=== PATIENT | female | born 1955 | race Caucasian/White ===

== ENCOUNTER 2023-10-23 09:35 | Outpatient (OUT) | payer MEDICARE, OTHER, SELFPAY ==
--- NOTE | 2023-10-23 09:37 | MM_ITS ---
Patient Name: MALCOM KNOWLES MR#: [id number] : 1955 Exam Date: 10/23/2023 Ordering Doctor: DR. JOSE SNOW . RADIOLOGY REPORT PROCEDURE: MM SCREENING MAMMO BI COMPARISON: MG MAMM SCREEN 3D DORIE CAD, 10/11/2022. MG MAMM SCREEN 3D DORIE CAD, 10/09/2021. MG MAMM SCREEN DORIE W CAD, 10/06/2020. MG MAMM DORIE DIAG W CAD DIG, 08/17/2013. INDICATIONS: Screening Calculator Name NCI Breast Cancer Risk Assessment Tool 5 Year Breast Cancer Risk 1.50% Lifetime Breast Cancer Risk 4.50% Personal Breast Cancer No Personal Ovarian Cancer No Treatments Hysterectomy Family Cancers Father with prostate cancer at age 66. LOCATION: [facility] BREAST COMPOSITION: Scattered areas fibroglandular density. FINDINGS: DIAGNOSTIC CATEGORY 0--INCOMPLETE: NEED ADDITIONAL IMAGING EVALUATION. RIGHT BREAST: No significant suspicious finding. Stable slightly prominent subareolar ducts. No significant change has occurred. LEFT BREAST: Multiple new lobular/serpiginous opacities within the upper inner and upper outer quadrants, with the largest nodular area 1.0 cm in size. Spot magnification views and ultrasound evaluation recommended. RECOMMENDATIONS: ADDITIONAL MAMMOGRAPHIC VIEWS REQUIRED: LEFT BREAST - LEFT CRANIOCAUDAL SPOT MAGNIFICATION VIEW - LEFT OBLIQUE SPOT MAGNIFICATION VIEW - ULTRASOUND: LEFT BREAST PLEASE NOTE: A NORMAL MAMMOGRAM DOES NOT EXCLUDE THE POSSIBILITY OF BREAST CANCER. A CLINICALLY SUSPICIOUS PALPABLE LUMP SHOULD BE BIOPSIED. Dictated by: Toni Brady M.D. on 10/29/2023 at 12:37 Approved by: Toni Brady M.D. on 10/29/2023 at 12:43
== END 2023-10-23 09:36 | disposition home or self-care (01) ==
LOC: MAMMO 09:35
PROVIDERS: PCP Family Medicine; Visit Provider Family Medicine
DX: Z12.31 Encounter for screening mammogram for malignant neoplasm of breast (principal); Z80.42 Family history of malignant neoplasm of prostate
CPT/HCPCS: 77067

== ENCOUNTER 2023-11-21 14:01 | Outpatient (OUT) | payer MEDICARE, OTHER, SELFPAY ==
--- NOTE | 2023-11-21 14:05 | MM_ITS ---
Patient Name: MALCOM KNOWLES MR#: [id number] : 1955 Exam Date: 11/21/2023 Ordering Doctor: DR. JOSE SNOW . RADIOLOGY REPORT PROCEDURE: MM DIAGNOSTIC MAMMO UNILAT LT, 11/21/2023, 14:04 US BREAST LT LIMITED, 11/21/2023, 14:38 COMPARISON: MM SCREENING MAMMO BI, 10/23/2023. MG MAMM SCREEN 3D DORIE CAD, 10/11/2022. MG MAMM SCREEN 3D DORIE CAD, 10/09/2021. MG MAMM SCREEN DORIE W CAD, 10/06/2020. INDICATIONS: Abn Mammogram Calculator Name NCI Breast Cancer Risk Assessment Tool 5 Year Breast Cancer Risk 1.50% Lifetime Breast Cancer Risk 4.50% Personal Breast Cancer No Personal Ovarian Cancer No Treatments Hysterectomy Family Cancers Father with prostate cancer at age 66. LOCATION: [facility] BREAST COMPOSITION: Scattered areas fibroglandular density. FINDINGS: DIAGNOSTIC CATEGORY 3--PROBABLY BENIGN FINDING. THE FOLLOWING FINDING(S) HAS A HIGH PROBABILITY OF A BENIGN ETIOLOGY: LEFT BREAST: Spot magnification views demonstrate persistence of asymmetries within the anterior upper inner and upper outer quadrants. Ultrasound evaluation demonstrates collection of benign appearing cysts at the 10 o'clock position; largest is 7 millimeters. Short segment of slightly dilated duct at the 2 o'clock position without internal debris or mass. Follow-up mammography and ultrasound of left breast in 6 months is recommended to document stability. RECOMMENDATIONS: SHORT TERM FOLLOW-UP DIAGNOSTIC MAMMOGRAM LEFT BREAST IN 6 MONTHS. SHORT TERM FOLLOW-UP ULTRASOUND LEFT BREAST IN 6 MONTHS. PLEASE NOTE: A NORMAL MAMMOGRAM DOES NOT EXCLUDE THE POSSIBILITY OF BREAST CANCER. A CLINICALLY SUSPICIOUS PALPABLE LUMP SHOULD BE BIOPSIED. Dictated by: Toni Brady M.D. on 11/21/2023 at 15:25 Approved by: Toni Brady M.D. on 11/21/2023 at 15:31
--- OUTSIDE RECORDS SUMMARY | 2023-11-21 14:05 | XMS_ITS | CCD ---
Author Name Unknown Address [address] [place] [address] Organization [facility] Care Team Providers Care Pest Control Pilot Name Role Phone Dusty Walters Unavailable Unavailable Unavailable Chip Zaidi Unavailable Lizandro Martins Unavailable Selena, Dr. Dusty Zacarias Primary Care Unavailab Gadiel Maxwell Attending Unavailable Gadiel Merino Referring Unavailable WALTERS ., DR DUSTY Seals Attending Unavailable WALTERS ., DR DUSTY Seals Admitting Unavailable WALTERS ., DR DUSTY Seals Primary Care Unavailable WALTERS ., DR DUSTY Seals Consulting Unavailable WALTERS ., DR DUSTY Seals Primary Care Unavailable MISC, DR ROSAS Consulting Unavailable MISC, DR ROSAS Attending Unavailable MISC, DR ROSAS Admitting Unavailable WALTERS ., DR DUSTY Seals Attending Unavailable WALTERS ., DR DUSTY Seals Admitting Unavailable WALTERS ., DR DUSTY Seals Primary Care Unavailable WALTERS ., DR DUSTY Seals Consulting Unavailable WALTERS ., DR DUSTY Seals Attending Unavailable WALTERS ., DR DUSTY Seals Primary Care Unavailable WALTERS ., DR DUSTY Seals Consulting Unavailable WALTERS ., DR DUSTY Seals Admitting Unavailable WALTERS ., DR DUSTY Seals Attending Unavailable WALTERS ., DR DUSTY Seals Admitting Unavailable WALTERS ., DR DUSTY Seals Primary Care Unavailable MONSERRAT .CONNER Attending Unavailable WALTERS ., DR DUSTY Seals Primary Care Unavailable DEEPA .DONELL Consulting Unavailsharri GERMAN .CONNER Admitting Unavailable NIALL CELIS Consulting Unavailable FLORIN ZHONG Consulting Unavailable THONY JOHNSTON Consulting Unavailable WALTERS ., DR DUSTY Seals Primary Care Unavailable JN, DR ADAMS Montesinos Consulting Unavailable MARKER ., DR ZAPATA Attending Unavailable MARKER ., DR ZAPATA Admitting Unavailable MARKER ., DR ZAPATA Consulting Unavailable WALTERS ., DR DUSTY Seals Primary Care Unavailable ENID, DR AJ Montesinos Consulting Unavailable ROSSI, DR AJ Montesinos Attending Unavailable ROSSI, DR AJ Montesinos Admitting Unavailable THONY CLARK Consulting Unavailable WALTERS ., DR DUSTY Seals Primary Care Unavailable PAY ., DR NOBLE Attending Unavailable ROSSI, DR AJ Montesinos Consulting Unavailable PAY ., DR NOBLE Admitting Unavailable PATTIE ., OSMEL Consulting Unavailable HECTOR, AJ Attending Unavailable WALTERS ., DR DUSTY Seals Primary Care Unavailable BEJ, AJ Admitting Unavailable ZIEBER, DR ADAMS Montesinos Consulting Unavailable BEJ, AJ Consulting Unavailable MISC, DR ROSAS Consulting Unavailable MISC, DR ROSAS Attending Unavailable WALTERS ., DR DUSTY Seals Primary Care Unavailable MISC, DR ROSAS Admitting Unavailable ZIEBER, DR ADAMS Montesinos Consulting Unavailable WALTERS ., DR DUSTY Seals Consulting Unavailable WALTESR ., DR DUSTY Seals Attending Unavailable WALTERS ., DR DUSTY Seals Admitting Unavailable WALTERS ., DR DUSTY Seals Primary Care Unavailable GEYSER, DR NIALL Underwood Consulting Unavailable BEJ, AJ Admitting Unavailable WALTERS ., DR DUSTY Seals Primary Care Unavailable BEJ, AJ Consulting Unavailable BEJ, AJ Attending Unavailable Felix Easley Primary Care Physician Brigida George Unavailable Tanika Lopez Unavailable MD Dusty Walters Primary Care Provider MD Lizandro Martins Attending Provider DARRICK Pal Attending Provider [phone] Anjana Pal Unavailable Lizandro Martins Admitting Unavailable Lizandro Martins Attending Unavailable Dusty Walters Primary Care Unavailable Anjana Pal Admitting Unavailable Anjana Pal Attending Unavailable Dusty Walters Primary Care Unavailable Felix Easley Attending Unavailable VEDA WILLOUGHBY Attending Unavailab CHIP Burgess Referring Unavailable Magui Sam Attending Unavailable CHIP ZAIDI Referring Unavailable Felix Easley Attending Unavailable Felix Easley Admitting Unavailable Mariangel Campbell Admitting Unavailable Mariangel Campbell Attending Unavailable Felix Easley Attending Unavailable Mariangel Campbell Attending Unavailable Mariangel Campbell Attending Unavailable Allergies Allergy Classification Reported Allergen(s) Allergy Type Date of Onset Reaction(s) Facility (5 sources) Sulfonamides (Antibiotic); Translations: [Sulfa Drugs] Allergy to drug (finding) Unknown (qualifier value) [facility] (2 sources) FLU; Translations: [FLU] Allergy to drug (finding) [facility] 250 DO Work Phone: (9 sources) Sulfonamides (Antibiotic) Drug allergy Unknown [facility] [employer] Other (9 sources) Influenza Vac Recom CARREON Quad PF Drug allergy Unknown [facility] [employer] Other (2 sources) Sulfonamides (Antibiotic) Drug allergy (disorder) [facility] (2 sources) Flu Vaccine [id number] (3 yr +) Drug allergy (disorder) 01-18-20 16 [facility] (3 sources) Sulfonamides (Antibiotic); Translations: [Sulfa (Sulfonamide Antibiotics)] Allergy to substance 03-31-20 19 Rash [facility] (3 sources) Influenza Virus Vaccines; Translations: [Influenza Virus Vaccines] Allergy to substance 03-31-20 19 Hx. [place] ; told no flu vaccines [facility] (1 source) influenza A virus A//[id number] (H1N1) antigen / influenza A virus A//[id number] (H3N2) antigen / influenza B virus B/Winn antigen / influenza B virus B/ antigen; Translations: [influenza virus vaccine] Drug Allergy [facility] Comment on above: contraindicated due to timbo townsend (1 source) influenza virus vaccine, inactivated; Translations: [influenza virus vaccine, inactivated] Propensity to adverse reactions (disorder) [facility] Rep[facility] Medications Current Medications Medication Drug Class(es) Dates Sig (Normalized) Sig (Original) acetaminophen 500 mg oral tablet (18 sources) Start: 05-16-2023 take 2 tablets by mouth once daily acetaminophen 500 mg Tab 1,000 mg = 2 tab(s), Oral, Daily, Refills(s) 0 Start Date: 05/16/23 Status: Ordered Start: 05-16-2023 acetaminophen 500 mg Tab Refills(s) 0 Start Date: 05/16/23 Status: Ordered Start: 04-09-2019 take 325 mg by mouth every four hours Acetaminophen Active 325 MG PO Q4H 100 April 09, 2019 12:00am Start: 03-31-2019 End: 04-09-2019 take 650 mg by mouth every four hours Acetaminophen Active 650 MG PO Q4H 0 April 09, 2019 12:00am Start: 06-29-2018 End: 04-09-2019 take 1 tablet by mouth three times daily Acetaminophen (Tylenol Extra Strength) 500 mg Tablet Discontinued 500 MG PO Three times daily June 29, 2018 12:00am April 09, 2019 9:42am Start: 03-13-2018 End: 06-27-2018 take 325 mg by mouth every four hours Acetaminophen Discontinued 325 MG PO Q4H 100 March 13, 2018 12:00am June 27, 2018 10:38am Start: 03-13-2018 End: 06-27-2018 take 650 mg by mouth every four hours Acetaminophen Discontinued 650 MG PO Q4H 0 March 13, 2018 12:00am June 27, 2018 10:38am Start: 02-18-2018 End: 03-06-2018 take 2 tablets by mouth three times daily Acetaminophen (Tylenol Extra Strength) 500 mg Tablet Discontinued 2 TAB PO Three times daily February 18, 2018 12:00am March 06, 2018 12:28pm take 1 tablet by fermín th twice daily Acetaminophen 500 MG Oral Tablet Take 1 tablet twice daily Quantity: 0 Refills: 0 Ordered: 12-Mar-2022 DO Active acetaminophen 325 mg / oxyCODONE hydrochloride 5 mg oral tablet (12 sources) Opioid Agonist Start: 09-09-2023 take 1 tablet by mouth every six hours as needed for pain acetaminophen-oxycodone 325 mg-5 mg Tab 1 tab(s), Oral, q6hr, Refill(s) 0, as needed for pain Start Date: 09/09/23 Status: Ordered Start: 05-16-2023 take 1 tablet by fermín th every six hours for pain acetaminophen-oxycodone 300 mg-5 mg oral tablet 1 tab(s), Oral, q6hr for pain, Refill(s) 0 Start Date: 05/16/23 Status: Ordered Start: 12-25-2021 take 1 tablet by fermín th every six hours as needed oxyCODONE-Acetaminophen 5-325 MG Oral Tablet TAKE 1 TABLET BY MOUTH EVERY 6 HOURS NEEDED Quantity: 18 Refills: 0 Ordered: 25-Dec-2021 DO Start : 25-Dec-2021 Active Start: 03-06-2018 End: 06-27-2018 take 2 tablets by mouth every four hours Oxycodone-Acetaminophen Discontinued 2 TAB PO Q4H 0 March 13, 2018 12:00am June 27, 2018 10:44am Start: 03-06-2018 End: 03-13-2018 take 1 tablet by mouth every three hours Oxycodone-Acetaminophen Discontinued 1 TAB PO Q3H March 06, 2018 12:00am March 13, 2018 10:20am Alpha Lipoic Acid 200 MG (9 sources) take 3 capsules by mouth once daily Alpha Lipoic Acid 200 MG 3 capsules Orally once a day Active Alpha Lipoic Acid 600 mg oral capsule (1 source) Start: 023 take 1 capsule by mouth once daily Alpha Lipoic Acid 600 mg oral capsule 600 mg = 1 cap(s), Oral, Daily, Refills(s) 0 Start Date: 09/09/23 Status: Ordered ascorbic acid 113 mg / copper gluconate 0.4 mg / docosahexaenoic acid 87.5 mg / eicosapentaenoic acid 163 mg / lutein 2.5 mg / tocopherol acetate 100 unt / zeaxanthin 0.5 mg / zinc oxide 17.4 mg oral capsule (9 sources) Vitamin C PreserVision ARE DS 2 - as directed Orally Active aspirin 81 mg chewable tablet (18 sources) Platelet Aggregation Inhibitor, Nonsteroidal Anti-inflammatory Drug Start: 018 End: 019 take 81 mg by mouth once daily Aspirin Active 81 MG PO Daily April 09, 2019 12:00am Start: 06-27-2018 End: 06-30-2018 take 325 mg by mouth once daily Aspirin,Buffd-Calcium Carb-Mag Discontinued 325 MG PO Daily June 27, 2018 12:00am June 30, 2018 9:36am Start: 03-06-2018 End: 06-27-2018 take 81 mg by mouth twice daily Aspirin Discontinued 81 MG PO Twice martina y March 13, 2018 12:00am June 27, 2018 10:38am Start: 02-18-2018 End: 03-13-2018 take 325 mg by mouth once daily Aspirin,Buffd-Calcium Carb-Mag Discontinued 325 MG PO Daily February 18, 2018 12:00am March 13, 2018 10:19am take 1 tablet by fermín th every twenty-four hours Aspirin Adult Low Dose 81 MG 1 tablet Orally Once a day Not-Taking atorvastatin 80 mg oral tablet (17 sources) HMG-CoA Reductase Inhibitor Start: 05-16-2023 take 1 tablet by mouth once daily atorvastatin 80 mg Tab 80 mg = 1 tab(s), Oral, Daily, Refills(s) 0 Start Date: 05/16/23 Status: Ordered Start: 06-30-2018 End: 04-09-2019 take 80 mg by mouth once daily in the evening Atorvastatin Active 80 MG PO Every evening April 09, 2019 12:00am biotin 10 mg oral tablet (16 sources) Start: 09-09-2023 take 1 tablet by mouth twice daily biotin 10 mg oral tablet 10 mg = 1 tab(s), Oral, BID, # 30 tab(s), Refills(s) 0 Start Date: 09/09/23 Status: Ordered Start: 06-27-2018 End: 04-09-2019 take 21151 ug by mouth twice daily Biotin Discontinued 61632 MCG PO Twice daily June 27, 2018 12:00am April 09, 2019 9:42am Start: 02-18-2018 End: 03-13-2018 take 1000 ug by mouth twice daily Biotin Discontinued 1000 MCG PO Twice daily February 18, 2018 12:00am March 13, 2018 10:19am take 1 tablet by fermín th twice daily Biotin 38231 MCG 1 tablet Orally twice a day Active take 1 tablet by fermín th every twelve hours Biotin 1000 MCG 1 tablet Orally twice a day Active take 1 tablet by fermín th once daily Biotin 1000 MCG Oral Tablet Chewable Take 1 tablet daily Quantity: 0 Refills: 0 Ordered: 12-Mar-2022 DO Active calcium carbonate 750 mg chewable tablet (17 sources) Start: 09-09-2023 Tums Chewy Bit es 750 mg oral tablet, chewable 1,500 mg = 2 tab(s), Chewed, Bedtime, Refills(s) 0 Start Date: 09/09/23 Status: Ordered Start: 04-09-2019 take 1000 mg by mout h twice daily Calcium Carbonate Active 1000 MG PO Twice daily 60 April 09, 2019 12:00am Start: 03-13-2018 End: 06-27-2018 take 1000 mg by mouth three times daily Calcium Carbonate Discontinued 1000 MG PO Three times daily 100 March 13, 2018 12:00am June 27, 2018 10:53am Start: 02-18-2018 End: 03-13-2018 take 2 tablets by mouth once daily Calcium Carbonate (Tums) 300 mg (750 mg) Tablet,Chewable Discontinued 2 TAB PO Daily February 18, 2018 12:00am March 13, 2018 10:19am Takes SUGAR FREE Tums Tums E-X 750 MG CHEW TAKE 1 TABLET Bedtime Quantity: 0 Refills: 0 Ordered: 04-Apr-2023 DO Active cetirizine hydrochloride 5 mg oral tablet (17 sources) Histamine-1 Receptor Antagonist Start: 05-16-2023 take 1 tablet by mouth once daily cetirizine 5 mg oral tablet 5 mg = 1 tab(s), Oral, Daily, Refills(s) 0 Start Date: 05/16/23 Status: Ordered Start: 06-27-2018 End: 04-09-2019 take 10 mg by mouth once daily Cetirizine Discontinued 10 MG PO Daily June 27, 2018 12:00am April 09, 2019 9:42am Start: 02-18-2018 End: 03-13-2018 take 10 mg by mouth once daily Cetirizine Discontinued 10 MG PO Daily February 18, 2018 12:00am March 13, 2018 10:19am take 1 tablet by fermín every twenty-four hours Cetirizine HCl 10 MG 1 tablet Orally Once a day Active cholecalciferol 0.025 mg oral tablet (20 sources) Vitamin D Start: 04-09-2019 take 1 tablet by mouth three times daily Cholecalciferol (Vitamin D3) (Vitamin D3) 1,000 unit Tablet Active 1000 UNIT PO Three times daily April 09, 2019 12:00am Start: 03-16-2019 End: 04-09-2019 take 1 capsule by mouth three times daily Cholecalciferol (Vitamin D3) (Vitamin D3) 1,000 unit Capsule Discontinued 1000 UNIT PO Three times daily March 16, 2019 12:00am April 09, 2019 9:42am Start: 03-13-2018 End: 03-16-2019 take 3 tablets by mouth once daily Cholecalciferol (Vitamin D3) (Vitamin D3) 1,000 unit tablet Discontinued 3000 UNIT PO Daily June 27, 2018 10:44am March 16, 2019 2:38pm Start: 02-18-2018 End: 03-13-2018 take 3 capsules by mouth once daily Cholecalciferol (Vitamin D3) (Vitamin D3) 1,000 unit Capsule Discontinued 3000 UNIT PO Daily 0 March 06, 2018 12:29pm March 13, 2018 10:19am take 1 tablet by fermín th every twenty-four hours Vitamin D (Cholecalciferol) 25 MCG (1000 UT) 1 tablet Orally Once a day Active ciprofloxacin 500 mg oral tablet (1 source) Quinolone Antimicrobial Start: 05-16-2023 End: 05-23-2023 take 1 tablet by mouth every twelve hours Cipro 500 mg Tab 500 mg = 1 tab(s), Oral, q12hr, X 7 day(s), # 14 tab(s), Refills(s) 0, Pharmacy: [facility], 158, cm, 05/16/23 14:43:00 EDT, Height/Length Dosing, 130.6, kg, 05/16/23 14:43:00 EDT, Weight Dosing Start Date: 05/16/23 Stop Date: 05/23/23 Status: Ordered clopidogrel 75 mg oral tablet (19 sources) [id number] Platelet Inhibitor Start: 05-16-2023 take 1 tablet by mouth once daily Plavix 75 mg Tab 75 mg = 1 tab(s), Oral, Daily, Refills(s) 0 Start Date: 05/16/23 Status: Ordered Start: 03-16-2019 End: 04-19-2020 take 75 mg by mouth once daily Clopidogrel Discontinue d 75 MG PO Daily April 09, 2019 12:00am April 19, 2020 2:56pm cranberry preparation 450 mg oral tablet (11 sources) Non-Standardized Food Allergenic Extract, Non-Standardized Plant Allergenic Extract Start: 05-16-2023 take 1 tablet by mouth once daily Cranberry oral tablet See Instructions, Refill(s) 0, 450mg orally once a day Start Date: 05/16/23 Status: Ordered Start: 05-16-2023 Cranberry oral tablet Refill(s) 0 Start Date: 05/16/23 Status: Ordered Cranberry Concen trate 500 MG as directed Orally Active diclofenac sodium 0.01 mg/mg topical gel (15 sources) Nonsteroidal Anti-inflammatory Drug Start: 04-09-2019 apply 1 g topically twice daily Diclofenac Sodium Active 1 GM TOPICAL Twice daily 5 April 09, 2019 12:00am Start: 03-16-2019 End: 03-16-2019 Diclofenac Sodium Discontinu ed March 16, 2019 12:00am March 16, 2019 2:45pm Start: 04-01-2018 End: 04-09-2019 apply 1 g topically twice daily Diclofenac Sodium (Vol sowmya) 1 % gel Discontinued 1 GM TOPICAL Twice daily March 31, 2019 3:57pm April 09, 2019 9:42am Start: 03-13-2018 End: 03-31-2019 apply 1 g topically once daily Diclofenac Sodium (Volt aren) 1 % Gel Discontinued 1 GM TOPICAL Daily 10 March 13, 2018 12:00am March 31, 2019 3:57pm to be used 1 - 2 times daily Start: 02-18-2018 End: 03-13-2018 apply 1 g topically once daily Diclofenac Sodium Disco ntinued 1 GM TOPICAL Daily February 18, 2018 12:00am March 13, 2018 10:19am docusate sodium 100 mg oral capsule (19 sources) Start: 05-16-2023 take 1 capsule by [facility] once daily as needed for constipation Colace 100 mg Cap 100 mg = 1 cap(s), Oral, Daily, PRN for constipation, # 20 cap(s), Refills(s) 0 Start Date: 05/16/23 Status: Ordered Start: 04-09-2019 take 100 mg by mouth twice daily Docusate Sodium Active 100 MG PO Twice daily 60 April 09, 2019 12:00am Start: 03-16-2019 End: 04-09-2019 take 1 capsule by mouth once daily Docusate Sodium (Colace) 100 mg Capsule Discontinued 100 MG PO Daily March 16, 2019 12:00am April 09, 2019 9:42am Start: 03-13-2018 End: 06-27-2018 take 100 mg by mouth twice daily Docusate Sodium Discontinued 100 MG PO Twice daily 60 March 13, 2018 12:00am June 27, 2018 10:41am donepezil hydrochloride 10 mg oral tablet (13 sources) Start: 03-28-2022 take 1 tablet by mouth twice daily donepezil 10 mg Tab 10 mg = 1 tab(s), Oral, BID, Refills(s) 0 Start Date: 05/16/23 Status: Ordered 0.5 ml dulaglutide 3 mg/ml auto-injector (12 sources) GLP-1 Receptor Agonist Start: 09-09-2023 inject 1.5 mg by subcutaneous injection every week Trulicity Pen 1.5 mg/0.5 mL subcutaneous solution 1.5 mg, SubCutaneous, qWeek, # 12 EA, Refills(s) 0, Pharmacy: [facility], 158, cm, 09/09/23 16:01:00 EDT, Height/Length Dosing, 130.6, kg, 09/09/23 16:01:00 EDT, Weight Dosing Start Date: 09/09/23 Status: Ordered Start: 05-16-2023 Trulicity Pen 1.5 mg/0.5 mL subcutaneous solution Refills(s) 0 Start Date: 05/16/23 Status: Ordered famotidine 20 mg oral tablet (20 sources) Histamine-2 Receptor Antagonist Start: 09-09-2023 take 1 tablet by mouth once daily at bedtime famotidine 20 mg Tab 20 mg = 1 tab(s), Oral, Once a day (at bedtime), Refills(s) 0 Start Date: 09/09/23 Status: Ordered Start: 06-27-2018 End: 04-09-2019 take 20 mg by mouth twice daily Famotidine Active 20 M G PO Twice daily 60 April 09, 2019 12:00am Start: 06-03-2018 take 1 tablet by fermín every twenty-four hours Famotidine 20 MG 1 tablet at bedtime Orally Once a day Jun, Active Start: 02-18-2018 End: 06-27-2018 take 40 mg by mouth once daily at bedtime Famotidine Discontinued 40 MG PO Daily at bedtime March 13, 2018 12:00am June 27, 2018 10:44am fluconazole 150 mg oral tablet (3 sources) Azole Antifungal Start: 04-01-2023 Fluconazole 1 50 MG 1 tablet Orally once, repeat dose in 72 hours if needed for 2 days Jul, Active Freestyle Bang 2 sensors (1 source) Start: 07-15-2023 Freestyle LIbr e 2 sensors Freestyle Bang 2 sensors, See Instructions, 1 EA, 4, One box of sensors, Supply Start Date: 07/15/23 Status: Ordered furosemide 40 mg oral tablet (16 sources) Loop Diuretic Start: 05-16-2023 take 1 tablet by mouth once daily furosemide 40 mg Tab 40 mg = 1 tab(s), Oral, Daily, Refills(s) 0 Start Date: 05/16/23 Status: Ordered Start: 05-15-2022 furosemide 40 mg Tab Refills(s) 0 Start Date: 05/16/23 Status: Ordered Start: 02-18-2018 End: 03-16-2019 take 40 mg by mouth once daily Furosemide Discontinued 40 MG PO DAILY@0630 March 13, 2018 12:00am March 16, 2019 2:42pm gabapentin 600 mg oral tablet (19 sources) Anti-epileptic Agent Start: 05-16-2023 take 1 tablet by mouth three times daily gabapentin 600 mg Tab 600 mg = 1 tab(s), Oral, TID, Refills(s) 0 Start Date: 05/16/23 Status: Ordered Start: 02-18-2018 End: 04-09-2019 take 600 mg by mouth three times daily at bedtime Gabapentin Discontinued 600 MG PO Three times daily March 13, 2018 12:00am April 09, 2019 9:42am Morning, afternoon and bedtime. take 1 capsule by mo [facility] every eight hours Gabapentin 300 MG 1 capsule Orally Three times a day Active glimepiride 2 mg oral tablet (17 sources) Sulfonylurea Start: 05-16-2023 take 1 tablet by mouth once daily glimepiride 2 mg Tab 2 mg = 1 tab(s), Oral, Daily, Refills(s) 0 Start Date: 05/16/23 Status: Ordered Start: 03-16-2019 End: 04-09-2019 take 2 mg by mouth once daily in the morning Glimepiride Active 2 MG PO Every morning April 09, 2019 12:00am glucosamine hydrochloride 1500 mg oral tablet (1 source) Start: 09-09-2023 take 2 tablets by mouth once daily at bedtime glucosamine hydrochloride 1500 mg oral tablet See Instructions, Refill(s) 0, 2 tab(s) Oral Daily at bedtime Start Date: 09/09/23 Status: Ordered hydrocortisone 25 mg/ml rectal cream (1 source) Corticosteroid Start: 09-09-2023 hydrocortisone 2.5% Rectal Crm w/Appl 1 teresa, Rectal, BID, 30 gram, Refill(s) 0, us as needed Start Date: 09/09/23 Status: Ordered hydrOXYzine pamoate 25 mg oral capsule (12 sources) Antihistamine Start: 03-31-2019 End: 04-09-2019 take 25 mg by mouth every three hours Hydroxyzine Pamoate Active 25 MG PO Q3H April 09, 2019 12:00am Start: 03-31-2019 End: 04-09-2019 take 50 mg by mouth every three hours Hydroxyzine Pamoate Discontinued 50 MG PO Q3H March 31, 2019 12:00am April 09, 2019 9:42am Start: 03-06-2018 End: 06-27-2018 take 25 mg by mouth every three hours Hydroxyzine Pamoate Discontinued 25 MG PO Q3H March 13, 2018 12:00am June 27, 2018 10:42am Start: 03-06-2018 End: 03-13-2018 take 50 mg by mouth every three hours Hydroxyzine Pamoate Discontinued 50 MG PO Q3H March 06, 2018 12:00am March 13, 2018 10:20am Insulin Aspart FlexPen 100 units/mL injectable solution (2 sources) Start: 05-16-2023 Insulin Aspart FlexPen 100 units/mL injectable solution See Instructions, test ac and hs and cover 150-200 4u, 210-250 4u, 251-300 6u, 301-350 8u, 351-400 10u, 401-1000 12u, Also inject 8u at lunch abd 10u at dinner regardless of readings and follow scale rest of time, Refills(s) 0 Start Date: 05/16/23 Status: Ordered Start: 05-16-2023 Insulin Aspart FlexPen 100 units/mL injectable solution Refills(s) 0 Start Date: 05/16/23 Status: Ordered 3 ml insulin aspart, human 100 unt/ml pen injector (8 sources) Insulin Analog Start: 04-09-2019 Insulin Aspart U-100 (Novolog Flexpen U-100 Insulin) 100 unit/mL (3 mL) Insulin Pen Active 0 UNITS SUBCUT 3X/Day with meals and bedtime April 09, 2019 12:00am Start: 03-13-2018 End: 06-27-2018 Insulin Aspart U-100 (Novolo g Flexpen U-100 Insulin) 100 unit/mL Insulin Pen Discontinued 0 UNITS SUBCUT 3X/Day with meals and bedtime March 13, 2018 12:00am June 27, 2018 10:42am NovoLOG FlexPen 100 UNIT/ML as directed Subcutaneous SLIDING SCALE 4 TIMES A DAY Active 3 ml insulin detemir 100 unt/ml pen injector (10 sources) Insulin Analog Start: 04-19-2020 inject 10 [IU] by subcutaneous injection once daily at bedtime Insulin Detemir U-100 (Levemir Flextouch U100 Insulin) 100 unit/mL (3 mL) Insulin Pen Active 10 UNIT SUBCUT Daily at bedtime April 19, 2020 11:07am Start: 04-09-2019 End: 04-19-2020 Insulin Detemir U-100 (Levem ir Flextouch U-100 Insuln) 100 unit/mL (3 mL) Insulin Pen Discontinued 20 UNITS SUBCUT Every morning April 09, 2019 12:00am April 19, 2020 3:13pm Start: 04-09-2019 End: 04-19-2020 Insulin Detemir U-100 (Levem ir Flextouch U-100 Insuln) 100 unit/mL (3 mL) Insulin Pen Discontinued 14 UNITS SUBCUT Daily at bedtime April 09, 2019 12:00am April 19, 2020 3:13pm Start: 03-13-2018 End: 06-27-2018 Insulin Detemir U-100 (Levem ir Flextouch U-100 Insuln) 100 unit/mL (3 mL) Insulin Pen Discontinued 18 UNITS SUBCUT Daily at bedtime March 13, 2018 12:00am June 27, 2018 10:42am 3 ml insulin glargine 100 unt/ml pen injector (20 sources) Insulin Analog Start: 05-16-2023 Basaglar KwikP en 100 units/mL subcutaneous solution See Instructions, 30 unit(s) at bedtime, Refills(s) 0 Start Date: 05/16/23 Status: Ordered Start: 05-16-2023 Basaglar KwikP en 100 units/mL subcutaneous solution Refills(s) 0 Start Date: 05/16/23 Status: Ordered Start: 03-16-2019 End: 04-09-2019 inject 20 [IU] by subcutaneous injection twice daily Insulin Glargine Discontinued 20 UNITS SUBCUT Twice daily March 16, 2019 12:00am April 09, 2019 9:42am Start: 06-27-2018 End: 03-16-2019 inject 10 [IU] by subcutaneous injection once daily at bedtime Insulin Glargine Discontinued 10 UNIT SUBCUT Daily at bedtime 0 June 30, 2018 9:39am March 16, 2019 2:35pm Start: 06-03-2018 inject 10 [IU] by [place]appell bcutaneous injection twice daily Basaglar KwikPen 100 UNIT/ML 10 units Subcutaneous twice a day Jun, Active Start: 02-18-2018 End: 03-13-2018 inject 10 [IU] by subcutaneous injection at bedtime Insulin Glargine (Basaglar Kwikpen U-100 Insulin) 100 unit/mL (3 mL) Insulin Pen Discontinued 10 UNIT SUBCUT Bedtime 0 March 06, 2018 12:29pm March 13, 2018 10:20am Basaglar KwikPen 100 UNIT/ML 12 units Subcutaneous twice a day Active lisinopril 2.5 mg oral tablet (10 sources) Angiotensin Converting Enzyme Inhibitor Start: 03-16-2019 End: 04-09-2019 take 2.5 mg by mouth once daily Lisinopril Active 2.5 MG PO Daily April 09, 2019 12:00am Start: 02-18-2018 End: 06-30-2018 take 5 mg by mouth once daily Lisinopril Discontinued 5 MG PO Daily June 27, 2018 10:44am June 30, 2018 9:49am loperamide hydrochloride 2 mg oral tablet (1 source) Opioid Agonist Start: 09-09-2023 take 1 tablet by mouth once as needed Immodium A-D 2 mg Tab See Instructions, 1 tablet orally as neededafter each loose stool max 16 a day, Refills(s) 0 Start Date: 09/09/23 Status: Ordered loratadine 10 mg oral tablet (4 sources) Start: 04-09-2019 take 10 mg by mouth once daily Loratadine Active 10 MG PO Daily April 09, 2019 12:00am Start: 03-13-2018 End: 06-27-2018 take 10 mg by mouth once daily Loratadine Discontinued 10 MG PO Daily March 13, 2018 12:00am June 27, 2018 10:43am memantine hydrochloride 10 mg oral tablet (13 sources) O-hvbslh-U-aspartate Receptor Antagonist Start: 01-29-2022 take 1 tablet by mouth twice daily memantine 10 mg Tab 10 mg = 1 tab(s), Oral, BID, Refills(s) 0 Start Date: 05/16/23 Status: Ordered Milk of Magnesia (1 source) Start: 09-09-2023 take 2400 mg by mouth once daily as needed for constipation Milk of Magnesia 2,400 mg, Oral, Daily, as needed for constipation, Refills(s) 0 Start Date: 09/09/23 Status: Ordered MiraLax 17 GM/SCOOP (9 sources) MiraLax 17 GM/SCOOP as directed Orally Active Move Free Joint Health Advance - (9 sources) take 2 tablets by mouth once daily Move Free Joint Health Advance - 2 tablets Orally once a day Active Multivitamin With Folic Acid (Thera) 400 mcg Tablet (4 sources) Start: 04-09-2019 take 1 tablet by mouth once daily Multivitamin With Folic Acid (Thera) 400 mcg Tablet Active 1 TAB PO Daily April 09, 2019 12:00am Start: 03-13-2018 End: 06-27-2018 take 1 tablet by mouth once daily Multivitamin With Folic Acid (Thera) 400 mcg Tablet Discontinued 1 TAB PO Daily March 13, 2018 12:00am June 27, 2018 10:44am nitroglycerin 0.4 mg sublingual tablet (6 sources) Nitrate Vasodilator Start: 04-19-2020 nitroglycerin 0.4 mg sublingual Tab 0.4 mg = 1 tab(s), SubLingual, q5min, PRN for chest pain, # 100 tab(s), Refills(s) 0 Start Date: 05/16/23 Status: Ordered Normal saline (1 source) Saline Nasal Spr ay 0.65 % as directed Nasally Active ondansetron 4 mg oral tablet (2 sources) Serotonin-3 Receptor Antagonist Start: 05-16-2023 take 1 tablet by mouth every six hours ondansetron 4 mg Tab 4 mg = 1 tab(s), Oral, q6hr, Refills(s) 0 Start Date: 05/16/23 Status: Ordered 24 hr oxybutynin chloride 15 mg extended release oral tablet (13 sources) Cholinergic Muscarinic Antagonist Start: 03-09-2022 take 1 tablet by mouth once daily oxybutynin 15 mg ER Tab 15 mg = 1 tab(s), Oral, Daily, do not crush, Refills(s) 0 Start Date: 05/16/23 Status: Ordered oxyCODONE hydrochloride 5 mg oral tablet (6 sources) Opioid Agonist Start: 03-31-2019 End: 04-09-2019 take 5 mg by mouth every four hours Oxycodone Active 5 MG PO Every 4 hours 40 7 April 09, 2019 Start: 03-31-2019 End: 04-09-2019 take 10 mg by mouth every four hours Oxycodone Discontinued 10 MG PO Every 4 hours March 31, 2019 April 09, 2019 9:42am Physical therapy treat and evaluate, properly sized walker, (1 source) Start: 08-20-2023 Physical therapy treat and evaluate, properly sized walker, Physical therapy treat and evaluate, properly sized walker,, See Instructions, 1 EA, 0, see above, Supply Start Date: 08/20/23 Status: Ordered POLYETHYLENE GLYCOL 3350 (1 source) Osmotic Laxative Start: 09-09-2023 take 17 g by mouth once daily polyethylene glycol 3350 17 gm, Oral, Daily, Refill(s) 0, dissolve in 8ozs of water Start Date: 09/09/23 Status: Ordered PreserVision AREDS 2 (1 source) Start: 09-09-2023 PreserVision AREDS 2 1 tab(s), Chewed, Daily, Refill(s) 0 Start Date: 09/09/23 Status: Ordered sennosides, senior care 8.6 mg oral tablet (2 sources) Start: 04-09-2019 take 2 tablets by mouth once daily Sennosides (Senna Lax) 8.6 mg Tablet Active 2 TAB PO DAILY@12 30 April 09, 2019 12:00am Sodium Chloride (1 source) Start: 09-09-2023 Saline Mist 0.65% nasal spray See Instructions, Refill(s) 0, 1 spray each nostril every shift, may self administer Start Date: 09/09/23 Status: Ordered Thera M Plus - (9 sources) Thera M Plus - a s directed Orally Active Tylenol Extra Strength 500 MG (9 sources) Start: 06-03-2018 take 2 tablets by mouth once daily in the morning as needed Tylenol Extra Strength 500 MG 2 tablet as needed Orally once a day in the am Jun, Active 24 hr venlafaxine 150 mg extended release oral capsule (7 sources) Serotonin and Norepinephrine Reuptake Inhibitor Start: 05-16-2023 take 1 capsule by mouth once daily venlafaxine 150 mg Cap-ER 150 mg = 1 cap(s), Oral, Daily, Refills(s) 0 Start Date: 05/16/23 Status: Ordered Vitamin B 12 500 MCG (9 sources) take 2 tablets by mouth once daily Vitamin B 12 500 MCG 2 tablet Orally Once a day Active Vitamin B12 1000 mcg Tab (1 source) Start: 09-09-2023 take 1 tablet by mouth once daily Vitamin B12 1000 mcg Tab 1,000 mcg = 1 tab(s), Oral, Daily, Refills(s) 0 Start Date: 09/09/23 Status: Ordered Vitamin D-3 1000 UNIT (5 sources) take 1 capsule by mouth once daily Vitamin D-3 1000 UNIT 1 capsule Orally Once a day Active Vitamin D3 1000 intl units (25 mcg) Tab (1 source) Start: 09-09-2023 take 1 tablet by mouth once daily Vitamin D3 1000 intl units (25 mcg) Tab 25 mcg = 1 tab(s), Oral, Daily, Refills(s) 0 Start Date: 09/09/23 Status: Ordered zinc oxide 0.2 mg/mg topical ointment (1 source) Start: 09-09-2023 zinc oxide Top 20% Oint See Instructions, Refill(s) 0, apply topically to red areas on buttocks twice daily as needed Start Date: 09/09/23 Status: Ordered Completed/Discontinued Medications Medication Drug Class(es) Dates Sig (Normalized) Sig (Original) 24 hr buPROPion hydrochloride 300 mg extended release oral tablet (14 sources) Aminoketone Start: 02-18-2018 End: 04-09-2019 take 300 mg by mouth once daily Bupropion Hcl Discontinued 300 MG PO Daily June 27, 2018 10:44am April 09, 2019 9:42am Freestyle Bang 2 system (1 source) Start: 07-15-2023 Freestyle Bang 2 system Freestyle Bang 2 system, See Instructions, 1 EA, 0, pt to check BS 4 times per day, Supply Start Date: 07/15/23 Status: Ordered Uvirdbay-Infzh-Bsbac -Cf Borate (Compact Imaging) 750 mg-100 mg- 1.65 mg-108 mg Tablet (4 sources) Start: 06-27-2018 End: 04-09-2019 take 1 tablet by mouth once daily Uhesucmj-Mazxf-Hmuk u-Cf Borate (Compact Imaging) 750 mg-100 mg- 1.65 mg-108 mg Tablet Discontinued 2 TAB PO Daily June 27, 2018 12:00am April 09, 2019 9:42am Start: 02-18-2018 End: 03-06-2018 take 1 tablet by mouth once daily Nzhixndc-Gqvon-Fqoqn-Cf Borate (Move [employer]) 750 mg-100 mg- 1.65 mg-108 mg Tablet Discontinued 2 TAB PO Daily February 18, 2018 12:00am March 06, 2018 12:28pm glyBURIDE 5 mg oral tablet (6 sources) Sulfonylurea Start: 02-18-2018 End: 03-16-2019 take 5 mg by mouth once daily Glyburide Discontinued 5 MG PO Daily June 27, 2018 10:44am March 16, 2019 2:26pm Home health physical therapy evaluatoin and treatment (1 source) Start: 08-23-2023 Home health ph ysical therapy evaluatoin and treatment Home health physical therapy evaluatoin and treatment, See Instructions, 1 EA, 0, HH PT evaluation and treatment, Supply Start Date: 08/23/23 Status: Ordered HYLAN G-F 20 (20 sources) Start: 06-20-2017 Synvisc Jun 6 mL Start: 06-13-2017 Synvisc Jun 6 mL Start: 06-06-2017 Synvisc Jun 6 mL lidocaine 0.05 mg/mg medicated patch (1 source) Antiarrhythmic, Amide Local Anesthetic Start: 02-17-2022 Lidocaine 5 % External Patch APPLY DIRECTED. Quantity: 0 Refills: 0 Ordered: 17-Feb-2022 DO Start : 17-Feb-2022 Active linagliptin 5 mg oral tablet (2 sources) Dipeptidyl Peptidase 4 Inhibitor Start: 03-13-2018 End: 06-27-2018 take 1 tablet by mouth once daily Linagliptin (Tradjenta) 5 mg Tablet Discontinued 5 MG PO Daily March 13, 2018 12:00June 27, 2018 10:43am losartan potassium 25 mg oral tablet (6 sources) Angiotensin 2 Receptor Jus Start: 03-11-2022 take 0.5 tablet by mouth once daily Losartan Potassium 25 MG Oral Tablet TAKE 1/2 TABLET DAILY. Quantity: 45 Refills: 3 Ordered: 12-Mar-2022 Gadiel Merino MD Start : 11-Mar-2022 Active Magnesium (2 sources) Start: 03-16-2019 End: 03-16-2019 take 500 mg by mouth once daily Magnesium Discontinued 500 MG PO Daily March 16, 2019 12:00am March 16, 2019 2:44pm magnesium oxide 500 mg oral tablet (2 sources) Start: 02-18-2018 End: 03-13-2018 take 500 mg by mouth once daily Magnesium Oxide Discontinued 500 MG PO Daily February 18, 2018 12:00am March 13, 2018 10:20am metoprolol tartrate 25 mg oral tablet (10 sources) beta-Adrenergic Jus Start: 03-01-2022 Metoprolol Tartrate 25 MG Oral Tablet TAKE ONE HALF A TABLET TWICE DAILY Quantity: 45 Refills: 3 Ordered: 12-Mar-2022 Gadiel Merino MD Start : 01-Mar-2022 Active Start: 06-30-2018 End: 04-09-2019 take 12.5 mg by mouth twice daily Metoprolol Tartrate Active 12.5 MG PO Twice daily 60 April 09, 2019 12:00am take 0.5 tablet by m outh twice daily at mealtime Metoprolol Tartrate 25 MG 1/2 tablet with food Orally Twice a day Active Multi Vitamin Oral Tablet (1 source) take 1 tablet by mouth once daily Multi Vitamin Oral Tablet TAKE 1 TABLET DAILY. Quantity: 0 Refills: 0 Ordered: 12-Mar-2022 DO Active Multivitamin preparation (2 sources) Start: 03-16-2019 End: 04-09-2019 take 1 tablet by mouth once daily Multivitamin Discontinued 1 TAB PO Daily March 16, 2019 12:00am April 09, 2019 9:42am Us-Wvw-Gopkr-Calcium Carb-K1 (Women's 50 Plus Daily Formula) 400 mcg-500 mg calcium-20 mcg Tablet (4 sources) Start: 06-27-2018 End: 03-16-2019 take 1 tablet by mouth once daily Il-Mie-Jofmo-Calcium Carb-K1 (Women's 50 Plus Daily Formula) 400 mcg-500 mg calcium-20 mcg Tablet Discontinued 1 TAB PO Daily June 27, 2018 12:00am March 16, 2019 2:32pm Start: 02-18-2018 End: 03-13-2018 take 1 tablet by mouth once daily Uz-Gmd-Chnvc-Calcium Carb-K1 (Women's 50 Plus Daily Formula) 400 mcg-500 mg calcium-20 mcg Tablet Discontinued 1 TAB PO Daily February 18, 2018 12:00am March 13, 2018 10:20am Novolin L 100 UNIT/ML SUSP (1 source) Novolin L 100 UN IT/ML SUSP USE DIRECTED. Quantity: 0 Refills: 0 Ordered: 04-Apr-2023 DO Active OT EVALUATION (1 source) Start: 07-15-2023 OT EVALUATION OT EVALUATION, See Instructions, 1 EA, 0, evaluate and treat better fitting wheel chair, Supply Start Date: 07/15/23 Status: Ordered polyethylene glycol 400 4 mg/ml / propylene glycol 3 mg/ml ophthalmic solution (2 sources) Start: 06-27-2018 End: 04-09-2019 Peg 400-Propylene Glycol (Pf) (Systane (Pf)) 0.4-0.3 % Dropperette Discontinued 1 DROPS OPHTHALMIC As Directed June 27, 2018 12:00am April 09, 2019 9:42am potassium chloride 20 meq extended release oral tablet (11 sources) Start: 09-09-2023 take 1 tablet by mouth once daily potassium chloride 20 mEq ER Tab 20 mEq = 1 tab(s), Oral, Daily, Refills(s) 0 Start Date: 09/09/23 Status: Ordered Start: 03-13-2018 End: 03-16-2019 take 20 mEq by mouth once daily Potassium Chloride Discontinued 20 MEQ PO Daily June 27, 2018 12:00am March 16, 2019 2:43pm Start: 02-18-2018 End: 03-13-2018 take 20 mEq by mouth once daily Potassium Chloride Discontinued 20 MEQ PO Daily February 18, 2018 12:00am March 13, 2018 10:20am SITagliptin 50 mg oral tablet (4 sources) Dipeptidyl Peptidase 4 Inhibitor Start: 06-27-2018 End: 03-16-2019 take 50 mg by mouth once daily Sitagliptin Phosphate Discontinued 50 MG PO Daily June 27, 2018 12:00am March 16, 2019 2:45pm Start: 02-18-2018 End: 03-13-2018 take 1 tablet by mouth once daily Sitagliptin Phosphate (Januvia) 50 mg Tablet Discontinued 50 MG PO Daily February 18, 2018 12:00am March 13, 2018 10:20am Sugar Free Tums (2 sources) Start: 06-27-2018 End: 04-09-2019 take 2 tablets by mouth twice daily Sugar Free Tums Discontinued 2 TAB PO Twice daily June 27, 2018 12:00am April 09, 2019 9:42am thioctic acid 600 mg oral capsule (6 sources) Start: 06-27-2018 End: 04-09-2019 take 600 mg by mouth twice daily Alpha Lipoic Acid Discontinued 600 MG PO Twice daily June 27, 2018 12:00am April 09, 2019 9:42am Start: 02-18-2018 End: 03-06-2018 take 600 mg by mouth twice daily Alpha Lipoic Acid Discontinued 600 MG PO Twice daily February 18, 2018 12:00am March 06, 2018 12:28pm Alpha Lipoic Aci d 600 MG CAPS TAKE 1 CAPSULE Daily Quantity: 0 Refills: 0 Ordered: 12-Mar-2022 DO Active ticagrelor 90 mg oral tablet (4 sources) Start: 06-30-2018 End: 03-16-2019 take 1 tablet by mouth twice daily Ticagrelor (Brilinta) 90 mg Tablet Discontinued 90 MG PO Twice daily March 16, 2019 12:00am March 16, 2019 2:44pm triamcinolone acetonide 40 mg/ml injectable suspension (20 sources) Corticosteroid Start: 07-01-2023 Kenalog-40 Jun, 40 mg Start: 04-03-2017 Kenalog -40 mg April, 40 mg vitamin b12 1 mg oral tablet (12 sources) Vitamin B12 Start: 03-16-2019 End: 04-09-2019 take 1 tablet by mouth once daily Cyanocobalamin (Vitamin B-12) (Vitamin B-12) 1,000 mcg Tablet Discontinued 1000 MCG PO Daily March 16, 2019 12:00am April 09, 2019 9:42am Start: 03-13-2018 End: 03-16-2019 take 2 tablets by mouth once daily Cyanocobalamin (Vitamin B-12) (Vitamin B-12) 500 mcg tablet Discontinued 1000 MCG PO Daily June 27, 2018 10:44am March 16, 2019 2:40pm Start: 02-18-2018 End: 03-13-2018 take 1 tablet by mouth once daily Cyanocobalamin (Vitamin B-12) (Vitamin B-12) 1,000 mcg Tablet Discontinued 1000 MCG PO Daily February 18, 2018 12:00am March 13, 2018 10:19am take 1 tablet by fermín th once daily Vitamin B12 1000 MCG Oral Tablet Extended Release TAKE 1 TABLET DAILY DIRECTED. Quantity: 0 Refills: 0 Ordered: 12-Mar-2022 DO Active vitamin e 450 mg oral capsule (10 sources) Start: 02-18-2018 End: 04-09-2019 take 1000 [IU] by mouth once daily Vitamin E Discontinued 1000 UNIT PO Daily June 27, 2018 10:44am April 09, 2019 9:42am Problems Active Problems Problem Classification Problem Date Documented Date Episodic/Chronic Acute myocardial infarction (2 sources) Acute ST segment elevation myocardial infarction; Translations: [ST elevation (STEMI) myocardial infarction of unspecified site] 06-29-2018 Chronic Administrative/social admission (3 sources) Lives in a retirement; Translations: [Person living in residential institution] 03-07-2018 Episodic Cancer of uterus (1 source) Malignant neoplasm of uterus 09-04-2023 Chronic Chronic kidney disease (12 sources) Chronic kidney disease stage 3B ; Translations: [Chronic kidney disease, stage 3b] 03-07-2018 Chronic Coronary atherosclerosis and other heart disease (8 sources) Double coronary vessel disease; Translations: [Coronary atherosclerosis of unspecified type of vessel, [place] or graft] Onset: 08-29-2022 04-01-2019 Chronic Coronary atherosclerosis and other heart disease (2 sources) Patient post percutaneous transluminal coronary angioplasty; Translations: [Percutaneous transluminal coronary angioplasty status] Episodic Deficiency and other anemia (1 source) Other vitamin B12 deficiency anemias Episodic Deficiency and other anemia (2 sources) Anemia; Translations: [Anemia, unspecified] 03-07-2018 Episodic Diabetes mellitus with complications (18 sources) Type 2 diabetes mellitus with other diabetic arthropathy; Translations: [Type 2 diabetes mellitus with diabetic neuropathy, unspecified] Onset: 05-15-2022 Resolved: 05-15-2022 Chronic Diabetes mellitus without complication (19 sources) Diabetes mellitus; Translations: [Diabetes mellitus without mention of complication, type II or unspecified type, not stated as uncontrolled] Onset: 11-09-2022 Chronic Comment on above: Linked per outpaiten [facility] policy Disorders of lipid metabolism (19 sources) Hyperlipidemia; Translations: [Other and unspecified hyperlipidemia] Onset: 05-15-2022 Resolved: 05-15-2022 Chronic Essential hypertension (19 sources) Essential hypertension; Translations: [Unspecified essential hypertension] Onset: 05-15-2022 Resolved: 05-15-2022 Chronic Comment on above: Linked per outpaiten [facility] policy Fluid and electrolyte disorders (1 source) Hypokalemia Episodic Genitourinary symptoms and ill-defined conditions (13 sources) Incontinence without sensory awareness; Translations: [Urinary incontinence] Onset: 07-04-2022 Chronic Genitourinary symptoms and ill-defined conditions (5 sources) Dysuria; Translations: [Dysuria] Onset: 12-17-2022 Episodic Headache; including migraine (1 source) Migraine 09-04-2023 Chronic Hypertension with complications and secondary hypertension (1 source) Hypertensive chronic kidney disease with stage 1 through stage 4 chronic kidney disease, or unspecified chronic kidney disease; Translations: [HTN CKD W/STAGE 1-4 CKD/UNS CKD] Onset: 09-19-2022 Chronic Joint disorders and dislocations; trauma-related (4 sources) Unspecified dislocation of right shoulder joint, initial encounter; Translations: [Unspecified dislocation of right shoulder joint, subsequent encounter] Onset: 11-20-2022 Episodic Mood disorders (1 source) Major depression in full remission 09-09-2023 Chronic Mood disorders (4 sources) Mood disorders; Translations: [DEPRESSION UNSPECIFIED] Onset: 11-09-2022 Nutritional deficiencies (1 source) Vitamin D deficiency 09-04-2023 Chronic Occlusion or stenosis of precerebral arteries (1 source) Occlusion and stenosis of bilateral carotid arteries; Translations: [OCCLUSION AND STENOS DION CAROTID ART] Onset: 01-23-2023 Chronic Osteoarthritis (20 sources) Primary gonarthrosis, bilateral; Translations: [Bilateral primary osteoarthritis of knee] Chronic Other connective tissue disease (2 sources) History of total knee arthroplasty; Translations: [Presence of left artificial knee joint] 03-31-2019 Chronic Other diseases of kidney and ureters (2 sources) Renal impairment; Translations: [Disorder of kidney and ureter, unspecified] 03-07-2018 Episodic Other hereditary and degenerative nervous system conditions (1 source) Mild cognitive impairment, so stated; Translations: [MILD COGNTV IMPAIRMNT UNCRTN/UNKNWN] Onset: 12-22-2022 Chronic Other hereditary and degenerative nervous system conditions (1 source) Essential tremor 09-04-2023 Chronic Other nervous system disorders (9 sources) Neuropathy; Translations: [Polyneuropathy, unspecified] Chronic Other nervous system disorders (4 sources) Polyneuropathy, unspecified; Translations: [POLYNEUROPATHY UNSPECIFIED] Onset: 05-15-2022 Resolved: 05-15-2022 Chronic Other nervous system disorders (4 sources) Communicating hydrocephalus; Translations: [COMMUNICATING HYDROCEPHALUS] Onset: 01-18-2023 Chronic Other nervous system disorders (2 sources) Postoperative pain ; Translations: [Other acute postprocedural pain] 03-07-2018 Episodic Other nervous system disorders (1 source) Abnormal gait 09-04-2023 Episodic Other nervous system disorders (1 source) History of Guillain [place] syndrome 09-09-2023 Episodic Other non-traumatic joint disorders (1 source) Other specified joint disorders, left shoulder Episodic Other non-traumatic joint disorders (1 source) Pain in right shoulder Episodic Other non-traumatic joint disorders (1 source) Pain in left shoulder Episodic Other nutritional; endocrine; and metabolic disorders (13 sources) Morbid obesity; Translations: [Morbid obesity] 03-07-2018 Chronic Other nutritional; endocrine; and metabolic disorders (13 sources) Body mass index 40+ - severely obese; Translations: [Morbid obesity] 05-16-2023 Chronic Other nutritional; endocrine; and metabolic disorders (2 sources) Morbid (severe) obesity due to excess calories; Translations: [MORBID SEVERE OBES D/T EXCESS DEV] Onset: 01-21-2023 Chronic Other nutritional; endocrine; and metabolic disorders (2 sources) Obesity 05-16-2023 Chronic Other screening for suspected conditions (not mental disorders or infectious disease) (6 sources) Encounter for screening mammogram for malignant neoplasm of breast; Translations: [Protein level - finding] Onset: 10-11-2022 Episodic Peripheral and visceral atherosclerosis (1 source) Arteriosclerotic vascular disease 09-04-2023 Chronic Residual codes; unclassified (7 sources) Localized edema; Translations: [LOCALIZED EDEMA] Onset: 05-15-2022 Resolved: 05-15-2022 Episodic Residual codes; unclassified (2 sources) Patient encounter status; Translations: [Encounter for prophylactic measures, unspecified] 03-07-2018 Episodic Spondylosis; intervertebral disc disorders; other back problems (2 sources) Chronic back pain ; Translations: [Dorsalgia, unspecified] 03-07-2018 Episodic Unclassified (1 source) Pain in left shoulder; Translations: [Pain in left shoulder] Onset: 07-01-2023 Unclassified (1 source) Long-term current use of insulin 09-06-2023 Urinary tract infections (4 sources) Urinary tract infection, site not specified; Translations: [Acute cystitis without hematuria] Onset: 11-12-2022 04-01-2023 Episodic Past or Other Problems Problem Classification Problem Date Documented Da te Episodic/Chronic Cardiac dysrhythmias (1 source) Tachycardia, unspecified; Translations: [TACHYCARDIA UNSPECIFIED] Onset: 09-01-2022 Episodic Chronic kidney disease (4 sources) Chronic kidney disease; Translations: [CHRONIC KIDNEY DISEASE STAGE 3B] Onset: 05-15-2022 Resolved: 05-15-2022 E Codes: Fall (2 sources) Fall on same level from slipping, tripping and stumbling with subsequent striking against unspecified object, initial encounter; Translations: [Unspecified fall, initial encounter] Onset: 11-20-2022 Episodic Nonspecific chest pain (5 sources) Chest pain; Translations: [Chest pain, unspecified] Onset: 08-27-2022 Episodic Other aftercare (1 source) detention (current) use of aspirin; Translations: [STUDENT LIFE DEAN CURRENT USE OF ASPIRIN] Onset: 01-28-2023 Episodic Other aftercare (1 source) Other supervisor intermediates (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 therapy; Translations: [OTH STUDENT LIFE DEAN CURRENT DRUG THERAPY] Onset: 01-28-2023 Episodic Other aftercare (1 source) detention (current) use of insulin; Translations: [STUDENT LIFE DEAN CURRENT USE OF INSULIN] Onset: 01-28-2023 Episodic Other aftercare (1 source) detention (current) use of antithrombotics/ant iplatelets; Translations: [STUDENT LIFE DEAN ANTITHROMBOT/ANTIPL ATLETS] Onset: 08-29-2022 Episodic Other connective tissue disease (3 sources) Pain in right arm; Translations: [PAIN IN RIGHT ARM] Onset: 11-17-2022 Episodic Other injuries and conditions due to external causes (3 sources) Unspecified injury of left shoulder and upper arm, initial encounter; Translations: [UNS INJ LT SHOULDER UP ARM INITIAL] Onset: 01-24-2023 Episodic Residual codes; unclassified (1 source) Family history of malignant neoplasm of prostate; Translations: [FAMILY HX MALIG NEOPLASM PROSTATE] Onset: 10-18-2022 Episodic Superficial injury; contusion (6 sources) Contusion of left shoulder, initial encounter; Translations: [Contusion of unspecified front wall of thorax, initial encounter] Onset: 08-29-2022 Episodic Unclassified (2 sources) Never smoked tobacco; Translations: [Never a smoker] Results Test Name Value Interpretation Reference Range Facil ity RAD - CT Reporton 11-11-2023 RAD - CT Report [id number]#1.00TIFF [facility] RAD - CT Report [id number]#1.00TIFF [facility] RAD - MRI Reporton 3 RAD - MRI Report [id number]#1.00TIFF [facility] RAD - Ultrasound Reporton RAD - Ultrasound Report [id number]#1.00TIFF [facility] Long-Term Recordson 11-07 Long-Term Records [id number]#1.00TIFF Normal [facility] Home Health Recordson 2022 Home Health Records [id number]#1.00TIFF [facility] Home Health Recordson 2022 Home Health Records [id number]#1.00TIFF [facility] Outside Mammographyon 2022 Outside Mammography [id number]#1.00TIFF Normal [facility] Long-Term Recordson 10-28 Long-Term Records [id number]#1.00TIFF Normal [facility] Interdisciplinary Note - Soc ial Workeron 10-16-2023 Interdisciplinary Note - Real Property Appraiser This SW received a message regarding placement for patient at [facility] and daughter having questions. This SW made tc to pateint's daughter and apologized for the delayed response. Per daughter, patient is doing better at this time and sticking with her diet, so therefore she believes she has been able to lose some weight. She explained that patient has a follow up appointment on 11/20/23 and she wants to see what Dr. Easley says at that time. She is hopeful that fantasma can stay in her current [place] apartment and that she does not have to move her to . SW's direct line was provided and SW encouraged her to reach out should she have needs or questions. SW will remain available. Normal [facility] Home Health Recordson 2022 Home Health Records [id number]#1.00TIFF Normal [facility] Auto Diffon 10-01-2023 Basophils/100 WBC (Bld) 1.0 % Normal 0.0-2.0 [facility] Comment on above: Order Comment: Order Added by Discern Expert. Performed By: #### 2 696870, 712353080, 0090774, 8911529, 5949194, 07038317 #### [facility] [address] [place] [address] Basophils/Leukocyt es Auto (Bld) [Pure # fraction] 0.1 E9/L Normal 0.0-0.2 [facility] Comment on above: Order Comment: Order Added by Discern Expert. Performed By: #### 2 404296, 732620894, 6906186, 8102310, 9213712, 48856415 #### [facility] [address] [place] [address] Eosinophils/100 WBC (Bld) 5.3 % Normal 0.0-8.0 [facility] Comment on above: Order Comment: Order Added by Discern Expert. Performed By: #### 2 999421, 048407239, 1963762, 2842969, 2260769, 17240520 #### [facility] [address] [place] [address] Eosinophils/Leukoc ytes Auto (Bld) [Pure # fraction] 0.3 E9/L Normal 0.0-0.5 [facility] Comment on above: Order Comment: Order Added by Discern Expert. Performed By: #### 2 128568, 374431591, 7376629, 8677909, 3600278, 53358649 #### [facility] [address] [place] [address] Lymphocytes/100 WBC (Bld) 37.2 % Normal 14.0-50.0 [facility] Comment on above: Order Comment: Order Added by Discern Expert. Performed By: #### 2 667468, 870168127, 8806582, 4258767, 2786456, 39985138 #### [facility] [address] [place] [address] Lymphocytes/Leukoc ytes Auto (Bld) [Pure # fraction] 2.0 E9/L Normal 1.0-4.0 [facility] Comment on above: Order Comment: Order Added by Discern Expert. Performed By: #### 2 832437, 793701246, 1036896, 4533959, 7149218, 07018993 #### [facility] [address] [place] [address] Monocytes/100 WBC (Bld) 10.7 % Normal 4.0-14.0 [facility] Comment on above: Order Comment: Order Added by Discern Expert. Performed By: #### 2 752156, 817545414, 9628851, 3274001, 9192792, 11563334 #### [facility] [address] [place] [address] Monocytes/Leukocyt es Auto (Bld) [Pure # fraction] 0.6 E9/L Normal 0.2-1.0 [facility] Comment on above: Order Comment: Order Added by Discern Expert. Performed By: #### 2 234984, 599025939, 2678641, 7106384, 4481712, 05394562 #### [facility] [address] [place] [address] Neutrophils/100 WBC (Bld) 45.8 % Normal 36.0-75.0 [facility] Comment on above: Order Comment: Order Added by Discern Expert. Performed By: #### 2 092780, 905017448, 9137740, 2185211, 1054859, 98213303 #### [facility] [address] [place] [address] Neutrophils/Leukoc ytes Auto (Bld) [Pure # fraction] 2.5 E9/L Normal 2.0-7.5 [facility] Comment on above: Order Comment: Order Added by Discern Expert. Performed By: #### 2 994911, 910209346, 9195119, 2993358, 1875070, 47706835 #### [facility] [address] [place] [address] CBC w/ Auto Diffon 3 Erythrocyte distribution width (RBC) [Ratio] 15.1 % High 10.9-14.2 [facility] Comment on above: Performed By: #### 2 209123, 219069558, 5686745, 5302945, 0991047, 47717757 #### [facility] [address] [place] [address] Hematocrit (Bld) [Volume fraction] 39.1 % Normal 34.0-46.0 [facility] Comment on above: Performed By: #### 2 032122, 210476002, 0002321, 7940399, 4467748, 99508900 #### [facility] [address] [place] [address] Hemoglobin (Bld) [Mass/Vol] 13.1 g/dL Normal 12.0-16.0 [facility] Comment on above: Performed By: #### 2 605407, 681405059, 6729817, 5309248, 1652716, 24606346 #### [facility] [address] [place] [address] MCH (RBC) [Entitic mass] 30.8 pg Normal 27.0-34.0 [facility] Comment on above: Performed By: #### 2 366011, 156701600, 1030980, 2366318, 4311066, 59980250 #### [facility] [address] [place] [address] MCHC (RBC) [Mass/Vol] 33.5 g/dL Normal 31.4-36.0 [facility] Comment on above: Performed By: #### 2 712958, 298192580, 9307868, 9112541, 3809374, 05133196 #### [facility] [address] [place] [address] MCV (RBC) [Entitic vol] 92.0 fL Normal 80.0-100.0 [facility] Comment on above: Performed By: #### 2 352406, 738178290, 1181205, 4949058, 9686498, 41550044 #### [facility] [address] [place] [address] Platelet mean volume (Bld) [Entitic vol] 9.2 fL Normal 6.4-10.8 [facility] Comment on above: Performed By: #### 2 286393, 419023575, 5381309, 0194918, 6302652, 48212832 #### [facility] [address] [place] [address] Platelets (Bld) [#/Vol] 205.0 E9/L Normal 150.0-500.0 [facility] Comment on above: Performed By: #### 2 573478, 169694154, 5454565, 0483380, 6106382, 10045854 #### [facility] [address] [place] [address] RBC (Bld) [#/Vol] 4.2 E12/L Low 4.3-5.9 [facility] Comment on above: Performed By: #### 2 290476, 497283418, 7662311, 4888633, 2802798, 29348639 #### [facility] [address] [place] [address] WBC corrected for nucl RBC Auto (Bld) [#/Vol] 5.4 E9/L Normal 4.0-11.0 [facility] Comment on above: Performed By: #### 2 686773, 268519402, 6443237, 3281132, 4966093, 22874896 #### [facility] [address] [place] [address] CHEMISTRYOrdered By: Peace guillaume on 10-01-2023 Albumin DL <= 20 mg/L (U) [Mass/Vol] 9.9 microgram/mL Normal 0.0 - 19.0 mcg/mL [facility] Remisol Albumin Elph (U) [Mass fraction] mg/dL Invalid Interpretation Code [facility] Remisol Comment on above: Interpretive Data: T he reference range and other method performance specifications have not been established for this test; results should be integrated into the clinical context for interpretation. Creatinine (U) [Mass/Vol] 28.4 mg/dL Invalid Interpretation Code [facility] Remisol Comment on above: Interpretive Data: T he reference range and other method performance specifications have not been established for this test; results should be integrated into the clinical context for interpretation. U Prot/Creat Ratio [facility] Invalid Interpretation Code 0.00 - 200.00 [facility] Remisol CHEMISTRYOrdered By: SYSTEM SYSTEM on 10-01-2023 Albumin [Mass/Vol] 3.8 g/dL Normal 3.3 - 5.0 gm/dL [facility] Albumin/Globulin [Mass ratio] 1.1 {ratio} Normal 1.1 - 2.2 [facility] ALP [Catalytic activity/Vol] 61 [iU]/d Normal 21 - 98 Int._Unit/L [facility] ALT No additional P-5'-P [Catalytic activity/Vol] 26 [iU]/d Normal 6 - 46 Int._Unit/L [facility] Anion gap [Moles/Vol] 10 mmol/L Normal 6 - 16 mEq/L [facility] AST [Catalytic activity/Vol] 31 [iU]/d Normal 5 - 43 Int._Unit/L [facility] Bilirubin [Mass/Vol] 1.1 mg/dL Normal 0.0 - 1.1 mg/dL [facility] Calcium [Mass/Vol] 9.4 mg/dL Normal 8.9 - 11.1 mg/dL [facility] Chloride [Moles/Vol] 104 mmol/L Normal 101 - 111 mmol/L [facility] Cholesterol [Mass/Vol] 127 mg/dL Normal 120 - 200 mg/dL [facility] Cholesterol in HDL [Mass/Vol] 58 mg/dL Invalid Interpretation Code [facility] Comment on above: Interpretive Data: H DL > or equal to 60 mg/dL: Low cardiovascular risk HDL < 40 mg/dL : High cardiovascular risk Cholesterol in LDL [Mass/Vol] 58 mg/dL Normal <=129mg/dL [facility] Cholesterol in VLDL [Mass/Vol] 15 mg/dL Normal 7 - 40 mg/dL [facility] CO2 [Moles/Vol] 30 mmol/L Normal 21 - 31 mmol/L [facility] Creatinine [Mass/Vol] 1.5 mg/dL High 0.5 - 1.3 mg/dL [facility] GFR/1.73 sq M.predicted among non-blacks MDRD (S/P/Bld) [Vol rate/Area] 37 mL/min/1.73 m2 Low >=59mL/min/1.73 m2 [facility] Chem S Comment on above: Interpretive Data: C hronic kidney disease could be indicated at eGFR's of less than 60 mL/min/1.73m2. Kidney failure is indicated at less than 15 mL/min/1.73m2. Globulin (S) [Mass/Vol] 3.6 g/dL Normal 1.4 - 4.0 gm/dL [facility] Glucose [Mass/Vol] 176 mg/dL Normal 55 - 199 mg/dL [facility] Comment on above: Interpretive Data: I f this glucose result represents a fasting glucose, interpretation should refer to the following reference range: 55-99 mg/dL Potassium [Moles/Vol] 3.7 mmol/L Normal 3.5 - 5.3 mmol/L [facility] Remisol Protein [Mass/Vol] 7.4 g/dL Normal 6.0 - 7.8 gm/dL [facility] Sodium [Moles/Vol] 140 mmol/L Normal 135 - 145 mmol/L [facility] Remisol Triglyceride [Mass/Vol] 77 mg/dL Normal <=149mg/dL [facility] Remisol Urea nitrogen [Mass/Vol] 24 mg/dL High 5 - 21 mg/dL [facility] Remisol Urea nitrogen/Creatinin e [Mass ratio] 16 mg/mg Normal 10 - 20 [facility] Remisol CHEMISTRYOrdered By: Denisha Carlin on 10-01-2023 HbA1c (Bld) [Mass fraction] 8.2 % High <=5.9% [facility] ChemAutoSS CMPon 10-01-2023 Albumin [Mass/Vol] 3.8 g/dL Normal 3.3-5.0 [facility] Comment on above: Performed By: #### 2 335282, 391090798, 6769788, 7572651, 9831045, 26397613 ####[facility] [address] [place] [address] Albumin/Globulin (S) [Mass conc ratio] 1.1 Normal 1.1-2.2 [facility] Comment on above: Performed By: #### 2 372743, 155462320, 5459511, 3853499, 2687736, 58085072 ####[facility] [address] [place] [address] ALP [Catalytic activity/Vol] 61 Int._Unit/L Normal 21-98 [facility] Comment on above: Performed By: #### 2 410023, 287613529, 1263053, 8601103, 9143933, 01110589 ####[facility] [address] [place] [address] ALT No additional P-5'-P [Catalytic activity/Vol] 26 Int._Unit/L Normal 6-46 [facility] Comment on above: Performed By: #### 2 173209, 908702133, 1417714, 6172516, 1955420, 09729463 ####[facility] [address] [place] [address] Anion gap [Moles/Vol] 10 mmol/L Normal 6-16 [facility] Comment on above: Performed By: #### 2 065613, 689137621, 9081970, 7179791, 0834000, 20674785 ####[facility] [address] [place] [address] AST [Catalytic activity/Vol] 31 Int._Unit/L Normal 5-43 [facility] Comment on above: Performed By: #### 2 478086, 964878064, 2514454, 5631631, 8129841, 74656416 ####[facility] [address] [place] [address] Bilirubin [Mass/Vol] 1.1 mg/dL Normal 0.0-1.1 [facility] Comment on above: Performed By: #### 2 562293, 903589668, 8002536, 6414159, 9428446, 02037049 ####[facility] [address] [place] [address] Calcium [Mass/Vol] 9.4 mg/dL Normal 8.9-11.1 [facility] Comment on above: Performed By: #### 2 420468, 261951052, 8556892, 8090792, 1615701, 33918867 ####[facility] [address] [place] [address] Chloride [Moles/Vol] 104 mmol/L Normal 101-111 [facility] Comment on above: Performed By: #### 2 563623, 103465574, 3065046, 9382855, 5400481, 61958339 ####[facility] [address] [place] [address] CO2 [Moles/Vol] 30 mmol/L Normal 21-31 [facility] Comment on above: Performed By: #### 2 509314, 341875969, 7788630, 5634839, 3118821, 53200396 ####[facility] [address] [place] [address] Creatinine [Mass/Vol] 1.5 mg/dL High 0.5-1.3 [facility] Comment on above: Performed By: #### 2 387851, 626044543, 5490685, 3063273, 8527759, 34429067 ####[facility] [address] [place] [address] Globulin (S) [Mass/Vol] 3.6 g/dL Normal 1.4-4.0 [facility] Comment on above: Performed By: #### 2 335243, 987719919, 8998176, 1355310, 9979847, 55973334 ####[facility] [address] [place] [address] Glucose [Mass/Vol] 176 mg/dL Normal 55-199 [facility] Comment on above: Result Comment: If t his glucose result represents a fasting glucose, interpretation should refer to the following reference range: 55-99 mg/dL Performed By: #### 2 712808, 495609153, 8793849, 4565158, 7321818, 83903979 ####[facility] [address] [place] [address] Potassium [Moles/Vol] 3.7 mmol/L Normal 3.5-5.3 [facility] Comment on above: Performed By: #### 2 236165, 164590111, 7383391, 2453724, 2492635, 95906769 ####[facility] [address] [place] [address] Protein [Mass/Vol] 7.4 g/dL Normal 6.0-7.8 [facility] Comment on above: Performed By: #### 2 076437, 130367389, 3067746, 4679576, 2581741, 58151532 ####[facility] [address] [place] [address] Sodium [Moles/Vol] 140 mmol/L Normal 135-145 [facility] Comment on above: Performed By: #### 2 125523, 860166749, 1023380, 1355839, 2915999, 24173755 ####[facility] [address] [place] [address] Urea nitrogen [Mass/Vol] 24 mg/dL High 5- [facility] Comment on above: Performed By: #### 2 811734, 603928987, 2004040, 4214162, 2942082, 63993916 ####[facility] [address] [place] [address] Urea nitrogen/Creatinin e [Mass ratio] 16 No Units Normal 10- [facility] Comment on above: Performed By: #### 2 551485, 536457625, 2743664, 1037137, 9817321, 70445395 ####[facility] [address] [place] [address] Consent for Treatmenton 09-03 Consent for Treatment [id number]#1.00TIFF Normal [facility] HEMATOLOGYOrdered By: SYSTEM SYSTEM on 10-01-2023 Basophils/100 WBC (Bld) 1.0 % Normal 0.0 - 2.0 % [facility] HemeAutoSS Basophils/Leukocyt es Auto (Bld) [Pure # fraction] 0.1 E9/L Normal 0.0 - 0.2 E9/L [facility] HemeAutoSS Eosinophils/100 WBC (Bld) 5.3 % Normal 0.0 - 8.0 % [facility] HemeAutoSS Eosinophils/Leukoc ytes Auto (Bld) [Pure # fraction] 0.3 E9/L Normal 0.0 - 0.5 E9/L [facility] HemeAutoSS Lymphocytes/100 WBC (Bld) 37.2 % Normal 14.0 - 50.0 % [facility] HemeAutoSS Lymphocytes/Leukoc ytes Auto (Bld) [Pure # fraction] 2.0 E9/L Normal 1.0 - 4.0 E9/L [facility] HemeAutoSS Monocytes/100 WBC (Bld) 10.7 % Normal 4.0 - 14.0 % [facility] HemeAutoSS Monocytes/Leukocyt es Auto (Bld) [Pure # fraction] 0.6 E9/L Normal 0.2 - 1.0 E9/L [facility] HemeAutoSS Neutrophils/100 WBC (Bld) 45.8 % Normal 36.0 - 75.0 % [facility] HemeAutoSS Neutrophils/Leukoc ytes Auto (Bld) [Pure # fraction] 2.5 E9/L Normal 2.0 - 7.5 E9/L [facility] HemeAutoSS HEMATOLOGYOrdered By: Yamilet alas on 10-01-2023 Erythrocyte distribution width (RBC) [Ratio] 15.1 % High 10.9 - 14.2 % [facility] HemeAutoSS Hematocrit (Bld) [Volume fraction] 39.1 % Normal 34.0 - 46.0 % [facility] HemeAutoSS Hemoglobin (Bld) [Mass/Vol] 13.1 g/dL Normal 12.0 - 16.0 gm/dL [facility] HemeAutoSS MCH (RBC) [Entitic mass] 30.8 pg Normal 27.0 - 34.0 pg FT HemeAutoSS MCHC (RBC) [Mass/Vol] 33.5 g/dL Normal 31.4 - 36.0 gm/dL [facility] HemeAutoSS MCV (RBC) [Entitic vol] 92.0 fL Normal 80.0 - 100.0 fL [facility] HemeAutoSS Platelet mean volume (Bld) [Entitic vol] 9.2 fL Normal 6.4 - 10.8 fL [facility] HemeAutoSS Platelets (Bld) [#/Vol] 205.0 E9/L Normal 150.0 - 500.0 E9/L [facility] HemeAutoSS RBC (Bld) [#/Vol] 4.2 E12/L Low 4.3 - 5.9 E12/L [facility] HemeAutoSS WBC corrected for nucl RBC Auto (Bld) [#/Vol] 5.4 E9/L Normal 4.0 - 11.0 E9/L [facility] HemeAutoSS OjtK2cya 10-01-2023 HbA1c (Bld) [Mass fraction] 8.2 % High <=5.9 [facility] Comment on above: Performed By: #### 2 750776, 611210814, 2106831, 6482094, 0804259, 98203085 ####[facility] [address] [place] [address] Lipid Panelon 10-01-2023 Cholesterol [Mass/Vol] 127 mg/dL Normal 120-200 [facility] Comment on above: Performed By: #### 2 788573, 200649473, 9621097, 3859397, 0394707, 59846180 ####[facility] [address] [place] [address] Cholesterol in HDL [Mass/Vol] 58 mg/dL Invalid Interpretation Code [facility] Comment on above: Result Comment: HDL > or equal to 60 mg/dL: Low cardiovascular risk HDL < 40 mg/dL : High cardiovascular risk Performed By: #### 2 546029, 901843639, 3427958, 8965072, 9215829, 29844380 ####[facility] [address] [place] [address] Cholesterol in LDL [Mass/Vol] 58 mg/dL Normal <=129 [facility] Comment on above: Performed By: #### 2 389255, 765376223, 8019165, 9813526, 6737935, 55625336 ####[facility] [address] [place] [address] Cholesterol in VLDL [Mass/Vol] 15 mg/dL Normal 7-40 [facility] Comment on above: Performed By: #### 2 189126, 359370332, 9183130, 9527105, 0597850, 35105639 ####[facility] [address] [place] [address] Triglyceride [Mass/Vol] 77 mg/dL Normal <=149 [facility] Comment on above: Performed By: #### 2 440789, 844581004, 2135194, 2137651, 9663748, 76296843 ####[facility] [address] [place] [address] Retail - Clinical Noteon Retail - Clinical Note [id number]#1.00TIFF Normal [facility] U Microalbon 10-01-2023 Albumin DL <= 20 mg/L (U) [Mass/Vol] 9.9 microgram/mL Normal 0.0-19.0 [facility] Comment on above: Performed By: #### 1 022652836, 26811813 ####[facility] [address] [place] [address] U Protein/Creat Ratioon 09-03 Albumin Elph (U) [Mass fraction] <6.0 Invalid Interpretation Code [facility] Comment on above: Result Comment: The reference range and other method performance specifications have not been established for this test; results should be integrated into the clinical context for interpretation. Performed By: #### 1 [id number], 73492947 ####[facility] [address] [place] [address] Creatinine (U) [Mass/Vol] 28.4 mg/dL Invalid Interpretation Code [facility] Comment on above: Result Comment: The reference range and other method performance specifications have not been established for this test; results should be integrated into the clinical context for interpretation. Performed By: #### 1 549069227, 09752508 ####[facility] [address] [place] [address] U Prot/Creat Ratio [facility] Invalid Interpretation Code .00-200.00 [facility] Comment on above: Performed By: #### 1 205262598, 94398403 ####[facility] [address] [place] [address] eGFRon 10-01-2023 GFR/1.73 sq M.predicted among non-blacks MDRD (S/P/Bld) [Vol rate/Area] 37 mL/min/1.73 m2 Low >=59 [facility] Comment on above: Order Comment: Order added by Discern Expert. Result Comment: Roller Inspector maco kidney disease could be indicated at eGFR's of less than 60 mL/min/1.73m2. Kidney failure is indicated at less than 15 mL/min/1.73m2. Performed By: #### 2 742071, 255081147, 5099339, 8637434, 5289559, 96242011 ####[facility] [address] [place] [address] Interdisciplinary Note - Soc ial Workeron 09-23-2023 Interdisciplinary Note - Real Property Appraiser Consult received d/t pt's dx of DM. Patient requires bariatric equipment. Upon review of chart notes, patient resides at [facility]. Patient has been evaluated by [employer] for an appropriate wheelchair. If further needs, or DME are required conversation with staff at [facility] should be had for appropriate planning and continuity of care. SW will remain available. Normal [facility] Retail - Clinical Noteon Retail - Clinical Note [id number]#1.00TIFF Normal [facility] Consultation Noteon 09-18-20 Consultation Note [id number]#1.00TIFF Normal [facility] Family Medicine Office/Clini c Noteon 09-17-2023 Family Medicine Office/Clinic Note HPI Staff Malcom is a 67 year old female presenting to establish care Resides at the [facility] Needs a face to face for a custom manual wheelchair Daughter also says she needs a rx for a bariatric walker, last time she fell it bent and broke, can you advise daughter what kind to get Establish Care: History:DM,ascvd, ckd, htn, hypercholesterolem ia Last provider: Selena, has seen Mariangel Any recent labs: 04/09/23 phq9-8 Health Maintenance UTD: Colonoscopy: 2 years ago Mammogram: should be due per Patient Pelvic/Pap: hysterectomy covid: UTD Flu: contraindicated ( guillain barre) Acute: Current issues/complaints: home is hoping you'll d/c all her OTC meds they feel she takes too many morning meds, daughter disagrees but will let the PCP decide Saw Dr Worrell and he switched some meds just saw him today take basaglar 30units at bedtime now ( no longer bid) and novolog 8 units at lunch, 10units at dinner and then the rest of the time is the sliding scale but the 8 and 10 units are to be given no matter what her readings are. did A1C in office 9. something per daughter Given an order for labs to do in December prior to follow up with him History of Present Illness Malcom Knowles is a 67-year-old female who presents today to establish care. She is accompanied by her daughter. The patient has a history of back and knee surgeries, who is currently unable to walk approximately 2 feet. 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 She is scheduled for physical therapy tomorrow from 2:00 PM to 3:00 PM. Previously, she was in an assisted living facility in [place] where she received intensive physical therapy. However, she was removed from the facility due to frequent falls. She has been measured for a wider wheelchair after an incident where she fell and bent her walker. Her daughter also asked what the best ambulatory aid for her would be. Her daughter mentioned that they had to establish with a doctor to get signatures for the wheelchair. The patient has been financially supporting herself including paying for her groceries. Her daughter also asked if she could take off her prescription of the cranberry, multivitamin which have increased from 5 g to 6500 g a month and other [id number]-[id number] medications. However, the daughter states that this is not sustainable and is considering finding a cheaper living arrangement or moving the patient to a retirement. She has expressed interest in losing weight. Despite this, she has been ordering chocolate online as her daughter refuses to buy it for her. The daughter also found salted nuts among the patient?s snacks which include wheat ends and pretzels. Her last A1c was 9%, indicating poor blood sugar control. Her medications were recently adjusted by Dr. Zhu. The patient?s daughter expressed concern that the patient gave up on herself a long time ago and knows she is not supposed to have certain things but still indulges in them. Review of Systems PHQ Score Initial Depression Screen Score: 2 Physical Exam Vitals & Measurements T: 36.7 ?C(Oral) HR: 88(Peripheral) RR: 16 BP: 136/78 SpO2: 96% HT: 62 in HT: 158 cm WT: 130.63 kg WT: 287.386 lb BMI: 52.33 General: alert, no acute distress, morbidly obese Cardiovascular: regular rate and rhythm, normal peripheral perfusion Respiratory: Lungs CTA, respirations non labored Extremities: no deformity, no trauma Neurological: oriented x 4, LOC appropriate for age, CN II-XII intact, motor strength equal & normal bilaterally, speech normal Gait: Patient is ambulating with a wheelchair. Assessment/Plan 1. Type 2 diabetes mellitus with chronic kidney disease (E11.22: Type 2 diabetes mellitus with diabetic chronic kidney disease) Patient is seeing Dr. Zhu who is managing her medications. Last A1c was 9. Patient needs to titrate on the Trulicity and also needs to work on diet. We will do a 2000 calorie diet and that has been ordered through her assisted living. 2. Type 2 diabetes mellitus with hypercholesterolem ia (E11.69: Type 2 diabetes mellitus with other specified complication) Patient is seeing Dr. Zhu, who is managing her medications. Last A1c was nine. Patient needs to titrate on the Trulicity and also needs to work on diet and we will do a 2000 calorie diet and that has been ordered through her assisted living. 3. Benign hypertension with chronic kidney disease (I12.9: Hypertensive chronic kidney disease with stage 1 through stage 4 chronic kidney disease, or unspecified chronic kidney disease) Patient's blood pressure is at goal today. No other concerns. We will continue on medication as before. 4. Insulin long-term use (Z79.4: detention (current) use of insulin) Discussed the need of having the patient increase the medication, but we will have Dr. Zhu adjust the medication. 5. BMI 50.0-59.9, adult (Z68.43: Body mass index [BMI] 50.0-59.9, adult) 6. Morbid obesi (more content not included)... [facility] Comment on above: Result Comment: Elec tronically Signed By: Felix Easley MD\.br\Date and Time Signed: 09/17/23 07:26 EDT\.br\Electronically Co-Signed By: Romana Crouch\.br\Date and Time Co-Signed: 09/09/23 18:25 EDT Long-Term Recordson 09-11 Long-Term Records [id number]#1.00TIFF Normal [facility] Ambulatory Visit Summaryon 1 Ambulatory Visit Summary MALCOM KNOWLES :1955 Visit Date:09/09/2023 Ambulatory Visit Instructions Your Diagnosis Type 2 diabetes mellitus with chronic kidney disease Type 2 diabetes mellitus with hypercholesterolem ia Benign hypertension with chronic kidney disease Insulin long-term use BMI 50.0-59.9, adult Morbid obesity Major depression in full remission CKD (chronic kidney disease) stage 3, GFR 30-59 ml/min 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 History of Uterine cancer Your Care Team Attending Physician - Felix Easley MD Primary Care Physician - Felix Easley MD This Is Your Medications List alpha-lipoic acid (Alpha Lipoic Acid 600 mg oral capsule) biotin (biotin 10 mg oral tablet) calcium carbonate (Tums Chewy Bites 750 mg oral tablet, chewable) cetirizine (cetirizine 5 mg oral tablet) cholecalciferol (Vitamin D3 1000 intl units (25 mcg) Tab) cranberry (Cranberry oral tablet) cyanocobalamin (Vitamin B12 1000 mcg Tab) dulaglutide (Trulicity Pen 1.5 mg/0.5 mL subcutaneous solution) famotidine (famotidine 20 mg Tab) glucosamine (glucosamine hydrochloride 1500 mg oral tablet) hydrocortisone topical (hydrocortisone 2.5% Rectal Crm w/Appl) loperamide (Immodium A-D 2 mg Tab) multivitamin with minerals (PreserVision AREDS 2) polyethylene glycol 3350 potassium chloride (potassium chloride 20 mEq ER Tab) sodium chloride nasal (Saline Mist 0.65% nasal spray) Contact prescribing physician if questions or concerns Misc Prescription (Freestyle Bang 2 sensors) Misc Prescription (Freestyle Bang 2 system) Misc Prescription (Home health physical therapy evaluatoin and treatment) Misc Prescription (Misc DME Prescription) Misc Prescription (OT EVALUATION) Misc Prescription (Physical therapy treat and evaluate, properly sized walker,) acetaminophen (acetaminophen 500 mg Tab) acetaminophen-oxyc odone (acetaminophen-oxy codone 300 mg-5 mg oral tablet) atorvastatin (atorvastatin 80 mg Tab) clopidogrel (Plavix 75 mg Tab) docusate (Colace 100 mg Cap) donepezil (donepezil 10 mg Tab) fluconazole (Diflucan 150 mg Tab) furosemide (furosemide 40 mg Tab) gabapentin (gabapentin 600 mg Tab) glimepiride (glimepiride 2 mg Tab) insulin aspart (Insulin Aspart FlexPen 100 units/mL injectable solution) insulin glargine (Basaglar KwikPen 100 units/mL subcutaneous solution) memantine (memantine 10 mg Tab) nitroglycerin (nitroglycerin 0.4 mg sublingual Tab) ondansetron (ondansetron 4 mg Tab) oxybutynin (oxybutynin 15 mg ER Tab) venlafaxine (venlafaxine 150 mg Cap-ER) Procedures Performed Cardiac catheterization, Cataract, History of left knee replacement, History of right total knee replacement, ARYAN BSO - Total abdominal hysterectomy and bilateral salpingo-oophorect francisco. Discharge Vitals Temperature (Oral) 36.7 ?C Heart Rate (Peripheral) 88 Respiratory Rate 16 Blood Pressure 136/78 Height 158 cm Height 62 in Weight 130.63 kg Weight 287.386 lb BMI 52.33 What to do next Scheduled Follow-Up Appointments 2022 10:30 AM EST With: BRIGIDA WILLOUGHBY PA-C Where: [facility] Invalid Interpretation Code Type 2 diabetes mellitus with hypercholesterolemia [facility] Pre-Visit Planningon 023 Pre-Visit Planning --- From: Clifton DE LOS SANTOS, Luann To: Kaushal JUDGE, Felix Lau; Sent: 09/06/2023 10:38:47 EDT Subject: Pre-Visit Planning Due Date/Time: 09/06/2023 10:38:00 EDT Caller Name: MALCOM KNOWLES; Caller Number: Shawn , M Me Dr. Easley, *Based on your response below, can you please update the chronic problem list and address during this visit if appropriate?* During a pre-visit planning chart review, I noted the following documentation in the medical record: Current medications: Venlafaxine 05/16/2023 office note- History: Any previous diagnosis: Diabetes, HTN, Frequent falls, gerd, depression, syncope Based on your medical judgment, can you please further specify the depression listed on the problem list? ? Major Depressive Disorder, Recurrent ? Major depressive disorder, recurrent, mild ? Major depressive disorder, recurrent, moderate ? Major depressive disorder, recurrent, in partial remission ? Major depressive disorder, recurrent, in full remission ? Other (Please Specify): I can update the problem list with your specified response if you would like. In responding to this request, please exercise your independent professional judgement. The fact that a question is asked does not imply that any particular answer is desired or expected. If you have any questions, please feel free to contact me at extension [phone]. Thank you! Luann Lazo, SHAHANAN, RN, CCM, CCDS, CCDS-O Invalid Interpretation Code [address] [facility] Pre-Visit Planning --- From: Clifton DE LOS SANTOS, Luann To: Kaushal JUDGE, Felix Lau; Sent: 09/06/2023 10:30:41 EDT Subject: Pre-Visit Planning Due Date/Time: 09/06/2023 10:30:00 EDT Caller Name: MALCOM KNOWLES; Caller Number: , Me Dr. Easley, *Based on your response below, can you please update the chronic problem list and address during this visit if appropriate?* During a pre-visit planning chart review, I noted the following documentation in the medical record indicates that this patient had a BMI of 52.32 on 07/15/2023. The National [place] of [employer] defines obesity as morbid if the patient demonstrates a BMI of over 40, or a BMI of 35 or more and at least one weight-related comorbid condition, such as diabetes or hypertension. Examples of weight-related comorbidities include diabetes, heart disease, stroke, hypertension, and arthritis. Current problem list: Hypertension, Hypercholesterolem ia, Diabetes Mellitus Based on your medical judgment, can you further clarify the following diagnosis that correlates with the BMI listed above if the current BMI is still 35 or over? - Morbid obesity (please also include additional diagnosis to reflect current BMI) - Class 3 severe obesity with serious comorbidity in adult (please also include additional diagnosis to reflect current BMI) - Other (please specify): I can update the problem list with your specified response if you would like. In responding to this request, please exercise your independent professional judgment. The fact that a question is asked does not imply that any particular answer is desired or expected. If you have any questions, please feel free to contact me at extension [phone]. Thank you! SHAHANA MelchorN, RN, CCM, CCDS, CCDS-O Invalid Interpretation Code [address] [facility] Long-Term Recordson 09-04 Long-Term Records [id number]#1.00CD:127 [facility] Long-Term Recordson 09-03 Long-Term Records [id number]#1.00CD:127 [facility] Long-Term Recordson 09-02 Long-Term Records [id number]#1.00CD:127 [facility] Family Medicine Office/Clini c Noteon 08-23-2023 Family Medicine Office/Clinic Note HPI Staff Malcom is a 67 year old female presenting for Medicine Check Patient is here for follow up on hypertension. How often are you checking your blood pressure? every other day What are your average readings? _ Patient is here for follow up on Diabetes. How often are you checking your blood sugars? log brought in with patient. What are your average readings?_ Lisinopril, aspirin, statin therapy? Yes Foot Exam: Eye Exam: unable to find last A1c Questions/Concerns : pt states at assisted living and brought paperwork with her they are asking for OT eval for bigger wheel chair to better fit her as well as free style Bang system. Blood sugar log in with patient History of Present Illness pt presents today with order requests from Assisted Living for freestyle Bang and OT evaluation for bigger wheelchair Review of Systems PHQ Score Initial Depression Screen Score: 0 ROS - Provider Constitutional: no fever, no chills, no sweats, yes fatigue Respiratory: no shortness of breath, no cough, no orthopnea, no wheezing. Cardiovascular: no chest pain, no palpitations, no edema. Neurologic: no headache, no dizziness, no numbness, no weakness. Physical Exam Vitals & Measurements HR: 96(Peripheral) RR: 20 BP: 142/90 SpO2: 98% HT: 62 in HT: 158 cm WT: 130.6 kg WT: 287.32 lb BMI: 52.32 General: alert, no acute distress ENMT: oral mucosa moist, no pharyngeal erythema or exudate Cardiovascular: regular rate and rhythm, normal peripheral perfusion Respiratory: Lungs CTA, respirations non labored Extremities: no deformity, no trauma Neurological: oriented x 4, LOC appropriate for age, CN II-XII intact, motor strength equal & normal bilaterally, speech normal Assessment/Plan 1. Insulin dependent type 2 diabetes mellitus (E11.9: Type 2 diabetes mellitus without complications) pt presents today from assisted living home. they are requesting freestyle bang and OT order. she also has her BS log with her. BS are very uncontrolled. pt states she is not receiving a diabetic diet with her meals. changed order to diabetic meals. increased basaglar to 12 untis. will refer to [employer]. daughter will call with where she wants referral sent. pt was provided orders for all of these changes to take back to assisted living home. pt states she has been going to physical therapy and they are making her use her walker to get around. She is angry and states she just wants to use her wheelchair. Walking was encouraged by provider as well. will send referral to endocrinology. all questions answered. Pt has appointment scheduled with Dr. Easley in September. she will bring her BS log with her at that time. Ordered: Misc Prescription, Freestyle Bang 2 system, See Instructions, 1 EA, 0, pt to check BS 4 times per day, Supply Misc Prescription, Freestyle Bang 2 sensors, See Instructions, 1 EA, 4, One box of sensors, Supply Misc Prescription, OT EVALUATION, See Instructions, 1 EA, 0, evaluate and treat better fitting wheel chair, Supply [facility] External Ambulatory Referral 2. BMI 50.0-59.9, adult (Z68.43: Body mass index [BMI] 50.0-59.9, adult) BMI education complete Ordered: [facility] External Ambulatory Referral 3. Non-smoker (Z78.9: Other specified health status) continue not smoking Ordered: [facility] External Ambulatory Referral terminal gauger (current) use of insulin (Z79.4: detention (current) use of insulin) referral to [facility] will be sent Ordered: [facility] External Ambulatory Referral Follow-up No qualifying data available Problem List/Past Medical History Ongoing BMI 50.0-59.9, adult Insulin dependent type 2 diabetes mellitus Obesity UTI (urinary tract infection) Historical No qualifying data Medications acetaminophen 500 mg Tab acetaminophen-oxyc odone 300 mg-5 mg oral tablet, 1 tab(s), Oral, q6hr, PRN atorvastatin 80 mg Tab Basaglar KwikPen 100 units/mL subcutaneous solution, 12 unit(s) cetirizine 5 mg oral tablet Colace 100 mg Cap, 100 mg= 1 cap(s), Oral, BID, PRN Cranberry oral tablet Diflucan 150 mg Tab, 150 mg= 1 tab(s), Oral, Once donepezil 10 mg Tab Freestyle Bang 2 sensors, See Instructions, 4 refills Freestyle Bang 2 system, See Instructions furosemide 40 mg Tab gabapentin 600 mg Tab glimepiride 2 mg Tab Insulin Aspart FlexPen 100 units/mL injectable solution memantine 10 mg Tab Misc DME Prescription, See Instructions, 3 refills nitroglycerin 0.4 mg sublingual Tab, 0.4 mg= 1 tab(s), SubLingual, q5min, PRN ondansetron 4 mg Tab OT EVALUATION, See Instructions oxybutynin 15 mg ER Tab Plavix 75 mg Tab Trulicity Pen 1.5 mg/0.5 mL subcutaneous solution venlafaxine 150 mg Cap-ER Allergies sulfa drugs (Unknown) Social History Tobacco Never (less than 100 in lifetime) Tobacco Use:. Never Smokeless Tobacco Use:. Household tobacco concerns: No., 07/15/2023 Immunizations Vaccine Date Status Comments SARS-CoV-2 (COVID-19) mRNAMUL.ORD![id number] 09/13/2022 R (more content not included)... [facility] Comment on above: Result Comment: Elec tronically Signed By: Mariangel Peña\.br\Date and Time Signed: 08/23/23 09:36 EDT Long-Term Recordson 08-21 Long-Term Records [id number]#1.00CD:127 [facility] Long-Term Recordson 08-20 Long-Term Records [id number]#1.00CD:127 [facility] Long-Term Recordson 08-15 Long-Term Records [id number]#1.00CD:127 [facility] Retail - Clinical Noteon Retail - Clinical Note [id number]#1.00CD:127 [facility] Urine Cultureon 07-28-2023 Bacteria identified Cx Nom (U) <9,000 colonies/ml mixed bacterial skin contaminants 2 Days PERFORMED BY: [place] [address] PATHOLOGIST DOG BATHER SUZY FLORES M.D. [facility] Comment on above: Performed By: #### C UU #### [place] [id number] [facility] Physician Referralon 023 Physician Referral [id number]#1.00CD:127 [facility] Long-Term Recordson 07-23 Long-Term Records [id number]#1.00CD:127 [facility] Long-Term Recordson 07-18 Long-Term Records [id number]#1.00CD:127 [facility] Long-Term Records [id number]#1.00CD:127 [facility] Retail - Clinical Noteon Retail - Clinical Note [id number]#1.00CD:127 [facility] Long-Term Recordson 07-16 Long-Term Records [id number]#1.00CD:127 [facility] Physician Referralon 023 Physician Referral [id number]#1.00CD:127 [facility] Retail - Clinical Noteon Retail - Clinical Note [id number]#1.00CD:127 [facility] Ambulatory Visit Summaryon 0 07-15-2023 Ambulatory Visit Summary MALCOM KNOWLES :1955 Visit Date:07/15/2023 Ambulatory Visit Instructions Your Diagnosis Insulin dependent type 2 diabetes mellitus BMI 50.0-59.9, adult Non-smoker detention (current) use of insulin Your Care Team Attending Physician - Mariangel Peña Primary Care Physician - Felix Easley MD This Is Your Medications List Misc Prescription (Freestyle Bang 2 sensors) Misc Prescription (Freestyle Bang 2 system) Misc Prescription (Misc DME Prescription) Misc Prescription (OT EVALUATION) acetaminophen (acetaminophen 500 mg Tab) acetaminophen-oxyc odone (acetaminophen-oxy codone 300 mg-5 mg oral tablet) atorvastatin (atorvastatin 80 mg Tab) cetirizine (cetirizine 5 mg oral tablet) clopidogrel (Plavix 75 mg Tab) cranberry (Cranberry oral tablet) docusate (Colace 100 mg Cap) donepezil (donepezil 10 mg Tab) dulaglutide (Trulicity Pen 1.5 mg/0.5 mL subcutaneous solution) fluconazole (Diflucan 150 mg Tab) furosemide (furosemide 40 mg Tab) gabapentin (gabapentin 600 mg Tab) glimepiride (glimepiride 2 mg Tab) insulin aspart (Insulin Aspart FlexPen 100 units/mL injectable solution) insulin glargine (Basaglar KwikPen 100 units/mL subcutaneous solution) memantine (memantine 10 mg Tab) nitroglycerin (nitroglycerin 0.4 mg sublingual Tab) ondansetron (ondansetron 4 mg Tab) oxybutynin (oxybutynin 15 mg ER Tab) venlafaxine (venlafaxine 150 mg Cap-ER) Discharge Vitals Heart Rate (Peripheral) 96 Respiratory Rate 20 Blood Pressure 142/90 Height 158 cm Height 62 in Weight 130.6 kg Weight 287.32 lb BMI 52.32 What to do next Scheduled Follow-Up Appointments Saturday 3:40 PM EDT With: Kaushal JUDGE, Felix Lau Where: [facility] Normal [address] [place] [address]- \.br\ Medications\.br\ What How Much When Why Instructions\.br\ New Misc Prescription (Freestyle Bang 2 sensors) See instructions Insulin dependent type 2 diabetes mellitus Refills: 4 One box of sensors Printed Prescription\.br\ New Misc Prescription (Freestyle Bang 2 system) See instructions Insulin dependent type 2 diabetes mellitus pt to check BS 4 times per day Printed Prescription\.br\ New Misc Prescription (OT EVALUATION) See instructions Insulin dependent type 2 diabetes mellitus evaluate and treat better fitting wheel chair Printed Prescription\.br\ Changed insulin glargine (Basaglar KwikPen 100 units/ mL subcutaneous solution) 12 Units\.br\ Unchanged acetaminophen (acetaminophen 500 mg Tab)\.br\ Unchanged acetaminophen-oxycodo ne (acetaminophen-oxycod one 300 mg-5 mg oral tablet) 1 Tablets By Mouth Every 6 hours as needed for for pain\.br\ Unchanged atorvastatin (atorvastatin 80 mg Tab)\.br\ Unchanged cetirizine (cetirizine 5 mg oral tablet)\.br\ Unchanged clopidogrel (Plavix 75 mg Tab)\.br\ Unchanged cranberry (Cranberry oral tablet)\.br\ Unchanged docusate (Colace 100 mg Cap) 1 Capsules By Mouth 2 times a day as needed for for constipation\.br\ Unchanged donepezil (donepezil 10 mg Tab)\.br\ Unchanged dulaglutide (Trulicity Pen 1.5 mg/ 0.5 mL subcutaneous solution)\.br\ Unchanged fluconazole (Diflucan 150 mg Tab) 1 Tablets By Mouth Once UTI (urinary tract infection)\.br\ Unchanged furosemide (furosemide 40 mg Tab)\.br\ Unchanged gabapentin (gabapentin 600 mg Tab)\.br\ Unchanged glimepiride (glimepiride 2 mg Tab)\.br\ Unchanged insulin aspart (Insulin Aspart FlexPen 100 units/ mL injectable solution)\.br\ Unchanged memantine (memantine 10 mg Tab)\.br\ Unchanged Misc Prescription (Misc DME Prescription) See instructions BD ultra fine pen needles 31G X / 16. Use to inject insulin as directed. Dx E10.42 \.br\ Unchanged nitroglycerin (nitroglycerin 0.4 mg sublingual Tab) 1 Tablets Sublingual Every 5 minutes as needed for for chest pain\.br\ Unchanged ondansetron (ondansetron 4 mg Tab)\.br\ Unchanged oxybutynin (oxybutynin 15 mg ER Tab)\.br\ Unchanged venlafaxine (venlafaxine 150 mg Cap-ER)\.br\ Allergies\.br\ sulfa drugs (Unknown)\.br\ Problems\.br\ Ongoing - Any problem that you are currently receiving treatment for.\.br\ BMI 50.0-59.9, adult\.br\ Insulin dependent type 2 diabetes mellitus\.br\ Obesity\.br\ UTI (urinary tract infection)\.br\ \.br\ [facility] Patient Correspondenceon Patient Correspondence [id number]#1.00CD:127 Normal [facility] XR shoulder LT min 2V*on XR shoulder LT min 2V* [facility] Main [place] [address] [place] [address] XRay Report Signed Patient: Malcom Knowles MR#: [id number] : 1955 Acct:[id number] Age/Sex: 67 / F ADM Date: 07/01/23 Loc: [facility] Room: Type: [facility] Attending Dr: Lizandro Martins MD Copies to: Lizandro Martins MD Ordering Provider: Lizandro Martins MD Date of Service: 07/01/23 XR/XR shoulder LT min 2V*: Acute pain of left shoulder XR shoulder LT min 2V* 07/01/2023 11:10 AM SIGNS AND SYMPTOMS: Left shoulder pain with decreased range of motion PROTOCOL: Frontal, Grashey, scapular Y views of the left shoulder COMPARISON: None FINDINGS: There is mild hypertrophy of the acromioclavicular joint. There is narrowing of the glenohumeral joint. There is no fracture or dislocation. The visualized left hemithorax is grossly intact. XR/XR shoulder LT min 2V* IMPRESSION: No fracture or dislocation. Degenerative changes are noted in the left shoulder, as above. Impression dictated by: Aj Baker M.D.07/01/2023 2:36 PM Dictation Location: [place] [address] Transcribed By: [facility] 07/01/23 1436 Dictated By: Aj Baker II, MD 07/01/23 1434 Signed By: 07/01/23 1436 Normal [facility] XR shoulder LT min 2V* [facility] [employer] Other XR shoulder LT min 2V* [facility] [employer] Other XR shoulder LT min 2V* [address] [place] [address] [employer] Other XR shoulder LT min 2V* [place] [address] [employer] Other XR shoulder LT min 2V* XRay Report [employer] Other XR shoulder LT min 2V* Signed [employer] Other XR shoulder LT min 2V* Patient: Malcom Knowles MR#: [id number] [employer] Other XR shoulder LT min 2V* [id number] [employer] Other XR shoulder LT min 2V* : 1955 Acct:[id number] [employer] Other XR shoulder LT min 2V* Age/Sex: 67 / F ADM Date: 07/01/23 [employer] Other XR shoulder LT min 2V* Loc: [facility] Room: Type: [facility] [employer] Other XR shoulder LT min 2V* Attending Dr: Lizandro Martins MD [employer] Other XR shoulder LT min 2V* Copies to: Lizandro Martins MD [employer] Other XR shoulder LT min 2V* Ordering Provider: Lizandro Martins MD [employer] Other XR shoulder LT min 2V* Date of Service: 07/01/23 [employer] Other XR shoulder LT min 2V* XR/XR shoulder LT min 2V*: Acute pain of left shoulder [employer] Other XR shoulder LT min 2V* XR shoulder LT min 2V* 07/01/2023 11:10 AM [employer] Other XR shoulder LT min 2V* SIGNS AND SYMPTOMS: Left shoulder pain with decreased range of motion [employer] Other XR shoulder LT min 2V* PROTOCOL: Frontal, Grashey, scapular Y views of the left shoulder [employer] Other XR shoulder LT min 2V* COMPARISON: None [employer] Other XR shoulder LT min 2V* FINDINGS: [employer] Other XR shoulder LT min 2V* There is mild hypertrophy of the acromioclavicular joint. There is narrowing of the glenohumeral [employer] Other XR shoulder LT min 2V* joint. There is no fracture or dislocation. The visualized left hemithorax is grossly intact. [employer] Other XR shoulder LT min 2V* XR/XR shoulder LT min 2V* [employer] Other XR shoulder LT min 2V* IMPRESSION: [employer] Other XR shoulder LT min 2V* No fracture or dislocation. [employer] Other XR shoulder LT min 2V* Degenerative changes are noted in the left shoulder, as above. [employer] Other XR shoulder LT min 2V* Impression dictated by: Aj Baker M.D.07/01/2023 2:36 PM [employer] Other XR shoulder LT min 2V* Dictation Location: [facility] [employer] Other XR shoulder LT min 2V* Transcribed By: PWS 07/01/23 [facility] [employer] Other XR shoulder LT min 2V* Dictated By: Aj Baker II, MD 07/01/23 [facility] [employer] Other XR shoulder LT min 2V* Signed By: [employer] Other XR shoulder LT min 2V* 07/01/23 [facility] [employer] Other Long-Term Recordson 05-23 Long-Term Records [id number]#1.00CD:127 [facility] Long-Term Recordson 05-22 Long-Term Records [id number]#1.00CD:127 [facility] Comment on above: Other Comment: PRINT ED FOR PROVIDER SIGNATURE.NDW C Urineon 05-18-2023 Bacteria identified Cx Nom (U) Microbiology PROCEDURE: Urine Culture [R1] SOURCE: U CleanCatch BODY SITE: COLLECTED DATE/TIME: 05/16/2023 15:19 EDT RECEIVED DATE/TIME: 05/16/2023 17:37 EDT START DATE/TIME: 05/16/2023 17:38 EDT FREE TEXT SOURCE: Mariangel Peña, Mariangel Pereira FINAL REPORTS Final Report [] Verified Date/Time: 05/18/2023 08:48 EDT 5,000 cfu/ml Mixed skin contaminants Performing Locations R1: This test was performed at: [facility], [address] [place] [address], [id number] , , [facility] Comment on above: Performed By: #### 2 [id number] ####[facility] [id number] [place] [address] Long-Term Recordson 05-17 Long-Term Records [id number]#1.00CD:127 Normal [facility] Ambulatory Visit Summaryon 0 05-16-2023 Ambulatory Visit Summary MALCOM KNOWLES :1955 Visit Date:05/16/2023 Ambulatory Visit Instructions Your Diagnosis UTI (urinary tract infection) Your Care Team Attending Physician - Mariangel Peña Primary Care Physician - Felix Easley MD This Is Your Medications List Misc Prescription (Misc DME Prescription) ciprofloxacin (Cipro 500 mg Tab) fluconazole (Diflucan 150 mg Tab) Discharge Vitals Heart Rate (Peripheral) 84 Respiratory Rate 18 Blood Pressure 122/76 Height 158 cm Height 62 in Weight 130.6 kg Weight 287.32 lb BMI 52.32 Medications What How Much When Why Instructions New ciprofloxacin (Cipro 500 mg Tab) 1 Tablets By Mouth Every 12 hours UTI (urinary tract infection) Duration: 7 Days Pickup at [facility] [place] Unchanged fluconazole (Diflucan 150 mg Tab) 1 Tablets By Mouth Once UTI (urinary tract infection) Unchanged Misc Prescription (Misc DME Prescription) See instructions BD ultra fine pen needles 31G X 3/ 16. Use to inject insulin as directed. Dx E10.42 Pharmacy Information [facility] [place]: [address] [place] [address] [phone] Allergies sulfa drugs (Unknown) Problems Ongoing - Any problem that you are currently receiving treatment for. UTI (urinary tract infection) Normal [facility] Family Medicine Office/Clini c Noteon 05-16-2023 Family Medicine Office/Clinic Note Chief Complaint pt here to establish care, UTI symptoms HPI Staff Malcom is a 67 year old female presenting to Establish care Establish Care: History: Any previous diagnosis: Diabetes, HTN, Frequent falls, gerd, depression, syncope History of seeing any specialist: Dr Loredo Neurologist in [place], Dr Alegria , Cardiolgoy , Urolgosit When was your last doctors visit: Last provider: Dr Waletrs Any recent labs: Health Maintenance UTD: Colonoscopy: Mammogram: Pelvic/Pap: Acute: Current issues/complaints: symptoms started 05/11/2023 blood in urine, itching, pain in bladder and burning with urination, foul ordor. urine checked today shows Rayray 15+ Pro +30 Ket 5.0 Nit negative PH 5.0 Dion 1.1 Uro negative Blood +7.5 Glucose 250 Daughter states get frequent UTI the last one was 2 months ago. Pt does see urology left ear itches denies pain. History of Present Illness pt presents today wit UTI symptoms. She lives in an assisted living at [facility]. They dipped her urine. see results above. Review of Systems PHQ Score Initial Depression Screen Score: 0 ROS - Provider Constitutional: no fever, no chills, no sweats, no fatigue Respiratory: no shortness of breath, no cough, no orthopnea, no wheezing. Cardiovascular: no chest pain, no palpitations, no edema. Neurologic: no headache, no dizziness, no numbness, no weakness. : pain and burring with urination, foul smelling Physical Exam Vitals & Measurements HR: 84(Peripheral) RR: 18 BP: 122/76 SpO2: 98% HT: 62 in HT: 158 cm WT: 130.6 kg WT: 287.32 lb BMI: 52.32 General: alert, no acute distress ENMT: oral mucosa moist, no pharyngeal erythema or exudate Cardiovascular: regular rate and rhythm, normal peripheral perfusion Respiratory: Lungs CTA, respirations non labored Extremities: no deformity, no trauma Neurological: oriented x 4, LOC appropriate for age, CN II-XII intact, motor strength equal & normal bilaterally, speech normal : + urinalysis, will send culture Assessment/Plan 1. UTI (urinary tract infection) (N39.0: Urinary tract infection, site not specified) pt presents with UTI symptoms. This is her third infection in a couple months. Will send culture. cipro prescribed. will notify pt if we need to change medication according to culture sensitively report. Pt is scheduled with urology in July. Pt slso c/o left itchy ear. large amount of dry cerumen noted on exam. instructed her to get debrox drops. she also c/o ithcy skin around abdomen. cerva sample provided. all questions answered. RTC as needed Ordered: ciprofloxacin, 500 mg = 1 tab(s), Oral, q12hr, X 7 day(s), # 14 tab(s), Refills(s) 0, [facility] [place], cm, 05/16/23 14:43:00 EDT, Height/Length Dosing, 130.6, kg, 05/16/23 14:43:00 EDT, Weight Dosing Urine Culture 2. BMI 50.0-59.9, adult (Z68.43: Body mass index [BMI] 50.0-59.9, adult) BMI eduction complete 3. Obesity (E66.9: Obesity, unspecified) see above Follow-up No qualifying data available Problem List/Past Medical History Ongoing BMI 50.0-59.9, adult Obesity UTI (urinary tract infection) Historical No qualifying data Medications Cipro 500 mg Tab, 500 mg= 1 tab(s), Oral, q12hr Diflucan 150 mg Tab, 150 mg= 1 tab(s), Oral, Once Misc DME Prescription, See Instructions, 3 refills Allergies sulfa drugs (Unknown) Social History Tobacco Never (less than 100 in lifetime) Tobacco Use:. Never Smokeless Tobacco Use:. Household tobacco concerns: No., 05/16/2023 Immunizations Vaccine Date Status Comments SARS-CoV-2 (COVID-19) mRNAMUL.ORD![id number] 09/13/2022 Recorded SARS-CoV-2 (COVID-19) mRNA-1273 vaccine 01/13/2022 Recorded 2023-05-16: [id number] SARS-CoV-2 (COVID-19) mRNA-1273 vaccine 08/09/2021 Recorded SARS-CoV-2 (COVID-19) mRNA-1273 vaccine 07/12/2021 Recorded pneumococcal 13-valent vaccine 10/18/2016 Recorded Normal [facility] Comment on above: Result Comment: Elec tronically Signed By: Mariangel Peña\.br\Date and Time Signed: 05/16/23 15:28 EDT ECHOCARDIO M/2D COMPLETEon 0 05-01-2023 ECHOCARDIO M/2D COMPLETE Patient: MALCOM KNOWLESStephanie Exam Date: 05/01/2023 : 1955 Gender:F Ordering : DR. AJ YOUNG M.D. Admission #: [id number] Family : Order #: [id number] CLICK HERE TO VIEW EXAM ECHOCARDIOGRAM REPORT PROCEDURE: CARDIO PULMONARY ECHOCARDIO M/2D COMP INDICATIONS: White matter disease, Carotid stenosis COMPARISON: None. DESCRIPTION: COMPLETE ECHOCARDIOGRAM Real-time transthoracic echocardiography with 2D, M-mode, spectral and color flow Doppler performed. QUALITY: Technical quality was good. LEFT VENTRICLE: Normal chamber size. Moderate concentric left ventricular hypertrophy. Global left ventricular systolic function is normal. LV EF: Visual estimation of left ventricular ejection fraction is 65% DIASTOLIC: Diastolic function is indeterminate. ATRIAL SEPTUM: Intact atrial septum. Agitated saline contrast does not reveal an intra-cardiac shunt. LEFT ATRIUM: Mild dilatation. RIGHT ATRIUM: Normal chamber size. RIGHT VENTRICLE: Normal chamber size. Normal right ventricular systolic function. TRICUSPID VALVE: Normal mobility and thickness. No stenosis with trivial regurgitation. No evidence of pulmonary hypertension. RVSP 26 mmHg MITRAL VALVE: Normal mobility and thickness. No evidence of mitral valve stenosis. There is no mitral annular calcification. Trivial mitral regurgitation. AORTIC VALVE: Normal trileaflet appearance. No visible sclerosis. Normal leaflet mobility. No evidence of aortic valve stenosis. No aortic regurgitation. AORTIC ROOT: Normal diameter and appearance. PULMONIC VALVE: Normal thickness and mobility. No stenosis. No regurgitation. PERICARDIUM: No evidence of pericardial effusion. IVC: Collapses with inspirations. Normal size. PLEURA: CONCLUSION: 1. Moderate concentric left ventricular hypertrophy. Normal ventricular systolic function. LVEF is 65%. 2. No significant valvular dysfunction. 3. Normal right-sided pressures. 4. Agitated saline study does not reveal an intracardiac shunt. Adult Echocardiography Procedure Report Left Ventricle Left Atrium LA Volume Index (2D A2C): 79.50 ml, 79.50 ml Mitral Valve Right Ventricle Aorta Aortic Valve AoV Area (Peak Bubba): 2.10 cm2, 2.10 cm2 AoV Area (VTI): 2.90 cm2, 2.90 cm2 Tricuspid Valve Pulmonic Valve Peak Velocity: 0.90 m/s, 1.18 m/s Peak Gradient: 4.42 mm[Hg] Right Atrium Dictated by: Jimmie Franco M.D. on 05/01/2023 at 18:14 Approved by: Jimmie Franco M.D. on 05/01/2023 at 18:18 Normal [facility] Lab Reportson 04-24-2023 Lab Reports [id number] [facility]#1.00CD:127 Normal [facility] Lab Reportson 04-17-2023 Lab Reports [id number] [facility]#1.00CD:127 Normal [facility] Office Visit (Cardiology)on 04-04-2023 Follow-up visit Diagnoses/Problems Assessed 2-vessel coronary artery disease (414.00) (I25.10) Chest pain (786.50) (R07.9) Diabetes mellitus (250.00) (E11.9) Essential hypertension (401.9) (I10) H/O non-ST elevation myocardial infarction (NSTEMI) (412) (I25.2) Hyperlipidemia (272.4) (E78.5) Morbid obesity with BMI of 50.0-59.9, adult (278.01,V85.43) (E66.01,Z68.43) Never a smoker Post PTCA (V45.82) (Z98.61) prison resident (V60.6) (Z59.3) Orders 2-vessel coronary artery disease Stop: Aspirin EC 81 MG TBEC Morbid obesity with BMI of 50.0-59.9, adult Healthy Weight Tips; Status:Complete - Retrospective Authorization; Done: [id number] Some eating tips that can help you lose weight.; Status:Complete - Retrospective Authorization; Done: [id number] SocHx: Never a smoker Tobacco Use Screening; Status:Complete; Done: [id number] Patient Instructions Please bring all medicines, vitamins, and herbal supplements with you when you come to the office. Prescriptions will not be filled unless you are compliant with your follow up appointments or have a follow up appointment scheduled as per instruction of your physician. Refills should be requested at the time of your visit. Follow up in 9 [address] Stop [address] with pcp Chief Complaint MALCOM KNOWLES is being seen for a 9 month follow-up of. History of Present Illness Patient s here for follow-up to management for coronary artery disease prior myocardial infarction and PCI to the RCA and LAD, morbid obesity, hyperlipidemia and hypertension. Since last time I saw her she remained in a local assisted living. She continues to complain of difficulty with gait. She had several falls. She describes very limited exercise tolerance. She denies complaint of chest pain, palpitation, lightheadedness, dizziness or syncope. Her recent cardiac testing CT scan and MRI noted. There is a possibility of normal pressure hydrocephalus based on her diagnostic testing. Assessment 1. Coronary artery disease, presentation with acute inferior STEMI in June 29, 2018, percutaneous coronary intervention to the mid RCA with subsequent PCI to the LAD after presentation with crescendo angina in April of last year. Patient is sedentary but no cardiac symptoms reported 2. Morbid obesity with current weight gain 3. Normal left ventricular ejection fraction. 4. diabetes mellitus. 5. Hyperlipidemia 6. hypertension 7. Reported fall recently with gait disturbance being evaluated by neurology currently patient has been placed in assisted living situation possibility of normal pressure hydrocephalus is suspected based on her symptoms. She followed by neurology Plan 1. Patient will remain on current therapy prepped stopping aspirin 2. Patient was counseled regarding losing weight, exercise and dietary modification 3. Reviewed her recent lab work 4. We'll see her back in the office in 9-month 5. Fall precaution education 6. Advised to try to lose 10-12 pounds by next time Surgical History Problems History of Cardiac catheterization with stent placement History of Complete colonoscopy History of Knee replacement History of Tonsillectomy with adenoidectomy Current Meds Medication NameInstruction Acetaminophen 500 MG Oral TabletTake 1 tablet twice daily Alpha Lipoic Acid 600 MG CAPSTAKE 1 CAPSULE Daily Aspirin EC 81 MG TBECTAKE 1 TABLET DAILY. Atorvastatin Calcium 80 MG Oral TabletTAKE 1 TABLET DAILY. Basaglar KwikPen 100 UNIT/ML Subcutaneous Solution Pen-injectorINJECT SUBCUTANEOUSLY DIRECTED. Biotin 1000 MCG Oral Tablet ChewableTake 1 tablet daily Cetirizine HCl - 10 MG Oral TabletTAKE 1 TABLET DAILY. Clopidogrel Bisulfate 75 MG Oral TabletTAKE 1 TABLET DAILY. Docusate Sodium 100 MG Oral CapsuleTAKE 1 CAPSULE Daily Donepezil HCl - 10 MG Oral TabletTake 1 tablet twice daily Famotidine 20 MG Oral TabletTAKE 1 TABLET AT BEDTIME. Furosemide 40 MG Oral TabletTake 1 tablet daily Gabapentin 600 MG Oral TabletTAKE 1 TABLET 3 TIMES DAILY. Glimepiride 2 MG Oral TabletTAKE 1 TABLET DAILY DIRECTED. Memantine HCl - 10 MG Oral TabletTAKE 1 TABLET TWICE DAILY. Nitroglycerin 0.4 MG Sublingual Tablet SublingualPLACE 1 TABLET UNDER THE TONGUE EVERY 5 MINUTES FOR UP TO 3 DOSES NEEDED FOR CHEST PAIN.CALL 911 IF PAIN PERSISTS. Novolin L 100 UNIT/ML SUSPUSE DIRECTED. Oxybutynin Chloride ER 15 MG Oral Tablet Extended Release 24 HourTake 1 tablet daily oxyCODONE-Acetamin ophen 5-325 MG Oral TabletTAKE 1 TABLET BY MOUTH EVERY 6 HOURS NEEDED Trulicity 1.5 MG/0.5ML Subcutaneous Solution Pen-injectoras directed Tums E-X 750 MG CHEWTAKE 1 TABLET Bedtime Venlafaxine HCl ER 150 MG Oral Capsule Extended Release 24 HourTAKE 1 CAPSULE ONCE DAILY WITH FOOD. Vitamin B12 1000 MCG Oral Tablet Extended ReleaseTAKE 1 TABLET DAILY DIRECTED. Vitamin D3 25 MCG (1000 UT) Oral TabletTAKE 1 TABLET DAILY. Allergies Medication FLU Recorded By: David Zelaya; 01/31/2022 12:01:30 PM (more content not included)... Normal [employer] Tobacco Screening.on 023 Adult depression screening assessment No [facility] [employer] [address] DO Work Phone: Fall risk assessment b) One or more falls in the last year [facility] [employer] [address] DO Work Phone: Tobacco use status [facility] b) No [facility] [facility] [address] DO Work Phone: Lab Reportson 04-01-2023 Lab Reports [id number]#1.00CD:127 Normal [facility] Long-Term Recordson 03-20 Long-Term Records [id number]#1.00CD:127 Normal [facility] Long-Term Recordson 02-19 Long-Term Records [id number] C32F#1.00CD:127 [address] [facility] CT CSPINE WO CONon 3 CT CSPINE WO CON EXAMINATION: CT CSPINE WO CON HISTORY: Bruising noted behind left ear TECHNIQUE: Helically acquired images were obtained of the cervical spine. 2D reformatted images were reviewed. A radiation dose optimization technique was used for this scan. IV Contrast dosage and agent: None. COMPARISON: 10/16/2021 FINDINGS: VERTEBRAE: There is mild reversal of the normal cervical lordosis. This could be the consequence of patient positioning, muscular spasm or degenerative disc disease. A fracture is not identified. The craniocervical junction and cervicothoracic junction are normal. DISCS: There is moderate to advanced loss of disc space height at the C4-5 and C5-6 levels, associated with moderate degenerative endplate remodeling, unchanged since the prior. SPINAL CANAL: No high-grade spinal stenosis is identified. NEURAL FORAMINA: Multilevel degenerative disc disease and degenerative facet hypertrophy result in moderate to advanced narrowing of scattered neural foramina. This is most conspicuous at the C5-6 level. NECK SOFT TISSUES: There is no prevertebral soft tissue swelling. No cervical adenopathy is identified. No carotid artery calcifications are identified. LUNG APICES: Clear. IMPRESSION: 1. No cervical spinal fracture detected. Electronically authenticated by: THONY JOHNSTON Date: 2023-01-24 19:[address] [facility] [address] HEAD WO CONon 01-24-2023 CT HEAD WO CON EXAMINATION: CT HEAD WO CON HISTORY: Unspecified fall with head injury. The patient is currently taking Plavix. COMPARISON: 12/25/2021 TECHNIQUE: CT examination of the head without IV contrast. Sagittal and coronal reconstructions were obtained. Dose reduction techniques were achieved by using automated exposure control and/or adjustment of mA and/or kV according to patient size and/or use of iterative reconstruction technique. FINDINGS: The ventricles aren't enlarged, the lateral ventricles are symmetric and the third ventricles in the midline. The sylvian fissures and cortical sulci are prominent in size. There is no evidence of an intracranial hemorrhage, mass lesion or apparent acute infarct. Patchy diminished attenuation is seen rather diffusely throughout the deep white matter. The cerebellum and visualized brainstem are intact. The visualized paranasal sinuses are clear. The middle ears are aerated. The mastoid sinuses are clear. There is no apparent acute skull fracture. IMPRESSION: There is no evidence of an intracranial hemorrhage, mass lesion or apparent acute infarct. Diffuse atrophy is noted. Patchy diminished attenuation the deep white matter is unchanged and consistent with early small vessel ischemic change. The visualized paranasal sinuses are clear. There is no apparent acute skull fracture. The overall appearance has not changed significantly. Electronically authenticated by: FLORIN ZHONG Date: 2023-01-24 18:51 Normal [facility] XR SHOULDER LT 2V or >on XR SHOULDER LT 2V or > EXAM: XR SHOULDER LT 2V or > HISTORY: Unspecified fall COMPARISON: Shoulder x-rays 08/27/2022 TECHNIQUE: 3 views FINDINGS: IMPRESSION: No visualized fracture, dislocation, subluxation or osseous lesion. Moderate degenerative changes of the acromial clinically joint. Electronically authenticated by: NIALL CELIS Date: 2023-01-24 18:58 Normal [facility] MRI BRAIN WO CONon 3 MRI BRAIN WO CON EXAMINATION: MRI BRAIN WO CON, 01/18/2023 8:23 AM EST HISTORY: Communicating hydrocephalus ; frequent falls COMPARISON: MRI brain 10/16/2021 TECHNIQUE: MRI of the brain was performed without IV contrast. FINDINGS: CEREBRUM: No edema, hemorrhage, mass, acute infarction, or inappropriate atrophy. CEREBELLUM: No edema, hemorrhage, mass, acute infarction, or inappropriate atrophy. BRAINSTEM: No edema, hemorrhage, mass, acute infarction, or inappropriate atrophy. CSF SPACES: Symmetric enlargement of the ventricular system, out of proportion to size of sulci, but unchanged. SKULL: No mass or other significant visible lesion. SINUSES: Limited views demonstrate no significant mucosal thickening or fluid. ORBITS: Limited views are unremarkable. OTHER: Negative. IMPRESSION: 1. Stable enlargement of ventricular system consistent with chronic, communicating hydrocephalus. No acute findings. 2. Mild age consistent atrophy and chronic small vessel ischemic changes. Electronically authenticated by: ADAMS RAGSDALE Date: 2023-01-18 15:07 Normal [facility] US CAROTID ART BILon 023 US CAROTID ART DION EXAMINATION: US CAROTID ART IDON HISTORY: Bilateral carotid artery occlusion COMPARISON: No relevant comparison available. TECHNIQUE: Duplex Doppler ultrasound analysis of carotid and vertebral arteries. . Bilateral carotid arterial duplex examination was performed using B-mode, color flow and spectral analysis. Carotid stenosis is reported according to validated velocity parameters, similar to NASCET criteria. FINDINGS: RIGHT CAROTID ARTERY: No visible stenosis or significant plaque. RIGHT VERTEBRAL: Antegrade flow. Subclavian: PSV: 203.1 cm/s EDV: 8.6 cm/s CCA: Prox: PSV: 88.7 cm/s EDV: 14.4 cm/s Mid: PSV: 84.2 cm/s EDV: 8.4 cm/s Distal: PSV: 66.6 cm/s EDV: 7.3 cm/s BULB: PSV: 46.8 cm/s EDV: 5.8 cm/s ICA: Prox: PSV: 44.1 cm/s EDV: 10.1 cm/s Mid: PSV: 114.1 cm/s EDV: 17.1 cm/s Distal: PSV: 61.6 cm/s EDV: 9.8 cm/s ECA: PSV: 55.1 cm/s EDV: 6.0 cm/s VERTEBRAL: PSV: 43.3 cm/s EDV: 9.2 cm/s ICA/CCA ratio: PSV: 1.7 EDV: 2.4 LEFT CAROTID ARTERY: No visible stenosis or significant plaque. LEFT VERTEBRAL: Antegrade flow. Subclavian: PSV: 109.6 cm/s EDV: 0.0 cm/s CCA: Prox: PSV: 97.8 cm/s EDV: 18.9 cm/s Mid: PSV: 80.0 cm/s EDV: 13.0 cm/s Distal: PSV: 72.1 cm/s EDV: 9.1 cm/s BULB: PSV: 62.3 cm/s EDV: 13.0 cm/s ICA: Prox: PSV: 68.0 cm/s EDV: 17.6 cm/s Mid: PSV: 123.7 cm/s EDV: 18.7 cm/s Distal: PSV: 131.3 cm/s EDV: 28.8 cm/s ECA: PSV: 104.4 cm/s EDV: 5.8 cm/s VERTEBRAL: PSV: 63.9 cm/s EDV: 18.7 cm/s ICA/CCA ratio: PSV: 1.8 EDV: 3.2 IMPRESSION: 1. 0-49% flow stenosis. 2. No significant atherosclerotic disease. 3. Irregular heartbeat. Spectral Doppler US Thresholds Stenosis (%) PSV (cm/sec) VICA/VCCA 0-49 <150 <2.5 50-69 150-225 2.5-4.0 >70 >225 >4.0 Electronically authenticated by: ADAMS RAGSDALE Date: 2023-01-18 14:45 Normal [facility] CBC AUTO DIFFon 12-26-2022 BASO # 0.1 103/ul Normal 0.0-0.1 [facility] Comment on above: Performed By: #### A CET, CMP #### [facility] [address] [address] [address] Gilberto Ocampo Basophils/100 WBC (Bld) 0.8 % Normal 0.2-2.0 [facility] Comment on above: Performed By: #### A CET, CMP #### [facility] [address] [address] [address] Gilberto Ocampo EO # 0.6 103/ul Normal 0.0-0.7 [facility] Comment on above: Performed By: #### A CET, CMP #### [facility] [address] [address] [address] Gilberto Ocampo Eosinophils/100 WBC (Bld) 7.7 % Critically high 0.9-7.0 [facility] Comment on above: Performed By: #### A CET, CMP #### [facility] [address] [address] [address] Gilberto Ocampo Erythrocyte distribution width (RBC) [Ratio] 14.0 % Normal 11.0-15.0 [facility] Comment on above: Performed By: #### A CET, CMP #### [facility] [address] [address] [address] Gilberto Ocampo Hematocrit (Bld) [Volume fraction] 39.0 % Normal 36.0-48.0 [facility] Comment on above: Performed By: #### A CET, CMP #### [facility] [address] [address] [address] Gilberto Ocampo Hemoglobin (Bld) [Mass/Vol] 11.8 g/dL Critically low 12.0-16.0 [facility] Comment on above: Performed By: #### A CET, CMP #### [facility] [address] [place] [address] Dr. Gilberto Ocampo IG # 0.02 10e3/ul Normal 0.00-0.03 [facility] Comment on above: Performed By: #### A CET, CMP #### [facility] [address] [place] [address] Dr. Gilberto Ocampo IG % 0.3 % Normal 0.0-0.5 [facility] Comment on above: Performed By: #### A CET, CMP #### [facility] [address] [place] [address] Dr. Gilberto Ocampo LYMPH # 2.1 103/ul Normal 1.2-3.8 [facility] Comment on above: Performed By: #### A CET, CMP #### [facility] [address] [place] [address] Dr. Gilberto Ocampo Lymphocytes/100 WBC (Bld) 29.2 % Normal 20.5-60.0 [facility] Comment on above: Performed By: #### A CET, CMP #### [facility] [address] [place] [address] Dr. Gilberto Ocampo MANUAL DIFF REQ NO Normal [facility] Comment on above: Performed By: #### A CET, CMP #### [facility] [address] [place] [address] Dr. Gilberto Ocampo MCH (RBC) [Entitic mass] 29.2 pg Normal 26.7-34.0 [facility] Comment on above: Performed By: #### A CET, CMP #### [facility] [address] [place] [address] Dr. Gilberto Ocampo MCHC (RBC) [Mass/Vol] 30.3 g/dL Normal 29.9-35.2 [facility] Comment on above: Performed By: #### A CET, CMP #### [facility] [address] [place] [address] Dr. Gilberto Ocampo MCV (RBC) [Entitic vol] 96.5 fL Normal 81.0-99.0 [facility] Comment on above: Performed By: #### A CET, CMP #### [facility] [address] [place] [address] Dr. Gilberto Ocampo MONO # 0.6 103/ul Normal 0.3-0.8 [facility] Comment on above: Performed By: #### A CET, CMP #### [facility] [address] [place] [address] Dr. Gilberto Ocampo Monocytes/100 WBC (Bld) 9.0 % Normal 1.7-12.0 [facility] Comment on above: Performed By: #### A CET, CMP #### [facility] [address] [place] [address] Dr. Gilbreto Ocampo NEUT # 3.8 103/ul Normal 1.4-6.5 [facility] Comment on above: Performed By: #### A CET, CMP #### [facility] [address] [place] [address] Dr. Gilberto Ocmapo Neutrophils/100 WBC (Bld) 53.0 % Normal 43.0-75.0 [facility] Comment on above: Performed By: #### A CET, CMP #### [facility] [address] [place] [address] Dr. Gilberto Ocampo Platelet mean volume (Bld) [Entitic vol] 11.9 fL Normal 9.5-13.5 [facility] Comment on above: Performed By: #### A CET, CMP #### [facility] [address] [place] [address] Dr. Gilberto Ocampo PLT 209 103/ul Normal 150-450 [facility] Comment on above: Performed By: #### A CET, CMP #### [facility] [address] [place] [address] Dr. Gilberto Ocampo RBC 4.04 106/ul Critically low 4.20-5.40 [facility] Comment on above: Performed By: #### A CET, CMP #### [facility] [address] [place] [address] Dr. Gilberto cOampo WBC 7.1 103/ul Normal 4.0-11.0 [facility] Comment on above: Performed By: #### A CET, CMP #### [facility] [address] [place] [address] Dr. Gilberto Ocampo GLYCOHEMOGLOBIN A1Con 2022 ADA RECOMMENDATION SEE BELOW Normal [facility] Comment on above: Result Comment: ADA RECOMMENDED LIMIT 4.0 - 6.0 ADA THERAPEUTIC TARGET < 7.0 ACTION SUGGESTED > 7.0 Performed By: #### A 1C #### [facility] [address] [place] [address] Dr. Gilberto Ocampo Glucose [Mass/Vol] 189 mg/dL Normal [facility] Comment on above: Performed By: #### A 1C #### [facility] [address] [place] [address] Dr. Gilberto Ocampo HbA1c (Bld) [Mass fraction] 8.2 % Critically high 4.5-6.2 [facility] Comment on above: Performed By: #### A 1C #### [facility] [address] [place] [address] Dr. Gilberto Ocampo PROF 14(COMP METB)on 023 Albumin [Mass/Vol] 3.0 g/dL Critically low 3.4-5.0 [facility] Comment on above: Performed By: #### C MP #### [facility] [address] [place] [address] Dr. Gilberto Ocampo Albumin/Globulin [Mass ratio] 0.8 {ratio} Normal [facility] Comment on above: Performed By: #### C MP #### [facility] [address] [place] [address] Dr. Gilberto Ocampo ALP [Catalytic activity/Vol] 89 U/L Normal 46-116 [facility] Comment on above: Performed By: #### C MP #### [facility] [address] [place] [address] Dr. Gilberto Ocampo ALT [Catalytic activity/Vol] 22 U/L Normal 14-59 [facility] Comment on above: Performed By: #### C MP #### [facility] [address] [address] [address] Gilberto Ocampo Anion gap [Moles/Vol] 12.4 mmol/L Normal [facility] Comment on above: Performed By: #### C MP #### [facility] [address] [address] [address] Gilberto Ocampo AST [Catalytic activity/Vol] 19 U/L Normal 15-37 [facility] Comment on above: Performed By: #### C MP #### [facility] [address] [address] [address] Gilberto Ocampo Bilirubin [Mass/Vol] 0.6 mg/dL Normal 0.2-1.0 [facility] Comment on above: Performed By: #### C MP #### [facility] [address] [address] [address] Gilberto Ocampo Calcium [Mass/Vol] 8.9 mg/dL Normal 8.5-10.1 [facility] Comment on above: Performed By: #### C MP #### [facility] [address] [place] [address] Dr. Gilberto Ocampo Chloride [Moles/Vol] 103 mmol/L Normal 98-107 [facility] Comment on above: Performed By: #### C MP #### [facility] [address] [address] [address] Gilberto Ocampo CO2 [Moles/Vol] 28.5 mmol/L Normal 21.0-32.0 [facility] Comment on above: Performed By: #### C MP #### [facility] [address] [address] [address] Gilberto Ocmapo Creatinine [Mass/Vol] 1.52 mg/dL Critically high 0.55-1.02 [facility] Comment on above: Performed By: #### C MP #### [facility] [address] [address] [address] Gilberto Ocampo EGFR-AF BAHAMIAN 41 mL/min/1.73m2 Critically low >=60 [facility] Comment on above: Performed By: #### C MP #### [facility] [address] [place] [address] Dr. Gilberto Ocampo EGFR-NON AF BAHAMIAN 34 mL/min/1.73m2 Critically low >=60 [facility] Comment on above: Performed By: #### C MP #### [facility] [address] [address] [address] Gilberto Ocampo Globulin (S) [Mass/Vol] 3.8 g/dL Normal [facility] Comment on above: Performed By: #### C MP #### [facility] [address] [address] [address] Gilberto Ocampo Glucose [Mass/Vol] 206 mg/dL Critically high 74-106 [facility] Comment on above: Performed By: #### C MP #### [facility] [address] [address] [address] Gilberto Ocampo Potassium [Moles/Vol] 3.9 mmol/L Normal 3.5-5.1 [facility] Comment on above: Performed By: #### C MP #### [facility] [address] [address] [address] Gilberto Ocampo Protein [Mass/Vol] 6.8 g/dL Normal 6.4-8.2 [facility] Comment on above: Performed By: #### C MP #### [facility] [address] [address] [address] Gilberto Ocampo Sodium [Moles/Vol] 140 mmol/L Normal 136-145 [facility] Comment on above: Performed By: #### C MP #### [facility] [address] [address] [address] Gilberto Ocampo Urea nitrogen [Mass/Vol] 16.0 mg/dL Normal 7.0-18.0 [facility] Comment on above: Performed By: #### C MP #### [facility] [address] [place] [address] Dr. Gilberto Ocampo Urea nitrogen/Creatinin e [Mass ratio] 10.5 mg/mg Normal [facility] Comment on above: Performed By: #### C MP #### [facility] [address] [address] [address] Gilberto Ocampo CULTURE URINEon 12-17-2022 CULTURE URINE Culture Observations: NO GROWTH. Normal [facility] Comment on above: Performed By: #### A CET, CMP #### [facility] [address] [place] [address] Dr. Gilberto Ocampo UA RANDOMon 12-17-2022 Bilirubin Ql (U) Negative Normal NEGATIVE [facility] Comment on above: Performed By: #### A CET, CMP #### [facility] [address] [place] [address] Dr. Gilberto Ocampo Clarity (U) CLEAR Normal CLEAR [facility] Comment on above: Performed By: #### A CET, CMP #### [facility] [address] [place] [address] Dr. Gilberto Ocampo Color (U) YELLOW Normal YELLOW [facility] Comment on above: Performed By: #### A CET, CMP #### [facility] [address] [place] [address] Dr. Gilberto Ocampo Glucose Ql (U) 250 mg/dl Abnormal NEGATIVE [facility] Comment on above: Performed By: #### A CET, CMP #### [facility] [address] [place] [address] Dr. Gilberto Ocampo Hemoglobin Ql (U) TRACE-INTACT Abnormal NEGATIVE [facility] Comment on above: Performed By: #### A CET, CMP #### [facility] [address] [place] [address] Dr. Gilberto Ocampo Ketones Ql (U) TRACE Abnormal NEGATIVE [facility] Comment on above: Performed By: #### A CET, CMP #### [facility] [address] [place] [address] Dr. Gilberto Ocampo LEUKOCYTES Negative Normal NEGATIVE [facility] Comment on above: Performed By: #### A CET, CMP #### [facility] [address] [place] [address] Dr. Gilberto Ocampo Nitrite Ql (U) Negative Normal NEGATIVE [facility] Comment on above: Performed By: #### A CET, CMP #### [facility] [address] [place] [address] Dr. Gilberto Ocampo pH (U) 5.0 [pH] Normal 5-9 [facility] Comment on above: Performed By: #### A CET, CMP #### [facility] [address] [address] [address] Gilberto Ocampo SPEC GRAVITY >=1.030 Abnormal 1.005-<=1.025 [facility] Comment on above: Performed By: #### A CET, CMP #### [facility] [address] [place] [address] Dr. Gilberto Ocampo UA PROTEIN TRACE Normal NEGATIVE/ TRACE [facility] Comment on above: Performed By: #### A CET, CMP #### [facility] [address] [place] [address] Dr. Gilberto Ocampo Urobilinogen Qn (U) 0.2 {Torres'U}/dL Normal 0.2 - 1.0 [facility] Comment on above: Performed By: #### A CET, CMP #### [facility] [address] [place] [address] Dr. Gilberto Ocampo XR HUMERUS RT MIN 2 Von 11-01 XR HUMERUS RT MIN 2 V EXAM: XR HUMERUS RT MIN 2 V HISTORY: Pain COMPARISON: 08/27/2022 TECHNIQUE: 3 views right humerus. FINDINGS: Exam is limited by patient body habitus and positioning. There is dislocation at the glenohumeral joint, likely anterior. No obvious fractures on these views. Degenerative change of the AC joint with apparently preserved alignment. IMPRESSION: Dislocation at the glenohumeral joint, likely anterior. Electronically authenticated by: THONY CLARK Date: 2022-11-17 02:30 Normal [facility] XR SHOULDER RT 2V or >on XR SHOULDER RT 2V or > EXAM: XR SHOULDER RT 2V or > HISTORY: Pain COMPARISON: Earlier same day humerus x-ray TECHNIQUE AND FINDINGS: 3 views of the shoulder. There has been successful reduction of the previous shoulder dislocation, the glenohumeral alignment now appears within normal limits. No obvious fractures. AC joint appears maintained with moderate degenerative changes. Unremarkable soft tissues without radiopaque foreign body seen. IMPRESSION: Successful reduction of the previous shoulder dislocation. Electronically authenticated by: THONY CLARK Date: 2022-11-17 03:30 Normal [facility] CULTURE URINEon 11-12-2022 CULTURE URINE Isolate 1 Escherichia coli >100,000 cfu/mL of ORGANISM 1 Escherichia coli ANTIBIOTIC M.I.C RX STATUS Ampicillin <=2 S F Ampicillin/Sulbact am <=2 S F Piperacillin/Tazob actam <=4 S F Cefazolin <=4 S F Ceftazidime <=1 S F Ceftriaxone <=1 S F Ertapenem <=0.5 S F Imipenem <=0.25 S F Amikacin <=2 S F Gentamicin <=1 S F Tobramycin <=1 S F Ciprofloxacin <=0.25 S F Levofloxacin <=0.12 S F Nitrofurantoin <=16 S F Trimethoprim/Sulfa methoxazole <=20 S F Normal [facility] Comment on above: Performed By: #### A CET, CMP #### [facility] [address] [place] [address] Dr. Gilberto Ocampo CULTURE URINEon 11-11-2022 CULTURE URINE Isolate 1 Escherichia coli >100,000 cfu/mL of ORGANISM 1 Escherichia coli ANTIBIOTIC M.I.C RX STATUS Ampicillin <=2 S F Ampicillin/Sulbact am <=2 S F Piperacillin/Tazob actam <=4 S F Cefazolin <=4 S F Ceftazidime <=1 S F Ceftriaxone <=1 S F Ertapenem <=0.5 S F Imipenem <=0.25 S F Amikacin <=2 S F Gentamicin <=1 S F Tobramycin <=1 S F Ciprofloxacin <=0.25 S F Levofloxacin <=0.12 S F Nitrofurantoin <=16 S F Trimethoprim/Sulfa methoxazole <=20 S F Normal [facility] Comment on above: Performed By: #### A CET, CMP #### [facility] [address] [place] [address] Dr. Gilberto Ocampo ACETAMINOPHENon 11-09-2022 Acetaminophen [Mass/Vol] ug/mL Critically low 10.0-30.0 [facility] Comment on above: Performed By: #### A CET, CMP #### [facility] [address] [place] [address] Dr. Gilberto Ocampo CBC AUTO DIFFon 11-09-2022 BASO # 0.0 103/ul Normal 0.0-0.1 [facility] Comment on above: Performed By: #### C BC #### [facility] [address] [place] [address] Dr. Gilberto Ocampo Basophils/100 WBC (Bld) 0.5 % Normal 0.2-2.0 [facility] Comment on above: Performed By: #### C BC #### [facility] [address] [place] [address] Dr. Gilberto Ocampo EO # 0.4 103/ul Normal 0.0-0.7 [facility] Comment on above: Performed By: #### C BC #### [facility] [address] [place] [address] Dr. Gilberto Ocampo Eosinophils/100 WBC (Bld) 6.4 % Normal 0.9-7.0 [facility] Comment on above: Performed By: #### C BC #### [facility] [address] [place] [address] Dr. Gilberto Ocampo Erythrocyte distribution width (RBC) [Ratio] 13.7 % Normal 11.0-15.0 [facility] Comment on above: Performed By: #### C BC #### [facility] [address] [place] [address] Dr. Gilberto Ocampo Hematocrit (Bld) [Volume fraction] 38.1 % Normal 36.0-48.0 [facility] Comment on above: Performed By: #### C BC #### [facility] [address] [place] [address] Dr. Gilberto Ocampo Hemoglobin (Bld) [Mass/Vol] 12.2 g/dL Normal 12.0-16.0 [facility] Comment on above: Performed By: #### C BC #### [facility] [address] [place] [address] Dr. Gilberto Ocampo IG # 0.02 10e3/ul Normal 0.00-0.03 [facility] Comment on above: Performed By: #### C BC #### [facility] [address] [place] [address] Dr. Gilberto Ocampo IG % 0.3 % Normal 0.0-0.5 [facility] Comment on above: Performed By: #### C BC #### [facility] [address] [place] [address] Dr. Gilberto Ocampo LYMPH # 2.1 103/ul Normal 1.2-3.8 [facility] Comment on above: Performed By: #### C BC #### [facility] [address] [place] [address] Dr. Gilberto Ocampo Lymphocytes/100 WBC (Bld) 33.1 % Normal 20.5-60.0 [facility] Comment on above: Performed By: #### C BC #### [facility] [address] [place] [address] Dr. Gilberto Ocampo MANUAL DIFF REQ NO Normal [facility] Comment on above: Performed By: #### C BC #### [facility] [address] [place] [address] Dr. Gilberto Ocampo MCH (RBC) [Entitic mass] 29.6 pg Normal 26.7-34.0 [facility] Comment on above: Performed By: #### C BC #### [facility] [address] [place] [address] Dr. Gilberto Ocampo MCHC (RBC) [Mass/Vol] 32.0 g/dL Normal 29.9-35.2 [facility] Comment on above: Performed By: #### C BC #### [facility] [address] [place] [address] Dr. Gilberto Ocampo MCV (RBC) [Entitic vol] 92.5 fL Normal 81.0-99.0 [facility] Comment on above: Performed By: #### C BC #### [facility] [address] [place] [address] Dr. Gilberto Ocampo MONO # 0.7 103/ul Normal 0.3-0.8 [facility] Comment on above: Performed By: #### C BC #### [facility] [address] [place] [address] Dr. Gilberto Ocampo Monocytes/100 WBC (Bld) 11.6 % Normal 1.7-12.0 [facility] Comment on above: Performed By: #### C BC #### [facility] [address] [place] [address] Dr. Gilberto Ocampo NEUT # 3.0 103/ul Normal 1.4-6.5 [facility] Comment on above: Performed By: #### C BC #### [facility] [address] [place] [address] Dr. Gilberto Ocampo Neutrophils/100 WBC (Bld) 48.1 % Normal 43.0-75.0 [facility] Comment on above: Performed By: #### C BC #### [facility] [address] [place] [address] Dr. Gilberto Ocampo Platelet mean volume (Bld) [Entitic vol] 10.8 fL Normal 9.5-13.5 [facility] Comment on above: Performed By: #### C BC #### [facility] [address] [place] [address] Dr. Gilberto Ocampo PLT 212 103/ul Normal 150-450 [facility] Comment on above: Performed By: #### C BC #### [facility] [address] [place] [address] Dr. Gilberto Ocampo RBC 4.12 106/ul Critically low 4.20-5.40 [facility] Comment on above: Performed By: #### C BC #### [facility] [address] [place] [address] Dr. Gilberto Ocampo WBC 6.3 103/ul Normal 4.0-11.0 [facility] Comment on above: Performed By: #### C BC #### [facility] [address] [place] [address] Dr. Gilberto Ocampo DRUG SCREEN RAPID (URINE)on 11-09-2022 AMP Negative Normal NEGATIVE [facility] Comment on above: Performed By: #### U ZAID JAIN #### [facility] [address] [place] [address] Dr. Gilberto Ocampo BAR Negative Normal NEGATIVE [facility] Comment on above: Performed By: #### U ZAID JAIN #### [facility] [address] [address] [address] Gilberto Ocampo BUP Negative Normal NEGATIVE [facility] Comment on above: Performed By: #### U ACSIND, UMICRO #### [facility] [address] [address] [address] Gilberto Ocampo BZO Negative Normal NEGATIVE [facility] Comment on above: Performed By: #### U ACSIND, UMICRO #### [facility] [address] [address] [address] Gilberto Ocampo CARLIE Negative Normal NEGATIVE [facility] Comment on above: Performed By: #### U ACSIND, UMICRO #### [facility] [address] [place] [address] Dr. Gilberto Ocampo CUT-OFFS SEE BELOW Normal [facility] Comment on above: Result Comment: AMP (Amphetamine): 500ng/mL, BAR (Barbituates): 200 ng/mL, BZO (Benzodiazepines): 150 ng/mL, BUP (Buprenorphine): 10 ng/mL, CARLIE (Cocaine): 150 ng/mL, mAMP (Methamphetamine): 500 ng/mL, MTD (Methadone): 200 ng/mL, OPI (Opiates): 100 ng/mL, OXY (Oxycodone): 100 ng/mL, PCP (Phencyclidine): 25 ng/mL, PPX (Propoxyphene): 300 ng/mL, THC (Cannabinoids): 50 ng/mL, TCA (Trycyclic Antidepressants): 300 ng/mL Performed By: #### U ACSIND, UMICRO #### [facility] [address] [place] [address] Dr. Gilberto Ocampo DRUG CUT HEADER DRUG CLASS TEST SYSTEM CUT-OFF CONCENTRATIONS ARE FOLLOWS: Normal [facility] Comment on above: Performed By: #### U ACSIND, UMICRO #### [facility] [address] [place] [address] Dr. Gilberto Ocampo mAMP Negative Normal NEGATIVE [facility] Comment on above: Performed By: #### U ACSIND, UMICRO #### [facility] [address] [place] [address] Dr. Gilberto Ocampo MTD Negative Normal NEGATIVE [facility] Comment on above: Performed By: #### U ACSIND, UMICRO #### [facility] [address] [place] [address] Dr. Gilberto Ocampo OPI Negative Normal NEGATIVE [facility] Comment on above: Performed By: #### U ACSIND, UMICRO #### [facility] [address] [address] [address] Gilberto Ocampo OXY Negative Normal NEGATIVE [facility] Comment on above: Performed By: #### U ACSIND, UMICRO #### [facility] [address] [place] [address] Dr. Gilberto Ocampo PCP Negative Normal NEGATIVE [facility] Comment on above: Performed By: #### U ACSIND, UMICRO #### [facility] [address] [place] [address] Dr. Gilberto Ocampo PPX Negative Normal NEGATIVE [facility] Comment on above: Performed By: #### U ACSIND, UMICRO #### [facility] [address] [place] [address] Dr. Gilberto Ocampo TCA Negative Normal NEGATIVE [facility] Comment on above: Performed By: #### U ACSIND, UMICRO #### [facility] [address] [place] [address] Dr. Gilberto Ocampo THC Negative Normal NEGATIVE [facility] Comment on above: Performed By: #### U ACSIND, UMICRO #### [facility] [address] [place] [address] Dr. Gilberto Ocampo ER URINE PROFILEon 2 Clarity (U) CLOUDY Abnormal CLEAR [facility] Comment on above: Performed By: #### U ACSIND, UMICRO #### [facility] [address] [place] [address] Dr. Gilberto ROWAN A micrscopic examination will be performed if indicated. Normal [facility] Comment on above: Performed By: #### U ACSIND, UMICRO #### [facility] [address] [place] [address] Dr. Gilberto Ocampo pH (U) 6.0 [pH] Normal 5-9 [facility] Comment on above: Performed By: #### U ACSWALI UMICRO #### [facility] [address] [address] [address] Gilberto Ocampo Protein (U) [Mass/Vol] 30 mg/dL Abnormal NEGATIVE/ TRACE [facility] Comment on above: Performed By: #### U ACSWALI, UMICRO #### [facility] [address] [address] [address] Gilberto Ocamop ETHANOL (BLD ALC)on 11-09-20 22 ALC NOTE NOTE: 80 mg/dl is the legal limit for a blood alcohol level Normal [facility] Comment on above: Performed By: #### E TH #### [facility] [address] [place] [place] [address] Dr. Gilberto Ocampo Ethanol [Mass/Vol] mg/dL Normal [facility] Comment on above: Performed By: #### E TH #### [facility] [address] [place] [address] Dr. Gilberto Ocampo GLYCOHEMOGLOBIN A1Con 2021 ADA RECOMMENDATION SEE BELOW Normal [facility] Comment on above: Result Comment: ADA RECOMMENDED LIMIT 4.0 - 6.0 ADA THERAPEUTIC TARGET < 7.0 ACTION SUGGESTED > 7.0 Performed By: #### U ACSWALI UMICRO #### [facility] [address] [place] [address] Dr. Gilberto Ocampo Glucose [Mass/Vol] 177 mg/dL Normal [facility] Comment on above: Performed By: #### U ACSWALI, UMICRO #### [facility] [address] [place] [address] Dr. Gilberto Ocampo HbA1c (Bld) [Mass fraction] 7.8 % Critically high 4.5-6.2 [facility] Comment on above: Performed By: #### U ACSWALI, UMICRO #### [facility] [address] [place] [address] Dr. Gilberto Ocampo LIPID PROFILEon 11-09-2022 CHOL-HDL RATIO NORM SEE BELOW Normal [facility] Comment on above: Result Comment: 3.3 - 4.4 LOW RISK 4.4 - 7.1 AVERAGE RISK 7.1 - 11.0 MODERATE RISK >11.0 HIGH RISK Performed By: #### L IPID #### [facility] [address] [address] [address] Gilberto Ocampo Cholesterol [Mass/Vol] 111 mg/dL Normal <=200 [facility] Comment on above: Performed By: #### L IPID #### [facility] [address] [address] [address] Gilberto Ocampo Cholesterol in HDL [Mass/Vol] 64 mg/dL Critically high 40-60 [facility] Comment on above: Performed By: #### L IPID #### [facility] [address] [address] [address] Gilberto Ocampo Cholesterol in LDL [Mass/Vol] 28.6 mg/dL Normal [facility] Comment on above: Performed By: #### L IPID #### [facility] [address] [address] [address] Gilberto Ocampo Cholesterol.total/ Cholesterol in HDL [Mass ratio] 1.7 {ratio} Normal [facility] Comment on above: Performed By: #### L IPID #### [facility] [address] [address] [address] Gilberto Ocampo HDL NORMAL > or = 60 mg/dl - LOW CARDIOVASCULAR RISK <40 mg/dl - HIGH CARDIOVASCULAR RISK Normal [facility] Comment on above: Performed By: #### L IPID #### [facility] [address] [address] [address] Gilberto Ocampo LDL CALC NORMAL SEE BELOW Normal [facility] Comment on above: Result Comment: <100 mg/dl OPTIMAL 100 - 129 mg/dl NEAR OR ABOVE OPTIMAL 130 - 159 mg/dl BORDERLINE HIGH 160 - 189 mg/dl HIGH >190 mg/dl VERY HIGH Performed By: #### L IPID #### [facility] [address] [address] [address] Gilberto Ocampo Triglyceride [Mass/Vol] 92 mg/dL Normal <=150 [facility] Comment on above: Performed By: #### L IPID #### [facility] [address] [address] [address] Gilberto Ocampo VLDL CALC 18.4 mg/dL Normal [facility] Comment on above: Performed By: #### L IPID #### [facility] [address] [address] [address] Gilberto Ocampo PROF 14(COMP METB)on 022 Albumin [Mass/Vol] 3.5 g/dL Normal 3.4-5.0 [facility] Comment on above: Performed By: #### A CET, CMP #### [facility] [address] [place] [address] Dr. Gilberto Ocampo Albumin/Globulin [Mass ratio] 0.9 {ratio} Normal [facility] Comment on above: Performed By: #### A CET, CMP #### [facility] [address] [place] [address] Dr. Gilberto Ocampo ALP [Catalytic activity/Vol] 87 U/L Normal 46-116 [facility] Comment on above: Performed By: #### A CET, CMP #### [facility] [address] [place] [address] Dr. Gilberto Ocampo ALT [Catalytic activity/Vol] 23 U/L Normal 14-59 [facility] Comment on above: Performed By: #### A CET, CMP #### [facility] [address] [place] [address] Dr. Gilberto Ocampo Anion gap [Moles/Vol] 9.3 mmol/L Normal [facility] Comment on above: Performed By: #### A CET, CMP #### [facility] [address] [place] [address] Dr. Gilberto Ocampo AST [Catalytic activity/Vol] 24 U/L Normal 15-37 [facility] Comment on above: Performed By: #### A CET, CMP #### [facility] [address] [place] [address] Dr. Gilberto Ocampo Bilirubin [Mass/Vol] 1.0 mg/dL Normal 0.2-1.0 [facility] Comment on above: Performed By: #### A CET, CMP #### [facility] [address] [address] [address] Gilberto Ocampo Calcium [Mass/Vol] 8.7 mg/dL Normal 8.5-10.1 [facility] Comment on above: Performed By: #### A CET, CMP #### [facility] [address] [address] [address] Gilberto Ocampo Chloride [Moles/Vol] 102 mmol/L Normal 98-107 [facility] Comment on above: Performed By: #### A CET, CMP #### [facility] [address] [place] [address] Dr. Gilberto Ocampo CO2 [Moles/Vol] 32.4 mmol/L Critically high 21.0-32.0 [facility] Comment on above: Performed By: #### A CET, CMP #### [facility] [address] [place] [address] Dr. Gilberto Ocampo Creatinine [Mass/Vol] 1.58 mg/dL Critically high 0.55-1.02 [facility] Comment on above: Performed By: #### A CET, CMP #### [facility] [address] [place] [address] Dr. Gilberto Ocampo EGFR-AF BAHAMIAN 39 mL/min/1.73m2 Critically low >=60 [facility] Comment on above: Performed By: #### A CET, CMP #### [facility] [address] [place] [address] Dr. Gilberto Ocampo EGFR-NON AF BAHAMIAN 32 mL/min/1.73m2 Critically low >=60 [facility] Comment on above: Performed By: #### A CET, CMP #### [facility] [address] [place] [address] Dr. Gilberto Ocampo Globulin (S) [Mass/Vol] 3.7 g/dL Normal [facility] Comment on above: Performed By: #### A CET, CMP #### [facility] [address] [place] [address] Dr. Gilberto Ocampo Glucose [Mass/Vol] 272 mg/dL Critically high 74-106 [facility] Comment on above: Performed By: #### A CET, CMP #### [facility] [address] [place] [address] Dr. Gilberto Ocampo Potassium [Moles/Vol] 3.7 mmol/L Normal 3.5-5.1 [facility] Comment on above: Performed By: #### A CET, CMP #### [facility] [address] [place] [address] Dr. Gilberto Ocampo Protein [Mass/Vol] 7.2 g/dL Normal 6.4-8.2 [facility] Comment on above: Performed By: #### A CET, CMP #### [facility] [address] [place] [address] Dr. Gilberto Ocampo Sodium [Moles/Vol] 140 mmol/L Normal 136-145 [facility] Comment on above: Performed By: #### A CET, CMP #### [facility] [address] [place] [address] Dr. Gilberto Ocampo Urea nitrogen [Mass/Vol] 20.0 mg/dL Critically high 7.0-18.0 [facility] Comment on above: Performed By: #### A CET, CMP #### [facility] [address] [place] [address] Dr. Gilberto Ocampo Urea nitrogen/Creatinin e [Mass ratio] 12.7 mg/mg Normal [facility] Comment on above: Performed By: #### A CET, CMP #### [facility] [address] [place] [address] Dr. Gilberto Ocampo UA (CLEAN/CATCH) FORGE TENDER/MICRO I F IND.on 11-09-2022 Bilirubin Ql (U) Negative Normal NEGATIVE [facility] Comment on above: Performed By: #### U ACSWALI UMICRO #### [facility] [address] [place] [address] Dr. Gilberto Ocampo Clarity (U) CLEAR Normal CLEAR [facility] Comment on above: Performed By: #### U ACSIND, UMICRO #### [facility] [address] [place] [address] Dr. Gilberto Ocampo Color (U) LT. YELLOW Normal YELLOW [facility] Comment on above: Performed By: #### U ACSIND, UMICRO #### [facility] [address] [address] [address] Gilberto Ocampo Glucose Ql (U) Negative Normal NEGATIVE The [place] Comment on above: Performed By: #### U ACSIND, UMICRO #### [facility] [address] [address] [address] Gilberto Ocampo Hemoglobin Ql (U) LARGE Abnormal NEGATIVE [facility] Comment on above: Performed By: #### U ACSIND, UMICRO #### [facility] [address] [address] [address] Gilberto Ocampo Ketones Ql (U) TRACE Abnormal NEGATIVE The [place] Comment on above: Performed By: #### U ACSIND, UMICRO #### [facility] [address] [place] [address] Dr. Gilberto Ocampo LEUKOCYTES MODERATE Abnormal NEGATIVE [facility] Comment on above: Performed By: #### U ACSWALI, UMICRO #### [facility] [address] [address] [address] Gilberto Ocampo Nitrite Ql (U) Positive Abnormal NEGATIVE The [place] Comment on above: Performed By: #### U ACSWALI, UMICRO #### [facility] [address] [address] [address] Gilberto Ocampo pH (U) 5.5 [pH] Normal 5-9 [facility] Comment on above: Performed By: #### U ACSWALI, UMICRO #### [facility] [address] [address] [address] Gilberto Ocampo SPEC GRAVITY 1.025 Normal 1.005-<=1.025 [facility] Comment on above: Performed By: #### U ACSIND, UMICRO #### [facility] [address] [address] [address] Gilberto Ocampo UA PROTEIN 30 mg/dl Abnormal NEGATIVE/ TRACE [facility] Comment on above: Performed By: #### U ACSWALI, UMICRO #### [facility] [address] [place] [address] Dr. Gilberto Ocampo UR MICRO IND INDICATED Normal [facility] Comment on above: Performed By: #### U ACSWALI, UMICRO #### [facility] [address] [place] [address] Dr. Gilberto Ocampo Urobilinogen Qn (U) 0.2 {Torres'U}/dL Normal 0.2 - 1.0 [facility] Comment on above: Performed By: #### U ACSWALI, UMICRO #### [facility] [address] [place] [address] Dr. Gilberto Ocampo URINE MICROSCOPIC ONLYon BACTERIA SMALL Abnormal NONE SEEN [facility] Comment on above: Performed By: #### U ACSWALI, UMICRO #### [facility] [address] [place] [address] Dr. Gilberto Ocampo BACTERIA MODERATE Abnormal NONE SEEN [facility] Comment on above: Performed By: #### U ACSWALI, UMICRO #### [facility] [address] [place] [address] Dr. Gilberto Ocampo Bacteria identified Cx Nom (U) INDICATED Normal [facility] Comment on above: Performed By: #### U ACSWALI, UMICRO #### [facility] [address] [place] [address] Dr. Gilberto Ocampo CAST NONE SEEN Normal NONE SEEN [facility] Comment on above: Performed By: #### U ACSWALI, UMICRO #### [facility] [address] [place] [address] Dr. Gilberto Ocampo Crystals LM Nom (Urine sed) NONE SEEN Normal NONE SEEN [facility] Comment on above: Performed By: #### U ACSIND, UMICRO #### [facility] [address] [place] [address] Dr. Gilberto Ocampo Epithelial cells LM Ql (Urine sed) MODERATE Abnormal NONE SEEN /RARE [facility] Comment on above: Performed By: #### U ACSIND, UMICRO #### [facility] [address] [place] [address] Dr. Gilberto Ocampo MUCOUS TRACE Abnormal NONE SEEN [facility] Comment on above: Performed By: #### U ACSIND, UMICRO #### [facility] [address] [address] [address] Gilberto Ocampo MUCOUS SMALL Abnormal NONE SEEN [facility] Comment on above: Performed By: #### U ACSIND, UMICRO #### [facility] [address] [address] [address] Gilberto Ocampo RBC 2-5 Abnormal 0-2 [facility] Comment on above: Performed By: #### U ACSIND, UMICRO #### [facility] [address] [address] [address] Gilberto Ocampo RBC 5-10 Abnormal 0-2 [facility] Comment on above: Performed By: #### U ACSIND, UMICRO #### [facility] [address] [address] [address] Gilberto Ocampo WBC 20-50 Abnormal NONE SEEN [facility] Comment on above: Performed By: #### U ACSIND, UMICRO #### [facility] [address] [address] [address] Gilberto Ocampo WBC 10-20 Abnormal NONE SEEN [facility] Comment on above: Performed By: #### U ACSWALI, UMICRO #### [facility] [address] [address] [address] Gilberto Ocampo MG MAMM SCREEN 3D DION CADon 10-11-2022 MG MAMM SCREEN 3D DION CAD Patient: MALCOM KNOWLES Exam Date: 10/11/2022 : 1955 Gender:F Ordering : DR DUSTY WALTERS . Admission #: [id number] Family : Order #: [id number] CLICK HERE TO VIEW EXAM RADIOLOGY REPORT PROCEDURE: MAMMOGRAM SCREENING 3D BILATERAL CAD COMPARISON: MG MAMM SCREEN 3D DION CAD, 10/09/2021. INDICATIONS: Screening mammography Calculator Name NCI Breast Cancer Risk Assessment Tool 5 Year Breast Cancer Risk 1.50% Lifetime Breast Cancer Risk 4.80% Personal Breast Cancer No Personal Ovarian Cancer No Treatments Hysterectomy Family Cancers Father with prostate cancer at age 66. LOCATION: [facility] BREAST COMPOSITION: Scattered areas fibroglandular density. FINDINGS: DIAGNOSTIC CATEGORY 1--NEGATIVE. NO CHANGE FROM COMPARISON ASSESSMENT. Limited secondary to difficulty positioning the patient from body habitus Scattered benign-appearing nodules are present. Scattered benign-appearing calcifications are present. RIGHT BREAST: No significant suspicious finding. LEFT BREAST: No significant suspicious finding. RECOMMENDATIONS: ROUTINE MAMMOGRAM AND CLINICAL EVALUATION IN 12 MONTHS. PLEASE NOTE: A NORMAL MAMMOGRAM DOES NOT EXCLUDE THE POSSIBILITY OF BREAST CANCER. A CLINICALLY SUSPICIOUS PALPABLE LUMP SHOULD BE BIOPSIED. Dictated by: Niall Talbert MD on 10/11/2022 at 14:46 Approved by: Niall Talbert MD on 10/11/2022 at 14:47 Normal [facility] PTH INTACTon 09-18-2022 PTH, Intact 46 pg/mL Normal 15-65 [facility] Comment on above: Performed By: #### U ACSIND UMNIYARO #### [facility] [address] [place] [address] Dr. Gilberto Ocampo HEMOGRAM AND PLATELon 2021 Hematocrit (Bld) [Volume fraction] 37.2 % Normal 36.0-48.0 [facility] Comment on above: Performed By: #### H H #### [facility] [address] [address] [address] Gilberto Ocampo Hemoglobin (Bld) [Mass/Vol] 12.2 g/dL Normal 12.0-16.0 [facility] Comment on above: Performed By: #### H H #### [facility] [address] [place] [address] Dr. Gilberto Ocampo MCH (RBC) [Entitic mass] 30.3 pg Normal 26.7-34.0 [facility] Comment on above: Performed By: #### H H #### [facility] [address] [address] [address] Gilberto Ocampo MCHC (RBC) [Mass/Vol] 32.8 g/dL Normal 29.9-35.2 [facility] Comment on above: Performed By: #### H H #### [facility] [address] [place] [address] Dr. Gilberto Ocampo MCV (RBC) [Entitic vol] 92.5 fL Normal 81.0-99.0 [facility] Comment on above: Performed By: #### H H #### [facility] [address] [place] [address] Dr. Gilberto Ocampo PLT 194 103/ul Normal 150-450 [facility] Comment on above: Performed By: #### H H #### [facility] [address] [place] [address] Dr. Gilberto Ocampo RBC 4.02 106/ul Critically low 4.20-5.40 [facility] Comment on above: Performed By: #### H H #### [facility] [address] [place] [address] Dr. Gilberto Ocampo WBC 5.4 103/ul Normal 4.0-11.0 [facility] Comment on above: Performed By: #### H H #### [facility] [address] [place] [address] Dr. Gilberto Ocampo MAGNESIUMon 09-15-2022 Magnesium [Mass/Vol] 1.9 mg/dL Normal 1.8-2.4 [facility] Comment on above: Performed By: #### A CET, CMP #### [facility] [address] [place] [address] Dr. Gilberto Ocampo PROF 14(COMP METB)on 022 Albumin [Mass/Vol] 3.3 g/dL Critically low 3.4-5.0 [facility] Comment on above: Performed By: #### A CET, CMP #### [facility] [address] [place] [address] Dr. Gilberto Ocampo Albumin/Globulin [Mass ratio] 0.9 {ratio} Normal [facility] Comment on above: Performed By: #### A CET, CMP #### [facility] [address] [place] [address] Dr. Gilberto Ocampo ALP [Catalytic activity/Vol] 85 U/L Normal 46-116 [facility] Comment on above: Performed By: #### A CET, CMP #### [facility] [address] [place] [address] Dr. Gilberto Ocampo ALT [Catalytic activity/Vol] 32 U/L Normal 14-59 [facility] Comment on above: Performed By: #### A CET, CMP #### [facility] [address] [address] [address] Gilberto Ocampo Anion gap [Moles/Vol] 12.3 mmol/L Normal [facility] Comment on above: Performed By: #### A CET, CMP #### [facility] [address] [address] [address] Gilberto Ocampo AST [Catalytic activity/Vol] 20 U/L Normal 15-37 [facility] Comment on above: Performed By: #### A CET, CMP #### [facility] [address] [address] [address] Gilberto Ocampo Bilirubin [Mass/Vol] 1.1 mg/dL Critically high 0.2-1.0 [facility] Comment on above: Performed By: #### A CET, CMP #### [facility] [address] [place] [address] Dr. Gilberto Ocampo Calcium [Mass/Vol] 8.5 mg/dL Normal 8.5-10.1 [facility] Comment on above: Performed By: #### A CET, CMP #### [facility] [address] [place] [address] Dr. Gilberto Ocampo Chloride [Moles/Vol] 103 mmol/L Normal 98-107 [facility] Comment on above: Performed By: #### A CET, CMP #### [facility] [address] [address] [address] Gilberto Ocampo CO2 [Moles/Vol] 29.5 mmol/L Normal 21.0-32.0 [facility] Comment on above: Performed By: #### A CET, CMP #### [facility] [address] [place] [address] Dr. Gilberto Ocampo Creatinine [Mass/Vol] 1.52 mg/dL Critically high 0.55-1.02 [facility] Comment on above: Performed By: #### A CET, CMP #### [facility] [address] [place] [address] Dr. Gilberto Ocampo EGFR-AF BAHAMIAN 41 mL/min/1.73m2 Critically low >=60 [facility] Comment on above: Performed By: #### A CET, CMP #### [facility] [address] [place] [address] Dr. Gilberto Ocampo EGFR-NON AF BAHAMIAN 34 mL/min/1.73m2 Critically low >=60 [facility] Comment on above: Performed By: #### A CET, CMP #### [facility] [address] [address] [address] Gilberto Ocampo Globulin (S) [Mass/Vol] 3.6 g/dL Normal [facility] Comment on above: Performed By: #### A CET, CMP #### [facility] [address] [place] [address] Dr. Gilberto Ocampo Glucose [Mass/Vol] 323 mg/dL Critically high 74-106 [facility] Comment on above: Performed By: #### A CET, CMP #### [facility] [address] [place] [address] Dr. Gilberto Ocampo Potassium [Moles/Vol] 3.8 mmol/L Normal 3.5-5.1 [facility] Comment on above: Performed By: #### A CET, CMP #### [facility] [address] [place] [address] Dr. Gilberto Ocampo Protein [Mass/Vol] 6.9 g/dL Normal 6.4-8.2 [facility] Comment on above: Performed By: #### A CET, CMP #### [facility] [address] [place] [address] Dr. Gilberto Ocampo Sodium [Moles/Vol] 141 mmol/L Normal 136-145 [facility] Comment on above: Performed By: #### A CET, CMP #### [facility] [address] [place] [address] Dr. Gilberto Ocampo Urea nitrogen [Mass/Vol] 16.0 mg/dL Normal 7.0-18.0 [facility] Comment on above: Performed By: #### A CET, CMP #### [facility] [address] [place] [address] Dr. Gilberto Ocampo Urea nitrogen/Creatinin e [Mass ratio] 10.5 mg/mg Normal [facility] Comment on above: Performed By: #### A CET, CMP #### [facility] [address] [place] [address] Dr. Gilberto Ocampo URIC ACID SERUMon 09-15-2022 Urate [Mass/Vol] 3.3 mg/dL Normal 2.6-6.0 [facility] Comment on above: Performed By: #### A CET, CMP #### [facility] [address] [place] [address] Dr. Gilberto Ocampo VITAMIN D 25 OHon 09-15-2022 VIT D 25-OH 57.1 ng/mL Normal [facility] Comment on above: Performed By: #### U ACSIND, UMICRO #### [facility] [address] [place] [address] Dr. Gliberto Ocampo VIT D RANGES SEE BELOW Normal [facility] Comment on above: Result Comment: <20 ng/mL Vit D deficient 20 - <30 ng/mL Vit D insufficient 30 - 100 ng/mL Vit D sufficient >100 ng/mL Potential Toxicity Performed By: #### U ACSIND, UMICRO #### [facility] [address] [place] [address] Dr. Gilberto Ocampo US KIDNEYSon 08-30-2022 US KIDNEYS EXAMINATION: US KIDNEYS HISTORY: CKD stage 3B ; diabetes, hypertension COMPARISON: Ultrasound kidneys 03/25/2017 TECHNIQUE: Ultrasound examination was performed of the kidneys and urinary bladder. FINDINGS: RIGHT KIDNEY: No evidence of pelvocaliectasis, mass, or calculi. Normal renal cortical parenchymal echogenicity. Color Doppler demonstrates blood flow within the kidney. Kidney: 10.4 x 4.7 x 5.3 cm. No significant cortical thinning. LEFT KIDNEY: Inferior pole 1.9 cm cyst; also present on prior study. No evidence of pelvocaliectasis, mass, or calculi. Normal renal cortical parenchymal echogenicity. Color Doppler demonstrates blood flow within the kidney. Kidney: 10.6 x 5.1 x 4.8 cm; no significant cortical thinning. BLADDER: No visible wall thickening, mass, or calculi. IMPRESSION: 1. No abnormal or suspicious findings to account for patient's symptoms. Electronically authenticated by: ADAMS RASGDALE Date: 2022-08-30 11:46 Normal [facility] XR CHEST 2 Von 08-27-2022 XR CHEST 2 V EXAMINATION: XR CHEST 2 V HISTORY: Chest pain after falling COMPARISON: No relevant comparison available. FINDINGS: LUNGS: No significant pulmonary parenchymal abnormalities. VASCULATURE: No increased pulmonary vasculature. PLEURA: No pneumothorax, effusion, or pleural thickening. CARDIAC: No cardiomegaly or cardiac silhouette abnormality. MEDIASTINUM: No visible mass or adenopathy. BONES: No fracture or visible bone lesion. OTHER: Negative. IMPRESSION: 1. No acute cardiopulmonary process. 2. No appreciable acute bone abnormality. Electronically authenticated by: ADAMS RAGSDALE Date: 2022-08-27 21:54 Normal [facility] XR NECK SOFT TISSUEon 2021 XR NECK SOFT TISSUE EXAMINATION: XR NECK SOFT TISSUE HISTORY: Neck pain after falling and hitting anterior neck/throat COMPARISON: No relevant comparison available. FINDINGS: EPIGLOTTIS: Normal ARYEPIGLOTTIC FOLDS: Normal SUBGLOTTIC AIRWAY: Normal ADENOID TONSILS: Normal PALATINE TONSILS: Normal CERVICAL SPINE: Straightening of the normal cervical lordotic curvature and multilevel degenerative disc disease. IMPRESSION: 1. Widely patent airway without appreciable abnormality of the neck soft tissues. 2. Marked degenerative changes of the cervical spine. Electronically authenticated by: ADAMS RAGSDALE Date: 2022-08-27 21:58 Normal [facility] Tobacco Screening.on 022 Adult depression screening assessment No [facility] [employer] 250 DO Work Phone: Fall risk assessment b) One or more falls in the last year [facility] [employer] [facility] 250 DO Work Phone: Tobacco use status CPHS b) No [facility] [employer] [facility] 250 DO Work Phone: CNPNon 01-18-2021 [facility] ([facility]) -------- BENSONMALCOM ([id number]) 1955 F Date Time Provider Department 01/18/21 REGINA MANZO During your visit today, we recorded the following information about you: Anabela Bettencourt Pss 01/18/2021 10:00 AM Signed Called patient and told her left and needs to make a follow up at . Patient said she will call back in April. She has to figure out transportation. 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 INSULIN DETEMIR (U-100) 100 U* Inject 18 Units subcutaneousl* LINAGLIPTIN 5 MG TABLET Take 5 mg by mouth. METOPROLOL TARTRATE 25 MG TAB* Take 25 mg by mouth twice shona* OXYCODONE-ACETAMIN OPHEN 5 MG-* q 24 HR. GABAPENTIN 600 MG TABLET Take 600 mg by mouth three ti* BASAGLAR KWIKPEN U-100 INSULI* INJECT 20 UNITS AT BEDTIME ALPHA LIPOIC ACID 600 MG CAPS* Take 1 capsule by mouth twice* LISINOPRIL 5 MG TABLET Take 5 mg by mouth once daily. METFORMIN 500 MG TABLET Take 500 mg by mouth twice da* INDOMETHACIN ER 75 MG CAPSULE* Take 75 mg by mouth daily wit* CELECOXIB 400 MG CAPSULE Take 400 mg by mouth once shona* PROPRANOLOL ER 80 MG CAPSULE,* Take 80 mg by mouth once martina* FLUCONAZOLE 150 MG TABLET Take 150 mg by mouth as neede* CHOLECALCIFEROL (VITAMIN D3) * 1,000 Units once daily. PRIMIDONE 50 MG TABLET Take 25 mg by mouth daily at * VITAMIN E (DL, ACETATE) 450 M* Take 1,000 Units by mouth onc* BIOTIN 10,000 MCG CAPSULE Take 20,000 mcg by mouth once* ACETAMINOPHEN 500 MG TABLET Take 500 mg by mouth every 8 * FAMOTIDINE 20 MG TABLET Take 20 mg by mouth twice shona* BUPROPION XL 300 MG 24 HR TAB Take 300 mg by mouth once shona* ASPIRIN 325 MG TABLET Take 325 mg by mouth once shona* CETIRIZINE 10 MG CAPSULE Take by mouth. MULTIVIT,CA,MIN-IR ON GLUCONAT* Take by mouth. CYANOCOBALAMIN (VIT B-12) 1,0* Take 1,000 mcg by mouth once * TUMS 500 ORAL Take by mouth. ONE-A-DAY WOMEN'S 50+ ORAL Take by mouth. CARBOXYMETHYLCELLU LOSE SODIUM* 1 Drop as needed. Problem List As Of Date 01/18/2021 Noted Resolved Obesity, morbid, BMI 50 or higher (HCC) [E66.01] DM (diabetes mellitus screen) [Z13.1] More... Hypertension [I10] Endometrial cancer (HCC) [C54.1] 03/14/2016 Encounter Status:Closed by ANABELA BUSTAMANTE on 01/18/21 Normal [facility] Vital Signs Date Time Vital Sign Value Performing Clinician Facility 07-02-2023 14:20-0400 Body height 162.56 cm [employer] Other [facility] Other 07-02-2023 14:20-0400 Body temperature 96.7 [degF] [employer] Other [facility] Other 07-02-2023 14:20-0400 Diastolic blood pressure 79 mm[Hg] [employer] Other [facility] Other 07-02-2023 14:20-0400 Respiratory rate 18 /min Chip Zaidi Other [facility] [employer] Other 07-02-2023 14:20-0400 SaO2% (BldA) [Mass fraction] 98 % Chip Zaidi Other [facility] [employer] Other 07-02-2023 14:20-0400 Systolic blood pressure 155 mm[Hg] Chip Zaidi Other [facility] [employer] Other 04-04-2023 11:33-0400 Body height 160.02 cm Dusty Walters Work Phone: [facility] [employer] 600 DO Work Phone: 04-04-2023 11:33-0400 Body mass index (BMI) [Ratio] 52.97 kg/m2 Dusty Walters Work Phone: [facility] [employer] 600 DO Work Phone: 04-04-2023 11:33-0400 Body surface area Derived from formula 2.29 m2 Dusty Walters Work Phone: [facility] [employer] 600 DO Work Phone: 04-04-2023 11:33-0400 Body weight 135.63 kg Dusty Walters Work Phone: [facility] [employer] 600 DO Work Phone: 04-04-2023 11:33-0400 Diastolic blood pressure 70 mm[Hg] Dusty Walters Work Phone: [facility] [employer] 600 DO Work Phone: 04-04-2023 11:33-0400 Heart rate 72 /min Dusty Walters Work Phone: [facility] [employer] 600 DO Work Phone: 04-04-2023 11:33-0400 Systolic blood pressure 110 mm[Hg] Dusty Walters Work Phone: [facility] 600 DO Work Phone: 11-20-2022 10:30-0500 Body height 162.56 cm Lizandro Emilianomelina Other [facility] [employer] Other 10-30-2022 16:20-0500 Body height 162.56 cm Aziz Bakhous Other [facility] [employer] Other 10-30-2022 16:20-0500 Diastolic blood pressure 84 mm[Hg] Aziz Bakhous Other [facility] [employer] Other 10-30-2022 16:20-0500 SaO2% (BldA) [Mass fraction] 98 % Aziz Bakhous Other [facility] [employer] Other 10-30-2022 16:20-0500 Systolic blood pressure 128 mm[Hg] Aziz Bakhous Other [facility] Other 05-15-2022 14:20-0400 Body height 162.56 cm Aziz Bakhous Other [place] [employer] Other 05-15-2022 14:20-0400 Body temperature 97 [degF] Aziz Bakhous Other [place] [employer] Other 05-15-2022 14:20-0400 Diastolic blood pressure 70 mm[Hg] Aziz Bakhous Other [place] [employer] Other 05-15-2022 14:20-0400 Respiratory rate 18 /min Aziz Bakhous Other [facility] Other 05-15-2022 14:20-0400 SaO2% (BldA) [Mass fraction] 97 % Chip Zaidi Other [facility] [employer] Other 05-15-2022 14:20-0400 Systolic blood pressure 120 mm[Hg] Chip Zaidi Other [facility] [employer] Other 03-12-2022 13:25-0400 Body height 160.02 cm Dusty Quintanillaight Work Phone: [facility] 250 DO Work Phone: 03-12-2022 13:25-0400 Body mass index (BMI) [Ratio] 51.02 kg/m2 Dusty Quintanillaight Work Phone: [facility] 250 DO Work Phone: 03-12-2022 13:25-0400 Body surface area Derived from formula 2.26 m2 Dusty Quintanillaight Work Phone: [facility] 250 DO Work Phone: 03-12-2022 13:25-0400 Body weight 130.64 kg Dusty Walters Work Phone: [facility] 250 DO Work Phone: 03-12-2022 13:25-0400 Diastolic blood pressure 78 mm[Hg] Dusty Walters Work Phone: [facility] 250 DO Work Phone: 03-12-2022 13:25-0400 Heart rate 70 /min Dusty Walters Work Phone: [facility] 250 DO Work Phone: 03-12-2022 13:25-0400 Systolic blood pressure 102 mm[Hg] Dusty Walters Work Phone: [facility] 250 DO Work Phone: Encounters Encounter Date Encounter Type Care Provider Facility Start: 11-21-2023 ambulatory VEDA Salgado acility:[facility] Start: 11-20-2023 ambulatory Felix Easley Facility :[facility] [place] Start: 10-23-2023 ambulatory Magui Cee Elamary jo Facility:[facility] Start: 10-01-2023 End: 10-02-2023 ambulatory Felix Easley Facility:[facility] Start: 10-01-2023 End: 10-01-2023 Patient encounter procedure Felix Easley [facility] Start: 09-09-2023 End: 09-10-2023 ambulatory Felix Easley Facility: [facility] Start: 07-31-2023 End: 07-31-2023 ambulatory Anjana Pal Other [facility] Other Start: 07-31-2023 Telephone encounter Anjana Pal [facility] Start: 07-28-2023 End: 07-28-2023 ambulatory MD Dusty Walters Work Phone: [facility] Work Phone: Start: 07-28-2023 End: 07-28-2023 Departed Referred MD Dusty Walters Work Phone: [facility] [place] Work Phone: Start: 07-15-2023 End: 07-16-2023 ambulatory Mariangel Campbell Facility:[facility] [place] [facility] Start: 07-05-2023 Telephone encounter Tanikadanyel Lopez [facility] Start: 07-05-2023 End: 07-05-2023 ambulatory Taniak John Other [facility] Other Start: 07-02-2023 End: 07-02-2023 ambulatory Chip Zaidi Other [facility] Other Start: 07-02-2023 Office outpatient visit 25 minutes Azamos Nelsonlillianas [facility] Start: 07-01-2023 Office outpatient visit 25 minutes Brigida George [facility] Start: 07-01-2023 End: 07-01-2023 ambulatory MD Dusty Walters Work Phone: [facility] Work Phone: Start: 07-01-2023 End: 07-01-2023 Patient encounter procedure MD Dusty Walters Work Phone: [facility] [place] [facility] Start: 06-28-2023 End: 06-28-2023 ambulatory Azamos Hernandezs Other [facility] Other Start: 06-28-2023 Telephone encounter Chip Nelsonlillianas [facility] Start: 05-16-2023 End: 05-17-2023 ambulatory Mariangel L Adrian Facility:[facility] Start: 05-16-2023 End: 05-16-2023 Lab Drop off Mariangel L Adrian [facility] Start: 05-01-2023 ambulatory AJ YOUNG Facility:[facility] Start: 04-04-2023 Office outpatient visit 25 minutes Dusty Walters Work Phone: [facility] 600 DO Work Phone: Start: 04-04-[address] Dusty Salgado acility: Start: 02-06-2023 ambulatory Felix Easley Facility:[facility] Start: 01-24-2023 End: 01-24-2023 ambulatory CONNER GERMAN . Facility:[facility] Start: 01-18-2023 End: 01-19-2023 ambulatory AJ YOUNG Facility:[facility] Start: 12-26-2022 End: 12-26-[address] DUSTY WALTERS . Facility:[facility] Start: 12-18-2022 End: 12-18-2022 ambulatory Lizandro Martins Other [facility] Other Start: 12-18-2022 Office outpatient visit 15 minutes Lizandro Martins [facility] Start: 12-17-2022 End: 12-17-[address] DUSTY WALTERS . Facility:[facility] Start: 11-20-2022 End: 11-20-2022 ambulatory Lizandro Martins Other [facility] Other Start: 11-20-2022 FQ visit new patient Lizandro Martins [facility] Start: 11-17-2022 End: 11-17-[address] DUSTY WALTERS . Facility:[facility] Start: 11-09-2022 End: 11-10-[address] DUSTY WALTERS . Facility:[facility] Start: 11-09-2022 End: 11-10-[address] DUSTY WALTERS . Facility:[facility] Start: 10-30-2022 End: 10-30-2022 ambulatory Chip Zaidi Other [place] [employer] Other Start: 10-30-2022 Office outpatient visit 15 minutes Chip Zaidi [facility] Start: 10-11-2022 End: 10-12-[address] DUSTY WALTERS . Facility:[facility] Start: 09-15-2022 End: [address] UDSTY WALTERS . Facility:[facility] Start: 08-30-2022 End: 08-31-[address] DOCTOR GALEANA Facility:[facility] Start: 08-27-2022 End: 08-28-[address] DUSTY WALTERS . Facility:[facility] Start: 07-04-2022 End: 07-04-[address] DUSTY WALTERS . Facility:[facility] Start: 05-15-2022 End: 05-15-2022 ambulatory Chip Zaidi Other [facility] Other Start: 05-15-2022 Office outpatient ne w 30 minutes Chip Zaidi [facility] Start: 03-12-2022 Office outpatient visit 25 minutes [facility] Work [facility]: Procedures Date Procedure Procedure Detail Performing Clinician Start: 07-01-2023 Plain X-ray of left shoulder MD Dusty Walters Work Phone: Arthroplasty of knee Dusty chase Work Phone: Cardiac catheterization Dusty Walters Work Phone: Cardiac catheterization Jose R anton Easley Comment on above: 2017 2 stents, 2018 3 stents Cataract (disorder) Felix Yamel collazo Comment on above: 08/2021 History of arthropla sty of left knee Felix Easley Comment on above: 2018 History of operative procedure on knee Aziz Bakhous Other History of operative procedure on knee Aziz Bakhous Other History of operative procedure on knee History of arthroplasty of right knee MD Dusty Walters Work Phone: History of placement of stent for coronary artery disease History of coronary artery stent placement MD Dusty Walters Work Phone: History of right tot al knee replacement Felix Easley Comment on above: 2017 Tonsillectomy and adenoidectomy Dusty Walters Work Phone: Total abdominal hysterectomy with bilateral salpingo-oophorectomy Felix Easley Total colonoscopy Dusty Du Work Phone: Plan of Treatment Date Care Activity Detail Author Start: 01-07-2024 FUV, Provider: Gadiel Merino, Status: Pen, Time: 11:00 AM FUV, Provider: Gadiel Merino, Status: Pen, Time: 11:00 AM [facility] Work [facility]: Start: 07-28-2023 Bacteria identified in Urine by Culture Urine Culture [facility] Start: 12-11-2022 FUV, Provider: Gadiel Merino, Status: Pen, Time: 10:30 AM FUV, Provider: Gadiel Merino, Status: Pen, Time: 10:30 AM [facility] 250 DO Work Phone: Immunizations Immunization Date Immunization Notes Care Provider Sharad mota 09-13-2022 SARS-CoV-2 (COVID-19 ) [id number] Mariangel Campbell [facility] 01-13-2022 Moderna COVID-19 Vac cine 100 MCG/0.5ML Intramuscular Suspension Dusty Walters Work Phone: [facility] Comment on above: Result Comment: 2022: [id number] 08-09-2021 Moderna COVID-19 Vac cine 100 MCG/0.5ML Intramuscular Suspension Dusty Walters Work Phone: [facility] 07-12-2021 Moderna COVID-19 Vac cine 100 MCG/0.5ML Intramuscular Suspension Dusty Walters Work Phone: [facility] 12-02-2016 pneumococcal polysaccharide vaccine, 23 valent Dusty Walters Work Phone: [facility] 250 DO Work Phone: 10-18-2016 pneumococcal conjuga te vaccine, 13 valent Dusty Walters Work Phone: [facility] Payers Date Payer Category Payer Self-pay [id number] 2009 Unknown [id number] 1961 Medicare [id number] 2.1 [id number] 1959 Unknown [id number] 2.1 [id number] 1953 Unknown [id number] 2.16. 840.1.407459.3.579.2.356 1955 Unknown [id number] 2.16.84 0.1.571740.3.579.2.593 1955 Unknown [id number] 2.16.84 0.1.356712.3.579.2.593 1953 Unknown [id number] 2.16.84 0.1.494227.3.579.2.593 1953 Unknown [id number] 2.16.84 0.1.422652.3.579.2.593 1953 Unknown [id number] 2.16.84 0.1.677415.3.579.2.593 1953 Unknown [id number] 2.16.84 0.1.251853.3.579.2.593 1953 Unknown [id number] 2.16.84 0.1.175265.3.579.2.593 1953 Unknown [id number] 2.16.84 0.1.064796.3.579.2.593 1953 Unknown [id number] 2.16.84 0.1.787237.3.579.2.593 1953 Unknown [id number] 2.16.84 0.1.121300.3.579.2.593 1953 Unknown [id number] 2.16.84 0.1.783146.3.579.2.593 1953 Unknown [id number] 2.16.84 0.1.075677.3.579.2.593 1953 Unknown [id number] 2.16.84 0.1.767526.3.579.2.593 1953 Unknown [id number] 2.16.8 40.1.140866.3.579.2.727 1953 Unknown [id number] 2.16.8 40.1.590913.3.579.2.727 1953 Unknown [id number] 2.16.8 40.1.228589.3.579.2.727 1953 Unknown [id number] 2.16.8 40.1.533242.3.579.2.727 1953 Unknown [id number] 2.16.8 40.1.468470.3.579.2.727 1953 Unknown [id number] 2.16.8 40.1.566043.3.579.2.727 1953 Unknown [id number] 2.16.8 40.1.088809.3.579.2.727 1953 Unknown [id number] 2.16.8 40.1.784783.3.579.2.727 1955 Unknown [id number] 2.16.8 40.1.964211.3.579.2.727 Medicaid [place] [employer] [id number] Unknown Unknown [id number] 2.16.8 40.1.942440.3.579.2.531 Unknown [id number] 2.16.8 40.1.122850.3.579.2.531 Social History Date Type Detail Facility No alcohol use No alcohol use [facility] 250 DO Work Phone: Comment on above: 2 CUPS OF ICED TEA D AILY; Sex Assigned At [facility] Start: 05-16-2023 End: 09-09-2023 Tobacco smoking status Never smoked tobacco (finding) [facility] Tobacco smoking status Never [facility] Start: 1955 Sex Assigned At Female F [facility] Medical Equipment Procedure Code Equipment Code Equipment Origin al Text Equipment Identifier Dates Arthroplasty, knee, total, minimally invasive ARTICULAR SURFACE RIGHT FDA Start: 03-04-2018 Arthroplasty, knee, total, minimally invasive CEMENT PALACOS R+G GENTAMICIN FDA Start: 03-04-2018 Arthroplasty, knee, total, minimally invasive CEMENT PALACOS R+G GENTAMICIN FDA Start: 03-04-2018 Arthroplasty, knee, total, minimally invasive EXTENSION STEM 14 X 30MM FDA Start: 03-04-2018 Arthroplasty, knee, total, minimally invasive FEMUR PERSONA RIGHT SIZE 6 FDA Start: 03-04-2018 Arthroplasty, knee, total, minimally invasive KNEE TOTAL LEVEL 1G PERSONA FDA Start: 03-04-2018 Arthroplasty, knee, total, minimally invasive PATELLA PERSONA 29MM FDA Start: 03-04-2018 Arthroplasty, knee, total, minimally invasive TIBIA PERSONA RIGHT SIZE D FDA Start: 03-04-2018 Arthroplasty, knee, total, minimally invasive ART SURF LEFT 10MM C-D 6-9 FDA Start: 03-30-2019 Arthroplasty, knee, total, minimally invasive CEMENT BONE 1X40 RADIOPAQUE FDA Start: 03-30-2019 Arthroplasty, knee, total, minimally invasive CEMENT BONE 1X40 RADIOPAQUE FDA Start: 03-30-2019 Arthroplasty, knee, total, minimally invasive EXTENSION STEM 14 X 30MM FDA Start: 03-30-2019 Arthroplasty, knee, total, minimally invasive FEMUR PERSONA LEFT SIZE 6 FDA Start: 03-30-2019 Arthroplasty, knee, total, minimally invasive PATELLA PERSONA 29MM FDA Start: 03-30-2019 Arthroplasty, knee, total, minimally invasive TIBIA PERSONA LEFT SIZE D FDA Start: 03-30-2019 Arthroplasty, knee, total, minimally invasive ARTICULAR SURFACE RIGHT FDA Start: 03-04-2018 Arthroplasty, knee, total, minimally invasive CEMENT PALACOS R+G GENTAMICIN FDA Start: 03-04-2018 Arthroplasty, knee, total, minimally invasive CEMENT PALACOS R+G GENTAMICIN FDA Start: 03-04-2018 Arthroplasty, knee, total, minimally invasive EXTENSION STEM 14 X 30MM FDA Start: 03-04-2018 Arthroplasty, knee, total, minimally invasive FEMUR PERSONA RIGHT SIZE 6 FDA Start: 03-04-2018 Arthroplasty, knee, total, minimally invasive KNEE TOTAL LEVEL 1G PERSONA FDA Start: 03-04-2018 Arthroplasty, knee, total, minimally invasive PATELLA PERSONA 29MM FDA Start: 03-04-2018 Arthroplasty, knee, total, minimally invasive TIBIA PERSONA RIGHT SIZE D FDA Start: 03-04-2018 Arthroplasty, knee, total, minimally invasive ART SURF LEFT 10MM C-D 6-9 FDA Start: 03-30-2019 Arthroplasty, knee, total, minimally invasive CEMENT BONE 1X40 RADIOPAQUE FDA Start: 03-30-2019 Arthroplasty, knee, total, minimally invasive CEMENT BONE 1X40 RADIOPAQUE FDA Start: 03-30-2019 Arthroplasty, knee, total, minimally invasive EXTENSION STEM 14 X 30MM FDA Start: 03-30-2019 Arthroplasty, knee, total, minimally invasive FEMUR PERSONA LEFT SIZE 6 FDA Start: 03-30-2019 Arthroplasty, knee, total, minimally invasive PATELLA PERSONA 29MM FDA Start: 03-30-2019 Arthroplasty, knee, total, minimally invasive TIBIA PERSONA LEFT SIZE D FDA Start: 03-30-2019 Misc DME Prescri ption, See Instructions, 300 pen needle(s), 3, BD ultra fine pen needles 31G X 3/16. Use to inject insulin as directed. Dx E10.42, [facility], Supply Start: 02-19-2023 CL STENT AURORA 3.0 X 18 FDA Start: 06-29-2018 CL STENT AURORA 3.5 X 15 FDA Start: 06-29-2018 [id number] FDA Start: 04-18-2020 Drug-eluting cor onary artery stent, [id number] larry-coated ()[id number] FDA Start: 04-18-2020 Drug-eluting cor onary artery stent, [id number] larry-coated ()[id number] FDA Start: 04-18-2020 CL STENT AURORA 3.0 X 18 FDA Start: 06-29-2018 CL STENT AURORA 3.5 X 15 FDA Start: 06-29-2018 [id number] FDA Start: 04-18-2020 [facility] DME Prescri ption, See Instructions, 300 pen needle(s), 3, BD ultra fine pen needles 31G X 3/16. Use to inject insulin as directed. 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 Patient has been diabetic for many years .Patient needs better control of diabetes to attenuate CKD progression. Patient verbalized understanding . she follows with Dr. Walters for DM management Jul, Chronic kidney disease, stage 3b (ICD-10 - N18.32) Likely from diabetic nephropathy and arterionephroscl erosis. Baseline creatinine is at 1.2 mg/dl while off ARB. UA is benign. No proteinuria. normal Pro/Cr Blood pressure is above the target but this might be from the steroid injection she received yesterday. I asked the assist living place to check BP thrice weekly Keep Hgb A1c < 7% to attenuate chronic kidney disease progression I asked the patient to stay away from NSAIDs Follow-up in 6 months Jul, Primary hypertension (ICD-10 - I10) uncontroled. I asked the patient to call my office if remains elevated . volume statusis well controlled. continue lasix dailyused to be on losartan and metoprolo; now off both. I asked the patient to continue BP monitoring at home Jul, Neuropathy (ICD-10 - G62.9) Patient is taking gabapentin 300 mg 3 times daily which seems appropriately dosed Jul, Localized edema (ICD-10 - R60.0) Continue lasix daily. this seems well controlled. advised low Na diet Jul, Hyperlipidemia, unspecified hyperlipidemia type (ICD-10 - E78.5) On statis. follows with her PCP for hyperlipidemia management Jul, Other vitamin B12 deficiency anemia (ICD-10 - D51.8) Continue VB12 . Hgn is stable Jul, Hypokalemia (ICD-10 - E87.6) Will start KCl 20 mEq PO daily Jul, Urinary incontinence, unspecified type (ICD-10 - R32) Patient has 2 UTIs in the last month with hematuria . also she has been having urinary incontinence. On oxybutinin. Will refer her to urology clinic Jul, Morbid obesity (ICD-10 - E66.01) advised weight loss [facility] Other 07-31-2023 Evaluation note* Encounter Date Diagnosis Assessment Notes Treatment Notes Treatment Clinical Notes Jun, Dislocation of right shoulder joint, subsequent encounter (ICD-10 - S43.004D) A 2/1cc marcaine / kenalog cortisone injection was performed into the subacromial space under sterile technique. Patient tolerated the injection well with no adverse reaction. Jun, Impingement of left shoulder (ICD-10 - M25.812) Extensive discussion about current condition and treatment options available. This appears to be pain secondary to subacromial impingement/ rotator cuff tendonitis. We discussed and demonstrated gentle motion exercise and rotator cuff strengthening exercise. A 2/1cc marcaine / kenalog cortisone injection was performed into the subacromial space under sterile technique. Patient tolerated the injection well with no adverse reaction. Examination and assessment of this patient was performed by Brigida George NP and patient will continue with the treatment plan per Dr. Martins, who initiated this treatment plan. Dr. Martins is present in the office today and providing supervision. Jun, Acute pain of right shoulder (ICD-10 - M25.511) Jun, Acute pain of left shoulder (ICD-10 - M25.512) [facility] Other 06-15-2023 Evaluation + Plan note Diagnostic Tests Pending * Urine Culture 05/16/23 [facility]01-17-2023 Evaluation note* Encounter Date Diagnosis Assessment Notes Treatment Notes Treatment Clinical Notes Dec, Dislocation of right shoulder joint, subsequent encounter (ICD-10 - S43.004D) Patient instructed on gentle motion and strength exercise. We will consider an MRI of the shoulder to rule out a rotator cuff tear, if patient has increased pain. We will f/u in 6-8 weeks, or sooner if patient needs [facility] Other 12-20-2022 Evaluation note* Encounter Date Diagnosis Assessment Notes Treatment Notes Treatment Clinical Notes Nov, Dislocation of right shoulder joint, initial encounter (ICD-10 - S43.004A) Patient has suffered an anterior shoulder dislocation. We discussed use of a sling for comfort. May begin active elbow and wrist motion. May begin gentle passive pendulum shoulder motions and progressive active use as pain allows. Progression of passive to active motion was demonstrated. Instructed on avoiding moving the arm in a position that may increase risk of dislocation. Advised patient try to limit the strain she puts on that shoulder with her walker. Discussed that the potential for recurrent dislocation is now increased, although that is less likely in her age range than in a younger person. 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 Patient has been diabetic for many years and has left been well controlled .Patient needs better control of diabetes to attenuate CKD progression. Patient verbalized understanding . she follows with Dr. Walters for DM management Oct, Chronic kidney disease, stage 3b (ICD-10 - N18.32) Likely from diabetic nephropathy and arterionephroscleros is. Baseline creatinine 1.5 mg/dL . GFR 34 mm/min. Kidney function stable at this baseline No proteinuria quantification. Patient on losartan 25 mg p.o. daily Blood pressure seems well controlled Patient needs better control of diabetes to attenuate chronic kidney disease progression I asked the patient to stay away from NSAIDs Follow-up in 6 months Oct, Primary hypertension (ICD-10 - I10) Seems well controlled. I will continue same blood pressure medication Oct, Neuropathy (ICD-10 - G62.9) Patient is taking gabapentin 300 mg 3 times daily which seems appropriately dosed Oct, Localized edema (ICD-10 - R60.0) I started the patient on Lasix 40 mg every other day last clinic visit currently is not taking it due to urinary incontinence. I asked the patient to follow low Na diet. Oct, Hyperlipidemia, unspecified hyperlipidemia type (ICD-10 - E78.5) On statis. follows with her PCP for hyperlipidemia management [facility] Other [id number] NotePROCEDURE: XR SHOULDER LT 2V or > HISTORY: Pain of left shoulder joint COMPARISON: None. FINDINGS: BONES:No fracture, dislocation, bone lesion. Narrowing and mild degenerative changes of the acromioclavicular joint. SOFT TISSUES:No visible soft tissue swelling. EFFUSION:None visible. OTHER: Negative. IMPRESSION: 1. No acute bone abnormality. Electronically authenticated by: ADAMS RAGSDALE Date: 2022-08-27 21:59[facility]09-26-2022 NotePROCEDURE: XR FEMUR RT HISTORY: Pain in right leg after falling COMPARISON: None. FINDINGS: BONES:Mild degenerative changes of hip joint. Right knee replacement. No fracture or dislocation. SOFT TISSUES:No visible soft tissue swelling. EFFUSION:None visible. OTHER: Negative. IMPRESSION: 1. No acute bone abnormality. Electronically authenticated by: ADAMS RAGSDALE Date: 2022-08-27 21:56[facility]09-26-2022 NotePROCEDURE: XR ELBOW RT MIN 3 VIEWS, XR HUMERUS RT MIN 2 V HISTORY: Elbow joint pain after falling COMPARISON: None. FINDINGS: BONES:No fracture, dislocation, bone lesion. Degenerative changes of the acromioclavicular joint. SOFT TISSUES:No visible soft tissue swelling. EFFUSION:None visible. OTHER: Negative. IMPRESSION: 1. No acute bone abnormality the right humerus or elbow joint. Electronically authenticated by: ADAMS RAGSDALE Date: 2022-08-27 21:53[facility]09-26-2022 NotePROCEDURE: XR ELBOW RT MIN 3 VIEWS, XR HUMERUS RT MIN 2 V HISTORY: Elbow joint pain after falling COMPARISON: None. FINDINGS: BONES:No fracture, dislocation, bone lesion. Degenerative changes of the acromioclavicular joint. SOFT TISSUES:No visible soft tissue swelling. EFFUSION:None visible. OTHER: Negative. IMPRESSION: 1. No acute bone abnormality the right humerus or elbow joint. 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 Patient has been diabetic for many years and has left been well controlled .Last A1c available to me from few months ago was more than 9%. Patient needs better control of diabetes to attenuate CKD progression. Patient verbalized understanding of that May, Chronic kidney disease, stage 3b (ICD-10 - N18.32) Likely from diabetic nephropathy and arterionephroscleros is. I have blood work from 5 months ago which was creatinine 1.53 mg deciliter and GFR 34 mm/min There is is no UA or proteinuria quantification patient low-dose lisinopril. Blood pressures well controlled Diabetes has been uncontrolled with last A1c in December was more than 9 percent. Patient needs better control of diabetes with treatment chronic kidney disease progression I asked the patient to stay away from NSAIDs I will do a renal ultrasound along with repeated blood work as above May, Primary hypertension (ICD-10 - I10) Seems well controlled. I will continue same blood pressure medication May, Neuropathy (ICD-10 - G62.9) Patient is taking gabapentin 300 mg 3 times daily which seems appropriately dosed May, Localized edema (ICD-10 - R60.0) I will start the patient on Lasix 40 mg every other day. Asked the patient to follow low-salt diet May, Hyperlipidemia, unspecified hyperlipidemia type (ICD-10 - E78.5) [facility] Other 07-01-2018 History general Narrative - Reported* Type Description Date Medical History guillan-barre 2002 Medical History DM Medical History shingles Medical History [place] 06/2018 Medical History heart attack Medical History PARESTHESIA Medical History [place] Medical History MACROGLOSSIA Surgical History back surgery 2011 Surgical History meniscus repair left knee Surgical History hysterectomy 2016 Surgical History 2 heart stents 06/2018 Surgical History right TKA 03/04/18 Hospitalization History see above [facility] Other Evaluation + Plan note Future Appointments Appointment Date:11/21/2023 10:30:00 AM Scheduled Provider:BRIGIDA WILLOUGHBY PA-C Location:[facility] Appoint[facility]O [facility] InformationNort tamyca Other Evaluation noteNo assessment information available [facility] Work Phone: History of Present illness Narrative* Today for follow-up management for coronary artery disease with previous presentation with anteriorMI and prior PCI to the RCA and LAD, morbid obesity, hypertension and hyperlipidemia. Since last time I saw her she reported that she has been experiencing multiple falls with gait difficulty. She has been seen by neurology and is undergoing evaluation for that. She denies any cardiac complaint of chest pain, palpitation, lightheadedness, dizziness or syncope. * Assessment * 1. Coronary artery disease, presentation with acute inferior STEMI in June 29, 2018, percutaneous coronary intervention to the mid RCA with subsequent PCI to the LAD after presentation with crescendoangina in April of last year. Patient is sedentary but no cardiac symptoms reported * 2. Morbid obesity with current weight gain * 3. Normal left ventricular ejection fraction. * 4. diabetes mellitus. * 5. Hyperlipidemia * 6. hypertension * 7. Reported fall recently with gait disturbance being evaluated by neurology currently patient has been placed in assisted living situation * Plan * 1. Patient will remain on current therapy * 2. Patient was counseled regarding losing weight, exercise and dietary modification * 3. We will try to retrieve her recent lab work * 4. We'll see her back in the office in 9-month * 5. Fall precaution education * 6. Advised to try to lose 10-12 pounds by next time [facility] [address] DO Work Phone: History of Present illness Narrative* Patient s here for follow-up to management for coronary artery disease prior myocardial infarction and PCI to the RCA and LAD, morbid obesity, hyperlipidemia and hypertension. Since last time I saw her she remained in a local assisted living. She continues to complain of difficulty with gait. She had several falls. She describes very limited exercise tolerance. She denies complaint of chest pain,palpitation, lightheadedness, dizziness or syncope. Her recent cardiac testing CT scan and MRI noted. There is a possibility of normal pressure hydrocephalus based on her diagnostic testing. * Assessment * 1. Coronary artery disease, presentation with acute inferior STEMI in June 29, 2018, percutaneous coronary intervention to the mid RCA with subsequent PCI to the LAD after presentation with crescendoangina in April of last year. Patient is sedentary but no cardiac symptoms reported * 2. Morbid obesity with current weight gain * 3. Normal left ventricular ejection fraction. * 4. diabetes mellitus. * 5. Hyperlipidemia * 6. hypertension * 7. Reported fall recently with gait disturbance being evaluated by neurology currently patient has been placed in assisted living situation possibility of normal pressure hydrocephalus is suspected based on her symptoms. She followed by neurology * Plan * 1. Patient will remain on current therapy prepped stopping aspirin * 2. Patient was counseled regarding losing weight, exercise and dietary modification * 3. Reviewed her recent lab work * 4. We'll see her back in the office in 9-month * 5. Fall precaution education * 6. Advised to try to lose 10-12 pounds by next time [facility] [address] DO Work Phone: Hospital course Narrative No data available for this section [facility] No data available for this section [facility] No data available for this section [facility] Summary Purpose Family History No Family History Records FoundUnknown Family Member Name Dates Details Coronary stent patent: Fathe r Status:Active Family history of diabetes m ellitus: Brother(V18.0, Z83.3) Status:Active H/O heart bypass surgery: Br other(V45.81, Z95.1) Status:Active Unknown Family Member Name Dates Details Coronary stent patent: Fathe r Status:Active Family history of diabetes m ellitus: Brother(V18.0, Z83.3) Status:Active H/O heart bypass surgery: Br other(V45.81, Z95.1) Status:Active Relationship Condition Age at Onset Recorded Date/T ajith Not Specified Diabetes mellitus Unknown Coronary artery disease Unknown Alzheimer's disease Unknown Kidney disorder Unknown Myocardial infarction Unknown Advance Directives No Advanced Directives Records Found Advance Directive Response Recorded Date/ Time Advance Directives No February 13 018 1:46pm Chief Complaint MALCOM KNOWLES is being seen for a 9 month follow-up of.MALCOM KNOWLES is being seen for a 9 month follow-up of. Chief Complaint and Reason for Visit Chief Complaint M25.512 Additional Source Comments INFORMATION SOURCE (unrecogn ized section and content) DATE CREATED AUTHOR 01/19/2021 [facility] DATE CREATED AUTHOR AUTHOR'S ORGANIZ ATION 04/07/2023 [facility] DATE CREATED AUTHOR AUTHOR'S ORGANIZ ATION 04/07/2023 [employer] DATE CREATED AUTHOR AUTHOR'S ORGANIZ ATION 05/11/2023 [facility] DATE CREATED AUTHOR AUTHOR'S ORGANIZ ATION 08/08/2023 [facility] DATE CREATED AUTHOR AUTHOR'S ORGANIZ ATION 11/19/2023 [facility] REASON FOR VISIT (unrecogniz ed section and content) RENAL CKDRENAL 4 month Follo w upRight Shoulder InjuryRight Shoulder PainNo InformationRENAL 6 month Follow upRecheck Right ShoulderClinicallab results Patient Care team informatio n (unrecognized section and content) Team Status: Active Member Role Status Dates Dusty Walters MD Primary Care Provider Active Team Status: Inactive Member Role Status Dates Dusty Walters MD Primary Care Provider Active Lizandro Martins MD Attending Provider Active Team Status: Inactive Member Role Status Dates Dusty Walters MD Primary Care Provider Active Anjana Pal APRN Attending Provider Active Goals (unrecognized section and content) Goals may be documented in a n alternate section FOR RECORDS PERTAINING TO PATIENTS WHO ARE OR HAVE BEEN ENROLLED IN A CHEMICAL DEPENDENCY/SUBSTANCEABUSE PROGRAM, SOME INFORMATION MAY BE OMITTED. This clinical summary was aggregated from multiple sources. Caution should be exercised in using it in the provision of clinical care. This summary normalizes information from multiple sources, and as a consequence, information in this document may materially change the coding, format and clinical context of patient data. In addition, data may be omitted in some cases. CLINICAL DECISIONS SHOULD BE BASED ON THE PRIMARY CLINICAL RECORDS. [employer] provides no warranty or guarantee of the accuracy or completeness of information in this document.
--- NOTE | 2023-11-21 14:32 | US_ITS ---
Patient Name: MALCOM KNOWLES MR#: [id number] : 1955 Exam Date: 11/21/2023 Ordering Doctor: DR. JOSE SNOW . RADIOLOGY REPORT PROCEDURE: MM DIAGNOSTIC MAMMO UNILAT LT, 11/21/2023, 14:04 US BREAST LT LIMITED, 11/21/2023, 14:38 COMPARISON: MM SCREENING MAMMO BI, 10/23/2023. MG MAMM SCREEN 3D DORIE CAD, 10/11/2022. MG MAMM SCREEN 3D DORIE CAD, 10/09/2021. MG MAMM SCREEN DORIE W CAD, 10/06/2020. INDICATIONS: Abn Mammogram Calculator Name NCI Breast Cancer Risk Assessment Tool 5 Year Breast Cancer Risk 1.50% Lifetime Breast Cancer Risk 4.50% Personal Breast Cancer No Personal Ovarian Cancer No Treatments Hysterectomy Family Cancers Father with prostate cancer at age 66. LOCATION: [facility] BREAST COMPOSITION: Scattered areas fibroglandular density. FINDINGS: DIAGNOSTIC CATEGORY 3--PROBABLY BENIGN FINDING. THE FOLLOWING FINDING(S) HAS A HIGH PROBABILITY OF A BENIGN ETIOLOGY: LEFT BREAST: Spot magnification views demonstrate persistence of asymmetries within the anterior upper inner and upper outer quadrants. Ultrasound evaluation demonstrates collection of benign appearing cysts at the 10 o'clock position; largest is 7 millimeters. Short segment of slightly dilated duct at the 2 o'clock position without internal debris or mass. Follow-up mammography and ultrasound of left breast in 6 months is recommended to document stability. RECOMMENDATIONS: SHORT TERM FOLLOW-UP DIAGNOSTIC MAMMOGRAM LEFT BREAST IN 6 MONTHS. SHORT TERM FOLLOW-UP ULTRASOUND LEFT BREAST IN 6 MONTHS. PLEASE NOTE: A NORMAL MAMMOGRAM DOES NOT EXCLUDE THE POSSIBILITY OF BREAST CANCER. A CLINICALLY SUSPICIOUS PALPABLE LUMP SHOULD BE BIOPSIED. Dictated by: Toni Brady M.D. on 11/21/2023 at 15:25 Approved by: Toni Brady M.D. on 11/21/2023 at 15:31
== END 2023-11-21 14:02 | disposition home or self-care (01) ==
PROVIDERS: PCP Family Medicine; Visit Provider Family Medicine
DX: R92.8 Other abnormal and inconclusive findings on diagnostic imaging of breast (principal); Z80.42 Family history of malignant neoplasm of prostate
CPT/HCPCS: 76642; 77065

== ENCOUNTER 2023-12-13 08:13 | Outpatient (OUT) | payer MEDICARE, OTHER, SELFPAY ==
--- OUTSIDE RECORDS SUMMARY | 2023-12-13 08:17 | XMS_ITS | CCD ---
Author Name Unknown Address [address] [place] [address] Organization [facility] Care Team Providers Care Clinical Immunologist Name Role Phone Dusty Walters Unavailable Unavailable Unavailable Chip Craft Unavailable Lizandro Martins Unavailable Selena, Dr. Dusty Zacarias Primary Care Unavailab Gadiel Maxwell Attending Unavailable Gadiel Merino Referring Unavailable WALTERS ., DR DUSTY Seals Attending Unavailable WALTERS ., DR DUSTY Seals Admitting Unavailable WALTERS ., DR DUSTY Seals Primary Care Unavailable WATLERS ., DR DUSTY Seals Consulting Unavailable WALTERS ., DR DUSTY Seals Primary Care Unavailable MISC, DR ROSAS Consulting Unavailable MISC, DR ROSAS Attending Unavailable MISC, DR ROSAS Admitting Unavailable WALTERS ., DR DUSTY Seals Attending Unavailable WALTERS ., DR DUTSY Saels Admitting Unavailable WALTERS ., DR DUSTY Seals [...] Primary Care Unavailable MONSERRAT .CONNER Attending Unavailable WLATERS ., DR DUSTY Seals Primary Care Unavailable [...] ., DR DUSTY Seals Primary Care Unavailable CANTON, DR NIALL Underwood Consulting Unavailable BEJ, AJ Admitting Unavailable WALTERS ., DR DUSTY Seals Primary Care Unavailable BEJ, AJ Consulting Unavailable BEJ, AJ Attending Unavailable Felix Esaley Primary Care Physician [phone] Brigida George Unavailable Tanika Lopez Unavailable MD Dusty Walters Primary Care Provider [phone] MD Lizandro Martins Attending Provider DARRICK Pal Attending Provider [phone] Anjana Pal Unavailable Lizandro Martins Admitting Unavailable Lizandro Martins Attending Unavailable Dusty Walters Primary Care Unavailable Anjana Pal Admitting Unavailable Anjana Pal Attending Unavailable Dusty Walters Primary Care Unavailable BRIGIDA WILLOUGHBY Attending Unavailable Mariangel Campbell Attending Unavailable AdrianMariangel kohler Admitting Unavailable AdrianMariangel kohler Attending Unavailable Felix Easley Attending Unavailable Felix Easley Attending Unavailable Mariangel Campbell Attending Unavailable Felix Easley Attending Unavailable BAKHOUS, WHITIZ Referring Unavailable BRIGIDA WILLOUGHBY Attending Unavailable BRIGIDA WILLOUGHBY Attending Unavailable CHIP CRAFT Referring Unavailable Magui Sam Attending Unavailable Felix Easley Attending Unavailable Felix Easley Admitting Unavailable Allergies Allergy Classification Reported Allergen(s) Allergy Type Date of Onset Reaction(s) Facility (6 sources) Sulfonamides (Antibiotic); Translations: [Sulfa Drugs] Allergy to drug (finding) Unknown (qualifier value) [facility] (2 sources) FLU; Translations: [FLU] Allergy to drug (finding) [facility] 250 DO Work Phone: (9 sources) Sulfonamides (Antibiotic) Drug allergy Unknown [facility]r Other (9 sources) Influenza Vac Recom CARREON Quad PF Drug allergy Unknown [facility] Other (2 sources) Sulfonamides (Antibiotic) Drug allergy (disorder) [facility] (2 sources) Flu Vaccine (3 yr +) Drug allergy (disorder) 01-18-20 16 [facility] (3 sources) Sulfonamides (Antibiotic); Translations: [Sulfa (Sulfonamide Antibiotics)] Allergy to substance 03-31-20 19 Rash [facility] (3 sources) Influenza Virus Vaccines; Translations: [Influenza Virus Vaccines] Allergy to substance 03-31-20 19 Hx. [place] ; told no flu vaccines [facility] (2 sources) influenza A virus A//[id number] (H1N1) antigen / influenza A virus A//[id number] (H3N2) antigen / influenza B virus B/[place] antigen / influenza B virus B/ antigen; Translations: [influenza virus vaccine] Drug Allergy [facility] Comment on above: contraindicated due to guilphyllis barre (1 source) influenza virus vaccine, inactivated; Translations: [influenza virus vaccine, inactivated] Propensity to adverse reactions (disorder) [facility] Medications Current Medications Medication Drug Class(es) Dates Sig (Normalized) Sig (Original) acetaminophen 500 mg oral tablet (19 sources) Start: 05-16-2023 take 2 tablets by [...] / oxyCODONE hydrochloride 5 mg oral tablet (14 sources) Opioid Agonist Start: 09-09-2023 take 1 tablet by mouth every six hours as needed for pain Percocet 5 mg-325 mg oral tablet 1 tab(s), Oral, q6hr, Refill(s) 0, as needed for pain Start Date: 11/20/23 Status: Ordered Start: 05-16-2023 take 1 tablet [...] Alpha Lipoic Acid 600 mg oral capsule (2 sources) Start: 023 take 1 capsule by mouth [...] day Not-Taking atorvastatin 80 mg oral tablet (18 sources) HMG-CoA Reductase Inhibitor Start: 05-16-2023 take 1 tablet by mouth once daily atorvastatin 80 mg Tab 80 mg = 1 tab(s), Oral, Daily, Refills(s) 0 Start Date: 05/16/23 Status: Ordered Start: 06-30-2018 End: 04-09-2019 take 80 mg by mouth once daily in the evening Atorvastatin Active 80 MG PO Every evening April 09, 2019 12:00am biotin 10 mg oral tablet (17 sources) Start: 09-09-2023 take 1 tablet by mouth twice daily biotin 10 mg oral tablet 10 mg = 1 tab(s), Oral, BID, # 30 tab(s), Refills(s) 0 Start Date: 09/09/23 Status: Ordered Start: 06-27-2018 End: 04-09-2019 take 80598 ug by mouth twice daily Biotin Discontinued 64146 MCG PO Twice daily June 27, 2018 12:00am April 09, 2019 9:42am Start: 02-18-2018 End: 03-13-2018 take 1000 ug by mouth twice daily Biotin Discontinued 1000 MCG PO Twice daily February 18, 2018 12:00am March 13, 2018 10:19am take 1 tablet by fermín th twice daily Biotin 42339 MCG 1 tablet Orally twice a day Active take 1 tablet by fermín th every twelve hours Biotin 1000 MCG 1 tablet Orally twice a day Active take 1 tablet by fermín th once daily Biotin 1000 MCG Oral Tablet Chewable Take 1 tablet daily Quantity: 0 Refills: 0 Ordered: 12-Mar-2022 DO Active calcium carbonate 750 mg chewable tablet (18 sources) Start: 09-09-2023 Tums Chewy Bit es [...] Active cetirizine hydrochloride 5 mg oral tablet (18 sources) Histamine-1 Receptor Antagonist Start: 05-16-2023 take [...] tablet by fermín th every twenty-four hours Cetirizine HCl 10 MG [...] day(s), # 14 tab(s), Refills(s) 0, Pharmacy: [facility] [place], 158, cm, 05/16/23 14:43:00 EDT, Height/Length Dosing, 130.6, kg, 05/16/23 14:43:00 EDT, Weight Dosing Start Date: 05/16/23 Stop Date: 05/23/23 Status: Ordered clopidogrel 75 mg oral tablet (20 sources) P2Y12 Platelet Inhibitor Start: 05-16-2023 take 1 tablet by mouth once daily Plavix 75 mg Tab 75 mg = 1 tab(s), Oral, Daily, Refills(s) 0 Start Date: 05/16/23 Status: Ordered Start: 03-16-2019 End: 04-19-2020 take 75 mg by mouth once daily Clopidogrel Discontinue d 75 MG PO Daily April 09, 2019 12:00am April 19, 2020 2:56pm cranberry preparation 450 mg oral tablet (12 sources) Non-Standardized Food Allergenic Extract, Non-Standardized Plant [...] 10:19am docusate sodium 100 mg oral capsule (20 sources) Start: 05-16-2023 take 1 capsule by [facility] once daily as needed for constipation [...] 10:41am donepezil hydrochloride 10 mg oral tablet (14 sources) Start: 02-26-2022 take 1 tablet by mouth twice daily donepezil 10 mg Tab 10 mg = 1 tab(s), Oral, BID, Refills(s) 0 Start Date: 05/16/23 Status: Ordered 0.5 ml dulaglutide 3 mg/ml auto-injector (13 sources) GLP-1 Receptor Agonist Start: 09-09-2023 inject 1.5 mg by subcutaneous injection every week Trulicity Pen 1.5 mg/0.5 mL subcutaneous solution 1.5 mg, SubCutaneous, qWeek, # 12 EA, Refills(s) 0, Pharmacy: [facility] [place], 158, cm, 09/09/23 16:01:00 EDT, [...] Active 20 M G PO Twice daily April 09, 2019 12:00am Start: 06-03-2018 take 1 tablet by fermín th every twenty-four hours Famotidine 20 MG 1 tablet at bedtime Orally Once a day Jun, Active Start: 02-18-2018 End: 06-27-2018 take 40 mg by mouth once daily at bedtime Famotidine Discontinued 40 MG PO Daily at bedtime March 13, 2018 12:00am June 27, 2018 10:44am fluconazole 150 mg oral tablet (4 sources) Azole Antifungal Start: 04-01-2023 take 1 tablet by mouth once Diflucan 150 mg Tab 150 mg = 1 tab(s), Oral, Once, # 1 tab(s), Refills(s) 0, Pharmacy: [facility] Start Date: 04/01/23 Status: Ordered Freestyle Bang 2 sensors (2 sources) Start: 07-15-2023 Freestyle LIbr e 2 sensors Freestyle Bang 2 sensors, See Instructions, 1 EA, 4, One box of sensors, Supply Start Date: 07/15/23 Status: Ordered furosemide 40 mg oral tablet (17 sources) Loop Diuretic Start: 05-16-2023 take 1 [...] 2019 2:42pm gabapentin 600 mg oral tablet (20 sources) Anti-epileptic Agent Start: 05-16-2023 take 1 [...] afternoon and bedtime. take 1 capsule by [facility] every eight hours Gabapentin 300 MG 1 capsule Orally Three times a day Active glimepiride 2 mg oral tablet (18 sources) Sulfonylurea Start: 05-16-2023 take 1 tablet by mouth once daily glimepiride 2 mg Tab 2 mg = 1 tab(s), Oral, Daily, Refills(s) 0 Start Date: 05/16/23 Status: Ordered Start: 03-16-2019 End: 04-09-2019 take 2 mg by mouth once daily in the morning Glimepiride Active 2 MG PO Every morning April 09, 2019 12:00am glucosamine hydrochloride 1500 mg oral tablet (2 sources) Start: 09-09-2023 take 2 tablets by mouth once daily at bedtime glucosamine hydrochloride 1500 mg oral tablet See Instructions, Refill(s) 0, 2 tab(s) Oral Daily at bedtime Start Date: 09/09/23 Status: Ordered hydrocortisone 25 mg/ml topical cream (3 sources) Corticosteroid Start: 11-20-2023 hydrocortisone Top 2.5% Crm See Instructions, Refill(s) 0, apply rectally twice daily as needed for hemorrhoids Start Date: 11/20/23 Status: Ordered Start: 09-09-2023 hydrocortisone 2.5% Rectal Crm w/Appl 1 teresa, Rectal, BID, 30 gram, Refill(s) 0, us as needed Start Date: 09/09/23 Status: Ordered hydrOXYzine pamoate 25 mg oral capsule (12 sources) Antihistamine Start: 03-31-2019 End: 04-09-2019 take 25 mg by mouth every three hours Hydroxyzine Pamoate Active 25 MG PO Q3H 60 April 09, 2019 12:00am Start: 03-31-2019 End: 04-09-2019 take 50 mg by mouth every three hours Hydroxyzine Pamoate Discontinued 50 MG PO Q3H March 31, 2019 12:00am April 09, 2019 9:42am Start: 03-06-2018 End: 06-27-2018 take 25 mg by mouth every three hours Hydroxyzine Pamoate Discontinued 25 MG PO Q3H 30 March 13, 2018 12:00am June 27, 2018 [...] insulin aspart, human 100 unt/ml pen injector (9 sources) Insulin Analog Start: 05-16-2023 Insulin Aspart FlexPen 100 units/mL injectable solution See Instructions, test ac and hs and cover 150-200 42u, 210-250 4u, 251-300 6u, 301-350 8u, 351-400 10u, 401-1000 12u, Also inject 8u at lunch abd 10u at dinner regardless of readings and follow scale rest of time, Refills(s) 0 Start Date: 05/16/23 Status: Ordered Start: 04-09-2019 Insulin Aspart U-100 (Novolog Flexpen [...] Discontinued 18 UNITS SUBCUT Daily at bedtime 10 March 13, 2018 12:00am June 27, 2018 [...] 9:49am loperamide hydrochloride 2 mg oral tablet (2 sources) Opioid Agonist Start: 09-09-2023 take 1 [...] 10:43am memantine hydrochloride 10 mg oral tablet (14 sources) G-ftrtjd-U-aspartate Receptor Antagonist Start: 01-29-2022 take 1 tablet by mouth twice daily memantine 10 mg Tab 10 mg = 1 tab(s), Oral, BID, Refills(s) 0 Start Date: 05/16/23 Status: Ordered Milk of Magnesia (2 sources) Start: 09-09-2023 take 2400 mg by mouth [...] 2018 10:44am nitroglycerin 0.4 mg sublingual tablet (7 sources) Nitrate Vasodilator Start: 04-19-2020 nitroglycerin 0.4 mg sublingual Tab 0.4 mg = 1 tab(s), SubLingual, q5min, PRN for chest pain, # 100 tab(s), Refills(s) 0 Start Date: 05/16/23 Status: Ordered Normal saline (1 source) Saline Nasal Spr ay 0.65 % as directed Nasally Active ondansetron 4 mg oral tablet (3 sources) Serotonin-3 Receptor Antagonist Start: 05-16-2023 take 1 tablet by mouth every six hours ondansetron 4 mg Tab 4 mg = 1 tab(s), Oral, q6hr, Refills(s) 0 Start Date: 05/16/23 Status: Ordered 24 hr oxybutynin chloride 15 mg extended release oral tablet (14 sources) Cholinergic Muscarinic Antagonist Start: 03-09-2022 take [...] therapy treat and evaluate, properly sized walker, (2 sources) Start: 08-20-2023 Physical therapy treat and evaluate, properly sized walker, Physical therapy treat and evaluate, properly sized walker,, See Instructions, 1 EA, 0, see above, Supply Start Date: 08/20/23 Status: Ordered POLYETHYLENE GLYCOL 3350 (2 sources) Osmotic Laxative Start: 09-09-2023 take 17 g by mouth once daily polyethylene glycol 3350 17 gm, Oral, Daily, Refill(s) 0, dissolve in 8ozs of water Start Date: 09/09/23 Status: Ordered PreserVision AREDS 2 (2 sources) Start: 09-09-2023 PreserVision AREDS 2 1 tab(s), Chewed, Daily, Refill(s) 0 Start Date: 09/09/23 Status: Ordered sennosides, custodial 8.6 mg oral tablet (2 sources) Start: 04-09-2019 take 2 tablets by mouth once daily Sennosides (Senna Lax) 8.6 mg Tablet Active 2 TAB PO DAILY@12 April 09, 2019 12:00am Sodium Chloride (2 sources) Start: 09-09-2023 Saline Mist 0.65% nasal spray [...] venlafaxine 150 mg extended release oral capsule (8 sources) Serotonin and Norepinephrine Reuptake Inhibitor Start: [...] day Active Vitamin B12 1000 mcg Tab (2 sources) Start: 09-09-2023 take 1 tablet by mouth once daily Vitamin B12 1000 mcg Tab 1,000 mcg = 1 tab(s), Oral, Daily, Refills(s) 0 Start Date: 09/09/23 Status: Ordered Vitamin D-3 1000 UNIT (5 sources) take 1 capsule by mouth once daily Vitamin D-3 1000 UNIT 1 capsule Orally Once a day Active Vitamin D3 1000 intl units (25 mcg) Tab (2 sources) Start: 09-09-2023 take 1 tablet by mouth once daily Vitamin D3 1000 intl units (25 mcg) Tab 25 mcg = 1 tab(s), Oral, Daily, Refills(s) 0 Start Date: 09/09/23 Status: Ordered zinc oxide 0.2 mg/mg topical ointment (2 sources) Start: 09-09-2023 zinc oxide Top 20% Oint [...] 09, 2019 9:42am Freestyle Bang 2 system (2 sources) Start: 07-15-2023 Freestyle Bang 2 system Freestyle Bang 2 system, See Instructions, 1 EA, 0, pt to check BS 4 times per day, Supply Start Date: 07/15/23 Status: Ordered Fdckluzk-Vatrg-Jdwjr -Cf Borate ([employer] 750 mg-100 mg- 1.65 mg-108 mg Tablet (4 sources) Start: 06-27-2018 End: 04-09-2019 take 1 tablet by mouth once daily Iimacdmu-Mkwyc-Lwhw u-Cf Borate ([employer] 750 mg-100 mg- 1.65 mg-108 mg Tablet Discontinued 2 TAB PO Daily June 27, 2018 12:00am April 09, 2019 9:42am Start: 02-18-2018 End: 03-06-2018 take 1 tablet by mouth once daily Bbczefei-Hkalo-Wqgzl-Cf Borate ([employer]) 750 mg-100 mg- 1.65 mg-108 mg Tablet Discontinued 2 TAB PO Daily February 18, 2018 12:00am March 06, 2018 12:28pm glyBURIDE 5 mg oral tablet (6 sources) Sulfonylurea Start: 02-18-2018 End: 03-16-2019 take 5 mg by mouth once daily Glyburide Discontinued 5 MG PO Daily June 27, 2018 10:44am March 16, 2019 2:26pm Home health physical therapy evaluatoin and treatment (2 sources) Start: 08-23-2023 Home health ph ysical therapy evaluatoin and treatment Home health physical therapy evaluatoin and treatment, See Instructions, 1 EA, 0, HH PT evaluation and treatment, Supply Start Date: 08/23/23 Status: Ordered JOSÉ ANTONIO Schneider 20 (20 sources) Start: 06-20-2017 Synvisc Jun [...] 5 MG PO Daily March 13, 2018 12:00am June 27, 2018 10:43am losartan potassium 25 mg [...] Tartrate Active 12.5 MG PO Twice daily April 09, 2019 12:00am take 0.5 tablet [...] 16, 2019 12:00am April 09, 2019 9:42am Ac-Bih-Viwgr-Calcium Carb-K1 (Women's 50 Plus Daily Formula) 400 mcg-500 mg calcium-20 mcg Tablet (4 sources) Start: 06-27-2018 End: 03-16-2019 take 1 tablet by mouth once daily Wy-Ddz-Tjvbl-Calcium Carb-K1 (Women's 50 Plus Daily Formula) 400 mcg-500 mg calcium-20 mcg Tablet Discontinued 1 TAB PO Daily June 27, 2018 12:00am March 16, 2019 2:32pm Start: 02-18-2018 End: 03-13-2018 take 1 tablet by mouth once daily Vn-Qqd-Mywhf-Calcium Carb-K1 (Women's 50 Plus Daily Formula) 400 mcg-500 mg calcium-20 mcg Tablet Discontinued 1 TAB PO Daily February 18, 2018 12:00am March 13, 2018 10:20am Novolin L 100 UNIT/ML SUSP (1 source) Novolin L 100 UNIT/ML SUSP USE DIRECTED. Quantity: 0 Refills: 0 Ordered: 04-Apr-2023 DO Active nystatin 861695 unt/ml topical cream (1 source) Polyene Antifungal Start: 11-20-20 apply 15 g topically once as needed nystatin Top 100,000 units/g Crm 15 gram See Instructions, Refill(s) 0, apply topically to affected area(s) per plan as needed Start Date: 11/20/23 Status: Ordered OT EVALUATION (2 sources) Start: 07-15-20 OT EVALUATION OT EVALUATION, See Instructions, 1 EA, 0, evaluate and treat better fitting wheel chair, Supply Start Date: 07/15/23 Status: Ordered polyethylene glycol 400 4 mg/ml / propylene glycol 3 mg/ml ophthalmic solution (2 sources) Start: 06-27-20 18 End: 04-09-20 Peg 400-Propylene Glycol (Pf) (Systane (Pf)) 0.4-0.3 % Dropperette Discontinued 1 DROPS OPHTHALMIC As Directed June 27, 2018 12:00am April 09, 2019 9:42am potassium chloride 20 meq extended release oral tablet (12 sources) Start: 09-09-20 take 1 tablet by mouth once daily [...] 13, 2018 10:19am take 1 tablet by [facility] once daily Vitamin B12 1000 MCG Oral [...] Administrative/social admission (3 sources) Lives in a [facility]; Translations: [Person living in residential institution] 03-07-2018 Episodic Cancer of uterus (2 sources) Malignant neoplasm of uterus 09-04-2023 Chronic Chronic kidney disease (14 sources) Chronic kidney disease stage 3B ; Translations: [Chronic kidney disease, stage 3b] 03-07-2018 Chronic Coronary atherosclerosis and other heart disease (8 sources) Double coronary vessel disease; Translations: [Coronary atherosclerosis of unspecified type of vessel, [place] or graft] Onset: 08-29-2022 04-01-2019 Chronic Coronary atherosclerosis and other heart disease (2 sources) Patient post percutaneous transluminal coronary angioplasty; Translations: [Percutaneous transluminal coronary angioplasty status] Episodic Deficiency and other anemia (1 source) Other vitamin B12 deficiency anemias Episodic Deficiency and other anemia (2 sources) Anemia; Translations: [Anemia, unspecified] 03-07-2018 Episodic Diabetes mellitus with complications (20 sources) Type 2 diabetes mellitus with other diabetic arthropathy; Translations: [Type 2 diabetes mellitus with diabetic neuropathy, unspecified] Onset: 05-15-2022 Resolved: 05-15-2022 Chronic Diabetes mellitus without complication (20 sources) Diabetes mellitus; Translations: [Diabetes mellitus without mention of complication, type II or unspecified type, not stated as uncontrolled] Onset: 11-09-2022 Chronic Comment on above: Linked per outpaiten [facility] policy Disorders of lipid metabolism (20 sources) Hyperlipidemia; Translations: [Other and unspecified hyperlipidemia] Onset: 05-15-2022 Resolved: 05-15-2022 Chronic Essential hypertension (20 sources) Essential hypertension; Translations: [Unspecified essential hypertension] Onset: 05-15-2022 Resolved: 05-15-2022 Chronic Comment on above: Linked per outpaiten t [facility] policy Fluid and electrolyte disorders (1 source) Hypokalemia Episodic Genitourinary symptoms and ill-defined conditions (15 sources) Incontinence without sensory awareness; Translations: [Urinary incontinence] Onset: 07-04-2022 Chronic Genitourinary symptoms and ill-defined conditions (7 sources) Dysuria; Translations: [Dysuria] Onset: 12-17-2022 Episodic Headache; including migraine (2 sources) Migraine 09-04-2023 Chronic Hypertension with complications and [...] subsequent encounter] Onset: 11-20-2022 Episodic Mood disorders (2 sources) Major depression in full remission; Translations: [Single episode of major depression in full remission] 09-09-2023 Chronic Mood disorders (4 sources) Mood disorders; Translations: [DEPRESSION UNSPECIFIED] Onset: 11-09-2022 Nutritional deficiencies (2 sources) Vitamin D deficiency 09-04-2023 Chronic Occlusion or [...] knee joint] 03-31-2019 Chronic Other diseases of bladder and urethra (1 source) Male urethral stricture; Translations: [Unspecified urethral stricture, male, unspecified site] Onset: 11-21-2023 Episodic Other diseases of bladder and urethra (1 source) Urethral stricture 11-21-2023 Episodic Other diseases of kidney and ureters (2 sources) Renal impairment; Translations: [Disorder of kidney and ureter, unspecified] 03-07-2018 Episodic Other hereditary and degenerative nervous system conditions (1 source) Mild cognitive impairment, so stated; Translations: [MILD COGNTV IMPAIRMNT UNCRTN/UNKNWN] Onset: 12-22-2022 Chronic Other hereditary and degenerative nervous system conditions (2 sources) Essential tremor 09-04-2023 Chronic Other nervous system [...] pain] 03-07-2018 Episodic Other nervous system disorders (2 sources) Abnormal gait 09-04-2023 Episodic Other nervous system disorders (2 sources) History of Guillain [place] syndrome 09-09-2023 Episodic Other non-traumatic joint disorders (1 source) Other specified joint disorders, left shoulder Episodic Other non-traumatic joint disorders (1 source) Pain in right shoulder Episodic Other non-traumatic joint disorders (1 source) Pain in left shoulder Episodic Other nutritional; endocrine; and metabolic disorders (14 sources) Morbid obesity; Translations: [Morbid obesity] 03-07-2018 Chronic Other nutritional; endocrine; and metabolic disorders (14 sources) Body mass index 40+ - severely obese; Translations: [Morbid obesity] 05-16-2023 Chronic Other nutritional; endocrine; and metabolic disorders (2 sources) Morbid (severe) obesity due to excess calories; Translations: [MORBID SEVERE OBES D/T EXCESS DEV] Onset: 01-21-2023 Chronic Other nutritional; endocrine; and metabolic disorders (3 sources) Obesity 05-16-2023 Chronic Other screening for suspected conditions (not mental disorders or infectious disease) (6 sources) Encounter for screening mammogram for malignant neoplasm of breast; Translations: [Protein level - finding] Onset: 10-11-2022 Episodic Peripheral and visceral atherosclerosis (2 sources) Arteriosclerotic vascular disease 09-04-2023 Chronic Residual codes; [...] [Pain in left shoulder] Onset: 07-01-2023 Unclassified (2 sources) Long-term current use of insulin 09-06-2023 Urinary tract infections (6 sources) Urinary tract infection, site not specified; [...] Onset: 08-27-2022 Episodic Other aftercare (1 source) custodial (current) use of aspirin; Translations: [[facility] CURRENT USE OF ASPIRIN] Onset: 01-28-2023 Episodic Other aftercare (1 source) Other long term care social worker (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 therapy; Translations: [[employer] CURRENT DRUG THERAPY] Onset: 01-28-2023 Episodic Other aftercare (1 source) 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#1.00TIFF Normal [facility] Outside Mammographyon 2023 Outside Mammography [id number]#1.00TIFF [facility] RAD - Ultrasound Reporton RAD - Ultrasound Report [id number]#1.00TIFF [facility] Formson 11-22-2023 Forms [id number]#1.00TIFF [facility] Recordson 11-22 [facility] Records [id number]#1.00TIFF [facility] Physician Referralon 023 Physician Referral [id number]#1.00TIFF [facility] Ambulatory Visit Summaryon 1 01-22-2023 Ambulatory Visit Summary MALCOM KNOWLES :1955 Visit Date:11/21/2023 Ambulatory Visit Instructions Your Diagnosis Mixed incontinence Gross hematuria UTI (urinary tract infection) Type 2 diabetes mellitus with chronic kidney disease Tests Performed Urnls Dip Stick Auto w/o Microscopy POC 07591 Your Care Team Attending Physician - FARTUN MCCOLLUM, BRIGIDA Seals Primary Care Physician - Kaushal JUDGE, Felix Lau Referring Physician - DEJUAN JUDGE, CHIP This Is Your Medications List Contact prescribing physician if questions or concerns Misc Prescription (Freestyle Bang 2 sensors) Misc Prescription (Freestyle Bang 2 system) Misc Prescription (Home health physical therapy evaluatoin and treatment) Misc Prescription (Misc DME Prescription) Misc Prescription (OT EVALUATION) Misc Prescription (Physical therapy treat and evaluate, properly sized walker,) acetaminophen (acetaminophen 500 mg Tab) acetaminophen-oxyc odone (Percocet 5 mg-325 mg oral tablet) acetaminophen-oxyc odone (acetaminophen-oxy codone 325 mg-5 mg Tab) alpha-lipoic acid (Alpha Lipoic Acid 600 mg oral capsule) atorvastatin (atorvastatin 80 mg Tab) biotin (biotin 10 mg oral tablet) calcium carbonate (Tums Chewy Bites 750 mg oral tablet, chewable) cetirizine (cetirizine 5 mg oral tablet) cholecalciferol (Vitamin D3 1000 intl units (25 mcg) Tab) clopidogrel (Plavix 75 mg Tab) cranberry (Cranberry oral tablet) cyanocobalamin (Vitamin B12 1000 mcg Tab) docusate (Colace 100 mg Cap) donepezil (donepezil 10 mg Tab) dulaglutide (Trulicity Pen 1.5 mg/0.5 mL subcutaneous solution) famotidine (famotidine 20 mg Tab) fluconazole (Diflucan 150 mg Tab) furosemide (furosemide 40 mg Tab) gabapentin (gabapentin 600 mg Tab) glimepiride (glimepiride 2 mg Tab) glucosamine (glucosamine hydrochloride 1500 mg oral tablet) hydrocortisone topical (hydrocortisone 2.5% Rectal Crm w/Appl) hydrocortisone topical (hydrocortisone Top 2.5% Crm) insulin aspart (Insulin Aspart FlexPen 100 units/mL injectable solution) insulin glargine (Basaglar KwikPen 100 units/mL subcutaneous solution) loperamide (Immodium A-D 2 mg Tab) magnesium hydroxide (Milk of Magnesia) memantine (memantine 10 mg Tab) multivitamin with minerals (PreserVision AREDS 2) nitroglycerin (nitroglycerin 0.4 mg sublingual Tab) nystatin topical (nystatin Top 100,000 units/g Crm 15 gram) ondansetron (ondansetron 4 mg Tab) oxybutynin (oxybutynin 15 mg ER Tab) polyethylene glycol 3350 potassium chloride (potassium chloride 20 mEq ER Tab) sodium chloride nasal (Saline Mist 0.65% nasal spray) venlafaxine (venlafaxine 150 mg Cap-ER) zinc oxide topical (zinc oxide Top 20% Oint) Procedures Performed Cardiac catheterization, Cataract, Colonoscopy, History of left knee replacement, History of right total knee replacement, ARYAN BSO - Total abdominal hysterectomy and bilateral salpingo-oophorect francisco. Discharge Vitals Blood Pressure 138/84 Height 160 cm Height 63 in Weight 138 kg Weight 303.6 lb BMI 53.91 What to do next Scheduled Follow-Up Appointments Saturday 10:15 AM EDT With: Kaushal JUDGE, Felix Lau Where: [facility] [place] [address] [place] [address]- \.br\ You Need to Schedule the Following Appointments\.br\ Follow Up with BRIGIDA WILLOUGHBY PA-C, URL When: \.br\ Where:\.br\ [address]\ [place] [address]\.br\ [id number]\.br\ Medications\.br\ What How Much When Why Instructions\.br\ Unchanged acetaminophen (acetaminophen 500 mg Tab) 2 Tablets By Mouth Every day Contact prescribing physician if questions or concerns \.br\ Unchanged acetaminophen-oxycodo ne (acetaminophen-oxycod one 325 mg-5 mg Tab) 1 Tablets By Mouth Every 6 hours as needed for pain Contact prescribing physician if questions or concerns \.br\ Unchanged acetaminophen-oxycodo ne (Percocet 5 mg-325 mg oral tablet) 1 Tablets By Mouth Every 6 hours as needed for pain Contact prescribing physician if questions or concerns \.br\ Unchanged alpha-lipoic acid (Alpha Lipoic Acid 600 mg oral capsule) 1 Capsules By Mouth Every day Contact prescribing physician if questions or concerns \.br\ Unchanged atorvastatin (atorvastatin 80 mg Tab) 1 Tablets By Mouth Every day Contact prescribing physician if questions or concerns \.br\ Unchanged biotin (biotin 10 mg oral tablet) 1 Tablets By Mouth 2 times a day Contact prescribing physician if questions or concerns \.br\ Unchanged calcium carbonate (Tums Chewy Bites 750 mg oral tablet, chewable) 2 Tablets Chewed At bedtime Contact prescribing physician if questions or concerns \.br\ Unchanged cetirizine (cetirizine 5 mg oral tablet) 1 Tablets By Mouth Every day Contact prescribing physician if questions or concerns \.br\ Unchanged cholecalciferol (Vitamin D3 1000 intl units (25 mcg) Tab) 1 Tablets By Mouth Every day Contact prescribing physician if questions or concerns \.br\ Unchanged clopidogrel (Plavix 75 mg Tab) 1 Tablets By Mouth Every day Contact prescribing physician if questions or concerns \.br\ Unchanged cranberry (Cranberry oral tablet) See instructions 450mg orally once a day Contact prescribing physician if questions or concerns \.br\ Unchanged cyanocobalamin (Vitamin B12 1000 mcg Tab) 1 Tablets By Mouth Every day Contact prescribing physician if questions or concerns \.br\ Unchanged docusate (Colace 100 mg Cap) 1 Capsules By Mouth Every day as needed for for constipation Contact prescribing physician if questions or concerns \.br\ Unchanged donepezil (donepezil 10 mg Tab) 1 Tablets By Mouth 2 times a day Contact prescribing physician if questions or concerns \.br\ Unchanged dulaglutide (Trulicity Pen 1.5 mg/ 0.5 mL subcutaneous solution) 1.5 Milligram Subcutaneous Every week Contact prescribing physician if questions or concerns \.br\ Unchanged famotidine (famotidine 20 mg Tab) 1 Tablets By Mouth Once a day (at bedtime) Contact prescribing physician if questions or concerns \.br\ Unchanged fluconazole (Diflucan 150 mg Tab) 1 Tablets By Mouth Once UTI (urinary tract infection) Contact prescribing physician if questions or concerns \.br\ Unchanged furosemide (furosemide 40 mg Tab) 1 Tablets By Mouth Every day Contact prescribing physician if questions or concerns \.br\ Unchanged gabapentin (gabapentin 600 mg Tab) 1 Tablets By Mouth 3 times a day Contact prescribing physician if questions or concerns \.br\ Unchanged glimepiride (glimepiride 2 mg Tab) 1 Tablets By Mouth Every day Contact prescribing physician if questions or concerns \.br\ Unchanged glucosamine (glucosamine hydrochloride 1500 mg oral tablet) See instructions 2 tab(s) Oral Daily at bedtime Contact prescribing physician if questions or concerns \.br\ Unchanged hydrocortisone topical (hydrocortisone 2.5% Rectal Crm w/ Appl) 1 Application By rectum 2 times a day us as needed Contact prescribing physician if questions or concerns \.br\ Unchanged hydrocortisone topical (hydrocortisone Top 2.5% Crm) See instructions apply rectally twice daily as needed for hemorrhoids Contact prescribing physician if questions or concerns \.br\ Unchanged insulin aspart (Insulin Aspart FlexPen 100 units/ mL injectable solution) See instructions test ac and hs and cover 150-200 42u, 210-250 4u, 251-300 6u, 301-350 8u, 351-400 10u, 401-1000 12u, Also inject 8u at lunch abd 10u at dinner regardless of readings and follow scale rest of time Contact prescribing physician if questions or concerns \.br\ Unchanged insulin glargine (Basaglar KwikPen 100 units/ mL subcutaneous solution) See instructions 30 unit(s) at bedtime Contact prescribing physician if questions or concerns \.br\ Unchanged loperamide (Immodium A-D 2 mg Tab) See instructions 1 tablet orally as neededafter each loose stool max 16 a day Contact prescribing physician if questions or concerns \.br\ Unchanged magnesium hydroxide (Milk of Magnesia) 2,400 Milligram By Mouth Every day as needed for constipation Contact prescribing physician if questions or concerns \.br\ Unchanged memantine (memantine 10 mg Tab) 1 Tablets By Mouth 2 times a day Contact prescribing physician if questions or concerns \.br\ Unchanged Misc Prescription (Freestyle Bang 2 sensors) See instructions Insulin dependent type 2 diabetes mellitus One box of sensors Contact prescribing physician if questions or concerns \.br\ Unchanged Misc Prescription (Freestyle Bang 2 system) See instructions Insulin dependent type 2 diabetes mellitus pt to check BS 4 times per day Contact prescribing physician if questions or concerns \.br\ Unchanged Misc Prescription (Home health physical therapy evaluatoin and treatment) See instructions Frequent falls Weakness Gait disturbance HH PT evaluation and treatment Contact prescribing physician if questions or concerns \.br\ Unchanged Misc Prescription (Misc DME Prescription) See instructions BD ultra fine pen needles 31G X 3/ 16. Use to inject insulin as directed. Dx E10.42 Contact prescribing physician if questions or concerns \.br\ Unchanged Misc Prescription (OT EVALUATION) See instructions Insulin dependent type 2 diabetes mellitus evaluate and treat better fitting wheel chair Contact prescribing physician if questions or concerns \.br\ Unchanged Misc Prescription (Physical therapy treat and evaluate, properly sized walker,) See instructions UTI (urinary tract infection) see above Contact prescribing physician if questions or concerns \.br\ Unchanged multivitamin with minerals (PreserVision AREDS 2) 1 Tablets Chewed Every day Contact prescribing physician if questions or concerns \.br\ Unchanged nitroglycerin (nitroglycerin 0.4 mg sublingual Tab) 1 Tablets Sublingual Every 5 minutes as needed for for chest pain Contact prescribing physician if questions or concerns \.br\ Unchanged nystatin topical (nystatin Top 100,000 units/ g Crm 15 gram) See instructions apply topically to affected area(s) per plan as needed Contact prescribing physician if questions or concerns \.br\ Unchanged ondansetron (ondansetron 4 mg Tab) 1 Tablets By Mouth Every 6 hours Contact prescribing physician if questions or concerns \.br\ Unchanged oxybutynin (oxybutynin 15 mg ER Tab) 1 Tablets By Mouth Every day do not crush Contact prescribing physician if questions or concerns \.br\ Unchanged polyethylene glycol 3350 17 Gram By Mouth Every day dissolve in 8ozs of water Contact prescribing physician if questions or concerns \.br\ Unchanged potassium chloride (potassium chloride 20 mEq ER Tab) 1 Tablets By Mouth Every day Contact prescribing physician if questions or concerns \.br\ Unchanged sodium chloride nasal (Saline Mist 0.65% nasal spray) See instructions 1 spray each nostril every shift, may self administer Contact prescribing physician if questions or concerns \.br\ Unchanged venlafaxine (venlafaxine 150 mg Cap-ER) 1 Capsules By Mouth Every day Contact prescribing physician if questions or concerns \.br\ Unchanged zinc [facility] Home Recordson 11-21 [facility] Records [id number]#[id number] Normal [facility] Home Records [id number]#[id number] Normal [facility] Patient Educationon 11-21-20 Patient Education Urology Urinary Incontinence Urinary incontinence refers to a condition in which a person is unable to control where and when to pass urine. A person with this condition will urinate involuntarily. This means that the person urinates when he or she does not mean to. What are the causes? This condition may be caused by: ? Medicines. ? Infections. ? Constipation. ? Overactive bladder muscles. ? Weak bladder muscles. ? Weak pelvic floor muscles. These muscles provide support for the bladder, intestine, and, in women, the uterus. ? Enlarged prostate in men. The prostate is a gland near the bladder. When it gets too big, it can pinch the urethra. With the urethra blocked, the bladder can weaken and lose the ability to empty properly. ? Surgery. ? Emotional factors, such as anxiety, stress, or post-traumatic stress disorder (PTSD). ? Spinal cord injury, nerve injury, or other neurological conditions. ? Pelvic organ prolapse. This happens in women when organs move out of place and into the vagina. This movement can prevent the bladder and urethra from working properly. What increases the risk? The following factors may make you more likely to develop this condition: ? Age. The older you are, the higher the risk. ? Obesity. ? Being physically inactive. ? and childbirth. ? Menopause. ? Diseases that affect the nerves or spinal cord. ? Long-term, or chronic, coughing. This can increase pressure on the bladder and pelvic floor muscles. What are the signs or symptoms? Symptoms may vary depending on the type of urinary incontinence you have. They include: ? A sudden urge to urinate, and passing urine involuntarily before you can get to a bathroom (urge incontinence). ? Suddenly passing urine when doing activities that force urine to pass, such as coughing, laughing, exercising, or sneezing (stress incontinence). ? Needing to urinate often but urinating only a small amount, or constantly dribbling urine (overflow incontinence). ? Urinating because you cannot get to the bathroom in time due to a physical disability, such as arthritis or injury, or due to a communication or thinking problem, such as Alzheimer's disease (functional incontinence). How is this diagnosed? This condition may be diagnosed based on: ? Your medical history. ? A physical exam. ? Tests, such as: ? Urine tests. ? X-rays of your kidney and bladder. ? Ultrasound. ? CT scan. ? Cystoscopy. In this procedure, a health care provider inserts a tube with a light and camera (cystoscope) through the urethra and into the bladder to check for problems. ? Urodynamic testing. These tests assess how well the bladder, urethra, and sphincter can store and release urine. There are different types of urodynamic tests, and they vary depending on what the test is measuring. To help diagnose your condition, your health care provider may recommend that you keep a log of when you urinate and how much you urinate. How is this treated? Treatment for this condition depends on the type of incontinence that you have and its cause. Treatment may include: ? Lifestyle changes, such as: ? Quitting smoking. ? Maintaining a healthy weight. ? Staying active. Try to get 150 minutes of moderate-intensity exercise every week. Ask your health care provider which activities are safe for you. ? Eating a healthy diet. ? Avoid high-fat foods, like fried foods. ? Avoid refined carbohydrates like white bread and white rice. ? Limit how much alcohol and caffeine you drink. ? Increase your fiber intake. Healthy sources of fiber include beans, whole grains, and fresh fruits and vegetables. ? Behavioral changes, such as: ? Pelvic floor muscle exercises. ? Bladder training, such as lengthening the amount of time between bathroom breaks, or using the bathroom at regular intervals. ? Using techniques to suppress bladder urges. This can include distraction techniques or controlled breathing exercises. ? Medicines, such as: ? Medicines to relax the bladder muscles and prevent bladder spasms. ? Medicines to help slow or prevent the growth of a man's prostate. ? Botox injections. These can help relax the bladder muscles. ? Treatments, such as: ? Using pulses of electricity to help change bladder reflexes (electrical nerve stimulation). ? For women, using a medical collections specialist to prevent urine leaks. This is a small, tampon-like, disposable device that is inserted into the urethra. ? Injecting collagen or carbon beads (bulking agents) into the urinary sphincter. These can help thicken tissue and close the bladder opening. ? Surgery. Follow these instructions at home: Lifestyle ? Limit alcohol and caffeine. These can fill your bladder quickly and irritate it. ? Keep yourself clean to help prevent odors and skin damage. Ask your health care provider about special skin creams and cleansers that can protect the skin from urine. ? (more content not included)... 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 Referral per Chip Mcmullen due to urinary incontinence. BUN 24, Creatinine 1.5 done 10/01/23 -[facility]. Daughter is with her today Never been in our office before Last UTI Beginning of summer [facility] is where she is staying right now PVR 100 Dysuria: sometimes started Since December or January off and on since Incomplete bladder emptying: not sure Hematuria: _denies visible blood- Spring was the last time blood was noticed Frequency: every few hours Urgency: all the time Nocturia: denies Stream: yes hesitation, weaker stream Leaking: denies Post void dripping: yes Wearing pads/ Depends: Depends and pads wore daily, 40 pads a week has to be changed and Depends a whole pack Urge incontinence: yes Stress incontinence: yes Incontinence without Sensory Awareness: yes Abdominal pain: right side pain, started in Dec and Jan Flank pain: denies Sexual complaints: denies History of Present Illness staff HPI reviewed and agree. Review of Systems PHQ Score Initial Depression Screen Score: 0 SCORE no fever, chills, malaise, myalgia. no rash/lesions. no chest pain, palpitations, or SOB. no abdominal pain, nausea, vomiting. 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 Pt is here with her daughter (POA) today. Currently resides at [facility] [address]. Ambulates via wheelchair. Renal fxn: 10/01/23 - BUN 24, Cr 1.5, eGFR 37 1. Mixed incontinence (N39.46: Mixed incontinence) UUI >> JUAN MANUEL. Urinary sxs have been worsening over the past few years. Wears depends and pads daily, changes 40 pads per week and uses a pack of depends per week. Drinks a few water bottles per day. PVR today 100cc. Unable to hold her urine at all. Leaks when she stands and any time she has urge to void. Has some constipation and is taking MiraLAX per PCP. Discussed bladder/bowel connection. Advised pt to discuss BMs with PCP. Taking Oxybutynin ER 15mg qd per PCP. Pt is on memantine for dementia. Explained anticholinergics can worsen confusion. Recommended to dc this. Pt/daughter agree. Can also cause dry eyes, dry mouth, and constipation. Pt experiencing dry eyes and constipation. Advised pt to stop this due to SEs and no sx improvement. Discussed alternative medication class to help improve urinary sxs. Pt would like to proceed w either Myrbetriq or Gemtesa, whichever is covered by her insurance. We will try to get Myrbetriq covered since it's older, hopefully better chance of coverage. Discussed the medication side effects, and the patient will monitor closely for these, as well as for symptom improvement. If severe side effects occur, the medication should be stopped and the office notified. -D/c Oxybutynin -Start Myrbetriq 50mg qd. Rx sent to pt's [facility]. If unable to get covered by insurance, pt to call our office to discuss other med options. -Avoid bladder irritants and control BMs. Educational pamphlets provided. Ordered: [id number] Measure Post Void residual urine and/or bladder capacity by US- non-imaging Urnls Dip Stick Auto w/o Microscopy POC 82055 2. Urethral stricture (N35.919: Unspecified urethral stricture, male, unspecified site) suspect stricture due to hesitation and weaker stream + hx recurrent UTIs. discussed cysto w possible UD. could help w flow, incontinence, and UTIs. Will schedule Cysto with UD. The procedure risks, benefits, details, and treatment alternatives have been discussed with the patient. These include bleeding, infection, recurrent scar in over 50%, need for repeat dilation or other procedures, no symptom relief with dilation, among others. Full informed consent has been obtained. Will order Local anesthesia. 3. UTI (urinary tract infection) (N39.0: Urinary tract infection, site not specified) Had 2 UTIs in July with hematuria. Also saw blood in Spring w UTI. Taking cranberry pills. Uses fem spray to help with odor. Advised pt not to apply any scented products. UA today negative for infection. Currently asx. Discussed possibility of starting Estrace cream to help with UTI prevention. Does have hx of uterine ca so will not utilize this. -Cont cranberry pills. Consider adding probiotics/d-james se OTC if available. -see #2 Ordered: [id number] Measure Post Void residual urine and/or bladder capacity by US- non-imaging Urnls Dip Stick Auto w/o Microscopy POC 80150 4. 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 Normal [facility] Comment on above: Result Comment: Elec tronically Signed By: BRIGIDA WILLOUGHBY PA-C\.br\Date and Time Signed: 11/21/23 12:19 EST\.br\Electronically Co-Signed By: More Traylor\.br\Date and Time Co-Signed: 11/21/23 11:43 EST Family Medicine Office/Clini c Noteon 11-20-2023 Family Medicine Office/Clinic Note HPI Staff Malcom is a 68 year old female presenting for medication review Have her MARS which need signed off by the provider Do you have any of the following symptoms? Foot Exam: none Eye Exam: UTD Last A1C: 9.0 w/ endo in Sep. Statin: atorvastatin 80mg Dr Zhu follows her for DM flu: contraindicated due to guillain barre questions/concerns : has fallen 5 times in the last 2 weeks, most recent today and daughter is supposed to discuss this with you per the home. Main reason is that she won't use her walker to go get something and she walks on her own and falls and then can't get up won't use her call button. says she doesn't want to bother them and we both told her that's their job. History of Present Illness Malcom Knowles is a 68-year-old female who presents for a 3-month follow-up and medication review. The patient is accompanied by an adult female. The patient received communication from the home health care social worker, however, the home health care social worker was uncertain about her responsibilities. The patient's weight loss was not initially monitored. Despite Don's report of a 20-pound loss, current records indicate a 20-pound increase to 305 pounds. The reason for this discrepancy is unclear. The patient asserts that she attempted weight loss by reducing her food intake. She underwent physical therapy, but the home health staff's interventions were limited to ambulation to the dining room and back. No further therapeutic activities were continued after their departure due to the patient's discomfort and unwillingness. The patient is under the care of an mixed crop farmer. Her glycemic levels have decreased. The next appointment with the mixed crop farmer is scheduled after a consultation with Dr. Zhu on 12/16/2023 for a 3-month follow-up. She is also under the care of an nurse wound, an diffuser operator, and a retina specialist due to an unspecified ocular condition. Dr. Loredo has diagnosed her with neuropathy and is contemplating if this could be contributing to her current condition. The patient's fluctuating diabetes is suspected to be impacting her overall health, and efforts are being made to understand this. The patient appears to be experiencing depressive symptoms, raising questions about the need to adjust her antidepressant medication. She frequently feels unwell, exhibits reduced motivation, and sometimes does not want to get out of bed. She has been observed to walk without her walker, leading to falls, which she dismisses lightly. Her care level has fluctuated between level 3 and 6, and she is currently at level 5. She has previously expressed satisfaction with the [facility] environment. She only receives Tylenol with her morning medication. She requests medication for gastroesophageal reflux disease every evening but also experiences constipation, possibly due to the calcium supplement she receives every evening. Consequently, she requires medication to regulate her bowel movements. This situation underscores the role of assisted living facilities in supporting residents' autonomy while providing necessary care. The patient has an appointment scheduled with a neurologist tomorrow, 11/21/2023. This will be her first consultation with a neurologist to further investigate and understand her condition. Review of Systems PHQ Score Initial Depression Screen Score: 2 SCORE Physical Exam Vitals & Measurements T: 36.1 ?C(Temporal Artery) HR: 66(Peripheral) RR: 16 BP: 126/84 SpO2: 100% HT: 62 in HT: 158.0 cm WT: 138.8 kg WT: 305.36 lb BMI: 55.6 General: alert, no acute distress. Morbidly obese, wheelchair bound. ENMT: oral mucosa moist, no pharyngeal erythema or exudate Cardiovascular: regular rate and rhythm, normal peripheral perfusion Respiratory: Lungs CTA, respirations non labored Extremities: no deformity, no trauma Neurological: oriented x 4, LOC appropriate for age, CN II-XII intact, motor strength equal & normal bilaterally, speech normal Gastrointestinal: Abdomen soft, non-tender, non-distended. Assessment/Plan Total time spent preparing for the encounter, evaluating and assessing the patient, documenting the visit, and ordering appropriate follow-up work was 50 minutes. 1. Major depressive disorder with single episode, in full remission (F32.5: Major depressive disorder, single episode, in full remission) I am unsure if this is actually the appropriate diagnosis for the patient. There may be some psychosis versus issues with dementia versus personality disorder that I an having a hard time understanding and treating. The patient is denying urine test. The patient is denying depression and scoring only as a 2. She also complains of 9 out of 10 pain, but does not complain about pain at all during the visit. Struggling to understand where exactly the patient fits with concerns for motivation and to help herself. 2. Primary hypertension (I10: Essential (primary) hypertension) The patient's blood pressure is at goal. No other con (more content not included)... Normal [facility] Comment on above: Result Comment: Elec tronically Signed By: Felix Easley MD\.br\Date and Time Signed: 11/20/23 17:33 EST\.br\Electronically Co-Signed By: Rebekah Ferraro\.br\Date and Time Co-Signed: 11/20/23 17:13 EST RAD - CT Reporton 11-11-2023 RAD - CT Report [id number]#1.00TIFF Normal [facility] RAD - CT Report [id number]#1.00TIFF [facility] RAD - MRI Reporton 3 RAD - MRI Report [id number]#1.00TIFF [facility] RAD - Ultrasound Reporton RAD - Ultrasound Report [id number]#1.00TIFF [facility] Chcf Recordson 11-07 [facility] Records [id number]#1.00TIFF [facility] Home Health Recordson 2022 Home Health Records [id number]#1.00TIFF [facility] Home Health Recordson 2022 Home Health Records [id number]#1.00TIFF [facility] Outside Mammographyon 2022 Outside Mammography [id number] [id number]#1.00TIFF [facility] Chcf Recordson 10-28 Ch[facility] Records [id number] 114#1.00TIFF [facility] Interdisciplinary Note - Soc ial Workeron 10-16-2023 Interdisciplinary Note - Drug Inspector This SW received a message regarding placement for patient at [facility] and daughter having questions. This SW made tc to francois's daughter and apologized for the delayed response. [...] that fantasma can stay in her current [place] apartment and that she does not have to move her to . SW's direct line was provided and SW encouraged her to reach out should she have needs or questions. SW will remain available. [facility] Home Health Recordson 2022 Home Health Records [id number]#1.00TIFF Normal [facility] Auto Diffon 10-01-2023 Basophils/100 WBC (Bld) 1.0 % Normal 0.0-2.0 [facility] Comment on above: Order Comment: Order Added by Discern Expert. Performed By: #### 2 239224, [id number], 4000606, 0002724, 2789755, 47971986 #### [facility] [address] [place] [address] Basophils/Leukocyt es Auto (Bld) [Pure # fraction] 0.1 E9/L Normal 0.0-0.2 [facility] Comment on above: Order Comment: Order Added by Discern Expert. Performed By: #### 2 148566, 256102561, 5555845, 4648043, 7464416, 55144504 #### [facility] [address] [place] [address] Eosinophils/100 WBC (Bld) 5.3 % Normal 0.0-8.0 [facility] Comment on above: Order Comment: Order Added by Discern Expert. Performed By: #### 2 579675, 360880447, 8086450, 9639794, 0148842, 54070247 #### [facility] [address] [place] [address] Eosinophils/Leukoc ytes Auto (Bld) [Pure # fraction] 0.3 E9/L Normal 0.0-0.5 [facility] Comment on above: Order Comment: Order Added by Discern Expert. Performed By: #### 2 806894, 509546648, 2759135, 8739395, 1836973, 89603507 #### [facility] [address] [place] [address] Lymphocytes/100 WBC (Bld) 37.2 % Normal 14.0-50.0 [facility] Comment on above: Order Comment: Order Added by Discern Expert. Performed By: #### 2 615339, 331243062, 0828637, 0332916, 9379773, 60097276 #### [facility] [address] [place] [address] Lymphocytes/Leukoc ytes Auto (Bld) [Pure # fraction] 2.0 E9/L Normal 1.0-4.0 [facility] Comment on above: Order Comment: Order Added by Discern Expert. Performed By: #### 2 354780, 331002268, 6054935, 2410345, 3661390, 86366508 #### [facility] [address] [place] [address] Monocytes/100 WBC (Bld) 10.7 % Normal 4.0-14.0 [facility] Comment on above: Order Comment: Order Added by Discern Expert. Performed By: #### 2 452406, 309948677, 8800095, 4238009, 0970761, 74791039 #### [facility] [address] [place] [address] Monocytes/Leukocyt es Auto (Bld) [Pure # fraction] 0.6 E9/L Normal 0.2-1.0 [facility] Comment on above: Order Comment: Order Added by Discern Expert. Performed By: #### 2 470799, 954126633, 6164925, 0447918, 2187232, 37101328 #### [facility] [address] [place] [address] Neutrophils/100 WBC (Bld) 45.8 % Normal 36.0-75.0 [facility] Comment on above: Order Comment: Order Added by Discern Expert. Performed By: #### 2 051196, 074116540, 3136573, 5606944, 4101467, 08472020 #### [facility] [address] [place] [address] Neutrophils/Leukoc ytes Auto (Bld) [Pure # fraction] 2.5 E9/L Normal 2.0-7.5 [facility] Comment on above: Order Comment: Order Added by Discern Expert. Performed By: #### 2 639692, 868695163, 6201474, 7869193, 3357371, 44426247 #### [facility] [address] [place] [address] CBC w/ Auto Diffon 3 Erythrocyte distribution width (RBC) [Ratio] 15.1 % High 10.9-14.2 [facility] Comment on above: Performed By: #### 2 855501, 349965675, 2727739, 3583756, 4080281, 35430013 #### [facility] [address] [place] [address] Hematocrit (Bld) [Volume fraction] 39.1 % Normal 34.0-46.0 [facility] Comment on above: Performed By: #### 2 973820, 641953593, 9431344, 6050220, 6077193, 28226311 #### [facility] [address] [place] [address] Hemoglobin (Bld) [Mass/Vol] 13.1 g/dL Normal 12.0-16.0 [facility] Comment on above: Performed By: #### 2 208240, 690375908, 2841746, 2676764, 2623315, 67106516 #### [facility] [address] [place] [address] 28384 MCH (RBC) [Entitic mass] 30.8 pg Normal 27.0-34.0 [facility] Comment on above: Performed By: #### 2 259046, 935668223, 2958505, 8160364, 1875908, 10728551 #### [facility] [address] [place] [address] MCHC (RBC) [Mass/Vol] 33.5 g/dL Normal 31.4-36.0 [facility] Comment on above: Performed By: #### 2 065550, 650838077, 2499225, 4618364, 4717584, 64090630 #### [facility] [address] [place] [address] MCV (RBC) [Entitic vol] 92.0 fL Normal 80.0-100.0 [facility] Comment on above: Performed By: #### 2 623794, 125807322, 9670558, 6226280, 4343851, 63146923 #### [facility] [address] [place] [address] Platelet mean volume (Bld) [Entitic vol] 9.2 fL Normal 6.4-10.8 [facility] Comment on above: Performed By: #### 2 963257, 692691429, 3279175, 1176453, 1618876, 27153197 #### [facility] [address] [place] [address] Platelets (Bld) [#/Vol] 205.0 E9/L Normal 150.0-500.0 [facility] Comment on above: Performed By: #### 2 709468, 313662623, 0742513, 6329729, 6848232, 86529860 #### [facility] [address] [address]83257 RBC (Bld) [#/Vol] 4.2 E12/L Low 4.3-5.9 [facility] Comment on above: Performed By: #### 2 995376, 221993746, 8395110, 5860276, 0884434, 52210187 #### [facility] [address] [place] [address] WBC corrected for nucl RBC Auto (Bld) [#/Vol] 5.4 E9/L Normal 4.0-11.0 [facility] Comment on above: Performed By: #### 2 280161, 469416721, 7222754, 1766550, 4823107, 80219253 #### [facility] [address] [place] [address] CHEMISTRYOrdered By: Peace guillaume on 10-01-2023 Albumin DL <= 20 mg/L (U) [Mass/Vol] 9.9 microgram/mL Normal 0.0 - 19.0 mcg/mL [facility] Albumin Elph (U) [Mass fraction] mg/dL Invalid Interpretation Code [facility] Comment on above: Interpretive Data: T he reference range and other method performance specifications have not been established for this test; results should be integrated into the clinical context for interpretation. Creatinine (U) [Mass/Vol] 28.4 mg/dL Invalid Interpretation Code [facility] Comment on above: Interpretive Data: T he reference range and other method performance specifications have not been established for this test; results should be integrated into the clinical context for interpretation. U Prot/Creat Ratio [facility] Invalid Interpretation Code 0.00 - 200.00 [facility] CHEMISTRYOrdered By: SYSTEM SYSTEM on 10-01-2023 Albumin [Mass/Vol] 3.8 g/dL Normal 3.3 - 5.0 gm/dL [facility] Remisol Albumin/Globulin [Mass ratio] 1.1 {ratio} Normal 1.1 - 2.2 [facility] ALP [Catalytic activity/Vol] 61 [iU]/d Normal 21 - 98 Int._Unit/L [facility] ALT No additional P-5'-P [Catalytic activity/Vol] 26 [iU]/d Normal 6 - 46 Int._Unit/L [facility] Anion gap [Moles/Vol] 10 mmol/L Normal 6 - 16 mEq/L [facility] AST [Catalytic activity/Vol] 31 [iU]/d Normal 5 - 43 Int._Unit/L [facility] Bilirubin [Mass/Vol] 1.1 mg/dL Normal 0.0 - 1.1 mg/dL [facility] Calcium [Mass/Vol] 9.4 mg/dL Normal 8.9 - 11.1 mg/dL [facility] Chloride [Moles/Vol] 104 mmol/L Normal 101 - 111 mmol/L [facility] Cholesterol [Mass/Vol] 127 mg/dL Normal 120 - 200 mg/dL [facility] Cholesterol in HDL [Mass/Vol] 58 mg/dL Invalid Interpretation Code [facility] Comment on above: Interpretive Data: H DL > or equal to 60 mg/dL: Low cardiovascular risk HDL < 40 mg/dL : High cardiovascular risk Cholesterol in LDL [Mass/Vol] 58 mg/dL Normal <=129mg/dL [facility] Cholesterol in VLDL [Mass/Vol] 15 mg/dL Normal 7 - 40 mg/dL [facility] Remisol CO2 [Moles/Vol] 30 mmol/L Normal 21 - 31 mmol/L [facility] Remisol Creatinine [Mass/Vol] 1.5 mg/dL High 0.5 - 1.3 mg/dL [facility] Remisol GFR/1.73 sq M.predicted among non-blacks MDRD (S/P/Bld) [Vol rate/Area] 37 mL/min/1.73 m2 Low >=59mL/min/1.73 m2 [facility] Chem S Comment on above: Interpretive Data: C hronic kidney disease could be indicated at eGFR's of less than 60 mL/min/1.73m2. Kidney failure is indicated at less than 15 mL/min/1.73m2. Globulin (S) [Mass/Vol] 3.6 g/dL Normal 1.4 - 4.0 gm/dL [facility] Remisol Glucose [Mass/Vol] 176 mg/dL Normal 55 - 199 mg/dL [facility] Comment on above: Interpretive Data: I f this glucose result represents a fasting glucose, interpretation should refer to the following reference range: 55-99 mg/dL Potassium [Moles/Vol] 3.7 mmol/L Normal 3.5 - 5.3 mmol/L [facility] Remisol Protein [Mass/Vol] 7.4 g/dL Normal 6.0 - 7.8 gm/dL [facility] Remisol Sodium [Moles/Vol] 140 mmol/L Normal 135 [...] 10-01-2023 Albumin [Mass/Vol] 3.8 g/dL Normal 3.3-5.0 [facility] Comment on above: Performed By: #### 2 004077, 936884420, 1902491, 5290605, 2084510, 05989301 ####[facility] [address] [place] [address] Albumin/Globulin (S) [Mass conc ratio] 1.1 Normal 1.1-2.2 [facility] Comment on above: Performed By: #### 2 214603, 380528867, 3456433, 8167550, 3230431, 23561844 ####[facility] [address] [place] [address] ALP [Catalytic activity/Vol] 61 Int._Unit/L Normal 21-98 [facility] Comment on above: Performed By: #### 2 170313, 846334083, 6885358, 8549370, 7822648, 12448431 ####[address] [address] ALT No additional P-5'-P [Catalytic activity/Vol] 26 Int._Unit/L Normal 6-46 [facility] Comment on above: Performed By: #### 2 058139, 664010453, 3191368, 5993141, 6797593, 74356901 ####[address] [place] [address] Anion gap [Moles/Vol] 10 mmol/L Normal 6-16 [facility] Comment on above: Performed By: #### 2 128234, 651213702, 8548344, 3710539, 5742878, 83912876 ####[facility] [address] [place] [address] AST [Catalytic activity/Vol] 31 Int._Unit/L Normal 5-43 [facility] Comment on above: Performed By: #### 2 619499, 050499331, 0249099, 4284756, 9341705, 39963805 ####[facility] [address] [place] [address] Bilirubin [Mass/Vol] 1.1 mg/dL Normal 0.0-1.1 [facility] Comment on above: Performed By: #### 2 967197, 219172936, 1935590, 1682522, 7583927, 27972326 ####[facility] [address] [place] [address] Calcium [Mass/Vol] 9.4 mg/dL Normal 8.9-11.1 [facility] Comment on above: Performed By: #### 2 356864, 880938987, 9204901, 9530128, 8484602, 49103091 ####[facility] [address] [place] [address] Chloride [Moles/Vol] 104 mmol/L Normal 101-111 [facility] Comment on above: Performed By: #### 2 613238, 331547619, 5506069, 8258068, 6170261, 35479034 ####[facility] [address] [place] [address] CO2 [Moles/Vol] 30 mmol/L Normal 21-31 [facility] Comment on above: Performed By: #### 2 333402, 883877080, 8276931, 3589630, 4741444, 30905168 ####[facility] [address] [place] [address] Creatinine [Mass/Vol] 1.5 mg/dL High 0.5-1.3 [facility] Comment on above: Performed By: #### 2 209428, 898314372, 6246124, 7425894, 5929137, 16733108 ####[facility] [address] [place] [address] Globulin (S) [Mass/Vol] 3.6 g/dL Normal 1.4-4.0 [facility] Comment on above: Performed By: #### 2 991722, 557887668, 6076670, 8966365, 9152969, 93403461 ####[facility] [address] [place] [address] Glucose [Mass/Vol] 176 mg/dL Normal 55-199 [facility] Comment on above: Result Comment: If t his glucose result represents a fasting glucose, interpretation should refer to the following reference range: 55-99 mg/dL Performed By: #### 2 280950, 637926692, 0304881, 7047239, 0727846, 00315676 ####[facility] [address] [place] [address] Potassium [Moles/Vol] 3.7 mmol/L Normal 3.5-5.3 [facility] Comment on above: Performed By: #### 2 457750, 762850865, 5734877, 8216340, 7069714, 38294303 ####[facility] [address] [place] [address] Protein [Mass/Vol] 7.4 g/dL Normal 6.0-7.8 [facility] Comment on above: Performed By: #### 2 614303, 379358832, 3119810, 9018323, 3378238, 87705641 ####[facility] [address] [place] [address] Sodium [Moles/Vol] 140 mmol/L Normal 135-145 [facility] Comment on above: Performed By: #### 2 701476, 904422384, 0879652, 8308851, 3819255, 75173602 ####[facility] [address] [place] [address] Urea nitrogen [Mass/Vol] 24 mg/dL High 5-21 [facility] Comment on above: Performed By: #### 2 433136, 841075952, 0987125, 5193102, 9692166, 06449564 ####[facility] [address] [place] [address] Urea nitrogen/Creatinin e [Mass ratio] 16 No Units Normal 10-20 [facility] Comment on above: Performed By: #### 2 236334, 583284733, 2057049, 8085090, 1794648, 33803809 ####[facility] [address] [place] [address] Consent for Treatmenton 10- Consent for Treatment [id number]#1.00TIFF Normal [facility] HEMATOLOGYOrdered By: SYSTEM SYSTEM on 10-01-2023 [...] 0.6 E9/L Normal 0.2 - 1.0 E9/L [facility] HemeAutoSS Neutrophils/100 WBC (Bld) 45.8 % Normal 36.0 - 75.0 % [facility] HemeAutoSS Neutrophils/Leukoc ytes Auto (Bld) [Pure # fraction] 2.5 E9/L Normal 2.0 - 7.5 E9/L [facility] HemeAutoSS HEMATOLOGYOrdered By: Yamilet alas on 10-01-2023 Erythrocyte distribution width (RBC) [Ratio] 15.1 % High 10.9 - 14.2 % [facility] HemeAutoSS Hematocrit (Bld) [Volume fraction] 39.1 % Normal 34.0 - 46.0 % [facility] HemeAutoSS Hemoglobin (Bld) [Mass/Vol] 13.1 g/dL Normal 12.0 - 16.0 gm/dL [facility] HemeAutoSS MCH (RBC) [Entitic mass] 30.8 pg Normal 27.0 - 34.0 pg [facility] HemeAutoSS MCHC (RBC) [Mass/Vol] 33.5 g/dL Normal 31.4 - 36.0 gm/dL [facility] HemeAutoSS MCV (RBC) [Entitic vol] 92.0 fL Normal 80.0 - 100.0 fL [facility] HemeAutoSS Platelet mean volume (Bld) [Entitic vol] 9.2 fL Normal 6.4 - 10.8 fL [facility] HemeAutoSS Platelets (Bld) [#/Vol] 205.0 E9/L Normal 150.0 - 500.0 E9/L [facility] HemeAutoSS RBC (Bld) [#/Vol] 4.2 E12/L Low 4.3 - 5.9 E12/L [facility] HemeAutoSS WBC corrected for nucl RBC Auto (Bld) [#/Vol] 5.4 E9/L Normal 4.0 - 11.0 E9/L [facility] HemeAutoSS KkhO8hjv 10-01-2023 HbA1c (Bld) [Mass fraction] 8.2 % High <=5.9 [facility] Comment on above: Performed By: #### 2 932951, 644722450, 4134578, 0471108, 4981276, 99415926 ####[facility] [address] [place] [address] Lipid Panelon 10-01-2023 Cholesterol [Mass/Vol] 127 mg/dL Normal 120-200 [facility] Comment on above: Performed By: #### 2 038268, 362705398, 3350531, 3761496, 7273676, 05656700 ####[facility] [address] [place] [address] Cholesterol in HDL [Mass/Vol] 58 mg/dL Invalid Interpretation Code [facility] Comment on above: Result Comment: HDL > or equal to 60 mg/dL: Low cardiovascular risk HDL < 40 mg/dL : High cardiovascular risk Performed By: #### 2 838721, 305250461, 9513579, 4634549, 0683065, 22802008 ####[facility] [address] [place] [address] Cholesterol in LDL [Mass/Vol] 58 mg/dL Normal <=129 [facility] Comment on above: Performed By: #### 2 892234, 129106715, 9856248, 0451152, 7009016, 80078317 ####[facility] [address] [place] [address] Cholesterol in VLDL [Mass/Vol] 15 mg/dL Normal 7-40 [facility] Comment on above: Performed By: #### 2 285046, 017993607, 4264256, 0320457, 1200134, 79712245 ####[facility] [address] [place] [address] Triglyceride [Mass/Vol] 77 mg/dL Normal <=149 [facility] Comment on above: Performed By: #### 2 098649, 950693074, 1724513, 2507969, 9968303, 39855986 ####[facility] [address] [place] [address] Retail - Clinical Noteon Retail - Clinical Note [id number] 4633#1.00TIFF Normal [facility] U Microalbon 10-01-2023 Albumin DL <= 20 mg/L (U) [Mass/Vol] 9.9 microgram/mL Normal 0.0-19.0 [facility] Comment on above: Performed By: #### 1 [id number], 79431590 ####[facility] [address] [place] [address] U Protein/Creat Ratioon 09-03 Albumin Elph (U) [Mass fraction] <6.0 Invalid Interpretation Code [facility] Comment on above: Result Comment: The reference range and other method performance specifications have not been established for this test; results should be integrated into the clinical context for interpretation. Performed By: #### 1 [id number], 09545423 ####[facility] [address] [place] [address] Creatinine (U) [Mass/Vol] 28.4 mg/dL Invalid Interpretation Code [facility] Comment on above: Result Comment: The reference range and other method performance specifications have not been established for this test; results should be integrated into the clinical context for interpretation. Performed By: #### 1 519521516, 80764034 ####[facility] [address] [place] [address] U Prot/Creat Ratio [facility] Invalid Interpretation Code .00-200.00 [facility] Comment on above: Performed By: #### 1 097724685, 55580583 ####[facility] [address] [place] [address] eGFRon 10-01-2023 GFR/1.73 sq M.predicted among non-blacks MDRD (S/P/Bld) [Vol rate/Area] 37 mL/min/1.73 m2 Low >=59 [facility] Comment on above: Order Comment: Order added by Discern Expert. Result Comment: [employer] Captain maco kidney disease could be indicated at eGFR's of less than 60 mL/min/1.73m2. Kidney failure is indicated at less than 15 mL/min/1.73m2. Performed By: #### 2 488112, 502651825, 1028311, 6294896, 9971013, 91167361 ####[facility] [address] [place] [address] Interdisciplinary Note - Soc ial Workeron 09-23-2023 Interdisciplinary Note - Drug Inspector Consult received d/t pt's dx of DM. Patient requires bariatric equipment. Upon review of chart notes, patient resides at [facility]. Patient has been evaluated by [facility] for an appropriate wheelchair. If further needs, or DME are required conversation with staff at [facility] should be had for appropriate planning and continuity of care. SW will remain available. Normal [facility] Retail - Clinical Noteon Retail - Clinical Note [id number]#1.00TIFF Normal [facility] Consultation Noteon 09-18-20 Consultation Note [id number]#1.00TIFF Normal [facility] Family Medicine Office/Clini c Noteon 09-17-2023 Family Medicine Office/Clinic Note HPI Staff Malcom is a 67 year old female [facility] to face for a [...] was in an assisted living facility in [place] where she received intensive physical therapy. However, [...] to 6500 g a month and other fxsj-kqx-bnetbxi medications. However, the daughter states that this is not sustainable and is considering finding a cheaper living arrangement or moving the patient to a mcc. She has expressed interest in losing weight. [...] as before. 4. 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 Zhu adjust the medication. 5. BMI 50.0-59.9, adult (Z68.43: Body mass index [BMI] 50.0-59.9, adult) 6. Morbid obesi (more content not included)... Normal [facility] Comment on above: Result Comment: Elec tronically Signed By: Felix Easley MD\.br\Date and Time Signed: 09/17/23 07:26 EDT\.br\Electronically Co-Signed By: Romana Crouch\.br\Date and Time Co-Signed: 09/09/23 18:25 EDT [facility] Record[facility] 09-11 [facility] Records [id number]#1.00TIFF [facility] Ambulatory Visit Summaryon 1 Ambulatory Visit Summary SARBJITMALCOM CUMMINGS :1955 Visit Date:09/09/2023 Ambulatory Visit Instructions Your Diagnosis Type 2 diabetes mellitus with chronic kidney disease Type 2 diabetes mellitus with hypercholesterolem ia Benign hypertension with chronic kidney disease Insulin long-term use BMI 50.0-59.9, adult Morbid obesity Major depression in full remission CKD (chronic kidney disease) stage 3, GFR 30-59 ml/min 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 Easley, *Based on your response below, [...] feel free to contact me at extension [phone]. Thank you! Luann Lazo, DENYS, RN, CCM, CCDS, CCDS-O Invalid Interpretation Code [address] [facility] Pre-Visit Planning --- From: Luann Lazo RN To: Felix Easley MD; Sent: 09/06/2023 10:30:41 EDT Subject: Pre-Visit Planning Due Date/Time: 09/06/2023 10:30:00 EDT Caller Name: MALCOM KNOWLES; Caller Number: Shawn , M Hi Dr. Easley, *Based on your response below, can you please update the chronic problem list and address during this visit if appropriate?* During a pre-visit planning chart review, I noted the following documentation in the medical record indicates that this patient had a BMI of 52.32 on 07/15/2023. The National [place] of [employer] defines obesity as morbid if [...] feel free to contact me at extension [phone]. Thank you! Luann Lazo, SHAHANAN, RN, CCM, CCDS, CCDS-O Invalid Interpretation Code [address] [facility] Record[facility] 09-04 [facility] Records [id number]#1.00CD:127 Normal [facility] Record[facility] 09-03 [facility] Records [id number]#1.00CD:127 Normal [facility] 09-02 [facility] Records [id number]#1.00CD:127 Normal [facility] Family Medicine Office/Clini c Noteon 09-22-2023 Family Medicine Office/Clinic Note HPI Staff Malcom [...] basaglar to 12 untis. will refer to mixed crop farmer. 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 [facility] Comment on above: Result Comment: Elec tronically Signed By: Mariangel Peña\.br\Date and Time Signed: 08/23/23 09:36 EDT [facility] 08-21 [facility] [id number]#1.00CD:127 [facility] Record[facility] 08-20 [facility] Records [id number]#1.00CD:127 [facility] Record[facility] 08-15 [facility] Records [id number]#1.00CD:127 [facility] Retail - Clinical Noteon Retail - Clinical Note [id number]#1.00CD:127 [facility] Urine Cultureon 07-28-2023 Bacteria identified Cx Nom (U) <9,000 colonies/ml mixed bacterial skin contaminants 2 Days PERFORMED BY: [place] [address] PATHOLOGIST DIRECTOR OF INTERCOLLEGIATE ATHLETICS SUZY FLORES M.D. [facility] Comment on above: Performed By: #### C UU #### [address] Physician Referralon 08-23-2 023 Physician Referral [id number]#1.00CD:127 [facility] Record[facility] 07-23 [facility] Records [id number]#1.00CD:127 [facility] 07-18 [facility] Records [id number]#1.00CD:127 [facility] Records [id number]#1.00CD:127 [facility] Retail - Clinical Noteon Retail - Clinical Note [id number]#1.00CD:127 [facility] Record[facility] 07-16 [facility] Records [id number]#1.00CD:127 [facility] Physician Referralon 023 Physician Referral [id number]. 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#1.00CD:127 Normal [facility] XR shoulder LT min 2V*on XR shoulder LT min 2V* [place] [id number] XRay Report Signed Patient: Malcom Knowles MR#: [id number] : 1955 Acct:[id number] Age/Sex: 67 / F ADM Date: 07/01/23 Loc: [facility] Room: Type: [facility] Attending Dr: Lizandro Martins MD Copies to: [...] Aj Baker M.D.07/01/2023 2:36 PM Dictation Location: [place] [address] Transcribed By: [facility] 07/01/23 1436 Dictated By: Aj Baker II, MD 07/01/23 1434 Signed By: 07/01/23 1436 [facility] XR shoulder LT min 2V* [facility] appbackr Other XR shoulder LT min 2V* [facility] appbackr Other XR shoulder LT min 2V* [address] [place] [address] appbackr Other XR shoulder LT min 2V* [place] [id number] [facility] appbackr Other XR shoulder LT min 2V* XRay Report [employer] Other XR shoulder LT min 2V* Signed [employer] Other XR shoulder LT min 2V* Patient: Malcom Knowles MR#: [id number] [employer] Other XR shoulder LT min 2V* [id number] [employer] Other XR shoulder LT min 2V* : 1955 Acct:[id number] [employer] Other XR shoulder LT min 2V* Age/Sex: 67 / F ADM Date: 07/01/23 [employer] Other XR shoulder LT min 2V* Loc: [facility] Room: Type: [facility] [employer] Other XR shoulder LT min 2V* Attending Dr: Lizandro Martins MD [employer] Other XR shoulder LT min 2V* Copies to: Lizandro Martins MD [employer] Other XR shoulder LT min 2V* Ordering Provider: Lizandro Martins MD [employer] Other XR shoulder LT min 2V* Date of Service: 07/01/23 [employer] Other XR shoulder LT min 2V* XR/XR shoulder LT min 2V*: Acute pain of left shoulder [employer] Other XR shoulder LT min 2V* XR shoulder LT min 2V* 07/01/2023 11:10 AM [employer] Other XR shoulder LT min 2V* SIGNS AND SYMPTOMS: Left shoulder pain with decreased range of motion [employer] Other XR shoulder LT min 2V* PROTOCOL: Frontal, Grashey, scapular Y views of the left shoulder [employer] Other XR shoulder LT min 2V* COMPARISON: None [employer] Other XR shoulder LT min 2V* FINDINGS: [employer] Other XR shoulder LT min 2V* There is mild hypertrophy of the acromioclavicular joint. There is narrowing of the glenohumeral [employer] Other XR shoulder LT min 2V* joint. There is no fracture or dislocation. The visualized left hemithorax is grossly intact. [employer] Other XR shoulder LT min 2V* XR/XR shoulder LT min 2V* [employer] Other XR shoulder LT min 2V* IMPRESSION: [employer] Other XR shoulder LT min 2V* No fracture or dislocation. [employer] Other XR shoulder LT min 2V* Degenerative changes are noted in the left shoulder, as above. [employer] Other XR shoulder LT min 2V* Impression dictated by: Aj Baker M.D.07/01/2023 2:36 PM [employer] Other XR shoulder LT min 2V* Dictation Location: [place] [address] [employer] Other XR shoulder LT min 2V* Transcribed By: FLORES 07/01/23 [facility] [employer] Other XR shoulder LT min 2V* Dictated By: Aj Baker II, MD 07/01/23 [facility] [employer] Other XR shoulder LT min 2V* Signed By: [employer] Other XR shoulder LT min 2V* 07/01/23 [facility] Other [facility] Record[facility] 05-23 [facility] Records [id number]#1.00CD:127 [facility] Record[facility] 05-22 [facility] Records [id number]#1.00CD:127 [facility] Comment on above: Other Comment: PRINT ED FOR PROVIDER SIGNATURE.NDW C Urineon 05-18-2023 Bacteria identified Cx Nom (U) Microbiology PROCEDURE: Urine Culture [R1] SOURCE: U CleanCatch BODY SITE: COLLECTED DATE/TIME: 05/16/2023 15:19 EDT RECEIVED DATE/TIME: 05/16/2023 17:37 EDT START DATE/TIME: 05/16/2023 17:38 EDT FREE TEXT SOURCE: Mariangel Peña Jodi L FINAL REPORTS Final Report [] Verified Date/Time: 05/18/2023 08:48 EDT 5,000 cfu/ml Mixed skin contaminants Performing Locations R1: This test was performed at: [facility], [address] [place] [address], [facility] , , [facility] Comment on above: Performed By: #### 2 [id number] ####[facility] [address] [place] [address] Recordson 05-17 [facility] Records [id number]#1.00CD:127 [facility] Ambulatory Visit Summaryon 0 05-16-2023 Ambulatory [...] tract infection) Duration: 7 Days Pickup at [facility] [place] Unchanged fluconazole (Diflucan 150 mg Tab) 1 Tablets By Mouth Once UTI (urinary tract infection) Unchanged Misc Prescription (Misc DME Prescription) See instructions BD ultra fine pen needles 31G X 3/ 16. Use to inject insulin as directed. Dx E10.42 Pharmacy Information [facility] [place]: [address] [place] [address] [phone] Allergies sulfa drugs (Unknown) Problems Ongoing - Any problem that you are currently receiving treatment for. UTI (urinary tract infection) Normal [facility] Family Medicine Office/Clini c Noteon 05-16-2023 Family Medicine Office/Clinic Note Chief Complaint pt here to establish care, UTI symptoms HPI Staff Malcom is a 67 year old female presenting to Establish care Establish Care: History: Any previous diagnosis: Diabetes, HTN, Frequent falls, gerd, depression, syncope History of seeing any specialist: Dr Loredo Neurologist in [place], Dr Alegria , Cardiolgoy , Urolgosit When was your last doctors visit: Last provider: Dr Walters Any recent labs: Health Maintenance UTD: Colonoscopy: [...] an assisted living at [facility]. They dipped her urine. see results above. [...] day(s), # 14 tab(s), Refills(s) 0, Pharmacy: [facility] [place], 158, cm, 05/16/23 14:43:00 EDT, [...] Immunizations Vaccine Date Status Comments SARS-CoV-2 (COVID-19) mRNAMUL.ORD![id number] 09/13/2022 Recorded SARS-CoV-2 (COVID-19) mRNA-1273 vaccine 01/13/2022 Recorded 2023-05-16: [id number] SARS-CoV-2 (COVID-19) mRNA-1273 vaccine 08/09/2021 Recorded SARS-CoV-2 (COVID-19) mRNA-1273 vaccine 07/12/2021 Recorded pneumococcal 13-valent vaccine 10/18/2016 Recorded Normal [facility] Comment on above: Result Comment: Elec tronically Signed By: Mariangel Peña\.br\Date and Time Signed: 05/16/23 15:28 EDT ECHOCARDIO M/2D COMPLETEon 0 05-01-2023 ECHOCARDIO M/2D COMPLETE Patient: MALCOM KNOWLES Exam Date: 05/01/2023 : 1955 Gender:F Ordering : DR. AJ YOUNG M.D. Admission #: [id number] Family : Order #: [id number] CLICK HERE TO VIEW EXAM ECHOCARDIOGRAM REPORT [...] Franco M.D. on 05/01/2023 at 18:18 Normal [facility] Lab Reportson 04-24-2023 Lab Reports [id number] [facility]#1.00CD:127 Normal [facility] Lab Reportson 04-17-2023 Lab Reports [id number] [facility]#1.00CD:127 Normal [facility] Office Visit (Cardiology)on 04-04-2023 Follow-up visit Diagnoses/Problems Assessed 2-vessel coronary artery disease (414.00) (I25.10) Chest pain (786.50) (R07.9) Diabetes mellitus (250.00) (E11.9) Essential hypertension (401.9) (I10) H/O non-ST elevation myocardial infarction (NSTEMI) (412) (I25.2) Hyperlipidemia (272.4) (E78.5) Morbid obesity with BMI of 50.0-59.9, adult (278.01,V85.43) (E66.01,Z68.43) Never a smoker Post PTCA (V45.82) (Z98.61) group home resident (V60.6) (Z59.3) Orders 2-vessel coronary artery disease Stop: Aspirin EC 81 MG TBEC Morbid obesity with BMI of 50.0-59.9, adult Healthy Weight Tips; Status:Complete - Retrospective Authorization; Done: 04Apr2023 Some eating tips that can help you lose weight.; Status:Complete - Retrospective Authorization; Done: [id number] SocHx: Never a smoker Tobacco Use Screening; Status:Complete; Done: 04Apr2023 Patient Instructions Please bring all medicines, vitamins, [...] 12:01:30 PM (more content not included)... Normal [facility] Tobacco Screening.on 023 Adult depression screening assessment No [facility] Jennifer DO Work Phone: Fall risk assessment b) One or more falls in the last year [facility] Jennifer DO Work Phone: Tobacco use status CPHS b) No [facility] Jennifer DO Work Phone: Lab Reportson 04-01-2023 Lab Reports [id number]#1.00CD:127 Normal [facility] Recordson 03-20 [facility] Records [id number] B4BB#1.00CD:127 Normal [facility] Recordson 02-19 [facility] Records [id number] C32F#1.00CD:127 Normal [facility] CT CSPINE WO CONon 3 CT [...] by: THONY JOHNSTON Date: 2023-01-24 19:08 Normal [facility] CT HEAD WO CONon 01-24-2023 CT HEAD [...] FLORIN ZHONG Date: 2023-01-24 18:51 Normal [facility] XR SHOULDER LT 2V or >on XR SHOULDER LT 2V or > EXAM: XR SHOULDER LT 2V or > HISTORY: Unspecified fall COMPARISON: Shoulder x-rays 08/27/2022 TECHNIQUE: 3 views FINDINGS: IMPRESSION: No visualized fracture, dislocation, subluxation or osseous lesion. Moderate degenerative changes of the acromial clinically joint. Electronically authenticated by: NIALL CELIS Date: 2023-01-24 18:58 Normal [facility] MRI BRAIN WO CONon MRI BRAIN WO CON EXAMINATION: MRI BRAIN [...] by: ADAMS RAGSDALE Date: 2023-01-18 15:07 Normal [facility] US CAROTID ART BILon 023 US CAROTID ART DION EXAMINATION: US CAROTID ART DION HISTORY: Bilateral carotid artery occlusion COMPARISON: No [...] ADAMS RAGSDALE Date: 2023-01-18 14:45 Normal [facility] CBC AUTO DIFFon 12-26-2022 BASO # 0.1 103/ul Normal 0.0-0.1 [facility] Comment on above: Performed By: #### A CET, CMP #### [facility] [address] [place] [address] Dr. Gilberto Ocampo Basophils/100 WBC (Bld) 0.8 % Normal 0.2-2.0 [facility] Comment on above: Performed By: #### A CET, CMP #### [facility] [address] [place] [address] Dr. Gilberto Ocampo EO # 0.6 103/ul Normal 0.0-0.7 [facility] Comment on above: Performed By: #### A CET, CMP #### [facility] [address] [place] [address] Dr. Gilberto Ocampo Eosinophils/100 WBC (Bld) 7.7 % Critically high 0.9-7.0 [facility] Comment on above: Performed By: #### A CET, CMP #### [facility] [address] [place] [address] Dr. Gilberto Ocampo Erythrocyte distribution width (RBC) [Ratio] 14.0 % Normal 11.0-15.0 [facility] Comment on above: Performed By: #### A CET, CMP #### [facility] [address] [place] [address] Dr. Gilberto Ocampo Hematocrit (Bld) [Volume fraction] 39.0 % Normal 36.0-48.0 [facility] Comment on above: Performed By: #### A CET, CMP #### [facility] [address] [place] [address] Dr. Gilberto Ocampo Hemoglobin (Bld) [Mass/Vol] 11.8 g/dL Critically low 12.0-16.0 [facility] Comment on above: Performed By: #### A CET, CMP #### [facility] [address] [place] [address] Dr. Gilberto Ocampo IG # 0.02 10e3/ul Normal 0.00-0.03 [facility] Comment on above: Performed By: #### A CET, CMP #### [facility] [address] [place] [address] Dr. Gilberto Ocampo IG % 0.3 % Normal 0.0-0.5 [facility] Comment on above: Performed By: #### A CET, CMP #### [facility] [address] [place] [address] Dr. Gilberto Ocampo LYMPH # 2.1 103/ul Normal 1.2-3.8 [facility] Comment on above: Performed By: #### A CET, CMP #### [facility] [address] [place] [address] Dr. Gilberto Ocampo Lymphocytes/100 WBC (Bld) 29.2 % Normal 20.5-60.0 [facility] Comment on above: Performed By: #### A CET, CMP #### [facility] [address] [place] [address] Dr. Gilberto Ocampo MANUAL DIFF REQ NO Normal [facility] Comment on above: Performed By: #### A CET, CMP #### [facility] [address] [place] [address] Dr. Gilberto Ocampo MCH (RBC) [Entitic mass] 29.2 pg Normal 26.7-34.0 [facility] Comment on above: Performed By: #### A CET, CMP #### [facility] [address] [place] [address] Dr. Gilberto Ocampo MCHC (RBC) [Mass/Vol] 30.3 g/dL Normal 29.9-35.2 [facility] Comment on above: Performed By: #### A CET, CMP #### [facility] [address] [place] [address] Dr. Gilberto Ocampo MCV (RBC) [Entitic vol] 96.5 fL Normal 81.0-99.0 [facility] Comment on above: Performed By: #### A CET, CMP #### [facility] [address] [place] [address] Dr. Gilberto Ocampo MONO # 0.6 103/ul Normal 0.3-0.8 [facility] Comment on above: Performed By: #### A CET, CMP #### [facility] [address] [place] [address] Dr. Gilberto Ocampo Monocytes/100 WBC (Bld) 9.0 % Normal 1.7-12.0 [facility] Comment on above: Performed By: #### A CET, CMP #### [facility] [address] [place] [address] Dr. Gilberto Ocampo NEUT # 3.8 103/ul Normal 1.4-6.5 [facility] Comment on above: Performed By: #### A CET, CMP #### [facility] [address] [place] [address] [address] Gilberto Ocampo Neutrophils/100 WBC (Bld) 53.0 % Normal 43.0-75.0 [facility] Comment on above: Performed By: #### A CET, CMP #### [facility] [address] [place] [address] [address] Gilberto Ocampo Platelet mean volume (Bld) [Entitic vol] 11.9 fL Normal 9.5-13.5 [facility] Comment on above: Performed By: #### A CET, CMP #### [facility] [address] [place] [address] [address] Gilberto Ocampo PLT 209 103/ul Normal 150-450 [facility] Comment on above: Performed By: #### A CET, CMP #### [facility] [address] [place] [address] [address] Gilberto Ocampo RBC 4.04 106/ul Critically low 4.20-5.40 [facility] Comment on above: Performed By: #### A CET, CMP #### [facility] [address] [place] [address] [address] Gilberto Ocampo WBC 7.1 103/ul Normal 4.0-11.0 [facility] Comment on above: Performed By: #### A CET, CMP #### [facility] [address] [place] [address] [address] Gilberto Ocampo GLYCOHEMOGLOBIN A1Con 2022 ADA RECOMMENDATION SEE BELOW Normal [facility] Comment on above: Result Comment: ADA RECOMMENDED LIMIT 4.0 - 6.0 ADA THERAPEUTIC TARGET < 7.0 ACTION SUGGESTED > 7.0 Performed By: #### A 1C #### [facility] [address] [place] [address] [address] Gilberto Ocampo Glucose [Mass/Vol] 189 mg/dL Normal [facility] Comment on above: Performed By: #### A 1C #### [facility] [address] [place] [address] [address] Gilberto Ocampo HbA1c (Bld) [Mass fraction] 8.2 % Critically high 4.5-6.2 [facility] Comment on above: Performed By: #### A 1C #### [facility] [address] [place] [address] [address] Gilberto Ocampo PROF 14(COMP METB)on 023 Albumin [Mass/Vol] 3.0 g/dL Critically low 3.4-5.0 [facility] Comment on above: Performed By: #### C MP #### [facility] [address] [place] [address] Dr. Gilberto Ocampo Albumin/Globulin [Mass ratio] 0.8 {ratio} Normal [facility] Comment on above: Performed By: #### C MP #### [facility] [address] [place] [address] Dr. Gilberto Ocampo ALP [Catalytic activity/Vol] 89 U/L Normal 46-116 [facility] Comment on above: Performed By: #### C MP #### [facility] [address] [place] [address] Dr. Gilberto Ocampo ALT [Catalytic activity/Vol] 22 U/L Normal 14-59 [facility] Comment on above: Performed By: #### C MP #### [facility] [address] [place] [address] Dr. Gilberto Ocampo Anion gap [Moles/Vol] 12.4 mmol/L Normal [facility] Comment on above: Performed By: #### C MP #### [facility] [address] [place] [address] Dr. Gilberto Ocampo AST [Catalytic activity/Vol] 19 U/L Normal 15-37 [facility] Comment on above: Performed By: #### C MP #### [facility] [address] [place] [address] Dr. Gliberto Ocampo Bilirubin [Mass/Vol] 0.6 mg/dL Normal 0.2-1.0 [facility] Comment on above: Performed By: #### C MP #### [facility] [address] [place] [address] Dr. Gilberto Ocampo Calcium [Mass/Vol] 8.9 mg/dL Normal 8.5-10.1 [facility] Comment on above: Performed By: #### C MP #### [facility] [address] [place] [address] [address] Gilberto Ocampo Chloride [Moles/Vol] 103 mmol/L Normal 98-107 [facility] Comment on above: Performed By: #### C MP #### [facility] [address] [place] [address] [address] Gilberto Ocampo CO2 [Moles/Vol] 28.5 mmol/L Normal 21.0-32.0 [facility] Comment on above: Performed By: #### C MP #### [facility] [address] [place] [address] [address] Gilberto Ocampo Creatinine [Mass/Vol] 1.52 mg/dL Critically high 0.55-1.02 [facility] Comment on above: Performed By: #### C MP #### [facility] [address] [place] [address] [address] Gilberto Ocampo EGFR-AF WELSH 41 mL/min/1.73m2 Critically low >=60 [facility] Comment on above: Performed By: #### C MP #### [facility] [address] [place] [address] [address] Gilberto Ocampo EGFR-NON AF WELSH 34 mL/min/1.73m2 Critically low >=60 [facility] Comment on above: Performed By: #### C MP #### [facility] [address] [address] [address] Gilberto Ocampo Globulin (S) [Mass/Vol] 3.8 g/dL Normal [facility] Comment on above: Performed By: #### C MP #### [facility] [address] [address] [address] Gilberto Ocampo Glucose [Mass/Vol] 206 mg/dL Critically high 74-106 T [facility] Comment on above: Performed By: #### C MP #### [facility] [address] [address] [address] Gilberto Ocampo Potassium [Moles/Vol] 3.9 mmol/L Normal 3.5-5.1 [facility] Comment on above: Performed By: #### C MP #### [facility] [address] [address] [address] Gilberto Ocampo Protein [Mass/Vol] 6.8 g/dL Normal 6.4-8.2 [facility] Comment on above: Performed By: #### C MP #### [facility] [address] [address] [address] Gilberto Ocampo Sodium [Moles/Vol] 140 mmol/L Normal 136-145 [facility] Comment on above: Performed By: #### C MP #### [facility] [address] [address] [address] Gilberto Ocampo Urea nitrogen [Mass/Vol] 16.0 mg/dL Normal 7.0-18.0 [facility] Comment on above: Performed By: #### C MP #### [facility] [address] [place] [address] Dr. Gilberto Ocampo Urea nitrogen/Creatinin e [Mass ratio] 10.5 mg/mg Normal [facility] Comment on above: Performed By: #### C MP #### [facility] [address] [place] [address] Dr. Gilberto Ocampo CULTURE URINEon 12-17-2022 CULTURE URINE Culture Observations: NO GROWTH. Normal [facility] Comment on above: Performed By: #### A CET, CMP #### [facility] [address] [place] [address] Dr. Gilberto Ocampo UA RANDOMon 12-17-2022 Bilirubin Ql (U) Negative Normal NEGATIVE [facility] Comment on above: Performed By: #### A CET, CMP #### [facility] [address] [place] [address] Dr. Gilberto Ocampo Clarity (U) CLEAR Normal CLEAR [facility] Comment on above: Performed By: #### A CET, CMP #### [facility] [address] [place] [address] Dr. Gilberto Ocampo Color (U) YELLOW Normal YELLOW [facility] Comment on above: Performed By: #### A CET, CMP #### [facility] [address] [place] [address] Dr. Gilberto Ocampo Glucose Ql (U) 250 mg/dl Abnormal NEGATIVE [facility] Comment on above: Performed By: #### A CET, CMP #### [facility] [address] [place] [address] Dr. Gilberto Ocampo Hemoglobin Ql (U) TRACE-INTACT Abnormal NEGATIVE [facility] Comment on above: Performed By: #### A CET, CMP #### [facility] [address] [place] [address] Dr. Gilberto Ocampo Ketones Ql (U) TRACE Abnormal NEGATIVE [facility] Comment on above: Performed By: #### A CET, CMP #### [facility] [address] [place] [address] Dr. Gilberto Ocampo LEUKOCYTES Negative Normal NEGATIVE [facility] Comment on above: Performed By: #### A CET, CMP #### [facility] [address] [place] [address] Dr. Gilberto Ocampo Nitrite Ql (U) Negative Normal NEGATIVE [facility] Comment on above: Performed By: #### A CET, CMP #### [facility] [address] [place] [address] Dr. Giblerto Ocampo pH (U) 5.0 [pH] Normal 5-9 [facility] Comment on above: Performed By: #### A CET, CMP #### [facility] [address] [place] [address] Dr. Gilberto Ocampo SPEC GRAVITY >=1.030 Abnormal 1.005-<=1.025 [facility] Comment on above: Performed By: #### A CET, CMP #### [facility] [address] [place] [address] Dr. Gilberto Ocampo UA PROTEIN TRACE Normal NEGATIVE/ TRACE [facility] Comment on above: Performed By: #### A CET, CMP #### [facility] [address] [place] [address] Dr. Gilberto Ocampo Urobilinogen Qn (U) 0.2 {Torres'U}/dL Normal 0.2 - 1.0 [facility] Comment on above: Performed By: #### A CET, CMP #### [facility] [address] [address] [address] Gilberto Ocampo XR HUMERUS RT MIN [...] by: THONY CLARK Date: 2022-11-17 02:30 Normal [facility] XR SHOULDER RT 2V or >on XR [...] THONY CLARK Date: 2022-11-17 03:30 Normal [facility] CULTURE URINEon 11-12-2022 CULTURE URINE Isolate 1 [...] F Trimethoprim/Sulfa methoxazole <=20 S F Normal [facility] Comment on above: Performed By: #### A CET, CMP #### [facility] [address] [address] [address] Gilberto Ocampo CULTURE URINEon 11-11-2022 CULTURE [...] F Trimethoprim/Sulfa methoxazole <=20 S F Normal [facility] Comment on above: Performed By: #### A CET, CMP #### [facility] [address] [place] [address] Dr. Gilberto Ocampo ACETAMINOPHENon 11-09-2022 Acetaminophen [Mass/Vol] ug/mL Critically low 10.0-30.0 [facility] Comment on above: Performed By: #### A CET, CMP #### [facility] [address] [place] [address] Dr. Gilberto Ocampo CBC AUTO DIFFon 11-09-2022 BASO # 0.0 103/ul Normal 0.0-0.1 [facility] Comment on above: Performed By: #### C BC #### [facility] [address] [place] [address] Dr. Gilberto Ocampo Basophils/100 WBC (Bld) 0.5 % Normal 0.2-2.0 [facility] Comment on above: Performed By: #### C BC #### [facility] [address] [place] [address] Dr. Gilberto Ocampo EO # 0.4 103/ul Normal 0.0-0.7 [facility] Comment on above: Performed By: #### C BC #### [facility] [address] [place] [address] Dr. Gilberto Ocampo Eosinophils/100 WBC (Bld) 6.4 % Normal 0.9-7.0 [facility] Comment on above: Performed By: #### C BC #### [facility] [address] [place] [address] Dr. Gilberto Ocampo Erythrocyte distribution width (RBC) [Ratio] 13.7 % Normal 11.0-15.0 [facility] Comment on above: Performed By: #### C BC #### [facility] [address] [place] [address] Dr. Gilberto Ocampo Hematocrit (Bld) [Volume fraction] 38.1 % Normal 36.0-48.0 [facility] Comment on above: Performed By: #### C BC #### [facility] [address] [place] [address] Dr. Gilberto Ocampo Hemoglobin (Bld) [Mass/Vol] 12.2 g/dL Normal 12.0-16.0 [facility] Comment on above: Performed By: #### C BC #### [facility] [address] [place] [address] Dr. Gilberto Ocampo IG # 0.02 10e3/ul Normal 0.00-0.03 [facility] Comment on above: Performed By: #### C BC #### [facility] [address] [place] [address] Dr. Gilberto Ocampo IG % 0.3 % Normal 0.0-0.5 [facility] Comment on above: Performed By: #### C BC #### [facility] [address] [place] [address] Dr. Gilberto Ocampo LYMPH # 2.1 103/ul Normal 1.2-3.8 [facility] Comment on above: Performed By: #### C BC #### [facility] [address] [place] [address] Dr. Gilberto Ocampo Lymphocytes/100 WBC (Bld) 33.1 % Normal 20.5-60.0 [facility] Comment on above: Performed By: #### C BC #### [facility] [address] [place] [address] Dr. Gilberto Ocampo MANUAL DIFF REQ NO Normal [facility] Comment on above: Performed By: #### C BC #### [facility] [address] [place], [place] [id number] Dr. Gilberto Ocampo MCH (RBC) [Entitic mass] 29.6 pg Normal 26.7-34.0 [facility] Comment on above: Performed By: #### C BC #### [facility] [address] [place] [address] Dr. Gilberto Ocampo MCHC (RBC) [Mass/Vol] 32.0 g/dL Normal 29.9-35.2 [facility] Comment on above: Performed By: #### C BC #### [facility] [address] [place] [address] Dr. Gilberto Ocampo MCV (RBC) [Entitic vol] 92.5 fL Normal 81.0-99.0 [facility] Comment on above: Performed By: #### C BC #### [facility] [address] [place] [address] Dr. Gilberto Ocampo MONO # 0.7 103/ul Normal 0.3-0.8 [facility] Comment on above: Performed By: #### C BC #### [facility] [address] [place] [address] Dr. Gilberto Ocampo Monocytes/100 WBC (Bld) 11.6 % Normal 1.7-12.0 [facility] Comment on above: Performed By: #### C BC #### [facility] [address] [place] [address] Dr. Gilberto Ocampo NEUT # 3.0 103/ul Normal 1.4-6.5 [facility] Comment on above: Performed By: #### C BC #### [facility] [address] [place] [address] Dr. Gilberto Ocampo Neutrophils/100 WBC (Bld) 48.1 % Normal 43.0-75.0 [facility] Comment on above: Performed By: #### C BC #### [facility] [address] [place] [address] Dr. Gilberto Ocampo Platelet mean volume (Bld) [Entitic vol] 10.8 fL Normal 9.5-13.5 [facility] Comment on above: Performed By: #### C BC #### [facility] [address] [address] [address] Gilberto Ocampo PLT 212 103/ul Normal 150-450 [facility] Comment on above: Performed By: #### C BC #### [facility] [address] [address] [address] Gilberto Ocampo RBC 4.12 106/ul Critically low 4.20-5.40 [facility] Comment on above: Performed By: #### C BC #### [facility] [address] [address] [address] Gilberto Ocampo WBC 6.3 103/ul Normal 4.0-11.0 [facility] Comment on above: Performed By: #### C BC #### [facility] [address] [place] [address] Dr. Gilberto Ocampo DRUG SCREEN RAPID (URINE)on 11-09-2022 AMP Negative Normal NEGATIVE [facility] Comment on above: Performed By: #### U ACSIND, UMICRO #### [facility] [address] [place] [address] Dr. Gilberto Ocampo BAR Negative Normal NEGATIVE [facility] Comment on above: Performed By: #### U ACSIND, UMICRO #### [facility] [address] [place] [address] Dr. Gilberto Ocampo BUP Negative Normal NEGATIVE [facility] Comment on above: Performed By: #### U ACSIND, UMICRO #### [facility] [address] [place] [address] Dr. Gilberto Ocampo BZO Negative Normal NEGATIVE [facility] Comment on above: Performed By: #### U ACSIND, UMICRO #### [facility] [address] [place] [address] Dr. Gilberto Ocampo CARLIE Negative Normal NEGATIVE [facility] Comment on above: Performed By: #### U ACSIND, UMICRO #### [facility] [address] [place] [address] Dr. Gilberto Ocampo CUT-OFFS SEE BELOW Normal [facility] Comment on above: Result Comment: AMP (Amphetamine): [...] Performed By: #### U ACSIND, UMICRO #### [facility] [address] [place] [address] Dr. Gilberto Ocampo DRUG CUT HEADER DRUG CLASS TEST SYSTEM CUT-OFF CONCENTRATIONS ARE FOLLOWS: Normal [facility] Comment on above: Performed By: #### U ACSIND, UMICRO #### [facility] [address] [place] [address] Dr. Gilberto Ocampo mAMP Negative Normal NEGATIVE [facility] Comment on above: Performed By: #### U ACSIND, UMICRO #### [facility] [address] [place] [address] Dr. Gilberto Ocampo MTD Negative Normal NEGATIVE [facility] Comment on above: Performed By: #### U ACSIND, UMICRO #### [facility] [address] [place] [address] Dr. Gilberto Ocampo OPI Negative Normal NEGATIVE [facility] Comment on above: Performed By: #### U ACSIND, UMICRO #### [facility] [address] [place] [address] Dr. Gliberto Ocampo OXY Negative Normal NEGATIVE [facility] Comment on above: Performed By: #### U ACSIND, UMICRO #### [facility] [address] [place] [address] Dr. Gilberto Ocampo PCP Negative Normal NEGATIVE [facility] Comment on above: Performed By: #### U ACSIND, UMICRO #### [facility] [address] [place] [address] Dr. Gilberto Ocampo PPX Negative Normal NEGATIVE [facility] Comment on above: Performed By: #### U ACSIND, UMICRO #### [facility] [address] [place] [address] Dr. Gilberto Ocampo TCA Negative Normal NEGATIVE [facility] Comment on above: Performed By: #### U ACSIND, UMICRO #### [facility] [address] [address] [address] Gilberto Ocampo THC Negative Normal NEGATIVE [facility] Comment on above: Performed By: #### U ACSIND, UMICRO #### [facility] [address] [place] [address] Dr. Gilberto Ocampo ER URINE PROFILEon 2 Clarity (U) CLOUDY Abnormal CLEAR [facility] Comment on above: Performed By: #### U ACSIND, UMICRO #### [facility] [address] [place] [address] Dr. Gilberto Ocampo ERUAHD A micrscopic examination will be performed if indicated. Normal [facility] Comment on above: Performed By: #### U ACSWALI, UMICRO #### [facility] [address] [place] [address] Dr. Gilberto Ocampo pH (U) 6.0 [pH] Normal 5-9 [facility] Comment on above: Performed By: #### U ACSWALI, UMICRO #### [facility] [address] [place] [address] Dr. Gilberto Ocampo Protein (U) [Mass/Vol] 30 mg/dL Abnormal NEGATIVE/ TRACE [facility] Comment on above: Performed By: #### U ACSIND, UMICRO #### [facility] [address] [place] [address] Dr. Gilberto Ocampo ETHANOL (BLD ALC)on 11-09-20 22 ALC NOTE NOTE: 80 mg/dl is the legal limit for a blood alcohol level Normal [facility] Comment on above: Performed By: #### E TH #### [facility] [address] [place] [address] Dr. Gilberto Ocampo Ethanol [Mass/Vol] mg/dL Normal [facility] Comment on above: Performed By: #### E TH #### [facility] [address] [place] [address] Dr. Gilberto Ocampo GLYCOHEMOGLOBIN A1Con 2021 ADA RECOMMENDATION SEE BELOW Normal [facility] Comment on above: Result Comment: ADA RECOMMENDED LIMIT 4.0 - 6.0 ADA THERAPEUTIC TARGET < 7.0 ACTION SUGGESTED > 7.0 Performed By: #### U ACSWALI UMICRO #### [facility] [address] [place] [address] Dr. Gilberto Ocampo Glucose [Mass/Vol] 177 mg/dL Normal [facility] Comment on above: Performed By: #### U ACSAMERICA KEYESRO #### [facility] [address] [place] [address] Dr. Gilberto Ocampo HbA1c (Bld) [Mass fraction] 7.8 % Critically high 4.5-6.2 [facility] Comment on above: Performed By: #### U CRISTOBAL, TARAICRO #### [facility] [address] [place] [address] Dr. Gilberto Ocampo LIPID PROFILEon 11-09-2022 CHOL-HDL RATIO NORM SEE BELOW Normal [facility] Comment on above: Result Comment: 3.3 - 4.4 LOW RISK 4.4 - 7.1 AVERAGE RISK 7.1 - 11.0 MODERATE RISK >11.0 HIGH RISK Performed By: #### L IPID #### [facility] [address] [place] [address] Dr. Gliberto Ocampo Cholesterol [Mass/Vol] 111 mg/dL Normal <=200 [facility] Comment on above: Performed By: #### L IPID #### [facility] [address] [place] [address] Dr. Gilberto Ocampo Cholesterol in HDL [Mass/Vol] 64 mg/dL Critically high 40-60 [facility] Comment on above: Performed By: #### L IPID #### [facility] [address] [place] [address] Dr. Gilberto Ocampo Cholesterol in LDL [Mass/Vol] 28.6 mg/dL Normal [facility] Comment on above: Performed By: #### L IPID #### [facility] [address] [place] [address] Dr. Gilberto Ocampo Cholesterol.total/ Cholesterol in HDL [Mass ratio] 1.7 {ratio} Normal [facility] Comment on above: Performed By: #### L IPID #### [facility] [address] [place] [address] Dr. Gilberto Ocampo HDL NORMAL > or = 60 mg/dl - LOW CARDIOVASCULAR RISK <40 mg/dl - HIGH CARDIOVASCULAR RISK Normal [facility] Comment on above: Performed By: #### L IPID #### [facility] [address] [place] [address] Dr. Gilberto Ocampo LDL CALC NORMAL SEE BELOW Normal [facility] Comment on above: Result Comment: <100 mg/dl OPTIMAL 100 - 129 mg/dl NEAR OR ABOVE OPTIMAL 130 - 159 mg/dl BORDERLINE HIGH 160 - 189 mg/dl HIGH >190 mg/dl VERY HIGH Performed By: #### L IPID #### [facility] [address] [place] [address] Dr. Gilberto Ocampo Triglyceride [Mass/Vol] 92 mg/dL Normal <=150 [facility] Comment on above: Performed By: #### L IPID #### [facility] [address] [place] [address] Dr. Gilberto Ocampo VLDL CALC 18.4 mg/dL Normal [facility] Comment on above: Performed By: #### L IPID #### [facility] [address] [place] [address] Dr. Gilberto Ocampo PROF 14(COMP METB)on 022 Albumin [Mass/Vol] 3.5 g/dL Normal 3.4-5.0 [facility] Comment on above: Performed By: #### A CET, CMP #### [facility] [address] [place] [address] Dr. Gilberto Ocampo Albumin/Globulin [Mass ratio] 0.9 {ratio} Normal [facility] Comment on above: Performed By: #### A CET, CMP #### [facility] [address] [place] [address] Dr. Gilberto Ocampo ALP [Catalytic activity/Vol] 87 U/L Normal 46-116 [facility] Comment on above: Performed By: #### A CET, CMP #### [facility] [address] [place] [address] Dr. Gilberto Ocampo ALT [Catalytic activity/Vol] 23 U/L Normal 14-59 [facility] Comment on above: Performed By: #### A CET, CMP #### [facility] [address] [place] [address] Dr. Gilberto Ocampo Anion gap [Moles/Vol] 9.3 mmol/L Normal [facility] Comment on above: Performed By: #### A CET, CMP #### [facility] [address] [place] [address] Dr. Gilberto Ocampo AST [Catalytic activity/Vol] 24 U/L Normal 15-37 [facility] Comment on above: Performed By: #### A CET, CMP #### [facility] [address] [place] [address] Dr. Gilberto Ocampo Bilirubin [Mass/Vol] 1.0 mg/dL Normal 0.2-1.0 [facility] Comment on above: Performed By: #### A CET, CMP #### [facility] [address] [place] [address] Dr. Gilberto Ocampo Calcium [Mass/Vol] 8.7 mg/dL Normal 8.5-10.1 [facility] Comment on above: Performed By: #### A CET, CMP #### [facility] [address] [place] [address] Dr. Gilberto Ocampo Chloride [Moles/Vol] 102 mmol/L Normal 98-107 [facility] Comment on above: Performed By: #### A CET, CMP #### [facility] [address] [place] [address] Dr. Gilberto Ocampo CO2 [Moles/Vol] 32.4 mmol/L Critically high 21.0-32.0 [facility] Comment on above: Performed By: #### A CET, CMP #### [facility] [address] [place] [address] Dr. Gilberto Ocampo Creatinine [Mass/Vol] 1.58 mg/dL Critically high 0.55-1.02 [facility] Comment on above: Performed By: #### A CET, CMP #### [facility] [address] [address] [address] Gilberto Ocampo EGFR-AF WELSH 39 mL/min/1.73m2 Critically low >=60 [facility] Comment on above: Performed By: #### A CET, CMP #### [facility] [address] [address] [address] Gilberto Ocampo EGFR-NON AF WELSH 32 mL/min/1.73m2 Critically low >=60 [facility] Comment on above: Performed By: #### A CET, CMP #### [facility] [address] [place] [address] Dr. Gilebrto Ocampo Globulin (S) [Mass/Vol] 3.7 g/dL Normal [facility] Comment on above: Performed By: #### A CET, CMP #### [facility] [address] [place] [address] Dr. Gilberto Ocampo Glucose [Mass/Vol] 272 mg/dL Critically high 74-106 [facility] Comment on above: Performed By: #### A CET, CMP #### [facility] [address] [place] [address] Dr. Gilberto Ocampo Potassium [Moles/Vol] 3.7 mmol/L Normal 3.5-5.1 [facility] Comment on above: Performed By: #### A CET, CMP #### [facility] [address] [place] [address] Dr. Gilberto Ocampo Protein [Mass/Vol] 7.2 g/dL Normal 6.4-8.2 [facility] Comment on above: Performed By: #### A CET, CMP #### [facility] [address] [place] [address] Dr. Gilberto Ocampo Sodium [Moles/Vol] 140 mmol/L Normal 136-145 [facility] Comment on above: Performed By: #### A CET, CMP #### [facility] [address] [place] [address] Dr. Gilberto Ocampo Urea nitrogen [Mass/Vol] 20.0 mg/dL Critically high 7.0-18.0 [facility] Comment on above: Performed By: #### A CET, CMP #### [facility] [address] [place] [address] Dr. Gilberto Ocampo Urea nitrogen/Creatinin e [Mass ratio] 12.7 mg/mg Normal [facility] Comment on above: Performed By: #### A CET, CMP #### [facility] [address] [place] [address] Dr. Gilberto Ocampo UA (CLEAN/CATCH) SENIOR ASSET MANAGER/MICRO I F IND.on 11-09-2022 Bilirubin Ql (U) Negative Normal NEGATIVE [facility] Comment on above: Performed By: #### U ACSIND, UMICRO #### [facility] [address] [place] [address] Dr. Gilberto Ocampo Clarity (U) CLEAR Normal CLEAR [facility] Comment on above: Performed By: #### U ACSIND, UMICRO #### [facility] [address] [place] [address] Dr. Gilberto Ocampo Color (U) LT. YELLOW Normal YELLOW [facility] Comment on above: Performed By: #### U ACSIND, UMICRO #### [facility] [address] [place] [address] Dr. Gilberto Ocampo Glucose Ql (U) Negative Normal NEGATIVE [facility] Comment on above: Performed By: #### U ACSIND, UMICRO #### [facility] [address] [place] [address] Dr. Gilberto Ocampo Hemoglobin Ql (U) LARGE Abnormal NEGATIVE [facility] Comment on above: Performed By: #### U ACSIND, UMICRO #### [facility] [address] [place] [address] Dr. Gilberto Ocampo Ketones Ql (U) TRACE Abnormal NEGATIVE [facility] Comment on above: Performed By: #### U ACSIND, UMICRO #### [facility] [address] [place] [address] Dr. Gilberto Ocampo LEUKOCYTES MODERATE Abnormal NEGATIVE [facility] Comment on above: Performed By: #### U ACSIND, UMICRO #### [facility] [address] [address] [address] Gilberto Ocampo Nitrite Ql (U) Positive Abnormal NEGATIVE [facility] Comment on above: Performed By: #### U ACSIND, UMICRO #### [facility] [address] [address] [address] Gilberto Ocampo pH (U) 5.5 [pH] Normal 5-9 [facility] Comment on above: Performed By: #### U ACSIND, UMICRO #### [facility] [address] [address] [address] Gilberto Ocampo SPEC GRAVITY 1.025 Normal 1.005-<=1.025 [facility] Comment on above: Performed By: #### U ACSIND, UMICRO #### [facility] [address] [address] [address] Gilberto Ocampo UA PROTEIN 30 mg/dl Abnormal NEGATIVE/ TRACE [facility] Comment on above: Performed By: #### U ACSIND, UMICRO #### [facility] [address] [address] [address] Gilberto Ocampo UR MICRO IND INDICATED Normal [facility] Comment on above: Performed By: #### U ACSIND, UMICRO #### [facility] [address] [address] [address] Gilberto Ocampo Urobilinogen Qn (U) 0.2 {Torres'U}/dL Normal 0.2 - 1.0 [facility] Comment on above: Performed By: #### U ACSIND, UMICRO #### [facility] [address] [address] [address] Gilberto Ocampo URINE MICROSCOPIC ONLYon BACTERIA SMALL Abnormal NONE SEEN [facility] Comment on above: Performed By: #### U ACSIND, UMICRO #### [facility] [address] [address] [address] Gilberto Ocampo BACTERIA MODERATE Abnormal NONE SEEN [facility] Comment on above: Performed By: #### U ACSIND, UMICRO #### [facility] [address] [address] [address] Gilberto Ocampo Bacteria identified Cx Nom (U) INDICATED Normal [facility] Comment on above: Performed By: #### U ACSIND, UMICRO #### [facility] [address] [address] [address] Gilberto Ocampo CAST NONE SEEN Normal NONE SEEN [facility] Comment on above: Performed By: #### U ACSIND, UMICRO #### [facility] [address] [place] [address] Dr. Gilberto Ocampo Crystals LM Nom (Urine sed) NONE SEEN Normal NONE SEEN [facility] Comment on above: Performed By: #### U ACSWALI, UMICRO #### [facility] [address] [place] [address] Dr. Gilberto Ocampo Epithelial cells LM Ql (Urine sed) MODERATE Abnormal NONE SEEN /RARE [facility] Comment on above: Performed By: #### U ACSWALI, ICRO #### [facility] [address] [place] [address] Dr. Gilberot Ocampo MUCOUS TRACE Abnormal NONE SEEN [facility] Comment on above: Performed By: #### U ACSWALI, ICRO #### [facility] [address] [place] [address] Dr. Gilberto Ocampo MUCOUS SMALL Abnormal NONE SEEN [facility] Comment on above: Performed By: #### U ACSWALI UMICRO #### [facility] [address] [place] [address] Dr. Gilberto Ocampo RBC 2-5 Abnormal 0-2 [facility] Comment on above: Performed By: #### U ACSWALI, UMICRO #### [facility] [address] [place] [address] Dr. Gilberto Ocampo RBC 5-10 Abnormal 0-2 [facility] Comment on above: Performed By: #### U ACSWALI, UMICRO #### [facility] [address] [place] [address] Dr. Gilberto Ocampo WBC 20-50 Abnormal NONE SEEN [facility] Comment on above: Performed By: #### U CRISTOBAL UMICRO #### [facility] [address] [address] [address] Gilberto Ocampo WBC 10-20 Abnormal NONE SEEN [facility] Comment on above: Performed By: #### U ACSWALI UMICRO #### [facility] [address] [address] [address] Gilberto Ocampo MG MAMM SCREEN 3D DION CADon 10-11-2022 MG MAMM SCREEN 3D DION CAD Patient: MALCOM KNOWLES Exam Date: 10/11/2022 : 1955 Gender:F Ordering : DR DUSTY WALTERS . Admission #: [id number] Family : Order #: [id number] CLICK HERE TO VIEW EXAM RADIOLOGY REPORT [...] prostate cancer at age 64. LOCATION: [facility] BREAST COMPOSITION: Scattered areas fibroglandular density. FINDINGS: [...] Talbert MD on 10/11/2022 at 14:47 Normal [facility] PTH INTACTon 09-18-2022 PTH, Intact 46 pg/mL Normal 15-65 [facility] Comment on above: Performed By: #### U CRISTOBAL UMICRO #### [facility] [address] [address] [address] Gilberto Ocampo HEMOGRAM AND PLATELon 2021 Hematocrit (Bld) [Volume fraction] 37.2 % Normal 36.0-48.0 [facility] Comment on above: Performed By: #### H H #### [facility] [address] [place] [address] Dr. Gilberto Ocampo Hemoglobin (Bld) [Mass/Vol] 12.2 g/dL Normal 12.0-16.0 [facility] Comment on above: Performed By: #### H H #### [facility] [address] [place] [address] Dr. Gilberto Ocampo MCH (RBC) [Entitic mass] 30.3 pg Normal 26.7-34.0 [facility] Comment on above: Performed By: #### H H #### [facility] [address] [place] [address] Dr. Gilberto Ocampo MCHC (RBC) [Mass/Vol] 32.8 g/dL Normal 29.9-35.2 [facility] Comment on above: Performed By: #### H H #### [facility] [address] [place] [address] Dr. Gilberto Ocampo MCV (RBC) [Entitic vol] 92.5 fL Normal 81.0-99.0 [facility] Comment on above: Performed By: #### H H #### [facility] [address] [place] [address] Dr. Gilberto Ocampo PLT 194 103/ul Normal 150-450 [facility] Comment on above: Performed By: #### H H #### [facility] [address] [place] [address] Dr. Gilberto Ocampo RBC 4.02 106/ul Critically low 4.20-5.40 [facility] Comment on above: Performed By: #### H H #### [facility] [address] [place] [address] Dr. Gilberto Ocampo WBC 5.4 103/ul Normal 4.0-11.0 [facility] Comment on above: Performed By: #### H H #### [facility] [address] [place] [address] Dr. Gilberto Ocampo MAGNESIUMon 09-15-2022 Magnesium [Mass/Vol] 1.9 mg/dL Normal 1.8-2.4 [facility] Comment on above: Performed By: #### A CET, CMP #### [facility] [address] [place] [address] Dr. Gilberto Ocampo PROF 14(COMP METB)on 022 Albumin [Mass/Vol] 3.3 g/dL Critically low 3.4-5.0 [facility] Comment on above: Performed By: #### A CET, CMP #### [facility] [address] [place] [address] Dr. Gilberto Ocampo Albumin/Globulin [Mass ratio] 0.9 {ratio} Normal [facility] Comment on above: Performed By: #### A CET, CMP #### [facility] [address] [place] [address] Dr. Gilberto Ocampo ALP [Catalytic activity/Vol] 85 U/L Normal 46-116 [facility] Comment on above: Performed By: #### A CET, CMP #### [facility] [address] [place] [address] Dr. Gilberto Ocampo ALT [Catalytic activity/Vol] 32 U/L Normal 14-59 [facility] Comment on above: Performed By: #### A CET, CMP #### [facility] [address] [place] [address] Dr. Gilberto Ocampo Anion gap [Moles/Vol] 12.3 mmol/L Normal [facility] Comment on above: Performed By: #### A CET, CMP #### [facility] [address] [place] [address] Dr. Gilberto Ocampo AST [Catalytic activity/Vol] 20 U/L Normal 15-37 [facility] Comment on above: Performed By: #### A CET, CMP #### [facility] [address] [place] [address] Dr. Gilberto Ocampo Bilirubin [Mass/Vol] 1.1 mg/dL Critically high 0.2-1.0 [facility] Comment on above: Performed By: #### A CET, CMP #### [facility] [address] [place] [address] Dr. Gilberto Ocampo Calcium [Mass/Vol] 8.5 mg/dL Normal 8.5-10.1 [facility] Comment on above: Performed By: #### A CET, CMP #### [facility] [address] [address] [address] Gilberto Ocampo Chloride [Moles/Vol] 103 mmol/L Normal 98-107 [facility] Comment on above: Performed By: #### A CET, CMP #### [facility] [address] [address] [address] Gilberto Ocampo CO2 [Moles/Vol] 29.5 mmol/L Normal 21.0-32.0 [facility] Comment on above: Performed By: #### A CET, CMP #### [facility] [address] [place] [address] Dr. Gilberto Ocampo Creatinine [Mass/Vol] 1.52 mg/dL Critically high 0.55-1.02 [facility] Comment on above: Performed By: #### A CET, CMP #### [facility] [address] [place] [address] Dr. Gilberto Ocampo EGFR-AF WELSH 41 mL/min/1.73m2 Critically low >=60 [facility] Comment on above: Performed By: #### A CET, CMP #### [facility] [address] [place] [address] Dr. Gilberto Ocampo EGFR-NON AF WELSH 34 mL/min/1.73m2 Critically low >=60 [facility] Comment on above: Performed By: #### A CET, CMP #### [facility] [address] [place] [address] Dr. Gilberto Ocampo Globulin (S) [Mass/Vol] 3.6 g/dL Normal [facility] Comment on above: Performed By: #### A CET, CMP #### [facility] [address] [place] [address] Dr. Gilberto Ocampo Glucose [Mass/Vol] 323 mg/dL Critically high 74-106 T [facility] Comment on above: Performed By: #### A CET, CMP #### [facility] [address] [address] [address] Gilberto Ocampo Potassium [Moles/Vol] 3.8 mmol/L Normal 3.5-5.1 [facility] Comment on above: Performed By: #### A CET, CMP #### [facility] [address] [place] [address] Dr. Gilberto Ocampo Protein [Mass/Vol] 6.9 g/dL Normal 6.4-8.2 [facility] Comment on above: Performed By: #### A CET, CMP #### [facility] [address] [place] [address] Dr. Gilberto Ocampo Sodium [Moles/Vol] 141 mmol/L Normal 136-145 [facility] Comment on above: Performed By: #### A CET, CMP #### [facility] [address] [place] [address] Dr. Gilberto Ocampo Urea nitrogen [Mass/Vol] 16.0 mg/dL Normal 7.0-18.0 [facility] Comment on above: Performed By: #### A CET, CMP #### [facility] [address] [place] [address] Dr. Gilberto Ocampo Urea nitrogen/Creatinin e [Mass ratio] 10.5 mg/mg Normal [facility] Comment on above: Performed By: #### A CET, CMP #### [facility] [address] [place] [address] Dr. Gilberto Ocampo URIC ACID SERUMon 09-15-2022 Urate [Mass/Vol] 3.3 mg/dL Normal 2.6-6.0 [facility] Comment on above: Performed By: #### A CET, CMP #### [facility] [address] [place] [address] Dr. Gilberto Ocampo VITAMIN D 25 OHon 09-15-2022 VIT D 25-OH 57.1 ng/mL Normal [facility] Comment on above: Performed By: #### U ACSIND, UMICRO #### [facility] [address] [place] [address] Dr. Gilberto Ocampo VIT D RANGES SEE BELOW Normal [facility] Comment on above: Result Comment: <20 ng/mL Vit D deficient 20 - <30 ng/mL Vit D insufficient 30 - 100 ng/mL Vit D sufficient >100 ng/mL Potential Toxicity Performed By: #### U ZAID JAIN #### [facility] [address] [place] [address] Dr. Gilberto Ocampo US KIDNEYSon 08-30-2022 US [...] for patient's symptoms. Electronically authenticated by: ADAMS RAGSDALE Date: 2022-08-30 11:46 Normal [facility] XR CHEST 2 Von 08-27-2022 XR CHEST [...] by: ADAMS RAGSDALE Date: 2022-08-27 21:54 Normal [facility] XR NECK SOFT TISSUEon 2021 XR NECK [...] the cervical spine. Electronically authenticated by: ADAMS RGASDALE Date: 2022-08-27 21:58 Normal [facility] Tobacco Screening.on 022 Adult depression screening assessment No [facility] [employer] 250 DO Work Phone: Fall risk assessment b) One or more falls in the last year [facility] [employer] 250 DO Work Phone: Tobacco use status CPHS b) No -[facility] [employer] y 250 DO Work Phone: CNPNon 01-18-2021 CNPN Telephone (GYNML) -------- MALCOM KNOWLES ([id number]) 1955 F Date Time Provider Department 01/18/21 REGINA MANZO GYNML During your visit today, we recorded the following information about you: Anabela Bettencourt Pss 01/18/2021 10:00 AM Signed Called patient and told her Pur[facility] left and needs to make a follow up at . Patient said she will call back in April. She has to figure out transportation. 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 FLU VACCINE 2010-12(3 YR+)(PF) 01/18/2016 16 [...] Encounter Status:Closed by ANABELA BUSTAMANTE on 01/18/21 [facility] Vital Signs Date Time Vital Sign Value Performing Clinician Facility 11-21-2023 10:16-0500 Blood Pressure Location BRIGIDA WILLOUGHBY [employer] [facility] 11-21-2023 10:16-0500 Diastolic blood pressure 84 mm[Hg] BRIGIDA GAMINGRY [facility] 11-21-2023 10:16-0500 Systolic blood pressure 138 mm[Hg] BRIGIDA WILLOUGHBY [facility] 07-02-2023 14:20-0400 Body height 162.56 cm [employer] Other [employer] Other 07-02-2023 14:20-0400 Body temperature 96.7 [degF] [employer] Other [employer] Other 07-02-2023 14:20-0400 Diastolic blood pressure 79 mm[Hg] [employer] Other [employer] Other 07-02-2023 14:20-0400 Respiratory rate 18 /min [employer] Other [employer] Other 07-02-2023 14:20-0400 SaO2% (BldA) [Mass fraction] 98 % [employer] Other [employer] Other 07-02-2023 14:20-0400 Systolic blood pressure 155 mm[Hg] [employer] Other [employer] Other 04-04-2023 11:33-0400 Body height 160.02 cm Dusty Quintanillaight Work Phone: [employer] [facility] 600 DO Work Phone: 04-04-2023 11:33-0400 Body mass index (BMI) [Ratio] 52.97 kg/m2 Dusty Seals Walters Work Phone: [employer] [facility] 600 DO Work Phone: 04-04-2023 11:33-0400 Body surface area Derived from formula 2.29 m2 Dusty Walters Work Phone: [employer] [facility] 600 DO Work Phone: 04-04-2023 11:33-0400 Body weight 135.63 kg Dusty Quintanillaight Work Phone: [employer] [facility] 600 DO Work Phone: 04-04-2023 11:33-0400 Diastolic blood pressure 70 mm[Hg] Dusty Quintanillaight Work Phone: [employer] [facility] 600 DO Work Phone: 04-04-2023 11:33-0400 Heart rate 72 /min Dusty Quintanillaight Work Phone: [facility] 600 DO Work Phone: 04-04-2023 11:33-0400 Systolic blood pressure 110 mm[Hg] Dusty Seals Walters Work Phone: [facility] 600 DO Work Phone: 11-20-2022 10:30-0500 Body height 162.56 cm Lizandro Martins Other [employer] Other 10-30-2022 16:20-0500 Body height 162.56 cm Aziz Bakhous Other [employer] Other 10-30-2022 16:20-0500 Diastolic blood pressure 84 mm[Hg] Aziz Bakhous Other [employer] Other 10-30-2022 16:20-0500 SaO2% (BldA) [Mass fraction] 98 % Aziz Bakhous Other [employer] Other 10-30-2022 16:20-0500 Systolic blood pressure 128 mm[Hg] Aziz Bakhous Other [employer] Other 05-15-2022 14:20-0400 Body height 162.56 cm Aziz Bakhous Other [employer] Other 05-15-2022 14:20-0400 Body temperature 97 [degF] Aziz Bakhous Other [employer] Other 05-15-2022 14:20-0400 Diastolic blood pressure 70 mm[Hg] Aziz Bakhous Other [employer] Other 05-15-2022 14:20-0400 Respiratory rate 18 /min Aziz Bakhous Other [employer] Other 05-15-2022 14:20-0400 SaO2% (BldA) [Mass fraction] 97 % Aziz Bakhous Other [employer] Other 05-15-2022 14:20-0400 Systolic blood pressure 120 mm[Hg] Aziz Bakhous Other [employer] Other 03-12-2022 13:25-0400 Body height 160.02 cm Dusty Walters Work Phone: [facility] 250 DO Work Phone: 03-12-2022 13:25-0400 Body mass index (BMI) [Ratio] 51.02 kg/m2 Dusty Walters Work Phone: [facility] 250 DO Work Phone: 03-12-2022 13:25-0400 Body surface area Derived from formula 2.26 m2 Dusty Walters Work Phone: [facility] 250 DO Work Phone: 03-12-2022 13:25-0400 Body weight 130.64 kg Dusty Walters Work Phone: [facility] 250 DO Work Phone: 03-12-2022 13:25-0400 Diastolic blood pressure 78 mm[Hg] Dusty Walters Work Phone: [facility] 250 DO Work Phone: 03-12-2022 13:25-0400 Heart rate 70 /min Dusty Walters Work Phone: [facility] 250 DO Work Phone: 03-12-2022 13:25-0400 Systolic blood pressure 102 mm[Hg] Dusty Walters Work Phone: [facility] 250 DO Work Phone: Encounters Encounter Date Encounter Type Care Provider Facility Start: 03-03-2024 ambulatory BRIGIDA Bozena GAMINGRY Facili ty:[facility] [place] Start: 02-27-2024 ambulatory BRIGIDA E FARTUN Facili ty:[facility] [place] Start: 02-24-2024 ambulatory Felix Easley Facility :[facility] [place] Start: 11-21-2023 End: 11-22-2023 ambulatory AZIZ [facility]AKMID [facility] Facility:[facility] [place] Start: 11-21-2023 End: 11-21-2023 Patient encounter procedure BRIGIDA WILLOUGHBY [facility] [place] Start: 11-20-2023 End: 11-21-2023 ambulatory Felix Easley Facility:[facility] [place] [facility] Start: 10-23-2023 [facility] [place] Start: 10-01-2023 End: 10-02-2023 ambulatory Felix Easley Facility:[facility] Start: 10-01-2023 End: 10-01-2023 Patient encounter procedure Felix Easley [facility] Start: 09-09-2023 End: 09-10-2023 ambulatory Felix Easley Facility:[facility] [place] Start: 07-31-2023 End: 07-31-2023 ambulatory Anjana Pal Other [employer] Other Start: 07-31-2023 Telephone encounter Anjana Pal [facility] Start: 07-28-2023 End: 07-28-2023 ambulatory MD Dusty Walters Work Phone: [facility] Work Phone: Start: 07-28-2023 End: 07-28-2023 Departed Referred MD Dusty Walters Work Phone: [facility] Work Phone: Start: 07-15-2023 End: 07-16-2023 ambulatory Mariangel Campbell Facility:[facility] [place] [facility] Start: 07-05-2023 Telephone encounter Tanika John [facility] Start: 07-05-2023 End: 07-05-2023 ambulatory Tanika John Other [employer] Other Start: 07-02-2023 End: 07-02-2023 ambulatory Azamos Hernandezs Other [employer] Other Start: 07-02-2023 Office outpatient visit 25 minutes Aziz Omarhous [facility] Start: 07-01-2023 Office outpatient visit 25 minutes Brigida George [facility] Start: 07-01-2023 End: 07-01-2023 ambulatory MD Dusty Walters Work Phone: [facility] Work Phone: Start: 07-01-2023 End: 07-01-2023 Patient encounter procedure MD Dusty Walters Work Phone: [facility] Start: 06-28-2023 End: 06-28-2023 ambulatory Azamos Hernandezs Other [facility] [employer] Other Start: 06-28-2023 Telephone encounter Chip Hernandezs [facility] Start: 05-16-2023 End: 05-17-2023 ambulatory Mariangelquinn Campbell Facility:[facility] Start: 05-16-2023 End: 05-16-2023 Lab Drop off Mariangel L Adrian [facility] Start: 05-01-2023 ambulatory AJ YOUNG Facility:[facility] Start: 04-04-2023 Office outpatient visit 25 minutes Dusty Walters Work Phone: [facility] 600 DO Work Phone: Start: 04-04-[address] Dusty Salgado acility: Start: 02-06-2023 ambulatory BRIGIDA WILLOUGHBY Facility :[facility] [place] Start: 01-24-2023 End: 01-24-2023 ambulatory CONNER Brown Facility:[facility] Start: 01-18-2023 End: 01-19-2023 ambulatory AJ BEMayra Facility: Start: 12-26-2022 End: 12-26-[address] DUSTY WALTERS . Facility:[facility] Start: 12-18-2022 End: 12-18-2022 ambulatory Lizandro Martins Other [employer] Other Start: 12-18-2022 Office outpatient visit 15 minutes Lizandro Martins [facility] Start: 12-17-2022 End: 12-17-[address] DUSTY WALTERS . Facility:[facility] Start: 11-20-2022 End: 11-20-2022 ambulatory Lizandro Martins Other [employer] Other Start: 11-20-2022 [facility] visit new patient Lizandro Martins [facility] Start: 11-17-2022 End: 11-17-[address] DUSTY WALTERS . Facility:[facility] Start: 11-09-2022 End: 11-10-[address] DUSTY WALTERS . Facility:[facility] Start: 11-09-2022 End: 11-10-[address] DUSTY WALTERS . Facility:[facility] Start: 10-30-2022 End: 10-30-2022 ambulatory Chip Craft Other [employer] Other Start: 10-30-2022 Office outpatient visit 15 minutes Azamos Craft [facility] Start: 10-11-2022 End: 10-12-[address] DUSTY WALTERS . Facility:[facility] Start: 09-15-2022 End: [address] DUSTY WALTERS . Facility:[facility] Start: 08-30-2022 End: 08-31-[address] DOCTOR GALEANA Facility:[facility] Start: 08-27-2022 End: 08-28-[address] DUSTY WALTERS . Facility:[facility] Start: 07-04-2022 End: 07-04-[address] DUSTY WALTERS . Facility:[facility] Start: 05-15-2022 End: 05-15-2022 ambulatory Chip Craft Other [employer] Other Start: 05-15-2022 Office outpatient ne w 30 minutes Aziz Bakhous [facility] Start: 03-12-2022 Office outpatient visit 25 minutes Dusty Walters Work Phone: [facility] 250 DO Work Phone: Procedures Date Procedure Procedure Detail Performing Clinician Start: 07-01-2023 Plain X-ray of left shoulder MD Dusty Walters Work Phone: Arthroplasty of knee Dusty chase Work Phone: Cardiac catheterization Dusty Walters Work Phone: Cardiac catheterization Jose R Easley Comment on above: 2018 2 stents, 2019 3 stents Cataract (disorder) Felix collazo Comment on above: 08/2021 Colonoscopy BRIGIDA WILLOUGHBY History of arthropla sty of left knee Felix Easley Comment on above: 2018 History of operative procedure on knee Aziz Bakhous Other History of operative procedure on knee Aziz Bakhous Other History of operative procedure on knee History of arthroplasty of right knee MD Dutsy Walters Work Phone: History of placement of stent for coronary artery disease History of coronary artery stent placement MD Dusty Walters Work Phone: History of right tot al knee replacement Felix Easley Comment on above: 2017 Tonsillectomy and adenoidectomy Dusty Walters Work Phone: Total abdominal hysterectomy with bilateral salpingo-oophorectomy Felix Easley Total colonoscopy Dusty barakat Work Phone: Plan of Treatment Date Care Activity Detail Author Start: 01-07-2024 FUV, Provider: Gadiel Merino, Status: Pen, Time: 11:00 AM [facility], Provider: Gadiel Merino, Status: Pen, Time: 11:00 AM [facility] 600 DO Work Phone: Start: 07-28-2023 Bacteria identified in Urine by Culture Urine Culture [facility] Start: 12-11-2022 FUV, Provider: Gadiel Merino, Status: Pen, Time: 10:30 AM [facility]UV, Provider: Gadiel Merino, Status: Pen, Time: 10:30 AM [facility] 250 DO Work Phone: Immunizations Immunization Date Immunization Notes Care Provider Fa [facility] 09-13-2022 SARS-CoV-2 (COVID-19 ) [id number] Mariangel Campbell [facility] 01-13-2022 Moderna COVID-19 Vac cine 100 MCG/0.5ML Intramuscular Suspension Dusty Walters Work Phone: [facility] Comment on above: Result Comment: 2022: [id number] 08-09-2021 Moderna COVID-19 Vac cine 100 MCG/0.5ML Intramuscular Suspension Dusty Walters Work Phone: [facility] 07-12-2021 Moderna COVID-19 Vac cine 100 MCG/0.5ML Intramuscular Suspension Dusty Walters Work Phone: [facility] 12-02-2016 pneumococcal polysaccharide vaccine, 23 valent Dusty Walters Work Phone: [facility] 250 DO Work Phone: 10-18-2016 pneumococcal conjuga te vaccine, 13 valent Dusty Walters Work Phone: [facility] Payers Date Payer Category Payer Unknown [id number] 2023 Self-pay [id number] 2009 Unknown [id number] 1961 Medicare [id number] 2.1 [id number] 1959 Unknown [id number] 2.1 [id number] 1955 Unknown [id number] 2.16. [id number] 1955 Unknown [id number] 2.16.84 [id number] 1955 Unknown [id number] 2.16.84 [id number] 1955 Unknown [id number] 2.16.84 [id number] 1955 Unknown [id number] 2.16.84 0.1.374842.3.579.2.593 1955 Unknown [id number] 2.16.84 0.1.078738.3.579.2.593 1953 Unknown [id number] 2.16.84 0.1.867510.3.579.2.593 1953 Unknown [id number] 2.16.84 0.1.447092.3.579.2.593 1953 Unknown [id number] 2.16.84 0.1.874189.3.579.2.593 1953 Unknown [id number] 2.16.84 0.1.431925.3.579.2.593 1953 Unknown [id number] 2.16.84 0.1.639741.3.579.2.593 1953 Unknown [id number] 2.16.84 0.1.459026.3.579.2.593 1953 Unknown [id number] 2.16.84 0.1.669411.3.579.2.593 1953 Unknown [id number] 2.16.84 0.1.889547.3.579.2.593 1953 Unknown [id number] 2.16.8 40.1.671223.3.579.2.727 1953 Unknown [id number] 2.16.8 40.1.679186.3.579.2.727 1953 Unknown [id number] 2.16.8 40.1.120163.3.579.2.727 1953 Unknown [id number] 2.16.8 40.1.502662.3.579.2.727 1953 Unknown [id number] 2.16.8 40.1.592537.3.579.2.727 1953 Unknown [id number] 2.16.8 40.1.966221.3.579.2.727 1953 Unknown [id number] 2.16.8 40.1.838066.3.579.2.727 1953 Unknown [id number] 2.16.8 40.1.370578.3.579.2.727 1953 Unknown [id number] 2.16.8 40.1.411085.3.579.2.727 1953 Unknown [id number] 2.16.8 40.1.450882.3.579.2.727 1953 Unknown [id number] 2.16.8 40.1.499782.3.579.2.727 1953 Unknown [id number] 2.16.8 40.1.929818.3.579.2.727 Medicaid [employer] [id number] Unknown Unknown [id number] 2.16.8 40.1.998047.3.579.2.531 Unknown [id number] 2.16.8 40.1.051227.3.579.2.531 Social History Date Type Detail Facility No alcohol use No alcohol use [facility] 250 DO Work Phone: Comment on above: 2 CUPS OF ICED TEA D AILY; Sex Assigned At [facility] Start: 05-16-2023 End: 11-21-2023 Tobacco smoking status Never smoked tobacco (finding) [facility] Tobacco smoking status Never [facility] Start: 1955 Sex Assigned At Female F [facility] Medical Equipment Procedure Code Equipment Code Equipment [...] to inject insulin as directed. Dx E10.42, [facility] [place], Supply Start: 02-19-2023 CL STENT AURORA 3.0 X 18 FDA Start: 06-29-2018 CL STENT AURORA 3.5 X 15 FDA Start: 06-29-2018 [id number] FDA Start: 04-18-2020 Drug-eluting cor onary artery stent, jzl-axzzcgovucdii-zxwh larry-coated ()[id number] FDA Start: 04-18-2020 Drug-eluting cor onary artery stent, ggl-mnammalvsktrh-wwkf larry-coated ()[id number] FDA Start: 04-18-2020 CL STENT AURORA 3.0 X 18 FDA Start: 06-29-2018 CL STENT AURORA 3.5 X 15 FDA Start: 06-29-2018 [id number] FDA Start: 04-18-2020 [facility]tion, See Instructions, 300 pen needle(s), 3, BD ultra fine pen needles 31G X 3/16. Use to inject insulin as directed. Dx E10.42, [facility] [place], Supply Start: 02-19-2023 [facility] Prescri ption, See Instructions, 300 pen needle(s), 3, BD ultra fine pen needles 31G X 3/16. Use to inject insulin as directed. Dx E10.42, [facility], Supply Start: 02-19-2023 Functional Status Date Assessment Result Facility 11-21-2023 Functional Status N/A [facility] Clinical Notes 06-01-2018 to 11-21-2023 Note Date & Type Note Facility 11-21-2023 Hospital Discharg e instructions Patient Education 11/21/2023 11:21:23 Urinary Incontinence Urinary Incontinence Urinary incontinence refers to a condition in which a person is unable to control where and when to pass urine. A person with this condition will urinate involuntarily. This means that the person urinates when he or she does not mean to. What are the causes? This condition may be caused by: Medicines. Infections. Constipation. Overactive bladder muscles. Weak bladder muscles. Weak pelvic floor muscles. These muscles provide support for the bladder, intestine, and, in women, the uterus. Enlarged prostate in men. The prostate is a gland near the bladder. When it gets too big, it can pinch the urethra. With the urethra blocked, the bladder can weaken and lose the ability to empty properly. Surgery. Emotional factors, such as anxiety, stress, or post-traumatic stress disorder (PTSD). Spinal cord injury, nerve injury, or other neurological conditions. Pelvic organ prolapse. This happens in women when organs move out of place and into the vagina. This movement can prevent the bladder and urethra from working properly. What increases the risk? The following factors may make you more likely to develop this condition: Age. The older you are, the higher the risk. Obesity. Being physically inactive. and childbirth. Menopause. Diseases that affect the nerves or spinal cord. Long-term, or chronic, coughing. This can increase pressure on the bladder and pelvic floor muscles. What are the signs or symptoms? Symptoms may vary depending on the type of urinary incontinence you have. They include: A sudden urge to urinate, and passing urine involuntarily before you can get to a bathroom (urge incontinence). Suddenly passing urine when doing activities that force urine to pass, such as coughing, laughing, exercising, or sneezing (stress incontinence). Needing to urinate often but urinating only a small amount, or constantly dribbling urine (overflow incontinence). Urinating because you cannot get to the bathroom in time due to a physical disability, such as arthritis or injury, or due to a communication or thinking problem, such as Alzheimer's disease (functional incontinence). How is this diagnosed? This condition may be diagnosed based on: Your medical history. A physical exam. Tests, such as: ?Urine tests. ?X-rays of your kidney and bladder. ?Ultrasound. ?CT scan. ?Cystoscopy. In this procedure, a health care provider inserts a tube with a light and camera (cystoscope) through the urethra and into the bladder to check for problems. ?Urodynamic testing. These tests assess how well the bladder, urethra, and sphincter can store and release urine. There are different types of urodynamic tests, and they vary depending on what the test is measuring. To help diagnose your condition, your health care provider may recommend that you keep a log of when you urinate and how much you urinate. How is this treated? Treatment for this condition depends on the type of incontinence that you have and its cause. Treatment may include: Lifestyle changes, such as: ?Quitting smoking. ?Maintaining a healthy weight. ?Staying active. Try to get 150 minutes of moderate-intensity exercise every week. Ask your health care provider which activities are safe for you. ?Eating a healthy diet. ?Avoid high-fat foods, like fried foods. ?Avoid refined carbohydrates like white bread and white rice. ?Limit how much alcohol and caffeine you drink. ?Increase your fiber intake. Healthy sources of fiber include beans, whole grains, and fresh fruits and vegetables. Behavioral changes, such as: ?Pelvic floor muscle exercises. ?Bladder training, such as lengthening the amount of time between bathroom breaks, or using the bathroom at regular intervals. ?Using techniques to suppress bladder urges. This can include distraction techniques or controlled breathing exercises. Medicines, such as: ?Medicines to relax the bladder muscles and prevent bladder spasms. ?Medicines to help slow or prevent the growth of a man's prostate. ?Botox injections. These can help relax the bladder muscles. Treatments, such as: ?Using pulses of electricity to help change bladder reflexes (electrical nerve stimulation). ?For women, using a medical collections specialist to prevent urine leaks. This is a small, tampon-like, disposable device that is inserted into the urethra. ?Injecting collagen or carbon beads (bulking agents) into the urinary sphincter. These can help thicken tissue and close the bladder opening. ?Surgery. Follow these instructions at home: Lifestyle Limit alcohol and caffeine. These can fill your bladder quickly and irritate it. Keep yourself clean to help prevent odors and skin damage. Ask your health care provider about special skin creams and cleansers that can protect the skin from urine. Consider wearing pads or adult diapers. Make sure to change them regularly, and always change them right after experiencing incontinence. General instructions Take plim-fci-dvrkoto and prescription medicines only as told by your health care provider. Use the bathroom about every 3 4 hours, even if you do not feel the need to urinate. Try to empty your bladder completely every time. After urinating, wait a minute. Then try to urinate again. Make sure you are in a relaxed position while urinating. If your incontinence is caused by nerve problems, keep a log of the medicines you take and the times you go to the bathroom. Keep all follow-up visits. This is important. Where to find more information National [place] of Diabetes and Digestive and Kidney Diseases: www.niddk.nih.gov [place] [employer]: www.urologyhealth.org Contact a health care provider if: You have pain that gets worse. Your incontinence gets worse. Get help right away if: You have a fever or chills. You are unable to urinate. You have redness in your groin area or down your legs. Summary Urinary incontinence refers to a condition in which a person is unable to control where and when to pass urine. This condition may be caused by medicines, infection, weak bladder muscles, weak pelvic floor muscles, enlargement of the prostate (in men), or surgery. Factors such as older age, obesity, and childbirth, menopause, neurological diseases, and chronic coughing may increase your risk for developing this condition. Types of urinary incontinence include urge incontinence, stress incontinence, overflow incontinence, and functional incontinence. This condition is usually treated first with lifestyle and behavioral changes, such as quitting smoking, eating a healthier diet, and doing regular pelvic floor exercises. Other treatment options include medicines, bulking agents, medical devices, electrical nerve stimulation, or surgery. This information is not intended to replace advice given to you by your health care provider. Make sure you discuss any questions you have with your health care provider. Document Revised: 06/23/2021 Document Reviewed: 06/23/2021 [employer] Patient Education 2022 [employer]. Follow Up Care 09/03/2023 10:14:29 With:FARTUN MCCOLLUM, BRIGIDA Seals, URL Address: [address] [address] [phone] When: Unknown [facility] 07-02-2023 Evaluation note Encounter Date Diagnosis Assessment [...] obesity (ICD-10 - E66.01) advised weight loss [facility] Other 07-31-2023 Evaluation note* Encounter Date Diagnosis [...] pain of left shoulder (ICD-10 - M25.512) [facility] Other 06-15-2023 Evaluation + Plan note Diagnostic Tests Pending * Urine Culture 05/16/23 [facility]01-17-2023 Evaluation note* Encounter Date Diagnosis Assessment Notes Treatment Notes Treatment Clinical Notes Dec, Dislocation of right shoulder joint, subsequent encounter (ICD-10 - S43.004D) Patient instructed on gentle motion and strength exercise. We will consider an MRI of the shoulder to rule out a rotator cuff tear, if patient has increased pain. We will f/u in 6-8 weeks, or sooner if patient needs [facility] Other 12-20-2022 Evaluation note* Encounter Date Diagnosis [...] age range than in a younger person. [facility] Other 11-29-2022 Evaluation note* Encounter Date Diagnosis [...] follows with her PCP for hyperlipidemia management [facility] Other [id number] NotePROCEDURE: XR SHOULDER LT 2V or > HISTORY: Pain of left shoulder joint COMPARISON: None. FINDINGS: BONES:No fracture, dislocation, bone lesion. Narrowing and mild degenerative changes of the acromioclavicular joint. SOFT TISSUES:No visible soft tissue swelling. EFFUSION:None visible. OTHER: Negative. IMPRESSION: 1. No acute bone abnormality. Electronically authenticated by: ADAMS RAGSDALE Date: 2022-08-27 21:59[facility]09-26-2022 NotePROCEDURE: XR FEMUR RT HISTORY: Pain in right leg after falling COMPARISON: None. FINDINGS: BONES:Mild degenerative changes of hip joint. Right knee replacement. No fracture or dislocation. SOFT TISSUES:No visible soft tissue swelling. EFFUSION:None visible. OTHER: Negative. IMPRESSION: 1. No acute bone abnormality. Electronically authenticated by: ADAMS RAGSDALE Date: 2022-08-27 21:56[facility]09-26-2022 NotePROCEDURE: XR ELBOW RT MIN 3 VIEWS, XR HUMERUS RT MIN 2 V HISTORY: Elbow joint pain after falling COMPARISON: None. FINDINGS: BONES:No fracture, dislocation, bone lesion. Degenerative changes of the acromioclavicular joint. SOFT TISSUES:No visible soft tissue swelling. EFFUSION:None visible. OTHER: Negative. IMPRESSION: 1. No acute bone abnormality the right humerus or elbow joint. Electronically authenticated by: ADAMS RAGSDALE Date: 2022-08-27 21:53[facility]09-26-2022 NotePROCEDURE: XR ELBOW RT MIN 3 VIEWS, XR HUMERUS RT MIN 2 V HISTORY: Elbow joint pain after falling COMPARISON: None. FINDINGS: BONES:No fracture, dislocation, bone lesion. Degenerative changes of the acromioclavicular joint. SOFT TISSUES:No visible soft tissue swelling. EFFUSION:None visible. OTHER: Negative. IMPRESSION: 1. No acute bone abnormality the right humerus or elbow joint. Electronically authenticated by: ADAMS RAGSDALE Date: 2022-08-27 21:53[facility]06-14-2022 Evaluation note* Encounter Date Diagnosis Assessment Notes [...] Hyperlipidemia, unspecified hyperlipidemia type (ICD-10 - E78.5) [facility] Other 07-01-2018 History general Narrative - Reported* Type Description Date Medical History guillan-barre 2002 Medical History DM Medical History shingles Medical History MS 06/2018 Medical History heart attack Medical History PARESTHESIA Medical History [place] Medical History MACROGLOSSIA Surgical History back surgery 2011 Surgical History meniscus repair left knee Surgical History hysterectomy 2016 Surgical History 2 heart stents 06/2018 Surgical History right TKA 03/04/18 Hospitalization History see above [facility] Other Evaluation + Plan note Future Appointments Appointment Date:11/21/2023 10:30:00 AM Scheduled Provider:BRIGIDA WILLOUGHBY PA-C Location:[facility] Appointment [facility]O [facility] Future Appointments Appointment Date:02/24/2024 10:15:00 AM Scheduled Provider:Felix Easley MD [facility] Appointment Type:FM Open Appointment Date:02/27/2024 11:15:00 AM Scheduled Provider:BRIGIDA WILLOUGHBY PA-C Location:[facility] Appointment Type:URO Office Visit [facility] Evaluation noteNo InformationNort Aptera Other evaluation noteNo assessment information available [facility] Work Phone: History of Present illness Narrative* [...] to lose 10-12 pounds by next time [facility] 250 DO Work Phone: History of Present [...] to lose 10-12 pounds by next time [facility] 600 DO Work Phone: Hospital course Narrative No data available for this section [facility] No data available for this section [facility] No data available for this section [facility] Summary Purpose Family History No Family History [...] section and content) DATE CREATED AUTHOR [facility]/2021 [facility] DATE CREATED AUTHOR AUTHOR'S ORGANIZ ATION 04/07/2023 [facility] [place] DATE CREATED AUTHOR AUTHOR'S ORGANIZ ATION 04/07/2023 [employer] DATE CREATED AUTHOR AUTHOR'S ORGANIZ ATION 05/11/2023 [facility] DATE CREATED AUTHOR AUTHOR'S ORGANIZ ATION 08/08/2023 [facility] DATE CREATED AUTHOR AUTHOR'S ORGANIZ ATION 12/10/2023 [facility] REASON FOR VISIT (unrecogniz ed section and [...] BE BASED ON THE PRIMARY CLINICAL RECORDS. [facility]. provides no warranty or guarantee of the accuracy or completeness of information in this document.
[2023-12-13 08:31] LABS: Bilirubin Urine NEGATIVE (NEGATIVE); Blood Urine LARGE (NEGATIVE); Clarity Urine CLEAR (CLEAR); Color Urine YELLOW (YELLOW); Glucose Urine UA NEGATIVE (NEGATIVE); Ketones Urine NEGATIVE (NEGATIVE); Leukocyte Esterase Urine TRACE (NEGATIVE); Nitrite Urine NEGATIVE (NEGATIVE); Protein Urine TRACE mg/dL (NEG/TRACE); Specific Gravity Urine >=1.030 (1.005-1.025); Urobilinogen Urine 0.2 EU/dL (0.2-1.0); pH Urine 5.5 (5.0-9.0)
[2023-12-13 08:43] LABS: Urine Microscopic Indicated YES
[2023-12-13 08:53] LABS: Bacteria Urine SMALL #/HPF (NONE SEEN); Cast Seen? NONE SEEN #/LPF (NONE SEEN); Crystals Seen? None Seen #/HPF (None Seen); Mucus Urine TRACE (NONE SEEN); Squamous Epithelial Cell Urine MODERATE #/LPF (NONE/RARE)
== END 2023-12-13 08:14 | disposition home or self-care (01) ==
LOC: LAB 08:14
PROVIDERS: PCP Family Medicine; Visit Provider Family Medicine
DX: N39.0 Urinary tract infection, site not specified (principal)
CPT/HCPCS: 81001; 87086; 87150; 87186

== ENCOUNTER 2024-01-20 15:00 | Outpatient (OUT) | payer MEDICARE, OTHER, SELFPAY | END 2024-01-20 15:01 | disposition home or self-care (01) | LOC: SLEEP 15:00 | PROVIDERS: PCP Psychiatry & Neurology Neurology; Visit Provider Psychiatry & Neurology Neurology | DX: G47.33 Obstructive sleep apnea (adult) (pediatric) (principal); G47.11 Idiopathic hypersomnia with long sleep time | CPT/HCPCS: 95806 ==

== ENCOUNTER 2024-02-14 21:18 | Emergency (ER) | payer MEDICARE, OTHER, SELFPAY ==
[2024-02-14 21:20] VITALS: BP 150/100; PULSE 71; RESP 22; TEMP 37.1; O2SAT 96; BMI 38.4
--- OUTSIDE RECORDS SUMMARY | 2024-02-14 21:30 | XMS_ITS | CCD ---
Author Name Unknown Address [address] [place] [address] Organization [facility] Care Team Providers Care Producer Arborist Manager Name Role Phone Dusty Walters Unavailable Unavailable Unavailable Chip Craft Unavailable Lizandro Martins Unavailable Dr. Dusty Walters Primary Care Unavailab Cinthia Maxwell Attending Unavailable Cinthia Vazquez Referring Unavailable WALTERS ., DR DUSTY Seals [...] DR DUSTY Seals Primary Care Unavailable DEEPA ., DONELL HAMM Consulting Unavailsharri GERMAN .CONNER Admitting Unavailable NIALL CELIS Consulting Unavailable FLORIN ZHONG Consulting Unavailable THONY JOHNSTON Consulting Unavailable WALTERS ., DR DUSTY Seals Primary Care Unavailable ZIEBGORDY, DR ADAMS Montesinos Consulting Unavailable MARKER ., DR ZAPATA Attending Unavailable MARKER ., DR ZAPATA Admitting Unavailable MARKER ., DR ZAPATA Consulting Unavailable WALTERS ., DR DUSTY Seals Primary Care Unavailable ROSSI, DR AJ Montesinos Consulting Unavailable ROSSI, DR AJ Montesinos Attending Unavailable ROSSI, DR AJ Montesinos Admitting Unavailable THONY CLARK Consulting Unavailable WALTERS ., DR DUSTY Seals Primary Care Unavailable PAY ., DR NOBLE Attending Unavailable ROSSI, DR AJ Montesinos Consulting Unavailable PAY ., DR NOBLE Admitting Unavailable PATTIE ., OSMEL Consulting Unavailable BEJ, AJ Attending Unavailable WALTERS ., DR DUSTY [...] ., DR DUSTY Seals Primary Care Unavailable HOLMAN, DR NIALL Underwood Consulting Unavailable BEJ, AJ Admitting Unavailable WALTERS ., DR DUSTY Seals Primary Care Unavailable BEJ, AJ Consulting Unavailable BEJ, AJ Attending Unavailable Jose Snow Primary Care Physician Brigida George Unavailable Tanika Lopez Unavailable MD Dusty Walters Primary Care Provider [phone] MD Lizandro Martins Attending Provider [phone] DARRICK Pal Attending Provider Anjana Pal Unavailable Lizandro Martins Admitting Unavailable Eliezer, Lizandro Attending Unavailable Dusty Walters Primary Care Unavailable Anjana Pal Admitting Unavailable Anjana Pal Attending Unavailable Dusty Walters Primary Care Unavailable Jose Snow MD Primary Care Provider CINTHIA VAZQUEZ Attending Unavailable JOSE SNOW Primary Care Unavailable Jose Snow Attending Unavailable Mariangel Campbell Attending Unavailable Jose Snow Attending Unavailable Jose Snow Attending Unavailable AdrianMariangel L Attending Unavailable FARTUNBRIGIDA E Attending Unavailable BAKHOUS, AZIZ Referring Unavailable FARTUN, BRIGIDA E Attending Unavailable FARTUN, BRIGIDA E Referring Unavailable FARTUN, BRIGIDA E Attending Unavailable FARTUN, BRIGIDA E Attending Unavailable BAKHOUS, AZIZ Referring Unavailable Elabozena Magui DhillonStephanie Attending Unavailable Joe BOOTH Admitting Unavailable Joe BOOTH Attending Unavailable Joe BOOTH Referring Unavailable Jose Snow EStephanie Admitting Unavailable Jose Snow EStephanie Attending Unavailable Adrian, Mariangel L Admitting Unavailable Adrian, Mariangel L Attending Unavailable Jose Snow EStephanie Attending Unavailable Adrian, Mariangel L Attending Unavailable Allergies Allergy Classification Reported Allergen(s) Allergy Type Date of Onset Reaction(s) Facility (7 sources) Sulfonamides (Antibiotic); Translations: [Sulfa Drugs] Allergy to drug (finding) Unknown (qualifier value) [facility] (2 sources) FLU; Translations: [FLU] Allergy to drug (finding) [facility] 250 DO Work Phone: (9 sources) Sulfonamides (Antibiotic) Drug allergy Unknown [facility] Other (9 sources) Influenza Vac Recom CARREON Quad PF Drug allergy Unknown [facility] Other (2 sources) Sulfonamides (Antibiotic) Drug allergy (disorder) [facility] (2 sources) Flu Vaccine [id number] (3 yr +) Drug allergy (disorder) 01-18-20 16 [facility] (5 sources) Sulfonamides (Antibiotic); Translations: [Sulfa (Sulfonamide Antibiotics)] Allergy to substance 03-31-20 19 Unknown [facility] (3 sources) Influenza Virus Vaccines; Translations: [Influenza Virus Vaccines] Allergy to substance 03-31-20 19 Hx. [place] ; told no flu vaccines [facility] (3 sources) influenza A virus A//[id number] (H1N1) antigen / influenza A virus A//[id number] (H3N2) antigen / influenza B virus B/[facility] antigen / influenza B virus B/ antigen; Translations: [influenza virus vaccine] Drug Allergy [facility] Comment on above: contraindicated due to guilian barre (2 sources) Flu Medicine; Translations: [FLU MEDICINE] Drug Allergy 12-16-19 24 Unknown [facility] (1 source) influenza virus vaccine, inactivated; Translations: [influenza virus vaccine, inactivated] Propensity to adverse reactions (disorder) [facility] Medications Current Medications Medication Drug Class(es) Dates Sig (Normalized) Sig (Original) acetaminophen 500 mg oral tablet (20 sources) Start: 05-16-2023 take 2 tablets by [...] 1 tablet by fermín th twice daily acetaminophen (Tylenol) 500 mg tablet Take 1 tablet (500 mg) by mouth 2 times a day. 0 Active acetaminophen 325 mg / oxyCODONE hydrochloride 5 mg oral tablet (18 sources) Opioid Agonist Start: 05-16-2023 take 1 tablet by mouth every six hours for pain acetaminophen-oxycodone 300 mg-5 mg oral tablet 1 tab(s), Oral, q6hr for pain, Refill(s) 0 Start Date: 05/16/23 Status: Ordered Start: 12-25-2021 End: 01-09-2024 take 1 tablet by mouth every six hours as needed for pain Percocet 5 mg-325 mg oral tablet 1 tab(s), Oral, q6hr, Refill(s) 0, as needed for pain Start Date: 11/20/23 Status: Ordered Start: 03-06-2018 End: 06-27-2018 take 2 tablets [...] Alpha Lipoic Acid 600 mg oral capsule (3 sources) Start: 023 take 1 capsule by [...] day Not-Taking atorvastatin 80 mg oral tablet (20 sources) HMG-CoA Reductase Inhibitor Start: 03-09-2022 take 1 tablet by mouth once daily atorvastatin 80 mg Tab 80 mg = 1 tab(s), Oral, Daily, Refills(s) 0 Start Date: 05/16/23 Status: Ordered Start: 06-30-2018 End: 04-09-2019 take 80 mg by mouth once daily in the evening Atorvastatin Active 80 MG PO Every evening April 09, 2019 12:00am biotin 10 mg oral tablet (19 sources) Start: 09-09-2023 take 1 tablet by mouth twice daily biotin 10 mg oral tablet 10 mg = 1 tab(s), Oral, BID, # 30 tab(s), Refills(s) 0 Start Date: 09/09/23 Status: Ordered Start: 06-27-2018 End: 04-09-2019 take 05197 ug by mouth twice daily Biotin Discontinued 60942 MCG PO Twice daily June 27, 2018 12:00am April 09, 2019 9:42am Start: 02-18-2018 End: 03-13-2018 take 1000 ug by mouth twice daily Biotin Discontinued 1000 MCG PO Twice daily February 18, 2018 12:00am March 13, 2018 10:19am biotin 1,000 mcg tablet,chewable Chew 1 tablet once daily. 0 Active take 1 tablet by fermín th twice daily Biotin 98963 MCG 1 tablet Orally twice a day Active take 1 tablet by fermín th every twelve hours Biotin 1000 MCG 1 tablet Orally twice a day Active calcium carbonate 750 mg chewable tablet (19 sources) Start: 09-09-2023 Tums Chewy Bit es 750 mg oral tablet, chewable 1,500 mg = 2 tab(s), Chewed, Bedtime, Refills(s) 0 Start Date: 09/09/23 Status: Ordered Start: 04-09-2019 take 1000 mg by mout h twice daily Calcium Carbonate Active 1000 MG PO Twice daily April 09, 2019 12:00am Start: 03-13-2018 End: [...] Active cetirizine hydrochloride 5 mg oral tablet (20 sources) Histamine-1 Receptor Antagonist Start: 05-16-2023 take [...] 1 tablet by fermín th once daily cetirizine (ZyrTEC) 10 mg tablet Take 1 tablet (10 mg) by mouth once daily. 0 Active cholecalciferol 0.025 mg oral tablet (20 [...] 1 tablet by fermín th once daily cholecalciferol (Vitamin D-3) 25 MCG (1000 UT) tablet Take 1 tablet (1,000 Units) by mouth once daily. 0 Active take 1 tablet by fermín th every twenty-four hours Vitamin D (Cholecalciferol) 25 MCG (1000 UT) 1 tablet Orally Once a day Active ciprofloxacin 500 mg oral tablet (2 sources) Quinolone Antimicrobial Start: 11-26-2023 Cipro 500 mg Tab See Instructions, Take 1 tab day prior to procedure and 1 tab day of procdure - afterwards, # 2 tab(s), Refills(s) 0, Pharmacy: [facility], 160, cm, 11/21/23 10:42:00 EST, Height/Length Dosing, 138, kg, 11/21/23 10:42:00 EST, Weight Dosing Start Date: 11/26/23 Status: Ordered Start: 05-16-2023 End: 05-23-2023 take 1 tablet by mouth every twelve hours Cipro 500 mg Tab 500 mg = 1 tab(s), Oral, q12hr, X 7 day(s), # 14 tab(s), Refills(s) 0, Pharmacy: [facility], 158, cm, 05/16/23 14:43:00 EDT, Height/Length Dosing, 130.6, kg, 05/16/23 14:43:00 EDT, Weight Dosing Start Date: 05/16/23 Stop Date: 05/23/23 Status: Ordered clopidogrel 75 mg oral tablet (20 sources) P2Y12 Platelet Inhibitor Start: 03-05-2022 take 1 tablet by mouth once daily Plavix 75 mg Tab 75 mg = 1 tab(s), Oral, Daily, Refills(s) 0 Start Date: 05/16/23 Status: Ordered Start: 03-16-2019 End: 04-19-2020 take 75 mg by mouth once daily Clopidogrel Discontinue d 75 MG PO Daily April 09, 2019 12:00am April 19, 2020 2:56pm cranberry preparation 450 mg oral tablet (13 sources) Non-Standardized Food Allergenic Extract, Non-Standardized Plant Allergenic Extract Start: 05-16-2023 take 1 tablet by mouth once daily Cranberry oral tablet See Instructions, Refill(s) 0, 450mg orally once a day Start Date: 05/16/23 Status: Ordered Start: 05-16-2023 Cranberry oral tablet Refill(s) 0 Start Date: 05/16/23 Status: Ordered Cranberry Concen trate 500 MG as directed Orally Active D-MANNOSE ORAL (1 source) D-MANNOSE ORAL Take by mouth. 0 Active diclofenac sodium 0.01 mg/mg topical gel (15 sources) Nonsteroidal Anti-inflammatory Drug Start: 9 apply 1 g topically twice daily Diclofenac Sodium Active 1 GM TOPICAL Twice daily April 09, 2019 12:00am Start: 03-16-2019 [...] % Gel Discontinued 1 GM TOPICAL Daily March 13, 2018 12:00am March 31, 2019 3:57pm to be used 1 - 2 times daily Start: 02-18-2018 End: 03-13-2018 apply 1 g topically once daily Diclofenac Sodium Disco ntinued 1 GM TOPICAL Daily February 18, 2018 12:00am March 13, 2018 10:19am docusate sodium 100 mg oral capsule (20 sources) Start: 05-16-2023 take 1 capsule by [facility] once daily as needed for constipation [...] 10:41am donepezil hydrochloride 10 mg oral tablet (16 sources) Start: 02-26-2022 take 1 tablet by mouth twice daily donepezil (Aricept) 10 mg tablet Take 1 tablet (10 mg) by mouth 2 times a day. 0 02/26/2022 Active 0.5 ml dulaglutide 3 mg/ml auto-injector (15 sources) GLP-1 Receptor Agonist Start: 09-09-2023 inject 1.5 mg by subcutaneous injection every week Trulicity Pen 1.5 mg/0.5 mL subcutaneous solution 1.5 mg, SubCutaneous, qWeek, # 12 EA, Refills(s) 0, Pharmacy: [facility], 158, cm, 09/09/23 16:01:00 EDT, Height/Length Dosing, 130.6, kg, 09/09/23 16:01:00 EDT, Weight Dosing Start Date: 09/09/23 Status: Ordered Start: 01-02-2023 Trulicity Pen 1.5 mg/0.5 mL subcutaneous solution Refills(s) 0 Start Date: 05/16/23 Status: Ordered famotidine 20 mg oral tablet (20 sources) Histamine-2 Receptor Antagonist Start: 06-27-2018 End: 04-09-2019 take 20 mg by mouth twice daily Famotidine Active 20 MG PO Twice daily 60 April 09, 2019 12:00am Start: 06-03-2018 take 1 tablet by fermín th once daily at bedtime famotidine 20 mg Tab 20 mg = 1 tab(s), Oral, Once a day (at bedtime), Refills(s) 0 Start Date: 09/09/23 Status: Ordered Start: 02-18-2018 End: 06-27-2018 take 40 mg by mouth once daily at bedtime Famotidine Discontinued 40 MG PO Daily at bedtime March 13, 2018 12:00am June 27, 2018 10:44am fluconazole 150 mg oral tablet (5 sources) Azole Antifungal Start: 04-01-2023 take 1 tablet by mouth once Diflucan 150 mg Tab 150 mg = 1 tab(s), Oral, Once, # 1 tab(s), Refills(s) 0, Pharmacy: [facility] Start Date: 04/01/23 Status: Ordered Freestyle Bang 2 sensors (3 sources) Start: 07-15-2023 Freestyle LIbr e 2 sensors Freestyle Bang 2 sensors, See Instructions, 1 EA, 4, One box of sensors, Supply Start Date: 07/15/23 Status: Ordered furosemide 40 mg oral tablet (19 sources) Loop Diuretic Start: 01-02-2023 take 1 tablet by mouth once daily [...] oral tablet (20 sources) Anti-epileptic Agent Start: 03-11-2022 take 1 tablet by mouth three times [...] afternoon and bedtime. take 1 capsule by [facility] every eight hours Gabapentin 300 MG 1 capsule Orally Three times a day Active glimepiride 2 mg oral tablet (20 sources) Sulfonylurea Start: 02-08-2022 take 1 tablet by mouth once daily glimepiride 2 mg Tab 2 mg = 1 tab(s), Oral, Daily, Refills(s) 0 Start Date: 05/16/23 Status: Ordered Start: 03-16-2019 End: 04-09-2019 take 2 mg by mouth once daily in the morning Glimepiride Active 2 MG PO Every morning April 09, 2019 12:00am glucosamine hydrochloride 1500 mg oral tablet (3 sources) Start: 09-09-2023 take 2 tablets by mouth once daily at bedtime glucosamine hydrochloride 1500 mg oral tablet See Instructions, Refill(s) 0, 2 tab(s) Oral Daily at bedtime Start Date: 09/09/23 Status: Ordered hydrocortisone 25 mg/ml topical cream (5 sources) Corticosteroid Start: 11-20-2023 hydrocortisone Top 2.5% Crm See Instructions, Refill(s) 0, apply rectally twice daily as needed for hemorrhoids Start Date: 11/20/23 Status: Ordered Start: 09-09-2023 hydrocortisone 2.5% Rectal Crm w/Appl 1 teresa, Rectal, BID, 30 gram, Refill(s) 0, us as needed Start Date: 09/09/23 Status: Ordered hydrocortisone acetate 10 mg/ml / pramoxine hydrochloride 10 mg/ml rectal foam (1 source) Corticosteroid Start: 12-16-2023 Proctofoam HC rectal foam 1 teresa, Rectal, TID, 10 gram, Refill(s) 0, [facility], 160, cm, 12/16/23 10:57:00 EST, Height/Length Dosing, 130, kg, 12/16/23 10:53:00 EST, Weight Dosing Start Date: 12/16/23 Status: Ordered hydrOXYzine pamoate 25 mg oral [...] insulin aspart, human 100 unt/ml pen injector (12 sources) Insulin Analog Start: 05-16-2023 Insulin Aspart FlexPen 100 units/mL injectable solution See Instructions, test ac and hs and cover 150-200 42u, 210-250 4u, 251-300 6u, 301-350 8u, 351-400 10u, 401-1000 12u, Also inject 8u at lunch abd 10u at dinner regardless of readings and follow scale rest of time, Refills(s) 0 Start Date: 05/16/23 Status: Ordered Start: 02-20-2023 End: 01-09-2024 NovoLOG Flexpen U-100 Insuli n 100 unit/mL (3 mL) pen Start: 04-09-2019 Insulin Aspart U-100 (Novolog Flexpen U-100 Insulin) 100 unit/mL (3 mL) Insulin Pen Active 0 UNITS SUBCUT 3X/Day with meals and bedtime April 09, 2019 12:00am Start: 03-13-2018 End: 06-27-2018 Insulin Aspart U-100 (Novolo g Flexpen U-100 Insulin) 100 unit/mL Insulin Pen Discontinued 0 UNITS SUBCUT 3X/Day with meals and bedtime March 13, 2018 12:00am June 27, 2018 10:42am insulin aspart ( NovoLOG U-100 Insulin aspart) 100 unit/mL injection Inject under the skin 3 times a day before meals. Take as directed per insulin instructions. 0 Active NovoLOG FlexPen 100 UNIT/ML as directed Subcutaneous [...] injector (20 sources) Insulin Analog Start: 05-16-2023 Thelma Muniz en 100 units/mL subcutaneous solution See Instructions, 30 unit(s) at bedtime, Refills(s) 0 Start Date: 05/16/23 Status: Ordered Start: 05-16-2023 Basaglar KwikP en 100 units/mL subcutaneous solution Refills(s) 0 Start Date: 05/16/23 Status: Ordered Start: 02-18-2023 End: 01-09-2024 Basaglar KwikPen U-100 Insul in 100 unit/mL (3 mL) pen Start: 03-16-2019 End: 04-09-2019 inject 20 [IU] [...] 9:49am loperamide hydrochloride 2 mg oral tablet (3 sources) Opioid Agonist Start: 09-09-2023 take 1 [...] 10:43am memantine hydrochloride 10 mg oral tablet (16 sources) P-bjoytw-K-aspartate Receptor Antagonist Start: 01-29-2022 take 1 tablet by mouth twice daily memantine (Namenda) 10 mg tablet Take 1 tablet (10 mg) by mouth 2 times a day. 0 01/29/2022 Active Milk of Magnesia (3 sources) Start: 09-09-2023 take 2400 mg by mouth once daily as needed for constipation Milk of Magnesia 2,400 mg, Oral, Daily, as needed for constipation, Refills(s) 0 Start Date: 09/09/23 Status: Ordered 24 hr mirabegron 50 mg extended release oral tablet (2 sources) beta3-Adrenergic Agonist Start: 12-23-2023 take 50 mg by mouth once daily Myrbetriq 50 mg, Oral, Daily, Refills(s) 0 Start Date: 12/23/23 Status: Ordered MiraLax 17 GM/SCOOP (9 sources) [...] 13, 2018 12:00am June 27, 2018 10:44am nitrofurantoin, macrocrystals 25 mg / nitrofurantoin, monohydrate 75 mg oral capsule (1 source) Nitrofuran Antibacterial Start: 12-16-2023 End: 12-26-2023 take 1 capsule by mouth twice daily nitrofurantoin macrocrystals-monohydrate 100 mg Cap 100 mg = 1 cap(s), Oral, BID, X 10 day(s), # 20 cap(s), Refills(s) 0, Pharmacy: [facility], 160, cm, 12/16/23 10:57:00 EST, Height/Length Dosing, 130, kg, 12/16/23 10:53:00 EST, Weight Dosing Start Date: 12/16/23 Stop Date: 12/26/23 Status: Ordered nitroglycerin 0.4 mg sublingual tablet (9 sources) Nitrate Vasodilator Start: 04-19-2020 nitroglycerin (Nitrostat) 0.[address] 1 tablet (0.4 mg) under the tongue every 5 minutes if needed for chest pain. Report to the ER or call 911 after third dose. 0 03/12/2022 Active Normal saline (1 source) Saline Nasal Spr ay 0.65 % as directed Nasally Active ondansetron 4 mg oral tablet (5 sources) Serotonin-3 Receptor Antagonist Start: 05-16-2023 take 1 tablet by mouth every six hours ondansetron 4 mg Tab 4 mg = 1 tab(s), Oral, q6hr, Refills(s) 0 Start Date: 05/16/23 Status: Ordered take 2 tablets by [facility] every eight hours as needed ondansetron (Zofran) 4 mg tablet Take 2 tablets (8 mg) by mouth every 8 hours if needed for nausea or vomiting. 0 Active 24 hr oxybutynin chloride 15 mg extended release oral tablet (15 sources) Cholinergic Muscarinic Antagonist Start: 03-09-2022 End: 01-09-2024 take 1 tablet by mouth once daily oxybutynin XL (Ditropan-XL) 15 mg 24 hr tablet Take 1 tablet (15 mg) by mouth once daily. 0 03/09/2022 01/09/2024 Discontinued (Other) oxyCODONE hydrochloride 5 mg oral tablet (6 [...] therapy treat and evaluate, properly sized walker, (3 sources) Start: 08-20-2023 Physical therapy treat and evaluate, properly sized walker, Physical therapy treat and evaluate, properly sized walker,, See Instructions, 1 EA, 0, see above, Supply Start Date: 08/20/23 Status: Ordered POLYETHYLENE GLYCOL 3350 (3 sources) Osmotic Laxative Start: 09-09-2023 take 17 g by mouth once daily polyethylene glycol 3350 17 gm, Oral, Daily, Refill(s) 0, dissolve in 8ozs of water Start Date: 09/09/23 Status: Ordered prednisoLONE acetate 10 mg/ml ophthalmic suspension (1 source) Corticosteroid take 1 drop(s) into the eye(s) four times daily prednisoLONE acetate (Pred-Forte) 1 % ophthalmic suspension 1 drop 4 times a day. 0 Active PreserVision AREDS 2 (3 sources) Start: 09-09-2023 PreserVision AREDS 2 1 tab(s), Chewed, Daily, Refill(s) 0 Start Date: 09/09/23 Status: Ordered sennosides, halfway 8.6 mg oral tablet (2 sources) Start: 04-09-2019 take 2 tablets by mouth once daily Sennosides (Senna Lax) 8.6 mg Tablet Active 2 TAB PO DAILY@12 30 April 09, 2019 12:00am Sodium Chloride (3 sources) Start: 09-09-2023 Saline Mist 0.65% nasal [...] venlafaxine 150 mg extended release oral capsule (10 sources) Serotonin and Norepinephrine Reuptake Inhibitor Start: 01-02-2023 take 1 capsule by mouth once daily venlafaxine 150 mg Cap-ER 150 mg = 1 cap(s), Oral, Daily, Refills(s) 0 Start Date: 05/16/23 Status: Ordered vit C/E/Zn/coppr/lutei n/zeaxan (PRESERVISION AREDS-2 ORAL) (1 source) vit C/E/Zn/coppr/lutei n/zeaxan (PRESERVISION AREDS-2 ORAL) Take by mouth. 0 Active Vitamin B 12 500 MCG (9 sources) take 2 tablets by mouth once daily Vitamin B 12 500 MCG 2 tablet Orally Once a day Active Vitamin B12 1000 mcg Tab (3 sources) Start: 09-09-2023 take 1 tablet by mouth once daily Vitamin B12 1000 mcg Tab 1,000 mcg = 1 tab(s), Oral, Daily, Refills(s) 0 Start Date: 09/09/23 Status: Ordered Vitamin D-3 1000 UNIT (5 sources) take 1 capsule by mouth once daily Vitamin D-3 1000 UNIT 1 capsule Orally Once a day Active Vitamin D3 1000 intl units (25 mcg) Tab (3 sources) Start: 09-09-2023 take 1 tablet by mouth once daily Vitamin D3 1000 intl units (25 mcg) Tab 25 mcg = 1 tab(s), Oral, Daily, Refills(s) 0 Start Date: 09/09/23 Status: Ordered zinc oxide 0.2 mg/mg topical ointment (3 sources) Start: 09-09-2023 zinc oxide Top 20% [...] 09, 2019 9:42am Freestyle Bang 2 system (3 sources) Start: 07-15-2023 Freestyle Bang 2 system Freestyle Bang 2 system, See Instructions, 1 EA, 0, pt to check BS 4 times per day, Supply Start Date: 07/15/23 Status: Ordered Rwtywpml-Pejqk-Fyovy -Cf Borate (Lingorami) 750 mg-100 mg- 1.65 mg-108 mg Tablet (4 sources) Start: 06-27-2018 End: 04-09-2019 take 1 tablet by mouth once daily Cgnapubg-Xyrxk-Dwwp u-Cf Borate (Lingorami) 750 mg-100 mg- 1.65 mg-108 mg Tablet Discontinued 2 TAB PO Daily June 27, 2018 12:00am April 09, 2019 9:42am Start: 02-18-2018 End: 03-06-2018 take 1 tablet by mouth once daily Xixiiwmd-Bdfec-Jxunv-Cf Borate (SnapYeti) 750 mg-100 mg- 1.65 mg-108 mg Tablet Discontinued 2 TAB PO Daily February 18, 2018 12:00am March 06, 2018 12:28pm glyBURIDE 5 mg oral tablet (6 sources) Sulfonylurea Start: 02-18-2018 End: 03-16-2019 take 5 mg by mouth once daily Glyburide Discontinued 5 MG PO Daily June 27, 2018 10:44am March 16, 2019 2:26pm Home health physical therapy evaluatoin and treatment (3 sources) Start: 08-23-2023 Home health ph ysical therapy evaluatoin and treatment Home health physical therapy evaluatoin and treatment, See Instructions, 1 EA, 0, HH PT evaluation and treatment, Supply Start Date: 08/23/23 Status: Ordered HYLAN G-F 20 (20 sources) Start: 06-20-2017 [employer] Jun 6 mL Start: 06-13-2017 Synvisc Jun [...] DAILY. Quantity: 45 Refills: 3 Ordered: 12-Mar-2022 Cinthia Vazquez MD Start : 11-Mar-2022 Active Magnesium (2 [...] DAILY Quantity: 45 Refills: 3 Ordered: 12-Mar-2022 Cinthia Vazquez MD Start : 01-Mar-2022 Active Start: 06-30-2018 [...] 16, 2019 12:00am April 09, 2019 9:42am Vu-Kkh-Dvmum-Calcium Carb-K1 (Women's 50 Plus Daily Formula) 400 mcg-500 mg calcium-20 mcg Tablet (4 sources) Start: 06-27-2018 End: 03-16-2019 take 1 tablet by mouth once daily Qx-Tzn-Hnhyv-Calcium Carb-K1 (Women's 50 Plus Daily Formula) 400 mcg-500 mg calcium-20 mcg Tablet Discontinued 1 TAB PO Daily June 27, 2018 12:00am March 16, 2019 2:32pm Start: 02-18-2018 End: 03-13-2018 take 1 tablet by mouth once daily Ha-Heh-Grduy-Calcium Carb-K1 (Women's 50 Plus Daily Formula) 400 mcg-500 mg calcium-20 mcg Tablet Discontinued 1 TAB PO Daily February 18, 2018 12:00am March 13, 2018 10:20am Novolin L 100 UNIT/ML SUSP (1 source) Novolin L 100 UNIT/ML SUSP USE DIRECTED. Quantity: 0 Refills: 0 Ordered: 04-Apr-2023 DO Active nystatin [id number] unt/ml topical cream (2 sources) Polyene Antifungal Start: 11-20-20 apply 15 g topically once as needed nystatin Top 100,000 units/g Crm 15 gram See Instructions, Refill(s) 0, apply topically to affected area(s) per plan as needed Start Date: 11/20/23 Status: Ordered OT EVALUATION (3 sources) Start: 07-15-20 OT EVALUATION OT EVALUATION, See Instructions, 1 EA, 0, evaluate and treat better fitting wheel chair, Supply Start Date: 07/15/23 Status: Ordered polyethylene glycol 400 4 mg/ml / propylene glycol 3 mg/ml ophthalmic solution (2 sources) Start: 06-27-20 End: 04-09-20 Peg 400-Propylene Glycol (Pf) (Systane (Pf)) 0.4-0.3 % Dropperette Discontinued 1 DROPS OPHTHALMIC As Directed June 27, 2018 12:00am April 09, 2019 9:42am potassium chloride 20 meq extended release oral tablet (14 sources) Start: 09-09-20 take 1 tablet by [...] 9:42am thioctic acid 600 mg oral capsule (7 sources) Start: 06-27-2018 End: 04-09-2019 take 600 mg by mouth twice daily Alpha Lipoic Acid Discontinued 600 MG PO Twice daily June 27, 2018 12:00am April 09, 2019 9:42am Start: 02-18-2018 End: 03-06-2018 take 600 mg by mouth twice daily Alpha Lipoic Acid Discontinued 600 MG PO Twice daily February 18, 2018 12:00am March 06, 2018 12:28pm take 1 capsule by [facility] once daily alpha lipoic acid 600 mg capsule Take 1 capsule by mouth once daily. 0 Active ticagrelor 90 mg oral tablet (4 [...] mg vitamin b12 1 mg oral tablet (13 sources) Vitamin B12 Start: 03-16-2019 End: 04-09-2019 [...] 1 tablet by fermín th once daily cyanocobalamin, vitamin B-12, (Vitamin B-12) 1,000 mcg tablet extended release Take 1 tablet (1,000 mcg) by mouth once daily. 0 Active vitamin e 450 mg oral capsule [...] residential institution] 03-07-2018 Episodic Cancer of uterus (3 sources) Malignant neoplasm of uterus 09-04-2023 Chronic Chronic kidney disease (16 sources) Chronic kidney disease stage 3B ; Translations: [Chronic kidney disease, stage 3b] 03-07-2018 Chronic Coronary atherosclerosis and other heart disease (16 sources) Double coronary vessel disease; Translations: [Coronary atherosclerosis of unspecified type of vessel, [place] or graft] Onset: 08-29-2022 04-01-2019 Chronic Coronary atherosclerosis and other heart disease (6 sources) Patient post percutaneous transluminal coronary angioplasty; Translations: [Percutaneous transluminal coronary angioplasty status] Onset: 12-16-2023 01-09-2024 Episodic Deficiency and other anemia (1 source) [...] 11-09-2022 Chronic [facility] on above: [facility] Disorders of lipid metabolism (20 sources) Hyperlipidemia; Translations: [Other and unspecified hyperlipidemia] Onset: 05-15-2022 Resolved: 05-15-2022 Chronic Essential hypertension (20 sources) Essential hypertension; Translations: [Unspecified essential hypertension] Onset: 05-15-2022 Resolved: 05-15-2022 Chronic Comment on above: [facility] Fluid and electrolyte disorders (1 source) Hypokalemia Episodic Genitourinary symptoms and ill-defined conditions (16 sources) Incontinence without sensory awareness; Translations: [Urinary incontinence] Onset: 07-04-2022 Chronic Genitourinary symptoms and ill-defined conditions (10 sources) Dysuria; Translations: [Dysuria] Onset: 12-17-2022 Episodic Headache; including migraine (3 sources) Migraine 09-04-2023 Chronic Hypertension with complications [...] shoulder joint, subsequent encounter] Onset: 11-20-2022 Episodic Miscellaneous mental health disorders (1 source) Confusional state 12-16-2023 Chronic Mood disorders (3 sources) Major depression in full remission; Translations: [Single episode of major depression in full remission] 09-09-2023 Chronic Mood disorders (4 sources) Mood disorders; Translations: [DEPRESSION UNSPECIFIED] Onset: 11-09-2022 Nonspecific chest pain (6 sources) Chest pain; Translations: [Chest pain, unspecified] Onset: 08-27-2022 Episodic Nutritional deficiencies (3 sources) Vitamin D deficiency 09-04-2023 Chronic Occlusion [...] left artificial knee joint] 03-31-2019 Chronic Other connective tissue disease (1 source) Recurrent falls 12-16-2023 Episodic Other diseases of bladder and urethra (1 source) Male urethral stricture; Translations: [Unspecified urethral stricture, male, unspecified site] Onset: 11-21-2023 Episodic Other diseases of bladder and urethra (2 sources) Urethral stricture 11-21-2023 Episodic Other diseases of kidney and ureters (2 sources) Renal impairment; Translations: [Disorder of kidney and ureter, unspecified] 03-07-2018 Episodic Other hereditary and degenerative nervous system conditions (1 source) Mild cognitive impairment, so stated; Translations: [MILD COGNTV IMPAIRMNT UNCRTN/UNKNWN] Onset: 12-22-2022 Chronic Other hereditary and degenerative nervous system conditions (3 sources) Essential tremor 09-04-2023 Chronic Other nervous system disorders (9 sources) Neuropathy; Translations: [Polyneuropathy, unspecified] Chronic Other nervous system disorders (4 sources) Polyneuropathy, unspecified; Translations: [POLYNEUROPATHY UNSPECIFIED] Onset: 05-15-2022 Resolved: 05-15-2022 Chronic Other nervous system disorders (4 sources) Communicating hydrocephalus; Translations: [COMMUNICATING HYDROCEPHALUS] Onset: 01-18-2023 Chronic Other nervous system disorders (1 source) Normal pressure hydrocephalus 12-16-2023 Chronic Other nervous system disorders (2 sources) Postoperative pain ; Translations: [Other acute postprocedural pain] 03-07-2018 Episodic Other nervous system disorders (3 sources) Abnormal gait 09-04-2023 Episodic Other nervous system disorders (3 sources) History of Guillain [place] syndrome 09-09-2023 Episodic Other non-traumatic joint disorders (1 source) Other specified joint disorders, left shoulder Episodic Other non-traumatic joint disorders (1 source) Pain in right shoulder Episodic Other non-traumatic joint disorders (1 source) Pain in left shoulder Episodic Other nutritional; endocrine; and metabolic disorders (17 sources) Morbid obesity; Translations: [Morbid obesity] Onset: 12-16-2023 03-07-2018 Chronic Other nutritional; endocrine; and metabolic disorders (15 sources) Body mass index 40+ - severely obese; Translations: [Morbid obesity] 05-16-2023 Chronic Other nutritional; endocrine; and metabolic disorders (4 sources) Morbid (severe) obesity due to excess calories; Translations: [MORBID SEVERE OBES D/T EXCESS DEV] Onset: 01-21-2023 Chronic Other nutritional; endocrine; and metabolic disorders (4 sources) Obesity 05-16-2023 Chronic Other screening for suspected conditions (not mental disorders or infectious disease) (6 sources) Encounter for screening mammogram for malignant neoplasm of breast; Translations: [Protein level - finding] Onset: 10-11-2022 Episodic Peripheral and visceral atherosclerosis (3 sources) Arteriosclerotic vascular disease 09-04-2023 Chronic Residual [...] [Pain in left shoulder] Onset: 07-01-2023 Unclassified (3 sources) Long-term current use of insulin 09-06-2023 Urinary tract infections (7 sources) Urinary tract infection, site not specified; [...] [Unspecified fall, initial encounter] Onset: 11-20-2022 Episodic Other aftercare (1 source) long-term (current) use of aspirin; Translations: [LONGTERM CURRENT USE OF ASPIRIN] Onset: 01-28-2023 Episodic Other aftercare (1 source) Other penitentiary (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 therapy; Translations: [OTH LONGTERM CURRENT DRUG THERAPY] Onset: 01-28-2023 Episodic Other aftercare (1 source) 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; Translations: [LONGTERM CURRENT USE OF INSULIN] Onset: 01-28-2023 Episodic Other aftercare (1 source) long-term (current) use of antithrombotics/ant iplatelets; Translations: [LONGTERM ANTITHROMBOT/ANTIPL ATLETS] Onset: 08-29-2022 Episodic Other connective [...] Never smoked tobacco; Translations: [Never a smoker] Unclassified (1 source) Onset: 01-09-2024 01-09-2024 Results Test Name Value Interpretation Reference Range Facil ity Screenson 02-07-2024 Screens [id number]#1.00TIFF [facility] Detention Recordson 02-05 Detention Records [id number]#1.00TIFF [facility] Living Will/POAon 02-05-2024 Living Will/POA [id number]#1.00TIFF [facility] Detention Recordson 02-04 Detention Records [id number]#1.00TIFF [facility] Ambulatory Visit Summaryon 0 02-04-2024 Ambulatory Visit Summary MALCOM KNOWLES :1955 Visit Date:02/04/2024 Ambulatory Visit Instructions Your Care Team Attending Physician - BRIGIDA WILLOUGHBY PA-C Primary Care Physician - Jose Snow MD Referring Physician - BRIGIDA WILLOUGHBY PA-C This Is Your Medications List Misc Prescription (Freestyle Bang 2 sensors) Misc Prescription (Freestyle Bang 2 system) Misc Prescription (Home health physical therapy evaluatoin and treatment) Misc Prescription (Misc DME Prescription) Misc Prescription (OT EVALUATION) Misc Prescription (Physical therapy treat and evaluate, properly sized walker,) Misc Prescription (handicap placard) acetaminophen (acetaminophen 500 mg Tab) acetaminophen-oxyc odone [...] D3 1000 intl units (25 mcg) Tab) ciprofloxacin (Cipro 500 mg Tab) clopidogrel (Plavix 75 mg Tab) cranberry [...] w/Appl) hydrocortisone topical (hydrocortisone Top 2.5% Crm) hydrocortisone-pra moxine topical (Proctofoam HC rectal foam) insulin aspart (Insulin Aspart FlexPen 100 units/mL injectable solution) insulin glargine (Basaglar KwikPen 100 units/mL subcutaneous solution) loperamide (Immodium A-D 2 mg Tab) magnesium hydroxide (Milk of Magnesia) memantine (memantine 10 mg Tab) mirabegron (Myrbetriq 50 mg oral tablet, extended release) multivitamin with minerals (PreserVision AREDS 2) nitroglycerin (nitroglycerin 0.4 mg sublingual Tab) nystatin topical (nystatin Top 100,000 units/g Crm 15 gram) ondansetron (ondansetron 4 mg Tab) polyethylene glycol 3350 potassium chloride (potassium chloride 20 mEq ER Tab) sodium chloride nasal (Saline Mist 0.65% nasal spray) tobramycin ophthalmic (Tobrex Oph Sherry 0.3% Soln-Opth) venlafaxine (venlafaxine 150 mg Cap-ER) zinc oxide topical (zinc oxide Top 20% Oint) Procedures Performed Cystourethroscopy with dilation of urethral stricture (12/23/2023), Cardiac catheterization, Cataract, Colonoscopy, History of left knee replacement, History of right total knee replacement, ARYAN BSO - Total abdominal hysterectomy and bilateral salpingo-oophorect francisco. Discharge Vitals Temperature (Temporal Artery) 36.8 ?C Heart Rate (Peripheral) 67 Respiratory Rate 17 Blood Pressure 140/86 Height 160 cm Height 63 in Weight 138 kg Weight 303.6 lb BMI 53.91 What to do next Scheduled Follow-Up Appointments Saturday 10:15 AM EDT With: Kaushal JUDGE, Jose Lau Where: [facility] [place] Invalid Interpretation Code [address] [place] [address]- \.br\ Saturday 2:00 PM EDT \.br\ With: FARTUN MCCOLLUM, BRIGIDA Seals\.br\ Where: [facility] Patient Educationon 02-04-20 Patient Education Obstetrics and Gynecology Overactive Bladder, Adult Overactive bladder is a condition in which a person has a sudden and frequent need to urinate. A person might also leak urine if he or she cannot get to the bathroom fast enough (urinary incontinence). Sometimes, symptoms can interfere with work or social activities. What are the causes? Overactive bladder is associated with poor nerve signals between your bladder and your brain. Your bladder may get the signal to empty before it is full. You may also have very sensitive muscles that make your bladder squeeze too soon. This condition may also be caused by other factors, such as: ? Medical conditions: ? Urinary tract infection. ? Infection of nearby tissues. ? Prostate enlargement. ? Bladder stones, inflammation, or tumors. ? Diabetes. ? Muscle or nerve weakness, especially from these conditions: ? A spinal cord injury. ? Stroke. ? Multiple sclerosis. ? Parkinson's disease. ? Other causes: ? Surgery on the uterus or urethra. ? Drinking too much caffeine or alcohol. ? Certain medicines, especially those that eliminate extra fluid in the body (diuretics). ? Constipation. What increases the risk? You may be at greater risk for overactive bladder if you: ? Are an older adult. ? Smoke. ? Are going through menopause. ? Have prostate problems. ? Have a neurological disease, such as stroke, dementia, Parkinson's disease, or multiple sclerosis (MS). ? Eat or drink alcohol, spicy food, caffeine, and other things that irritate the bladder. ? Are overweight or obese. What are the signs or symptoms? Symptoms of this condition include a sudden, strong urge to urinate. Other symptoms include: ? Leaking urine. ? Urinating 8 or more times a day. ? Waking up to urinate 2 or more times overnight. How is this diagnosed? This condition may be diagnosed based on: ? Your symptoms and medical history. ? A physical exam. ? Blood or urine tests to check for possible causes, such as infection. You may also need to see a health care provider who specializes in urinary tract problems. This is called a urologist. How is this treated? Treatment for overactive bladder depends on the cause of your condition and whether it is mild or severe. Treatment may include: ? Bladder training, such as: ? Learning to control the urge to urinate by following a schedule to urinate at regular intervals. ? Doing Kegel exercises to strengthen the pelvic floor muscles that support your bladder. ? Special devices, such as: ? Biofeedback. This uses sensors to help you become aware of your body's signals. ? Electrical stimulation. This uses electrodes placed inside the body (implanted) or outside the body. These electrodes send gentle pulses of electricity to strengthen the nerves or muscles that control the bladder. ? Women may use a plastic device, called a pessary, that fits into the vagina and supports the bladder. ? Medicines, such as: ? Antibiotics to treat bladder infection. ? Antispasmodics to stop the bladder from releasing urine at the wrong time. ? Tricyclic antidepressants to relax bladder muscles. ? Injections of botulinum toxin type A directly into the bladder tissue to relax bladder muscles. ? Surgery, such as: ? A device may be implanted to help manage the nerve signals that control urination. ? An electrode may be implanted to stimulate electrical signals in the bladder. ? A procedure may be done to change the shape of the bladder. This is done only in very severe cases. Follow these instructions at home: Eating and drinking ? Make diet or lifestyle changes recommended by your health care provider. These may include: ? Drinking fluids throughout the day and not only with meals. ? Cutting down on caffeine or alcohol. ? Eating a healthy and balanced diet to prevent constipation. This may include: ? Choosing foods that are high in fiber, such as beans, whole grains, and fresh fruits and vegetables. ? Limiting foods that are high in fat and processed sugars, such as fried and sweet foods. Lifestyle ? Lose weight if needed. ? Do not use any products that contain nicotine or tobacco. These include cigarettes, chewing tobacco, and vaping devices, such as e-cigarettes. If you need help quitting, ask your health care provider. General instructions ? Take ijvq-nzu-sfsqqul and prescription medicines only as told by your health care provider. ? If you were prescribed an antibiotic medicine, take it as told by your health care provider. Do not stop taking the antibiotic even if you start to feel better. ? Use any implants or pessary as told by your health care provider. ? If needed, wear pads to absorb urine leakage. ? Keep a log to track how much and when you drink, and when you need to urinate. This will help your health care provider monitor yo (more content not included)... [facility] Urology Office/Clinic Noteon 02-04-2024 Urology Office/Clinic Note Chief Complaint 6 week F/U HPI Staff S/P Cysto/UD by [facility] 12/23/23. DX: Mixed Incontinence, Urethral Stricture, UTI & DM. *Oxybutynin DC'd at last encounter & pt started on Myrbetriq 50mg qd. [facility] also recommended DMannose 2mg @ time of Cysto/UD. Pt. was not able to give a urine sample today HgA1c 10/01/23 - 8.2 Renal fxn: 10/01/23 - BUN 24, Cr 1.5, eGFR 37 [facility] called PCP 12/10/23 requesting order for C&S due to falls. +C&S 12/13/23 >100k E Coli - Pt was seen by PCP 12/16/23 d/t UTI. Sx at that time burning, itching, frequency. Per PCP note, pt was unable to successfully give urine specimen. They did do UA with urine from depends. MOD Leuks, NEG nitrates & LARGE blood. Pt was then started on Macrobid 100mg therapy. Dysuria: Pt. states having a pressure feeling Incomplete bladder emptying: yes Hematuria: no Frequency: every couple hours Urgency: yes Nocturia: no Stream: good stream Post void dripping: no Wearing pads/ Depends: yes, Pt. states she will wear a Depends and 2 pads at once. Urge incontinence: yes Stress incontinence: yes Incontinence without Sensory Awareness: yes Abdominal pain: lower pressure feeling Review of Systems PHQ Score Initial Depression Screen Score: 0 SCORE no fever, chills, malaise, myalgia. no rash/lesions. no chest pain, palpitations, or SOB. no abdominal pain, nausea, vomiting. no unilateral calf swelling, redness, pain Physical Exam Vitals & Measurements T: 36.8 ?C(Temporal Artery) HR: 67(Peripheral) RR: 17 BP: 140/86 HT: 63 in HT: 160 cm WT: 138 kg WT: 303.6 lb BMI: 53.91 General: nontoxic, NAD Mouth: moist mucosa Lungs: normal respiratory effort Cardio: regular rate, good distal perfusion Abdomen: nondistended, no suprapubic distention or tenderness, no CVA tenderness Neurologic: Grossly normal Skin: No rashes or suspicious lesions Assessment/Plan 1. Urge incontinence (N39.41: Urge incontinence) BBSQ 20, poor control on Lasix 40mg no change since UD no improvement on Oxybutynin 15mg qd, dc'd due to side effects (dry eyes, constipation)(also pt has dementia) no improvement on Myrbetriq 50mg qd. will dc. discussed options - try to see if Gemtesa covered/affordable (low likelihood it will help much more than Myrbetriq), Botox, SNM. Discussed tx options for bothersome urinary sx including oral medications, Botox, SNM. Pt feels comfortable trying Botox. Will schedule Botox. The procedural risks, benefits, details, and treatment alternatives have been discussed with the patient. These include bleeding, infection, continued problems with overactive bladder, inability to empty the bladder which could require an indwelling catheter or need for in/out catheterization to empty the bladder, and need for repeat procedures over time (usually lasts up to six months), as well as fatigue and insomnia, among others. There is a minimal risk of Botox entering the blood stream and causing neurological problems, which is quite rare. Full informed consent has been obtained. Will order Local anesthesia. 2. Urethral stricture (N35.919: Unspecified urethral stricture, male, unspecified site) sp cysto/UD w [facility] 12/23/23, tight at 18fr 3. Frequent UTI (N39.0: Urinary tract infection, site not specified) Had 2 UTIs in July with hematuria. Also saw blood in Spring w UTI. Discussed possibility of starting Estrace cream to help with UTI prevention. Does have hx of uterine ca so will not utilize this. ECF called due to increased falls, cx+ 12/13/23, txd now on d-mannose, cranberry, and probiotics (confirmed on ECF JAN) Follow-up With When Contact Information [facility] [place] [address] Business (1) Additional Instructions: our project controls scheduler will be contacting you for follow-up Patient Education Overactive Bladder, Adult Problem List/Past Medical History Ongoing (Idiopathic) normal pressure hydrocephalus ASCVD (arteriosclerotic cardiovascular disease) Benign hypertension with chronic kidney disease BMI 50.0-59.9, adult CKD (chronic kidney disease) stage 3, GFR 30-59 ml/min Confusion Diabetic retinopathy Essential tremor Frequent falls Frequent UTI Gait disorder Gross hematuria History of Uterine cancer HTN (hypertension) Hx of 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 Hypercholesterolem ia Insulin long-term use Major depressive disorder with single episode, in full remission Migraines Mixed incontinence Morbid obesity Obesity Polyuria Stage 3b chronic kidney disease (CKD) Type 2 diabetes mellitus with chronic kidney disease Type 2 diabetes mellitus with hypercholesterolem ia Urethral stricture Urge incontinence UTI (urinary tract infection) UTI symptoms Vitamin D deficiency Historical No qualifying data Procedure/Surgical History Cystourethroscopy with dilation of urethral stricture (12/23/2023), Cardiac catheterization, Cataract, Colonoscopy, History of l (more content not included)... [facility] Comment on above: Result Comment: Elec tronically Signed By: FARTUN MCCOLLUM, BRIGIDA Seals\.br\Date and Time Signed: 02/04/24 12:37 EST Consultation Noteon 01-23-20 Consultation Note [id number]#1.00TIFF [facility] Detention Recordson 01-17 Detention Records [id number]#1.00TIFF [facility] Consultation Noteon 01-13-20 Consultation Note [id number]#1.00TIFF [facility] Consultation Note [id number]#1.00TIFF [facility] Detention Recordson 01-01 Detention Records [id number]#1.00TIFF [facility] Detention Recordson 12-30 Detention Records [id number]#1.00TIFF [facility] Detention Recordson 12-25 Detention Records [id number]#1.00TIFF [facility] Consent for Procedure/Surger yon 12-23-2023 Consent for Procedure/Surgery [id number]#1.00TIFF [facility] Consent for Treatmenton 12-03 Consent for Treatment [id number]#1.00TIFF [facility] Inpatient Patient Summaryon 12-23-2023 Inpatient Patient Summary [place] [id number] Clinical Summary Person Information Name: MALCOM KNOWLES Age: 68 Years : 1955 Sex: Female PCP: Jose Snow MD Marital Status: Race: White Ethnicity: Non- or Language: Slovak Visit Id: Visit Reason: URINARY INCONTINENCE URETERAL STRICTURE RECURRENT UTI Speciality: Acuity: Enc Type: Outpatient Med Service: Surgery Arrival: 12/23/2023 14:07:21 Discharge: Dispo Type: Address: [address] [place] [id number] Provider Notes: Diagnosis: Problems Active (Idiopathic) normal pressure hydrocephalus Frequent falls Confusion Polyuria Urethral stricture UTI (urinary tract infection) UTI symptoms Gross hematuria Mixed incontinence Major depressive disorder with single episode, in full remission Stage 3b chronic kidney disease (CKD) Hx of 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 Morbid obesity 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 Insulin long-term use Gait disorder Migraines Diabetic retinopathy History of Uterine cancer HTN (hypertension) Hypercholesterolem ia Essential tremor Vitamin D deficiency CKD (chronic kidney disease) stage 3, GFR 30-59 ml/min ASCVD (arteriosclerotic cardiovascular disease) Obesity BMI 50.0-59.9, adult Smoking Status: Functional Status: Sensory Deficits: History of Falls: Mobility Assistance Prior to Admission: ADLs: Current Level of Assistance for Self-Care/Mobility : Cognitive Status: Allergies sulfa drugs (Unknown) influenza virus vaccine, inactivated Laboratory or Other Results This Visit (last charted value for your 12/23/2023 visit) No Laboratory or Other Results This Visit Measurements: Height: 158.75 cm Weight: Blood Pressure: Not Valued / Not Valued BMI: Procedures No Procedures Documented Immunizations No Immunizations Documented This Visit Final Med List: acetaminophen (acetaminophen 500 mg Tab) 2 Tablets By Mouth every day. acetaminophen-oxyc odone (acetaminophen-oxy codone 325 mg-5 mg Tab) 1 Tablets By Mouth every 6 hours. as needed for pain. acetaminophen-oxyc odone (Percocet 5 mg-325 mg oral tablet) 1 Tablets By Mouth every 6 hours. as needed for pain. alpha-lipoic acid (Alpha Lipoic Acid 600 mg oral capsule) 1 Capsules By Mouth every day. atorvastatin (atorvastatin 80 mg Tab) 1 Tablets By Mouth every day. biotin (biotin 10 mg oral tablet) 1 Tablets By Mouth 2 times a day. calcium carbonate (Tums Chewy Bites 750 mg oral tablet, chewable) 2 Tablets Chewed at bedtime. cetirizine (cetirizine 5 mg oral tablet) 1 Tablets By Mouth every day. cholecalciferol (Vitamin D3 1000 intl units (25 mcg) Tab) 1 Tablets By Mouth every day. ciprofloxacin (Cipro 500 mg Tab) Take 1 tab day prior to procedure and 1 tab day of procdure - afterwards. Refills: 0. clopidogrel (Plavix 75 mg Tab) 1 Tablets By Mouth every day. cranberry (Cranberry oral tablet) 450mg orally once a day. cyanocobalamin (Vitamin B12 1000 mcg Tab) 1 Tablets By Mouth every day. docusate (Colace 100 mg Cap) 1 Capsules By Mouth every day as needed for constipation. donepezil (donepezil 10 mg Tab) 1 Tablets By Mouth 2 times a day. dulaglutide (Trulicity Pen 1.5 mg/0.5 mL subcutaneous solution) 1.5 Milligram Subcutaneous every week. Refills: 0. famotidine (famotidine 20 mg Tab) 1 Tablets By Mouth once a day (at bedtime). fluconazole (Diflucan 150 mg Tab) 1 Tablets By Mouth Once. Refills: 0. furosemide (furosemide 40 mg Tab) 1 Tablets By Mouth every day. gabapentin (gabapentin 600 mg Tab) 1 Tablets By Mouth 3 times a day. glimepiride (glimepiride 2 mg Tab) 1 Tablets By Mouth every day. glucosamine (glucosamine hydrochloride 1500 mg oral tablet) 2 tab(s) Oral Daily at bedtime. hydrocortisone topical (hydrocortisone 2.5% Rectal Crm w/Appl) 1 Application By rectum 2 times a day. us as needed. hydrocortisone topical (hydrocortisone Top 2.5% Crm) apply rectally twice daily as needed for hemorrhoids. hydrocortisone-pra moxine topical (Proctofoam HC rectal foam) 1 Application By rectum 3 times a day. Refills: 0. insulin aspart (Insulin Aspart FlexPen 100 units/mL injectable solution) test ac and hs and cover 150-200 42u, 210-250 4u, 251-300 6u, 301-350 8u, 351-400 10u, 401-1000 12u, Also inject 8u at lunch abd 10u at dinner regardless of readings and follow scale rest of time. insulin glargine (Basaglar KwikPen 100 units/mL subcutaneous solution) 30 unit(s) at bedtime. loperamide (Immodium A-D 2 mg Tab) 1 tablet orally as neededafter each loose stool max 16 a day. magnesium hydroxide (Milk of Magnesia) 2,400 Milligram By Mouth every day. as needed for constipation. memantine (memantine 10 mg Tab) 1 Table (more content not included)... [facility] IntraOperative Documentson 0 12-23-2023 IntraOperative Documents [id number] Normal [facility] Main OR Intraoperative Recor don 12-23-2023 Main OR Intraoperative Record IntraOp Document Type FTURO Summary Primary Physician: Joe BOOTH MD Finalized Date/Time: 12/23/23 15:44:42 Pt. Name: MALCOM KNOWLES/Sex: 1955 Female Med Rec #: [id number] Physician: Joe BOOTH MD Financial #: [id number] Pt. Type: O Room/Bed: / Admit/Disch: 12/23/23 14:07:21 - Institution: Case Times FTURO Entry 1 Patient Times In Room 12/23/23 15:19:00 Out Room 12/23/23 15:39:00 Procedure Times Start 12/23/23 15:29:00 Stop 12/23/23 15:33:00 Anesthesia Times Last Modified By: RAJESH Zambrano RN, Ruthann 12/23/23 15:33:40 Case Attendance FTURO Entry 1 Entry 2 Entry 3 Case Attendee Joe BOOTH MD, RN, JOSE LUISOR, Mini Braswell Role Performed Surgeon - Primary Manufacturing Engineering Professor - Primary Scrub - Primary Time In 12/23/23 15:19:00 12/23/23 15:19:00 12/23/23 15:19:00 Time Out 12/23/23 15:39:00 12/23/23 15:39:00 12/23/23 15:39:00 Procedure CYSTOSCOPY LOCAL WITH CYSTOSCOPY LOCAL WITH CYSTOSCOPY LOCAL WITH URETHRAL DILATION(.) URETHRAL DILATION(.) URETHRAL DILATION(.) Comments Last Modified By: RAJESH Zambrano RN, RAJESH Zambrano RN, Stocker RN, CNOR, Ruthann 12/23/23 Samaria 12/23/23 Samaria 12/23/23 15:33:43 15:33:43 15:33:43 Surgical Procedures FTURO Entry 1 Procedure Description Procedure CYSTOSCOPY LOCAL WITH Modifiers . URETHRAL DILATION Surgeon Description cysto with UD Primary Procedure Yes Primary Surgeon Joe BOOTH MD Start 12/23/23 15:29:00 Stop 12/23/23 15:33:00 Anesthesia Type Local Surgical Service Urology Wound Class 2 - Clean-Contaminated Last Modified By: RAJESH Zambrano RN, Ruthann 12/23/23 15:33:44 General Case Data FTURO Pre-Care Text: Classifies surgical wound, implements aseptic technique, initiates traffic control Entry 1 Case Information OR URO 1 FT Case Level None Wound Class 2 - Clean-Contaminated Specialty Urology Preop Diagnosis URINARY INCONTINENCE Postop Same As Preop No URETERAL STRICTURE RECURRENT UTI Postop Diagnosis URINARY INCONTINENCE Outcomes Met? Yes URETERAL STRICTURE RECURRENT UTI Last Modified By: RAJESH Zambrano RN, Samaria 12/23/23 15:33:56 Post-Care Text: The patient is free from signs and symptoms of infection EU IntraOp - FTURO Pre-Care Text: Implements protective measures prior to operative or invasive procedure, confirms identity before the operative or invasive procedure, verifies operative procedure, surgical site, and laterality Entry 1 EU Perioperative Protocols Procedure(s) CYSTOSCOPY LOCAL WITH Patient Identity Birthday, ID Band URETHRAL DILATION(.) Verified (select at Check, Patient least 2): Participation Consents / H and P HandP, Surgery/Procedure Operative Site N/A Verified Consent Marking Verified Surgical Site Yes Laterality Verified n/a Verified Procedure Verified Yes Correct Patient Yes Position Verified Availability Equipment, Medication Time Out Joe BOOTH MD, Verified (If Participants RAJESH Zambrano RN, Applicable) French Mera Jessica D Time Out Complete 12/23/23 15:28:00 Allergies Reviewed? Yes Allergies Reviewed Self/Patient With Body Position Low Lithotomy Prep Area perineal area Prep Agents Betadine Solution Skin. Condition Unable to Visualize Additional None Specimens Collected Vitals - EU Blood Pressure Pulse Respirations SPO2 EBL 0 IandO - EU Total Intake 0 mL Total Output 0 mL Outcomes Met? Yes Last Modified By: RAJESH Zambrano RN, Ruthann 12/23/23 15:42:56 Post-Care Text: The patient is free from signs and symptoms of injury caused by extraneous objects Sign Out FTURO Entry 1 Before Patient Leaves OR Nurse verbally Yes Nurse verbally n/a confirms with the confirms with the team the name of team that the procedure(s) instrument, sponge, recorded and needle counts are correct (or N/A) Nurse verbally n/a Nurse verbally n/a confirms with the confirms with the team how the team whether there specimen is labeled are any equipment (including patient problems to be name), if applicable addressed Sign Out Complete 12/23/23 15:42:00 Last Modified By: RAJESH Zambrano RN, Ruthann 12/23/23 15:42:13 Case Comments Finalized By: RAJESH Zambrano RN, Ruthann Document Signatures Signed By: RAJESH Zambrano RN, Ruthann 12/23/23 15:42 RAJESH Zambrano RN, Ruthann 12/23/23 15:44 Normal [facility] Main OR Preoperative Recordo n 12-23-2023 Main OR Preoperative Record Holding Area Document Type FTURO Summary Primary Physician: Joe BOOTH MD Finalized Date/Time: 12/23/23 14:30:39 Pt. Name: MALCOM KNOWLESO.B./Sex: 1955 Female Med Rec #: [id number] Physician: Joe BOOTH MD Financial #: [id number] Pt. Type: O Room/Bed: / Admit/Disch: 12/23/23 14:07:21 - Institution: Case Times Holding FTURO Pre-Care Text: Verifies consent for planned procedure, identifies individual values and wishes concerning care, includes family members in perioperative teaching Secures patient's records' belongings, and valuables, maintains patient's dignity and privacy, and maintains patient confidentiality Entry 1 In Holding 12/23/23 14:27:00 Outcomes Met? Yes Last Modified By: Michelle Bedolla RN 12/23/23 14:27:51 Post-Care Text: The patient participates in decisions affecting his or her perioperative plan of care The patient's right to privacy is maintained Surgery Checklist FTURO Entry 1 Patient Birthday, ID Band Procedure History and Physical, Identification: Check, Patient Verification: Surgical Consent, With Participation Patient NPO after Midnight: n/a Personal Items: Cataract Lens Implant, Jewelry Personal Items BILATERAL CATARACT LENS Limitations: WHEELCHAIR Comment: IMPANTS, EARRINGS X 1 PAIR Complaints of Pain: No Pain Comment: 0/10 Skin Integrity Dry, Warm Vitals - EU Blood Pressure Pulse Respirations SPO2 Additional None RN Reviewed Yes Specimens Collected Last Modified By: Michelle Bedolla RN 12/23/23 14:30:35 Finalized By: Michelle Bedolla RN Document Signatures Signed By: Michelle Bedolla RN 12/23/23 14:30 Normal [facility] Operative Reporton Operative Report Patient: MALCOM KNOWLES Age: 68 years Sex: Female : 1955 Associated Diagnoses: None Author: Joe BOOTH MD Procedure Operative Information Details: Date/ Time: 12/23/2023 15:44:00. Pre-Op Dx: Urethral stenosis, unspecified Recurrent UTI Hypotonic neurogenic bladder with urinary retention . Post-Op Dx: Same. Anesthesia Type: Local. Procedure: Local Cystoscopy with Urethral Dilation. Complications: None. Risks/Benefits/Inf ormed Consent: Surgical risks, benefits, details of the procedure have been explained to the patient, Full informed consent has been obtained. Intraoperative Information Prepped: Patient is brought back to the endoscopy suite, Patient is placed in modified dorso/lithotomy position, Patient prepped in the usual fashion with Betadine solution, 2% Xylocaine Jelly is placed per Urethra, After waiting several minutes the Cystoscope is introduced. The Urethra is: Tight, Tight at 18 Yemeni. The Bladder is: Normal, Trabeculated Moderate (2), No tumors, no stones. Moderate retained urine.. The ureteral orifices: Show efflux of clear urine. The Urethra was dilated to: 30 Yemeni w/ sounds. Devices Implanted: None. Removal: Cystoscope is removed, The patient tolerated it well. Postoperative Information Discharge: Patient is discharged home with antibiotic coverage, Follow up arranged, Follow-up with DONE[facility] Zamudio-see in about 6 weeks. Monitor the urinary pattern after urethral dilatation today. Due to recurrent UTI had a discussion with the patient's daughter that we should add d-mannose, 2 g daily as well as probiotics of any brand at the nursing facility in the hopes of decreasing recurrent UTI frequency. The patient has stopped the oxybutynin secondary to the possibility of mental status change and optimally she could be placed on a beta 3 agonist such as Myrbetriq at 25 mg daily if available on her nursing facility formulary.. [facility] Comment on above: Result Comment: Elec tronically Signed By: Joe BOOTH MD\.br\Date and Time Signed: 12/23/23 15:48 EST Outpatient Surgery Discharge Instructionon 12-23-2023 Outpatient Surgery Discharge Instruction [address] [address] Patient Discharge Instructions PERSON INFORMATION Name: MALCOM KNOWLES Date of : 1955 Current Date: 12/23/2023 15:43:56 PHYSICIANS Admitting Physician: Joe BOOTH MD Comment: Discharge Diagnosis: MALCOM KNOWLES has been given the following list of follow-up instructions, prescriptions, and patient education materials: IF UNABLE TO CONTACT YOUR PHYSICIAN AND YOU FEEL IT IS AN EMERGENCY, GO TO THE NEAREST EMERGENCY ROOM OR CALL 911 Follow up: With: Address: When: [facility]IG[facility] WILLOUGHBY [address] [place] [id number] [facility] (1) Within 6 weeks Comments: Call for followup appointment, with a bladder scan for PVR at that visit. Monitor your urinary flow after the dilation of the channel today. Type Location Start Finish State URO Office Visit [facility] 02/04/2024 11:20 AM 02/04/2024 11:35 AM Confirmed FM Open [facility] [place] 02/24/2024 10:15 AM 02/24/2024 10:25 AM Confirmed URO Office Visit [facility] 03/03/2024 2:00 PM 03/03/2024 2:15 PM Confirmed Comment: PATIENT EDUCATION INFORMATION Instructions: Cystoscopy with Urethral Dilation ? Voiding after the procedure: there may be some pain, urethral bleeding, burning, urgency, frequency and blood tinged urine following the procedure. These symptoms usually resolve within 2-5 days. Drink the amount of fluid it takes to keep the urine pink to yellow or clear in color. Drinking enough water and fluids will help to ease any discomfort after your procedure. ? If you are having problems that seem out of the ordinary, please call. ? If unable to contact your physician and you feel it is an emergency, go to the nearest emergency room or call 911 ? Diet ? you may resume your normal diet. ? Activity ? you may resume your normal activities ? Call if you have a fever over 100 degrees BENSON Cheema PATRICIA, have received the attached patient education materials/instruct ions and have verbalized understanding: May we do a follow up call? Yes No I was present when discharge instructions were given ___ Patient Signature Date Clinican/Nurse Signature Date You may receive a survey from [employer] asking you to rate your care experience. Your feedback is important and will help us understand what we do well and how we can improve the quality of care we provide to you, your loved ones and our community. It?s an honor to serve you. Thank you for choosing [facility] Normal [facility] Detention Recordson 12-17 Detention Records [id number] Normal [facility] Ambulatory Visit Summaryon 0 12-16-2023 Ambulatory Visit Summary MALCOM KNOWLES :1955 Visit Date:12/16/2023 Ambulatory Visit Instructions Your Diagnosis UTI (urinary tract infection) Polyuria Confusion Frequent falls (Idiopathic) normal pressure hydrocephalus BMI 50.0-59.9, adult Tests Performed Urnls Dip Stick Non-Auto w/o Micrscpy POC 47284 Your Care Team Attending Physician - Mariangel Peña Primary Care Physician - Jose Snow MD This Is Your Medications List Misc [...] D3 1000 intl units (25 mcg) Tab) ciprofloxacin (Cipro 500 mg Tab) clopidogrel (Plavix 75 mg Tab) cranberry [...] w/Appl) hydrocortisone topical (hydrocortisone Top 2.5% Crm) hydrocortisone-pra moxine topical (Proctofoam HC rectal foam) insulin aspart (Insulin Aspart FlexPen 100 units/mL injectable solution) insulin glargine (Basaglar KwikPen 100 units/mL subcutaneous solution) loperamide (Immodium A-D 2 mg Tab) magnesium hydroxide (Milk of Magnesia) memantine (memantine 10 mg Tab) multivitamin with minerals (PreserVision AREDS 2) nitrofurantoin (nitrofurantoin macrocrystals-mono hydrate 100 mg Cap) nitroglycerin (nitroglycerin 0.4 mg sublingual Tab) nystatin [...] hysterectomy and bilateral salpingo-oophorect francisco. Discharge Vitals Heart Rate (Peripheral) 63 Blood Pressure 130/70 Height 160 cm Height 63 in Weight 130 kg Weight 286 lb BMI 50.78 What to do next Scheduled Follow-Up Appointments Saturday 11:00 AM EST With: Where: [facility] Saturday 3:00 PM EST With: Where: [facility] Saturday 10:15 AM EDT With: Kaushal JUDGE, Jose Lau Where: [facility] Normal [address] [place] [id number]- \.br\ Medications\.br\ What How Much When Why Instructions\.br\ New hydrocortisone-pramox ine topical (Proctofoam HC rectal foam) 1 Application By rectum 3 times a day UTI (urinary tract infection) BMI 50.0-59.9, adult Pickup at [facility]\.br\ Unchanged acetaminophen (acetaminophen 500 mg Tab) 2 Tablets By Mouth Every day\.br\ Unchanged acetaminophen-oxycodo ne (acetaminophen-oxycod one 325 mg-5 mg Tab) 1 Tablets By Mouth Every 6 hours as needed for pain \.br\ Unchanged acetaminophen-oxycodo ne (Percocet 5 mg-325 mg oral tablet) 1 Tablets By Mouth Every 6 hours as needed for pain \.br\ Unchanged alpha-lipoic acid (Alpha Lipoic Acid 600 mg oral capsule) 1 Capsules By Mouth Every day\.br\ Unchanged atorvastatin (atorvastatin 80 mg Tab) 1 Tablets By Mouth Every day\.br\ Unchanged biotin (biotin 10 mg oral tablet) 1 Tablets By Mouth 2 times a day\.br\ Unchanged calcium carbonate (Tums Chewy Bites 750 mg oral tablet, chewable) 2 Tablets Chewed At bedtime\.br\ Unchanged cetirizine (cetirizine 5 mg oral tablet) 1 Tablets By Mouth Every day\.br\ Unchanged cholecalciferol (Vitamin D3 1000 intl units (25 mcg) Tab) 1 Tablets By Mouth Every day\.br\ Unchanged ciprofloxacin (Cipro 500 mg Tab) See instructions Take 1 tab day prior to procedure and 1 tab day of procdure - afterwards \.br\ Unchanged clopidogrel (Plavix 75 mg Tab) 1 Tablets By Mouth Every day\.br\ Unchanged cranberry (Cranberry oral tablet) See instructions 450mg orally once a day \.br\ Unchanged cyanocobalamin (Vitamin B12 1000 mcg Tab) 1 Tablets By Mouth Every day\.br\ Unchanged docusate (Colace 100 mg Cap) 1 Capsules By Mouth Every day as needed for for constipation\.br\ Unchanged donepezil (donepezil 10 mg Tab) 1 Tablets By Mouth 2 times a day\.br\ Unchanged dulaglutide (Trulicity Pen 1.5 mg/ 0.5 mL subcutaneous solution) 1.5 Milligram Subcutaneous Every week\.br\ Unchanged famotidine (famotidine 20 mg Tab) 1 Tablets By Mouth Once a day (at bedtime)\.br\ Unchanged fluconazole (Diflucan 150 mg Tab) 1 Tablets By Mouth Once UTI (urinary tract infection)\.br\ Unchanged furosemide (furosemide 40 mg Tab) 1 Tablets By Mouth Every day\.br\ Unchanged gabapentin (gabapentin 600 mg Tab) 1 Tablets By Mouth 3 times a day\.br\ Unchanged glimepiride (glimepiride 2 mg Tab) 1 Tablets By Mouth Every day\.br\ Unchanged glucosamine (glucosamine hydrochloride 1500 mg oral tablet) See instructions 2 tab(s) Oral Daily at bedtime \.br\ Unchanged hydrocortisone topical (hydrocortisone 2.5% Rectal Crm w/ Appl) 1 Application By rectum 2 times a day us as needed \.br\ Unchanged hydrocortisone topical (hydrocortisone Top 2.5% Crm) See instructions apply rectally twice daily as needed for hemorrhoids \.br\ Unchanged insulin aspart (Insulin Aspart FlexPen 100 units/ mL injectable solution) See instructions test ac and hs and cover 150-200 42u, 210-250 4u, 251-300 6u, 301-350 8u, 351-400 10u, 401-1000 12u, Also inject 8u at lunch abd 10u at dinner regardless of readings and follow scale rest of time \.br\ Unchanged insulin glargine (Basaglar KwikPen 100 units/ mL subcutaneous solution) See instructions 30 unit(s) at bedtime \.br\ Unchanged loperamide (Immodium A-D 2 mg Tab) See instructions 1 tablet orally as neededafter each loose stool max 16 a day \.br\ Unchanged magnesium hydroxide (Milk of Magnesia) 2,400 Milligram By Mouth Every day as needed for constipation \.br\ Unchanged memantine (memantine 10 mg Tab) 1 Tablets By Mouth 2 times a day\.br\ Unchanged Misc Prescription (Freestyle Bang 2 sensors) See instructions Insulin dependent type 2 diabetes mellitus One box of sensors \.br\ Unchanged Misc Prescription (Freestyle Bang 2 system) See instructions Insulin dependent type 2 diabetes mellitus pt to check BS 4 times per day \.br\ Unchanged Misc Prescription (Home health physical therapy evaluatoin and treatment) See instructions Frequent falls Weakness Gait disturbance HH PT evaluation and treatment \.br\ Unchanged Misc Prescription (Misc DME Prescription) See instructions BD ultra fine pen needles 31G X 3/ 16. Use to inject insulin as directed. Dx E10.42 \.br\ Unchanged Misc Prescription (OT EVALUATION) See instructions Insulin dependent type 2 diabetes mellitus evaluate and treat better fitting wheel chair \.br\ Unchanged Misc Prescription (Physical therapy treat and evaluate, properly sized walker,) See instructions UTI (urinary tract infection) see above \.br\ Unchanged multivitamin with minerals (PreserVision AREDS 2) 1 Tablets Chewed Every day\.br\ Unchanged nitrofurantoin (nitrofurantoin macrocrystals-monohyd rate 100 mg Cap) 1 Capsules By Mouth 2 times a day Duration: 10 [facility]\ Unchanged nitroglycerin (nitroglycerin 0.4 mg sublingual Tab) 1 Tablets Sublingual Every 5 minutes as needed for for chest pain\.br\ Unchanged nystatin topical (nystatin Top 100,000 units/ g Crm 15 gram) See instructions apply topically to affected area(s) per plan as needed \.br\ Unchanged ondansetron (ondansetron 4 mg Tab) 1 Tablets By Mouth Every 6 hours\.br\ Unchanged oxybutynin (oxybutynin 15 mg ER Tab) 1 Tablets By Mouth Every day do not crush \.br\ Unchanged polyethylene glycol 3350 17 Gram By Mouth Every day dissolve in 8ozs of water \.br\ Unchanged potassium chloride (potassium chloride 20 mEq ER Tab) 1 Tablets By Mouth Every day\.br\ Unchanged sodium chloride nasal (Saline Mist 0.65% nasal spray) See instructions 1 spray each nostril every shift, may self administer \.br\ Unchanged venlafaxine (venlafaxine 150 mg Cap-ER) 1 Capsules By Mouth Every day\.br\ Unchanged zinc oxide topical (zinc oxide Top 20% Oint) See instructions apply topically to red areas on buttocks twice daily as needed \.br\ Pharmacy Information\.br\ [facility] [place]: [address] [place] [address] [phone]\.br\ Test Results\.br\ Urnls Dip Stick Non-Auto w/o Micrscpy POC 98943 (12/16/2023)\.br\ Bilirubin Urine Dipstick - Negative\.br\ Blood Urine Dipstick - 3+ Large\.br\ Glucose Urine Dipstick - Negative\.br\ Ketones Urine Dipstick - Negative\.br\ Leukocytes Urine Dipstick - 2+ Moderate\.br\ Nitrite Urine Dipstick - Negative\.br\ Protein Urine Dipstick - 3+ (300 mg/dl)\.br\ Specific [place] Urine Dipstick - >=1.030\.br\ Urine Appearance Urine Dipstick - Clear\.br\ Urine Color Urine Dipstick - Light yellow\.br\ Urobilinogen Urine Dipstick - Normal 0.2-1 EU/dl\.br\ pH Urine Dipstick - 8.5\.br\ Allergies\.br\ influenza virus vaccine, inactivated\.br\ sulfa drugs (Unknown)\.br\ Problems\.br\ Ongoing - Any problem that you are currently receiving treatment for.\.br\ (Idiopathic) normal pressure hydrocephalus\.br\ ASCVD (arteriosclerotic cardiovascular disease)\.br\ Benign hypertension with chronic kidney disease\.br\ BMI 50.0-59.9, adult\.br\ CKD (chronic kidney disease) stage 3, GFR 30-59 ml/min\.br\ Confusion\.br\ Diabetic retinopathy\.br\ Essential tremor\.br\ Frequent falls\.br\ Gait disorder\.br\ Gross hematuria\.br\ History of Uterine cancer\.br\ HTN (hypertension)\.br\ Hx of 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\.br\ Hypercholesterolemia\ .br\ Insulin long-term use\.br\ Major depressive disorder with single episode, in full remission\.br\ Migraines\.br\ Mixed incontinence\.br\ Morbid obesity\.br\ Obesity\.br\ Polyuria\.br\ Stage 3b chronic kidney disease (CKD)\.br\ Type 2 diabetes mellitus with chronic kidney disease\.br\ Type 2 diabetes mellitus with hypercholesterolemia\ .br\ Urethral stricture\.br\ UTI (urinary tract infection)\.br\ UTI symptoms\.br\ Vitamin D deficiency\.br\ Donell Westfall [facility] Family Medicine Office/Clini c Noteon 12-16-2023 Family Medicine Office/Clinic Note Chief Complaint UTI symptoms HPI Staff Malcom is a 68 year old female presenting for UTI symptoms Dysuria: Onset: 1 week Symptoms: burning, itchying, frequency OTC used: none Last UTI: unknown Hx of kidney stones: none UA in office documented in chart PhQ9-2 Fall assessment 60 fell today History of Present Illness pt c/o urinary itching, frequency burning Review of Systems PHQ Score Initial Depression Screen Score: 2 SCORE ROS - Provider Constitutional: no fever, no chills, no sweats, no fatigue Respiratory: no shortness of breath, no cough, no orthopnea, no wheezing. Cardiovascular: no chest pain, no palpitations, no edema. Neurologic: no headache, no dizziness, no numbness, no weakness. Physical Exam Vitals & Measurements HR: 63(Peripheral) BP: 130/70 SpO2: 98% HT: 63 in HT: 160 cm WT: 130 kg WT: 286 lb BMI: 50.78 General: alert, no acute distress ENMT: oral mucosa moist, no pharyngeal erythema or exudate Cardiovascular: regular rate and rhythm, normal peripheral perfusion Respiratory: Lungs CTA, respirations non labored Extremities: no deformity, no trauma Neurological: oriented x 4, LOC appropriate for age, CN II-XII intact, motor strength equal & normal bilaterally, speech normal Assessment/Plan 1. UTI (urinary tract infection) (N39.0: Urinary tract infection, site not specified) pt unable to urinate in measuring hat due to incontinence. urine on depends was used to run urinalysis in office. unable to send for culture. will treat with Macrobid. if symports do not improve daughter will let us know. will send referral for [facility] and [facility] for suspected hydrocephalus. Ordered: hydrocortisone-pra moxine topical, 1 teresa, Rectal, TID, 10 gram, Refill(s) 0, [facility], 160, cm, 12/16/23 10:57:00 EST, Height/Length Dosing, 130, kg, 12/16/23 10:53:00 EST, Weight Dosing [facility] External Ambulatory Referral Urnls Dip Stick Non-Auto w/o Micrscpy POC 18574 2. Polyuria (R35.89: Other polyuria) pt has had worsening polyuria. was told by cloth reeler and Dr. Snow to see neurology for suspected normotensive hydrocephalus due to all of her symptoms. will refer to [facility] Ordered: [facility] [facility] External Ambulatory Referral [facility] External Ambulatory Referral 3. Confusion (R41.0: Disorientation, unspecified) worsening confusion Ordered: [facility] External Ambulatory Referral [facility] External Ambulatory Referral 4. Frequent falls (R29.6: Repeated falls) pt has fallen 8 times in 3 weeks. daughter requesting referral to [facility] Ordered: [facility] External Ambulatory Referral [facility] External Ambulatory Referral 5. 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 will send referral to [facility]. was previously being see by Dr. Loredo in [place] Ordered: [facility] External Ambulatory Referral [facility] External Ambulatory Referral 6. BMI 50.0-59.9, adult (Z68.43: Body mass index [BMI] 50.0-59.9, adult) BMI education complete Ordered: hydrocortisone-pra moxine topical, 1 teresa, Rectal, TID, 10 gram, Refill(s) 0, [facility], 160, cm, 12/16/23 10:57:00 EST, Height/Length Dosing, 130, kg, 12/16/23 10:53:00 EST, Weight Dosing Urnls Dip Stick Non-Auto w/o Micrscpy POC 06244 Orders: nitrofurantoin, 100 mg = 1 cap(s), Oral, BID, X 10 day(s), # 20 cap(s), Refills(s) 0, Pharmacy: [facility], 160, cm, 12/16/23 10:57:00 EST, Height/Length Dosing, 130, kg, 12/16/23 10:53:00 EST, Weight Dosing Follow-up No qualifying data available Problem List/Past Medical History Ongoing (Idiopathic) normal pressure hydrocephalus ASCVD (arteriosclerotic cardiovascular disease) Benign hypertension with chronic kidney disease BMI 50.0-59.9, adult CKD (chronic kidney disease) stage 3, GFR 30-59 ml/min Confusion Diabetic retinopathy Essential tremor Frequent falls Gait disorder Gross hematuria History of Uterine cancer HTN (hypertension) Hx of 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 Hypercholesterolem ia Insulin long-term use Major depressive disorder with single episode, in full remission Migraines Mixed incontinence Morbid obesity Obesity Polyuria Stage 3b chronic kidney disease (CKD) Type 2 diabetes mellitus with chronic kidney disease Type 2 diabetes mellitus with hypercholesterolem ia Urethral stricture UTI (urinary tract infection) UTI symptoms Vitamin D deficiency Historical No qualifying data Procedure/Surgical History Cardiac catheterization, Cataract, Colonoscopy, History of left knee replacement, History of right total knee replacement, ARYAN BSO - Total abdominal hysterectomy and bilateral salpingo-oophorect francisco. Medications acetaminophen 500 mg Tab, 1000 mg= 2 tab(s), Oral, Daily acetaminophen-oxyc odone 325 mg-5 mg Tab, 1 tab(s), Oral, q6hr Alpha Lipoic Acid 600 mg oral capsule, 600 mg= 1 cap(s), Oral, Daily atorvastatin 80 mg Tab, 80 mg= 1 tab (more content not included)... Normal [facility] Comment on above: Result Comment: Elec tronically Signed By: Mariangel Peña\.br\Date and Time Signed: 12/16/23 12:09 EST Lab Reportson 12-16-2023 Lab Reports [id number]#1.00TIFF [facility] Lab Reports [id number]#1.00TIFF [facility] Physician Referralon 024 Physician Referral [id number]. [id number]#1.00TIFF [facility] Physician Referral [id number]. [id number]#1.00TIFF [facility] Detention Recordson 12-09 Detention Records [id number]#1.00TIFF [facility] Detention Recordson 12-05 Detention Records [id number] 1374#1.00TIFF [facility] Transfer Inon 12-04-2023 Transfer In [id number] 626D#1.00TIFF [facility] Outside Mammographyon 2023 Outside Mammography [id number]#1.00TIFF [facility] RAD - Ultrasound Reporton RAD - Ultrasound Report [id number]#1.00TIFF [facility] Formson 11-22-2023 Forms [id number] 288E#1.00TIFF [facility] Detention Recordson 11-22 Detention Records [id number] 1988#1.00TIFF [facility] Physician Referralon 023 Physician Referral [id number]#1.00TIFF [facility] Ambulatory Visit Summaryon 1 01-22-2023 Ambulatory Visit Summary MALCOM KNOWLES :1955 Visit Date:11/21/2023 Ambulatory Visit Instructions Your Diagnosis Mixed incontinence Gross hematuria UTI (urinary tract infection) Type 2 diabetes mellitus with chronic kidney disease Tests Performed Urnls Dip Stick Auto w/o Microscopy POC 85090 Your Care Team Attending Physician - FARTUN MCCOLLUM, BRIGIDA Seals Primary Care Physician - Kaushal JUDGE, Jose Seals. Referring Physician - DEJUAN JUDGE, CHIP This [...] Saturday 10:15 AM EDT With: Kaushal JUDGE, Jose Lau Where: [facility] [place] Normal [address] [place] [address]- \.br\ You Need to Schedule the Following Appointments\.br\ Follow Up with FARTUN MCCOLLUM, BRIGIDA Seals, URL When: \.br\ Where:\.br\ [address]\.br\ [place] [address]\.br\ [id number]\.br\ Medications\.br\ What How Much When Why Instructions\.br\ [...] if questions or concerns \.br\ Unchanged zinc [facility] Detention Recordson 11-213 Detention Records [id number]#1.00TIFF Normal [facility] Detention Records [id number] 1ABA#1.00TIFF Normal [facility] Patient Educationon 11-21-20 Patient Education Urology [...] stimulation). ? For women, using a medical lab assistant to prevent urine leaks. This is a [...] urine. ? (more content not included)... 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 Referral per Chip Mcmullen due to urinary incontinence. BUN 24, Creatinine 1.5 done 10/01/23 -[facility]. Daughter is with her today Never been in our office before Last UTI Beginning of summer [facility] is where she is staying right now [...] or suspicious lesions Assessment/Plan 68 yo F nps referred by Chip Mcmullen for urinary incontinence. Pt is here with her daughter (POA) today. Currently resides at [facility]. Ambulates via wheelchair. Renal fxn: 10/01/23 - [...] and control BMs. Educational pamphlets provided. Ordered: 24512 Measure Post Void residual urine and/or bladder capacity by US- non-imaging Urnls Dip Stick Auto w/o Microscopy POC 97195 2. Urethral stricture (N35.919: Unspecified urethral stricture, [...] se OTC if available. -see #2 Ordered: 38319 Measure Post Void residual urine and/or bladder capacity by US- non-imaging Urnls Dip Stick Auto w/o Microscopy POC 56699 4. 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 Normal [facility] Comment on above: Result Comment: Elec [...] female. The patient received communication from the 7th grade social studies teacher, however, the 7th grade social studies teacher was uncertain about her responsibilities. The patient's [...] patient is under the care of an learning analyst. Her glycemic levels have decreased. The next appointment with the learning analyst is scheduled after a consultation with Dr. Zhu on 12/16/2023 for a 3-month follow-up. She is also under the care of an jewelry appraiser, an engineering assistant, and a retina specialist due to an [...] She has previously expressed satisfaction with the retirement environment. She only receives Tylenol with her [...] No other con (more content not included)... [facility] Comment on above: Result Comment: Elec tronically Signed By: Jose Snow MD\.br\Date and Time Signed: 11/20/23 17:33 EST\.br\Electronically Co-Signed By: Rebekah Ferraro\.br\Date and Time Co-Signed: 11/20/23 17:13 EST Detention Recordson 11-07 Detention Records [id number]#1.00TIFF [facility] Home Health Recordson 2022 Home Health Records [id number]#1.00TIFF [facility] Home Health Recordson 2022 Home Health Records [id number]#1.00TIFF [facility] Outside Mammographyon 2022 Outside Mammography [id number] [id number]#1.00TIFF [facility] Detention Recordson 10-28 Detention Records [id number] 114#1.00TIFF [facility] Interdisciplinary Note - Soc ial Workeron 10-16-2023 Interdisciplinary Note - Cable Tv Installer This SW received a message regarding placement for patient at [facility] and daughter having questions. This SW made tc to pateint's daughter and apologized for the delayed response. Per daughter, patient is doing better at this time and sticking with her diet, so therefore she believes she has been able to lose some weight. She explained that patient has a follow up appointment on 11/20/23 and she wants to see what Dr. Snow says at that time. She is hopeful that fantasma can stay in her current [place] apartment and that she does not have to move her to . SW's direct line was provided and SW encouraged her to reach out should she have needs or questions. SW will remain available. Normal [facility] Home Health Recordson 2022 [facility] Records [id number]#1.00TIFF Normal [facility] Auto Diffon 10-01-2023 Basophils/100 WBC (Bld) 1.0 % Normal 0.0-2.0 [facility] Comment on above: Order Comment: Order Added by Discern Expert. Performed By: #### 2 199543, [id number], 3735774, 6723977, 4013387, 99968787 #### [facility] [address] [place] [address] Basophils/Leukocyt es Auto (Bld) [Pure # fraction] 0.1 E9/L Normal 0.0-0.2 [facility] Comment on above: Order Comment: Order Added by Discern Expert. Performed By: #### 2 309558, 851829786, 3697971, 8531186, 2158628, 84652053 #### [facility] [address] [place] [address] Eosinophils/100 WBC (Bld) 5.3 % Normal 0.0-8.0 [facility] Comment on above: Order Comment: Order Added by Discern Expert. Performed By: #### 2 651124, 623782332, 5131602, 7777515, 7992852, 20064272 #### [facility] [address] [place] [address] Eosinophils/Leukoc ytes Auto (Bld) [Pure # fraction] 0.3 E9/L Normal 0.0-0.5 [facility] Comment on above: Order Comment: Order Added by Discern Expert. Performed By: #### 2 053351, 661376420, 5154897, 1151247, 2182694, 77878144 #### [facility] [address] [place] [address] Lymphocytes/100 WBC (Bld) 37.2 % Normal 14.0-50.0 [facility] Comment on above: Order Comment: Order Added by Discern Expert. Performed By: #### 2 146729, 012531715, 5505137, 1212782, 9578725, 25564142 #### [facility] [address] [place] [address] Lymphocytes/Leukoc ytes Auto (Bld) [Pure # fraction] 2.0 E9/L Normal 1.0-4.0 [facility] Comment on above: Order Comment: Order Added by José Luis Expert. Performed By: #### 2 432817, 977316249, 3637936, 4520181, 4453092, 15602330 #### [facility] [address] [place] [address] Monocytes/100 WBC (Bld) 10.7 % Normal 4.0-14.0 [facility] Comment on above: Order Comment: Order Added by José Luis Expert. Performed By: #### 2 426692, 303883545, 1930274, 7611903, 2740819, 17969712 #### [facility] [address] [place] [address] Monocytes/Leukocyt es Auto (Bld) [Pure # fraction] 0.6 E9/L Normal 0.2-1.0 [facility] Comment on above: Order Comment: Order Added by José Luis Expert. Performed By: #### 2 640732, 837583290, 2283297, 9103086, 8713530, 68753427 #### [facility] [address] [place] [address] Neutrophils/100 WBC (Bld) 45.8 % Normal 36.0-75.0 [facility] Comment on above: Order Comment: Order Added by Discern Expert. Performed By: #### 2 451743, 702275452, 8457764, 6477328, 9861756, 41680829 #### [facility] [address] [place] [address] Neutrophils/Leukoc ytes Auto (Bld) [Pure # fraction] 2.5 E9/L Normal 2.0-7.5 [facility] Comment on above: Order Comment: Order Added by Discern Expert. Performed By: #### 2 627237, 449190549, 0547656, 8559643, 1656696, 15816998 #### [facility] [address] [place] [address] CBC w/ Auto Diffon 3 Erythrocyte distribution width (RBC) [Ratio] 15.1 % High 10.9-14.2 [facility] Comment on above: Performed By: #### 2 054695, 112289015, 0135439, 8230627, 7737177, 21269103 #### [facility] [address] [place] [address] Hematocrit (Bld) [Volume fraction] 39.1 % Normal 34.0-46.0 [facility] Comment on above: Performed By: #### 2 054061, 752058254, 7824652, 6091870, 2743594, 65370179 #### [facility] [address] [place] [address] Hemoglobin (Bld) [Mass/Vol] 13.1 g/dL Normal 12.0-16.0 [facility] Comment on above: Performed By: #### 2 192557, 981149722, 1847331, 5907977, 2793665, 13350192 #### [facility] [address] [place] [address] MCH (RBC) [Entitic mass] 30.8 pg Normal 27.0-34.0 [facility] Comment on above: Performed By: #### 2 110544, 864555409, 5356046, 4507286, 9568824, 89704488 #### [facility] [address] [place] [address] MCHC (RBC) [Mass/Vol] 33.5 g/dL Normal 31.4-36.0 [facility] Comment on above: Performed By: #### 2 023668, 935248333, 4271378, 8409197, 9915638, 15284595 #### [facility] [address] [place], [place] [address] MCV (RBC) [Entitic vol] 92.0 fL Normal 80.0-100.0 [facility] Comment on above: Performed By: #### 2 572147, 311652521, 6260029, 4704977, 3973509, 04186352 #### [facility] [address] [place] [address] Platelet mean volume (Bld) [Entitic vol] 9.2 fL Normal 6.4-10.8 [facility] Comment on above: Performed By: #### 2 457366, 903032035, 2681923, 0460655, 4467903, 11963697 #### [facility] [address] [place] [address] Platelets (Bld) [#/Vol] 205.0 E9/L Normal 150.0-500.0 [facility] Comment on above: Performed By: #### 2 030339, 139421093, 1001150, 1067331, 7783230, 22452154 #### [facility] [address] [place], [place] [address] RBC (Bld) [#/Vol] 4.2 E12/L Low 4.3-5.9 [facility] Comment on above: Performed By: #### 2 804209, 579564914, 2215272, 0747741, 7478704, 07789219 #### [facility] [address] [place] [address] WBC corrected for nucl RBC Auto (Bld) [#/Vol] 5.4 E9/L Normal 4.0-11.0 [facility] Comment on above: Performed By: #### 2 573319, 083844014, 3372115, 7024629, 6671384, 84733593 #### [facility] [address] [place] [address] CHEMISTRYOrdered By: Peace guillaume on 10-01-2023 Albumin DL <= 20 mg/L (U) [Mass/Vol] 9.9 microgram/mL Normal 0.0 - 19.0 mcg/mL FT Remisol Albumin Elph (U) [Mass fraction] mg/dL [...] clinical context for interpretation. U Prot/Creat Ratio [facility] Invalid Interpretation Code 0.00 - 200.00 FT Remisol CHEMISTRYOrdered By: SYSTEM SYSTEM on 10-01-2023 Albumin [Mass/Vol] 3.8 g/dL Normal 3.3 - 5.0 gm/dL [place] [facility] [place] Remisol Albumin/Globulin [Mass ratio] 1.1 {ratio} Normal [...] 104 mmol/L Normal 101 - 111 mmol/L FT Remisol Cholesterol [Mass/Vol] 127 mg/dL Normal 120 [...] rate/Area] 37 mL/min/1.73 m2 Low >=59mL/min/1.73 m2 [facility] Chem S Comment on above: Interpretive Data: [...] 3.7 mmol/L Normal 3.5 - 5.3 mmol/L FT Remisol Protein [Mass/Vol] 7.4 g/dL Normal 6.0 - 7.8 gm/dL [place] [facility] [place] Remisol Sodium [Moles/Vol] 140 mmol/L Normal 135 - 145 mmol/L FT Remisol Triglyceride [Mass/Vol] 77 mg/dL Normal <=149mg/dL FT Remisol Urea nitrogen [Mass/Vol] 24 mg/dL High 5 - 21 mg/dL FT Remisol Urea nitrogen/Creatinin e [Mass ratio] 16 mg/mg Normal 10 - 20 [facility] Remisol CHEMISTRYOrdered By: Denisha Carlin on 10-01-2023 HbA1c (Bld) [Mass fraction] 8.2 % High <=5.9% [facility] ChemAutoSS CMPon 10-01-2023 Albumin [Mass/Vol] 3.8 g/dL Normal 3.3-5.0 [facility] Comment on above: Performed By: #### 2 583317, 497819930, 0463584, 6437163, 1743192, 36258765 ####[facility] [address] [place] [address] Albumin/Globulin (S) [Mass conc ratio] 1.1 Normal 1.1-2.2 [facility] Comment on above: Performed By: #### 2 017266, 619957912, 2237915, 4291854, 8022849, 83382001 ####[facility] [address] [place] [address] ALP [Catalytic activity/Vol] 61 Int._Unit/L Normal 21-98 [facility] Comment on above: Performed By: #### 2 817896, 383713903, 3033602, 6052784, 6234753, 69616399 ####[facility] [address] [place] [address] ALT No additional P-5'-P [Catalytic activity/Vol] 26 Int._Unit/L Normal 6-46 [facility] Comment on above: Performed By: #### 2 671611, 799096804, 4543680, 4104477, 7038801, 76132402 ####[facility] [address] [place] [address] Anion gap [Moles/Vol] 10 mmol/L Normal 6-16 [facility] Comment on above: Performed By: #### 2 594540, 184354537, 1142791, 0015084, 6780944, 26536054 ####[facility] [address] [place] [address] AST [Catalytic activity/Vol] 31 Int._Unit/L Normal 5-43 [facility] Comment on above: Performed By: #### 2 877945, 200765629, 0391702, 9212777, 9624257, 73658294 ####[facility] [address] [place] [address] Bilirubin [Mass/Vol] 1.1 mg/dL Normal 0.0-1.1 [facility] Comment on above: Performed By: #### 2 117402, 430791021, 3004525, 1623919, 7166460, 71234464 ####[facility] [address] [place] [address] Calcium [Mass/Vol] 9.4 mg/dL Normal 8.9-11.1 [facility] Comment on above: Performed By: #### 2 880956, 976637613, 0807328, 8687879, 1399110, 61888076 ####[facility] [address] [place] [address] Chloride [Moles/Vol] 104 mmol/L Normal 101-111 [facility] Comment on above: Performed By: #### 2 100017, 172346554, 7590396, 2884935, 8586041, 16787718 ####[facility] [address] [place] [address] CO2 [Moles/Vol] 30 mmol/L Normal 21-[address] [facility] Comment on above: Performed By: #### 2 977168, 954030923, 5135063, 7325484, 0277324, 95306945 ####[facility] [address] [place] [address] Creatinine [Mass/Vol] 1.5 mg/dL High 0.5-1.3 [facility] Comment on above: Performed By: #### 2 677159, 650828351, 7651293, 3888734, 0862445, 65110296 ####[facility] [address] [place] [address] Globulin (S) [Mass/Vol] 3.6 g/dL Normal 1.4-4.0 [facility] Comment on above: Performed By: #### 2 681977, 252697522, 7101812, 6884707, 1524552, 69699833 ####[facility] [address] [place] [address] Glucose [Mass/Vol] 176 mg/dL Normal 55-199 [facility] Comment on above: Result Comment: If t his glucose result represents a fasting glucose, interpretation should refer to the following reference range: 55-99 mg/dL Performed By: #### 2 117798, 014898850, 1270670, 6844135, 2496966, 71340401 ####[facility] [address] [place] [address] Potassium [Moles/Vol] 3.7 mmol/L Normal 3.5-5.3 [facility] Comment on above: Performed By: #### 2 741192, 120352238, 9701984, 7066204, 2585097, 70833607 ####[facility] [address] [place] [address] Protein [Mass/Vol] 7.4 g/dL Normal 6.0-7.8 [facility] Comment on above: Performed By: #### 2 887496, 700989760, 9770469, 7111141, 4438372, 92097398 ####[facility] [address] [place] [address] Sodium [Moles/Vol] 140 mmol/L Normal 135-145 [facility] Comment on above: Performed By: #### 2 996011, 416784645, 7029237, 1071988, 6631861, 86212659 ####[facility] [address] [place] [address] Urea nitrogen [Mass/Vol] 24 mg/dL High 5-21 [facility] Comment on above: Performed By: #### 2 283049, 718755246, 6953155, 5618478, 8019624, 49959981 ####[facility] [address] [place] [address] Urea nitrogen/Creatinin e [Mass ratio] 16 No Units Normal 09-20 [facility] Comment on above: Performed By: #### 2 818073, 507101888, 1094168, 7693349, 1965371, 97025961 ####[facility] [address] [place] [address] Consent for Treatmenton 09-03 Consent for Treatment [id number]#1.00TIFF Normal [facility] HEMATOLOGYOrdered By: SYSTEM SYSTEM on 10-01-2023 [...] 5.4 E9/L Normal 4.0 - 11.0 E9/L [facility] HemeAutoSS WisZ3qyc 10-01-2023 HbA1c (Bld) [Mass fraction] 8.2 % High <=5.9 [facility] Comment on above: Performed By: #### 2 541380, 764367780, 9012601, 6791943, 3412055, 42649555 ####[facility] [address] [place] [address] Lipid Panelon 10-01-2023 Cholesterol [Mass/Vol] 127 mg/dL Normal 120-200 [facility] Comment on above: Performed By: #### 2 205684, 029418569, 9029548, 9040131, 0377956, 39839260 ####[facility] [address] [place] [address] Cholesterol in HDL [Mass/Vol] 58 mg/dL Invalid Interpretation Code [facility] Comment on above: Result Comment: HDL > or equal to 60 mg/dL: Low cardiovascular risk HDL < 40 mg/dL : High cardiovascular risk Performed By: #### 2 975710, 066254079, 2210319, 8209101, 4952887, 56695837 ####[facility] [address] [place] [address] Cholesterol in LDL [Mass/Vol] 58 mg/dL Normal <=129 [facility] Comment on above: Performed By: #### 2 627103, 887208076, 2144038, 5866190, 5214461, 23947799 ####[facility] [address] [place] [address] Cholesterol in VLDL [Mass/Vol] 15 mg/dL Normal 7-40 [facility] Comment on above: Performed By: #### 2 490561, 798841804, 6552310, 4874155, 6205005, 81691337 ####[facility] [address] [place] [address] Triglyceride [Mass/Vol] 77 mg/dL Normal <=149 [facility] Comment on above: Performed By: #### 2 617264, 788596156, 0922578, 6275328, 2521104, 45934883 ####[facility] [address] [place] [address] Retail - Clinical Noteon Retail - Clinical Note [id number] 4633#1.00TIFF Normal [facility] U Microalbon 10-01-2023 Albumin DL <= 20 mg/L (U) [Mass/Vol] 9.9 microgram/mL Normal 0.0-19.0 [facility] Comment on above: Performed By: #### 1 020735682, 50006142 ####[facility] [address] [place] [address] U Protein/Creat Ratioon 09-03 Albumin Elph (U) [Mass fraction] <6.0 Invalid Interpretation Code [facility] Comment on above: Result Comment: The reference range and other method performance specifications have not been established for this test; results should be integrated into the clinical context for interpretation. Performed By: #### 1 096603229, 66258542 ####[facility] [address] [place] [address] Creatinine (U) [Mass/Vol] 28.4 mg/dL Invalid Interpretation Code [facility] Comment on above: Result Comment: The reference range and other method performance specifications have not been established for this test; results should be integrated into the clinical context for interpretation. Performed By: #### 1 [id number], [id number] ####[facility] [address] [place] [address] U Prot/Creat Ratio [facility] Invalid Interpretation Code .00-200.00 [facility] Comment on above: Performed By: #### 1 [id number], [id number] ####[place] [address] [place] [address] eGFRon 10-01-2023 GFR/1.73 sq M.predicted among non-blacks MDRD (S/P/Bld) [Vol rate/Area] 37 mL/min/1.73 m2 Low >=59 [facility] Comment on above: Order Comment: Order added by Discern Expert. Result Comment: Consultative Sales Associate maco kidney disease could be indicated at eGFR's of less than 60 mL/min/1.73m2. Kidney failure is indicated at less than 15 mL/min/1.73m2. Performed By: #### 2 [id number], [id number], [id number], [id number], [id number], [id number] ####[facility] [address] [place] [address] Interdisciplinary Note - Soc ial Workeron 09-23-2023 Interdisciplinary Note - Cable Tv Installer Consult received d/t pt's dx of DM. Patient requires bariatric equipment. Upon review of chart notes, patient resides at [facility]. Patient has been evaluated by [facility] for an appropriate wheelchair. If further needs, or DME are required conversation with staff at [facility] should be had for appropriate planning and continuity of care. SW will remain available. Normal [facility] Retail - Clinical Noteon Retail - Clinical Note [id number]#1.00TIFF Normal [facility] Consultation Noteon 09-18-20 Consultation Note [id number] 7E22#1.00TIFF Normal [facility] Family Medicine Office/Clini c Noteon 09-17-2023 Family Medicine Office/Clinic Note HPI Staff Malcom is a 67 year old female [facility] Needs a face to face for a [...] was in an assisted living facility in [place] where she received intensive physical therapy. However, [...] to 6500 g a month and other vvmj-eyd-vzmjyxq medications. However, the daughter states that this [...] as before. 4. Insulin long-term use (Z79.4: long-term (current) use of insulin) Discussed the need of having the patient increase the medication, but we will have Dr. Zhu adjust the medication. 5. BMI 50.0-59.9, adult (Z68.43: Body mass index [BMI] 50.0-59.9, adult) 6. Morbid obesi (more content not included)... Normal [facility] Comment on above: Result Comment: Elec tronically Signed By: Jose Snow MD\.br\Date and Time Signed: 09/17/23 07:26 EDT\.br\Electronically Co-Signed By: Romana Crouch\.br\Date and Time Co-Signed: 09/09/23 18:25 EDT Detention Recordson 09-11 Detention Records [id number] 36D7#1.00TIFF [facility] Ambulatory Visit Summaryon 1 Ambulatory Visit Summary MALCOM KNOWLES :1955 Visit Date:09/09/2023 Ambulatory Visit Instructions Your Diagnosis Type 2 diabetes mellitus with chronic kidney disease Type 2 diabetes mellitus with hypercholesterolem ia Benign hypertension with chronic kidney disease Insulin long-term use BMI 50.0-59.9, adult Morbid obesity Major depression in full remission CKD (chronic kidney disease) stage 3, GFR 30-59 ml/min 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 History of Uterine cancer Your Care Team Attending Physician - Jose Snow MD Primary Care Physician - Jose Snow MD This Is Your Medications List alpha-lipoic [...] Prescription (Freestyle Bang 2 sensors) Misc Prescription (SLR Technology Solutionsstyle Bang 2 system) Misc Prescription (Home health [...] BRIGIDA WILLOUGHBY PA-C Where: [facility] Caity Invalid Interpretation Code Type 2 diabetes mellitus with hypercholesterolemia [facility] Pre-Visit Planningon 023 Pre-Visit Planning --- From: Clifton DE LOS SANTOS, Luann To: Kaushal JUDGE, Jose Lau; Sent: 09/06/2023 10:38:47 EDT Subject: Pre-Visit Planning Due Date/Time: 09/06/2023 10:38:00 EDT Caller Name: MALCOM KNOWLES; Caller Number: , Sc Dr. Snow, *Based on your response below, can you [...] feel free to contact me at extension [phone]. Thank you! DENYS Melchor, RN, CCM, CCDS, CCDS-O Invalid Interpretation Code [address] [facility] Pre-Visit Planning --- From: Luann Lazo RN To: Kaushal JUDGE, Jose Lau; Sent: 09/06/2023 10:30:41 EDT Subject: Pre-Visit Planning Due Date/Time: 09/06/2023 10:30:00 EDT Caller Name: MALCOM KNOWLES; Caller Number: Shawn , M Sc Dr. Snow, *Based on your response below, can you please update the chronic problem list and address during this visit if appropriate?* During a pre-visit planning chart review, I noted the following documentation in the medical record indicates that this patient had a BMI of 52.32 on 07/15/2023. The National [place] of Health defines obesity as morbid if [...] feel free to contact me at extension [phone]. Thank you! DENYS Melchor, RN, CCM, CCDS, CCDS-O Invalid Interpretation Code [address] [facility] Home Recordson 09-04 Detention Records [id number] 68CC#1.00CD:127 Normal [facility] Home Recordson 09-03 Detention Records [id number]#1.00CD:127 Normal [facility] Detention Recordson 09-02 Detention Records [id number]#1.00CD:127 Normal [facility] Family Medicine Office/Clini c Noteon 08-23-2023 [...] basaglar to 12 untis. will refer to learning analyst. daughter will call with where she wants [...] answered. Pt has appointment scheduled with Dr. Snow in September. she will bring her BS [...] and treat better fitting wheel chair, Supply [facility] External Ambulatory Referral 2. BMI 50.0-59.9, adult (Z68.43: Body mass index [BMI] 50.0-59.9, adult) BMI education complete Ordered: [facility] External Ambulatory Referral 3. 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 Normal [facility] Comment on above: Result Comment: Elec tronically Signed By: Mariangel Peña\.br\Date and Time Signed: 08/23/23 09:36 EDT Detention Recordson 08-21 Detention Records [id number] A06#1.00CD:127 [facility] Detention Recordson 08-20 Detention Records [id number]#1.00CD:127 [facility] Detention Recordson 08-15 Detention Records [id number] E33E#1.00CD:127 [facility] Retail - Clinical Noteon Retail - Clinical Note [id number]#1.00CD:127 [facility] Urine Cultureon 07-28-2023 Bacteria identified Cx Nom (U) <9,000 colonies/ml mixed bacterial skin contaminants 2 Days PERFORMED BY: [facility] [address] [place] [address] MAGISTRATE SUZY FLORES M.D. [facility] Comment on above: Performed By: #### C UU #### [place] [id number] [facility] Physician Referralon 023 Physician Referral [id number]#1.00CD:127 [facility] Detention Recordson 07-23 Detention Records [id number]#1.00CD:127 [facility] Detention Recordson 07-18 Detention Records [id number] E789#1.00CD:127 Normal [facility] Detention Records [id number]#1.00CD:127 [facility] Retail - Clinical Noteon Retail - Clinical Note [id number]#1.00CD:127 [facility] Detention Recordson 07-16 Detention Records [id number]#1.00CD:127 [facility] Physician Referralon 023 Physician Referral [id number]#1.00CD:127 [facility] Retail - Clinical Noteon Retail - Clinical Note [id number]#1.00CD:127 [facility] Ambulatory Visit Summaryon 0 07-15-2023 Ambulatory Visit Summary MALCOM KNOWLES :1955 Visit Date:07/15/2023 Ambulatory Visit Instructions Your Diagnosis Insulin dependent type 2 diabetes mellitus BMI 50.0-59.9, adult Non-smoker long-term (current) use of insulin Your Care Team Attending Physician - Mariangel Peña Primary Care Physician - Jose Snow MD This Is Your Medications List Misc [...] Follow-Up Appointments Saturday 3:40 PM EDT With: Jose Snow MD Where: [facility] Normal [address] [place] [address]- \.br\ Medications\.br\ What How Much When Why Instructions\.br\ New Misc Prescription (Freestyle Bang 2 sensors) See instructions Insulin dependent type 2 diabetes mellitus Refills: 4 One box of sensors Printed Prescription\.br\ New Misc Prescription (Splashscoree 2 system) See instructions Insulin dependent type [...] mellitus\.br\ Obesity\.br\ UTI (urinary tract infection)\.br\ \.br\ [facility] Patient Correspondenceon Patient Correspondence [id number]#1.00CD:127 Normal [facility] XR shoulder LT min 2V*on XR shoulder LT min 2V* [facility] Main [place] [address] [place] [address] XRay Report Signed Patient: Malcom Knowles MR#: [id number] : 1955 Acct:[id number] Age/Sex: 67 / F ADM Date: 07/01/23 Loc: [facility] Room: [facility] Attending Dr: Lizandro Martins MD Copies [...] Aj Baker M.D.07/01/2023 2:36 PM Dictation Location: [place] [address] Transcribed By: [facility] 07/01/23 1436 Dictated By: Aj Baker II, MD 07/01/23 1434 Signed By: 07/01/23 1436 Normal [facility] XR shoulder LT min 2V* [facility] Distill Other XR shoulder LT min 2V* [facility] Other XR shoulder LT min 2V* [address] [facility] Other XR shoulder LT min 2V* [place] [address] [facility] Other XR shoulder LT min 2V* XRay Report [facility] Other XR shoulder LT min 2V* Signed [facility] Other XR shoulder LT min 2V* Patient: Malcom Knowles MR#: [id number] [facility] Other XR shoulder LT min 2V* [id number] [facility] Other XR shoulder LT min 2V* : 1955 Acct:[id number] [facility] Other XR shoulder LT min 2V* Age/Sex: 67 / F ADM Date: 07/01/23 [facility] Other XR shoulder LT min 2V* Loc: [facility] Room: Type: [facility] Other XR shoulder LT min 2V* Attending Dr: Lizandro Martins MD [facility] Other XR shoulder LT min 2V* Copies to: Lizandro Martins MD [employer] Other XR shoulder LT min 2V* Ordering Provider: Lizandro Martins MD [employer] Other XR shoulder LT min 2V* Date of Service: 07/01/23 [facility] Other XR shoulder LT min 2V* XR/XR shoulder LT min 2V*: Acute pain of left shoulder [employer] Other XR shoulder LT min 2V* XR shoulder LT min 2V* 07/01/2023 11:10 AM [employer] Other XR shoulder LT min 2V* SIGNS AND SYMPTOMS: Left shoulder pain with decreased range of motion [facility] Other XR shoulder LT min 2V* PROTOCOL: Frontal, Grashey, scapular Y views of the left shoulder [facility] Other XR shoulder LT min 2V* COMPARISON: None [facility] Other XR shoulder LT min 2V* FINDINGS: [employer] Other XR shoulder LT min 2V* There is mild hypertrophy of the acromioclavicular joint. There is narrowing of the glenohumeral [employer] Other XR shoulder LT min 2V* joint. There is no fracture or dislocation. The visualized left hemithorax is grossly intact. [facility] Other XR shoulder LT min 2V* XR/XR shoulder LT min 2V* [facility] Other XR shoulder LT min 2V* IMPRESSION: [employer] Other XR shoulder LT min 2V* No fracture or dislocation. [facility] Other XR shoulder LT min 2V* Degenerative changes are noted in the left shoulder, as above. [facility] Other XR shoulder LT min 2V* Impression dictated by: Aj Baker M.D.07/01/2023 2:36 PM [facility] Other XR shoulder LT min 2V* Dictation Location: [place] [address] [facility] Other XR shoulder LT min 2V* Transcribed By: FLORES 07/01/23 1436 [facility] Other XR shoulder LT min 2V* Dictated By: Aj Baker II, MD 07/01/23 1434 [facility] Other XR shoulder LT min 2V* Signed By: [employer] Other XR shoulder LT min 2V* 07/01/23 1436 [facility] Other Detention Recordson 05-23 Detention Records [id number]#1.00CD:127 [facility] Detention Recordson 05-22 Detention Records [id number]#1.00CD:127 [facility] Comment on above: Other Comment: PRINT ED FOR PROVIDER SIGNATURE.NDW C Urineon 05-18-2023 Bacteria identified Cx Nom (U) Microbiology PROCEDURE: Urine Culture [R1] SOURCE: U CleanCatch BODY SITE: COLLECTED DATE/TIME: 05/16/2023 15:19 EDT RECEIVED DATE/TIME: 05/16/2023 17:37 EDT START DATE/TIME: 05/16/2023 17:38 EDT FREE TEXT SOURCE: Adrian ENCARNACION, Mariangel ENCARNACION, Mariangel Pereira FINAL REPORTS Final Report [] Verified Date/Time: 05/18/2023 08:48 EDT 5,000 cfu/ml Mixed skin contaminants Performing Locations R1: This test was performed at: [facility], [address] [place] [address], [facility] , , [facility] Comment on above: Performed By: #### 2 [id number] ####[place] [address] Detention Recordson 05-17 Detention Records [id number] 115#1.00CD:127 [facility] Ambulatory Visit Summaryon 0 05-16-2023 Ambulatory Visit Summary MALCOM KNOWLES :1955 Visit Date:05/16/2023 Ambulatory Visit Instructions Your Diagnosis UTI (urinary tract infection) Your Care Team Attending Physician - Mariangel Peña Primary Care Physician - Kaushal JUDGE, Jose Lau This Is Your Medications List Misc Prescription [...] tract infection) Duration: 7 Days [place] [facility] [place] Unchanged fluconazole (Diflucan 150 mg Tab) 1 Tablets By Mouth Once UTI (urinary tract infection) Unchanged Misc Prescription (Misc DME Prescription) See instructions BD ultra fine pen needles 31G X 3/ 16. Use to inject insulin as directed. Dx E10.42 Pharmacy Information [facility] [place]: [address] [place] [address] [phone] Allergies sulfa drugs (Unknown) Problems Ongoing - Any problem that you are currently receiving treatment for. UTI (urinary tract infection) Normal [facility] Family Medicine Office/Clini c Noteon 05-16-2023 Family Medicine Office/Clinic Note Chief Complaint pt here to establish care, UTI symptoms HPI Staff Malcom is a 67 year old female presenting to Establish care Establish Care: History: Any previous diagnosis: Diabetes, HTN, Frequent falls, gerd, depression, syncope History of seeing any specialist: Dr Loredo Neurologist in [place], Dr Alegria , Cardiolgoy , Urolgosit When [...] She lives in an assisted living at [facility]. They dipped her urine. see results [...] day(s), # 14 tab(s), Refills(s) 0, Pharmacy: [facility] [place], 158, cm, 05/16/23 14:43:00 EDT, Height/Length [...] Immunizations Vaccine Date Status Comments SARS-CoV-2 (COVID-19) mRNAMUL.ORD![id number] 09/13/2022 Recorded SARS-CoV-2 (COVID-19) mRNA-1273 vaccine 01/13/2022 Recorded 2023-05-16: [id number] SARS-CoV-2 (COVID-19) mRNA-1273 vaccine 08/09/2021 Recorded SARS-CoV-2 (COVID-19) mRNA-1273 vaccine 07/12/2021 Recorded pneumococcal 13-valent vaccine 10/18/[address] [facility] Comment on above: Result Comment: Elec tronically Signed By: Mariangel Peña\.fani\Date and Time Signed: 05/16/23 15:28 EDT ECHOCARDIO M/2D COMPLETEon 0 05-01-2023 ECHOCARDIO M/2D COMPLETE Patient: MALCOM KNOWLES Exam Date: 05/01/2023 : 1955 Gender:F Ordering : DR. AJ YOUNG M.D. Admission #: [id number] Family : Order #: [id number] CLICK HERE TO VIEW EXAM ECHOCARDIOGRAM REPORT [...] Franco M.D. on 05/01/2023 at 18:18 Normal [facility] Lab Reportson 04-24-2023 Lab Reports [id number] [facility]#1.00CD:127 Normal [facility] Lab Reportson 04-17-2023 Lab Reports [id number] [facility]#1.00CD:127 Normal [facility] Office Visit (Cardiology)on 04-04-2023 Follow-up visit Diagnoses/Problems Assessed 2-vessel coronary artery disease (414.00) (I25.10) Chest pain (786.50) (R07.9) Diabetes mellitus (250.00) (E11.9) Essential hypertension (401.9) (I10) H/O non-ST elevation myocardial infarction (NSTEMI) (412) (I25.2) Hyperlipidemia (272.4) (E78.5) Morbid obesity with BMI of 50.0-59.9, adult (278.01,V85.43) (E66.01,Z68.43) Never a smoker Post PTCA (V45.82) (Z98.61) long term resident (V60.6) (Z59.3) Orders 2-vessel coronary artery disease Stop: Aspirin EC 81 MG TBEC Morbid obesity with BMI of 50.0-59.9, adult Healthy Weight Tips; Status:Complete - Retrospective Authorization; Done: [id number] Some eating tips that can help you lose weight.; Status:Complete - Retrospective Authorization; Done: [id number] SocHx: Never a smoker Tobacco Use Screening; Status:Complete; Done: [id number] Patient Instructions Please bring all medicines, vitamins, [...] 12:01:30 PM (more content not included)... Normal [facility] Tobacco Screening.on 023 Adult depression screening assessment No [facility] Emme [employer] DO Work Phone: Fall risk assessment b) One or more falls in the last year [facility] Work Phone: Tobacco use status [facility] b) No [facility] DO Work Phone: Lab Reportson 04-01-2023 Lab Reports [id number]#1.00CD:127 Normal [facility] Detention Recordson 03-20 Detention Records [id number] B4BB#1.00CD:127 Normal [facility] Detention Recordson 02-19 Detention Records [id number] C32F#1.00CD:127 [facility] CT CSPINE WO CONon 3 CT [...] THONY JOHNSTON Date: 2023-01-24 19:08 Normal [facility] CT HEAD WO CONon 01-24-2023 CT [...] FLORIN ZHONG Date: 2023-01-24 18:51 Normal [facility] XR SHOULDER LT 2V or >on XR SHOULDER LT 2V or > EXAM: XR SHOULDER LT 2V or > HISTORY: Unspecified fall COMPARISON: Shoulder x-rays 08/27/2022 TECHNIQUE: 3 views FINDINGS: IMPRESSION: No visualized fracture, dislocation, subluxation or osseous lesion. Moderate degenerative changes of the acromial clinically joint. Electronically authenticated by: NIALL CELIS Date: 2023-01-24 18:58 Normal [facility] MRI BRAIN WO CONon 3 [...] by: ADAMS RAGSDALE Date: 2023-01-18 15:07 Normal [facility] US CAROTID ART BILon 023 [...] ADAMS RAGSDALE Date: 2023-01-18 14:45 Normal [facility] CBC AUTO DIFFon 12-26-2022 BASO # 0.1 103/ul Normal 0.0-0.1 [facility] Comment on above: Performed By: #### A CET, CMP #### [facility] [address] [place] [address] Dr. Gilberto Ocampo Basophils/100 WBC (Bld) 0.8 % Normal 0.2-2.0 [facility] Comment on above: Performed By: #### A CET, CMP #### [facility] [address] [place] [address] Dr. Gilberto Ocampo EO # 0.6 103/ul Normal 0.0-0.7 [facility] Comment on above: Performed By: #### A CET, CMP #### [facility] [address] [place] [address] Dr. Gilberto Ocampo Eosinophils/100 WBC (Bld) 7.7 % Critically high 0.9-7.0 [facility] Comment on above: Performed By: #### A CET, CMP #### [facility] [address] [place] [address] Dr. Gilberto Ocampo Erythrocyte distribution width (RBC) [Ratio] 14.0 % Normal 11.0-15.0 [facility] Comment on above: Performed By: #### A CET, CMP #### [facility] [address] [place] [address] Dr. Gilberto Ocampo Hematocrit (Bld) [Volume fraction] 39.0 % Normal 36.0-48.0 [facility] Comment on above: Performed By: #### A CET, CMP #### [facility] [address] [place] [address] Dr. Gilberto Ocampo Hemoglobin (Bld) [Mass/Vol] 11.8 g/dL Critically low 12.0-16.0 [facility] Comment on above: Performed By: #### A CET, CMP #### [facility] [address] [place] [address] Dr. Gilberto Ocampo IG # 0.02 10e3/ul Normal 0.00-0.03 [facility] Comment on above: Performed By: #### A CET, CMP #### [facility] [address] [place] [address] Dr. Gilberto Ocampo IG % 0.3 % Normal 0.0-0.5 [facility] Comment on above: Performed By: #### A CET, CMP #### [facility] [address] [place] [address] Dr. Gilberto Ocampo LYMPH # 2.1 103/ul Normal 1.2-3.8 [facility] Comment on above: Performed By: #### A CET, CMP #### [facility] [address] [place] [address] Dr. Gilberto Ocampo Lymphocytes/100 WBC (Bld) 29.2 % Normal 20.5-60.0 [facility] Comment on above: Performed By: #### A CET, CMP #### [facility] [address] [place] [address] Dr. Gilberto Ocampo MANUAL DIFF REQ NO Normal [facility] Comment on above: Performed By: #### A CET, CMP #### [facility] [address] [place] [address] Dr. Gilberto Ocampo MCH (RBC) [Entitic mass] 29.2 pg Normal 26.7-34.0 [facility] Comment on above: Performed By: #### A CET, CMP #### [facility] [address] [place] [address] Dr. Gilberto Ocampo MCHC (RBC) [Mass/Vol] 30.3 g/dL Normal 29.9-35.2 [facility] Comment on above: Performed By: #### A CET, CMP #### [facility] [address] [place] [address] Dr. Gilberto Ocampo MCV (RBC) [Entitic vol] 96.5 fL Normal 81.0-99.0 [facility] Comment on above: Performed By: #### A CET, CMP #### [facility] [address] [place] [address] Dr. Gilberto Ocampo MONO # 0.6 103/ul Normal 0.3-0.8 [facility] Comment on above: Performed By: #### A CET, CMP #### [facility] [address] [place] [address] Dr. Gilberto Ocampo Monocytes/100 WBC (Bld) 9.0 % Normal 1.7-12.0 [facility] Comment on above: Performed By: #### A CET, CMP #### [facility] [address] [place] [address] Dr. Gilberto Ocampo NEUT # 3.8 103/ul Normal 1.4-6.5 [facility] Comment on above: Performed By: #### A CET, CMP #### [facility] [address] [place] [address] Dr. Gilberto Ocampo Neutrophils/100 WBC (Bld) 53.0 % Normal 43.0-75.0 [facility] Comment on above: Performed By: #### A CET, CMP #### [facility] [address] [place] [address] Dr. Gilberto Ocampo Platelet mean volume (Bld) [Entitic vol] 11.9 fL Normal 9.5-13.5 [facility] Comment on above: Performed By: #### A CET, CMP #### [facility] [address] [place] [address] Dr. Gilberto Ocampo PLT 209 103/ul Normal 150-450 [facility] Comment on above: Performed By: #### A CET, CMP #### [facility] [address] [place] [address] Dr. Gilberto Ocampo RBC 4.04 106/ul Critically low 4.20-5.40 [facility] Comment on above: Performed By: #### A CET, CMP #### [facility] [address] [place] [address] Dr. Gilberto Ocampo WBC 7.1 103/ul Normal 4.0-11.0 [facility] Comment on above: Performed By: #### A CET, CMP #### [facility] [address] [place] [address] Dr. Gilberto Ocampo GLYCOHEMOGLOBIN A1Con 2022 ADA RECOMMENDATION SEE BELOW Normal [facility] Comment on above: Result Comment: ADA RECOMMENDED LIMIT 4.0 - 6.0 ADA THERAPEUTIC TARGET < 7.0 ACTION SUGGESTED > 7.0 Performed By: #### A 1C #### [facility] [address] [place] [address] Dr. Gilberto Ocampo Glucose [Mass/Vol] 189 mg/dL Normal [facility] Comment on above: Performed By: #### A 1C #### [facility] [address] [address] [address] Gilberto Ocampo HbA1c (Bld) [Mass fraction] 8.2 % Critically high 4.5-6.2 [facility] Comment on above: Performed By: #### A 1C #### [facility] [address] [place] [address] Dr. Gilberto Ocampo PROF 14(COMP METB)on 023 Albumin [Mass/Vol] 3.0 g/dL Critically low 3.4-5.0 [facility] Comment on above: Performed By: #### C MP #### [facility] [address] [place] [address] Dr. Gilberto Ocampo Albumin/Globulin [Mass ratio] 0.8 {ratio} Normal [facility] Comment on above: Performed By: #### C MP #### [facility] [address] [place] [address] Dr. Gilberto Ocampo ALP [Catalytic activity/Vol] 89 U/L Normal 46-116 [facility] Comment on above: Performed By: #### C MP #### [facility] [address] [place] [address] Dr. Gilberto Ocampo ALT [Catalytic activity/Vol] 22 U/L Normal 14-59 [facility] Comment on above: Performed By: #### C MP #### [facility] [address] [place] [address] Dr. Gilberto Ocampo Anion gap [Moles/Vol] 12.4 mmol/L Normal [facility] Comment on above: Performed By: #### C MP #### [facility] [address] [place] [address] Dr. Gilberto Ocampo AST [Catalytic activity/Vol] 19 U/L Normal 15-37 [facility] Comment on above: Performed By: #### C MP #### [facility] [address] [address] [address] Gilberto Ocampo Bilirubin [Mass/Vol] 0.6 mg/dL Normal 0.2-1.0 [facility] Comment on above: Performed By: #### C MP #### [facility] [address] [address] [address] Gilberto Ocampo Calcium [Mass/Vol] 8.9 mg/dL Normal 8.5-10.1 [facility] Comment on above: Performed By: #### C MP #### [facility] [address] [address] [address] Gilberto Ocampo Chloride [Moles/Vol] 103 mmol/L Normal 98-107 [facility] Comment on above: Performed By: #### C MP #### [facility] [address] [address] [address] Gilberto Ocampo CO2 [Moles/Vol] 28.5 mmol/L Normal 21.0-32.0 [facility] Comment on above: Performed By: #### C MP #### [facility] [address] [address] [address] Gilberto Ocampo Creatinine [Mass/Vol] 1.52 mg/dL Critically high 0.55-1.02 [facility] Comment on above: Performed By: #### C MP #### [facility] [address] [address] [address] Gilberto Ocampo EGFR-AF WELSH 41 mL/min/1.73m2 Critically low >=60 [facility] Comment on above: Performed By: #### C MP #### [facility] [address] [address] [address] Gilberto Ocampo EGFR-NON AF WELSH 34 mL/min/1.73m2 Critically low >=60 [facility] Comment on above: Performed By: #### C MP #### [facility] [address] [address] [address] Gilberto Ocampo Globulin (S) [Mass/Vol] 3.8 g/dL Normal [facility] Comment on above: Performed By: #### C MP #### [facility] [address] [address] [address] Gilberto Ocampo Glucose [Mass/Vol] 206 mg/dL Critically high 74-106 [facility] Comment on above: Performed By: #### C MP #### [facility] [address] [address] [address] Gilberto Ocampo Potassium [Moles/Vol] 3.9 mmol/L Normal 3.5-5.1 [facility] Comment on above: Performed By: #### C MP #### [facility] [address] [address] [address] Gilberto Ocampo Protein [Mass/Vol] 6.8 g/dL Normal 6.4-8.2 [facility] Comment on above: Performed By: #### C MP #### [facility] [address] [place] [address] Dr. Gilberto Ocampo Sodium [Moles/Vol] 140 mmol/L Normal 136-145 [facility] Comment on above: Performed By: #### C MP #### [facility] [address] [place] [address] Dr. Gilberto Ocampo Urea nitrogen [Mass/Vol] 16.0 mg/dL Normal 7.0-18.0 [facility] Comment on above: Performed By: #### C MP #### [facility] [address] [place] [address] Dr. Gilberto Ocampo Urea nitrogen/Creatinin e [Mass ratio] 10.5 mg/mg Normal [facility] Comment on above: Performed By: #### C MP #### [facility] [address] [place] [address] Dr. Gilberto Ocampo CULTURE URINEon 12-17-2022 CULTURE URINE Culture Observations: NO GROWTH. Normal [facility] Comment on above: Performed By: #### A CET, CMP #### [facility] [address] [place] [address] Dr. Gilberto Ocampo UA RANDOMon 12-17-2022 Bilirubin Ql (U) Negative Normal NEGATIVE [facility] Comment on above: Performed By: #### A CET, CMP #### [facility] [address] [place] [address] Dr. Gilberto Ocampo Clarity (U) CLEAR Normal CLEAR [facility] Comment on above: Performed By: #### A CET, CMP #### [facility] [address] [place] [address] Dr. Gilberto Ocampo Color (U) YELLOW Normal YELLOW [facility] Comment on above: Performed By: #### A CET, CMP #### [facility] [address] [place] [address] Dr. Gilberto Ocampo Glucose Ql (U) 250 mg/dl Abnormal NEGATIVE [facility] Comment on above: Performed By: #### A CET, CMP #### [facility] [address] [place] [address] Dr. Gilberto Ocampo Hemoglobin Ql (U) TRACE-INTACT Abnormal NEGATIVE [facility] Comment on above: Performed By: #### A CET, CMP #### [facility] [address] [place] [address] Dr. Gilberto Ocampo Ketones Ql (U) TRACE Abnormal NEGATIVE [facility] Comment on above: Performed By: #### A CET, CMP #### [facility] [address] [place] [address] Dr. Gilberto Ocampo LEUKOCYTES Negative Normal NEGATIVE [facility] Comment on above: Performed By: #### A CET, CMP #### [facility] [address] [place] [address] Dr. Gilberto Ocampo Nitrite Ql (U) Negative Normal NEGATIVE [facility] Comment on above: Performed By: #### A CET, CMP #### [facility] [address] [place] [address] Dr. Gilberto Ocampo pH (U) 5.0 [pH] Normal 5-9 [facility] Comment on above: Performed By: #### A CET, CMP #### [facility] [address] [place] [address] Dr. Gilberto Ocampo SPEC GRAVITY >=1.030 Abnormal 1.005-<=1.025 [facility] Comment on above: Performed By: #### A CET, CMP #### [facility] [address] [place] [address] Dr. Gilberto Ocampo UA PROTEIN TRACE Normal NEGATIVE/ TRACE [facility] Comment on above: Performed By: #### A CET, CMP #### [facility] [address] [address] [address] Gilberto Ocampo Urobilinogen Qn (U) 0.2 {Torres'U}/dL Normal 0.2 - 1.0 [facility] Comment on above: Performed By: #### A CET, CMP #### [facility] [address] [address] [address] Gilberto Ocampo XR HUMERUS RT MIN [...] by: THONY CLARK Date: 2022-11-17 02:30 Normal [facility] XR SHOULDER RT 2V or >on XR [...] THONY CLARK Date: 2022-11-17 03:30 Normal [facility] CULTURE URINEon 11-12-2022 CULTURE URINE Isolate [...] F Trimethoprim/Sulfa methoxazole <=20 S F Normal [facility] Comment on above: Performed By: #### A BOYD, CMP #### [facility] [address] [place] [address] Dr. Gilberto Ocampo CULTURE URINEon 11-11-2022 CULTURE [...] Trimethoprim/Sulfa methoxazole <=20 S F Normal [facility] Comment on above: Performed By: #### A BOYD, CMP #### [facility] [address] [place] [address] Dr. Gilberto Ocampo ACETAMINOPHENon 11-09-2022 Acetaminophen [Mass/Vol] ug/mL Critically low 10.0-30.0 [facility] Comment on above: Performed By: #### A BOYD, CMP #### [facility] [address] [place] [address] Dr. Gilberto Ocampo CBC AUTO DIFFon 11-09-2022 BASO # 0.0 103/ul Normal 0.0-0.1 [facility] Comment on above: Performed By: #### C BC #### [facility] [address] [place] [address] Dr. Gilberto Ocampo Basophils/100 WBC (Bld) 0.5 % Normal 0.2-2.0 [facility] Comment on above: Performed By: #### C BC #### [facility] [address] [place] [address] Dr. Gilberto Ocampo EO # 0.4 103/ul Normal 0.0-0.7 [facility] Comment on above: Performed By: #### C BC #### [facility] [address] [place] [address] Dr. Gilberto Ocampo Eosinophils/100 WBC (Bld) 6.4 % Normal 0.9-7.0 [facility] Comment on above: Performed By: #### C BC #### [facility] [address] [place] [address] Dr. Gilberto Ocampo Erythrocyte distribution width (RBC) [Ratio] 13.7 % Normal 11.0-15.0 [facility] Comment on above: Performed By: #### C BC #### [facility] [address] [place] [address] Dr. Gilberto Ocampo Hematocrit (Bld) [Volume fraction] 38.1 % Normal 36.0-48.0 [facility] Comment on above: Performed By: #### C BC #### [facility] [address] [place] [address] Dr. Gilberto Ocampo Hemoglobin (Bld) [Mass/Vol] 12.2 g/dL Normal 12.0-16.0 [facility] Comment on above: Performed By: #### C BC #### [facility] [address] [place] [address] Dr. Gilberto Ocampo IG # 0.02 10e3/ul Normal 0.00-0.03 [facility] Comment on above: Performed By: #### C BC #### [facility] [address] [place] [address] Dr. Gilberto Ocampo IG % 0.3 % Normal 0.0-0.5 [facility] Comment on above: Performed By: #### C BC #### [facility] [address] [place] [address] Dr. Gilberto Ocampo LYMPH # 2.1 103/ul Normal 1.2-3.8 [facility] Comment on above: Performed By: #### C BC #### [facility] [address] [place] [address] Dr. Gilberto Ocampo Lymphocytes/100 WBC (Bld) 33.1 % Normal 20.5-60.0 [facility] Comment on above: Performed By: #### C BC #### [facility] [address] [place] [address] Dr. Gilberto Ocampo MANUAL DIFF REQ NO Normal [facility] Comment on above: Performed By: #### C BC #### [facility] [address] [place] [address] Dr. Gilberto Ocampo MCH (RBC) [Entitic mass] 29.6 pg Normal 26.7-34.0 [facility] Comment on above: Performed By: #### C BC #### [facility] [address] [place] [address] Dr. Gilberto Ocampo MCHC (RBC) [Mass/Vol] 32.0 g/dL Normal 29.9-35.2 [facility] Comment on above: Performed By: #### C BC #### [facility] [address] [place] [address] Dr. Gilberto Ocampo MCV (RBC) [Entitic vol] 92.5 fL Normal 81.0-99.0 [facility] Comment on above: Performed By: #### C BC #### [facility] [address] [place] [address] Dr. Gilberto Ocampo MONO # 0.7 103/ul Normal 0.3-0.8 [facility] Comment on above: Performed By: #### C BC #### [facility] [address] [place] [address] Dr. Gilberto Ocampo Monocytes/100 WBC (Bld) 11.6 % Normal 1.7-12.0 [facility] Comment on above: Performed By: #### C BC #### [facility] [address] [place] [address] Dr. Gilberto Ocampo NEUT # 3.0 103/ul Normal 1.4-6.5 [facility] Comment on above: Performed By: #### C BC #### [facility] [address] [place] [address] Dr. Gilberto Ocampo Neutrophils/100 WBC (Bld) 48.1 % Normal 43.0-75.0 [facility] Comment on above: Performed By: #### C BC #### [facility] [address] [place] [address] Dr. Gilberto Ocampo Platelet mean volume (Bld) [Entitic vol] 10.8 fL Normal 9.5-13.5 [facility] Comment on above: Performed By: #### C BC #### [facility] [address] [place] [address] Dr. Gilberto Ocampo PLT 212 103/ul Normal 150-450 [facility] Comment on above: Performed By: #### C BC #### [facility] [address] [place] [address] Dr. Gilberto Ocampo RBC 4.12 106/ul Critically low 4.20-5.40 [facility] Comment on above: Performed By: #### C BC #### [facility] [address] [place] [address] Dr. Gilberto Ocampo WBC 6.3 103/ul Normal 4.0-11.0 [facility] Comment on above: Performed By: #### C BC #### [facility] [address] [place] [address] Dr. Gilberto Ocampo DRUG SCREEN RAPID (URINE)on 11-09-2022 AMP Negative Normal NEGATIVE [facility] Comment on above: Performed By: #### U ACSWALI, UMICRO #### [facility] [address] [place] [address] Dr. Gilberto Ocampo BAR Negative Normal NEGATIVE [facility] Comment on above: Performed By: #### U ACSIND, UMICRO #### [facility] [address] [place] [address] Dr. Gilberto Ocampo BUP Negative Normal NEGATIVE [facility] Comment on above: Performed By: #### U ACSIND, UMICRO #### [facility] [address] [place] [address] Dr. Gilberto Ocampo BZO Negative Normal NEGATIVE [facility] Comment on above: Performed By: #### U ACSIND, UMICRO #### [facility] [address] [place] [address] Dr. Gilberto Ocampo CARLIE Negative Normal NEGATIVE [facility] Comment on above: Performed By: #### U ACSIND, UMICRO #### [facility] [address] [place] [address] Dr. Gilberto Ocampo CUT-OFFS SEE BELOW Normal [facility] Comment on above: Result Comment: AMP (Amphetamine): 500ng/mL, BAR (Barbituates): 200 ng/mL, BZO (Benzodiazepines): 150 ng/mL, BUP (Buprenorphine): 10 ng/mL, CARLIE (Cocaine): 150 ng/mL, mAMP (Methamphetamine): 500 ng/mL, MTD (Methadone): 200 ng/mL, OPI (Opiates): 100 ng/mL, OXY (Oxycodone): 100 ng/mL, PCP (Phencyclidine): 25 ng/mL, PPX (Propoxyphene): 300 ng/mL, THC (Cannabinoids): 50 ng/mL, TCA (Trycyclic Antidepressants): 300 ng/mL Performed By: #### U ACSIND UMICRO #### [facility] [address] [place] [address] Dr. Gilberto Ocampo DRUG CUT HEADER DRUG CLASS TEST SYSTEM CUT-OFF CONCENTRATIONS ARE FOLLOWS: Normal [facility] Comment on above: Performed By: #### U ACSIND UMICRO #### [facility] [address] [place] [address] Dr. Gilberto Ocampo mAMP Negative Normal NEGATIVE [facility] Comment on above: Performed By: #### U ACSIND UMICRO #### [facility] [address] [place] [address] Dr. Gilberto Ocampo MTD Negative Normal NEGATIVE [facility] Comment on above: Performed By: #### U ACSIND UMICRO #### [facility] [address] [place] [address] Dr. Gilberto Ocampo OPI Negative Normal NEGATIVE [facility] Comment on above: Performed By: #### U ACSIND UMICRO #### [facility] [address] [place] [address] Dr. Gilberto Ocampo OXY Negative Normal NEGATIVE [facility] Comment on above: Performed By: #### U ACSIND, UMICRO #### [facility] [address] [address] [address] Gilberto Ocampo PCP Negative Normal NEGATIVE [facility] Comment on above: Performed By: #### U ACSIND, UMICRO #### [facility] [address] [address] [address] Gilberto Ocampo PPX Negative Normal NEGATIVE [facility] Comment on above: Performed By: #### U ACSIND, UMICRO #### [facility] [address] [place] [address] Dr. Gilberto Ocampo TCA Negative Normal NEGATIVE [facility] Comment on above: Performed By: #### U ACSIND, UMICRO #### [facility] [address] [place] [address] Dr. Gilberto Ocampo THC Negative Normal NEGATIVE [facility] Comment on above: Performed By: #### U ACSIND, UMICRO #### [facility] [address] [place] [address] Dr. Gilberto Ocampo ER URINE PROFILEon 2 Clarity (U) CLOUDY Abnormal CLEAR [facility] Comment on above: Performed By: #### U ACSIND, UMICRO #### [facility] [address] [place] [address] Dr. Gilberto ROWAN A micrscopic examination will be performed if indicated. Normal [facility] Comment on above: Performed By: #### U ACSIND, UMICRO #### [facility] [address] [place] [address] Dr. Gilberto Ocampo pH (U) 6.0 [pH] Normal 5-9 [facility] Comment on above: Performed By: #### U ACSIND, UMICRO #### [facility] [address] [place] [address] Dr. Gilberto Ocampo Protein (U) [Mass/Vol] 30 mg/dL Abnormal NEGATIVE/ TRACE [facility] Comment on above: Performed By: #### U ACSIND, UMICRO #### [facility] [address] [place] [address] Dr. Gilberto Ocampo ETHANOL (BLD ALC)on 11-09-20 22 ALC NOTE NOTE: 80 mg/dl is the legal limit for a blood alcohol level Normal [facility] Comment on above: Performed By: #### E TH #### [facility] [address] [place] [address] Dr. Gilberto Ocampo Ethanol [Mass/Vol] mg/dL Normal [facility] Comment on above: Performed By: #### E TH #### [facility] [address] [place] [address] Dr. Gilberto Ocampo GLYCOHEMOGLOBIN A1Con 2021 ADA RECOMMENDATION SEE BELOW Normal [facility] Comment on above: Result Comment: ADA RECOMMENDED LIMIT 4.0 - 6.0 ADA THERAPEUTIC TARGET < 7.0 ACTION SUGGESTED > 7.0 Performed By: #### U ACSWALI, UMICRO #### [facility] [address] [place] [address] Dr. Gilberto Ocampo Glucose [Mass/Vol] 177 mg/dL Normal [facility] Comment on above: Performed By: #### U ACSWALI, UMICRO #### [facility] [address] [place] [address] Dr. Gilberto Ocampo HbA1c (Bld) [Mass fraction] 7.8 % Critically high 4.5-6.2 [facility] Comment on above: Performed By: #### U ACSWALI, UMICRO #### [facility] [address] [place] [address] Dr. Gilberto Ocampo LIPID PROFILEon 11-09-2022 CHOL-HDL RATIO NORM SEE BELOW Normal [facility] Comment on above: Result Comment: 3.3 - 4.4 LOW RISK 4.4 - 7.1 AVERAGE RISK 7.1 - 11.0 MODERATE RISK >11.0 HIGH RISK Performed By: #### L IPID #### [facility] [address] [place] [address] Dr. Gilberto Ocampo Cholesterol [Mass/Vol] 111 mg/dL Normal <=200 [facility] Comment on above: Performed By: #### L IPID #### [facility] [address] [address] [address] Gilberto Ocampo Cholesterol in HDL [Mass/Vol] 64 mg/dL Critically high 40-60 [facility] Comment on above: Performed By: #### L IPID #### [facility] [address] [address] [address] Gilberto Ocampo Cholesterol in LDL [Mass/Vol] 28.6 mg/dL Normal [facility] Comment on above: Performed By: #### L IPID #### [facility] [address] [address] [address] Gilberto Ocampo Cholesterol.total/ Cholesterol in HDL [Mass ratio] 1.7 {ratio} Normal [facility] Comment on above: Performed By: #### L IPID #### [facility] [address] [address] [address] Gilberto Ocampo HDL NORMAL > or = 60 mg/dl - LOW CARDIOVASCULAR RISK <40 mg/dl - HIGH CARDIOVASCULAR RISK Normal [facility] Comment on above: Performed By: #### L IPID #### [facility] [address] [address] [address] Gilberto Ocampo LDL CALC NORMAL SEE BELOW Normal [facility] Comment on above: Result Comment: <100 mg/dl OPTIMAL 100 - 129 mg/dl NEAR OR ABOVE OPTIMAL 130 - 159 mg/dl BORDERLINE HIGH 160 - 189 mg/dl HIGH >190 mg/dl VERY HIGH Performed By: #### L IPID #### [facility] [address] [address] [address] Gilberto Ocampo Triglyceride [Mass/Vol] 92 mg/dL Normal <=150 [facility] Comment on above: Performed By: #### L IPID #### [facility] [address] [address] [address] Gilberto Ocampo VLDL CALC 18.4 mg/dL Normal [facility] Comment on above: Performed By: #### L IPID #### [facility] [address] [address] [address] Gilberto Ocampo PROF 14(COMP METB)on 022 Albumin [Mass/Vol] 3.5 g/dL Normal 3.4-5.0 [facility] Comment on above: Performed By: #### A CET, CMP #### [facility] [address] [place] [address] Dr. Gilberto Ocampo Albumin/Globulin [Mass ratio] 0.9 {ratio} Normal [facility] Comment on above: Performed By: #### A CET, CMP #### [facility] [address] [address] [address] Gilberto Ocampo ALP [Catalytic activity/Vol] 87 U/L Normal 46-116 [facility] Comment on above: Performed By: #### A CET, CMP #### [facility] [address] [address] [address] Gilberto Ocampo ALT [Catalytic activity/Vol] 23 U/L Normal 14-59 [facility] Comment on above: Performed By: #### A CET, CMP #### [facility] [address] [address] [address] Gilberto Ocampo Anion gap [Moles/Vol] 9.3 mmol/L Normal [facility] Comment on above: Performed By: #### A CET, CMP #### [facility] [address] [address] [address] Gilberto Ocampo AST [Catalytic activity/Vol] 24 U/L Normal 15-37 [facility] Comment on above: Performed By: #### A CET, CMP #### [facility] [address] [address] [address] Gilberto Ocampo Bilirubin [Mass/Vol] 1.0 mg/dL Normal 0.2-1.0 [facility] [facility] Comment on above: Performed By: #### A CET, CMP #### [facility] [address] [address] [address] Gilberto Ocampo Calcium [Mass/Vol] 8.7 mg/dL Normal 8.5-10.1 [facility] Comment on above: Performed By: #### A CET, CMP #### [facility] [address] [address] [address] Gilberto Ocampo Chloride [Moles/Vol] 102 mmol/L Normal 98-107 [facility] Comment on above: Performed By: #### A CET, CMP #### [facility] [address] [place] [address] Dr. Gilberto Ocampo CO2 [Moles/Vol] 32.4 mmol/L Critically high 21.0-32.0 [facility] Comment on above: Performed By: #### A CET, CMP #### [facility] [address] [place] [address] Dr. Gilberto Ocampo Creatinine [Mass/Vol] 1.58 mg/dL Critically high 0.55-1.02 [facility] Comment on above: Performed By: #### A CET, CMP #### [facility] [address] [place] [address] Dr. Gilberto Ocampo EGFR-AF WELSH 39 mL/min/1.73m2 Critically low >=60 [facility] Comment on above: Performed By: #### A CET, CMP #### [facility] [address] [place] [address] Dr. Gilberto Ocampo EGFR-NON AF WELSH 32 mL/min/1.73m2 Critically low >=60 [facility] Comment on above: Performed By: #### A CET, CMP #### [facility] [address] [place] [address] Dr. iGlberto Ocampo Globulin (S) [Mass/Vol] 3.7 g/dL Normal [facility] Comment on above: Performed By: #### A CET, CMP #### [facility] [address] [place] [address] Dr. Gilberto Ocampo Glucose [Mass/Vol] 272 mg/dL Critically high 74-106 [facility] Comment on above: Performed By: #### A CET, CMP #### [facility] [address] [place] [address] Dr. Gilberto Ocampo Potassium [Moles/Vol] 3.7 mmol/L Normal 3.5-5.1 [facility] Comment on above: Performed By: #### A CET, CMP #### [facility] [address] [place] [address] Dr. Gilberto Ocampo Protein [Mass/Vol] 7.2 g/dL Normal 6.4-8.2 [facility] Comment on above: Performed By: #### A CET, CMP #### [facility] [address] [place] [address] Dr. Gilberto Ocampo Sodium [Moles/Vol] 140 mmol/L Normal 136-145 [facility] Comment on above: Performed By: #### A CET, CMP #### [facility] [address] [place] [address] Dr. Gilberto Ocampo Urea nitrogen [Mass/Vol] 20.0 mg/dL Critically high 7.0-18.0 [facility] Comment on above: Performed By: #### A CET, CMP #### [facility] [address] [place] [address] Dr. Gilberto Ocampo Urea nitrogen/Creatinin e [Mass ratio] 12.7 mg/mg Normal [facility] Comment on above: Performed By: #### A CET, CMP #### [facility] [address] [place] [address] Dr. Gilberto Ocampo UA (CLEAN/CATCH) EVENTS TRAFFIC CONTROLLER/MICRO I F IND.on 11-09-2022 Bilirubin Ql (U) Negative Normal NEGATIVE [facility] Comment on above: Performed By: #### U ACSWALI UMICRO #### [facility] [address] [place] [address] Dr. Gilberto Ocampo Clarity (U) CLEAR Normal CLEAR [facility] Comment on above: Performed By: #### U ACSWALI UMICRO #### [facility] [address] [place] [address] Dr. Gilberto Ocampo Color (U) LT. YELLOW Normal YELLOW [facility] Comment on above: Performed By: #### U ACSWALI UMICRO #### [facility] [address] [place] [address] Dr. Gilberto Ocampo Glucose Ql (U) Negative Normal NEGATIVE [facility] Comment on above: Performed By: #### U ACSIND, UMICRO #### [facility] [address] [place] [address] Dr. Gilberto Ocampo Hemoglobin Ql (U) LARGE Abnormal NEGATIVE [facility] Comment on above: Performed By: #### U ACSIND, UMICRO #### [facility] [address] [address] [address] Gilberto Ocampo Ketones Ql (U) TRACE Abnormal NEGATIVE [facility] Comment on above: Performed By: #### U ACSIND, UMICRO #### [facility] [address] [address] [address] Gilberto Ocampo LEUKOCYTES MODERATE Abnormal NEGATIVE [facility] Comment on above: Performed By: #### U ACSIND, UMICRO #### [facility] [address] [address] [address] Gilberto Ocampo Nitrite Ql (U) Positive Abnormal NEGATIVE [facility] Comment on above: Performed By: #### U ACSIND, UMICRO #### [facility] [address] [place] [address] Dr. Gilberto Ocampo pH (U) 5.5 [pH] Normal 5-9 [facility] Comment on above: Performed By: #### U ACSIND, ICRO #### [facility] [address] [place] [address] Dr. Gilberto Ocampo SPEC GRAVITY 1.025 Normal 1.005-<=1.025 [facility] Comment on above: Performed By: #### U ACSIND, UMICRO #### [facility] [address] [place] [address] Dr. Gilberto Ocampo UA PROTEIN 30 mg/dl Abnormal NEGATIVE/ TRACE [facility] Comment on above: Performed By: #### U ACSIND, UMICRO #### [facility] [address] [place] [address] Dr. Gilberto Ocampo UR MICRO IND INDICATED Normal [facility] Comment on above: Performed By: #### U ACSIND, UMICRO #### [facility] [address] [place] [address] Dr. Gilberto Ocampo Urobilinogen Qn (U) 0.2 {Torres'U}/dL Normal 0.2 - 1.0 [facility] Comment on above: Performed By: #### U ACSIND, UMICRO #### [facility] [address] [address] [address] Gilberto Ocampo URINE MICROSCOPIC ONLYon BACTERIA SMALL Abnormal NONE SEEN [facility] Comment on above: Performed By: #### U ACSIND, UMICRO #### [facility] [address] [address] [address] Gilberto Ocampo BACTERIA MODERATE Abnormal NONE SEEN [facility] Comment on above: Performed By: #### U ACSWALI, UMICRO #### [facility] [address] [address] [address] Gilberto Ocampo Bacteria identified Cx Nom (U) INDICATED Normal [facility] Comment on above: Performed By: #### U ACSWALI, UMICRO #### [facility] [address] [place] [address] Dr. Gilberto Ocampo CAST NONE SEEN Normal NONE SEEN [facility] Comment on above: Performed By: #### U ACSWALI, UMICRO #### [facility] [address] [place] [address] Dr. Gilberto Ocampo Crystals LM Nom (Urine sed) NONE SEEN Normal NONE SEEN [facility] Comment on above: Performed By: #### U ACSWALI, UMICRO #### [facility] [address] [place] [address] Dr. Gilberto Ocampo Epithelial cells LM Ql (Urine sed) MODERATE Abnormal NONE SEEN /RARE [facility] Comment on above: Performed By: #### U ACSWALI UMICRO #### [facility] [address] [address] [address] Gilberto Ocampo MUCOUS TRACE Abnormal NONE SEEN [facility] Comment on above: Performed By: #### U ACSWALI, UMICRO #### [facility] [address] [place] [address] Dr. Gilberto Ocampo MUCOUS SMALL Abnormal NONE SEEN [facility] Comment on above: Performed By: #### U ACSWALI, UMICRO #### [facility] [address] [address] [address] Gilberto Ocampo RBC 2-5 Abnormal 0-2 [facility] Comment on above: Performed By: #### U ACSIND, UMICRO #### [facility] [address] [place], [place] [address] Dr. Gilberto Ocampo RBC 5-10 Abnormal 0-2 [facility] Comment on above: Performed By: #### U ACSIND, UMICRO #### [facility] [address] [place], [place] [address] Dr. Gilberto Ocampo WBC 20-50 Abnormal NONE SEEN [facility] Comment on above: Performed By: #### U ACSIND, UMICRO #### [facility] [address] [place], [place] [address] Dr. Gilberto Ocampo WBC 10-20 Abnormal NONE SEEN [facility] Comment on above: Performed By: #### U ACSIND, UMICRO #### [facility] [address] [address] [address] Gilberto Ocampo MG MAMM SCREEN 3D DION CADon 10-11-2022 MG MAMM SCREEN 3D DION CAD Patient: MALCOM KNOWLES Exam Date: 10/11/2022 : 1955 Gender:F Ordering : DR DUSTY WALTERS . Admission #: [id number] Family : Order #: [id number] CLICK HERE TO VIEW EXAM RADIOLOGY REPORT [...] prostate cancer at age 64. LOCATION: [facility] BREAST COMPOSITION: Scattered areas fibroglandular density. [...] MD on 10/11/2022 at 14:47 Normal [facility] PTH INTACTon 09-18-2022 PTH, Intact 46 pg/mL Normal 15-65 [facility] Comment on above: Performed By: #### U ZAID JAIN #### [facility] [address] [place] [address] Dr. Gilberto Ocampo HEMOGRAM AND PLATELon 2021 Hematocrit (Bld) [Volume fraction] 37.2 % Normal 36.0-48.0 [facility] Comment on above: Performed By: #### H H #### [facility] [address] [place] [address] Dr. Gilberto Ocampo Hemoglobin (Bld) [Mass/Vol] 12.2 g/dL Normal 12.0-16.0 [facility] Comment on above: Performed By: #### H H #### [facility] [address] [place] [address] Dr. Gilberto Ocampo MCH (RBC) [Entitic mass] 30.3 pg Normal 26.7-34.0 [facility] Comment on above: Performed By: #### H H #### [facility] [address] [place] [address] Dr. Gilberto Ocampo MCHC (RBC) [Mass/Vol] 32.8 g/dL Normal 29.9-35.2 [facility] Comment on above: Performed By: #### H H #### [facility] [address] [place] [address] Dr. Gilberto Ocampo MCV (RBC) [Entitic vol] 92.5 fL Normal 81.0-99.0 [facility] Comment on above: Performed By: #### H H #### [facility] [address] [place] [address] Dr. Gilberto Ocampo PLT 194 103/ul Normal 150-450 [facility] Comment on above: Performed By: #### H H #### [facility] [address] [place] [address] Dr. Gilberto Ocampo RBC 4.02 106/ul Critically low 4.20-5.40 [facility] Comment on above: Performed By: #### H H #### [facility] [address] [place] [address] Dr. Gilberto Ocampo WBC 5.4 103/ul Normal 4.0-11.0 [facility] Comment on above: Performed By: #### H H #### [facility] [address] [place] [address] Dr. Gilberto Ocampo MAGNESIUMon 09-15-2022 Magnesium [Mass/Vol] 1.9 mg/dL Normal 1.8-2.4 [facility] Comment on above: Performed By: #### A CET, CMP #### [facility] [address] [place] [address] Dr. Gilberto Ocampo PROF 14(COMP METB)on 022 Albumin [Mass/Vol] 3.3 g/dL Critically low 3.4-5.0 [facility] Comment on above: Performed By: #### A CET, CMP #### [facility] [address] [place] [address] Dr. Gilberto Ocampo Albumin/Globulin [Mass ratio] 0.9 {ratio} Normal [facility] Comment on above: Performed By: #### A CET, CMP #### [facility] [address] [place] [address] Dr. Gilberto Ocampo ALP [Catalytic activity/Vol] 85 U/L Normal 46-116 [facility] Comment on above: Performed By: #### A CET, CMP #### [facility] [address] [place] [address] Dr. Gilberto Ocampo ALT [Catalytic activity/Vol] 32 U/L Normal 14-59 [facility] Comment on above: Performed By: #### A CET, CMP #### [facility] [address] [place] [address] Dr. Gilberto Ocampo Anion gap [Moles/Vol] 12.3 mmol/L Normal [facility] Comment on above: Performed By: #### A CET, CMP #### [facility] [address] [place] [address] Dr. Gilberto Ocampo AST [Catalytic activity/Vol] 20 U/L Normal 15-37 [facility] Comment on above: Performed By: #### A CET, CMP #### [facility] [address] [place] [address] Dr. Gilberto Ocampo Bilirubin [Mass/Vol] 1.1 mg/dL Critically high 0.2-1.0 [facility] Comment on above: Performed By: #### A CET, CMP #### [facility] [address] [place] [address] Dr. Gilberto Ocampo Calcium [Mass/Vol] 8.5 mg/dL Normal 8.5-10.1 [facility] Comment on above: Performed By: #### A CET, CMP #### [facility] [address] [place] [address] Dr. Gilberto Ocampo Chloride [Moles/Vol] 103 mmol/L Normal 98-107 [facility] Comment on above: Performed By: #### A CET, CMP #### [facility] [address] [place] [address] Dr. Gilberto Ocampo CO2 [Moles/Vol] 29.5 mmol/L Normal 21.0-32.0 [facility] Comment on above: Performed By: #### A CET, CMP #### [facility] [address] [place] [address] Dr. Gilberto Ocampo Creatinine [Mass/Vol] 1.52 mg/dL Critically high 0.55-1.02 [facility] Comment on above: Performed By: #### A CET, CMP #### [facility] [address] [place] [address] Dr. Gilberto Ocampo EGFR-AF WELSH 41 mL/min/1.73m2 Critically low >=60 [facility] Comment on above: Performed By: #### A CET, CMP #### [facility] [address] [place] [address] Dr. Gilberto Ocampo EGFR-NON AF WELSH 34 mL/min/1.73m2 Critically low >=60 [facility] Comment on above: Performed By: #### A CET, CMP #### [facility] [address] [place] [address] Dr. Gilberto Ocampo Globulin (S) [Mass/Vol] 3.6 g/dL Normal [facility] Comment on above: Performed By: #### A CET, CMP #### [facility] [address] [place] [address] Dr. Gilberto Ocampo Glucose [Mass/Vol] 323 mg/dL Critically high 74-106 [facility] Comment on above: Performed By: #### A CET, CMP #### [facility] [address] [place] [address] Dr. Gilberto Ocampo Potassium [Moles/Vol] 3.8 mmol/L Normal 3.5-5.1 [facility] Comment on above: Performed By: #### A CET, CMP #### [facility] [address] [place] [address] Dr. Gilberto Ocampo Protein [Mass/Vol] 6.9 g/dL Normal 6.4-8.2 [facility] Comment on above: Performed By: #### A CET, CMP #### [facility] [address] [place] [address] Dr. Gilberto Ocampo Sodium [Moles/Vol] 141 mmol/L Normal 136-145 [facility] Comment on above: Performed By: #### A CET, CMP #### [facility] [address] [place] [address] Dr. Gilberto Ocampo Urea nitrogen [Mass/Vol] 16.0 mg/dL Normal 7.0-18.0 [facility] Comment on above: Performed By: #### A CET, CMP #### [facility] [address] [place] [address] Dr. Gilberto Ocampo Urea nitrogen/Creatinin e [Mass ratio] 10.5 mg/mg Normal [facility] Comment on above: Performed By: #### A CET, CMP #### [facility] [address] [place] [address] Dr. Gilberto Ocampo URIC ACID SERUMon 09-15-2022 Urate [Mass/Vol] 3.3 mg/dL Normal 2.6-6.0 [facility] Comment on above: Performed By: #### A CET, CMP #### [facility] [address] [place], [place] [address] Dr. Gilberto Ocampo VITAMIN D 25 OHon 09-15-2022 VIT D 25-OH 57.1 ng/mL Normal [facility] Comment on above: Performed By: #### U ZAID JAIN #### [facility] [address] [address] [address] Gilberto Ocampo VIT D RANGES SEE BELOW Normal [facility] Comment on above: Result Comment: <20 ng/mL Vit D deficient 20 - <30 ng/mL Vit D insufficient 30 - 100 ng/mL Vit D sufficient >100 ng/mL Potential Toxicity Performed By: #### U ZAID JAIN #### [facility] [address] [address] [address] Gilberto Ocampo US KIDNEYSon 08-30-2022 US [...] ADAMS RAGSDALE Date: 2022-08-30 11:46 Normal [facility] XR CHEST 2 Von 08-27-2022 XR [...] by: ADAMS RAGSDALE Date: 2022-08-27 21:54 Normal [facility] XR NECK SOFT TISSUEon 2021 [...] by: ADAMS RAGSDALE Date: 2022-08-27 21:58 Normal [facility] Tobacco Screening.on 022 Adult depression screening assessment No [facility] [employer] [address] DO Work Phone: Fall risk assessment b) One or more falls in the last year [facility] [employer] [address] DO Work Phone: Tobacco use status CPHS b) No -[facility] [employer] [address] DO Work Phone: CNPNon [facility]20[facility] -------- MALCOM KNOWLES ([id number]) 1955 F Date Time Provider Department 01/18/21 [facility] During your visit today, we recorded the [...] Other: See Comments Comments: 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 FLU VACCINE 2010-12(3 YR+)(PF) 01/18/2016 16 [...] Encounter Status:Closed by ANABELA BUSTAMANTE on 01/18/21 [facility] Vital Signs Date Time Vital Sign Value Performing Clinician Facility 01-09-2024 11:49-0500 Body height 157.5 cm Cinthia Vazquez MD Work Phone: [facility] 01-09-2024 11:49-0500 Body mass index (BMI) [Ratio] 53.04 kg/m2 Cinthia Vazquez MD Work Phone: [facility] 01-09-2024 11:49-0500 Body weight 131.54 kg Cinthia Vazquez MD Work Phone: [facility] 01-09-2024 11:49-0500 Diastolic blood pressure 80 mm[Hg] Cinthia Vazquez MD Work Phone: [facility] 01-09-2024 11:49-0500 Heart rate 64 /min Cinthia Vazquez MD Work Phone: [facility] 01-09-2024 11:49-0500 Systolic blood pressure 136 mm[Hg] Cinthia Vazquez MD Work Phone: [facility] 11-21-2023 10:16-0500 Blood Pressure Location BRIGIDA WILLOUGHBY [facility] 11-21-2023 10:16-0500 Diastolic blood pressure 84 mm[Hg] BRIGIDA WILLOUGHBY [facility] 11-21-2023 10:16-0500 Systolic blood pressure 138 mm[Hg] BRIGIDA WILLOUGHBY [facility] 07-02-2023 14:20-0400 Body height 162.56 cm Chip Hernandezs Other [facility] [employer] Other 07-02-2023 14:20-0400 Body temperature 96.7 [degF] [employer] [employer] Other [facility] Other 07-02-2023 14:20-0400 Diastolic blood pressure 79 mm[Hg] Azamos [employer] Other [facility] Other 07-02-2023 14:20-0400 Respiratory rate 18 /min Azamos [employer] Other [facility] [employer] Other 07-02-2023 14:20-0400 SaO2% (BldA) [Mass fraction] 98 % Azamos Hernandezs Other [facility] [employer] Other 07-02-2023 14:20-0400 Systolic blood pressure 155 mm[Hg] Aziz [employer] Other [facility] Other 04-04-2023 11:33-0400 Body height 160.02 cm Dusty Quintanillaight Work Phone: [facility] 600 DO Work Phone: 04-04-2023 11:33-0400 Body mass index (BMI) [Ratio] 52.97 kg/m2 Dusty Walters Work Phone: [facility] 600 DO Work Phone: 04-04-2023 11:33-0400 Body surface area Derived from formula 2.29 m2 Dusty Walters Work Phone: [facility] 600 DO Work Phone: 04-04-2023 11:33-0400 Body weight 135.63 kg Dusty Walters Work Phone: [facility] 600 DO Work Phone: 04-04-2023 11:33-0400 Diastolic blood pressure 70 mm[Hg] Dusty Walters Work Phone: [facility] 600 DO Work Phone: 04-04-2023 11:33-0400 Heart rate 72 /min Dusty Walters Work Phone: [facility] 600 DO Work Phone: 04-04-2023 11:33-0400 Systolic blood pressure 110 mm[Hg] Dusty Walters Work Phone: [facility] [employer] 600 DO Work Phone: 11-20-2022 10:30-0500 Body height 162.56 cm Lizandro Martins Other [employer] Other 10-30-2022 16:20-0500 Body height 162.56 cm Chip Hernandezs Other [employer] Other 10-30-2022 16:20-0500 Diastolic blood pressure 84 mm[Hg] Azamos Bakhous Other [employer] Other 10-30-2022 16:20-0500 SaO2% (BldA) [Mass fraction] 98 % Chip Hernandezs Other [employer] Other 10-30-2022 16:20-0500 Systolic blood pressure 128 mm[Hg] Chip Hernandezs Other [employer] Other 05-15-2022 14:20-0400 Body height 162.56 cm Chip Hernandezs Other [employer] Other 05-15-2022 14:20-0400 Body temperature 97 [degF] Chip Hernandezs Other [employer] Other 05-15-2022 14:20-0400 Diastolic blood pressure 70 mm[Hg] Chip Hernandezs Other [employer] Other 05-15-2022 14:20-0400 Respiratory rate 18 /min Chip Hernandezs Other [employer] Other 05-15-2022 14:20-0400 SaO2% (BldA) [Mass fraction] 97 % Chip Hernandezs Other [employer] Other 05-15-2022 14:20-0400 Systolic blood pressure 120 mm[Hg] Chip Hernandezs Other [employer] Other 03-12-2022 13:25-0400 Body height 160.02 cm Dusty Walters Work Phone: [facility] 250 DO Work Phone: 03-12-2022 13:25-0400 Body mass index (BMI) [Ratio] 51.02 kg/m2 Dusty Walters Work Phone: [facility] 250 DO Work Phone: 03-12-2022 13:25-0400 Body surface area Derived from formula 2.26 m2 Dusty Quintanillaight Work Phone: [facility] 250 DO Work Phone: 03-12-2022 13:25-0400 Body weight 130.64 kg Dusty Quintanillaight Work Phone: [facility] 250 DO Work Phone: 03-12-2022 13:25-0400 Diastolic blood pressure 78 mm[Hg] Dusty Walters Work Phone: [facility] 250 DO Work Phone: 03-12-2022 13:25-0400 Heart rate 70 /min Dusty Quintanillaight Work Phone: [facility] 250 DO Work Phone: 03-12-2022 13:25-0400 Systolic blood pressure 102 mm[Hg] Dusty Quintanillaight Work Phone: [facility] 250 DO Work Phone: Encounters Encounter Date Encounter Type Care Provider Facility Start: 03-03-2024 ambulatory BRIGIDA WILLOUGHBY Facili ty:[facility] Start: 03-02-2024 ambulatory Jose Snow Facility :[facility] [place] Start: 02-27-2024 ambulatory BRIGIDA WILLOUGHBY Facili ty:[facility] [place] Start: 02-24-2024 ambulatory Jose Snow Facility :[facility] [place] Start: 02-04-2024 End: 02-05-2024 ambulatory BRIGIDA WILLOUGHBY Facility:[facility] Start: 01-09-2024 End: 01-09-2024 ambulatory [facility] Start: 01-09-2024 End: 01-09-2024 Office outpatient visit 15 minutes Cinthia Vazquez MD Work Phone: [facility] Comment on above: 2-vessel coronary ar wade disease (Primary Dx); Essential hypertension; Mixed hyperlipidemia; H/O non-ST elevation myocardial infarction (NSTEMI); Post PTCA; Morbid obesity ([facility]/HCC) Start: 12-23-2023 End: 12-24-2023 ambulatory Joe BOOTH Facility:[facility] Start: 12-23-2023 End: 12-23-2023 Patient encounter procedure Joe Guerra [facility] Start: 12-16-2023 End: 12-17-2023 ambulatory Mariangel Campbell Facility:[facility] Start: 11-21-2023 End: 11-22-2023 ambulatory BRIGIDA WILLOUGHBY Facility: [facility] Start: 11-21-2023 End: 11-21-2023 Patient encounter procedure BRIGIDA WILLOUGHBY [facility] [facility] Start: 11-20-2023 End: 11-21-2023 ambulatory Jose Snow Facility:[facility] stalin Start: 10-23-2023 ambulatory CHIP CRAFT Facility:[facility] Start: 10-01-2023 End: 10-02-2023 ambulatory Jose Snow Facility:[facility] Start: 10-01-2023 End: 10-01-2023 Patient encounter procedure Jose Snow [facility] Start: 09-09-2023 End: 09-10-2023 ambulatory Jose Snow Facility:[facility] Start: 07-31-2023 End: 07-31-2023 ambulatory Anjana Pal Other [facility] Other Start: 07-31-2023 Telephone encounter Anjana [facility] Start: 07-28-2023 End: 07-28-2023 ambulatory MD Dusty Walters Work Phone: [facility] Work Phone: Start: 07-28-2023 End: 07-28-2023 Departed Referred MD Dusty Walters Work Phone: [facility] [place] Work Phone: Start: 07-15-2023 End: 07-16-2023 ambulatory Mariangel L Adrian Facility:[facility] Start: 07-05-2023 Telephone encounter Tanika John [facility] Start: 07-05-2023 End: 07-05-2023 ambulatory Tanika John Other [facility] Other Start: 07-02-2023 End: 07-02-2023 ambulatory Aziz Bakhous Other [facility] Other Start: 07-02-2023 Office outpatient visit 25 minutes Aziz Bakhous [facility] Start: 07-01-2023 Office outpatient visit 25 minutes Brigida George [facility] Start: 07-01-2023 End: 07-01-2023 ambulatory MD Dusty Walters Work Phone: [facility] Work Phone: Start: 07-01-2023 End: 07-01-2023 Patient encounter procedure MD Dusty Walters Work Phone: [facility] Start: 06-28-2023 End: 06-28-2023 ambulatory Aziz Bakhous Other [facility] Other Start: 06-28-2023 Telephone encounter Aziz Bakhous [facility] Start: 05-16-2023 End: 05-17-2023 ambulatory Mariangel L Adrian Facility:[facility] Start: 05-16-2023 End: 05-16-2023 Lab Drop off Mariangel L Adrian [facility] Start: 05-01-2023 ambulatory AJ YOUNG Facility:[facility] 1 Start: 04-04-2023 Office outpatient visit 25 minutes Dusty Waletrs Work Phone: [facility] 600 DO Work Phone: Start: 04-04-[address] Dusty Salgado acility: Start: 01-24-2023 End: 01-24-2023 ambulatory CONNER GERMAN . Facility:[facility] Start: 01-18-2023 End: 01-19-2023 ambulatory AJ YOUNG Facility:[facility] Start: 12-26-2022 End: 12-26-[address] DUSTY WALTERS . Facility:[facility] Start: 12-18-2022 End: 12-18-2022 ambulatory Lizandro Cummingsmelina Other [facility] Other Start: 12-18-2022 Office outpatient visit 15 minutes Lizandro Martins [facility] Start: 12-17-2022 End: 12-17-[address] DUSTY WALTERS . Facility:[facility] Start: 11-20-2022 End: 11-20-2022 ambulatory Lizandro Martins Other [facility] Other Start: 11-20-2022 [facility] visit new patient Lizandro Cummingsmelina [facility] Start: 11-17-2022 End: 11-17-[address] DUSTY WALTERS . Facility:[facility] Start: 11-09-2022 End: 11-10-[address] DUSTY WALTERS . Facility:[facility] Start: 11-09-2022 End: 11-10-[address] DUSTY WALTERS . Facility:[facility] Start: 10-30-2022 End: 10-30-2022 ambulatory Chip Craft Other [facility] Other Start: 10-30-2022 Office outpatient visit 15 minutes Chip Craft [facility] Start: 10-11-2022 End: 10-12-[address] DUSTY WALTERS . Facility:[facility] Start: 09-15-2022 End: [address] DUSTY WALTERS . Facility:[facility] Start: 08-30-2022 End: 08-31-[address] DOCTOR GALEANA Facility:[facility] Start: 08-27-2022 End: 08-28-[address] DUSTY WALTERS . Facility:[facility] Start: 07-04-2022 End: 07-04-[address] DUSTY WALTERS . Facility:[facility] Start: 05-15-2022 End: 05-15-2022 ambulatory Chip Craft Other [facility] Other Start: 05-15-2022 Office outpatient ne w 30 minutes Chip Craft [facility] Don Start: 03-12-2022 Office outpatient visit 25 minutes Dusty Walters Work Phone: [facility] 250 DO Work Phone: Procedures Date Procedure Procedure Detail Performing Clinician Start: 07-01-2023 Plain X-ray of left shoulder MD Dusty Walters Work Phone: Arthroplasty of knee Dusty chase Work Phone: Cardiac catheterization Dusty Walters Work Phone: Cardiac catheterization Jose R Snow Comment on above: 2017 2 stents, 2019 3 stents Cataract (disorder) Jose collazo Comment on above: 08/2021 Colonoscopy BRIGIDA WILLOUGHBY History of arthropla sty of left knee Jose Snow Comment on above: 2018 History of operative [...] History of right tot al knee replacement Jose Snow Comment on above: 2018 Tonsillectomy and adenoidectomy Dusty Bozena Selena Work Phone: Total abdominal hysterectomy with bilateral salpingo-oophorectomy Jose Snow Total colonoscopy Dusty Bozena Florian Work Phone: Plan of Treatment Date Care Activity Detail Author Start: 01-05-2025 End: 01-05-2025 Patient encounter procedure 01/05/2025 9:50 AM EST [facility] [place] [address] [facility] [address] [place] [address] Cinthia Vazquez MD [address] [facility] [address] [place] [address] [facility] Start: 01-07-2024 FUV, Provider: Cinthia Vazquez, Status: Pen, Time: 11:00 AM FUV, Provider: Cinthia Vazquez, Status: Pen, Time: 11:00 AM [facility] 600 DO Work Phone: Start: 08-02-2023 COVID-19 Vaccine ( season) COVID-19 Vaccine ( season) [facility] Start: 08-02-2023 Influenza vaccination Influenza Vaccine (#1) [facility] Start: 07-28-2023 Bacteria identified in Urine by Culture Urine Culture [facility] Start: 12-11-2022 FUV, Provider: Cinthia Vazquez, Status: Pen, Time: 10:30 AM FUV, Provider: Cinthia Vazquez, Status: Pen, Time: 10:30 AM [facility] 250 DO Work Phone: Start: 07-05-2022 Glaucoma screening Diabetes: Retinopathy Screening [facility] Start: 12-02-2021 Pneumococcal Vaccine: 65+ Years (3 - PPSV23 or PCV20) Pneumococcal Vaccine: 65+ Years (3 - PPSV23 or PCV20) [facility] Start: 2003 Zoster Vaccines (1 of 2) Zoster Vaccines (1 of 2) [facility] Start: 1993 Screening for malignant neoplasm of breast Mammogram [facility] Start: 1975 DTaP/Tdap/Td Vaccines (1 - Tdap) DTaP/Tdap/Td Vaccines (1 - Tdap) [facility] Start: 1972 Urine screening for protein Diabetes: Urine Protein Screening [facility] Start: 1971 Hepatitis C screening Hepatitis C Screening [facility] Start: 1963 Diabetic foot examination Diabetes: Foot Exam [facility] Start: 1953 Hemoglobin A1c measurement Diabetes: Hemoglobin A1C [facility] Start: 1953 Lipid panel Lipid Panel [facility] Start: 1953 Medicare Annual Wellness Visit Medicare Annual Wellness Visit (AWV) [facility] Start: 1953 Screening for malignant neoplasm of colon [facility] Start: 1953 Screening for osteoporosis Bone Density Scan [facility] Immunizations Immunization Date Immunization Notes Care Provider Fa [facility] 09-13-2022 SARS-CoV-2 (COVID-19 ) [id number] Mariangel Campbell [facility] 01-13-2022 Moderna COVID-19 Vac cine 100 MCG/0.5ML Intramuscular Suspension Dusty Walters Work Phone: [facility] Comment on above: Result Comment: 2022: [id number] 08-09-2021 Moderna COVID-19 Vac cine 100 MCG/0.5ML Intramuscular Suspension Dusty Walters Work Phone: [facility] 07-12-2021 Moderna COVID-19 Vac cine 100 MCG/0.5ML Intramuscular Suspension Dusty Walters Work Phone: [facility] 12-02-2016 pneumococcal polysaccharide vaccine, 23 valent [facility] Walters [facility] Work Phone: 10-18-2016 pneumococcal conjuga te vaccine, 13 valent Dusty Walters Work Phone: [facility] Payers Date Payer Category Payer Medicare [id number] 2023 Unknown [id number] 2023 Self-pay [id number] 2018 Medicare [id number] 1959 Medicare [id number] 2.1 6.840.1.100839.19 1959 Unknown [id number] 2.1 6.840.1.375310.19 1953 Unknown [id number] 2.16. 840.1.938626.3.579.2.356 1953 Unknown [id number] 2.16.84 0.1.391143.3.579.2.593 1953 Unknown [id number] 2.16.84 0.1.361732.3.579.2.593 1953 Unknown [id number] 2.16.84 0.1.702391.3.579.2.593 1953 Unknown [id number] 2.16.84 0.1.050076.3.579.2.593 1953 Unknown [id number] 2.16.84 0.1.633951.3.579.2.593 1953 Unknown [id number] 2.16.84 0.1.370161.3.579.2.593 1953 Unknown [id number] 2.16.84 0.1.932746.3.579.2.593 1953 Unknown [id number] 2.16.84 0.1.495516.3.579.2.593 1953 Unknown [id number] 2.16.84 0.1.472751.3.579.2.593 1953 Unknown [id number] 2.16.84 0.1.973773.3.579.2.593 1953 Unknown [id number] 2.16.84 0.1.415131.3.579.2.593 1953 Unknown [id number] 2.16.84 0.1.296085.3.579.2.593 1953 Unknown [id number] 2.16.84 0.1.799879.3.579.2.593 1953 Unknown [id number] 2.16.8 40.1.579724.3.579.2.1244 1953 Unknown [id number] 2.16.8 40.1.198802.3.579.2.727 1953 Unknown [id number] 2.16.8 40.1.826558.3.579.2.727 1953 Unknown [id number] 2.16.8 40.1.353627.3.579.2.727 1953 Unknown [id number] 2.16.8 40.1.768302.3.579.2.727 1953 Unknown [id number] 2.16.8 40.1.518831.3.579.2.727 1953 Unknown [id number] 2.16.8 40.1.818389.3.579.2.727 1953 Unknown [id number] 2.16.8 40.1.711073.3.579.2.727 1953 Unknown [id number] 2.16.8 40.1.501287.3.579.2.727 1953 Unknown [id number] 2.16.8 40.1.528149.3.579.2.727 1953 Unknown [id number] 2.16.8 40.1.957915.3.579.2.727 1953 Unknown [id number] 2.16.8 40.1.281421.3.579.2.727 1953 Unknown [id number] 2.16.8 40.1.388232.3.579.2.727 1953 Unknown [id number] 2.16.8 40.1.749948.3.579.2.727 1953 Unknown [id number] 2.16.8 40.1.138006.3.579.2.727 1953 Unknown [id number] 2.16.8 40.1.416806.3.579.2.727 Medicaid [employer] [id number] Unknown Unknown [id number] 2.16.8 40.1.147596.3.579.2.531 Unknown [id number] 2.16.8 40.1.298535.3.579.2.531 Social History Date Type Detail Facility Start: 12-16-2023 No alcohol use No alcohol use -[facility] 250 DO Work Phone: Comment on above: 2 CUPS OF ICED TEA D AILY; Start: 12-16-2023 Sex Assigned At F [facility] Start: 05-16-2023 End: 12-16-2023 Tobacco smoking status Never smoked tobacco (finding) [facility] Tobacco smoking status Never [facility] Start: 1955 Sex Assigned At Female F [facility] Start: 01-09-2024 Alcohol intake Lifetime non-d vijay (finding) [facility] Work Phone: Start: 1955 Sex Assigned At Not on file [facility] Work Phone: Start: 12-30-2023 End: 01-09-2024 Exposure to SARS-CoV-2 (event) Not sure [facility] Medical Equipment Procedure Code Equipment Code [...] to inject insulin as directed. Dx E10.42, [place], Supply Start: 02-19-2023 CL STENT AURORA 3.0 X 18 FDA Start: 06-29-2018 CL STENT AURORA 3.5 X 15 FDA Start: 06-29-2018 [id number] FDA Start: 04-18-2020 Drug-eluting cor onary artery stent, iwc-zpvizxxgbsvag-tsim larry-coated ()[id number] FDA Start: 04-18-2020 Drug-eluting cor onary artery stent, jus-osjwhepjyugey-klwe larry-coated ()[id number] FDA Start: 04-18-2020 CL STENT AURORA 3.0 X 18 FDA Start: 06-29-2018 CL STENT AURORA 3.5 X 15 FDA Start: 06-29-2018 [id number] FDA Start: 04-18-2020 [facility] DME Prescri ption, See Instructions, 300 pen needle(s), 3, BD ultra fine pen needles 31G X 3/16. Use to inject insulin as directed. Dx E10.42, [facility], Supply Start: 02-19-2023 [facility] DME Prescri ption, See Instructions, 300 pen needle(s), 3, BD ultra fine pen needles 31G X 3/16. Use to inject insulin as directed. Dx E10.42, [facility], Supply Start: 02-19-2023 [facility] DME Prescri ption, See Instructions, 300 pen needle(s), 3, BD ultra fine pen needles 31G X 3/16. Use to inject insulin as directed. Dx E10.42, [facility], Supply Start: 02-19-2023 Functional Status Date Assessment Result Facility 12-23-2023 Functional Status N/A [facility] 11-21-2023 Functional Status N/A [facility] Clinical Notes 06-01-2018 to 01-09-2024 Cinthia Vazquez MD - 01/09/2024 11:10 AM ESTPatient Instructions Note Date & Type Note Facility 01-09-2024 History of Present illness Narrative Subjective Malcom Knowles is a 68 y.o. female Chief Complaint Follow-up HPI Diagnoses/Problems Assessed 2-vessel coronary artery disease (414.00) (I25.10) Chest pain (786.50) (R07.9) Diabetes mellitus (250.00) (E11.9) Essential hypertension (401.9) (I10) H/O non-ST elevation myocardial infarction (NSTEMI) (412) (I25.2) Hyperlipidemia (272.4) (E78.5) Morbid obesity with BMI of 50.0-59.9, adult (278.01,V85.43) (E66.01,Z68.43) Never a smoker Post PTCA (V45.82) (Z98.61) long term resident (V60.6) (Z59.3) Orders 2-vessel coronary artery disease Stop: Aspirin EC 81 MG TBEC Morbid obesity with BMI of 50.0-59.9, adult Healthy Weight Tips; Status:Complete - Retrospective Authorization; Done: 04Apr2023 Some eating tips that can help you lose weight.; Status:Complete - Retrospective Authorization; Done: 04Apr2023 SocHx: Never a smoker Tobacco Use Screening; Status:Complete; Done: [id number] Patient Instructions Please bring all medicines, vitamins, [...] chest pain, palpitation, lightheadedness, dizziness or syncope. She had been seeing a neurologist. Initially was concerned about normal pressure hydrocephalus but this has been ruled out by a second neurologist and apparently the now the concern is more like dementia Assessment 1. Coronary artery disease, presentation with acute inferior STEMI in June 29, 2018, percutaneous coronary intervention to the mid RCA with subsequent PCI to the LAD after presentation with crescendo angina in April of last year. Patient is sedentary but no cardiac symptoms reported 2. Morbid obesity with continued weight gain 3. Normal left ventricular ejection fraction. 4. diabetes mellitus. 5. Hyperlipidemia controlled 6. hypertension controlled 7. Continued complaint of gait disturbance being evaluated by neurology and there is some discussion about dementia versus normal pressure hydrocephalus Plan 1. Patient will remain on current therapy 2. Patient was counseled regarding losing weight, exercise and dietary modification 3. Reviewed her recent lab work 4. We'll see her back in the office in 1 year 5. Fall precaution education Review of Systems Neurological: Patient continues to complain of difficulty with gait and balance and poor short-term memory All other systems reviewed and are negative. Visit Vitals BP 136/80 (BP Location: Left arm, Patient Position: Sitting) Pulse 64 Ht 1.575 m (5' 2 ) Wt 132 kg (290 lb) BMI 53.04 kg/m Smoking Status Never BSA 2.4 m Objective Physical Exam Constitutional: Appearance: Normal appearance. She is normal weight. HENT: Nose: Nose normal. Neck: Vascular: No carotid bruit. Cardiovascular: Rate and Rhythm: Normal rate. Pulses: Normal pulses. Heart sounds: Normal heart sounds. Pulmonary: Effort: Pulmonary effort is normal. Abdominal: General: Bowel sounds are normal. Palpations: Abdomen is soft. Genitourinary: Rectum: Normal. Musculoskeletal: General: Normal range of motion. Cervical back: Normal range of motion. Right lower leg: No edema. Left lower leg: No edema. Skin: General: Skin is warm and dry. Neurological: General: No focal deficit present. Mental Status: She is alert. Psychiatric: Mood and Affect: Mood normal. Behavior: Behavior normal. Thought Content: Thought content normal. Judgment: Judgment normal. Current Medications Current Outpatient Medications: acetaminophen (Tylenol) 500 mg tablet, Take 1 tablet (500 mg) by mouth 2 times a day., Disp: , Rfl: alpha lipoic acid 600 mg capsule, Take 1 capsule by mouth once daily., Disp: , Rfl: atorvastatin (Lipitor) 80 mg tablet, Take 1 tablet (80 mg) by mouth once daily at bedtime., Disp: , Rfl: biotin 1,000 mcg tablet,chewable, Chew 1 tablet once daily., Disp: , Rfl: cetirizine (ZyrTEC) 10 mg tablet, Take 1 tablet (10 mg) by mouth once daily., Disp: , Rfl: cholecalciferol (Vitamin D-3) 25 MCG (1000 UT) tablet, Take 1 tablet (1,000 Units) by mouth once daily., Disp: , Rfl: clopidogrel (Plavix) 75 mg tablet, Take 1 tablet (75 mg) by mouth once daily., Disp: , Rfl: cyanocobalamin, vitamin B-12, (Vitamin B-12) 1,000 mcg tablet extended release, Take 1 tablet (1,000 mcg) by mouth once daily., Disp: , Rfl: D-MANNOSE ORAL, Take by mouth., Disp: , Rfl: docusate sodium (Colace) 100 mg capsule, Take 1 capsule (100 mg) by mouth once daily., Disp: , Rfl: donepezil (Aricept) 10 mg tablet, Take 1 tablet (10 mg) by mouth 2 times a day., Disp: , Rfl: famotidine (Pepcid) 20 mg tablet, Take 1 tablet (20 mg) by mouth once daily at bedtime., Disp: , Rfl: furosemide (Lasix) 40 mg tablet, Take 1 tablet (40 mg) by mouth once daily., Disp: , Rfl: gabapentin (Neurontin) 600 mg tablet, Take 1 tablet (600 mg) by mouth 3 times a day., Disp: , Rfl: glimepiride (Amaryl) 2 mg tablet, Take 1 tablet (2 mg) by mouth once daily., Disp: , Rfl: insulin aspart (NovoLOG U-100 Insulin aspart) 100 unit/mL injection, Inject under the skin 3 times a day before meals. Take as directed per insulin instructions., Disp: , Rfl: memantine (Namenda) 10 mg tablet, Take 1 tablet (10 mg) by mouth 2 times a day., Disp: , Rfl: mirabegron (Myrbetriq) 50 mg tablet extended release 24 hr 24 hr tablet, Take 1 tablet (50 mg) by mouth once daily., Disp: , Rfl: nitroglycerin (Nitrostat) 0.4 mg SL tablet, Place 1 tablet (0.4 mg) under the tongue every 5 minutes if needed for chest pain. Report to the ER or call 911 after third dose., Disp: , Rfl: ondansetron (Zofran) 4 mg tablet, Take 2 tablets (8 mg) by mouth every 8 hours if needed for nausea or vomiting., Disp: , Rfl: oxyCODONE-acetaminophen (Percocet) 5-325 mg tablet, Take 1 tablet by mouth every 6 hours if needed for severe pain (7 - 10)., Disp: , Rfl: potassium chloride CR 20 mEq ER tablet, Take 1 tablet (20 mEq) by mouth once daily. Do not crush or chew., Disp: , Rfl: prednisoLONE acetate (Pred-Forte) 1 % ophthalmic suspension, 1 drop 4 times a day., Disp: , Rfl: Trulicity 1.5 mg/0.5 mL pen injector injection, Inject 1.5 mg under the skin 1 (one) time per week., Disp: , Rfl: venlafaxine XR (Effexor-XR) 150 mg 24 hr capsule, Take 1 capsule (150 mg) by mouth once daily., Disp: , Rfl: vit C/E/Zn/coppr/lutein/zeaxan (PRESERVISION AREDS-2 ORAL), Take by mouth., Disp: , Rfl: Assessment/Plan 1. 2-vessel coronary artery disease 2. Essential hypertension 3. Mixed hyperlipidemia 4. H/O non-ST elevation myocardial infarction (NSTEMI) 5. Post PTCA 6. Morbid obesity (CMS/HCC) Scribe Attestation By signing my name below, Iirishraubreyiclmich , Scribe attest that this documentation has been prepared under the direction and in the presence of Cinthia Vazquez MD. documented in this encounter [facility] Work Phone: 01-09-2024 Instructions Nathaly Huffman LPN - 01/09/2024 11:10 AM EST Please bring all medicines, vitamins, and herbal supplements with you when you come to the office. Prescriptions will not be filled unless you are compliant with your follow up appointments or have a follow up appointment scheduled as per instruction of your physician. Refills should be requested at the time of your visit. Fall Prevention Education Given Follow up one year documented in this encounter [facility] Work Phone: 12-31-2023 Note Clinician was able t o reach out to daughter. 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 Was able to share the need for a SLUMS test from Neurology and to test for Alzheimer's and or Dementia due to grandmother having Alzheimer's. Gave information to reach out to [employer] if anything else is needed. [facility] 12-23-2023 Note [id number] [facility] 12-23-2023 Note Cystoscopy with Uret hral Dilation ? Voiding after the procedure: there may be some pain, urethral bleeding, burning, urgency, frequency and blood tinged urine following the procedure. These symptoms usually resolve within 2-5 days. Drink the amount of fluid it takes to keep the urine pink to yellow or clear in color. Drinking enough water and fluids will help to ease any discomfort after your procedure. ? If you are having problems that seem out of the ordinary, please call. ? If unable to contact your physician and you feel it is an emergency, go to the nearest emergency room or call 911 ? Diet ? you may resume your normal diet. ? Activity ? you may resume your normal activities ? Call if you have a fever over 100 degrees [facility] 12-23-2023 Hospital Discharge instructions Patient Education 12/23/2023 15:43:06 EU - Cystoscopy with Urethral Dilation Discharge Instructions (Custom) Cystoscopy with Urethral Dilation Voiding after the procedure: there may be some pain, urethral bleeding, burning, urgency, frequency and blood tinged urine following the procedure. These symptoms usually resolve within 2-5 days. Drink the amount of fluid it takes to keep the urine pink to yellow or clear in color. Drinking enough water and fluids will help to ease any discomfort after your procedure. If you are having problems that seem out of the ordinary, please call. If unable to contact your physician and you feel it is an emergency, go to the nearest emergency room or call 911 Diet you may resume your normal diet. Activity you may resume your normal activities Call if you have a fever over 100 degrees Follow Up Care 11/26/2023 13:33:03 With:BRIGIDA WILLOUGHBY Address: [address] [place] [address] [facility] (1) When:6 weeks Comments:Call for followup appointment, with a bladder scan for PVR at that visit. Monitor your urinary flow after the dilation of the channel today. [facility] 11-21-2023 Hospital Discharge instructions Patient Education 11/21/2023 11:21:23 Urinary Incontinence [...] nerve stimulation). ?For women, using a medical lab assistant to prevent urine leaks. This is a [...] right after experiencing incontinence. General instructions Take edvk-rkt-cuhszrt and prescription medicines only as told by [...] important. Where to find more information National [place] of Diabetes and Digestive and Kidney Diseases: www.niddk.nih.gov [place] [employer]: www.urologyhealth.org Contact a health care [...] provider. Document Revised: 06/23/2021 Document Reviewed: 06/23/2021 [employer] Patient Education 2022 [employer]. Follow Up Care 09/03/2023 10:14:29 With:FARTUN MCCOLLUM, BRIGIDA Seals, URL Address: [facility] [address] [facility] [place] [address] [phone] When: Unknown [facility] Caity 07-02-2023 Evaluation note Encounter Date Diagnosis [...] obesity (ICD-10 - E66.01) advised weight loss [facility] Other 07-31-2023 Evaluation note* Encounter Date Diagnosis [...] pain of left shoulder (ICD-10 - M25.512) [facility] Other 06-15-2023 Evaluation + Plan note Diagnostic Tests Pending * Urine Culture 05/16/23 [facility]01-17-2023 Evaluation note* Encounter Date Diagnosis Assessment Notes Treatment Notes Treatment Clinical Notes Dec, Dislocation of right shoulder joint, subsequent encounter (ICD-10 - S43.004D) Patient instructed on gentle motion and strength exercise. We will consider an MRI of the shoulder to rule out a rotator cuff tear, if patient has increased pain. We will f/u in 6-8 weeks, or sooner if patient needs [facility] 12-20-2022 Evaluation note* Encounter Date Diagnosis [...] age range than in a younger person. [facility] 11-29-2022 Evaluation note* Encounter Date Diagnosis [...] follows with her PCP for hyperlipidemia management [facility] 09-26-2022 NotePROCEDURE: XR SHOULDER LT 2V or > HISTORY: Pain of left shoulder joint COMPARISON: None. FINDINGS: BONES:No fracture, dislocation, bone lesion. Narrowing and mild degenerative changes of the acromioclavicular joint. SOFT TISSUES:No visible soft tissue swelling. EFFUSION:None visible. OTHER: Negative. IMPRESSION: 1. No acute bone abnormality. Electronically authenticated by: ADAMS RAGSDALE Date: 2022-08-27 21:59[facility]09-26-2022 NotePROCEDURE: XR FEMUR RT HISTORY: Pain in right leg after falling COMPARISON: None. FINDINGS: BONES:Mild degenerative changes of hip joint. Right knee replacement. No fracture or dislocation. SOFT TISSUES:No visible soft tissue swelling. EFFUSION:None visible. OTHER: Negative. IMPRESSION: 1. No acute bone abnormality. Electronically authenticated by: ADAMS RAGSDALE Date: 2022-08-27 21:56[facility]09-26-2022 NotePROCEDURE: XR ELBOW RT MIN 3 VIEWS, XR HUMERUS RT MIN 2 V HISTORY: Elbow joint pain after falling COMPARISON: None. FINDINGS: BONES:No fracture, dislocation, bone lesion. Degenerative changes of the acromioclavicular joint. SOFT TISSUES:No visible soft tissue swelling. EFFUSION:None visible. OTHER: Negative. IMPRESSION: 1. No acute bone abnormality the right humerus or elbow joint. Electronically authenticated by: ADAMS RAGSDALE Date: 2022-08-27 21:53[facility]09-26-2022 NotePROCEDURE: XR ELBOW RT MIN 3 VIEWS, XR HUMERUS RT MIN 2 V HISTORY: Elbow joint pain after falling COMPARISON: None. FINDINGS: BONES:No fracture, dislocation, bone lesion. Degenerative changes of the acromioclavicular joint. SOFT TISSUES:No visible soft tissue swelling. EFFUSION:None visible. OTHER: Negative. IMPRESSION: 1. No acute bone abnormality the right humerus or elbow joint. Electronically authenticated by: ADAMS RAGSDALE Date: 2022-08-27 21:53[facility]06-14-2022 Evaluation note* Encounter Date Diagnosis Assessment Notes [...] Hyperlipidemia, unspecified hyperlipidemia type (ICD-10 - E78.5) [facility] 07-01-2018 History general Narrative - Reported* Type Description Date Medical History guillan-barre 2002 Medical History DM Medical History shingles Medical History MA 06/2018 Medical History heart attack Medical History PARESTHESIA Medical History [place] Medical History MACROGLOSSIA Surgical History back surgery 2011 Surgical History meniscus repair left knee Surgical History hysterectomy 2016 Surgical History 2 heart stents 06/2018 Surgical History right TKA 03/04/18 Hospitalization History see above [facility] Evaluation + Plan note Future Appointments Appointment Date:11/21/2023 10:30:00 AM Scheduled Provider:BRIGIDA WILLOUGHBY PA-C Location:[facility]ments Appointment Date:02/24/2024 10:15:00 AM Scheduled Provider:Jose Snow MD Location:[facility] Appointment Type: Open Appointment Date:02/27/2024 11:15:00 AM Scheduled Provider:BRIGIDA WILLOUGHBY PA-C Location:[facility] Appointment Type:URO Office Visit [facility] Evaluation + Plan note Future Appointments Appointment Date:02/04/2024 11:20:00 AM Scheduled Provider:BRIGIDA WILLOUGHBY PA-C Location:[facility] Appointment Type:URO Office Visit Appointment Date:02/24/2024 10:15:00 AM Scheduled Provider:Jose Snow MD [facility] App[facility] Type:FM Open Appointment Date:03/03/2024 02:00:00 PM Scheduled Provider:BRIGIDA WILLOUGHBY PA-C Location:[facility] Appointment Type:URO [facility] InformationNort GL 2ours Other Evaluation noteNo assessment information available [facility] Work Phone: Evaluation note* Diagnosis 2-vessel coronary artery disease- Primary Essential hypertension Unspecified essential hypertension Mixed hyperlipidemia H/O non-ST elevation myocardial infarction (NSTEMI) Post PTCA Postsurgical percutaneous transluminal coronary angioplasty status Morbid obesity ([facility]) Morbid obesity documented in this encounter [facility] Work Phone: History of Present illness Narrative* [...] PCI to the LAD after presentation with jennifer in April of last year. Patient is [...] to lose 10-12 pounds by next time -[facility] 250 DO Work Phone: History of Present [...] PCI to the LAD after presentation with audracendoangina in April of last year. Patient is [...] to lose 10-12 pounds by next time [facility] [employer] 600 DO Work Phone: Hospital course Narrative No data available for this section [facility] No data available for this section [facility] No data available for this section [facility] (narrative)* Consultation (Routine) - Authorized Specialty Diagnoses / Procedures Referred By Radha lopez Referred To Contact Cardiology Diagnoses 2-vessel coronary artery disease Essential hypertension Mixed hyperlipidemia Procedures Follow Up In Cardiology Cinthia Vazquez MD [address] [facility] [address], [address] [place] [id number] Cinthia Vazquez MD [address] [facility] [place] [address] Referral ID Status Reason Start Date Expiration Date V isits Requested Visits Authorized [id number] Authorized 01/09/2024 01/08/2025 1 1 [facility] Work Phone: Summary Purpose Family History No Family History [...] Date/ Time Advance Directives No February 13 1:46pm Chief Complaint MALCOM KNOWLES is being seen for a 9 month follow-up of.MALCOM KNOWLES is being seen for a 9 month follow-up of. Chief Complaint and Reason for Visit Chief Complaint M25.512 Additional Source Comments INFORMATION SOURCE (unrecogn ized section and content) DATE CREATED AUTHOR 01/19/2021 [facility] DATE CREATED AUTHOR AUTHOR'S ORGANIZ ATION 04/07/2023 [facility] DATE CREATED AUTHOR AUTHOR'S ORGANIZ ATION 04/07/2023 [facility] DATE CREATED AUTHOR AUTHOR'S ORGANIZ ATION 05/11/2023 [facility] DATE CREATED AUTHOR AUTHOR'S ORGANIZ ATION 08/08/2023 [facility] DATE CREATED AUTHOR AUTHOR'S ORGANIZ ATION 01/13/2024 [facility] DATE CREATED AUTHOR AUTHOR'S ORGANIZ ATION 02/07/2024 [facility] REASON FOR VISIT (unrecogniz ed section and content) Reason Comments Follow-up 9 months Patient Care team informatio n (unrecognized section and content) Team Status: Active Member Role Status Dates Dusty Walters MD Primary Care Provider Active Team Status: Inactive Member Role Status Dates Dusty Walters MD Primary Care Provider Active Lizandro Martins MD Attending Provider Active Team Status: Inactive Member Role Status Dates Dusty Walters MD Primary Care Provider Active Anjana Pal APRN Attending Provider Active 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 [employer] provides no warranty or guarantee of the accuracy or completeness of information in this document.
--- NOTE | 2024-02-14 21:31 | XR_ITS ---
The [address] [address] Patient Name: MALCOM KNOWLES MRN: [id number] date: 1955 Sex: F Assigned Patient Location: ER Current Patient Location: ER Accession/Order Number: [id number] Exam Date: 02/14/2024 21:36 Report Date: 02/14/2024 21:53 At the request of: CLARK PEREZ Procedure: XR chest 1V EXAM: XR chest 1V HISTORY: altered mental COMPARISON: Chest x-ray 08/27/2022 TECHNIQUE: Single AP radiograph of the chest FINDINGS: No pneumothorax, pleural effusion or consolidation. Mild cardiac prominence. No acute osseous abnormality. Degenerative changes of the acromioclavicular joints. XR/XR chest 1V IMPRESSION: No acute cardiopulmonary process. Electronically authenticated by: ROYCE CHRISTIE Date: 02/14/2024 21:53
--- NOTE | 2024-02-14 21:47 | ED_ITS ---
HPI - Altered Mental Status General Chief Complaint: Altered Mental Status Stated Complaint: Fatigue Time Seen by Provider: 02/14/24 21:31 Source: patient Mode of arrival: ambulance Limitations: no limitations History of Present Illness HPI narrative: [facility] patient. Per staff she was not herself tonight. States she was starring off. senior care concerned she may have UTI. No fever. No complaint of dysuria or urinary frequency. Past history of diabetes Related Data Home Medications Medication Instructions Recorded Confirmed Saccharomyces boulardii 250 mg 250 mg PO DAILY 02/14/24 02/14/24 capsule (Florastor) acetaminophen 500 mg capsule 500 mg PO BID 02/14/24 02/14/24 alpha lipoic acid 600 mg tablet 600 mg PO DAILY 02/14/24 02/14/24 atorvastatin 80 mg tablet 80 mg PO DAILY 02/14/24 02/14/24 biotin 10 mg tablet 10 mg PO DAILY 02/14/24 02/14/24 cetirizine 5 mg tablet 5 mg PO DAILY 02/14/24 02/14/24 cholecalciferol (vitamin D3) 25 1,000 unit PO DAILY 02/14/24 02/14/24 mcg (1,000 unit) capsule (Vitamin D3) clopidogrel 75 mg tablet 75 mg PO DAILY 02/14/24 02/14/24 cranberry 400 mg capsule 450 mg PO DAILY 02/14/24 02/14/24 cyanocobalamin (vitamin B-12) 1,000 mcg PO DAILY 02/14/24 02/14/24 1,000 mcg tablet (Vitamin B-12) d-mannose 500 mg capsule 500 mg PO DAILY 02/14/24 02/14/24 docusate sodium 100 mg capsule 100 mg PO DAILY 02/14/24 02/14/24 (Col-Rite) donepezil 10 mg tablet 10 mg PO BID 02/14/24 02/14/24 dulaglutide 3 mg/0.5 mL 3 mg subcut .weekly 02/14/24 02/14/24 subcutaneous pen injector (Trulicity) famotidine 20 mg tablet 20 mg PO DAILY 02/14/24 02/14/24 furosemide 40 mg tablet 40 mg PO DAILY 02/14/24 02/14/24 gabapentin 600 mg tablet 600 mg PO TID 02/14/24 02/14/24 glimepiride 2 mg tablet 2 mg PO DAILY 02/14/24 02/14/24 glucosamine sulfate 500 mg tablet 3,000 mg PO DAILY 02/14/24 02/14/24 (Glucosamine) insulin aspart U-100 100 unit/mL 1 sliding scale dose subcut DAILY 02/14/24 02/14/24 subcutaneous solution (Novolog U-100 Insulin aspart) insulin glargine 100 unit/mL (3 30 unit subcut QPM 02/14/24 02/14/24 mL) subcutaneous pen (Basaglar KwikPen U-100 Insulin) loperamide 2 mg capsule 2 mg PO Q6H PRN loose stool 02/14/24 02/14/24 magnesium hydroxide 400 mg/5 mL 5 ml PO DAILY PRN constipation 02/14/24 02/14/24 oral suspension (Milk of Magnesia) memantine 10 mg tablet 10 mg PO DAILY 02/14/24 02/14/24 thhmdtqs-nfiu-efnpkaa gluconate 9 15 ml PO DAILY 02/14/24 02/14/24 mg iron/15 mL (15 mL) oral liquid nitroglycerin 0.4 mg sublingual 0.4 mg sublingual Q5M PRN chest 02/14/24 02/14/24 tablet pain ondansetron 4 mg disintegrating 4 mg PO TID-QID PRN nausea and 02/14/24 02/14/24 tablet vomiting polyethylene glycol 3350 17 17 g PO QDAY 02/14/24 02/14/24 gram/dose oral powder (ClearLax) potassium chloride 20 mEq 20 meq PO DAILY 02/14/24 02/14/24 tablet,extended release(part/cryst) pramoxine 1 % topical foam 1 applic NH TID 02/14/24 02/14/24 (Proctofoam) venlafaxine 150 mg 150 mg PO DAILY 02/14/24 02/14/24 capsule,extended release 24 hr vit C 250 mg-vit E 90 mg-zinc 40 1 tab PO DAILY 02/14/24 02/14/24 mg-copper 1 ue-loyslz-owuhey capsule (PreserVision AREDS-2) Allergies Allergy/AdvReac Type Severity Reaction Status Date / Time Influenza Virus Vaccines Allergy Intermediate Verified 02/14/24 21:27 Sulfa (Sulfonamide Allergy Intermediate Verified 02/14/24 21:27 Antibiotics) Review of Systems ROS Status of ROS 10 or more systems reviewed and unremark able except as noted in history and below Exam Constitutional Vital Signs, click to edit/add: Last Vital Signs Temp 98.7 F 02/14/24 21:20 Pulse 67 02/14/24 22:30 Resp 22 02/14/24 21:20 BP 166/89 H 02/14/24 22:30 Pulse Ox 95 02/14/24 22:30 O2 Del Method Room Air 02/14/24 21:20 Common normals: no apparent distress, healthy appearing, alert and well nourished HENMT Common normals: normocephalic and head/scalp atraumatic Eye Common normals: EOMs intact bilaterally and conjunctivae normal Respiratory Common normals: normal respiratory effort, no retractions, no use of accessory muscles and clear to auscultation bilaterally Cardio Common normals: regular rate, regular rhythm, S1 normal heart sound and S2 normal heart sound GI Common normals: Normal to inspection, nondistended, normoactive bowel sounds present, soft to palpation and non-tender Extremity Common normals: normal to inspection and full ROM Neuro Luisa Coma Scale: other (awake and alert) Common normals: moves all extremities and no focal motor deficits Psych Appearance: grossly normal Course Vital Signs Vital signs: Vital Signs Temperature 98.7 F 02/14/24 21:20 Pulse Rate 71 02/14/24 21:20 Respiratory Rate 22 02/14/24 21:20 Blood Pressure 150/100 H 02/14/24 21:20 Pulse Oximetry 96 02/14/24 21:20 Oxygen Delivery Method Room Air 02/14/24 21:20 Temperature 98.7 F 02/14/24 21:20 Pulse Rate 67 02/14/24 22:30 Respiratory Rate 22 02/14/24 21:20 Blood Pressure 166/89 H 02/14/24 22:30 Pulse Oximetry 95 02/14/24 22:30 Oxygen Delivery Method Room Air 02/14/24 21:20 MDM - Altered Mental Status MDM Narrative Medical decision making narrative: [facility] patient [facility] transferred from [facility] because staff stated she was altered and less responsive than normal. Arrives awake and alert and actively participating in conversation. Labs without evidence of UTI. Labs demonstrate mild dehydration and COVID19 viral infection. No respiratory distress and cxray clear. Patient discharged back to the home Lab Data Labs: Lab Results 02/14/24 02/14/24 02/14/24 Range/Units 21:24 21:34 22:10 WBC 6.7 (4.0-11.0) 10^3/uL RBC 4.17 L (4.20-5.40) 10^6/uL Hgb 12.4 (12.0-16.0) g/dL Hct 40.9 (36.0-48.0) % MCV 98.1 (81.0-99.0) fL MCH 29.7 (26.7-34.0) pg MCHC 30.3 (29.9-35.2) g/dL RDW 14.1 (11.0-15.0) % Plt Count 150 (150-450) 10^3/uL MPV 10.8 (9.5-13.5) fL Neut % (Auto) 58.0 (43.0-75.0) % Lymph % (Auto) 19.1 L (20.5-60.0) % [place] % (Auto) 18.2 H (1.7-12.0) % Eos % (Auto) 3.4 (0.9-7.0) % Baso % (Auto) 0.7 (0.2-2.0) % Neut # (Auto) 3.9 (1.4-6.5) 10^3/uL Lymph # (Auto) 1.3 (1.2-3.8) 10^3/uL [place] # (Auto) 1.2 H (0.3-0.8) 10^3/uL Eos # (Auto) 0.2 (0.0-0.7) 10^3/uL Baso # (Auto) 0.1 (0.0-0.1) 10^3/uL Abs Immat Gran (auto) 0.04 H (0.00-0.03) 10^3/uL Imm/Tot Granulo (auto) 0.6 H (0.0-0.5) % Sodium 136 (136-145) mmol/L Potassium 3.9 (3.5-5.1) mmol/L Chloride 102 (98-107) mmol/L Carbon Dioxide 25.1 (21.0-32.0) mmol/L Anion Gap 12.8 BUN 23.0 H (7.0-18.0) mg/dL Creatinine 1.50 H (0.55-1.02) mg/dL Est GFR ( Amer) 42 L (>=60) Est GFR (Non-Af Amer) 34 L (>=60) BUN/Creatinine Ratio 15.3 Glucose 146 H (74-106) mg/dL Calcium 8.8 (8.5-10.1) mg/dL Urine Color Yellow (YELLOW) Urine Clarity Clear (CLEAR) Urine pH 5.0 (5.0-9.0) Ur Specific [place] >=1.030 A (1.005-1.025) Urine Protein 100 A (NEG/TRACE) mg/dL Urine Glucose (UA) Negative (NEGATIVE) mg/dL Urine Ketones Negative (NEGATIVE) mg/dL Urine Occult Blood Trace-i (NEGATIVE) Urine Nitrite Negative (NEGATIVE) Urine Bilirubin Negative (NEGATIVE) Urine Urobilinogen 0.2 (0.2-1.0) EU/dL Ur Leukocyte Esterase Negative (NEGATIVE) Urine RBC 0-2 (0-2) #/HPF Urine WBC 0-2 A (NONE SEEN) #/HPF Ur Squamous Epith Cells None seen (NONE/RARE) #/LPF Urine Crystals None seen (None Seen) #/HPF Urine Bacteria Trace A (NONE SEEN) #/HPF Urine Casts None seen (NONE SEEN) #/LPF Urine Mucus None seen (NONE SEEN) Influenza Type A Ag Negative Influenza Type B Ag Negative SARS-CoV-2 Ag (CV2AG) Positive A (NEGATIVE) Discharge Plan Discharge Stand Alone Forms: Portal Instructions Chief Complaint: Altered Mental Status Clinical Impression: COVID-19, Dehydration Patient Disposition: Home, Self-Care Prescriptions / Home Meds: No Action acetaminophen 500 mg capsule 500 mg PO BID alpha lipoic acid 600 mg tablet 600 mg PO DAILY atorvastatin 80 mg tablet 80 mg PO DAILY insulin glargine [Basaglar KwikPen U-100 Insulin] 100 unit/mL (3 mL) insulin pen 30 unit subcut QPM biotin 10 mg tablet 10 mg PO DAILY xuelizvt-qew-biayxtr gluconate 9 mg iron/ 15 mL (15 mL) liquid 15 ml PO DAILY cetirizine 5 mg tablet 5 mg PO DAILY polyethylene glycol 3350 [ClearLax] 17 gram/dose powder 17 g PO QDAY clopidogrel 75 mg tablet 75 mg PO DAILY cranberry 400 mg capsule 450 mg PO DAILY Rx Instructions: administer with a meal d-mannose 500 mg capsule 500 mg PO DAILY docusate sodium [Col-Rite] 100 mg capsule 100 mg PO DAILY donepezil 10 mg tablet 10 mg PO BID famotidine 20 mg tablet 20 mg PO DAILY furosemide 40 mg tablet 40 mg PO DAILY gabapentin 600 mg tablet 600 mg PO TID glimepiride 2 mg tablet 2 mg PO DAILY glucosamine sulfate [Glucosamine] 500 mg tablet 3,000 mg PO DAILY Rx Instructions: administer with meals memantine 10 mg tablet 10 mg PO DAILY potassium chloride 20 mEq tablet,ER particles/crystals 20 meq PO DAILY PreserVision AREDS-2 250-90-40-1 mg capsule 1 tab PO DAILY Saccharomyces boulardii [Florastor] 250 mg capsule 250 mg PO DAILY pramoxine [Proctofoam] 1 % foam 1 applic NH TID venlafaxine 150 mg capsule,extended release 24hr 150 mg PO DAILY cyanocobalamin (vitamin B-12) [Vitamin B-12] 1,000 mcg tablet 1,000 mcg PO DAILY cholecalciferol (vitamin D3) [Vitamin D3] 25 mcg (1,000 unit) capsule 1,000 unit PO DAILY insulin aspart U-100 [Novolog U-100 Insulin aspart] 100 unit/mL solution 1 sliding scale dose subcut DAILY Trulicity 3 mg/0.5 mL pen injector 3 mg SUBCUT .weekly Rx Instructions: saturday loperamide 2 mg capsule 2 mg PO Q6H PRN (Reason: loose stool) magnesium hydroxide [Milk of Magnesia] 400 mg/5 mL suspension 5 ml PO DAILY PRN (Reason: constipation) nitroglycerin 0.4 mg tablet, sublingual 0.4 mg sublingual Q5M PRN (Reason: chest pain) Rx Instructions: do not exceed 3 doses per episode ondansetron 4 mg tablet,disintegrating 4 mg PO TID-QID PRN (Reason: nausea and vomiting) Instructions: Dehydration (ED), COVID-19 (Coronavirus Disease 2019) (ED) Referrals: JOSE SNOW [Primary Care Provider] - 1 week
[2024-02-14 21:50] LABS: Bilirubin Urine NEGATIVE (NEGATIVE); Blood Urine TRACE-I (NEGATIVE); Clarity Urine CLEAR (CLEAR); Color Urine YELLOW (YELLOW); Glucose Urine UA NEGATIVE (NEGATIVE); Ketones Urine NEGATIVE (NEGATIVE); Leukocyte Esterase Urine NEGATIVE (NEGATIVE); Nitrite Urine NEGATIVE (NEGATIVE); Protein Urine 100 mg/dL (NEG/TRACE); Specific Gravity Urine >=1.030 (1.005-1.025); Urine Microscopic Indicated YES; Urobilinogen Urine 0.2 EU/dL (0.2-1.0)
[2024-02-14 21:55] LABS: Influenza Virus A Antigen Negative; Influenza Virus B Antigen Negative; Internal Control Within Normal Limits; SARS-CoV-2 Ag POSITIVE (NEGATIVE)
[2024-02-14 21:58] LABS: Bacteria Urine TRACE #/HPF (NONE SEEN); Mucus Urine NONE SEEN (NONE SEEN); RBC Urine 0-2 #/HPF (0-2); Squamous Epithelial Cell Urine NONE SEEN #/LPF (NONE/RARE); WBC Urine 0-2 #/HPF (NONE SEEN)
[2024-02-14 21:59] LABS: Cast Seen? NONE SEEN #/LPF (NONE SEEN); Crystals Seen? None Seen #/HPF (None Seen)
[2024-02-14 22:20] LABS: Basophils Absolute Auto 0.1 10^3/uL (0.0-0.1); Basophils Percent Auto 0.7 % (0.2-2.0); Eosinophils Absolute Auto 0.2 10^3/uL (0.0-0.7); Eosinophils Percent Auto 3.4 % (0.9-7.0); Hematocrit 40.9 % (36.0-48.0); Hemoglobin 12.4 g/dL (12.0-16.0); Immature Granulocytes Abs Auto 0.04 10^3/uL (0.00-0.03); Immature Granulocytes Pct Auto 0.6 % (0.0-0.5); Lymphocytes Absolute Auto 1.3 10^3/uL (1.2-3.8); Lymphocytes Percent Auto 19.1 % (20.5-60.0); Mean Corpuscular HGB Conc 30.3 g/dL (29.9-35.2); Mean Corpuscular Hemoglobin 29.7 pg (26.7-34.0); Mean Corpuscular Volume 98.1 fL (81.0-99.0); Mean Platelet Volume 10.8 fL (9.5-13.5); Monocytes Absolute Auto 1.2 10^3/uL (0.3-0.8); Monocytes Percent Auto 18.2 % (1.7-12.0); Neutrophils Absolute Auto 3.9 10^3/uL (1.4-6.5); Platelet Count 150 10^3/uL (150-450); Red Blood Count 4.17 10^6/uL (4.20-5.40); Red Cell Distribution Width 14.1 % (11.0-15.0); White Blood Count 6.7 10^3/uL (4.0-11.0)
[2024-02-14 22:25] LABS: Anion Gap 12.8; BUN Creatinine Ratio 15.3; Calcium 8.8 mg/dL (8.5-10.1); Carbon Dioxide 25.1 mmol/L (21.0-32.0); Chloride 102 mmol/L (98-107); Estimated GFR (African America 42 (>=60); Estimated GFR (Non-African Ame 34 (>=60); Glucose 146 mg/dL (74-106); Potassium 3.9 mmol/L (3.5-5.1); Sodium 136 mmol/L (136-145)
[2024-02-14 22:30] VITALS: BP 166/89; PULSE 67; O2SAT 95
[2024-02-14] MEDS: ACETAMINOPHEN 500 MG TABLET 1000 MG PO (22:54)
[2024-02-14 23:21] VITALS: BP 170/93; PULSE 73; O2SAT 97
== END 2024-02-14 23:25 | disposition home or self-care (01) ==
PROVIDERS: Emergency Provider Internal Medicine; PCP Family Medicine
DX: U07.1 COVID-19 (principal); E86.0 Dehydration; Z66 Do not resuscitate; Z79.899 Other long term (current) drug therapy; Z79.4 Long term (current) use of insulin
CPT/HCPCS: 36415; 71045; 80048; 81001; 85025; 87804; 87811; 99285

== ENCOUNTER 2024-02-24 12:40 | Outpatient (OUT) | payer MEDICARE, OTHER, SELFPAY ==
--- OUTSIDE RECORDS SUMMARY | 2024-02-24 13:02 | XMS_ITS | CCD ---
Author Organization [facility] Care Team Providers Care Hyperbaric Technologist Name Role Phone Dusty Walters Unavailable Unavailable Unavailable Chip Craft Unavailable Lizandro Martins Unavailable Selena, Dr. Dusty Zacarias Primary Care Unavailab Cinthia Maxwell Attending Unavailable [...] ., DR DUSTY Seals Primary Care Unavailable LUDYCHNY ., DONELL HAMM Consulting Unavailsharri GERMAN .CONNER Admitting Unavailable NIALL CELIS Consulting Unavailable NEFFLORIN GOODWIN Consulting Unavailable THONY JOHNSTON Consulting Unavailable WALTERS ., DR DUSTY Seals Primary Care Unavailable ZIEBGORDY, DR ADAMS Montesinos Consulting Unavailable MARKER ., DR ZAPATA Attending Unavailable MARKER ., DR ZAPATA Admitting Unavailable MARKER ., DR ZAPATA Consulting Unavailable WALTERS ., DR DUSTY Seals Primary Care Unavailable ENID, DR AJ Montesinos Consulting Unavailable ENID, DR AJ Montesinos Attending Unavailable ENID, DR AJ Montesinos Admitting Unavailable THONY CLARK Unavailable WALTERS ., DR DUSTY Seals Primary Care Unavailable PAY ., DR NOBLE Attending Unavailable ROSSI, DR AJ Montesinos Consulting Unavailable PAY ., DR NOBLE Admitting Unavailable PATTIE ., OSMEL Consulting Unavailable HECTOR, AJ Attending Unavailable WALTERS ., DR DUSTY Seals Primary Care Unavailable SHANNANJ, AJ Admitting Unavailable ZIEBER, DR ADAMS Montesinos Consulting Unavailable BEJ, AJ Consulting Unavailable MISC, DR ROSAS Consulting Unavailable MISC, DR ROSAS Attending Unavailable WALTERS ., DR DUSTY Seals Primary Care Unavailable MISC, DR ROSAS Admitting Unavailable ZIEBGORDY, DR ADAMS Montesinos Consulting Unavailable WALTERS ., DR DUSTY Seals Consulting Unavailable WALTERS ., DR DUSTY Seals Attending Unavailable WALTERS ., DR DUSTY Seals Admitting Unavailable WALTERS ., DR DUSTY Seals Primary Care Unavailable RINGGOLD, DR NIALL Underowod Consulting Unavailable BEJ, AJ Admitting Unavailable WALTERS ., DR DUSTY Seals Primary Care Unavailable BEJ, AJ Consulting Unavailable HECTOR, AJ Attending Unavailable Jose Snow Primary Care Physician [phone] Brigida George Unavailable Tanika Lopez Unavailable MD Dusty Walters Primary Care Provider MD Lizandro Martins Attending Provider DARRICK Pal Attending Provider Anjana Pal Unavailable Lizandro Martins Admitting Unavailable Lizandro Martins Attending Unavailable Dusty Walters Primary Care Unavailable Anjana Pal Admitting Unavailable Anjana Pal Attending Unavailable Dusty Walters Primary Care Unavailable Jose Snow MD Primary Care Provider [phone] CINTHIA VAZQUEZ Attending Unavailable JOSE SNOW Primary Care Unavailable Jose Snow Attending Unavailable Mariangel Campbell Attending Unavailable Jose Snow Attending Unavailable Jose Snow Attending Unavailable Mariangel Campbell Attending Unavailable MD CHIP CRAFT Referring Unavailable BRIGIDA WILLOUGHBY Attending Unavailable BRIGIDA WILLOUGHBY Attending Unavailable BRIGIDA WILLOUGHBY Attending Unavailable BRIGIDA WILLOUGHBY Referring Unavailable BRIGIDA WILLOUGHBY Attending Unavailable MD CHIP CRAFT Referring Unavailable Magui Sam Attending Unavailable Joe BOOTH Attending Unavailable Joe BOOTH P Admitting Unavailable Joe BOOTH P Referring Unavailable Jose Snow EStephanie Attending Unavailable Kaushal Jose E. Admitting Unavailable Adrian Mariangel L Attending Unavailable Adrian, Mariangel L Admitting Unavailable Ross Jose E. Attending Unavailable Adrian, Mariangel L Attending Unavailable Allergies Allergy Classification Reported Allergen(s) Allergy Type Date of Onset Reaction(s) Facility (7 sources) Sulfonamides (Antibiotic); Translations: [Sulfa Drugs] Allergy to drug (finding) Unknown (qualifier value) [facility] (2 sources) FLU; Translations: [FLU] Allergy to drug (finding) [facility] 250 DO Work Phone: (9 sources) Sulfonamides (Antibiotic) Drug allergy Unknown [facility] Other (9 sources) Influenza Vac Recom CARREON Quad PF Drug allergy Unknown [facility] Other (2 sources) Sulfonamides (Antibiotic) Drug allergy (disorder) [facility] (2 sources) Flu Vaccine [id number] (3 yr +) Drug allergy (disorder) 01-18-20 16 [facility] (5 sources) Sulfonamides (Antibiotic); Translations: [Sulfa (Sulfonamide Antibiotics)] Allergy to substance 03-31-20 19 Unknown [facility] (3 sources) Influenza Virus Vaccines; Translations: [Influenza Virus Vaccines] Allergy to substance 03-31-20 19 Hx. Guillian-Kadoka ; told no flu vaccines [facility] (3 sources) influenza A virus A/[place]/[id number] (H1N1) antigen / influenza A virus A/[place]/[id number] (H3N2) antigen / influenza B virus B/[place] antigen / influenza B virus B/ antigen; Translations: [influenza virus vaccine] Drug Allergy [facility] Comment on above: contraindicated due to guilian barre (2 sources) Flu Medicine; Translations: [FLU MEDICINE] Drug Allergy 12-16-19 24 Unknown [facility] (1 source) influenza virus vaccine, inactivated; Translations: [influenza virus vaccine, inactivated] Propensity to adverse reactions (disorder) [facility] Repository Medications Current Medications Medication Drug [...] Status: Ordered Start: 06-27-2018 End: 04-09-2019 take 62361 ug by mouth twice daily Biotin Discontinued 13214 MCG PO Twice daily June 27, 2018 12:00am April 09, 2019 9:42am Start: 02-18-2018 End: 03-13-2018 take 1000 ug by mouth twice daily Biotin Discontinued 1000 MCG PO Twice daily February 18, 2018 12:00am March 13, 2018 10:19am biotin 1,000 mcg tablet,chewable Chew 1 tablet once daily. 0 Active take 1 tablet by fermín th twice daily Biotin 47056 MCG 1 tablet Orally twice a day [...] afterwards, # 2 tab(s), Refills(s) 0, Pharmacy: [facility] [place], 160, cm, 11/21/23 10:42:00 EST, Height/Length Dosing, 138, kg, 11/21/23 10:42:00 EST, Weight Dosing Start Date: 11/26/23 Status: Ordered Start: 05-16-2023 End: 05-23-2023 take 1 tablet by mouth every twelve hours Cipro 500 mg Tab 500 mg = 1 tab(s), Oral, q12hr, X 7 day(s), # 14 tab(s), Refills(s) 0, Pharmacy: [facility] [place], 158, cm, 05/16/23 14:43:00 EDT, [...] gel (15 sources) Nonsteroidal Anti-inflammatory Drug Start: apply 1 g topically twice daily Diclofenac [...] sources) Start: 05-16-2023 take 1 capsule by [facility] once daily as needed for constipation Colace [...] qWeek, # 12 EA, Refills(s) 0, Pharmacy: [facility] [place], 158, cm, 09/09/23 16:01:00 EDT, [...] Once, # 1 tab(s), Refills(s) 0, Pharmacy: [facility] Start Date: 04/01/23 Status: Ordered Freestyle Bang [...] afternoon and bedtime. take 1 capsule by [facility] every eight hours Gabapentin 300 MG 1 [...] teresa, Rectal, TID, 10 gram, Refill(s) 0, [facility] [place], 160, cm, 12/16/23 10:57:00 EST, [...] injector (20 sources) Insulin Analog Start: 05-16-2023 Ishanaglgualberto RutledgeP en 100 units/mL subcutaneous solution See Instructions, [...] hydrochloride 10 mg oral tablet (16 sources) T-vlycra-D-aspartate Receptor Antagonist Start: 01-29-2022 take 1 tablet [...] day(s), # 20 cap(s), Refills(s) 0, Pharmacy: [facility] [place], 160, cm, 12/16/23 10:57:00 EST, [...] 05/16/23 Status: Ordered take 2 tablets by [facility] every eight hours as needed ondansetron (Zofran) [...] 0 Start Date: 09/09/23 Status: Ordered sennosides, fci 8.6 mg oral tablet (2 sources) Start: [...] day, Supply Start Date: 07/15/23 Status: Ordered Xjunkbda-Ezwxj-Typfw -Cf Borate ([employer]) 750 mg-100 mg- 1.65 mg-108 mg Tablet (4 sources) Start: 06-27-2018 End: 04-09-2019 take 1 tablet by mouth once daily Pkskjqjv-Iqczw-Nljq u-Cf Borate ([employer]o) 750 mg-100 mg- 1.65 mg-108 mg Tablet Discontinued 2 TAB PO Daily June 27, 2018 12:00am April 09, 2019 9:42am Start: 02-18-2018 End: 03-06-2018 take 1 tablet by mouth once daily Tnyleadk-Ejoxh-Spugx-Cf Borate ([employer] [facility] [employer]) 750 mg-100 mg- 1.65 mg-108 mg Tablet [...] Start Date: 08/23/23 Status: Ordered JOSÉ ANTONIO G-F 20 (20 sources) Start: 06-20-2017 [employer] Jun 6 mL Start: 06-13-2017 [employer] Jun 6 mL Start: 06-06-2017 [employer] Jun 6 mL lidocaine 0.05 mg/mg medicated [...] 16, 2019 12:00am April 09, 2019 9:42am Zh-Elr-Pujmf-Calcium Carb-K1 (Women's 50 Plus Daily Formula) 400 mcg-500 mg calcium-20 mcg Tablet (4 sources) Start: 06-27-2018 End: 03-16-2019 take 1 tablet by mouth once daily Tl-Vmh-Nslce-Calcium Carb-K1 (Women's 50 Plus Daily Formula) 400 mcg-500 mg calcium-20 mcg Tablet Discontinued 1 TAB PO Daily June 27, 2018 12:00am March 16, 2019 2:32pm Start: 02-18-2018 End: 03-13-2018 take 1 tablet by mouth once daily Ma-Luf-Phpps-Calcium Carb-K1 (Women's 50 Plus Daily Formula) 400 mcg-500 mg calcium-20 mcg Tablet Discontinued 1 TAB PO Daily February 18, 2018 12:00am March 13, 2018 10:20am Novolin L 100 UNIT/ML SUSP (1 source) Novolin L 100 UNIT/ML SUSP USE DIRECTED. Quantity: 0 Refills: 0 Ordered: 04-Apr-2023 DO Active nystatin 949003 unt/ml topical cream (2 sources) Polyene Antifungal [...] 06, 2018 12:28pm take 1 capsule by [facility] once daily alpha lipoic acid 600 mg [...] Administrative/social admission (3 sources) Lives in a skilled nursing; Translations: [Person living in residential institution] 03-07-2018 Episodic Cancer of uterus (3 sources) Malignant neoplasm of uterus 09-04-2023 Chronic Chronic kidney disease (16 sources) Chronic kidney disease stage 3B ; Translations: [Chronic kidney disease, stage 3b] 03-07-2018 Chronic Coronary atherosclerosis and other heart disease (16 sources) Double coronary vessel disease; Translations: [Coronary atherosclerosis of unspecified type of vessel, [place] or graft] Onset: 08-29-2022 04-01-2019 Chronic Coronary [...] 11-09-2022 Chronic Comment on above: [facility] Disorders of lipid metabolism (20 sources) Hyperlipidemia; Translations: [Other and unspecified hyperlipidemia] Onset: 05-15-2022 Resolved: 05-15-2022 Chronic Essential hypertension (20 sources) Essential hypertension; Translations: [Unspecified essential hypertension] Onset: 05-15-2022 Resolved: 05-15-2022 Chronic Comment on above: [facility] Fluid and electrolyte [...] system disorders (3 sources) 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 Episodic Other non-traumatic joint disorders [...] Onset: 11-20-2022 Episodic Other aftercare (1 source) 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; Translations: [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 CURRENT USE OF ASPIRIN] Onset: 01-28-2023 Episodic Other aftercare (1 source) Other long-term (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 therapy; Translations: [OTH LONGTERM CURRENT DRUG THERAPY] Onset: 01-28-2023 Episodic Other aftercare (1 source) 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 Screenson 02-07-2024 Screens [id number]#1.00TIFF Normal [facility] Prison Recordson 02-05 Prison Records [id number]#1.00TIFF [facility] Living Will/POAon 02-05-2024 Living Will/POA [id number]#1.00TIFF [facility] Prison Recordson 02-04 Prison Records [id number]#1.00TIFF [facility] Ambulatory Visit Summaryon 0 02-04-2024 Ambulatory Visit Summary MALCOM KNOWLES :1955 Visit Date:02/04/2024 Ambulatory Visit Instructions Your Care Team Attending Physician - BRIGIDA WILLOUGHBY PA-C Primary Care Physician - Jose Snow MD. Referring Physician - BRIGIDA WILLOUGHBY PA-C This [...] EDT With: Kaushal JUDGE, Jose Lau Where: [facility] [place] Invalid Interpretation Code [address] [place] [address]- \.br\ Saturday 2:00 PM EDT \.br\ With: BRIGIDA WILLOUGHBY PA-C\.br\ Where: [facility] Patient Educationon 02-04-20 Patient Education Obstetrics and [...] health care provider. General instructions ? Take vlgk-iut-kavprwx and prescription medicines only as told by [...] monitor yo (more content not included)... Normal [facility] Urology Office/Clinic Noteon 02-04-2024 Urology Office/Clinic Note [...] With When Contact Information [facility] [place] [address] Business (1) Additional Instructions: our commercial lines assistant will be contacting you for follow-up Patient Education Overactive Bladder, Adult Problem List/Past Medical History Ongoing (Idiopathic) normal pressure hydrocephalus ASCVD (arteriosclerotic cardiovascular disease) Benign hypertension with chronic kidney disease BMI 50.0-59.9, adult CKD (chronic kidney disease) stage 3, GFR 30-59 ml/min Confusion Diabetic retinopathy Essential tremor Frequent falls Frequent UTI Gait disorder Gross hematuria History of Uterine cancer HTN (hypertension) Hx of Guillain-Kadoka syndrome Hypercholesterolem ia Insulin long-term use Major [...] History of l (more content not included)... [facility] Comment on above: Result Comment: Elec tronically Signed By: BRIGIDA WILLOUGHBY PA-C\.br\Date and Time Signed: 02/04/24 12:37 EST Consultation Noteon 01-23-20 Consultation Note [id number]#1.00TIFF [facility] Home Recordson 01-17 Prison Records [id number]#1.00TIFF [facility] Consultation Noteon 01-13-20 Consultation Note [id number]#1.00TIFF [facility] Consultation Note [id number]#1.00TIFF [facility] Prison Recordson 01-01 Prison Records [id number]#1.00TIFF [facility] Prison Recordson 12-30 Prison Records [id number]#1.00TIFF Normal [facility] Prison Recordson 12-25 Prison Records [id number]#1.00TIFF Normal [facility] Consent for Procedure/Surger yon 12-23-2023 Consent for Procedure/Surgery [id number]#1.00TIFF Normal [facility] Consent for Treatmenton 12-03 Consent for Treatment [id number]#1.00TIFF [facility] Inpatient Patient Summaryon 12-23-2023 Inpatient Patient Summary [place] [id number] Clinical Summary Person Information Name: MALCOM KNOWLES Age: 68 Years : 1955 Sex: Female PCP: Jose Snow MD Marital Status: Race: White Ethnicity: Non- or Language: Wolof Visit Id: Visit Reason: URINARY INCONTINENCE URETERAL STRICTURE RECURRENT UTI Speciality: Acuity: Enc Type: Outpatient Med Service: Surgery Arrival: 12/23/2023 14:07:21 Discharge: Dispo Type: Address: [address] [place] [address] [id number] Provider Notes: Diagnosis: Problems Active (Idiopathic) normal pressure hydrocephalus Frequent falls Confusion Polyuria Urethral stricture UTI (urinary tract infection) UTI symptoms Gross hematuria Mixed incontinence Major depressive disorder with single episode, in full remission Stage 3b chronic kidney disease (CKD) Hx of Guillain-Kadoka syndrome Morbid obesity Benign hypertension with chronic [...] 1 Table (more content not included)... Normal [facility] IntraOperative Documentson 0 12-23-2023 IntraOperative Documents [id number]#1.00TIFF Normal [facility] Main OR Intraoperative Recor don 12-23-2023 Main OR Intraoperative Record IntraOp Document Type FTURO Summary Primary Physician: Joe BOOTH MD Finalized Date/Time: 12/23/23 15:44:42 Pt. Name: MALCOM KNOWLES/Sex: 1955 Female Med Rec #: [id number] Physician: Joe BOOTH MD Financial #: [id number] Pt. Type: O Room/Bed: / Admit/Disch: 12/23/23 14:07:21 - Institution: Case Times FTURO Entry 1 Patient Times In Room 12/23/23 15:19:00 Out Room 12/23/23 15:39:00 Procedure Times Start 12/23/23 15:29:00 Stop 12/23/23 15:33:00 Anesthesia Times Last Modified By: RAJESH Zambrano RN, Samaria 12/23/23 15:33:40 Case Attendance FTURO Entry 1 Entry 2 Entry 3 Case Attendee EMMY JUDGE, Joe Zambrano RN, CNOR, Mini Braswell Role Performed Surgeon - Primary Compressor Mechanic - Primary Scrub - Primary Time In 12/23/23 15:19:00 12/23/23 15:19:00 12/23/23 15:19:00 Time Out 12/23/23 15:39:00 12/23/23 15:39:00 12/23/23 15:39:00 Procedure CYSTOSCOPY LOCAL WITH CYSTOSCOPY LOCAL WITH CYSTOSCOPY LOCAL WITH URETHRAL DILATION(.) URETHRAL DILATION(.) URETHRAL DILATION(.) Comments Last Modified By: Juan Manuel DE LOS SANTOS, JOSE LUISOR, Juan Manuel DE LOS SANTOS, JOSE LUISOR, Juan Manuel DE LOS SANTOS, JOSE LUISOR, Samaria 12/23/23 Samaria 12/23/23 Samaria 12/23/23 15:33:43 15:33:43 15:33:43 Surgical Procedures FTURO Entry 1 Procedure Description Procedure CYSTOSCOPY LOCAL WITH Modifiers . URETHRAL DILATION Surgeon Description cysto with UD Primary Procedure Yes Primary Surgeon Joe BOOTH MD Start 12/23/23 15:29:00 Stop 12/23/23 15:33:00 Anesthesia Type Local Surgical Service Urology Wound Class 2 - Clean-Contaminated Last Modified By: Juan Manuel DE LOS SANTOS, JOSE LUISOR, Samaria 12/23/23 15:33:44 General Case Data FTURO Pre-Care [...] RAJESH Zambrano RN, Ruthann 12/23/23 15:[address] [facility] Main OR Preoperative Recordo n 12-23-2023 Main OR Preoperative Record Holding Area Document Type FTURO Summary Primary Physician: Joe BOOTH MD Finalized Date/Time: 12/23/23 14:30:39 Pt. Name: MALCOM KNOWLES /Sex: 1955 Female Med Rec #: [id number] Physician: Joe BOOTH MD Financial #: [id number] Pt. Type: O Room/Bed: / Admit/Disch: 12/23/23 [...] By: Michelle Bedolla RN 12/23/23 14:[address] [facility] Operative Reporton Operative Report Patient: MALCOM [...] The Urethra is: Tight, Tight at 18 [place]. The Bladder is: Normal, Trabeculated Moderate (2), No tumors, no stones. Moderate retained urine.. The ureteral orifices: Show efflux of clear urine. The Urethra was dilated to: 30 [place] w/ sounds. Devices Implanted: None. Removal: Cystoscope [...] available on her nursing facility formulary.. Normal [facility] Comment on above: Result Comment: Elec tronically Signed By: Joe BOOTH MD\.br\Date and Time Signed: 12/23/23 15:48 EST Outpatient Surgery Discharge Instructionon 12-23-2023 Outpatient Surgery Discharge Instruction [address] [address] Patient Discharge Instructions PERSON INFORMATION [...] 911 Follow up: With: Address: When: BRIGIDA [address] [place] [id number] [facility] (1) Within 6 weeks Comments: Call for followup appointment, with a bladder scan for PVR at that visit. Monitor your urinary flow after the dilation of the channel today. Type Location Start Finish State URO Office Visit [facility] 02/04/2024 11:20 AM 02/04/2024 11:35 AM Confirmed FM Open [facility] 02/24/2024 10:15 AM 02/24/2024 10:25 AM Confirmed URO Office Visit [facility] 03/03/2024 2:00 PM 03/03/2024 2:15 PM [...] Date You may receive a survey from Sumeet Randle asking you to rate your care experience. Your feedback is important and will help us understand what we do well and how we can improve the quality of care we provide to you, your loved ones and our community. It?s an honor to serve you. Thank you for choosing [facility] Normal [facility] Prison Recordson 12-17 Prison Records [id number]#1.00TIFF Normal [facility] Ambulatory Visit Summaryon 0 12-16-2023 Ambulatory Visit Summary MALCOM KNOWLES :1955 Visit Date:12/16/2023 Ambulatory Visit Instructions Your Diagnosis UTI (urinary tract infection) Polyuria Confusion Frequent falls (Idiopathic) normal pressure hydrocephalus BMI 50.0-59.9, adult Tests Performed Urnls Dip Stick Non-Auto w/o Micrscpy POC 43042 Your Care Team Attending Physician - Mariangel [...] Appointments Saturday 11:00 AM EST With: Where: [facility] Saturday 3:00 PM EST With: Where: [facility] Saturday 10:15 AM EDT With: Kaushal JUDGE, Jose Lau Where: [facility] Normal [address] [place] [address] \.br\ Medications\.br\ What How Much When Why Instructions\.br\ New hydrocortisone-pramox ine topical (Proctofoam HC rectal foam) 1 Application By rectum 3 times a day UTI (urinary tract infection) BMI 50.0-59.9, adult [facility]br\ Unchanged acetaminophen (acetaminophen 500 mg Tab) [...] a day Duration: 10 Days Pickup at [facility]\.br\ Unchanged nitroglycerin (nitroglycerin 0.4 mg sublingual Tab) [...] daily as needed \.br\ Pharmacy Information\.br\ [facility] [place]: [address] [place], [place] [address] [phone]\.br\ Test Results\.br\ Urnls Dip Stick Non-Auto w/o Micrscpy POC 08133 (12/16/2023)\.br\ Bilirubin Urine Dipstick - Negative\.br\ Blood Urine Dipstick - 3+ Large\.br\ Glucose Urine Dipstick - Negative\.br\ Ketones Urine Dipstick - Negative\.br\ Leukocytes Urine Dipstick - 2+ Moderate\.br\ Nitrite Urine Dipstick - Negative\.br\ Protein Urine Dipstick - 3+ (300 mg/dl)\.br\ Specific [place] Urine Dipstick - >=1.030\.br\ Urine Appearance Urine [...] of Uterine cancer\.br\ HTN (hypertension)\.br\ Hx of Guillain-Kadoka syndrome\.br\ Hypercholesterolemia\ .br\ Insulin long-term use\.br\ Major depressive disorder with single episode, in full remission\.br\ Migraines\.br\ Mixed incontinence\.br\ Morbid obesity\.br\ Obesity\.br\ Polyuria\.br\ Stage 3b chronic kidney disease (CKD)\.br\ Type 2 diabetes mellitus with chronic kidney disease\.br\ Type 2 diabetes mellitus with hypercholesterolemia\ .br\ Urethral stricture\.br\ UTI (urinary tract infection)\.br\ UTI symptoms\.br\ Vitamin D deficiency\.br\ [facility] Family Medicine Office/Clini c Noteon 12-16-2023 Family [...] let us know. will send referral for [facility] and [facility] for suspected hydrocephalus. Ordered: hydrocortisone-pra moxine topical, 1 teresa, Rectal, TID, 10 gram, Refill(s) 0, [facility] [place], 160, cm, 12/16/23 10:57:00 EST, Height/Length Dosing, 130, kg, 12/16/23 10:53:00 EST, Weight Dosing [facility] [place] [facility]ulatory Referral Urnls Dip Stick Non-Auto w/o Micrscpy POC 80416 2. Polyuria (R35.89: Other polyuria) pt has had worsening polyuria. was told by digester capper and Dr. Snow to see neurology for suspected normotensive hydrocephalus due to all of her symptoms. will refer to [facility] Ordered: [facility] External Ambulatory Referral [facility] Ambulatory Referral 3. Confusion (R41.0: Disorientation, unspecified) worsening confusion Ordered: [facility] External Ambulatory Referral [facility] [place] Ambulatory Referral 4. Frequent falls (R29.6: Repeated falls) pt has fallen 8 times in 3 weeks. daughter requesting referral to [facility] Or[facility] [facility] [place]ulatory [facility] [facility] [place] Ambulatory Referral 5. 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 will send referral to [facility]. was previously being see by Dr. Loredo in [place] Or[place] [facility] External Amb[place] [facility] [facility] [place] Ambulatory Referral 6. BMI 50.0-59.9, adult (Z68.43: Body mass index [BMI] 50.0-59.9, adult) BMI education complete Ordered: hydrocortisone-pra moxine topical, 1 teresa, Rectal, TID, 10 gram, Refill(s) 0, [facility] [place], 160, cm, 12/16/23 10:57:00 EST, Height/Length Dosing, 130, kg, 12/16/23 10:53:00 EST, Weight Dosing Urnls Dip Stick Non-Auto w/o Micrscpy POC 55336 Orders: nitrofurantoin, 100 mg = 1 cap(s), Oral, BID, X 10 day(s), # 20 cap(s), Refills(s) 0, Pharmacy: [facility] [place], 160, cm, 12/16/23 10:57:00 EST, [...] of Uterine cancer HTN (hypertension) Hx of Guillain-Kadoka syndrome Hypercholesterolem ia Insulin long-term use Major [...] mg= 1 tab (more content not included)... [facility] Comment on above: Result Comment: Elec tronically Signed By: Mariangel Peña\.br\Date and Time Signed: 12/16/23 12:09 EST Lab Reportson 12-16-2023 Lab Reports [id number]#1.00TIFF [facility] Lab Reports [id number]#1.00TIFF [facility] Physician Referralon 024 Physician Referral [id number]. [id number]#1.00TIFF [facility] Physician Referral [id number]. [id number]#1.00TIFF [facility] Prison Recordson 12-09 Prison Records [id number] [id number]#1.00TIFF Normal [facility] Prison Recordson 12-05 Prison Records [id number] 1374#1.00TIFF Normal [facility] Transfer Inon 12-04-2023 Transfer In [id number] 626D#1.00TIFF Normal [facility] Outside Mammographyon 2023 Outside Mammography [id number] 4F24#1.00TIFF [facility] RAD - Ultrasound Reporton RAD - Ultrasound Report [id number] 2393#1.00TIFF [facility] Formson 11-22-2023 Forms [id number] 288E#1.00TIFF [facility] Prison Recordson 11-22 Prison Records [id number] 1988#1.00TIFF [facility] Physician Referralon 023 Physician Referral [id number] 49607#1.00TIFF [facility] Ambulatory Visit Summaryon 1 01-22-2023 Ambulatory Visit Summary MALCOM KNOWLES :1955 Visit Date:11/21/2023 Ambulatory Visit Instructions Your Diagnosis Mixed incontinence Gross hematuria UTI (urinary tract infection) Type 2 diabetes mellitus with chronic kidney disease Tests Performed Urnls Dip Stick Auto w/o Microscopy POC 31970 Your Care Team Attending Physician - FARTUN MCCOLLUM, BRIGIDA Seals Primary Care Physician - Kaushal JUDGE, Jose Lau Referring Physician - DEJUAN JUDGE, AZIZ This Is Your Medications List Contact prescribing [...] EDT With: Kaushal JUDGE, Jose Lau Where: [facility] [place] Normal [address] [place] [address]- \.br\ You Need to Schedule the Following Appointments\.br\ Follow Up with FARTUN MCCOLLUM, SHARON VALENCIA When: \.br\ Where:\.br\ [address]\ [place] [address]\.br\ [id number]\.br\ Medications\.br\ What How Much When Why Instructions\.br\ [...] if questions or concerns \.br\ Unchanged zinc [facility] Prison Recordson 11-213 Prison Records [id number]#1.00TIFF Normal [facility] Home Records [id number] 1ABA#1.00TIFF Normal [facility] Patient Educationon 11-21-20 23 Patient Education Urology Urinary Incontinence Urinary incontinence [...] stimulation). ? For women, using a medical technician assistant to prevent urine leaks. This is [...] urine. ? (more content not included)... Normal 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 Referral per Chip Mcmullen due to urinary incontinence. BUN 24, Creatinine 1.5 done 10/01/23 [facility]. 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 Pt is here with her daughter (BRYCE) today. Currently resides at [facility]. Ambulates via wheelchair. Renal fxn: 10/01/23 - [...] and control BMs. Educational pamphlets provided. Ordered: 69198 Measure Post Void residual urine and/or bladder capacity by US- non-imaging Urnls Dip Stick Auto w/o Microscopy POC 60779 2. Urethral stricture (N35.919: Unspecified urethral stricture, [...] se OTC if available. -see #2 Ordered: 74704 Measure Post Void residual urine and/or bladder capacity by US- non-imaging Urnls Dip Stick Auto w/o Microscopy POC 95421 4. 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 Normal [facility] Comment on above: Result Comment: Elec [...] female. The patient received communication from the geriatric social worker, however, the geriatric social worker was uncertain about her responsibilities. [...] patient is under the care of an caseworker protective services. Her glycemic levels have decreased. The next appointment with the caseworker protective services is scheduled after a consultation with Dr. Zhu on 12/16/2023 for a 3-month follow-up. She is also under the care of an silo filler, an insulation blower, and a retina specialist due to an [...] She has previously expressed satisfaction with the skilled nursing environment. She only receives Tylenol with her [...] No other con (more content not included)... [facility] Comment on above: Result Comment: Elec tronically Signed By: Jose Snow MD\.br\Date and Time Signed: 11/20/23 17:33 EST\.br\Electronically Co-Signed By: Rebekah Ferraro\.br\Date and Time Co-Signed: 11/20/23 17:13 EST Prison Recordson 11-07 Prison Records [id number] 13F6#1.00TIFF [facility] Home Health Recordson 2022 Home Health Records [id number]#1.00TIFF [facility] Home Health Recordson 2022 Home Health Records [id number]#1.00TIFF [facility] Outside Mammographyon 2022 Outside Mammography [id number] 004E#1.00TIFF [facility] Prison Recordson 10-28 Prison Records [id number] 114#1.00TIFF [facility] Interdisciplinary Note - Soc ial Workeron 10-16-2023 Interdisciplinary Note - Health Information Managers This SW received a message regarding placement for patient at [facility] and daughter having questions. This SW [...] or questions. SW will remain available. Normal [facility] Home Health Recordson 2022 Home Health Records [id number]#1.00TIFF Normal [facility] Auto Diffon 10-01-2023 Basophils/100 WBC (Bld) 1.0 % Normal 0.0-2.[address] [facility] Comment on above: Order Comment: Order Added by Discern Expert. Performed By: #### 2 428519, 647035924, 0601617, 7442075, 8133112, 66205268 ####[facility] [address] [place] [address] Basophils/Leukocyt es Auto (Bld) [Pure # fraction] 0.1 E9/L Normal 0.0-0.[address] [facility] Comment on above: Order Comment: Order Added by Discern Expert. Performed By: #### 2 578231, 878479234, 0979864, 6506209, 2772108, 72950468 ####[facility] [address] [place] [address] Eosinophils/100 WBC (Bld) 5.3 % Normal 0.0-8.[address] [facility] Comment on above: Order Comment: Order Added by Discern Expert. Performed By: #### 2 854911, 076531912, 9007906, 6365718, 2650908, 58960551 ####[facility] [address] [place] [address] Eosinophils/Leukoc ytes Auto (Bld) [Pure # fraction] 0.3 E9/L Normal 0.0-0.[address] [facility] Comment on above: Order Comment: Order Added by Discern Expert. Performed By: #### 2 576342, 939006585, 6804893, 9905341, 9360889, 55675915 ####[facility] [address] [place] [address] Lymphocytes/100 WBC (Bld) 37.2 % Normal 14.0-50.[address] [facility] Comment on above: Order Comment: Order Added by Discern Expert. Performed By: #### 2 638626, 457825221, 4421274, 8043310, 4935317, 61554047 ####[address] [address] Lymphocytes/Leukoc ytes Auto (Bld) [Pure # fraction] 2.0 E9/L Normal 1.0-4.[address] [facility] Comment on above: Order Comment: Order Added by Discern Expert. Performed By: #### 2 579188, 219555309, 0190902, 9914497, 4573364, 25798747 ####[address] [address] Monocytes/100 WBC (Bld) 10.7 % Normal 4.0-14.[address] [facility] Comment on above: Order Comment: Order Added by Discern Expert. Performed By: #### 2 557696, 756688214, 9015161, 8907499, 2368385, 74378013 ####[address] [address] Monocytes/Leukocyt es Auto (Bld) [Pure # fraction] 0.6 E9/L Normal 0.2-1.[address] [facility] Comment on above: Order Comment: Order Added by José Luis Expert. Performed By: #### 2 484444, 706118227, 7748729, 0723984, 1770909, 62822762 ####[address] [place] [address] Neutrophils/100 WBC (Bld) 45.8 % Normal 36.0-75.[address] [facility] Comment on above: Order Comment: Order Added by Discern Expert. Performed By: #### 2 941332, 070863102, 2201031, 4336859, 3694264, 59914602 ####[facility] [address] [place] [address] Neutrophils/Leukoc ytes Auto (Bld) [Pure # fraction] 2.5 E9/L Normal 2.0-7.[address] [facility] Comment on above: Order Comment: Order Added by Discern Expert. Performed By: #### 2 688952, 897598863, 8258199, 1187472, 2872056, 13371208 ####[address] [place] [address] CBC w/ Auto Diffon Erythrocyte distribution width (RBC) [Ratio] 15.1 % High 10.9-14.[address] [facility] Comment on above: Performed By: #### 2 062090, 475116979, 2052649, 5440232, 3036421, 47116221 ####[address] [place] [address] Hematocrit (Bld) [Volume fraction] 39.1 % Normal 34.0-46.[address] [facility] Comment on above: Performed By: #### 2 745129, 933136492, 6252464, 6574517, 2686679, 02997447 ####[address] [place] [address] Hemoglobin (Bld) [Mass/Vol] 13.1 g/dL Normal 12.0-16.[address] [facility] Comment on above: Performed By: #### 2 880362, 806142047, 1669268, 9578085, 3518201, 80765101 ####[address] [place] [address] MCH (RBC) [Entitic mass] 30.8 pg Normal 27.0-34.[address] [facility] Comment on above: Performed By: #### 2 374277, 141087048, 2118495, 0768809, 0041726, 69557534 ####[address] [place] [address] MCHC (RBC) [Mass/Vol] 33.5 g/dL Normal 31.4-36.[address] [facility] Comment on above: Performed By: #### 2 797854, 690316632, 2968005, 2513549, 5353596, 64848156 ####[address] [address] MCV (RBC) [Entitic vol] 92.0 fL Normal 80.0-100.[address] [facility] Comment on above: Performed By: #### 2 504625, 610157458, 7494531, 7917708, 1498888, 69185754 ####[address] [address] Platelet mean volume (Bld) [Entitic vol] 9.2 fL Normal 6.4-10.[address] [facility] Comment on above: Performed By: #### 2 636665, 290817287, 7601658, 8777525, 9166396, 49400351 ####[address] [address] Platelets (Bld) [#/Vol] 205.0 E9/L Normal 150.0-500.[address] [facility] Comment on above: Performed By: #### 2 329304, 274730915, 8899196, 1558312, 8607914, 79311992 ####[address] [address] RBC (Bld) [#/Vol] 4.2 E12/L Low 4.3-5.[address] [facility] Comment on above: Performed By: #### 2 186745, 476281158, 4372318, 0929597, 1377255, 69219578 ####[address] [address] WBC corrected for nucl RBC Auto (Bld) [#/Vol] 5.4 E9/L Normal 4.0-11.[address] [facility] Comment on above: Performed By: #### 2 435125, 919141571, 7424363, 3685550, 6216064, 88697094 ####[facility] [address] [place] [address] CHEMISTRYOrdered By: Peace guillaume on 10-01-2023 Albumin [...] CENTER Invalid Interpretation Code 0.00 - 200.00 [facility] Remisol CHEMISTRYOrdered By: SYSTEM SYSTEM on 10-01-2023 Albumin [Mass/Vol] 3.8 g/dL Normal 3.3 - 5.0 gm/dL [place] [facility] [place]isol Albumin/Globulin [Mass ratio] 1.1 {ratio} [...] rate/Area] 37 mL/min/1.73 m2 Low >=59mL/min/1.[address] [facility] Chem S Comment on above: Interpretive Data: [...] g/dL Normal 6.0 - 7.8 gm/dL [place] [facility] Remisol Sodium [Moles/Vol] 140 mmol/L Normal 135 - 145 mmol/L FT [facility] Triglyceride [Mass/Vol] 77 mg/dL Normal <=149mg/dL [facility] Urea nitrogen [Mass/Vol] 24 mg/dL High 5 - 21 mg/dL [facility] Remisol Urea nitrogen/Creatinin e [Mass ratio] 16 mg/mg Normal 10 - [address] [facility] Remisol CHEMISTRYOrdered By: Denisha Carlin on 10-01-2023 HbA1c (Bld) [Mass fraction] 8.2 % High <=5.9% [facility] ChemAutoSS CMPon 10-01-2023 Albumin [Mass/Vol] 3.8 g/dL Normal 3.3-5.[address] [facility] Comment on above: Performed By: #### 2 173850, 709613120, 4032238, 1967535, 7253627, 59373480 ####[facility] [address] [place] [address] Albumin/Globulin (S) [Mass conc ratio] 1.1 Normal 1.1-2.[address] [facility] Comment on above: Performed By: #### 2 907044, 271008640, 9159315, 6155066, 3242195, 23503694 ####[facility] [address] [place] [address] ALP [Catalytic activity/Vol] 61 Int._Unit/L Normal 21-[address] [facility] Comment on above: Performed By: #### 2 599286, 408762602, 1621916, 5662296, 0464524, 75120608 ####[facility] [address] [place] [address] ALT No additional P-5'-P [Catalytic activity/Vol] 26 Int._Unit/L Normal 6-[address] [facility] Comment on above: Performed By: #### 2 806156, 491555509, 3479621, 4140700, 0095047, 59450131 ####[facility] [address] [place] [address] Anion gap [Moles/Vol] 10 mmol/L Normal 6-[address] [facility] Comment on above: Performed By: #### 2 620418, 241853247, 7866609, 9442402, 3229645, 40517323 ####[facility] [address] [place] [address] AST [Catalytic activity/Vol] 31 Int._Unit/L Normal 5-[address] [facility] Comment on above: Performed By: #### 2 731390, 473525726, 0156643, 8109318, 9916136, 25177877 ####[facility] [address] [place] [address] Bilirubin [Mass/Vol] 1.1 mg/dL Normal 0.0-1.[address] [facility] Comment on above: Performed By: #### 2 229263, 923800744, 2399996, 1432251, 6070653, 57456525 ####[facility] [address] [place] [address] Calcium [Mass/Vol] 9.4 mg/dL Normal 8.9-11.[address] [facility] Comment on above: Performed By: #### 2 335869, 989202462, 2631895, 0867880, 4494369, 81814066 ####[facility] [address] [place] [address] Chloride [Moles/Vol] 104 mmol/L Normal 101-[address] [facility] Comment on above: Performed By: #### 2 174849, 713331097, 7487616, 3161726, 6223448, 51645928 ####[facility] [address] [place] [address] CO2 [Moles/Vol] 30 mmol/L Normal 21-31 [facility] Comment on above: Performed By: #### 2 569898, 010566816, 5206490, 8963924, 6308198, 89803229 ####[facility] [address] [place] [address] Creatinine [Mass/Vol] 1.5 mg/dL High 0.5-1.[address] [facility] Comment on above: Performed By: #### 2 351893, 506761957, 1566179, 4163490, 4564365, 42440742 ####[facility] [address] [place] [address] Globulin (S) [Mass/Vol] 3.6 g/dL Normal 1.4-4.[address] [facility] Comment on above: Performed By: #### 2 837875, 135058745, 9141293, 1347004, 4607690, 86823633 ####[facility] [address] [place] [address] Glucose [Mass/Vol] 176 mg/dL Normal 55-[address] [facility] Comment on above: Result Comment: If t his glucose result represents a fasting glucose, interpretation should refer to the following reference range: 55-99 mg/dL Performed By: #### 2 498535, 526196729, 1690479, 6894490, 2697069, 10488034 ####[facility] [address] [place] [address] Potassium [Moles/Vol] 3.7 mmol/L Normal 3.5-5.[address] [facility] Comment on above: Performed By: #### 2 797206, 840329236, 6911778, 8516795, 1332959, 08772765 ####[facility] [address] [place] [address] Protein [Mass/Vol] 7.4 g/dL Normal 6.0-7.[address] [facility] Comment on above: Performed By: #### 2 109988, 734635821, 0601593, 1251454, 6264169, 55965608 ####[facility] [address] [place] [address] Sodium [Moles/Vol] 140 mmol/L Normal 135-[address] [facility] Comment on above: Performed By: #### 2 583450, 979912972, 8179861, 7837838, 8116073, 64737357 ####[facility] [address] [place] [address] Urea nitrogen [Mass/Vol] 24 mg/dL High 5-[address] [facility] Comment on above: Performed By: #### 2 502015, 885885939, 4550934, 7609078, 5998653, 51741725 ####[facility] [address] [place] [address] Urea nitrogen/Creatinin e [Mass ratio] 16 No Units Normal 10-[address] [facility] Comment on above: Performed By: #### 2 990843, 233493802, 0064970, 6853836, 8935805, 68889938 ####[facility] [address] [place] [address] Consent for Treatmenton 09-03 Consent for Treatment [id number]#1.00TIFF Normal [facility] HEMATOLOGYOrdered By: SYSTEM SYSTEM on 10-01-2023 [...] 2.5 E9/L Normal 2.0 - 7.5 E9/L [facility] HemeAutoSS HEMATOLOGYOrdered By: Yamilet alas on 10-01-2023 [...] 5.4 E9/L Normal 4.0 - 11.0 E9/L [facility] HemeAutoSS [id number] 10-01-2023 HbA1c (Bld) [Mass fraction] 8.2 % High <=5.[address] [facility] Comment on above: Performed By: #### 2 380885, 732869976, 4843737, 2185898, 3454062, 73472033 ####[facility] [address] [place] [address] Lipid Panelon 10-01-2023 Cholesterol [Mass/Vol] 127 mg/dL Normal 120-[address] [facility] Comment on above: Performed By: #### 2 590146, 129641666, 3884536, 9055504, 9806452, 45070054 ####[facility] [address] [place] [address] Cholesterol in HDL [Mass/Vol] 58 mg/dL Invalid Interpretation Code [facility] Comment on above: Result Comment: HDL > or equal to 60 mg/dL: Low cardiovascular risk HDL < 40 mg/dL : High cardiovascular risk Performed By: #### 2 289629, 632930337, 0046578, 2662100, 7241708, 28868033 ####[facility] [address] [place] [address] Cholesterol in LDL [Mass/Vol] 58 mg/dL Normal <=[address] [facility] Comment on above: Performed By: #### 2 270300, 998852815, 9148669, 2099552, 3742374, 86120993 ####[facility] [address] [place] [address] Cholesterol in VLDL [Mass/Vol] 15 mg/dL Normal 7-[address] [facility] Comment on above: Performed By: #### 2 323286, 092775773, 0138257, 9536800, 6706044, 80302514 ####[facility] [address] [place] [address] Triglyceride [Mass/Vol] 77 mg/dL Normal <=[address] [facility] Comment on above: Performed By: #### 2 955587, 524769248, 6375018, 4320890, 9210894, 33379427 ####[facility] [address] [place] [address] Retail - Clinical Noteon Retail - Clinical Note [id number] 4633#1.00TIFF Normal [facility] U Microalbon 10-01-2023 Albumin DL <= 20 mg/L (U) [Mass/Vol] 9.9 microgram/mL Normal 0.0-19.[address] [facility] Comment on above: Performed By: #### 1 904663701, 02654123 ####[facility] [address] [place] [address] U Protein/Creat Ratioon 10-3 Albumin Elph (U) [Mass fraction] <6.0 Invalid Interpretation Code [facility] Comment on above: Result Comment: The reference range and other method performance specifications have not been established for this test; results should be integrated into the clinical context for interpretation. Performed By: #### 1 811640662, 69140406 ####[facility] [address] [place] [address] Creatinine (U) [Mass/Vol] 28.4 mg/dL Invalid Interpretation Code [facility] Comment on above: Result Comment: The reference range and other method performance specifications have not been established for this test; results should be integrated into the clinical context for interpretation. Performed By: #### 1 361603215, 98708023 ####[facility] [address] [place] [address] U Prot/Creat Ratio [facility] Invalid Interpretation Code .00-200.[address] [facility] Comment on above: Performed By: #### 1 307414174, 53417487 ####[facility] [address] [place] [address] eGFRon 10-01-2023 GFR/1.73 sq M.predicted among non-blacks MDRD (S/P/Bld) [Vol rate/Area] 37 mL/min/1.73 m2 Low >=[address] [facility] Comment on above: Order Comment: Order added by Discern Expert. Result Comment: Kiln Operator Helper maco kidney disease could be indicated at eGFR's of less than 60 mL/min/1.73m2. Kidney failure is indicated at less than 15 mL/min/1.73m2. Performed By: #### 2 620997, 104719013, 2686626, 3695664, 4242086, 65283171 ####[address] [place] [address] Interdisciplinary Note - Soc ial Workeron 09-23-2023 Interdisciplinary Note - Health Information Managers Consult received d/t pt's dx of DM. Patient requires bariatric equipment. Upon review of chart notes, patient resides at [facility]. Patient has been evaluated by [facility] mobility for an appropriate wheelchair. If further needs, or DME are required conversation with staff at [facility] should be had for appropriate planning and continuity of care. SW will remain available. Normal [facility] Retail - Clinical Noteon Retail - Clinical Note [id number]#1.00TIFF Normal [facility] Consultation Noteon 09-18-20 Consultation Note [id number]#1.00TIFF Normal [facility] Family Medicine Office/Clini c Noteon 09-17-2023 Family Medicine Office/Clinic Note HPI Staff Malcom is a 67 year old female presenting to [facility] care Resides at the [facility] Needs a face to face for a [...] was in an assisted living facility in [place] where she received intensive physical therapy. However, [...] to 6500 g a month and other zemq-teb-uudhkcv medications. However, the daughter states that this is not sustainable and is considering finding a cheaper living arrangement or moving the patient to a skilled nursing. She has expressed interest in losing weight. [...] as before. 4. Insulin long-term use (Z79.4: [facility] (current) use of insulin) Discussed the need of having the patient increase the medication, but we will have Dr. Zhu adjust the medication. 5. BMI 50.0-59.9, adult (Z68.43: Body mass index [BMI] 50.0-59.9, adult) 6. Morbid obesi (more content not included)... Normal [facility] Comment on above: Result Comment: Elec tronically Signed By: Jose Snow MD\.br\Date and Time Signed: 09/17/23 07:26 EDT\.br\Electronically Co-Signed By: Romana Crouch\.br\Date and Time Co-Signed: 09/09/23 18:25 EDT Prison Recordson 09-11 Prison Records [id number]#1.00TIFF [facility] Ambulatory Visit Summaryon 1 Ambulatory Visit Summary MALCOM KNOWLES :1955 Visit Date:09/09/2023 Ambulatory Visit Instructions Your Diagnosis Type 2 diabetes mellitus with chronic kidney disease Type 2 diabetes mellitus with hypercholesterolem ia Benign hypertension with chronic kidney disease Insulin long-term use BMI 50.0-59.9, adult Morbid obesity Major depression in full remission CKD (chronic kidney disease) stage 3, GFR 30-59 ml/min Hx of Guillain-Kadoka syndrome Gait disorder History of Uterine cancer Your Care Team Attending Physician - Jose Snow MD. Primary Care Physician - Jose Snow MD [...] Prescription (Freestyle Bang 2 sensors) Misc Prescription (Atonometricsstyle Bang 2 system) Misc Prescription (Home health [...] BRIGIDA WILLOUGHBY PA-C Where: [facility] [place] Invalid Interpretation Code Type 2 diabetes mellitus with hypercholesterolemia [facility] Pre-Visit Planningon 023 Pre-Visit Planning --- From: Clifton DE LOS SANTOS, Luann To: Jose Snow MD; Sent: 09/06/2023 10:38:47 EDT Subject: Pre-Visit Planning Due Date/Time: 09/06/2023 10:38:00 EDT Caller Name: MALCOM KNOWLES; Caller Number: , Md Dr. Snow, *Based on your response below, [...] feel free to contact me at extension [phone]. Thank you! DENYS Melchor, RN, CCM, CCDS, CCDS-O Invalid Interpretation Code [address] [facility] Pre-Visit Planning --- From: Luann Lazo RN To: Kaushal JUDGE, Jose Lau; Sent: 09/06/2023 10:30:41 EDT Subject: Pre-Visit Planning Due Date/Time: 09/06/2023 10:30:00 EDT Caller Name: MALCOM KNOWLES; Caller Number: Shawn , M Hi Dr. Snow, *Based on your response below, can you please update the chronic problem list and address during this visit if appropriate?* During a pre-visit planning chart review, I noted the following documentation in the medical record indicates that this patient had a BMI of 52.32 on 07/15/2023. The National [place] of Health defines obesity as morbid if [...] feel free to contact me at extension [phone]. Thank you! DENYS Melchor, RN, CCM, CCDS, CCDS-O Invalid Interpretation Code [address] [facility] Prison Recordson 09-04 Prison Records [id number]#1.00CD:[address] [facility] Prison Recordson 09-03 Prison Records [id number]#1.00CD:[address] [facility] Prison Recordson 09-02 Prison Records [id number]#1.00CD:[address] [facility] Family Medicine Office/Clini c Noteon 08-23-2023 [...] basaglar to 12 untis. will refer to caseworker protective services. daughter will call with where she wants [...] and treat better fitting wheel chair, Supply [facility] [place] Ambulatory Referral 2. BMI 50.0-59.9, adult (Z68.43: Body mass index [BMI] 50.0-59.9, adult) BMI education complete Ordered: [facility] [place] Ambulatory Referral 3. Non-smoker (Z78.9: Other specified health status) continue not smoking Ordered: 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 [place] Ambulatory Referral Follow-up No qualifying data [...] Immunizations Vaccine Date Status Comments SARS-CoV-2 (COVID-19) mRNAMUL.ORD![id number] 09/13/2022 R (more content not included)... Normal [facility] Comment on above: Result Comment: Elec tronically Signed By: Mariangel Peña\.br\Date and Time Signed: 08/23/23 09:36 EDT Prison Recordson 08-21 Prison Records [id number]#1.00CD:127 [facility] Prison Recordson 08-20 Prison Records [id number]#1.00CD:127 [facility] Prison Recordson 08-15 Prison Records [id number]#1.00CD:127 [facility] Retail - Clinical Noteon Retail - Clinical Note [id number]#1.00CD:[address] [facility] Urine Cultureon 07-28-2023 Bacteria identified Cx Nom (U) <9,000 colonies/ml mixed bacterial skin contaminants 2 Days PERFORMED BY: [address] [address] PATHOLOGIST HEEL COVER SPLITTER SUZY FLORES M.D. [facility] Comment on above: Performed By: #### C UU #### [address] [address] [facility] Physician Referralon 023 Physician Referral [id number]#1.00CD:[address] [facility] Prison Recordson 07-23 Prison Records [id number]#1.00CD:[address] [facility] Prison Recordson 07-18 Prison Records [id number]#1.00CD:[address] [facility] Prison Records [id number]#1.00CD:[address] [facility] Retail - Clinical Noteon Retail - Clinical Note [id number]#1.00CD:127 [facility] Prison Recordson 07-16 Prison Records [id number]#1.00CD:[address] [facility] Physician Referralon 023 Physician Referral [id number]#1.00CD:[address] [facility] Retail - Clinical Noteon Retail - Clinical Note [id number]#1.00CD:127 [facility] Ambulatory Visit Summaryon 0 07-15-2023 Ambulatory Visit Summary MALCOM KNOWLES :1955 Visit Date:07/15/2023 Ambulatory Visit Instructions Your Diagnosis Insulin dependent type 2 diabetes mellitus BMI 50.0-59.9, adult Non-smoker [facility] (current) use of insulin Your Care Team [...] PM EDT With: Jose Snow MD Where: [facility] Normal [address] [place] [address]- \.br\ Medications\.br\ What How Much When Why [...] mellitus\.br\ Obesity\.br\ UTI (urinary tract infection)\.br\ \.br\ [facility] Patient Correspondenceon Patient Correspondence [id number]#1.00CD:[address] [facility] XR shoulder LT min 2V*on XR shoulder LT min 2V* [facility] [place] [address] [place] [address] XRay Report Signed Patient: Malcom Knowles MR#: [id number] : 1955 Acct:[id number] Age/Sex: 67 / F ADM Date: 07/01/23 Loc: [facility] Room: Type: [facility] Attending Dr: Lizandro Martins MD [...] Aj Baker M.D.07/01/2023 2:36 PM Dictation Location: [place] [address] Transcribed By: [facility] 07/01/23 1436 Dictated By: Aj Baker II, MD 07/01/23 1434 Signed By: 07/01/23 1436 Normal [facility] XR shoulder LT min 2V* [facility] [employer] Other XR shoulder LT min 2V* [facility] [employer] Other XR shoulder LT min 2V* [address] [place] [address] [employer] Other XR shoulder LT min 2V* [place] [address] [employer] Other XR shoulder LT min 2V* XRay Report [employer] Other XR shoulder LT min 2V* Signed [employer] Other XR shoulder LT min 2V* Patient: Malcom Knowles MR#: [id number] [employer] Other XR shoulder LT min 2V* [id number] [employer] Other XR shoulder LT min 2V* : 1955 Acct:[id number] [employer] Other XR shoulder LT min 2V* Age/Sex: 67 / F ADM Date: 07/01/23 [employer] Other XR shoulder LT min 2V* Loc: [facility] Room: Type: [facility] [employer] Other XR shoulder LT min 2V* Attending Dr: Lizandro Martins MD [employer] Other XR shoulder LT min 2V* Copies to: Lizandro Martins MD [employer] Other XR shoulder LT min 2V* Ordering Provider: Lizandro Martins MD [employer] Other XR shoulder LT min 2V* Date of Service: 07/01/23 [employer] Other XR shoulder LT min 2V* XR/XR shoulder LT min 2V*: Acute pain of left shoulder [employer] Other XR shoulder LT min 2V* XR shoulder LT min 2V* 07/01/2023 11:10 AM [employer] Other XR shoulder LT min 2V* SIGNS AND SYMPTOMS: Left shoulder pain with decreased range of motion [employer] Other XR shoulder LT min 2V* PROTOCOL: Frontal, Grashey, scapular Y views of the left shoulder [employer] Other XR shoulder LT min 2V* COMPARISON: None [employer] Other XR shoulder LT min 2V* FINDINGS: [employer] Other XR shoulder LT min 2V* There is mild hypertrophy of the acromioclavicular joint. There is narrowing of the glenohumeral [employer] Other XR shoulder LT min 2V* joint. There is no fracture or dislocation. The visualized left hemithorax is grossly intact. [employer] Other XR shoulder LT min 2V* XR/XR shoulder LT min 2V* [employer] Other XR shoulder LT min 2V* IMPRESSION: [employer] Other XR shoulder LT min 2V* No fracture or dislocation. [employer] Other XR shoulder LT min 2V* Degenerative changes are noted in the left shoulder, as above. [employer] Other XR shoulder LT min 2V* Impression dictated by: Aj Baker M.D.07/01/2023 2:36 PM [employer] Other XR shoulder LT min 2V* Dictation Location: [place] [address] [employer] Other XR shoulder LT min 2V* Transcribed By: FLORES 07/01/23 [facility] [employer] Other XR shoulder LT min 2V* Dictated By: Aj Baker II, MD 07/01/23 [facility] [employer] Other XR shoulder LT min 2V* Signed By: [employer] Other XR shoulder LT min 2V* 07/01/23 [facility] [employer] Other Prison Recordson 05-23 Prison Records [id number]#1.00CD:127 [facility] Prison Recordson 05-22 Prison Records [id number]#1.00CD:127 [facility] Comment on above: Other Comment: PRINT ED FOR PROVIDER SIGNATURE.NDW C Urineon 05-18-2023 Bacteria identified Cx Nom (U) Microbiology PROCEDURE: Urine Culture [R1] SOURCE: U CleanCatch BODY SITE: COLLECTED DATE/TIME: 05/16/2023 15:19 EDT RECEIVED DATE/TIME: 05/16/2023 17:37 EDT START DATE/TIME: 05/16/2023 17:38 EDT FREE TEXT SOURCE: Adrian HOCKEY INSTRUCTOR, Mariangel L Adrian HOCKEY INSTRUCTOR, Mariangel L FINAL REPORTS Final Report [] Verified Date/Time: 05/18/2023 08:48 EDT 5,000 cfu/ml Mixed skin contaminants Performing Locations R1: This test was performed at: [employer] [facility], [address] [place] [address], [facility]- , , [facility] Comment on above: Performed By: #### 2 [id number] ####[facility] [address] [place] [address] Prison Recordson 05-17 Prison Records [id number]#1.00CD:127 [facility] Ambulatory Visit Summaryon 0 05-16-2023 Ambulatory [...] tract infection) Duration: 7 Days Pickup at [facility] [place] Unchanged fluconazole (Diflucan 150 mg Tab) 1 Tablets By Mouth Once UTI (urinary tract infection) Unchanged Misc Prescription (Misc DME Prescription) See instructions BD ultra fine pen needles 31G X 3/ 16. Use to inject insulin as directed. Dx E10.42 Pharmacy Information [facility] [place]: [address] [place] [address] [phone] Allergies sulfa drugs (Unknown) Problems Ongoing - Any problem that you are currently receiving treatment for. UTI (urinary tract infection) Normal [facility] Family Medicine Office/Clini c Noteon 05-16-2023 Family Medicine Office/Clinic Note Chief Complaint pt here to establish care, UTI symptoms HPI Staff Malcom is a 67 year old female presenting to Establish care Establish Care: History: Any previous diagnosis: Diabetes, HTN, Frequent falls, gerd, depression, syncope History of seeing any specialist: Dr Loredo Neurologist in [place], Dr Alegria , Cardiolgoy , Urolgosit When [...] She lives in an assisted living at [facility]. They dipped her urine. see results above. [...] day(s), # 14 tab(s), Refills(s) 0, Pharmacy: [facility] [place], 158, cm, 05/16/23 14:43:00 EDT, [...] Immunizations Vaccine Date Status Comments SARS-CoV-2 (COVID-19) mRNAMUL.ORD![id number] 09/13/2022 Recorded SARS-CoV-2 (COVID-19) mRNA-1273 vaccine 01/13/2022 Recorded 2023-05-16: [id number] SARS-CoV-2 (COVID-19) mRNA-1273 vaccine 08/09/2021 Recorded SARS-CoV-2 (COVID-19) mRNA-1273 vaccine 07/12/2021 Recorded pneumococcal 13-valent vaccine 10/18/2016 Recorded Normal [facility] Comment on above: Result Comment: Elec tronically Signed By: Mariangel Peña\.br\Date and Time Signed: 05/16/23 15:28 EDT ECHOCARDIO M/2D COMPLETEon 0 05-01-2023 ECHOCARDIO M/2D COMPLETE Patient: MALOCM KNOWLES Exam Date: 05/01/2023 : 1955 Gender:F Ordering : DR. AJ YOUNG M.D. Admission #: [id number] Family : Order #: [id number] CLICK HERE TO VIEW EXAM ECHOCARDIOGRAM REPORT [...] Franco M.D. on 05/01/2023 at 18:18 Normal [facility] Lab Reportson 04-24-2023 Lab Reports [id number]#1.00CD:[address] [facility] Lab Reportson 04-17-2023 Lab Reports [id number] [facility]#1.00CD:127 Normal [facility] Office Visit (Cardiology)on 04-04-2023 Follow-up visit Diagnoses/Problems Assessed 2-vessel coronary artery disease (414.00) (I25.10) Chest pain (786.50) (R07.9) Diabetes mellitus (250.00) (E11.9) Essential hypertension (401.9) (I10) H/O non-ST elevation myocardial infarction (NSTEMI) (412) (I25.2) Hyperlipidemia (272.4) (E78.5) Morbid obesity with BMI of 50.0-59.9, adult (278.01,V85.43) (E66.01,Z68.43) Never a smoker Post PTCA (V45.82) (Z98.61) [facility] resident (V60.6) (Z59.3) Orders 2-vessel coronary artery disease Stop: Aspirin EC 81 MG TBEC Morbid obesity with BMI of 50.0-59.9, adult Healthy Weight Tips; Status:Complete - Retrospective Authorization; Done: [id number] Some eating tips that can help you lose weight.; Status:Complete - Retrospective Authorization; Done: [id number] SocHx: Never a smoker Tobacco Use Screening; Status:Complete; Done: [id number] Patient Instructions Please bring all medicines, vitamins, [...] 12:01:30 PM (more content not included)... Normal [employer] Tobacco Screening.on 023 Adult depression screening assessment No [facility] [employer] DO Work Phone: Fall risk assessment b) One or more falls in the last year [facility] [employer] DO Work Phone: Tobacco use status CPHS b) No [facility] [employer] DO Work Phone: Lab Reportson 04-01-2023 Lab Reports [id number]#1.00CD:[address] [facility] Prison Recordson 03-20 Prison Records [id number]#1.00CD:[address] [facility] CT CSPINE WO CONon 3 CT [...] THONY JOHNSTON Date: 2023-01-24 19:08 Normal [facility] CT HEAD WO CONon 01-24-2023 CT [...] FLORIN ZHONG Date: 2023-01-24 18:51 Normal [facility] XR SHOULDER LT 2V or >on XR SHOULDER LT 2V or > EXAM: XR SHOULDER LT 2V or > HISTORY: Unspecified fall COMPARISON: Shoulder x-rays 08/27/2022 TECHNIQUE: 3 views FINDINGS: IMPRESSION: No visualized fracture, dislocation, subluxation or osseous lesion. Moderate degenerative changes of the acromial clinically joint. Electronically authenticated by: NIALL CELIS Date: 2023-01-24 18:58 Normal [facility] MRI BRAIN WO CONon 3 [...] ADAMS RAGSDALE Date: 2023-01-18 15:07 Normal [facility] US CAROTID ART BILon 023 US [...] ADAMS RAGSDALE Date: 2023-01-18 14:45 Normal [facility] CBC AUTO DIFFon 12-26-2022 BASO # 0.1 103/ul Normal 0.0-0.1 [facility] Comment on above: Performed By: #### A CET, CMP #### [facility] [address] [place] [address] Dr. Gilberto Ocampo Basophils/100 WBC (Bld) 0.8 % Normal 0.2-2.0 [facility] Comment on above: Performed By: #### A CET, CMP #### [facility] [address] [place] [address] Dr. Gilberto Ocampo EO # 0.6 103/ul Normal 0.0-0.7 [facility] Comment on above: Performed By: #### A CET, CMP #### [facility] [address] [place] [address] Dr. Gilberto Ocampo Eosinophils/100 WBC (Bld) 7.7 % Critically high 0.9-7.0 [facility] Comment on above: Performed By: #### A CET, CMP #### [facility] [address] [place] [address] Dr. Gilberto Ocampo Erythrocyte distribution width (RBC) [Ratio] 14.0 % Normal 11.0-15.0 [facility] Comment on above: Performed By: #### A CET, CMP #### [facility] [address] [place] [address] Dr. Gilberto Ocampo Hematocrit (Bld) [Volume fraction] 39.0 % Normal 36.0-48.0 [facility] Comment on above: Performed By: #### A CET, CMP #### [facility] [address] [place] [address] Dr. Gilberto Ocampo Hemoglobin (Bld) [Mass/Vol] 11.8 g/dL Critically low 12.0-16.0 [facility] Comment on above: Performed By: #### A CET, CMP #### [facility] [address] [place] [address] Dr. Gilberto Ocampo IG # 0.02 10e3/ul Normal 0.00-0.03 [facility] Comment on above: Performed By: #### A CET, CMP #### [facility] [address] [place] [address] Dr. Gilberto Ocampo IG % 0.3 % Normal 0.0-0.5 [facility] Comment on above: Performed By: #### A CET, CMP #### [facility] [address] [address] [address] Gilberto Ocampo LYMPH # 2.1 103/ul Normal 1.2-3.8 [facility] Comment on above: Performed By: #### A CET, CMP #### [facility] [address] [address] [address] Gilberto Ocampo Lymphocytes/100 WBC (Bld) 29.2 % Normal 20.5-60.0 [facility] Comment on above: Performed By: #### A CET, CMP #### [facility] [address] [place] [address] [address] Gilberto Ocampo MANUAL DIFF REQ NO Normal [facility] Comment on above: Performed By: #### A CET, CMP #### [facility] [address] [place] [address] Dr. Gilberto Ocampo MCH (RBC) [Entitic mass] 29.2 pg Normal 26.7-34.0 [facility] Comment on above: Performed By: #### A CET, CMP #### [facility] [address] [place] [address] [address] Gilberto Ocampo MCHC (RBC) [Mass/Vol] 30.3 g/dL Normal 29.9-35.2 [facility] Comment on above: Performed By: #### A CET, CMP #### [facility] [address] [address] [address] Gilberto Ocampo MCV (RBC) [Entitic vol] 96.5 fL Normal 81.0-99.0 [facility] Comment on above: Performed By: #### A CET, CMP #### [facility] [address] [address] [address] Gilberto Ocampo MONO # 0.6 103/ul Normal 0.3-0.8 [facility] Comment on above: Performed By: #### A CET, CMP #### [facility] [address] [address] [address] Gilberto Ocampo Monocytes/100 WBC (Bld) 9.0 % Normal 1.7-12.0 [facility] Comment on above: Performed By: #### A CET, CMP #### [facility] [address] [place] [address] Dr. Gilberto Ocampo NEUT # 3.8 103/ul Normal 1.4-6.5 [facility] Comment on above: Performed By: #### A CET, CMP #### [facility] [address] [place] [address] Dr. Gilberto Ocampo Neutrophils/100 WBC (Bld) 53.0 % Normal 43.0-75.0 [facility] Comment on above: Performed By: #### A CET, CMP #### [facility] [address] [place] [address] Dr. Gilberto Ocampo Platelet mean volume (Bld) [Entitic vol] 11.9 fL Normal 9.5-13.5 [facility] Comment on above: Performed By: #### A CET, CMP #### [facility] [address] [place] [address] Dr. Gilberto Ocampo PLT 209 103/ul Normal 150-450 [facility] Comment on above: Performed By: #### A CET, CMP #### [facility] [address] [place] [address] Dr. Gilberto Ocampo RBC 4.04 106/ul Critically low 4.20-5.40 [facility] Comment on above: Performed By: #### A CET, CMP #### [facility] [address] [place] [address] Dr. Gilberto Ocampo WBC 7.1 103/ul Normal 4.0-11.0 [facility] Comment on above: Performed By: #### A CET, CMP #### [facility] [address] [place] [address] Dr. Gilberto Ocampo GLYCOHEMOGLOBIN A1Con 2022 ADA RECOMMENDATION SEE BELOW Normal [facility] Comment on above: Result Comment: ADA RECOMMENDED LIMIT 4.0 - 6.0 ADA THERAPEUTIC TARGET < 7.0 ACTION SUGGESTED > 7.0 Performed By: #### A 1C #### [facility] [address] [place] [address] Dr. Gilberto Ocampo Glucose [Mass/Vol] 189 mg/dL Normal [facility] Comment on above: Performed By: #### A 1C #### [facility] [address] [place] [address] Dr. Gilberto Ocapmo HbA1c (Bld) [Mass fraction] 8.2 % Critically high 4.5-6.2 [facility] Comment on above: Performed By: #### A 1C #### [facility] [address] [place] [address] Dr. Gilberto Ocampo PROF 14(COMP METB)on 023 Albumin [Mass/Vol] 3.0 g/dL Critically low 3.4-5.0 [facility] Comment on above: Performed By: #### C MP #### [facility] [address] [place] [address] Dr. Gilberto Ocampo Albumin/Globulin [Mass ratio] 0.8 {ratio} Normal [facility] Comment on above: Performed By: #### C MP #### [facility] [address] [place] [address] Dr. Gilberto Ocampo ALP [Catalytic activity/Vol] 89 U/L Normal 46-116 [facility] Comment on above: Performed By: #### C MP #### [facility] [address] [place] [address] Dr. Gilberto Ocampo ALT [Catalytic activity/Vol] 22 U/L Normal 14-59 [facility] Comment on above: Performed By: #### C MP #### [facility] [address] [place] [address] Dr. Gilberto Ocampo Anion gap [Moles/Vol] 12.4 mmol/L Normal [facility] Comment on above: Performed By: #### C MP #### [facility] [address] [place] [address] Dr. Gilberto Ocampo AST [Catalytic activity/Vol] 19 U/L Normal 15-37 [facility] Comment on above: Performed By: #### C MP #### [facility] [address] [place] [address] Dr. Gilberto Ocampo Bilirubin [Mass/Vol] 0.6 mg/dL Normal 0.2-1.0 [facility] Comment on above: Performed By: #### C MP #### [facility] [address] [address] [address] Gilberto Ocampo Calcium [Mass/Vol] 8.9 mg/dL Normal 8.5-10.1 [facility] Comment on above: Performed By: #### C MP #### [facility] [address] [address] [address] Gilberto Ocampo Chloride [Moles/Vol] 103 mmol/L Normal 98-107 [facility] Comment on above: Performed By: #### C MP #### [facility] [address] [place] [address] Dr. Gilberto Ocampo CO2 [Moles/Vol] 28.5 mmol/L Normal 21.0-32.0 [facility] Comment on above: Performed By: #### C MP #### [facility] [address] [address] [address] Gilberto Ocampo Creatinine [Mass/Vol] 1.52 mg/dL Critically high 0.55-1.02 [facility] Comment on above: Performed By: #### C MP #### [facility] [address] [place] [address] Dr. Gilberto Ocampo EGFR-AF CHILEAN 41 mL/min/1.73m2 Critically low >=60 [facility] Comment on above: Performed By: #### C MP #### [facility] [address] [address] [address] Gilberto Ocampo EGFR-NON AF CHILEAN 34 mL/min/1.73m2 Critically low >=60 [facility] Comment on above: Performed By: #### C MP #### [facility] [address] [address] [address] Gilberto Ocampo Globulin (S) [Mass/Vol] 3.8 g/dL Normal [facility] Comment on above: Performed By: #### C MP #### [facility] [address] [address] [address] Gilberto Ocampo Glucose [Mass/Vol] 206 mg/dL Critically high 74-[address] [facility] Comment on above: Performed By: #### C MP #### [facility] [address] [address] [address] Gilberto Ocampo Potassium [Moles/Vol] 3.9 mmol/L Normal 3.5-5.1 [facility] Comment on above: Performed By: #### C MP #### [facility] [address] [address] [address] Gilberto Ocampo Protein [Mass/Vol] 6.8 g/dL Normal 6.4-8.2 [facility] Comment on above: Performed By: #### C MP #### [facility] [address] [address] [address] Gilberto Ocampo Sodium [Moles/Vol] 140 mmol/L Normal 136-145 [facility] Comment on above: Performed By: #### C MP #### [facility] [address] [address] [address] Gilberto Ocampo Urea nitrogen [Mass/Vol] 16.0 mg/dL Normal 7.0-18.0 [facility] Comment on above: Performed By: #### C MP #### [facility] [address] [place] [address] Dr. Gilberto Ocampo Urea nitrogen/Creatinin e [Mass ratio] 10.5 mg/mg Normal [facility] Comment on above: Performed By: #### C MP #### [facility] [address] [place] [address] Dr. Gilberto Ocampo CULTURE URINEon 12-17-2022 CULTURE URINE Culture Observations: NO GROWTH. Normal [facility] Comment on above: Performed By: #### A CET, CMP #### [facility] [address] [address] [address] Gilberto Ocampo UA RANDOMon 12-17-2022 Bilirubin Ql (U) Negative Normal NEGATIVE [facility] Comment on above: Performed By: #### A CET, CMP #### [facility] [address] [place] [address] Dr. Gilberto Ocampo Clarity (U) CLEAR Normal CLEAR [facility] Comment on above: Performed By: #### A CET, CMP #### [facility] [address] [place] [address] Dr. Gilberto Ocampo Color (U) YELLOW Normal YELLOW [facility] Comment on above: Performed By: #### A CET, CMP #### [facility] [address] [place] [address] Dr. Gilberto Ocampo Glucose Ql (U) 250 mg/dl Abnormal NEGATIVE [facility] Comment on above: Performed By: #### A CET, CMP #### [facility] [address] [place] [address] Dr. Gilberto Ocampo Hemoglobin Ql (U) TRACE-INTACT Abnormal NEGATIVE [facility] Comment on above: Performed By: #### A CET, CMP #### [facility] [address] [place] [address] Dr. Gilberto Ocampo Ketones Ql (U) TRACE Abnormal NEGATIVE [facility] Comment on above: Performed By: #### A CET, CMP #### [facility] [address] [place] [address] Dr. Gilberto Ocampo LEUKOCYTES Negative Normal NEGATIVE [facility] Comment on above: Performed By: #### A CET, CMP #### [facility] [address] [place] [address] Dr. Gilberto Ocampo Nitrite Ql (U) Negative Normal NEGATIVE [facility] Comment on above: Performed By: #### A CET, CMP #### [facility] [address] [place] [address] Dr. Gilberto Ocampo pH (U) 5.0 [pH] Normal 5-9 [facility] Comment on above: Performed By: #### A CET, CMP #### [facility] [address] [place] [address] Dr. Gilberto Ocampo SPEC GRAVITY >=1.030 Abnormal 1.005-<=1.025 [facility] Comment on above: Performed By: #### A CET, CMP #### [facility] [address] [place] [address] Dr. Gilberto Ocampo UA PROTEIN TRACE Normal NEGATIVE/ TRACE [facility] Comment on above: Performed By: #### A CET, CMP #### [facility] [address] [place], [place] [address] Dr. Gilberto Ocampo Urobilinogen Qn (U) 0.2 {Torres'U}/dL Normal 0.2 - 1.0 [facility] Comment on above: Performed By: #### A CET, CMP #### [facility] [address] [place], [place] [address] Dr. Gilberto Ocampo XR HUMERUS RT MIN [...] by: THONY CLARK Date: 2022-11-17 02:30 Normal [facility] XR SHOULDER RT 2V or [...] by: THONY CLARK Date: 2022-11-17 03:30 Normal [facility] CULTURE URINEon 11-12-2022 CULTURE URINE [...] F Trimethoprim/Sulfa methoxazole <=20 S F Normal [facility] Comment on above: Performed By: #### A CET, CMP #### [facility] [address] [place] [address] Dr. Gilberto Ocampo CULTURE URINEon 11-11-2022 CULTURE [...] Trimethoprim/Sulfa methoxazole <=20 S F Normal [facility] Comment on above: Performed By: #### A CET, CMP #### [facility] [address] [place] [address] Dr. Gilberto Ocampo ACETAMINOPHENon 11-09-2022 Acetaminophen [Mass/Vol] ug/mL Critically low 10.0-30.0 [facility] Comment on above: Performed By: #### A CET, CMP #### [facility] [address] [place] [address] Dr. Gilberto Ocampo CBC AUTO DIFFon 11-09-2022 BASO # 0.0 103/ul Normal 0.0-0.1 [facility] Comment on above: Performed By: #### C BC #### [facility] [address] [place] [address] Dr. Gilberto Ocampo Basophils/100 WBC (Bld) 0.5 % Normal 0.2-2.0 [facility] Comment on above: Performed By: #### C BC #### [facility] [address] [place] [address] Dr. Gilberto Ocampo EO # 0.4 103/ul Normal 0.0-0.7 [facility] Comment on above: Performed By: #### C BC #### [facility] [address] [place] [address] Dr. Gilberto Ocampo Eosinophils/100 WBC (Bld) 6.4 % Normal 0.9-7.0 [facility] Comment on above: Performed By: #### C BC #### [facility] [address] [place] [address] Dr. Gilberto Ocampo Erythrocyte distribution width (RBC) [Ratio] 13.7 % Normal 11.0-15.0 [facility] Comment on above: Performed By: #### C BC #### [facility] [address] [place] [address] Dr. Gilberto Ocampo Hematocrit (Bld) [Volume fraction] 38.1 % Normal 36.0-48.0 [facility] Comment on above: Performed By: #### C BC #### [facility] [address] [place] [address] Dr. Gilberto Ocampo Hemoglobin (Bld) [Mass/Vol] 12.2 g/dL Normal 12.0-16.0 [facility] Comment on above: Performed By: #### C BC #### [facility] [address] [place] [address] Dr. Gilberto Ocampo IG # 0.02 10e3/ul Normal 0.00-0.03 [facility] Comment on above: Performed By: #### C BC #### [facility] [address] [place] [address] Dr. Gilberto Ocampo IG % 0.3 % Normal 0.0-0.5 [facility] Comment on above: Performed By: #### C BC #### [facility] [address] [place] [address] Dr. Gilberto Ocampo LYMPH # 2.1 103/ul Normal 1.2-3.8 [facility] Comment on above: Performed By: #### C BC #### [facility] [address] [place] [address] Dr. Gilberto Ocampo Lymphocytes/100 WBC (Bld) 33.1 % Normal 20.5-60.0 [facility] Comment on above: Performed By: #### C BC #### [facility] [address] [place] [address] Dr. Gilberto Ocampo MANUAL DIFF REQ NO Normal [facility] Comment on above: Performed By: #### C BC #### [facility] [address] [place] [address] Dr. Gilberto Ocampo MCH (RBC) [Entitic mass] 29.6 pg Normal 26.7-34.0 [facility] Comment on above: Performed By: #### C BC #### [facility] [address] [place] [address] Dr. Gilberto Ocampo MCHC (RBC) [Mass/Vol] 32.0 g/dL Normal 29.9-35.2 [facility] Comment on above: Performed By: #### C BC #### [facility] [address] [place] [address] Dr. Gilberto Ocampo MCV (RBC) [Entitic vol] 92.5 fL Normal 81.0-99.0 [facility] Comment on above: Performed By: #### C BC #### [facility] [address] [place] [address] Dr. Gilberto Ocampo MONO # 0.7 103/ul Normal 0.3-0.8 [facility] Comment on above: Performed By: #### C BC #### [facility] [address] [place] [address] Dr. Gilberto Ocampo Monocytes/100 WBC (Bld) 11.6 % Normal 1.7-12.0 [facility] Comment on above: Performed By: #### C BC #### [facility] [address] [place] [address] Dr. Gilberto Ocampo NEUT # 3.0 103/ul Normal 1.4-6.5 [facility] Comment on above: Performed By: #### C BC #### [facility] [address] [place] [address] Dr. Gilberto Ocampo Neutrophils/100 WBC (Bld) 48.1 % Normal 43.0-75.0 [facility] Comment on above: Performed By: #### C BC #### [facility] [address] [address] [address] Gilberto Ocampo Platelet mean volume (Bld) [Entitic vol] 10.8 fL Normal 9.5-13.5 [facility] Comment on above: Performed By: #### C BC #### [facility] [address] [address] [address] Gilberto Ocampo PLT 212 103/ul Normal 150-450 [facility] Comment on above: Performed By: #### C BC #### [facility] [address] [address] [address] Gilberto Ocampo RBC 4.12 106/ul Critically low 4.20-5.40 [facility] Comment on above: Performed By: #### C BC #### [facility] [address] [address] [address] Gilberto Ocampo WBC 6.3 103/ul Normal 4.0-11.0 [facility] Comment on above: Performed By: #### C BC #### [facility] [address] [place] [address] Dr. Gilberto Ocampo DRUG SCREEN RAPID (URINE)on 11-09-2022 AMP Negative Normal NEGATIVE [facility] Comment on above: Performed By: #### U ACSWALI ICRO #### [facility] [address] [place] [address] Dr. Gilberto Ocampo BAR Negative Normal NEGATIVE [facility] Comment on above: Performed By: #### U ACSWALI UMICRO #### [facility] [address] [place] [address] Dr. Gilberto Ocampo BUP Negative Normal NEGATIVE [facility] Comment on above: Performed By: #### U ACSWALI UMICRO #### [facility] [address] [place] [address] Dr. Gilberto Ocampo BZO Negative Normal NEGATIVE [facility] Comment on above: Performed By: #### U ACSWALI UMICRO #### [facility] [address] [place] [address] Dr. Gilberto Ocampo CARLIE Negative Normal NEGATIVE [facility] Comment on above: Performed By: #### U ACSWALI UMICRO #### [facility] [address] [place] [address] Dr. Gilberto Ocampo CUT-OFFS SEE BELOW Normal [facility] Comment on above: Result Comment: AMP (Amphetamine): 500ng/mL, BAR (Barbituates): 200 ng/mL, BZO (Benzodiazepines): 150 ng/mL, BUP (Buprenorphine): 10 ng/mL, CARLIE (Cocaine): 150 ng/mL, mAMP (Methamphetamine): 500 ng/mL, MTD (Methadone): 200 ng/mL, OPI (Opiates): 100 ng/mL, OXY (Oxycodone): 100 ng/mL, PCP (Phencyclidine): 25 ng/mL, PPX (Propoxyphene): 300 ng/mL, THC (Cannabinoids): 50 ng/mL, TCA (Trycyclic Antidepressants): 300 ng/mL Performed By: #### U ACSWALI UMICRO #### [facility] [address] [place] [address] Dr. Gilberto Ocampo DRUG CUT HEADER DRUG CLASS TEST SYSTEM CUT-OFF CONCENTRATIONS ARE FOLLOWS: Normal [facility] Comment on above: Performed By: #### U ACSWALI UMICRO #### [facility] [address] [place] [address] Dr. Gilberto Ocampo mAMP Negative Normal NEGATIVE [facility] Comment on above: Performed By: #### U ACSWALI UMICRO #### [facility] [address] [place] [address] Dr. Gilberto Ocampo MTD Negative Normal NEGATIVE [facility] Comment on above: Performed By: #### U ACSWALI UMICRO #### [facility] [address] [place] [address] Dr. Gilberto Ocampo OPI Negative Normal NEGATIVE [facility] Comment on above: Performed By: #### U ACSWALI UMICRO #### [facility] [address] [place] [address] Dr. Gilberto Ocampo OXY Negative Normal NEGATIVE [facility] Comment on above: Performed By: #### U ACSWALI UMICRO #### [facility] [address] [place] [address] Dr. Gilberto Ocampo PCP Negative Normal NEGATIVE [facility] Comment on above: Performed By: #### U ACSIND, UMICRO #### [facility] [address] [address] [address] Gilberto Ocampo PPX Negative Normal NEGATIVE [facility] Comment on above: Performed By: #### U ACSIND, UMICRO #### [facility] [address] [place] [address] Dr. Gilberto Ocampo TCA Negative Normal NEGATIVE [facility] Comment on above: Performed By: #### U ACSIND, UMICRO #### [facility] [address] [place] [address] Dr. Gilberto Ocampo THC Negative Normal NEGATIVE [facility] Comment on above: Performed By: #### U ACSIND, UMICRO #### [facility] [address] [place] [address] Dr. Gilberto Ocampo ER URINE PROFILEon 2 Clarity (U) CLOUDY Abnormal CLEAR [facility] Comment on above: Performed By: #### U ACSIND, UMICRO #### [facility] [address] [place] [address] Dr. Gilberto Ocampo ERUAHEvelyne A micrscopic examination will be performed if indicated. Normal [facility] Comment on above: Performed By: #### U ACSIND, UMICRO #### [facility] [address] [place] [address] Dr. Gilberto Ocampo pH (U) 6.0 [pH] Normal 5-9 [facility] Comment on above: Performed By: #### U ACSIND, UMICRO #### [facility] [address] [place] [address] Dr. Gilberto Ocampo Protein (U) [Mass/Vol] 30 mg/dL Abnormal NEGATIVE/ TRACE [facility] Comment on above: Performed By: #### U ACSIND, UMICRO #### [facility] [address] [place] [address] Dr. Gilberto Ocampo ETHANOL (BLD ALC)on 11-09-20 22 ALC NOTE NOTE: 80 mg/dl is the legal limit for a blood alcohol level Normal [facility] Comment on above: Performed By: #### E TH #### [facility] [address] [place] [address] Dr. Gilberto Ocampo Ethanol [Mass/Vol] mg/dL Normal [facility] Comment on above: Performed By: #### E TH #### [facility] [address] [place] [address] Dr. Gilberto Ocampo GLYCOHEMOGLOBIN A1Con 2021 ADA RECOMMENDATION SEE BELOW Normal [facility] Comment on above: Result Comment: ADA RECOMMENDED LIMIT 4.0 - 6.0 ADA THERAPEUTIC TARGET < 7.0 ACTION SUGGESTED > 7.0 Performed By: #### U ACSIND, UMICRO #### [facility] [address] [place] [address] Dr. Gilberto Ocampo Glucose [Mass/Vol] 177 mg/dL Normal [facility] Comment on above: Performed By: #### U ACSIND, UMICRO #### [facility] [address] [place] [address] Dr. Gilberto Ocampo HbA1c (Bld) [Mass fraction] 7.8 % Critically high 4.5-6.2 [facility] Comment on above: Performed By: #### U ACSIND, UMICRO #### [facility] [address] [place] [address] Dr. Gilberto Ocampo LIPID PROFILEon 11-09-2022 CHOL-HDL RATIO NORM SEE BELOW Normal [facility] Comment on above: Result Comment: 3.3 - 4.4 LOW RISK 4.4 - 7.1 AVERAGE RISK 7.1 - 11.0 MODERATE RISK >11.0 HIGH RISK Performed By: #### L IPID #### [facility] [address] [place] [address] Dr. Gilberto Ocampo Cholesterol [Mass/Vol] 111 mg/dL Normal <=200 [facility] Comment on above: Performed By: #### L IPID #### [facility] [address] [place] [address] Dr. Gilberto Ocampo Cholesterol in HDL [Mass/Vol] 64 mg/dL Critically high 40-60 [facility] Comment on above: Performed By: #### L IPID #### [facility] [address] [place] [address] Dr. Gilberto Ocampo Cholesterol in LDL [Mass/Vol] 28.6 mg/dL Normal [facility] Comment on above: Performed By: #### L IPID #### [facility] [address] [address] [address] Gilberto Ocampo Cholesterol.total/ Cholesterol in HDL [Mass ratio] 1.7 {ratio} Normal [facility] Comment on above: Performed By: #### L IPID #### [facility] [address] [place] [address] Dr. Gilberto Ocampo HDL NORMAL > or = 60 mg/dl - LOW CARDIOVASCULAR RISK <40 mg/dl - HIGH CARDIOVASCULAR RISK Normal [facility] Comment on above: Performed By: #### L IPID #### [facility] [address] [place] [address] Dr. Gilberto Ocampo LDL CALC NORMAL SEE BELOW Normal [facility] Comment on above: Result Comment: <100 mg/dl OPTIMAL 100 - 129 mg/dl NEAR OR ABOVE OPTIMAL 130 - 159 mg/dl BORDERLINE HIGH 160 - 189 mg/dl HIGH >190 mg/dl VERY HIGH Performed By: #### L IPID #### [facility] [address] [place] [address] Dr. Gilberto Ocampo Triglyceride [Mass/Vol] 92 mg/dL Normal <=150 [facility] Comment on above: Performed By: #### L IPID #### [facility] [address] [place] [address] Dr. Gilberto Ocampo VLDL CALC 18.4 mg/dL Normal [facility] Comment on above: Performed By: #### L IPID #### [facility] [address] [place] [address] Dr. Gilberto Ocampo PROF 14(COMP METB)on 022 Albumin [Mass/Vol] 3.5 g/dL Normal 3.4-5.0 [facility] Comment on above: Performed By: #### A CET, CMP #### [facility] [address] [address] [address] Gilberto Ocampo Albumin/Globulin [Mass ratio] 0.9 {ratio} Normal [facility] Comment on above: Performed By: #### A CET, CMP #### [facility] [address] [address] [address] Gilberto Ocampo ALP [Catalytic activity/Vol] 87 U/L Normal 46-116 [facility] Comment on above: Performed By: #### A CET, CMP #### [facility] [address] [address] [address] Gilberto Ocampo ALT [Catalytic activity/Vol] 23 U/L Normal 14-59 [facility] Comment on above: Performed By: #### A CET, CMP #### [facility] [address] [place] [address] Dr. Gilberto Ocampo Anion gap [Moles/Vol] 9.3 mmol/L Normal [facility] Comment on above: Performed By: #### A CET, CMP #### [facility] [address] [place] [address] Dr. Gilberto Ocampo AST [Catalytic activity/Vol] 24 U/L Normal 15-37 [facility] Comment on above: Performed By: #### A CET, CMP #### [facility] [address] [place] [address] Dr. Gilberto Ocampo Bilirubin [Mass/Vol] 1.0 mg/dL Normal 0.2-1.0 [facility] Comment on above: Performed By: #### A CET, CMP #### [facility] [address] [address] [address] Gilberto Ocampo Calcium [Mass/Vol] 8.7 mg/dL Normal 8.5-10.1 [facility] Comment on above: Performed By: #### A CET, CMP #### [facility] [address] [place] [address] Dr. Gilberto Ocampo Chloride [Moles/Vol] 102 mmol/L Normal 98-107 [facility] Comment on above: Performed By: #### A CET, CMP #### [facility] [address] [address] [address] Gilberto Ocampo CO2 [Moles/Vol] 32.4 mmol/L Critically high 21.0-32.0 [facility] Comment on above: Performed By: #### A CET, CMP #### [facility] [address] [address] [address] Gilberto Ocampo Creatinine [Mass/Vol] 1.58 mg/dL Critically high 0.55-1.02 [facility] Comment on above: Performed By: #### A CET, CMP #### [facility] [address] [address] [address] Gilberto Ocampo EGFR-AF CHILEAN 39 mL/min/1.73m2 Critically low >=60 [facility] Comment on above: Performed By: #### A CET, CMP #### [facility] [address] [place] [address] Dr. Gilberto Ocampo EGFR-NON AF CHILEAN 32 mL/min/1.73m2 Critically low >=60 [facility] Comment on above: Performed By: #### A CET, CMP #### [facility] [address] [address] [address] Gilberto Ocampo Globulin (S) [Mass/Vol] 3.7 g/dL Normal [facility] Comment on above: Performed By: #### A CET, CMP #### [facility] [address] [address] [address] Gilberto Ocampo Glucose [Mass/Vol] 272 mg/dL Critically high 74-[address] [facility] Comment on above: Performed By: #### A CET, CMP #### [facility] [address] [address] [address] Gilberto Ocampo Potassium [Moles/Vol] 3.7 mmol/L Normal 3.5-5.1 [facility] Comment on above: Performed By: #### A CET, CMP #### [facility] [address] [address] [address] Gilberto Ocampo Protein [Mass/Vol] 7.2 g/dL Normal 6.4-8.2 [facility] Comment on above: Performed By: #### A CET, CMP #### [facility] [address] [address] [address] Gilberto Ocampo Sodium [Moles/Vol] 140 mmol/L Normal 136-145 [facility] Comment on above: Performed By: #### A CET, CMP #### [facility] [address] [place] [address] Dr. Gilberto Ocampo Urea nitrogen [Mass/Vol] 20.0 mg/dL Critically high 7.0-18.0 [facility] Comment on above: Performed By: #### A CET, CMP #### [facility] [address] [address] [address] Gilberto Ocampo Urea nitrogen/Creatinin e [Mass ratio] 12.7 mg/mg Normal [facility] Comment on above: Performed By: #### A CET, CMP #### [facility] [address] [place] [address] Dr. Gilberto Ocampo UA (CLEAN/CATCH) MANAGER CAFE/MICRO I F IND.on 11-09-2022 Bilirubin Ql (U) Negative Normal NEGATIVE [facility] Comment on above: Performed By: #### U ACSIND, ICRO #### [facility] [address] [place] [address] Dr. Gilberto Ocampo Clarity (U) CLEAR Normal CLEAR [facility] Comment on above: Performed By: #### U ACSIND, UMICRO #### [facility] [address] [place] [address] Dr. Gilberto Ocampo Color (U) LT. YELLOW Normal YELLOW [facility] Comment on above: Performed By: #### U ACSIND, UMICRO #### [facility] [address] [address] [address] Gilberto Ocampo Glucose Ql (U) Negative Normal NEGATIVE [facility] Comment on above: Performed By: #### U ACSIND, UMICRO #### [facility] [address] [place] [address] Dr. Gilberto Ocampo Hemoglobin Ql (U) LARGE Abnormal NEGATIVE [facility] Comment on above: Performed By: #### U ACSIND, UMICRO #### [facility] [address] [place] [address] Dr. Gilberto Ocampo Ketones Ql (U) TRACE Abnormal NEGATIVE [facility] Comment on above: Performed By: #### U ACSIND, UMICRO #### [facility] [address] [address] [address] Gilberto Ocampo LEUKOCYTES MODERATE Abnormal NEGATIVE [facility] Comment on above: Performed By: #### U ACSIND, UMICRO #### [facility] [address] [place] [address] Dr. Gilberto Ocampo Nitrite Ql (U) Positive Abnormal NEGATIVE [facility] Comment on above: Performed By: #### U ACSWALI UMICRO #### [facility] [address] [place] [address] Dr. Gilberto Ocampo pH (U) 5.5 [pH] Normal 5-9 [facility] Comment on above: Performed By: #### U ACSWALI UMICRO #### [facility] [address] [place] [address] Dr. Gilberto Ocampo SPEC GRAVITY 1.025 Normal 1.005-<=1.025 [facility] Comment on above: Performed By: #### U ACSWALI UMICRO #### [facility] [address] [place] [address] Dr. Gilberto Ocampo UA PROTEIN 30 mg/dl Abnormal NEGATIVE/ TRACE [facility] Comment on above: Performed By: #### U ACSWALI UMICRO #### [facility] [address] [place] [address] Dr. Gilberto Ocampo UR MICRO IND INDICATED Normal [facility] Comment on above: Performed By: #### U ACSWALI UMICRO #### [facility] [address] [place] [address] Dr. Gilberto Ocampo Urobilinogen Qn (U) 0.2 {Torres'U}/dL Normal 0.2 - 1.0 [facility] Comment on above: Performed By: #### U ACSIND, UMICRO #### [facility] [address] [place] [address] Dr. Gilberto Ocampo URINE MICROSCOPIC ONLYon BACTERIA SMALL Abnormal NONE SEEN [facility] Comment on above: Performed By: #### U ACSIND, UMICRO #### [facility] [address] [address] [address] Gilberto Ocampo BACTERIA MODERATE Abnormal NONE SEEN [facility] Comment on above: Performed By: #### U ACSIND, UMICRO #### [facility] [address] [address] [address] Gilberto Ocampo Bacteria identified Cx Nom (U) INDICATED Normal [facility] Comment on above: Performed By: #### U ACSIND, UMICRO #### [facility] [address] [place] [address] Dr. Gilberto Ocampo CAST NONE SEEN Normal NONE SEEN [facility] Comment on above: Performed By: #### U ACSIND, UMICRO #### [facility] [address] [place] [address] Dr. Gilberto Ocampo Crystals LM Nom (Urine sed) NONE SEEN Normal NONE SEEN [facility] Comment on above: Performed By: #### U ACSIND, UMICRO #### [facility] [address] [place] [address] Dr. Gilberto Ocampo Epithelial cells LM Ql (Urine sed) MODERATE Abnormal NONE SEEN /RARE [facility] Comment on above: Performed By: #### U ACSIND, UMICRO #### [facility] [address] [place] [address] Dr. Gilberto Ocampo MUCOUS TRACE Abnormal NONE SEEN [facility] Comment on above: Performed By: #### U ACSIND, UMICRO #### [facility] [address] [address] [address] Gilberto Ocampo MUCOUS SMALL Abnormal NONE SEEN [facility] Comment on above: Performed By: #### U ACSIND, UMICRO #### [facility] [address] [address] [address] Gilberto Ocampo RBC 2-5 Abnormal 0-2 [facility] Comment on above: Performed By: #### U ACSIND, UMICRO #### [facility] [address] [address] [address] Gilberto Ocampo RBC 5-10 Abnormal 0-2 [facility] Comment on above: Performed By: #### U AMERICA JAINRO #### [facility] [address] [address] [address] Gilberto Ocampo WBC 20-50 Abnormal NONE SEEN [facility] Comment on above: Performed By: #### U AMERICA JAINRO #### [facility] [address] [address] [address] Gilberto Ocampo WBC 10-20 Abnormal NONE SEEN [facility] Comment on above: Performed By: #### U TARA JAINICRO #### [facility] [address] [address] [address] Gilberto Ocampo MG MAMM SCREEN 3D DION CADon 10-11-2022 MG MAMM SCREEN 3D DION CAD Patient: MALCOM KNOWLES Exam Date: 10/11/2022 : 1955 Gender:F Ordering : DR DUSTY WALTERS . Admission #: [id number] Family : Order #: [id number] CLICK HERE TO VIEW EXAM RADIOLOGY REPORT [...] prostate cancer at age 64. LOCATION: [facility] BREAST COMPOSITION: Scattered areas fibroglandular density. [...] Talbert MD on 10/11/2022 at 14:47 Normal [facility] PTH INTACTon 09-18-2022 PTH, Intact 46 pg/mL Normal 15-65 [facility] Comment on above: Performed By: #### U ZAID JAIN #### [facility] [address] [place] [address] Dr. Gilberto Ocampo HEMOGRAM AND PLATELon 2021 Hematocrit (Bld) [Volume fraction] 37.2 % Normal 36.0-48.0 [facility] Comment on above: Performed By: #### H H #### [facility] [address] [place] [address] Dr. Gilberto Ocampo Hemoglobin (Bld) [Mass/Vol] 12.2 g/dL Normal 12.0-16.0 [facility] Comment on above: Performed By: #### H H #### [facility] [address] [place] [address] Dr. Gilberto Ocampo MCH (RBC) [Entitic mass] 30.3 pg Normal 26.7-34.0 [facility] Comment on above: Performed By: #### H H #### [facility] [address] [place] [address] Dr. Gilberto Ocampo MCHC (RBC) [Mass/Vol] 32.8 g/dL Normal 29.9-35.2 [facility] Comment on above: Performed By: #### H H #### [facility] [address] [place] [address] Dr. Gilberto Ocampo MCV (RBC) [Entitic vol] 92.5 fL Normal 81.0-99.0 [facility] Comment on above: Performed By: #### H H #### [facility] [address] [place] [address] Dr. Gilberto Ocampo PLT 194 103/ul Normal 150-450 [facility] Comment on above: Performed By: #### H H #### [facility] [address] [place] [address] Dr. Gilberto Ocampo RBC 4.02 106/ul Critically low 4.20-5.40 [facility] Comment on above: Performed By: #### H H #### [facility] [address] [place] [address] Dr. Gilberto Ocampo WBC 5.4 103/ul Normal 4.0-11.0 [facility] Comment on above: Performed By: #### H H #### [facility] [address] [place] [address] Dr. Gilberto Ocampo MAGNESIUMon 09-15-2022 Magnesium [Mass/Vol] 1.9 mg/dL Normal 1.8-2.4 [facility] Comment on above: Performed By: #### A CET, CMP #### [facility] [address] [place] [address] Dr. Gilberto Ocampo PROF 14(COMP METB)on 022 Albumin [Mass/Vol] 3.3 g/dL Critically low 3.4-5.0 [facility] Comment on above: Performed By: #### A CET, CMP #### [facility] [address] [place] [address] Dr. Gilberto Ocampo Albumin/Globulin [Mass ratio] 0.9 {ratio} Normal [facility] Comment on above: Performed By: #### A CET, CMP #### [facility] [address] [place] [address] Dr. Gilberto Ocampo ALP [Catalytic activity/Vol] 85 U/L Normal 46-116 [facility] Comment on above: Performed By: #### A CET, CMP #### [facility] [address] [place] [address] Dr. Gilberto Ocampo ALT [Catalytic activity/Vol] 32 U/L Normal 14-59 [facility] Comment on above: Performed By: #### A CET, CMP #### [facility] [address] [place] [address] Dr. Gilberto Ocampo Anion gap [Moles/Vol] 12.3 mmol/L Normal [facility] Comment on above: Performed By: #### A CET, CMP #### [facility] [address] [place] [address] Dr. Gilberto Ocampo AST [Catalytic activity/Vol] 20 U/L Normal 15-37 [facility] Comment on above: Performed By: #### A CET, CMP #### [facility] [address] [address] [address] Gilberto Ocampo Bilirubin [Mass/Vol] 1.1 mg/dL Critically high 0.2-1.0 [facility] Comment on above: Performed By: #### A CET, CMP #### [facility] [address] [address] [address] Gilberto Ocampo Calcium [Mass/Vol] 8.5 mg/dL Normal 8.5-10.1 [facility] Comment on above: Performed By: #### A CET, CMP #### [facility] [address] [address] [address] Gilberto Ocampo Chloride [Moles/Vol] 103 mmol/L Normal 98-107 [facility] Comment on above: Performed By: #### A CET, CMP #### [facility] [address] [address] [address] Gilberto Ocampo CO2 [Moles/Vol] 29.5 mmol/L Normal 21.0-32.0 [facility] Comment on above: Performed By: #### A CET, CMP #### [facility] [address] [address] [address] Gilberto Ocampo Creatinine [Mass/Vol] 1.52 mg/dL Critically high 0.55-1.02 [facility] Comment on above: Performed By: #### A CET, CMP #### [facility] [address] [address] [address] Gilberto Ocampo EGFR-AF CHILEAN 41 mL/min/1.73m2 Critically low >=60 [facility] Comment on above: Performed By: #### A CET, CMP #### [facility] [address] [address] [address] Gilberto Ocampo EGFR-NON AF CHILEAN 34 mL/min/1.73m2 Critically low >=60 [facility] Comment on above: Performed By: #### A CET, CMP #### [facility] [address] [address] [address] Gilberto Ocampo Globulin (S) [Mass/Vol] 3.6 g/dL Normal [facility] Comment on above: Performed By: #### A CET, CMP #### [facility] [address] [place] [address] Dr. Gilberto Ocampo Glucose [Mass/Vol] 323 mg/dL Critically high 74-[address] [facility] Comment on above: Performed By: #### A CET, CMP #### [facility] [address] [place] [address] Dr. Gilberto Ocampo Potassium [Moles/Vol] 3.8 mmol/L Normal 3.5-5.1 [facility] Comment on above: Performed By: #### A CET, CMP #### [facility] [address] [place] [address] Dr. Gilberto Ocampo Protein [Mass/Vol] 6.9 g/dL Normal 6.4-8.2 [facility] Comment on above: Performed By: #### A CET, CMP #### [facility] [address] [place] [address] Dr. Gilberto Ocampo Sodium [Moles/Vol] 141 mmol/L Normal 136-145 [facility] Comment on above: Performed By: #### A CET, CMP #### [facility] [address] [place] [address] Dr. Gilberto Ocampo Urea nitrogen [Mass/Vol] 16.0 mg/dL Normal 7.0-18.0 [facility] Comment on above: Performed By: #### A CET, CMP #### [facility] [address] [place] [address] Dr. Gilberto Ocampo Urea nitrogen/Creatinin e [Mass ratio] 10.5 mg/mg Normal [facility] Comment on above: Performed By: #### A CET, CMP #### [facility] [address] [place] [address] Dr. Gilberto Ocampo URIC ACID SERUMon 09-15-2022 Urate [Mass/Vol] 3.3 mg/dL Normal 2.6-6.0 [facility] Comment on above: Performed By: #### A CET, CMP #### [facility] [address] [place] [address] Dr. Gilberto Ocampo VITAMIN D 25 OHon 09-15-2022 VIT D 25-OH 57.1 ng/mL Normal [facility] Comment on above: Performed By: #### U ZAID JAIN #### [facility] [address] [address] [address] Gilberto Ocampo VIT D RANGES SEE BELOW Normal [facility] Comment on above: Result Comment: <20 ng/mL Vit D deficient 20 - <30 ng/mL Vit D insufficient 30 - 100 ng/mL Vit D sufficient >100 ng/mL Potential Toxicity Performed By: #### U ZAID JAIN #### [facility] [address] [address] [address] Gilberto Ocampo US KIDNEYSon 08-30-2022 US [...] ADAMS RAGSDALE Date: 2022-08-30 11:46 Normal [facility] XR CHEST 2 Von 08-27-2022 XR [...] by: ADAMS RAGSDALE Date: 2022-08-27 21:54 Normal [facility] XR NECK SOFT TISSUEon 2021 [...] by: ADAMS RAGSDALE Date: 2022-08-27 21:58 Normal [facility] Tobacco Screening.on 022 Adult depression screening assessment No [facility] [employer] y 250 DO Work Phone: Fall risk assessment b) One or more falls in the last year [facility] [employer] y 250 DO Work Phone: Tobacco use status CPHS b) No [facility] [employer] 250 DO Work Phone: CNPNon [facility]) [facility] MALCOM KNOWLES ([id number]) 1955 F Date Time Provider Department 01/18/21 REGINA MANZO [facility] During your visit today, we recorded the following information about you: Anabela Bettencourt [facility] 01/18/2021 10:00 AM Signed Called patient and told her left and needs to make a follow up at . Patient said she will call back in April. She has to figure out transportation. 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 VACCINE 2010-12(3 YR+)(PF) 01/18/2016 16 [...] Encounter Status:Closed by ANABELA BUSTAMANTE on 01/18/21 [facility] Vital Signs Date Time Vital Sign Value Performing Clinician Facility 01-09-2024 11:49-0500 Body height 157.5 cm Cinthia Vazquez MD Work Phone: [facility] 01-09-2024 11:49-0500 Body mass index (BMI) [Ratio] 53.04 kg/m2 Cinthia Vazquez MD Work Phone: [facility] 01-09-2024 11:49-0500 Body weight 131.54 kg Cinthia Vazquez MD Work Phone: [facility] 01-09-2024 11:49-0500 Diastolic blood pressure 80 mm[Hg] Cinthia Vazquez MD Work Phone: [facility] 01-09-2024 11:49-0500 Heart rate 64 /min Cinthia Vazquez MD Work Phone: [facility] 01-09-2024 11:49-0500 Systolic blood pressure 136 mm[Hg] Cinthia Vazquez MD Work Phone: [facility] 11-21-2023 10:16-0500 Blood Pressure Location BRIGIDA WILLOUGHBY [facility] 11-21-2023 10:16-0500 Diastolic blood pressure 84 mm[Hg] BRIGIDA WILLOUGHBY [facility] 11-21-2023 10:16-0500 Systolic blood pressure 138 mm[Hg] BRIGIDA WILLOUGHBY [facility] 07-02-2023 14:20-0400 Body height 162.56 cm Chip Hernandezs Other [facility] [employer] Other 07-02-2023 14:20-0400 Body temperature 96.7 [degF] [employer] Other [facility] [employer] Other 07-02-2023 14:20-0400 Diastolic blood pressure 79 mm[Hg] Azamos [employer] Other [facility] [employer] Other 07-02-2023 14:20-0400 Respiratory rate 18 /min Azamos [employer] Other [facility] [employer] Other 07-02-2023 14:20-0400 SaO2% (BldA) [Mass fraction] 98 % Azamos [employer] Other [employer] Other 07-02-2023 14:20-0400 Systolic blood pressure 155 mm[Hg] Azamos [employer] Other [employer] Other 04-04-2023 11:33-0400 Body height 160.02 cm Dusty Walters Work Phone: [facility] 600 DO Work Phone: 04-04-2023 11:33-0400 Body mass index (BMI) [Ratio] 52.97 kg/m2 Dusty Walters Work Phone: [facility] [employer] 600 DO Work Phone: 04-04-2023 11:33-0400 Body surface area Derived from formula 2.29 m2 Dusty Walters Work Phone: [facility] 600 DO Work Phone: 04-04-2023 11:33-0400 Body weight 135.63 kg Dusty Walters Work Phone: [facility] 600 DO Work Phone: 04-04-2023 11:33-0400 Diastolic blood pressure 70 mm[Hg] Dusty Walters Work Phone: [facility] [employer] 600 DO Work Phone: 04-04-2023 11:33-0400 Heart rate 72 /min Dusty Walters Work Phone: [facility] [employer] 600 DO Work Phone: 04-04-2023 11:33-0400 Systolic blood pressure 110 mm[Hg] Dusty Walters Work Phone: [facility] [employer] 600 DO Work Phone: 11-20-2022 10:30-0500 Body height 162.56 cm Lizandro Eliezer Other [facility] [employer] Other 10-30-2022 16:20-0500 Body height 162.56 cm Aziz Bakhous Other [employer] Other 10-30-2022 16:20-0500 Diastolic blood pressure 84 mm[Hg] Aziz Bakhous Other [employer] Other 10-30-2022 16:20-0500 SaO2% (BldA) [Mass fraction] 98 % Aziz Bakhous Other [employer] Other 10-30-2022 16:20-0500 Systolic blood pressure 128 mm[Hg] Azamos Hernandezs Other [employer] Other 05-15-2022 14:20-0400 Body height 162.56 cm Azamos Hernandezs Other [employer] Other 05-15-2022 14:20-0400 Body temperature 97 [degF] Azamos Hernandez[employer] Other [employer] Other 05-15-2022 14:20-0400 Diastolic blood pressure 70 mm[Hg] Aziz Bakhous Other [employer] Other 05-15-2022 14:20-0400 Respiratory rate 18 /min Chip Hernandezs Other [employer] Other 05-15-2022 14:20-0400 SaO2% (BldA) [Mass fraction] 97 % Chip Hernandezs Other [employer] Other 05-15-2022 14:20-0400 Systolic blood pressure 120 mm[Hg] Chip Bakhous Other [employer] Other 03-12-2022 13:25-0400 Body height 160.02 cm Dusty Seals [employer] Work Phone: [facility] [employer] 250 DO Work Phone: 03-12-2022 13:25-0400 Body mass index (BMI) [Ratio] 51.02 kg/m2 Dusty Seals [employer] Work Phone: [facility] [employer] 250 DO Work Phone: 03-12-2022 13:25-0400 Body surface area Derived from formula 2.26 m2 Dusty Walters Work Phone: [facility] 250 DO Work Phone: 03-12-2022 13:25-0400 Body weight 130.64 kg Dusty Walters Work Phone: [facility] 250 DO Work Phone: 03-12-2022 13:25-0400 Diastolic blood pressure 78 mm[Hg] Dusty Walters Work Phone: [facility] 250 DO Work Phone: 03-12-2022 13:25-0400 Heart rate 70 /min Dusty Walters Work Phone: [facility] 250 DO Work Phone: 03-12-2022 13:25-0400 Systolic blood pressure 102 mm[Hg] Dusty Walters Work Phone: [facility] 250 DO Work Phone: Encounters Encounter Date Encounter Type Care Provider Facility Start: 04-28-2024 [facility] Start: 03-03-2024 ambulatory BRIGIDA WILLOUGHBY Facili ty:[facility] Start: 02-27-2024 ambulatory BRIGIDA WILLOUGHBY Facili ty:[facility] [place] Start: 02-24-2024 ambulatory Jose Snow Facility :[facility] Start: 02-04-2024 End: 02-05-2024 [facility]ulatory [facility] Start: 01-09-2024 End: 01-09-2024 ambulatory [facility] Start: 01-09-2024 End: 01-09-2024 Office outpatient visit 15 minutes Cinthia Vazquez MD Work Phone: [facility] Comment on above: 2-vessel coronary ar wade disease (Primary Dx); Essential hypertension; Mixed hyperlipidemia; H/O non-ST elevation myocardial infarction (NSTEMI); Post PTCA; Morbid obesity ([facility]/HCC) Start: 12-23-2023 End: 12-24-2023 ambulatory Joe BOOTH [facility] Start: 12-23-2023 End: 12-23-2023 Patient encounter procedure Joe Guerra [facility] Start: 12-16-2023 End: 12-17-2023 ambulatory Mariangel Campbell Facility:[facility] Start: 11-21-2023 End: 11-22-2023 ambulatory MD CHIP CRAFT Facility:[facility] Start: 11-21-2023 End: 11-21-2023 Patient encounter procedure BRIGIDA WILLOUGHBY [facility] Start: 11-20-2023 End: 11-21-2023 ambulatory Jose Snow Facility:[facility] [facility] Start: 10-23-2023 ambulatory MD CHIP CRAFT Facilit y:[facility] Start: 10-01-2023 End: 10-02-2023 ambulatory Jose Snow [facility] Start: 10-01-2023 End: 10-01-2023 Patient encounter procedure Jose Snow [facility] Start: 09-09-2023 End: 09-10-2023 ambulatory Jose Snow Facility:[facility] [place] [facility] Start: 07-31-2023 End: 07-31-2023 ambulatory Anjana Pal Other [employer] Other Start: 07-31-2023 Telephone encounter An[facility] Start: 07-28-2023 End: 07-28-2023 ambulatory MD Dusty Walters Work Phone: [facility] Work Phone: Start: 07-28-2023 End: 07-28-2023 Departed Referred MD Dusty Walters Work Phone: [facility] [place] Work Phone: Start: 07-15-2023 End: 07-16-2023 ambulatory Mariangel L Adrian Facility:[facility] Mary gant Start: 07-05-2023 Telephone encounter Tanika John [facility] Start: 07-05-2023 End: 07-05-2023 ambulatory Tanika John Other [facility] Other Start: 07-02-2023 End: 07-02-2023 ambulatory Aziz Bakhous Other [facility] Other Start: 07-02-2023 Office outpatient visit 25 minutes Aziz Bakhous [facility] Start: 07-01-2023 Office outpatient visit 25 minutes Brigida George [facility] Start: 07-01-2023 End: 07-01-2023 ambulatory MD Dusty Walters Work Phone: [facility] Work Phone: Start: 07-01-2023 End: 07-01-2023 Patient encounter procedure MD Dusty Walters Work Phone: [facility] Start: 06-28-2023 End: 06-28-2023 ambulatory Aziz Bakhous Other [facility] Other Start: 06-28-2023 Telephone encounter Aziz Bakhous [facility] Start: 05-16-2023 End: 05-17-2023 ambulatory Mariangel L Adrian [facility] Start: 05-16-2023 End: 05-16-2023 Lab Drop off Mariangel L Adrian [facility] Start: 05-01-2023 ambulatory AJ BEJ Facility:H 1 Start: 04-04-2023 Office outpatient visit 25 minutes Dusty Walters Work Phone: [facility] 600 DO Work Phone: Start: 04-04-[address] Dusty Salgado acility: Start: 01-24-2023 End: 01-24-2023 ambulatory CONNER GERMAN . Facility:[facility]1 Start: 01-18-2023 End: 01-19-2023 ambulatory AJ YONUG Facility:[facility] Start: 12-26-2022 End: 12-26-[address] DUSTY WALTERS . Facility:[facility] Start: 12-18-2022 End: 12-18-2022 ambulatory Lizandro Eliezer Other [facility] [employer] Other Start: 12-18-2022 Office outpatient visit 15 minutes Lizandro Martins [facility] Start: 12-17-2022 End: 12-17-[address] DUSTY WALTERS . Facility:[facility] Start: 11-20-2022 End: 11-20-2022 ambulatory Lizandro Eliezer Other [facility] Other Start: 11-20-2022 [facility] visit new patient Lizandro Cummingsmelina [facility] Start: 11-17-2022 End: 11-17-[address] DUSTY WALTERS . Facility:[facility] Start: 11-09-2022 End: 11-10-[address] DUSTY WALTERS . Facility:[facility] Start: 11-09-2022 End: 11-10-[address] DUSTY WALTERS . Facility:[facility] Start: 10-30-2022 End: 10-30-2022 ambulatory Chip Craft Other [facility] Other Start: 10-30-2022 Office outpatient visit 15 [...] Facility:[facility] Start: 05-15-2022 End: 05-15-2022 ambulatory Chip Nelsontushar Other [facility] [employer] Other Start: 05-15-2022 Office outpatient ne w 30 minutes Chip Craft [facility] Nephrology Don Start: 03-12-2022 Office outpatient visit 25 minutes Dusty Walters Work Phone: [facility] 250 DO Work Phone: Procedures Date Procedure Procedure Detail Performing Clinician Start: 07-01-2023 Plain X-ray of left shoulder MD Dusty Walters Work Phone: Arthroplasty of knee Dusyt chase Work Phone: Cardiac catheterization Dusty Walters Work Phone: Cardiac catheterization Jose R Snow Comment on above: 2017 2 stents, 2019 3 stents Cataract (disorder) Jose collazo Comment on above: 08/2021 Colonoscopy BRIGIDA FARTUN History of arthropla sty of left knee [...] knee replacement Jose Snow Comment on above: 2017 Tonsillectomy and adenoidectomy Dusty Walters Work Phone: Total abdominal hysterectomy with bilateral salpingo-oophorectomy Jose Kaushal Total colonoscopy Dusty Du Work Phone: Plan of Treatment Date Care Activity Detail Author Start: 01-05-2025 End: 01-05-2025 Patient encounter procedure 01/05/2025 9:50 AM EST Office Visit [facility] [address] [facility] [address] [place] [address] Cinthia Vazquez MD [address] [facility] 2, [address] [place] [address] [facility] Start: 01-07-2024 FUV, Provider: Cinthia Vazquez, Status: Pen, Time: 11:00 AM FUV, Provider: Cinthia Vazquez, Status: Pen, Time: 11:00 AM [facility] 600 DO Work Phone: Start: 08-02-2023 COVID-19 Vaccine ( season) COVID-19 Vaccine ( season) [facility] Start: 08-02-2023 Influenza vaccination Influenza Vaccine (#1) [facility] Start: 07-28-2023 Bacteria identified in Urine by Culture Urine Culture [facility] Start: 12-11-2022 FUV, Provider: Cinthia Vazquez, Status: Pen, Time: 10:30 AM FUV, Provider: Cinthia Vazquez, Status: Pen, Time: 10:30 AM [facility] 250 DO Work Phone: Start: 07-05-2022 Glaucoma screening Diabetes: Retinopathy Screening [facility] Start: 12-02-2021 Pneumococcal Vaccine: 65+ Years (3 - PPSV23 or PCV20) Pneumococcal Vaccine: 65+ Years (3 - PPSV23 or PCV20) [facility] Start: 2003 Zoster Vaccines (1 of 2) Zoster Vaccines (1 of 2) [facility] Start: 1993 Screening for malignant neoplasm of breast Mammogram [facility] Start: 1975 DTaP/Tdap/Td Vaccines (1 - Tdap) DTaP/Tdap/Td Vaccines (1 - Tdap) [facility] Start: 1972 Urine screening for protein Diabetes: Urine Protein Screening [facility] Start: 1971 Hepatitis C screening Hepatitis C Screening [facility] Start: 1963 Diabetic foot examination Diabetes: Foot Exam [facility] Start: 1953 Hemoglobin A1c measurement Diabetes: Hemoglobin A1C [facility] Start: 1953 Lipid panel Lipid Panel [facility] Start: 1953 Medicare Annual Wellness Visit Medicare Annual Wellness Visit (AWV) [facility] Start: 1953 Screening for malignant neoplasm of colon [facility] Start: 1953 Screening for osteoporosis Bone Density Scan [facility] Immunizations Immunization Date Immunization Notes Care Provider Fa cilihenrry 09-13-2022 SARS-CoV-2 (COVID-19 ) [id number] Mariangel Campbell [facility] 01-13-2022 Moderna COVID-19 Vac cine 100 MCG/0.5ML Intramuscular Suspension Dusty Walters Work Phone: [facility] Comment on above: Result Comment: 2022: [id number] 08-09-2021 Moderna COVID-19 Vac cine 100 MCG/0.5ML Intramuscular Suspension Dusty Walters Work Phone: [facility] 07-12-2021 Moderna COVID-19 Vac cine 100 MCG/0.5ML Intramuscular Suspension Dusty Walters Work Phone: [facility] 12-02-2016 pneumococcal polysaccharide vaccine, 23 valent Dusty Walters Work Phone: [facility] 250 DO Work Phone: 10-18-2016 pneumococcal conjuga te vaccine, 13 valent Dusty Walters Work Phone: [facility] Payers Date Payer Category Payer Unknown [id number] 2023 Self-pay [id number] 2022 Medicare [id number] 2018 Medicare [id number] 1959 Medicare [id number] 2.1 6.840.1.745213.19 1959 Unknown [id number] 2.1 6.840.1.673219.19 1953 Unknown [id number] 2.16. 840.1.170703.3.579.2.356 1953 Unknown [id number] 2.16.84 0.1.073130.3.579.2.593 1953 Unknown [id number] 2.16.84 0.1.999139.3.579.2.593 1953 Unknown [id number] 2.16.84 0.1.996359.3.579.2.593 1953 Unknown [id number] 2.16.84 0.1.371159.3.579.2.593 1953 Unknown [id number] 2.16.84 0.1.012949.3.579.2.593 1953 Unknown [id number] 2.16.84 0.1.426273.3.579.2.593 1953 Unknown [id number] 2.16.84 0.1.698142.3.579.2.593 1953 Unknown [id number] 2.16.84 0.1.454916.3.579.2.593 1953 Unknown [id number] 2.16.84 0.1.985560.3.579.2.593 1953 Unknown [id number] 2.16.84 0.1.001989.3.579.2.593 1953 Unknown [id number] 2.16.84 0.1.372910.3.579.2.593 1953 Unknown [id number] 2.16.84 0.1.247148.3.579.2.593 1953 Unknown [id number] 2.16.84 0.1.637075.3.579.2.593 1953 Unknown [id number] 2.16.8 40.1.115563.3.579.2.1244 1953 Unknown [id number] 2.16.8 40.1.909173.3.579.2.727 1953 Unknown [id number] 2.16.8 40.1.713283.3.579.2.727 1953 Unknown [id number] 2.16.8 40.1.801074.3.579.2.727 1953 Unknown [id number] 2.16.8 40.1.923794.3.579.2.727 1953 Unknown [id number] 2.16.8 40.1.556264.3.579.2.727 1953 Unknown [id number] 2.16.8 40.1.392316.3.579.2.727 1953 Unknown [id number] 2.16.8 40.1.829543.3.579.2.727 1953 Unknown [id number] 2.16.8 40.1.723063.3.579.2.727 1953 Unknown [id number] 2.16.8 40.1.449652.3.579.2.727 1953 Unknown [id number] 2.16.8 40.1.802633.3.579.2.727 1953 Unknown [id number] 2.16.8 40.1.517325.3.579.2.727 1953 Unknown [id number] 2.16.8 40.1.656387.3.579.2.727 1953 Unknown [id number] 2.16.8 40.1.000395.3.579.2.727 1953 Unknown [id number] 2.16.8 40.1.748352.3.579.2.727 1953 Unknown [id number] 2.16.8 40.1.198006.3.579.2.727 Medicaid [place] [employer] [id number] Unknown Unknown [id number] 2.16.8 40.1.184921.3.579.2.531 Unknown [id number] 2.16.8 40.1.214323.3.579.2.531 Social History Date Type Detail Facility Start: 12-16-2023 No alcohol use No alcohol use -Nor [facility] 250 DO Work Phone: Comment on above: 2 CUPS OF ICED TEA D AILY; Start: 12-16-2023 Sex Assigned At F [facility] Start: 05-16-2023 End: 12-16-2023 Tobacco smoking status Never smoked tobacco (finding) [facility] Tobacco smoking status Never [facility] Start: 1955 Sex Assigned At Female F [facility] Start: 01-09-2024 Alcohol intake Lifetime non-d vijay (finding) [facility] Work Phone: Start: 1955 Sex Assigned At Not on file [facility] Work Phone: Start: 12-30-2023 End: 01-09-2024 Exposure to SARS-CoV-2 (event) Not sure [facility] Medical Equipment Procedure Code Equipment [...] PERSONA LEFT SIZE D FDA Start: 03-30-2019 [facility] Prescri ption, See Instructions, 300 pen needle(s), 3, BD ultra fine pen needles 31G X 3/16. Use to inject insulin as directed. Dx E10.42, [facility] Start: 02-19-2023 CL STENT AURORA 3.0 X 18 FDA Start: 06-29-2018 CL STENT AURORA 3.5 X 15 FDA Start: 06-29-2018 [id number] FDA Start: 04-18-2020 Drug-eluting cor onary artery stent, xxc-zvlijcmndrqsz-zpkj larry-coated ()[id number] FDA Start: 04-18-2020 Drug-eluting cor onary artery stent, asd-cwbssdiyjkkda-kmms larry-coated ()[id number] FDA Start: 04-18-2020 CL STENT AURORA 3.0 X 18 FDA Start: 06-29-2018 CL STENT AURORA 3.5 X 15 FDA Start: 06-29-2018 [id number] FDA Start: 04-18-2020 [facility] Prescri ption, See Instructions, 300 pen needle(s), 3, BD ultra fine pen needles 31G X 3/16. Use to inject insulin as directed. Dx E10.42, [facility], Supply Start: 02-19-2023 [facility] Prescri ption, See Instructions, 300 pen needle(s), 3, BD ultra fine pen needles 31G X 3/16. Use to inject insulin as directed. Dx E10.42, [facility], Supply Start: 02-19-2023 [facility] Prescri ption, See Instructions, 300 pen needle(s), 3, BD ultra fine pen needles 31G X 3/16. Use to inject insulin as directed. Dx E10.42, [facility], Supply Start: 02-19-2023 Functional Status Date Assessment Result Facility 12-23-2023 Functional Status N/A [facility] 11-21-2023 Functional Status N/A [facility] Clinical Notes 06-01-2018 to 01-09-2024 Cinthia Vazquez [...] Never a smoker Post PTCA (V45.82) (Z98.61) [facility] resident (V60.6) (Z59.3) Orders 2-vessel coronary artery disease Stop: Aspirin EC 81 MG TBEC Morbid obesity with BMI of 50.0-59.9, adult Healthy Weight Tips; Status:Complete - Retrospective Authorization; Done: 04Apr2023 Some eating tips that can help you lose weight.; Status:Complete - Retrospective Authorization; Done: 04Apr2023 SocHx: Never a smoker Tobacco Use Screening; Status:Complete; Done: [id number] Patient Instructions Please bring all medicines, vitamins, [...] Scribe Attestation By signing my name below, dee Cheema , Scribe attest that this documentation has been prepared under the direction and in the presence of Cinthia Vazquez MD. documented in this encounter [facility] Work Phone: 01-09-2024 Instructions Nathaly Huffman LPN [...] up one year documented in this encounter [facility] Work Phone: 12-31-2023 Note Clinician was able t o reach out to daughter. Was able to share insight and psychoeducation on the in's and outs of skilled nursing care, including social science research assistant living. Was able to share the need for a SLUMS test from Neurology and to test for Alzheimer's and or Dementia due to grandmother having Alzheimer's. Gave information to reach out to Health Information Managers if anything else is needed. [facility] 12-23-2023 Note [id number] [facility] 12-23-2023 Note Cystoscopy with Uret hral [...] you have a fever over [address] [facility] 12-23-2023 Hospital Discharge instructions Patient Education [...] Up Care 11/26/2023 13:33:03 With:BRIGIDA WILLOUGHBY Address: [address] [facility] [place] [address] [facility] (1) When:6 weeks Comments:Call for followup appointment, with a bladder scan for PVR at that visit. Monitor your urinary flow after the dilation of the channel today. [facility] 11-21-2023 Hospital Discharge instructions Patient Education 11/21/2023 [...] nerve stimulation). ?For women, using a medical technician assistant to prevent urine leaks. This is [...] right after experiencing incontinence. General instructions Take swms-dxe-odjdvfy and prescription medicines only as told by [...] important. Where to find more information National [place] of Diabetes and Digestive and Kidney Diseases: www.niddk.nih.gov [place] [employer]: www.urologyhealth.org Contact a health care [...] provider. Document Revised: 06/23/2021 Document Reviewed: 06/23/2021 [employer] Patient Education 2022 [employer]. Follow Up Care 09/03/2023 10:14:29 With:BRIGIDA WILLOUGHBY PA-C, URL Address: [address] [place], [place] [address]stan Fritz [facility] [place] [address] [phone] When: Unknown [facility] 07-02-2023 Evaluation note Encounter Date Diagnosis [...] obesity (ICD-10 - E66.01) advised weight loss [facility] Other 07-31-2023 Evaluation note* Encounter Date Diagnosis [...] pain of left shoulder (ICD-10 - M25.512) [facility] Other 06-15-2023 Evaluation + Plan note Diagnostic Tests Pending * Urine Culture 05/16/23 [facility]01-17-2023 Evaluation note* Encounter Date Diagnosis Assessment Notes Treatment Notes Treatment Clinical Notes Dec, Dislocation of right shoulder joint, subsequent encounter (ICD-10 - S43.004D) Patient instructed on gentle motion and strength exercise. We will consider an MRI of the shoulder to rule out a rotator cuff tear, if patient has increased pain. We will f/u in 6-8 weeks, or sooner if patient needs [facility] Other 12-20-2022 Evaluation note* Encounter Date Diagnosis [...] age range than in a younger person. [facility] Other 11-29-2022 Evaluation note* Encounter Date Diagnosis [...] follows with her PCP for hyperlipidemia management [facility] Other [id number] NotePROCEDURE: XR SHOULDER LT 2V or > HISTORY: Pain of left shoulder joint COMPARISON: None. FINDINGS: BONES:No fracture, dislocation, bone lesion. Narrowing and mild degenerative changes of the acromioclavicular joint. SOFT TISSUES:No visible soft tissue swelling. EFFUSION:None visible. OTHER: Negative. IMPRESSION: 1. No acute bone abnormality. Electronically authenticated by: ADAMS RAGSDALE Date: 2022-08-27 21:59[facility]09-26-2022 NotePROCEDURE: XR FEMUR RT HISTORY: Pain in right leg after falling COMPARISON: None. FINDINGS: BONES:Mild degenerative changes of hip joint. Right knee replacement. No fracture or dislocation. SOFT TISSUES:No visible soft tissue swelling. EFFUSION:None visible. OTHER: Negative. IMPRESSION: 1. No acute bone abnormality. Electronically authenticated by: ADAMS RAGSDALE Date: 2022-08-27 21:56[facility]09-26-2022 NotePROCEDURE: XR ELBOW RT MIN [...] Electronically authenticated by: ADAMS RAGSDALE Date: 2022-08-27 21:53[id number] NotePROCEDURE: XR ELBOW RT MIN 3 VIEWS, XR HUMERUS RT MIN 2 V HISTORY: Elbow joint pain after falling COMPARISON: None. FINDINGS: BONES:No fracture, dislocation, bone lesion. Degenerative changes of the acromioclavicular joint. SOFT TISSUES:No visible soft tissue swelling. EFFUSION:None visible. OTHER: Negative. IMPRESSION: 1. No acute bone abnormality the right humerus or elbow joint. Electronically authenticated by: ADAMS RAGSDALE Date: 2022-08-27 21:53[facility]06-14-2022 Evaluation note* Encounter Date Diagnosis [...] along with repeated blood work as above 14 Declan, 2022 Primary hypertension (ICD-10 - I10) Seems well [...] Hyperlipidemia, unspecified hyperlipidemia type (ICD-10 - E78.5) [facility] Other [id number] History general Narrative - Reported* Type Description Date Medical History guillan-barre 2002 Medical History DM Medical History shingles Medical History [place] 06/2018 Medical History heart attack Medical History PARESTHESIA Medical History [place] Medical History MACROGLOSSIA Surgical History back surgery 2011 Surgical History meniscus repair left knee Surgical History hysterectomy 2015 Surgical History 2 heart stents 06/2018 Surgical History right TKA 03/04/18 Hospitalization History see above [facility] Other Evaluation + Plan note Future Appointments Appointment Date:11/21/2023 10:30:00 AM Scheduled Provider:BRIGIDA WILLOUGHBY PA-C Location:[facility] App[facility]O [facility] Future Appointments Appointment Date:02/24/2024 10:15:00 AM Scheduled Provider:Jose Snow MD Location:[facility] Appointment Type: Open Appointment Date:02/27/2024 11:15:00 AM Scheduled Provider:BRIGIDA WILLOUGHBY PA-C Location:[facility] Appointment Type:URO Office Visit [facility] Evaluation + Plan note Future Appointments Appointment Date:02/04/2024 11:20:00 AM Scheduled Provider:BRIGIDA WILLOUGHBY PA-C Location:[facility] Appointment Type:URO Office Visit Appointment Date:02/24/2024 10:15:00 AM Scheduled Provider:Jose Snow MD Location:[facility] Appointment Type:FM Open Appointment Date:03/03/2024 02:00:00 PM Scheduled Provider:BRIGIDA WILLOUGHBY PA-C Location:[facility] Appointment Type:URO [facility] InformationNort [facility] Other Evaluation noteNo assessment information available [facility] Work Phone: Evaluation note* Diagnosis 2-vessel coronary artery disease- Primary Essential hypertension Unspecified essential hypertension Mixed hyperlipidemia H/O non-ST elevation myocardial infarction (NSTEMI) Post PTCA Postsurgical percutaneous transluminal coronary angioplasty status Morbid obesity (CMS/HCC) Morbid obesity documented in this encounter [facility] Work Phone: History of Present [...] to lose 10-12 pounds by next time [facility] 250 DO Work Phone: History of Present [...] to lose 10-12 pounds by next time [facility] [employer] DO Work Phone: Hospital course Narrative No data available for this section [facility] No data available for this section [facility] No data available for this section [facility] Center[facility] for referral (narrative)* Consultation (Routine) - Authorized Specialty Diagnoses / Procedures Referred By Contac t Referred To Contact Cardiology Diagnoses 2-vessel coronary artery disease Essential hypertension Mixed hyperlipidemia Procedures Follow Up In Cardiology Cinthia Vazquez MD [address] [facility] 2, [address] [address] Cinthia Vazquez MD [address] [facility] 2, [address] [place] [address] Referral ID Status Reason Start Date Expiration Date V isits Requested Visits Authorized [id number] Authorized 01/09/2024 01/08/2025 1 1 [facility] Work Phone: Summary Purpose Family History No [...] section and content) DATE CREATED AUTHOR 01/19/2021 [facility] DATE CREATED AUTHOR AUTHOR'S ORGANIZ ATION 04/07/2023 [facility] DATE CREATED AUTHOR AUTHOR'S ORGANIZ ATION 04/07/2023 [employer] DATE CREATED AUTHOR AUTHOR'S ORGANIZ ATION 05/11/2023 [facility] DATE CREATED AUTHOR AUTHOR'S ORGANIZ ATION 08/08/2023 [facility] DATE CREATED AUTHOR AUTHOR'S ORGANIZ ATION 01/13/2024 [facility] DATE CREATED AUTHOR AUTHOR'S ORGANIZ ATION 02/21/2024 [facility] REASON FOR VISIT (unrecogniz ed section [...] Active Anjana Pal APRN Attending Provider Active Hyperbaric Technologist Relationship Specialty Start Date End Date oJse Snow MD [address] [place] [address] PCP - General Family Medicine 01/09/24 Goals [...] BE BASED ON THE PRIMARY CLINICAL RECORDS. [facility] [employer] [facility]. provides no warranty or guarantee of the accuracy or completeness of information in this document.
[2024-02-24 13:17] LABS: Bilirubin Urine NEGATIVE (NEGATIVE); Blood Urine SMALL (NEGATIVE); Clarity Urine CLEAR (CLEAR); Color Urine LT. YELLOW (YELLOW); Glucose Urine UA NEGATIVE (NEGATIVE); Ketones Urine NEGATIVE (NEGATIVE); Leukocyte Esterase Urine NEGATIVE (NEGATIVE); Nitrite Urine NEGATIVE (NEGATIVE); Protein Urine NEGATIVE (NEG/TRACE); Urobilinogen Urine 0.2 EU/dL (0.2-1.0); pH Urine 5.5 (5.0-9.0)
[2024-02-24 13:32] LABS: Hematocrit 37.6 % (36.0-48.0); Mean Corpuscular HGB Conc 31.9 g/dL (29.9-35.2); Mean Platelet Volume 10.5 fL (9.5-13.5); Platelet Count 244 10^3/uL (150-450); Red Cell Distribution Width 13.4 % (11.0-15.0); White Blood Count 7.5 10^3/uL (4.0-11.0)
[2024-02-24 14:40] LABS: Creatinine Urine Random 42.67 mg/dL (20.00-300.00); Total Protein Urine Random 25.8 mg/dL (<=11.9)
[2024-02-24 15:33] LABS: Percent Iron Saturation 23.9 %
[2024-02-24 15:38] LABS: Alanine Aminotransferase 35 U/L (14-59); Albumin Globulin Ratio 0.7; Albumin Level 3.1 g/dL (3.4-5.0); Alkaline Phosphatase 77 U/L (46-116); Aspartate Amino Transferase 23 U/L (15-37); Bilirubin Total 0.5 mg/dL (0.2-1.0); Calcium 9.3 mg/dL (8.5-10.1); Carbon Dioxide 31.9 mmol/L (21.0-32.0); Chloride 105 mmol/L (98-107); Estimated GFR (African America 39 (>=60); Estimated GFR (Non-African Ame 32 (>=60); Globulin 4.4 g/dL; Glucose 101 mg/dL (74-106); Magnesium 1.9 mg/dL (1.8-2.4); Phosphorus 3.7 mg/dL (2.6-4.7); Potassium 3.9 mmol/L (3.5-5.1); Sodium 145 mmol/L (136-145); Total Protein 7.5 g/dL (6.4-8.2)
[2024-02-25 15:09] LABS: PTH, Intact 71 pg/mL (15-65)
== END 2024-02-24 12:41 | disposition home or self-care (01) ==
LOC: LAB 12:44
PROVIDERS: PCP Family Medicine; Visit Provider Internal Medicine Nephrology
DX: N18.32 Chronic kidney disease, stage 3b (principal); E11.618 Type 2 diabetes mellitus with other diabetic arthropathy; G62.9 Polyneuropathy, unspecified; R60.0 Localized edema; D51.8 Other vitamin B12 deficiency anemias; E78.5 Hyperlipidemia, unspecified; E87.6 Hypokalemia; I12.9 Hypertensive chronic kidney disease with stage 1 through stage 4 chronic kidney disease, or unspecified chronic kidney disease
CPT/HCPCS: 36415; 80053; 81003; 82306; 82570; 82607; 82728; 82746; 83540; 83550; 83735; 83970; 84100; 84156; 84550; 85027

== ENCOUNTER 2024-02-24 19:55 | Outpatient (OUT) | payer MEDICARE, OTHER, SELFPAY ==
--- OUTSIDE RECORDS SUMMARY | 2024-02-24 20:00 | XMS_ITS | CCD ---
Author Organization [facility] Care Team Providers Care Real Estate Salesperson Name Role Phone Dusty Walters Unavailable Unavailable Unavailable Chip Craft Unavailable Lizandro Martins Unavailable Selena, Dr. Dusty Zacarias Primary Care Unavailab Cinthia Maxwell Attending Unavailable Cinthia Vazquez Referring Unavailable WALTERS ., DR DUSTY Seals Attending Unavailable WALTERS ., DR DUSTY Seals Admitting Unavailable WALTERS ., DR DUSTY Seals Primary Care Unavailable WALTERS ., DR DUSTY Seals Consulting Unavailable WALTERS ., DR DUSYT Seals Primary Care Unavailable MISC, DR ROSAS [...] ., DR DUSTY Seals Primary Care Unavailable STAFFORD, DR NIALL Underwood Consulting Unavailable BEJ, AJ Admitting Unavailable WALTERS ., DR DUSTY Seals Primary Care Unavailable BEJ, AJ Consulting Unavailable HECTOR, AJ Attending Unavailable Jose Snow Primary Care Physician [phone] Brigida George Unavailable Tanika Lopez Unavailable MD Dusty Walters Primary Care Provider [phone] MD Lizandro Martins Attending Provider DARRICK Pal Attending Provider [phone] Anjana Pal Unavailable Lizandro Martins Admitting Unavailable Lizandro Martins Attending Unavailable Dusty Walters Primary Care Unavailable Anjana Pal Admitting Unavailable Anjana Pal Attending Unavailable Dusty Walters Primary Care Unavailable Jose Snow MD Primary Care Provider [phone] CINTHIA VAZQUEZ Attending Unavailable JOSE SNOW Primary [...] Allergy to drug (finding) Unknown (qualifier value) [facility] (2 sources) FLU; Translations: [FLU] Allergy to drug (finding) [facility] 250 DO Work Phone: (9 sources) Sulfonamides (Antibiotic) Drug allergy Unknown [facility] Other (9 sources) Influenza Vac Recom CARREON Quad PF Drug allergy Unknown [facility] Other (2 sources) Sulfonamides (Antibiotic) Drug allergy (disorder) [facility] (2 sources) Flu Vaccine 3397-2040 (3 yr +) Drug allergy (disorder) 01-18-20 16 [facility] (5 sources) Sulfonamides (Antibiotic); Translations: [Sulfa (Sulfonamide Antibiotics)] Allergy to substance 03-31-20 19 Unknown [facility] (3 sources) Influenza Virus Vaccines; Translations: [Influenza Virus Vaccines] Allergy to substance 03-31-20 19 Hx. Guillian-Washburn ; told no flu vaccines [facility] (3 sources) influenza A virus A/[place]/[id number] (H1N1) antigen / influenza A virus A/[place]/[id number] (H3N2) antigen / influenza B virus B/[place] antigen / influenza B virus B/ antigen; Translations: [influenza virus vaccine] Drug Allergy [facility] Comment on above: contraindicated due to guilian barre (2 sources) Flu Medicine; Translations: [FLU MEDICINE] Drug Allergy 12-16-19 24 Unknown [facility] (1 source) influenza virus vaccine, inactivated; Translations: [influenza virus vaccine, inactivated] Propensity to adverse reactions (disorder) [facility] Repository Medications Current Medications Medication Drug [...] Status: Ordered Start: 06-27-2018 End: 04-09-2019 take 33806 ug by mouth twice daily Biotin Discontinued 31358 MCG PO Twice daily June 27, 2018 12:00am April 09, 2019 9:42am Start: 02-18-2018 End: 03-13-2018 take 1000 ug by mouth twice daily Biotin Discontinued 1000 MCG PO Twice daily February 18, 2018 12:00am March 13, 2018 10:19am biotin 1,000 mcg tablet,chewable Chew 1 tablet once daily. 0 Active take 1 tablet by fermín th twice daily Biotin 65221 MCG 1 tablet Orally twice a day [...] afterwards, # 2 tab(s), Refills(s) 0, Pharmacy[facility], 160, cm, 11/21/23 10:42:00 EST, Height/Length Dosing, 138, kg, 11/21/23 10:42:00 EST, Weight Dosing Start Date: 11/26/23 Status: Ordered Start: 05-16-2023 End: 05-23-2023 take 1 tablet by mouth every twelve hours Cipro 500 mg Tab 500 mg = 1 tab(s), Oral, q12hr, X 7 day(s), # 14 tab(s), Refills(s) 0, Pharmacy: [facility], 158, cm, 05/16/23 14:43:00 EDT, [...] Start: 05-16-2023 take 1 capsule by [facility] once daily as needed for constipation Colace [...] qWeek, # 12 EA, Refills(s) 0, Pharmacy: [facility], 158, cm, 09/09/23 16:01:00 EDT, [...] Once, # 1 tab(s), Refills(s) 0, Pharmacy: [facility] Start Date: 04/01/23 Status: Ordered Freestyle Bang [...] and bedtime. take 1 capsule by [facility] every eight hours Gabapentin 300 MG 1 [...] teresa, Rectal, TID, 10 gram, Refill(s) 0, [facility], 160, cm, 12/16/23 10:57:00 EST, [...] hydrochloride 10 mg oral tablet (16 sources) L-teuerl-P-aspartate Receptor Antagonist Start: 01-29-2022 take 1 tablet [...] day(s), # 20 cap(s), Refills(s) 0, Pharmacy: [facility], 160, cm, 12/16/23 10:57:00 EST, [...] 05/16/23 Status: Ordered take 2 tablets by [facility] every eight hours as needed ondansetron (Zofran) [...] 0 Start Date: 09/09/23 Status: Ordered sennosides, long-term 8.6 mg oral tablet (2 sources) Start: [...] day, Supply Start Date: 07/15/23 Status: Ordered Fbckkeeu-Nichu-Nyevq -Cf Borate ([employer]) 750 mg-100 mg- 1.65 mg-108 mg Tablet (4 sources) Start: 06-27-2018 End: 04-09-2019 take 1 tablet by mouth once daily Pjigxefr-Lszmq-Ctpu u-Cf Borate ([employer]ing [employer]) 750 mg-100 mg- 1.65 mg-108 mg Tablet Discontinued 2 TAB PO Daily June 27, 2018 12:00am April 09, 2019 9:42am Start: 02-18-2018 End: 03-06-2018 take 1 tablet by mouth once daily Fjtorqlu-Qjydl-Inkhq-Cf Borate ([employer] [facility] [employer]) 750 mg-100 mg- 1.65 mg-108 mg Tablet [...] ANTONIO G-F 20 (20 sources) Start: 06-20-2017 64 Pixels Jun 6 mL Start: 06-13-2017 The Personal Beevisc Jun 6 mL Start: 06-06-2017 The Personal Beevisc Jun 6 mL lidocaine 0.05 mg/mg medicated [...] 16, 2019 12:00am April 09, 2019 9:42am Hp-Wrf-Lkgxk-Calcium Carb-K1 (Women's 50 Plus Daily Formula) 400 mcg-500 mg calcium-20 mcg Tablet (4 sources) Start: 06-27-2018 End: 03-16-2019 take 1 tablet by mouth once daily Mb-Nqk-Gnrlj-Calcium Carb-K1 (Women's 50 Plus Daily Formula) 400 mcg-500 mg calcium-20 mcg Tablet Discontinued 1 TAB PO Daily June 27, 2018 12:00am March 16, 2019 2:32pm Start: 02-18-2018 End: 03-13-2018 take 1 tablet by mouth once daily Iz-Wvc-Fvbvh-Calcium Carb-K1 (Women's 50 Plus Daily Formula) 400 mcg-500 mg calcium-20 mcg Tablet Discontinued 1 TAB PO Daily February 18, 2018 12:00am March 13, 2018 10:20am Novolin L 100 UNIT/ML SUSP (1 source) Novolin L 100 UNIT/ML SUSP USE DIRECTED. Quantity: 0 Refills: 0 Ordered: 04-Apr-2023 DO Active nystatin 249951 unt/ml topical cream (2 sources) Polyene Antifungal [...] 06, 2018 12:28pm take 1 capsule by [facility] once daily alpha lipoic acid 600 mg [...] Administrative/social admission (3 sources) Lives in a chcf; Translations: [Person living in residential institution] 03-07-2018 Episodic Cancer of uterus (3 sources) Malignant neoplasm of uterus 09-04-2023 Chronic Chronic kidney disease (16 sources) Chronic kidney disease stage 3B ; Translations: [Chronic kidney disease, stage 3b] 03-07-2018 Chronic Coronary atherosclerosis and other heart disease (16 sources) Double coronary vessel disease; Translations: [Coronary atherosclerosis of unspecified type of vessel, [place] or graft] Onset: 08-29-2022 04-01-2019 Chronic Coronary [...] 11-09-2022 Chronic Comment on above: [facility] Disorders of lipid metabolism (20 sources) Hyperlipidemia; Translations: [Other and unspecified hyperlipidemia] Onset: 05-15-2022 Resolved: 05-15-2022 Chronic Essential hypertension (20 sources) Essential hypertension; Translations: [Unspecified essential hypertension] Onset: 05-15-2022 Resolved: 05-15-2022 Chronic Comment on above: [facility] Fluid and electrolyte disorders (1 [...] system disorders (3 sources) History of Guillain Washburn syndrome 09-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 Episodic Other non-traumatic joint disorders [...] Onset: 11-20-2022 Episodic Other aftercare (1 source) superintendent container terminal (current) use of aspirin; Translations: [SHOW CARD LETTERER CURRENT USE OF ASPIRIN] Onset: 01-28-2023 Episodic Other aftercare (1 source) Other mcfp (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 therapy; Translations: [OTH SENIOR LIVING CURRENT DRUG THERAPY] Onset: 01-28-2023 Episodic Other aftercare (1 source) superintendent container terminal (current) use of insulin; Translations: [SHOW CARD LETTERER CURRENT USE OF INSULIN] Onset: 01-28-2023 Episodic Other aftercare (1 source) custodial (current) use of antithrombotics/ant iplatelets; Translations: [SENIOR LIVING ANTITHROMBOT/ANTIPL ATLETS] Onset: 08-29-2022 Episodic Other connective [...] ity ED Note-Physicianon 02-20-20 ED Note-Physician [id number]#1.00TIFF Normal [facility] Screenson 02-07-2024 Screens [id number]#1.00TIFF Normal [facility] Shelter Recordson 02-05 Shelter Records [id number]#1.00TIFF [facility] Living Will/POAon 02-05-2024 Living Will/POA [id number] 6860#1.00TIFF [facility] Shelter Recordson 02-04 Shelter Records [id number]#1.00TIFF [facility] Ambulatory Visit Summaryon 0 02-04-2024 Ambulatory [...] EDT With: Kaushal JUDGE, Jose Lau Where: [facility] Medicine [place] Invalid Interpretation Code [address] [place] [address]- \.br\ Saturday 2:00 PM EDT \.br\ With: BRIGIDA WILLOUGHBY PA-C\.br\ Where: [facility] Patient Educationon 02-04-20 Patient Education [...] health care provider. General instructions ? Take xcoi-jfb-pvweefz and prescription medicines only as told by [...] yo (more content not included)... Normal [facility] Urology Office/Clinic Noteon 02-04-2024 Urology Office/Clinic Note [...] With When Contact Information [facility] [place] [address] Business (1) Additional Instructions: our microbiology professor will be contacting you for follow-up Patient Education Overactive Bladder, Adult Problem List/Past Medical History Ongoing (Idiopathic) normal pressure hydrocephalus ASCVD (arteriosclerotic cardiovascular disease) Benign hypertension with chronic kidney disease BMI 50.0-59.9, adult CKD (chronic kidney disease) stage 3, GFR 30-59 ml/min Confusion Diabetic retinopathy Essential tremor Frequent falls Frequent UTI Gait disorder Gross hematuria History of Uterine cancer HTN (hypertension) Hx of Guillain-Washburn syndrome Hypercholesterolem ia Insulin long-term use Major [...] History of l (more content not included)... [facility] Comment on above: Result Comment: Elec tronically Signed By: BRIGIDA WILLOUGHBY PA-C\.br\Date and Time Signed: 02/04/24 12:37 EST Consultation Noteon 01-23-20 Consultation Note [id number]#1.00TIFF [facility] Home Recordson 01-17 Shelter Records [id number]#1.00TIFF [facility] Consultation Noteon 01-13-20 Consultation Note [id number]#1.00TIFF [facility] Consultation Note [id number]#1.00TIFF [facility] Shelter Recordson 01-01 Shelter Records [id number]#1.00TIFF [facility] Shelter Recordson 12-30 Shelter Records [id number]#1.00TIFF Normal [facility] Shelter Recordson 12-25 Shelter Records [id number]#1.00TIFF Normal [facility] Consent for Procedure/Surger yon 12-23-2023 Consent for Procedure/Surgery [id number]#1.00TIFF Normal [facility] Consent for Treatmenton 12-03 Consent for Treatment [id number]#1.00TIFF [facility] Inpatient Patient Summaryon 12-23-2023 Inpatient Patient Summary [place] [id number] Clinical Summary Person Information Name: MALCOM KNOWLES Age: 68 Years : 1955 Sex: Female PCP: Jose Snow MD Marital Status: Race: White Ethnicity: Non- or Language: Irish Visit Id: Visit Reason: URINARY INCONTINENCE URETERAL STRICTURE RECURRENT UTI Speciality: Acuity: Enc Type: Outpatient Med Service: Surgery Arrival: 12/23/2023 14:07:21 Discharge: Dispo Type: Address: [address] [place] [id number] Provider Notes: Diagnosis: Problems Active (Idiopathic) normal pressure hydrocephalus Frequent falls Confusion Polyuria Urethral stricture UTI (urinary tract infection) UTI symptoms Gross hematuria Mixed incontinence Major depressive disorder with single episode, in full remission Stage 3b chronic kidney disease (CKD) Hx of Guillain-Washburn syndrome Morbid obesity Benign hypertension with chronic [...] 1 Table (more content not included)... Normal [facility] IntraOperative Documentson 0 12-23-2023 IntraOperative Documents [id number]#1.00TIFF Normal [facility] Main OR Intraoperative Recor don 12-23-2023 Main OR Intraoperative Record IntraOp Document Type FTURO Summary Primary Physician: Joe BOOTH MD Finalized Date/Time: 12/23/23 15:44:42 Pt. Name: MALCOM KNOWLES/Sex: 1955 Female Med Rec #: [id number] Physician: Joe BOOTH MD Financial #: [id number] Pt. Type: O Room/Bed: / Admit/Disch: 12/23/23 [...] Mini Braswell Role Performed Surgeon - Primary Gas Booster Engineer - Primary Scrub - Primary Time In [...] RAJESH Zambrano RN, Ruthann 12/23/23 15:[address] [facility] Main OR Preoperative Recordo n 12-23-2023 Main OR Preoperative Record Holding Area Document Type FTURO Summary Primary Physician: Joe BOOTH MD Finalized Date/Time: 12/23/23 14:30:39 Pt. Name: MALCOM KNOWLES /Sex: 1955 Female Med Rec #: [id number] Physician: Joe BOOTH MD Financial #: [id number] Pt. Type: O Room/Bed: / Admit/Disch: 12/23/23 [...] By: Michelle Bedolla RN 12/23/23 14:[address] [facility] Operative Reporton Operative Report Patient: MALCOM [...] The Urethra is: Tight, Tight at 18 Thai. The Bladder is: Normal, Trabeculated Moderate (2), No tumors, no stones. Moderate retained urine.. The ureteral orifices: Show efflux of clear urine. The Urethra was dilated to: 30 Thai w/ sounds. Devices Implanted: None. Removal: Cystoscope [...] available on her nursing facility formulary.. Normal [facility] Comment on above: Result Comment: Elec tronically Signed By: Joe BOOTH MD\.br\Date and Time Signed: 12/23/23 15:48 EST Outpatient Surgery Discharge Instructionon 12-23-2023 Outpatient Surgery Discharge Instruction [address] [address] Patient Discharge Instructions PERSON INFORMATION [...] Address: When: BR[address] [place] [id number] [facility] (1) Within 6 weeks Comments: Call for followup appointment, with a bladder scan for PVR at that visit. Monitor your urinary flow after the dilation of the channel today. Type Location Start Finish State URO Office Visit [facility] 02/04/2024 11:20 AM 02/04/2024 11:35 AM Confirmed [facility] 02/24/2024 10:15 AM 02/24/2024 10:25 AM Confirmed URO Office Visit [facility] 03/03/2024 2:00 PM 03/03/2024 2:15 PM Confirmed [...] to serve you. Thank you for choosing [facility] Normal [facility] Shelter Recordson 12-17 Shelter Records [id number]#1.00TIFF Normal [facility] Ambulatory Visit Summaryon 0 12-16-2023 Ambulatory Visit Summary MALCOM KNOWLES :1955 Visit Date:12/16/2023 Ambulatory Visit Instructions Your Diagnosis UTI (urinary tract infection) Polyuria Confusion Frequent falls (Idiopathic) normal pressure hydrocephalus BMI 50.0-59.9, adult Tests Performed Urnls Dip Stick Non-Auto w/o Micrscpy POC 06285 Your Care Team Attending Physician - Mariangel [...] Appointments Saturday 11:00 AM EST With: Where: [facility] Urology Surgical Services Saturday 3:00 PM EST With: Where: [facility] Surgical Services Saturday 10:15 AM EDT With: Kaushal JUDGE, Jose Lau Where: [facility] Normal [address] [place] [address] \.br\ Medications\.br\ What How Much When Why Instructions\.br\ New hydrocortisone-pramox ine topical (Proctofoam HC rectal foam) 1 Application By rectum 3 times a day UTI (urinary tract infection) BMI 50.0-59.9, adult [facility]\.br\ Unchanged acetaminophen (acetaminophen 500 mg Tab) [...] a day Duration: 10 Days Pickup at [facility]\.br\ Unchanged nitroglycerin (nitroglycerin 0.4 mg sublingual Tab) [...] daily as needed \.br\ Pharmacy Information\.br\ [facility] [place]: [address] [place], [place] [address] [phone]\.br\ Test Results\.br\ Urnls Dip Stick Non-Auto w/o Micrscpy POC 62186 (12/16/2023)\.br\ Bilirubin Urine Dipstick - Negative\.br\ Blood Urine Dipstick - 3+ Large\.br\ Glucose Urine Dipstick - Negative\.br\ Ketones Urine Dipstick - Negative\.br\ Leukocytes Urine Dipstick - 2+ Moderate\.br\ Nitrite Urine Dipstick - Negative\.br\ Protein Urine Dipstick - 3+ (300 mg/dl)\.br\ Specific Sears Urine Dipstick - >=1.030\.br\ Urine Appearance Urine [...] of Uterine cancer\.br\ HTN (hypertension)\.br\ Hx of Guillain-Washburn syndrome\.br\ Hypercholesterolemia\ .br\ Insulin long-term use\.br\ Major depressive disorder with single episode, in full remission\.br\ Migraines\.br\ Mixed incontinence\.br\ Morbid obesity\.br\ Obesity\.br\ Polyuria\.br\ Stage 3b chronic kidney disease (CKD)\.br\ Type 2 diabetes mellitus with chronic kidney disease\.br\ Type 2 diabetes mellitus with hypercholesterolemia\ .br\ Urethral stricture\.br\ UTI (urinary tract infection)\.br\ UTI symptoms\.br\ Vitamin D deficiency\.br\ [facility] Family Medicine Office/Clini c Noteon 12-16-2023 Family [...] let us know. will send referral for [facility] and [facility] for suspected hydrocephalus. Ordered: hydrocortisone-pra moxine topical, 1 teresa, Rectal, TID, 10 gram, Refill(s) 0, [facility], 160, cm, 12/16/23 10:57:00 EST, Height/Length Dosing, 130, kg, 12/16/23 10:53:00 EST, Weight Dosing [facility] External Ambulatory Referral Urnls Dip Stick Non-Auto w/o Micrscpy POC 74751 2. Polyuria (R35.89: Other polyuria) pt has had worsening polyuria. was told by ict analyst and Dr. Snow to see neurology for suspected normotensive hydrocephalus due to all of her symptoms. will refer to [facility] Ordered: [facility] Ambulatory Referral [facility] External Ambulatory Referral 3. Confusion (R41.0: Disorientation, unspecified) worsening confusion Ordered: [facility] External Ambulatory Referral [facility] External Ambulatory Referral 4. Frequent falls (R29.6: Repeated falls) pt has fallen 8 times in 3 weeks. daughter requesting referral to [facility] Ordered: [facility] External Ambulatory Referral [facility] External Ambulatory Referral 5. 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 will send referral to [facility]. was previously being see by Dr. Loredo in [place] Ordered: [facility] External Ambulatory Referral [facility] External Ambulatory Referral 6. BMI 50.0-59.9, adult (Z68.43: Body mass index [BMI] 50.0-59.9, adult) BMI education complete Ordered: hydrocortisone-pra moxine topical, 1 teresa, Rectal, TID, 10 gram, Refill(s) 0, [facility], 160, cm, 12/16/23 10:57:00 EST, Height/Length Dosing, 130, kg, 12/16/23 10:53:00 EST, Weight Dosing Urnls Dip Stick Non-Auto w/o Micrscpy POC 75600 Orders: nitrofurantoin, 100 mg = 1 cap(s), Oral, BID, X 10 day(s), # 20 cap(s), Refills(s) 0, Pharmacy: [facility], 160, cm, 12/16/23 10:57:00 EST, [...] of Uterine cancer HTN (hypertension) Hx of Guillain-Washburn syndrome Hypercholesterolem ia Insulin long-term use Major [...] mg= 1 tab (more content not included)... [facility] Comment on above: Result Comment: Elec tronically Signed By: Mariangel Peña\.br\Date and Time Signed: 12/16/23 12:09 EST Lab Reportson 12-16-2023 Lab Reports [id number]#1.00TIFF [facility] Lab Reports [id number]#1.00TIFF [facility] Physician Referralon 024 Physician Referral [id number]#1.00TIFF [facility] Physician Referral [id number]#1.00TIFF [facility] Shelter Recordson 12-09 Shelter Records [id number]#1.00TIFF Normal [facility] Shelter Recordson 12-05 Shelter Records [id number] [id number]#1.00TIFF Normal [facility] Transfer Inon 12-04-2023 Transfer In [id number]#1.00TIFF Normal [facility] Outside Mammographyon 2023 Outside Mammography [id number]#1.00TIFF [facility] RAD - Ultrasound Reporton RAD - Ultrasound Report [id number]#1.00TIFF [facility] Formson 11-22-2023 Forms [id number]#1.00TIFF [facility] Shelter Recordson 11-22 Shelter Records [id number] 1988#1.00TIFF [facility] Physician Referralon 023 Physician Referral [id number]#1.00TIFF [facility] Ambulatory Visit Summaryon 1 01-22-2023 Ambulatory Visit Summary MALCOM KNOWLES :1955 Visit Date:11/21/2023 Ambulatory Visit Instructions Your Diagnosis Mixed incontinence Gross hematuria UTI (urinary tract infection) Type 2 diabetes mellitus with chronic kidney disease Tests Performed Urnls Dip Stick Auto w/o Microscopy POC 00590 Your Care Team Attending Physician - FARTUN [...] EDT With: Kaushal JUDGE, Jose Lau Where: [facility] [place] Normal [address] [place] [address]- \.br\ You Need to Schedule the Following Appointments\.br\ Follow Up with FARTUN MCCOLLUM, SHARON VALENCIA When: \.br\ Where:\.br\ [address]\.br\ [place] [address]\.br\ [phone]\.br\ Medications\.br\ What How Much When Why Instructions\.br\ [...] if questions or concerns \.br\ Unchanged zinc [facility] Shelter Recordson 11-213 Shelter Records [id number]#1.00TIFF Normal [facility] Home Records [id number]#1.00TIFF Normal [facility] Patient Educationon 11-21-20 23 Patient Education [...] stimulation). ? For women, using a medical case manager to prevent urine leaks. This is a [...] urine. ? (more content not included)... Normal [facility] Urology Office/Clinic Noteon 11-21-2023 Urology Office/Clinic Note Chief Complaint Breastfeeding Educator referal for urinary incontinence HPI Staff New Pt. Referral per Chip Mcmullen due to urinary incontinence. BUN 24, Creatinine 1.5 done 10/01/23 [place] 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 Pt is here with her daughter (BRYCE) today. [facility]. Ambulates via wheelchair. Renal fxn: 10/01/23 - [...] and control BMs. Educational pamphlets provided. Ordered: 44335 Measure Post Void residual urine and/or bladder capacity by US- non-imaging Urnls Dip Stick Auto w/o Microscopy POC 69118 2. Urethral stricture (N35.919: Unspecified urethral stricture, [...] se OTC if available. -see #2 Ordered: 61121 Measure Post Void residual urine and/or bladder capacity by US- non-imaging Urnls Dip Stick Auto w/o Microscopy POC 86420 4. 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 Normal [facility] Comment on above: Result Comment: Elec [...] female. The patient received communication from the director social service, however, the director social service was uncertain about her responsibilities. The patient's [...] patient is under the care of an chimney sweeper. Her glycemic levels have decreased. The next appointment with the chimney sweeper is scheduled after a consultation with Dr. Zhu on 12/16/2023 for a 3-month follow-up. She is also under the care of an toy mechanic, an oncology transplant network manager, and a retina specialist due to an [...] She has previously expressed satisfaction with the [facility] environment. She only receives Tylenol with her [...] No other con (more content not included)... [facility] Comment on above: Result Comment: Elec tronically Signed By: Jose Snow MD\.br\Date and Time Signed: 11/20/23 17:33 EST\.br\Electronically Co-Signed By: Rebekah Ferraro\.br\Date and Time Co-Signed: 11/20/23 17:13 EST Shelter Recordson 11-07 Shelter Records [id number]#1.00TIFF [facility] Home Health Recordson 2022 Home Health Records [id number]#1.00TIFF [facility] Home Health Recordson 2022 Home Health Records [id number]#1.00TIFF [facility] Outside Mammographyon 2022 Outside Mammography [id number] [id number]#1.00TIFF [facility] Shelter Recordson 10-28 Shelter Records [id number] 114#1.00TIFF [facility] Interdisciplinary Note - Soc ial Workeron 10-16-2023 Interdisciplinary Note - Product Specialist This SW received a message regarding placement for patient at [facility] and daughter having questions. This SW made [...] that fantasma can stay in her current [place] apartment and that she does not have to move her to . SW's direct line was provided and SW encouraged her to reach out should she have needs or questions. SW will remain available. Normal [facility] Home Health Recordson 2022 Home Health Records [id number]#1.00TIFF Normal [facility] Auto Diffon 10-01-2023 Basophils/100 WBC (Bld) 1.0 % Normal 0.0-2.[address] [facility] Comment on above: Order Comment: Order Added by Discern Expert. Performed By: #### 2 162815, 271143814, 6497084, 2108204, 9166535, 39111408 ####[facility] [address] [place] [address] Basophils/Leukocyt es Auto (Bld) [Pure # fraction] 0.1 E9/L Normal 0.0-0.[address] [facility] Comment on above: Order Comment: Order Added by Discern Expert. Performed By: #### 2 574370, 370979851, 5561348, 6022843, 6524260, 87089879 ####[facility] [address] [place] [address] Eosinophils/100 WBC (Bld) 5.3 % Normal 0.0-8.[address] [facility] Comment on above: Order Comment: Order Added by Discern Expert. Performed By: #### 2 622256, 163134815, 0072048, 3814530, 5110804, 65463534 ####[facility] [address] [place] [address] Eosinophils/Leukoc ytes Auto (Bld) [Pure # fraction] 0.3 E9/L Normal 0.0-0.[address] [facility] Comment on above: Order Comment: Order Added by Discern Expert. Performed By: #### 2 217432, 863231511, 6624605, 9949516, 1629100, 67057626 ####[facility] [address] [place] [address] Lymphocytes/100 WBC (Bld) 37.2 % Normal 14.0-50.[address] [facility] Comment on above: Order Comment: Order Added by Discern Expert. Performed By: #### 2 894277, 494619342, 1684180, 7403609, 6707547, 69063891 ####[address] [address] Lymphocytes/Leukoc ytes Auto (Bld) [Pure # fraction] 2.0 E9/L Normal 1.0-4.[address] [facility] Comment on above: Order Comment: Order Added by Discern Expert. Performed By: #### 2 793522, 582278009, 8178648, 8004216, 8656249, 12934366 ####[address] [address] Monocytes/100 WBC (Bld) 10.7 % Normal 4.0-14.[address] [facility] Comment on above: Order Comment: Order Added by Discern Expert. Performed By: #### 2 512268, 458387307, 9739988, 9951592, 2180117, 01441231 ####[address] [address] Monocytes/Leukocyt es Auto (Bld) [Pure # fraction] 0.6 E9/L Normal 0.2-1.[address] [facility] Comment on above: Order Comment: Order Added by José Luis Expert. Performed By: #### 2 659862, 426761413, 8873440, 3952986, 7007897, 56966228 ####[address] [place] [address] Neutrophils/100 WBC (Bld) 45.8 % Normal 36.0-75.[address] [facility] Comment on above: Order Comment: Order Added by Discern Expert. Performed By: #### 2 653253, 515059219, 1138240, 5038931, 9435362, 06695212 ####[facility] [address] [place] [address] Neutrophils/Leukoc ytes Auto (Bld) [Pure # fraction] 2.5 E9/L Normal 2.0-7.[address] [facility] Comment on above: Order Comment: Order Added by Discern Expert. Performed By: #### 2 433172, 613558496, 4434885, 8863213, 3910996, 20850711 ####[address] [place] [address] CBC w/ Auto Diffon Erythrocyte distribution width (RBC) [Ratio] 15.1 % High 10.9-14.[address] [facility] Comment on above: Performed By: #### 2 061412, 551446691, 1859212, 0158382, 2693612, 20713777 ####[address] [place] [address] Hematocrit (Bld) [Volume fraction] 39.1 % Normal 34.0-46.[address] [facility] Comment on above: Performed By: #### 2 866055, 148400264, 2118274, 2142736, 7751264, 44413466 ####[address] [place] [address] Hemoglobin (Bld) [Mass/Vol] 13.1 g/dL Normal 12.0-16.[address] [facility] Comment on above: Performed By: #### 2 407187, 723621370, 5510108, 8637008, 8202714, 39025011 ####[address] [place] [address] MCH (RBC) [Entitic mass] 30.8 pg Normal 27.0-34.[address] [facility] Comment on above: Performed By: #### 2 457881, 740763724, 4649828, 3188171, 6989322, 21916308 ####[address] [place] [address] MCHC (RBC) [Mass/Vol] 33.5 g/dL Normal 31.4-36.[address] [facility] Comment on above: Performed By: #### 2 755650, 557622603, 2263166, 5447114, 9814854, 77343525 ####[address] [address] MCV (RBC) [Entitic vol] 92.0 fL Normal 80.0-100.[address] [facility] Comment on above: Performed By: #### 2 469457, 482780517, 4513682, 9143680, 5229837, 95638258 ####[address] [address] Platelet mean volume (Bld) [Entitic vol] 9.2 fL Normal 6.4-10.[address] [facility] Comment on above: Performed By: #### 2 863093, 439959309, 7386079, 0177933, 7003688, 57975459 ####[address] [address] Platelets (Bld) [#/Vol] 205.0 E9/L Normal 150.0-500.[address] [facility] Comment on above: Performed By: #### 2 549114, 071343336, 4098387, 1657250, 1533495, 06111834 ####[address] [address] RBC (Bld) [#/Vol] 4.2 E12/L Low 4.3-5.[address] [facility] Comment on above: Performed By: #### 2 063877, 153586905, 8699435, 0386375, 6203873, 47723471 ####[address] [address] WBC corrected for nucl RBC Auto (Bld) [#/Vol] 5.4 E9/L Normal 4.0-11.[address] [facility] Comment on above: Performed By: #### 2 728052, 733514731, 8139246, 3496467, 3550954, 20264356 ####[facility] [address] [place] [address] CHEMISTRYOrdered By: Peace guillaume on 10-01-2023 Albumin [...] clinical context for interpretation. U Prot/Creat Ratio RUST Invalid Interpretation Code 0.00 - 200.00 [facility] Remisol CHEMISTRYOrdered By: SYSTEM SYSTEM on 10-01-2023 Albumin [Mass/Vol] 3.8 g/dL Normal 3.3 - 5.0 gm/dL [facility] Remisol Albumin/Globulin [Mass ratio] [...] rate/Area] 37 mL/min/1.73 m2 Low >=59mL/min/1.73 m2 [facility] Chem S Comment on above: Interpretive Data: [...] g/dL Normal 6.0 - 7.8 gm/dL F [facility] Remisol Sodium [Moles/Vol] 140 mmol/L Normal 135 - 145 mmol/L [facility] Triglyceride [Mass/Vol] 77 mg/dL Normal <=149mg/dL [facility] Urea nitrogen [Mass/Vol] 24 mg/dL High 5 - 21 mg/dL [facility] Remisol Urea nitrogen/Creatinin e [Mass ratio] 16 mg/mg Normal 10 - 20 [facility] Remisol CHEMISTRYOrdered By: Denisha Carlin on 10-01-2023 HbA1c (Bld) [Mass fraction] 8.2 % High <=5.9% [facility] ChemAutoSS CMPon 10-01-2023 Albumin [Mass/Vol] 3.8 g/dL Normal 3.3-5.[address] [facility] Comment on above: Performed By: #### 2 595396, 223188412, 1835911, 7042085, 7370036, 28635521 ####[facility] [address] [place] [address] Albumin/Globulin (S) [Mass conc ratio] 1.1 Normal 1.1-2.[address] [facility] Comment on above: Performed By: #### 2 296496, 511507502, 1397088, 7450798, 2469038, 37654405 ####[facility] [address] [place] [address] ALP [Catalytic activity/Vol] 61 Int._Unit/L Normal 21-[address] [facility] Comment on above: Performed By: #### 2 485648, 476711662, 1645642, 3544860, 2623058, 95860032 ####[facility] [address] [place] [address] ALT No additional P-5'-P [Catalytic activity/Vol] 26 Int._Unit/L Normal 6-[address] [facility] Comment on above: Performed By: #### 2 934289, 176172811, 8378802, 3037185, 4076691, 83605865 ####[facility] [address] [place] [address] Anion gap [Moles/Vol] 10 mmol/L Normal 6-[address] [facility] Comment on above: Performed By: #### 2 267164, 188327016, 2645570, 0242556, 8369324, 50643071 ####[facility] [address] [place] [address] AST [Catalytic activity/Vol] 31 Int._Unit/L Normal 5-[address] [facility] Comment on above: Performed By: #### 2 463671, 039112663, 9554734, 9681530, 7694342, 02068782 ####[facility] [address] [place] [address] Bilirubin [Mass/Vol] 1.1 mg/dL Normal 0.0-1.[address] [facility] Comment on above: Performed By: #### 2 202163, 498812856, 2134428, 6855126, 2561148, 16145888 ####[facility] [address] [place] [address] Calcium [Mass/Vol] 9.4 mg/dL Normal 8.9-11.[address] [facility] Comment on above: Performed By: #### 2 094184, 924974716, 6899501, 0835121, 6816544, 64749242 ####[facility] [address] [place] [address] Chloride [Moles/Vol] 104 mmol/L Normal 101-[address] [facility] Comment on above: Performed By: #### 2 139893, 104653911, 3404880, 5011731, 7888131, 33922717 ####[facility] [address] [place] [address] CO2 [Moles/Vol] 30 mmol/L Normal 21-31 [facility] Comment on above: Performed By: #### 2 280972, 041455720, 3102630, 9186861, 2823147, 64978271 ####[facility] [address] [place] [address] Creatinine [Mass/Vol] 1.5 mg/dL High 0.5-1.[address] [facility] Comment on above: Performed By: #### 2 935044, 472824607, 3759756, 5469238, 4023264, 69733277 ####[facility] [address] [place] [address] Globulin (S) [Mass/Vol] 3.6 g/dL Normal 1.4-4.[address] [facility] Comment on above: Performed By: #### 2 599023, 734082851, 5142231, 5533864, 2722501, 34855523 ####[facility] [address] [place] [address] Glucose [Mass/Vol] 176 mg/dL Normal 55-[address] [facility] Comment on above: Result Comment: If t his glucose result represents a fasting glucose, interpretation should refer to the following reference range: 55-99 mg/dL Performed By: #### 2 399201, 190491272, 7720918, 0057659, 0575886, 96845070 ####[facility] [address] [place] [address] Potassium [Moles/Vol] 3.7 mmol/L Normal 3.5-5.[address] [facility] Comment on above: Performed By: #### 2 901199, 449090784, 8122242, 8609986, 8214878, 17530033 ####[facility] [address] [place] [address] Protein [Mass/Vol] 7.4 g/dL Normal 6.0-7.[address] [facility] Comment on above: Performed By: #### 2 562714, 058296461, 0384491, 8731710, 1566679, 38412210 ####[facility] [address] [place] [address] Sodium [Moles/Vol] 140 mmol/L Normal 135-[address] [facility] Comment on above: Performed By: #### 2 806743, 195043319, 5732433, 5756338, 9863072, 54499576 ####[facility] [address] [place] [address] Urea nitrogen [Mass/Vol] 24 mg/dL High 5-[address] [facility] Comment on above: Performed By: #### 2 858922, 194634514, 3369357, 8497255, 4776508, 37334004 ####[facility] [address] [place] [address] Urea nitrogen/Creatinin e [Mass ratio] 16 No Units Normal 10-[address] [facility] Comment on above: Performed By: #### 2 198174, 539758397, 5851809, 0548509, 5355982, 07852099 ####[facility] [address] [place] [address] Consent for Treatmenton 09-03 Consent for Treatment [id number]#1.00TIFF Normal [facility] HEMATOLOGYOrdered By: SYSTEM SYSTEM on 10-01-2023 [...] 2.5 E9/L Normal 2.0 - 7.5 E9/L [facility] HemeAutoSS HEMATOLOGYOrdered By: Yamilet alas on 10-01-2023 [...] 5.4 E9/L Normal 4.0 - 11.0 E9/L [facility] HemeAutoSS TguB8bti 10-01-2023 HbA1c (Bld) [Mass fraction] 8.2 % High <=5.[address] [facility] Comment on above: Performed By: #### 2 110532, 611421281, 2547424, 7039071, 4023379, 24836843 ####[facility] [address] [place] [address] Lipid Panelon 10-01-2023 Cholesterol [Mass/Vol] 127 mg/dL Normal 120-[address] [facility] Comment on above: Performed By: #### 2 175686, 793074421, 7101801, 6839596, 8747933, 82960973 ####[facility] [address] [place] [address] Cholesterol in HDL [Mass/Vol] 58 mg/dL Invalid Interpretation Code [facility] Comment on above: Result Comment: HDL > or equal to 60 mg/dL: Low cardiovascular risk HDL < 40 mg/dL : High cardiovascular risk Performed By: #### 2 378615, 598929859, 1099229, 8292648, 8032010, 61870897 ####[facility] [address] [place] [address] Cholesterol in LDL [Mass/Vol] 58 mg/dL Normal <=[address] [facility] Comment on above: Performed By: #### 2 253280, 430442206, 7714278, 9419040, 8691867, 08829963 ####[facility] [address] [place] [address] Cholesterol in VLDL [Mass/Vol] 15 mg/dL Normal 7-[address] [facility] Comment on above: Performed By: #### 2 509668, 250771681, 2633635, 5995594, 3177633, 26150952 ####[facility] [address] [place] [address] Triglyceride [Mass/Vol] 77 mg/dL Normal <=[address] [facility] Comment on above: Performed By: #### 2 437840, 717993980, 0727287, 5851358, 4240677, 68905958 ####[facility] [address] [place] [address] Retail - Clinical Noteon Retail - Clinical Note [id number] 4633#1.00TIFF Normal [facility] U Microalbon 10-01-2023 Albumin DL <= 20 mg/L (U) [Mass/Vol] 9.9 microgram/mL Normal 0.0-19.[address] [facility] Comment on above: Performed By: #### 1 293595039, 83899402 ####[facility] [address] [place] [address] U Protein/Creat Ratioon 10-3 Albumin Elph (U) [Mass fraction] <6.0 Invalid Interpretation Code [facility] Comment on above: Result Comment: The reference range and other method performance specifications have not been established for this test; results should be integrated into the clinical context for interpretation. Performed By: #### 1 210049889, 53460985 ####[facility] [address] [place] [address] Creatinine (U) [Mass/Vol] 28.4 mg/dL Invalid Interpretation Code [facility] Comment on above: Result Comment: The reference range and other method performance specifications have not been established for this test; results should be integrated into the clinical context for interpretation. Performed By: #### 1 046839828, 36778122 ####[facility] [address] [place] [address] U Prot/Creat Ratio RUST Invalid Interpretation Code .00-200.[address] [facility] Comment on above: Performed By: #### 1 509741395, 30967910 ####[facility] [address] [place] [address] eGFRon 10-01-2023 GFR/1.73 sq M.predicted among non-blacks MDRD (S/P/Bld) [Vol rate/Area] 37 mL/min/1.73 m2 Low >=[address] [facility] Comment on above: Order Comment: Order added by Discern Expert. Result Comment: [employer] maco kidney disease could be indicated at eGFR's of less than 60 mL/min/1.73m2. Kidney failure is indicated at less than 15 mL/min/1.73m2. Performed By: #### 2 457183, 675485622, 5176112, 9827816, 7721393, 20261867 ####[address] [place] [address] Interdisciplinary Note - Soc ial Workeron 09-23-2023 Interdisciplinary Note - Product Specialist Consult received d/t pt's dx of DM. Patient requires bariatric equipment. Upon review of chart notes, patient resides at [facility]. Patient has been evaluated by [facility] for an appropriate wheelchair. If further needs, or DME are required conversation with staff at [facility] should be had for appropriate planning and continuity of care. SW will remain available. Normal [facility] Retail - Clinical Noteon Retail - Clinical Note [id number] 3082#1.00TIFF Normal [facility] Consultation Noteon 09-18-20 Consultation Note [id number]#1.00TIFF Normal [facility] Family Medicine Office/Clini c Noteon 09-17-2023 Family Medicine Office/Clinic Note HPI Staff Malcom is a 67 year old female presenting to [facility] care Resides at the [facility] Needs a face to face for a [...] was in an assisted living facility in [place] where she received intensive physical therapy. However, [...] to 6500 g a month and other wjvo-iaz-gdgylaa medications. However, the daughter states that this is not sustainable and is considering finding a cheaper living arrangement or moving the patient to a chcf. She has expressed interest in losing weight. [...] as before. 4. Insulin long-term use (Z79.4: custodial (current) use of insulin) Discussed the need of having the patient increase the medication, but we will have Dr. Zhu adjust the medication. 5. BMI 50.0-59.9, adult (Z68.43: Body mass index [BMI] 50.0-59.9, adult) 6. Morbid obesi (more content not included)... Normal [facility] Comment on above: Result Comment: Elec tronically Signed By: Jose Snow MD\.br\Date and Time Signed: 09/17/23 07:26 EDT\.br\Electronically Co-Signed By: Romana Crouch\.br\Date and Time Co-Signed: 09/09/23 18:25 EDT Shelter Recordson 09-11 Shelter Records [id number]#1.00TIFF [facility] Ambulatory Visit Summaryon 1 Ambulatory Visit Summary MALCOM KNOWLES :1955 Visit Date:09/09/2023 Ambulatory Visit Instructions Your Diagnosis Type 2 diabetes mellitus with chronic kidney disease Type 2 diabetes mellitus with hypercholesterolem ia Benign hypertension with chronic kidney disease Insulin long-term use BMI 50.0-59.9, adult Morbid obesity Major depression in full remission CKD (chronic kidney disease) stage 3, GFR 30-59 ml/min Hx of Guillain-Washburn syndrome Gait disorder History of Uterine cancer [...] Prescription (Freestyle Bang 2 sensors) Misc Prescription ([employer]style Bang 2 system) Misc Prescription (Home health [...] BRIGIDA WILLOUGHBY PA-C Where: [facility] Caity Invalid Interpretation Code Type 2 diabetes mellitus with hypercholesterolemia [facility] Pre-Visit Planningon 023 Pre-Visit Planning --- From: Clifton DE LOS SANTOS, Luann To: Jose Snow MD; Sent: 09/06/2023 10:38:47 EDT Subject: Pre-Visit Planning Due Date/Time: 09/06/2023 10:38:00 EDT Caller Name: MALCOM KNOWLES; Caller Number: , In Dr. Snow, *Based on your response below, [...] feel free to contact me at extension [phone]. Thank you! DENYS Melchor, RN, CCM, CCDS, CCDS-O Invalid Interpretation Code [address] [facility] Pre-Visit Planning --- From: Luann Lazo [...] BMI of 52.32 on 07/15/2023. The [employer] defines obesity as morbid if [...] feel free to contact me at extension 2015. Thank you! DENYS Melchor, RN, CCM, CCDS, CCDS-O Invalid Interpretation Code [address] [facility] Shelter Recordson 09-04 Shelter Records [id number] 68CC#1.00CD:[address] [facility] Shelter Recordson 09-03 Shelter Records [id number]#1.00CD:[address] [facility] Shelter Recordson 09-02 Shelter Records [id number]#1.00CD:[address] [facility] Family Medicine Office/Clini c Noteon 08-23-2023 [...] basaglar to 12 untis. will refer to chimney sweeper. daughter will call with where she wants [...] and treat better fitting wheel chair, Supply [facility] External Ambulatory Referral 2. BMI 50.0-59.9, adult (Z68.43: Body mass index [BMI] 50.0-59.9, adult) BMI education complete Ordered: [facility] External Ambulatory Referral 3. Non-smoker (Z78.9: Other specified health status) continue not smoking Ordered: [facility] External Ambulatory Referral custodial (current) use of insulin (Z79.4: superintendent container terminal (current) use of insulin) referral to chimney sweeper will be sent Ordered: [facility] External Ambulatory Referral Follow-up No qualifying data [...] Immunizations Vaccine Date Status Comments SARS-CoV-2 (COVID-19) mRNAMUL.[id number] 09/13/2022 R (more content not included)... Normal [facility] Comment on above: Result Comment: Elec tronically Signed By: Mariangel Peña\.br\Date and Time Signed: 08/23/23 09:36 EDT Shelter Recordson 08-21 Shelter Records [id number] A06#1.00CD:127 [facility] Shelter Recordson 08-20 Shelter Records [id number]#1.00CD:127 [facility] Shelter Recordson 08-15 Shelter Records [id number] E33E#1.00CD:127 [facility] Retail - Clinical Noteon Retail - Clinical Note [id number]#1.00CD:[address] [facility] Urine Cultureon 07-28-2023 Bacteria identified Cx Nom (U) <9,000 colonies/ml mixed bacterial skin contaminants 2 Days PERFORMED BY: [address] [address] PATHOLOGIST WELDING MACHINE OPERATOR GAS SUZY FLORES M.D. [facility] Comment on above: Performed By: #### C UU #### [address] [address] [facility] Physician Referralon 023 Physician Referral [id number]#1.00CD:[address] [facility] Shelter Recordson 07-23 Shelter Records [id number]#1.00CD:[address] [facility] Shelter Recordson 07-18 Shelter Records [id number] [id number]#1.00CD:[address] [facility] Shelter Records [id number]#1.00CD:[address] [facility] Retail - Clinical Noteon Retail - Clinical Note [id number]#1.00CD:127 [facility] Shelter Recordson 07-16 Shelter Records [id number]#1.00CD:[address] [facility] Physician Referralon 023 Physician Referral [id number]#1.00CD:[address] [facility] Retail - Clinical Noteon Retail - Clinical Note [id number]#1.00CD:127 [facility] Ambulatory Visit Summaryon 0 07-15-2023 Ambulatory Visit Summary MALCOM KNOWLES :1955 Visit Date:07/15/2023 Ambulatory Visit Instructions Your Diagnosis Insulin dependent type 2 diabetes mellitus BMI 50.0-59.9, adult Non-smoker custodial (current) use of insulin Your Care Team [...] PM EDT With: Jose Snow MD Where: [facility] Normal [address] [place] [address]- \.br\ Medications\.br\ What How Much When Why [...] mellitus\.br\ Obesity\.br\ UTI (urinary tract infection)\.br\ \.br\ [facility] Patient Correspondenceon Patient Correspondence [id number]#1.00CD:[address] [facility] XR shoulder LT min 2V*on XR shoulder LT min 2V* [facility] Main [place] [address] [place] [address] XRay Report Signed Patient: Malcom Knowles MR#: [id number] : 1955 Acct:[id number] Age/Sex: 67 / F ADM Date: 07/01/23 Loc: [facility] Room: Type: [facility] Attending Dr: Lizandro Martins MD Copies to: [...] Aj Baker M.D.07/01/2023 2:36 PM Dictation Location: [place] [address] Transcribed By: [facility] 07/01/23 1436 Dictated By: Aj Baker II, MD 07/01/23 1434 Signed By: 07/01/23 1436 Normal [facility] XR shoulder LT min 2V* [facility] [employer] Other XR shoulder LT min 2V* [facility] [employer] Other XR shoulder LT min 2V* [address] [place] [address] [employer] Other XR shoulder LT min 2V* [place] [address] [employer] Other XR shoulder LT min 2V* XRay Report [employer] Other XR shoulder LT min 2V* Signed [employer] Other XR shoulder LT min 2V* Patient: Malcom Knowles MR#: [id number] [employer] Other XR shoulder LT min 2V* [id number] [employer] Other XR shoulder LT min 2V* : 1955 Acct:[id number] [employer] Other XR shoulder LT min 2V* Age/Sex: 67 / F ADM Date: 07/01/23 [employer] Other XR shoulder LT min 2V* Loc: [facility] Room: Type: [facility] [employer] Other XR shoulder LT min 2V* Attending Dr: Lizandro Martins MD [employer] Other XR shoulder LT min 2V* Copies to: Lizandro Martins MD [employer] Other XR shoulder LT min 2V* Ordering Provider: Lizandro Martins MD [employer] Other XR shoulder LT min 2V* Date of Service: 07/01/23 [employer] Other XR shoulder LT min 2V* XR/XR shoulder LT min 2V*: Acute pain of left shoulder [employer] Other XR shoulder LT min 2V* XR shoulder LT min 2V* 07/01/2023 11:10 AM [employer] Other XR shoulder LT min 2V* SIGNS AND SYMPTOMS: Left shoulder pain with decreased range of motion [employer] Other XR shoulder LT min 2V* PROTOCOL: Frontal, Grashey, scapular Y views of the left shoulder [employer] Other XR shoulder LT min 2V* COMPARISON: None [employer] Other XR shoulder LT min 2V* FINDINGS: [employer] Other XR shoulder LT min 2V* There is mild hypertrophy of the acromioclavicular joint. There is narrowing of the glenohumeral [employer] Other XR shoulder LT min 2V* joint. There is no fracture or dislocation. The visualized left hemithorax is grossly intact. [employer] Other XR shoulder LT min 2V* XR/XR shoulder LT min 2V* [employer] Other XR shoulder LT min 2V* IMPRESSION: [employer] Other XR shoulder LT min 2V* No fracture or dislocation. [employer] Other XR shoulder LT min 2V* Degenerative changes are noted in the left shoulder, as above. [employer] Other XR shoulder LT min 2V* Impression dictated by: Aj Baker M.D.07/01/2023 2:36 PM [employer] Other XR shoulder LT min 2V* Dictation Location: [place] [address] [employer] Other XR shoulder LT min 2V* Transcribed By: FLORES 07/01/23 [facility] [employer] Other XR shoulder LT min 2V* Dictated By: Aj Baker II, MD 07/01/23 [facility] [employer] Other XR shoulder LT min 2V* Signed By: [employer] Other XR shoulder LT min 2V* 07/01/23 [facility] [employer] Other Shelter Recordson 05-23 Shelter Records [id number]#1.00CD:127 [facility] Shelter Recordson 05-22 Shelter Records [id number]#1.00CD:127 [facility] Comment on above: Other Comment: PRINT ED FOR PROVIDER SIGNATURE.NDW C Urineon 05-18-2023 Bacteria identified Cx Nom (U) Microbiology PROCEDURE: Urine Culture [R1] SOURCE: U CleanCatch BODY SITE: COLLECTED DATE/TIME: 05/16/2023 15:19 EDT RECEIVED DATE/TIME: 05/16/2023 17:37 EDT START DATE/TIME: 05/16/2023 17:38 EDT FREE TEXT SOURCE: Adrian CRTTS, Mariangel L Adrian CRTTS, Mariangel L FINAL REPORTS Final Report [] Verified Date/Time: 05/18/2023 08:48 EDT 5,000 cfu/ml Mixed skin contaminants Performing Locations R1: This test was performed at: [employer] [facility], [address] [place] [address], [facility]- , , [facility] Comment on above: Performed By: #### 2 [id number] ####[facility] [address] [place] [address] Shelter Recordson 05-17 Shelter Records [id number] 115#1.00CD:127 [facility] Ambulatory Visit Summaryon 0 05-16-2023 Ambulatory [...] tract infection) Duration: [address] [facility] [place] Unchanged fluconazole (Diflucan 150 mg Tab) 1 Tablets By Mouth Once UTI (urinary tract infection) Unchanged Misc Prescription (Misc DME Prescription) See instructions BD ultra fine pen needles 31G X 3/ 16. Use to inject insulin as directed. Dx E10.[address] [facility] [place]: [address] [place] [address] [phone] Allergies sulfa drugs (Unknown) Problems Ongoing - Any problem that you are currently receiving treatment for. UTI (urinary tract infection) Normal [facility] Family Medicine Office/Clini c Noteon 05-16-2023 Family Medicine Office/Clinic Note Chief Complaint pt here to establish care, UTI symptoms HPI Staff Malcom is a 67 year old female presenting to Establish care Establish Care: History: Any previous diagnosis: Diabetes, HTN, Frequent falls, gerd, depression, syncope History of seeing any specialist: Dr Loredo Neurologist in [place], Dr Alegria , Cardiolgoy , Urolgosit When [...] She lives in an assisted living at [facility]. They dipped her urine. see results above. [...] day(s), # 14 tab(s), Refills(s) 0, [facility] [place] [facility], cm, 05/16/23 14:43:00 EDT, Height/Length [...] Immunizations Vaccine Date Status Comments SARS-CoV-2 (COVID-19) mRNAMUL.ORD![id number] 09/13/2022 Recorded SARS-CoV-2 (COVID-19) mRNA-1273 vaccine 01/13/2022 Recorded 2023-05-16: [id number] SARS-CoV-2 (COVID-19) mRNA-1273 vaccine 08/09/2021 Recorded SARS-CoV-2 (COVID-19) mRNA-1273 vaccine 07/12/2021 Recorded pneumococcal 13-valent vaccine 10/18/[address] [facility] Comment on above: Result Comment: Elec tronically Signed By: Mariangel Peña\.br\Date and Time Signed: 05/16/23 15:28 EDT ECHOCARDIO M/2D COMPLETEon 0 05-01-2023 ECHOCARDIO M/2D COMPLETE Patient: MALCOM KNOWLES Exam Date: 05/01/2023 : 1955 Gender:F Ordering : DR. AJ YOUNG M.D. Admission #: [id number] Family : Order #: [id number] CLICK HERE TO VIEW EXAM ECHOCARDIOGRAM REPORT [...] Franco M.D. on 05/01/2023 at 18:18 Normal [facility] Lab Reportson 04-24-2023 Lab Reports [id number]#1.00CD:[address] [facility] Lab Reportson 04-17-2023 Lab Reports [id number] [facility]#1.00CD:127 Normal [facility] Office Visit (Cardiology)on 04-04-2023 Follow-up visit Diagnoses/Problems [...] Weight Tips; Status:Complete - Retrospective Authorization; Done: [id number] Some eating tips that can help you lose weight.; Status:Complete - Retrospective Authorization; Done: [id number] SocHx: Never a smoker Tobacco Use Screening; Status:Complete; Done: [id number] Patient Instructions Please bring all medicines, vitamins, [...] 12:01:30 PM (more content not included)... Normal [facility] Tobacco Screening.on 023 Adult depression screening assessment No [facility] [employer] DO Work Phone: Fall risk assessment b) One or more falls in the last year [facility] [employer] DO Work Phone: Tobacco use status CPHS b) No [facility] [employer] DO Work Phone: Lab Reportson 04-01-2023 Lab Reports [id number]#1.00CD:[address] [facility] Shelter Recordson 03-20 Shelter Records [id number]#1.00CD:[address] [facility] CT CSPINE WO CONon 3 CT [...] THONY JOHNSTON Date: 2023-01-24 19:08 Normal [facility] CT HEAD WO CONon 01-24-2023 CT HEAD [...] FLORIN ZHONG Date: 2023-01-24 18:51 Normal [facility] XR SHOULDER LT 2V or >on XR SHOULDER LT 2V or > EXAM: XR SHOULDER LT 2V or > HISTORY: Unspecified fall COMPARISON: Shoulder x-rays 08/27/2022 TECHNIQUE: 3 views FINDINGS: IMPRESSION: No visualized fracture, dislocation, subluxation or osseous lesion. Moderate degenerative changes of the acromial clinically joint. Electronically authenticated by: NIALL CELIS Date: 2023-01-24 18:58 Normal [facility] MRI BRAIN WO CONon 3 MRI BRAIN [...] ADAMS RAGSDALE Date: 2023-01-18 15:07 Normal [facility] US CAROTID ART BILon 023 US CAROTID [...] ADAMS RAGSDALE Date: 2023-01-18 14:45 Normal [facility] CBC AUTO DIFFon 12-26-2022 BASO # 0.1 103/ul Normal 0.0-0.1 [facility] Comment on above: Performed By: #### A CET, CMP #### [facility] [address] [place] [address] Dr. Gilberto Ocampo Basophils/100 WBC (Bld) 0.8 % Normal 0.2-2.0 [facility] Comment on above: Performed By: #### A CET, CMP #### [facility] [address] [place] [address] Dr. Gilberto Ocampo EO # 0.6 103/ul Normal 0.0-0.7 [facility] Comment on above: Performed By: #### A CET, CMP #### [facility] [address] [place] [address] Dr. Gilberto Ocampo Eosinophils/100 WBC (Bld) 7.7 % Critically high 0.9-7.0 [facility] Comment on above: Performed By: #### A CET, CMP #### [facility] [address] [place] [address] Dr. Gilberto Ocampo Erythrocyte distribution width (RBC) [Ratio] 14.0 % Normal 11.0-15.0 [facility] Comment on above: Performed By: #### A CET, CMP #### [facility] [address] [place] [address] Dr. Gilberto Ocampo Hematocrit (Bld) [Volume fraction] 39.0 % Normal 36.0-48.0 [facility] Comment on above: Performed By: #### A CET, CMP #### [facility] [address] [place] [address] Dr. Gilberto Ocampo Hemoglobin (Bld) [Mass/Vol] 11.8 g/dL Critically low 12.0-16.0 [facility] Comment on above: Performed By: #### A CET, CMP #### [facility] [address] [place] [address] Dr. Gilberto Ocampo IG # 0.02 10e3/ul Normal 0.00-0.03 [facility] Comment on above: Performed By: #### A CET, CMP #### [facility] [address] [place] [address] Dr. Gilberto Ocampo IG % 0.3 % Normal 0.0-0.5 [facility] Comment on above: Performed By: #### A CET, CMP #### [facility] [address] [place] [address] [address] Gilberto Ocampo LYMPH # 2.1 103/ul Normal 1.2-3.8 [facility] Comment on above: Performed By: #### A CET, CMP #### [facility] [address] [place] [address] [address] Gilberto Ocampo Lymphocytes/100 WBC (Bld) 29.2 % Normal 20.5-60.0 [facility] Comment on above: Performed By: #### A CET, CMP #### [facility] [address] [place] [address] [address] Gilberto Ocampo MANUAL DIFF REQ NO Normal [facility] Comment on above: Performed By: #### A CET, CMP #### [facility] [address] [place] [address] Dr. Gilberto Ocampo MCH (RBC) [Entitic mass] 29.2 pg Normal 26.7-34.0 [facility] Comment on above: Performed By: #### A CET, CMP #### [facility] [address] [place] [address] [address] Gilberto Ocampo MCHC (RBC) [Mass/Vol] 30.3 g/dL Normal 29.9-35.2 [facility] Comment on above: Performed By: #### A CET, CMP #### [facility] [address] [place] [address] [address] Gilberto Ocampo MCV (RBC) [Entitic vol] 96.5 fL Normal 81.0-99.0 [facility] Comment on above: Performed By: #### A CET, CMP #### [facility] [address] [place] [address] [address] Gilberto Ocampo MONO # 0.6 103/ul Normal 0.3-0.8 [facility] Comment on above: Performed By: #### A CET, CMP #### [facility] [address] [place] [address] [address] Gilberto Ocampo Monocytes/100 WBC (Bld) 9.0 % Normal 1.7-12.0 [facility] Comment on above: Performed By: #### A CET, CMP #### [facility] [address] [place] [address] Dr. Gilberto Ocampo NEUT # 3.8 103/ul Normal 1.4-6.5 [facility] Comment on above: Performed By: #### A CET, CMP #### [facility] [address] [place] [address] Dr. Gilberto Ocampo Neutrophils/100 WBC (Bld) 53.0 % Normal 43.0-75.0 [facility] Comment on above: Performed By: #### A CET, CMP #### [facility] [address] [place] [address] Dr. Gilberto Ocampo Platelet mean volume (Bld) [Entitic vol] 11.9 fL Normal 9.5-13.5 [facility] Comment on above: Performed By: #### A CET, CMP #### [facility] [address] [place] [address] Dr. Gilberto Ocampo PLT 209 103/ul Normal 150-450 [facility] Comment on above: Performed By: #### A CET, CMP #### [facility] [address] [place] [address] Dr. Gilberto Ocampo RBC 4.04 106/ul Critically low 4.20-5.40 [facility] Comment on above: Performed By: #### A CET, CMP #### [facility] [address] [place] [address] Dr. Gilberto Ocampo WBC 7.1 103/ul Normal 4.0-11.0 [facility] Comment on above: Performed By: #### A CET, CMP #### [facility] [address] [place] [address] Dr. Gilberto Ocampo GLYCOHEMOGLOBIN A1Con 2022 [facility] RECOMMENDATION SEE BELOW Normal [facility] Comment on above: Result Comment: ADA RECOMMENDED LIMIT 4.0 - 6.0 [facility] THERAPEUTIC TARGET < 7.0 ACTION SUGGESTED > 7.0 Performed By: #### A 1C #### [facility] [address] [place] [address] Dr. Gilberto Ocampo Glucose [Mass/Vol] 189 mg/dL Normal [facility] Comment on above: Performed By: #### A 1C #### [facility] [address] [place] [address] Dr. Gilberto Ocampo HbA1c (Bld) [Mass fraction] 8.2 % Critically high 4.5-6.2 [facility] Comment on above: Performed By: #### A 1C #### [facility] [address] [place] [address] Dr. Gilberto Ocampo PROF 14(COMP METB)on 023 Albumin [Mass/Vol] 3.0 g/dL Critically low 3.4-5.0 [facility] Comment on above: Performed By: #### C MP #### [facility] [address] [place] [address] Dr. Gilberto Ocampo Albumin/Globulin [Mass ratio] 0.8 {ratio} Normal [facility] Comment on above: Performed By: #### C MP #### [facility] [address] [place] [address] Dr. Gilberto Ocampo ALP [Catalytic activity/Vol] 89 U/L Normal 46-116 [facility] Comment on above: Performed By: #### C MP #### [facility] [address] [place] [address] Dr. Gilberto Ocampo ALT [Catalytic activity/Vol] 22 U/L Normal 14-59 [facility] Comment on above: Performed By: #### C MP #### [facility] [address] [place] [address] Dr. Gilberto Ocampo Anion gap [Moles/Vol] 12.4 mmol/L Normal [facility] Comment on above: Performed By: #### C MP #### [facility] [address] [place] [address] Dr. Gilberto Ocampo AST [Catalytic activity/Vol] 19 U/L Normal 15-37 [facility] Comment on above: Performed By: #### C MP #### [facility] [address] [place] [address] Dr. Gilberto Ocampo Bilirubin [Mass/Vol] 0.6 mg/dL Normal 0.2-1.0 [facility] Comment on above: Performed By: #### C MP #### [facility] [address] [place] [address] [address] Gilberto Ocampo Calcium [Mass/Vol] 8.9 mg/dL Normal 8.5-10.1 [facility] Comment on above: Performed By: #### C MP #### [facility] [address] [place] [address] [address] Gilberto Ocampo Chloride [Moles/Vol] 103 mmol/L Normal 98-107 [facility] Comment on above: Performed By: #### C MP #### [facility] [address] [place] [address] Dr. Gilberto Oacmpo CO2 [Moles/Vol] 28.5 mmol/L Normal 21.0-32.0 [facility] Comment on above: Performed By: #### C MP #### [facility] [address] [place] [address] [address] Gilberto Ocampo Creatinine [Mass/Vol] 1.52 mg/dL Critically high 0.55-1.02 [facility] Comment on above: Performed By: #### C MP #### [facility] [address] [place] [address] Dr. Gilberto Ocampo EGFR-AF TURKMEN 41 mL/min/1.73m2 Critically low >=60 [facility] Comment on above: Performed By: #### C MP #### [facility] [address] [place] [address] [address] Gilberto Ocampo EGFR-NON AF TURKMEN 34 mL/min/1.73m2 Critically low >=60 [facility] Comment on above: Performed By: #### C MP #### [facility] [address] [place] [address] [address] Gilberto Ocampo Globulin (S) [Mass/Vol] 3.8 g/dL Normal [facility] Comment on above: Performed By: #### C MP #### [facility] [address] [place] [address] [address] Gilberto Ocampo Glucose [Mass/Vol] 206 mg/dL Critically high 74-[address] [facility] Comment on above: Performed By: #### C MP #### [facility] [address] [place] [address] [address] Gilberto Ocampo Potassium [Moles/Vol] 3.9 mmol/L Normal 3.5-5.1 [facility] Comment on above: Performed By: #### C MP #### [facility] [address] [place] [address] [address] Gilberto Ocampo Protein [Mass/Vol] 6.8 g/dL Normal 6.4-8.2 [facility] Comment on above: Performed By: #### C MP #### [facility] [address] [place] [address] [address] Gilberto Ocampo Sodium [Moles/Vol] 140 mmol/L Normal 136-145 [facility] Comment on above: Performed By: #### C MP #### [facility] [address] [place] [address] [address] Gilberto Ocampo Urea nitrogen [Mass/Vol] 16.0 mg/dL Normal 7.0-18.0 [facility] Comment on above: Performed By: #### C MP #### [facility] [address] [place] [address] Dr. Gilberto Ocampo Urea nitrogen/Creatinin e [Mass ratio] 10.5 mg/mg Normal [facility] Comment on above: Performed By: #### C MP #### [facility] [address] [place] [address] Dr. Gilberto Ocampo CULTURE URINEon 12-17-2022 CULTURE URINE Culture Observations: NO GROWTH. Normal [facility] Comment on above: Performed By: #### A CET, CMP #### [facility] [address] [place] [address] [address] Gilberto Ocampo UA RANDOMon 12-17-2022 Bilirubin Ql (U) Negative Normal NEGATIVE [facility] Comment on above: Performed By: #### A CET, CMP #### [facility] [address] [place] [address] Dr. Gilberto Ocampo Clarity (U) CLEAR Normal CLEAR [facility] Comment on above: Performed By: #### A CET, CMP #### [facility] [address] [place] [address] Dr. Gilberto Ocampo Color (U) YELLOW Normal YELLOW [facility] Comment on above: Performed By: #### A CET, CMP #### [facility] [address] [place] [address] Dr. Gilberto Ocampo Glucose Ql (U) 250 mg/dl Abnormal NEGATIVE [facility] Comment on above: Performed By: #### A CET, CMP #### [facility] [address] [place] [address] Dr. Gilberto Ocampo Hemoglobin Ql (U) TRACE-INTACT Abnormal NEGATIVE [facility] Comment on above: Performed By: #### A CET, CMP #### [facility] [address] [place] [address] Dr. Gilberto Ocampo Ketones Ql (U) TRACE Abnormal NEGATIVE [facility] Comment on above: Performed By: #### A CET, CMP #### [facility] [address] [place] [address] Dr. Gilberto Ocampo LEUKOCYTES Negative Normal NEGATIVE [facility] Comment on above: Performed By: #### A CET, CMP #### [facility] [address] [place] [address] Dr. Gilberto Ocampo Nitrite Ql (U) Negative Normal NEGATIVE [facility] Comment on above: Performed By: #### A CET, CMP #### [facility] [address] [place] [address] Dr. Gilberto Ocampo pH (U) 5.0 [pH] Normal 5-9 [facility] Comment on above: Performed By: #### A CET, CMP #### [facility] [address] [place] [address] Dr. Gilberto Ocampo SPEC GRAVITY >=1.030 Abnormal 1.005-<=1.025 [facility] Comment on above: Performed By: #### A CET, CMP #### [facility] [address] [place] [address] Dr. Gilberto Ocampo UA PROTEIN TRACE Normal NEGATIVE/ TRACE [facility] Comment on above: Performed By: #### A CET, CMP #### [facility] [address] [place], [place] [address] Dr. Gilberto Ocampo Urobilinogen Qn (U) 0.2 {Torres'U}/dL Normal 0.2 - 1.0 [facility] Comment on above: Performed By: #### A CET, CMP #### [facility] [address] [place], [place] [address] Dr. Gilberto Ocampo XR HUMERUS RT MIN [...] by: THONY CLARK Date: 2022-11-17 02:30 Normal [facility] XR SHOULDER RT 2V or >on [...] by: THONY CLARK Date: 2022-11-17 03:30 Normal [facility] CULTURE URINEon 11-12-2022 CULTURE URINE Isolate [...] F Trimethoprim/Sulfa methoxazole <=20 S F Normal [facility] Comment on above: Performed By: #### A CET, CMP #### [facility] [address] [place] [address] Dr. Gilberto Ocampo CULTURE URINEon 11-11-2022 CULTURE [...] Trimethoprim/Sulfa methoxazole <=20 S F Normal [facility] Comment on above: Performed By: #### A CET, CMP #### [facility] [address] [place] [address] Dr. Gilberto Ocampo ACETAMINOPHENon 11-09-2022 Acetaminophen [Mass/Vol] ug/mL Critically low 10.0-30.0 [facility] Comment on above: Performed By: #### A CET, CMP #### [facility] [address] [place] [address] Dr. Gilberto Ocampo CBC AUTO DIFFon 11-09-2022 BASO # 0.0 103/ul Normal 0.0-0.1 [facility] Comment on above: Performed By: #### C BC #### [facility] [address] [place] [address] Dr. Gilberto Ocampo Basophils/100 WBC (Bld) 0.5 % Normal 0.2-2.0 [facility] Comment on above: Performed By: #### C BC #### [facility] [address] [place] [address] Dr. Gilberto Ocampo EO # 0.4 103/ul Normal 0.0-0.7 [facility] Comment on above: Performed By: #### C BC #### [facility] [address] [place] [address] Dr. Gilberto Ocampo Eosinophils/100 WBC (Bld) 6.4 % Normal 0.9-7.0 [facility] Comment on above: Performed By: #### C BC #### [facility] [address] [place] [address] Dr. Gilberto Ocampo Erythrocyte distribution width (RBC) [Ratio] 13.7 % Normal 11.0-15.0 [facility] Comment on above: Performed By: #### C BC #### [facility] [address] [place] [address] Dr. Gilberto Ocampo Hematocrit (Bld) [Volume fraction] 38.1 % Normal 36.0-48.0 [facility] Comment on above: Performed By: #### C BC #### [facility] [address] [place] [address] Dr. Gilberto Ocampo Hemoglobin (Bld) [Mass/Vol] 12.2 g/dL Normal 12.0-16.0 [facility] Comment on above: Performed By: #### C BC #### [facility] [address] [place] [address] Dr. Gilberto Ocampo IG # 0.02 10e3/ul Normal 0.00-0.03 [facility] Comment on above: Performed By: #### C BC #### [facility] [address] [place] [address] Dr. Gilberto Ocampo IG % 0.3 % Normal 0.0-0.5 [facility] Comment on above: Performed By: #### C BC #### [facility] [address] [place] [address] Dr. Gilberto Ocampo LYMPH # 2.1 103/ul Normal 1.2-3.8 [facility] Comment on above: Performed By: #### C BC #### [facility] [address] [place] [address] Dr. Gilberto Ocampo Lymphocytes/100 WBC (Bld) 33.1 % Normal 20.5-60.0 [facility] Comment on above: Performed By: #### C BC #### [facility] [address] [place] [address] Dr. Gilberto Ocampo MANUAL DIFF REQ NO Normal [facility] Comment on above: Performed By: #### C BC #### [facility] [address] [place] [address] Dr. Gilberto Ocampo MCH (RBC) [Entitic mass] 29.6 pg Normal 26.7-34.0 [facility] Comment on above: Performed By: #### C BC #### [facility] [address] [place] [address] Dr. Gilberto Ocampo MCHC (RBC) [Mass/Vol] 32.0 g/dL Normal 29.9-35.2 [facility] Comment on above: Performed By: #### C BC #### [facility] [address] [place] [address] Dr. Gilberto Ocampo MCV (RBC) [Entitic vol] 92.5 fL Normal 81.0-99.0 [facility] Comment on above: Performed By: #### C BC #### [facility] [address] [place] [address] Dr. Gilberto Ocampo MONO # 0.7 103/ul Normal 0.3-0.8 [facility] Comment on above: Performed By: #### C BC #### [facility] [address] [place] [address] Dr. Gilberto Ocampo Monocytes/100 WBC (Bld) 11.6 % Normal 1.7-12.0 [facility] Comment on above: Performed By: #### C BC #### [facility] [address] [place] [address] Dr. Gilberto Ocampo NEUT # 3.0 103/ul Normal 1.4-6.5 [facility] Comment on above: Performed By: #### C BC #### [facility] [address] [place] [address] Dr. Gilberto Ocampo Neutrophils/100 WBC (Bld) 48.1 % Normal 43.0-75.0 [facility] Comment on above: Performed By: #### C BC #### [facility] [address] [address] [address] Gilberto Ocampo Platelet mean volume (Bld) [Entitic vol] 10.8 fL Normal 9.5-13.5 [facility] Comment on above: Performed By: #### C BC #### [facility] [address] [address] [address] Gilberto Ocampo PLT 212 103/ul Normal 150-450 [facility] Comment on above: Performed By: #### C BC #### [facility] [address] [address] [address] Gilberto Ocampo RBC 4.12 106/ul Critically low 4.20-5.40 [facility] Comment on above: Performed By: #### C BC #### [facility] [address] [address] [address] Gilberto Ocampo WBC 6.3 103/ul Normal 4.0-11.0 [facility] Comment on above: Performed By: #### C BC #### [facility] [address] [place] [address] Dr. Gilberto Ocampo DRUG SCREEN RAPID (URINE)on 11-09-2022 AMP Negative Normal NEGATIVE [facility] Comment on above: Performed By: #### U ACSWALI ICRO #### [facility] [address] [place] [address] Dr. Gilberto Ocampo BAR Negative Normal NEGATIVE [facility] Comment on above: Performed By: #### U ACSWALI UMICRO #### [facility] [address] [place] [address] Dr. Gilberto Ocampo BUP Negative Normal NEGATIVE [facility] Comment on above: Performed By: #### U ACSWALI UMICRO #### [facility] [address] [place] [address] Dr. Gilberto Ocampo BZO Negative Normal NEGATIVE [facility] Comment on above: Performed By: #### U ACSWALI UMICRO #### [facility] [address] [place] [address] Dr. Gilberto Ocampo CARLIE Negative Normal NEGATIVE [facility] Comment on above: Performed By: #### U ACSWALI UMICRO #### [facility] [address] [place] [address] Dr. Gilberto Ocampo CUT-OFFS SEE BELOW Normal [facility] Comment on above: Result Comment: AMP [...] Performed By: #### U ACSWALI UMICRO #### [facility] [address] [place] [address] Dr. Gilberto Ocampo DRUG CUT HEADER DRUG CLASS TEST SYSTEM CUT-OFF CONCENTRATIONS ARE FOLLOWS: Normal [facility] Comment on above: Performed By: #### U ACSWALI UMICRO #### [facility] [address] [place] [address] Dr. Gilberto Ocampo mAMP Negative Normal NEGATIVE [facility] Comment on above: Performed By: #### U ACSWALI UMICRO #### [facility] [address] [place] [address] Dr. Gilberto Ocampo MTD Negative Normal NEGATIVE [facility] Comment on above: Performed By: #### U ACSWALI UMICRO #### [facility] [address] [place] [address] Dr. Gilberto Ocampo OPI Negative Normal NEGATIVE [facility] Comment on above: Performed By: #### U ACSWALI UMICRO #### [facility] [address] [place] [address] Dr. Gilberto Ocampo OXY Negative Normal NEGATIVE [facility] Comment on above: Performed By: #### U ACSWALI UMICRO #### [facility] [address] [place] [address] Dr. Gilberto Ocampo PCP Negative Normal NEGATIVE [facility] Comment on above: Performed By: #### U ACSIND, UMICRO #### [facility] [address] [address] [address] Gilberto Ocampo PPX Negative Normal NEGATIVE [facility] Comment on above: Performed By: #### U ACSIND, UMICRO #### [facility] [address] [place] [address] Dr. Gilberto Ocampo TCA Negative Normal NEGATIVE [facility] Comment on above: Performed By: #### U ACSIND, UMICRO #### [facility] [address] [place] [address] Dr. Gilberto Ocampo THC Negative Normal NEGATIVE [facility] Comment on above: Performed By: #### U ACSIND, UMICRO #### [facility] [address] [place] [address] Dr. Gilberto Ocampo ER URINE PROFILEon 2 Clarity (U) CLOUDY Abnormal CLEAR [facility] Comment on above: Performed By: #### U ACSIND, UMICRO #### [facility] [address] [place] [address] Dr. Gilberto Ocampo ERUAHEvelyne A micrscopic examination will be performed if indicated. Normal [facility] Comment on above: Performed By: #### U ACSIND, UMICRO #### [facility] [address] [place] [address] Dr. Gilberto Ocampo pH (U) 6.0 [pH] Normal 5-9 [facility] Comment on above: Performed By: #### U ACSIND, UMICRO #### [facility] [address] [place] [address] Dr. Gilberto Ocampo Protein (U) [Mass/Vol] 30 mg/dL Abnormal NEGATIVE/ TRACE [facility] Comment on above: Performed By: #### U ACSIND, UMICRO #### [facility] [address] [place] [address] Dr. Gilberto Ocampo ETHANOL (BLD ALC)on 11-09-20 22 ALC NOTE NOTE: 80 mg/dl is the legal limit for a blood alcohol level Normal [facility] Comment on above: Performed By: #### E TH #### [facility] [address] [place] [address] Dr. Gilberto Ocampo Ethanol [Mass/Vol] mg/dL Normal [facility] Comment on above: Performed By: #### E TH #### [facility] [address] [place] [address] Dr. Gilberto Ocampo GLYCOHEMOGLOBIN A1Con 2021 ADA RECOMMENDATION SEE BELOW Normal [facility] Comment on above: Result Comment: ADA RECOMMENDED LIMIT 4.0 - 6.0 ADA THERAPEUTIC TARGET < 7.0 ACTION SUGGESTED > 7.0 Performed By: #### U ACSIND, UMICRO #### [facility] [address] [place] [address] Dr. Gilberto Ocampo Glucose [Mass/Vol] 177 mg/dL Normal [facility] Comment on above: Performed By: #### U ACSIND, UMICRO #### [facility] [address] [place] [address] Dr. Gilberto Ocampo HbA1c (Bld) [Mass fraction] 7.8 % Critically high 4.5-6.2 [facility] Comment on above: Performed By: #### U ACSIND, UMICRO #### [facility] [address] [place] [address] Dr. Gilberto Ocampo LIPID PROFILEon 11-09-2022 CHOL-HDL RATIO NORM SEE BELOW Normal [facility] Comment on above: Result Comment: 3.3 - 4.4 LOW RISK 4.4 - 7.1 AVERAGE RISK 7.1 - 11.0 MODERATE RISK >11.0 HIGH RISK Performed By: #### L IPID #### [facility] [address] [place] [address] Dr. Gilberto Ocampo Cholesterol [Mass/Vol] 111 mg/dL Normal <=200 [facility] Comment on above: Performed By: #### L IPID #### [facility] [address] [place] [address] Dr. Gilberto Ocampo Cholesterol in HDL [Mass/Vol] 64 mg/dL Critically high 40-60 [facility] Comment on above: Performed By: #### L IPID #### [facility] [address] [place] [address] Dr. Gilberto Ocampo Cholesterol in LDL [Mass/Vol] 28.6 mg/dL Normal [facility] Comment on above: Performed By: #### L IPID #### [facility] [address] [address] [address] Gilberto Ocampo Cholesterol.total/ Cholesterol in HDL [Mass ratio] 1.7 {ratio} Normal [facility] Comment on above: Performed By: #### L IPID #### [facility] [address] [place] [address] Dr. Gilberto Ocampo HDL NORMAL > or = 60 mg/dl - LOW CARDIOVASCULAR RISK <40 mg/dl - HIGH CARDIOVASCULAR RISK Normal [facility] Comment on above: Performed By: #### L IPID #### [facility] [address] [place] [address] Dr. Gilberto Ocampo LDL CALC NORMAL SEE BELOW Normal [facility] Comment on above: Result Comment: <100 mg/dl OPTIMAL 100 - 129 mg/dl NEAR OR ABOVE OPTIMAL 130 - 159 mg/dl BORDERLINE HIGH 160 - 189 mg/dl HIGH >190 mg/dl VERY HIGH Performed By: #### L IPID #### [facility] [address] [place] [address] Dr. Gilberto Ocampo Triglyceride [Mass/Vol] 92 mg/dL Normal <=150 [facility] Comment on above: Performed By: #### L IPID #### [facility] [address] [place] [address] Dr. Gilberto Ocampo VLDL CALC 18.4 mg/dL Normal [facility] Comment on above: Performed By: #### L IPID #### [facility] [address] [place] [address] Dr. Gilberto Ocampo PROF 14(COMP METB)on 022 Albumin [Mass/Vol] 3.5 g/dL Normal 3.4-5.0 [facility] Comment on above: Performed By: #### A CET, CMP #### [facility] [address] [address] [address] Gilberto Ocampo Albumin/Globulin [Mass ratio] 0.9 {ratio} Normal [facility] Comment on above: Performed By: #### A CET, CMP #### [facility] [address] [address] [address] Gilberto Ocampo ALP [Catalytic activity/Vol] 87 U/L Normal 46-116 [facility] Comment on above: Performed By: #### A CET, CMP #### [facility] [address] [address] [address] Gilberto Ocampo ALT [Catalytic activity/Vol] 23 U/L Normal 14-59 [facility] Comment on above: Performed By: #### A CET, CMP #### [facility] [address] [place] [address] Dr. Gilberto Ocampo Anion gap [Moles/Vol] 9.3 mmol/L Normal [facility] Comment on above: Performed By: #### A CET, CMP #### [facility] [address] [place] [address] Dr. Gilberto Ocampo AST [Catalytic activity/Vol] 24 U/L Normal 15-37 [facility] Comment on above: Performed By: #### A CET, CMP #### [facility] [address] [place] [address] Dr. Gilberto Ocampo Bilirubin [Mass/Vol] 1.0 mg/dL Normal 0.2-1.0 [facility] Comment on above: Performed By: #### A CET, CMP #### [facility] [address] [address] [address] Gilberto Ocampo Calcium [Mass/Vol] 8.7 mg/dL Normal 8.5-10.1 [facility] Comment on above: Performed By: #### A CET, CMP #### [facility] [address] [place] [address] Dr. Gilberto Ocampo Chloride [Moles/Vol] 102 mmol/L Normal 98-107 [facility] Comment on above: Performed By: #### A CET, CMP #### [facility] [address] [address] [address] Gilberto Ocampo CO2 [Moles/Vol] 32.4 mmol/L Critically high 21.0-32.0 [facility] Comment on above: Performed By: #### A CET, CMP #### [facility] [address] [address] [address] Gilberto Ocampo Creatinine [Mass/Vol] 1.58 mg/dL Critically high 0.55-1.02 [facility] Comment on above: Performed By: #### A CET, CMP #### [facility] [address] [address] [address] Gilberto Ocampo EGFR-AF TURKMEN 39 mL/min/1.73m2 Critically low >=60 [facility] Comment on above: Performed By: #### A CET, CMP #### [facility] [address] [place] [address] Dr. Gilberto Ocampo EGFR-NON AF TURKMEN 32 mL/min/1.73m2 Critically low >=60 [facility] Comment on above: Performed By: #### A CET, CMP #### [facility] [address] [address] [address] Gilberto Ocampo Globulin (S) [Mass/Vol] 3.7 g/dL Normal [facility] Comment on above: Performed By: #### A CET, CMP #### [facility] [address] [address] [address] Gilberto Ocampo Glucose [Mass/Vol] 272 mg/dL Critically high 74-[address] [facility] Comment on above: Performed By: #### A CET, CMP #### [facility] [address] [address] [address] Gilberto Ocampo Potassium [Moles/Vol] 3.7 mmol/L Normal 3.5-5.1 [facility] Comment on above: Performed By: #### A CET, CMP #### [facility] [address] [address] [address] Gilberto Ocampo Protein [Mass/Vol] 7.2 g/dL Normal 6.4-8.2 [facility] Comment on above: Performed By: #### A CET, CMP #### [facility] [address] [address] [address] Gilberto Ocampo Sodium [Moles/Vol] 140 mmol/L Normal 136-145 [facility] Comment on above: Performed By: #### A CET, CMP #### [facility] [address] [place] [address] Dr. Gilberto Ocampo Urea nitrogen [Mass/Vol] 20.0 mg/dL Critically high 7.0-18.0 [facility] Comment on above: Performed By: #### A CET, CMP #### [facility] [address] [address] [address] Gilberto Ocampo Urea nitrogen/Creatinin e [Mass ratio] 12.7 mg/mg Normal [facility] Comment on above: Performed By: #### A CET, CMP #### [facility] [address] [place] [address] Dr. Gilberto Ocampo UA (CLEAN/CATCH) PRACTICE SPECIALIST/MICRO I F IND.on 11-09-2022 Bilirubin Ql (U) Negative Normal NEGATIVE [facility] Comment on above: Performed By: #### U ACSIND, ICRO #### [facility] [address] [place] [address] Dr. Gilberto Ocampo Clarity (U) CLEAR Normal CLEAR [facility] Comment on above: Performed By: #### U ACSIND, UMICRO #### [facility] [address] [place] [address] Dr. Gilberto Ocampo Color (U) LT. YELLOW Normal YELLOW [facility] Comment on above: Performed By: #### U ACSIND, UMICRO #### [facility] [address] [address] [address] Gilberto Ocampo Glucose Ql (U) Negative Normal NEGATIVE [facility] Comment on above: Performed By: #### U ACSIND, UMICRO #### [facility] [address] [place] [address] Dr. Gilberto Ocampo Hemoglobin Ql (U) LARGE Abnormal NEGATIVE [facility] Comment on above: Performed By: #### U ACSIND, UMICRO #### [facility] [address] [place] [address] Dr. Gilberto Ocampo Ketones Ql (U) TRACE Abnormal NEGATIVE [facility] Comment on above: Performed By: #### U ACSIND, UMICRO #### [facility] [address] [address] [address] Gilberto Ocampo LEUKOCYTES MODERATE Abnormal NEGATIVE [facility] Comment on above: Performed By: #### U ACSIND, UMICRO #### [facility] [address] [place] [address] Dr. Gilberto Ocampo Nitrite Ql (U) Positive Abnormal NEGATIVE [facility] Comment on above: Performed By: #### U ACSWALI UMICRO #### [facility] [address] [place] [address] Dr. Gilberto Ocampo pH (U) 5.5 [pH] Normal 5-9 [facility] Comment on above: Performed By: #### U ACSWALI UMICRO #### [facility] [address] [place] [address] Dr. Gilberto Ocampo SPEC GRAVITY 1.025 Normal 1.005-<=1.025 [facility] Comment on above: Performed By: #### U ACSWALI UMICRO #### [facility] [address] [place] [address] Dr. Gilberto Ocampo UA PROTEIN 30 mg/dl Abnormal NEGATIVE/ TRACE [facility] Comment on above: Performed By: #### U ACSWALI UMICRO #### [facility] [address] [place] [address] Dr. Gilberto Ocampo UR MICRO IND INDICATED Normal [facility] Comment on above: Performed By: #### U ACSWALI UMICRO #### [facility] [address] [place] [address] Dr. Gilberto Ocampo Urobilinogen Qn (U) 0.2 {Torres'U}/dL Normal 0.2 - 1.0 [facility] Comment on above: Performed By: #### U ACSIND, UMICRO #### [facility] [address] [place] [address] Dr. Gilberto Ocampo URINE MICROSCOPIC ONLYon BACTERIA SMALL Abnormal NONE SEEN [facility] Comment on above: Performed By: #### U ACSIND, UMICRO #### [facility] [address] [address] [address] Gilberto Ocampo BACTERIA MODERATE Abnormal NONE SEEN [facility] Comment on above: Performed By: #### U ACSIND, UMICRO #### [facility] [address] [address] [address] Gilberto Ocampo Bacteria identified Cx Nom (U) INDICATED Normal [facility] Comment on above: Performed By: #### U ACSIND, UMICRO #### [facility] [address] [place] [address] Dr. Gilberto Ocampo CAST NONE SEEN Normal NONE SEEN [facility] Comment on above: Performed By: #### U ACSIND, UMICRO #### [facility] [address] [place] [address] Dr. Gilberto Ocampo Crystals LM Nom (Urine sed) NONE SEEN Normal NONE SEEN [facility] Comment on above: Performed By: #### U ACSIND, UMICRO #### [facility] [address] [place] [address] Dr. Gilberto Ocampo Epithelial cells LM Ql (Urine sed) MODERATE Abnormal NONE SEEN /RARE [facility] Comment on above: Performed By: #### U ACSIND, UMICRO #### [facility] [address] [place] [address] Dr. Gilberto Ocampo MUCOUS TRACE Abnormal NONE SEEN [facility] Comment on above: Performed By: #### U ACSIND, UMICRO #### [facility] [address] [address] [address] Gilberto Ocampo MUCOUS SMALL Abnormal NONE SEEN [facility] Comment on above: Performed By: #### U ACSIND, UMICRO #### [facility] [address] [address] [address] Gilberto Ocampo RBC 2-5 Abnormal 0-2 [facility] Comment on above: Performed By: #### U ACSIND, UMICRO #### [facility] [address] [address] [address] Gilberto Ocampo RBC 5-10 Abnormal 0-2 [facility] Comment on above: Performed By: #### U AMERICA JAINRO #### [facility] [address] [address] [address] Gilberto Ocampo WBC 20-50 Abnormal NONE SEEN [facility] Comment on above: Performed By: #### U AMERICA JAINRO #### [facility] [address] [address] [address] Gilberto Ocampo WBC 10-20 Abnormal NONE SEEN [facility] Comment on above: Performed By: #### U TARA JAINICRO #### [facility] [address] [address] [address] Gilberto Ocampo MG MAMM SCREEN 3D DION CADon 10-11-2022 MG MAMM SCREEN 3D DION CAD Patient: MALCOM KNOWLES Exam Date: 10/11/2022 : 1955 Gender:F Ordering : DR DUSTY WALTERS . Admission #: [id number] Family : Order #: [id number] CLICK HERE TO VIEW EXAM RADIOLOGY REPORT [...] prostate cancer at age 64. LOCATION: [facility] BREAST COMPOSITION: Scattered areas fibroglandular density. FINDINGS: [...] Talbert MD on 10/11/2022 at 14:47 Normal [facility] PTH INTACTon 09-18-2022 PTH, Intact 46 pg/mL Normal 15-65 [facility] Comment on above: Performed By: #### U ZAID JAIN #### [facility] [address] [place] [address] Dr. Gilberto Ocampo HEMOGRAM AND PLATELon 2021 Hematocrit (Bld) [Volume fraction] 37.2 % Normal 36.0-48.0 [facility] Comment on above: Performed By: #### H H #### [facility] [address] [place] [address] Dr. Gilberto Ocampo Hemoglobin (Bld) [Mass/Vol] 12.2 g/dL Normal 12.0-16.0 [facility] Comment on above: Performed By: #### H H #### [facility] [address] [place] [address] Dr. Gilberto Ocampo MCH (RBC) [Entitic mass] 30.3 pg Normal 26.7-34.0 [facility] Comment on above: Performed By: #### H H #### [facility] [address] [place] [address] Dr. Gilberto Ocampo MCHC (RBC) [Mass/Vol] 32.8 g/dL Normal 29.9-35.2 [facility] Comment on above: Performed By: #### H H #### [facility] [address] [place] [address] Dr. Gilberto Ocampo MCV (RBC) [Entitic vol] 92.5 fL Normal 81.0-99.0 [facility] Comment on above: Performed By: #### H H #### [facility] [address] [place] [address] Dr. Gilberto Ocampo PLT 194 103/ul Normal 150-450 [facility] Comment on above: Performed By: #### H H #### [facility] [address] [place] [address] Dr. Gilberto Ocampo RBC 4.02 106/ul Critically low 4.20-5.40 [facility] Comment on above: Performed By: #### H H #### [facility] [address] [place] [address] Dr. Gilberto Ocampo WBC 5.4 103/ul Normal 4.0-11.0 [facility] Comment on above: Performed By: #### H H #### [facility] [address] [place] [address] Dr. Gilberto Ocampo MAGNESIUMon 09-15-2022 Magnesium [Mass/Vol] 1.9 mg/dL Normal 1.8-2.4 [facility] Comment on above: Performed By: #### A CET, CMP #### [facility] [address] [place] [address] Dr. Gilberto Ocampo PROF 14(COMP METB)on 022 Albumin [Mass/Vol] 3.3 g/dL Critically low 3.4-5.0 [facility] Comment on above: Performed By: #### A CET, CMP #### [facility] [address] [place] [address] Dr. Gilberto Ocampo Albumin/Globulin [Mass ratio] 0.9 {ratio} Normal [facility] Comment on above: Performed By: #### A CET, CMP #### [facility] [address] [place] [address] Dr. Gilberto Ocampo ALP [Catalytic activity/Vol] 85 U/L Normal 46-116 [facility] Comment on above: Performed By: #### A CET, CMP #### [facility] [address] [place] [address] Dr. Gilberto Ocampo ALT [Catalytic activity/Vol] 32 U/L Normal 14-59 [facility] Comment on above: Performed By: #### A CET, CMP #### [facility] [address] [place] [address] Dr. Gilberto Ocampo Anion gap [Moles/Vol] 12.3 mmol/L Normal [facility] Comment on above: Performed By: #### A CET, CMP #### [facility] [address] [place] [address] Dr. Gilberto Ocampo AST [Catalytic activity/Vol] 20 U/L Normal 15-37 [facility] Comment on above: Performed By: #### A CET, CMP #### [facility] [address] [address] [address] Gilberto Ocampo Bilirubin [Mass/Vol] 1.1 mg/dL Critically high 0.2-1.0 [facility] Comment on above: Performed By: #### A CET, CMP #### [facility] [address] [address] [address] Gilberto Ocampo Calcium [Mass/Vol] 8.5 mg/dL Normal 8.5-10.1 [facility] Comment on above: Performed By: #### A CET, CMP #### [facility] [address] [address] [address] Gilberto Ocampo Chloride [Moles/Vol] 103 mmol/L Normal 98-107 [facility] Comment on above: Performed By: #### A CET, CMP #### [facility] [address] [address] [address] Gilberto Ocampo CO2 [Moles/Vol] 29.5 mmol/L Normal 21.0-32.0 [facility] Comment on above: Performed By: #### A CET, CMP #### [facility] [address] [address] [address] Gilberto Ocampo Creatinine [Mass/Vol] 1.52 mg/dL Critically high 0.55-1.02 [facility] Comment on above: Performed By: #### A CET, CMP #### [facility] [address] [address] [address] Gilberto Ocampo EGFR-AF TURKMEN 41 mL/min/1.73m2 Critically low >=60 [facility] Comment on above: Performed By: #### A CET, CMP #### [facility] [address] [address] [address] Gilberto Ocampo EGFR-NON AF TURKMEN 34 mL/min/1.73m2 Critically low >=60 [facility] Comment on above: Performed By: #### A CET, CMP #### [facility] [address] [address] [address] Gilberto Ocampo Globulin (S) [Mass/Vol] 3.6 g/dL Normal [facility] Comment on above: Performed By: #### A CET, CMP #### [facility] [address] [place] [address] Dr. Gilberto Ocampo Glucose [Mass/Vol] 323 mg/dL Critically high 74-[address] [facility] Comment on above: Performed By: #### A CET, CMP #### [facility] [address] [place] [address] Dr. Gilberto Ocampo Potassium [Moles/Vol] 3.8 mmol/L Normal 3.5-5.1 [facility] Comment on above: Performed By: #### A CET, CMP #### [facility] [address] [place] [address] Dr. Gilberto Ocampo Protein [Mass/Vol] 6.9 g/dL Normal 6.4-8.2 [facility] Comment on above: Performed By: #### A CET, CMP #### [facility] [address] [place] [address] Dr. Gilberto Ocampo Sodium [Moles/Vol] 141 mmol/L Normal 136-145 [facility] Comment on above: Performed By: #### A CET, CMP #### [facility] [address] [place] [address] Dr. Gilberto Ocampo Urea nitrogen [Mass/Vol] 16.0 mg/dL Normal 7.0-18.0 [facility] Comment on above: Performed By: #### A CET, CMP #### [facility] [address] [place] [address] Dr. Gilberto Ocampo Urea nitrogen/Creatinin e [Mass ratio] 10.5 mg/mg Normal [facility] Comment on above: Performed By: #### A CET, CMP #### [facility] [address] [place] [address] Dr. Gilberto Ocampo URIC ACID SERUMon 09-15-2022 Urate [Mass/Vol] 3.3 mg/dL Normal 2.6-6.0 [facility] Comment on above: Performed By: #### A CET, CMP #### [facility] [address] [place] [address] Dr. Gilberto Ocampo VITAMIN D 25 OHon 09-15-2022 VIT D 25-OH 57.1 ng/mL Normal [facility] Comment on above: Performed By: #### U ZAID JAIN #### [facility] [address] [address] [address] Gilberto Ocampo VIT D RANGES SEE BELOW Normal [facility] Comment on above: Result Comment: <20 ng/mL Vit D deficient 20 - <30 ng/mL Vit D insufficient 30 - 100 ng/mL Vit D sufficient >100 ng/mL Potential Toxicity Performed By: #### U ZAID JAIN #### [facility] [address] [address] [address] Gilberto Ocampo US KIDNEYSon 08-30-2022 US [...] ADAMS RAGSDALE Date: 2022-08-30 11:46 Normal [facility] XR CHEST 2 Von 08-27-2022 XR CHEST [...] by: ADAMS RAGSDALE Date: 2022-08-27 21:54 Normal [facility] XR NECK SOFT TISSUEon 2021 XR [...] by: ADAMS RAGSDALE Date: 2022-08-27 21:58 Normal [facility] Tobacco Screening.on 022 Adult depression screening assessment No [facility] [employer] 250 DO Work Phone: Fall risk assessment b) One or more falls in the last year [facility] [employer] 250 DO Work Phone: Tobacco use status CPHS b) No [facility] [employer] 250 DO Work Phone: CNPNon 01-18-2021 [facility] (GYN) -------- MALCOM KNOWLES ([id number]) 1955 F Date Time Provider Department 01/18/21 REGINA MANZO [facility] During your visit today, we recorded the following information about you: Anabela Bettencourt [facility] 01/18/2021 10:00 AM Signed Called patient and told her left and needs to make a follow up at . Patient said she will call back in April. She has to figure out transportation. Allergies As of Date: 01/18/2021 Noted Allergy Reaction INFLUENZA VIRUS VACCINES 03/01/2016 14 - Other: See Comments Comments: History of Guillain -Washburn Syndrome FLU VACCINE 2010-12(3 YR+)(PF) 01/18/2016 16 [...] Encounter Status:Closed by ANABELA BUSTAMANTE on 01/18/21 [facility] Vital Signs Date Time Vital Sign Value Performing Clinician Facility 01-09-2024 11:49-0500 Body height 157.5 cm Cinthia Vazquez MD Work Phone: [facility] 01-09-2024 11:49-0500 Body mass index (BMI) [Ratio] 53.04 kg/m2 Cinthia Vazquez MD Work Phone: [facility] 01-09-2024 11:49-0500 Body weight 131.54 kg Cinthia Vazquez MD Work Phone: [facility] 01-09-2024 11:49-0500 Diastolic blood pressure 80 mm[Hg] Cinthia Vazquez MD Work Phone: [facility] 01-09-2024 11:49-0500 Heart rate 64 /min Cinthia Vazquez MD Work Phone: [facility] 01-09-2024 11:49-0500 Systolic blood pressure 136 mm[Hg] Cinthia Vazquez MD Work Phone: [facility] 11-21-2023 10:16-0500 Blood Pressure Location BRIGIDA WILLOUGHBY [facility] 11-21-2023 10:16-0500 Diastolic blood pressure 84 mm[Hg] BRIGIDA WILLOUGHBY [facility] 11-21-2023 10:16-0500 Systolic blood pressure 138 mm[Hg] BRIGIDA WILLOUGHBY [facility] 07-02-2023 14:20-0400 Body height 162.56 cm Chip Hernandezs Other [facility] [employer] Other 07-02-2023 14:20-0400 Body temperature 96.7 [degF] Azamos [employer] Other [facility] [employer] Other 07-02-2023 14:20-0400 Diastolic blood pressure 79 mm[Hg] [employer] Other [facility] Other 07-02-2023 14:20-0400 Respiratory rate 18 /min [employer] Other [facility] [employer] Other 07-02-2023 14:20-0400 SaO2% (BldA) [Mass fraction] 98 % [employer] Other [employer] Other 07-02-2023 14:20-0400 Systolic blood pressure 155 mm[Hg] [employer] Other [employer] Other 04-04-2023 11:33-0400 Body height 160.02 cm Dusty Walters [facility] 600 DO Work Phone: 04-04-2023 11:33-0400 Body mass index (BMI) [Ratio] 52.97 kg/m2 Dusty Walters Work Phone: [facility] [employer] 600 DO Work Phone: 04-04-2023 11:33-0400 Body surface area Derived from formula 2.29 m2 Dusty Walters Work Phone: [facility] 600 DO Work Phone: 04-04-2023 11:33-0400 Body weight 135.63 kg Dusty Walters Work Phone: [facility] 600 DO Work Phone: 04-04-2023 11:33-0400 Diastolic blood pressure 70 mm[Hg] Dusty Walters Work Phone: [facility] [employer] 600 DO Work Phone: 04-04-2023 11:33-0400 Heart rate 72 /min Dusty Walters Work Phone: [facility] [employer] 600 DO Work Phone: 04-04-2023 11:33-0400 Systolic blood pressure 110 mm[Hg] Dusty Walters Work Phone: [facility] [employer] 600 DO Work Phone: 11-20-2022 10:30-0500 Body height 162.56 cm Lizandro Eliezer Other [facility] [employer] Other 10-30-2022 16:20-0500 Body height 162.56 cm Aziz Bakhous Other [employer] Other 10-30-2022 16:20-0500 Diastolic blood pressure 84 mm[Hg] Aziz Bakhous Other [employer] Other 10-30-2022 16:20-0500 SaO2% (BldA) [Mass fraction] 98 % Aziz Bakhous Other [employer] Other 10-30-2022 16:20-0500 Systolic blood pressure 128 mm[Hg] Azamos Hernandezs Other [employer] Other 05-15-2022 14:20-0400 Body height 162.56 cm Azamos Hernandezs Other [employer] Other 05-15-2022 14:20-0400 Body temperature 97 [degF] Azamos [employer] Other [employer] Other 05-15-2022 14:20-0400 Diastolic blood pressure 70 mm[Hg] Aziz Bakhous Other [employer] Other 05-15-2022 14:20-0400 Respiratory rate 18 /min Chip Hernandezs Other [employer] Other 05-15-2022 14:20-0400 SaO2% (BldA) [Mass fraction] 97 % Chip Hernandezs Other [employer] Other 05-15-2022 14:20-0400 Systolic blood pressure 120 mm[Hg] Chip Bakhous Other [employer] Other 03-12-2022 13:25-0400 Body height 160.02 cm Dusty Seals [employer] Work Phone: [facility] [employer] 250 DO Work Phone: 03-12-2022 13:25-0400 Body mass index (BMI) [Ratio] 51.02 kg/m2 Dusty Seals [employer] Work Phone: [facility] [employer] 250 DO Work Phone: 03-12-2022 13:25-0400 Body surface area Derived from formula 2.26 m2 Dusty Walters Work Phone: [facility] 250 DO Work Phone: 03-12-2022 13:25-0400 Body weight 130.64 kg Dusty Walters Work Phone: [facility] 250 DO Work Phone: 03-12-2022 13:25-0400 Diastolic blood pressure 78 mm[Hg] Dusty Walters Work Phone: [facility] 250 DO Work Phone: 03-12-2022 13:25-0400 Heart rate 70 /min Dusty Walters Work Phone: [facility] 250 DO Work Phone: 03-12-2022 13:25-0400 Systolic blood pressure 102 mm[Hg] Dusty Walters Work Phone: [facility] 250 DO Work Phone: Encounters Encounter Date Encounter Type Care Provider Facility Start: 04-28-2024 [facility] Start: 03-03-2024 ambulatory BRIGIDA WILLOUGHBY Facili ty:[facility] Start: 02-27-2024 ambulatory BRIGIDA WILLOUGHBY Facili ty:[facility] [place] Start: 02-24-2024 ambulatory Jose Snow Facility :[facility] Start: 02-04-2024 End: 02-05-2024 ambulatory [facility] Start: 01-09-2024 End: 01-09-2024 ambulatory [facility] Start: 01-09-2024 End: 01-09-2024 Office outpatient visit 15 minutes Cinthia Vazquez MD Work Phone: [facility] Comment on above: 2-vessel coronary ar wade disease (Primary Dx); Essential hypertension; Mixed hyperlipidemia; H/O non-ST elevation myocardial infarction (NSTEMI); Post PTCA; Morbid obesity ([facility]/HCC) Start: 12-23-2023 End: 12-24-2023 ambulatory Joe BOOTH [facility] Start: 12-23-2023 End: 12-23-2023 Patient encounter procedure Joe Guerra EMM[facility] Start: 12-16-2023 End: 12-17-2023 ambulatory Mariangel Campbell Facility:[facility] [place] [facility] Start: 11-21-2023 End: 11-22-2023 ambulatory MD CHIP CRAFT Facility:[facility] Start: 11-21-2023 End: 11-21-2023 Patient encounter procedure BRIGIDA WILLOUGHBY [facility] Start: 11-20-2023 End: 11-21-2023 ambulatory Jose Snow Facility:[facility] [place] Start: 10-23-2023 ambulatory MD CHIP CRAFT Facilit y:[facility] [place] Start: 10-01-2023 End: 10-02-2023 ambulatory Jose Snow [facility] Start: 10-01-2023 End: 10-01-2023 Patient encounter procedure Jose Snow [facility] Start: 09-09-2023 End: 09-10-2023 ambulatory Jose Snow Facility:[facility] [place] Start: 07-31-2023 End: 07-31-2023 ambulatory Anjana Pal Other [employer] Other Start: 07-31-2023 Telephone encounter [facility] Start: 07-28-2023 End: 07-28-2023 ambulatory MD Dusty Walters Work Phone: [facility] Work Phone: Start: 07-28-2023 End: 07-28-2023 Departed Referred MD Dusty Walters Work Phone: [facility] [place] Work Phone: Start: 07-15-2023 End: 07-16-2023 ambulatory Mariangel L Adrian Facility:[facility] Start: 07-05-2023 Telephone encounter Tanika John [facility] Start: 07-05-2023 End: 07-05-2023 ambulatory Tanika John Other [employer] Other Start: 07-02-2023 End: 07-02-2023 ambulatory Aziz Bakhous Other [employer] Other Start: 07-02-2023 Office outpatient visit 25 minutes Aziz Bakhous [facility] Start: 07-01-2023 Office outpatient visit 25 minutes Brigida George [facility] Start: 07-01-2023 End: 07-01-2023 ambulatory MD Dusty Walters Work Phone: [facility] Work Phone: Start: 07-01-2023 End: 07-01-2023 Patient encounter procedure MD Dusty Walters Work Phone: [facility] Start: 06-28-2023 End: 06-28-2023 ambulatory Aziz Bakhous Other [employer] Other Start: 06-28-2023 Telephone encounter Aziz Bakhous [facility] Start: 05-16-2023 End: 05-17-2023 ambulatory Mariangel L Adrian [facility] Start: 05-16-2023 End: 05-16-2023 Lab Drop off Mariangel L Adrian [facility] Start: 05-01-2023 ambulatory AJ BEJ Facility:[facility] Start: 04-04-2023 Office outpatient visit 25 minutes Dusty Walters Work Phone: [facility] 600 DO Work Phone: Start: 04-04-[address] Dusty Salgado acility: Start: 01-24-2023 End: 01-24-2023 ambulatory CONNER GERMAN . Facility:[facility] Start: 01-18-2023 End: 01-19-2023 ambulatory AJ YOUNG Facility:[facility] Start: 12-26-2022 End: 12-26-[address] DUSTY WALTERS . Facility:[facility] Start: 12-18-2022 End: 12-18-2022 ambulatory Lizandro Eliezer Other [facility] [employer] Other Start: 12-18-2022 Office outpatient visit 15 minutes Lizandro Martins [facility] Start: 12-17-2022 End: 12-17-[address] DUSTY WALTERS . Facility:[facility] Start: 11-20-2022 End: 11-20-2022 ambulatory Lizandro Eliezer Other [employer] Other Start: 11-20-2022 [facility] visit new patient Lizandro Cummingsmelina [facility] Start: 11-17-2022 End: 11-17-[address] DUSTY WALTERS . Facility:[facility] Start: 11-09-2022 End: 11-10-[address] DUSTY WALTERS . Facility:[facility] Start: 11-09-2022 End: 11-10-[address] DUSTY WALTERS . Facility:[facility] Start: 10-30-2022 End: 10-30-2022 ambulatory Chip Craft Other [employer] Other Start: 10-30-2022 Office outpatient visit 15 [...] 05-15-2022 End: 05-15-2022 ambulatory Chip Nelsontushar Other [facility] [employer] Other Start: 05-15-2022 Office outpatient ne w 30 minutes Chip Craft [facility] Start: 03-12-2022 Office outpatient visit 25 minutes Dusty Walters Work Phone: [facility] 250 DO Work Phone: Procedures Date Procedure Procedure Detail Performing Clinician Start: 07-01-2023 Plain X-ray of left shoulder MD Dusty Walters Work Phone: Arthroplasty of knee Dsuty chase Work Phone: Cardiac catheterization Dusty Walters [...] procedure 01/05/2025 9:50 AM EST Office Visit [facility] [address] [facility] [address] [place] [address] Cinthia Vazquez MD [address] [facility] [address] [place] [address] [facility] Start: 01-07-2024 FUV, Provider: Cinthia Vazquez, Status: Pen, Time: 11:00 AM FUV, Provider: Cinthia Vazquez, Status: Pen, Time: 11:00 AM [facility] 600 DO Work Phone: Start: 08-02-2023 COVID-19 Vaccine ( season) COVID-19 Vaccine ( season) [facility] Start: 08-02-2023 Influenza vaccination Influenza Vaccine (#1) [facility] Start: 07-28-2023 Bacteria identified in Urine by Culture Urine Culture [facility] Start: 12-11-2022 FUV, Provider: Cinthia Vazquez, Status: Pen, Time: 10:30 AM FUV, Provider: Cinthia Vazquez, Status: Pen, Time: 10:30 AM [facility] 250 DO Work Phone: Start: 07-05-2022 Glaucoma screening Diabetes: Retinopathy Screening [facility] Start: 12-02-2021 Pneumococcal Vaccine: 65+ Years (3 - PPSV23 or PCV20) Pneumococcal Vaccine: 65+ Years (3 - PPSV23 or PCV20) [facility] Start: 2003 Zoster Vaccines (1 of 2) Zoster Vaccines (1 of 2) [facility] Start: 1993 Screening for malignant neoplasm of breast Mammogram [facility] Start: 1975 DTaP/Tdap/Td Vaccines (1 - Tdap) DTaP/Tdap/Td Vaccines (1 - Tdap) [facility] Start: 1972 Urine screening for protein Diabetes: Urine Protein Screening [facility] Start: 1971 Hepatitis C screening Hepatitis C Screening [facility] Start: 1963 Diabetic foot examination Diabetes: Foot Exam [facility] Start: 1953 Hemoglobin A1c measurement Diabetes: Hemoglobin A1C [facility] Start: 1953 Lipid panel Lipid Panel [facility] Start: 1955 Medicare Annual Wellness Visit Medicare Annual Wellness Visit (AWV) [facility] Start: 1955 Screening for malignant neoplasm of colon [facility] Start: 1955 Screening for osteoporosis Bone Density Scan [facility] Immunizations Immunization Date Immunization Notes Care Provider Fa cilihenrry 09-13-2022 SARS-CoV-2 (COVID-19 ) [id number] Mariangel Campbell [facility] 01-13-2022 Moderna COVID-19 Vac cine 100 MCG/0.5ML Intramuscular Suspension Dusty Walters Work Phone: [facility] Comment on above: Result Comment: 2022: [id number] 08-09-2021 Moderna COVID-19 Vac cine 100 MCG/0.5ML Intramuscular Suspension Dusty Walters Work Phone: [facility] 07-12-2021 Moderna COVID-19 Vac cine 100 MCG/0.5ML Intramuscular Suspension Dusty Walters Work Phone: [facility] 12-02-2016 pneumococcal polysaccharide vaccine, 23 valent Dusty Walters Work Phone: [facility] 250 DO Work Phone: 10-18-2016 pneumococcal conjuga te vaccine, 13 valent Dusty Walters Work Phone: [facility] Payers Date Payer Category Payer Unknown [id number] 2023 Self-pay [id number] 2022 Medicare [id number] 2018 Medicare [id number] 5 1959 Medicare [id number] 2.1 [id number] 1959 Unknown [id number] 2.1 6.840.1.234754.19 1953 Unknown [id number] 2.16. 840.1.638965.3.579.2.356 1953 Unknown [id number] 2.16.84 0.1.255614.3.579.2.593 1953 Unknown [id number] 2.16.84 0.1.307136.3.579.2.593 1953 Unknown [id number] 2.16.84 0.1.683213.3.579.2.593 1953 Unknown [id number] 2.16.84 0.1.905234.3.579.2.593 1953 Unknown [id number] 2.16.84 0.1.125365.3.579.2.593 1953 Unknown [id number] 2.16.84 0.1.368563.3.579.2.593 1953 Unknown [id number] 2.16.84 0.1.591591.3.579.2.593 1953 Unknown [id number] 2.16.84 0.1.794365.3.579.2.593 1953 Unknown [id number] 2.16.84 0.1.567079.3.579.2.593 1953 Unknown [id number] 2.16.84 0.1.164257.3.579.2.593 1953 Unknown [id number] 2.16.84 0.1.920255.3.579.2.593 1953 Unknown [id number] 2.16.84 0.1.050105.3.579.2.593 1953 Unknown [id number] 2.16.84 0.1.829032.3.579.2.593 1953 Unknown [id number] 2.16.8 40.1.056101.3.579.2.1244 1953 Unknown [id number] 2.16.8 40.1.241019.3.579.2.727 1953 Unknown [id number] 2.16.8 40.1.268318.3.579.2.727 1953 Unknown [id number] 2.16.8 40.1.438344.3.579.2.727 1953 Unknown [id number] 2.16.8 40.1.511915.3.579.2.727 1953 Unknown [id number] 2.16.8 40.1.971160.3.579.2.727 1953 Unknown [id number] 2.16.8 40.1.255751.3.579.2.727 1953 Unknown [id number] 2.16.8 40.1.339059.3.579.2.727 1953 Unknown [id number] 2.16.8 40.1.924202.3.579.2.727 1953 Unknown [id number] 2.16.8 40.1.993052.3.579.2.727 1953 Unknown [id number] 2.16.8 40.1.436075.3.579.2.727 1953 Unknown [id number] 2.16.8 40.1.781290.3.579.2.727 1953 Unknown [id number] 2.16.8 40.1.009013.3.579.2.727 1953 Unknown [id number] 2.16.8 40.1.180087.3.579.2.727 1953 Unknown [id number] 2.16.8 40.1.498557.3.579.2.727 1955 Unknown [id number] 2.16.8 40.1.684347.3.579.2.727 Medicaid [employer] [id number] Unknown Unknown [id number] 2.16.8 40.1.396147.3.579.2.531 Unknown [id number] 2.16.8 40.1.674676.3.579.2.531 Social History Date Type Detail Facility Start: 12-16-2023 No alcohol use No alcohol use -[facility] 250 DO Work Phone: Comment on above: 2 CUPS OF ICED TEA D AILY; Start: 12-16-2023 Sex Assigned At F [facility] Start: 05-16-2023 End: 12-16-2023 Tobacco smoking status Never smoked tobacco (finding) [facility] Tobacco smoking status Never [facility] Start: 1955 Sex Assigned At Female F [facility] Start: 01-09-2024 Alcohol intake Lifetime non-d vijay (finding) [facility] Work Phone: Start: 1955 Sex Assigned At Not on file U [facility] Work Phone: Start: 12-30-2023 End: 01-09-2024 Exposure to SARS-CoV-2 (event) Not sure [facility] Medical Equipment Procedure Code Equipment Code [...] PERSONA LEFT SIZE D FDA Start: 03-30-2019 [facility] DME Prescri ption, See Instructions, 300 pen needle(s), 3, BD ultra fine pen needles 31G X 3/16. Use to inject insulin as directed. Dx E10.42, [facility] Start: 02-19-2023 CL STENT AURORA 3.0 X 18 FDA Start: 06-29-2018 CL STENT [place]UR[place] 3.5 X 15 FDA Start: 06-29-2018 [id number] FDA Start: 04-18-2020 Drug-eluting cor onary artery stent, vvl-yzfhluzxlabxf-cbvr larry-coated ()[id number] FDA Start: 04-18-2020 Drug-eluting cor onary artery stent, kau-earlixfgsphgq-mume larry-coated ()[id number] FDA Start: 04-18-2020 CL STENT AURORA 3.0 X 18 FDA Start: 06-29-2018 CL STENT AURORA 3.5 X 15 FDA Start: 06-29-2018 [id number] FDA Start: 04-18-2020 [facility] Prescri ption, See Instructions, 300 pen needle(s), 3, BD ultra fine pen needles 31G X 3/16. Use to inject insulin as directed. Dx E10.42, [email or web address] [facility], Supply Start: 02-19-2023 [facility] D[facility] Prescri ption, See Instructions, 300 pen needle(s), 3, BD ultra fine pen needles 31G X 3/16. Use to inject insulin as directed. Dx E10.42, [facility], Supply Start: 02-19-2023 [facility] DME Prescri ption, See Instructions, 300 pen needle(s), 3, BD ultra fine pen needles 31G X 3/16. Use to inject insulin as directed. Dx E10.42, [facility], Supply Start: 02-19-2023 Functional Status Date Assessment Result Facility 12-23-2023 Functional Status N/A [facility] 11-21-2023 Functional Status N/A [facility] Clinical Notes 06-01-2018 to 01-09-2024 Cinthia [...] a smoker Tobacco Use Screening; Status:Complete; Done: [id number] Patient Instructions Please bring all medicines, vitamins, [...] Cinthia Vazquez MD. documented in this encounter [facility] Work Phone: 01-09-2024 Instructions Nathaly Huffman [...] up one year documented in this encounter [facility] Work Phone: 12-31-2023 Note Clinician was able t o reach out to daughter. 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 Was able to share the need for a SLUMS test from Neurology and to test for Alzheimer's and or Dementia due to grandmother having Alzheimer's. Gave information to reach out to Product Specialist if anything else is needed. [facility] 12-23-2023 Note [id number] [facility] 12-23-2023 Note Cystoscopy with Uret hral [...] you have a fever over [address] [facility] 12-23-2023 Hospital Discharge instructions Patient Education [...] Up Care 11/26/2023 13:33:03 With:BRIGIDA WILLOUGHBY Address: [address] [facility] [place] [address] [facility] (1) When:6 weeks Comments:Call for followup appointment, with a bladder scan for PVR at that visit. Monitor your urinary flow after the dilation of the channel today. [facility] 11-21-2023 Hospital Discharge instructions Patient Education [...] nerve stimulation). ?For women, using a medical case manager to prevent urine leaks. This is a [...] right after experiencing incontinence. General instructions Take ktlg-wdt-bkviuxe and prescription medicines only as told by [...] important. Where to find more information [employer] [place] [employer] and [employer]estive and Kidney Diseases: www.niddk.nih.gov [employer]: www.urologyhealth.org Contact a health care [...] provider. Document Revised: 06/23/2021 Document Reviewed: 06/23/2021 [employer]u Patient Education 2022 [employer]. Follow Up Care 09/03/2023 10:14:29 With:BRIGIDA WILLOUGHBY PA-C, URL Address: [address] [place], [place] [address]stan [address] [facility] [place] [address] [phone] When: Unknown [facility] Caity 07-02-2023 Evaluation note Encounter Date [...] obesity (ICD-10 - E66.01) advised weight loss [facility] Other 07-31-2023 Evaluation note* Encounter Date Diagnosis [...] pain of left shoulder (ICD-10 - M25.512) [facility] Other 06-15-2023 Evaluation + Plan note Diagnostic Tests Pending * Urine Culture 05/16/23 [facility]01-17-2023 Evaluation note* Encounter Date Diagnosis Assessment Notes Treatment Notes Treatment Clinical Notes Dec, Dislocation of right shoulder joint, subsequent encounter (ICD-10 - S43.004D) Patient instructed on gentle motion and strength exercise. We will consider an MRI of the shoulder to rule out a rotator cuff tear, if patient has increased pain. We will f/u in 6-8 weeks, or sooner if patient needs [facility] Other 12-20-2022 Evaluation note* Encounter Date Diagnosis [...] age range than in a younger person. [facility] Other 11-29-2022 Evaluation note* Encounter Date Diagnosis [...] follows with her PCP for hyperlipidemia management [facility] Other [id number] NotePROCEDURE: XR SHOULDER LT 2V or > HISTORY: Pain of left shoulder joint COMPARISON: None. FINDINGS: BONES:No fracture, dislocation, bone lesion. Narrowing and mild degenerative changes of the acromioclavicular joint. SOFT TISSUES:No visible soft tissue swelling. EFFUSION:None visible. OTHER: Negative. IMPRESSION: 1. No acute bone abnormality. Electronically authenticated by: ADAMS RAGSDALE Date: 2022-08-27 21:59[facility]09-26-2022 NotePROCEDURE: XR FEMUR RT HISTORY: Pain in right leg after falling COMPARISON: None. FINDINGS: BONES:Mild degenerative changes of hip joint. Right knee replacement. No fracture or dislocation. SOFT TISSUES:No visible soft tissue swelling. EFFUSION:None visible. OTHER: Negative. IMPRESSION: 1. No acute bone abnormality. Electronically authenticated by: ADAMS RAGSDALE Date: 2022-08-27 21:56[facility]09-26-2022 NotePROCEDURE: XR ELBOW RT MIN 3 [...] authenticated by: ADAMS RAGSDALE Date: 2022-08-27 21:53[id number] NotePROCEDURE: XR ELBOW RT MIN 3 VIEWS, XR HUMERUS RT MIN 2 V HISTORY: Elbow joint pain after falling COMPARISON: None. FINDINGS: BONES:No fracture, dislocation, bone lesion. Degenerative changes of the acromioclavicular joint. SOFT TISSUES:No visible soft tissue swelling. EFFUSION:None visible. OTHER: Negative. IMPRESSION: 1. No acute bone abnormality the right humerus or elbow joint. Electronically authenticated by: ADAMS RAGSDALE Date: 2022-08-27 21:53[facility]06-14-2022 Evaluation note* Encounter Date Diagnosis Assessment [...] Hyperlipidemia, unspecified hyperlipidemia type (ICD-10 - E78.5) [facility] Other [id number] History general Narrative - Reported* Type Description Date Medical History guillan-barre 2002 Medical History DM Medical History shingles Medical History SC 06/2018 Medical History heart attack Medical History PARESTHESIA Medical History [place] Medical History MACROGLOSSIA Surgical History back surgery 2011 Surgical History meniscus repair left knee Surgical History hysterectomy 2015 Surgical History 2 heart stents 06/2018 Surgical History right TKA 03/04/18 Hospitalization History see above [facility] Other Evaluation + Plan note Future Appointments Appointment Date:11/21/2023 10:30:00 AM Scheduled Provider:BRIGIDA WILLOUGHBY PA-C Location:[facility] Appointment [facility]O [facility] Future Appointments Appointment Date:02/24/2024 10:15:00 AM Scheduled Provider:Jose Snow MD [facility] Appointment Type: Open Appointment Date:02/27/2024 11:15:00 AM Scheduled Provider:BRIGIDA WILLOUGHBY PA-C Location:[facility] Appointment Type:URO Office Visit [facility] Evaluation + Plan note Future Appointments Appointment Date:02/04/2024 11:20:00 AM Scheduled Provider:BRIGIDA WILLOUGHBY PA-C Location:[facility] Appointment Type:URO Office Visit Appointment Date:02/24/2024 10:15:00 AM Scheduled Provider:Jose Snow MD Location:[facility] Appointment Type:FM Open Appointment Date:03/03/2024 02:00:00 PM Scheduled Provider:BRIGIDA WILLOUGHBY PA-C Location:[facility] Appointment Type:URO [facility] noteNo InformationNort [employer] Other Evaluation noteNo assessment information available [facility] Work Phone: Evaluation note* Diagnosis 2-vessel coronary artery disease- Primary Essential hypertension Unspecified essential hypertension Mixed hyperlipidemia H/O non-ST elevation myocardial infarction (NSTEMI) Post PTCA Postsurgical percutaneous transluminal coronary angioplasty status Morbid obesity (CMS/HCC) Morbid obesity documented in this encounter [facility] Work Phone: History of Present illness [...] 10-12 pounds by next time [facility] [address] DO Work Phone: History of Present [...] 10-12 pounds by next time [facility] orderbird AG DO Work Phone: Hospital course Narrative No data available for this section [facility] No data available for this section [facility] No data available for this section [facility] for [facility] (narrative)* Consultation (Routine) - Authorized Specialty Diagnoses / Procedures Referred By Contac t Referred To Contact Cardiology Diagnoses 2-vessel coronary artery disease Essential hypertension Mixed hyperlipidemia Procedures Follow Up In Cardiology Cinthia Vazquez MD [address] [facility] 2, [address] [address] Cinthia Vazquez MD [address] [facility] 2, [place] [address] [place] [id number] Referral ID Status Reason Start Date Expiration Date V isits Requested Visits Authorized [id number] Authorized 01/09/2024 01/08/2025 1 1 [facility] Work Phone: Summary Purpose Family History [...] section and content) DATE CREATED AUTHOR 01/19/2021 [facility] DATE CREATED AUTHOR AUTHOR'S ORGANIZ ATION 04/07/2023 [facility] DATE CREATED AUTHOR AUTHOR'S ORGANIZ ATION 04/07/2023 [facility] DATE CREATED AUTHOR AUTHOR'S ORGANIZ ATION 05/11/2023 [facility] DATE CREATED AUTHOR AUTHOR'S ORGANIZ ATION 08/08/2023 [facility] DATE CREATED AUTHOR AUTHOR'S ORGANIZ ATION 01/13/2024 [facility] DATE CREATED AUTHOR AUTHOR'S ORGANIZ ATION 02/21/2024 [facility] REASON FOR VISIT (unrecogniz ed section [...] Active Anjana Pal APRN Attending Provider Active 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 [facility] [employer] [facility]. provides no warranty or guarantee of the accuracy or completeness of information in this document.
== END 2024-02-24 19:56 | disposition home or self-care (01) ==
LOC: SLEEP 19:55
PROVIDERS: PCP Family Medicine; Visit Provider Psychiatry & Neurology Neurology
DX: G47.33 Obstructive sleep apnea (adult) (pediatric) (principal)
CPT/HCPCS: 95811

== ENCOUNTER 2024-03-16 14:57 | Outpatient (REF) | payer MEDICARE, OTHER, SELFPAY ==
[2024-03-16 15:24] LABS: Bilirubin Urine NEGATIVE (NEGATIVE); Blood Urine SMALL (NEGATIVE); Clarity Urine CLEAR (CLEAR); Color Urine YELLOW (YELLOW); Glucose Urine UA 100 mg/dL (NEGATIVE); Ketones Urine TRACE mg/dL (NEGATIVE); Leukocyte Esterase Urine NEGATIVE (NEGATIVE); Nitrite Urine NEGATIVE (NEGATIVE); Protein Urine 30 mg/dL (NEG/TRACE); Specific Gravity Urine 1.025 (1.005-1.025); Urobilinogen Urine 0.2 EU/dL (0.2-1.0)
== END 2024-03-16 14:58 | disposition home or self-care (01) ==
LOC: LAB 14:57
PROVIDERS: PCP Family Medicine; Visit Provider Family Medicine
DX: N39.0 Urinary tract infection, site not specified (principal)
CPT/HCPCS: 81003; 87086; 87150; 87186

== ENCOUNTER 2024-03-18 10:02 | Emergency (ER) | payer MEDICARE, OTHER, SELFPAY ==
[2024-03-18 10:04] VITALS: BP 194/96; PULSE 68; TEMP 36.6; O2SAT 97; BMI 41.2
--- NOTE | 2024-03-18 10:18 | XR_ITS ---
The [address] [address] Patient Name: MALCOM KNOWLES MRN: [id number] date: 1955 Sex: F Assigned Patient Location: ER Current Patient Location: ED.MAIN Accession/Order Number: [id number] Exam Date: 03/18/2024 10:32 Report Date: 03/18/2024 11:35 At the request of: MAXX MILLER Procedure: XR shoulder RT min 2V EXAM: Right shoulder HISTORY: . Fall . COMPARISON: None. TECHNIQUE: 3 views FINDINGS: No fracture or dislocation of the right shoulder is noted. Early arthritic changes are noted involving the humeral head. Mild arthritic changes of the right AC joint are noted. Surrounding soft tissues are unremarkable. XR/XR shoulder RT min 2V IMPRESSION: 1. No acute bony abnormality of the right shoulder. 2. Early to mild arthritic changes involving the right shoulder most prominent involving the AC joint. Electronically authenticated by: NIALL AKINS Date: 03/18/2024 11:35
--- NOTE | 2024-03-18 10:18 | ED_ITS ---
HPI HPI - Fall General Chief Complaint: Fall Stated Complaint: FALL YESTERDAY Time Seen by Provider: 03/18/24 10:12 Source: patient Mode of arrival: ambulance History of Present Illness HPI Narrative: 68-year-old female presents for pain in her right shoulder. She fell last night and landed on her shoulder. She points to the top of the shoulder to indicate where it mostly hurts. The elbow and wrist do not hurt. She does not believe she hit her head and she did not have headache last night but she has a posterior headache today. No neck pain. She states that her right leg hurts just a little bit but she is not concerned about it. She was transported here by paramedics from [facility]. The pain is moderate. Related Data Home Medications ?Medication ?Instructions ?Recorded ?Confirmed Saccharomyces boulardii 250 mg 250 mg PO DAILY 02/14/24 02/14/24 capsule (Florastor) acetaminophen 500 mg capsule 500 mg PO BID 02/14/24 02/14/24 alpha lipoic acid 600 mg tablet 600 mg PO DAILY 02/14/24 02/14/24 atorvastatin 80 mg tablet 80 mg PO DAILY 02/14/24 02/14/24 biotin 10 mg tablet 10 mg PO DAILY 02/14/24 02/14/24 cetirizine 5 mg tablet 5 mg PO DAILY 02/14/24 02/14/24 cholecalciferol (vitamin D3) 25 1,000 unit PO DAILY 02/14/24 02/14/24 mcg (1,000 unit) capsule (Vitamin D3) clopidogrel 75 mg tablet 75 mg PO DAILY 02/14/24 02/14/24 cranberry 400 mg capsule 450 mg PO DAILY 02/14/24 02/14/24 cyanocobalamin (vitamin B-12) 1,000 mcg PO DAILY 02/14/24 02/14/24 1,000 mcg tablet (Vitamin B-12) d-mannose 500 mg capsule 500 mg PO DAILY 02/14/24 02/14/24 docusate sodium 100 mg capsule 100 mg PO DAILY 02/14/24 02/14/24 (Col-Rite) donepezil 10 mg tablet 10 mg PO BID 02/14/24 02/14/24 dulaglutide 3 mg/0.5 mL 3 mg subcut .weekly 02/14/24 02/14/24 subcutaneous pen injector (Trulicity) famotidine 20 mg tablet 20 mg PO DAILY 02/14/24 02/14/24 furosemide 40 mg tablet 40 mg PO DAILY 02/14/24 02/14/24 gabapentin 600 mg tablet 600 mg PO TID 02/14/24 02/14/24 glimepiride 2 mg tablet 2 mg PO DAILY 02/14/24 02/14/24 glucosamine sulfate 500 mg tablet 3,000 mg PO DAILY 02/14/24 02/14/24 (Glucosamine) insulin aspart U-100 100 unit/mL 1 sliding scale dose subcut DAILY 02/14/24 02/14/24 subcutaneous solution (Novolog U-100 Insulin aspart) insulin glargine 100 unit/mL (3 30 unit subcut QPM 02/14/24 02/14/24 mL) subcutaneous pen (Basaglar KwikPen U-100 Insulin) loperamide 2 mg capsule 2 mg PO Q6H PRN loose stool 02/14/24 02/14/24 magnesium hydroxide 400 mg/5 mL 5 ml PO DAILY PRN constipation 02/14/24 02/14/24 oral suspension (Milk of Magnesia) memantine 10 mg tablet 10 mg PO DAILY 02/14/24 02/14/24 yphrtxss-bcsf-eqeklmu gluconate 9 15 ml PO DAILY 02/14/24 02/14/24 mg iron/15 mL (15 mL) oral liquid nitroglycerin 0.4 mg sublingual 0.4 mg sublingual Q5M PRN chest 02/14/24 02/14/24 tablet pain ondansetron 4 mg disintegrating 4 mg PO TID-QID PRN nausea and 02/14/24 02/14/24 tablet vomiting polyethylene glycol 3350 17 17 g PO QDAY 02/14/24 02/14/24 gram/dose oral powder (ClearLax) potassium chloride 20 mEq 20 meq PO DAILY 02/14/24 02/14/24 tablet,extended release(part/cryst) pramoxine 1 % topical foam 1 applic WA TID 02/14/24 02/14/24 (Proctofoam) venlafaxine 150 mg 150 mg PO DAILY 02/14/24 02/14/24 capsule,extended release 24 hr vit C 250 mg-vit E 90 mg-zinc 40 1 tab PO DAILY 02/14/24 02/14/24 mg-copper 1 be-mxjwrq-cufrfl capsule (PreserVision AREDS-2) Allergies Allergy/AdvReac Type Severity Reaction Status Date / Time Influenza Virus Vaccines Allergy Intermediate Verified 02/14/24 21:27 Sulfa (Sulfonamide Allergy Intermediate Verified 02/14/24 21:27 Antibiotics) Opioid HPI Opioid Management Most Recent Pain and Opioid Data: No Data to Display Review of Systems ROS Narrative A ten point review of systems is negative except as noted above. Exam Narrative Exam Narrative: Nurses note and vital signs reviewed and patient is not hypoxic. General: The patient appears well and in no apparent distress. Patient is resting comfortably on cart. Skin: Warm, dry, no pallor noted. There is no rash noted. Head: Normocephalic, atraumatic, C-spine nontender Eye: Normal conjunctiva, no drainage Ears, Nose, Mouth, and Throat: oral mucosa is moist. Nares patent. Cardiovascular: Regular Rate and Rhythm Respiratory: Patient is in no distress, no accessory muscle use, lungs are clear to auscultation, no wheezing, rales or rhonchi GI: Soft and nontender Musculoskeletal: Palpation of the right leg shows no focal area of tenderness. Knee and hip have good range of motion. The right wrist and elbow are nontender. She has some tenderness in the right shoulder diffusely but there is no bruise or erythema or deformity. Right shoulder has good range of motion. Neurological: A&O, normal speech Psychiatric: Cooperative Constitutional Vital Signs, click to edit/add: Last Vital Signs Temp 98 F 03/18/24 10:04 Pulse 68 03/18/24 10:04 Resp 16 03/18/24 10:04 BP 194/96 H 03/18/24 10:04 Pulse Ox 97 03/18/24 10:04 O2 Del Method Room Air 03/18/24 10:04 Course Vital Signs Vital signs: Vital Signs Temperature 98 F 03/18/24 10:04 Pulse Rate 68 03/18/24 10:04 Respiratory Rate 16 03/18/24 10:04 Blood Pressure 194/96 H 03/18/24 10:04 Pulse Oximetry 97 03/18/24 10:04 Oxygen Delivery Method Room Air 03/18/24 10:04 Temperature 98 F 03/18/24 10:04 Pulse Rate 68 03/18/24 10:04 Respiratory Rate 16 03/18/24 10:04 Blood Pressure 194/96 H 03/18/24 10:04 Pulse Oximetry 97 03/18/24 10:04 Oxygen Delivery Method Room Air 03/18/24 10:04 MDM - Fall MDM Narrative Medical decision making narrative: X-ray of the shoulder and CT of the brain are both negative. She is able to be released back to care facility. Findings were discussed with the patient. Imaging Data CT scan - head: Radiologist's impression: ITS Impressions Head CT 03/18/24 10:18 IMPRESSION: No acute intracranial process is noted. Electronically authenticated by: JOSÉ ALLAN Date: 03/18/2024 11:05 Shoulder X-Ray 03/18/24 10:18 IMPRESSION: 1. No acute bony abnormality of the right shoulder. 2. Early to mild arthritic changes involving the right shoulder most prominent involving the AC joint. Electronically authenticated by: NIALL AKINS Date: 03/18/2024 11:35 Discharge Plan Discharge Stand Alone Forms: Portal Instructions Chief Complaint: Fall Clinical Impression: Fall, Contusion of right shoulder Patient Disposition: Home, Self-Care Time of Disposition Decision: 11:46 Condition: Good Mode of Transportation: Private Vehicle Prescriptions / Home Meds: No Action acetaminophen 500 mg capsule 500 mg PO BID alpha lipoic acid 600 mg tablet 600 mg PO DAILY atorvastatin 80 mg tablet 80 mg PO DAILY insulin glargine [Basaglar KwikPen U-100 Insulin] 100 unit/mL (3 mL) insulin pen 30 unit subcut QPM biotin 10 mg tablet 10 mg PO DAILY vwtdwjsm-uya-qhkzepa gluconate 9 mg iron/ 15 mL (15 mL) liquid 15 ml PO DAILY cetirizine 5 mg tablet 5 mg PO DAILY polyethylene glycol 3350 [ClearLax] 17 gram/dose powder 17 g PO QDAY clopidogrel 75 mg tablet 75 mg PO DAILY cranberry 400 mg capsule 450 mg PO DAILY Rx Instructions: administer with a meal d-mannose 500 mg capsule 500 mg PO DAILY docusate sodium [Col-Rite] 100 mg capsule 100 mg PO DAILY donepezil 10 mg tablet 10 mg PO BID famotidine 20 mg tablet 20 mg PO DAILY furosemide 40 mg tablet 40 mg PO DAILY gabapentin 600 mg tablet 600 mg PO TID glimepiride 2 mg tablet 2 mg PO DAILY glucosamine sulfate [Glucosamine] 500 mg tablet 3,000 mg PO DAILY Rx Instructions: administer with meals memantine 10 mg tablet 10 mg PO DAILY potassium chloride 20 mEq tablet,ER particles/crystals 20 meq PO DAILY PreserVision AREDS-2 250-90-40-1 mg capsule 1 tab PO DAILY Saccharomyces boulardii [Florastor] 250 mg capsule 250 mg PO DAILY pramoxine [Proctofoam] 1 % foam 1 applic WA TID venlafaxine 150 mg capsule,extended release 24hr 150 mg PO DAILY cyanocobalamin (vitamin B-12) [Vitamin B-12] 1,000 mcg tablet 1,000 mcg PO DAILY cholecalciferol (vitamin D3) [Vitamin D3] 25 mcg (1,000 unit) capsule 1,000 unit PO DAILY insulin aspart U-100 [Novolog U-100 Insulin aspart] 100 unit/mL solution 1 sliding scale dose subcut DAILY Trulicity 3 mg/0.5 mL pen injector 3 mg SUBCUT .weekly Rx Instructions: saturday loperamide 2 mg capsule 2 mg PO Q6H PRN (Reason: loose stool) magnesium hydroxide [Milk of Magnesia] 400 mg/5 mL suspension 5 ml PO DAILY PRN (Reason: constipation) nitroglycerin 0.4 mg tablet, sublingual 0.4 mg sublingual Q5M PRN (Reason: chest pain) Rx Instructions: do not exceed 3 doses per episode ondansetron 4 mg tablet,disintegrating 4 mg PO TID-QID PRN (Reason: nausea and vomiting) Print Language: Vietnamese Instructions: Contusion in Adults (ED), Fall Prevention (ED) Referrals: JOSE SNOW [Primary Care Provider] - 1 week
--- NOTE | 2024-03-18 10:18 | CT_ITS ---
The [address] [address] Patient Name: MALCOM KNOWLES MRN: [id number] date: 1955 Sex: F Assigned Patient Location: ER Current Patient Location: ER Accession/Order Number: [id number] Exam Date: 03/18/2024 10:32 Report Date: 03/18/2024 11:05 At the request of: MAXX MILLER Procedure: CT head/brain wo con CT head/brain wo con, 03/18/2024 10:32 AM EDT INDICATION: fall COMPARISON: There is no appropriate prior study for comparison. TECHNIQUE: Axial CT images of the brain from skull base to vertex, including portions of the face and sinuses, were obtained without contrast . Multiplanar reformatted images were generated and reviewed as needed. Dose reduction techniques were achieved by using automated exposure control and/or adjustment of mA and/or kV according to patient size and/or use of iterative reconstruction technique. FINDINGS: The cerebral sulci as well as ventricular system are appropriate for age. There is no intracranial mass, mass effect, midline shift, intra or extra-axial fluid collection or hemorrhage. Periventricular and centrum semiovale hypodensities are most likely consistent with microvascular ischemic changes. The visualized portions of orbits, mastoid air cells as well as paranasal sinuses are unremarkable. There is status post right lens replacement. There is no suspicious osteolytic or osteoblastic lesion. CT/CT head/brain wo con IMPRESSION: No acute intracranial process is noted. Electronically authenticated by: JOSÉ ALLAN Date: 03/18/2024 11:05
--- NOTE | 2024-03-18 11:49 | XR_ITS ---
The [address] [address] Patient Name: MALCOM KNOWLES MRN: [id number] date: 1955 Sex: F Assigned Patient Location: ER Current Patient Location: ER Accession/Order Number: [id number] Exam Date: 03/18/2024 11:55 Report Date: 03/18/2024 12:47 At the request of: MAXX MILLER Procedure: XR thoracic spine 2V EXAMINATION: XR thoracic spine 2V HISTORY: fall COMPARISON: No relevant comparison available. FINDINGS: BONES: Normal alignment with no acute fracture or spondylolisthesis. Moderate to severe degenerative spondylosis. Moderate facet osteoarthropathy DISC SPACES: The level disc space narrowing with endplate sclerosis most significant at T10-T11 PARASPINOUS: Negative. No paraspinous abnormality is seen. OTHER: Negative. XR/XR thoracic spine 2V IMPRESSION: No acute abnormality Electronically authenticated by: NIALL THAKUR Date: 03/18/2024 12:47
== END 2024-03-18 15:05 | disposition home or self-care (01) ==
PROVIDERS: Emergency Provider Emergency Medicine; PCP Family Medicine
DX: S40.011A Contusion of right shoulder, initial encounter (principal); W19.XXXA Unspecified fall, initial encounter; M54.6 Pain in thoracic spine; R51.9 Headache, unspecified; Z79.899 Other long term (current) drug therapy; Z79.4 Long term (current) use of insulin
CPT/HCPCS: 70450; 72070; 73030; 99284

== ENCOUNTER 2024-03-28 08:09 | Emergency (ER) | payer MEDICARE, OTHER, SELFPAY ==
[2024-03-28 08:00] VITALS: BP 174/89; PULSE 71; TEMP 37.1; O2SAT 98; BMI 50.3
--- NOTE | 2024-03-28 08:01 | CT_ITS ---
The [address] [address] Patient Name: MALCOM KNOWLES MRN: [id number] date: 1955 Sex: F Assigned Patient Location: ED.MAIN Current Patient Location: Accession/Order Number: [id number] Exam Date: 03/28/2024 08:03 Report Date: 03/28/2024 08:33 At the request of: REAL HERNANDEZ Procedure: CT head/brain wo con EXAMINATION: CT head/brain wo con HISTORY: chi , fell striking head COMPARISON: CT head 03/18/2024 TECHNIQUE: Axial CT images were obtained without IV contrast. Dose reduction techniques were achieved by using automated exposure control and/or adjustment of mA and/or kV according to patient size and/or use of iterative reconstruction technique. FINDINGS: BRAIN: Decreased attenuation within the periventricular deep white matter favoring chronic small vessel ischemic changes. Mild uniform atrophy bilaterally. No edema, hemorrhage, mass, acute infarction, or inappropriate atrophy. CSF SPACES: No hydrocephalus, subarachnoid hemorrhage, or mass. Appropriate for age. SKULL: No fracture, mass, or other significant visible lesion. SINUSES: No significant mucosal thickening or fluid on the limited views. ORBITS: No appreciable abnormality on the limited views. OTHER: Negative CT/CT head/brain wo con IMPRESSION: 1. No intracranial hemorrhage or appreciable acute abnormality. 2. Stable age consistent atrophy and chronic small vessel ischemic changes. 3. No fracture of the calvarium or scalp hematoma. Electronically authenticated by: ADAMS RAGSDALE Date: 03/28/2024 08:33
--- NOTE | 2024-03-28 08:03 | ED_ITS ---
HPI HPI - General Adult General Chief complaint: Head Injury Stated complaint: FALL Time Seen by Provider: 03/28/24 08:26 History of Present Illness HPI narrative: 68-year-old female who is presenting to the ER after a closed head injury.. Patient said that she had a misstep, secondary to chronic leg weakness on the left side. Patient stated that she fell forward, hitting the right side of her head, to the right parietal area. Patient has minimal swelling to the area, no abrasion. She has no neck pain. Patient arrived in no cervical collar. Patient came in by EMS. Patient is alert and orient x 3, GCS of 15, very pleasant. Patient states that her left leg has been weak for months, she has not said that she is any type of therapy For left leg weakness. Patient does use walker for transfers, also wheelchair. Patient lives at a nursing facility. Patient has no chest pain or shortness of breath. Patient does have some bruising to the anterior aspect of her right forearm, minimal abrasion. She has full range of motion of all extremities with no difficulty. Patient states she has a baseline weakness to left leg, no acute findings, no acute strokelike signs or symptoms. Patient is on Plavix. It was noted after chart review the patient is a DNR CC All systems are negative except as noted/marked. All systems reviewed and otherwise negative. Nurses note and vital signs reviewed and patient is not hypoxic. General: The patient appears well and in no apparent distress. Patient is resting comfortably on cart. Patient is not toxic, lethargic, or listless Skin: Warm, dry, no pallor noted. There is no rash noted. No petechiae, purpura. Head: Normocephalic, atraumatic; patient has no midline or paracervical tenderness to palpation. Full range of motion of cervical spine no difficulty. No scalp hematoma noted. Eye: Normal conjunctiva, no drainage, EOMI. PERRL Ears, Nose, Mouth, and Throat: oral mucosa is moist. Nares patent. Mouth without vesicles. Cardiovascular: Regular Rate and Rhythm, no murmur, gallop, rub Respiratory: Patient is in no distress, no accessory muscle use, lungs are clear to auscultation, no wheezing, rales or rhonchi Back: non-tender, no CVA tenderness bilaterally to percussion. No CT LS midline pain GI: Obese, no tenderness to palpation, no masses appreciated. No rebound, guarding, or rigidity noted. No distention Musculoskeletal: Patient has full range of motion of all of the extremities, no motor, sensory, or focal neurological deficits. Patient is she has chronic left lower leg weakness; no acute new weakness to the left lower extremity. No other acute strokelike signs or symptoms. Neurological: A&O x4, normal speech Psychiatric: Cooperative Related Data Home Medications ?Medication ?Instructions ?Recorded ?Confirmed Saccharomyces boulardii 250 mg 250 mg PO DAILY 02/14/24 02/14/24 capsule (Florastor) acetaminophen 500 mg capsule 500 mg PO BID 02/14/24 02/14/24 alpha lipoic acid 600 mg tablet 600 mg PO DAILY 02/14/24 02/14/24 atorvastatin 80 mg tablet 80 mg PO DAILY 02/14/24 02/14/24 biotin 10 mg tablet 10 mg PO DAILY 02/14/24 02/14/24 cetirizine 5 mg tablet 5 mg PO DAILY 02/14/24 02/14/24 cholecalciferol (vitamin D3) 25 1,000 unit PO DAILY 02/14/24 02/14/24 mcg (1,000 unit) capsule (Vitamin D3) clopidogrel 75 mg tablet 75 mg PO DAILY 02/14/24 02/14/24 cranberry 400 mg capsule 450 mg PO DAILY 02/14/24 02/14/24 cyanocobalamin (vitamin B-12) 1,000 mcg PO DAILY 02/14/24 02/14/24 1,000 mcg tablet (Vitamin B-12) d-mannose 500 mg capsule 500 mg PO DAILY 02/14/24 02/14/24 docusate sodium 100 mg capsule 100 mg PO DAILY 02/14/24 02/14/24 (Col-Rite) donepezil 10 mg tablet 10 mg PO BID 02/14/24 02/14/24 dulaglutide 3 mg/0.5 mL 3 mg subcut .weekly 02/14/24 02/14/24 subcutaneous pen injector (Trulicity) famotidine 20 mg tablet 20 mg PO DAILY 02/14/24 02/14/24 furosemide 40 mg tablet 40 mg PO DAILY 02/14/24 02/14/24 gabapentin 600 mg tablet 600 mg PO TID 02/14/24 02/14/24 glimepiride 2 mg tablet 2 mg PO DAILY 02/14/24 02/14/24 glucosamine sulfate 500 mg tablet 3,000 mg PO DAILY 02/14/24 02/14/24 (Glucosamine) insulin aspart U-100 100 unit/mL 1 sliding scale dose subcut DAILY 02/14/24 02/14/24 subcutaneous solution (Novolog U-100 Insulin aspart) insulin glargine 100 unit/mL (3 30 unit subcut QPM 02/14/24 02/14/24 mL) subcutaneous pen (Basaglar KwikPen U-100 Insulin) loperamide 2 mg capsule 2 mg PO Q6H PRN loose stool 02/14/24 02/14/24 magnesium hydroxide 400 mg/5 mL 5 ml PO DAILY PRN constipation 02/14/24 02/14/24 oral suspension (Milk of Magnesia) memantine 10 mg tablet 10 mg PO DAILY 02/14/24 02/14/24 ndlrijiq-behm-etbtijc gluconate 9 15 ml PO DAILY 02/14/24 02/14/24 mg iron/15 mL (15 mL) oral liquid nitroglycerin 0.4 mg sublingual 0.4 mg sublingual Q5M PRN chest 02/14/24 02/14/24 tablet pain ondansetron 4 mg disintegrating 4 mg PO TID-QID PRN nausea and 02/14/24 02/14/24 tablet vomiting polyethylene glycol 3350 17 17 g PO QDAY 02/14/24 02/14/24 gram/dose oral powder (ClearLax) potassium chloride 20 mEq 20 meq PO DAILY 02/14/24 02/14/24 tablet,extended release(part/cryst) pramoxine 1 % topical foam 1 applic SC TID 02/14/24 02/14/24 (Proctofoam) venlafaxine 150 mg 150 mg PO DAILY 02/14/24 02/14/24 capsule,extended release 24 hr vit C 250 mg-vit E 90 mg-zinc 40 1 tab PO DAILY 02/14/24 02/14/24 mg-copper 1 do-shozgz-jvbgqq capsule (PreserVision AREDS-2) Allergies Allergy/AdvReac Type Severity Reaction Status Date / Time Influenza Virus Vaccines Allergy Intermediate Verified 02/14/24 21:27 Sulfa (Sulfonamide Allergy Intermediate Verified 03/15/24 21:27 Antibiotics) Opioid HPI Opioid Management Most Recent Opioid Data: No Data to Display Exam Constitutional Vital Signs, click to edit/add: Last Vital Signs Temp 98.8 F 03/28/24 08:00 Pulse 75 03/28/24 09:38 Resp 18 03/28/24 09:38 BP 178/79 H 03/28/24 09:38 Pulse Ox 98 03/28/24 09:38 O2 Del Method Room Air 03/28/24 09:38 Course Vital Signs Vital signs: Vital Signs Temperature 98.8 F 03/28/24 08:00 Pulse Rate 71 03/28/24 08:00 Respiratory Rate 18 03/28/24 08:00 Blood Pressure 174/89 H 03/28/24 08:00 Pulse Oximetry 98 03/28/24 08:00 Oxygen Delivery Method Room Air 03/28/24 08:00 Temperature 98.8 F 03/28/24 08:00 Pulse Rate 75 03/28/24 09:38 Respiratory Rate 18 03/28/24 09:38 Blood Pressure 178/79 H 03/28/24 09:38 Pulse Oximetry 98 03/28/24 09:38 Oxygen Delivery Method Room Air 03/28/24 09:38 Medical Decision Making MDM Narrative Medical decision making narrative: Patient says that she has chronic left lower leg weakness, there is no acute changes to her left leg weakness. Patient is on Plavix. Patient did fall, hitting the right side of her upper head against a counter. Patient has normal bruising and scratch/abrasion to the right forearm as well. STAT was done on the head secondary to injury and Plavix, no acute findings. Patient daughter was at bedside. Education done at bedside. Patient will be sent back to monitor. Head injury instructions were done at bedside and on discharge paperwork Discharge Plan Discharge Stand Alone Forms: Portal Instructions Chief Complaint: Head Injury Clinical Impression: Head injury Patient Disposition: Home, Self-Care Time of Disposition Decision: : Condition: Fair Prescriptions / Home Meds: No Action acetaminophen 500 mg capsule 500 mg PO BID alpha lipoic acid 600 mg tablet 600 mg PO DAILY atorvastatin 80 mg tablet 80 mg PO DAILY insulin glargine [Basaglar KwikPen U-100 Insulin] 100 unit/mL (3 mL) insulin pen 30 unit subcut QPM biotin 10 mg tablet 10 mg PO DAILY wbvnsurm-szk-lfauywz gluconate 9 mg iron/ 15 mL (15 mL) liquid 15 ml PO DAILY cetirizine 5 mg tablet 5 mg PO DAILY polyethylene glycol 3350 [ClearLax] 17 gram/dose powder 17 g PO QDAY clopidogrel 75 mg tablet 75 mg PO DAILY cranberry 400 mg capsule 450 mg PO DAILY Rx Instructions: administer with a meal d-mannose 500 mg capsule 500 mg PO DAILY docusate sodium [Col-Rite] 100 mg capsule 100 mg PO DAILY donepezil 10 mg tablet 10 mg PO BID famotidine 20 mg tablet 20 mg PO DAILY furosemide 40 mg tablet 40 mg PO DAILY gabapentin 600 mg tablet 600 mg PO TID glimepiride 2 mg tablet 2 mg PO DAILY glucosamine sulfate [Glucosamine] 500 mg tablet 3,000 mg PO DAILY Rx Instructions: administer with meals memantine 10 mg tablet 10 mg PO DAILY potassium chloride 20 mEq tablet,ER particles/crystals 20 meq PO DAILY PreserVision AREDS-2 250-90-40-1 mg capsule 1 tab PO DAILY Saccharomyces boulardii [Florastor] 250 mg capsule 250 mg PO DAILY pramoxine [Proctofoam] 1 % foam 1 applic SC TID venlafaxine 150 mg capsule,extended release 24hr 150 mg PO DAILY cyanocobalamin (vitamin B-12) [Vitamin B-12] 1,000 mcg tablet 1,000 mcg PO DAILY cholecalciferol (vitamin D3) [Vitamin D3] 25 mcg (1,000 unit) capsule 1,000 unit PO DAILY insulin aspart U-100 [Novolog U-100 Insulin aspart] 100 unit/mL solution 1 sliding scale dose subcut DAILY Trulicity 3 mg/0.5 mL pen injector 3 mg SUBCUT .weekly Rx Instructions: saturday loperamide 2 mg capsule 2 mg PO Q6H PRN (Reason: loose stool) magnesium hydroxide [Milk of Magnesia] 400 mg/5 mL suspension 5 ml PO DAILY PRN (Reason: constipation) nitroglycerin 0.4 mg tablet, sublingual 0.4 mg sublingual Q5M PRN (Reason: chest pain) Rx Instructions: do not exceed 3 doses per episode ondansetron 4 mg tablet,disintegrating 4 mg PO TID-QID PRN (Reason: nausea and vomiting) Print Language: Malaysian Instructions: Head Injury (ED) Additional Instructions: Head injury instructions were discussed at bedside and on discharge paperwork. Follow-up with PCP as needed, continue therapy. Use Tylenol if needed for headache. Referrals: JOSE SNOW [Primary Care Provider] - 1 week Discharge Date/Time: 03/28/24 09:39
--- OUTSIDE RECORDS SUMMARY | 2024-03-28 08:13 | XMS_ITS | CCD ---
Author Organization [facility] Care Team Providers Care Record Clerk Name Role Phone Dusty Walters Unavailable Unavailable [...] ., DR DUSTY Seals Primary Care Unavailable RYANNY ., DONELL HAMM Consulting Unavailsharri GERMAN .CONNER Admitting Unavailable NIALL CELIS Consulting Unavailable FLORIN ZHONG Consulting Unavailable THONY JOHNSTON Consulting Unavailable WALTERS ., DR DUSTY Seals Primary Care Unavailable ZIJAE, DR ADAMS Montesinos Consulting Unavailable MARKER ., [...] Unavailable PAY ., DR NOBLE Attending Unavailable ENID, DR AJ Montesinos Consulting Unavailable PAY ., DR NOBLE Admitting Unavailable PATTIE ., OSMEL Consulting Unavailable HECTOR, AJ Attending Unavailable WALTERS ., DR DUSTY Seals Primary Care Unavailable HECTOR, AJ Admitting Unavailable ZIJAE, DR ADAMS Montesinos Consulting Unavailable BEJ, AJ Consulting Unavailable MISC, DR ROSAS Consulting Unavailable MISC, DR ROSAS Attending Unavailable WALTERS ., DR DUSTY Seals Primary Care Unavailable MISC, DR ROSAS Admitting Unavailable JN, DR ADAMS Montesinos Consulting Unavailable WALTERS ., DR DUSTY Seals Consulting Unavailable WALTERS ., DR DUSTY Seals Attending Unavailable WALTERS ., DR DUSTY Seals Admitting Unavailable WALTERS ., DR DUSTY Seals Primary Care Unavailable IOWA, DR NIALL Underwood Consulting Unavailable HECTOR, AJ Admitting Unavailable WLATERS ., DR DUSTY Seals Primary Care Unavailable SHANNANJ, AJ Consulting Unavailable HECTOR, AJ Attending Unavailable Jose Snow. Primary Care Physician [phone] Brigida George Unavailable Tanika Lopez Unavailable MD Dusty Walters Primary Care Provider [phone] MD Lizandro Martins Attending Provider [phone] DARRICK Pal Attending Provider Anjana Pal Unavailable Lizandro Martins Admitting Unavailable Lizandro Martins Attending Unavailable Dusty Walters Primary Care Unavailable Anjana Pal Admitting Unavailable Anjana Pal Attending Unavailable Dusty Walters Primary Care Unavailable Jose Snow MD Primary Care Provider [phone] CINTHIA VAZQUEZ Attending Unavailable JOSE SNOW Primary Care Unavailable Mariangel Campbell Attending Unavailable BRIGIDA WILLOUGHBY Attending Unavailable BRIGIDA WILLOUGHBY Referring Unavailable BRIGIDA WILLOUGHBY Attending Unavailable ARNULFO ZHU Admitting Unavailable ARNULFO ZHU F Attending Unavailable Magui Sam Attending Unavailable CHIP CRAFT Referring Unavailable BRIGIDA WILLOUGHBY Attending Unavailable Joe BOOTH Admitting Unavailable Joe BOOTH Attending Unavailable Joe BOOTH Referring Unavailable Jose Snow Attending Unavailable Jose Snow Admitting Unavailable ARNULFO ZHU Consulting Unavailable MD ARNULFO ZHU Consulting Unavailable Jose Snow Attending Unavailable Jose Snow Admitting Unavailable AdrianMariangel Admitting Unavailable AdrianMariangel Attending Unavailable AdrianMariangel L Attending Unavailable Jose Snow EStephanie Attending Unavailable AdrianMariangel L Attending Unavailable Jose Snow Attending Unavailable Jose Snow Attending Unavailable Jose Snow Attending Unavailable Jose Snow Attending Unavailable BRIGIDA WILLOUGHBY Attending Unavailable CHIP CRAFT Referring Unavailable Allergies Allergy Classification Reported Allergen(s) Allergy Type Date of Onset Reaction(s) Facility (10 sources) Sulfonamides (Antibiotic); Translations: [Sulfa Drugs] Allergy to drug (finding) Unknown (qualifier value) [facility] (2 sources) FLU; Translations: [FLU] [facility]: (9 sources) Sulfonamides (Antibiotic) Drug allergy Unknown [facility] Other (10 sources) Influenza Vac Recom CARREON Quad PF Drug allergy 02-25-20 24 Unknown, Unknown Reaction [facility] (2 sources) Sulfonamides (Antibiotic) Drug allergy (disorder) [facility] (2 sources) Flu Vaccine [id number] (3 yr +) Drug allergy (disorder) 01-18-20 16 [facility] (6 sources) Sulfonamides (Antibiotic); Translations: [Sulfa (Sulfonamide Antibiotics)] Allergy to substance 03-31-20 19 Unknown [facility] (4 sources) Influenza Virus Vaccines; Translations: [Influenza Virus Vaccines] Allergy to substance 03-31-20 19 Hx. Guillian-Parkton ; told no flu vaccines [facility] (6 sources) influenza A virus A//[id number] (H1N1) antigen / influenza A virus A/[place]/[id number] (H3N2) antigen / influenza B virus B/[place] antigen / influenza B virus B/ antigen; Translations: [influenza virus vaccine] Drug Allergy [facility] Guero Comment on above: contraindicated due to guilian barre (2 sources) Flu Medicine; Translations: [FLU MEDICINE] Drug Allergy 12-16-19 24 Unknown [facility] (1 source) influenza virus vaccine, inactivated; Translations: [influenza virus vaccine, inactivated] Propensity to adverse reactions (disorder) [facility] Medications Current Medications Medication Drug Class(es) Dates Sig (Normalized) Sig (Original) acetaminophen 500 mg oral capsule (20 sources) Start: 02-25-2024 take 1000 mg by mouth once Acetaminophen Active 1000 MG PO Once February 25, 2024 12:00am Start: 05-16-2023 take 2 tablets by mo uth once daily acetaminophen 500 mg Tab 1,000 mg = 2 tab(s), Oral, Daily, Refills(s) 0 Start Date: 05/16/23 Status: Ordered Start: 05-16-2023 acetaminophen 500 mg Tab Refills(s) 0 Start Date: 05/16/23 Status: Ordered Start: 04-09-2019 End: 02-25-2024 take 325 mg by mouth every four hours Acetaminophen Discontinued 325 MG PO Q4H 100 April 09, 2019 12:00am February 25, 2024 11:22am Start: 03-31-2019 End: 02-25-2024 take 650 mg by mouth every four hours Acetaminophen Discontinued 650 MG PO Q4H 0 April 09, 2019 12:00am February 25, 2024 11:22am Start: 06-29-2018 End: 04-09-2019 take 1 tablet [...] / oxyCODONE hydrochloride 5 mg oral tablet (20 sources) Opioid Agonist Start: 05-16-2023 take 1 [...] Alpha Lipoic Acid 600 mg oral capsule (6 sources) Start: 09-09-20 take 1 capsule by mouth once daily [...] DS 2 - as directed Orally Active atorvastatin 80 mg oral tablet (20 sources) HMG-CoA Reductase Inhibitor Start: 05-16-20 take 1 tablet by mouth once daily atorvastatin 80 mg Tab 80 mg = 1 tab(s), Oral, Daily, Refills(s) 0 Start Date: 05/16/23 Status: Ordered Start: 06-30-2018 End: 04-09-2019 take 1 tablet by mouth once daily atorvastatin 80 mg Tab 80 mg = 1 tab(s), Oral, Daily, Refills(s) 0 Start Date: 05/16/23 Status: Ordered biotin 10 mg disintegrating oral tablet (20 sources) Start: 02-25-2024 take 70047 ug by mouth twice daily Biotin Active 77664 MCG PO Twice daily February 25, 2024 12:00am Start: 09-09-2023 take 1 tablet by fermín th twice daily biotin 10 mg oral tablet 10 mg = 1 tab(s), Oral, BID, # 30 tab(s), Refills(s) 0 Start Date: 09/09/23 Status: Ordered Start: 06-27-2018 End: 04-09-2019 take 55084 ug by mouth twice daily Biotin Discontinued 51107 MCG PO Twice daily June 27, 2018 12:00am April 09, 2019 9:42am Start: 02-18-2018 End: 03-13-2018 take 1000 ug by mouth twice daily Biotin Discontinued 1000 MCG PO Twice daily February 18, 2018 12:00am March 13, 2018 10:19am biotin 1,000 mcg tablet,chewable Chew 1 tablet once daily. 0 Active take 1 tablet by fermní th twice daily Biotin 42103 MCG 1 tablet Orally twice a day Active take 1 tablet by fermín every twelve hours Biotin 1000 MCG 1 tablet Orally twice a day Active calcium carbonate 500 mg chewable tablet (20 sources) Start: 02-25-2024 take 1500 mg by mouth once daily at bedtime Calcium Carbonate Active 1500 MG PO Daily at bedtime February 25, 2024 11:24am Start: 09-09-2023 Tums Chewy Bit es 750 mg oral tablet, chewable 1,500 mg = 2 tab(s), Chewed, Bedtime, Refills(s) 0 Start Date: 09/09/23 Status: Ordered Start: 04-09-2019 End: 02-25-2024 take 1000 mg by mouth twice daily Calcium Carbonate Discontinued 1000 MG PO Twice daily 60 April 09, 2019 12:00am February 25, 2024 11:45am Start: 03-13-2018 End: 06-27-2018 take 1000 mg [...] 0 Refills: 0 Ordered: 04-Apr-2023 DO Active CertaVite with Antioxidants (3 sources) Start: 02-24-2024 take 1 tablet by mouth twice daily CertaVite with Antioxidants 1 tab(s), Oral, BID, Refill(s) 0 Start Date: 02/24/24 Status: Ordered cetirizine hydrochloride 10 mg oral tablet (20 sources) Histamine-1 Receptor Antagonist Start: 02-25-2024 take 10 mg by mouth once daily Cetirizine Active 10 MG PO Daily February 25, 2024 12:00am Start: 05-16-2023 take 1 tablet by fermín th once daily cetirizine 5 mg oral tablet [...] daily. 0 Active cholecalciferol 0.025 mg oral capsule (20 sources) Vitamin D Start: 02-25-2024 take 25 ug by mouth once daily Cholecalciferol (Vitamin D3) Active 25 MCG PO Daily February 25, 2024 12:00am Start: 04-09-2019 End: 02-25-2024 take 1 tablet by mouth three times daily Cholecalciferol (Vitamin D3) (Vitamin D3) 1,000 unit Tablet Discontinued 1000 UNIT PO Three times daily 90 April 09, 2019 12:00am February 25, 2024 11:42am Start: 03-16-2019 End: 04-09-2019 take 1 capsule [...] day Active ciprofloxacin 500 mg oral tablet (5 sources) Quinolone Antimicrobial Start: 02-05-2024 Cipro 500 mg Tab 500 mg = 1 tab(s), Oral, BID, Take twice daily x5 days starting the day prior to the procedure, # 10 tab(s), Refills(s) 0, Pharmacy: [facility], 160, cm, 02/04/24 11:44:00 EST, Height/Length Dosing, 138, kg, 02/04/24 11:44:00 EST, Weight Dosing Start Date: 02/05/24 Status: Ordered Start: 11-26-2023 Cipro 500 mg T ab See Instructions, Take 1 tab day prior to procedure and 1 tab day of procdure - afterwards, # 2 tab(s), Refills(s) 0, Pharmacy: [facility] [place], 160, cm, 11/21/23 10:42:00 EST, Height/Length Dosing, 138, kg, 11/21/23 10:42:00 EST, Weight Dosing Start Date: 11/26/23 Status: Ordered Start: 05-16-2023 End: 05-23-2023 take 1 tablet by mouth every twelve hours Cipro 500 mg Tab 500 mg = 1 tab(s), Oral, q12hr, X 7 day(s), # 14 tab(s), Refills(s) 0, Pharmacy: [facility] [place], 158, cm, 05/16/23 14:43:00 EDT, Height/Length [...] 09, 2019 12:00am April 19, 2020 2:56pm Cranberry (17 sources) Non-Standardized Food Allergenic Extract, Non-Standardized Plant Allergenic Extract Start: 02-25-2024 take 500 mg by mouth once daily Cranberry Active 500 MG PO Daily February 25, 2024 12:00am Start: 05-16-2023 take 1 tablet by fermín once daily Cranberry oral tablet See Instructions, Refill(s) 0, 450mg orally once a day Start Date: 05/16/23 Status: Ordered Start: 05-16-2023 Cranberry oral tablet Refill(s) 0 Start Date: 05/16/23 Status: Ordered Cranberry Concen trate 500 MG as directed Orally Active D-Mannose (1 source) Start: 02-25-2024 take 2000 mg by mout h once daily D-Mannose Active 2000 MG PO daily February 25, 2024 12:00am D-MANNOSE ORAL (1 source) D-MANNOSE ORAL T ildefonso by mouth. 0 Active docusate sodium 100 mg oral capsule (20 sources) Start: 05-16-2023 take 1 capsule by mo uth once daily as needed for constipation Colace 100 mg Cap 100 mg = 1 cap(s), Oral, Daily, PRN for constipation, # 20 cap(s), Refills(s) 0 Start Date: 05/16/23 Status: Ordered Start: 04-09-2019 End: 02-25-2024 take 100 mg by mouth twice daily Docusate Sodium Discontinued 100 MG PO Twice daily 60 April 09, 2019 12:00am February 25, 2024 11:42am Start: 03-16-2019 End: 04-09-2019 take 1 capsule [...] 10:41am donepezil hydrochloride 10 mg oral tablet (20 sources) Start: 02-26-2022 take 1 tablet by mouth twice daily donepezil 10 mg Tab 10 mg = 1 tab(s), Oral, BID, Refills(s) 0 Start Date: 05/16/23 Status: Ordered 0.5 ml dulaglutide 3 mg/ml auto-injector (18 sources) GLP-1 Receptor Agonist Start: 01-02-2023 inject 1.5 mg by subcutaneous injection every week Trulicity Pen 1.5 mg/0.5 mL subcutaneous solution 1.5 mg, SubCutaneous, qWeek, # 12 EA, Refills(s) 0, Pharmacy: [facility] [place], 158, cm, 09/09/23 16:01:00 EDT, Height/Length Dosing, 130.6, kg, 09/09/23 16:01:00 EDT, Weight Dosing Start Date: 09/09/23 Status: Ordered Dulaglutide (Trulicity) 3 mg/0.5 mL pen injector (1 source) Start: 02-25-2024 Dulaglutide (Trulicity) 3 mg/0.5 mL pen injector Active 3 MG SUBCUT every week February 25, 2024 12:00am famotidine 20 mg oral tablet (20 sources) Histamine-2 Receptor Antagonist Start: 06-27-2018 End: 02-25-2024 take 20 mg by mouth twice daily Famotidine Discontinued 20 MG PO Twice daily 60 April 09, 2019 12:00am February 25, 2024 11:35am Start: 06-03-2018 take 1 tablet by fermín [...] 2018 10:44am fluconazole 150 mg oral tablet (8 sources) Azole Antifungal Start: 04-01-2023 take 1 tablet by mouth once Diflucan 150 mg Tab 150 mg = 1 tab(s), Oral, Once, # 1 tab(s), Refills(s) 0, Pharmacy: [facility] Start Date: 04/01/23 Status: Ordered Freestyle Bang 2 sensors (6 sources) Start: 07-15-2023 Freestyle LIbr e 2 sensors Freestyle Bang 2 sensors, See Instructions, 1 EA, 4, One box of sensors, Supply Start Date: 07/15/23 Status: Ordered furosemide 40 mg oral tablet (20 sources) Loop Diuretic Start: 01-02-2023 take 1 [...] afternoon and bedtime. take 1 capsule by [facility] every eight hours Gabapentin 300 MG 1 capsule Orally Three times a day Active glimepiride 2 mg oral tablet (20 sources) Sulfonylurea Start: 05-16-2023 take 1 tablet by mouth once daily glimepiride 2 mg Tab 2 mg = 1 tab(s), Oral, Daily, Refills(s) 0 Start Date: 05/16/23 Status: Ordered Start: 03-16-2019 End: 04-09-2019 take 1 tablet by mouth once daily glimepiride 2 mg Tab 2 mg = 1 tab(s), Oral, Daily, Refills(s) 0 Start Date: 05/16/23 Status: Ordered Nlbqgzrd-Uqegn-Bioqh-Cf Borate (Secret Escapes) 750 mg-100 mg- 1.65 mg-108 mg tablet (1 source) Start: 02-25-2024 take 1 tablet by mouth once daily Fdyatrbe-Jtbdn-Hhyvd-Cf Borate (Secret Escapes) 750 mg-100 mg- 1.65 mg-108 mg tablet Active 2 TAB PO daily February 25, 2024 12:00am glucosamine hydrochloride 1500 mg oral tablet (6 sources) Start: 09-09-2023 take 2 tablets by mouth once daily at bedtime glucosamine hydrochloride 1500 mg oral tablet See Instructions, Refill(s) 0, 2 tab(s) Oral Daily at bedtime Start Date: 09/09/23 Status: Ordered handicap placard (3 sources) Start: 01-02-2024 handicap placard handicap placard, See Instructions, 1 EA, 0, Duration 5 years, Supply Start Date: 01/02/24 Status: Ordered hydrocortisone 25 mg/ml topical cream (11 sources) Corticosteroid Start: 11-20-2023 hydrocortisone Top 2.5% Crm See Instructions, Refill(s) 0, apply rectally twice daily as needed for hemorrhoids Start Date: 11/20/23 Status: Ordered Start: 09-09-2023 hydrocortisone 2.5% Rectal Crm w/Appl 1 teresa, Rectal, BID, 30 gram, Refill(s) 0, us as needed Start Date: 09/09/23 Status: Ordered hydrocortisone acetate 10 mg/ml / pramoxine hydrochloride 10 mg/ml rectal foam (4 sources) Corticosteroid Start: 12-16-2023 Proctofoam HC rectal foam 1 teresa, Rectal, TID, 10 gram, Refill(s) 0, [facility], cm, 12/16/23 10:57:00 EST, Height/Length Dosing, 130, kg, 12/16/23 10:53:00 EST, Weight Dosing Start Date: 12/16/23 Status: Ordered Insulin Aspart FlexPen 100 units/mL injectable solution [...] insulin aspart, human 100 unt/ml pen injector (17 sources) Insulin Analog Start: 05-16-2023 Insulin Aspart [...] ml insulin detemir 100 unt/ml pen injector (15 sources) Insulin Analog Start: 04-19-2020 inject 10 [...] 13, 2018 12:00am June 27, 2018 10:42am sensor 3 ml insulin glargine 100 unt/ml pen injector (20 sources) Insulin Analog Start: 02-25-2024 Insulin Glargi ne (Basaglar Tempo Pen(U-100)Insln) 100 unit/mL (3 mL) insulin pen, sensor Active 30 UNIT SUBCUT Every evening February 25, 2024 12:00am Start: 05-16-2023 Basaglar KwikP en 100 units/mL [...] 12 units Subcutaneous twice a day Active Lactobacillus Combination No.9 (Adult 50 Plus Probiotic) 4 billion cell capsule (1 source) Start: 02-25-2024 take 4 capsules by mouth once daily Lactobacillus Combination No.9 (Adult 50 Plus Probiotic) 4 billion cell capsule Active 4000 MMU CELLS PO Daily February 25, 2024 12:00am administer with a meal lisinopril 2.5 mg oral tablet (15 sources) Angiotensin Converting Enzyme Inhibitor Start: 03-16-2019 End: 04-09-2019 take 2.5 mg by mouth once daily Lisinopril Active 2.5 MG PO Daily April 09, 2019 12:00am Start: 02-18-2018 End: 06-30-2018 take 5 mg by mouth once daily Lisinopril Discontinued 5 MG PO Daily June 27, 2018 10:44am June 30, 2018 9:49am loperamide hydrochloride 2 mg oral tablet (6 sources) Opioid Agonist Start: 09-09-2023 take 1 tablet by mouth once as needed Immodium A-D 2 mg Tab See Instructions, 1 tablet orally as neededafter each loose stool max 16 a day, Refills(s) 0 Start Date: 09/09/23 Status: Ordered memantine hydrochloride 10 mg oral tablet (20 sources) W-qxzvdu-B-asparta te Receptor Antagonist Start: 01-29-2022 take 1 tablet by mouth twice daily memantine 10 mg Tab 10 mg = 1 tab(s), Oral, BID, Refills(s) 0 Start Date: 05/16/23 Status: Ordered Milk of Magnesia (6 sources) Start: 09-09-2023 take 2400 mg by [...] 2 tablets Orally once a day Active Ajlhkhqe-Kvy-Iw-Ly copen-Lutein (Certavite Senior) 0.4 mg-300 mcg- 250 mcg tablet (1 source) Start: 02-25-2024 take 1 tablet by mouth once daily Wqdjeylp-Riq-Rw-Ly copen-Lutein (Certavite Senior) 0.4 mg-300 mcg- 250 mcg tablet Active 1 TAB PO Daily February 25, 2024 12:00am nitrofurantoin, macrocrystals 25 mg / nitrofurantoin, monohydrate 75 mg oral capsule (1 source) Nitrofuran Antibacterial Start: 12-16-2023 End: 12-26-2023 take 1 capsule by mouth twice daily nitrofurantoin macrocrystals-mono hydrate 100 mg Cap 100 mg = 1 cap(s), Oral, BID, X 10 day(s), # 20 cap(s), Refills(s) 0, Pharmacy: [facility] [place], 160, cm, 12/16/23 10:57:00 EST, Height/Length Dosing, 130, kg, 12/16/23 10:53:00 EST, Weight Dosing Start Date: 12/16/23 Stop Date: 12/26/23 Status: Ordered nitroglycerin 0.4 mg sublingual tablet (13 sources) Nitrate Vasodilator Start: 04-19-2020 End: 02-25-2024 nitroglycerin 0.4 mg sublingual Tab 0.4 mg = 1 tab(s), SubLingual, q5min, PRN for chest pain, # 100 tab(s), Refills(s) 0 Start Date: 05/16/23 Status: Ordered Normal saline (1 source) Saline Nasal Spr ay 0.65 % as directed Nasally Active ondansetron 4 mg oral tablet (8 sources) Serotonin-3 Receptor Antagonist Start: 05-16-2023 take 1 tablet by mouth every six hours ondansetron 4 mg Tab 4 mg = 1 tab(s), Oral, q6hr, Refills(s) 0 Start Date: 05/16/23 Status: Ordered take 2 tablets by [facility] every eight hours as needed ondansetron (Zofran) [...] once daily. 0 03/09/2022 01/09/2024 Discontinued (Other) Physical therapy treat and evaluate, properly sized walker, (6 sources) Start: 08-20-2023 Physical thera py treat and evaluate, properly sized walker, Physical therapy treat and evaluate, properly sized walker,, See Instructions, 1 EA, 0, see above, Supply Start Date: 08/20/23 Status: Ordered polyethylene glycol 3350 57160 mg powder for oral solution (7 sources) Osmotic Laxative Start: 02-25-2024 Polyethylene Glycol 3350 (Miralax) 17 gram/dose powder Active 17 GM PO Every 48 hours February 25, 2024 12:00am Start: 09-09-2023 take 17 g by mouth [...] a day. 0 Active PreserVision AREDS 2 (6 sources) Start: 09-09-2023 PreserVision AREDS 2 1 tab(s), Chewed, Daily, Refill(s) 0 Start Date: 09/09/23 Status: Ordered saccharomyces boulardii 250 mg oral capsule (3 sources) Start: 02-24-2024 take 1 capsule by mouth once daily as needed Florastor 250 mg oral capsule 250 mg = 1 cap(s), Oral, Daily, PRN for loose stool, # 10 cap(s), Refills(s) 0 Start Date: 02/24/24 Status: Ordered Sodium Chloride (6 sources) Start: 09-09-2023 Saline Mist 0.65% nasal spray See Instructions, Refill(s) 0, 1 spray each nostril every shift, may self administer Start Date: 09/09/23 Status: Ordered Thera M Plus - (9 sources) Thera M Plus - a s directed Orally Active thioctic acid 200 mg oral capsule (10 sources) Start: 02-25-2024 take 600 mg by mouth once daily Alpha Lipoic Acid Active 600 MG PO Daily February 25, 2024 12:00am Start: 06-27-2018 End: 04-09-2019 take 600 mg by mouth twice daily Alpha Lipoic Acid Discontinued 600 MG PO Twice daily June 27, 2018 12:00am April 09, 2019 9:42am Start: 02-18-2018 End: 03-06-2018 take 600 mg by mouth twice daily Alpha Lipoic Acid Discontinued 600 MG PO Twice daily February 18, 2018 12:00am March 06, 2018 12:28pm take 1 capsule by mo [facility] once daily alpha lipoic acid 600 mg capsule Take 1 capsule by mouth once daily. 0 Active tobramycin 3 mg/ml ophthalmic solution (3 sources) Aminoglycoside Antibacterial Start: 02-04-2024 Tobrex Oph Sherry 0.3% Soln-Opth drop(s), QID Start Date: 02/04/24 Status: Ordered Tylenol Extra Strength 500 MG (9 sources) Start: 06-03-2018 take 2 tablets by mouth once daily in the morning as needed Tylenol Extra Strength 500 MG 2 tablet as needed Orally once a day in the am Jun, Active 24 hr venlafaxine 150 mg extended release oral capsule (14 sources) Serotonin and Norepinephrine Reuptake Inhibitor Start: 01-02-2023 take 1 capsule by mouth once daily venlafaxine 150 mg Cap-ER 150 mg = 1 cap(s), Oral, Daily, Refills(s) 0 Start Date: 05/16/23 Status: Ordered vit C/E/Zn/coppr/lute in/zeaxan (PRESERVISION AREDS-2 ORAL) (1 source) vit C/E/Zn/coppr/lutein /zeaxan (PRESERVISION AREDS-2 ORAL) Take by mouth. 0 Active Vitamin B 12 500 MCG (9 sources) take 2 tablets by mouth once daily Vitamin B 12 500 MCG 2 tablet Orally Once a day Active vitamin B12 (19 sources) Vitamin B12 Start: 02-25-2024 take 1000 ug by mouth once daily Cyanocobalamin (Vitamin B-12) Active 1000 MCG PO Daily February 25, 2024 12:00am Start: 03-16-2019 End: 04-09-2019 take 1 tablet [...] mcg) by mouth once daily. 0 Active Vitamin B12 1000 mcg Tab (6 sources) Start: 09-09-2023 take 1 tablet by mouth once daily Vitamin B12 1000 mcg Tab 1,000 mcg = 1 tab(s), Oral, Daily, Refills(s) 0 Start Date: 09/09/23 Status: Ordered Vitamin D-3 1000 UNIT (5 sources) take 1 capsule by mouth once daily Vitamin D-3 1000 UNIT 1 capsule Orally Once a day Active Vitamin D3 1000 intl units (25 mcg) Tab (6 sources) Start: 09-09-2023 take 1 tablet by mouth once daily Vitamin D3 1000 intl units (25 mcg) Tab 25 mcg = 1 tab(s), Oral, Daily, Refills(s) 0 Start Date: 09/09/23 Status: Ordered Vitamins A,C,K-Erya-Cyjqgr (Preservision Areds) 4,296 mcg-226 mg-90 mg capsule (1 source) Start: 02-25-2024 take 1 capsule by mouth twice daily Vitamins A,C,K-Vspu-Yrimkf (Preservision Areds) 4,296 mcg-226 mg-90 mg capsule Active 1 CAP PO Twice daily February 25, 2024 12:00am zinc oxide 0.2 mg/mg topical ointment (6 sources) Start: 09-09-2023 zinc oxide Top 20% Oint See Instructions, Refill(s) 0, apply topically to red areas on buttocks twice daily as needed Start Date: 09/09/23 Status: Ordered Completed/Discontinued Medications Medication Drug Class(es) Dates Sig (Normalized) Sig (Original) aspirin 81 mg chewable tablet (20 sources) Platelet Aggregation Inhibitor, Nonsteroidal Anti-inflammatory Drug Start: 06-30-2018 End: 02-25-2024 take 81 mg by mouth once daily Aspirin Discontinued 81 MG PO Daily April 09, 2019 12:00am February 25, 2024 11:41am Start: 06-27-2018 End: 06-30-2018 take 325 mg [...] 1 tablet Orally Once a day Not-Taking 24 hr buPROPion hydrochloride 300 mg extended release oral tablet (18 sources) Aminoketone Start: 02-18-2018 End: 02-25-2024 take 300 mg by mouth once daily Bupropion Hcl Discontinued 300 MG PO Daily June 27, 2018 10:44am April 09, 2019 9:42am diclofenac sodium 0.01 mg/mg topical gel (20 sources) Nonsteroidal Anti-inflammatory Drug Start: 04-09-2019 End: 02-25-2024 apply 1 g topically twice daily Diclofenac Sodium Discontinued 1 GM TOPICAL Twice daily April 09, 2019 12:00am February 25, 2024 11:42am Start: 03-16-2019 End: 03-16-2019 Diclofenac Sodium Discontinu [...] 18, 2018 12:00am March 13, 2018 10:19am Freestyle Bang 2 system (6 sources) Start: 07-15-2023 Freestyle Libr e 2 system Freestyle Bang 2 system, See Instructions, 1 EA, 0, pt to check BS 4 times per day, Supply Start Date: 07/15/23 Status: Ordered Ilzvqmmy-Qmkhc-Rgcdz-C f Borate (Secret Escapes) 750 mg-100 mg- 1.65 mg-108 mg Tablet (6 sources) Start: 06-27-2018 End: 04-09-2019 take 1 tablet by mouth once daily Hdmywarp-Qqbzz-Dmssx-Cf Borate (Secret Escapes) 750 mg-100 mg- 1.65 mg-108 mg Tablet Discontinued 2 TAB PO Daily June 27, 2018 12:00am April 09, 2019 9:42am Start: 02-18-2018 End: 03-06-2018 take 1 tablet by mouth once daily Rwhbtowj-Dvawx-Ruckk-Cf Borate ([employer]) 750 mg-100 mg- 1.65 mg-108 mg Tablet Discontinued 2 TAB PO Daily February 18, 2018 12:00am March 06, 2018 12:28pm glyBURIDE 5 mg oral tablet (9 sources) Sulfonylurea Start: 02-18-2018 End: 03-16-2019 take 5 mg by mouth once daily Glyburide Discontinued 5 MG PO Daily June 27, 2018 10:44am March 16, 2019 2:26pm Home health physical therapy evaluatoin and treatment (6 sources) Start: 08-23-2023 Home health ph ysical therapy evaluatoin and treatment Home health physical therapy evaluatoin and treatment, See Instructions, 1 EA, 0, HH PT evaluation and treatment, Supply Start Date: 08/23/23 Status: Ordered hydrOXYzine pamoate 25 mg oral capsule (18 sources) Antihistamine Start: 03-31-2019 End: 02-25-2024 take 25 mg by mouth every three hours Hydroxyzine Pamoate Discontinued 25 MG PO Q3H April 09, 2019 12:00am February 25, 2024 11:42am Start: 03-31-2019 End: 04-09-2019 take 50 mg [...] 06, 2018 12:00am March 13, 2018 10:20am HYLAN G-F 20 (20 sources) Start: 06-20-2017 Synvisc Jun 6 mL Start: 06-13-2017 Synvisc Jun 6 mL Start: 06-06-2017 Synvisc Jun 6 mL lidocaine 0.05 mg/mg medicated patch (1 source) Antiarrhythmic, Amide Local Anesthetic Start: 02-17-2022 Lidocaine 5 % External Patch APPLY DIRECTED. Quantity: 0 Refills: 0 Ordered: 17-Feb-2022 DO Start : 17-Feb-2022 Active linagliptin 5 mg oral tablet (3 sources) Dipeptidyl Peptidase 4 Inhibitor Start: 03-13-2018 End: 06-27-2018 take 1 tablet by mouth once daily Linagliptin (Tradjenta) 5 mg Tablet Discontinued 5 MG PO Daily March 13, 2018 12:00am June 27, 2018 10:43am loratadine 10 mg oral tablet (6 sources) Start: 04-09-2019 End: 02-25-2024 take 10 mg by mouth once daily Loratadine Discontinued 10 MG PO Daily April 09, 2019 12:00am February 25, 2024 11:43am Start: 03-13-2018 End: 06-27-2018 take 10 mg [...] Vazquez MD Start : 11-Mar-2022 Active Magnesium (3 sources) Start: 03-16-2019 End: 03-16-2019 take 500 mg by mouth once daily Magnesium Discontinued 500 MG PO Daily March 16, 2019 12:00am March 16, 2019 2:44pm magnesium oxide 500 mg oral tablet (3 sources) Start: 02-18-2018 End: 03-13-2018 take 500 mg by mouth once daily Magnesium Oxide Discontinued 500 MG PO Daily February 18, 2018 12:00am March 13, 2018 10:20am metoprolol tartrate 25 mg oral tablet (12 sources) beta-Adrenergic Jus Start: 03-01-2022 Metoprolol Tartrate 25 MG Oral Tablet TAKE ONE HALF A TABLET TWICE DAILY Quantity: 45 Refills: 3 Ordered: 12-Mar-2022 Cinthia Vazquez MD Start : 01-Mar-2022 Active Start: 06-30-2018 End: 02-25-2024 take 12.5 mg by mouth twice daily Metoprolol Tartrate Discontinued 12.5 MG PO Twice daily 60 April 09, 2019 12:00am February 25, 2024 11:43am take 0.5 tablet by m outh twice daily at mealtime Metoprolol Tartrate 25 MG 1/2 tablet with food Orally Twice a day Active Misc Medication (3 sources) Start: 02-24-2024 take 1 capsule by mouth once daily Misc Medication D-Mannose 500mg Take one capsule orally daily Start Date: 02/24/24 Status: Ordered Multi Vitamin Oral Tablet (1 source) take 1 tablet by mouth once daily Multi Vitamin Oral Tablet TAKE 1 TABLET DAILY. Quantity: 0 Refills: 0 Ordered: 12-Mar-2022 DO Active Multivitamin preparation (3 sources) Start: 03-16-2019 End: 04-09-2019 take 1 tablet by mouth once daily Multivitamin Discontinued 1 TAB PO Daily March 16, 2019 12:00am April 09, 2019 9:42am Multivitamin With Folic Acid (Thera) 400 mcg Tablet (6 sources) Start: 04-09-2019 End: 02-25-2024 take 1 tablet by mouth once daily Multivitamin With Folic Acid (Thera) 400 mcg Tablet Discontinued 1 TAB PO Daily April 09, 2019 12:00am February 25, 2024 11:43am Start: 04-09-2019 take 1 tablet by fermín th once daily Multivitamin With Folic Acid (Thera) 400 mcg Tablet Active 1 TAB PO Daily April 09, 2019 12:00am Start: 03-13-2018 End: 06-27-2018 take 1 tablet by mouth once daily Multivitamin With Folic Acid (Thera) 400 mcg Tablet Discontinued 1 TAB PO Daily March 13, 2018 12:00am June 27, 2018 10:44am Ed-Ved-Tyoyu-Calcium Carb-K1 (Women's 50 Plus Daily Formula) 400 mcg-500 mg calcium-20 mcg Tablet (6 sources) Start: 06-27-2018 End: 03-16-2019 take 1 tablet by mouth once daily Gi-Irg-Laxpd-Calcium Carb-K1 (Women's 50 Plus Daily Formula) 400 mcg-500 mg calcium-20 mcg Tablet Discontinued 1 TAB PO Daily June 27, 2018 12:00am March 16, 2019 2:32pm Start: 02-18-2018 End: 03-13-2018 take 1 tablet by mouth once daily Ay-Nid-Ikxri-Calcium Carb-K1 (Women's 50 Plus Daily Formula) 400 mcg-500 mg calcium-20 mcg Tablet Discontinued 1 TAB PO Daily February 18, 2018 12:00am March 13, 2018 10:20am Novolin L 100 UNIT/ML SUSP (1 source) Novolin L 100 UNIT/ML SUSP USE DIRECTED. Quantity: 0 Refills: 0 Ordered: 04-Apr-2023 DO Active nystatin 527482 unt/ml topical cream (5 sources) Polyene Antifungal Start: 11-20-20 apply 15 g topically once as needed nystatin Top 100,000 units/g Crm 15 gram See Instructions, Refill(s) 0, apply topically to affected area(s) per plan as needed Start Date: 11/20/23 Status: Ordered OT EVALUATION (6 sources) Start: 07-15-20 OT EVALUATION OT EVALUATION, See Instructions, 1 EA, 0, evaluate and treat better fitting wheel chair, Supply Start Date: 07/15/23 Status: Ordered oxyCODONE hydrochloride 5 mg oral tablet (9 sources) Opioid Agonist Start: 03-31-20 End: 02-25-20 take 5 mg by mouth every four hours Oxycodone Discontinued 5 MG PO Every 4 hours 40 7 April 09, 2019 February 25, 2024 11:43am Start: 03-31-2019 End: 04-09-2019 take 10 mg by mouth every four hours Oxycodone Discontinued 10 MG PO Every 4 hours March 31, 2019 April 09, 2019 9:42am polyethylene glycol 400 4 mg/ml / propylene glycol 3 mg/ml ophthalmic solution (3 sources) Start: 06-27-2018 End: 04-09-2019 Peg 400-Propylene Glycol (Pf) (Systane (Pf)) 0.4-0.3 % Dropperette Discontinued 1 DROPS OPHTHALMIC As Directed June 27, 2018 12:00am April 09, 2019 9:42am potassium chloride 20 meq extended release oral tablet (20 sources) Start: 09-09-2023 take 1 tablet by [...] 18, 2018 12:00am March 13, 2018 10:20am sennosides, mcc 8.6 mg oral tablet (3 sources) Start: 04-09-2019 End: 02-25-2024 take 2 tablets by mouth once daily Sennosides (Senna Lax) 8.6 mg Tablet Discontinued 2 TAB PO DAILY@12 April 09, 2019 12:00am February 25, 2024 11:43am SITagliptin 50 mg oral tablet (6 sources) Dipeptidyl Peptidase 4 Inhibitor Start: 06-27-2018 [...] March 13, 2018 10:20am Sugar Free Tums (3 sources) Start: 06-27-2018 End: 04-09-2019 take 2 tablets by mouth twice daily Sugar Free Tums Discontinued 2 TAB PO Twice daily June 27, 2018 12:00am April 09, 2019 9:42am ticagrelor 90 mg oral tablet (6 sources) Start: 06-30-2018 End: 03-16-2019 take 1 tablet by mouth twice daily Ticagrelor (Brilinta) 90 mg Tablet Discontinued 90 MG PO Twice daily March 16, 2019 12:00am March 16, 2019 2:44pm triamcinolone acetonide 40 mg/ml injectable suspension (20 sources) Corticosteroid Start: 07-01-2023 Kenalog-40 Jun, 40 mg Start: 04-03-2017 Kenalog -40 mg April, 40 mg vitamin e 450 mg oral capsule (15 sources) Start: 02-18-2018 End: 02-25-2024 take 1000 [IU] by mouth once daily Vitamin E Discontinued 1000 UNIT PO Daily June 27, 2018 10:44am April 09, 2019 9:42am Problems Active Problems Problem Classification Problem Date Documented Date Episodic/Chronic Acute myocardial infarction (3 sources) Acute ST segment elevation myocardial infarction; Translations: [ST elevation (STEMI) myocardial infarction of unspecified site] 06-29-2018 Chronic Administrative/social admission (4 sources) Lives in a skilled nursing; Translations: [Person living in residential institution] 03-07-2018 Episodic Cancer of uterus (6 sources) Malignant neoplasm of uterus 09-04-2023 Chronic Chronic kidney disease (20 sources) Chronic kidney disease stage 3B ; Translations: [Chronic kidney disease, stage 3b] 03-07-2018 Chronic Coronary atherosclerosis and other heart disease (17 sources) Double coronary vessel disease; Translations: [Coronary atherosclerosis of unspecified type of vessel, chenega or graft] Onset: 08-29-2022 04-01-2019 Chronic Coronary atherosclerosis and other heart disease (6 sources) Patient post percutaneous transluminal coronary angioplasty; Translations: [Percutaneous transluminal coronary angioplasty status] Onset: 12-16-2023 4 Episodic Deficiency and other anemia (1 source) Other vitamin B12 deficiency anemias Episodic Deficiency and other anemia (4 sources) Anemia; Translations: [Anemia, unspecified] 03-07-2018 Episodic Deficiency and other anemia (1 source) Anemia, unspecified; Translations: [Anemia, unspecified] 02-25-2024 Episodic Diabetes mellitus with complications (20 sources) Type 2 diabetes mellitus with other diabetic arthropathy; Translations: [Type 2 diabetes mellitus with diabetic neuropathy, unspecified] Onset: 05-15-2022 Resolved: 05-15-2022 Chronic Diabetes mellitus without complication (20 sources) Diabetes mellitus; Translations: [Diabetes mellitus without mention of complication, type II or unspecified type, not stated as uncontrolled] Onset: 11-09-2022 Chronic Comment on above: [facility] Disorders of lipid metabolism (20 sources) Hyperlipidemia; Translations: [Other and unspecified hyperlipidemia] Onset: 05-15-2022 Resolved: 05-15-2022 Chronic Essential hypertension (20 sources) Essential hypertension; Translations: [Unspecified essential hypertension] Onset: 05-15-2022 Resolved: 05-15-2022 Chronic Comment on above: [facility] Fluid and electrolyte disorders (3 sources) Hypokalemia; Translations: [Hypokalemia] Episodic Genitourinary symptoms and ill-defined conditions (20 sources) Incontinence without sensory awareness; Translations: [Urinary incontinence] Onset: 07-04-2022 Chronic Genitourinary symptoms and ill-defined conditions (13 sources) Dysuria; Translations: [Dysuria] Onset: 12-17-2022 Episodic Headache; including migraine (6 sources) Migraine 09-04-2023 Chronic Hypertension with complications and secondary hypertension (3 sources) Hypertensive chronic kidney disease with stage 1 through stage 4 chronic kidney disease, or unspecified chronic kidney disease; Translations: [Hypertensive renal disease] Onset: 09-19-2022 02-24-2024 Chronic Joint disorders and dislocations; trauma-related (4 sources) Unspecified dislocation of right shoulder joint, initial encounter; Translations: [Unspecified dislocation of right shoulder joint, subsequent encounter] Onset: 11-20-2022 Episodic Miscellaneous mental health disorders (4 sources) Confusional state 12-16-2023 Chronic Mood disorders (6 sources) Major depression in full remission; Translations: [Single episode of major depression in full remission] 09-09-2023 Chronic Mood disorders (4 sources) Mood disorders; Translations: [DEPRESSION UNSPECIFIED] Onset: 11-09-2022 Nonspecific chest pain (6 sources) Chest pain; Translations: [Chest pain, unspecified] Onset: 08-27-2022 Episodic Nutritional deficiencies (6 sources) Vitamin D deficiency 09-04-2023 Chronic Occlusion or stenosis of precerebral arteries (1 source) Occlusion and stenosis of bilateral carotid arteries; Translations: [OCCLUSION AND STENOS DION CAROTID ART] Onset: 01-23-2023 Chronic Osteoarthritis (20 sources) Primary gonarthrosis, bilateral; Translations: [Bilateral primary osteoarthritis of knee] Chronic Other connective tissue disease (3 sources) History of total knee arthroplasty; Translations: [Presence of left artificial knee joint] 03-31-2019 Chronic Other connective tissue disease (4 sources) Recurrent falls 12-16-2023 Episodic Other diseases of bladder and urethra (1 source) Male urethral stricture; Translations: [Unspecified urethral stricture, male, unspecified site] Onset: 11-21-2023 Episodic Other diseases of bladder and urethra (5 sources) Urethral stricture 11-21-2023 Episodic Other diseases of kidney and ureters (3 sources) Renal impairment; Translations: [Disorder of kidney and ureter, unspecified] 03-07-2018 Episodic Other hereditary and degenerative nervous system conditions (1 source) Mild cognitive impairment, so stated; Translations: [MILD COGNTV IMPAIRMNT UNCRTN/UNKNWN] Onset: 12-22-2022 Chronic Other hereditary and degenerative nervous system conditions (6 sources) Essential tremor 09-04-2023 Chronic Other nervous system disorders (10 sources) Neuropathy; Translations: [Polyneuropathy, unspecified] 02-24-2024 Chronic Other nervous system disorders (5 sources) Polyneuropathy, unspecified; Translations: [Mononeuritis of unspecified site] Onset: 05-15-2022 Resolved: 05-15-2022 Chronic Other nervous system disorders (4 sources) Communicating hydrocephalus; Translations: [COMMUNICATING HYDROCEPHALUS] Onset: 01-18-2023 Chronic Other nervous system disorders (4 sources) Normal pressure hydrocephalus 12-16-2023 Chronic Other nervous system disorders (3 sources) Postoperative pain ; Translations: [Other acute postprocedural pain] 03-07-2018 Episodic Other nervous system disorders (6 sources) Abnormal gait 09-04-2023 Episodic Other nervous system disorders (6 sources) History of Guillain [place] syndrome 09-09-2023 Episodic Other non-traumatic joint disorders (1 source) Other specified joint disorders, left shoulder Episodic Other non-traumatic joint disorders (1 source) Pain in right shoulder Episodic Other non-traumatic joint disorders (1 source) Pain in left shoulder Episodic Other nutritional; endocrine; and metabolic disorders (20 sources) Morbid obesity; Translations: [Morbid obesity] Onset: 12-16-2023 03-07-2018 Chronic Other nutritional; endocrine; and metabolic disorders (19 sources) Body mass index 40+ - severely obese; Translations: [Morbid obesity] Onset: 02-25-2024 05-16-2023 Chronic Other nutritional; endocrine; and metabolic disorders (5 sources) Morbid (severe) obesity due to excess calories; Translations: [Morbid obesity] Onset: 01-21-2023 Chronic Other nutritional; endocrine; and metabolic disorders (4 sources) Obesity 05-16-2023 Chronic Other screening for suspected conditions (not mental disorders or infectious disease) (7 sources) Encounter for screening mammogram for malignant neoplasm of breast; Translations: [Protein level - finding] Onset: 10-11-2022 Episodic Peripheral and visceral atherosclerosis (6 sources) Arteriosclerotic vascular disease 09-04-2023 Chronic Residual codes; unclassified (8 sources) Localized edema; Translations: [Edema] Onset: 05-15-2022 Resolved: 05-15-2022 Episodic Residual codes; unclassified (3 sources) Patient encounter status; Translations: [Encounter for prophylactic measures, unspecified] 03-07-2018 Episodic Residual codes; unclassified (1 source) Localized edema; Translations: [Localized edema] 02-24-2024 Episodic Spondylosis; intervertebral disc disorders; other back problems (3 sources) Chronic back pain ; Translations: [Dorsalgia, unspecified] 03-07-2018 Episodic Unclassified (1 source) Pain in left shoulder; Translations: [Pain in left shoulder] Onset: 07-01-2023 Unclassified (6 sources) Long-term current use of insulin 09-06-2023 [...] Onset: 11-20-2022 Episodic Other aftercare (1 source) supervisor intermediates (current) use of aspirin; Translations: [USP CURRENT USE OF ASPIRIN] Onset: 01-28-2023 Episodic Other aftercare (1 source) Other parts counterman (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 therapy; Translations: [OTH USP CURRENT DRUG THERAPY] Onset: 01-28-2023 Episodic Other aftercare (1 source) USP (current) use of insulin; Translations: [RETAIL ANALYST CURRENT USE OF INSULIN] Onset: 01-28-2023 Episodic Other aftercare (1 source) supervisor intermediates (current) use of antithrombotics/ant iplatelets; Translations: [RETAIL ANALYST ANTITHROMBOT/ANTIPL ATLETS] Onset: 08-29-2022 Episodic Other connective [...] Name Value Interpretation Reference Range Facil ity Retirement Recordson 03-23 Retirement Records [id number]#1.00TIFF Normal [facility] Retirement Records [id number]#1.00TIFF Normal [facility] Retirement Records [id number]#1.00TIFF Normal [facility] Lab Reportson 03-20-2024 Lab Reports [id number]#1.00TIFF Normal [facility] Lab Reports [id number]#1.00TIFF Normal [facility] ED Note-Physicianon 03-19-20 ED Note-Physician [id number]#1.00TIFF Normal [facility] RAD - CT Reporton 03-19-20[address] RAD - CT Report [id number]#1.00TIFF Normal [facility] RAD - MISCon 03-19-2024 RAD - MISC [id number]#1.00TIFF Normal [facility] RAD - MISC [id number]#1.00TIFF Normal [facility] Lab Reportson 03-18-2024 Lab Reports [id number]#1.00TIFF Normal [facility] Lab Reports [id number]#1.00TIFF Normal [facility] Retirement Recordson 03-18 Retirement Records [id number]#1.00TIFF Normal [facility] Retirement Records [id number]#1.00TIFF Normal [facility] Retirement Recordson 03-16 Retirement Records [id number]#1.00TIFF Normal [facility] Retail - Clinical Noteon Retail - Clinical Note [id number]#1.00TIFF Normal [facility] C-Peptideon 02-26-2024 C peptide [Mass/Vol] 2.3 ng/mL Invalid Interpretation Code 1.1-4.4 [facility] Comment on above: Result Comment: C-Pe ptide reference interval is for fasting patients. Performed at: [facility] [id number] PhD Lisa Avery Performed By: #### 2 [id number] #### [facility] [address] [place] [address] Consultation Noteon 02-26-20 24 Consultation Note [id number]#1.00TIFF Normal [facility] Consultation Note [id number]#1.00TIFF [facility] PTH [place] 02-26-2024 Parathyrin.intact [Mass/Vol] 33 pg/mL Invalid Interpretation Code [facility] Comment on above: Result Comment: Perf ormed at: [facility] [employer] [id number] PhD Lisa Avery Performed By: #### 1 [id number] #### [facility] [address] [place] [address] CBC w/ Auto Diffon 4 Basophils/100 WBC (Bld) 0.5 % Normal 0.0-2.0 [facility] Comment on above: Performed By: #### 2 211569, 9535671, 5283705, 4086149, 16054737, 6042356, 1777123, 4906118, 2245495, 749174673, 13044490, 004497724, 0142561, 5211518 ####[facility] [address] [place] [address] Basophils/Leukocyt es Auto (Bld) [Pure # fraction] 0.0 E9/L Normal 0.0-0.2 [facility] Comment on above: Performed By: #### 2 533761, 3564887, 1949863, 1660639, 79389101, 6299909, 2917903, 5704916, 4828904, 245607349, 66809806, 267737105, 1014352, 8910200 ####[address] [place] [address] Eosinophils (Bld) [#/Vol] 0.4 E9/L Normal 0.0-0.5 [facility] Comment on above: Performed By: #### 2 241428, 6167329, 5696102, 3446373, 59747571, 1559580, 4416371, 9625970, 3585426, 933738704, 68073969, 635772264, 9284558, 3687503 ####[address] [place] [address] Eosinophils/100 WBC (Bld) 6.1 % Normal 0.0-8.0 [facility] Comment on above: Performed By: #### 2 536150, 5372606, 3010291, 4590462, 79543705, 7647166, 4218435, 0884960, 6040555, 045240103, 32252981, 984489685, 0264599, 7889547 ####[address] [place] [address] Erythrocyte distribution width (RBC) [Ratio] 13.9 % Normal 10.9-14.2 [facility] Comment on above: Performed By: #### 2 150760, 1168394, 4211173, 6447678, 63794603, 1253557, 8997788, 7215580, 2963974, 853496366, 86230619, 761570728, 0771170, 1726854 ####[facility] [address] [place] [address] Hematocrit (Bld) [Volume fraction] 38.0 % Normal 34.0-46.0 [facility] Comment on above: Performed By: #### 2 544614, 1194092, 7504430, 7296312, 16052125, 1223605, 0493683, 0196427, 4450783, 866528900, 01007741, 188396197, 9832795, 2023073 ####[facility] [address] [place] [address] Hemoglobin (Bld) [Mass/Vol] 12.4 g/dL Normal 12.0-16.0 [facility] Comment on above: Performed By: #### 2 929343, 3956285, 5014664, 3995842, 92737934, 3276533, 4867406, 5900271, 3348140, 660114068, 75312060, 497789372, 1584573, 3585627 ####[facility] [address] [place] [address] Lymphocytes (Bld) [#/Vol] 1.8 E9/L Normal 1.0-4.0 [facility] Comment on above: Performed By: #### 2 409959, 2950335, 0986374, 5361689, 43875244, 7109506, 4949686, 8183100, 6956279, 093064414, 77496127, 568695190, 0567946, 0795688 ####[facility] [address] [place] [address] Lymphocytes/100 WBC (Bld) 29.8 % Normal 14.0-50.0 [facility] Comment on above: Performed By: #### 2 843373, 1880994, 3970042, 7592428, 97594035, 3592721, 4251466, 9436446, 4020287, 108186266, 33624588, 073600485, 2390146, 3177664 ####[facility] [address] [place] [address] MCH (RBC) [Entitic mass] 29.4 pg Normal 27.0-34.0 [facility] Comment on above: Performed By: #### 2 691054, 5746696, 5857247, 2485462, 80508679, 6518636, 6646236, 4438762, 8496019, 384511308, 78257828, 688029147, 6853455, 7673472 ####[facility] [address] [place] [address] MCHC (RBC) [Mass/Vol] 32.6 g/dL Normal 31.4-36.0 [facility] Comment on above: Performed By: #### 2 433706, 0402669, 8824480, 8443210, 24389359, 0571866, 8528510, 1222455, 6622601, 424054791, 01879374, 639769544, 6939778, 7077419 ####[facility] [address] [place] [address] MCV (RBC) [Entitic vol] 90.1 fL Normal 80.0-100.0 [facility] Comment on above: Performed By: #### 2 996530, 5267216, 4121900, 6104958, 72753941, 6450010, 1043432, 9198049, 7531571, 788937651, 90184627, 237768023, 5260873, 5527308 ####[facility] [address] [place] [address] Monocytes (Bld) [#/Vol] 0.6 E9/L Normal 0.2-1.0 [facility] Comment on above: Performed By: #### 2 494706, 5224952, 7041543, 3567375, 52890128, 6554792, 0299392, 7433753, 3519365, 569083152, 49165936, 543308919, 6861764, 2991010 ####[facility] [address] [place] [address] Neutrophils (Bld) [#/Vol] 3.3 E9/L Normal 2.0-7.5 [facility] Comment on above: Performed By: #### 2 078299, 8811000, 0100668, 0271020, 01246156, 8732981, 2149730, 6025166, 5961061, 115463349, 57766476, 678697379, 1520170, 9051997 ####[facility] [address] [place] [address] Neutrophils/100 WBC (Bld) 53.9 % Normal 36.0-75.0 [facility] Comment on above: Performed By: #### 2 780704, 6193483, 8359618, 6547386, 23411039, 5977055, 6770776, 1106453, 7292592, 146205256, 06137681, 616714542, 2583420, 9924475 ####[address] [place] [address] Platelet 266.0 E9/L Normal 150.0-500.0 [facility] Comment on above: Performed By: #### 2 665756, 5720311, 5400339, 0332518, 67059638, 5056277, 3072147, 5561643, 8026514, 078606055, 41362025, 938502196, 2127464, 8122140 ####[facility] [address] [place] [address] Platelet mean volume (Bld) [Entitic vol] 8.5 fL Normal 6.4-10.8 [facility] Comment on above: Performed By: #### 2 760521, 4997126, 6926178, 3458397, 32192243, 5958073, 6546150, 1375631, 3459526, 830200599, 62478752, 035488518, 6463754, 4595639 ####[facility] [address] [place] [address] RBC (Bld) [#/Vol] 4.2 E12/L Low 4.3-5.9 [facility] Comment on above: Performed By: #### 2 733056, 3484795, 1883496, 4529229, 12312125, 6967723, 3545838, 9806564, 5612580, 341529495, [id number], [id number], 6841420, 6902937 ####[facility] [address] [place] [address] WBC corrected for nucl RBC Auto (Bld) [#/Vol] 6.1 E9/L Normal 4.0-11.0 [facility] Comment on above: Performed By: #### 2 803094, 1546609, 9746769, 4120226, 09254180, 4244343, 9545722, 0163030, 1545000, 303949058, 03559154, 302459909, 0015342, 7566378 ####[facility] [address] [place] [address] CHEMISTRYOrdered By: SYSTEM SYSTEM on 02-25-2024 Albumin DL <= 20 mg/L (U) [Mass/Vol] 19.6 mg/dL High 0.0 - 1.9 mg/dL Remisol Chem Albumin DL <= 20 mg/L (U) [Mass/Vol] 20.2 mg/dL High 0.0 - 1.9 mg/dL Remisol Chem Albumin/Creatinine DL <= 20 mg/L (U) [Mass ratio] 327.2 mg/gm Cr High 0.0 - 30.0 mg/gm Cr [facility] Chem Comment on above: Interpretive Data: 3 0-300 mg/g Cr indicates an increased risk for diabetic nephropathy. >300 mg/g Cr is consistent with clinical nephropathy. Protein/Creatinine (U) [Ratio] 54.70 mg/gm Cr Normal 0.00 - 200.00 mg/gm Cr Remisol Chem U Creatinine 59.9 mg/dL Invalid Interpretation Code Remisol Chem U Creatinine 60.2 mg/dL Invalid Interpretation Code Remisol Chem Ur Total Protein 32.9 mg/dL Invalid Interpretation Code Remisol Chem Phosphate [Mass/Vol] 4.0 mg/dL Normal 1.9 - 4.6 mg/dL Remisol Chem 25-hydroxyvitamin D3 [Mass/Vol] 44.1 ng/mL Normal 30.0 - 100.0 ng/mL Remisol Chem Albumin [Mass/Vol] 3.9 g/dL Normal 3.3 - 5.0 gm/dL R emisol Chem Albumin/Globulin [Mass ratio] 1.1 {ratio} Normal 1.1 - 2.2 Remisol Chem ALP [Catalytic activity/Vol] 59 [iU]/d Normal 21 - 98 Int._Unit/L Remisol Chem ALT No additional P-5'-P [Catalytic activity/Vol] 20 [iU]/d Normal 6 - 46 Int._Unit/L Remisol Chem Anion gap [Moles/Vol] 12 mmol/L Normal 6 - 16 mEq/L Remisol Chem AST [Catalytic activity/Vol] 20 [iU]/d Normal 5 - 43 Int._Unit/L Remisol Chem Bilirubin [Mass/Vol] 0.7 mg/dL Normal 0.0 - 1.1 mg/dL Remisol Chem Calcium [Mass/Vol] 9.7 mg/dL Normal 8.9 - 11.1 mg/dL Remisol Chem Chloride [Moles/Vol] 105 mmol/L Normal 101 - 111 mmol/L Rem[facility] Chem Cholesterol [Mass/Vol] 112 mg/dL Low 120 - 200 mg/dL Rem[facility] Chem Cholesterol in HDL [Mass/Vol] 41 mg/dL Invalid Interpretation Code [facility] Comment on above: Result Comment: '>= 60 LOW RISK' '<= 40 HIGH RISK' Cholesterol in LDL [Mass/Vol] 53 mg/dL Normal <=129mg/dL Remisol Chem Cholesterol in VLDL [Mass/Vol] 23 mg/dL Normal 7 - 40 mg/dL Remisol Chem CO2 [Moles/Vol] 31 mmol/L Normal 21 - 31 mmol/L Remis ol Chem Cobalamin (Vitamin B12) [Mass/Vol] pg/mL Normal 50 - 1500 pg/mL Remisol Chem Creatinine [Mass/Vol] 1.5 mg/dL High 0.5 - 1.3 mg/dL Remisol Chem eGFR 37 mL/min/1.73 m2 Low >=59mL/min/1.73 m2 Remisol Chem Ferritin [Mass/Vol] 69 ng/mL Normal 11 - 307 ng/mL Remisol Chem Folate [Mass/Vol] ng/mL Normal >=6.7ng/mL Remisol Chem Globulin (S) [Mass/Vol] 3.4 g/dL Normal 1.4 - 4.0 gm/dL Remisol Chem Glucose [Mass/Vol] 93 mg/dL Normal 55 - 199 mg/dL Re misol Chem Iron [Mass/Vol] 91 ug/dL Normal 35 - 153 mcg/dL Fidel sherry Chem Iron binding capacity [Mass/Vol] 305 ug/dL Normal 250 - 400 mcg/dL Remisol Chem Magnesium [Mass/Vol] 2.0 mg/dL Normal 1.3 - 2.4 mg/dL Remisol Chem Phosphate [Mass/Vol] 4.0 mg/dL Normal 1.9 - 4.6 mg/dL Remisol Chem Potassium [Moles/Vol] 3.6 mmol/L Normal 3.5 - 5.3 mmol/L Remisol Chem Protein [Mass/Vol] 7.3 g/dL Normal 6.0 - 7.8 gm/dL R emisol Chem Sodium [Moles/Vol] 144 mmol/L Normal 135 - 145 mmol/L Remisol Chem Transferrin [Mass/Vol] 218 mg/dL Normal 200 - 370 mg/dL Remisol Chem Triglyceride [Mass/Vol] 114 mg/dL Normal <=149mg/dL Remisol Chem Urate (U) [Mass/Vol] 4.4 mg/dL Normal 2.2 - 7.4 mg/dL Remisol Chem Urea nitrogen [Mass/Vol] 21 mg/dL Normal 5 - 21 mg/dL Remisol Chem Urea nitrogen/Creatinin e [Mass ratio] 14 mg/mg Normal 10 - 20 Remisol Chem CHEMISTRYOrdered By: Deana Patrick on 02-25-2024 HbA1c (Bld) [Mass fraction] 7.7 % High <=5.9% [facility] ChemAutoSS CMPon 02-25-2024 Albumin [Mass/Vol] 3.9 g/dL Normal 3.3-5.0 [facility] Comment on above: Performed By: #### 2 609425, 6033878, 5397548, 5533863, 79176498, 9466775, 9070150, 7939334, 4008857, 223659972, 85458094, 922276222, 3144492, 9876510 ####[facility] [address] [place] [address] Albumin/Globulin (S) [Mass conc ratio] 1.1 Normal 1.1-2.2 [facility] Comment on above: Performed By: #### 2 401686, 9076347, 3769284, 3774580, 18936265, 1518867, 3112700, 0087563, 5032194, 353951781, 08412830, 328180195, 8671064, 6950599 ####[address] [place] [address] ALP [Catalytic activity/Vol] 59 Int._Unit/L Normal 21-98 [facility] Comment on above: Performed By: #### 2 370753, 2922331, 6884192, 1385624, 28593562, 2208780, 0012545, 5131165, 4939411, 373708713, 39616791, 443125320, 7015353, 5440334 ####[facility] [address] [place] [address] ALT No additional P-5'-P [Catalytic activity/Vol] 20 Int._Unit/L Normal 6-46 [facility] Comment on above: Performed By: #### 2 005242, 3535775, 7573307, 9567262, 25832900, 9618256, 6233961, 6794744, 0020867, 660829819, 33205931, 986709509, 7062450, 7191035 ####[facility] [address] [place] [address] Anion gap [Moles/Vol] 12 mmol/L Normal 6-16 [facility] Comment on above: Performed By: #### 2 383248, 0387248, 1682326, 2795193, 35957914, 0292664, 2074445, 3520654, 4108606, 480800813, 76391058, 727371962, 0502469, 3272781 ####[facility] [address] [place] [address] AST [Catalytic activity/Vol] 20 Int._Unit/L Normal 5-43 [facility] Comment on above: Performed By: #### 2 234803, 6506389, 6567028, 9383145, 22799390, 9365376, 0501800, 3009583, 3891096, 301759732, 19515550, 808828432, 6866231, 4064462 ####[address] [place] [address] Bilirubin [Mass/Vol] 0.7 mg/dL Normal 0.0-1.1 [facility] Comment on above: Performed By: #### 2 330240, 6727372, 0812780, 0673404, 10126243, 2593638, 6929116, 6552288, 1394037, 419331760, 22402556, 496883116, 2221636, 2458884 ####[facility] [address] [place] [address] Calcium [Mass/Vol] 9.7 mg/dL Normal 8.9-11.1 [facility] Comment on above: Performed By: #### 2 020047, 9342372, 0399283, 8138546, 67814737, 7098734, 4110600, 6140373, 7790563, 276626376, 50467697, 166317384, 6294555, 7126309 ####[facility] [address] [place] [address] Chloride [Moles/Vol] 105 mmol/L Normal 101-111 [facility] Comment on above: Performed By: #### 2 918875, 2686039, 2964446, 6269424, 36117866, 4158331, 7468861, 5910132, 0626036, 468646827, 06689186, 878973399, 6310770, 9529041 ####[facility] [address] [place] [address] CO2 [Moles/Vol] 31 mmol/L Normal 21-31 [facility] Comment on above: Performed By: #### 2 066730, 9278806, 8468581, 6279151, 66434837, 7558241, 8175600, 4015797, 3532034, 242152244, 86059012, 809205518, 5992576, 1235860 ####[facility] [address] [place] [address] Creatinine [Mass/Vol] 1.5 mg/dL High 0.5-1.3 [facility] Comment on above: Performed By: #### 2 531774, 4817243, 9932842, 0863267, 18613817, 7657325, 2569696, 9073749, 1813377, 348194367, 77684825, 568066951, 9059348, 8274977 ####[facility] [address] [place] [address] Globulin (S) [Mass/Vol] 3.4 g/dL Normal 1.4-4.0 [facility] Comment on above: Performed By: #### 2 502176, 5241617, 6859183, 1335572, 57329613, 8850627, 5703904, 9112767, 9062310, 219320884, 94529196, 760015374, 8008086, 1561738 ####[facility] [address] [place] [address] Glucose [Mass/Vol] 93 mg/dL Normal 55-199 [facility] Comment on above: Performed By: #### 2 707762, 0945690, 9626088, 1993191, 51556993, 8150523, 0758383, 5986727, 6631938, 378820026, 96139806, 831830707, 5482486, 9121824 ####[facility] [address] [place] [address] Potassium [Moles/Vol] 3.6 mmol/L Normal 3.5-5.3 [facility] Comment on above: Performed By: #### 2 042376, 1830507, 3157088, 8586884, 71166819, 4319665, 7302755, 4450507, 2871853, 330928538, 35558616, 639442069, 8317976, 3605489 ####[facility] [address] [place] [address] Protein [Mass/Vol] 7.3 g/dL Normal 6.0-7.8 [facility] Comment on above: Performed By: #### 2 189673, 0774607, 7048379, 8058430, 97638830, 8010475, 2190040, 0336179, 8607372, 555482847, 11201859, 808072217, 0571443, 4309491 ####[facility] [address] [place] [address] Sodium [Moles/Vol] 144 mmol/L Normal 135-145 [facility] Comment on above: Performed By: #### 2 826097, 0274386, 2338622, 5547536, 49866775, 9325237, 7129484, 5142863, 6044147, 858322503, 02234954, 826251552, 3728412, 1678117 ####[facility] [address] [place] [address] Urea nitrogen [Mass/Vol] 21 mg/dL Normal 5-21 [facility] Comment on above: Performed By: #### 2 588210, 9864616, 7535216, 2224706, 42059675, 4329037, 7562230, 1610717, 3584960, 864425903, 32087745, 286558095, 9528115, 0675018 ####[facility] [address] [place] [address] Urea nitrogen/Creatinin e [Mass ratio] 14 No Units Normal 10-20 [facility] Comment on above: Performed By: #### 2 010621, 6765084, 0091349, 3093377, 09015462, 5873008, 5635176, 1722414, 8808814, 302294484, 02077268, 543435458, 1571438, 4830063 ####[facility] [address] [place] [address] Consent for Treatmenton 01-31 Consent for Treatment [id number]#1.00TIFF Normal [facility] Consent for Treatment [id number]#1.00TIFF Normal [facility] Ferritinon 02-25-2024 Ferritin [Mass/Vol] 69 ng/mL Normal 11-307 [facility] Comment on above: Performed By: #### 2 351663, 5421718, 9961491, 3567698, 62222194, 5570074, 8681954, 8775083, 7269884, 827987158, 89718985, 959660341, 5013753, 8266807 ####[facility] [address] [place] [address] Folateon 02-25-2024 Folate [Mass/Vol] ng/mL Normal >=6.7 [facility] Comment on above: Performed By: #### 2 120141, 8181556, 9995048, 7219465, 09159323, 1074934, 0105337, 2294956, 1835993, 629815995, 22733979, 470786356, 4829271, 7701584 ####[facility] [address] [place] [address] HEMATOLOGYOrdered By: SYSTEM SYSTEM on 02-25-2024 Basophils/100 WBC (Bld) 0.5 % Normal 0.0 - 2.0 % Rem[facility] Heme Basophils/Leukocyt es Auto (Bld) [Pure # fraction] 0.0 E9/L Normal 0.0 - 0.2 E9/L [facility] Eosinophils (Bld) [#/Vol] 0.4 E9/L Normal 0.0 - 0.5 E9/L [facility] Eosinophils/100 WBC (Bld) 6.1 % Normal 0.0 - 8.0 % [facility] Erythrocyte distribution width (RBC) [Ratio] 13.9 % Normal 10.9 - 14.2 % [facility] Hematocrit (Bld) [Volume fraction] 38.0 % Normal 34.0 - 46.0 % [facility] Hemoglobin (Bld) [Mass/Vol] 12.4 g/dL Normal 12.0 - 16.0 gm/dL [facility] Lymphocytes (Bld) [#/Vol] 1.8 E9/L Normal 1.0 - 4.0 E9/L [facility] Lymphocytes/100 WBC (Bld) 29.8 % Normal 14.0 - 50.0 % [facility] MCH (RBC) [Entitic mass] 29.4 pg Normal 27.0 - 34.0 pg [facility] MCHC (RBC) [Mass/Vol] 32.6 g/dL Normal 31.4 - 36.0 gm/dL [facility] MCV (RBC) [Entitic vol] 90.1 fL Normal 80.0 - 100.0 fL [facility] Monocytes (Bld) [#/Vol] 0.6 E9/L Normal 0.2 - 1.0 E9/L [facility] Monocytes/100 WBC (Bld) 9.7 % Normal 4.0 - 14.0 % [facility] Neutrophils (Bld) [#/Vol] 3.3 E9/L Normal 2.0 - 7.5 E9/L [facility] Neutrophils/100 WBC (Bld) 53.9 % Normal 36.0 - 75.0 % [facility] Platelet 266.0 E9/L Normal 150.0 - 500.0 E9/L Remiso l Heme Platelet mean volume (Bld) [Entitic vol] 8.5 fL Normal 6.4 - 10.8 fL Rem[facility] Heme RBC (Bld) [#/Vol] 4.2 E12/L Low 4.3 - 5.9 E12/L Re misol Heme WBC corrected for nucl RBC Auto (Bld) [#/Vol] 6.1 E9/L Normal 4.0 - 11.0 E9/L [facility]e BlzI2ohj 02-25-2024 HbA1c (Bld) [Mass fraction] 7.7 % High <=5.9 [facility] Comment on above: Performed By: #### 2 386013, 5876444, 2775093, 3213159, 14599388, 8984084, 1012098, 4881498, 7464921, 870543502, 41598974, 156739580, 3498327, 8821040 ####[facility] [address] [place] [address] Ironon 02-25-2024 Iron [Mass/Vol] 91 microgram/dL Normal 35-153 [facility] Comment on above: Performed By: #### 2 369205, 8738785, 7027264, 0200892, 56658254, 9469894, 6514117, 6721015, 2942460, 282599757, 37280991, 489970384, 4567155, 5150765 ####[facility] [address] [place] [address] Lipid Panelon 02-25-2024 Cholesterol [Mass/Vol] 112 mg/dL Low 120-200 [facility] Comment on above: Performed By: #### 2 004187, 4604029, 7272880, 7772345, 70881811, 7403953, 3867088, 0722872, 2592902, 003586129, 52016901, 888210721, 1777378, 7586367 ####[facility] [address] [place] [address] Cholesterol in HDL [Mass/Vol] 41 mg/dL Invalid Interpretation Code [facility] Comment on above: Result Comment: '>= 60 LOW RISK' '<= 40 HIGH RISK' Performed By: #### 2 383459, 4439584, 6805158, 0414168, 30149872, 6275905, 6055967, 5331860, 2168476, 636839022, 69293229, 567197758, 2181868, 0253949 ####[facility] [address] [place] [address] Cholesterol in LDL [Mass/Vol] 53 mg/dL Normal <=129 [facility] Comment on above: Performed By: #### 2 908046, 0019067, 2004089, 0659471, 16777230, 9980471, 6071140, 4055130, 6453687, 516401686, 18659425, 583617081, 8939833, 2066454 ####[facility] [address] [place] [address] Cholesterol in VLDL [Mass/Vol] 23 mg/dL Normal 7-40 [facility] Comment on above: Performed By: #### 2 896452, 5016849, 6454832, 8259048, 42985742, 9161860, 7428616, 4523768, 4692167, 490865399, 45674988, 757144403, 4988302, 4679889 ####[facility] [address] [place] [address] Triglyceride [Mass/Vol] 114 mg/dL Normal <=149 [facility] Comment on above: Performed By: #### 2 817060, 7862401, 3738413, 0913927, 53620279, 0238388, 7298406, 4806399, 5069809, 314763116, 54596141, 381129564, 6597313, 8703261 ####[facility] [address] [place] [address] Magnesiumon 02-25-2024 Magnesium [Mass/Vol] 2.0 mg/dL Normal 1.3-2.4 [facility] Comment on above: Performed By: #### 2 239033, 6954301, 3357816, 8198759, 44578744, 7818284, 7586501, 9963527, 2277924, 337138364, 31297111, 584936384, 6238172, 2854692 ####[facility] [address] [place] [address] Phosphoruson 02-25-2024 Phosphate [Mass/Vol] 4.0 mg/dL Normal 1.9-4.6 [facility] Comment on above: Performed By: #### 2 174746, 85843126 #### [facility] [address] [place] [address] Phosphate [Mass/Vol] 4.0 mg/dL Normal 1.9-4.6 [facility] Comment on above: Performed By: #### 1 0827202, 0439520382 #### [facility] [address] [place] [address] Physician Orderon 02-25-2024 Physician Order [id number]#1.00TIFF Normal [facility] RAD - MISCon 02-25-2024 RAD - MISC [id number] 2E08#1.00TIFF Normal [facility] TIBC Calculatedon 02-25-2024 Iron binding capacity [Mass/Vol] 305 microgram/dL Normal 250-400 [facility] Comment on above: Performed By: #### 1 5365751, 4768769708 #### [facility] [address] [place] [address] Transferrin [Mass/Vol] 218 mg/dL Normal 200-370 [facility] Comment on above: Performed By: #### 1 0150276, 6723205286 #### [facility] [address] [place] [address] U MA/Cr Ratioon 02-25-2024 Albumin DL <= 20 mg/L (U) [Mass/Vol] 19.6 mg/dL High 0.0-1.9 [facility] Comment on above: Performed By: #### 1 [id number] #### [facility] [address] [place] [address] Albumin/Creatinine DL <= 20 mg/L (U) [Mass ratio] 327.2 mg/gm Cr High .0-30.0 [facility] Comment on above: Result Comment: 30-3 00 mg/g Cr indicates an increased risk for diabetic nephropathy. >300 mg/g Cr is consistent with clinical nephropathy. Performed By: #### 1 [id number] #### [facility] [address] [place] [address] U Creatinine 59.9 mg/dL Invalid Interpretation Code [facility] Comment on above: Performed By: #### 1 [id number] #### [facility] [address] [place] [address] U Microalbon 02-25-2024 Albumin DL <= 20 mg/L (U) [Mass/Vol] 20.2 mg/dL High 0.0-1.9 [facility] Comment on above: Performed By: #### 1 7687667, 9456164741, 6848569204 ####[facility] [address] [place] [address] U Protein/Creat Ratioon 01-31 Protein/Creatinine (U) [Ratio] 54.70 mg/gm Cr Normal .00-200.00 [facility] Comment on above: Performed By: #### 1 8735519, 7935492221, 2724731649 ####[facility] [address] [place] [address] U Creatinine 60.2 mg/dL Invalid Interpretation Code [facility] Comment on above: Performed By: #### 1 5530962, 9592363545, [id number] ####[facility] [address] [place] [address] Ur Total Protein 32.9 mg/dL Invalid Interpretation Code [facility] Comment on above: Performed By: #### 1 1019202, 0886798028, 2265504904 ####[facility] [address] [place] [address] URINALYSISOrdered By: SYSTEM SYSTEM on 02-25-2024 Color (U) Light-Yellow 1 (02/25/24 2:30 PM) Normal Yellow [facility] UA Auto SS Comment on above: Interpretive Data: M icroscopic readings are only performed on those samples that meet specific criteria set forth by [facility]. Glucose (U) [Mass/Vol] Negative Normal Negativemg/dL [facility] UA Auto SS Ketones Ql (U) Negative Normal Negativemg/dL FT UA Auto SS UA Blood Negative Normal Negativemg/dL FT UA Aut o SS UA Clarity Clear (02/25/24 2:30 PM) Normal Clear FT UA Auto SS UA Leuk Est Negative Normal NegativeLeu/uL FT UA A uto SS UA Nitrite Negative Normal Negativemg/dL FT UA Aut o SS UA pH 5.0 *NA* (02/25/24 2:30 PM) Invalid Interpretation Code 5.0 - 9.0 [facility] UA Auto SS UA Protein Trace mg/dL Invalid Interpretation Code Negativemg/dL [facility] UA Auto SS UA Spec Grav 1.014 *NA* (02/25/24 2:30 PM) Invalid Interpretation Code 1.005 - 1.030 [facility] UA Auto SS UA Urobilinogen Negative Normal Negativemg/dL [facility] U A Auto SS Urobilinogen (U) [Mass/Vol] Negative Normal Negativemg/dL [facility] UA Auto SS URINALYSISOrdered By: Mai Lui on 02-25-2024 UA Spec Desc Clean Catch (02/25/24 2:30 PM) Normal [facility] UA Auto SS Uric Acidon 02-25-2024 Urate (U) [Mass/Vol] 4.4 mg/dL Normal 2.2-7.4 [facility] Comment on above: Performed By: #### 1 8800391, [id number] #### [facility] [address] [place] [address] Urinalysis with Microon 01-31 Color (U) Light-Yellow Normal Yellow [facility] Comment on above: Result Comment: Micr oscopic readings are only performed on those samples that meet specific criteria set forth by [facility]. Performed By: #### 1 9350424, [id number], [id number] ####[facility] [address] [place] [address] Glucose (U) [Mass/Vol] Negative Normal Negative [facility] Comment on above: Performed By: #### 1 3179561, 4949738259, 2939179188 ####[facility] [address] [place] [address] Ketones Ql (U) Negative Normal Negative [facility] Comment on above: Performed By: #### 1 6069819, 4612527188, 9766103708 ####[place] [address] UA Blood Negative Normal Negative [facility] Comment on above: Performed By: #### 1 6552155, 4973916537, 4544725494 ####[place] [address] UA Clarity Clear Normal Clear [facility] Comment on above: Performed By: #### 1 9247997, 3901979353, 1436385184 ####[place] [address] UA Leuk Est Negative Normal Negative [facility] Comment on above: Performed By: #### 1 7510501, 5982470830, 2342093502 ####[place] [address] UA Nitrite Negative Normal Negative [facility] Comment on above: Performed By: #### 1 0288886, 4769641845, 4352784383 ####[place] [address] UA pH 5.0 Invalid Interpretation Code 5.0-9.0 [facility] Comment on above: Performed By: #### 1 6664548, 5824542138, 6319548111 ####[place] [address] UA Protein Trace Abnormal Negative [facility] Comment on above: Performed By: #### 1 9328286, 1997529664, 5075497289 ####[address] UA Spec Grav 1.014 Invalid Interpretation Code 1.005-1.030 [facility] Comment on above: Performed By: #### 1 9930040, 7860766549, 7671644239 ####[address] [place] [address] UA Urobilinogen Negative Normal Negative [facility] Comment on above: Performed By: #### 1 4305326, 5305027331, 9003813831 ####[facility] [address] [place] [address] Urobilinogen (U) [Mass/Vol] Negative Normal Negative [facility] Comment on above: Performed By: #### 1 3472961, 6952603491, [id number] ####[facility] [address] [place] [address] UA Spec Desc Clean Catch Normal [facility] Comment on above: Performed By: #### 1 0964532, 6458412277, [id number] ####[facility] [address] [place] [address] Vit B12on 02-25-2024 Cobalamin (Vitamin B12) [Mass/Vol] pg/mL Normal 50-1500 [facility] Comment on above: Performed By: #### 2 074763, 6285844, 3545465, 8952905, 79508022, 0905503, 7733922, 3645530, 6801363, 102482049, 90402720, 870649880, 3895338, 0243396 ####[address] [address] Vitamin D 25 Hydroxyon 02-24 25-hydroxyvitamin D3 [Mass/Vol] 44.1 ng/mL Normal 30.0-100.0 [facility] Comment on above: Performed By: #### 2 677746, 2027232, 9282423, 6203391, 71154695, 0147107, 4523327, 1810657, 1916554, 854459683, 30131970, 596973522, 6783349, 9907287 ####[address] [place] [address] eGFRon 02-25-2024 eGFR 37 mL/min/1.73 m2 Low >=59 [facility] Comment on above: Order Comment: Order added by Discern Expert. Performed By: #### 1 4116203, [id number] #### [facility] [address] [place] [address] Ambulatory Visit Summaryon 0 02-24-2024 Ambulatory Visit Summary MALCOM KNOWLES :1955 Visit Date:02/24/2024 Ambulatory Visit Instructions Your Diagnosis CKD (chronic kidney disease) stage 3, GFR 30-59 ml/min HTN (hypertension) Type 2 diabetes mellitus with chronic kidney disease Type 2 diabetes mellitus with hypercholesterolem ia Stage 3b chronic kidney disease (CKD) BMI 50.0-59.9, adult Class 3 severe obesity due to excess calories with body mass index (BMI) of 50.0 to 59.9 in adult Nonsmoker History of Uterine cancer Insulin long-term use Major depressive disorder with single episode, in full remission Your Care Team Attending Physician - Jose [...] salpingo-oophorect francisco. Discharge Vitals Temperature (Temporal Artery) 36.2 ?C Heart Rate (Peripheral) 70 Respiratory Rate 16 Blood Pressure 132/84 Height 160 cm Height 63 in Weight 135.8 kg Weight 298.76 lb BMI 53.05 What to do next Scheduled Follow-Up Appointments Saturday 9:30 AM EDT With: Where: [facility] Saturday 2:30 PM EDT With: Where: [facility] Saturday 1:00 PM EDT With: Where: [facility] Invalid Interpretation Code [address] [place] [id number] [email or web address]\ You Need to Complete the Following\.br\ CBC w/ Auto Diff, Blood, Routine collect, 02/24/24, Order for future visit, Lab Collect, CKD (chronic kidney disease) stage 3, GFR 30-59 ml/min [facility] Ambulatory Visit Summary MALCOM KNOWLES :1955 Visit Date:02/24/2024 Ambulatory Visit Instructions Your Diagnosis CKD (chronic kidney disease) stage 3, GFR 30-59 ml/min HTN (hypertension) Type 2 diabetes mellitus with chronic kidney disease Type 2 diabetes mellitus with hypercholesterolem ia Stage 3b chronic kidney disease (CKD) BMI 50.0-59.9, adult Class 3 severe obesity due to excess calories with body mass index (BMI) of 50.0 to 59.9 in adult Nonsmoker History of Uterine cancer Insulin long-term use Major depressive disorder with single episode, in full remission Your Care Team Attending Physician - Jose [...] salpingo-oophorect francisco. Discharge Vitals Temperature (Temporal Artery) 36.2 ?C Heart Rate (Peripheral) 70 Respiratory Rate 16 Blood Pressure 132/84 Height 160 cm Height 63 in Weight 135.8 kg Weight 298.76 lb BMI 53.05 What to do next Scheduled Follow-Up Appointments Saturday 9:30 AM EDT With: Where: [facility] Saturday 2:30 PM EDT With: Where: [facility] Saturday 1:00 PM EDT With: Where: [facility] [place] Normal [address] [id number]- \.br\ Medications\.br\ What How Much When Why [...] day\.br\ Unchanged ciprofloxacin (Cipro 500 mg Tab) 1 Tablets By Mouth 2 times a day Take twice daily x5 days starting the day prior to the procedure \.br\ Unchanged clopidogrel (Plavix 75 mg Tab) [...] daily as needed for hemorrhoids \.br\ Unchanged hydrocortisone-pramox ine topical (Proctofoam HC rectal foam) 1 Application By rectum 3 times a day UTI (urinary tract infection) BMI 50.0-59.9, adult\.br\ Unchanged insulin aspart (Insulin Aspart FlexPen 100 [...] times per day \.br\ Unchanged Misc Prescription (handicap placard) See instructions Duration 5 years \.br\ Unchanged Misc Prescription (Home health physical [...] treat better fitting wheel chair \.br\ Unchanged Mis Prescription (Physical therapy treat and evaluate, properly sized walker,) See instructions UTI (urinary tract infection) see above \.br\ Unchanged multivitamin with minerals (PreserVision AREDS 2) 1 Tablets Chewed Every day\.br\ Unchanged nitroglycerin (nitroglycerin 0.4 mg sublingual Tab) 1 Tablets Sublingual Every 5 minutes as needed for for chest pain\.br\ Unchanged nystatin topical (nystatin Top 100,000 units/ g Crm 15 gram) See instructions apply topically to affected area(s) per plan as needed \.br\ Unchanged ondansetron (ondansetron 4 mg Tab) 1 Tablets By Mouth Every 6 hours\.br\ Unchanged polyethylene glycol 3350 17 Gram By Mouth Every day dissolve in 8ozs of water \.br\ Unchanged potassium chloride (potassium chloride 20 mEq ER Tab) 1 Tablets By Mouth Every day\.br\ Unchanged sodium chloride nasal (Saline Mist 0.65% nasal spray) See instructions 1 spray each nostril every shift, may self administer \.br\ Unchanged tobramycin ophthalmic (Tobrex Oph Sherry 0.3% Soln-Opth) 4 times a day\.br\ Unchanged venlafaxine (venlafaxine 150 mg Cap-ER) 1 Capsules By Mouth Every day\.br\ Unchanged zinc oxide topical (zinc oxide Top 20% Oint) See instructions apply topically to red areas on buttocks twice daily as needed \.br\ Allergies\.br\ influenza virus vaccine, inactivated\.br\ sulfa drugs [...] of Uterine cancer\.br\ HTN (hypertension)\.br\ Hx of Guillain-Parkton syndrome\.br\ Hypercholesterolemia\ .br\ Insulin long-term use\.br\ Major depressive disorder with single episode, in full remission\.br\ Migraines\.br\ Mixed incontinence\.br\ Morbid obesity\.br\ Stage 3b chronic kidney disease (CKD)\.br\ Type 2 diabetes mellitus with chronic kidney disease\.br\ Type 2 diabetes mellitus with hypercholesterolemia\ .br\ Urethral stricture\.br\ Urge incontinence\.br\ Vitamin D deficiency\.br\ Patient Survey\.br\ You may receive a survey via text or e-mail asking about your office visit. Please share your experience with us by completing your survey. We appreciate your feedback and thank you for choosing us for your care.\.br\ \.br\ [facility] Automated urine specific gra vity by refractometryon 02-24-2024 Specific gravity Refractometry automated (U) [Rel density] 1.020 1.005-1.025 [facility] Bilirubin Auto test strip (U ) [Mass/Vol]on 02-24-2024 Bilirubin (U) [Mass/Vol] Negative NEGATIVE [facility] Color Auto (U)on 02-24-2024 Color (U) LT. YELLOW YELLOW [facility] Erythrocyte distribution wid th Auto (RBC) [Ratio]on 02-24-2024 Erythrocyte distribution width (RBC) [Ratio] 13.4 % 11.0-15.0 [facility] Estimated glomerular filtrat ion rate (GFR) non- Americanon 02-24-2024 GFR/1.73 sq M.predicted among non-blacks MDRD (S/P/Bld) [Vol rate/Area] 32 mL/min/{1.73_m2} >=60 [facility] Family Medicine Office/Clini c Noteon 02-24-2024 Family Medicine Office/Clinic Note HPI Staff Gasca is a 68 year old female presenting for 3 month follow up DM, HTN Needs H&P and clearance for retina surgery 05/11/24 w/ [facility] Forms in the room Do you have any of the following symptoms? Foot Exam: was being done by Dr Graham Eye Exam: UTD many in the last year Last A1C: Hgb A1C %: 8.2 % High (10/01/23 10:44:00) Dr Zhu 12/16/23 A1c 7.6% Statin: atorvastatin 80mg Patient is here for follow up on hypertension. How often are you checking your blood pressure? checked at the home What are your average readings? _ Yearly BMP: 10/01/23 flu: contraindicated ( Guillian barre) History of Present Illness - Here for follow up. - Pt continues to fall. - Pt has not done anything to help prevent this. - Recent covid infection and doing better. Review of Systems PHQ Score Initial Depression Screen Score: 0 SCORE Physical Exam Vitals & Measurements T: 36.2 ?C(Temporal Artery) HR: 70(Peripheral) RR: 16 BP: 132/84 SpO2: 98% HT: 63 in HT: 160 cm WT: 135.8 kg WT: 298.76 lb BMI: 53.05 General: alert, no acute distress, Morbidly Obese ENMT: oral mucosa moist, Cardiovascular: regular rate and rhythm, normal peripheral perfusion Respiratory: Lungs CTA, respirations non labored Extremities: no deformity, no trauma Neurological: oriented x 4, LOC appropriate for age, CN II-XII intact, motor strength equal & normal bilaterally, speech normal, Wheelchair bound. Abdomen: Soft, Nontender, Non-distended, + BS Assessment/Plan Total time spent preparing for the encounter, evaluating and assessing the patient, documenting the visit, and ordering appropriate follow-up work was 40 minutes. 1. CKD (chronic kidney disease) stage 3, GFR 30-59 ml/min (N18.30: Chronic kidney disease, stage 3 unspecified) - Will recheck - Will adjust meds as needed. Ordered: Body Mass Index (BMI) documented 3008F CBC w/ Auto Diff Comprehensive Metabolic Panel Current tobacco non-user 1036F Depression Screening Negative 3352F Fall Risk Screen 2 or more w/injury 1100F HgbA1c Influenza immunization status assessed 1030F Lipid Panel Microalbumin Level Urine Most recent diastolic blood pressure 80-89 mm Hg 3079F Systolic BP 130-139 mm Hg (Most Recent) 3075F U Protein/Creat Ratio 2. HTN (hypertension) (I10: Essential (primary) hypertension) - At goal. Ordered: Body Mass Index (BMI) documented 3008F CBC w/ Auto Diff Comprehensive Metabolic Panel Current tobacco non-user 1036F Depression Screening Negative 3352F Fall Risk Screen 2 or more w/injury 1100F HgbA1c Influenza immunization status assessed 1030F Lipid Panel Microalbumin Level Urine Most recent diastolic blood pressure 80-89 mm Hg 3079F Systolic BP 130-139 mm Hg (Most Recent) 3075F U Protein/Creat Ratio 3. Type 2 diabetes mellitus with chronic kidney disease (E11.22: Type 2 diabetes mellitus with diabetic chronic kidney disease) - Will recheck - Last A1c was in the 7's. Ordered: Body Mass Index (BMI) documented 3008F CBC w/ Auto Diff Comprehensive Metabolic Panel Current tobacco non-user 1036F Depression Screening Negative 3352F Fall Risk Screen 2 or more w/injury 1100F HgbA1c Influenza immunization status assessed 1030F Lipid Panel Microalbumin Level Urine Most recent diastolic blood pressure 80-89 mm Hg 3079F Systolic BP 130-139 mm Hg (Most Recent) 3075F U Protein/Creat Ratio 4. Type 2 diabetes mellitus with hypercholesterolem ia (E11.69: Type 2 diabetes mellitus with other specified complication) - As above Ordered: Body Mass Index (BMI) documented 3008F CBC w/ Auto Diff Comprehensive Metabolic Panel Current tobacco non-user 1036F Depression Screening Negative 3352F Fall Risk Screen 2 or more w/injury 1100F HgbA1c Influenza immunization status assessed 1030F Lipid Panel Microalbumin Level Urine Most recent diastolic blood pressure 80-89 mm Hg 3079F Systolic BP 130-139 mm Hg (Most Recent) 3075F U Protein/Creat Ratio 5. Stage 3b chronic kidney disease (CKD) (N18.32: Chronic kidney disease, stage 3b) - Will recheck. Ordered: Body Mass Index (BMI) documented 3008F CBC w/ Auto Diff Comprehensive Metabolic Panel Current tobacco non-user 1036F Depression Screening Negative 3352F Fall Risk Screen 2 or more w/injury 1100F HgbA1c Influenza immunization status assessed 1030F Lipid Panel Microalbumin Level Urine Most recent diastolic blood pressure 80-89 mm Hg 3079F Systolic BP 130-139 mm Hg (Most Recent) 3075F U Protein/Creat Ratio 6. BMI 50.0-59.9, adult (Z68.43: Body mass index [BMI] 50.0-59.9, adult) - BMI education given Ordered: Body Mass Index (BMI) documented 3008F CBC w/ Auto Diff Comprehensive Metabolic Panel Current tobacco non-user 1036F Depression Screening Negative 3352F Fall Risk Screen 2 or more w/injury 1100F HgbA1c Influenza immunization status assessed 1030F Lipid Panel Microalbumin Level Urine Most (more content not included)... Normal [facility] Comment on above: Result Comment: Elec tronically Signed By: Kaushal JUDGE, Jose Lau\.br\Date and Time Signed: 02/24/24 10:51 EDT Globulin Calc (S) [Mass/Vol] on 02-24-2024 Globulin (S) [Mass/Vol] 4.4 g/dL [facility] Hematocrit Auto (Bld) [Volum e fraction]on 02-24-2024 Hematocrit (Bld) [Volume fraction] 37.6 % 36.0-48.0 [facility] Hemoglobin [Mass/volume] in Bloodon 02-24-2024 Hemoglobin (Bld) [Mass/Vol] 12.0 g/dL 12.0-16.0 [facility] Iron binding capacity [Mass/ volume] in Serum or Plasmaon 02-24-2024 Iron binding capacity [Mass/Vol] 264.0 ug/dL 250.0-450.0 [facility] Iron saturation [Mass Fracti on] in Serum or Plasmaon 02-24-2024 Iron saturation [Mass fraction] 23.9 % [facility] Ketones Auto test strip (U) [Mass/Vol]on 02-24-2024 Ketones (U) [Mass/Vol] Negative NEGATIVE [facility] Laboratory - Chemistry and C hemistry - challengeon 02-24-2024 Albumin [Mass/Vol] 3.1 g/dL 3.4-5.0 [facility] ALP [Catalytic activity/Vol] 77 U/L 46-116 [facility] ALT [Catalytic activity/Vol] 35 U/L 14-59 [facility] AST [Catalytic activity/Vol] 23 U/L 15-37 [facility] Bilirubin [Mass/Vol] 0.5 mg/dL 0.2-1.0 [facility] Calcium [Mass/Vol] 9.3 mg/dL 8.5-10.1 [facility] Chloride [Moles/Vol] 105 mmol/L 98-107 [facility] CO2 [Moles/Vol] 31.9 mmol/L 21.0-32.0 [facility] Cobalamin (Vitamin B12) [Mass/Vol] 2977.0 pg/mL 193.0-986.0 [facility] Creatinine [Mass/Vol] 1.58 mg/dL 0.55-1.02 [facility] Ferritin [Mass/Vol] 117.0 ng/mL 8.0-252.0 [facility] GFR/1.73 sq M.predicted MDRD (S/P/Bld) [Vol rate/Area] 39 mL/min/{1.73_m2} >=60 [facility] Glucose [Mass/Vol] 101 mg/dL 74-106 [facility] Iron [Mass/Vol] 63.0 ug/dL 50.0-170.0 [facility] Magnesium [Mass/Vol] 1.9 mg/dL 1.8-2.4 [facility] Potassium [Moles/Vol] 3.9 mmol/L 3.5-5.1 [facility] Protein [Mass/Vol] 7.5 g/dL 6.4-8.2 [facility] Sodium [Moles/Vol] 145 mmol/L 136-145 [facility] Urate [Mass/Vol] 4.0 mg/dL 2.6-6.0 [facility] Urea nitrogen [Mass/Vol] 19.0 mg/dL 7.0-18.0 [facility] Urea nitrogen/Creatinin e [Mass ratio] 12.0 mg/mg [facility] Laboratory - Urinalysison Protein (U) [Mass/Vol] 25.8 mg/dL <=11.9 [facility] Leukocytes [#/volume] correc carmen for nucleated erythrocytes in Blood by Automated counon 02-24-2024 WBC corrected for nucl RBC Auto (Bld) [#/Vol] 7.5 10 3/uL 4.0-11.0 [facility] MCH Auto (RBC) [Entitic mass ]on 02-24-2024 MCH (RBC) [Entitic mass] 30.0 pg 26.7-34.0 [facility] MCHC Auto (RBC) [Mass/Vol]on 02-24-2024 MCHC (RBC) [Mass/Vol] 31.9 g/dL 29.9-35.2 [facility] MCV Auto (RBC) [Entitic vol] on 02-24-2024 MCV (RBC) [Entitic vol] 94.0 fL 81.0-99.0 [facility] No Panel Informationon 02-23 25-Hydroxy Vitamin D Total 50.0 ng/mL [facility] Comment on above: <20 ng/mL Vit D defi cient20-<30 ng/mL Vit D ddpffvqyexao77-698 ng/mL Vit D sufficient>100 ng/mL Potential Toxicity Folate 25.10 ng/mL 8.60-58.90 [facility] Phosphorus Level 3.7 mg/dL 2.6-4.7 [facility] Urine Random Creatinine 42.67 mg/dL 20.00-300.00 [facility] Retirement Recordson 02-23 Retirement Records [id number]#1.00TIFF Normal [facility] Platelet mean volume Auto (B ld) [Entitic vol]on 02-24-2024 Platelet mean volume (Bld) [Entitic vol] 10.5 fL 9.5-13.5 [facility] Platelets Auto (Bld) [#/Vol] on 02-24-2024 Platelets (Bld) [#/Vol] 244 10 3/uL 150-450 [facility] Protein Auto test strip (U) [Mass/Vol]on 02-24-2024 Protein (U) [Mass/Vol] Negative NEG/TRACE [facility] RBC Auto (Bld) [#/Vol]on RBC (Bld) [#/Vol] 4.00 10 6/uL 4.20-5.40 [facility] Serum or plasma albumin/glob ulin mass ratioon 02-24-2024 Albumin/Globulin [Mass ratio] 0.7 {ratio} [facility] Serum or plasma anion gap de terminationon 02-24-2024 Anion gap [Moles/Vol] 12.0 mmol/L [facility] Specific gravity Auto test s trip (U) [Rel density]on 02-24-2024 Specific gravity (U) [Rel density] CLEAR CLEAR [facility] Urine glucose measurement by test strip (mass/volume)on 02-24-2024 Glucose Test strip (U) [Mass/Vol] Negative NEGATIVE [facility] Urine hemoglobin detection b y automated test stripon 02-24-2024 Hemoglobin Auto test strip Ql (U) SMALL NEGATIVE [facility] Urine nitrite detection by a utomated test stripon 02-24-2024 Nitrite Auto test strip Ql (U) Negative NEGATIVE [facility] Urine protein/creatinine rat ioon 02-24-2024 Protein/Creatinine (U) [Ratio] 0.60 [facility] Urobilinogen Auto test strip (U) [Mass/Vol]on 02-24-2024 Urobilinogen Qn (U) 0.2 {Torres'U}/dL 0.2-1.0 [facility] pH Auto test strip (U)on pH (U) 5.5 [pH] 5.0-9.0 [facility] ED Note-Physicianon 02-20-20 ED Note-Physician [id number]#1.00TIFF Normal [facility] Screenson 02-07-2024 Screens [id number]#1.00TIFF Normal [facility] Retirement Recordson 02-05 Retirement Records [id number]#1.00TIFF Normal [facility] Living Will/POAon 02-05-2024 Living Will/POA [id number]#1.00TIFF [facility] Retirement Recordson 02-04 Retirement Records [id number]#1.00TIFF [facility] Ambulatory Visit Summaryon 0 02-04-2024 Ambulatory [...] replacement, History of right total knee replacement, RAYAN BSO - Total abdominal hysterectomy and bilateral salpingo-oophorect francisco. Discharge Vitals Temperature (Temporal Artery) 36.8 ?C Heart Rate (Peripheral) 67 Respiratory Rate 17 Blood Pressure 140/86 Height 160 cm Height 63 in Weight 138 kg Weight 303.6 lb BMI 53.91 What to do next Scheduled Follow-Up Appointments Saturday 10:15 AM EDT With: Jose Snow MD Where: [facility] [place] Invalid Interpretation Code [address] [place] [address]- \.br\ Saturday 2:00 PM EDT \.br\ With: BRIGIDA WILLOUGHBY PA-C\.br\ Where: [facility] Patient Educationon 02-04-20 Patient Education [...] health care provider. General instructions ? Take zeqn-wad-nqhyipd and prescription medicines only as told by [...] monitor yo (more content not included)... Normal [facility] Urology Office/Clinic Noteon 03-05-2024 Urology Office/Clinic Note Chief Complaint 6 week [...] With When Contact Information [facility] [place] [address] Business (1) Additional Instructions: our planner/scheduler will be contacting you for follow-up Patient Education Overactive Bladder, Adult Problem List/Past Medical History Ongoing (Idiopathic) normal pressure hydrocephalus ASCVD (arteriosclerotic cardiovascular disease) Benign hypertension with chronic kidney disease BMI 50.0-59.9, adult CKD (chronic kidney disease) stage 3, GFR 30-59 ml/min Confusion Diabetic retinopathy Essential tremor Frequent falls Frequent UTI Gait disorder Gross hematuria History of Uterine cancer HTN (hypertension) Hx of Guillain-Parkton syndrome Hypercholesterolem ia Insulin long-term use Major [...] History of l (more content not included)... [facility] Comment on above: Result Comment: Elec tronically Signed By: BRIGIDA WILLOUGHBY PA-C\.br\Date and Time Signed: 02/04/24 12:37 EST Consultation Noteon 01-23-20 Consultation Note [id number]#1.00TIFF [facility] Retirement Recordson 01-17 Retirement Records [id number]#1.00TIFF [facility] Consultation Noteon 01-13-20 Consultation Note [id number]#1.00TIFF [facility] Consultation Note [id number]#1.00TIFF [facility] Retirement Recordson 01-01 Retirement Records [id number]#1.00TIFF [facility] Retirement Recordson 12-30 Retirement Records [id number]#1.00TIFF [facility] Retirement Recordson 12-25 Retirement Records [id number]#1.00TIFF [facility] Consent for Procedure/Surger yon 12-23-2023 Consent for Procedure/Surgery [id number]#1.00TIFF [facility] Consent for Treatmenton 12-03 Consent for Treatment [id number]#1.00TIFF [facility] Inpatient Patient Summaryon 12-23-2023 Inpatient Patient Summary [address] [id number] Clinical Summary Person Information Name: MALCOM KNOWLES Age: 68 Years : 1955 Sex: Female PCP: Jose Snow MD Marital Status: Race: White Ethnicity: Non- or Language: Martiniquais Visit Id: Visit Reason: URINARY INCONTINENCE URETERAL STRICTURE RECURRENT UTI Speciality: Acuity: Enc Type: Outpatient Med Service: Surgery Arrival: 12/23/2023 14:07:21 Discharge: Dispo Type: Address: [address] [place] [phone] Provider Notes: Diagnosis: Problems Active (Idiopathic) normal pressure hydrocephalus Frequent falls Confusion Polyuria Urethral stricture UTI (urinary tract infection) UTI symptoms Gross hematuria Mixed incontinence Major depressive disorder with single episode, in full remission Stage 3b chronic kidney disease (CKD) Hx of Guillain-Parkton syndrome Morbid obesity Benign hypertension with chronic [...] 1 Table (more content not included)... Normal [facility] IntraOperative Documentson 0 12-23-2023 IntraOperative Documents [id number]#1.00TIFF Normal [facility] Main OR Intraoperative Recor don 12-23-2023 Main OR Intraoperative Record IntraOp Document Type FTURO Summary Primary Physician: Joe BOOTH MD Finalized Date/Time: 12/23/23 15:44:42 Pt. Name: MALCOM KNOWLES/Sex: 1955 Female Med Rec #: [id number] Physician: Joe BOOTH MD Financial #: [id number] Pt. Type: O Room/Bed: / Admit/Disch: 12/23/23 14:07:21 - Institution: Case Times FTURO Entry 1 Patient Times In Room 12/23/23 15:19:00 Out Room 12/23/23 15:39:00 Procedure Times Start 12/23/23 15:29:00 Stop 12/23/23 15:33:00 Anesthesia Times Last Modified By: Juan Manuel DE LOS SANTOS, JOSE LUISOR, Samaria 12/23/23 15:33:40 Case Attendance FTURO Entry 1 Entry 2 Entry 3 Case Attendee EMMY JUDGE, Joe Zambrano RN, JOSE LUISOR, Mini Braswell Role Performed Surgeon - Primary Environmental Planner - Primary Scrub - Primary Time In [...] with UD Primary Procedure Yes Primary Surgeon EMMY JUDGE, Joe Guerra Start 12/23/23 15:29:00 Stop 12/23/23 15:33:00 Anesthesia [...] Out Joe BOOTH MD, Verified (If Participants Juan Manuel DE LOS SANTOS, RAJESH, Applicable) French Mera Jessica D Time Out [...] RAJESH Zambrano RN, Ruthann 12/23/23 15:44 Normal [facility] Main OR Preoperative Recordo n 12-23-2023 Main OR Preoperative Record Holding Area Document Type FTURO Summary Primary Physician: Joe BOOTH MD Finalized Date/Time: 12/23/23 14:30:39 Pt. Name: MALCOM KNOWLESO.B./Sex: 1955 Female Med Rec #: [id number] Physician: Joe BOOTH MD Financial #: [id number] Pt. Type: O Room/Bed: / Admit/Disch: 12/23/23 [...] By: Michelle Bedolla RN 12/23/23 14:30 Normal [facility] Operative Reporton Operative Report Patient: [...] The Urethra is: Tight, Tight at 18 Indonesian. The Bladder is: Normal, Trabeculated Moderate (2), No tumors, no stones. Moderate retained urine.. The ureteral orifices: Show efflux of clear urine. The Urethra was dilated to: 30 Indonesian w/ sounds. Devices Implanted: None. Removal: Cystoscope [...] available on her nursing facility formulary.. Normal [facility] Comment on above: Result Comment: Elec tronically Signed By: Joe BOOTH MD\.br\Date and Time Signed: 12/23/23 15:48 EST Outpatient Surgery Discharge Instructionon 12-23-2023 Outpatient Surgery Discharge Instruction [address] [address] Patient Discharge Instructions PERSON INFORMATION [...] Follow up: With: Address: When: BRIGIDA WILLOUGHBY [address] [place] [address] [facility] [place] [place] [id number] [facility] (1) Within 6 weeks Comments: Call for followup appointment, with a bladder scan for PVR at that visit. Monitor your urinary flow after the dilation of the channel today. Type Location Start Finish State URO Office Visit [facility] [place] 02/04/2024 11:20 AM 02/04/2024 11:35 AM [facility]15 AM 02/24/2024 10:25 AM Confirmed URO Office Visit [facility] [place] 03/03/2024 2:00 PM 03/03/2024 2:15 PM Confirmed [...] to serve you. Thank you for choosing [facility] Normal [facility] Retirement Recordson 12-17 Retirement Records [id number]#1.00TIFF Normal [facility] Ambulatory Visit Summaryon 0 12-16-2023 Ambulatory Visit Summary MALCOM KNOWLES :1955 Visit Date:12/16/2023 Ambulatory Visit Instructions Your Diagnosis UTI (urinary tract infection) Polyuria Confusion Frequent falls (Idiopathic) normal pressure hydrocephalus BMI 50.0-59.9, adult Tests Performed Urnls Dip Stick Non-Auto w/o Micrscpy POC [id number] Your Care Team Attending Physician - Mariangel [...] Appointments Saturday 11:00 AM EST With: Where: [facility] Saturday 3:00 PM EST With: Where: [facility] Saturday 10:15 AM EDT With: Kaushal JUDGE, Jose Lau Where: [facility] Normal [address] [place] [address] [place] [address]- \.br\ Medications\.br\ What How Much When Why Instructions\.br\ New hydrocortisone-pramox ine topical (Proctofoam HC rectal foam) 1 Application By rectum 3 times a day UTI (urinary tract infection) BMI 50.0-59.9, adult Pickup at [facility]\.br\ Unchanged acetaminophen (acetaminophen 500 mg Tab) 2 [...] a day Duration: 10 Days [facility]\ Unchanged nitroglycerin (nitroglycerin 0.4 mg sublingual Tab) [...] daily as needed \.br\ Pharmacy Information\.br\ [facility] [place]: [address] [place] [address] [phone]\.br\ Test Results\.br\ Urnls Dip Stick Non-Auto w/o Micrscpy POC 29965 (12/16/2023)\.br\ Bilirubin Urine Dipstick - Negative\.br\ Blood Urine Dipstick - 3+ Large\.br\ Glucose Urine Dipstick - Negative\.br\ Ketones Urine Dipstick - Negative\.br\ Leukocytes Urine Dipstick - 2+ Moderate\.br\ Nitrite Urine Dipstick - Negative\.br\ Protein Urine Dipstick - 3+ (300 mg/dl)\.br\ Specific [place] Urine Dipstick - >=1.030\.br\ Urine Appearance Urine [...] of Uterine cancer\.br\ HTN (hypertension)\.br\ Hx of Guillain-Parkton syndrome\.br\ Hypercholesterolemia\ .br\ Insulin long-term use\.br\ Major depressive disorder with single episode, in full remission\.br\ Migraines\.br\ Mixed incontinence\.br\ Morbid obesity\.br\ Obesity\.br\ Polyuria\.br\ Stage 3b chronic kidney disease (CKD)\.br\ Type 2 diabetes mellitus with chronic kidney disease\.br\ Type 2 diabetes mellitus with hypercholesterolemia\ .br\ Urethral stricture\.br\ UTI (urinary tract infection)\.br\ UTI symptoms\.br\ Vitamin D deficiency\.br\ [facility] Medicine Office/Clini c Noteon 12-16-2023 [facility] Medicine Office/Clinic Note Chief Complaint UTI symptoms [...] let us know. will send referral for [facility] and [facility] for suspected hydrocephalus. Ordered: hydrocortisone-pra moxine topical, 1 teresa, Rectal, TID, 10 gram, Refill(s) 0, [facility] [place], 160, cm, 12/16/23 10:57:00 EST, Height/Length Dosing, 130, kg, 12/16/23 10:53:00 EST, Weight Dosing [facility] External Ambulatory Referral Urnls Dip Stick Non-Auto w/o Micrscpy POC 10353 2. Polyuria (R35.89: Other polyuria) pt has had worsening polyuria. was told by liner roll changer and Dr. Snow to see neurology for suspected normotensive hydrocephalus due to all of her symptoms. will refer to [facility] Ordered: [facility] External Ambulatory Referral [facility] External Ambulatory Referral 3. Confusion (R41.0: Disorientation, unspecified) worsening confusion Ordered: [facility] External Ambulatory Referral [facility] External Ambulatory Referral 4. Frequent falls (R29.6: Repeated falls) pt has fallen 8 times in 3 weeks. daughter requesting referral to [facility] Ordered: [facility] External Ambulatory Referral [facility] External Ambulatory Referral 5. 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 will send referral to [facility]. was previously being see by Dr. Loredo in [place] Ordered: [facility] External Ambulatory Referral [facility] External Ambulatory Referral 6. BMI 50.0-59.9, adult (Z68.43: Body mass index [BMI] 50.0-59.9, adult) BMI education complete Ordered: hydrocortisone-pra moxine topical, 1 teresa, Rectal, TID, 10 gram, Refill(s) 0, [facility] [place], 160, cm, 12/16/23 10:57:00 EST, Height/Length Dosing, 130, kg, 12/16/23 10:53:00 EST, Weight Dosing Urnls Dip Stick Non-Auto w/o Micrscpy POC 95077 Orders: nitrofurantoin, 100 mg = 1 cap(s), Oral, BID, X 10 day(s), # 20 cap(s), Refills(s) 0, Pharmacy: [facility] [place], 160, cm, 12/16/23 10:57:00 EST, Height/Length [...] of Uterine cancer HTN (hypertension) Hx of Guillain-Parkton syndrome Hypercholesterolem ia Insulin long-term use Major [...] mg= 1 tab (more content not included)... [facility] Comment on above: Result Comment: Elec tronically Signed By: Mariangel Peña\.br\Date and Time Signed: 12/16/23 12:09 EST Lab Reportson 12-16-2023 Lab Reports [id number]#1.00TIFF [facility] Lab Reports [id number]#1.00TIFF [facility] Physician Referralon 024 Physician Referral [id number]. [id number]#1.00TIFF [facility] Physician Referral [id number]. [id number]#1.00TIFF [facility] Retirement Recordson 12-09 Retirement Records [id number]#1.00TIFF [facility] Retirement Recordson 12-05 Retirement Records [id number] 1374#1.00TIFF [facility] Transfer Inon 12-04-2023 Transfer In [id number] 626D#1.00TIFF [facility] Outside Mammographyon 2023 Outside Mammography [id number]#1.00TIFF [facility] RAD - Ultrasound Reporton RAD - Ultrasound Report [id number] 2393#1.00TIFF [facility] Formson 11-22-2023 Forms [id number] 288E#1.00TIFF [facility] Retirement Recordson 11-22 Retirement Records [id number] 1988#1.00TIFF [facility] Physician Referralon 023 Physician Referral [id number]#1.00TIFF [facility] Ambulatory Visit Summaryon 1 01-22-2023 Ambulatory Visit Summary MALCOM KNOWLES :1955 Visit Date:11/21/2023 Ambulatory Visit Instructions Your Diagnosis Mixed incontinence Gross hematuria UTI (urinary tract infection) Type 2 diabetes mellitus with chronic kidney disease Tests Performed Urnls Dip Stick Auto w/o Microscopy POC 67770 Your Care Team Attending Physician - FARTUN MCCOLLUM, BRIGIDA Seals Primary Care Physician - Jose Snow MD. Referring Physician - DEJUAN JUDGE, CHIP This [...] EDT With: Kaushal JUDGE, Jose Lau Where: [facility] [place] Normal [address] [place] [address]- \.br\ You Need to Schedule the Following Appointments\.br\ Follow Up with BRIGIDA WILLOUGHBY PA-C, URL When: \.br\ Where:\.br\ [address]\.br\ [place] [address]\.br\ [id number]\.br\ Medications\.br\ What How Much When Why Instructions\.br\ [...] if questions or concerns \.br\ Unchanged zinc [facility] Retirement Recordson 11-213 Retirement Records [id number]#1.00TIFF Normal [facility] Retirement Records [id number] 1ABA#1.00TIFF Normal [facility] Patient Educationon 11-21-20 Patient Education [...] stimulation). ? For women, using a medical center manager to prevent urine leaks. This is [...] urine. ? (more content not included)... Normal [facility] Urology Office/Clinic Noteon 11-21-2023 Urology Office/Clinic Note Chief Complaint Twist Tester referal for urinary incontinence HPI Staff New Pt. Referral per Chip Mcmullen due to urinary incontinence. BUN 24, Creatinine 1.5 done 10/01/23 -[facility]. Daughter is with her today Never been in our office before Last UTI Beginning of summer [facility] is where she is staying right [...] or suspicious lesions Assessment/Plan 68 yo F nnp referred by Chip Mcmullen for urinary incontinence. Pt is here with her daughter (POA) today. Currently resides at [facility]. Ambulates via wheelchair. Renal fxn: 10/01/23 - [...] and control BMs. Educational pamphlets provided. Ordered: 47627 Measure Post Void residual urine and/or bladder capacity by US- non-imaging Urnls Dip Stick Auto w/o Microscopy POC 74397 2. Urethral stricture (N35.919: Unspecified urethral stricture, [...] se OTC if available. -see #2 Ordered: 08987 Measure Post Void residual urine and/or bladder capacity by US- non-imaging Urnls Dip Stick Auto w/o Microscopy POC 65488 4. 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 Normal [facility] Comment on above: Result Comment: Elec tronically Signed By: FARTUN MCCOLLUM, BRIGIDA Seals\.br\Date and Time Signed: 11/21/23 12:19 EST\.br\Electronically Co-Signed By: More Traylor\.fani\Date and Time Co-Signed: 11/21/23 11:43 EST Family [...] female. The patient received communication from the healthcare social worker, however, the healthcare social worker was uncertain about her responsibilities. [...] patient is under the care of an warp bleaching vat tender. Her glycemic levels have decreased. The next appointment with the warp bleaching vat tender is scheduled after a consultation with Dr. Zhu on 12/16/2023 for a 3-month follow-up. She is also under the care of an auto slip cover installer, an bakery associate, and a retina specialist due to an [...] No other con (more content not included)... [facility] Comment on above: Result Comment: Elec tronically Signed By: Jose Snow MD\.br\Date and Time Signed: 11/20/23 17:33 EST\.br\Electronically Co-Signed By: Rebekah Ferraro\.br\Date and Time Co-Signed: 11/20/23 17:13 EST Retirement Recordson 11-07 Retirement Records [id number]#1.00TIFF [facility] Home Health Recordson 2022 Home Health Records [id number]#1.00TIFF [facility] Home Health Recordson 2022 Home Health Records [id number]#1.00TIFF [facility] Outside Mammographyon 2022 Outside Mammography [id number] 004E#1.00TIFF [facility] Retirement Recordson 10-28 Retirement Records [id number] 114#1.00TIFF [facility] Interdisciplinary Note - Soc ial Workeron 10-16-2023 Interdisciplinary Note - Manager Printing This SW received a message regarding placement [...] that fantasma can stay in her current [place] apartment and that she does not have to move her to . SW's direct line was provided and SW encouraged her to reach out should she have needs or questions. SW will remain available. Normal [facility] Home Health Recordson 2022 Home Health Records [id number]#1.00TIFF Normal [facility] Auto Diffon 10-01-2023 Basophils/100 WBC (Bld) 1.0 % Normal 0.0-2.0 [facility] Comment on above: Order Comment: Order Added by Discern Expert. Performed By: #### 7 [id number], 17511939, 5912707, 2813429, 1647394, 9956024 ####[facility] [address] [place] [address] Basophils/Leukocyt es Auto (Bld) [Pure # fraction] 0.1 E9/L Normal 0.0-0.2 [facility] Comment on above: Order Comment: Order Added by Discern Expert. Performed By: #### 7 [id number], 24764002, 9163363, 9373545, 1184933, 5962815 ####[facility] [address] [place] [address] Eosinophils/100 WBC (Bld) 5.3 % Normal 0.0-8.0 [facility] Comment on above: Order Comment: Order Added by Discern Expert. Performed By: #### 7 [id number], 07671863, 8990336, 9061353, 7863235, 3478354 ####[facility] [address] [place] [address] Eosinophils/Leukoc ytes Auto (Bld) [Pure # fraction] 0.3 E9/L Normal 0.0-0.5 [facility] Comment on above: Order Comment: Order Added by Discern Expert. Performed By: #### 7 [id number], 65316655, 4175173, 4625570, 0753078, 9168710 ####[address] [place] [address] Lymphocytes/100 WBC (Bld) 37.2 % Normal 14.0-50.0 [facility] Comment on above: Order Comment: Order Added by Discern Expert. Performed By: #### 7 09488647, 53177271, 4637026, 0379605, 5664104, 0272572 ####[address] [address] Lymphocytes/Leukoc ytes Auto (Bld) [Pure # fraction] 2.0 E9/L Normal 1.0-4.0 [facility] Comment on above: Order Comment: Order Added by Discern Expert. Performed By: #### 7 45136932, 73957963, 0540953, 5694152, 8623234, 0058479 ####[address] [address] Monocytes/100 WBC (Bld) 10.7 % Normal 4.0-14.0 [facility] Comment on above: Order Comment: Order Added by Discern Expert. Performed By: #### 7 70139053, 13454342, 1422811, 8013632, 5891919, 3875433 ####[address] [address] Monocytes/Leukocyt es Auto (Bld) [Pure # fraction] 0.6 E9/L Normal 0.2-1.0 [facility] Comment on above: Order Comment: Order Added by Discern Expert. Performed By: #### 7 88356497, 22270894, 4847133, 7461181, 6316946, 3416002 ####[address] [address] Neutrophils/100 WBC (Bld) 45.8 % Normal 36.0-75.0 [facility] Comment on above: Order Comment: Order Added by Discern Expert. Performed By: #### 7 [id number], 93481387, 4822182, 7167209, 1586665, 4880583 ####[facility] [address] [place] [address] Neutrophils/Leukoc ytes Auto (Bld) [Pure # fraction] 2.5 E9/L Normal 2.0-7.5 [facility] Comment on above: Order Comment: Order Added by Discern Expert. Performed By: #### 7 56509957, 23689722, 6064667, 7231472, 6207047, 2197922 ####[facility] [address] [place] [address] CBC w/ Auto Diffon Erythrocyte distribution width (RBC) [Ratio] 15.1 % High 10.9-14.2 [facility] Comment on above: Performed By: #### 7 50984590, 84865730, 4981993, 5155219, 4281282, 3198448 #### [facility] [address] [place] [address] Hematocrit (Bld) [Volume fraction] 39.1 % Normal 34.0-46.0 [facility] Comment on above: Performed By: #### 7 72929227, 25127550, 8005691, 7004616, 5077784, 1156780 #### [facility] [address] [place] [address] Hemoglobin (Bld) [Mass/Vol] 13.1 g/dL Normal 12.0-16.0 [facility] Comment on above: Performed By: #### 7 10831394, 13291314, 1159516, 1863000, 6685622, 4410852 #### [facility] [address] [place] [address] MCH (RBC) [Entitic mass] 30.8 pg Normal 27.0-34.0 [facility] Comment on above: Performed By: #### 7 49742147, 65460529, 8084951, 3219096, 0038123, 8058419 #### [facility] [address] [place] [address] MCHC (RBC) [Mass/Vol] 33.5 g/dL Normal 31.4-36.0 [facility] Comment on above: Performed By: #### 7 47603470, 50385216, 7101104, 6667660, 1322430, 2160984 #### [facility] [address] [place] [address] MCV (RBC) [Entitic vol] 92.0 fL Normal 80.0-100.0 [facility] Comment on above: Performed By: #### 7 81045032, 95421630, 1963998, 4923826, 8036729, 2012414 #### [facility] [address] [place] [address] Platelet mean volume (Bld) [Entitic vol] 9.2 fL Normal 6.4-10.8 [facility] Comment on above: Performed By: #### 7 17948804, 56496574, 0939440, 2316080, 3801894, 7124095 #### [facility] [address] [place] [address] Platelets (Bld) [#/Vol] 205.0 E9/L Normal 150.0-500.0 [facility] Comment on above: Performed By: #### 7 18473029, 41787062, 3730416, 8317793, 1816706, 5040864 #### [facility] [address] [place] [address] RBC (Bld) [#/Vol] 4.2 E12/L Low 4.3-5.9 [facility] Comment on above: Performed By: #### 7 15107423, 62570489, 5204732, 7069330, 7483653, 1527886 #### [facility] [address] [place] [address] WBC corrected for nucl RBC Auto (Bld) [#/Vol] 5.4 E9/L Normal 4.0-11.0 [facility] Comment on above: Performed By: #### 7 85462352, 75753153, 7943642, 2831458, 3064862, 0238796 #### [facility] [address] [place] [address] CHEMISTRYOrdered By: Peace guillaume on 10-01-2023 Albumin [...] clinical context for interpretation. U Prot/Creat Ratio [facility] Invalid Interpretation Code 0.00 - 200.00 [facility] Remisol CHEMISTRYOrdered By: SYSTEM SYSTEM on 10-01-2023 Albumin [Mass/Vol] 3.8 g/dL Normal 3.3 - 5.0 gm/dL F C Remisol Albumin/Globulin [Mass ratio] 1.1 {ratio} Normal [...] rate/Area] 37 mL/min/1.73 m2 Low >=59mL/min/1.73 m2 [facility] Chem S Comment on above: Interpretive Data: C hronic kidney disease could be indicated at eGFR's of less than 60 mL/min/1.73m2. Kidney failure is indicated at less than 15 mL/min/1.73m2. Globulin (S) [Mass/Vol] 3.6 g/dL Normal 1.4 - 4.0 gm/dL [facility] Remisol Glucose [Mass/Vol] 176 mg/dL Normal 55 - 199 mg/dL FT Remisol Comment on above: Interpretive Data: I f this glucose result represents a fasting glucose, interpretation should refer to the following reference range: 55-99 mg/dL Potassium [Moles/Vol] 3.7 mmol/L Normal 3.5 - 5.3 mmol/L FT [facility] Protein [Mass/Vol] 7.4 g/dL Normal 6.0 - 7.8 gm/dL F [facility] Remisol Sodium [Moles/Vol] 140 mmol/L Normal 135 - 145 mmol/L FT [facility] Triglyceride [Mass/Vol] 77 mg/dL Normal <=149mg/dL FT [facility] Urea nitrogen [Mass/Vol] 24 mg/dL High 5 - 21 mg/dL [facility] Urea nitrogen/Creatinin e [Mass ratio] 16 mg/mg Normal 10 - 20 [facility] CHEMISTRYOrdered By: Denisha Carlin on 10-01-2023 HbA1c (Bld) [Mass fraction] 8.2 % High <=5.9% [facility] ChemAutoSS CMPon 10-01-2023 Albumin [Mass/Vol] 3.8 g/dL Normal 3.3-5.0 [facility] Comment on above: Performed By: #### 7 64286059, 31421231, 8841719, 1748053, 8114878, 7594642 ####[facility] [address] [place] [address] Albumin/Globulin (S) [Mass conc ratio] 1.1 Normal 1.1-2.2 [facility] Comment on above: Performed By: #### 7 33606829, 51741163, 4053478, 6909576, 6407420, 2447458 ####[facility] [address] [place] [address] ALP [Catalytic activity/Vol] 61 Int._Unit/L Normal 21-98 [facility] Comment on above: Performed By: #### 7 97062304, 09069944, 4485190, 6254667, 3254438, 6468170 ####[facility] [address] [place] [address] ALT No additional P-5'-P [Catalytic activity/Vol] 26 Int._Unit/L Normal 6-46 [facility] Comment on above: Performed By: #### 7 78118942, 50079269, 0030282, 1523631, 8431101, 8391459 ####[facility] [address] [place] [address] Anion gap [Moles/Vol] 10 mmol/L Normal 6-16 [facility] Comment on above: Performed By: #### 7 60061653, 87616170, 7208615, 1910584, 3335938, 5727745 ####[facility] [address] [place] [address] AST [Catalytic activity/Vol] 31 Int._Unit/L Normal 5-43 [facility] Comment on above: Performed By: #### 7 61107661, 54968368, 9451119, 2920374, 3122438, 9651868 ####[facility] [address] [place] [address] Bilirubin [Mass/Vol] 1.1 mg/dL Normal 0.0-1.1 [facility] Comment on above: Performed By: #### 7 36317428, 63748590, 9449990, 6574431, 5741204, 6223549 ####[facility] [address] [place] [address] Calcium [Mass/Vol] 9.4 mg/dL Normal 8.9-11.1 [facility] Comment on above: Performed By: #### 7 16340534, 63557201, 8330397, 1313055, 8048139, 8829641 ####[facility] [address] [place] [address] Chloride [Moles/Vol] 104 mmol/L Normal 101-111 [facility] Comment on above: Performed By: #### 7 32751501, 67604773, 1031427, 4573517, 2658882, 0675932 ####[facility] [address] [place] [address] CO2 [Moles/Vol] 30 mmol/L Normal 21-31 [facility] Comment on above: Performed By: #### 7 28214135, 76738947, 4274482, 9822738, 7475288, 2424453 ####[facility] [address] [place] [address] Creatinine [Mass/Vol] 1.5 mg/dL High 0.5-1.3 [facility] Comment on above: Performed By: #### 7 15999127, 76066945, 1222185, 3919983, 8913907, 4672720 ####[facility] [address] [place] [address] Globulin (S) [Mass/Vol] 3.6 g/dL Normal 1.4-4.0 [facility] Comment on above: Performed By: #### 7 10332507, 69711910, 0173821, 1825564, 4944917, 5838575 ####[facility] [address] [place] [address] Glucose [Mass/Vol] 176 mg/dL Normal 55-199 [facility] Comment on above: Result Comment: If t his glucose result represents a fasting glucose, interpretation should refer to the following reference range: 55-99 mg/dL Performed By: #### 7 14547604, 74226585, 8623882, 4525415, 8444238, 0743682 ####[facility] [address] [place] [address] Potassium [Moles/Vol] 3.7 mmol/L Normal 3.5-5.3 [facility] Comment on above: Performed By: #### 7 74078620, 51308997, 8756440, 9373302, 0862810, 6779413 ####[facility] [address] [place] [address] Protein [Mass/Vol] 7.4 g/dL Normal 6.0-7.8 [facility] Comment on above: Performed By: #### 7 28914342, 49041731, 7466780, 8847644, 0647591, 8738313 ####[facility] [address] [place] [address] Sodium [Moles/Vol] 140 mmol/L Normal 135-145 [facility] Comment on above: Performed By: #### 7 08238928, 40181475, 3714286, 1393017, 4128683, 4520023 ####[facility] [address] [place] [address] Urea nitrogen [Mass/Vol] 24 mg/dL High 5-21 [facility] Comment on above: Performed By: #### 7 45040205, 00583862, 6431973, 4364658, 4140509, 3612141 ####[facility] [address] [place] [address] Urea nitrogen/Creatinin e [Mass ratio] 16 No Units Normal 10-20 [facility] Comment on above: Performed By: #### 7 70253900, 29550216, 0447362, 9164535, 6038357, 9357140 ####[facility] [address] [place] [address] Consent for Treatmenton 09-03 Consent for Treatment [id number]#1.00TIFF Normal [facility] HEMATOLOGYOrdered By: SYSTEM SYSTEM on [...] 92.0 fL Normal 80.0 - 100.0 fL [facility] HemeAutoSS Platelet mean volume (Bld) [Entitic vol] 9.2 fL Normal 6.4 - 10.8 fL [facility] HemeAutoSS Platelets (Bld) [#/Vol] 205.0 E9/L Normal 150.0 - 500.0 E9/L FT HemeAutoSS RBC (Bld) [#/Vol] 4.2 E12/L Low 4.3 - 5.9 E12/L FT HemeAutoSS WBC corrected for nucl RBC Auto (Bld) [#/Vol] 5.4 E9/L Normal 4.0 - 11.0 E9/L FT HemeAutoSS AcdW7nmm 10-01-2023 HbA1c (Bld) [Mass fraction] 8.2 % High <=5.9 [facility] Comment on above: Performed By: #### 7 08608515, 74269129, 4644367, 8472038, 1760799, 0884180 ####[facility] [address] [place] [address] Lipid Panelon 10-01-2023 Cholesterol [Mass/Vol] 127 mg/dL Normal 120-200 [facility] Comment on above: Performed By: #### 7 10494181, 67679038, 9496041, 9097007, 2320341, 5392528 ####[facility] [address] [place] [address] Cholesterol in HDL [Mass/Vol] 58 mg/dL Invalid Interpretation Code [facility] Comment on above: Result Comment: HDL > or equal to 60 mg/dL: Low cardiovascular risk HDL < 40 mg/dL : High cardiovascular risk Performed By: #### 7 41866024, 87034171, 7936331, 2424775, 3541764, 4489533 ####[facility] [address] [place] [address] Cholesterol in LDL [Mass/Vol] 58 mg/dL Normal <=129 [facility] Comment on above: Performed By: #### 7 88737829, 21556556, 9731067, 3181371, 1087473, 7260898 ####[facility] [address] [place] [address] Cholesterol in VLDL [Mass/Vol] 15 mg/dL Normal 7-40 [facility] Comment on above: Performed By: #### 7 70567074, 11675543, 3506049, 9422634, 4953770, 5684643 ####[facility] [address] [place] [address] Triglyceride [Mass/Vol] 77 mg/dL Normal <=149 [facility] Comment on above: Performed By: #### 7 [id number], [id number], [id number], [id number], [id number], [id number] ####[facility] [address] [place] [address] Retail - Clinical Noteon Retail - Clinical Note [id number] 4633#1.00TIFF Normal [facility] U Microalbon 10-01-2023 Albumin DL <= 20 mg/L (U) [Mass/Vol] 9.9 microgram/mL Normal 0.0-19.0 [facility] Comment on above: Performed By: #### 1 [id number], [id number] #### [facility] [address] [place] [address] U Protein/Creat Ratioon 09-03 Albumin Elph (U) [Mass fraction] <6.0 Invalid Interpretation Code [facility] Comment on above: Result Comment: The reference range and other method performance specifications have not been established for this test; results should be integrated into the clinical context for interpretation. Performed By: #### 1 [id number], [id number] #### [facility] [address] [place] [address] Creatinine (U) [Mass/Vol] 28.4 mg/dL Invalid Interpretation Code [facility] Comment on above: Result Comment: The reference range and other method performance specifications have not been established for this test; results should be integrated into the clinical context for interpretation. Performed By: #### 1 [id number], [id number] #### [facility] [address] [place] [address] U Prot/Creat Ratio [facility] Invalid Interpretation Code .00-200.00 [facility] Comment on above: Performed By: #### 1 [id number], [id number] #### [facility] [address] [place] [address] eGFRon 10-01-2023 GFR/1.73 sq M.predicted among non-blacks MDRD (S/P/Bld) [Vol rate/Area] 37 mL/min/1.73 m2 Low >=59 [facility] Comment on above: Order Comment: Order added by Discern Expert. Result Comment: Alberene Stone Setter maco kidney disease could be indicated at eGFR's of less than 60 mL/min/1.73m2. Kidney failure is indicated at less than 15 mL/min/1.73m2. Performed By: #### 7 [id number], [id number], [id number], [id number], [id number], [id number] ####[facility] [address] [place] [address] Interdisciplinary Note - Soc ial Workeron 09-23-2023 Interdisciplinary Note - Manager Printing Consult received d/t pt's dx of DM. Patient requires bariatric equipment. Upon review of chart notes, patient resides at [facility]. Patient has been evaluated by [facility] mobility for an appropriate wheelchair. If further needs, or DME are required conversation with staff at [facility] should be had for appropriate planning and continuity of care. SW will remain available. Normal [facility] Retail - Clinical Noteon Retail - Clinical Note [id number] 3082#1.00TIFF Normal [facility] Consultation Noteon 09-18-20 Consultation Note [id number]#1.00TIFF Normal [facility] Family Medicine Office/Clini c Noteon 09-17-2023 Family Medicine Office/Clinic Note HPI Staff Malcom is a 67 year old female presenting to establish care [facility] Needs a face to face for [...] was in an assisted living facility in [place] where she received intensive physical therapy. However, [...] to 6500 g a month and other ogxa-ewh-aylswwd medications. However, the daughter states that this [...] as before. 4. Insulin long-term use (Z79.4: supervisor intermediates (current) use of insulin) Discussed the need of having the patient increase the medication, but we will have Dr. Zhu adjust the medication. 5. BMI 50.0-59.9, adult (Z68.43: Body mass index [BMI] 50.0-59.9, adult) 6. Morbid obesi (more content not included)... Normal [facility] Comment on above: Result Comment: Elec tronically Signed By: Jose Snow MD\.br\Date and Time Signed: 09/17/23 07:26 EDT\.br\Electronically Co-Signed By: Romana Crouch\.br\Date and Time Co-Signed: 09/09/23 18:25 EDT Retirement Recordson 09-11 Retirement Records [id number]#1.00TIFF [facility] Ambulatory Visit Summaryon 1 Ambulatory Visit Summary MALCOM KNOWLES :1955 Visit Date:09/09/2023 Ambulatory Visit Instructions Your Diagnosis Type 2 diabetes mellitus with chronic kidney disease Type 2 diabetes mellitus with hypercholesterolem ia Benign hypertension with chronic kidney disease Insulin long-term use BMI 50.0-59.9, adult Morbid obesity Major depression in full remission CKD (chronic kidney disease) stage 3, GFR 30-59 ml/min Hx of Guillain-Parkton syndrome Gait disorder History of Uterine cancer [...] BRIGIDA WILLOUGHBY PA-C Where: [facility] [place] Invalid Interpretation Code Type 2 diabetes mellitus with hypercholesterolemia [facility] Pre-Visit Planningon 023 Pre-Visit Planning --- From: Clifton DE LOS SANTOS, Luann To: Kaushal JUDGE, Jose Lau; Sent: 09/06/2023 10:38:47 EDT Subject: Pre-Visit Planning Due Date/Time: 09/06/2023 10:38:00 EDT Caller Name: MALCOM KNOWLES; Caller Number: Shawn , Fl Dr. Snow, *Based on your response below, [...] feel free to contact me at extension [phone]. Thank you! Luann Lazo, DENYS, RN, CCM, CCDS, CCDS-O Invalid Interpretation Code [address] [facility] Pre-Visit Planning --- From: Clifton DE LOS SANTOS, Luann To: Kaushal JUDGE, Jose Lau; Sent: 09/06/2023 10:30:41 EDT Subject: Pre-Visit Planning Due Date/Time: 09/06/2023 10:30:00 EDT Caller Name: MALCOM KNOWLES; Caller Number: Shawn , M Fl Dr. Snow, *Based on your response below, can you please update the chronic problem list and address during this visit if appropriate?* During a pre-visit planning chart review, I noted the following documentation in the medical record indicates that this patient had a BMI of 52.32 on 07/15/2023. The National [place] defines obesity as morbid if [...] feel free to contact me at extension [phone]. Thank you! Luann Lazo, DENYS, RN, CCM, CCDS, CCDS-O Invalid Interpretation Code [address] [facility] Home Recordson 09-04 Retirement Records [id number] 68CC#1.00CD:127 Normal [facility] Home Recordson 09-03 Retirement Records [id number]#1.00CD:127 Normal [facility] Retirement Recordson 09-02 Retirement Records [id number]#1.00CD:127 Normal [facility] Family Medicine Office/Clini c Noteon [...] basaglar to 12 untis. will refer to warp bleaching vat tender. daughter will call with where she wants [...] and treat better fitting wheel chair, Supply [facility] External Ambulatory Referral 2. BMI 50.0-59.9, adult (Z68.43: Body mass index [BMI] 50.0-59.9, adult) BMI education complete Ordered: [facility] External Ambulatory Referral 3. Non-smoker (Z78.9: Other specified health status) continue not smoking Ordered: [facility] External Ambulatory Referral supervisor intermediates (current) use of insulin (Z79.4: USP (current) use of insulin) referral to warp bleaching vat tender will be sent Ordered: [facility] External Ambulatory Referral Follow-up No [...] Immunizations Vaccine Date Status Comments SARS-CoV-2 (COVID-19) mRNAMUL.ORD![id number] 09/13/2022 R (more content not included)... Normal [facility] Comment on above: Result Comment: Elec tronically Signed By: Mariangel Peña\.br\Date and Time Signed: 08/23/23 09:36 EDT Retirement Recordson 08-21 Retirement Records [id number] A06#1.00CD:127 [facility] Retirement Recordson 08-20 Retirement Records [id number]#1.00CD:127 [facility] Retirement Recordson 08-15 Retirement Records [id number] E33E#1.00CD:127 [facility] Retail - Clinical Noteon Retail - Clinical Note [id number]#1.00CD:127 [facility] Urine Cultureon 07-28-2023 Bacteria identified Cx Nom (U) <9,000 colonies/ml mixed bacterial skin contaminants 2 Days PERFORMED BY: [facility] JOCELYN MERCADO [id number] PATHOLOGIST BREADING MACHINE TENDER SUZY FLORES M.D. [facility] Comment on above: Performed By: #### C UU #### [facility] [address] [id number] [facility] Physician Referralon 023 Physician Referral [id number]#1.00CD:127 [facility] Retirement Recordson 07-23 Retirement Records [id number]#1.00CD:127 [facility] Retirement Recordson 07-18 Retirement Records [id number] E789#1.00CD:127 [facility] Retirement Records [id number]#1.00CD:127 [facility] Retail - Clinical Noteon Retail - Clinical Note [id number]#1.00CD:127 [facility] Retirement Recordson 07-16 Retirement Records [id number]#1.00CD:127 [facility] Physician Referralon 023 Physician Referral [id number]#1.00CD:127 [facility] Retail - Clinical Noteon Retail - Clinical Note [id number]#1.00CD:127 [facility] Ambulatory Visit Summaryon 0 07-15-2023 Ambulatory Visit Summary MARJNETO CHESTERRICIA :1955 Visit Date:07/15/2023 Ambulatory Visit Instructions Your Diagnosis Insulin dependent type 2 diabetes mellitus BMI 50.0-59.9, adult Non-smoker supervisor intermediates (current) use of insulin Your Care Team [...] PM EDT With: Jose Snow MD Where: [facility] [address] [place] [address]- \.br\ Medications\.br\ What How Much When Why Instructions\.br\ New Misc Prescription (Freestyle Bang 2 sensors) See instructions Insulin dependent type 2 diabetes mellitus Refills: 4 One box of sensors Printed Prescription\.br\ New Misc Prescription (Freestyle Bang 2 system) See instructions Insulin dependent type 2 diabetes mellitus pt to check BS 4 times per day Printed Prescription\.br\ [facility] Prescription (OT EVALUATION) See instructions Insulin dependent [...] Unchanged memantine (memantine 10 mg Tab)\.br\ Unchanged [facility] Prescription ([facility] DME Prescription) See instructions BD ultra fine [...] mellitus\.br\ Obesity\.br\ UTI (urinary tract infection)\.br\ \.br\ [facility] Patient Correspondenceon Patient Correspondence [id number]#1.00CD:127 Normal [facility] XR shoulder LT min 2V*on XR shoulder LT min 2V* [facility] Main [place] [address] [place] [address] XRay Report Signed Patient: Malcom Knowles MR#: [id number] : 1955 Acct:[id number] Age/Sex: 67 / F ADM Date: 07/01/23 Loc: [facility] Room: Type: [facility] Attending Dr: Lizandro Martins MD Copies to: [...] Aj Baker M.D.07/01/2023 2:36 PM Dictation Location: [place] [address] Transcribed By: [facility] 07/01/23 143 Dictated By: Aj Baker II, MD 07/01/23 1434 Signed By: 07/01/23 143 [facility] XR shoulder LT min 2V* [facility] [place] Other XR shoulder LT min 2V* [facility] Main [place] Other XR shoulder LT min 2V* [address] [facility] Other XR shoulder LT min 2V* [place] [address] [facility] Other XR shoulder LT min 2V* XRay Report [facility] Other XR shoulder LT min 2V* Signed [facility] Other XR shoulder LT min 2V* Patient: Malcom Knowles MR#: [id number] [facility] Other XR shoulder LT min 2V* [id number] [facility] Other XR shoulder LT min 2V* : 1955 Acct:[id number] [facility] Other XR shoulder LT min 2V* Age/Sex: 67 / F ADM Date: 07/01/23 [facility] Other XR shoulder LT min 2V* Loc: [facility] Room: Type: [facility] Other XR shoulder LT min 2V* Attending Dr: Lizandro Martins MD [facility] Other XR shoulder LT min 2V* Copies to: Lizandro Martins MD [facility] Other XR shoulder LT min 2V* Ordering Provider: Lizandro Martins MD [facility] Other XR shoulder LT min 2V* Date of Service: 07/01/23 [facility] Other XR shoulder LT min 2V* XR/XR shoulder LT min 2V*: Acute pain of left shoulder [facility] Other XR shoulder LT min 2V* XR shoulder LT min 2V* 07/01/2023 11:10 AM [facility] Other XR shoulder LT min 2V* SIGNS AND SYMPTOMS: Left shoulder pain with decreased range of motion [facility] Other XR shoulder LT min 2V* PROTOCOL: Frontal, Grashey, scapular Y views of the left shoulder [facility] Other XR shoulder LT min 2V* COMPARISON: None [facility] Other XR shoulder LT min 2V* FINDINGS: [facility] Other XR shoulder LT min 2V* There is mild hypertrophy of the acromioclavicular joint. There is narrowing of the glenohumeral [facility] Other XR shoulder LT min 2V* joint. There is no fracture or dislocation. The visualized left hemithorax is grossly intact. [facility] Other XR shoulder LT min 2V* XR/XR shoulder LT min 2V* [facility] Other XR shoulder LT min 2V* IMPRESSION: [facility] Other XR shoulder LT min 2V* No fracture or dislocation. [facility] Other XR shoulder LT min 2V* Degenerative changes are noted in the left shoulder, as above. [facility] Other XR shoulder LT min 2V* Impression dictated by: Aj Baker M.D.07/01/2023 2:36 PM [facility] Other XR shoulder LT min 2V* Dictation Location: [facility] Other XR shoulder LT min 2V* Transcribed By: FLORES 07/01/23 [facility] Other XR shoulder LT min 2V* Dictated By: Aj Baker II, MD 07/01/23 1434 [facility] Other XR shoulder LT min 2V* Signed By: [facility] Other XR shoulder LT min 2V* 07/01/23 1436 [facility] Other Retirement Recordson 05-23 Retirement Records [id number]#1.00CD:127 [facility] Retirement Recordson 05-22 Retirement Records [id number]#1.00CD:127 [facility] Comment on above: Other Comment: PRINT ED FOR PROVIDER SIGNATURE.NDW C Urineon 05-18-2023 Bacteria identified Cx Nom (U) Microbiology PROCEDURE: Urine Culture [R1] SOURCE: U CleanCatch BODY SITE: COLLECTED DATE/TIME: 05/16/2023 15:19 EDT RECEIVED DATE/TIME: 05/16/2023 17:37 EDT START DATE/TIME: 05/16/2023 17:38 EDT FREE TEXT SOURCE: Adrian GREEN MARKETING SPECIALIST, Mariangel L Adrian GREEN MARKETING SPECIALIST, Mariangel L FINAL REPORTS Final Report [] Verified Date/Time: 05/18/2023 08:48 EDT 5,000 cfu/ml Mixed skin contaminants Performing Locations R1: This test was performed at: [facility], [address] [place] [address], [facility] , , [facility] Comment on above: Performed By: #### 2 [id number] ####[facility] [address] [place] [address] Retirement Recordson 05-17 Retirement Records [id number] 115#1.00CD:127 [facility] Ambulatory Visit Summaryon 0 05-16-2023 Ambulatory [...] infection) Duration: [address] [facility] [place] Unchanged fluconazole (Diflucan 150 mg Tab) 1 Tablets By Mouth Once UTI (urinary tract infection) Unchanged Misc Prescription (Misc DME Prescription) See instructions BD ultra fine pen needles 31G X 3/ 16. Use to inject insulin as directed. Dx E10.[address] [facility] [place]: [address] [place] [address] [phone] Allergies sulfa drugs (Unknown) Problems Ongoing - Any problem that you are currently receiving treatment for. UTI (urinary tract infection) Normal [facility] Family Medicine Office/Clini c Noteon 05-16-2023 Family Medicine Office/Clinic Note Chief Complaint pt here to establish care, UTI symptoms HPI Staff Malcom is a 67 year old female presenting to Establish care Establish Care: History: Any previous diagnosis: Diabetes, HTN, Frequent falls, gerd, depression, syncope History of seeing any specialist: Dr Loredo Neurologist in [place], Dr Alegria , Cardiolgoy , Urolgosit When [...] She lives in an assisted living at [facility]. They dipped her urine. see results above. [...] day(s), # 14 tab(s), Refills(s) 0, Pharmacy: [facility] [place], 158, cm, 05/16/23 14:43:00 EDT, Height/Length [...] Immunizations Vaccine Date Status Comments SARS-CoV-2 (COVID-19) mRNAMUL.ORD![id number] 09/13/2022 Recorded SARS-CoV-2 (COVID-19) mRNA-1273 vaccine 01/13/2022 Recorded 2023-05-16: [id number] SARS-CoV-2 (COVID-19) mRNA-1273 vaccine 08/09/2021 Recorded SARS-CoV-2 (COVID-19) mRNA-1273 vaccine 07/12/2021 Recorded pneumococcal 13-valent vaccine 10/18/2016 Recorded Normal [facility] Comment on above: Result Comment: Elec tronically Signed By: Mariangel Peña\.br\Date and Time Signed: 05/16/23 15:28 EDT ECHOCARDIO M/2D COMPLETEon 0 05-01-2023 ECHOCARDIO M/2D COMPLETE Patient: MALCOM KNWOLES Exam Date: 05/01/2023 : 1955 Gender:F Ordering : DR. AJ YOUNG M.D. Admission #: [id number] Family : Order #: [id number] CLICK HERE TO VIEW EXAM ECHOCARDIOGRAM REPORT [...] on 05/01/2023 at 18:[address] [facility] Lab Reportson 04-24-2023 Lab Reports [id number] [facility]#1.00CD:127 Normal [facility] Lab Reportson 04-17-2023 Lab Reports [id number] [facility]#1.00CD:127 Normal [facility] Office Visit (Cardiology)on 04-04-2023 Follow-up [...] Weight Tips; Status:Complete - Retrospective Authorization; Done: [id number] Some eating tips that can help you lose weight.; Status:Complete - Retrospective Authorization; Done: [id number] SocHx: Never a smoker Tobacco Use Screening; Status:Complete; Done: [id number] Patient Instructions Please bring all medicines, vitamins, [...] 12:01:30 PM (more content not included)... Normal Managed Methods Tobacco Screening.on 023 Adult depression screening assessment No [facility] Care2Manage DO Work Phone: Fall risk assessment b) One or more falls in the last year [facility] Work Phone: Tobacco use status CPHS b) No [facility] [employer] 600 DO Work Phone: CT CSPINE WO CONon 3 CT CSPINE [...] THONY JOHNSTON Date: 2023-01-24 19:08 Normal [facility] CT HEAD WO CONon 01-24-2023 CT [...] FLORIN ZHONG Date: 2023-01-24 18:51 Normal [facility] XR SHOULDER LT 2V or >on XR SHOULDER LT 2V or > EXAM: XR SHOULDER LT 2V or > HISTORY: Unspecified fall COMPARISON: Shoulder x-rays 08/27/2022 TECHNIQUE: 3 views FINDINGS: IMPRESSION: No visualized fracture, dislocation, subluxation or osseous lesion. Moderate degenerative changes of the acromial clinically joint. Electronically authenticated by: NIALL CELIS Date: 2023-01-24 18:58 Normal [facility] MRI BRAIN WO CONon MRI BRAIN [...] by: ADAMS RAGSDALE Date: 2023-01-18 15:[address] [facility] US CAROTID ART BILon 023 [...] ADAMS RAGSDALE Date: 2023-01-18 14:45 Normal [facility] CBC AUTO DIFFon 12-26-2022 BASO # 0.1 103/ul Normal 0.0-0.[address] [facility] Comment on above: Performed By: #### A CET, CMP #### [facility] [address] [place] [address] Dr. Gilberto Ocampo Basophils/100 WBC (Bld) 0.8 % Normal 0.2-2.0 [facility] Comment on above: Performed By: #### A CET, CMP #### [facility] [address] [place] [address] Dr. Gilberto Ocampo EO # 0.6 103/ul Normal 0.0-0.[address] [facility] Comment on above: Performed By: #### A CET, CMP #### [facility] [address] [place] [address] Dr. Gilberto Ocampo Eosinophils/100 WBC (Bld) 7.7 % Critically high 0.9-7.[address] [facility] Comment on above: Performed By: #### A CET, CMP #### [facility] [address] [place] [address] Dr. Gilberto Ocampo Erythrocyte distribution width (RBC) [Ratio] 14.0 % Normal 11.0-15.[address] [facility] Comment on above: Performed By: #### A CET, CMP #### [facility] [address] [place] [address] Dr. Gilberto Ocampo Hematocrit (Bld) [Volume fraction] 39.0 % Normal 36.0-48.0 [facility] Comment on above: Performed By: #### A CET, CMP #### [facility] [address] [place] [address] Dr. Gilberto Ocampo Hemoglobin (Bld) [Mass/Vol] 11.8 g/dL Critically low 12.0-16.0 [facility] Comment on above: Performed By: #### A CET, CMP #### [facility] [address] [place] [address] Dr. Gilberto Ocampo IG # 0.02 10e3/ul Normal 0.00-0.03 [facility] Comment on above: Performed By: #### A CET, CMP #### [facility] [address] [place] [address] Dr. Gilberto Ocampo IG % 0.3 % Normal 0.0-0.5 [facility] Comment on above: Performed By: #### A CET, CMP #### [facility] [address] [place] [address] Dr. Gilberto Ocampo LYMPH # 2.1 103/ul Normal 1.2-3.8 [facility] Comment on above: Performed By: #### A CET, CMP #### [facility] [address] [place] [address] Dr. Gilberto Ocampo Lymphocytes/100 WBC (Bld) 29.2 % Normal 20.5-60.[address] [facility] Comment on above: Performed By: #### A CET, CMP #### [facility] [address] [place] [address] Dr. Gilberto Ocampo MANUAL DIFF REQ NO Normal [facility] Comment on above: Performed By: #### A CET, CMP #### [facility] [address] [place] [address] Dr. Gilberto Ocampo MCH (RBC) [Entitic mass] 29.2 pg Normal 26.7-34.0 [facility] Comment on above: Performed By: #### A CET, CMP #### [facility] [address] [place] [address] Dr. Gilberto Ocampo MCHC (RBC) [Mass/Vol] 30.3 g/dL Normal 29.9-35.2 [facility] Comment on above: Performed By: #### A CET, CMP #### [facility] [address] [place] [address] Dr. Gilberto Ocampo MCV (RBC) [Entitic vol] 96.5 fL Normal 81.0-99.[address] [facility] Comment on above: Performed By: #### A CET, CMP #### [facility] [address] [place] [address] Dr. Gilberto Ocampo MONO # 0.6 103/ul Normal 0.3-0.8 [facility] Comment on above: Performed By: #### A CET, CMP #### [facility] [address] [place] [address] Dr. Gilberto Ocampo Monocytes/100 WBC (Bld) 9.0 % Normal 1.7-12.0 [facility] Comment on above: Performed By: #### A CET, CMP #### [facility] [address] [place] [address] Dr. Gilberto Ocampo NEUT # 3.8 103/ul Normal 1.4-6.5 [facility] Comment on above: Performed By: #### A CET, CMP #### [facility] [address] [place] [address] Dr. Gilberto Ocampo Neutrophils/100 WBC (Bld) 53.0 % Normal 43.0-75.0 [facility] Comment on above: Performed By: #### A CET, CMP #### [facility] [address] [address] [address] Gilberto Ocampo Platelet mean volume (Bld) [Entitic vol] 11.9 fL Normal 9.5-13.[address] [facility] Comment on above: Performed By: #### A CET, CMP #### [facility] Laboratory [address] [address] [address] Gilberto Ocampo PLT 209 103/ul Normal 150-450 [facility] Comment on above: Performed By: #### A CET, CMP #### [facility] [address] [address] [address] Gilberto Ocampo RBC 4.04 106/ul Critically low 4.20-5.40 [facility] Comment on above: Performed By: #### A CET, CMP #### [facility] [address] [place] [address] Dr. Gilberto Ocampo WBC 7.1 103/ul Normal 4.0-11.[address] [facility] Comment on above: Performed By: #### A CET, CMP #### [facility] [address] [place] [address] Dr. Gilberto Ocampo GLYCOHEMOGLOBIN A1Con 2022 ADA RECOMMENDATION SEE BELOW Normal [facility] Comment on above: Result Comment: ADA RECOMMENDED LIMIT 4.0 - 6.0 ADA THERAPEUTIC TARGET < 7.0 ACTION SUGGESTED > 7.0 Performed By: #### A 1C #### [facility] [address] [place] [address] Dr. Gilberto Ocampo Glucose [Mass/Vol] 189 mg/dL Normal [facility] Comment on above: Performed By: #### A 1C #### [facility] [address] [place] [address] Dr. Gilberto Ocampo HbA1c (Bld) [Mass fraction] 8.2 % Critically high 4.5-6.[address] [facility] Comment on above: Performed By: #### A 1C #### [facility] [address] [place] [address] Dr. Gilberto Ocampo PROF 14(COMP METB)on 023 Albumin [Mass/Vol] 3.0 g/dL Critically low 3.4-5.0 [facility] Comment on above: Performed By: #### C MP #### [facility] [address] [place] [address] Dr. Gilberto Ocampo Albumin/Globulin [Mass ratio] 0.8 {ratio} Normal [facility] Comment on above: Performed By: #### C MP #### [facility] [address] [address] [address] Gilberto Ocampo ALP [Catalytic activity/Vol] 89 U/L Normal 46-[address] [facility] Comment on above: Performed By: #### C MP #### [facility] [address] [place] [address] Dr. Gilberto Ocampo ALT [Catalytic activity/Vol] 22 U/L Normal 14-[address] [facility] Comment on above: Performed By: #### C MP #### [facility] [address] [place] [address] Dr. Gilberto Ocampo Anion gap [Moles/Vol] 12.4 mmol/L Normal [facility] Comment on above: Performed By: #### C MP #### [facility] [address] [place] [address] Dr. Gilberto Ocampo AST [Catalytic activity/Vol] 19 U/L Normal 15-[address] [facility] Comment on above: Performed By: #### C MP #### [facility] [address] [place] [address] Dr. Gilberto Ocampo Bilirubin [Mass/Vol] 0.6 mg/dL Normal 0.2-1.[address] [facility] Comment on above: Performed By: #### C MP #### [facility] [address] [place] [address] Dr. Gilberto Ocampo Calcium [Mass/Vol] 8.9 mg/dL Normal 8.5-10.1 [facility] Comment on above: Performed By: #### C MP #### [facility] [address] [place] [address] Dr. Gilberto Ocampo Chloride [Moles/Vol] 103 mmol/L Normal 98-[address] [facility] Comment on above: Performed By: #### C MP #### [facility] [address] [address] [address] Gilberto Ocampo CO2 [Moles/Vol] 28.5 mmol/L Normal 21.0-32.0 [facility] Comment on above: Performed By: #### C MP #### [facility] [address] [address] [address] Gilberto Ocampo Creatinine [Mass/Vol] 1.52 mg/dL Critically high 0.55-1.[address] [facility] Comment on above: Performed By: #### C MP #### [facility] [address] [address] [address] Gilberto Ocampo EGFR-AF SWEDISH 41 mL/min/1.73m2 Critically low >=[address] [facility] Comment on above: Performed By: #### C MP #### [facility] [address] [address] [address] Gilberto Ocampo EGFR-NON AF SWEDISH 34 mL/min/1.73m2 Critically low >=[address] [facility] Comment on above: Performed By: #### C MP #### [facility] [address] [address] [address] Gilberto Ocampo Globulin (S) [Mass/Vol] 3.8 g/dL Normal [facility] Comment on above: Performed By: #### C MP #### [facility] [address] [address] [address] Gilberto Ocampo Glucose [Mass/Vol] 206 mg/dL Critically high 74-106 [facility] Comment on above: Performed By: #### C MP #### [facility] [address] [address] [address] Gilberto Ocampo Potassium [Moles/Vol] 3.9 mmol/L Normal 3.5-5.[address] [facility] Comment on above: Performed By: #### C MP #### [facility] [address] [address] [address] Gilberto Ocampo Protein [Mass/Vol] 6.8 g/dL Normal 6.4-8.2 [facility] Comment on above: Performed By: #### C MP #### [facility] [address] [address] [address] Gilberto Ocampo Sodium [Moles/Vol] 140 mmol/L Normal 136-145 [facility] Comment on above: Performed By: #### C MP #### [facility] [address] [place] [address] Dr. Gilberto Ocampo Urea nitrogen [Mass/Vol] 16.0 mg/dL Normal 7.0-18.[address] [facility] Comment on above: Performed By: #### C MP #### [facility] [address] [place] [address] Dr. Gilberto Ocampo Urea nitrogen/Creatinin e [Mass ratio] 10.5 mg/mg Normal [facility] Comment on above: Performed By: #### C MP #### [facility] [address] [place] [address] Dr. Gilberto Ocampo CULTURE URINEon 12-17-2022 CULTURE URINE Culture Observations: NO GROWTH. Normal [facility] Comment on above: Performed By: #### A CET, CMP #### [facility] [address] [place] [address] Dr. Gilberto Ocampo UA RANDOMon 12-17-2022 Bilirubin Ql (U) Negative Normal NEGATIVE [facility] Comment on above: Performed By: #### A CET, CMP #### [facility] [address] [place] [address] Dr. Gilberto Ocampo Clarity (U) CLEAR Normal CLEAR [facility] Comment on above: Performed By: #### A CET, CMP #### [facility] [address] [place] [address] Dr. Gilberto Ocampo Color (U) YELLOW Normal YELLOW [facility] Comment on above: Performed By: #### A CET, CMP #### [facility] [address] [place] [address] Dr. Gilberto Ocampo Glucose Ql (U) 250 mg/dl Abnormal NEGATIVE [facility] Comment on above: Performed By: #### A CET, CMP #### [facility] [address] [place] [address] Dr. Gilberto Ocampo Hemoglobin Ql (U) TRACE-INTACT Abnormal NEGATIVE [facility] Comment on above: Performed By: #### A CET, CMP #### [facility] [address] [place] [address] Dr. Gilberto Ocampo Ketones Ql (U) TRACE Abnormal NEGATIVE [facility] Comment on above: Performed By: #### A CET, CMP #### [facility] [address] [place] [address] Dr. Gilberto Ocampo LEUKOCYTES Negative Normal NEGATIVE [facility] Comment on above: Performed By: #### A CET, CMP #### [facility] [address] [place] [address] Dr. Gilberto Ocampo Nitrite Ql (U) Negative Normal NEGATIVE [facility] Comment on above: Performed By: #### A CET, CMP #### [facility] [address] [place] [address] Dr. Gilberto Ocampo pH (U) 5.0 [pH] Normal 5-[address] [facility] Comment on above: Performed By: #### A CET, CMP #### [facility] [address] [place] [address] Dr. Gilberto Ocampo SPEC GRAVITY >=1.030 Abnormal 1.005-<=1.025 [facility] Comment on above: Performed By: #### A CET, CMP #### [facility] [address] [place] [address] Dr. Gilberto Ocampo UA PROTEIN TRACE Normal NEGATIVE/ TRACE [facility] Comment on above: Performed By: #### A CET, CMP #### [facility] [address] [place] [address] Dr. Gilberto Ocampo Urobilinogen Qn (U) 0.2 {Torres'U}/dL Normal 0.2 - 1.[address] [facility] Comment on above: Performed By: #### A CET, CMP #### [facility] [address] [place] [address] Dr. Gilberto Ocampo XR HUMERUS RT MIN 2 Von 12-1 XR HUMERUS RT MIN 2 V EXAM: [...] THONY CLARK Date: 2022-11-17 02:30 Normal [facility] XR SHOULDER RT 2V or >on [...] THONY CLARK Date: 2022-11-17 03:30 Normal [facility] CULTURE URINEon 11-12-2022 CULTURE URINE Isolate [...] Trimethoprim/Sulfa methoxazole <=20 S F Normal [facility] Comment on above: Performed By: #### A [facility], [facility] #### [facility] [address] [place] [address] Dr. Gilberto Ocampo CULTURE URINEon 11-11-2022 CULTURE [...] Trimethoprim/Sulfa methoxazole <=20 S F Normal [facility] Comment on above: Performed By: #### A CET, CMP #### [facility] [address] [place] [address] Dr. Gilberto Ocampo ACETAMINOPHENon 11-09-2022 Acetaminophen [Mass/Vol] ug/mL Critically low 10.0-30.[address] [facility] Comment on above: Performed By: #### A CET, CMP #### [facility] [address] [place] [address] Dr. Gilberto Ocampo CBC AUTO DIFFon 11-09-2022 BASO # 0.0 103/ul Normal 0.0-0.[address] [facility] Comment on above: Performed By: #### C BC #### [facility] [address] [place] [address] Dr. Gilberto Ocampo Basophils/100 WBC (Bld) 0.5 % Normal 0.2-2.[address] [facility] Comment on above: Performed By: #### C BC #### [facility] [address] [place] [address] Dr. Gilberto Ocampo EO # 0.4 103/ul Normal 0.0-0.7 [facility] Comment on above: Performed By: #### C BC #### [facility] [address] [place] [address] Dr. Gilberto Ocampo Eosinophils/100 WBC (Bld) 6.4 % Normal 0.9-7.[address] [facility] Comment on above: Performed By: #### C BC #### [facility] [address] [place] [address] Dr. Gilberto Ocampo Erythrocyte distribution width (RBC) [Ratio] 13.7 % Normal 11.0-15.[address] [facility] Comment on above: Performed By: #### C BC #### [facility] [address] [address] [address] Gilberto Ocampo Hematocrit (Bld) [Volume fraction] 38.1 % Normal 36.0-48.[address] [facility] Comment on above: Performed By: #### C BC #### [facility] [address] [place] [address] Dr. Gilberto Ocampo Hemoglobin (Bld) [Mass/Vol] 12.2 g/dL Normal 12.0-16.[address] [facility] Comment on above: Performed By: #### C BC #### [facility] [address] [place] [address] Dr. Gilberto Ocampo IG # 0.02 10e3/ul Normal 0.00-0.[address] [facility] Comment on above: Performed By: #### C BC #### [facility] [address] [place] [address] Dr. Gilberto Ocampo IG % 0.3 % Normal 0.0-0.[address] [facility] Comment on above: Performed By: #### C BC #### [facility] [address] [place] [address] Dr. Gilberto Ocampo LYMPH # 2.1 103/ul Normal 1.2-3.[address] [facility] Comment on above: Performed By: #### C BC #### [facility] [address] [place] [address] Dr. Gilberto Ocampo Lymphocytes/100 WBC (Bld) 33.1 % Normal 20.5-60.[address] [facility] Comment on above: Performed By: #### C BC #### [facility] [address] [place] [address] Dr. Gilberto Ocampo MANUAL DIFF REQ NO Normal [facility] Comment on above: Performed By: #### C BC #### [facility] [address] [place] [address] Dr. Gilberto Ocampo MCH (RBC) [Entitic mass] 29.6 pg Normal 26.7-34.[address] [facility] Comment on above: Performed By: #### C BC #### [facility] [address] [address] [address] Gilberto Ocampo MCHC (RBC) [Mass/Vol] 32.0 g/dL Normal 29.9-35.2 [facility] Comment on above: Performed By: #### C BC #### [facility] [address] [address] [address] Gilberto Ocampo MCV (RBC) [Entitic vol] 92.5 fL Normal 81.0-99.[address] [facility] Comment on above: Performed By: #### C BC #### [facility] [address] [place] [address] Dr. Gilberto Ocampo MONO # 0.7 103/ul Normal 0.3-0.8 [facility] Comment on above: Performed By: #### C BC #### [facility] [address] [place] [address] Dr. Gilberto Ocampo Monocytes/100 WBC (Bld) 11.6 % Normal 1.7-12.[address] [facility] Comment on above: Performed By: #### C BC #### [facility] [address] [place] [address] Dr. Gilberto Ocampo NEUT # 3.0 103/ul Normal 1.4-6.[address] [facility] Comment on above: Performed By: #### C BC #### [facility] [address] [place] [address] Dr. Gilberto Ocampo Neutrophils/100 WBC (Bld) 48.1 % Normal 43.0-75.0 [facility] Comment on above: Performed By: #### C BC #### [facility] [address] [place] [address] Dr. Gilberto Ocampo Platelet mean volume (Bld) [Entitic vol] 10.8 fL Normal 9.5-13.5 [facility] Comment on above: Performed By: #### C BC #### [facility] [address] [place] [address] Dr. Gilberto Ocampo PLT 212 103/ul Normal 150-450 [facility] Comment on above: Performed By: #### C BC #### [facility] [address] [place] [address] Dr. Gilberto Ocampo RBC 4.12 106/ul Critically low 4.20-5.40 [facility] Comment on above: Performed By: #### C BC #### [facility] [address] [place] [address] Dr. Gilberto Ocampo WBC 6.3 103/ul Normal 4.0-11.[address] [facility] Comment on above: Performed By: #### C BC #### [facility] [address] [place] [address] Dr. Gilberto Ocampo DRUG SCREEN RAPID (URINE)on 11-09-2022 AMP Negative Normal NEGATIVE [facility] Comment on above: Performed By: #### U ACSIND, UMICRO #### [facility] [address] [place] [address] Dr. Gilberto Ocampo BAR Negative Normal NEGATIVE [facility] Comment on above: Performed By: #### U ACSIND, UMICRO #### [facility] [address] [place] [address] Dr. Gilberto Ocampo BUP Negative Normal NEGATIVE [facility] Comment on above: Performed By: #### U ACSIND, UMICRO #### [facility] [address] [place] [address] Dr. Gilberto Ocampo BZO Negative Normal NEGATIVE [facility] Comment on above: Performed By: #### U ACSIND, UMICRO #### [facility] [address] [place] [address] Dr. Gilberto Ocampo CARLIE Negative Normal NEGATIVE [facility] Comment on above: Performed By: #### U ACSIND, UMICRO #### [facility] [address] [place] [address] Dr. Gilberto Ocampo CUT-OFFS SEE BELOW Normal [facility] Comment on above: Result Comment: AMP [...] Performed By: #### U ACSIND, UMICRO #### [facility] [address] [address] [address] Gilberto Ocampo DRUG CUT HEADER DRUG CLASS TEST SYSTEM CUT-OFF CONCENTRATIONS ARE FOLLOWS: Normal [facility] Comment on above: Performed By: #### U ACSIND, UMICRO #### [facility] [address] [place] [address] Dr. Gilberto Ocampo mAMP Negative Normal NEGATIVE [facility] Comment on above: Performed By: #### U ACSIND, UMICRO #### [facility] [address] [place] [address] Dr. Gilberto Ocampo MTD Negative Normal NEGATIVE [facility] Comment on above: Performed By: #### U ACSIND, UMICRO #### [facility] [address] [place] [address] Dr. Gilberto Ocampo OPI Negative Normal NEGATIVE [facility] Comment on above: Performed By: #### U ACSIND, UMICRO #### [facility] [address] [place] [address] Dr. Gilberto Ocampo OXY Negative Normal NEGATIVE [facility] Comment on above: Performed By: #### U ACSIND, UMICRO #### [facility] [address] [place] [address] Dr. Gilberto Ocampo PCP Negative Normal NEGATIVE [facility] Comment on above: Performed By: #### U ACSIND, UMICRO #### [facility] [address] [place] [address] Dr. Gilberto Ocampo PPX Negative Normal NEGATIVE [facility] Comment on above: Performed By: #### U ACSIND, UMICRO #### [facility] [address] [place] [address] Dr. Gilberto Ocampo TCA Negative Normal NEGATIVE [facility] Comment on above: Performed By: #### U ACSIND, UMICRO #### [facility] [address] [address] [address] Gilberto Ocampo THC Negative Normal NEGATIVE [facility] Comment on above: Performed By: #### U ACSIND, UMICRO #### [facility] [address] [address] [address] Gilberto Ocampo ER URINE PROFILEon 2 Clarity (U) CLOUDY Abnormal CLEAR [facility] Comment on above: Performed By: #### U ACSIND, UMICRO #### [facility] [address] [address] [address] Gilberto Ocampo ERUAHD A micrscopic examination will be performed if indicated. Normal [facility] Comment on above: Performed By: #### U ACSIND, UMICRO #### [facility] [address] [place] [address] Dr. Gilberto Ocampo pH (U) 6.0 [pH] Normal 5-[address] [facility] Comment on above: Performed By: #### U ACSWALI, UMICRO #### [facility] [address] [address] [address] Gilberto Ocampo Protein (U) [Mass/Vol] 30 mg/dL Abnormal NEGATIVE/ TRACE [facility] Comment on above: Performed By: #### U ACSIND, UMICRO #### [facility] [address] [address] [address] Gilberto Ocampo ETHANOL (BLD ALC)on 11-09-20 22 ALC NOTE NOTE: 80 mg/dl is the legal limit for a blood alcohol level Normal [facility] Comment on above: Performed By: #### E TH #### [facility] [address] [address] [address] Gilberto Ocampo Ethanol [Mass/Vol] mg/dL Normal [facility] Comment on above: Performed By: #### E TH #### [facility] [address] [address] [address] Gilberto Ocampo GLYCOHEMOGLOBIN A1Con 2021 ADA RECOMMENDATION SEE BELOW Normal [facility] Comment on above: Result Comment: ADA RECOMMENDED LIMIT 4.0 - 6.0 ADA THERAPEUTIC TARGET < 7.0 ACTION SUGGESTED > 7.0 Performed By: #### U ZAID JAIN #### [facility] [address] [place] [address] Dr. Gilberto Ocampo Glucose [Mass/Vol] 177 mg/dL Normal [facility] Comment on above: Performed By: #### U ZAID JAIN #### [facility] [address] [address] [address] Gilberto Ocampo HbA1c (Bld) [Mass fraction] 7.8 % Critically high 4.5-6.[address] [facility] Comment on above: Performed By: #### U ZAID JAIN #### [facility] [address] [place] [address] Dr. Gilberto Ocampo LIPID PROFILEon 11-09-2022 CHOL-HDL RATIO NORM SEE BELOW Normal [facility] Comment on above: Result Comment: 3.3 - 4.4 LOW RISK 4.4 - 7.1 AVERAGE RISK 7.1 - 11.0 MODERATE RISK >11.0 HIGH RISK Performed By: #### L IPID #### [facility] [address] [place] [address] Dr. Gilberto Ocampo Cholesterol [Mass/Vol] 111 mg/dL Normal <=[address] [facility] Comment on above: Performed By: #### L IPID #### [facility] [address] [place] [address] Dr. Gilberto Ocampo Cholesterol in HDL [Mass/Vol] 64 mg/dL Critically high 40-[address] [facility] Comment on above: Performed By: #### L IPID #### [facility] [address] [place] [address] Dr. Gilberto Ocampo Cholesterol in LDL [Mass/Vol] 28.6 mg/dL Normal [facility] Comment on above: Performed By: #### L IPID #### [facility] [address] [place] [address] Dr. Gilberto Ocampo Cholesterol.total/ Cholesterol in HDL [Mass ratio] 1.7 {ratio} Normal [facility] Comment on above: Performed By: #### L IPID #### [facility] [address] [address] [address] Gilberto Ocampo HDL NORMAL > or = 60 mg/dl - LOW CARDIOVASCULAR RISK <40 mg/dl - HIGH CARDIOVASCULAR RISK Normal [facility] Comment on above: Performed By: #### L IPID #### [facility] [address] [place] [address] Dr. Gilberto Ocampo LDL CALC NORMAL SEE BELOW Normal [facility] Comment on above: Result Comment: <100 mg/dl OPTIMAL 100 - 129 mg/dl NEAR OR ABOVE OPTIMAL 130 - 159 mg/dl BORDERLINE HIGH 160 - 189 mg/dl HIGH >190 mg/dl VERY HIGH Performed By: #### L IPID #### [facility] [address] [place] [address] Dr. Gilberto Ocampo Triglyceride [Mass/Vol] 92 mg/dL Normal <=[address] [facility] Comment on above: Performed By: #### L IPID #### [facility] [address] [address] [address] Gilberto Ocampo VLDL CALC 18.4 mg/dL Normal [facility] Comment on above: Performed By: #### L IPID #### [facility] [address] [place] [address] Dr. Gilberto Ocampo PROF 14(COMP METB)on 022 Albumin [Mass/Vol] 3.5 g/dL Normal 3.4-5.0 [facility] Comment on above: Performed By: #### A CET, CMP #### [facility] [address] [place] [address] Dr. Gilberto Ocampo Albumin/Globulin [Mass ratio] 0.9 {ratio} Normal [facility] Comment on above: Performed By: #### A CET, CMP #### [facility] [address] [place] [address] Dr. Gilberto Ocampo ALP [Catalytic activity/Vol] 87 U/L Normal 46-[address] [facility] Comment on above: Performed By: #### A CET, CMP #### [facility] [address] [place] [address] Dr. Gilberto Ocampo ALT [Catalytic activity/Vol] 23 U/L Normal 14-[address] [facility] Comment on above: Performed By: #### A CET, CMP #### [facility] [address] [place] [address] Dr. Gilberto Ocampo Anion gap [Moles/Vol] 9.3 mmol/L Normal [facility] [facility] Comment on above: Performed By: #### A CET, CMP #### [facility] [address] [place] [address] Dr. Gilberto Ocampo AST [Catalytic activity/Vol] 24 U/L Normal 15-[address] [facility] Comment on above: Performed By: #### A CET, CMP #### [facility] [address] [place] [address] Dr. Gilberto Ocampo Bilirubin [Mass/Vol] 1.0 mg/dL Normal 0.2-1.[address] [facility] Comment on above: Performed By: #### A CET, CMP #### [facility] [address] [place] [address] Dr. Gilberto Ocampo Calcium [Mass/Vol] 8.7 mg/dL Normal 8.5-10.1 [facility] Comment on above: Performed By: #### A CET, CMP #### [facility] [address] [place] [address] Dr. Gilberto Ocampo Chloride [Moles/Vol] 102 mmol/L Normal 98-[address] [facility] Comment on above: Performed By: #### A CET, CMP #### [facility] [address] [place] [address] Dr. Gilberto Ocampo CO2 [Moles/Vol] 32.4 mmol/L Critically high 21.0-32.[address] [facility] Comment on above: Performed By: #### A CET, CMP #### [facility] [address] [place] [address] Dr. Gilberto Ocampo Creatinine [Mass/Vol] 1.58 mg/dL Critically high 0.55-1.[address] [facility] Comment on above: Performed By: #### A CET, CMP #### [facility] [address] [place] [address] Dr. Gilberto Ocampo EGFR-AF SWEDISH 39 mL/min/1.73m2 Critically low >=[address] [facility] Comment on above: Performed By: #### A CET, CMP #### [facility] [address] [address] [address] Gilberto Ocampo EGFR-NON AF SWEDISH 32 mL/min/1.73m2 Critically low >=[address] [facility] Comment on above: Performed By: #### A CET, CMP #### [facility] [address] [address] [address] Gilberto Ocampo Globulin (S) [Mass/Vol] 3.7 g/dL Normal [facility] Comment on above: Performed By: #### A CET, CMP #### [facility] [address] [place] [address] Dr. Gilberto Ocampo Glucose [Mass/Vol] 272 mg/dL Critically high 74-106 [facility] Comment on above: Performed By: #### A CET, CMP #### [facility] [address] [place] [address] Dr. Gilberto Ocampo Potassium [Moles/Vol] 3.7 mmol/L Normal 3.5-5.[address] [facility] Comment on above: Performed By: #### A CET, CMP #### [facility] [address] [place] [address] Dr. Gilberto Ocampo Protein [Mass/Vol] 7.2 g/dL Normal 6.4-8.2 [facility] Comment on above: Performed By: #### A CET, CMP #### [facility] [address] [place] [address] Dr. Gilberto Ocampo Sodium [Moles/Vol] 140 mmol/L Normal 136-145 [facility] Comment on above: Performed By: #### A CET, CMP #### [facility] [address] [place] [address] Dr. Gilberto Ocampo Urea nitrogen [Mass/Vol] 20.0 mg/dL Critically high 7.0-18.[address] [facility] Comment on above: Performed By: #### A CET, CMP #### [facility] [address] [address] [address] Gilberto Ocampo Urea nitrogen/Creatinin e [Mass ratio] 12.7 mg/mg Normal [facility] Comment on above: Performed By: #### A CET, CMP #### [facility] [address] [address] [address] 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 Gilberto Ocampo Clarity (U) CLEAR Normal CLEAR [facility] Comment on above: Performed By: #### U ACSIND, UMICRO #### [facility] [address] [place] [address] Dr. Gilberto Ocampo Color (U) LT. YELLOW Normal YELLOW [facility] Comment on above: Performed By: #### U ACSIND, UMICRO #### [facility] [address] [address] [address] Gilberto Ocampo Glucose Ql (U) Negative Normal NEGATIVE [facility] Comment on above: Performed By: #### U ACSIND, ICRO #### [facility] [address] [place] [address] Dr. Gilberto Ocampo Hemoglobin Ql (U) LARGE Abnormal NEGATIVE [facility] Comment on above: Performed By: #### U ACSIND, UMICRO #### [facility] [address] [address] [address] Gilberto Ocampo Ketones Ql (U) TRACE Abnormal NEGATIVE [facility] Comment on above: Performed By: #### U ACSIND, UMICRO #### [facility] [address] [place] [address] Dr. Gilberto Ocampo LEUKOCYTES MODERATE Abnormal NEGATIVE [facility] Comment on above: Performed By: #### U ACSIND, UMICRO #### [facility] [address] [address] [address] Gilberto Ocampo Nitrite Ql (U) Positive Abnormal NEGATIVE [facility] Comment on above: Performed By: #### U ACSIND, UMICRO #### [facility] [address] [address] [address] Gilberto Ocampo pH (U) 5.5 [pH] Normal 5-[address] [facility] Comment on above: Performed By: #### U ACSIND, UMICRO #### [facility] [address] [address] [address] Gilberto Ocampo SPEC GRAVITY 1.025 Normal 1.005-<=1.025 [facility] Comment on above: Performed By: #### U ACSIND, UMICRO #### [facility] [address] [address] [address] Gilberto Ocampo UA PROTEIN 30 mg/dl Abnormal NEGATIVE/ TRACE [facility] Comment on above: Performed By: #### U ACSIND, UMICRO #### [facility] [address] [place] [address] Dr. Gilberto Ocampo UR MICRO IND INDICATED Normal [facility] Comment on above: Performed By: #### U ACSIND, UMICRO #### [facility] [address] [place] [address] Dr. Gilberto Ocampo Urobilinogen Qn (U) 0.2 {Torres'U}/dL Normal 0.2 - 1.[address] [facility] Comment on above: Performed By: #### U ACSIND, UMICRO #### [facility] [address] [place] [address] Dr. Gilberto Ocampo URINE MICROSCOPIC ONLYon BACTERIA SMALL Abnormal NONE SEEN [facility] Comment on above: Performed By: #### U ACSIND, UMICRO #### [facility] [address] [address] [address] Gilberto Ocampo BACTERIA MODERATE Abnormal NONE SEEN [facility] Comment on above: Performed By: #### U ACSIND, UMICRO #### [facility] [address] [place] [address] Dr. Gilberto Ocampo Bacteria identified Cx Nom (U) INDICATED Normal [facility] Comment on above: Performed By: #### U ACSIND, UMICRO #### [facility] [address] [address] [address] Gilberto Ocampo CAST NONE SEEN Normal NONE SEEN [facility] Comment on above: Performed By: #### U ACSIND, UMICRO #### [facility] [address] [address] [address] Gilberto Ocampo Crystals LM Nom (Urine sed) NONE SEEN Normal NONE SEEN [facility] Comment on above: Performed By: #### U ACSWALI, UMICRO #### [facility] [address] [address] [address] Gilberto cOampo Epithelial cells LM Ql (Urine sed) MODERATE Abnormal NONE SEEN /RARE [facility] Comment on above: Performed By: #### U ACSWALI, UMICRO #### [facility] [address] [place] [address] Dr. Gilberto Ocampo MUCOUS TRACE Abnormal NONE SEEN [facility] Comment on above: Performed By: #### U ACSWALI, UMICRO #### [facility] [address] [place] [address] Dr. Gilberto Ocampo MUCOUS SMALL Abnormal NONE SEEN [facility] Comment on above: Performed By: #### U ACSWALI ICRO #### [facility] [address] [place] [address] Dr. Gilberto Ocampo RBC 2-5 Abnormal 0-[address] [facility] Comment on above: Performed By: #### U ACSWALI UMICRO #### [facility] [address] [place] [address] Dr. Gilberto Ocamop RBC 5-10 Abnormal 0-2 [facility] Comment on above: Performed By: #### U ACSWALI, UMICRO #### [facility] [address] [address] [address] Gilberto Ocampo WBC 20-50 Abnormal NONE SEEN [facility] Comment on above: Performed By: #### U ACSWALI, UMICRO #### [facility] [address] [place] [address] Dr. Gilberto Ocampo WBC 10-20 Abnormal NONE SEEN [facility] Comment on above: Performed By: #### U CRISTOBAL UMICRO #### [facility] [address] [address] [address] Gilberto Ocampo MG MAMM SCREEN 3D DION CADon 10-11-2022 MG MAMM SCREEN 3D DION CAD Patient: MALCOM KNOWLES Exam Date: 10/11/2022 : 1955 Gender:F Ordering : DR DUSTY WALTERS . Admission #: [id number] Family : Order #: [id number] CLICK HERE TO VIEW EXAM RADIOLOGY REPORT [...] prostate cancer at age 64. LOCATION: [facility] BREAST COMPOSITION: Scattered areas fibroglandular density. [...] MD on 10/11/2022 at 14:47 Normal [facility] PTH INTACTon 09-18-2022 PTH, Intact 46 pg/mL Normal 15-[address] [facility] Comment on above: Performed By: #### U CRISTOBAL UMICRO #### [facility] [address] [address] [address] Gilberto Ocampo HEMOGRAM AND PLATELon 2021 Hematocrit (Bld) [Volume fraction] 37.2 % Normal 36.0-48.[address] [facility] Comment on above: Performed By: #### H H #### [facility] [address] [address] [address] Gilberto Ocampo Hemoglobin (Bld) [Mass/Vol] 12.2 g/dL Normal 12.0-16.[address] [facility] Comment on above: Performed By: #### H H #### [facility] [address] [place] [address] Dr. Gilberto Ocampo MCH (RBC) [Entitic mass] 30.3 pg Normal 26.7-34.[address] [facility] Comment on above: Performed By: #### H H #### [facility] [address] [place] [address] Dr. Gilberto Ocampo MCHC (RBC) [Mass/Vol] 32.8 g/dL Normal 29.9-35.[address] [facility] Comment on above: Performed By: #### H H #### [facility] [address] [place] [address] Dr. Gilberto Ocampo MCV (RBC) [Entitic vol] 92.5 fL Normal 81.0-99.0 [facility] Comment on above: Performed By: #### H H #### [facility] [address] [place] [address] Dr. Gilberto Ocampo PLT 194 103/ul Normal 150-450 [facility] Comment on above: Performed By: #### H H #### [facility] [address] [place] [address] Dr. Gilberto Ocampo RBC 4.02 106/ul Critically low 4.20-5.40 [facility] Comment on above: Performed By: #### H H #### [facility] [address] [place] [address] Dr. Gilberto Ocampo WBC 5.4 103/ul Normal 4.0-11.0 [facility] Comment on above: Performed By: #### H H #### [facility] [address] [place] [address] Dr. Gilberto Ocampo MAGNESIUMon 09-15-2022 Magnesium [Mass/Vol] 1.9 mg/dL Normal 1.8-2.[address] [facility] Comment on above: Performed By: #### A CET, CMP #### [facility] [address] [place] [address] Dr. Gilberto Ocampo PROF 14(COMP METB)on 09-15- 022 Albumin [Mass/Vol] 3.3 g/dL Critically low 3.4-5.0 [facility] Comment on above: Performed By: #### A CET, CMP #### [facility] [address] [address] [address] Gilberto Ocampo Albumin/Globulin [Mass ratio] 0.9 {ratio} Normal [facility] Comment on above: Performed By: #### A CET, CMP #### [facility] [address] [address] [address] Gilberto Ocampo ALP [Catalytic activity/Vol] 85 U/L Normal 46-[address] [facility] Comment on above: Performed By: #### A CET, CMP #### [facility] [address] [address] [address] Gilberto Ocampo ALT [Catalytic activity/Vol] 32 U/L Normal 14-[address] [facility] Comment on above: Performed By: #### A CET, CMP #### [facility] [address] [address] [address] Gilberto Ocampo Anion gap [Moles/Vol] 12.3 mmol/L Normal [facility] Comment on above: Performed By: #### A CET, CMP #### [facility] [address] [place] [address] Dr. Gilberto Ocampo AST [Catalytic activity/Vol] 20 U/L Normal 15-[address] [facility] Comment on above: Performed By: #### A CET, CMP #### [facility] [address] [address] [address] Gilberto Ocampo Bilirubin [Mass/Vol] 1.1 mg/dL Critically high 0.2-1.[address] [facility] Comment on above: Performed By: #### A CET, CMP #### [facility] [address] [address] [address] Gilberto Ocampo Calcium [Mass/Vol] 8.5 mg/dL Normal 8.5-10.1 [facility] Comment on above: Performed By: #### A CET, CMP #### [facility] [address] [address] [address] Gilberto Ocampo Chloride [Moles/Vol] 103 mmol/L Normal 98-[address] [facility] Comment on above: Performed By: #### A CET, CMP #### [facility] [address] [place] [address] Dr. Gilberto Ocampo CO2 [Moles/Vol] 29.5 mmol/L Normal 21.0-32.0 [facility] Comment on above: Performed By: #### A CET, CMP #### [facility] [address] [place] [address] Dr. Gilberto Ocampo Creatinine [Mass/Vol] 1.52 mg/dL Critically high 0.55-1.[address] [facility] Comment on above: Performed By: #### A CET, CMP #### [facility] [address] [place] [address] Dr. Gilberto Ocampo EGFR-AF SWEDISH 41 mL/min/1.73m2 Critically low >=[address] [facility] Comment on above: Performed By: #### A CET, CMP #### [facility] [address] [place] [address] Dr. Gilberto Ocampo EGFR-NON AF SWEDISH 34 mL/min/1.73m2 Critically low >=[address] [facility] Comment on above: Performed By: #### A CET, CMP #### [facility] [address] [place] [address] Dr. Gilberto Ocampo Globulin (S) [Mass/Vol] 3.6 g/dL Normal [facility] Comment on above: Performed By: #### A CET, CMP #### [facility] [address] [place] [address] Dr. Gilberto Ocampo Glucose [Mass/Vol] 323 mg/dL Critically high 74-106 [facility] Comment on above: Performed By: #### A CET, CMP #### [facility] [address] [place] [address] Dr. Gilberto Ocampo Potassium [Moles/Vol] 3.8 mmol/L Normal 3.5-5.[address] [facility] Comment on above: Performed By: #### A CET, CMP #### [facility] [address] [address] [address] Gilberto Ocampo Protein [Mass/Vol] 6.9 g/dL Normal 6.4-8.2 [facility] Comment on above: Performed By: #### A CET, CMP #### [facility] [address] [place] [address] Dr. Gilberto Ocampo Sodium [Moles/Vol] 141 mmol/L Normal 136-145 [facility] Comment on above: Performed By: #### A CET, CMP #### [facility] [address] [place] [address] Dr. Gilberto Ocampo Urea nitrogen [Mass/Vol] 16.0 mg/dL Normal 7.0-18.[address] [facility] Comment on above: Performed By: #### A CET, CMP #### [facility] [address] [place] [address] Dr. Gilberto Ocampo Urea nitrogen/Creatinin e [Mass ratio] 10.5 mg/mg Normal [facility] Comment on above: Performed By: #### A CET, CMP #### [facility] [address] [place] [address] Dr. Gilberto Ocampo URIC ACID SERUMon 09-15-2022 Urate [Mass/Vol] 3.3 mg/dL Normal 2.6-6.0 [facility] Comment on above: Performed By: #### A CET, CMP #### [facility] [address] [place] [address] Dr. Gilberto Ocampo VITAMIN D 25 OHon 09-15-2022 VIT D 25-OH 57.1 ng/mL Normal [facility] Comment on above: Performed By: #### U ACSWALI UMICRO #### [facility] [address] [place] [address] Dr. Gilberto Ocampo VIT D RANGES SEE BELOW Normal [facility] Comment on above: Result Comment: <20 ng/mL Vit D deficient 20 - <30 ng/mL Vit D insufficient 30 - 100 ng/mL Vit D sufficient >100 ng/mL Potential Toxicity Performed By: #### U ACSIND UMICRO #### [facility] [address] [address] [address] Gilberto Ocampo US KIDNEYSon 08-30-2022 US [...] by: ADAMS RAGSDALE Date: 2022-08-30 11:[address] [facility] XR CHEST 2 Von 08-27-2022 [...] RAGSDALE Date: 2022-08-27 21:[address] [facility] XR NECK SOFT TISSUEon 2021 [...] by: ADAMS RAGSDALE Date: 2022-08-27 21:58 Normal [facility] Tobacco Screening.on 022 Adult depression screening assessment No [facility] 250 DO Work Phone: Fall risk assessment b) One or more falls in the last year [facility] [facility] 250 DO Work Phone: Tobacco use status [facility]PHS b) No -[facility] [facility] 250 DO Work Phone: CNPNon 01-18-2021 CNPN Telephone (GYNML) -------- MALCOM KNOWLES ([id number]) 1955 F Date Time Provider Department 01/18/21 [...] Other: See Comments Comments: History of Guillain -Parkton Syndrome FLU VACCINE 2010-12(3 YR+)(PF) 01/18/2016 14 [...] Encounter Status:Closed by ANABELA BUSTAMANTE on 01/18/21 [facility] Vital Signs Date Time Vital Sign Value Performing Clinician Facility 02-25-2024 11:15-0400 Body height 162.56 cm [facility] 02-25-2024 11:15-0400 Body temperature 96.9 [degF] [facility] 02-25-2024 11:15-0400 Diastolic blood pressure 79 mm[Hg] [facility] 02-25-2024 11:15-0400 Heart rate 61 /min [facility] 02-25-2024 11:15-0400 Respiratory rate 16 /min [facility] 02-25-2024 11:15-0400 SaO2% (BldA) [Mass fraction] 99 % [facility] 02-25-2024 11:15-0400 Systolic blood pressure 141 mm[Hg] [facility] 01-09-2024 11:49-0500 Body height 157.5 cm Cinthia Vazquez MD Work Phone: [facility] 01-09-2024 11:49-0500 Body mass index (BMI) [Ratio] 53.04 kg/m2 Cinthia Vazquez MD Work Phone: [facility] 01-09-2024 11:49-0500 Body weight 131.54 kg Cinthia Vazquez MD Work Phone: [facility] 01-09-2024 11:49-0500 Diastolic blood pressure 80 mm[Hg] Cinthia Vazquez MD Work Phone: [facility] 01-09-2024 11:49-0500 Heart rate 64 /min Cinthia Vazquez MD Work Phone: [facility] 01-09-2024 11:49-0500 Systolic blood pressure 136 mm[Hg] Cinthia Vazquez MD Work Phone: [facility] 11-21-2023 10:16-0500 Blood Pressure Location BRIGIDA WILLOUGHBY [facility] 11-21-2023 10:16-0500 Diastolic blood pressure 84 mm[Hg] BRIGIDA WILLOUGHBY [facility] 11-21-2023 10:16-0500 Systolic blood pressure 138 mm[Hg] BRIGIDA WILLOUGHBY [facility] 07-02-2023 14:20-0400 Body height 162.56 cm Chip Hernandezruth Other [facility] Other 07-02-2023 14:20-0400 Body temperature 96.7 [degF] Chip [employer] Other [facility] Other 07-02-2023 14:20-0400 Diastolic blood pressure 79 mm[Hg] Joseamos [employer] Other [facility] Other 07-02-2023 14:20-0400 Respiratory rate 18 /min Chip Hernandezs Other [facility] Other 07-02-2023 14:20-0400 SaO2% (BldA) [Mass fraction] 98 % Chip [employer] Other [facility] Other 07-02-2023 14:20-0400 Systolic blood pressure 155 mm[Hg] Joseamos [employer] Other [facility] Other 04-04-2023 11:33-0400 Body height 160.02 cm Dusty Walters Work Phone: [facility] 600 DO Work Phone: 04-04-2023 11:33-0400 Body mass index (BMI) [Ratio] 52.97 kg/m2 Dusty Walters Work Phone: [facility] [employer] 600 DO Work Phone: 04-04-2023 11:33-0400 Body surface area Derived from formula 2.29 m2 Dusty Walters Work Phone: [facility] 600 DO Work Phone: 04-04-2023 11:33-0400 Body weight 135.63 kg Dusty Walters Work Phone: [facility] 600 DO Work Phone: 04-04-2023 11:33-0400 Diastolic blood pressure 70 mm[Hg] Dusty Walters Work Phone: [facility] [employer] 600 DO Work Phone: 04-04-2023 11:33-0400 Heart rate 72 /min Dusty Walters Work Phone: [facility] [employer] 600 DO Work Phone: 04-04-2023 11:33-0400 Systolic blood pressure 110 mm[Hg] Dusty Walters Work Phone: [facility] [employer] 600 DO Work Phone: 11-20-2022 10:30-0500 Body height 162.56 cm Lizandro Martins Other [employer] Other 10-30-2022 16:20-0500 Body height 162.56 cm Chip Craft Other [employer] Other 10-30-2022 16:20-0500 Diastolic blood pressure 84 mm[Hg] Chip Craft Other [employer] Other 10-30-2022 16:20-0500 SaO2% (BldA) [Mass fraction] 98 % Chip Hernandezs Other [employer] Other 10-30-2022 16:20-0500 Systolic blood pressure 128 mm[Hg] Aziz Davids Other [employer] Other 05-15-2022 14:20-0400 Body height 162.56 cm Azamos Hernandezs Other [employer] Other 05-15-2022 14:20-0400 Body temperature 97 [degF] Chip Hernandezs Other [employer] Other 05-15-2022 14:20-0400 Diastolic blood pressure 70 mm[Hg] Azamos Hernandezs Other [employer] Other 05-15-2022 14:20-0400 Respiratory rate 18 /min Chip Hernandezs Other [employer] Other 05-15-2022 14:20-0400 SaO2% (BldA) [Mass fraction] 97 % Chip Hernandezs Other [employer] Other 05-15-2022 14:20-0400 Systolic blood pressure 120 mm[Hg] Aziz Bakhous Other [employer] Other 03-12-2022 13:25-0400 Body height 160.02 cm Dusty Walters Work Phone: [facility] 250 DO Work Phone: 03-12-2022 13:25-0400 Body mass index (BMI) [Ratio] 51.02 kg/m2 Dusty Walters Work Phone: [facility] 250 DO Work Phone: 03-12-2022 13:25-0400 Body surface area Derived from formula 2.26 m2 Dusty Walters Work Phone: [facility] 250 DO Work Phone: 03-12-2022 13:25-0400 Body weight 130.64 kg Dusty Walters Work Phone: [facility] 250 DO Work Phone: 03-12-2022 13:25-0400 Diastolic blood pressure 78 mm[Hg] Dusty Walters Work Phone: [facility] 250 DO Work Phone: 03-12-2022 13:25-0400 Heart rate 70 /min Dusty Walters Work Phone: [facility] 250 DO Work Phone: 03-12-2022 13:25-0400 Systolic blood pressure 102 mm[Hg] Dusty Walters Work Phone: [facility] 250 DO Work Phone: Encounters Encounter Date Encounter Type Care Provider Facility Start: 03-03-2024 End: 03-04-2024 ambulatory BRIGIDA WILLOUGHBY Facility:[facility] Start: 03-03-2024 End: 03-03-2024 Patient encounter procedure BRIGIDA WILLOUGHBY [facility] Start: 02-27-2024 ambulatory BRIGIDA Murphyi ty:[facility] Carolnia Start: 02-25-2024 End: 02-25-2024 ambulatory [facility] Work Phone: Start: 02-25-2024 End: 02-25-2024 Patient encounter procedure [facility] Ne[facility] Work Phone: Start: 02-25-2024 End: 02-26-2024 ambulatory ARNULFO ZHU Facility:[facility] Start: 02-25-2024 End: 02-25-2024 Patient encounter procedure ARNULFO ZHU [facility] Start: 02-24-2024 Non-patient / Non-visit [facility] Work Phone: Start: 02-24-2024 End: 02-25-2024 ambulatory Jose Snow Facility:[facility] [place] [facility] Start: 02-04-2024 End: 02-05-2024 ambulatory BRIGIDA WILLOUGHBY Facility: [facility] Start: 01-09-2024 End: 01-09-2024 ambulatory [facility] Ambulatory Start: 01-09-2024 End: 01-09-2024 Office outpatient visit 15 minutes Cinthia Vazquez MD Work Phone: [facility] Comment on above: 2-vessel coronary ar wade disease (Primary Dx); Essential hypertension; Mixed hyperlipidemia; H/O non-ST elevation myocardial infarction (NSTEMI); Post PTCA; Morbid obesity ([facility]/HCC) Start: 12-23-2023 End: 12-24-2023 ambulatory Joe BOOTH Facility:[facility] Start: 12-23-2023 End: 12-23-2023 Patient encounter procedure Joe BOOTH [facility] Start: 12-16-2023 End: 12-17-2023 ambulatory Mariangel Campbell Facility:[facility] [place] [facility] Start: 11-21-2023 End: 11-22-2023 ambulatory BRIGIDA WILLOUGHBY Facility:[facility] Start: 11-21-2023 End: 11-21-2023 Patient encounter procedure BRIGIDA WILLOUGHBY [facility] Start: 11-20-2023 End: 11-21-2023 ambulatory Jose Sid Snow Facility:[facility] Start: 10-23-2023 ambulatory Magui Sam Facility:[facility] Start: 10-01-2023 End: 10-02-2023 ambulatory Jose Snow Facility:[facility] Start: 10-01-2023 End: 10-01-2023 Patient encounter procedure Jose Snow [facility] Start: 09-09-2023 End: 09-10-2023 ambulatory Jose Snow Facility:[facility] Start: 07-31-2023 End: 07-31-2023 ambulatory Anjana Pal Other [facility] Other Start: 07-31-2023 Telephone encounter Anjana Pal [facility] Start: 07-28-2023 End: 07-28-2023 ambulatory MD Dusty Walters Work Phone: [facility] Work Phone: Start: 07-28-2023 End: 07-28-2023 Departed Referred MD Dusty Walters Work Phone: [facility] [place] Work Phone: Start: 07-15-2023 End: 07-16-2023 ambulatory Mariangel Campbell Facility:[facility] Start: 07-05-2023 Telephone encounter Tanikadanyel Moranr [facility] Start: 07-05-2023 End: 07-05-2023 ambulatory Tanika John Other [facility] Other Start: 07-02-2023 End: 07-02-2023 ambulatory Chip Craft Other [facility] Other Start: 07-02-2023 Office outpatient visit 25 minutes Chip Craft [facility] Start: 07-01-2023 Office outpatient visit 25 minutes Brigida George [facility] Start: 07-01-2023 End: 07-01-2023 ambulatory MD Dusty Walters Work Phone: [facility] Work Phone: Start: 07-01-2023 End: 07-01-2023 Patient encounter procedure MD Dusty Walters Work Phone: [facility] Start: 06-28-2023 End: 06-28-2023 ambulatory Chip Craft Other [facility] Other Start: 06-28-2023 Telephone encounter Chip Hernandezs [facility] Start: 05-16-2023 End: 05-17-2023 ambulatory Mariangel L Adrian Facility:[facility] Start: 05-16-2023 End: 05-16-2023 Lab Drop off Mariangel L Adrian [facility] Start: 05-01-2023 ambulatory AJ BEJ Facility:H 1 Start: 04-04-2023 Office outpatient visit 25 minutes Dusty Walters Work Phone: [facility] 600 DO Work Phone: Start: 04-04-[address] Dusty Salgado acility: Start: 01-24-2023 End: 01-24-2023 ambulatory CONNER GERMAN . Facility:[facility] Start: 01-18-2023 End: 01-19-2023 ambulatory AJ YOUNG Facility:[facility] Start: 12-26-2022 End: 12-26-[address] DUSTY WALTERS . Facility:[facility] Start: 12-18-2022 End: 12-18-2022 ambulatory Lizandro Martins Other [facility] Other Start: 12-18-2022 Office outpatient visit 15 minutes Lizandro Martins [facility] Start: 12-17-2022 End: 12-17-[address] DUSTY WALTERS . Facility:[facility] Start: 11-20-2022 End: 11-20-2022 ambulatory Lizandro Martins Other [facility] Other Start: 11-20-2022 [facility] visit new patient Lizandro Martins [facility] Start: 11-17-2022 End: 11-17-[address] DUSTY WALTERS . Facility:[facility] Start: 11-09-2022 End: 11-10-[address] DUSTY WALTERS . Facility:[facility] Start: 11-09-2022 End: 11-10-[address] DUSTY WALTERS . Facility:[facility] Start: 10-30-2022 End: 10-30-2022 ambulatory Chip Craft Other [place] [facility] Other Start: 10-30-2022 Office outpatient visit 15 minutes Chip Craft [facility] Ne[facility] Don Start: 10-11-2022 End: 10-12-[address] DUSTY WALTERS . Facility:[facility] Start: 09-15-2022 End: [address] DUSTY WALTERS . Facility:[facility] Start: 08-30-2022 End: 08-31-[address] DOCTOR GALEANA Facility:[facility] Start: 08-27-2022 End: 08-28-[address] DUSTY WALTERS . Facility:[facility] Start: 07-04-2022 End: 07-04-[address] DUSTY WALTERS . Facility:[facility] Start: 05-15-2022 End: 05-15-2022 ambulatory Chip Craft Other [facility] Other Start: 05-15-2022 Office outpatient ne w 30 minutes Chip Craft [facility] Ne[facility]rology Don Start: 03-12-2022 Office outpatient visit 25 minutes Dusty Walters Work Phone: [facility] 250 DO Work Phone: Procedures Date Procedure Procedure Detail Performing Clinician Start: 12-23-2023 Cystourethroscopy wi dilation of urethral stricture Jose Snow Start: 07-01-2023 Plain X-ray of left shoulder MD Dusty Walters Work Phone: Arthroplasty of knee Dusty chase Work Phone: Cardiac catheterization Dusty Walters Work Phone: Cardiac catheterization Jose R Snow Comment on above: 2017 2 stents, 2019 3 stents Cataract (disorder) Jose Yamel oss Comment on above: 08/2021 Colonoscopy BRIGIDA WILLOUGHBY History of arthropla sty of left knee Jose Kaushal Comment on above: 2018 History of operative [...] procedure 01/05/2025 9:50 AM EST Office Visit [facility] [address] [place] [address] Cinthia Vazquez MD [address] [facility] [address] [place] [address] [facility] Start: 04-28-2024 ambulatory Ambulatory Facility:[facility] Start: 01-07-2024 FUV, Provider: Cinthia Vazquez, Status: Pen, Time: 11:00 AM FUV, Provider: Cinthia Vazquez, Status: Pen, Time: 11:00 [facility] Work Phone: Start: 08-02-2023 COVID-19 Vaccine () COVID-19 Vaccine () [facility] Start: 08-02-2023 Influenza vaccination Influenza Vaccine (#1) [facility] Start: 07-28-2023 Bacteria identified in Urine by Culture Urine Culture [facility] Start: 12-11-2022 FUV, Provider: Cinthia Vazquez, Status: Pen, Time: 10:30 AM FUV, Provider: Cinthia Vazquez, Status: Pen, Time: 10:30 AM [facility] 250 DO Work Phone: Start: 07-05-2022 Glaucoma screening Diabetes: Retinopathy Screening [facility] Start: 12-02-2021 Pneumococcal Vaccine: 65+ Years (3 - PPSV23 or PCV20) Pneumococcal Vaccine: 65+ Years (3 - PPSV23 or PCV20) [facility] Start: 2003 Zoster Vaccines (1 of 2) Zoster Vaccines (1 of 2) [facility] Start: 1993 Screening for malignant neoplasm of breast Mammogram [facility] Start: 1975 DTaP/Tdap/Td Vaccines (1 - Tdap) DTaP/Tdap/Td Vaccines (1 - Tdap) [facility] Start: 1972 Urine screening for protein Diabetes: Urine Protein Screening [facility] Start: 1971 Hepatitis C screening Hepatitis C Screening [facility] Start: 1963 Diabetic foot examination Diabetes: Foot Exam [facility] Start: 1953 Hemoglobin A1c measurement Diabetes: Hemoglobin A1C [facility] Start: 1953 Lipid panel Lipid Panel [facility] Start: 1953 Medicare Annual Wellness Visit Medicare Annual Wellness Visit (AWV) [facility] Start: 1953 Screening for malignant neoplasm of colon [facility] Start: 1953 Screening for osteoporosis Bone Density Scan [facility] Immunizations Immunization Date Immunization Notes Care Provider Sharad mota 09-13-2022 SARS-CoV-2 (COVID-19 ) [id number] Mariangel Campbell [facility] 01-13-2022 Moderna COVID-19 Vac cine 100 MCG/0.5ML Intramuscular Suspension Dusty Walters Work Phone: [facility] Comment on above: Result Comment: 2022: [id number] 08-09-2021 Moderna COVID-19 Vac cine 100 MCG/0.5ML Intramuscular Suspension Dusty Walters Work Phone: [facility] 07-12-2021 Moderna COVID-19 Vac cine 100 MCG/0.5ML Intramuscular Suspension Dusty Walters Work Phone: [facility] 12-02-2016 pneumococcal polysaccharide vaccine, 23 valent Dusty Walters Work Phone: [facility] 250 DO Work Phone: 10-18-2016 pneumococcal conjuga te vaccine, 13 valent Dusty Walters Work Phone: [facility] Payers Date Payer Category Payer Unknown [id number] 2023 Self-pay [id number] 2022 Medicare [id number] 2018 Medicare [id number] 1959 Medicare [id number] 2.1 [id number] 1959 Unknown [id number] 2.1 6.840.1.501341.19 1953 Unknown [id number] 2.16. 840.1.014189.3.579.2.356 1953 Unknown [id number] 2.16.84 0.1.899660.3.579.2.593 1953 Unknown [id number] 2.16.84 0.1.434649.3.579.2.593 1953 Unknown [id number] 2.16.84 0.1.297128.3.579.2.593 1953 Unknown [id number] 2.16.84 0.1.798161.3.579.2.593 1953 Unknown [id number] 2.16.84 0.1.492009.3.579.2.593 1953 Unknown [id number] 2.16.84 0.1.054988.3.579.2.593 1953 Unknown [id number] 2.16.84 0.1.240409.3.579.2.593 1953 Unknown [id number] 2.16.84 0.1.881963.3.579.2.593 1953 Unknown [id number] 2.16.84 0.1.803142.3.579.2.593 1953 Unknown [id number] 2.16.84 0.1.573421.3.579.2.593 1953 Unknown [id number] 2.16.84 0.1.951119.3.579.2.593 1953 Unknown [id number] 2.16.84 0.1.499420.3.579.2.593 1953 Unknown [id number] 2.16.84 0.1.514645.3.579.2.593 1953 Unknown [id number] 2.16.8 40.1.729085.3.579.2.1244 1953 Unknown [id number] 2.16.8 40.1.941046.3.579.2.727 1953 Unknown [id number] 2.16.8 40.1.406986.3.579.2.727 1953 Unknown [id number] 2.16.8 40.1.551487.3.579.2.727 1953 Unknown [id number] 2.16.8 40.1.925281.3.579.2.727 1953 Unknown [id number] 2.16.8 40.1.989465.3.579.2.727 1953 Unknown [id number] 2.16.8 40.1.866453.3.579.2.727 1953 Unknown [id number] 2.16.8 40.1.232941.3.579.2.727 1953 Unknown [id number] 2.16.8 40.1.628299.3.579.2.727 1953 Unknown [id number] 2.16.8 40.1.158886.3.579.2.727 1953 Unknown [id number] 2.16.8 40.1.827131.3.579.2.727 1953 Unknown [id number] 2.16.8 40.1.204829.3.579.2.727 1953 Unknown [id number] 2.16.8 40.1.208877.3.579.2.727 1953 Unknown [id number] 2.16.8 40.1.306229.3.579.2.727 1953 Unknown [id number] 2.16.8 40.1.525024.3.579.2.727 1953 Unknown [id number] 2.16.8 40.1.825529.3.579.2.727 1953 Unknown [id number] 2.16.8 40.1.826804.3.579.2.727 1953 Unknown [id number] 2.16.8 40.1.818901.3.579.2.727 1953 Unknown [id number] 2.16.8 40.1.152629.3.579.2.727 Medicaid [place] [employer] [id number] Unknown Unknown [id number] 2.16.8 40.1.417737.3.579.2.531 Unknown [id number] 2.16.8 40.1.538556.3.579.2.531 Social History Date Type Detail Facility Start: 12-16-2023 No alcohol use No alcohol use -[facility] 250 DO Work Phone: Comment on above: 2 CUPS OF ICED TEA D AILY; Start: 12-16-2023 Sex Assigned At F [facility] Start: 05-16-2023 End: 02-24-2024 Tobacco smoking status Never smoked tobacco (finding) [facility] Tobacco smoking status Never [facility] Start: 1955 Sex Assigned At Female F [facility] Start: 01-09-2024 Alcohol intake Lifetime non-d vijay (finding) [facility] Work Phone: Start: 1955 Sex Assigned At Not on file [facility] Work Phone: Start: 12-30-2023 End: 01-09-2024 Exposure to SARS-CoV-2 (event) Not sure [facility] Medical Equipment Procedure Code Equipment Code Equipment [...] to inject insulin as directed. Dx E10.42, [employer] [facility] Start: 02-19-2023 CL STENT AURORA 3.0 X 18 FDA Start: 06-29-2018 CL STENT AURORA 3.5 X 15 FDA Start: 06-29-2018 [id number] FDA Start: 04-18-2020 Drug-eluting cor onary artery stent, two-bwoywoaeyblfo-zypl larry-coated ()[id number] FDA Start: 04-18-2020 Drug-eluting cor onary artery stent, smj-zmqxyrobvyumk-ease larry-coated ()[id number] FDA Start: 04-18-2020 CL STENT AURORA 3.0 X 18 FDA Start: 06-29-2018 CL STENT AURORA 3.5 X 15 FDA Start: 06-29-2018 [id number] FDA Start: 04-18-2020 [facility] DME Prescri ption, See Instructions, 300 pen needle(s), 3, BD ultra fine pen needles 31G X 3/16. Use to inject insulin as directed. Dx E10.42, [facility], Supply Start: 02-19-2023 [facility] DME Prescri ption, See Instructions, 300 pen needle(s), 3, BD ultra fine pen needles 31G X 3/16. Use to inject insulin as directed. Dx E10.42, [facility], Supply Start: 02-19-2023 [facility] DME Prescri ption, See Instructions, 300 pen needle(s), 3, BD ultra fine pen needles 31G X 3/16. Use to inject insulin as directed. Dx E10.42, [facility], Supply Start: 02-19-2023 CL STENT AURORA 3.0 X 18 FDA Start: 06-29-2018 CL STENT AURORA 3.5 X 15 FDA Start: 06-29-2018 [id number] FDA Start: 04-18-2020 [facility] DME Prescri ption, See Instructions, 300 pen needle(s), 3, BD ultra fine pen needles 31G X 3/16. Use to inject insulin as directed. Dx E10.42, [facility], Supply Start: 02-19-2023 [facility] DME Prescri ption, See Instructions, 300 pen needle(s), 3, BD ultra fine pen needles 31G X 3/16. Use to inject insulin as directed. Dx E10.42, [facility] [place], Supply Start: 02-19-2023 Misc DME Prescri ption, See Instructions, 300 pen needle(s), 3, BD ultra fine pen needles 31G X 3/16. Use to inject insulin as directed. Dx E10.42, [facility], Supply Start: 02-19-2023 Functional Status Date Assessment Result Facility 12-23-2023 Functional Status N/A [facility] 11-21-2023 Functional Status N/A [facility] Clinical Notes 06-01-2018 to 01-09-2024 Cinthia [...] Cinthia Vazquez MD. documented in this encounter [facility] Work Phone: 01-09-2024 Instructions Nathaly Huffman LPN [...] up one year documented in this encounter [facility] Work Phone: 12-31-2023 Note Clinician was able t o reach out to daughter. 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 Was able to share the need for a SLUMS test from Neurology and to test for Alzheimer's and or Dementia due to grandmother having Alzheimer's. Gave information to reach out to Manager Printing if anything else is needed. [facility] 12-23-2023 Note [id number] [facility] 12-23-2023 Note Cystoscopy with Uret [...] you have a fever over 100 degrees [facility] 12-23-2023 Hospital Discharge instructions Patient [...] Up Care 11/26/2023 13:33:03 With:BRIGIDA WILLOUGHBY [address]: [address] [place] [address] Business (1) When:6 weeks Comments:Call for followup appointment, with a bladder scan for PVR at that visit. Monitor your urinary flow after the dilation of the channel today. [facility] 11-21-2023 Hospital Discharge instructions Patient Education [...] nerve stimulation). ?For women, using a medical center manager to prevent urine leaks. This is [...] right after experiencing incontinence. General instructions Take sbna-gbt-sevkfqu and prescription medicines only as told by [...] important. Where to find more information National [place] of Diabetes and Digestive and Kidney Diseases: www.niddk.nih.gov [employer]: www.urologyhealth.org Contact a health care [...] provider. Document Revised: 06/23/2021 Document Reviewed: 06/23/2021 Docin Patient Education 2022 [employer]. Follow Up Care 09/03/2023 10:14:29 With:BRIGIDA WILLOUGHBY PA-C, URL Address: [facility] [address] [place] [address] [phone] When: Unknown [facility] 07-02-2023 Evaluation note Encounter Date [...] obesity (ICD-10 - E66.01) advised weight loss [facility] Other 07-31-2023 Evaluation note* Encounter Date Diagnosis [...] pain of left shoulder (ICD-10 - M25.512) [facility] Other 06-15-2023 Evaluation + Plan note Diagnostic Tests Pending * Urine Culture 05/16/23 [facility]01-17-2023 Evaluation note* Encounter Date Diagnosis Assessment Notes Treatment Notes Treatment Clinical Notes Dec, Dislocation of right shoulder joint, subsequent encounter (ICD-10 - S43.004D) Patient instructed on gentle motion and strength exercise. We will consider an MRI of the shoulder to rule out a rotator cuff tear, if patient has increased pain. We will f/u in 6-8 weeks, or sooner if patient needs [facility] Other 12-20-2022 Evaluation note* Encounter Date Diagnosis [...] age range than in a younger person. [facility] Other 11-29-2022 Evaluation note* Encounter Date Diagnosis [...] follows with her PCP for hyperlipidemia management [facility] Other [id number] NotePROCEDURE: XR SHOULDER LT 2V or > HISTORY: Pain of left shoulder joint COMPARISON: None. FINDINGS: BONES:No fracture, dislocation, bone lesion. Narrowing and mild degenerative changes of the acromioclavicular joint. SOFT TISSUES:No visible soft tissue swelling. EFFUSION:None visible. OTHER: Negative. IMPRESSION: 1. No acute bone abnormality. Electronically authenticated by: ADAMS RAGSDALE Date: 2022-08-27 21:59[facility]09-26-2022 NotePROCEDURE: XR FEMUR RT HISTORY: Pain in right leg after falling COMPARISON: None. FINDINGS: BONES:Mild degenerative changes of hip joint. Right knee replacement. No fracture or dislocation. SOFT TISSUES:No visible soft tissue swelling. EFFUSION:None visible. OTHER: Negative. IMPRESSION: 1. No acute bone abnormality. Electronically authenticated by: ADAMS RAGSDALE Date: 2022-08-27 21:56[facility]09-26-2022 NotePROCEDURE: XR ELBOW RT MIN [...] by: ADAMS RAGSDALE Date: 2022-08-27 21:53[facility]09-26-2022 NotePROCEDURE: XR ELBOW RT MIN [...] by: ADAMS RAGSDALE Date: 2022-08-27 21:53[facility]06-14-2022 Evaluation note* Encounter Date Diagnosis [...] Hyperlipidemia, unspecified hyperlipidemia type (ICD-10 - E78.5) [facility] Other 07-01-2018 History general Narrative - Reported* [...] right TKA 03/04/18 Hospitalization History see above [facility] Other Evaluation + Plan note Future Appointments Appointment Date:11/21/2023 10:30:00 AM Scheduled Provider:BRIGIDA WILLOUGHBY PA-C Location:[facility] Appointment [facility]URO [facility] Future Appointments Appointment Date:02/24/2024 10:15:00 AM Scheduled Provider:Jose Snow MD Location:[facility] Appointment Type:FM Open Appointment Date:02/27/2024 11:15:00 AM Scheduled Provider:BRIGIDA WILLOUGHBY PA-C Location:[facility] Appointment Type:URO Office Visit [facility] Evaluation + Plan note Future Appointments Appointment Date:02/04/2024 11:20:00 AM Scheduled Provider:BRIGIDA WILLOUGHBY PA-C Location:[facility] Appointment Type:URO Office Visit Appointment Date:02/24/2024 10:15:00 AM Scheduled Provider:Jose Snow MD Location:[facility] Appointment Type:FM Open Appointment Date:03/03/2024 02:00:00 PM Scheduled Provider:BRIGIDA WILLOUGHBY PA-C [facility] Appointment Type:URO [facility] Future Appointments Appointment Date:03/23/2024 09:30:00 AM Scheduled Provider: Location:[facility] Appointment Type:Urology CALL PAT FT Appointment Date:03/30/2024 02:30:00 PM Scheduled Provider: Location:[facility] Appointment Type:Urology FT Appointment Date:04/28/2024 01:00:00 PM Scheduled Provider: Location:[facility] Appointment Type:FM Medicare Wellness Subsequent Appointment Date:04/28/2024 02:00:00 PM Scheduled Provider:Jose Snow MD Location:[facility] Appointment Type:FM Open Diagnostic Tests Pending * C-Peptide [facility]/24 [facility] [place] [facility] note Future Appointments Appointment Date:03/23/2024 09:30:00 AM Scheduled Provider: Location:[facility] Appointment Type:Urology CALL PAT FT Appointment Date:03/30/2024 02:30:00 PM Scheduled Provider: Location:[facility] Appointment Type:Urology FT Appointment Date:04/28/2024 01:00:00 PM Scheduled Provider: Location:[facility] Appointment Type: Medicare Wellness Subsequent Appointment Date:04/28/2024 02:00:00 PM Scheduled Provider:Jose Snow MD Location:[facility] Appointment Type:FM Open Diagnostic Tests Pending * PTH Intact 02/25/24 [facility] Future Appointments Appointment Date:03/23/2024 09:30:00 AM Scheduled Provider: Location:[facility] Appointment Type:Urology CALL PAT FT Appointment Date:03/30/2024 02:30:00 PM Scheduled Provider: Location:[facility] Appointment Type:Urology FT Appointment Date:04/28/2024 01:00:00 PM Scheduled [facility] Medicare Wellness Subsequent Appointment Date:04/28/2024 02:00:00 PM Scheduled Provider:Jose Snow MD Location:[facility] Appointment Type:FM Open [facility] evaluation noteNo InformationNort [employer] Other Evaluation noteNo assessment information available [facility] Work Phone: Evaluation note* Diagnosis 2-vessel coronary artery disease- Primary Essential hypertension Unspecified essential hypertension Mixed hyperlipidemia H/O non-ST elevation myocardial infarction (NSTEMI) Post PTCA Postsurgical percutaneous transluminal coronary angioplasty status Morbid obesity (CMS/HCC) Morbid obesity documented in this encounter [facility] Work Phone: Evaluation note* Diagnosis Onset Date Resolution Status Anemia acute Chronic kidney disease, stage 3b acute Hypertensive nephropathy acu te Hypokalemia acute Localized edema acute Neuropathy acute Type 2 diabetes mellitus with diabetic nephropathy acute Urinary incontinence acute HLD (hyperlipidemia) chronic Morbid obesity chronic [facility] Work Phone: History of Present illness [...] to lose 10-12 pounds by next time [facility] 250 DO Work Phone: History of Present [...] to lose 10-12 pounds by next time [facility] 600 DO Work Phone: Hospital course Narrative No data available for this section [facility] No data available for this section [facility] No data available for this section [facility] HospitalReason for referral (narrative)* Consultation (Routine) - Authorized Specialty Diagnoses / Procedures Referred By Radha lopez Referred To Contact Cardiology Diagnoses 2-vessel coronary artery disease Essential hypertension Mixed hyperlipidemia Procedures Follow Up In Cardiology Cinthia Vazquez MD [address] [facility] [address], [address] [address] Cinthia Vazquez MD [address] [facility] [address], [address] [place] [address] Referral ID Status Reason Start Date Expiration Date V isits Requested Visits Authorized [id number] Authorized 01/09/2024 01/08/2025 1 1 [facility] Work Phone: Summary Purpose Family History No [...] Unknown Kidney disorder Unknown Myocardial infarction Unknown Relationship Condition Age at Onset Recorded Date/T ajith Not Specified Coronary artery disease Unknown Kidney disorder Unknown Myocardial infarction Unknown brother Diabetes mellitus Unknown Family history of mental disorder Unknown daughter Heart disease Unknown father Unknown Hypertension Unknown family member Unknown Not Specified Alzheimer's disease Unknown Unknown Advance Directives No Advanced Directives Records Found Advance Directive Response Recorded Date/ Time Advance Directives No February 13 018 1:46pm Chief Complaint MALCOM KNOWLES is being seen for a 9 month follow-up of.MALCOM KNOWLES is being seen for a 9 month follow-up of. Chief Complaint and Reason for Visit Chief Complaint M25.512 Chief Complaint RENAL 6 month Follow up Reason for Visit Anemia Chronic kidney disease, stage 3b Hypertensive nephropathy Hypokalemia Localized edema Neuropathy Type 2 diabetes mellitus with diabetic nephropathy Urinary incontinence HLD (hyperlipidemia) Morbid obesity Additional Source Comments INFORMATION SOURCE (unrecogn ized section and content) DATE CREATED AUTHOR 01/19/2021 [facility] DATE CREATED AUTHOR AUTHOR'S ORGANIZ ATION 04/07/2023 [facility] DATE CREATED AUTHOR AUTHOR'S ORGANIZ ATION 04/07/2023 [employer] DATE CREATED AUTHOR AUTHOR'S ORGANIZ ATION 05/11/2023 [facility] DATE CREATED AUTHOR AUTHOR'S ORGANIZ ATION 08/08/2023 [facility] DATE CREATED AUTHOR AUTHOR'S ORGANIZ ATION 01/13/[address] [facility] [place] [place] Ambulatory DATE CREATED AUTHOR AUTHOR'S ORGANIZ ATION 03/24/[address] [facility] REASON FOR VISIT (unrecogniz ed section and content) Reason Comments Follow-up 9 months Patient Care team informatio n (unrecognized section and content) Team Status: Active Member Role Status Dates Dusty Walters MD Primary Care Provider Active Team Status: Active Member Role Status Dates Dusty Walters MD Primary Care Provider Active S tart: February 24, 2024 Chip Craft MD Attending Provider Active Star t: February 24, 2024 Team Status: Inactive Member Role Status Dates Dusty Walters MD Primary Care Provider Active S tart: February 25, 2024 End: February 25, 2024 Chip Craft MD Attending Provider Active Star t: February 25, 2024 End: February 25, 2024 Team Status: Inactive Member Role Status Dates Dusty Walters MD Primary Care Provider Active Lizandro Martins MD Attending Provider Active Team Status: Inactive Member Role Status Dates Dusty Walters MD Primary Care Provider Active Anjana Pal APRN Attending Provider Active Record Clerk Relationship Specialty Start Date End Date Jose Snow MD [address] [facility] [address] [place] [address] PCP - General Family Medicine 01/09/24 Goals [...] BE BASED ON THE PRIMARY CLINICAL RECORDS. [facility] [employer] [facility]. provides no warranty or guarantee of the accuracy or completeness of information in this document.
[2024-03-28 09:38] VITALS: BP 178/79; PULSE 75; O2SAT 98
== END 2024-03-28 09:39 | disposition home or self-care (01) ==
PROVIDERS: Emergency Provider Emergency Medicine; PCP Family Medicine
DX: S09.8XXA Other specified injuries of head, initial encounter (principal); E66.9 Obesity, unspecified; Z68.43 Body mass index [BMI] 50.0-59.9, adult; Z66 Do not resuscitate; Z79.02 Long term (current) use of antithrombotics/antiplatelets; Z79.899 Other long term (current) drug therapy; Z79.4 Long term (current) use of insulin; W19.XXXA Unspecified fall, initial encounter
CPT/HCPCS: 70450; 99284

== ENCOUNTER 2024-05-27 15:07 | Outpatient (REF) | payer MEDICARE, OTHER, SELFPAY | END 2024-05-27 15:08 | disposition home or self-care (01) | LOC: LAB 15:07 | PROVIDERS: PCP Family Medicine; Visit Provider Nurse Practitioner | DX: R31.9 Hematuria, unspecified (principal) | CPT/HCPCS: 87086 ==

== ENCOUNTER 2024-06-08 09:33 | Outpatient (OUT) | payer MEDICARE, OTHER, SELFPAY ==
--- OUTSIDE RECORDS SUMMARY | 2024-06-08 09:41 | XMS_ITS | CCD ---
Author Organization 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 Primary Care Physician Briigda George Unavailable Tanika Lopez Unavailable MD Dusty Walters Primary Care Provider MD Lizandro Martins Attending Provider DARRICK Pal Attending Provider Anjana Pal Unavailable Lizandro Martins Admitting Unavailable Lizandro Martins Attending Unavailable Dusty Walters Primary Care Unavailable Anjana Pal Admitting Unavailable Anjana Pal Attending Unavailable Dusty Walters Primary Care Unavailable Jose Snow MD Primary Care Provider Jose Snow MD Primary Care Provider CINTHIA VAZQUEZ Attending Unavailable JOSE SNOW Primary Care Unavailable CINTHIA VAZQUEZ Attending Unavailable JOSE SNOW Primary Care Unavailable Cinthia Vazquez MD Primary Care Provider [phone] MICHEAL PETERS Attending Unavailable MICHEAL PETERS Referring Unavailable CINTHIA VAZQUEZ Primary Care Unavailable MICHEAL PETERS Admitting Unavailable Adrian, SHASHANK Pereira Attending Unavailable Jose Snow Attending Unavailable VEDA GRAHAM Attending Unavailab CHIP Burgess Referring Unavailable VEDA GRAHAM Attending Unavailab Jose Mcgraw Attending Unavailable Jose Snow Attending Unavailable Jose Snow Attending Unavailable Jose Snow Attending Unavailable VEDA GRAHAM Attending Unavailab Jose Mcgraw Attending Unavailable Adrian, SHASHANK Pereira Attending Unavailable Magui Sam Attending Unavailable CHERELLESCHIP Referring Unavailable FARTUNVEDA AMOS Referring Unavailab VEDA Byrd Attending Unavailab Joe Tovar Admitting Unavailable Joe BOOTH Attending Unavailable Joe BOOTH Referring Unavailable Joe BOOTH Admitting Unavailable Joe BOOTH Attending Unavailable Joe BOOTH Referring Unavailable Jose Snow Attending Unavailable Jose Snow Admitting Unavailable Jose Snow Admitting Unavailable Jose Snow Attending Unavailable ARNULFO ZHU Consulting Unavailable MD ARNULFO ZHU Consulting Unavailable ARNULFO ZHU Admitting Unavailable ARNULFO ZHU Attending Unavailable VEDA GRAHAM Attending Unavailab Joe Tovar Attending Unavailable Jose Snow Attending Unavailable Allergies Allergy Classification Reported Allergen(s) Allergy Type Date of Onset Reaction(s) Facility Sulfonamides (antibiotic) (1 source) Sulfonamides (Antibiotic); Translations: [SULFA (SULFONAMIDE ANTIBIOTICS)] Drug Allergy 12-16-19 24 [facility] 3 Repository (12 sources) Sulfonamides (Antibiotic); Translations: [Sulfa Drugs] Allergy to drug (finding) Unknown (qualifier value) [facility] (2 sources) FLU; Translations: [FLU] Allergy to drug (finding) [facility] 250 DO Work Phone: (9 sources) Sulfonamides (Antibiotic) Drug allergy Unknown [facility] Other (10 sources) Influenza Vac Recom CARREON Quad PF Drug allergy 02-25-20 24 Unknown, Unknown Reaction [facility] (2 sources) Sulfonamides (Antibiotic) Drug allergy (disorder) [facility] Repository (2 sources) Flu Vaccine [id number] (3 yr +) Drug allergy (disorder) 01-18-20 16 [facility] Repository (6 sources) Sulfonamides (Antibiotic); Translations: [Sulfa (Sulfonamide Antibiotics)] Allergy to substance 03-31-20 19 Unknown [facility] (4 sources) Influenza Virus Vaccines; Translations: [Influenza Virus Vaccines] Allergy to substance 03-31-20 19 Hx. [place] ; told no flu vaccines [facility] (8 sources) influenza A virus A//[id number] (H1N1) antigen / influenza A virus A//[id number] (H3N2) antigen / influenza B virus B/Winn antigen / influenza B virus B/ antigen; Translations: [influenza virus vaccine] Drug Allergy [facility] Comment on above: contraindicated due to guilian barre (3 sources) Flu Medicine; Translations: [FLU MEDICINE] Drug Allergy 12-16-19 24 Unknown [facility] (1 source) Haemophilus influenzae type b Drug Allergy 12-26-19 24 [facility] (1 source) Sulfonamides (Antibiotic) Propensity to adverse reactions to drug 12-26-19 [facility] (1 source) influenza virus vaccine, inactivated; Translations: [influenza virus vaccine, inactivated] Propensity to adverse reactions (disorder) [facility] Repository Medications Current Medications Medication Drug Class(es) Dates Sig (Normalized) Sig (Original) 3 ML semaglutide 1.34 MG/ML Pen Injector [Ozempic] (1 source) Start: 05-15-2024 Ozempic (1 mg dose) 4 mg/3 mL subcutaneous solution 1 mg Start Date: 05/15/24 Status: Ordered acetaminophen 500 mg oral capsule (20 sources) [...] 12:28pm take 1 tablet by fermín th every six hours as needed for pain acetaminophen (TYLENOL) 500 MG tablet Take 1 tablet by mouth every 6 hours as needed for Pain 0 Suspended take 1 tablet by fermín th twice daily acetaminophen (Tylenol) 500 mg tablet Take 1 tablet (500 mg) by mouth 2 times a day. Active acetaminophen 325 mg / oxyCODONE hydrochloride 5 mg oral tablet (20 sources) Opioid Agonist Start: 05-16-2023 take 1 tablet by mouth every six hours for pain acetaminophen-oxycodone 300 mg-5 mg oral tablet 1 tab(s), Oral, q6hr for pain, Refill(s) 0 Start Date: 05/16/23 Status: Ordered Start: 12-25-2021 End: 05-08-2024 take 1 tablet by mouth every six [...] 12:00am March 13, 2018 10:20am Alpha Lipoic (1 source) Start: 05-15-2024 Alpha Lipoic 600 mg, Oral Start Date: 05/15/24 Status: Ordered Alpha Lipoic Acid 200 MG (9 sources) take 3 capsules by mouth once daily Alpha Lipoic Acid 200 MG 3 capsules Orally once a day Active Alpha Lipoic Acid 600 mg oral capsule (7 sources) Start: 09-09-2023 take 1 capsule by mouth once daily [...] Date: 05/16/23 Status: Ordered biotin 10 mg oral tablet (20 sources) Start: 05-15-2024 take 1 tablet by mouth once daily biotin 10 mg oral tablet 10 mg = 1 tab(s), Oral, Daily Start Date: 05/15/24 Status: Ordered Start: 02-25-2024 take 77062 ug by fermín th twice daily Biotin Active 66428 MCG PO Twice daily February 25, 2024 12:00am Start: 09-09-2023 take 1 tablet by fermín th twice daily biotin 10 mg oral tablet 10 mg = 1 tab(s), Oral, BID, # 30 tab(s), Refills(s) 0 Start Date: 09/09/23 Status: Ordered Start: 06-27-2018 End: 04-09-2019 take 21727 ug by mouth twice daily Biotin Discontinued 32441 MCG PO Twice daily June 27, 2018 12:00am April 09, 2019 9:42am Start: 02-18-2018 End: 03-13-2018 take 1000 ug by mouth twice daily Biotin Discontinued 1000 MCG PO Twice daily February 18, 2018 12:00am March 13, 2018 10:19am take 1000 ug by mout h once daily Biotin 1000 MCG CHEW Take by mouth daily 0 Suspended take 1 tablet by fermín th twice daily Biotin 11293 MCG 1 tablet Orally twice a day Active take 1 tablet by fermín every twelve hours Biotin 1000 MCG 1 tablet Orally twice a day Active brexpiprazole 0.5 mg oral tablet (3 sources) Atypical Antipsychotic Start: 05-15-2024 take 2 tablets by mouth once daily Rexulti 0.5 mg oral tablet mg tab(s), Oral, Daily Start Date: 05/15/24 Status: Ordered take 1 tablet by mouth once martina y brexpiprazole (REXULTI) 0.5 MG TABS tablet Take 1 tablet by mouth daily 0 Suspended calcium carbonate 500 mg chewable tablet (20 [...] 0 Refills: 0 Ordered: 04-Apr-2023 DO Active cephalexin 500 mg oral capsule (1 source) Cephalosporin Antibacterial Start: 03-19-2024 take 1 capsule by mouth every twelve hours Keflex 500 mg Cap 500 mg = 1 cap(s), Oral, q12hr, # 20 cap(s), Refills(s) 0, Pharmacy: [facility], 160, cm, 02/24/24 10:12:00 EDT, Height/Length Dosing, 135.8, kg, 02/24/24 10:12:00 EDT, Weight Dosing Start Date: 03/19/24 Status: Ordered CertaVite with Antioxidants (5 sources) Start: 05-15-2024 CertaVite with Antioxidants Oral, Daily Start Date: 05/15/24 Status: Ordered Start: 02-24-2024 take 1 tablet by fermín th twice daily CertaVite with Antioxidants 1 tab(s), [...] 2018 12:00am March 13, 2018 10:19am take 0.5 tablet by m outh once daily cetirizine (ZyrTEC) 10 mg tablet Take 0.5 tablets (5 mg) by mouth once daily. Active cholecalciferol 0.025 mg oral capsule (20 sources) Vitamin D Start: 02-25-2024 take 25 ug by mouth once daily Cholecalciferol (Vitamin D3) Active 25 MCG PO Daily February 25, 2024 12:00am Start: 04-09-2019 End: 02-25-2024 take 1 tablet by mouth three times daily Cholecalciferol (Vitamin D3) (Vitamin D3) 1,000 unit Tablet Discontinued 1000 UNIT PO Three times daily April 09, 2019 12:00am February 25, 2024 11:42am Start: 03-16-2019 End: 04-09-2019 take 1 capsule by mouth three times daily Cholecalciferol (Vitamin D3) (Vitamin D3) 1,000 unit Capsule Discontinued 1000 UNIT PO Three times daily March 16, 2019 12:00am April 09, 2019 9:42am Start: 03-13-2018 End: 05-07-2024 take 3 tablets by mouth once daily Cholecalciferol (Vitamin D3) (Vitamin D3) 1,000 unit tablet Discontinued 3000 UNIT PO Daily June 27, 2018 10:44am March 16, 2019 2:38pm Start: 02-18-2018 End: 03-13-2018 take 3 capsules by mouth once daily Cholecalciferol (Vitamin D3) (Vitamin D3) 1,000 unit Capsule Discontinued 3000 UNIT PO Daily 0 March 06, 2018 12:29pm March 13, 2018 10:19am Cholecalciferol (VITAMIN D3) 50 MCG (2000 UT) CAPS Take by mouth 0 Suspended take 1 tablet by fermín th once daily cholecalciferol (Vitamin D-3) 25 MCG (1000 UT) tablet Take 1 tablet (1,000 Units) by mouth once daily. Active take 1 tablet by fermín th every twenty-four hours Vitamin D (Cholecalciferol) 25 MCG (1000 UT) 1 tablet Orally Once a day Active chondroitin sulfates 400 mg / glucosamine hydrochloride 500 mg oral tablet (1 source) take 1 tablet by mouth twice daily glucosamine-chondroitin 500-400 mg tablet Take 1 tablet by mouth 2 times a day. Active ciprofloxacin 500 mg oral tablet (6 sources) Quinolone Antimicrobial Start: 2023 Cipro 500 mg Tab 500 mg = 1 tab(s), Oral, BID, Take twice daily x5 days starting the day prior to the procedure, # 10 tab(s), Refills(s) 0, Pharmacy: [facility], 160, cm, 02/04/24 11:44:00 EST, Height/Length Dosing, 138, kg, 02/04/24 11:44:00 EST, Weight Dosing Start Date: 02/05/24 Status: Ordered Start: 11-26-2023 Cipro 500 mg T ab See Instructions, Take 1 tab day prior to procedure and 1 tab day of procdure - afterwards, # 2 tab(s), Refills(s) 0, Pharmacy: [facility], 160, cm, 11/21/23 10:42:00 EST, Height/Length Dosing, 138, kg, 11/21/23 10:42:00 EST, Weight Dosing Start Date: 11/26/23 Status: Ordered Start: 05-16-2023 End: 05-23-2023 take 1 tablet by mouth every twelve hours Cipro 500 mg Tab 500 mg = 1 tab(s), Oral, q12hr, X 7 day(s), # 14 tab(s), Refills(s) 0, Pharmacy: [facility], 158, cm, 05/16/23 14:43:00 EDT, Height/Length Dosing, 130.6, kg, 05/16/23 14:43:00 EDT, Weight Dosing Start Date: 05/16/23 Stop Date: 05/23/23 Status: Ordered clopidogrel 75 mg oral tablet (20 sources) [id number] Platelet Inhibitor Start: 04-04-2022 take 1 tablet by mouth once daily Plavix 75 mg Tab 75 mg = 1 tab(s), Oral, Daily, Refills(s) 0 Start Date: 05/16/23 Status: Ordered Start: 03-16-2019 End: 04-19-2020 take 75 mg by mouth once daily Clopidogrel Discontinue d 75 MG PO Daily April 09, 2019 12:00am April 19, 2020 2:56pm Cranberry preparation (20 sources) Non-Standardized Food Allergenic Extract, Non-Standardized Plant Allergenic Extract Start: 05-15-2024 Cranberry 450 mg Start Date: 05/15/24 Status: Ordered Start: 02-25-2024 take 500 mg by mouth once martina y Cranberry Active 500 MG PO Daily February 25, 2024 12:00am Start: 05-16-2023 take 1 tablet by fermín once daily Cranberry oral tablet See Instructions, Refill(s) 0, 450mg orally once a day Start Date: 05/16/23 Status: Ordered Start: 05-16-2023 Cranberry oral tablet Refill(s) 0 Start Date: 05/16/23 Status: Ordered Cranberry 450 MG TABS tablet Take 2 tablets by mouth 0 Suspended Cranberry Concen trate 500 MG as directed Orally Active D-Mannose (1 source) Start: 02-25-2024 take 2000 mg by mout h once daily D-Mannose Active 2000 MG PO daily February 25, 2024 12:00am D-Mannose (1 source) Start: 05-15-2024 D-Mannose D-Ma nnose, 500mh Start Date: 05/15/24 Status: Ordered D-MANNOSE ORAL (2 sources) D-MANNOSE ORAL T ildefonso by mouth. Active D-MANNOSE ORAL T ildefonso by mouth. 0 Active docusate sodium 100 mg oral capsule (20 sources) Start: 05-16-2023 take 1 capsule by mo [facility] once daily as needed for constipation Colace 100 mg Cap 100 mg = 1 cap(s), Oral, Daily, PRN for constipation, # 20 cap(s), Refills(s) 0 Start Date: 05/16/23 Status: Ordered Start: 04-09-2019 End: 02-25-2024 take 100 mg by mouth twice daily Docusate Sodium Discontinued 100 MG PO Twice daily April 09, 2019 12:00am February [...] Refills(s) 0 Start Date: 05/16/23 Status: Ordered dulaglutide (20 sources) GLP-1 Receptor Agonist Start: 05-15-2024 Trulicity Pen SubCutaneous, qWeek Start Date: 05/15/24 Status: Ordered Start: 01-02-2023 End: 05-07-2024 inject 1.5 mg by subcutaneous injection every week Trulicity 1.5 mg/0.5 mL pen injector injection Inject 1.5 mg under the skin 1 (one) time per week. 01/02/2023 Active Dulaglutide (Trulicity) 3 mg/0.5 mL pen injector [...] 2018 10:44am fluconazole 150 mg oral tablet (9 sources) Azole Antifungal Start: 04-01-2023 take 1 tablet by mouth once Diflucan 150 mg Tab 150 mg = 1 tab(s), Oral, Once, # 1 tab(s), Refills(s) 0, Pharmacy: [facility] Start Date: 04/01/23 Status: Ordered Freestyle Bang 2 sensors (8 sources) Start: 07-15-2023 Freestyle LIbr e 2 [...] afternoon and bedtime. take 1 capsule by [facility] every eight hours Gabapentin 300 MG 1 [...] Refills(s) 0 Start Date: 05/16/23 Status: Ordered Gpgyzxna-Llfwz-Titap-Cf Borate (IdeaSquares) 750 mg-100 mg- 1.65 mg-108 mg tablet (1 source) Start: 02-25-2024 take 1 tablet by mouth once daily Uqrmfseq-Bwybk-Yaokq-Cf Borate ([facility] [place] 750 mg-100 mg- 1.65 mg-108 mg tablet Active 2 TAB PO daily February 25, 2024 12:00am glucosamine hydrochloride 1500 mg oral tablet (8 sources) Start: 09-09-2023 take 2 tablets by mouth once daily at bedtime glucosamine hydrochloride 1500 mg oral tablet See Instructions, Refill(s) 0, 2 tab(s) Oral Daily at bedtime Start Date: 09/09/23 Status: Ordered handicap placard (5 sources) Start: 01-02-2024 handicap placard handicap placard, See Instructions, 1 EA, 0, Duration 5 years, Supply Start Date: 01/02/24 Status: Ordered hydrocortisone 25 mg/ml topical cream (14 sources) Corticosteroid Start: 11-20-2023 hydrocortisone Top 2.5% Crm See Instructions, Refill(s) 0, apply rectally twice daily as needed for hemorrhoids Start Date: 11/20/23 Status: Ordered Start: 09-09-2023 hydrocortisone 2.5% Rectal Crm w/Appl 1 teresa, Rectal, BID, 30 gram, Refill(s) 0, us as needed Start Date: 09/09/23 Status: Ordered hydrocortisone acetate 10 mg/ml / pramoxine hydrochloride 10 mg/ml rectal foam (5 sources) Corticosteroid Start: 12-16-2023 Proctofoam HC rectal foam 1 teresa, Rectal, TID, 10 gram, Refill(s) 0, [facility] [place], 160, cm, 12/16/23 10:57:00 EST, Height/Length [...] Refills(s) 0 Start Date: 05/16/23 Status: Ordered NovoLog (20 sources) Insulin Analog Start: 05-15-2024 NovoLog SubCut diony TIDAC Start Date: 05/15/24 Status: Ordered Start: 05-16-2023 Insulin Aspart FlexPen [...] 13, 2018 12:00am June 27, 2018 10:42am Insulin Aspart ( NOVOLOG FLEXPEN SC) Inject into the skin Sliding scale 0 Suspended End: 05-08-2024 insulin aspart (NovoLOG U-10 0 Insulin aspart) 100 unit/mL injection Inject under the skin 3 times a day before meals. Take as directed per insulin instructions. 05/08/2024 Discontinued (Therapy completed) NovoLOG FlexPen 100 UNIT/ML as directed Subcutaneous [...] 06, 2018 12:29pm March 13, 2018 10:20am insulin glargine (BASAGLAR KWIKPEN) 100 UNIT/ML injection pen Inject 30 Units into the skin nightly 0 Suspended Basaglar KwikPen 100 UNIT/ML 12 units Subcutaneous [...] 9:49am loperamide hydrochloride 2 mg oral tablet (8 sources) Opioid Agonist Start: 09-09-2023 take 1 tablet by mouth once as needed Immodium A-D 2 mg Tab See Instructions, 1 tablet orally as neededafter each loose stool max 16 a day, Refills(s) 0 Start Date: 09/09/23 Status: Ordered take 1 capsule by mo [facility] four times daily as needed for diarrhea loperamide (IMODIUM) 2 MG capsule Take 1 capsule by mouth 4 times daily as needed for Diarrhea 0 Suspended losartan potassium 25 mg oral tablet (8 sources) Angiotensin 2 Receptor Jus Start: 05-08-2024 End: 05-08-2025 losartan 25 mg Tab 25 mg = 1 tab(s) Start Date: 05/15/24 Status: Ordered Start: 03-11-2022 take 0.5 tablet by m out once daily Losartan Potassium 25 MG Oral Tablet TAKE 1/2 TABLET DAILY. Quantity: 45 Refills: 3 Ordered: 12-Mar-2022 Cinthia Vazquez MD Start : 11-Mar-2022 Active memantine hydrochloride 10 mg oral tablet (20 sources) J-slquts-X-aspartate Receptor Antagonist Start: 01-29-2022 take 1 tablet by mouth twice daily memantine 10 mg Tab 10 mg = 1 tab(s), Oral, BID, Refills(s) 0 Start Date: 05/16/23 Status: Ordered Milk of Magnesia (7 sources) Start: 09-09-2023 take 2400 mg by mouth once daily as needed for constipation Milk of Magnesia 2,400 mg, Oral, Daily, as needed for constipation, Refills(s) 0 Start Date: 09/09/23 Status: Ordered 24 hr mirabegron 50 mg extended release oral tablet (4 sources) beta3-Adrenergic Agonist Start: 12-23-2023 End: 05-08-2024 take 50 mg by mouth once daily Myrbetriq 50 mg, Oral, Daily, Refills(s) 0 Start Date: 12/23/23 Status: Ordered MiraLax 17 GM/SCOOP (9 sources) MiraLax 17 GM/SCOOP as directed Orally Active Move Free Joint Health Advance - (9 sources) take 2 tablets by mouth once daily Move Free Joint Health Advance - 2 tablets Orally once a day Active Yuiexuql-Gyy-Br-L ycopen-Lutein (Certavite Senior) 0.4 mg-300 mcg- 250 mcg tablet (1 source) Start: 02-25-2024 take 1 tablet by mouth once daily Wefndnln-Xli-Qd-L ycopen-Lutein (Certavite Senior) 0.4 mg-300 mcg- 250 mcg tablet Active 1 TAB PO Daily February 25, 2024 12:00am multivitamin with minerals iron-free (Centrum Silver) (1 source) take 1 tablet by mouth once daily multivitamin with minerals iron-free (Centrum Silver) Take 1 tablet by mouth once daily. Active Wishberg's BoThinktwicey Probiotic (1 source) Start: 05-15-2024 Wishberg's Bounty Probiotic Oral, Daily Start Date: 05/15/24 Status: Ordered nitrofurantoin, macrocrystals 25 mg / nitrofurantoin, monohydrate 75 mg oral capsule (1 source) Nitrofuran Antibacterial Start: 12-16-2023 End: 12-26-2023 take 1 capsule by mouth twice daily nitrofurantoin macrocrystals-mon ohydrate 100 mg Cap 100 mg = 1 cap(s), Oral, BID, X 10 day(s), # 20 cap(s), Refills(s) 0, Pharmacy: [facility], 160, cm, 12/16/23 10:57:00 EST, Height/Length Dosing, 130, kg, 12/16/23 10:53:00 EST, Weight Dosing Start Date: 12/16/23 Stop Date: 12/26/23 Status: Ordered nitroglycerin 0.4 mg sublingual tablet (17 sources) Nitrate Vasodilator Start: 04-19-2020 End: 02-25-2024 nitroglycerin 0.4 mg sublingual Tab 0.4 mg = 1 tab(s), SubLingual, q5min, PRN for chest pain, # 100 tab(s), Refills(s) 0 Start Date: 05/16/23 Status: Ordered Normal saline (1 source) Saline Nasal [place] 0.65 % as directed Nasally Active ondansetron 4 mg oral tablet (12 sources) Serotonin-3 Receptor Antagonist Start: 05-16-2023 take 1 tablet by mouth every six hours ondansetron 4 mg Tab 4 mg = 1 tab(s), Oral, q6hr, Refills(s) 0 Start Date: 05/16/23 Status: Ordered take 1 tablet by fermín every eight hours as needed for nausea ondansetron (ZOFRAN) 4 MG tablet Take 1 tablet by mouth every 8 hours as needed for Nausea or Vomiting 0 Suspended take 2 tablets by mo [facility] every eight hours as needed ondansetron (Zofran) 4 mg tablet Take 2 tablets (8 mg) by mouth every 8 hours if needed for nausea or vomiting. Active 24 hr oxybutynin chloride 15 mg extended release oral tablet (16 sources) Cholinergic Muscarinic Antagonist Start: 03-09-2022 End: 05-07-2024 take 1 tablet by mouth once daily oxybutynin XL (Ditropan-XL) 15 mg 24 hr tablet Take 1 tablet (15 mg) by mouth once daily. 0 03/09/2022 01/09/2024 Discontinued (Other) Physical therapy treat and evaluate, properly sized walker, (7 sources) Start: 08-20-2023 Physical thera py treat and evaluate, properly sized walker, Physical therapy treat and evaluate, properly sized walker,, See Instructions, 1 EA, 0, see above, Supply Start Date: 08/20/23 Status: Ordered polyethylene glycol 3350 29805 mg powder for oral solution (8 sources) Osmotic Laxative Start: 02-25-2024 Polyethylene Glycol 3350 (Miralax) 17 gram/dose powder Active 17 GM PO Every 48 hours February 25, 2024 12:00am Start: 09-09-2023 take 17 g by mouth once daily polyethylene glycol 3350 17 gm, Oral, Daily, Refill(s) 0, dissolve in 8ozs of water Start Date: 09/09/23 Status: Ordered prednisoLONE acetate 10 mg/ml ophthalmic suspension (2 sources) Corticosteroid take 1 drop(s) into the eye(s) four times daily prednisoLONE acetate (Pred-Forte) 1 % ophthalmic suspension 1 drop 4 times a day. Active PreserVision AREDS 2 (8 sources) Start: 05-15-2024 PreserVision AREDS 2 Chewed, BID Start Date: 05/15/24 Status: Ordered Start: 09-09-2023 PreserVision A REDS 2 1 tab(s), Chewed, Daily, Refill(s) 0 Start Date: 09/09/23 Status: Ordered saccharomyces boulardii 250 mg oral capsule (5 sources) Start: 02-24-2024 take 1 capsule by mouth once daily as needed Florastor 250 mg oral capsule 250 mg = 1 cap(s), Oral, Daily, PRN for loose stool, # 10 cap(s), Refills(s) 0 Start Date: 02/24/24 Status: Ordered take 1 capsule by mouth twice da lexus saccharomyces boulardii (Florastor) 250 mg capsule Take 1 capsule (250 mg) by mouth 2 times a day. Active semaglutide (OZEMPIC) 1 mg/dose (4 mg/3 mL) pen injector (1 source) inject 1 mg by subcutaneous injection every week semaglutide (OZEMPIC) 1 mg/dose (4 mg/3 mL) pen injector Inject under the skin 1 (one) time per week. Active Sodium Chloride (7 sources) Start: 09-09-2023 Saline Mist 0.65% nasal spray See Instructions, Refill(s) 0, 1 spray each nostril every shift, may self administer Start Date: 09/09/23 Status: Ordered Thera M Plus - (9 sources) Thera M Plus - a s directed Orally Active thioctic acid 200 mg oral capsule (12 sources) Start: 02-25-2024 take 600 mg by [...] 18, 2018 12:00am March 06, 2018 12:28pm Alpha-Lipoic Aci d 600 MG CAPS Take by mouth daily 0 Suspended tobramycin 3 mg/ml ophthalmic solution (4 sources) Aminoglycoside Antibacterial Start: 02-04-2024 Tobrex Oph Sherry 0.3% Soln-Opth drop(s), QID Start Date: 02/04/24 Status: Ordered Tylenol Extra Strength 500 MG (9 sources) Start: 06-03-2018 take 2 tablets by mouth once daily in the morning as needed Tylenol Extra Strength 500 MG 2 tablet as needed Orally once a day in the am Jun, Active 24 hr venlafaxine 75 mg extended release oral capsule (18 sources) Serotonin and Norepinephrine Reuptake Inhibitor Start: 02-27-2024 take 1 capsule by mouth once daily venlafaxine 75 mg Cap-ER 75 mg = 1 cap(s), Oral, Daily, Refills(s) 0 Start Date: 02/27/24 Status: Ordered Start: 01-02-2023 take 1 capsule by [facility] once daily venlafaxine XR (Effexor-XR) 150 mg 24 hr capsule Take 1 capsule (150 mg) by mouth once daily. 01/02/2023 Active venlafaxine (EFF EXOR XR) 150 MG extended release capsule Take 75 mg by mouth daily 0 Suspended vit C/E/Zn/coppr/lutein/zeax an (PRESERVISION AREDS-2 ORAL) (2 sources) vit C/E/Zn/coppr /lutein/zeaxan (PRESERVISION AREDS-2 ORAL) Take by mouth. Active vit C/E/Zn/coppr /lutein/zeaxan (PRESERVISION AREDS-2 ORAL) Take by mouth. 0 Active Vitamin B 12 500 MCG (9 sources) take 2 tablets by mouth once daily Vitamin B 12 500 MCG 2 tablet Orally Once a day Active vitamin B12 (20 sources) Vitamin B12 Start: 02-25-2024 take 1000 [...] tablet (1,000 mcg) by mouth once daily. Active Vitamin B12 1000 mcg Tab (8 sources) Start: 09-09-2023 take 1 tablet by mouth once daily Vitamin B12 1000 mcg Tab 1,000 mcg = 1 tab(s), Oral, Daily, Refills(s) 0 Start Date: 09/09/23 Status: Ordered Vitamin D-3 1000 UNIT (5 sources) take 1 capsule by mouth once daily Vitamin D-3 1000 UNIT 1 capsule Orally Once a day Active Vitamin D3 1000 intl units (25 mcg) Tab (8 sources) Start: 09-09-2023 take 1 tablet by mouth once daily Vitamin D3 1000 intl units (25 mcg) Tab 25 mcg = 1 tab(s), Oral, Daily, Refills(s) 0 Start Date: 09/09/23 Status: Ordered Vitamins A,C,M-Zqzy-Jgqwci (Preservision Areds) 4,296 mcg-226 mg-90 mg capsule (1 source) Start: 02-25-2024 take 1 capsule by mouth twice daily Vitamins A,C,B-Syhe-Oodmzl (Preservision Areds) 4,296 mcg-226 mg-90 mg capsule Active 1 CAP PO Twice daily February 25, 2024 12:00am zinc oxide 0.2 mg/mg topical ointment (8 sources) Start: 09-09-2023 zinc oxide Top 20% [...] Discontinued 81 MG PO Twice martina y 30 March 13, 2018 12:00am June 27, 2018 10:38am Start: 02-18-2018 End: 03-13-2018 take 325 mg by mouth once daily Aspirin,Buffd-Calcium Carb-Mag Discontinued 325 MG PO Daily February 18, 2018 12:00am March 13, 2018 10:19am take 1 tablet by fermín th every twenty-four hours Aspirin Adult Low Dose 81 MG 1 tablet Orally Once a day Not-Taking bifidobacterium animalis [id number] unt / lactobacillus acidophilus [id number] unt oral capsule (1 source) Probiotic Produc t (FLORASTOR ADVANCED) CAPS Take by mouth 0 Suspended 24 hr buPROPion hydrochloride 300 mg extended release oral tablet (18 sources) Aminoketone Start: 02-18-2018 End: 02-25-2024 take 300 mg by mouth once daily Bupropion Hcl Discontinued 300 MG PO Daily June 27, 2018 10:44am April 09, 2019 9:42am cyclopentolate hydrochloride 10 mg/ml ophthalmic solution (2 sources) Start: 05-11-2024 End: 05-11-2024 cyclopentolate (CYCLOGYL) 1 % ophthalmic solution 1 drop Start: 05-11-2024 End: 05-11-2024 cyclopentolate (CYCLOGYL) 1 % ophthalmic solution D-Mannose 500 MG CAPS (1 source) take 4 capsules by mouth once daily D-Mannose 500 MG CAPS Take 2,000 mg by mouth daily 0 Suspended diclofenac sodium 0.01 mg/mg topical gel (20 sources) Nonsteroidal Anti-inflammatory Drug Start: 04-09-20 End: 02-25-20 apply 1 g topically twice daily Diclofenac [...] 18, 2018 12:00am March 13, 2018 10:19am FreeUbookooyle Bang 2 system (7 sources) Start: 07-15-2023 [employer] Libr e 2 system Freestyle Bang 2 system, See Instructions, 1 EA, 0, pt to check BS 4 times per day, Supply Start Date: 07/15/23 Status: Ordered Opxezqgc-Iwclk-Ipvfg-C f Borate (IdeaSquares) 750 mg-100 mg- 1.65 mg-108 mg Tablet (6 sources) Start: 06-27-2018 End: 04-09-2019 take 1 tablet by mouth once daily Qklgkhur-Rmsdx-Uumrq-Cf Borate (IdeaSquares) 750 mg-100 mg- 1.65 mg-108 mg Tablet Discontinued 2 TAB PO Daily June 27, 2018 12:00am April 09, 2019 9:42am Start: 02-18-2018 End: 03-06-2018 take 1 tablet by mouth once daily Zyxzbgeb-Hrfws-Urtau-Cf Borate (Affymax) 750 mg-100 mg- 1.65 mg-108 mg Tablet Discontinued 2 TAB PO Daily February 18, 2018 12:00am March 06, 2018 12:28pm Giwrvlarmsh-Oxxiigqlm-Ksm C-Mn (GLUCOSAMINE 1500 COMPLEX PO) (1 source) Glucosamine-Severiano droit-Vit C-Mn (GLUCOSAMINE 1500 COMPLEX PO) Take 3,000 mg by mouth at bedtime 0 Suspended glyBURIDE 5 mg oral tablet (9 sources) Sulfonylurea Star t: 01-31 18 End: 03-02 take 5 mg by mouth once daily Glyburide Discontinued 5 MG PO Daily June 27, 2018 10:44am March 16, 2019 2:26pm Home health physical therapy evaluatoin and treatment (7 sources) Star t: 08-03 Home health physical therapy evaluatoin and treatment Home health physical therapy evaluatoin and treatment, See Instructions, 1 EA, 0, HH PT evaluation and treatment, Supply Start Date: 08/23/23 Status: Ordered hydrOXYzine pamoate 25 mg oral capsule (18 sources) Antihistamine Star t: 03-04 End: 01-31 take 25 mg by mouth every three hours Hydroxyzine Pamoate Discontinued 25 MG PO Q3H 60 April 09, 2019 12:00am February 25, [...] HYLAN G-F 20 (20 sources) Start: 06-20-2017 SkyBridgevisc Jun 6 mL Start: 06-13-2017 Synvisc Jun [...] 13, 2018 12:00am June 27, 2018 10:43am Magnesium (3 sources) Start: 03-16-2019 End: 03-16-2019 take 500 mg by mouth once daily Magnesium Discontinued 500 MG PO Daily March 16, 2019 12:00am March 16, 2019 2:44pm magnesium hydroxide 80 mg/ml oral suspension (1 source) magnesium hydrox keven (MILK OF MAGNESIA) 400 MG/5ML suspension Take by mouth daily as needed for Constipation 0 Suspended magnesium oxide 500 mg oral tablet (3 [...] Tartrate Discontinued 12.5 MG PO Twice daily April 09, 2019 12:00am February 25, 2024 11:43am take 0.5 tablet by m outh twice daily at mealtime Metoprolol Tartrate 25 MG 1/2 tablet with food Orally Twice a day Active Misc Medication (4 sources) Start: 02-24-2024 take 1 capsule by mouth once daily Misc Medication D-Mannose 500mg Take one capsule orally daily Start Date: 02/24/24 Status: Ordered Multi Vitamin Oral Tablet (1 source) take 1 tablet by mouth once daily Multi Vitamin Oral Tablet TAKE 1 TABLET DAILY. Quantity: 0 Refills: 0 Ordered: 12-Mar-2022 DO Active Multiple Vitamins-Minerals (PRESERVISION AREDS 2 PO) (1 source) Multiple Vitamins-Minerals (PRESERVISION AREDS 2 PO) Take by mouth daily 0 Suspended Multivitamin preparation (3 sources) Start: 03-16-2019 End: [...] 13, 2018 12:00am June 27, 2018 10:44am Rh-Czk-Wbfpt-Calcium Carb-K1 (Women's 50 Plus Daily Formula) 400 mcg-500 mg calcium-20 mcg Tablet (6 sources) Start: 06-27-2018 End: 03-16-2019 take 1 tablet by mouth once daily Gh-Rsj-Wfiqr-Calcium Carb-K1 (Women's 50 Plus Daily Formula) 400 mcg-500 mg calcium-20 mcg Tablet Discontinued 1 TAB PO Daily June 27, 2018 12:00am March 16, 2019 2:32pm Start: 02-18-2018 End: 03-13-2018 take 1 tablet by mouth once daily Vv-Ssk-Owgjx-Calcium Carb-K1 (Women's 50 Plus Daily Formula) 400 mcg-500 mg calcium-20 mcg Tablet Discontinued 1 TAB PO Daily February 18, 2018 12:00am March 13, 2018 10:20am Novolin L 100 UNIT/ML SUSP (1 source) Novolin L 100 UNIT/ML SUSP USE DIRECTED. Quantity: 0 Refills: 0 Ordered: 04-Apr-2023 DO Active nystatin [id number] unt/ml topical cream (6 sources) Polyene Antifungal Start: 11-20-20 23 apply 15 g topically once as needed nystatin Top 100,000 units/g Crm 15 gram See Instructions, Refill(s) 0, apply topically to affected area(s) per plan as needed Start Date: 11/20/23 Status: Ordered OT EVALUATION (7 sources) Start: 07-15-20 OT EVALUATION OT EVALUATION, [...] March 31, 2019 April 09, 2019 9:42am phenylephrine hydrochloride 25 mg/ml ophthalmic solution (1 source) alpha-1 Adrenergic Agonist Start: 05-11-2024 End: 05-11-2024 phenylephrine (MYDFRIN) 2.5 % ophthalmic solution 1 drop polyethylene glycol 400 4 mg/ml / propylene [...] 18, 2018 12:00am March 13, 2018 10:20am take 20 mEq by mouth once daily potassium chloride (KLOR-CON) 20 MEQ packet Take 20 mEq by mouth daily 0 Suspended proparacaine hydrochloride 5 mg/ml ophthalmic solution (1 source) Local Anesthetic Start: 05-11-2024 End: 05-11-2024 proparacaine (ALCAINE) 0.5 % ophthalmic solution 1 drop 1 mg dose 1.5 ml semaglutide 1.34 mg/ml pen injector (1 source) Semaglutide, 1 MG/DOSE, (OZEMPIC, 1 MG/DOSE,) 2 MG/1.5ML SOPN Inject into the skin 0 Suspended sennosides, senior care 8.6 mg oral tablet (3 sources) Start: 04-09-2019 End: 02-25-2024 take 2 tablets by mouth once daily Sennosides (Senna Lax) 8.6 mg Tablet Discontinued 2 TAB PO DAILY@11 30April 09, 2019 12:00am February 25, 2024 11:43am [...] 04-03-2017 Kenalog -40 mg April, 40 mg tropicamide 10 mg/ml ophthalmic solution (1 source) Anticholinergic Start: 05-11-2024 End: 05-11-2024 tropicamide (MYDRIACYL) 1 % ophthalmic solution 1 drop vitamin e 450 mg oral capsule (15 [...] Administrative/social admission (4 sources) Lives in a intermediate; Translations: [Person living in residential institution] 03-07-2018 Episodic Cancer of uterus (8 sources) Malignant neoplasm of uterus 09-04-2023 Chronic Chronic kidney disease (20 sources) Chronic kidney disease stage 3B ; Translations: [Chronic kidney disease, stage 3b] Onset: 05-08-2024 03-07-2018 Chronic Chronic kidney disease (6 sources) Chronic kidney disease; Translations: [CHRONIC KIDNEY DISEASE STAGE 3B] Onset: 05-15-2022 Resolved: 05-15-2022 Coronary atherosclerosis and other heart disease (20 sources) Double coronary vessel disease; Translations: [Coronary atherosclerosis of unspecified type of vessel, [place] or graft] Onset: 08-29-2022 04-01-2019 Chronic Deficiency and other anemia (1 source) Other [...] 11-09-2022 Chronic Comment on above: Linked per [facility] policy Disorders of lipid metabolism (20 sources) Hyperlipidemia; Translations: [Other and unspecified hyperlipidemia] Onset: 05-15-2022 Resolved: 05-15-2022 Chronic Essential hypertension (20 sources) Essential hypertension; Translations: [Unspecified essential hypertension] Onset: 05-15-2022 Resolved: 05-15-2022 Chronic Comment on above: Linked per [facility] policy Fluid and electrolyte disorders (3 sources) Hypokalemia; Translations: [Hypokalemia] Episodic Genitourinary symptoms and ill-defined conditions (20 sources) Incontinence without sensory awareness; Translations: [Urinary incontinence] Onset: 07-04-2022 Chronic Genitourinary symptoms and ill-defined conditions (15 sources) Dysuria; Translations: [Dysuria] Onset: 12-17-2022 Episodic Headache; including migraine (8 sources) Migraine 09-04-2023 Chronic Hypertension with complications [...] Onset: 11-20-2022 Episodic Miscellaneous mental health disorders (6 sources) Confusional state 12-16-2023 Chronic Mood disorders (8 sources) Major depression in full remission; Translations: [Single episode of major depression in full remission] 09-09-2023 Chronic Mood disorders (4 sources) Mood disorders; Translations: [DEPRESSION UNSPECIFIED] Onset: 11-09-2022 Nutritional deficiencies (8 sources) Vitamin D deficiency 09-04-2023 Chronic Occlusion or stenosis of precerebral arteries (1 source) Occlusion and stenosis of bilateral carotid arteries; Translations: [OCCLUSION AND STENOS DORIE CAROTID ART] Onset: 01-23-2023 Chronic Osteoarthritis (20 sources) Primary gonarthrosis, bilateral; Translations: [Bilateral primary osteoarthritis of knee] Chronic Other connective tissue disease (3 sources) History of total knee arthroplasty; Translations: [Presence of left artificial knee joint] 03-31-2019 Chronic Other connective tissue disease (6 sources) Recurrent falls 12-16-2023 Episodic Other connective tissue disease (1 source) Muscle weakness of limb 04-28-2024 Episodic Other diseases of bladder and urethra (2 sources) Male urethral stricture; Translations: [Unspecified urethral stricture, male, unspecified site] Onset: 11-21-2023 Episodic Other diseases of bladder and urethra (7 sources) Urethral stricture 11-21-2023 Episodic Other diseases of kidney and ureters (3 sources) Renal impairment; Translations: [Disorder of kidney and ureter, unspecified] 03-07-2018 Episodic Other eye disorders (2 sources) Vitreomacular traction syndrome; Translations: [Vitreomacular adhesion, left eye] Onset: 05-11-2024 05-11-2024 Chronic Other hereditary and degenerative nervous system conditions (1 source) Mild cognitive impairment, so stated; Translations: [MILD COGNTV IMPAIRMNT UNCRTN/UNKNWN] Onset: 12-22-2022 Chronic Other hereditary and degenerative nervous system conditions (8 sources) Essential tremor 09-04-2023 Chronic Other nervous system disorders (10 sources) Neuropathy; Translations: [Polyneuropathy, unspecified] 02-24-2024 Chronic Other nervous system disorders (5 sources) Polyneuropathy, unspecified; Translations: [Mononeuritis of unspecified site] Onset: 05-15-2022 Resolved: 05-15-2022 Chronic Other nervous system disorders (4 sources) Communicating hydrocephalus; Translations: [COMMUNICATING HYDROCEPHALUS] Onset: 01-18-2023 Chronic Other nervous system disorders (6 sources) Normal pressure hydrocephalus 12-16-2023 Chronic Other nervous system disorders (3 sources) Postoperative pain ; Translations: [Other acute postprocedural pain] 03-07-2018 Episodic Other nervous system disorders (8 sources) Abnormal gait 09-04-2023 Episodic Other nervous system disorders (8 sources) History of Guillain [place] syndrome 09-09-2023 Episodic Other non-traumatic joint disorders (1 source) Other specified joint disorders, left shoulder Episodic Other non-traumatic joint disorders (1 source) Pain in right shoulder Episodic Other non-traumatic joint disorders (1 source) Pain in left shoulder Episodic Other nutritional; endocrine; and metabolic disorders (20 sources) Morbid obesity; Translations: [Morbid obesity] Onset: 12-16-2023 03-07-2018 Chronic Other nutritional; endocrine; and metabolic disorders (20 sources) Body mass index 40+ - severely obese; Translations: [Morbid obesity] Onset: 02-25-2024 05-16-2023 Chronic Other nutritional; endocrine; and metabolic disorders (7 sources) Morbid (severe) obesity due to excess calories; Translations: [Morbid obesity] Onset: 01-21-2023 Chronic Other nutritional; endocrine; and metabolic disorders (4 sources) Obesity 05-16-2023 Chronic Other screening for suspected conditions (not mental disorders or infectious disease) (7 sources) Encounter for screening mammogram for malignant neoplasm of breast; Translations: [Protein level - finding] Onset: 10-11-2022 Episodic Peripheral and visceral atherosclerosis (8 sources) Arteriosclerotic vascular disease 09-04-2023 Chronic Residual codes; unclassified (8 sources) Localized edema; Translations: [Edema] Onset: 05-15-2022 Resolved: 05-15-2022 Episodic Residual codes; unclassified (3 sources) Patient encounter status; Translations: [Encounter for prophylactic measures, unspecified] 03-07-2018 Episodic Residual codes; unclassified (1 source) Localized edema; Translations: [Localized edema] 02-24-2024 Episodic Retinal detachments; defects; vascular occlusion; and retinopathy (2 sources) Puckering of macula, left eye; Translations: [Puckering of macula, left eye] Onset: 05-11-2024 Chronic Spondylosis; intervertebral disc disorders; other back problems (4 sources) Chronic back pain ; Translations: [Dorsalgia, unspecified] 03-07-2018 Episodic Unclassified (1 source) Pain in left shoulder; Translations: [Pain in left shoulder] Onset: 07-01-2023 Unclassified (8 sources) Long-term current use of insulin 09-06-2023 Urinary tract infections (9 sources) Urinary tract infection, site not specified; Translations: [Acute cystitis without hematuria] Onset: 11-12-2022 04-01-2023 Episodic Past or Other Problems Problem Classification Problem Date Documented Da te Episodic/Chronic Cardiac dysrhythmias (1 source) Tachycardia, unspecified; Translations: [TACHYCARDIA UNSPECIFIED] Onset: 09-01-2022 Episodic Coronary atherosclerosis and other heart disease (8 sources) Patient post percutaneous transluminal coronary angioplasty; Translations: [Percutaneous transluminal coronary angioplasty status] Onset: 12-16-2023 01-09-2024 Episodic E Codes: Fall (2 sources) Fall on same level from slipping, tripping and stumbling with subsequent striking against unspecified object, initial encounter; Translations: [Unspecified fall, initial encounter] Onset: 11-20-2022 Episodic Nonspecific chest pain (7 sources) Chest pain; Translations: [Chest pain, unspecified] Onset: 08-27-2022 Resolved: 05-08-2024 Episodic Other aftercare (1 source) skilled nursing (current) use of aspirin; Translations: [FORESTRY FACULTY MEMBER CURRENT USE OF ASPIRIN] Onset: 01-28-2023 Episodic Other aftercare (1 source) Other 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 (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 therapy; Translations: [OTH FORESTRY FACULTY MEMBER CURRENT DRUG THERAPY] Onset: 01-28-2023 Episodic Other aftercare (1 source) director long term care (current) use of insulin; Translations: [FORESTRY FACULTY MEMBER CURRENT USE OF INSULIN] Onset: 01-28-2023 Episodic Other aftercare (1 source) director long term care (current) use of antithrombotics/ant iplatelets; Translations: [PRISON ANTITHROMBOT/ANTIPL ATLETS] Onset: 08-29-2022 Episodic Other connective [...] smoked tobacco; Translations: [Never a smoker] Unclassified (2 sources) Onset: 01-09-2024 Resolved: 05-08-2024 01-09-2024 Results Test Name Value Interpretation Reference Range Facil ity Screenson 05-19-2024 Screens [id number] Normal [facility] Ambulatory Visit Summaryon 0 05-15-2024 Ambulatory Visit Summary MALCOM KNOWLES :1955 Visit Date:05/15/2024 Ambulatory Visit Instructions Your Diagnosis Urge incontinence Urethral stricture Frequent UTI Your Care Team Attending Physician - BRIGIDA GRAHAM PA-C Primary Care Physician - Jose Snow MD. This Is Your Medications List Misc Prescription (Freestyle Bang 2 sensors) Misc Prescription (Misc DME Prescription) Misc Prescription (handicap placard) Non-Formulary Medication (D-Mannose) acetaminophen (acetaminophen 500 mg Tab) alpha-lipoic acid (Alpha Lipoic) atorvastatin (atorvastatin 80 mg Tab) bifidobacterium-la ctobacillus (Nature's Bounty Probiotic) biotin (biotin 10 mg oral tablet) brexpiprazole (Rexulti 0.5 mg oral tablet) calcium carbonate (Tums Chewy Bites 750 mg oral tablet, chewable) cetirizine (cetirizine 5 mg oral tablet) cholecalciferol (Vitamin D3 1000 intl units (25 mcg) Tab) clopidogrel (Plavix 75 mg Tab) cranberry (Cranberry) cyanocobalamin (Vitamin B12 1000 mcg Tab) docusate (Colace 100 mg Cap) donepezil (donepezil 10 mg Tab) dulaglutide (Trulicity Pen) famotidine (famotidine 20 mg Tab) furosemide (furosemide 40 mg Tab) gabapentin (gabapentin 600 mg Tab) glimepiride (glimepiride 2 mg Tab) glucosamine (glucosamine hydrochloride 1500 mg oral tablet) hydrocortisone topical (hydrocortisone Top 2.5% Crm) insulin aspart (Insulin Aspart FlexPen 100 units/mL injectable solution) insulin aspart (NovoLog) insulin glargine (Basaglar KwikPen 100 units/mL subcutaneous solution) losartan (losartan 25 mg Tab) memantine (memantine 10 mg Tab) multivitamin with minerals (CertaVite with Antioxidants) multivitamin with minerals (PreserVision AREDS 2) nitroglycerin (nitroglycerin 0.4 mg sublingual Tab) nystatin topical (nystatin Top 100,000 units/g Crm 15 gram) ondansetron (ondansetron 4 mg Tab) potassium chloride (potassium chloride 20 mEq ER Tab) semaglutide (Ozempic (1 mg dose) 4 mg/3 mL subcutaneous solution) sodium chloride nasal (Saline Mist 0.65% nasal spray) tirzepatide (Mounjaro 2.5 mg/0.5 mL subcutaneous solution) venlafaxine (venlafaxine 75 mg Cap-ER) zinc oxide topical (zinc oxide Top 20% Oint) Procedures Performed Cystourethroscopy with dilation of urethral stricture (12/23/2023), Cardiac catheterization, Cataract, Colonoscopy, History of left knee replacement, History of right total knee replacement, ARYAN BSO - Total abdominal hysterectomy and bilateral salpingo-oophorect francisco. Discharge Vitals Heart Rate (Peripheral) 69 Respiratory Rate 19 Blood Pressure 126/67 Height 160 cm Height 63 in Weight 138 kg Weight 303.6 lb BMI 53.91 What to do next Scheduled Follow-Up Appointments 2024 9:15 AM EST With: Kaushal JUDGE, Jose Lau Where: [place] [id number] \.br\ Medications\.br\ What How Much When Why Instructions\.br\ Unchanged acetaminophen (acetaminophen 500 mg Tab) 2 Tablets By Mouth Every day\.br\ Unchanged alpha-lipoic acid (Alpha Lipoic) 600 Milligram By Mouth\.br\ Unchanged atorvastatin (atorvastatin 80 mg Tab) 1 Tablets By Mouth Every day\.br\ Unchanged bifidobacterium-lacto bacillus (Nature's Bounty Probiotic) By Mouth Every day\.br\ Unchanged biotin (biotin 10 mg oral tablet) 1 Tablets By Mouth Every day\.br\ Unchanged brexpiprazole (Rexulti 0.5 mg oral tablet) By Mouth Every day\.br\ Unchanged calcium carbonate (Tums Chewy Bites 750 mg oral tablet, chewable) 2 Tablets Chewed At bedtime\.br\ Unchanged cetirizine (cetirizine 5 mg oral tablet) 1 Tablets By Mouth Every day\.br\ Unchanged cholecalciferol (Vitamin D3 1000 intl units (25 mcg) Tab) 1 Tablets By Mouth Every day\.br\ Unchanged clopidogrel (Plavix 75 mg Tab) 1 Tablets By Mouth Every day\.br\ Unchanged cranberry (Cranberry) 450 Milligram\.br\ Unchanged cyanocobalamin (Vitamin B12 1000 mcg Tab) 1 Tablets By Mouth Every day\.br\ Unchanged docusate (Colace 100 mg Cap) 1 Capsules By Mouth Every day as needed for for constipation\.br\ Unchanged donepezil (donepezil 10 mg Tab) 1 Tablets By Mouth 2 times a day\.br\ Unchanged dulaglutide (Trulicity Pen) Subcutaneous Every week\.br\ Unchanged famotidine (famotidine 20 mg Tab) 1 Tablets By Mouth Once a day (at bedtime)\.br\ Unchanged furosemide (furosemide 40 mg Tab) 1 Tablets By Mouth Every day\.br\ Unchanged gabapentin (gabapentin 600 mg Tab) 1 Tablets By Mouth 3 times a day\.br\ Unchanged glimepiride (glimepiride 2 mg Tab) 1 Tablets By Mouth Every day\.br\ Unchanged glucosamine (glucosamine hydrochloride 1500 mg oral tablet) See instructions 2 tab(s) Oral Daily at bedtime \.br\ Unchanged hydrocortisone topical (hydrocortisone Top 2.5% [...] scale rest of time \.br\ Unchanged insulin aspart (NovoLog) Subcutaneous Before meals\.br\ Unchanged insulin glargine (Basaglar KwikPen 100 units/ mL subcutaneous solution) See instructions 30 unit(s) at bedtime \.br\ Unchanged losartan (losartan 25 mg Tab) 1 Tablets\.br\ Unchanged memantine (memantine 10 mg Tab) 1 Tablets By Mouth 2 times a day\.br\ Unchanged Misc Prescription (Freestyle Bang 2 sensors) See instructions Insulin dependent type 2 diabetes mellitus One box of sensors \.br\ Unchanged Misc Prescription (handicap placard) See instructions Duration 5 years \.br\ Unchanged Misc Prescription (Misc DME Prescription) See instructions BD ultra fine pen needles 31G X 3/ 16. Use to inject insulin as directed. Dx E10.42 \.br\ Unchanged multivitamin with minerals (CertaVite with Antioxidants) By Mouth Every day\.br\ Unchanged multivitamin with minerals (PreserVision AREDS 2) Chewed 2 times a day\.br\ Unchanged nitroglycerin (nitroglycerin 0.4 mg sublingual Tab) 1 Tablets Sublingual Every 5 minutes as needed for for chest pain\.br\ Unchanged Non-Formulary Medication (D-Mannose) 500mh\.br\ Unchanged nystatin topical (nystatin Top 100,000 units/ g Crm 15 gram) See instructions apply topically to affected area(s) per plan as needed \.br\ Unchanged ondansetron (ondansetron 4 mg Tab) 1 Tablets By Mouth Every 6 hours\.br\ Unchanged potassium chloride (potassium chloride 20 mEq ER Tab) 1 Tablets By Mouth Every day\.br\ Unchanged semaglutide (Ozempic (1 mg dose) 4 mg/ 3 mL subcutaneous solution) 1 Milligram\.br\ Unchanged sodium chloride nasal (Saline Mist 0.65% nasal spray) See instructions 1 spray each nostril every shift, may self administer \.br\ Unchanged tirzepatide (Mounjaro 2.5 mg/ 0.5 mL subcutaneous solution) 2.5 Milligram Subcutaneous Every week UTI (urinary tract infection)\.br\ Unchanged venlafaxine (venlafaxine 75 mg Cap-ER) 1 Capsules By Mouth Every day\.br\ Unchanged zinc oxide topical (zinc oxide Top 20% Oint) See instructions apply topically to red areas on buttocks twice daily as needed \.br\ Allergies\.br\ influenza virus vaccine, inactivated\.br\ sulfa drugs (Unknown)\.br\ Problems\.br\ Ongoing - Any problem that you are currently receiving treatment for.\.br\ (Idiopathic) normal pressure hydrocephalus\.br\ ASCVD (arteriosclerotic cardiovascular disease)\.br\ Back pain\.br\ Benign hypertension with chronic kidney disease\.br\ BMI 50.0-59.9, adult\.br\ CKD (chronic kidney disease) stage 3, GFR 30-59 ml/min\.br\ Confusion\.br\ Diabetic retinopathy\.br\ Essential tremor\.br\ Frequent falls\.br\ Frequent UTI\.br\ Gait disorder\.br\ Gross hematuria\.br\ History of Uterine cancer\.br\ HTN (hypertension)\.br\ Hx of Guillain-[place] syndrome\.br\ Hypercholesterolemia\ .br\ Insulin long-term use\.br\ Leg weakness\.br\ Major depressive disorder with single episode, in [...] for choosing us for your care.\.br\ \.br\ [facility] Patient Educationon 05-15-20 Patient Education Obstetrics and Gynecology Overactive Bladder, [...] health care provider. General instructions ? Take hjfq-efr-dthpslj and prescription medicines only as told by [...] monitor yo (more content not included)... Normal [facility] Urology Office/Clinic Noteon 05-15-2024 Urology Office/Clinic Note Chief Complaint 6 week F/U to Botox with PVR HPI Staff 68 year old female here for 6 week F/U with PVR. Previous DX: urge incontinence, urethral stricture and frequent UTI. S/P Botox 03/30/24. Pt. was not able to give a urine sample today Dysuria: no Incomplete bladder emptying: no, PVR 0mL Hematuria: no Frequency: every hour to two Urgency: yes Nocturia: no Stream: good stream Post void dripping: no Wearing pads/ Depends: yes, Pt. wears pads and Depends at the same time. Pt. will use 6-7 Depends a day and will use two pads in the Depends. Urge incontinence: yes Stress incontinence: yes Incontinence without Sensory Awareness: yes Abdominal pain: no Flank pain: no Review of Systems PHQ Score Initial Depression Screen Score: 0 SCORE no fever, chills, malaise, myalgia. no rash/lesions. no chest pain, palpitations, or SOB. no abdominal pain, nausea, vomiting. no unilateral calf swelling, redness, pain Physical Exam Vitals & Measurements HR: 69(Peripheral) RR: 19 BP: 126/67 HT: 63 in HT: 160 cm WT: 138 kg WT: 303.6 lb BMI: 53.91 General: nontoxic, NAD Mouth: moist mucosa Lungs: normal respiratory effort Cardio: regular rate, good distal perfusion Abdomen: nondistended, no suprapubic distention or tenderness, no CVA tenderness Neurologic: Grossly normal Skin: No rashes or suspicious lesions Assessment/Plan 1. Urge incontinence (N39.41: Urge incontinence) on Lasix 40mg no improvement on Oxybutynin 15mg qd, dc'd due to side effects (dry eyes, constipation)(also pt has dementia) no improvement on Myrbetriq 50mg qd. sp Botox 100u 03/30/24 w [facility] Prior to Botox: BBSQ 20, poor control. PVR 100ml Nov 2023. TODAY: BBSQ 19 poor control. PVR 0ml. has not noticed any improvement in sx yet sp Botox. I did explain that full effect can take up to 12 weeks, so there still is hope that she may see some improvement from this initial dose. I also explained that some pts require higher than 100units. Will have her return after 12wks post-op to reassess. If still no improvement noted at that time, we can consider repeating procedure at higher dose. Ordered: [id number] Measure Post Void residual urine and/or bladder capacity by US- non-imaging Complex E&M Add on G2211 E&M of Est. Patient Low 20-29 Min 24073 2. Urethral stricture (N35.919: Unspecified urethral stricture, male, unspecified site) sp cysto/UD w [facility] 12/23/23, tight at 18fr normal urethra during botox cysto 03/30/24 TODAY: pt denies straining, hesitancy, intermittency. does not feel she needs repeat dilation. Ordered: Complex E&M Add on G2211 E&M of Est. Patient Low 20-29 Min 89754 3. Frequent UTI (N39.0: Urinary tract infection, site not specified) Had 2 UTIs in July with hematuria. Also saw blood in Spring w UTI. Discussed possibility of starting Estrace cream to help with UTI prevention. Does have hx of uterine ca so will not utilize this. ECF called due to increased falls, cx+ E Coli 12/13/23, txd Macrobid per PCP cx again due to fall Mar 2024, +E Coli, txd Keflex x 10d now on d-mannose, cranberry, and probiotics TODAY: unable to check UA today - PVR 0ml. pt denies current or recent UTI sx. Ordered: Complex E&M Add on G2211 E&M of Est. Patient Low 20-29 Min 28763 Follow-up With When Contact Information EMMY JUDGE, Joe Guerra, URL In [address] [place] [id number] Additional Instructions: Patient Education Overactive Bladder, Adult Problem List/Past Medical History Ongoing (Idiopathic) normal pressure hydrocephalus ASCVD (arteriosclerotic cardiovascular disease) Back pain Benign hypertension with chronic kidney disease BMI 50.0-59.9, adult CKD (chronic kidney disease) stage 3, GFR 30-59 ml/min Confusion Diabetic retinopathy Essential tremor Frequent falls Frequent UTI Gait disorder Gross hematuria History of Uterine cancer HTN (hypertension) Hx of Guillain-[place] syndrome Hypercholesterolem ia Insulin long-term use Leg weakness Major depressive disorder with single episode, in full remission Migraines Mixed incontinence Morbid obesity Stage 3b chronic kidney disease (CKD) Type 2 diabetes mellitus with chronic kidney disease Type 2 diabetes mellitus with hypercholesterolem ia Urethral stricture Urge incontinence Vitamin D deficiency Historical No qualifying data Procedure/Surgical History Cystourethroscopy with dilation of urethral stricture (12/23/2023), Cardiac catheterization, Cataract, Colonoscopy, History of left knee replacement, History of right total knee replacement, ARYAN BSO - Total abdominal hysterectomy and bilateral salpingo-oophorect francisco. Medications acetaminophen 500 mg Tab, 1000 mg= 2 tab(s), Oral, Daily Alpha Lipoic, 600 mg, Oral atorvastatin 80 mg Tab, 80 mg= 1 tab(s), Oral, Daily Basaglar KwikPen 100 units/mL subcutaneous solution, See Instructions, Pre-arrival medication biotin 10 mg oral (more content not included)... Normal [facility] Comment on above: Result Comment: Elec tronically Signed By: FARTUN MCCOLLUM, BRIGIDA Seals\.fani\Date and Time Signed: 05/15/24 11:46 EDT [facility] Record[facility] 05-12 [facility] [id number]#1.00TIFF Normal [facility] Glucose,Whole Bloodon 2023 Glucose [Mass/Vol] 149 mg/dL High 74-99 [facility] POCT Glucoseon 05-11-2024 Glucose [Mass/Vol] 149 mg/dL High 74 - 99 mg/dL [facility] Interpretation and review of laboratory results Abnormal [facility] ECG 12 Leadon 05-08-2024 Normal sinus rhythm with old inferior wall myocardial infarction [facility] Work Phone: Consultation Noteon 04-30-20 Consultation Note [id number]#[id number] Normal [facility] Consultation Note [id number]#1.00TIFF Normal [facility] Family Medicine Office/Clini c Noteon 04-30-2024 Family Medicine Office/Clinic Note Chief Complaint Medicare Wellness Visit History of Present Illness Covid-19, MERS, Ebola Screen *Contact With Person With Highly Contagious Disease Like Ebola/MERS/COVID-1 9 AND Have One or More of the Symptoms Below : No *Travel to a Country With Wide-Spread Ebola/MERS/COVID-1 9 in the Past 21 Days AND Have One or More of the Symptoms Below : No Patient Reported Covid-19 Testing : No *Verify Droplet, Contact Precautions for Ebola (Reference for CDC) : N/A *Verify Airborne, Droplet Precautions for MERS/COVID-19 : N/A Velma Flores LPN 04/28/2024 12:55 EDT Medicare/Medicaid Summary Numeric Rating Pain Scale : 8 Primary Pain Location : Back Velma Flores LPN - 04/28/2024 14:59 EDT Systolic Blood Pressure : 100 mmHg Diastolic Blood Pressure : 68 mmHg Peripheral Pulse Rate : 64 bpm Respiratory Rate : 18 br/min SpO2 : 94 % Velma Flores LPN 04/28/2024 14:15 EDT Height/Length Measured : 154 cm(Converted to: 5 ft 1 in, 60.63 in) Weight Measured : 135.9 kg(Converted to: 299 lb 10 Ounces, 299.608 lb) Body Mass Index Measured : 57.3 kg/m2 Height in Inches : 61 in Weight in Pounds : 298.98 lb Numeric Rating Pain Score : 8 Velma Flores LPN - 04/28/2024 13:09 EDT Chief Complaint : Medicare Wellness Visit Patient Counseled : Nutrition, Physical activity, Elevated BMI Blood Pressure Location : Right arm Blood Pressure Position : Sitting O2 Sat Resting/Exertion Alpha : Resting Velma Flores LPN - 04/28/2024 12:55 EDT Pain Present : Yes actual or suspected pain Velma Flores LPN 04/28/2024 14:59 EDT Hearing and Vision Screening FT FT Whisper Test Comments : No deficits noted. Vision Screen Comments : Does not wear corrective lenses, gets DM eye exams from Dr. Haroon Zuniga last 01/20/2024. Velma Flores LPN - 04/28/2024 13:09 EDT Advance Directive FT Type of Advance Directive : Living will, Medical durable power of passport support associate Velma Flores LPN - 04/28/2024 14:15 EDT Patient Wishes to Receive Further Information on Advance Directives : No Organ Donation Consent : Yes Advance Directive : Yes Velma Flores LPN - 04/28/2024 13:09 EDT Procedures / Surgeries FT - Procedure History (As Of: 04/28/2024 15:01:03 EDT) Anesthesia Minutes: 0 ; Procedure Name: ARYAN BSO - Total abdominal hysterectomy and bilateral salpingo-oophorect francisco ; Procedure Minutes: 0 ; Last Reviewed Dt/Tm: 04/28/2024 13:11:03 EDT Anesthesia Minutes: 0 ; Procedure Name: Cardiac catheterization ; Procedure Minutes: 0 ; Comments: 09/04/2023 17:11 EDT - Stephanie Hernandez LPN 2017 2 stents, 2019 3 stents ; Last Reviewed Dt/Tm: 04/28/2024 13:11:03 EDT Anesthesia Minutes: 0 ; Procedure Name: History of right total knee replacement ; Procedure Minutes: 0 ; Comments: 09/04/2023 17:10 EDT - Stephanie Hernandez LPN 2017 ; Last Reviewed Dt/Tm: 04/28/2024 13:11:03 EDT Anesthesia Minutes: 0 ; Procedure Name: Cataract ; Procedure Minutes: 0 ; Comments: 09/04/2023 17:09 EDT - Stephanie Hernandez LPN 08/2021 ; Last Reviewed Dt/Tm: 04/28/2024 13:11:03 EDT Anesthesia Minutes: 0 ; Procedure Name: History of left knee replacement ; Procedure Minutes: 0 ; Comments: 09/04/2023 17:10 EDT - Stephanie Hernandez LPN 2018 ; Last Reviewed Dt/Tm: 04/28/2024 13:11:03 EDT Anesthesia Minutes: 0 ; Procedure Name: Colonoscopy ; Procedure Minutes: 0 ; Last Reviewed Dt/Tm: 04/28/2024 13:11:03 EDT Procedure Dt/Tm: 12/23/2023 ; Provider: Joe BOOTH MD; Anesthesia Minutes: 0 ; Procedure Name: Cysto/UD ; Procedure Minutes: 0 ; Last Reviewed Dt/Tm: 04/28/2024 13:11:03 EDT Family History Family History (As Of: 04/28/2024 15:01:03 EDT) Father: Relation: Father ; Gender: Male ; Nomenclature: Arthritis ; Value: Positive Nomenclature: Prostate cancer ; Value: Positive Nomenclature: High cholesterol ; Value: Positive Nomenclature: Hypertension ; Value: Positive Nomenclature: Stroke ; Value: Positive Mother: Relation: Mother ; Gender: Female ; Nomenclature: Stroke ; Value: Positive Brother: Relation: Brother ; Gender: Male ; Nomenclature: Alcoholism ; Value: Positive Nomenclature: Diabetes mellitus type 2 ; Value: Positive Medicare/Medicaid Social History FT Social History (As Of: 04/28/2024 15:01:03 EDT) Alcohol: Denies Alcohol Use (Last Updated: 04/28/2024 13:11:17 EDT by Velma Flores LPN ) Tobacco: No Risk Never (less than 100 in lifetime) Tobacco Use:. Never Smokeless Tobacco Use:. Cigarettes, Household tobacco concerns: No. (Last Updated: 04/28/2024 13:45:19 EDT by Velma Flores LPN) Substance Abuse: Denies Substance Abuse (Last Updated: 04/28/2024 13:11:20 EDT by Velma Flores LPN ) Health Risk Assessment FT Primary Pain Location : Back Numeric Rating Pain Scale : 8 Numeric Rating Pain Score : 8 HRA little interest or pleasure? : Yes HRA down, depressed, or hopeless? : Yes Velma Flores LPN - 04/28/2024 13:09 EDT Hazards i (more content not included)... [facility] Comment on above: Result Comment: Elec tronically Signed By: Jose Snow MD\.br\Date and Time Signed: 04/30/24 10:24 EDT\.br\Electronically Co-Signed By: Velma Flores LPN\.br\Date and Time Co-Signed: 04/28/24 16:15 EDT [facility] Record[facility] 04-30 [facility] Records [id number]#1.00TIFF [facility] Auth for Release of Medical Recordson 04-29-2024 Auth for Release of Medical Records [id number]#1.00TIFF [facility] Physician Referralon 024 Physician Referral [id number]#1.00TIFF [facility] Physician Referral [id number]#1.00TIFF [facility] Screenson 04-29-2024 Screens [id number]#1.00TIFF [facility] Ambulatory Visit Summaryon 0 04-28-2024 Ambulatory Visit Summary MALCOM KNOWLES :1955 Visit Date:04/28/2024 Ambulatory Visit Instructions Your Diagnosis Annual visit for general adult medical examination with abnormal findings (Idiopathic) normal pressure hydrocephalus Type 2 diabetes mellitus with chronic kidney disease Insulin long-term use CKD (chronic kidney disease) stage 3, GFR 30-59 ml/min Stage 3b chronic kidney disease (CKD) Type 2 diabetes mellitus with hypercholesterolem ia Diabetic retinopathy History of Uterine cancer Major depressive disorder with single episode, in full remission BMI 50.0-59.9, adult Morbid obesity HTN (hypertension) ASCVD (arteriosclerotic cardiovascular disease) Encounter for hepatitis C screening test for low risk patient Abnormal mammogram Frequent falls Tests Performed MA Mamm Diag w/CAD if perf and 3D LT -- Results Pending -- Please visit your patient portal for your results or contact your primary care physician. Your Care Team Attending Physician - Jose Snow MD. Primary Care Physician - Jose Snow MD This Is Your Medications List Misc Prescription (Freestyle Bang 2 sensors) Misc Prescription (Misc DME Prescription) Misc Prescription (handicap placard) acetaminophen (acetaminophen 500 mg Tab) atorvastatin (atorvastatin 80 mg Tab) calcium carbonate (Tums Chewy Bites 750 mg oral tablet, chewable) cetirizine (cetirizine 5 mg oral tablet) cholecalciferol (Vitamin D3 1000 intl units (25 mcg) Tab) clopidogrel (Plavix 75 mg Tab) cyanocobalamin (Vitamin B12 1000 mcg Tab) docusate (Colace 100 mg Cap) donepezil (donepezil 10 mg Tab) famotidine (famotidine 20 mg Tab) furosemide (furosemide 40 mg Tab) gabapentin (gabapentin 600 mg Tab) glimepiride (glimepiride 2 mg Tab) glucosamine (glucosamine hydrochloride 1500 mg oral tablet) hydrocortisone topical (hydrocortisone Top 2.5% Crm) insulin aspart (Insulin Aspart FlexPen 100 units/mL injectable solution) insulin glargine (Basaglar KwikPen 100 units/mL subcutaneous solution) memantine (memantine 10 mg Tab) nitroglycerin (nitroglycerin 0.4 mg sublingual Tab) nystatin topical (nystatin Top 100,000 units/g Crm 15 gram) ondansetron (ondansetron 4 mg Tab) potassium chloride (potassium chloride 20 mEq ER Tab) sodium chloride nasal (Saline Mist 0.65% nasal spray) tirzepatide (Mounjaro 2.5 mg/0.5 mL subcutaneous solution) venlafaxine (venlafaxine 75 mg Cap-ER) zinc oxide topical (zinc oxide Top 20% Oint) [Image Removed: STOP]Stop taking these medications Non-Formulary Medication (Misc Medication) alpha-lipoic acid (Alpha Lipoic Acid 600 mg oral capsule) biotin (biotin 10 mg oral tablet) cranberry (Cranberry oral tablet) loperamide (Immodium A-D 2 mg Tab) magnesium hydroxide (Milk of Magnesia) multivitamin with minerals (CertaVite with Antioxidants) multivitamin with minerals (PreserVision AREDS 2) saccharomyces boulardii lyo (Florastor 250 mg oral capsule) Procedures Performed Cystourethroscopy with dilation of urethral stricture (12/23/2023), Cardiac catheterization, Cataract, Colonoscopy, History of left knee replacement, History of right total knee replacement, ARYAN BSO - Total abdominal hysterectomy and bilateral salpingo-oophorect francisco. Discharge Vitals Heart Rate (Peripheral) 64 Respiratory Rate 18 Blood Pressure 100/68 Height 154 cm Height 61 in Weight 135.9 kg Weight 298.98 lb BMI 57.3 What to do next Scheduled Follow-Up Appointments Saturday 11:00 AM EDT With: BRIGIDA GRAHAM PA-C Where: [facility] Invalid Interpretation Code [address] [place] [address]- \.br\ Someone Will Contact You Regarding These Appointments\.br\ [facility] [place], Orthopaedics, 04/28/24 14:52:00 EDT, Type 2 diabetes mellitus with chronic kidney disease [facility] Ambulatory Visit Summary SARBJITZOILANETOMALCOM Rajni :1955 Visit Date:04/28/2024 Ambulatory Visit Instructions Your Diagnosis Type 2 diabetes mellitus with chronic kidney disease Major depressive disorder with single episode, in full remission Hx of Guillain-[place] syndrome ASCVD (arteriosclerotic cardiovascular disease) Back pain Leg weakness Class 3 severe obesity due to excess calories with body mass index (BMI) of 50.0 to 59.9 in adult Nonsmoker BMI 50.0-59.9, adult Your Care Team Attending Physician - Jose Snow MD Primary Care Physician - Jose Snow MD This Is Your Medications List Contact prescribing physician if questions or concerns Misc Prescription (Freestyle Bang 2 sensors) Misc Prescription (Misc DME Prescription) Misc Prescription (handicap placard) acetaminophen (acetaminophen 500 mg Tab) atorvastatin (atorvastatin 80 mg Tab) calcium carbonate (Tums Chewy Bites 750 mg oral tablet, chewable) cetirizine (cetirizine 5 mg oral tablet) cholecalciferol (Vitamin D3 1000 intl units (25 mcg) Tab) clopidogrel (Plavix 75 mg Tab) cyanocobalamin (Vitamin B12 1000 mcg Tab) docusate (Colace 100 mg Cap) donepezil (donepezil 10 mg Tab) famotidine (famotidine 20 mg Tab) furosemide (furosemide 40 mg Tab) gabapentin (gabapentin 600 mg Tab) glimepiride (glimepiride 2 mg Tab) glucosamine (glucosamine hydrochloride 1500 mg oral tablet) hydrocortisone topical (hydrocortisone Top 2.5% Crm) insulin aspart (Insulin Aspart FlexPen 100 units/mL injectable solution) insulin glargine (Basaglar KwikPen 100 units/mL subcutaneous solution) memantine (memantine 10 mg Tab) nitroglycerin (nitroglycerin 0.4 mg sublingual Tab) nystatin topical (nystatin Top 100,000 units/g Crm 15 gram) ondansetron (ondansetron 4 mg Tab) potassium chloride (potassium chloride 20 mEq ER Tab) sodium chloride nasal (Saline Mist 0.65% nasal spray) tirzepatide (Mounjaro 2.5 mg/0.5 mL subcutaneous solution) venlafaxine (venlafaxine 75 mg Cap-ER) zinc oxide topical (zinc oxide Top 20% Oint) [Image Removed: STOP]Stop taking these medications Misc Prescription (SentiOne system) Misc Prescription (Home health physical therapy evaluatoin and treatment) Misc Prescription (OT EVALUATION) Misc Prescription (Physical therapy treat and evaluate, properly sized walker,) Non-Formulary Medication (Misc Medication) alpha-lipoic acid (Alpha Lipoic Acid 600 mg oral capsule) biotin (biotin 10 mg oral tablet) cranberry (Cranberry oral tablet) loperamide (Immodium A-D 2 mg Tab) magnesium hydroxide (Milk of Magnesia) multivitamin with minerals (CertaVite with Antioxidants) multivitamin with minerals (PreserVision AREDS 2) saccharomyces boulardii lyo (Florastor 250 mg oral capsule) Procedures Performed Cystourethroscopy with dilation of urethral stricture (12/23/2023), Cardiac catheterization, Cataract, Colonoscopy, History of left knee replacement, History of right total knee replacement, ARYAN BSO - Total abdominal hysterectomy and bilateral salpingo-oophorect francisco. What to do next Scheduled Follow-Up Appointments Saturday 11:00 AM EDT With: FARTUN MCCOLLUM, BRIGIDA Seals Where: [facility] Invalid Interpretation Code [address] [place] [address]- \.br\ Someone Will Contact You Regarding These Appointments\.br\ [facility] [place] Ref[place], Orthopaedics, 04/28/24 14:52:00 EDT, Type 2 diabetes mellitus with chronic kidney disease [facility] Family Medicine Office/Clini c Noteon 04-28-2024 Family Medicine Office/Clinic Note HPI Staff Malcom is a 68 year old female presenting for 2 month follow up DM, CKD, HTN AMW today with Velma A1c 8. 1 done today questions/concerns : 1. shoulder she get a shingles and pneumonia vaccine ( hx of guillian barre) 2. check her ears 3. still c/o back pain is there anything else she can do for it 4. refer to a concrete paver ( jaziel loved) History of Present Illness - Seeing Endo- 8.1 which was up since last time. - Left leg keeps giving out. Pt is doing PT without any improvement. - Back pain- Chronic - Depression- Pt states she is doing better. She seems so much. Physical Exam General: alert, no acute distress ENMT: oral mucosa moist, Cardiovascular: regular rate and rhythm, normal peripheral perfusion Respiratory: Lungs CTA, respirations non labored Extremities: no deformity, no trauma Neurological: oriented x 4, LOC appropriate for age, CN II-XII intact, motor strength equal & normal bilaterally, speech normal, Wheel Chair Bound. Abdomen: Soft, Nontender, Non-distended, + BS Assessment/Plan 1. Type 2 diabetes mellitus with chronic kidney disease (E11.22: Type 2 diabetes mellitus with diabetic chronic kidney disease) - Continue seeing Endo. - Please have records sent to us. - NO concerns at this time. - Reviewed patient's diet Ordered: [facility] [place] Ambulatory Referral 2. Major depressive disorder with single episode, in full remission (F32.5: Major depressive disorder, single episode, in full remission) - Seeing Psych - Doing much better. - Feeling better and family has noticed Ordered: [facility] [place] Ambulatory Referral 3. Hx of Guillain-[place] syndrome (Z86.69: Personal history of other diseases of the nervous system and sense organs) - Pt will speak to the pharmacy as we want to confirm which immunizations she can get. Ordered: [facility] [place] Ambulatory Referral 4. ASCVD (arteriosclerotic cardiovascular disease) (I25.10: Atherosclerotic heart disease of [place] coronary artery without angina pectoris) - NO CP - Doing well. Ordered: [facility] [place] Ambulatory Referral 5. Back pain (M54.9: Dorsalgia, unspecified) - Will work on the leg weakness and falling - Then possible pain management Ordered: [facility] [place] Ambulatory Referral 6. Leg weakness (R29.898: Other symptoms and signs involving the musculoskeletal system) - Will send to Ortho since PT has not improved 7. Class 3 severe obesity due to excess calories with body mass index (BMI) of 50.0 to 59.9 in adult (E66.01: Morbid (severe) obesity due to excess calories) - Diet and exercise advised 8. Nonsmoker (Z78.9: Other specified health status) - Please continue to not smoke. 9. BMI 50.0-59.9, adult (Z68.43: Body mass index [BMI] 50.0-59.9, adult) - BMI education given. Orders: fluconazole, 150 mg = 1 tab(s), Oral, Once, # 1 tab(s), Refills(s) 0, [facility] Antibody RFX to Quant PCR MA Mamm Diag w/CAD if perf and 3D LT Follow-up No qualifying data available Patient Education BMI for Adults Problem List/Past Medical History Ongoing (Idiopathic) normal pressure hydrocephalus ASCVD (arteriosclerotic cardiovascular disease) Back pain Benign hypertension with chronic kidney disease BMI 50.0-59.9, adult CKD (chronic kidney disease) stage 3, GFR 30-59 ml/min Confusion Diabetic retinopathy Essential tremor Frequent falls Gait disorder Gross hematuria History of Uterine cancer HTN (hypertension) Hx of Guillain-[place] syndrome Hypercholesterolem ia Insulin long-term use Leg weakness Major depressive disorder with single episode, in full remission Migraines Mixed incontinence Morbid obesity Stage 3b chronic kidney disease (CKD) Type 2 diabetes mellitus with chronic kidney disease Type 2 diabetes mellitus with hypercholesterolem ia Urethral stricture Urge incontinence Vitamin D deficiency Historical No qualifying data Procedure/Surgical History Cystourethroscopy with dilation of urethral stricture (12/23/2023), Cardiac catheterization, Cataract, Colonoscopy, History of left knee replacement, History of right total knee replacement, ARYAN BSO - Total abdominal hysterectomy and bilateral salpingo-oophorect francisco. Medications acetaminophen 500 mg Tab, 1000 mg= 2 tab(s), Oral, Daily atorvastatin 80 mg Tab, 80 mg= 1 tab(s), Oral, Daily Basaglar KwikPen 100 units/mL subcutaneous solution, See Instructions cetirizine 5 mg oral tablet, 5 mg= 1 tab(s), Oral, Daily Colace 100 mg Cap, 100 mg= 1 cap(s), Oral, Daily, PRN donepezil 10 mg Tab, 10 mg= 1 tab(s), Oral, BID famotidine 20 mg Tab, 20 mg= 1 tab(s), Oral, Once a day (at bedtime) Freestyle Bang 2 sensors, See Instructions, 4 refills furosemide 40 mg Tab, 40 mg= 1 tab(s), Oral, Daily gabapentin 600 mg Tab, 600 mg= 1 tab(s), Oral, TID glimepiride 2 mg Tab, 2 mg= 1 tab(s), Oral, Daily glucosamine hydrochloride 1500 mg oral tablet, See Instructions handi (more content not included)... Normal [facility] Comment on above: Result Comment: Elec tronically Signed By: Kaushal JUDGE, Jose Lau\.br\Date and Time Signed: 04/28/24 14:53 EDT Patient Educationon 04-28-20 Patient Education Mental and Behavioral Health Supporting Someone With Depression Depression is a mental health condition that affects the way a person feels, thinks, and handles daily activities such as eating, sleeping, and working. When a person has depression, his or her condition can affect others around him or her, such as friends and family members. Friends and family can help by offering support and understanding. What do I need to know about this condition? The main symptoms of depression are: ? Constant depressed or irritable mood. ? Loss of interest in things and activities that were enjoyed in the past. Other symptoms of depression include: ? Fatigue. ? Sleeping too much or too little. ? Difficulty falling asleep, or waking up early and not being able to get back to sleep. ? Difficulty concentrating or making decisions. ? Changes in appetite and weight. ? Staying away from others (isolating oneself). ? Expressing feelings of guilt. ? Expressing suicidal thoughts or feelings. What do I need to know about the treatment options? This condition is usually treated by mental health providers such as psychologists, psychiatrists, psychiatric nurse practitioners, and clinical social workers. Treatment may include one or more of the following: ? Psychotherapy, also called talk therapy or counseling. Types of psychotherapy include individual or group therapy, and they usually involve the following approaches: ? Cognitive behavioral therapy (CBT). This type of therapy teaches a person how to recognize feelings, thoughts, and behaviors that contribute to depression. The person is taught to make a choice about how to respond to these feelings, thoughts, and behaviors so that he or she can experience fewer symptoms. ? Interpersonal therapy (IPT). This helps to improve the way that someone with depression relates to and communicates with others. This type of therapy may involve caregivers, friends, and family members. ? Family therapy. This treatment helps family members communicate and deal with conflict in healthy ways. ? Medicine. This is often used to help with certain emotions and behaviors. Combining medicine and therapy is often the most effective approach. The following lifestyle changes may also help with managing symptoms of depression: ? Limiting alcohol and drug use. ? Exercising regularly. ? Getting enough good-quality sleep. ? Making healthy eating choices. ? Reducing distressing situations. ? Spending time outside. ? Following regular daily routines. How can I support a person with depression? Talk about the condition Good communication is the babcock to supporting a person with depression. Here are a few things to keep in mind: ? Ask the person how you can support him or her. ? Respect the person's right to make decisions. ? Be careful about too much prodding. Try not to overdo reminders to an adult about things like taking medicines. Ask the person how he or she prefers that you help. ? Be encouraging and offer emotional support. This can help to lower stress. Even saying something simple to comfort the person may help. ? Listening is very important. Be available if the person wants to talk. Make an effort to acknowledge his or her feelings, and stay calm and realistic. ? Never ignore comments about suicide, and do not try to avoid the subject of suicide. Talking about suicide will not make the person want to act on it. ? You or the person with depression can reach out 24 hours a day to get free, private support (on the phone or a live online chat) from a suicide crisis helpline, such as the National Suicide Prevention Lifeline at or 543 in the [place] Find support and resources A health care provider may be able to recommend mental health resources that are available online or over the phone. You could start with: ? Government sites such as the Substance Abuse and Mental Health Services Administration (SAMHSA): www.samhsa.gov ? [facility] Helpline: 7-681-960-HELP (4953). ? National mental health organizations such as the National [place] on Mental Illness (CHAR): www.char.org You may also consider: ? Joining self-help and support groups, not only for the person with depression, but also for yourself. People in these peer and family support groups understand what you and the person with depression are going through. They can help you feel a sense of hope and connect you with local resources to help you learn more. ? Attending family therapy with the person you are supporting. General support ? Make an effort to learn all you can about depression. ? Help the person with depression follow his or her treatment plan as directed by health care providers. This could mean driving him or her to therapy sessions or suggesting ways to manage stress. ? Ask the person if you may join him or her for a therapy session or go with him or her to health care visits. Joining the pers (more content not included)... [facility] Patient Education Nutrition BMI for Adults What is BMI? Body mass index (BMI) is a number that is calculated from a person's weight and height. BMI can help estimate how much of a person's weight is composed of fat. BMI does not measure body fat directly. Rather, it is an alternative to procedures that directly measure body fat, which can be difficult and expensive. BMI can help identify people who may be at higher risk for certain medical problems. What are BMI measurements used for? BMI is used as a screening tool to identify possible weight problems. It helps determine whether a person is obese, overweight, a healthy weight, or underweight. BMI is useful for: ? Identifying a weight problem that may be related to a medical condition or may increase the risk for medical problems. ? Promoting changes, such as changes in diet and exercise, to help reach a healthy weight. BMI screening can be repeated to see if these changes are working. How is BMI calculated? BMI involves measuring your weight in relation to your height. Both height and weight are measured, and the BMI is calculated from those numbers. This can be done either in [place] ([place] or metric measurements. Note that charts and online BMI calculators are available to help you find your BMI quickly and easily without having to do these calculations yourself. To calculate your BMI in [place]e ([place] measurements: 1. Measure your weight in pounds (lb). 2. Multiply the number of pounds by 703. ? For example, for a person who weighs 180 lb, multiply that number by 703, which equals 126,540. 3. Measure your height in inches. Then multiply that number by itself to get a measurement called inches squared. ? For example, for a person who is 70 inches tall, the inches squared measurement is 70 inches x 70 inches, which equals 4,900 inches squared. 4. Divide the total from step 2 (number of lb x 703) by the total from step 3 (inches squared): 126,540 ? 4,900 = 25.8. This is your BMI. To calculate your BMI in metric measurements: 1. Measure your weight in kilograms (kg). 2. Measure your height in meters (m). Then multiply that number by itself to get a measurement called meters squared. ? For example, for a person who is 1.75 m tall, the meters squared measurement is 1.75 m x 1.75 m, which is equal to 3.1 meters squared. 3. Divide the number of kilograms (your weight) by the meters squared number. In this example: 70 ? 3.1 = 22.6. This is your BMI. What do the results mean? BMI charts are used to identify whether you are underweight, normal weight, overweight, or obese. The following guidelines will be used: ? Underweight: BMI less than 18.5. ? Normal weight: BMI between 18.5 and 24.9. ? Overweight: BMI between 25 and 29.9. ? Obese: BMI of 30 or above. Keep these notes in mind: ? Weight includes both fat and muscle, so someone with a muscular build, such as an athlete, may have a BMI that is higher than 24.9. In cases like these, BMI is not an accurate measure of body fat. ? To determine if excess body fat is the cause of a BMI of 25 or higher, further assessments may need to be done by a health care provider. ? BMI is usually interpreted in the same way for men and women. Where to find more information For more information about BMI, including tools to quickly calculate your BMI, go to these websites: ? Centers for Disease Control and Prevention: www.cdc.gov ? [place] Heart Association: www.heart.org ? National Heart, Lung, and Blood Simpson: www.nhlbi.nih.gov Summary ? Body mass index (BMI) is a number that is calculated from a person's weight and height. ? BMI may help estimate how much of a person's weight is composed of fat. BMI can help identify those who may be at higher risk for certain medical problems. ? BMI can be measured using Nepalese measurements or metric measurements. ? BMI charts are used to identify whether you are underweight, normal weight, overweight, or obese. This information is not intended to replace advice given to you by your health care provider. Make sure you discuss any questions you have with your health care provider. Document Revised: 08/10/2020 Document Reviewed: 06/17/2020 [employer] Patient Education ? 2022 [employer] [facility] Home Recordson 04-17 [facility] Records [id number]#1.00TIFF [facility] Home Recordson 04-07 [facility] Records [id number]#1.00TIFF [facility] Halfway Recordson 04-06 [facility] Records [id number]#1.00TIFF [facility] Consent for Procedure/Surger yon 04-02-2024 Consent for Procedure/Surgery [id number]#1.00TIFF [facility] Halfway Recordson 03-31 [facility] Records [id number]#1.00TIFF [facility] Consent for Procedure/Surger yon 03-30-2024 Consent for Procedure/Surgery [id number]#1.00TIFF [facility] Consent for Treatmenton 03-03 Consent for Treatment [id number]#1.00TIFF [facility] ED Note-Physicianon 03-30-20 ED Note-Physician [id number]#1.00TIFF [facility] Inpatient Patient Summaryon 03-30-2024 Inpatient Patient Summary [place] [id number] Clinical Summary Person Information Name: MALCOM KNOWLES Age: 68 Years : 1955 Sex: Female PCP: Jose Snow MD Marital Status: Race: White Ethnicity: Non- or Language: Nepalese Visit Id: Visit Reason: URINARY INCONTINENCE Speciality: Acuity: Enc Type: Outpatient Med Service: Surgery Arrival: 03/30/2024 14:05:10 Discharge: Dispo Type: Address: [address] [place] [address] [id number] Provider Notes: Diagnosis: Problems Active Urge incontinence (Idiopathic) normal pressure hydrocephalus Frequent falls Confusion Urethral stricture Gross hematuria Mixed incontinence Major depressive disorder with single episode, in full remission Stage 3b chronic kidney disease (CKD) Hx of Guillain-[place] syndrome Morbid obesity 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 Insulin long-term use Gait disorder Migraines Diabetic retinopathy History of Uterine cancer HTN (hypertension) Hypercholesterolem ia Essential tremor Vitamin D deficiency CKD (chronic kidney disease) stage 3, GFR 30-59 ml/min ASCVD (arteriosclerotic cardiovascular disease) BMI 50.0-59.9, adult Smoking Status: Functional Status: Sensory Deficits: History of Falls: Mobility Assistance Prior to Admission: ADLs: Current Level of Assistance for Self-Care/Mobility : Cognitive Status: Allergies sulfa drugs (Unknown) influenza virus vaccine, inactivated Laboratory or Other Results This Visit (last charted value for your 03/30/2024 visit) No Laboratory or Other Results This Visit Measurements: Height: 160 cm Weight: Blood Pressure: Not Valued / [...] tablet, chewable) 2 Tablets Chewed at bedtime. cephalexin (Keflex 500 mg Cap) 1 Capsules By Mouth every 12 hours. Refills: 0. cetirizine (cetirizine 5 mg oral tablet) 1 Tablets By Mouth every day. cholecalciferol (Vitamin D3 1000 intl units (25 mcg) Tab) 1 Tablets By Mouth every day. ciprofloxacin (Cipro 500 mg Tab) 1 Tablets By Mouth 2 times a day. Take twice daily x5 days starting the day prior to the procedure. Refills: 0. clopidogrel (Plavix 75 mg Tab) [...] every day. as needed for constipation. memantine (mem (more content not included)... [facility] IntraOperative Documentson 0 03-30-2024 IntraOperative Documents [id number]#1.00TIFF [facility] Main OR Intraoperative Recor don 03-30-2024 Main OR Intraoperative Record IntraOp Document Type FTURO Summary Primary Physician: Joe BOOTH MD Finalized Date/Time: 03/30/24 15:05:26 Pt. Name: MALCOM KNOWLES/Sex: 1955 Female Med Rec #: [id number] Physician: Joe BOOTH MD Financial #: [id number] Pt. Type: O Room/Bed: / Admit/Disch: 03/30/24 14:05:10 - Institution: Case Times FTURO Entry 1 Patient Times In Room 03/30/24 14:43:00 Out Room 03/30/24 14:59:00 Procedure Times Start 03/30/24 14:46:00 Stop 03/30/24 14:54:00 Anesthesia Times Last Modified By: Juan Manuel DE LOS SANTOS, JOSE LUISOR, Samaria 03/30/24 14:52:55 Case Attendance FTURO Entry 1 Entry 2 Entry 3 Case Attendee EMMY JUDGE, Joe Zambrano RN, CNOR, Frank Quarles Role Performed Surgeon - Primary Cable Installer Repairer Helper - Primary Scrub - Primary Time In 03/30/24 14:43:00 03/30/24 14:43:00 03/30/24 14:43:00 Time Out 03/30/24 14:59:00 03/30/24 14:59:00 03/30/24 14:59:00 Procedure CYSTOSCOPY LOCAL BOTOX CYSTOSCOPY LOCAL BOTOX CYSTOSCOPY LOCAL BOTOX INJECTION(.) INJECTION(.) INJECTION(.) Comments Last Modified By: Juan Manuel DE LOS SANTOS, CNOR, Juan Manuel DE LOS SANTOS, JOSE LUISOR, Juan Manuel DE LOS SANTOS, JOSE LUISOR, Samaria 03/30/24 Samaria 03/30/24 Samaria 03/30/24 14:52:56 14:52:56 14:52:56 Surgical Procedures FTURO Entry 1 Procedure Description Procedure CYSTOSCOPY LOCAL BOTOX Modifiers . INJECTION Surgeon Description CYSTO WITH 100 UNITS BOTOX Primary Procedure Yes Primary Surgeon Joe BOOTH MD Start 03/30/24 14:46:00 Stop 03/30/24 14:54:00 Anesthesia Type Local Surgical Service Urology Wound Class 2 - Clean-Contaminated Last Modified By: Juan Manuel DE LOS SANTOS, JOSE LUISOR, Samaria 03/30/24 14:53:18 General Comments: botox 100 outdate 04/26 lot [id number] General Case Data FTURO Pre-Care Text: Classifies surgical wound, implements aseptic technique, initiates traffic control Entry 1 Case Information OR URO 1 FT Case Level None Wound Class 2 - Clean-Contaminated Specialty Urology Preop Diagnosis URINARY INCONTINENCE Postop Same As Preop Yes Postop Diagnosis URINARY INCONTINENCE Outcomes Met? Yes Last Modified By: Juan Manuel RAJESH DE LOS SANTOS Ruthann 03/30/24 14:13:46 Post-Care Text: The patient is free from signs and symptoms of infection EU IntraOp - FTURO Pre-Care Text: Implements protective measures prior to operative or invasive procedure, confirms identity before the operative or invasive procedure, verifies operative procedure, surgical site, and laterality Entry 1 EU Perioperative Protocols Procedure(s) CYSTOSCOPY LOCAL BOTOX Patient Identity Birthday, ID Band INJECTION(.) Verified (select at Check, Patient least 2): Participation Consents / H and P HandP, Surgery/Procedure Operative Site N/A Verified Consent Marking Verified Surgical Site Yes Laterality Verified n/a Verified Procedure Verified Yes Correct Patient Yes Position Verified Availability Equipment, Medication Time Out Joe BOOTH MD, Verified (If Participants RAJESH Zambrano RN, Applicable) Robina Mera Kendall R Time Out Complete 03/30/24 14:44:00 Allergies Reviewed? Yes Allergies Reviewed Self/Patient With Body Position Low Lithotomy Prep Area perineal area Prep Agents Betadine Solution Skin. Condition Unable to Visualize Additional None Specimens Comment checked urine pre-op Specimens Collected Vitals - EU Blood Pressure 156/77 Pulse 73 bpm Respirations 18 br/min SPO2 EBL 0 IandO - EU Total Intake 0 mL Total Output 0 mL Outcomes Met? Yes Last Modified By: RAJESH Zambrano RN, Ruthann 03/30/24 14:49:38 Post-Care Text: The patient is free from [...] name), if applicable addressed Sign Out Complete 03/30/24 14:56:00 Last Modified By: RAJESH Zambrano RN, Ruthann 03/30/24 14:53:07 Case Comments Finalized By: RAJESH Zambrano RN, Ruthann Document Signatures Signed By: RAJESH Zambrano RN, Ruthann 03/30/24 14:53 RAJESH Zambrano RN, Ruthann 03/30/24 15:05 [facility] Main OR Preoperative Recordo n 03-30-2024 Main OR Preoperative Record Holding Area Document Type FTURO Summary Primary Physician: Joe BOOTH MD Finalized Date/Time: 03/30/24 14:44:32 Pt. Name: MALCOM KNOWLES /Sex: 1955 Female Med Rec #: [id number] Physician: Joe BOOTH MD Financial #: [id number] Pt. Type: O Room/Bed: / Admit/Disch: 03/30/24 14:05:10 - Institution: Case Times Holding FTURO Pre-Care Text: Verifies consent for planned procedure, identifies individual values and wishes concerning care, includes family members in perioperative teaching Secures patient's records' belongings, and valuables, maintains patient's dignity and privacy, and maintains patient confidentiality Entry 1 In Holding 03/30/24 14:20:00 Outcomes Met? Yes Last Modified By: Michelle Bedolla RN 03/30/24 14:36:21 Post-Care Text: The patient participates in decisions affecting his or her perioperative plan of care The patient's right to privacy is maintained Surgery Checklist FTURO Entry 1 Patient Birthday, ID Band Procedure History and Physical, Identification: Check, Patient Verification: Surgical Consent, With Participation Patient NPO after Midnight: n/a Personal Items none Comment: Limitations: up with walker for Complaints of Pain: No short distances; wheelchair for longer distances Pain Comment: 0/10 Skin Integrity Dry, Warm Vitals - EU Blood Pressure 156/77 Pulse 73 bpm Respirations 16 br/min SPO2 96 % Additional Other (See Comment) Specimens Comment urine dipstick Specimens Collected RN Reviewed Yes Last Modified By: Michelle Bedolla RN 03/30/24 14:38:21 Finalized By: Michelle Bedolla RN Document Signatures Signed By: Michelle Bedolla RN 03/30/24 14:38 Michelle Bedolla RN 03/30/24 14:44 [facility] Operative Reporton Operative Report Patient: MALCOM KNOWLES Age: 68 years Sex: Female : 1955 Associated Diagnoses: None Author: Joe BOOTH MD Procedure Operative Information Details: Date/ Time: 03/30/2024 14:55:00. Pre-Op Dx: Overactive bladder (LEZ02-KH N32.81, Working, Medical), Urgency incontinence (CID84-KF N39.41, Working, Medical). Post-Op Dx: Same. Anesthesia Type: Local. Procedure: Local Cystoscopy with botox injection. Complications: None. Risks/Benefits/Inf ormed Consent: Surgical risks, benefits, details of the procedure have been explained to the patient, Full informed consent has been obtained. Intraoperative Information Prepped: Patient is brought back to the endoscopy suite, Female Prep (Patient is placed in modified dorso/lithotomy position, 5 cc 2% Xylocaine Jelly is placed per Urethra, Straight cath inserted to obtain urine specimen, 60 cc 2% Xylocaine liquid inserted into bladder, 5 additional cc 2% Xylocaine Jelly is placed per Urethra, Patient in sitting position for 20 min dwell), Urine Specimen Results Negative for infection, Patient prepped in the usual fashion with Betadine solution, 10 cc 2% Xylocaine Jelly is placed per Urethra, After waiting several minutes the Cystoscope is introduced. Procedure: The trigone was identified and evaluated, 20 template injection sites were identified, The bladder was instilled with enough saline to achieve adequate visualization for the injections, The needle was inserted approximately 2 mm into the detrusor spaced approximately 1 cm apart, A total of 20 injections with a 0.5 ml volume was delivered at each site for a total of 100 units of Botox. The Urethra is: Normal. Botox: 100 units. The ureteral orifices: Show efflux of clear urine. The Bladder is: Normal, Trabeculated Moderate (2), No tumor, no stones. . Devices Implanted: None. Removal: Cystoscope is removed, The patient tolerated it well. Postoperative Information Discharge: Patient is discharged home with antibiotic coverage, Follow up arranged, F/U with Domonique Graham PA-C within six weeks with bladder scan PVR.. [facility] Comment on above: Result Comment: Elec tronically Signed By: Joe BOOTH MD\.br\Date and Time Signed: 03/30/24 14:56 EDT Outpatient Surgery Discharge Instructionon 03-30-2024 Outpatient Surgery Discharge Instruction [id number]#1.00TIFF [facility] Outpatient Surgery Discharge Instruction [address] [address] Patient Discharge Instructions PERSON INFORMATION Name: MALCOM KNOWLES Date of : 1955 Current Date: 03/30/2024 14:54:52 PHYSICIANS Admitting Physician: Joe BOOTH MD Comment: Discharge Diagnosis: MALCOM KNOWLES has been given the following list of follow-up instructions, prescriptions, and patient education materials: IF UNABLE TO CONTACT YOUR PHYSICIAN AND YOU FEEL IT IS AN EMERGENCY, GO TO THE NEAREST EMERGENCY ROOM OR CALL 911 Follow up: With: Address: When: BRIGIDA GRAHAM [address] [place] [phone] [facility] (1) In 6 weeks 05/11/2024 Comments: Call for followup appointment, with a bladder scan to check on bladder emptying. Type Location Start [facility] [address] Medicare Wellness [facility] 04/28/2024 1:00 PM 04/28/2024 2:00 PM Confirmed [facility] 04/28/2024 2:00 PM 04/28/2024 2:15 PM Confirmed Comment: PATIENT EDUCATION INFORMATION Instructions: Cystoscopy with Botox injection ? Voiding after the procedure: there may be some pain, burning, urgency, frequency and blood tinged urine following the procedure. These symptoms usually resolve within 2-5 days. Drink the amount of fluid it takes to keep the urine pink to yellow or clear in color. Drinking enough water and fluids will help to ease any discomfort after your procedure. ? It may take a few days to a week to notice a gradual improvement in the overactive bladder symptoms. ? If you are having problems that seem out of the ordinary, please call. ? If unable to contact your physician and you feel it is an emergency, go to the nearest emergency room or call 911 ? Do not lift more than fifteen pounds for 1-2 days. If you see a lot of blood, you probably did too much. ? Diet ? you may resume your normal diet. ? Pain control ? You may take extra strength Tylenol or Motrin for discomfort. ? Call if you have a fever over 100 degrees. BENSON Cheema PATRICIA A, have received the attached patient education materials/instruct [...] to serve you. Thank you for choosing [facility] RAD - CT Reporton 03-30-2024 RAD - CT Report [id number]#1.00TIFF [facility]way Recordson 03-23 [facility] Records [id number]#1.00TIFF [facility] Records [id number]#1.00TIFF [facility] Records [id number]#1.00TIFF [facility] Lab Reportson 03-20-2024 Lab Reports [id number]#1.00TIFF [facility] Lab Reports [id number]#1.00TIFF [facility] ED Note-Physicianon 03-19-20 ED Note-Physician [id number]#1.00TIFF [facility] RAD - CT Reporton 03-19-2024 RAD - CT Report [id number]#1.00TIFF [facility] RAD - MISCon 03-19-2024 RAD - MISC [id number]#1.00TIFF [facility] RAD - MISC [id number]#1.00TIFF [facility] Lab Reportson 03-18-2024 Lab Reports [id number]#1.00TIFF [facility] Lab Reports [id number]#1.00TIFF [facility] Recordson 03-18 Halfway Records [id number]#1.00TIFF Normal [facility] Halfway Records [id number]#1.00TIFF Normal [facility] Halfway Recordson 03-16 Halfway Records [id number]#1.00TIFF Normal [facility] Retail - Clinical Noteon Retail - Clinical Note [id number]#1.00TIFF Normal [facility] C-Peptideon 02-26-2024 C peptide [Mass/Vol] 2.3 ng/mL Invalid Interpretation Code 1.1-4.4 [facility] Comment on above: Result Comment: C-Pe ptide reference interval is for fasting patients. Performed at: [facility] [id number] PhD Lisa Avery Performed By: #### 1 [id number], [id number] #### [facility] [address] [place] [address] Consultation Noteon 02-26-20 24 Consultation Note [id number] 5FAD#1.00TIFF Normal [facility] Consultation Note [id number]#1.00TIFF Normal [facility] PTH Intacton 02-26-2024 Parathyrin.intact [Mass/Vol] 33 pg/mL Invalid Interpretation Code [facility] Comment on above: Result Comment: Perf ormed at: [facility] [id number] PhD Lisa Avery Performed By: #### 1 5000042 #### [facility] [address] [place] [address] CBC w/ Auto Diffon 4 Basophils/100 WBC (Bld) 0.5 % Normal 0.0-2.0 [facility] Comment on above: Performed By: #### 2 241938, 8346504, 9611301, 3654266, 68164746, 0890165, 0194162, 5761715, 9409945, 146325165, 57122054, 593995519, 6287143, 9373479 ####[facility] [address] [place] [address] Basophils/Leukocyt es Auto (Bld) [Pure # fraction] 0.0 E9/L Normal 0.0-0.2 [facility] Comment on above: Performed By: #### 2 583327, 7834285, 2484323, 1956478, 66006005, 8344909, 5745847, 5603296, 0133859, 468588934, 52496426, 684659203, 0312333, 4605510 ####[facility] [address] [place] [address] Eosinophils (Bld) [#/Vol] 0.4 E9/L Normal 0.0-0.5 [facility] Comment on above: Performed By: #### 2 389807, 9523373, 4875213, 2532854, 22461426, 4515756, 7821527, 9363068, 9905604, 763214832, 94272798, 469095344, 8785130, 1354045 ####[address] [place] [address] Eosinophils/100 WBC (Bld) 6.1 % Normal 0.0-8.0 [facility] Comment on above: Performed By: #### 2 704009, 6751655, 1674861, 7945396, 13003851, 2472017, 2806004, 9933993, 0514007, 771391033, 94248394, 653262404, 1385212, 7665904 ####[facility] [address] [place] [address] Erythrocyte distribution width (RBC) [Ratio] 13.9 % Normal 10.9-14.2 [facility] Comment on above: Performed By: #### 2 870911, 1394548, 7423532, 5832387, 97075362, 6589256, 6646111, 1859666, 5522887, 997667763, 23675517, 567415957, 1630504, 2581082 ####[facility] [address] [place] [address] Hematocrit (Bld) [Volume fraction] 38.0 % Normal 34.0-46.0 [facility] Comment on above: Performed By: #### 2 537867, 8783830, 0338274, 0316118, 07046690, 1712217, 4586308, 8333725, 4061148, 477092955, 83035218, 066365735, 7837932, 8393869 ####[facility] [address] [place] [address] Hemoglobin (Bld) [Mass/Vol] 12.4 g/dL Normal 12.0-16.0 [facility] Comment on above: Performed By: #### 2 116813, 5611505, 4519662, 4245435, 80052485, 8503209, 8496737, 6333011, 7560627, 809033296, 32978616, 269243811, 9200448, 5910986 ####[facility] [address] [place] [address] Lymphocytes (Bld) [#/Vol] 1.8 E9/L Normal 1.0-4.0 [facility] Comment on above: Performed By: #### 2 455090, 4736064, 2678789, 4606306, 37910804, 7600552, 5608112, 2356222, 5979785, 411389803, 79209090, 792016540, 4082223, 6778311 ####[facility] [address] [place] [address] Lymphocytes/100 WBC (Bld) 29.8 % Normal 14.0-50.0 [facility] Comment on above: Performed By: #### 2 739873, 7182008, 8194250, 2071000, 72491884, 7986189, 3161542, 9265827, 1219041, 481025433, 41983982, 193368834, 7104691, 0026552 ####[facility] [address] [place] [address] MCH (RBC) [Entitic mass] 29.4 pg Normal 27.0-34.0 [facility] Comment on above: Performed By: #### 2 822945, 4162488, 0955413, 6199130, 68576963, 5146456, 0158511, 1911593, 4338373, 061182301, 36705710, 684454924, 1584879, 4892452 ####[address] [place] [address] MCHC (RBC) [Mass/Vol] 32.6 g/dL Normal 31.4-36.0 [facility] Comment on above: Performed By: #### 2 373807, 0422961, 8618828, 4842950, 75570400, 3060301, 6387095, 3645505, 8353794, 381961865, 86604677, 082049368, 8247513, 5485834 ####[address] [place] [address] MCV (RBC) [Entitic vol] 90.1 fL Normal 80.0-100.0 [facility] Comment on above: Performed By: #### 2 282915, 0297677, 4202392, 9386163, 39488541, 7257667, 6807976, 9844820, 4028786, 578127691, 91985773, 784308860, 5345896, 7591710 ####[address] [place] [address] Monocytes (Bld) [#/Vol] 0.6 E9/L Normal 0.2-1.0 [facility] Comment on above: Performed By: #### 2 346878, 9489362, 7095534, 8351400, 24253463, 3944736, 8575603, 9995935, 4124568, 697359447, 01707888, 183395775, 5303355, 8044067 ####[facility] [address] [place] [address] Neutrophils (Bld) [#/Vol] 3.3 E9/L Normal 2.0-7.5 [facility] Comment on above: Performed By: #### 2 198116, 6992806, 9502939, 3491801, 55414814, 6799495, 5315037, 7869644, 8011052, 180669510, 63767713, 882507288, 5348538, 3762118 ####[facility] [address] [place] [address] Neutrophils/100 WBC (Bld) 53.9 % Normal 36.0-75.0 [facility] Comment on above: Performed By: #### 2 323953, 1882479, 1790282, 2813674, 78989201, 1288970, 9837310, 0124146, 0942010, 793590576, 34995525, 233568079, 1031622, 8510309 ####[address] [place] [address] Platelet 266.0 E9/L Normal 150.0-500.0 [facility] Comment on above: Performed By: #### 2 576376, 6149871, 0363624, 5972523, 62868804, 8245151, 5145379, 9882640, 3081612, 365607579, 99689489, 762364171, 6695532, 3219838 ####[address] [place] [address] Platelet mean volume (Bld) [Entitic vol] 8.5 fL Normal 6.4-10.8 [facility] Comment on above: Performed By: #### 2 974412, 8573448, 5902063, 9681267, 06285917, 6562448, 6413044, 3376785, 6435367, 550304467, 53878645, 568965666, 5741551, 1160252 ####[address] [address] RBC (Bld) [#/Vol] 4.2 E12/L Low 4.3-5.9 [facility] Comment on above: Performed By: #### 2 440904, 6235769, 0477869, 2936503, 13565914, 8644066, 1641617, 6689363, 9545171, 131107241, 74123921, 420058808, 8680060, 8550788 ####[facility] [address] [place] [address] WBC corrected for nucl RBC Auto (Bld) [#/Vol] 6.1 E9/L Normal 4.0-11.0 [facility] Comment on above: Performed By: #### 2 671949, 4581408, 2027589, 8135284, 04110370, 2662091, 4040812, 3741952, 7171243, 155122158, 29340146, 825500160, 3645368, 0661710 ####[facility] [address] [place] [address] CHEMISTRYOrdered By: SYSTEM SYSTEM on 02-25-2024 Albumin [...] (Bld) [Mass fraction] 7.7 % High <=5.9% [facility] ChemAutoSS CMPon 02-25-2024 Albumin [Mass/Vol] 3.9 g/dL Normal 3.3-5.0 [facility] Comment on above: Performed By: #### 2 271880, 8862595, 7164742, 2344596, 45232769, 6873687, 3613303, 4847765, 5329008, 289902305, 35839258, 735743856, 9760184, 8908530 ####[facility] [address] [place] [address] Albumin/Globulin (S) [Mass conc ratio] 1.1 Normal 1.1-2.2 [facility] Comment on above: Performed By: #### 2 678880, 2401196, 7288890, 8825869, 92426642, 3304485, 5637776, 9133147, 8327887, 771707568, 84492643, 832816353, 2406906, 5642451 ####[address] [place] [address] ALP [Catalytic activity/Vol] 59 Int._Unit/L Normal 21-98 [facility] Comment on above: Performed By: #### 2 672710, 7312217, 7789125, 8401165, 19405775, 5458118, 2309910, 5322746, 4137515, 694805050, 22979832, 049252047, 0267876, 7369166 ####[address] [place] [address] ALT No additional P-5'-P [Catalytic activity/Vol] 20 Int._Unit/L Normal 6-46 [facility] Comment on above: Performed By: #### 2 286930, 4572465, 3677995, 1247019, 12680630, 1746041, 4229302, 6614042, 3614821, 681241685, 34214966, 368975797, 3557304, 8085930 ####[facility] [address] [place] [address] Anion gap [Moles/Vol] 12 mmol/L Normal 6-16 [facility] Comment on above: Performed By: #### 2 300972, 6422504, 7941210, 5809813, 90619460, 0697625, 5716645, 4463437, 1854404, 613309033, 54974604, 416654161, 8140878, 7745686 ####[facility] [address] [place] [address] AST [Catalytic activity/Vol] 20 Int._Unit/L Normal 5-43 [facility] Comment on above: Performed By: #### 2 001829, 5236764, 5123033, 4850546, 85305376, 2367553, 2380700, 0342216, 2414187, 521709618, 34819647, 096909328, 5641061, 0027074 ####[facility] [address] [place] [address] Bilirubin [Mass/Vol] 0.7 mg/dL Normal 0.0-1.1 [facility] Comment on above: Performed By: #### 2 056947, 2463369, 6313182, 2921123, 16309860, 6835900, 6521179, 4048247, 5096526, 739992006, 53857170, 460259057, 0628461, 5589521 ####[address] [place] [address] Calcium [Mass/Vol] 9.7 mg/dL Normal 8.9-11.1 [facility] Comment on above: Performed By: #### 2 037866, 3230643, 1012342, 5203103, 33101203, 9818270, 0989049, 9549316, 8034513, 494213523, 49131600, 684303928, 1056618, 2835476 ####[facility] [address] [place] [address] Chloride [Moles/Vol] 105 mmol/L Normal 101-111 [facility] Comment on above: Performed By: #### 2 894023, 5579790, 3184253, 1875580, 07662067, 9340165, 3090748, 5399618, 9076478, 784883750, 84036289, 175690614, 7443807, 1092411 ####[facility] [address] [place] [address] CO2 [Moles/Vol] 31 mmol/L Normal 21-31 [facility] Comment on above: Performed By: #### 2 907153, 5569228, 9223245, 7111029, 75313040, 1943025, 1308942, 0652472, 8542879, 279681877, 21350858, 302567857, 2404699, 3407958 ####[facility] [address] [place] [address] Creatinine [Mass/Vol] 1.5 mg/dL High 0.5-1.3 [facility] Comment on above: Performed By: #### 2 410718, 7400784, 9147837, 4286519, 16352319, 1087694, 2844474, 3037962, 8939012, 042873019, 07714808, 795847895, 0204863, 8479652 ####[facility] [address] [place] [address] Globulin (S) [Mass/Vol] 3.4 g/dL Normal 1.4-4.0 [facility] Comment on above: Performed By: #### 2 878477, 2129338, 2509792, 9750623, 68759088, 9348423, 9748479, 3199447, 4885903, 311190246, 01344417, 846058045, 5346780, 4142199 ####[facility] [address] [place] [address] Glucose [Mass/Vol] 93 mg/dL Normal 55-199 [facility] Comment on above: Performed By: #### 2 372692, 2790576, 8082358, 7946539, 94791645, 7380276, 3272862, 5852608, 5913395, 012245566, 19282268, 713848522, 2978025, 4160823 ####[facility] [address] [place] [address] Potassium [Moles/Vol] 3.6 mmol/L Normal 3.5-5.3 [facility] Comment on above: Performed By: #### 2 638171, 6944396, 7786879, 3392958, 28920148, 1133916, 5544333, 2526028, 5453921, 166210134, 29886161, 195722327, 0436327, 0146383 ####[facility] [address] [place] [address] Protein [Mass/Vol] 7.3 g/dL Normal 6.0-7.8 [facility] Comment on above: Performed By: #### 2 687314, 7319770, 6797835, 3708909, 59051240, 4545784, 1803179, 7611662, 6621559, 108393393, 98556537, 377162345, 7375627, 9222644 ####[facility] [address] [place] [address] Sodium [Moles/Vol] 144 mmol/L Normal 135-145 [facility] Comment on above: Performed By: #### 2 982046, 0193859, 0172903, 4354196, 52816648, 3906888, 9559210, 8667005, 7456378, 916386978, 83036329, 143943875, 8736224, 3421499 ####[facility] [address] [place] [address] Urea nitrogen [Mass/Vol] 21 mg/dL Normal 5-21 [facility] Comment on above: Performed By: #### 2 052487, 0185375, 1835787, 9226686, 44397960, 3982341, 0162804, 7612051, 2798364, 734420032, 37871855, 559388065, 1290784, 7899554 ####[facility] [address] [place] [address] Urea nitrogen/Creatinin e [Mass ratio] 14 No Units Normal 10-20 [facility] Comment on above: Performed By: #### 2 039362, 3386329, 0670360, 2102970, 43951966, 0923393, 0221550, 3268031, 9069733, 293943184, 15860356, 775294238, 9895424, 2170591 ####[address] [place] [address] Consent for Treatmenton 01-31 Consent for Treatment [id number] 1C34#1.00TIFF Normal [facility] Consent for Treatment [id number] 1A56#1.00TIFF Normal [facility] Ferritinon 02-25-2024 Ferritin [Mass/Vol] 69 ng/mL Normal 11-307 [facility] Comment on above: Performed By: #### 2 075717, 8634425, 7176056, 3707843, 63602007, 7013955, 0996672, 6042134, 3854139, 968995425, 19664894, 445095166, 8390741, 8238274 ####[address] [place] [address] Folateon 02-25-2024 Folate [Mass/Vol] ng/mL Normal >=6.7 [facility] Comment on above: Performed By: #### 2 169552, 0546670, 1507856, 6075939, 48732665, 1164778, 9358038, 4295518, 0526074, 159378625, 90564153, 832783347, 0126855, 4957410 ####[address] [place] [address] HEMATOLOGYOrdered By: SYSTEM SYSTEM on 02-25-2024 Basophils/100 [...] Normal 4.0 - 11.0 E9/L Remisol Heme [id number] 02-25-2024 HbA1c (Bld) [Mass fraction] 7.7 % High <=5.9 [facility] Comment on above: Performed By: #### 2 171791, 9955528, 7976607, 7008199, 02321843, 7099905, 3351731, 8461607, 7421268, 449536140, 13518951, 893808993, 8026165, 4876015 ####[facility] [address] [place] [address] Ironon 02-25-2024 Iron [Mass/Vol] 91 microgram/dL Normal 35-153 [facility] Comment on above: Performed By: #### 2 072439, 4154228, 2375305, 6829539, 22768862, 6277691, 4135292, 0779636, 7052044, 960500129, 46255402, 448896282, 6879774, 2768066 ####[facility] [address] [place] [address] Lipid Panelon 02-25-2024 Cholesterol [Mass/Vol] 112 mg/dL Low 120-200 [facility] Comment on above: Performed By: #### 2 859545, 5261037, 8561518, 1833402, 12130453, 7536387, 1087405, 8039525, 3999848, 558262147, 48235669, 030068071, 4727081, 1099720 ####[facility] [address] [place] [address] Cholesterol in HDL [Mass/Vol] 41 mg/dL Invalid Interpretation Code [facility] Comment on above: Result Comment: '>= 60 LOW RISK' '<= 40 HIGH RISK' Performed By: #### 2 811380, 9123633, 5897084, 6079091, 18920657, 0967956, 8650832, 6994062, 1819544, 480490052, 37364560, 738602935, 5306991, 6292916 ####[facility] [address] [place] [address] Cholesterol in LDL [Mass/Vol] 53 mg/dL Normal <=129 [facility] Comment on above: Performed By: #### 2 651669, 5218758, 2358090, 4418045, 60784986, 6013350, 8381013, 8405790, 7184407, 404168567, 83092457, 027951734, 0299575, 1155635 ####[facility] [address] [place] [address] Cholesterol in VLDL [Mass/Vol] 23 mg/dL Normal 7-40 [facility] Comment on above: Performed By: #### 2 226168, 2485673, 5317618, 3927399, 67619148, 6263638, 0893431, 5506740, 5757767, 410245363, 62135172, 781942440, 8619233, 9941540 ####[facility] [address] [place] [address] Triglyceride [Mass/Vol] 114 mg/dL Normal <=149 [facility] Comment on above: Performed By: #### 2 370294, 6782395, 9830405, 4437946, 57577136, 8207779, 6569893, 5943370, 1746433, 660477543, 97726018, 370878018, 3596738, 8102399 ####[facility] [address] [place] [address] Magnesiumon 02-25-2024 Magnesium [Mass/Vol] 2.0 mg/dL Normal 1.3-2.4 [facility] Comment on above: Performed By: #### 2 618803, 6977182, 9331015, 1284564, 54967959, 5573884, 3191137, 0187030, 0602548, 224698578, 18561853, 456916154, 8323974, 9288793 ####[facility] [address] [place] [address] Phosphoruson 02-25-2024 Phosphate [Mass/Vol] 4.0 mg/dL Normal 1.9-4.6 [facility] Comment on above: Performed By: #### 1 1636595, 5197697 #### [facility] [address] [place] [address] Phosphate [Mass/Vol] 4.0 mg/dL Normal 1.9-4.6 [facility] Comment on above: Performed By: #### 2 744748, 3417237, 2060998, 5846971, 61929228, 0587561, 0811347, 7924708, 2152573, 068266301, 43464829, 462421034, 3291148, 8369798 ####[facility] [address] [place] [address] Physician Orderon 02-25-2024 Physician Order [id number]#1.00TIFF Normal [facility] RAD - MISCon 02-25-2024 RAD - MISC [id number]#1.00TIFF Normal [facility] TIBC Calculatedon 02-25-2024 Iron binding capacity [Mass/Vol] 305 microgram/dL Normal 250-400 [facility] Comment on above: Performed By: #### 2 472742, 8054892, 6328491, 1764417, 12091286, 7839564, 4283574, 5459406, 5225015, 778599046, 63969364, 873169273, 9189328, 6364000 ####[facility] [address] [place] [address] Transferrin [Mass/Vol] 218 mg/dL Normal 200-370 [facility] Comment on above: Performed By: #### 2 039250, 8142430, 9966176, 4264613, 96910139, 4738889, 8598330, 4556466, 8000196, 491187108, 23397060, 719132423, 3501097, 2637255 ####[facility] [address] [place] [address] U MA/Cr Ratioon 02-25-2024 Albumin DL <= 20 mg/L (U) [Mass/Vol] 19.6 mg/dL High 0.0-1.9 [facility] Comment on above: Performed By: #### 1 311652390 #### [facility] [address] [place] [address] Albumin/Creatinine DL <= 20 mg/L (U) [Mass ratio] 327.2 mg/gm Cr High .0-30.0 [facility] Comment on above: Result Comment: 30-3 00 mg/g Cr indicates an increased risk for diabetic nephropathy. >300 mg/g Cr is consistent with clinical nephropathy. Performed By: #### 1 436193784 #### [facility] [address] [place] [address] U Creatinine 59.9 mg/dL Invalid Interpretation Code [facility] Comment on above: Performed By: #### 1 [id number] #### [facility] [address] [place] [address] U Microalbon 02-25-2024 Albumin DL <= 20 mg/L (U) [Mass/Vol] 20.2 mg/dL High 0.0-1.9 [facility] Comment on above: Performed By: #### 1 3326207, 1403094280, 7645353627 #### [facility] [address] [place] [address] U Protein/Creat Ratioon 01-31 Protein/Creatinine (U) [Ratio] 54.70 mg/gm Cr Normal .00-200.00 [facility] Comment on above: Performed By: #### 1 7261584, 5798898798, 8404104405 ####[facility] [address] [place] [address] U Creatinine 60.2 mg/dL Invalid Interpretation Code [facility] Comment on above: Performed By: #### 1 3250745, 8243409022, [id number] ####[facility] [address] [place] [address] Ur Total Protein 32.9 mg/dL Invalid Interpretation Code [facility] Comment on above: Performed By: #### 1 1297232, 2930364522, 1953996177 ####[facility] [address] [place] [address] URINALYSISOrdered By: SYSTEM SYSTEM on 02-25-2024 Color (U) Light-Yellow 1 (02/25/24 2:30 PM) Normal Yellow [facility] UA Auto SS Comment on above: Interpretive Data: M icroscopic readings are only performed on those samples that meet specific criteria set forth by [facility]. Glucose (U) [Mass/Vol] Negative Normal Negativemg/dL [facility]A Auto SS Ketones Ql (U) Negative Normal Negativemg/dL [facility]A Auto SS UA Blood Negative Normal Negativemg/dL [facility] Aut o SS UA Clarity Clear (02/25/24 2:30 PM) Normal Clear [facility] UA Auto SS UA Leuk Est Negative Normal NegativeLeu/uL [facility] A uto SS UA Nitrite Negative Normal Negativemg/dL [facility] UA Aut o SS UA pH 5.0 *NA* (02/25/24 2:30 PM) Invalid Interpretation Code 5.0 - 9.0 [facility] UA Auto SS UA Protein Trace mg/dL Invalid Interpretation Code Negativemg/dL [facility] UA Auto SS UA Spec Grav 1.014 *NA* (02/25/24 2:30 PM) Invalid Interpretation Code 1.005 - 1.030 [facility] UA Auto SS UA Urobilinogen Negative Normal Negativemg/dL [facility] U A Auto SS Urobilinogen (U) [Mass/Vol] Negative Normal Negativemg/dL [facility] UA Auto SS URINALYSISOrdered By: Mai Lui on 02-25-2024 UA Spec Desc Clean Catch (02/25/24 2:30 PM) Normal [facility] UA Auto SS Uric Acidon 02-25-2024 Urate (U) [Mass/Vol] 4.4 mg/dL Normal 2.2-7.4 [facility] Comment on above: Performed By: #### 2 130095, 3940853, 9335345, 5693846, 23668737, 1513642, 0640277, 9747709, 8567551, 849102448, 23877955, 854479232, 6527309, 3008363 ####[facility] [address] [place] [address] Urinalysis with Microon 01-31 Color (U) Light-Yellow Normal Yellow [facility] Comment on above: Result Comment: Micr oscopic readings are only performed on those samples that meet specific criteria set forth by [facility]. Performed By: #### 1 4561630, [id number], [id number] #### [facility] [address] [place] [address] Glucose (U) [Mass/Vol] Negative Normal Negative [facility] Comment on above: Performed By: #### 1 5472673, 5828437836, 6891942407 #### [facility] [address] [place] [address] Ketones Ql (U) Negative Normal Negative [facility] Comment on above: Performed By: #### 1 0597592, 1202552244, [id number] #### [facility] [address] [place] [address] UA Blood Negative Normal Negative [facility] Comment on above: Performed By: #### 1 6057763, 9638646599, [id number] #### [facility] [address] [place] [address] UA Clarity Clear Normal Clear [facility] Comment on above: Performed By: #### 1 0230892, 3821843844, 7377019305 #### [facility] [address] [place] [address] UA Leuk Est Negative Normal Negative [facility] Comment on above: Performed By: #### 1 2899200, 0289401382, 7577227066 #### [facility] [address] [place] [address] UA Nitrite Negative Normal Negative [facility] Comment on above: Performed By: #### 1 7079423, 4854013011, 1921503048 #### [facility] [address] [place] [address] UA pH 5.0 Invalid Interpretation Code 5.0-9.0 [facility] Comment on above: Performed By: #### 1 6904666, 1321122494, [id number] #### [facility] [address] [place] [address] UA Protein Trace Abnormal Negative [facility] Comment on above: Performed By: #### 1 [id number], [id number], [id number] #### [facility] [address] [place] [address] UA Spec Grav 1.014 Invalid Interpretation Code 1.005-1.030 [facility] Comment on above: Performed By: #### 1 [id number], [id number], [id number] #### [facility] [address] [place] [address] UA Urobilinogen Negative Normal Negative [facility] Comment on above: Performed By: #### 1 [id number], [id number], [id number] #### [facility] [address] [place] [address] Urobilinogen (U) [Mass/Vol] Negative Normal Negative [facility] Comment on above: Performed By: #### 1 [id number], [id number], [id number] #### [facility] [address] [place] [address] UA Spec Desc Clean Catch Normal [facility] Comment on above: Performed By: #### 1 [id number], [id number], [id number] #### [facility] [address] [place] [address] Vit B12on 02-25-2024 Cobalamin (Vitamin B12) [Mass/Vol] pg/mL Normal 50-1500 [facility] Comment on above: Performed By: #### 2 [id number], 8638055, 7497320, 3858061, 21161968, 8136929, 4861264, 4128208, 1659923, [id number], 03768343, [id number], 0768000, 2750080 ####[facility] [address] [place] [address] Vitamin D 25 Hydroxyon 02-24 25-hydroxyvitamin D3 [Mass/Vol] 44.1 ng/mL Normal 30.0-100.0 [facility] Comment on above: Performed By: #### 2 770457, 7667656, 0009344, 1669475, 14054460, 4798401, 7227205, 9777423, 6100926, [id number], 53880478, [id number], 3159295, 8672660 ####[facility] [address] [place] [address] eGFRon 02-25-2024 eGFR 37 mL/min/1.73 m2 Low >=59 [facility] Comment on above: Order Comment: Order added by Discern Expert. Performed By: #### 2 [id number], 7569748, 5324932, 7299641, 95210480, 1187146, 3532544, 4726743, 6192188, [id number], 28233574, [id number], 5310792, 5576924 ####[facility] [address] [place] [address] Ambulatory Visit Summaryon 0 02-24-2024 Ambulatory Visit [...] Appointments Saturday 9:30 AM EDT With: Where: [facility] Saturday 2:30 PM EDT With: Where: [facility] Saturday 1:00 PM EDT With: Where: [facility] Invalid Interpretation Code [address] [place] [address]- \.br\ You Need to Complete the Following\.br\ CBC w/ Auto Diff, Blood, Routine collect, 02/24/24, Order for future visit, Lab Collect, CKD (chronic kidney disease) stage 3, GFR 30-59 ml/min [facility] Ambulatory Visit Summary MALCOM KNOWLES :1955 [...] Appointments Saturday 9:30 AM EDT With: Where: [facility] Saturday 2:30 PM EDT With: Where: [facility] Saturday 1:00 PM EDT With: Where: [facility] Normal [address] [place] [address]- \.br\ Medications\.br\ What How Much When Why [...] of Uterine cancer\.br\ HTN (hypertension)\.br\ 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 YELLOW YELLOW [facility] Erythrocyte distribution wid th Auto (RBC) [Ratio]on 02-24-2024 Erythrocyte distribution width (RBC) [Ratio] 13.4 % 11.0-15.0 [facility] Estimated glomerular filtrat ion rate (GFR) non- Americanon 02-24-2024 GFR/1.73 sq M.predicted among non-blacks MDRD (S/P/Bld) [Vol rate/Area] 32 mL/min/{1.73_m2} >=60 [facility] Family Medicine Office/Clini c Noteon 02-24-2024 Family Medicine Office/Clinic Note HPI Staff Malcom [...] Urine Most (more content not included)... Normal [facility] Comment on above: Result Comment: Elec tronically Signed By: Kaushal JUDGE, Jose Lau\.br\Date and Time Signed: 02/24/24 10:51 EDT Globulin Calc (S) [Mass/Vol] on 02-24-2024 Globulin (S) [Mass/Vol] 4.4 g/dL [facility] Hematocrit Auto (Bld) [Volum e fraction]on 02-24-2024 Hematocrit (Bld) [Volume fraction] 37.6 % 36.0-48.0 [facility] Hemoglobin [Mass/volume] in Bloodon 02-24-2024 Hemoglobin (Bld) [Mass/Vol] 12.0 g/dL 12.0-16.0 [facility] Iron binding capacity [Mass/ volume] in Serum or Plasmaon 02-24-2024 Iron binding capacity [Mass/Vol] 264.0 ug/dL 250.0-450.0 [facility] Iron saturation [Mass Fracti on] in Serum or Plasmaon 02-24-2024 Iron saturation [Mass fraction] 23.9 % [facility] Ketones Auto test strip (U) [Mass/Vol]on 02-24-2024 Ketones (U) [Mass/Vol] Negative NEGATIVE [facility] Laboratory - Chemistry and C hemistry - challengeon 02-24-2024 Albumin [Mass/Vol] 3.1 g/dL 3.4-5.0 [facility] ALP [Catalytic activity/Vol] 77 U/L 46-116 [facility] ALT [Catalytic activity/Vol] 35 U/L 14-59 [facility] AST [Catalytic activity/Vol] 23 U/L 15-37 [facility] Bilirubin [Mass/Vol] 0.5 mg/dL 0.2-1.0 [facility] Calcium [Mass/Vol] 9.3 mg/dL 8.5-10.1 [facility] Chloride [Moles/Vol] 105 mmol/L 98-107 [facility] CO2 [Moles/Vol] 31.9 mmol/L 21.0-32.0 [facility] Cobalamin (Vitamin B12) [Mass/Vol] 2977.0 pg/mL 193.0-986.0 [facility] Creatinine [Mass/Vol] 1.58 mg/dL 0.55-1.02 [facility] Ferritin [Mass/Vol] 117.0 ng/mL 8.0-252.0 [facility] GFR/1.73 sq M.predicted MDRD (S/P/Bld) [Vol rate/Area] 39 mL/min/{1.73_m2} >=60 [facility] Glucose [Mass/Vol] 101 mg/dL 74-106 [facility] Iron [Mass/Vol] 63.0 ug/dL 50.0-170.0 [facility] Magnesium [Mass/Vol] 1.9 mg/dL 1.8-2.4 [facility] Potassium [Moles/Vol] 3.9 mmol/L 3.5-5.1 [facility] Protein [Mass/Vol] 7.5 g/dL 6.4-8.2 [facility] Sodium [Moles/Vol] 145 mmol/L 136-145 [facility] Urate [Mass/Vol] 4.0 mg/dL 2.6-6.0 [facility] Urea nitrogen [Mass/Vol] 19.0 mg/dL 7.0-18.0 [facility] Urea nitrogen/Creatinin e [Mass ratio] 12.0 mg/mg [facility] Laboratory - Urinalysison Protein (U) [Mass/Vol] 25.8 mg/dL <=11.9 [facility] Leukocytes [#/volume] correc carmen for nucleated erythrocytes in Blood by Automated counon 02-24-2024 WBC corrected for nucl RBC Auto (Bld) [#/Vol] 7.5 10 3/uL 4.0-11.0 [facility] MCH Auto (RBC) [Entitic mass ]on 02-24-2024 MCH (RBC) [Entitic mass] 30.0 pg 26.7-34.0 [facility] MCHC Auto (RBC) [Mass/Vol]on 02-24-2024 MCHC (RBC) [Mass/Vol] 31.9 g/dL 29.9-35.2 [facility] MCV Auto (RBC) [Entitic vol] on 02-24-2024 MCV (RBC) [Entitic vol] 94.0 fL 81.0-99.0 [facility] No Panel Informationon 02-23 25-Hydroxy Vitamin D Total 50.0 ng/mL [facility] Comment on above: <20 ng/mL Vit D defi cient20-<30 ng/mL Vit D rosgsextkaoi88-470 ng/mL Vit D sufficient>100 ng/mL Potential Toxicity Folate 25.10 ng/mL 8.60-58.90 [facility] Phosphorus Level 3.7 mg/dL 2.6-4.7 [facility] Urine Random Creatinine 42.67 mg/dL 20.00-300.00 [facility] Halfway Recordson 02-23 Halfway Records [id number]#1.00TIFF Normal [facility] Platelet mean volume Auto (B ld) [Entitic vol]on 02-24-2024 Platelet mean volume (Bld) [Entitic vol] 10.5 fL 9.5-13.5 [facility] Platelets Auto (Bld) [#/Vol] on 02-24-2024 Platelets (Bld) [#/Vol] 244 10 3/uL 150-450 [facility] Protein Auto test strip (U) [Mass/Vol]on 02-24-2024 Protein (U) [Mass/Vol] Negative NEG/TRACE [facility] RBC Auto (Bld) [#/Vol]on RBC (Bld) [#/Vol] 4.00 10 6/uL 4.20-5.40 [facility] Serum or plasma albumin/glob ulin mass ratioon 02-24-2024 Albumin/Globulin [Mass ratio] 0.7 {ratio} [facility] Serum or plasma anion gap de terminationon 02-24-2024 Anion gap [Moles/Vol] 12.0 mmol/L [facility] Specific gravity Auto test s trip (U) [Rel density]on 02-24-2024 Specific gravity (U) [Rel density] CLEAR CLEAR [facility] Urine glucose measurement by test strip (mass/volume)on 02-24-2024 Glucose Test strip (U) [Mass/Vol] Negative NEGATIVE [facility] Urine hemoglobin detection b y automated test stripon 02-24-2024 Hemoglobin Auto test strip Ql (U) SMALL NEGATIVE [facility] Urine nitrite detection by a utomated test stripon 02-24-2024 Nitrite Auto test strip Ql (U) Negative NEGATIVE [facility] Urine protein/creatinine rat ioon 02-24-2024 Protein/Creatinine (U) [Ratio] 0.60 [facility] Urobilinogen Auto test strip (U) [Mass/Vol]on 03-25-2024 Urobilinogen Qn (U) 0.2 {Torres'U}/dL 0.2-1.0 [facility] pH Auto test strip (U)on pH (U) 5.5 [pH] 5.0-9.0 [facility] ED Note-Physicianon 02-20-20 ED Note-Physician [id number]#1.00TIFF Normal [facility] Screenson 02-07-2024 Screens [id number]#1.00TIFF Normal [facility] Half[facility] Recordson 02-05 Halfway Records [id number]#1.00TIFF [facility] Living Will/POAon 02-05-2024 Living Will/POA [id number] 6860#1.00TIFF Normal [facility] Halfway Recordson 02-04 Halfway Records [id number] 2E20#1.00TIFF [facility] Ambulatory Visit Summaryon 0 02-04-2024 Ambulatory Visit Summary MALCOM KNOWLES :1955 Visit Date:02/04/2024 Ambulatory Visit Instructions Your Care Team Attending Physician - BRIGIDA GRAHAM PA-C Primary Care Physician - Jose Snow MD. Referring Physician - BRIGIDA GRAHAM PA-C This Is Your Medications List Misc [...] EDT With: Kaushal JUDGE, Jose Lau Where: [facility] [place] Invalid Interpretation Code [address] [place] [address]- \.br\ Saturday 2:00 PM EDT \.br\ With: BRIGIDA GRAHAM PA-C\.br\ Where: [facility] Patient Educationon 02-04-20 Patient Education Obstetrics [...] health care provider. General instructions ? Take lmac-wmh-dhuzflf and prescription medicines only as told by [...] monitor yo (more content not included)... Normal [facility] Urology Office/Clinic Noteon 02-04-2024 Urology Office/Clinic [...] With When Contact Information [facility] [address] [place] [address] Business (1) Additional Instructions: our acid mixer will be contacting you for follow-up Patient Education Overactive Bladder, Adult Problem List/Past Medical History Ongoing (Idiopathic) normal pressure hydrocephalus ASCVD (arteriosclerotic cardiovascular disease) Benign hypertension with chronic kidney disease BMI 50.0-59.9, adult CKD (chronic kidney disease) stage 3, GFR 30-59 ml/min Confusion Diabetic retinopathy Essential tremor Frequent falls Frequent UTI Gait disorder Gross hematuria History of Uterine cancer HTN (hypertension) Hx of Guillain-[place] syndrome Hypercholesterolem ia Insulin long-term use Major [...] History of l (more content not included)... Normal [facility] Comment on above: Result Comment: Elec tronically Signed By: FARTUN MCCOLLUM, BRIGIDA Seals\.fani\Date and Time Signed: 02/04/24 12:37 EST Consultation Noteon 01-23-20 Consultation Note [id number]#1.00TIFF Normal [facility] Half[facility] Recordson 01-17 Halfway Records [id number]#1.00TIFF [facility] Consultation Noteon 01-13-20 Consultation Note [id number]#1.00TIFF Normal [facility] Consultation Note [id number]#1.00TIFF Normal [facility] Halfway Recordson 01-01 Halfway Records [id number]#1.00TIFF Normal [facility] Recordson 12-30 Halfway Records [id number]#1.00TIFF [facility] Halfway Recordson 12-25 Halfway Records [id number]#1.00TIFF [facility] Consent for Procedure/Surger yon 12-23-2023 Consent for Procedure/Surgery [id number]#1.00TIFF [facility] Consent for Treatmenton 12-03 Consent for Treatment [id number] 5FAE#1.00TIFF [facility] Inpatient Patient Summaryon 12-23-2023 Inpatient Patient Summary [place] [id number] Clinical Summary Person Information Name: MALCOM KNOWLES Age: 68 Years : 1955 Sex: Female PCP: Jose Snow MD Marital Status: Race: White Ethnicity: Non- or Language: Nepalese Visit Id: Visit Reason: URINARY INCONTINENCE URETERAL STRICTURE RECURRENT UTI Speciality: Acuity: Enc Type: Outpatient Med Service: Surgery Arrival: 12/23/2023 14:07:21 Discharge: Dispo Type: Address: [address] [place] [phone] Provider Notes: Diagnosis: Problems Active (Idiopathic) normal pressure hydrocephalus Frequent falls Confusion Polyuria Urethral stricture UTI (urinary tract infection) UTI symptoms Gross hematuria Mixed incontinence Major depressive disorder with single episode, in full remission Stage 3b chronic kidney disease (CKD) Hx of Guillain-[place] syndrome Morbid obesity Benign hypertension with chronic [...] 1 Table (more content not included)... Normal [facility] IntraOperative Documentson 0 12-23-2023 IntraOperative Documents [id number]#1.00TIFF Meg [facility] Main OR Intraoperative Recor don 12-23-2023 Main OR Intraoperative Record IntraOp Document Type FTURO Summary Primary Physician: Joe BOOTH MD Finalized Date/Time: 12/23/23 15:44:42 Pt. Name: MALCOM KNOWLES /Sex: 1955 Female Med Rec #: [id number] Physician: Joe BOOTH MD Financial #: [id number] Pt. Type: O Room/Bed: / Admit/Disch: 12/23/23 14:07:21 - Institution: Case Times FTURO Entry 1 Patient Times In Room 12/23/23 15:19:00 Out Room 12/23/23 15:39:00 Procedure Times Start 12/23/23 15:29:00 Stop 12/23/23 15:33:00 Anesthesia Times Last Modified By: Juan Manuel DE LOS SANTOS, RAJESH, Samaria 12/23/23 15:33:40 Case Attendance FTURO Entry 1 Entry 2 Entry 3 Case Attendee Joe BOOTH MD RN, CNOR, Mini Braswell Role Performed Surgeon - Primary Cable Installer Repairer Helper - Primary Scrub - Primary Time In 12/23/23 15:19:00 12/23/23 15:19:00 12/23/23 15:19:00 Time Out 12/23/23 15:39:00 12/23/23 15:39:00 12/23/23 15:39:00 Procedure CYSTOSCOPY LOCAL WITH CYSTOSCOPY LOCAL WITH CYSTOSCOPY LOCAL WITH URETHRAL DILATION(.) URETHRAL DILATION(.) URETHRAL DILATION(.) Comments Last Modified By: Juan Manuel RN, CNOR, Juan Manuel RN, JOSE LUISOR, Juan Manuel DE LOS SANTOS, JOSE LUISORSamaria 12/23/23 Samaria 12/23/23 Samaria 12/23/23 15:33:43 15:33:43 15:33:43 Surgical Procedures FTURO Entry 1 Procedure Description Procedure CYSTOSCOPY LOCAL WITH Modifiers . URETHRAL DILATION Surgeon Description cysto with UD Primary Procedure Yes Primary Surgeon Joe BOOTH MD 12/23/23 15:29:00 Stop 12/23/23 15:33:00 Anesthesia Type [...] UTI Last Modified By: RAJESH Zambrano RN, Ruthann 12/23/23 15:33:56 Post-Care Text: The patient is [...] (If Participants Juan Manuel DE LOS SANTOS, JOSE LUISOR, Applicable) French Mera Jessica D Time Out [...] RAJESH Zambrano RN, Ruthann 12/23/23 15:44 Normal [facility] Main OR Preoperative Recordo n 12-23-2023 Main OR Preoperative Record Holding Area Document Type FTURO Summary Primary Physician: Joe BOOTH MD Finalized Date/Time: 12/23/23 14:30:39 Pt. Name: MALCOM KNOWLES /Sex: 1955 Female Med Rec #: [id number] Physician: Joe BOOTH MD Financial #: [id number] Pt. Type: O Room/Bed: / Admit/Disch: 12/23/23 [...] Signed By: Michelle Bedolla RN 12/23/23 14:30 [facility] Operative Reporton Operative Report Patient: MALCOM KNOWLES [...] The Urethra is: Tight, Tight at 18 Kyrgyz. The Bladder is: Normal, Trabeculated Moderate (2), No tumors, no stones. Moderate retained urine.. The ureteral orifices: Show efflux of clear urine. The Urethra was dilated to: 30 Kyrgyz w/ sounds. Devices Implanted: None. Removal: Cystoscope [...] available on her nursing facility formulary.. Normal [facility] Comment on above: Result Comment: Elec tronically Signed By: Joe BOOTH MD\.br\Date and Time Signed: 12/23/23 15:48 EST Outpatient Surgery Discharge Instructionon 12-23-2023 Outpatient Surgery Discharge Instruction [address] [address] Patient Discharge Instructions PERSON INFORMATION Name: MALCOM [...] 911 Follow up: With: Address: When: BRIGIDA GRAHAM [address] [place] [phone] [facility] () Within 6 weeks Comments: Call for followup appointment, with a bladder scan for PVR at that visit. Monitor your urinary flow after the dilation of the channel today. Type Location Start Finish State URO Office Visit [facility] 02/04/2024 11:20 AM 02/04/2024 11:35 AM Confirmed FM Open [facility] 02/24/2024 10:15 AM 02/24/2024 10:25 AM Confirmed URO Office Visit [facility] 03/03/2024 2:00 PM 03/03/2024 2:15 PM [...] you have a fever over 100 degrees I, MALCOM KNOWLES, have received the attached patient education materials/instruct [...] to serve you. Thank you for choosing [facility] Normal [facility] Halfway Recordson 12-17 Halfway Records [id number] BB3#1.00TIFF Normal [facility] Ambulatory Visit Summaryon 0 12-16-2023 Ambulatory Visit Summary MALCOM KNOWLES :1955 Visit Date:12/16/2023 Ambulatory Visit Instructions Your Diagnosis UTI (urinary tract infection) Polyuria Confusion Frequent falls (Idiopathic) normal pressure hydrocephalus BMI 50.0-59.9, adult Tests Performed Urnls Dip Stick Non-Auto w/o Micrscpy POC 01275 Your Care Team Attending Physician - Adrian ENCARNACION, Mariangel Pereira Primary Care Physician - Kaushal JUDGE, Jose [...] Appointments Saturday 11:00 AM EST With: Where: [facility] Saturday 3:00 PM EST With: Where: [facility] Saturday 10:15 AM EDT With: Kaushal JUDGE, Jose Lau Where: [facility] [address] [phone] \.br\ Medications\.br\ What How Much When Why Instructions\.br\ New hydrocortisone-pramox ine topical (Proctofoam HC rectal foam) 1 Application By rectum 3 times a day UTI (urinary tract infection) BMI 50.0-59.9, adult [facility] [place]\.br\ Unchanged acetaminophen (acetaminophen 500 mg [...] a day Duration: 10 Days [facility] [place]\.br\ Unchanged nitroglycerin (nitroglycerin 0.4 mg sublingual Tab) [...] twice daily as needed \.br\ Pharmacy Information\.br\ [facility] [place]: [address] [place] [address] [phone]\.br\ Test Results\.br\ Urnls Dip Stick Non-Auto w/o Micrscpy POC 84790 (12/16/2023)\.br\ Bilirubin Urine Dipstick - Negative\.br\ Blood Urine Dipstick - 3+ Large\.br\ Glucose Urine Dipstick - Negative\.br\ Ketones Urine Dipstick - Negative\.br\ Leukocytes Urine Dipstick - 2+ Moderate\.br\ Nitrite Urine Dipstick - Negative\.br\ Protein Urine Dipstick - 3+ (300 mg/dl)\.br\ Specific [place] Urine Dipstick - >=1.030\.br\ Urine Appearance Urine [...] of Uterine cancer\.br\ HTN (hypertension)\.br\ Hx of Guillain-[place] syndrome\.br\ Hypercholesterolemia\ .br\ Insulin long-term use\.br\ Major depressive disorder with single episode, in full remission\.br\ Migraines\.br\ Mixed incontinence\.br\ Morbid obesity\.br\ Obesity\.br\ Polyuria\.br\ Stage 3b chronic kidney disease (CKD)\.br\ Type 2 diabetes mellitus with chronic kidney disease\.br\ Type 2 diabetes mellitus with hypercholesterolemia\ .br\ Urethral stricture\.br\ UTI (urinary tract infection)\.br\ UTI symptoms\.br\ Vitamin D deficiency\.br\ Donell Westfall [facility] Family Medicine Office/Clini c Noteon [...] let us know. will send referral for [facility] and [facility] for suspected hydrocephalus. Ordered: hydrocortisone-pra moxine topical, 1 teresa, Rectal, TID, 10 gram, Refill(s) 0, [facility] [place], 160, cm, 12/16/23 10:57:00 EST, Height/Length Dosing, 130, kg, 12/16/23 10:53:00 EST, Weight Dosing [facility] Ambulatory Referral Urnls Dip Stick Non-Auto w/o Micrscpy POC 74510 2. Polyuria (R35.89: Other polyuria) pt has had worsening polyuria. was told by chips screen tender and Dr. Snow to see neurology for [...] in 3 weeks. daughter requesting referral to [facility] Ordered: [facility] Ambulatory Referral [facility] External Ambulatory Referral 5. 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 will send referral to [facility]. was previously being see by Dr. Loredo in [place] Ordered: [facility] [place] Ambulatory Referral [facility] External Ambulatory Referral 6. BMI 50.0-59.9, adult (Z68.43: Body mass index [BMI] 50.0-59.9, adult) BMI education complete Ordered: hydrocortisone-pra moxine topical, 1 teresa, Rectal, TID, 10 gram, Refill(s) 0, [facility] [place], 160, cm, 12/16/23 10:57:00 EST, Height/Length Dosing, 130, kg, 12/16/23 10:53:00 EST, Weight Dosing Urnls Dip Stick Non-Auto w/o Micrscpy POC 52903 Orders: nitrofurantoin, 100 mg = 1 cap(s), Oral, BID, X 10 day(s), # 20 cap(s), Refills(s) 0, Pharmacy: [facility] [place], 160, cm, 12/16/23 10:57:00 EST, [...] of Uterine cancer HTN (hypertension) Hx of Guillain-[place] syndrome Hypercholesterolem ia Insulin long-term use Major [...] 1 tab (more content not included)... Normal [facility] Comment on above: Result Comment: Elec tronically Signed By: Adrian ENCARNACION, Mariangel Pereira\.br\Date and Time Signed: 12/16/23 12:09 EST Lab Reportson 12-16-2023 Lab Reports [id number]#1.00TIFF Normal [facility] Lab Reports [id number]#1.00TIFF Normal [facility] Physician Referralon 024 Physician Referral [id number]#1.00TIFF Normal [facility] Physician Referral [id number]#1.00TIFF Normal [facility] Halfway Recordson 12-09 Halfway Records [id number] [id number]#1.00TIFF Normal [facility] Halfway Recordson 12-05 Halfway Records [id number] 1374#1.00TIFF Normal [facility] Transfer Inon 12-04-2023 Transfer In [id number]#1.00TIFF Normal [facility] Outside Mammographyon 2023 Outside Mammography [id number]#1.00TIFF Normal [facility] RAD - Ultrasound Reporton RAD - Ultrasound Report [id number]#1.00TIFF Normal [facility] Formson 11-22-2023 Forms [id number]#1.00TIFF Normal [facility] Halfway Recordson 11-22 Halfway Records [id number] 1988#1.00TIFF Normal [facility] Physician Referralon 023 Physician Referral [id number]#1.00TIFF Meg Westfall [facility] Ambulatory Visit Summaryon 1 01-22-2023 Ambulatory Visit Summary MALCOM KNOWLES :1955 Visit Date:11/21/2023 Ambulatory Visit Instructions Your Diagnosis Mixed incontinence Gross hematuria UTI (urinary tract infection) Type 2 diabetes mellitus with chronic kidney disease Tests Performed Urnls Dip Stick Auto w/o Microscopy POC 71200 Your Care Team Attending Physician - FARTUN MCCOLLUM, BRIGIDA Seals Primary Care Physician - Kaushal JUDGE, Jose Seals. Referring Physician - DEJUAN JUDGE, WHITIZ This Is Your Medications List Contact prescribing [...] EDT With: Kaushal JUDGE, Jose Lau Where: [facility] [place] Normal [address] [place] [address]- \.br\ You Need to Schedule the Following Appointments\.br\ Follow Up with BRIGIDA GRAHAM PA-C, URL When: \.br\ Where:\.br\ [address]br\ [place] [address]\.br\ [phone]\.br\ Medications\.br\ What How Much When Why Instructions\.br\ [...] if questions or concerns \.br\ Unchanged zinc [facility] Recordson 11-21 Halfway Records [id number]#1.00TIFF Normal [facility] Records [id number] 1ABA#1.00TIFF Normal [facility] Patient Educationon 11-21-20 23 Patient Education [...] nerve stimulation). ? For women, using a director medical safety to prevent urine leaks. This is a [...] ? (more content not included)... Normal [facility] Urology Office/Clinic Noteon 11-21-2023 Urology Office/Clinic Note Chief Complaint Appeals Manager referal for urinary incontinence HPI Staff New Pt. Referral per Chip Mcmullen due to urinary incontinence. BUN 24, Creatinine 1.5 done 10[place]01/[facility] [place] 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 Pt is here with her daughter (POA) today. Currently resides at [facility]. Ambulates via wheelchair. Renal fxn: 10/01/23 - [...] and control BMs. Educational pamphlets provided. Ordered: 32275 Measure Post Void residual urine and/or bladder capacity by US- non-imaging Urnls Dip Stick Auto w/o Microscopy POC 82724 2. Urethral stricture (N35.919: Unspecified urethral stricture, [...] se OTC if available. -see #2 Ordered: 52510 Measure Post Void residual urine and/or bladder capacity by US- non-imaging Urnls Dip Stick Auto w/o Microscopy POC 12507 4. 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 Normal [facility] Comment on above: Result Comment: Elec tronically Signed By: BRIGIDA GRAHAM PA-C\.br\Date and Time Signed: 11/21/23 12:19 EST\.br\Electronically [...] female. The patient received communication from the social work msw, however, the social work msw was uncertain about her responsibilities. The patient's [...] patient is under the care of an sales and leasing agent. Her glycemic levels have decreased. The next appointment with the sales and leasing agent is scheduled after a consultation with Dr. Zhu on 12/16/2023 for a 3-month follow-up. She is also under the care of an hvac sales engineer, an valet, and a retina specialist due to an [...] She has previously expressed satisfaction with the intermediate environment. She only receives Tylenol with her [...] No other con (more content not included)... [facility] Comment on above: Result Comment: Elec tronically Signed By: Jose Snow MD\.br\Date and Time Signed: 11/20/23 17:33 EST\.br\Electronically Co-Signed By: Rebekah Ferraro\.br\Date and Time Co-Signed: 11/20/23 17:13 EST Halfway Recordson 11-07 Halfway Records [id number]#1.00TIFF [facility] Home Health Recordson 2022 Home Health Records [id number]#1.00TIFF [facility] Home Health Recordson 2022 Home Health Records [id number]#1.00TIFF Normal [facility] Outside Mammographyon 2022 Outside Mammography [id number] [id number]#1.00TIFF Normal [facility] Halfway Recordson 10-28 Halfway Records [id number] 114#1.00TIFF Normal [facility] Interdisciplinary Note - Soc ial Workeron 10-16-2023 Interdisciplinary Note - Websphere Administrator This SW received a message regarding placement for patient at [facility] and daughter having questions. This SW made tc to netoeinjessica's daughter and apologized for the delayed response. [...] that fantasma can stay in her current [place] apartment and that she does not have to move her to . SW's direct line was provided and SW encouraged her to reach out should she have needs or questions. SW will remain available. Normal [facility] Home Health Recordson 2022 Home Health Records [id number]#1.00TIFF Normal [facility] Auto Diffon 10-01-2023 Basophils/100 WBC (Bld) 1.0 % Normal 0.0-2.0 [facility] Comment on above: Order Comment: Order Added by Discern Expert. Performed By: #### 7 [id number], 32941552, 3391614, 1562683, 7052460, 2830382 ####[facility] [address] [place] [address] Basophils/Leukocyt es Auto (Bld) [Pure # fraction] 0.1 E9/L Normal 0.0-0.2 [facility] Comment on above: Order Comment: Order Added by José Luis Expert. Performed By: #### 7 41136005, 63883100, 2833247, 5657993, 5808948, 6833772 ####[address] [place] [address] Eosinophils/100 WBC (Bld) 5.3 % Normal 0.0-8.0 [facility] Comment on above: Order Comment: Order Added by Discern Expert. Performed By: #### 7 42640529, 24636016, 6694286, 6937595, 6721724, 2983499 ####[address] [place] [address] Eosinophils/Leukoc ytes Auto (Bld) [Pure # fraction] 0.3 E9/L Normal 0.0-0.5 [facility] Comment on above: Order Comment: Order Added by José Luis Expert. Performed By: #### 7 [id number], 25377516, 4827023, 4362585, 2068049, 6317733 ####[address] [address] Lymphocytes/100 WBC (Bld) 37.2 % Normal 14.0-50.0 [facility] Comment on above: Order Comment: Order Added by José Luis Expert. Performed By: #### 7 84779351, 42616549, 5698333, 1248561, 6528077, 8014209 ####[address] [address] Lymphocytes/Leukoc ytes Auto (Bld) [Pure # fraction] 2.0 E9/L Normal 1.0-4.0 [facility] Comment on above: Order Comment: Order Added by José Luis Expert. Performed By: #### 7 40573945, 72836338, 4682860, 5219722, 8924577, 5059507 ####[facility] [address] [place] [address] Monocytes/100 WBC (Bld) 10.7 % Normal 4.0-14.0 [facility] Comment on above: Order Comment: Order Added by José Luis Expert. Performed By: #### 7 18606970, 38500164, 2319464, 0948794, 8203259, 6282586 ####[address] [place] [address] Monocytes/Leukocyt es Auto (Bld) [Pure # fraction] 0.6 E9/L Normal 0.2-1.0 [facility] Comment on above: Order Comment: Order Added by Discern Expert. Performed By: #### 7 85345127, 10131536, 9618068, 0273618, 1776117, 5679941 ####[address] [place] [address] Neutrophils/100 WBC (Bld) 45.8 % Normal 36.0-75.0 [facility] Comment on above: Order Comment: Order Added by Discern Expert. Performed By: #### 7 74994444, 87338626, 9058312, 3767310, 7621391, 4055220 ####[address] [address] Neutrophils/Leukoc ytes Auto (Bld) [Pure # fraction] 2.5 E9/L Normal 2.0-7.5 [facility] Comment on above: Order Comment: Order Added by Discern Expert. Performed By: #### 7 93820384, 27241887, 8266224, 5264137, 6992224, 8158844 ####[address] [place] [address] CBC w/ Auto Diffon 3 Erythrocyte distribution width (RBC) [Ratio] 15.1 % High 10.9-14.2 [facility] Comment on above: Performed By: #### 7 92589794, 62072232, 5379554, 7547875, 9390765, 5599117 ####[address] [place] [address] Hematocrit (Bld) [Volume fraction] 39.1 % Normal 34.0-46.0 [facility] Comment on above: Performed By: #### 7 45213419, 09358329, 2112212, 5450799, 1699236, 4516455 ####[facility] [address] [place] [address] Hemoglobin (Bld) [Mass/Vol] 13.1 g/dL Normal 12.0-16.0 [facility] Comment on above: Performed By: #### 7 82967752, 51914048, 0327003, 0023597, 9236836, 3218690 ####[address] [address] MCH (RBC) [Entitic mass] 30.8 pg Normal 27.0-34.0 [facility] Comment on above: Performed By: #### 7 88881888, 42622014, 6423412, 5930141, 4545135, 0542238 ####[address] [address] MCHC (RBC) [Mass/Vol] 33.5 g/dL Normal 31.4-36.0 [facility] Comment on above: Performed By: #### 7 36530257, 83564970, 8888245, 7517429, 5057263, 5137910 ####[address] [address] MCV (RBC) [Entitic vol] 92.0 fL Normal 80.0-100.0 [facility] Comment on above: Performed By: #### 7 86207269, 35717397, 8733254, 4737100, 6997342, 4298005 ####[address] [address] Platelet mean volume (Bld) [Entitic vol] 9.2 fL Normal 6.4-10.8 [facility] Comment on above: Performed By: #### 7 63763440, 01261927, 2127110, 3868705, 2954391, 9499917 ####[address] [address] Platelets (Bld) [#/Vol] 205.0 E9/L Normal 150.0-500.0 [facility] Comment on above: Performed By: #### 7 57107525, 85629766, 4502840, 7143077, 7743173, 8293221 ####[facility] [address] [place] [address] RBC (Bld) [#/Vol] 4.2 E12/L Low 4.3-5.9 [facility] Comment on above: Performed By: #### 7 01406040, 52529313, 0429525, 7387250, 9419385, 7150429 ####[facility] [address] [place] [address] WBC corrected for nucl RBC Auto (Bld) [#/Vol] 5.4 E9/L Normal 4.0-11.0 [facility] Comment on above: Performed By: #### 7 64110992, 76118325, 5600954, 4512527, 1542840, 7757646 ####[facility] [address] [place] [address] CHEMISTRYOrdered By: Peace guillaume on 10-01-2023 Albumin DL <= 20 mg/L (U) [Mass/Vol] 9.9 microgram/mL Normal 0.0 - 19.0 mcg/mL [facility] Albumin Elph (U) [Mass fraction] mg/dL Invalid Interpretation Code [facility] Remiso Comment on above: Interpretive Data: T he reference range and other method performance specifications have not been established for this test; results should be integrated into the clinical context for interpretation. Creatinine (U) [Mass/Vol] 28.4 mg/dL Invalid Interpretation Code [facility] Remiso Comment on above: Interpretive Data: T he reference range and other method performance specifications have not been established for this test; results should be integrated into the clinical context for interpretation. U Prot/Creat Ratio [facility] Invalid Interpretation Code 0.00 - 200.00 [facility] Remisol CHEMISTRYOrdered By: SYSTEM SYSTEM on 10-01-2023 Albumin [Mass/Vol] 3.8 g/dL Normal 3.3 - 5.0 gm/dL [facility] Remisol Albumin/Globulin [Mass ratio] [...] 15 mg/dL Normal 7 - 40 mg/dL [facility] Remisol CO2 [Moles/Vol] 30 mmol/L Normal 21 - 31 mmol/L [facility] Remisol Creatinine [Mass/Vol] 1.5 mg/dL High 0.5 - 1.3 mg/dL [facility] Remisol GFR/1.73 sq M.predicted among non-blacks MDRD (S/P/Bld) [Vol rate/Area] 37 mL/min/1.73 m2 Low >=59mL/min/1.73 m2 [facility] Chem S Comment on above: Interpretive Data: C hronic kidney disease could be indicated at eGFR's of less than 60 mL/min/1.73m2. Kidney failure is indicated at less than 15 mL/min/1.73m2. Globulin (S) [Mass/Vol] 3.6 g/dL Normal 1.4 - 4.0 gm/dL [facility] Remisol Glucose [Mass/Vol] 176 mg/dL Normal 55 - 199 mg/dL [facility] Remisol Comment on above: Interpretive Data: I f this glucose result represents a fasting glucose, interpretation should refer to the following reference range: 55-99 mg/dL Potassium [Moles/Vol] 3.7 mmol/L Normal 3.5 - 5.3 mmol/L [facility] Remisol Protein [Mass/Vol] 7.4 g/dL Normal 6.0 - 7.8 gm/dL [facility] Remisol Sodium [Moles/Vol] 140 mmol/L Normal 135 - 145 mmol/L [facility] Remisol Triglyceride [Mass/Vol] 77 mg/dL Normal <=149mg/dL [facility] Remisol Urea nitrogen [Mass/Vol] 24 mg/dL High 5 - 21 mg/dL [facility] nitrogen/Creatinin e [Mass ratio] 16 mg/mg Normal 10 - 20 [facility] CHEMISTRYOrdered By: Denisha Carlin on 10-01-2023 HbA1c (Bld) [Mass fraction] 8.2 % High <=5.9% [facility] ChemAutoSS CMPon 10-01-2023 Albumin [Mass/Vol] 3.8 g/dL Normal 3.3-5.0 [facility] Comment on above: Performed By: #### 7 55746534, 43020903, 9941299, 8367370, 7663421, 4028409 ####[facility] [address] [place] [address] Albumin/Globulin (S) [Mass conc ratio] 1.1 Normal 1.1-2.2 [facility] Comment on above: Performed By: #### 7 95204794, 01318265, 8175218, 2970608, 2048469, 3657412 ####[facility] [address] [place] [address] ALP [Catalytic activity/Vol] 61 Int._Unit/L Normal 21-98 [facility] Comment on above: Performed By: #### 7 74718032, 78789094, 7643367, 9218273, 9291025, 2652522 ####[facility] [address] [place] [address] ALT No additional P-5'-P [Catalytic activity/Vol] 26 Int._Unit/L Normal 6-46 [facility] Comment on above: Performed By: #### 7 60340681, 12524309, 0607634, 8552293, 8460583, 4263045 ####[facility] [address] [place] [address] Anion gap [Moles/Vol] 10 mmol/L Normal 6-16 [facility] Comment on above: Performed By: #### 7 27332908, 94229187, 5679802, 1023065, 0159376, 0362567 ####[facility] [address] [place] [address] AST [Catalytic activity/Vol] 31 Int._Unit/L Normal 5-43 [facility] Comment on above: Performed By: #### 7 90467251, 49854973, 5713543, 4698540, 4973135, 1388389 ####[facility] [address] [place] [address] Bilirubin [Mass/Vol] 1.1 mg/dL Normal 0.0-1.1 [facility] Comment on above: Performed By: #### 7 55033498, 50019700, 0854284, 3331542, 5163035, 2966287 ####[facility] [address] [place] [address] Calcium [Mass/Vol] 9.4 mg/dL Normal 8.9-11.1 [facility] Comment on above: Performed By: #### 7 31916211, 29013358, 4485593, 9150938, 6960579, 5110218 ####[facility] [address] [place] [address] Chloride [Moles/Vol] 104 mmol/L Normal 101-111 [facility] Comment on above: Performed By: #### 7 53093218, 92880052, 5224603, 7155684, 6862482, 7224373 ####[facility] [address] [place] [address] CO2 [Moles/Vol] 30 mmol/L Normal 21-31 [facility] Comment on above: Performed By: #### 7 59297622, 83277162, 9568893, 6612485, 8774408, 0572628 ####[facility] [address] [place] [address] Creatinine [Mass/Vol] 1.5 mg/dL High 0.5-1.3 [facility] Comment on above: Performed By: #### 7 78180976, 64822346, 4765025, 1766662, 3058381, 6709636 ####[facility] [address] [place] [address] Globulin (S) [Mass/Vol] 3.6 g/dL Normal 1.4-4.0 [facility] Comment on above: Performed By: #### 7 23401525, 10356360, 4928021, 3249408, 4538336, 6431793 ####[facility] [address] [place] [address] Glucose [Mass/Vol] 176 mg/dL Normal 55-199 [facility] Comment on above: Result Comment: If t his glucose result represents a fasting glucose, interpretation should refer to the following reference range: 55-99 mg/dL Performed By: #### 7 44646913, 26986259, 8848136, 3271959, 5945742, 9667169 ####[facility] [address] [place] [address] Potassium [Moles/Vol] 3.7 mmol/L Normal 3.5-5.3 [facility] Comment on above: Performed By: #### 7 07920947, 53047272, 1946008, 7715679, 3171558, 3555346 ####[facility] [address] [place] [address] Protein [Mass/Vol] 7.4 g/dL Normal 6.0-7.8 [facility] Comment on above: Performed By: #### 7 28282273, 13108029, 8797841, 0147548, 4816492, 7173738 ####[facility] [address] [place] [address] Sodium [Moles/Vol] 140 mmol/L Normal 135-145 [facility] Comment on above: Performed By: #### 7 35021693, 08809441, 7212048, 8858171, 5576706, 7967873 ####[facility] [address] [place] [address] Urea nitrogen [Mass/Vol] 24 mg/dL High - [facility] Comment on above: Performed By: #### 7 28077986, 04399175, 5529672, 2279474, 7065382, 9345754 ####[facility] [address] [place] [address] Urea nitrogen/Creatinin e [Mass ratio] 16 No Units Normal - [facility] Comment on above: Performed By: #### 7 28492534, 43475434, 3068390, 6054332, 5476606, 0232319 ####[facility] [address] [place] [address] Consent for Treatmenton 09-03 Consent for Treatment [id number]#1.00TIFF Normal [facility] HEMATOLOGYOrdered By: SYSTEM SYSTEM on 10-01-2023 [...] 33.5 g/dL Normal 31.4 - 36.0 gm/dL [facility] HemeAutoSS MCV (RBC) [Entitic vol] 92.0 fL Normal 80.0 - 100.0 fL [facility] HemeAutoSS Platelet mean volume (Bld) [Entitic vol] 9.2 fL Normal 6.4 - 10.8 fL [facility] HemeAutoSS Platelets (Bld) [#/Vol] 205.0 E9/L Normal 150.0 - 500.0 E9/L [facility] HemeAutoSS RBC (Bld) [#/Vol] 4.2 E12/L Low 4.3 - 5.9 E12/L [facility] HemeAutoSS WBC corrected for nucl RBC Auto (Bld) [#/Vol] 5.4 E9/L Normal 4.0 - 11.0 E9/L [facility] HemeAutoSS [id number] 10-01-2023 HbA1c (Bld) [Mass fraction] 8.2 % High <=5.9 [facility] Comment on above: Performed By: #### 7 07125039, 68184997, 5260453, 3777034, 1934826, 8477880 ####[facility] [address] [place] [address] Lipid Panelon 10-01-2023 Cholesterol [Mass/Vol] 127 mg/dL Normal 120-200 [facility] Comment on above: Performed By: #### 7 28352532, 43613444, 3479892, 8474904, 1544899, 8662566 ####[facility] [address] [place] [address] Cholesterol in HDL [Mass/Vol] 58 mg/dL Invalid Interpretation Code [facility] Comment on above: Result Comment: HDL > or equal to 60 mg/dL: Low cardiovascular risk HDL < 40 mg/dL : High cardiovascular risk Performed By: #### 7 29489672, 99548202, 6667285, 2372532, 9886014, 9110252 ####[facility] [address] [place] [address] Cholesterol in LDL [Mass/Vol] 58 mg/dL Normal <=129 [facility] Comment on above: Performed By: #### 7 44872337, 93269960, 2524936, 0640669, 1662156, 1336118 ####[facility] [address] [place] [address] Cholesterol in VLDL [Mass/Vol] 15 mg/dL Normal 7-40 [facility] Comment on above: Performed By: #### 7 62559928, 83034367, 1926354, 6627284, 5189167, 3519106 ####[facility] [address] [place] [address] Triglyceride [Mass/Vol] 77 mg/dL Normal <=149 [facility] Comment on above: Performed By: #### 7 22431236, 75660874, 7719550, 2736600, 8097737, 1893861 ####[facility] [address] [place] [address] Retail - Clinical Noteon Retail - Clinical Note [id number] 4633#1.00TIFF Normal [facility] U Microalbon 10-01-2023 Albumin DL <= 20 mg/L (U) [Mass/Vol] 9.9 microgram/mL Normal 0.0-19.0 [facility] Comment on above: Performed By: #### 1 7796503, [id number] ####[facility] [address] [place] [address] U Protein/Creat Ratioon 09-03 Albumin Elph (U) [Mass fraction] <6.0 Invalid Interpretation Code [facility] Comment on above: Result Comment: The reference range and other method performance specifications have not been established for this test; results should be integrated into the clinical context for interpretation. Performed By: #### 1 0803780, [id number] ####[facility] [address] [place] [address] Creatinine (U) [Mass/Vol] 28.4 mg/dL Invalid Interpretation Code [facility] Comment on above: Result Comment: The reference range and other method performance specifications have not been established for this test; results should be integrated into the clinical context for interpretation. Performed By: #### 1 4058986, [id number] ####[facility] [address] [place] [address] U Prot/Creat Ratio [facility] Invalid Interpretation Code .00-200.00 [facility] Comment on above: Performed By: #### 1 2937308, [id number] ####[facility] [address] [place] [address] eGFRon 10-01-2023 GFR/1.73 sq M.predicted among non-blacks MDRD (S/P/Bld) [Vol rate/Area] 37 mL/min/1.73 m2 Low >=59 [facility] Comment on above: Order Comment: Order added by Discern Expert. Result Comment: Custom Feed Mill Operator maco kidney disease could be indicated at eGFR's of less than 60 mL/min/1.73m2. Kidney failure is indicated at less than 15 mL/min/1.73m2. Performed By: #### 7 73016350, 16731243, 7032585, 2633734, 7087235, 4991841 ####[facility] [address] [place] [address] Interdisciplinary Note - Soc ial Workeron 09-23-2023 Interdisciplinary Note - Websphere Administrator Consult received d/t pt's dx of DM. Patient requires bariatric equipment. Upon review of chart notes, patient resides at [facility]. Patient has been evaluated by stride [employer] for an appropriate wheelchair. If further needs, or DME are required conversation with staff at [facility] should be had for appropriate planning and continuity of care. SW will remain available. Normal [facility] Retail - Clinical Noteon Retail - Clinical Note [id number]#1.00TIFF Normal [facility] Consultation Noteon 09-18-20 Consultation Note [id number]#1.00TIFF [facility] Family Medicine Office/Clini c Noteon 09-17-2023 Family Medicine Office/Clinic Note HPI Staff Malcom is a 67 year old female presenting to establish care Resides at the [facility] Needs a face to face for [...] was in an assisted living facility in [place] where she received intensive physical therapy. However, [...] to 6500 g a month and other nlxx-ioe-lydnseq medications. However, the daughter states that this is not sustainable and is considering finding a cheaper living arrangement or moving the patient to a intermediate. She has expressed interest in losing weight. [...] as before. 4. Insulin long-term use (Z79.4: skilled nursing (current) use of insulin) Discussed the need of having the patient increase the medication, but we will have Dr. Zhu adjust the medication. 5. BMI 50.0-59.9, adult (Z68.43: Body mass index [BMI] 50.0-59.9, adult) 6. Morbid obesi (more content not included)... Normal [facility] Comment on above: Result Comment: Elec tronically Signed By: Jose Snow MD\.br\Date and Time Signed: 09/17/23 07:26 EDT\.br\Electronically Co-Signed By: Romana Crouch\.br\Date and Time Co-Signed: 09/09/23 18:25 EDT Halfway Recordson 09-11 Halfway Records [id number]#1.00TIFF Meg Westfall [facility] Ambulatory Visit Summaryon 1 Ambulatory Visit Summary MALCOM KNOWLES :1955 Visit Date:09/09/2023 Ambulatory Visit Instructions Your Diagnosis Type 2 diabetes mellitus with chronic kidney disease Type 2 diabetes mellitus with hypercholesterolem ia Benign hypertension with chronic kidney disease Insulin long-term use BMI 50.0-59.9, adult Morbid obesity Major depression in full remission CKD (chronic kidney disease) stage 3, GFR 30-59 ml/min 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 Snow, *Based on your response below, [...] feel free to contact me at extension [phone]. Thank you! Luann Lazo, SHAHANAN, RN, CCM, CCDS, CCDS-O Invalid Interpretation Code [address] [facility] Pre-Visit Planning --- From: Clifotn DE LOS SANTOS, Luann To: Kaushal JUDGE, Jose Lau; Sent: 09/06/2023 10:30:41 EDT Subject: Pre-Visit Planning Due Date/Time: 09/06/2023 10:30:00 EDT Caller Name: MALCOM KNOWLES; Caller Number: , Ct Dr. Snow, *Based on your response below, can you please update the chronic problem list and address during this visit if appropriate?* During a pre-visit planning chart review, I noted the following documentation in the medical record indicates that this patient had a BMI of 52.32 on 07/15/2023. The National [employer] defines obesity as morbid if [...] feel free to contact me at extension [phone]. Thank you! Luann Lazo, SHAHANAN, RN, CCM, CCDS, CCDS-O Invalid Interpretation Code [address] [place] [address] [facility] Halfway Recordson 09-04 Halfway Records [id number]#1.00CD:127 [facility] Halfway Recordson 09-03 Halfway Records [id number]#1.00CD:127 [facility] Halfway Recordson 09-02 Halfway Records [id number]#1.00CD:127 [facility] Family Medicine Office/Clini c Noteon 08-23-2023 Family [...] basaglar to 12 untis. will refer to sales and leasing agent. daughter will call with where she wants [...] [facility] External Ambulatory Referral skilled nursing (current) use of insulin (Z79.4: skilled nursing (current) use of insulin) referral to sales and leasing agent will be sent Ordered: [facility] Immunizations Vaccine Date Status Comments SARS-CoV-2 (COVID-19) [id number].[id number] 09/13/2022 R (more content not included)... Normal [facility] Comment on above: Result Comment: Elec tronically Signed By: Mariangel Peña\.br\Date and Time Signed: 08/23/23 09:36 EDT Halfway Recordson 08-21 Halfway Records [id number]#1.00CD:127 Normal [facility] Halfway Recordson 08-20 Halfway Records [id number]#1.00CD:127 Normal [facility] Halfway Recordson 08-15 Halfway Records [id number]#1.00CD:127 [facility] Retail - Clinical Noteon Retail - Clinical Note [id number]#1.00CD:127 [facility] Urine Cultureon 07-28-2023 Bacteria identified Cx Nom (U) <9,000 colonies/ml mixed bacterial skin contaminants 2 Days PERFORMED BY: [place] [address] PATHOLOGIST EMPLOYEE BENEFITS MANAGER SUZY FLORES M.D. [facility] Comment on above: Performed By: #### C UU #### [address] Physician Referralon 023 Physician Referral [id number]#1.00CD:127 Normal [facility] Halfway Recordson 07-23 Halfway Records [id number]#1.00CD:127 [facility] Halfway Recordson 07-18 Halfway Records [id number]#1.00CD:127 [facility] Halfway Records [id number]#1.00CD:127 [facility] Retail - Clinical Noteon Retail - Clinical Note [id number]#1.00CD:127 [facility] Halfway Recordson 07-16 Halfway Records [id number]:127 [facility] Physician Referralon 023 Physician Referral [id number]#1.00CD:127 [facility] Retail - Clinical Noteon Retail - Clinical Note [id number]#1.00CD:127 [facility] Ambulatory Visit Summaryon 0 07-15-2023 Ambulatory Visit Summary MALCOM KNOWLES :1955 Visit Date:07/15/2023 Ambulatory Visit Instructions Your Diagnosis Insulin dependent type 2 diabetes mellitus BMI 50.0-59.9, adult Non-smoker skilled nursing (current) use of insulin Your Care Team [...] Saturday 3:40 PM EDT With: Kaushal JUDGE, Jose Lau [facility] Normal [address] [place] [address]- \.br\ Medications\.br\ What How Much When Why [...] Obesity\.br\ UTI (urinary tract infection)\.br\ \.br\ [facility] Patient Correspondenceon Patient Correspondence [id number]:127 Normal [facility] XR shoulder LT min 2V*on XR shoulder LT min 2V* [facility] Main [place] [address] [place] [address] XRay Report Signed Patient: Malcom Knowles MR#: [id number] : 1955 Acct:[id number] Age/Sex: 67 / F ADM Date: 07/01/23 [place] [facility] [place] [facility] [facility] [...] Aj Baker M.D.07/01/2023 2:36 PM Dictation Location: [facility]-- Transcribed By: [facility] 07/01/23 1436 Dictated By: Aj Baker II, MD 07/01/23 1434 Signed By: 07/01/[address] [facility] XR shoulder LT min 2V* [facility] [employer] Other XR shoulder LT min 2V* [facility] [employer] Other XR shoulder LT min 2V* [address] [place] [address] [employer] Other XR shoulder LT min 2V* [place] [address] [employer] Other XR shoulder LT min 2V* XRay Report [employer] Other XR shoulder LT min 2V* Signed [employer] Other XR shoulder LT min 2V* Patient: Malcom Knowles MR#: [id number] [employer] Other XR shoulder LT min 2V* [id number] [employer] Other XR shoulder LT min 2V* : 1955 Acct:[id number] [employer] Other XR shoulder LT min 2V* Age/Sex: 67 / F ADM Date: 07/01/23 [employer] Other XR shoulder LT min 2V* Loc: [facility] Room: Type: [facility] [employer] Other XR shoulder LT min 2V* Attending Dr: Lizandro Martins MD [employer] Other XR shoulder LT min 2V* Copies to: Lizandro Martins MD [employer] Other XR shoulder LT min 2V* Ordering Provider: Lizandro Martins MD [employer] Other XR shoulder LT min 2V* Date of Service: 07/01/23 [employer] Other XR shoulder LT min 2V* XR/XR shoulder LT min 2V*: Acute pain of left shoulder [employer] Other XR shoulder LT min 2V* XR shoulder LT min 2V* 07/01/2023 11:10 AM [employer] Other XR shoulder LT min 2V* SIGNS AND SYMPTOMS: Left shoulder pain with decreased range of motion [employer] Other XR shoulder LT min 2V* PROTOCOL: Frontal, Grashey, scapular Y views of the left shoulder [employer] Other XR shoulder LT min 2V* COMPARISON: None [employer] Other XR shoulder LT min 2V* FINDINGS: [employer] Other XR shoulder LT min 2V* There is mild hypertrophy of the acromioclavicular joint. There is narrowing of the glenohumeral [employer] Other XR shoulder LT min 2V* joint. There is no fracture or dislocation. The visualized left hemithorax is grossly intact. [employer] Other XR shoulder LT min 2V* XR/XR shoulder LT min 2V* [employer] Other XR shoulder LT min 2V* IMPRESSION: [employer] Other XR shoulder LT min 2V* No fracture or dislocation. [employer] Other XR shoulder LT min 2V* Degenerative changes are noted in the left shoulder, as above. [employer] Other XR shoulder LT min 2V* Impression dictated by: Aj Baker M.D.07/01/2023 2:36 PM [employer] Other XR shoulder LT min 2V* Dictation Location: [facility]--13 [employer] Other XR shoulder LT min 2V* Transcribed By: FLORES 07/01/23 [facility] [employer] Other XR shoulder LT min 2V* Dictated By: Aj Baker II, MD 07/01/23 [facility] [employer] Other XR shoulder LT min 2V* Signed By: [employer] Other XR shoulder LT min 2V* 07/01/23 [facility] [employer] Other ECHOCARDIO M/2D COMPLETEon 0 05-01-2023 ECHOCARDIO M/2D COMPLETE Patient: MALCOM KNOWLES Exam Date: 05/01/2023 : 1955 Gender:F Ordering : DR. AJ YOUNG M.D. Admission #: [id number] Family : Order #: [id number] CLICK HERE TO VIEW EXAM ECHOCARDIOGRAM REPORT [...] Franco M.D. on 05/01/2023 at 18:18 Normal [facility] Office Visit (Cardiology)on 04-04-2023 Follow-up visit Diagnoses/Problems Assessed 2-vessel coronary artery disease (414.00) (I25.10) Chest pain (786.50) (R07.9) Diabetes mellitus (250.00) (E11.9) Essential hypertension (401.9) (I10) H/O non-ST elevation myocardial infarction (NSTEMI) (412) (I25.2) Hyperlipidemia (272.4) (E78.5) Morbid obesity with BMI of 50.0-59.9, adult (278.01,V85.43) (E66.01,Z68.43) Never a smoker Post [facility] (V45.82) (Z98.61) care home resident (V60.6) (Z59.3) Orders 2-vessel coronary [...] 12:01:30 PM (more content not included)... Normal [facility] Tobacco Screening.on 023 Adult depression screening assessment No [place] [address] DO Work Phone: Fall risk assessment b) One or more falls in the last year [facility] 600 DO Work Phone: Tobacco use status [facility] b) No [facility] 600 DO Work Phone: CT CSPINE WO [...] by: THONY JOHNSTON Date: 2023-01-24 19:08 Normal [facility] CT HEAD WO CONon 01-24-2023 CT HEAD [...] by: FLORIN ZHONG Date: 2023-01-24 18:51 Normal [facility] XR SHOULDER LT 2V or >on XR SHOULDER LT 2V or > EXAM: XR SHOULDER LT 2V or > HISTORY: Unspecified fall COMPARISON: Shoulder x-rays 08/27/2022 TECHNIQUE: 3 views FINDINGS: IMPRESSION: No visualized fracture, dislocation, subluxation or osseous lesion. Moderate degenerative changes of the acromial clinically joint. Electronically authenticated by: NIALL CELIS Date: 2023-01-24 18:58 Normal [facility] MRI BRAIN WO CONon MRI BRAIN [...] by: ADAMS RAGSDALE Date: 2023-01-18 15:07 Normal [facility] US CAROTID ART BILon 023 US CAROTID ART DORIE EXAMINATION: US CAROTID ART DORIE HISTORY: Bilateral carotid artery occlusion COMPARISON: No [...] ADAMS RAGSDALE Date: 2023-01-18 14:45 Normal [facility] CBC AUTO DIFFon 12-26-2022 BASO # 0.1 103/ul Normal 0.0-0.1 [facility] Comment on above: Performed By: #### A CET, CMP #### [facility] [address] [address] [address] Gilberto Ocampo Basophils/100 WBC (Bld) 0.8 % Normal 0.2-2.0 [facility] Comment on above: Performed By: #### A CET, CMP #### [facility] [address] [address] [address] Gilberto Ocampo EO # 0.6 103/ul Normal 0.0-0.7 [facility] Comment on above: Performed By: #### A CET, CMP #### [facility] [address] [address] [address] Gilberto Ocampo Eosinophils/100 WBC (Bld) 7.7 % Critically high 0.9-7.0 [facility] Comment on above: Performed By: #### A CET, CMP #### [facility] [address] [address] [address] Gilberto Ocampo Erythrocyte distribution width (RBC) [Ratio] 14.0 % Normal 11.0-15.0 [facility] Comment on above: Performed By: #### A CET, CMP #### [facility] [address] [place] [address] Dr. Gilberto Ocampo Hematocrit (Bld) [Volume fraction] 39.0 % Normal 36.0-48.0 [facility] Comment on above: Performed By: #### A CET, CMP #### [facility] [address] [place] [address] Dr. Gilberto Ocampo Hemoglobin (Bld) [Mass/Vol] 11.8 g/dL Critically low 12.0-16.0 [facility] Comment on above: Performed By: #### A CET, CMP #### [facility] [address] [place] [address] Dr. Gilberto Ocampo IG # 0.02 10e3/ul Normal 0.00-0.03 [facility] Comment on above: Performed By: #### A CET, CMP #### [facility] [address] [place] [address] Dr. Gilebrto Ocampo IG % 0.3 % Normal 0.0-0.5 [facility] Comment on above: Performed By: #### A CET, CMP #### [facility] [address] [place] [address] Dr. Gilberto Ocampo LYMPH # 2.1 103/ul Normal 1.2-3.8 [facility] Comment on above: Performed By: #### A CET, CMP #### [facility] [address] [place] [address] Dr. Gilberto Ocampo Lymphocytes/100 WBC (Bld) 29.2 % Normal 20.5-60.0 [facility] Comment on above: Performed By: #### A CET, CMP #### [facility] [address] [place] [address] Dr. Gilberto Ocampo MANUAL DIFF REQ NO Normal [facility] Comment on above: Performed By: #### A CET, CMP #### [facility] [address] [place] [address] Dr. Gilberto Ocampo MCH (RBC) [Entitic mass] 29.2 pg Normal 26.7-34.0 [facility] Comment on above: Performed By: #### A CET, CMP #### [facility] [address] [place] [address] Dr. Gilberto Ocampo MCHC (RBC) [Mass/Vol] 30.3 g/dL Normal 29.9-35.2 [facility] Comment on above: Performed By: #### A CET, CMP #### [facility] [address] [place] [address] Dr. Gilberto Ocampo MCV (RBC) [Entitic vol] 96.5 fL Normal 81.0-99.0 [facility] Comment on above: Performed By: #### A CET, CMP #### [facility] [address] [place] [address] Dr. Gilberto Ocampo MONO # 0.6 103/ul Normal 0.3-0.8 [facility] Comment on above: Performed By: #### A CET, CMP #### [facility] [address] [place] [address] Dr. Gilberto Ocampo Monocytes/100 WBC (Bld) 9.0 % Normal 1.7-12.0 [facility] Comment on above: Performed By: #### A CET, CMP #### [facility] [address] [place] [address] Dr. Gilberto Ocampo NEUT # 3.8 103/ul Normal 1.4-6.5 [facility] Comment on above: Performed By: #### A CET, CMP #### [facility] [address] [place] [address] Dr. Gilberto Ocampo Neutrophils/100 WBC (Bld) 53.0 % Normal 43.0-75.0 [facility] Comment on above: Performed By: #### A CET, CMP #### [facility] [address] [place] [address] Dr. Gilberto Ocampo Platelet mean volume (Bld) [Entitic vol] 11.9 fL Normal 9.5-13.5 [facility] Comment on above: Performed By: #### A CET, CMP #### [facility] [address] [place] [address] Dr. Gilberto Ocampo PLT 209 103/ul Normal 150-450 [facility] Comment on above: Performed By: #### A CET, CMP #### [facility] [address] [address] [address] Gilberto Ocampo RBC 4.04 106/ul Critically low 4.20-5.40 [facility] Comment on above: Performed By: #### A CET, CMP #### [facility] [address] [address] [address] Gilberto Ocampo WBC 7.1 103/ul Normal 4.0-11.0 [facility] Comment on above: Performed By: #### A CET, CMP #### [facility] [address] [address] [address] Gilberto Ocampo GLYCOHEMOGLOBIN A1Con 2022 ADA RECOMMENDATION SEE BELOW Normal [facility] Comment on above: Result Comment: ADA RECOMMENDED LIMIT 4.0 - 6.0 ADA THERAPEUTIC TARGET < 7.0 ACTION SUGGESTED > 7.0 Performed By: #### A 1C #### [facility] [address] [place] [address] Dr. Gilberto Ocampo Glucose [Mass/Vol] 189 mg/dL Normal [facility] Comment on above: Performed By: #### A 1C #### [facility] [address] [place] [address] Dr. Gilberto Ocampo HbA1c (Bld) [Mass fraction] 8.2 % Critically high 4.5-6.2 [facility] Comment on above: Performed By: #### A 1C #### [facility] [address] [place] [address] Dr. Gilberto Ocampo PROF 14(COMP METB)on 023 Albumin [Mass/Vol] 3.0 g/dL Critically low 3.4-5.0 [facility] Comment on above: Performed By: #### C MP #### [facility] [address] [place] [address] Dr. Gilberto Ocampo Albumin/Globulin [Mass ratio] 0.8 {ratio} Normal [facility] Comment on above: Performed By: #### C MP #### [facility] [address] [address] [address] Gilberto Ocampo ALP [Catalytic activity/Vol] 89 U/L Normal 46-116 [facility] Comment on above: Performed By: #### C MP #### [facility] [address] [address] [address] Gilberto Ocampo ALT [Catalytic activity/Vol] 22 U/L Normal 14-59 [facility] Comment on above: Performed By: #### C MP #### [facility] [address] [address] [address] Gilberto Ocampo Anion gap [Moles/Vol] 12.4 mmol/L Normal [facility] Comment on above: Performed By: #### C MP #### [facility] [address] [address] [address] Gilberto Ocampo AST [Catalytic activity/Vol] 19 U/L Normal 15-37 [facility] Comment on above: Performed By: #### C MP #### [facility] [address] [place] [address] Dr. Gilberto Ocampo Bilirubin [Mass/Vol] 0.6 mg/dL Normal 0.2-1.0 [facility] Comment on above: Performed By: #### C MP #### [facility] [address] [address] [address] Gilberto Ocampo Calcium [Mass/Vol] 8.9 mg/dL Normal 8.5-10.1 [facility] Comment on above: Performed By: #### C MP #### [facility] [address] [address] [address] Gilberto Ocampo Chloride [Moles/Vol] 103 mmol/L Normal 98-107 [facility] Comment on above: Performed By: #### C MP #### [facility] [address] [address] [address] Gilberto Ocampo CO2 [Moles/Vol] 28.5 mmol/L Normal 21.0-32.0 [facility] Comment on above: Performed By: #### C MP #### [facility] [address] [address] [address] Gilberto Ocampo Creatinine [Mass/Vol] 1.52 mg/dL Critically high 0.55-1.02 [facility] Comment on above: Performed By: #### C MP #### [facility] [address] [address] [address] Gilberto Ocampo EGFR-AF TURKS AND [place] ISLANDER 41 mL/min/1.73m2 Critically low >=60 [facility] Comment on above: Performed By: #### C MP #### [facility] [address] [address] [address] Gilberto Ocampo EGFR-NON AF TURKS AND [place] IS[place]ER 34 mL/min/1.73m2 Critically low >=60 [facility] Comment on above: Performed By: #### C MP #### [facility] [address] [address] [address] Gilberto Ocampo Globulin (S) [Mass/Vol] 3.8 g/dL Normal [facility] Comment on above: Performed By: #### C MP #### [facility] [address] [address] [address] Gilberto Ocampo Glucose [Mass/Vol] 206 mg/dL Critically high 74-106 [facility] Comment on above: Performed By: #### C MP #### [facility] [address] [address] [address] Gilberto Ocampo Potassium [Moles/Vol] 3.9 mmol/L Normal 3.5-5.1 [facility] Comment on above: Performed By: #### C MP #### [facility] [address] [address] [address] Gilberto Ocampo Protein [Mass/Vol] 6.8 g/dL Normal 6.4-8.2 [facility] Comment on above: Performed By: #### C MP #### [facility] [address] [address] [address] Gilberto Ocampo Sodium [Moles/Vol] 140 mmol/L Normal 136-145 [facility] Comment on above: Performed By: #### C MP #### [facility] [address] [address] [address] Gilberto Ocampo Urea nitrogen [Mass/Vol] 16.0 mg/dL Normal 7.0-18.0 [facility] Comment on above: Performed By: #### C MP #### [facility] [address] [place] [address] Dr. Gilberto Ocampo Urea nitrogen/Creatinin e [Mass ratio] 10.5 mg/mg Normal [facility] Comment on above: Performed By: #### C MP #### [facility] [address] [place] [address] Dr. Gilberto Ocampo CULTURE URINEon 12-17-2022 CULTURE URINE Culture Observations: NO GROWTH. Normal [facility] Comment on above: Performed By: #### A CET, CMP #### [facility] [address] [place] [address] Dr. Gilberto Ocampo UA RANDOMon 12-17-2022 Bilirubin Ql (U) Negative Normal NEGATIVE [facility] Comment on above: Performed By: #### A CET, CMP #### [facility] [address] [place] [address] Dr. Gilberto Ocampo Clarity (U) CLEAR Normal CLEAR [facility] Comment on above: Performed By: #### A CET, CMP #### [facility] [address] [place] [address] Dr. Gilberto Ocampo Color (U) YELLOW Normal YELLOW [facility] Comment on above: Performed By: #### A CET, CMP #### [facility] [address] [place] [address] Dr. Gilberto Ocampo Glucose Ql (U) 250 mg/dl Abnormal NEGATIVE [facility] Comment on above: Performed By: #### A CET, CMP #### [facility] [address] [place] [address] Dr. Gilberto Ocampo Hemoglobin Ql (U) TRACE-INTACT Abnormal NEGATIVE [facility] Comment on above: Performed By: #### A CET, CMP #### [facility] [address] [place] [address] Dr. Gilberto Ocampo Ketones Ql (U) TRACE Abnormal NEGATIVE [facility] Comment on above: Performed By: #### A CET, CMP #### [facility] [address] [place] [address] Dr. Gilberto Ocampo LEUKOCYTES Negative Normal NEGATIVE [facility] Comment on above: Performed By: #### A CET, CMP #### [facility] [address] [address] [address] Gilberto Ocampo Nitrite Ql (U) Negative Normal NEGATIVE [facility] Comment on above: Performed By: #### A CET, CMP #### [facility] [address] [address] [address] Gilberto Ocampo pH (U) 5.0 [pH] Normal 5-9 [facility] Comment on above: Performed By: #### A CET, CMP #### [facility] [address] [address] [address] Gilberto Ocampo SPEC GRAVITY >=1.030 Abnormal 1.005-<=1.025 [facility] Comment on above: Performed By: #### A CET, CMP #### [facility] [address] [place] [address] Dr. Gilberto Ocampo UA PROTEIN TRACE Normal NEGATIVE/ TRACE [facility] Comment on above: Performed By: #### A CET, CMP #### [facility] [address] [place] [address] Dr. Gilberto Ocampo Urobilinogen Qn (U) 0.2 {Torres'U}/dL Normal 0.2 - 1.0 [facility] Comment on above: Performed By: #### A CET, CMP #### [facility] [address] [place] [address] Dr. Gilberto Ocampo XR HUMERUS RT MIN [...] THONY CLARK Date: 2022-11-17 02:30 Normal [facility] XR SHOULDER RT 2V or >on [...] THONY CLARK Date: 2022-11-17 03:30 Normal [facility] CULTURE URINEon 11-12-2022 CULTURE URINE Isolate [...] F Trimethoprim/Sulfa methoxazole <=20 S F Normal [facility] Comment on above: Performed By: #### A CET, CMP #### [facility] [address] [place] [address] Dr. Gilberto Ocampo CULTURE URINEon 11-11-2022 CULTURE [...] Trimethoprim/Sulfa methoxazole <=20 S F Normal [facility] Comment on above: Performed By: #### A CET, CMP #### [facility] [address] [address] [address] Gilberto Ocampo ACETAMINOPHENon 11-09-2022 Acetaminophen [Mass/Vol] ug/mL Critically low 10.0-30.0 [facility] Comment on above: Performed By: #### A CET, CMP #### [facility] [address] [place] [address] Dr. Gilberto Ocampo CBC AUTO DIFFon 11-09-2022 BASO # 0.0 103/ul Normal 0.0-0.1 [facility] Comment on above: Performed By: #### C BC #### [facility] [address] [place] [address] Dr. Gilberto Ocampo Basophils/100 WBC (Bld) 0.5 % Normal 0.2-2.0 [facility] Comment on above: Performed By: #### C BC #### [facility] [address] [place] [address] Dr. Gilberto Ocampo EO # 0.4 103/ul Normal 0.0-0.7 [facility] Comment on above: Performed By: #### C BC #### [facility] [address] [place] [address] Dr. Gilberto Ocampo Eosinophils/100 WBC (Bld) 6.4 % Normal 0.9-7.0 [facility] Comment on above: Performed By: #### C BC #### [facility] [address] [place] [address] Dr. Gilberto Ocampo Erythrocyte distribution width (RBC) [Ratio] 13.7 % Normal 11.0-15.0 [facility] Comment on above: Performed By: #### C BC #### [facility] [address] [place] [address] Dr. Gilberto Ocampo Hematocrit (Bld) [Volume fraction] 38.1 % Normal 36.0-48.0 [facility] Comment on above: Performed By: #### C BC #### [facility] [address] [place] [address] Dr. Gilberto Ocampo Hemoglobin (Bld) [Mass/Vol] 12.2 g/dL Normal 12.0-16.0 [facility] Comment on above: Performed By: #### C BC #### [facility] [address] [place] [address] Dr. Gilberto Ocampo IG # 0.02 10e3/ul Normal 0.00-0.03 [facility] Comment on above: Performed By: #### C BC #### [facility] [address] [place] [address] Dr. Gilberto Ocampo IG % 0.3 % Normal 0.0-0.5 [facility] Comment on above: Performed By: #### C BC #### [facility] [address] [place] [address] Dr. Gilberto Ocampo LYMPH # 2.1 103/ul Normal 1.2-3.8 [facility] Comment on above: Performed By: #### C BC #### [facility] [address] [place] [address] Dr. Gilberto Ocampo Lymphocytes/100 WBC (Bld) 33.1 % Normal 20.5-60.0 [facility] Comment on above: Performed By: #### C BC #### [facility] [address] [place] [address] Dr. Gilberto Ocampo MANUAL DIFF REQ NO Normal [facility] Comment on above: Performed By: #### C BC #### [facility] [address] [place] [address] Dr. Gilberto Ocampo MCH (RBC) [Entitic mass] 29.6 pg Normal 26.7-34.0 [facility] Comment on above: Performed By: #### C BC #### [facility] [address] [place] [address] Dr. Gilberto Ocampo MCHC (RBC) [Mass/Vol] 32.0 g/dL Normal 29.9-35.2 [facility] Comment on above: Performed By: #### C BC #### [facility] [address] [place] [address] Dr. Gilberto Ocampo MCV (RBC) [Entitic vol] 92.5 fL Normal 81.0-99.0 [facility] Comment on above: Performed By: #### C BC #### [facility] [address] [place] [address] Dr. Gilberto Ocampo MONO # 0.7 103/ul Normal 0.3-0.8 [facility] Comment on above: Performed By: #### C BC #### [facility] [address] [address] [address] Gilberto Ocampo Monocytes/100 WBC (Bld) 11.6 % Normal 1.7-12.0 [facility] Comment on above: Performed By: #### C BC #### [facility] [address] [place] [address] Dr. Gilberto Ocampo NEUT # 3.0 103/ul Normal 1.4-6.5 [facility] Comment on above: Performed By: #### C BC #### [facility] [address] [place] [address] Dr. Gilberto Ocampo Neutrophils/100 WBC (Bld) 48.1 % Normal 43.0-75.0 [facility] Comment on above: Performed By: #### C BC #### [facility] [address] [place] [address] Dr. Gilberto Ocampo Platelet mean volume (Bld) [Entitic vol] 10.8 fL Normal 9.5-13.5 [facility] Comment on above: Performed By: #### C BC #### [facility] [address] [place] [address] Dr. Gilberto Ocampo PLT 212 103/ul Normal 150-450 [facility] Comment on above: Performed By: #### C BC #### [facility] [address] [place] [address] Dr. Gilberto Ocampo RBC 4.12 106/ul Critically low 4.20-5.40 [facility] Comment on above: Performed By: #### C BC #### [facility] [address] [place] [address] Dr. Gilberto Ocampo WBC 6.3 103/ul Normal 4.0-11.0 [facility] Comment on above: Performed By: #### C BC #### [facility] [address] [place] [address] Dr. Gilberto Ocampo DRUG SCREEN RAPID (URINE)on 11-09-2022 AMP Negative Normal NEGATIVE [facility] Comment on above: Performed By: #### U ACSIND, UMICRO #### [facility] [address] [place] [address] Dr. Gilberto Ocampo BAR Negative Normal NEGATIVE [facility] Comment on above: Performed By: #### U ACSIND, UMICRO #### [facility] [address] [place] [address] Dr. Gilberto Ocampo BUP Negative Normal NEGATIVE [facility] Comment on above: Performed By: #### U ACSIND, UMICRO #### [facility] [address] [place] [address] Dr. Gilberto Ocampo BZO Negative Normal NEGATIVE [facility] Comment on above: Performed By: #### U ACSIND, UMICRO #### [facility] [address] [place] [address] Dr. Gilberto Ocampo CARLIE Negative Normal NEGATIVE [facility] Comment on above: Performed By: #### U ACSIND, UMICRO #### [facility] [address] [place] [address] Dr. Gilberto Ocampo CUT-OFFS SEE BELOW Normal [facility] Comment on above: Result Comment: AMP [...] Performed By: #### U ACSIND, UMICRO #### [facility] [address] [place] [address] Dr. Gilberto Ocampo DRUG CUT HEADER DRUG CLASS TEST SYSTEM CUT-OFF CONCENTRATIONS ARE FOLLOWS: Normal [facility] Comment on above: Performed By: #### U ACSIND, UMICRO #### [facility] [address] [address] [address] Gilberto Ocampo mAMP Negative Normal NEGATIVE [facility] Comment on above: Performed By: #### U ACSIND, UMICRO #### [facility] [address] [address] [address] Gilberto Ocampo MTD Negative Normal NEGATIVE [facility] Comment on above: Performed By: #### U ACSIND, UMICRO #### [facility] [address] [address] [address] Gilberto Ocampo OPI Negative Normal NEGATIVE [facility] Comment on above: Performed By: #### U ACSIND, UMICRO #### [facility] [address] [address] [address] Gilberto Ocampo OXY Negative Normal NEGATIVE [facility] Comment on above: Performed By: #### U ACSIND, UMICRO #### [facility] [address] [address] [address] Gilberto Ocampo PCP Negative Normal NEGATIVE [facility] Comment on above: Performed By: #### U ACSIND, UMICRO #### [facility] [address] [address] [address] Gilberto Ocampo PPX Negative Normal NEGATIVE [facility] Comment on above: Performed By: #### U ACSIND, UMICRO #### [facility] [address] [address] [address] Gilberto Ocampo TCA Negative Normal NEGATIVE [facility] Comment on above: Performed By: #### U ACSIND, UMICRO #### [facility] [address] [address] [address] Gilberto Ocampo THC Negative Normal NEGATIVE [facility] Comment on above: Performed By: #### U ACSIND, UMICRO #### [facility] [address] [address] [address] Gilberto Ocampo ER URINE PROFILEon 2 Clarity (U) CLOUDY Abnormal CLEAR [facility] Comment on above: Performed By: #### U ACSWALI UMICRO #### [facility] [address] [address] [address] Gilberto ROWAN A micrscopic examination will be performed if indicated. Normal [facility] Comment on above: Performed By: #### U ACSWALI UMICRO #### [facility] [address] [place] [address] Dr. Gilberto Ocampo pH (U) 6.0 [pH] Normal 5-9 [facility] Comment on above: Performed By: #### U ACSTARA KEYESICRO #### [facility] [address] [place] [address] Dr. Gilberto Ocampo Protein (U) [Mass/Vol] 30 mg/dL Abnormal NEGATIVE/ TRACE [facility] Comment on above: Performed By: #### U ACSWALI UMICRO #### [facility] [address] [place] [address] Dr. Gilberto Ocampo ETHANOL (BLD ALC)on 11-09-20 22 ALC NOTE NOTE: 80 mg/dl is the legal limit for a blood alcohol level Normal [facility] Comment on above: Performed By: #### E TH #### [facility] [address] [place] [address] Dr. Gilberto Ocampo Ethanol [Mass/Vol] mg/dL Normal [facility] Comment on above: Performed By: #### E TH #### [facility] [address] [place] [address] Dr. Gilberto Ocampo GLYCOHEMOGLOBIN A1Con 2021 ADA RECOMMENDATION SEE BELOW Normal [facility] Comment on above: Result Comment: ADA RECOMMENDED LIMIT 4.0 - 6.0 ADA THERAPEUTIC TARGET < 7.0 ACTION SUGGESTED > 7.0 Performed By: #### U AMERICA JAINRO #### [facility] [address] [place] [address] Dr. Gilberto Ocampo Glucose [Mass/Vol] 177 mg/dL Normal [facility] Comment on above: Performed By: #### U ACSAMERICA KEYESRO #### [facility] [address] [place] [address] Dr. Gilberto Ocampo HbA1c (Bld) [Mass fraction] 7.8 % Critically high 4.5-6.2 [facility] Comment on above: Performed By: #### U ZAID JAIN #### [facility] [address] [address] [address] Gilberto Ocampo LIPID PROFILEon 11-09-2022 CHOL-HDL RATIO NORM SEE BELOW Normal [facility] Comment on above: Result Comment: 3.3 - 4.4 LOW RISK 4.4 - 7.1 AVERAGE RISK 7.1 - 11.0 MODERATE RISK >11.0 HIGH RISK Performed By: #### L IPID #### [facility] [address] [address] [address] Gilberto Ocampo Cholesterol [Mass/Vol] 111 mg/dL Normal <=200 [facility] Comment on above: Performed By: #### L IPID #### [facility] [address] [address] [address] Gilberto Ocampo Cholesterol in HDL [Mass/Vol] 64 mg/dL Critically high 40-60 [facility] Comment on above: Performed By: #### L IPID #### [facility] [address] [address] [address] Gilberto Ocampo Cholesterol in LDL [Mass/Vol] 28.6 mg/dL Normal [facility] Comment on above: Performed By: #### L IPID #### [facility] [address] [address] [address] Gilberto Ocampo Cholesterol.total/ Cholesterol in HDL [Mass ratio] 1.7 {ratio} Normal [facility] Comment on above: Performed By: #### L IPID #### [facility] [address] [address] [address] Gilberto Ocampo HDL NORMAL > or = 60 mg/dl - LOW CARDIOVASCULAR RISK <40 mg/dl - HIGH CARDIOVASCULAR RISK Normal [facility] Comment on above: Performed By: #### L IPID #### [facility] [address] [address] [address] Gilberto Ocampo LDL CALC NORMAL SEE BELOW Normal [facility] Comment on above: Result Comment: <100 mg/dl OPTIMAL 100 - 129 mg/dl NEAR OR ABOVE OPTIMAL 130 - 159 mg/dl BORDERLINE HIGH 160 - 189 mg/dl HIGH >190 mg/dl VERY HIGH Performed By: #### L IPID #### [facility] [address] [place] [address] Dr. Gilberto Ocampo Triglyceride [Mass/Vol] 92 mg/dL Normal <=150 [facility] Comment on above: Performed By: #### L IPID #### [facility] [address] [place] [address] Dr. Gilberto Ocampo VLDL CALC 18.4 mg/dL Normal [facility] Comment on above: Performed By: #### L IPID #### [facility] [address] [place] [address] Dr. Gilberto Ocampo PROF 14(COMP METB)on 022 Albumin [Mass/Vol] 3.5 g/dL Normal 3.4-5.0 [facility] Comment on above: Performed By: #### A CET, CMP #### [facility] [address] [place] [address] Dr. Gilberto Ocampo Albumin/Globulin [Mass ratio] 0.9 {ratio} Normal [facility] Comment on above: Performed By: #### A CET, CMP #### [facility] [address] [place] [address] Dr. Gilberto Ocampo ALP [Catalytic activity/Vol] 87 U/L Normal 46-116 [facility] Comment on above: Performed By: #### A CET, CMP #### [facility] [address] [place] [address] Dr. Gilberto Ocampo ALT [Catalytic activity/Vol] 23 U/L Normal 14-59 [facility] Comment on above: Performed By: #### A CET, CMP #### [facility] [address] [place] [address] Dr. Gilberto Ocampo Anion gap [Moles/Vol] 9.3 mmol/L Normal [facility] Comment on above: Performed By: #### A CET, CMP #### [facility] [address] [place] [address] Dr. Gilberto Ocampo AST [Catalytic activity/Vol] 24 U/L Normal 15-37 [facility] Comment on above: Performed By: #### A CET, CMP #### [facility] [address] [address] [address] Gilberto Ocampo Bilirubin [Mass/Vol] 1.0 mg/dL Normal 0.2-1.0 [facility] Comment on above: Performed By: #### A CET, CMP #### [facility] [address] [address] [address] Gilberto Ocampo Calcium [Mass/Vol] 8.7 mg/dL Normal 8.5-10.1 [facility] Comment on above: Performed By: #### A CET, CMP #### [facility] [address] [place] [address] Dr. Gilberto Ocampo Chloride [Moles/Vol] 102 mmol/L Normal 98-107 [facility] Comment on above: Performed By: #### A CET, CMP #### [facility] [address] [place] [address] Dr. Gilberto cOampo CO2 [Moles/Vol] 32.4 mmol/L Critically high 21.0-32.0 [facility] Comment on above: Performed By: #### A CET, CMP #### [facility] [address] [place] [address] Dr. Gilberto Ocampo Creatinine [Mass/Vol] 1.58 mg/dL Critically high 0.55-1.02 [facility] Comment on above: Performed By: #### A CET, CMP #### [facility] [address] [place] [address] Dr. Gilberto Ocampo EGFR-AF TURKS AND CAICOS ISLANDER 39 mL/min/1.73m2 Critically low >=60 [facility] Comment on above: Performed By: #### A CET, CMP #### [facility] [address] [place] [address] Dr. Gilberto Ocampo EGFR-NON AF TURKS AND CAICOS ISLANDER 32 mL/min/1.73m2 Critically low >=60 [facility] Comment on above: Performed By: #### A CET, CMP #### [facility] [address] [address] [address] Gilberto Ocampo Globulin (S) [Mass/Vol] 3.7 g/dL Normal [facility] Comment on above: Performed By: #### A CET, CMP #### [facility] [address] [place] [address] Dr. Gilberto Ocampo Glucose [Mass/Vol] 272 mg/dL Critically high 74-106 [facility] Comment on above: Performed By: #### A CET, CMP #### [facility] [address] [place] [address] Dr. Gilberto Ocampo Potassium [Moles/Vol] 3.7 mmol/L Normal 3.5-5.1 [facility] Comment on above: Performed By: #### A CET, CMP #### [facility] [address] [place] [address] Dr. Gilberto Ocampo Protein [Mass/Vol] 7.2 g/dL Normal 6.4-8.2 [facility] Comment on above: Performed By: #### A CET, CMP #### [facility] [address] [place] [address] Dr. Gilberto Ocampo Sodium [Moles/Vol] 140 mmol/L Normal 136-145 [facility] Comment on above: Performed By: #### A CET, CMP #### [facility] [address] [place] [address] Dr. Gilberto Ocampo Urea nitrogen [Mass/Vol] 20.0 mg/dL Critically high 7.0-18.0 [facility] Comment on above: Performed By: #### A CET, CMP #### [facility] [address] [place] [address] Dr. Gilberto Ocampo Urea nitrogen/Creatinin e [Mass ratio] 12.7 mg/mg Normal [facility] Comment on above: Performed By: #### A CET, CMP #### [facility] [address] [place] [address] Dr. Gilberto Ocampo UA (CLEAN/CATCH) SOFTWARE INTERN/MICRO I F IND.on 11-09-2022 Bilirubin Ql (U) Negative Normal NEGATIVE [facility] Comment on above: Performed By: #### U ACSIND, UMICRO #### [facility] [address] [address] [address] Gilberto Ocampo Clarity (U) CLEAR Normal CLEAR [facility] Comment on above: Performed By: #### U ACSIND, UMICRO #### [facility] [address] [address] [address] Gilberto Ocampo Color (U) LT. YELLOW Normal YELLOW [facility] Comment on above: Performed By: #### U ACSIND, UMICRO #### [facility] [address] [address] [address] Gilberto Ocampo Glucose Ql (U) Negative Normal NEGATIVE [facility] Comment on above: Performed By: #### U ACSIND, UMICRO #### [facility] [address] [place] [address] Dr. Gilberto Ocampo Hemoglobin Ql (U) LARGE Abnormal NEGATIVE [facility] Comment on above: Performed By: #### U ACSIND, UMICRO #### [facility] [address] [place] [address] Dr. Gilberto Ocampo Ketones Ql (U) TRACE Abnormal NEGATIVE [facility] Comment on above: Performed By: #### U ACSIND, UMICRO #### [facility] [address] [place] [address] Dr. Gilberto Ocampo LEUKOCYTES MODERATE Abnormal NEGATIVE [facility] Comment on above: Performed By: #### U ACSIND, UMICRO #### [facility] [address] [place] [address] Dr. Gilberto Ocampo Nitrite Ql (U) Positive Abnormal NEGATIVE [facility] Comment on above: Performed By: #### U ACSIND, UMICRO #### [facility] [address] [place] [address] Dr. Gilberto Ocampo pH (U) 5.5 [pH] Normal 5-9 [facility] Comment on above: Performed By: #### U ACSIND, UMICRO #### [facility] [address] [place] [address] Dr. Gilberto Ocampo SPEC GRAVITY 1.025 Normal 1.005-<=1.025 [facility] Comment on above: Performed By: #### U ACSIND, UMICRO #### [facility] [address] [place] [address] Dr. Gilberto Ocampo UA PROTEIN 30 mg/dl Abnormal NEGATIVE/ TRACE [facility] Comment on above: Performed By: #### U ACSIND, UMICRO #### [facility] [address] [place] [address] Dr. Gilberto Ocampo UR MICRO IND INDICATED Normal [facility] Comment on above: Performed By: #### U ACSIND, UMICRO #### [facility] [address] [place] [address] Dr. Gilberto Ocampo Urobilinogen Qn (U) 0.2 {Torres'U}/dL Normal 0.2 - 1.0 [facility] Comment on above: Performed By: #### U ACSIND, UMICRO #### [facility] [address] [place] [address] Dr. Gilberto Ocampo URINE MICROSCOPIC ONLYon BACTERIA SMALL Abnormal NONE SEEN [facility] Comment on above: Performed By: #### U ACSIND, UMICRO #### [facility] [address] [place] [address] Dr. Gilberto Ocampo BACTERIA MODERATE Abnormal NONE SEEN [facility] Comment on above: Performed By: #### U ACSIND, UMICRO #### [facility] [address] [place] [address] Dr. Gilberto Ocampo Bacteria identified Cx Nom (U) INDICATED Normal [facility] Comment on above: Performed By: #### U ACSIND, UMICRO #### [facility] [address] [place] [address] Dr. Gilberto Ocampo CAST NONE SEEN Normal NONE SEEN [facility] Comment on above: Performed By: #### U ACSIND, UMICRO #### [facility] [address] [place] [address] Dr. Gilberto Ocampo Crystals LM Nom (Urine sed) NONE SEEN Normal NONE SEEN [facility] Comment on above: Performed By: #### U ACSIND, UMICRO #### [facility] [address] [address] [address] Gilberto Ocampo Epithelial cells LM Ql (Urine sed) MODERATE Abnormal NONE SEEN /RARE [facility] Comment on above: Performed By: #### U ACSIND, UMICRO #### [facility] [address] [address] [address] Gilberto Ocampo MUCOUS TRACE Abnormal NONE SEEN [facility] Comment on above: Performed By: #### U ACSIND, UMICRO #### [facility] [address] [address] [address] Gilberto Ocampo MUCOUS SMALL Abnormal NONE SEEN [facility] Comment on above: Performed By: #### U ACSIND, UMICRO #### [facility] [address] [place] [address] Dr. Gilberto Ocampo RBC 2-5 Abnormal 0-2 [facility] Comment on above: Performed By: #### U ACSWALI, UMICRO #### [facility] [address] [address] [address] Gilberto Ocampo RBC 5-10 Abnormal 0-2 [facility] Comment on above: Performed By: #### U ACSWALI, UMICRO #### [facility] [address] [address] [address] Gilberto Ocampo WBC 20-50 Abnormal NONE SEEN [facility] Comment on above: Performed By: #### U ACSWALI, UMICRO #### [facility] [address] [address] [address] Gilberto Ocampo WBC 10-20 Abnormal NONE SEEN [facility] Comment on above: Performed By: #### U ACSIND, UMICRO #### [facility] [address] [address] [address] Gilberto Ocampo MG MAMM SCREEN 3D DORIE CADon 10-11-2022 MG MAMM SCREEN 3D DORIE CAD Patient: MALCOM KNOWLES Exam Date: 10/11/2022 : 1955 Gender:F Ordering : DR DUSTY WALTERS . Admission #: [id number] Family : Order #: [id number] CLICK HERE TO VIEW EXAM RADIOLOGY REPORT PROCEDURE: MAMMOGRAM SCREENING 3D BILATERAL CAD COMPARISON: MG MAMM SCREEN 3D DORIE CAD, 10/09/2021. INDICATIONS: Screening mammography Calculator Name NCI Breast Cancer Risk Assessment Tool 5 Year Breast Cancer Risk 1.50% Lifetime Breast Cancer Risk 4.80% Personal Breast Cancer No Personal Ovarian Cancer No Treatments Hysterectomy Family Cancers Father with prostate cancer at age 66. LOCATION: [facility] BREAST COMPOSITION: Scattered areas fibroglandular density. [...] MD on 10/11/2022 at 14:47 Normal [facility] PTH INTACTon 09-18-2022 PTH, Intact 46 pg/mL Normal 15-65 [facility] Comment on above: Performed By: #### U ACSAMERICA KEYESRO #### [facility] [address] [place] [address] Dr. Gilberto Ocampo HEMOGRAM AND PLATELon 2021 Hematocrit (Bld) [Volume fraction] 37.2 % Normal 36.0-48.0 [facility] Comment on above: Performed By: #### H H #### [facility] [address] [place] [address] Dr. Gilberto Ocampo Hemoglobin (Bld) [Mass/Vol] 12.2 g/dL Normal 12.0-16.0 [facility] Comment on above: Performed By: #### H H #### [facility] [address] [place] [address] Dr. Gilberto Ocampo MCH (RBC) [Entitic mass] 30.3 pg Normal 26.7-34.0 [facility] Comment on above: Performed By: #### H H #### [facility] [address] [place] [address] Dr. Gilberto Ocampo MCHC (RBC) [Mass/Vol] 32.8 g/dL Normal 29.9-35.2 [facility] Comment on above: Performed By: #### H H #### [facility] [address] [place] [address] Dr. Gilberto Ocampo MCV (RBC) [Entitic vol] 92.5 fL Normal 81.0-99.0 [facility] Comment on above: Performed By: #### H H #### [facility] [address] [place] [address] Dr. Gilberto Ocampo PLT 194 103/ul Normal 150-450 [facility] Comment on above: Performed By: #### H H #### [facility] [address] [place] [address] Dr. Gilberto Ocampo RBC 4.02 106/ul Critically low 4.20-5.40 [facility] Comment on above: Performed By: #### H H #### [facility] [address] [place] [address] Dr. Gilberto Ocampo WBC 5.4 103/ul Normal 4.0-11.0 [facility] Comment on above: Performed By: #### H H #### [facility] [address] [place] [address] Dr. Gilberto Ocampo MAGNESIUMon 09-15-2022 Magnesium [Mass/Vol] 1.9 mg/dL Normal 1.8-2.4 [facility] Comment on above: Performed By: #### A CET, CMP #### [facility] [address] [place] [address] Dr. Gilberto Ocampo PROF 14(COMP METB)on 022 Albumin [Mass/Vol] 3.3 g/dL Critically low 3.4-5.0 [facility] Comment on above: Performed By: #### A CET, CMP #### [facility] [address] [place] [address] Dr. Gilberto Ocampo Albumin/Globulin [Mass ratio] 0.9 {ratio} Normal [facility] Comment on above: Performed By: #### A CET, CMP #### [facility] [address] [address] [address] Gilberto Ocampo ALP [Catalytic activity/Vol] 85 U/L Normal 46-116 [facility] Comment on above: Performed By: #### A CET, CMP #### [facility] [address] [address] [address] Gilberto Ocampo ALT [Catalytic activity/Vol] 32 U/L Normal 14-59 [facility] Comment on above: Performed By: #### A CET, CMP #### [facility] [address] [address] [address] Gilberto Ocampo Anion gap [Moles/Vol] 12.3 mmol/L Normal [facility] Comment on above: Performed By: #### A CET, CMP #### [facility] [address] [address] [address] Gilberto Ocampo AST [Catalytic activity/Vol] 20 U/L Normal 15-37 [facility] Comment on above: Performed By: #### A CET, CMP #### [facility] [address] [address] [address] Gilberto Ocampo Bilirubin [Mass/Vol] 1.1 mg/dL Critically high 0.2-1.0 [facility] Comment on above: Performed By: #### A CET, CMP #### [facility] [address] [address] [address] Gilberto Ocampo Calcium [Mass/Vol] 8.5 mg/dL Normal 8.5-10.1 [facility] Comment on above: Performed By: #### A CET, CMP #### [facility] [address] [address] [address] Gilberto Ocampo Chloride [Moles/Vol] 103 mmol/L Normal 98-107 [facility] Comment on above: Performed By: #### A CET, CMP #### [facility] [address] [address] [address] Gilberto Ocampo CO2 [Moles/Vol] 29.5 mmol/L Normal 21.0-32.0 [facility] Comment on above: Performed By: #### A CET, CMP #### [facility] [address] [address] [address] Gilberto Ocampo Creatinine [Mass/Vol] 1.52 mg/dL Critically high 0.55-1.02 [facility] Comment on above: Performed By: #### A CET, CMP #### [facility] [address] [address] [address] Gilberto Ocampo EGFR-AF TURKS AND CAICOS ISLANDER 41 mL/min/1.73m2 Critically low >=60 [facility] Comment on above: Performed By: #### A CET, CMP #### [facility] [address] [address] [address] Gilberto Ocampo EGFR-NON AF TURKS AND CAICOS ISLANDER 34 mL/min/1.73m2 Critically low >=60 [facility] Comment on above: Performed By: #### A CET, CMP #### [facility] [address] [place] [address] Dr. Gilberto Ocampo Globulin (S) [Mass/Vol] 3.6 g/dL Normal [facility] Comment on above: Performed By: #### A CET, CMP #### [facility] [address] [address] [address] Gilberto Ocampo Glucose [Mass/Vol] 323 mg/dL Critically high 74-106 [facility] Comment on above: Performed By: #### A CET, CMP #### [facility] [address] [place] [address] Dr. Gilberto Ocampo Potassium [Moles/Vol] 3.8 mmol/L Normal 3.5-5.1 [facility] Comment on above: Performed By: #### A CET, CMP #### [facility] [address] [address] [address] Gilberto Ocampo Protein [Mass/Vol] 6.9 g/dL Normal 6.4-8.2 [facility] Comment on above: Performed By: #### A CET, CMP #### [facility] [address] [address] [address] Gilberto Ocampo Sodium [Moles/Vol] 141 mmol/L Normal 136-145 [facility] Comment on above: Performed By: #### A CET, CMP #### [facility] [address] [place] [address] Dr. Gilberto Ocampo Urea nitrogen [Mass/Vol] 16.0 mg/dL Normal 7.0-18.0 [facility] Comment on above: Performed By: #### A CET, CMP #### [facility] [address] [place] [address] Dr. Gilberto Ocampo Urea nitrogen/Creatinin e [Mass ratio] 10.5 mg/mg Normal [facility] Comment on above: Performed By: #### A CET, CMP #### [facility] [address] [place] [address] Dr. Gilberto Ocampo URIC ACID SERUMon 09-15-2022 Urate [Mass/Vol] 3.3 mg/dL Normal 2.6-6.0 [facility] Comment on above: Performed By: #### A CET, CMP #### [facility] [address] [place] [address] Dr. Gilberto Ocampo VITAMIN D 25 OHon 09-15-2022 VIT D 25-OH 57.1 ng/mL Normal [facility] Comment on above: Performed By: #### U AMERICA JAINRO #### [facility] [address] [place] [address] Dr. Gilberto Ocampo VIT D RANGES SEE BELOW Normal [facility] Comment on above: Result Comment: <20 ng/mL Vit D deficient 20 - <30 ng/mL Vit D insufficient 30 - 100 ng/mL Vit D sufficient >100 ng/mL Potential Toxicity Performed By: #### U ACSWALI UMICRO #### [facility] [address] [place] [address] Dr. Gilberto Ocampo US KIDNEYSon 08-30-2022 US [...] by: ADAMS RAGSDALE Date: 2022-08-30 11:46 Normal [facility] XR CHEST 2 Von 08-27-2022 XR CHEST [...] by: ADAMS RAGSDALE Date: 2022-08-27 21:54 Normal [facility] XR NECK SOFT TISSUEon 2021 XR NECK [...] the cervical spine. Electronically authenticated by: ADAMS RAGSDLAE Date: 2022-08-27 21:58 Normal [facility] Tobacco Screening.on 022 Adult depression screening assessment No [facility] [address] DO Work Phone: Fall risk assessment b) One or more falls in the last year [facility] 250 DO Work Phone: Tobacco use status CPHS b) No [facility] 250 DO Work Phone: Josephine 01-18-2021 CNPN Telephone (GYNML) -------- MALCOM KNOWLES ([id number]) 1955 F Date Time Provider Department 01/18/21 REGINA MANZO GYNML During your visit today, we recorded the following information about you: Anabela Bettencourt Pss 01/18/2021 10:00 AM Signed Called patient and told her Mahdi left and needs to make a follow up at . Patient said she will call back in April. She has to figure out transportation. 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 FLU VACCINE 2010-(3 YR+)(PF) 01/18/2016 16 - Unknown INFLUENZA VIRUS [...] Encounter Status:Closed by ANABELA BUSTAMANTE on 01/18/21 [facility] Vital Signs Date Time Vital Sign Value Performing Clinician Facility 05-15-2024 11:11-0400 Blood Pressure Location BRIGIDA GRAHAM [facility] 05-15-2024 11:11-0400 Diastolic blood pressure 67 mm[Hg] BRIGIDA GRAHAM [facility] 05-15-2024 11:11-0400 Heart rate 69 /min BRIGIDA GRAHAM [facility] 05-15-2024 11:11-0400 Respiratory rate 19 /min BRIGIDA GRAHAM [facility] 05-15-2024 11:11-0400 Systolic blood pressure 126 mm[Hg] BRIGIDA GRAHAM [facility] 05-11-2024 16:06-0400 Body temperature 97.59 [degF] Micheal Peters MD Work Phone: [facility] [employer] 05-11-2024 16:06-0400 Diastolic blood pressure 77 mm[Hg] Micheal Peters MD Work Phone: [employer] 05-11-2024 16:06-0400 Heart rate 91 /min Micheal Peters MD Work Phone: [facility] [employer] 05-11-2024 16:06-0400 Respiratory rate 16 /min Micheal Peters MD Work Phone: [employer] 05-11-2024 16:06-0400 SaO2% (BldA) [Mass fraction] 97 % Micheal Peters MD Work Phone: [employer] 05-11-2024 16:06-0400 Systolic blood pressure 151 mm[Hg] Micheal Peters MD Work Phone: [employer] 05-08-2024 10:35-0400 Diastolic blood pressure 84 mm[Hg] Cinthia Vazquez MD Work Phone: [facility] 05-08-2024 10:35-0400 Systolic blood pressure 136 mm[Hg] Cinthia Vazquez MD Work Phone: [facility] 05-08-2024 10:190400 Body height 157.5 cm Cinthia Vazquez MD Work Phone: [facility] 05-08-2024 10:19-0400 Body mass index (BMI) [Ratio] 54.5 kg/m2 Cinthia Vazquez MD Work Phone: [facility] 05-08-2024 10:190400 Body weight 135.17 kg Cinthia Vazquez MD Work Phone: [facility] 05-08-2024 10:19040 Heart rate 65 /min Cinthia Vazquez MD Work Phone: [facility] 05-07-2024 09:01-0400 Body height 162.6 cm Micheal Peters MD Work Phone: [facility] 05-07-2024 09:01-0400 Body mass index (BMI) [Ratio] 48.06 kg/m2 Micheal Peters MD Work Phone: [facility] 05-07-2024 09:01-0400 Body weight 127.01 kg Micheal Peters MD Work Phone: [facility] 02-25-2024 11:15-0400 Body height 162.56 cm [facility] 02-25-2024 11:15-0400 Body temperature 96.9 [degF] [facility] 02-25-2024 11:15-0400 Diastolic blood pressure 79 mm[Hg] [facility] 02-25-2024 11:15-0400 Heart rate 61 /min [facility] 02-25-2024 11:15-0400 Respiratory rate 16 /min [facility] 02-25-2024 11:15-0400 SaO2% (BldA) [Mass fraction] 99 % [facility] 02-25-2024 11:15-0400 Systolic blood pressure 141 mm[Hg] [facility] 01-09-2024 11:49-0500 Body height 157.5 cm Cinthia Vazquez MD Work Phone: [facility] 01-09-2024 11:49-0500 Body mass index (BMI) [Ratio] 53.04 kg/m2 Cinthia Vazquez MD Work Phone: [facility] 01-09-2024 11:49-0500 Body weight 131.54 kg Cinthia Vazquez MD Work Phone: [facility] 01-09-2024 11:49-0500 Diastolic blood pressure 80 mm[Hg] Cinthia Vazquez MD Work Phone: [facility] 01-09-2024 11:49-0500 Heart rate 64 /min Cinthia Vazquez MD Work Phone: [facility] 01-09-2024 11:49-0500 Systolic blood pressure 136 mm[Hg] Cinthia Vazquez MD Work Phone: [facility] 11-21-2023 10:16-0500 Blood Pressure Location BRIGIDA GRAHAM [facility] 11-21-2023 10:16-0500 Diastolic blood pressure 84 mm[Hg] BRIGIDA GRAHAM [facility] 11-21-2023 10:16-0500 Systolic blood pressure 138 mm[Hg] BRIGIDA GRAHAM [facility] 07-02-2023 14:20-0400 Body height 162.56 cm Chip Craft Other [employer] [facility] [employer] Other 07-02-2023 14:20-0400 Body temperature 96.7 [degF] Chip Craft Other [employer] Other 07-02-2023 14:20-0400 Diastolic blood pressure 79 mm[Hg] Chip Craft Other [employer] Other 07-02-2023 14:20-0400 Respiratory rate 18 /min Chip Craft Other [employer] Other 07-02-2023 14:20-0400 SaO2% (BldA) [Mass fraction] 98 % Chip Craft Other [employer] Other 07-02-2023 14:20-0400 Systolic blood pressure 155 mm[Hg] [employer] Other [employer] Other 04-04-2023 11:33-0400 Body height 160.02 cm Dusty Quintanillaight Work Phone: [facility] 600 DO Work Phone: 04-04-2023 11:33-0400 Body mass index (BMI) [Ratio] 52.97 kg/m2 Dusty Quintanillaight Work Phone: [facility] [employer] 600 DO Work Phone: 04-04-2023 11:33-0400 Body surface area Derived from formula 2.29 m2 Dusty Walters Work Phone[facility] [employer] 600 DO Work Phone: 04-04-2023 11:33-0400 Body weight 135.63 kg Dusty Walters Work Phone[facility] [employer] 600 DO Work Phone: 04-04-2023 11:33-0400 Diastolic blood pressure 70 mm[Hg] Dusty Walters Work Phone: [facility] 600 DO Work Phone: 04-04-2023 11:33-0400 Heart rate 72 /min Dusty Walters Work Phone: [facility] 600 DO Work Phone: 04-04-2023 11:33-0400 Systolic blood pressure 110 mm[Hg] Dusty Walters Work Phone: [facility] 600 DO Work Phone: 11-20-2022 10:30-0500 Body height 162.56 cm Lizandro Eliezer Other [employer] Other 10-30-2022 16:20-0500 Body height 162.56 cm Aziz BakInnovEcos Other [employer] Other 10-30-2022 16:20-0500 Diastolic blood pressure 84 mm[Hg] Aziz Bakhous Other [employer] Other 10-30-2022 16:20-0500 SaO2% (BldA) [Mass fraction] 98 % Aziz Bakhous Other [employer] Other 10-30-2022 16:20-0500 Systolic blood pressure 128 mm[Hg] Aziz Bakhous Other [employer] Other 05-15-2022 14:20-0400 Body height 162.56 cm Aziz Bakhous Other [employer] Other 05-15-2022 14:20-0400 Body temperature 97 [degF] Aziz Bakhous Other [employer] Other 05-15-2022 14:20-0400 Diastolic blood pressure 70 mm[Hg] Aziz Bakhous Other [facility] [employer] Other 05-15-2022 14:20-0400 Respiratory rate 18 /min Chip Craft Other [facility] [employer] Other 05-15-2022 14:20-0400 SaO2% (BldA) [Mass fraction] 97 % Chip Craft Other [facility] [employer] Other 05-15-2022 14:20-0400 Systolic blood pressure 120 mm[Hg] Chip Craft Other [facility] [employer] Other 03-12-2022 13:25-0400 Body height 160.02 cm Dusty Seals Walters Work Phone: [facility] 250 DO Work Phone: 03-12-2022 13:25-0400 Body mass index (BMI) [Ratio] 51.02 kg/m2 Dusty Bozena Walters Work Phone: [facility] 250 DO Work Phone: 03-12-2022 13:25-0400 Body surface area Derived from formula 2.26 m2 Dusty Seals Walters Work Phone: [facility] 250 DO Work Phone: 03-12-2022 13:25-0400 Body weight 130.64 kg Dusty Quintanillaight Work Phone: [facility] 250 DO Work Phone: 03-12-2022 13:25-0400 Diastolic blood pressure 78 mm[Hg] Dusty Quintanillaight Work Phone: [facility] 250 DO Work Phone: 03-12-2022 13:25-0400 Heart rate 70 /min Dusty Walters Work Phone: [facility] 250 DO Work Phone: 03-12-2022 13:25-0400 Systolic blood pressure 102 mm[Hg] Dusty Walters Work Phone: [facility] 250 DO Work Phone: Encounters Encounter Date Encounter Type Care Provider Facility Start: 05-03-2025 [facility]ulatory [facility] Start: 12-03-2024 ambulatory Jose Snow Facility :[facility] Start: 07-15-2024 ambulatory Joe BOOTH Facility :[facility] Start: 05-27-2024 ambulatory DENTAL COORDINATOR Mariangel Col[facility] Start: 05-15-2024 End: 05-15-2024 ambulatory PA-C BRIGIDA GRAHAM Facility:[facility] Start: 05-15-2024 End: 05-15-2024 Patient encounter procedure BRIGIDA GRAHAM [facility] Start: 05-11-2024 End: 05-11-2024 ambulatory MICHEAL PETERS [facility] Start: 05-11-2024 End: 05-11-2024 Subsequent hospital visit by physician Micheal Peters MD Work Phone: [facility] Start: 05-08-2024 End: 05-08-2024 Office outpatient visit 25 minutes Cinthia Vazquez MD Work Phone: [facility] Comment on above: 2-vessel coronary ar wade disease (Primary Dx); Essential hypertension; Mixed hyperlipidemia; Post PTCA; Preop cardiovascular exam; Stage 3 chronic kidney disease, unspecified whether stage 3a or 3b CKD (Multi); Type 2 diabetes mellitus with stage 3 chronic kidney disease, without long-term current use of insulin, unspecified whether stage 3a or 3b CKD (Multi); Morbid obesity (Multi) Start: 05-08-2024 End: 05-08-2024 Patient encounter status Cinthia Vazquez MD Work Phone: [facility] Work Phone: Start: 05-08-2024 End: 05-08-[address] [facility] Amb[facility] Start: 05-08-2024 End: 05-08-2024 Encounter for preprocedural cardiovascular examination [facility] Start: 04-28-2024 End: 04-28-2024 ambulatory Jose Snow Facility:[facility] Start: 04-28-2024 End: 04-28-2024 ambulatory Jose Snow Facility:[facility] Start: 03-30-2024 End: 03-30-2024 ambulatory Joe BOOTH [facility] Start: 03-30-2024 End: 03-30-2024 Patient encounter procedure Joe BOOTH [facility] Start: 03-03-2024 End: 03-03-2024 ambulatory PA-C [facility]IDA [facility] Start: 03-03-2024 End: 03-03-2024 Patient encounter procedure BRIGIDA GRAHAM [facility] Start: 02-27-2024 ambulatory PA-C BRIGIDA GRAHAM Facility:[facility] [place] Start: 02-25-2024 End: 02-25-2024 ambulatory [facility] Work Phone: Start: 02-25-2024 End: 02-25-2024 Patient encounter procedure [facility] Work Phone: Start: 02-25-2024 End: 02-25-2024 ambulatory ARNULFO ZHU [facility] Start: 02-25-2024 End: 02-25-2024 Patient encounter procedure ARNULFO ZHU [facility] Start: 02-24-2024 Non-patient / [facility]-visit [facility] Work Phone: Start: 02-24-2024 End: 02-24-2024 ambulatory Jose Snow Facility:[facility] Start: 02-04-2024 End: 02-04-2024 ambulatory TYC BRIGIDA GRAHAM Facility:[facility] Start: 01-09-2024 End: 01-09-[address] [facility] Ambulatory Start: 01-09-2024 End: 01-09-2024 Office outpatient visit 15 minutes Cinthia Baez Work Phone: [facility] Comment on above: 2-vessel coronary ar wade disease (Primary Dx); Essential hypertension; Mixed hyperlipidemia; H/O non-ST elevation myocardial infarction (NSTEMI); Post PTCA; Morbid obesity ([facility]/HCC) Start: 12-23-2023 End: 12-23-2023 ambulatory Joe BOOTH [facility] Start: 12-23-2023 End: 12-23-2023 Patient encounter procedure Joe BOOTH [facility] Start: 12-16-2023 End: 12-16-2023 ambulatory DENTAL COORDINATOR Mariangel Campbell Facility:[facility] Start: 11-21-2023 End: 11-21-2023 ambulatory DONELL-C BRIGIDA GRAHAM Facility:[facility] [place] Start: 11-21-2023 End: 11-21-2023 Patient encounter procedure BRIGIDA GRAHAM [facility] [place] Start: 11-20-2023 End: 11-20-2023 ambulatory Jose Snow Facility:[facility] Start: 10-23-2023 ambulatory Magui Sam Facility:[facility] [place] Start: 10-01-2023 End: 10-01-2023 ambulatory Jose Snow [facility] Start: 10-01-2023 End: 10-01-2023 Patient encounter procedure Jose Sid Snow [facility] Start: 09-09-2023 End: 09-09-2023 ambulatory Jose Snow Facility:[facility] Start: 07-31-2023 End: 07-31-2023 ambulatory Anjana Pal Other [employer] Other Start: 07-31-2023 Telephone encounter Anjana Pal [facility] Start: 07-28-2023 End: 07-28-2023 ambulatory MD Dusty Walters Work Phone: [facility] Work Phone: Start: 07-28-2023 End: 07-28-2023 Departed Referred MD Dusty Walters Work Phone: [facility] [place] Work Phone: Start: 07-15-2023 End: 07-15-2023 ambulatory DENTAL COORDINATOR Mariangel Campbell Facility:[facility] Start: 07-05-2023 Telephone encounter Tanikadanyel Moranr [facility] Start: 07-05-2023 End: 07-05-2023 ambulatory Tanika John Other [employer] Other Start: 07-02-2023 End: 07-02-2023 ambulatory Aziz Bakhous Other [employer] Other Start: 07-02-2023 Office outpatient vi sit 25 minutes Aziz Baklillianas [facility] Start: 07-01-2023 Office outpatient vi sit 25 minutes Brigida George [facility] Start: 07-01-2023 End: 07-01-2023 ambulatory MD Dusty Walters Work Phone: [facility] Work Phone: Start: 07-01-2023 End: 07-01-2023 Patient encounter procedure MD Dusty Walters Work Phone: [facility] Start: 06-28-2023 End: 06-28-2023 ambulatory Chip Craft Other [employer] Other Start: 06-28-2023 Telephone encounter Chip Craft [facility] Start: 05-16-2023 End: 05-16-2023 Lab Drop off Mariangel Campbell [facility] Start: 05-01-2023 ambulatory AJ YOUNG Facility:[facility] Start: 04-04-2023 Office outpatient vi sit 25 minutes Dusty Walters Work Phone: [facility] 600 DO Work Phone: Start: 04-04-[address] Dusty Walters Facility: Start: 01-24-2023 End: 01-24-2023 ambulatory CONNER GERMAN . Facility:[facility] Start: 01-18-2023 End: 01-19-2023 ambulatory AJ YOUNG Facility:[facility] Start: 12-26-2022 End: 12-26-[address] DUSTY WALTERS . Facility:[facility] Start: 12-18-2022 End: 12-18-2022 ambulatory Lizandro Martins Other [employer] Other Start: 12-18-2022 Office outpatient vi sit 15 minutes Lizandro Martins [facility] Start: 12-17-2022 End: 12-17-[address] DUSTY WALTERS . Facility:[facility] Start: 11-20-2022 End: 11-20-2022 ambulatory Lizandro Martins Other [employer] Other Start: 11-20-2022 FQHC visit new patient Lizandro Martins [facility] Start: 11-17-2022 End: 11-17-[address] DUSTY WALTERS . Facility:[facility] Start: 11-09-2022 End: 11-10-[address] DUSTY WALTERS . Facility:[facility] Start: 11-09-2022 End: 11-10-[address] DUSTY WALTERS . Facility:[facility] Start: 10-30-2022 End: 10-30-2022 ambulatory Chip Craft Other [employer] Other Start: 10-30-2022 Office outpatient vi sit 15 minutes Chip Craft [facility] Start: 10-11-2022 End: 10-12-[address] DUSTY WALTERS . Facility:[facility] Start: 09-15-2022 End: [address] DUSTY WALTERS . Facility:[facility] Start: 08-30-2022 End: 08-31-[address] DOCTOR GALEANA Facility:[facility] Start: 08-27-2022 End: 08-28-[address] DUSTY WALTERS . Facility:[facility] Start: 07-04-2022 End: 07-04-[address] DUSTY WALTERS . Facility:[facility] Start: 05-15-2022 End: 05-15-2022 ambulatory Chip Craft Other [employer] Other Start: 05-15-2022 Office outpatient ne w 30 minutes Chip Craft [facility] Start: 03-12-2022 Office outpatient vi sit 25 minutes Dusty Walters Work Phone: [facility] 250 DO Work Phone: Procedures Date Procedure Procedure Detail Performing Clinician Start: 05-11-2024 Gluc bld gluc mntr d ev cleared fda spec home use Micheal Peters MD Work Phone: Start: 05-08-2024 Ecg routine ecg w/le ast 12 lds w/i&r Cinthia Vazquez MD Work Phone: Start: 12-23-2023 Cystourethroscopy wi th dilation of urethral stricture Jose Snow Start: 07-31-2023 Plain X-ray of left shoulder MD Dusty Walters Work Phone: Arthroplasty of knee Dusty chase Work Phone: Cardiac catheterization Dusty Walters Work Phone: Cardiac catheterization Jose R Snow Comment on above: 2017 2 stents, 2019 3 stents Cataract (disorder) Jose collazo Comment on above: 08/2021 Colonoscopy BRIGIDA GAMINGRY History of arthropla sty of left knee [...] bilateral salpingo-oophorectomy Jose Snow Total colonoscopy Dusty Du Work Phone: Plan of Treatment Date Care Activity Detail Author Start: 01-05-2025 End: 01-05-2025 Patient encounter procedure 01/05/2025 9:50 AM EST Office Visit [facility] [address] [place] [address] Cinthia Vazquez MD [address] [facility] [address] [place] [address] [facility] Start: 08-02-2024 Influenza vaccination Influenz a Vaccine (Season Ended) [facility] Start: 05-11-2024 End: 05-11-2024 Vitrectomy pars plana remove preretinal membrane EYE VITRECTOMY Macular puckering, left eye 05/11/2024 2:42 PM EDT [facility] Samina Stallworthman Start: 01-07-2024 FUV, Provider: Cinthia Vazquez, Status: Pen, Time: 11:00 AM FUV, Provider: Cinthia Vazquez, Status: Pen, Time: 11:00 AM [facility] 600 DO Work Phone: Start: 08-02-2023 COVID-19 Vaccine ( season) COVID-19 Vaccine ( season) [facility] Start: 08-02-2023 Influenza vaccination Influenza Vacc ine (#1) [facility] Start: 07-28-2023 Bacteria identified in Urine by Culture Urine Culture [facility] Start: 12-11-2022 FUV, Provider: Cinthia Vazquez, Status: Pen, Time: 10:30 AM FUV, Provider: Cinthia Vazquez, Status: Pen, Time: 10:30 AM [facility] 250 DO Work Phone: Start: 07-05-2022 Glaucoma screening Diabetes: R etinopathy Screening [facility] Start: 12-02-2021 Pneumococcal Vaccine : 65+ Years (3 - PPSV23 or PCV20) Pneumococcal Vaccine: 65+ Years (3 - PPSV23 or PCV20) [facility] Start: 12-02-2021 Pneumococcal Vaccine : 65+ Years (3 of 3 - PPSV23 or PCV20) Pneumococcal Vaccine: 65+ Years (3 of 3 - PPSV23 or PCV20) [facility] Start: 2013 Respiratory Syncytia l Virus (RSV) or age 60 yrs+ (1 - 1-dose 60+ series) Respiratory Syncytial Virus (RSV) or age 60 yrs+ (1 - 1-dose 60+ series) [facility] Start: 2013 RSV patient s and/or patients aged 60+ years (1 - 1-dose 60+ series) RSV patients and/or patients aged 60+ years (1 - 1-dose 60+ series) [facility] Start: 2003 Zoster Vaccines (1 o f 2) Zoster Vaccines (1 of 2) [facility] Start: 1993 Screening for malign ant neoplasm of breast Mammogram [facility] Start: 1975 DTaP/Tdap/Td Vaccine s (1 - Tdap) DTaP/Tdap/Td Vaccines (1 - Tdap) [facility] Start: 1972 DTaP/Tdap/Td vaccine (1 - Tdap) DTaP/Tdap/Td vaccine (1 - Tdap) [facility] Start: 1972 Urine screening for protein Diabetes: Urine Protein Screening [facility] Start: 1971 Hepatitis C screening Hepatitis C Sc reening [facility] Start: 1963 Diabetic foot examination Diabetes: Foot Exam [facility] Start: 03-17-1954 COVID-19 Vaccine (#1) COVID-19 Vacci ne (#1) [facility] [employer] Start: 1953 Hemoglobin A1c measurement Diabetes: Hemoglobin A1C [facility] Start: 1953 Lipid panel Lipid Panel [facility] Start: 1953 Medicare Annual Wellness Visit Medicare Annual Wellness Visit (AWV) [facility] Start: 1953 Screening for malign ant neoplasm of colon [facility] Start: 1953 Screening for osteoporosis Bone Density Scan [facility] End: 05-11-2024 Glucose [Mass/volume] in Serum or Plasma POCT Glucose Point of Care Testing Routine One Time for 1 Occurrences starting 05/11/2024 until 05/11/2024 [facility]: Comment on above: One Time for 1 Occur rences starting 05/11/2024 until 05/11/2024 Immunizations Immunization Date Immunization Notes Care Provider Sharad mota 09-13-2022 SARS-CoV-2 (COVID-19 ) [id number] Mariangel Campbell [facility] 01-13-2022 Moderna COVID-19 Vac cine 100 MCG/0.5ML Intramuscular Suspension Dusty Bozena Selena Work Phone: [facility] Comment on above: Result Comment: 2022: [id number] 08-09-2021 Moderna COVID-19 Vac cine 100 MCG/0.5ML Intramuscular Suspension Dusty Bozena Selena Work Phone: [facility] 07-12-2021 Moderna COVID-19 Vac cine 100 MCG/0.5ML Intramuscular Suspension Dusty Bozena Selena Work Phone: [facility] 12-02-2016 pneumococcal polysaccharide vaccine, 23 valent Dusty Seals Selena Work Phone: -[facility] DO Work Phone: 10-18-2016 pneumococcal conjuga te vaccine, 13 valent Dusty Seals Selena Work Phone: [facility] Payers Date Payer Category Payer Unknown [id number] 2023 Self-pay [id number] 2022 Medicare [id number] 2018 Medicare [id number] 5 1959 Medicare [id number] 2.1 6.840.1.168873.19 1959 Unknown [id number] 2.1 6.840.1.175668.19 1953 Unknown [id number] 2.16. 840.1.639662.3.579.2.356 1953 Unknown [id number] 2.16.84 0.1.897254.3.579.2.593 1953 Unknown [id number] 2.16.84 0.1.494497.3.579.2.593 1953 Unknown [id number] 2.16.84 0.1.346886.3.579.2.593 1953 Unknown [id number] 2.16.84 0.1.280164.3.579.2.593 1953 Unknown [id number] 2.16.84 0.1.479654.3.579.2.593 1953 Unknown [id number] 2.16.84 0.1.745459.3.579.2.593 1953 Unknown [id number] 2.16.84 0.1.222130.3.579.2.593 1953 Unknown [id number] 2.16.84 0.1.549035.3.579.2.593 1953 Unknown [id number] 2.16.84 0.1.482561.3.579.2.593 1953 Unknown [id number] 2.16.84 0.1.873963.3.579.2.593 1953 Unknown [id number] 2.16.84 0.1.833141.3.579.2.593 1953 Unknown [id number] 2.16.84 0.1.756614.3.579.2.593 1953 Unknown [id number] 2.16.84 0.1.470388.3.579.2.593 1953 Unknown [id number] 2.16.8 40.1.166119.3.579.2.1244 1953 Unknown [id number] 2.16.8 40.1.196564.3.579.2.1244 1953 Unknown [id number] 2.16. 840.1.274675.3.579.2.204 1953 Unknown [id number] 2.16.8 40.1.390894.3.579.2.727 1953 Unknown [id number] 2.16.8 40.1.928163.3.579.2.727 1953 Unknown [id number] 2.16.8 40.1.381094.3.579.2.727 1953 Unknown [id number] 2.16.8 40.1.376282.3.579.2.727 1953 Unknown [id number] 2.16.8 40.1.167304.3.579.2.727 1953 Unknown [id number] 2.16.8 40.1.935473.3.579.2.727 1953 Unknown [id number] 2.16.8 40.1.142146.3.579.2.72 1953 Unknown [id number] 2.16.8 40.1.284441.3.579.2.727 1953 Unknown [id number] 2.16.8 40.1.690476.3.579.2.727 1953 Unknown [id number] 2.16.8 40.1.205574.3.579.2.727 1953 Unknown [id number] 2.16.8 40.1.995051.3.579.2.727 1953 Unknown [id number] 2.16.8 40.1.917468.3.579.2.727 1953 Unknown [id number] 2.16.8 40.1.478550.3.579.2.727 1953 Unknown [id number] 2.16.8 40.1.463371.3.579.2.727 1953 Unknown [id number] 2.16.8 40.1.587698.3.579.2.727 1953 Unknown [id number] 2.16.8 40.1.594900.3.579.2.727 1953 Unknown [id number] 2.16.8 40.1.274872.3.579.2.72 1953 Unknown [id number] 2.16.8 40.1.255626.3.579.2.727 1953 Unknown [id number] 2.16.8 40.1.464984.3.579.2.727 1953 Unknown [id number] 2.16.8 40.1.162568.3.579.2.727 1953 Unknown [id number] 2.16.8 40.1.566230.3.579.2.727 1953 Unknown [id number] 2.16.8 40.1.270595.3.579.2.727 Medicaid [place] [employer] [id number] Unknown Unknown [id number] 2.16.8 40.1.718820.3.579.2.531 Unknown [id number] 2.16.8 40.1.671311.3.579.2.531 Social History Date Type Detail Facility Start: 12-16-2023 End: 05-07-2024 No alcohol use No alcohol use [facility] [facility] DO Work Phone: Comment on above: 2 CUPS OF ICED TEA D AILY; Start: 12-16-2023 End: 05-07-2024 Sex Assigned At [facility] Start: 05-16-2023 End: 05-15-2024 Tobacco smoking status Never smoked tobacco (finding) [facility] Tobacco smoking status Never [facility] Start: 1955 Sex Assigned At Female F [facility] Start: 01-09-2024 End: 05-08-2024 Alcohol intake Lifetime non-drinker (finding) [facility] Work Phone: Start: 1955 Sex Assigned At Not on file U [facility] Work Phone: Start: 12-30-2023 End: 05-08-2024 Exposure to SARS-CoV-2 (event) Not sure [facility] Start: 05-08-2024 Tobacco use and exposure Smokeless tobacco non-user [facility] Work Phone: Start: 05-07-2024 Tobacco smoking status NHIS Tobacco smoking consumption unknown [facility] Start: 05-11-2024 Alcohol intake Ex-drinker (finding) [facility] Medical Equipment Procedure Code Equipment Code Equipment [...] PERSONA LEFT SIZE D FDA Start: 03-30-2019 [facility] DME Prescri ption, See Instructions, 300 pen needle(s), 3, BD ultra fine pen needles 31G X 3/16. Use to inject insulin as directed. [facility] E10.42, [facility] Start: 02-19-2023 CL STENT AURORA 3.0 X 18 FDA Start: 06-29-2018 CL STENT AURORA 3.5 X 15 FDA Start: 06-29-2018 [id number] FDA Start: 04-18-2020 Drug-eluting cor onary artery stent, [id number]-[id number]-cbmk larry-coated ()[id number] FDA Start: 04-18-2020 Drug-eluting cor onary artery stent, oqy-cphfqekwnejqv-qmhb larry-coated ()[id number] FDA Start: 04-18-2020 CL STENT AURORA 3.0 X 18 FDA Start: 06-29-2018 CL STENT AURORA 3.5 X 15 FDA Start: 06-29-2018 [id number] FDA Start: 04-18-2020 [facility] DME Prescri ption, See Instructions, 300 pen needle(s), 3, BD ultra fine pen needles 31G X 3/16. Use to inject insulin as directed. D[facility] E10.42, [facility] Start: 02-19-2023 [facility] DME Prescri ption, See Instructions, 300 pen needle(s), 3, BD ultra fine pen needles 31G X 3/16. Use to inject insulin as directed. Dx E10.42, [facility], Supply Start: 02-19-2023 [facility] DME Prescri ption, See Instructions, 300 pen needle(s), 3, BD ultra fine pen needles 31G X 3/16. Use to inject insulin as directed. Dx E10.42, [facility], Supply Start: 02-19-2023 CL STENT AURORA 3.0 X 18 FDA Start: 06-29-2018 CL STENT AURORA 3.5 X 15 FDA Start: 06-29-2018 [id number] FDA Start: 04-18-2020 [facility] DME Prescri ption, See Instructions, 300 pen needle(s), 3, BD ultra fine pen needles 31G X 3/16. Use to inject insulin as directed. Dx E10.42, [facility], Supply Start: 02-19-2023 [facility] DME Prescri ption, See Instructions, 300 pen needle(s), 3, BD ultra fine pen needles 31G X 3/16. Use to inject insulin as directed. Dx E10.42, [facility], Supply Start: 02-19-2023 [facility] DME Prescri ption, See Instructions, 300 pen needle(s), 3, BD ultra fine pen needles 31G X 3/16. Use to inject insulin as directed. Dx E10.42, [facility], Supply Start: 02-19-2023 [facility] DME Prescri ption, See Instructions, 300 pen needle(s), 3, BD ultra fine pen needles 31G X 3/16. Use to inject insulin as directed. Dx E10.42, [facility], Supply Start: 02-19-2023 [facility] DME Prescri ption, See Instructions, 300 pen needle(s), 3, BD ultra fine pen needles 31G X 3/16. Use to inject insulin as directed. Dx E10.42, [facility], Supply Start: 02-19-2023 Functional Status Date Assessment Result Facility 05-15-2024 Functional Status N/A [facility] 03-30-2024 Functional Status N/A [facility] 12-23-2023 Functional Status N/A [facility] 11-21-2023 Functional Status N/A [facility] Caity Clinical Notes 06-01-2018 to 05-15-2024 Katja Rodriguez, RN - 05/08/2024 10:23 AM Jacquelyn Gibson RN - 05/07/2024 9:39 AM Jacquelyn Gibson RN - 05/07/2024 9:14 AM Jacquelyn Gibson RN - 05/07/2024 9:10 AM EDT Note Date & Type Note Facility 05-15-2024 Hospital Discharge instructions Patient Education 05/15/2024 11:44:43 Overactive Bladder, Adult Overactive Bladder, Adult Overactive bladder is a [...] be caused by other factors, such as: Medical conditions: ?Urinary tract infection. ?Infection of nearby tissues. ?Prostate enlargement. ?Bladder stones, inflammation, or tumors. ?Diabetes. ?Muscle or nerve weakness, especially from these conditions: ?A spinal cord injury. ?Stroke. ?Multiple sclerosis. ?Parkinson's disease. Other causes: ?Surgery on the uterus or urethra. ?Drinking too much caffeine or alcohol. ?Certain medicines, especially those that eliminate extra fluid in the body (diuretics). ?Constipation. What increases the risk? You may be at greater risk for overactive bladder if you: Are an older adult. Smoke. Are going through menopause. Have prostate problems. Have a neurological disease, such as stroke, dementia, Parkinson's disease, or multiple sclerosis (MS). Eat or drink alcohol, spicy food, caffeine, and other things that irritate the bladder. Are overweight or obese. What are the signs or symptoms? Symptoms of this condition include a sudden, strong urge to urinate. Other symptoms include: Leaking urine. Urinating 8 or more times a day. Waking up to urinate 2 or more times overnight. How is this diagnosed? This condition may be diagnosed based on: Your symptoms and medical history. A physical exam. Blood or urine tests to check for possible causes, such as infection. You may also need to see a health care provider who specializes in urinary tract problems. This is called a urologist. How is this treated? Treatment for overactive bladder depends on the cause of your condition and whether it is mild or severe. Treatment may include: Bladder training, such as: ?Learning to control the urge to urinate by following a schedule to urinate at regular intervals. ?Doing Kegel exercises to strengthen the pelvic floor muscles that support your bladder. Special devices, such as: ?Biofeedback. This uses sensors to help you become aware of your body's signals. ?Electrical stimulation. This uses electrodes placed inside the body (implanted) or outside the body. These electrodes send gentle pulses of electricity to strengthen the nerves or muscles that control the bladder. ?Women may use a plastic device, called a pessary, that fits into the vagina and supports the bladder. Medicines, such as: ?Antibiotics to treat bladder infection. ?Antispasmodics to stop the bladder from releasing urine at the wrong time. ?Tricyclic antidepressants to relax bladder muscles. ?Injections of botulinum toxin type A directly into the bladder tissue to relax bladder muscles. Surgery, such as: ?A device may be implanted to help manage the nerve signals that control urination. ?An electrode may be implanted to stimulate electrical signals in the bladder. ?A procedure may be done to change the shape of the bladder. This is done only in very severe cases. Follow these instructions at home: Eating and drinking Make diet or lifestyle changes recommended by your health care provider. These may include: ?Drinking fluids throughout the day and not only with meals. ?Cutting down on caffeine or alcohol. ?Eating a healthy and balanced diet to prevent constipation. This may include: ?Choosing foods that are high in fiber, such as beans, whole grains, and fresh fruits and vegetables. ?Limiting foods that are high in fat and processed sugars, such as fried and sweet foods. Lifestyle Lose weight if needed. Do not use any products that contain nicotine or tobacco. These include cigarettes, chewing tobacco, and vaping devices, such as e-cigarettes. If you need help quitting, ask your health care provider. General instructions Take nwds-lbe-avhinnc and prescription medicines only as told by your health care provider. If you were prescribed an antibiotic medicine, take it as told by your health care provider. Do not stop taking the antibiotic even if you start to feel better. Use any implants or pessary as told by your health care provider. If needed, wear pads to absorb urine leakage. Keep a log to track how much and when you drink, and when you need to urinate. This will help your health care provider monitor your condition. Keep all follow-up visits. This is important. Contact a health care provider if: You have a fever or chills. Your symptoms do not get better with treatment. Your pain and discomfort get worse. You have more frequent urges to urinate. Get help right away if: You are not able to control your bladder. Summary Overactive bladder refers to a condition in which a person has a sudden and frequent need to urinate. Several conditions may lead to an overactive bladder. Treatment for overactive bladder depends on the cause and severity of your condition. Making lifestyle changes, doing Kegel exercises, keeping a log, and taking medicines can help with this condition. This information is not intended to replace advice given to you by your health care provider. Make sure you discuss any questions you have with your health care provider. Document Revised: 08/07/2021 Document Reviewed: 08/07/2021 [employer] Patient Education 2022 [employer]. Follow Up Care 03/30/2024 15:10:22 With:EMMY JUDGE, Joe Guerra, URL Address: [address] [place], [place] [id number]- When:Within 3 Month(s) [facility] 05-08-2024 History of Present illness Narrative Spoke with Domonique at [facility] to notify need of H/P for OR scheduled 05/11/24. Spoke with patients daughter, Amena, patient has appointment with chips screen tender on 05/08/24. Requested office notes to be faxed to [facility]. Patient is a resident at [facility] telephone assessment completed with Tawanna Bowling LPN. A&O: YES Code Status: DNR-CC Ambulatory: YES Oxygen: NO Hard of Hearing: NO Call light: YES Signs Documents? NO POA: AMENA SR - DAUGHTER - WILL ACCOMPANY DOS Transport: [facility] Wounds: NONE Isolation: N/A Lines/Drains/Implanted devices: NONE Verified arrival time of 1030 with facility. General instructions and medication instructions faxed to facility. [facility] PRE-ADMISSION TESTING INSTRUCTIONS The Preadmission Testing patient is instructed accordingly using the following criteria (check applicable): ARRIVAL INSTRUCTIONS: [x] Parking the day of Surgery is located in the Main Entrance lot. Upon entering the door, make an immediate right to the surgery passenger elevator operator desk [x] Bring photo ID and insurance card [x] Bring in a copy of Living will or Durable Power of Ethylbenzene Converter Operator papers. [x] Please be sure to arrange for a responsible adult to provide transportation to and from the hospital [x] Please arrange for a responsible adult to be with you for the 24 hour period post procedure due to having anesthesia [x] If you awake am of surgery not feeling well or have temperature >100 please call [phone] GENERAL INSTRUCTIONS: [x] No solid foods after midnight, may have up to 8oz of water until 4 hours prior to surgery. No gum, no candy, no mints. NPO time: 0900 [x] You may brush your teeth, do not swallow any toothpaste [x] Take medications as instructed [x] Stop herbal supplements and vitamins 5 days prior to procedure [x] Follow preop dosing of blood thinners per physician instructions [x] Take 1/2 dose of evening insulin, but no insulin after midnight [x] No oral diabetic medications after midnight [x] If diabetic and have low blood sugar or feel symptomatic, take 1-2oz apple juice only [x] Shower or bath with soap, lather and rinse well, AM of Surgery, no lotion, powders or creams to surgical site [x] No tobacco products within 24 hours of surgery [x] No alcohol or illegal drug use, marijuana included, within 24 hours of surgery. [x] Jewelry, body piercing's, eyeglasses, contact lenses and dentures are not permitted into surgery (bring cases) [x] Please do not wear any nail guyanese, make up or hair products on the day of surgery [x] You can expect a call the day prior to procedure to notify you if your arrival time changes [x] If you receive a survey after surgery we would greatly appreciate your comments [x] A caregiver or family member must remain with the patient during their stay if they are mentally handicapped, have dementia, disoriented or unable to use a call light or would be a safety concern if left unattended [x] Please notify surgeon if you develop any illness between now and time of surgery (cold, cough, sore throat, fever, nausea, vomiting) or any signs of infections including skin, wounds, and dental. [x] The Outpatient Pharmacy is available to fill your prescription here on your day of surgery, ask your preop nurse for details [x] Other instructions: ARRIVAL TIME 1030 documented in this encounter [facility] 05-08-2024 History of Present illness Narrative Subjective Malcom Knowles is a 68 y.o. female Chief Complaint Follow-up HPI Patient is here for follow-up and continue management for coronary disease and for preoperative risk assessment for eye surgery. Since last time I saw her she denies any cardiac complaint but admits to sedentary lifestyle. She denies lightheadedness, dizziness or syncope. Her EKG today showing sinus rhythm with old inferior wall myocardial infarction unchanged from before. The patient has no change in cardiac status or symptoms but difficult to determine her functional status due to her morbid obesity. She is currently living in a assisted living. Reviewing her medication her profile it seems like her lisinopril was discontinued at 1 point of time for reason unclear to me. Assessment 1. Coronary artery disease, presentation with acute inferior STEMI in June 29, 2018, percutaneous coronary intervention to the mid RCA with subsequent PCI to the LAD back in 2019 . Patient is sedentary but no cardiac symptoms reported she is sedentary 2. Preoperative risk assessment for low risk eye surgery. This type of surgery is low risk and the patient can proceed. I gave her the permission to hold Plavix prior to surgery 3. Normal left ventricular ejection fraction. 4. diabetes mellitus. 5. Hyperlipidemia controlled 6. hypertension controlled 7. Continued complaint of gait disturbance being evaluated by neurology and there is some discussion about dementia versus normal pressure hydrocephalus 8. Morbid obesity 9. Stage III chronic kidney disease Plan 1. Patient will remain on current therapy addition of losartan 25 mg daily 2. Patient was counseled regarding losing weight, exercise and dietary modification 3. Reviewed her recent lab work 4. The patient can proceed with her eye surgery again as indicated above this is a low risk surgery and there is no contraindication to proceed. Patient was given permission to hold Plavix prior to surgery ROS Vitals: 05/08/24 1019 05/08/24 1035 BP: 159/78 136/84 BP Location: Right arm Right arm Patient Position: Sitting Sitting Pulse: 65 Weight: 135 kg (298 lb) Height: 1.575 m (5' 2 ) Encounter Date: 05/08/24 ECG 12 Lead Narrative Normal sinus rhythm with old inferior wall myocardial infarction Objective Physical Exam Constitutional: Appearance: Normal appearance. HENT: Nose: Nose normal. Neck: Vascular: No carotid bruit. Cardiovascular: Rate and Rhythm: Normal rate. Pulses: Normal pulses. Heart sounds: Normal heart sounds. Pulmonary: Effort: Pulmonary effort is normal. Abdominal: General: Bowel sounds are normal. Palpations: Abdomen is soft. Musculoskeletal: General: Normal range of motion. Cervical back: Normal range of motion. Right lower leg: No edema. Left lower leg: No edema. Skin: General: Skin is warm and dry. Neurological: General: No focal deficit present. Mental Status: She is alert. Psychiatric: Mood and Affect: Mood normal. Behavior: Behavior normal. Thought Content: Thought content normal. Judgment: Judgment normal. Allergies Flu medicine and Sulfa (sulfonamide antibiotics) Current Medications Current Outpatient Medications: acetaminophen (Tylenol) [...] 1 tablet once daily., Disp: , Rfl: brexpiprazole (Rexulti) 0.5 mg tablet, Take 1 tablet (0.5 mg) by mouth once daily., Disp: , Rfl: cetirizine (ZyrTEC) 10 mg tablet, Take 0.5 tablets (5 mg) by mouth once daily., Disp: , [...] by mouth once daily., Disp: , Rfl: glucosamine-chondroitin 500-400 mg tablet, Take 1 tablet by mouth 2 times a day., Disp: , Rfl: memantine (Namenda) 10 mg tablet, Take 1 tablet (10 mg) by mouth 2 times a day., Disp: , Rfl: multivitamin with minerals iron-free (Centrum Silver), Take 1 tablet by mouth once daily., Disp: , Rfl: [...] for nausea or vomiting., Disp: , Rfl: potassium chloride CR 20 mEq ER tablet, Take 1 tablet (20 mEq) by mouth once daily. Do not crush or chew., Disp: , Rfl: prednisoLONE acetate (Pred-Forte) 1 % ophthalmic suspension, 1 drop 4 times a day., Disp: , Rfl: saccharomyces boulardii (Florastor) 250 mg capsule, Take 1 capsule (250 mg) by mouth 2 times a day., Disp: , Rfl: semaglutide (OZEMPIC) 1 mg/dose (4 mg/3 mL) pen injector, Inject under the skin 1 (one) time per week., Disp: , Rfl: Trulicity 1.5 mg/0.5 mL pen injector injection, Inject 1.5 mg under the skin 1 (one) time per week., Disp: , Rfl: venlafaxine XR (Effexor-XR) 150 mg 24 hr capsule, Take 1 capsule (150 mg) by mouth once daily., Disp: , Rfl: vit C/E/Zn/coppr/lutein/zeaxan (PRESERVISION AREDS-2 ORAL), Take by mouth., Disp: , Rfl: losartan (Cozaar) 25 mg tablet, Take 1 tablet (25 mg) by mouth once daily., Disp: 90 tablet, Rfl: 3 Assessment/Plan 1. 2-vessel coronary artery disease losartan (Cozaar) 25 mg tablet 2. Essential hypertension 3. Mixed hyperlipidemia 4. Post PTCA 5. Preop cardiovascular exam ECG 12 Lead 6. Stage 3 chronic kidney disease, unspecified whether stage 3a or 3b CKD (Multi) 7. Type 2 diabetes mellitus with stage 3 chronic kidney disease, without long-term current use of insulin, unspecified whether stage 3a or 3b CKD (Multi) losartan (Cozaar) 25 mg tablet 8. Morbid obesity (Multi) Scribe Attestation By signing my name below, Deena Cheema LPN , Scribe attest that this documentation has been prepared under the direction and in the presence of Cinthia Vazquez MD. Provider Attestation - Scribe documentation All medical record entries made by the Scribe were at my direction and personally dictated by me. I have reviewed the chart and agree that the record accurately reflects my personal performance of the history, physical exam, discussion and plan. documented in this encounter [facility] Work Phone: 05-08-2024 Instructions Deena Ramon LPN - 05/08/2024 10:00 AM EDT Please bring all medicines, vitamins, and herbal supplements with you when you come to the office. Prescriptions will not be filled unless you are compliant with your follow up appointments or have a follow up appointment scheduled as per instruction of your physician. Refills should be requested at the time of your visit. Fall Prevention Education Given Malcom Knowles is clear for surgery from a cardiac standpoint documented in this encounter [facility] Work Phone: 03-30-2024 Hospital Discharge instructions Patient Education 03/30/2024 14:09:51 EU - Cystoscopy with Botox Injection Discharge Instructions (Custom) Cystoscopy with Botox injection Voiding after the procedure: there may be some pain, burning, urgency, frequency and blood tinged urine following the procedure. These symptoms usually resolve within 2-5 days. Drink the amount of fluid it takes to keep the urine pink to yellow or clear in color. Drinking enough water and fluids will help to ease any discomfort after your procedure. It may take a few days to a week to notice a gradual improvement in the overactive bladder symptoms. If you are having problems that seem out of the ordinary, please call. If unable to contact your physician and you feel it is an emergency, go to the nearest emergency room or call 911 Do not lift more than fifteen pounds for 1-2 days. If you see a lot of blood, you probably did too much. Diet you may resume your normal diet. Pain control You may take extra strength Tylenol or Motrin for discomfort. Call if you have a fever over 100 degrees. Follow Up Care 02/05/2024 12:31:18 With:BRIGIDA FARTUN Address: [address] [place] [address] Business (1) When:05/11/2024 14:10:19 Comments:Call for followup appointment, with a bladder scan to check on bladder emptying. [facility] 03-30-2024 Note [id number] [facility] 03-30-2024 Note Cystoscopy with Boto x injection ? Voiding after the procedure: there may be some pain, burning, urgency, frequency and blood tinged urine following the procedure. These symptoms usually resolve within 2-5 days. Drink the amount of fluid it takes to keep the urine pink to yellow or clear in color. Drinking enough water and fluids will help to ease any discomfort after your procedure. ? It may take a few days to a week to notice a gradual improvement in the overactive bladder symptoms. ? If you are having problems that seem out of the ordinary, please call. ? If unable to contact your physician and you feel it is an emergency, go to the nearest emergency room or call 911 ? Do not lift more than fifteen pounds for 1-2 days. If you see a lot of blood, you probably did too much. ? Diet ? you may resume your normal diet. ? Pain control ? You may take extra strength Tylenol or Motrin for discomfort. ? Call if you have a fever over 100 degrees. [facility] 01-09-2024 History of Present illness Narrative Subjective [...] Never a smoker Post PTCA (V45.82) (Z98.61) care home resident (V60.6) (Z59.3) Orders 2-vessel coronary artery disease Stop: Aspirin EC 81 MG TBEC Morbid obesity with BMI of 50.0-59.9, adult Healthy Weight Tips; Status:Complete - Retrospective Authorization; Done: 04Apr2023 Some eating tips that can help you lose weight.; Status:Complete - Retrospective Authorization; Done: [id number] SocHx: Never a smoker Tobacco Use Screening; [...] Scribe Attestation By signing my name below, Iirishrleticlmich , Scribe attest that this documentation has been prepared under the direction and in the presence of Cinthia Vazquez MD. documented in this encounter [facility] Work Phone: 01-09-2024 Instructions Nathaly Huffman LPN [...] up one year documented in this encounter [facility] Work Phone: 12-31-2023 Note Clinician was able t o reach out to daughter. 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 Was able to share the need for a SLUMS test from Neurology and to test for Alzheimer's and or Dementia due to grandmother having Alzheimer's. Gave information to reach out to [employer] Administrator if anything else is needed. [facility] 12-23-2023 Hospital Discharge instructions Patient Education [...] degrees Follow Up Care 11/26/2023 13:33:03 With:BRIGIDA GRAHAM Address: [address] [place] [id number] [facility] (1) When:6 weeks Comments:Call for followup appointment, with a bladder scan for PVR at that visit. Monitor your urinary flow after the dilation of the channel today. [facility] 12-23-2023 Note [id number] [facility] 12-23-2023 Note Cystoscopy with Uret hral [...] you have a fever over 100 degrees [facility] 11-21-2023 Hospital Discharge instructions Patient Education [...] (electrical nerve stimulation). ?For women, using a director medical safety to prevent urine leaks. This is a [...] right after experiencing incontinence. General instructions Take tpwq-teb-viyzsvc and prescription medicines only as told by [...] important. Where to find more information National [employer] of Diabetes and Digestive and Kidney Diseases: www.niddk.nih.gov [employer] [employer]: www.urologyhealth.org Contact a health care [...] provider. Document Revised: 06/23/2021 Document Reviewed: 06/23/2021 [employer] Patient Education 2022 [employer]. Follow Up Care 09/03/2023 10:14:29 With:FARTUN MCCOLLUM, BRIGIDA Seals, URL Address: [address] [place] [phone] When: Unknown [facility] [place] 07-02-2023 Evaluation note Encounter Date [...] obesity (ICD-10 - E66.01) advised weight loss [facility] Other 07-31-2023 Evaluation note* Encounter Date Diagnosis [...] pain of left shoulder (ICD-10 - M25.512) [facility] Other 06-15-2023 Evaluation + Plan note Diagnostic Tests Pending * Urine Culture 05/16/23 [facility]01-17-2023 Evaluation note* Encounter Date Diagnosis Assessment Notes Treatment Notes Treatment Clinical Notes Dec, Dislocation of right shoulder joint, subsequent encounter (ICD-10 - S43.004D) Patient instructed on gentle motion and strength exercise. We will consider an MRI of the shoulder to rule out a rotator cuff tear, if patient has increased pain. We will f/u in 6-8 weeks, or sooner if patient needs [facility] Other 12-20-2022 Evaluation note* Encounter Date Diagnosis [...] age range than in a younger person. [facility] Other 11-29-2022 Evaluation note* Encounter Date Diagnosis [...] follows with her PCP for hyperlipidemia management [facility] Other 09-26-2022 NotePROCEDURE: XR SHOULDER LT 2V or > HISTORY: Pain of left shoulder joint COMPARISON: None. FINDINGS: BONES:No fracture, dislocation, bone lesion. Narrowing and mild degenerative changes of the acromioclavicular joint. SOFT TISSUES:No visible soft tissue swelling. EFFUSION:None visible. OTHER: Negative. IMPRESSION: 1. No acute bone abnormality. Electronically authenticated by: ADAMS RAGSDALE Date: 2022-08-27 21:59[facility]09-26-2022 NotePROCEDURE: XR FEMUR RT HISTORY: Pain in right leg after falling COMPARISON: None. FINDINGS: BONES:Mild degenerative changes of hip joint. Right knee replacement. No fracture or dislocation. SOFT TISSUES:No visible soft tissue swelling. EFFUSION:None visible. OTHER: Negative. IMPRESSION: 1. No acute bone abnormality. Electronically authenticated by: ADAMS RAGSDALE Date: 2022-08-27 21:56[facility]09-26-2022 NotePROCEDURE: XR ELBOW RT MIN 3 VIEWS, XR HUMERUS RT MIN 2 V HISTORY: Elbow joint pain after falling COMPARISON: None. FINDINGS: BONES:No fracture, dislocation, bone lesion. Degenerative changes of the acromioclavicular joint. SOFT TISSUES:No visible soft tissue swelling. EFFUSION:None visible. OTHER: Negative. IMPRESSION: 1. No acute bone abnormality the right humerus or elbow joint. Electronically authenticated by: ADAMS RAGSDALE Date: 2022-08-27 21:53[facility]09-26-2022 NotePROCEDURE: XR ELBOW RT MIN 3 VIEWS, XR HUMERUS RT MIN 2 V HISTORY: Elbow joint pain after falling COMPARISON: None. FINDINGS: BONES:No fracture, dislocation, bone lesion. Degenerative changes of the acromioclavicular joint. SOFT TISSUES:No visible soft tissue swelling. EFFUSION:None visible. OTHER: Negative. IMPRESSION: 1. No acute bone abnormality the right humerus or elbow joint. Electronically authenticated by: ADAMS RAGSDALE Date: 2022-08-27 21:53[facility]06-14-2022 Evaluation note* Encounter Date Diagnosis Assessment Notes [...] Hyperlipidemia, unspecified hyperlipidemia type (ICD-10 - E78.5) [facility] Other [id number] History general Narrative - Reported* Type Description Date Medical History guillan-barre 2002 Medical History DM Medical History shingles Medical History [place] 06/2018 Medical History heart attack Medical History PARESTHESIA Medical History [place] Medical History MACROGLOSSIA Surgical History back surgery 2011 Surgical History meniscus repair left knee Surgical History hysterectomy 2016 Surgical History 2 heart stents 06/2018 Surgical History right TKA 03/04/18 Hospitalization History see above [facility] Other Evaluation + Plan note Future Appointments Appointment Date:11/21/2023 10:30:00 AM Scheduled Provider:BRIGIDA GRAHAM PA-C [facility] [place] [facility] App[facility]ments Appointment Date:02/24/2024 10:15:00 AM Scheduled Provider:Jose Snow MD Location:[facility] [place] Appointment Type:FM Open Appointment Date:02/27/2024 11:15:00 AM Scheduled Provider:BRIGIDA GRAHAM PA-C Location:[facility] Appointment Type:URO Office Visit [facility] Evaluation + Plan note Future Appointments Appointment Date:02/04/2024 11:20:00 AM Scheduled Provider:BRIGIDA GRAHAM PA-C Location:[facility] Appointment Type:URO Office Visit Appointment Date:02/24/2024 10:15:00 AM Scheduled Provider:Jose [facility] MD [facility] Type:FM Open Appointment Date:03/03/2024 02:00:00 PM Scheduled Provider:BRIGIDA GRAHAM PA-C Location:[facility] Appointments Appointment Date:03/23/2024 09:30:00 AM Scheduled Provider: Location:[facility] Appointment Type:Urology CALL PAT FT Appointment Date:03/30/2024 02:30:00 PM Scheduled Provider: Location:[facility] Appointment Type:Urology FT Appointment Date:04/28/2024 01:00:00 PM Scheduled Provider: [facility] Type:FM Medicare Wellness Subsequent Appointment Date:04/28/2024 02:00:00 PM Scheduled Provider:Jose Snow MD [facility] Appointment Type: Open Diagnostic Tests Pending * C-Peptide [facility] Future Appointments Appointment Date:03/23/2024 09:30:00 AM Scheduled Provider: Location:[facility] Appointment Type:Urology CALL PAT FT Appointment Date:03/30/2024 02:30:00 PM Scheduled Provider: Location:[facility] Appointment Type:Urology FT Appointment Date:04/28/2024 01:00:00 PM Scheduled Provider: [facility] Type:FM Medicare Wellness Subsequent Appointment Date:04/28/2024 02:00:00 PM Scheduled Provider:Jose Snow MD [facility] Appointment Type: Open Diagnostic Tests Pending * PTH Intact [facility]24 [facility] Future Appointments Appointment Date:03/23/2024 09:30:00 AM Scheduled Provider: Location:[facility] Appointment Type:Urology CALL PAT FT Appointment Date:03/30/2024 02:30:00 PM Scheduled Provider: Location:[facility] Appointment Type:Urology FT Appointment Date:04/28/2024 01:00:00 PM Scheduled Provider: Location[facility] Appointment Type:FM Medicare Wellness Subsequent Appointment Date:04/28/2024 02:00:00 PM Scheduled Provider:Jose Snow MD [facility] Appointment Type: Open [facility] evaluation + Plan note Future Appointments Appointment Date:04/28/2024 01:00:00 PM Scheduled Provider: [facility] Appointment Type:FM Medicare Wellness Subsequent Appointment Date:04/28/2024 02:00:00 PM Scheduled Provider:Jose Snow MD Location[facility] Appointment Type:FM Open Appointment Date:05/15/2024 11:00:00 AM Scheduled Provider:BRIGIDA GRAHAM PA-C Location:[facility] Appointment Type:URO [facility] Future Appointments Appointment Date:07/15/2024 02:45:00 PM Scheduled Provider:Joe BOOTH MD Location:[facility] Appointment Type:URO Office Visit Appointment Date:12/03/2024 09:15:00 AM Scheduled Provider:Jose Snow MD Location[facility] Appointment Type:FM Open Appointment Date:05/03/2025 09:30:00 AM Scheduled Provider: Location[facility] Appointment Type:FM Medicare Wellness Subsequent [facility] Evaluation noteNo InformationNort [employer] Other Evaluation noteNo assessment information available [facility] Work Phone: Evaluation note* Diagnosis 2-vessel coronary artery disease- Primary Essential hypertension Unspecified essential hypertension Mixed hyperlipidemia H/O non-ST elevation myocardial infarction (NSTEMI) Post PTCA Postsurgical percutaneous transluminal coronary angioplasty status Morbid obesity (CMS/HCC) Morbid obesity documented in this encounter [facility] Work Phone: Evaluation note* Diagnosis Onset Date Resolution Status Anemia acute Chronic kidney disease, stage 3b acute Hypertensive nephropathy acu te Hypokalemia acute Localized edema acute Neuropathy acute Type 2 diabetes mellitus with diabetic nephropathy acute Urinary incontinence acute HLD (hyperlipidemia) chronic Morbid obesity chronic [facility] Work Phone: Evaluation note* Diagnosis 2-vessel coronary artery disease- Primary Essential hypertension Unspecified essential hypertension Mixed hyperlipidemia Post PTCA Postsurgical percutaneous transluminal coronary angioplasty status Preop cardiovascular exam Pre-operative cardiovascular examination Stage 3 chronic kidney disease, unspecified whether stage 3a or 3b CKD (Multi) Type 2 diabetes mellitus with stage 3 chronic kidney disease, without long-term current use of insulin, unspecified whether stage 3a or 3b CKD (Multi) Morbid obesity (Multi) Morbid obesity documented in this encounter [facility] Work Phone: Evaluation note* Diagnosis 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 documented in this encounter [facility] of Present illness Narrative* Today for follow- up management for coronary artery disease with previous [...] to lose 10-12 pounds by next time [facility] 250 DO Work Phone: History of Present [...] to lose 10-12 pounds by next time [facility] 600 DO Work Phone: Hospital course Narrative No data available for this section [facility] Discharge instructions No data available for this section [facility] Discharge instructions* Attachments The following attachments cannot be sent through Care Everywhere. * Nausea and Vomiting: After Surgery (Nepalese) * Surgery: Post-op Bleeding (Nepalese) documented in this encounterBON [facility] note No data available for this section [facility] for referral (narrative)* Consultation (Routine) - Authorized Specialty Diagnoses / Procedures Referred By Contac t Referred To Contact Cardiology Diagnoses 2-vessel coronary artery disease Essential hypertension Mixed hyperlipidemia Procedures Follow Up In Cardiology Cinthia Vazquez MD [address] [place] [address] [address], [address] [address] Cinthia Vazquez MD [address] [place] [address] [address], [address] [address] Referral ID Status Reason Start Date Expiration Date V isits Requested Visits Authorized [id number] Authorized 01/09/2024 01/08/2025 1 1 [facility] Work Phone: Summary Purpose Family History No [...] Recorded Date/ Time Advance Directives No February 13, 2 018 1:46pm Latest Code Status on File Code Status Date Activated Date Inactivated Comments Full Code 05/11/2024 1:13 PM Chief Complaint MALCOM KNOWLES is being seen [...] nephropathy Urinary incontinence HLD (hyperlipidemia) Morbid obesity Reason for Referral Specialty Diagnoses / Procedures Referred By Contac t Referred To Contact Diagnoses Preop cardiovascular exam Procedures ECG 12 Lead Cinthia Vazquez MD [address] [facility] 2, [place] [address] [place] [id number] Referral ID Status Reason Start Date Expiration Date V isits Requested Visits Authorized [id number] Authorized 05/08/2024 05/08/2025 1 1 Additional Source Comments INFORMATION SOURCE (unrecogn ized section and content) DATE CREATED AUTHOR 01/19/2021 [facility] DATE CREATED AUTHOR AUTHOR'S ORGANIZ ATION 04/07/2023 [facility] DATE CREATED AUTHOR AUTHOR'S ORGANIZ ATION 04/07/2023 [facility] DATE CREATED AUTHOR AUTHOR'S ORGANIZ ATION 05/11/2023 [facility] DATE CREATED AUTHOR AUTHOR'S ORGANIZ ATION 08/08/2023 [facility] DATE CREATED AUTHOR AUTHOR'S ORGANIZ ATION 05/08/2024 [facility] DATE CREATED AUTHOR AUTHOR'S ORGANIZ ATION 05/17/2024 [facility] DATE CREATED AUTHOR AUTHOR'S ORGANIZ ATION 05/28/2024 [facility] REASON FOR VISIT (unrecogniz ed section and content) Reason Comments Follow-up 9 months Reason Comments Follow-up Poc surgery 05-11-24 dr peters Specialty Diagnoses / Procedures Referred By Contac t Referred To Contact Diagnoses Preop cardiovascular exam Procedures ECG 12 Lead Cinthia Vazquez MD [address] [facility] 2, [address] [place] [address] Referral ID Status Reason Start Date Expiration Date V isits Requested Visits Authorized [id number] Authorized 05/08/2024 05/08/2025 1 1 Specialty Diagnoses / Procedures Referred By Radha t Referred To Contact Diagnoses Macular puckering, left eye Macular puckering, left eye [H35.372] Procedures MT VITRECTOMY PARS PLANA REMOVE PRERETINAL MEMBRANE LEFT EYE PARS PLANA VITRECTOMY 25 GAUGE MACULAR PUCKER REPAIR POSSIBLE LASER POSSIBLE GAS FLUID EXCHANGE Micheal Peters MD [address] [place] [address] [facility] [address] [place] [address] Referral ID Status Reason Start Date Expiration Date Visits Re quested Visits Authorized [id number] 1 1 Patient Care team informatio n (unrecognized section [...] Active Anjana Pal APRN Attending Provider Active [employer] Relationship Specialty Start Date End Date Jose Snow MD [address] [place] [address] [place] [address] PCP - General Family Medicine 01/09/24 [employer] Relationship Specialty Start Date End Date Jose Snow MD [address] [place] [address] [place] [address] PCP - General Family Medicine 01/09/24 [employer] Relationship Specialty Start Date End Date Cinthia Vazquez MD [address] [place] [address] PCP - General Internal Medicine 12/26/23 Goals (unrecognized section and content) Goals may be documented in a n alternate section PRN Active and Recently Administ ered Medications (unrecognized section and content) Medication Order 05/09/2024 05/10/2024 05/11/2024 0.9 % sodium chloride infusion (CANCELED) IntraVENous, at 5-250 mL/hr, PRN, if patient receiving piggyback infusions and maintenance fluids are not ordered OR KVO fluids to protect IV site / prevent frequent line interruptions/ long duration, Starting on Sat05/11/24 at 1313, For piggyback infusion, administer at same rate as piggyback for a total of 25 mL. Enter 25 mL into dose field and piggyback rate into rate field of order. If piggyback is infusing at a rate less than 100 mL/hr, enter 25 mL into dose field and 100 mL/hr into rate field of order. For KVO fluids, enter rate of 20 mL/hr or less into rate field of order., Pre-op (day of surgery) 1443 (New Bag - Prov ider: DARRICK Malin CRNA)1528 (Stopped - Provider: DARRICK Malin CRNA) atropine 1 % ophthalmic solution (CANCELED) PRN, Starting on Sat05/11/24 at 1515, Until Sat05/11/24 at 1537, Intra-op 1515 (Given - Provid er: Micheal Peters MD) balanced salts plus (BSS) ophthalmic solution (CANCELED) PRN, Starting on Sat05/11/24 at 1500, Intra-op 1500 (Given - Provid er: Micheal Peters MD) BUPivacaine (PF) (MARCAINE) 0.75 % 7.5 mL, lidocaine 2 % 7.5 mL, hyaluronidase human (HYLENEX) 1 mL (CANCELED) PRN, Starting on Sat05/11/24 at 1451, Intra-op 1451 (Given - Provid er: Micheal Peters MD) ceFAZolin (ANCEF) injection (CANCELED) PRN, Starting on Sat05/11/24 at 1505, Until 05/11/24 at 1537, Intra-op 1505 (Given - Provid er: Micheal Peters MD) cyclopentolate (CYCLOGYL) 1 % ophthalmic solution 1 drop (COMPLETED) 1 drop, Left Eye, EVERY 10 MIN PRN, 3 doses, Starting on Sat05/11/24 at 1319, Until Sat05/11/24 at 1352, preop, To left eye for 3 doses every 10 minutes, starting 1 hour prior to surgery , RPh - enter number of doses based on parameters defined by the physician in the admin. comments., Pre-op (day of surgery) 1335 (Given - Provid er: Radha Flores RN)1343 (Given - Provider: Radha Flores RN)1352 (Given - Provider: Radha Flores RN) dexAMETHasone (PF) (DECADRON) injection (CANCELED) PRN, Starting on Sat05/11/24 at 1507, Until 05/11/24 at 1537, Intra-op 1507 (Given - Provid er: Micheal Peters MD) phenylephrine (MYDFRIN) 2.5 % ophthalmic solution 1 drop (COMPLETED) 1 drop, Left Eye, EVERY 10 MIN PRN, 3 doses, Starting on Sat05/11/24 at 1318, Until Sat05/11/24 at 1433, preop, To left eye for 3 doses every 10 minutes, starting 1 hour prior to surgery , RPh - enter number of doses based on parameters defined by the physician in the admin. comments., Pre-op (day of surgery) 1335 (Given - Provid er: Radha Flores RN)1342 (Given - Provider: Radha Flores RN)1350 (Given - Provider: Radha Flores RN)1433 (Given - Provider: Radha Flores RN - Comment: PER DRS INSTRUCTIONS) proparacaine (ALCAINE) 0.5 % ophthalmic solution 1 drop (COMPLETED) 1 drop, Left Eye, ONCE PRN, 1 dose, Starting on Sat05/11/24 at 1317, Until Sat05/11/24 at 1342, preop, Into the left eye 1 hour prior to surgery., Pre-op (day of surgery) 1342 (Given - Provid er: Radha Flores RN) tobramycin-dexAMETHasone (TOBRADEX) ophthalmic ointment (CANCELED) PRN, Starting on Sat05/11/24 at 1515, Intra-op 1515 (Given - Provid er: Micheal Peters MD) triamcinolone acetonide (KENALOG-40) injection (CANCELED) PRN, Starting on Sat05/11/24 at 1510, Until Sat05/11/24 at 1537, Intra-op 1510 (Given - Provid er: Micheal Peters MD - Comment: diluted in 2ml bss per dr's request) tropicamide (MYDRIACYL) 1 % ophthalmic solution 1 drop (COMPLETED) 1 drop, Left Eye, EVERY 10 MIN PRN, 3 doses, Starting on Sat05/11/24 at 1318, Until Sat05/11/24 at 1350, preop, To left eye for 3 doses every 10 minutes, starting 1 hour prior to surgery, RPh - enter number of doses based on parameters defined by the physician in the admin. comments., Pre-op (day of surgery) 1333 (Given - Provid er: Radha Flores RN)1343 (Given - Provider: Radha Flores RN)1350 (Given - Provider: Radha Flores RN) FOR RECORDS PERTAINING TO PATIENTS WHO ARE [...] BE BASED ON THE PRIMARY CLINICAL RECORDS. [employer] provides no warranty or guarantee of the accuracy or completeness of information in this document.
--- NOTE | 2024-06-08 09:50 | MM_ITS ---
Patient Name: MALCOM KNOWLES MR#: [id number] : 1955 Exam Date: 06/08/2024 Ordering Doctor: DR. JOSE SNOW . RADIOLOGY REPORT PROCEDURE: MM TOMOSYNTHESIS DIAGNOSTIC LT, 06/08/2024, 09:57 US BREAST LT LIMITED, 06/08/2024, 10:19 COMPARISON: MM DIAGNOSTIC MAMMO UNILAT LT, 11/21/2023. INDICATIONS: Abnormal Mammogram Calculator Name NCI Breast Cancer Risk Assessment Tool 5 Year Breast Cancer Risk 1.50% Lifetime Breast Cancer Risk 4.50% Personal Breast Cancer No Personal Ovarian Cancer No Treatments Hysterectomy Family Cancers Father with prostate cancer at age 66. LOCATION: [facility] BREAST COMPOSITION: There are scattered areas of fibroglandular density. FINDINGS: DIAGNOSTIC CATEGORY 2--BENIGN FINDING. NO CHANGE FROM COMPARISON. Again demonstrated are dilated ducts measuring up to 2.6 mm. No intraductal lesion or mass is observed. Noted at the 10 o'clock position is an area of anechoic echogenicity, dumbbell-shaped measuring 7.5 x 3.4 x 3.5 mm. No definite internal color flow. Given the stability over time, these findings likely are benign. The patient should return to screening mammography due November of 2024 RECOMMENDATIONS: ROUTINE MAMMOGRAM AND CLINICAL EVALUATION IN 12 MONTHS. PLEASE NOTE: A NORMAL MAMMOGRAM DOES NOT EXCLUDE THE POSSIBILITY OF BREAST CANCER. A CLINICALLY SUSPICIOUS PALPABLE LUMP SHOULD BE BIOPSIED. Dictated by: Juve Talbert MD on 06/08/2024 at 11:39 Approved by: Juve Talbert MD on 06/08/2024 at 11:43
[2024-06-09 06:08] LABS: HCV Ab Non Reactive (Non Reactive)
== END 2024-06-08 09:34 | disposition home or self-care (01) ==
LOC: MAMMO 09:33
PROVIDERS: PCP Family Medicine; Visit Provider Family Medicine
DX: R92.8 Other abnormal and inconclusive findings on diagnostic imaging of breast (principal); Z11.59 Encounter for screening for other viral diseases; E78.5 Hyperlipidemia, unspecified; E87.6 Hypokalemia; R32 Unspecified urinary incontinence; D64.9 Anemia, unspecified; R60.0 Localized edema; G62.9 Polyneuropathy, unspecified; I12.9 Hypertensive chronic kidney disease with stage 1 through stage 4 chronic kidney disease, or unspecified chronic kidney disease; N18.32 Chronic kidney disease, stage 3b
CPT/HCPCS: 36415; 76642; 77065; 86803; G0279

== ENCOUNTER 2024-06-08 09:35 | Outpatient (OUT) | payer MEDICARE, OTHER, SELFPAY ==
--- OUTSIDE RECORDS SUMMARY | 2024-06-08 09:50 | XMS_ITS ---
Patient Summarization (C-CDA 2.1 CCD) Created on: June 08, 2024 MALCOM KNOWLES : 1955 Sex: Female Author Organization Sample organization Care Team Providers Care Farm Operator Name Role Phone Dusty Walters Unavailable Unavailable [...] ., DR DUSTY Seals Primary Care Unavailable [place], DR NIALL Underwood Consulting Unavailable BEJ, AJ Admitting Unavailable WALTERS ., DR DUSTY Seals Primary Care Unavailable BEJ, AJ Consulting Unavailable BEJ, AJ Attending Unavailable Jose Snow. Primary Care Physician Brigida George Unavailable John Tanika Unavailable MD Dusty Walters Primary Care Provider [...] Cinthia Vazquez MD Primary Care Provider [phone] MICHEAL PETERS Attending Unavailable MICHEAL PETERS Referring Unavailable ICNTHIA VAZQUEZ Primary Care Unavailable MICHEAL PETERS Admitting Unavailable SHASHANK Campbell Attending Unavailable Jose Snow Attending Unavailable VEDA GRAHAM Attending Unavailab CHIP Burgess Referring Unavailable VEDA GRAHAM Attending Unavailab Jose Mcgraw Attending Unavailable Jose Snow Attending Unavailable Jose Snow Attending Unavailable Jose Snow Attending Unavailable VEDA GRAHAM Attending Unavailab Jose Mcgraw Attending Unavailable Adrian, SHASHANK Pereira Attending Unavailable Magui Sam Attending Unavailable CHIP CRAFT Referring Unavailable FARTUNVEDA AMOS Referring Unavailab VEDA [...] [SULFA (SULFONAMIDE ANTIBIOTICS)] Drug Allergy 12-16-19 24 [facility] 3 Repository (12 sources) Sulfonamides (Antibiotic); Translations: [Sulfa Drugs] Allergy to drug (finding) Unknown (qualifier value) [facility] (2 sources) FLU; Translations: [FLU] Allergy to drug (finding) [place] [id number] DO Work Phone: (9 sources) Sulfonamides (Antibiotic) Drug allergy Unknown [facility] Other (10 sources) Influenza Vac Recom CARREON Quad PF Drug allergy 02-25-20 24 Unknown, Unknown Reaction [facility] (2 sources) Sulfonamides (Antibiotic) Drug allergy (disorder) [facility] Repository (2 sources) Flu Vaccine [id number] (3 yr +) Drug allergy (disorder) 01-18-20 16 [facility] Repository (6 sources) Sulfonamides (Antibiotic); Translations: [Sulfa (Sulfonamide Antibiotics)] Allergy to substance 03-31-20 19 Unknown [facility] (4 sources) Influenza Virus Vaccines; Translations: [Influenza Virus Vaccines] Allergy to substance 03-31-20 19 Hx. Gu[place] ; told no flu vaccines [facility] (8 sources) influenza A virus A//[id number] (H1N1) antigen / influenza A virus A//[id number] (H3N2) antigen / influenza B virus B/Winn antigen / influenza B virus B/ antigen; Translations: [influenza virus vaccine] Drug Allergy [facility] Comment on above: contraindicated due to guilian barre (3 sources) Flu Medicine; Translations: [FLU MEDICINE] Drug Allergy 12-16-19 24 Unknown [facility] (1 source) Haemophilus influenzae type b Drug Allergy 12-26-19 24 [facility] (1 source) Sulfonamides (Antibiotic) Propensity to adverse reactions to drug 12-26-19 24 [facility] (1 source) influenza virus vaccine, inactivated; Translations: [influenza virus vaccine, inactivated] Propensity to adverse reactions (disorder) [facility] Repository Encounters Encounter Date Encounter Type Care Provider Facility Start: 05-03-2025 ambulatory Jose Snow Facility :[facility] Start: 12-03-2024 ambulatory Jose Snow Facility :[facility] Start: 07-15-2024 ambulatory Joe BOOTH Facility :[facility] Start: 05-27-2024 ambulatory SHASHANK Colvin y:[facility] Start: 05-15-2024 End: 05-15-2024 ambulatory VEDA GRAHAM Facility:[facility] Start: 05-15-2024 End: 05-15-2024 Patient encounter procedure BRIGIDA GRAHAM [facility] Start: 05-11-2024 End: 05-11-2024 ambulatory MICHEAL PETERS [facility] Start: 05-11-2024 End: 05-11-2024 Subsequent hospital visit by physician Micheal Peters MD Work Phone: [facility] Start: 05-08-2024 End: 05-08-2024 Office outpatient visit 25 minutes Cinthia Vazquez MD Work Phone: [facility] Comment on above: 2-vessel coronary ar wade [...] encounter status Cinthia Vazquez MD Work Phone: [facility] Work Phone: Start: 05-08-2024 End: 05-08-2024 ambulatory [facility] Start: 05-08-2024 End: 05-08-2024 Encounter for preprocedural cardiovascular examination [facility] Start: 04-28-2024 End: 04-28-2024 ambulatory [facility] Start: 04-28-2024 End: 04-28-2024 ambulatory Jose Snow Facility:[facility] Start: 03-30-2024 End: 03-30-2024 ambulatory Joe BOOTH Facility:[facility] Start: 03-30-2024 End: 03-30-2024 Patient encounter procedure Joe BOOTH [facility] Start: 03-03-2024 End: 03-03-2024 ambulatory PA-C BRIGIDA GRAHAM Facility: [facility] Start: 03-03-2024 End: 03-03-2024 Patient encounter procedure BRIGIDA GRAHAM [facility] [employer] Start: 02-27-2024 ambulatory PA-C BRIGIDA GRAHAM Facility: [facility] Start: 02-25-2024 End: 02-25-2024 ambulatory [facility] Work Phone: Start: 02-25-2024 End: 02-25-2024 Patient encounter procedure [facility] Physician [facility] Work Phone: Start: 02-25-2024 End: 02-25-2024 ambulatory ARNULFO ZHU Facility:[facility] Start: 02-25-2024 End: 02-25-2024 Patient encounter procedure ARNULFO ZHU [facility] Start: 02-24-2024 Non-patient / Non-visit [facility] Physician [facility] Work Phone: Start: 02-24-2024 End: 02-24-2024 ambulatory Jose Snow Facility:[facility] Start: 02-04-2024 End: 02-04-2024 ambulatory PA-C BRIGIDA GRAHAM Facility: [facility] Start: 01-09-2024 End: 01-09-2024 ambulatory [facility] Start: 01-09-2024 End: 01-09-2024 Office outpatient visit 15 minutes Cinthia Vazquez MD Work Phone: [facility] Comment on above: 2-vessel coronary ar wade disease (Primary Dx); Essential hypertension; Mixed hyperlipidemia; H/O non-ST elevation myocardial infarction (NSTEMI); Post PTCA; Morbid obesity (CMS/HCC) Start: 12-23-2023 End: 12-23-2023 ambulatory Joe BOOTH Facility:[facility] Start: 12-23-2023 End: 12-23-2023 Patient encounter procedure Joe Mari BOOTH [facility] Start: 12-16-2023 End: 12-16-2023 ambulatory SMOKEHOUSE OPERATOR Mariangel Campbell Facility:[facility] [place] Start: 11-21-2023 End: 11-21-2023 ambulatory PA-C [facility]IG[facility] Start: 11-21-2023 End: 11-21-2023 Patient encounter procedure BRIGIDA GRAHAM [facility] Start: 11-20-2023 End: 11-20-2023 ambulatory Jose Snow Facility:[facility] [place] Start: 10-23-2023 ambulatory Magui Sam Facility:[facility] [place] Start: 10-01-2023 End: 10-01-2023 ambulatory Jose Snow Facility:[facility] Start: 10-01-2023 End: 10-01-2023 Patient encounter procedure Jose Snow [facility] Start: 09-09-2023 End: 09-09-2023 ambulatory Jose Snow Facility:[facility] Start: 07-31-2023 End: 07-31-2023 ambulatory Anjana Pal Other [facility] Other Start: 07-31-2023 Telephone encounter [facility] Start: 07-28-2023 End: 07-28-2023 ambulatory MD Dusty Walters Work Phone: [facility] Work Phone: Start: 07-28-2023 End: 07-28-2023 Departed Referred MD Dusty Walters Work Phone: [facility] [place] Work Phone: Start: 07-15-2023 End: 07-15-2023 ambulatory SMOKEHOUSE OPERATOR Mariangel L Adrian Facility:[facility] Start: 07-05-2023 Telephone encounter Tanika John [facility] Start: 07-05-2023 End: 07-05-2023 ambulatory Tanika John Other [place] [employer] Other Start: 07-02-2023 End: 07-02-2023 ambulatory Aziz Bakhous Other [place] [employer] Other Start: 07-02-2023 Office outpatient vi sit 25 minutes Aziz Bakhous [facility] Start: 07-01-2023 Office outpatient vi sit 25 minutes Brigida George [facility] Start: 07-01-2023 End: 07-01-2023 ambulatory MD Dusty Waltres Work Phone: [facility] Work Phone: Start: 07-01-2023 End: 07-01-2023 Patient encounter procedure MD Dusty Walters Work Phone: [facility] Start: 06-28-2023 End: 06-28-2023 ambulatory Aziz Bakhous Other [place] [employer] Other Start: 06-28-2023 Telephone encounter Aziz Bakhous [facility] Start: 05-16-2023 End: 05-16-2023 Lab Drop off Mariangel L Adrian [facility] Start: 05-01-2023 ambulatory AJ BEJ Facility:[facility] 1 Start: 04-04-2023 Office outpatient vi sit 25 minutes Dusty Walters Work Phone: [facility] 600 DO Work Phone: Start: 04-04-[address] Dusty Walters Facility: Start: 01-24-2023 End: 01-24-2023 ambulatory CONNERMORIAH GERMAN . Facility:[facility] Start: 01-18-2023 End: 01-19-2023 ambulatory AJ HECTOR Facility:[facility] Start: 12-26-2022 End: 12-26-[address] DUSTY WALTERS . Facility:[facility] Start: 12-18-2022 End: 12-18-2022 ambulatory Lizandro Martins Other [facility] Other Start: 12-18-2022 Office outpatient vi sit 15 minutes Lizandro Martins [facility] Start: 12-17-2022 End: 12-17-[address] DUSTY WALTERS . Facility:[facility] Start: 11-20-2022 End: 11-20-2022 ambulatory Lizandro Martins Other [facility] Other Start: 11-20-2022 FQHC visit new patient Lizandro Martins [facility] Start: 11-17-2022 End: 11-17-[address] DUTSY WALTERS . Facility:[facility] Start: 11-09-2022 End: 11-10-[address] DUSTY WALTERS . Facility:[facility] Start: 11-09-2022 End: 11-10-[address] DUSTY WALTERS . Facility:[facility] Start: 10-30-2022 End: 10-30-2022 ambulatory Chip Craft Other [facility] Other Start: 10-30-2022 Office outpatient vi sit 15 minutes Chip Craft [facility] Don Start: 10-11-2022 End: 10-12-[address] DUSTY WALTERS . Facility:[facility] Start: 09-15-2022 End: [address] DUSTY WALTERS . Facility:[facility] Start: 08-30-2022 End: 08-31-[address] DOCTOR GALEANA Facility:[facility] Start: 08-27-2022 End: 08-28-[address] DUSTY WALTERS . Facility:[facility] Start: 07-04-2022 End: 07-04-[address] DUSTY WALTERS . Facility:[facility] Start: 05-15-2022 End: 05-15-2022 ambulatory Chip Craft Other [facility] [employer] Other Start: 05-15-2022 Office outpatient ne w 30 minutes Chip Craft [facility] Don Start: 03-12-2022 Office outpatient vi sit 25 minutes Dusty Walters Work Phone: [facility] 250 DO Work Phone: Medical Equipment Procedure Code Equipment Code Equipment [...] PERSONA LEFT SIZE D FDA Start: 03-30-2019 [facility] DME Prescri ption, See Instructions, 300 pen needle(s), 3, BD ultra fine pen needles 31G X 3/16. Use to inject insulin as directed. Dx E10.42, [facility]I [employer], Supply Start: 02-19-2023 CL STENT AURORA 3.0 X 18 FDA Start: 06-29-2018 CL STENT AURORA 3.5 X 15 FDA Start: 06-29-2018 [id number] FDA Start: 04-18-2020 Drug-eluting cor onary artery stent, ekm-xqouoxqmakbmg-aqij larry-coated ()[id number] FDA Start: 04-18-2020 Drug-eluting cor onary artery stent, ovs-eettrqroraomv-whlp larry-coated ()[id number] FDA Start: 04-18-2020 CL STENT AURORA 3.0 X 18 FDA Start: 06-29-2018 CL STENT AURORA 3.5 X 15 FDA Start: 06-29-2018 [id number] FDA Start: 04-18-2020 [facility] DME Prescri ption, See Instructions, 300 pen needle(s), 3, BD ultra fine pen needles 31G X 3/16. Use to inject insulin as directed. Dx E10.42, KOJI Drinks [facility], Supply Start: 02-19-2023 [facility] DME Prescri ption, See Instructions, 300 pen needle(s), 3, BD ultra fine pen needles 31G X 3/16. Use to inject insulin as directed. Dx E10.42, [facility], Supply Start: 02-19-2023 [facility] DME Prescri ption, See Instructions, 300 pen needle(s), 3, BD ultra fine pen needles 31G X 3/16. Use to inject insulin as directed. Dx E10.42, [facility], Supply Start: 02-19-2023 CL STENT AURORA 3.0 X 18 FDA Start: 06-29-2018 CL STENT AURORA 3.5 X 15 FDA Start: 06-29-2018 [id number] FDA Start: 04-18-2020 [facility] DME Prescri ption, See Instructions, 300 pen needle(s), 3, BD ultra fine pen needles 31G X 3/16. Use to inject insulin as directed. Dx E10.42, [facility], Supply Start: 02-19-2023 [facility] DME Prescri ption, See Instructions, 300 pen needle(s), 3, BD ultra fine pen needles 31G X 3/16. Use to inject insulin as directed. Dx E10.42, [facility], Supply Start: 02-19-2023 [facility] DME Prescri ption, See Instructions, 300 pen needle(s), 3, BD ultra fine pen needles 31G X 3/16. Use to inject insulin as directed. Dx E10.42, [facility], Supply Start: 02-19-2023 [facility] DME Prescri ption, See Instructions, 300 pen needle(s), 3, BD ultra fine pen needles 31G X 3/16. Use to inject insulin as directed. Dx E10.42, [facility], Supply Start: 02-19-2023 [facility] DME Prescri ption, See Instructions, 300 pen needle(s), 3, BD ultra fine pen needles 31G X 3/16. Use to inject insulin as directed. Dx E10.42, [facility], Supply Start: 02-19-2023 Immunizations Immunization Date Immunization Notes Care Provider Fa [facility] 09-13-2022 SARS-CoV-2 (COVID-19 ) [id number] Mariangel Campbell [facility] 01-13-2022 Moderna COVID-19 Vac cine 100 MCG/0.5ML Intramuscular Suspension Dusty Walters Work Phone: [facility] Comment on above: Result Comment: 2022: [id number] 08-09-2021 Moderna COVID-19 Vac cine 100 MCG/0.5ML Intramuscular Suspension Dusty Bozena Selena Work Phone: [facility] 07-12-2021 Moderna COVID-19 Vac cine 100 MCG/0.5ML Intramuscular Suspension Dusty Bozena Walters Work Phone: [facility] 12-02-2016 pneumococcal polysaccharide vaccine, 23 valent Dusty Seals Selena Work Phone: [facility] 250 DO Work Phone: 10-18-2016 pneumococcal conjuga te vaccine, 13 valent Dusty Seals Selena Work Phone: [facility] Medications Current Medications Medication Drug Class(es) Dates [...] Date: 05/15/24 Status: Ordered Start: 02-25-2024 take 50525 ug by fermín th twice daily Biotin Active 43487 MCG PO Twice daily February 25, 2024 12:00am Start: 09-09-2023 take 1 tablet by fermín th twice daily biotin 10 mg oral tablet 10 mg = 1 tab(s), Oral, BID, # 30 tab(s), Refills(s) 0 Start Date: 09/09/23 Status: Ordered Start: 06-27-2018 End: 04-09-2019 take 37987 ug by mouth twice daily Biotin Discontinued 31451 MCG PO Twice daily June 27, 2018 [...] tablet by fermín th twice daily Biotin 79390 MCG 1 tablet Orally twice a day [...] q12hr, # 20 cap(s), Refills(s) 0, Pharmacy: [facility], 160, cm, 02/24/24 10:12:00 EDT, Height/Length Dosing, [...] procedure, # 10 tab(s), Refills(s) 0, Pharmacy: [facility], 160, cm, 02/04/24 11:44:00 EST, Height/Length Dosing, 138, kg, 02/04/24 11:44:00 EST, Weight Dosing Start Date: 02/05/24 Status: Ordered Start: 11-26-2023 Cipro 500 mg T ab See Instructions, Take 1 tab day prior to procedure and 1 tab day of procdure - afterwards, # 2 tab(s), Refills(s) 0, Pharmacy: [facility], 160, cm, 11/21/23 10:42:00 EST, Height/Length Dosing, 138, kg, 11/21/23 10:42:00 EST, Weight Dosing Start Date: 11/26/23 Status: Ordered Start: 05-16-2023 End: 05-23-2023 take 1 tablet by mouth every twelve hours Cipro 500 mg Tab 500 mg = 1 tab(s), Oral, q12hr, X 7 day(s), # 14 tab(s), Refills(s) 0, Pharmacy: [facility], 158, cm, 05/16/23 14:43:00 EDT, [...] Start: 05-16-2023 take 1 capsule by mo [facility] once daily as needed for [...] Famotidine Discontinued 20 MG PO Twice daily April 09, 2019 [...] Once, # 1 tab(s), Refills(s) 0, Pharmacy: [facility] Start Date: 04/01/23 Status: Ordered Freestyle [...] daily Furosemide Discontinued 40 MG PO DAILY@0630 30 March 13, 2018 12:00am March 16, 2019 [...] afternoon and bedtime. take 1 capsule by [facility] every eight hours Gabapentin 300 MG [...] Refills(s) 0 Start Date: 05/16/23 Status: Ordered Wunwohrs-Trebf-Quchi-Cf Borate (Move Free [facility]) 750 mg-100 mg- 1.65 mg-108 mg tablet (1 source) Start: 02-25-2024 take 1 tablet by mouth once daily Izlzsknh-Mldoa-Sxqkf-Cf Borate (Move Free [employer]) 750 mg-100 mg- 1.65 mg-108 mg tablet [...] teresa, Rectal, TID, 10 gram, Refill(s) 0, [facility], 160, cm, 12/16/23 10:57:00 EST, [...] sources) Insulin Analog Start: 05-15-2024 NovoLog SubCut anetorito TIDAC Start Date: 05/15/24 Status: Ordered Start: [...] 09/09/23 Status: Ordered take 1 capsule by [facility] four times daily as needed for [...] Start: 03-11-2022 take 0.5 tablet by m outh once daily Losartan Potassium 25 MG Oral Tablet TAKE 1/2 TABLET DAILY. Quantity: 45 Refills: 3 Ordered: 12-Mar-2022 Cinthia Vazquez MD Start : 11-Mar-2022 Active memantine hydrochloride 10 mg oral tablet (20 sources) I-nrbmca-I-aspartate Receptor Antagonist Start: 01-29-2022 take 1 tablet [...] 2 tablets Orally once a day Active Jzahbdxg-Mdb-Fk-L ycopen-Lutein (Certavite Senior) 0.4 mg-300 mcg- 250 mcg tablet (1 source) Start: 02-25-2024 take 1 tablet by mouth once daily Abviksux-Gmx-Tn-L ycopen-Lutein (Certavite Senior) 0.4 mg-300 mcg- 250 mcg tablet Active 1 TAB PO Daily February 25, 2024 12:00am multivitamin with minerals iron-free (Centrum Silver) (1 source) take 1 tablet by mouth once daily multivitamin with minerals iron-free (Centrum Silver) Take 1 tablet by mouth once daily. Active [employer]'s Bounty Probiotic (1 source) Start: 05-15-2024 Nature's Bounty Probiotic Oral, Daily Start Date: 05/15/24 Status: Ordered nitrofurantoin, macrocrystals 25 mg / nitrofurantoin, monohydrate 75 mg oral capsule (1 source) Nitrofuran Antibacterial Start: 12-16-2023 End: 12-26-2023 take 1 capsule by mouth twice daily nitrofurantoin macrocrystals-mon ohydrate 100 mg Cap 100 mg = 1 cap(s), Oral, BID, X 10 day(s), # 20 cap(s), Refills(s) 0, Pharmacy: [facility], 160, cm, 12/16/23 10:57:00 EST, [...] Ordered Normal saline (1 source) Saline Nasal [place] 0.65 % as directed Nasally Active ondansetron 4 mg oral tablet (12 sources) Serotonin-3 Receptor Antagonist Start: 05-16-2023 take 1 tablet by mouth every six hours ondansetron 4 mg Tab 4 mg = 1 tab(s), Oral, q6hr, Refills(s) 0 Start Date: 05/16/23 Status: Ordered take 1 tablet by fermín th every eight hours as needed for nausea ondansetron (ZOFRAN) 4 MG tablet Take 1 tablet by mouth every 8 hours as needed for Nausea or Vomiting 0 Suspended take 2 tablets by mo uth every eight hours as needed ondansetron (Zofran) [...] Date: 08/20/23 Status: Ordered polyethylene glycol 3350 56817 mg powder for oral solution (8 sources) [...] Ordered Start: 01-02-2023 take 1 capsule by mo [facility] once daily venlafaxine XR (Effexor-XR) 150 mg [...] 13, 2018 10:19am [facility] cyanocobalamin, vitamin B-12, (Vitamin B-12) [...] 0 Start Date: 09/09/23 Status: Ordered Vitamins A,C,E-Cpyn-Zhzyvg (Preservision Areds) 4,296 mcg-226 mg-90 mg capsule (1 source) Start: 02-25-2024 take 1 capsule by mouth twice daily Vitamins A,C,O-Zewi-Ayxexb (Preservision Areds) 4,296 mcg-226 mg-90 mg capsule [...] Orally Once a day Not-Taking bifidobacterium animalis [id number] unt / lactobacillus acidophilus 26262774962 unt oral capsule (1 source) Probiotic Produc [...] 13, 2018 10:19am Freestyle Bang 2 system (7 sources) Start: 07-15-2023 Freestyle Libr e 2 system Freestyle Bang 2 system, See Instructions, 1 EA, 0, pt to check BS 4 times per day, Supply Start Date: 07/15/23 Status: Ordered Horhudqk-Cdqtf-Sdgss-C f Borate ([employer]) 750 mg-100 mg- 1.65 mg-108 mg Tablet (6 sources) Start: 06-27-2018 End: 04-09-2019 take 1 tablet by mouth once daily Lwcsvesd-Jbkev-Rhxlx-Cf Borate ([employer]) 750 mg-100 mg- 1.65 mg-108 mg Tablet Discontinued 2 TAB PO Daily June 27, 2018 12:00am April 09, 2019 9:42am Start: 02-18-2018 End: 03-06-2018 take 1 tablet by mouth once daily Xsaflsbl-Diozu-Rhodm-Cf Borate ([employer]) 750 mg-100 mg- 1.65 mg-108 mg Tablet Discontinued 2 TAB PO Daily February 18, 2018 12:00am March 06, 2018 12:28pm Brwaiehhepy-Gpzkavweh-Uoe C-Mn (GLUCOSAMINE 1500 COMPLEX PO) (1 source) [...] capsule (18 sources) Antihistamine Star t: 03-04 19 End: 03-2 6-20 24 take 25 mg by mouth every three [...] 13, 2018 12:00am June 27, 2018 10:44am Ex-Jpa-Xtwuj-Calcium Carb-K1 (Women's 50 Plus Daily Formula) 400 mcg-500 mg calcium-20 mcg Tablet (6 sources) Start: 06-27-2018 End: 03-16-2019 take 1 tablet by mouth once daily Pn-Fkm-Sxjqw-Calcium Carb-K1 (Women's 50 Plus Daily Formula) 400 mcg-500 mg calcium-20 mcg Tablet Discontinued 1 TAB PO Daily June 27, 2018 12:00am March 16, 2019 2:32pm Start: 02-18-2018 End: 03-13-2018 take 1 tablet by mouth once daily Wj-Ntv-Xmbed-Calcium Carb-K1 (Women's 50 Plus Daily Formula) 400 mcg-500 mg calcium-20 mcg Tablet Discontinued 1 TAB PO Daily February 18, 2018 12:00am March 13, 2018 10:20am Novolin L 100 UNIT/ML SUSP (1 source) Novolin L 100 UNIT/ML SUSP USE DIRECTED. Quantity: 0 Refills: 0 Ordered: 04-Apr-2023 DO Active nystatin 910684 unt/ml topical cream (6 sources) Polyene Antifungal Start: 11-20-20 apply 15 [...] Inject into the skin 0 Suspended sennosides, fdc 8.6 mg oral tablet (3 sources) Start: 04-09-2019 End: 02-25-2024 take 2 tablets by mouth once daily Sennosides (Senna Lax) 8.6 mg Tablet Discontinued 2 TAB PO DAILY@12 30 April 09, 2019 12:00am February 25, 2024 [...] 27, 2018 10:44am April 09, 2019 9:42am Payers Date Payer Category Payer Unknown [id number] 2023 Self-pay [id number] 2022 Medicare [id number] 2018 Medicare [id number] 1959 Medicare [id number] 2.1 [id number] 1959 Unknown [id number] 2.1 [id number] 1953 Unknown [id number] 2.16. 840.1.486778.3.579.2.356 1953 Unknown [id number] 2.16.84 0.1.380214.3.579.2.593 1953 Unknown [id number] 2.16.84 0.1.546848.3.579.2.593 1953 Unknown [id number] 2.16.84 0.1.907956.3.579.2.593 1953 Unknown [id number] 2.16.84 0.1.220185.3.579.2.593 1953 Unknown [id number] 2.16.84 0.1.943798.3.579.2.593 1953 Unknown [id number] 2.16.84 0.1.545439.3.579.2.593 1953 Unknown [id number] 2.16.84 0.1.983827.3.579.2.593 1953 Unknown [id number] 2.16.84 0.1.626485.3.579.2.593 1953 Unknown [id number] 2.16.84 0.1.156925.3.579.2.593 1953 Unknown [id number] 2.16.84 0.1.340573.3.579.2.593 1953 Unknown [id number] 2.16.84 0.1.838245.3.579.2.593 1953 Unknown [id number] 2.16.84 0.1.817560.3.579.2.593 1953 Unknown [id number] 2.16.84 0.1.753799.3.579.2.593 1953 Unknown [id number] 2.16.8 40.1.758620.3.579.2.1244 1953 Unknown [id number] 2.16.8 40.1.097383.3.579.2.1244 1953 Unknown [id number] 2.16. 840.1.912249.3.579.2.204 1953 Unknown [id number] 2.16.8 40.1.899192.3.579.2.727 1955 Unknown [id number] 2.16.8 40.1.262102.3.579.2.727 1955 Unknown [id number] 2.16.8 40.1.336082.3.579.2.727 1955 Unknown [id number] 2.16.8 40.1.278804.3.579.2.727 1955 Unknown [id number] 2.16.8 40.1.086944.3.579.2.727 1955 Unknown [id number] 2.16.8 40.1.686276.3.579.2.727 1955 Unknown [id number] 2.16.8 40.1.849597.3.579.2.727 1955 Unknown [id number] 2.16.8 40.1.959644.3.579.2.727 1955 Unknown [id number] 2.16.8 40.1.268131.3.579.2.727 1955 Unknown [id number] 2.16.8 40.1.545048.3.579.2.727 1955 Unknown [id number] 2.16.8 40.1.627710.3.579.2.72 1955 Unknown [id number] 2.16.8 40.1.588304.3.579.2.727 1955 Unknown [id number] 2.16.8 40.1.507666.3.579.2.72 1955 Unknown [id number] 2.16.8 40.1.600512.3.579.2.72 1955 Unknown [id number] 2.16.8 40.1.886882.3.579.2.72 1955 Unknown [id number] 2.16.8 40.1.206101.3.579.2.727 1955 Unknown [id number] 2.16.8 40.1.040352.3.579.2.72 1955 Unknown [id number] 2.16.8 40.1.373745.3.579.2.727 1955 Unknown [id number] 2.16.8 40.1.526116.3.579.2.727 1955 Unknown [id number] 2.16.8 40.1.513753.3.579.2.727 1955 Unknown [id number] 2.16.8 40.1.413530.3.579.2.72 1955 Unknown [id number] 2.16.8 40.1.560276.3.579.2.727 Medicaid [employer] [id number] Unknown Unknown [id number] 2.16.8 40.1.758016.3.579.2.531 Unknown [id number] 2.16.8 40.1.610626.3.579.2.531 Plan of Treatment Date Care Activity Detail Author Start: 01-05-2025 End: 01-05-2025 Patient encounter procedure 01/05/2025 9:50 AM EST Office Visit [place] [address] [place] [id number] Cinthia Vazquez MD [address] [facility] [place] [address] [facility] Start: 08-02-2024 Influenza vaccination Influenz a Vaccine (Season Ended) [facility] Start: 05-11-2024 End: 05-11-2024 Vitrectomy pars plana remove preretinal membrane EYE VITRECTOMY Macular puckering, left eye 05/11/2024 2:42 PM EDT [facility] Start: 01-07-2024 FUV, Provider: Cinthia Vazquez, Status: Pen, Time: 11:00 AM FUV, Provider: Cinthia Vazquez, Status: Pen, Time: 11:00 AM [facility] 600 DO Work Phone: Start: 08-02-2023 COVID-19 Vaccine ( season) COVID-19 Vaccine ( season) [facility] Start: 08-02-2023 Influenza vaccination Influenza Vacc ine (#1) [facility] Start: 07-28-2023 Bacteria identified in Urine by Culture Urine Culture [facility] Start: 12-11-2022 FUV, Provider: Cinthia Vazquez, Status: Pen, Time: 10:30 AM FUV, Provider: Cinthia Vazquez, Status: Pen, Time: 10:30 AM [facility] 250 DO Work Phone: Start: 07-05-2022 Glaucoma screening Diabetes: R etinopathy Screening [facility] Start: 12-02-2021 Pneumococcal Vaccine : 65+ Years (3 - PPSV23 or PCV20) Pneumococcal Vaccine: 65+ Years (3 - PPSV23 or PCV20) [facility] Start: 12-02-2021 Pneumococcal Vaccine : 65+ Years (3 of 3 - PPSV23 or PCV20) Pneumococcal Vaccine: 65+ Years (3 of 3 - PPSV23 or PCV20) [facility] Start: 2013 Respiratory Syncytia l Virus (RSV) or age 60 yrs+ (1 - 1-dose 60+ series) Respiratory Syncytial Virus (RSV) or age 60 yrs+ (1 - 1-dose 60+ series) [facility] Start: 2013 RSV patient s and/or patients aged 60+ years (1 - 1-dose 60+ series) RSV patients and/or patients aged 60+ years (1 - 1-dose 60+ series) [facility] Start: 2003 Zoster Vaccines (1 o f 2) Zoster Vaccines (1 of 2) [facility] Start: 1993 Screening for malign ant neoplasm of breast Mammogram [facility] Start: 1975 DTaP/Tdap/Td Vaccine s (1 - Tdap) DTaP/Tdap/Td Vaccines (1 - Tdap) [facility] Start: 1972 DTaP/Tdap/Td vaccine (1 - Tdap) DTaP/Tdap/Td vaccine (1 - Tdap) [facility] Start: 1972 Urine screening for protein Diabetes: Urine Protein Screening [facility] Start: 1971 Hepatitis C screening Hepatitis C Sc reening [facility] Start: 1963 Diabetic foot examination Diabetes: Foot Exam [facility] Start: 03-17-1956 COVID-19 Vaccine (#1) COVID-19 Vacci ne (#1) [facility] Start: 1955 Hemoglobin A1c measurement Diabetes: Hemoglobin A1C [facility] Start: 1955 Lipid panel Lipid Panel [facility] Start: 1955 Medicare Annual Wellness Visit Medicare Annual Wellness Visit (AWV) [facility] Start: 1955 Screening for malign ant neoplasm of colon [facility] Start: 1955 Screening for osteoporosis Bone Density Scan [facility] End: 05-11-2024 Glucose [Mass/volume] in Serum or Plasma POCT Glucose Point of Care Testing Routine One Time for 1 Occurrences starting 05/11/2024 until 05/11/2024 KATINA SANCHEZ [employer] Work Phone: Comment on above: One Time for 1 Occur rences starting 05/11/2024 until 05/11/2024 Problems Active Problems Problem Classification Problem Date Documented Date Episodic/Chronic Acute myocardial infarction (3 sources) Acute ST segment elevation myocardial infarction; Translations: [ST elevation (STEMI) myocardial infarction of unspecified site] 06-29-2018 Chronic Administrative/social admission (4 sources) Lives in a penitentiary; Translations: [Person living in residential institution] 03-07-2018 [...] [Coronary atherosclerosis of unspecified type of vessel, enterprise or graft] Onset: 08-29-2022 04-01-2019 Chronic Deficiency [...] 11-09-2022 Chronic Comment on above: Linked per albertpalien lopez [facility] policy Disorders of lipid metabolism (20 sources) Hyperlipidemia; Translations: [Other and unspecified hyperlipidemia] Onset: 05-15-2022 Resolved: 05-15-2022 Chronic Essential hypertension (20 sources) Essential hypertension; Translations: [Unspecified essential hypertension] Onset: 05-15-2022 Resolved: 05-15-2022 Chronic Comment on above: Linked per outpaiten [facility] policy [...] system disorders (8 sources) History of Guillain Nashua syndrome 09-09-2023 Episodic Other non-traumatic joint disorders [...] Resolved: 05-08-2024 Episodic Other aftercare (1 source) assisted (current) use of aspirin; Translations: [RETIREMENT CURRENT USE OF ASPIRIN] Onset: 01-28-2023 Episodic Other aftercare (1 source) 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..] Walters Work Phone: Arthroplasty of knee Dusty Hair rena Work Phone: Cardiac catheterization Dusty Walters Work Phone: Cardiac catheterization Jose R Snow Comment on above: 2017 2 stents, 2019 3 stents Cataract (disorder) Jose Montesinos oss Comment on above: 08/2021 Colonoscopy BRIGIDA GRAHAM History of arthropla sty of left knee [...] Snow Total colonoscopy Dusty Du Work Phone: Results Test Name Value Interpretation Reference Range Facil ity Screenson 05-19-2024 Screens [id number]#1.00TIFF Normal [facility] Ambulatory Visit Summaryon 0 05-15-2024 Ambulatory Visit [...] EST With: Kaushal JUDGE, Jose Lau Where: [facility] Normal [address] [place] [address]- \.br\ Medications\.br\ What How Much When Why [...] of Uterine cancer\.br\ HTN (hypertension)\.br\ Hx of Guillain-Nashua syndrome\.br\ Hypercholesterolemia\ .br\ Insulin long-term use\.br\ Leg [...] for choosing us for your care.\.br\ \.br\ [facility] Patient Educationon 05-15-20 Patient Education Obstetrics and [...] health care provider. General instructions ? Take wqwt-ppw-ohykote and prescription medicines only as told by [...] monitor yo (more content not included)... Normal [facility] Urology Office/Clinic Noteon 05-15-2024 Urology Office/Clinic Note [...] consider repeating procedure at higher dose. Ordered: 06772 Measure Post Void residual urine and/or bladder capacity by US- non-imaging Complex E&M Add on G2211 E&M of Est. Patient Low 20-29 Min 74499 2. Urethral stricture (N35.919: Unspecified urethral stricture, male, unspecified site) sp cysto/UD w GPC 12/23/23, tight at 18fr normal urethra during botox cysto 03/30/24 TODAY: pt denies straining, hesitancy, intermittency. does not feel she needs repeat dilation. Ordered: Complex E&M Add on G2211 E&M of Est. Patient Low 20-29 Min 92004 3. Frequent UTI (N39.0: Urinary tract infection, [...] E&M of Est. Patient Low 20-29 Min 55853 Follow-up With When Contact Information EMMY JUDGE, Joe Guerra, URL In [address] [place] [id number]- Additional Instructions: Patient Education Overactive Bladder, Adult Problem List/Past Medical History Ongoing (Idiopathic) normal pressure hydrocephalus ASCVD (arteriosclerotic cardiovascular disease) Back pain Benign hypertension with chronic kidney disease BMI 50.0-59.9, adult CKD (chronic kidney disease) stage 3, GFR 30-59 ml/min Confusion Diabetic retinopathy Essential tremor Frequent falls Frequent UTI Gait disorder Gross hematuria History of Uterine cancer HTN (hypertension) Hx of Guillain-Nashua syndrome Hypercholesterolem ia Insulin long-term use Leg [...] mg oral (more content not included)... Normal [facility] Comment on above: Result Comment: Elec tronically Signed By: BRIGIDA GRAHAM PA-C\.fani\Date and Time Signed: 05/15/24 11:46 EDT Custodial Recordson 05-12 Custodial Records [id number]#1.00TIFF Normal [facility] Glucose,Whole Bloodon 2023 Glucose [Mass/Vol] 149 mg/dL High 74-99 [facility] [employer] POCT Glucoseon 05-11-2024 Interpretation and review of laboratory results Abnormal [facility] [employer] [facility] ECG 12 Leadon 05-08-2024 Normal sinus rhythm with old inferior wall myocardial infarction [facility] Work Phone: Consultation Noteon 04-30-20 Consultation Note [id number]#1.00TIFF Normal [facility] Consultation Note [id number] 745A#1.00TIFF Normal [facility] Family Medicine Office/Clini c Noteon 04-30-2024 Family [...] for MERS/COVID-19 : N/A Velma Flores LPN L - 04/28/2024 12:55 EDT Medicare/Medicaid Summary Numeric Rating Pain Scale : 8 Primary Pain Location : Back Velma Flores LPN L - 04/28/2024 14:59 EDT Systolic Blood Pressure : 100 mmHg Diastolic Blood Pressure : 68 mmHg Peripheral Pulse Rate : 64 bpm Respiratory Rate : 18 br/min SpO2 : 94 % Flores 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 ENGINEER Velma L - 04/28/2024 14:15 EDT Height/Length Measured : 154 cm(Converted to: 5 ft 1 in, 60.63 in) Weight Measured : 135.9 kg(Converted to: 299 lb 10 Ounces, 299.608 lb) Body Mass Index Measured : 57.3 kg/m2 Height in Inches : 61 in Weight in Pounds : 298.98 lb Numeric Rating Pain Score : 8 Velma Flores LPN L - 04/28/2024 13:09 EDT Chief Complaint : Medicare Wellness Visit Patient Counseled : Nutrition, Physical activity, Elevated BMI Blood Pressure Location : Right arm Blood Pressure Position : Sitting O2 Sat Resting/Exertion Alpha : Resting Velma Flores LPN - 04/28/2024 12:55 EDT Pain Present : Yes actual or suspected pain Velma Flores LPN - 04/28/2024 14:59 EDT Hearing and Vision Screening FT FT Whisper Test Comments : No deficits noted. Vision Screen Comments : Does not wear corrective lenses, gets DM eye exams from Dr. Haroon Zuniga last 01/20/2024. Velma Flores LPN - 04/28/2024 13:09 EDT Advance Directive FT Type of Advance Directive : Living will, Medical durable power of mergers and acquisitions attorney Velma Flores LPN - 04/28/2024 14:15 EDT [...] Minutes: 0 ; Comments: 09/04/2023 17:09 EDT Stephanie Wong LPN 08/2021 ; Last Reviewed Dt/Tm: 04/28/2024 [...] EDT Hazards i (more content not included)... Normal [facility] Comment on above: Result Comment: Elec tronically Signed By: Kaushal JUDGE, Jose Villareal.br\Date and Time Signed: 04/30/24 10:24 EDT\.br\Electronically Co-Signed By: Velma Flores LPN\.br\Date and Time Co-Signed: 04/28/24 16:15 EDT Custodial Recordson 04-30 Custodial Records [id number]#1.00TIFF Normal [facility] Auth for Release of Medical Recordson 04-29-2024 Auth for Release of Medical Records [id number] 263#1.00TIFF Normal [facility] Physician Referralon 024 Physician Referral [id number]#1.00TIFF Normal [facility] Physician Referral [id number] 0168#1.00TIFF [facility] Screenson 04-29-2024 Screens [id number] 912#1.00TIFF [facility] Ambulatory Visit Summaryon 0 04-28-2024 Ambulatory Visit Summary MALCOM KNOWLES :1955 Visit Date:04/28/2024 Ambulatory Visit Instructions Your Diagnosis 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 External Ambulatory Referral, Orthopaedics, 04/28/24 14:52:00 EDT, Type 2 diabetes mellitus with chronic kidney disease [facility] Ambulatory Visit Summary MALCOM KNOWLES :1955 Visit [...] MD Primary Care Physician - Jose Snow MD. [...] BRIGIDA GRAHAM PA-C Where: [facility] Invalid Interpretation Code [address] [place] [address]- \.br\ Someone Will Contact You Regarding These Appointments\.br\ [facility] External Ambulatory Referral, Orthopaedics, 04/28/24 14:52:00 EDT, Type 2 diabetes mellitus with chronic kidney disease [facility] Family Medicine Office/Clini c Noteon 04-28-2024 Family [...] do for it 4. refer to a supervisor title ( jaziel loved) History of Present Illness [...] this time. - Reviewed patient's diet Ordered: [facility] External Ambulatory Referral 2. Major depressive disorder with single episode, in full remission (F32.5: Major depressive disorder, single episode, in full remission) - Seeing Psych - Doing much better. - Feeling better and family has noticed Ordered: [facility] External Ambulatory Referral 3. Hx of Guillain-Nashua syndrome (Z86.69: Personal history of other diseases of the nervous system and sense organs) - Pt will speak to the pharmacy as we want to confirm which immunizations she can get. Ordered: [facility] External Ambulatory Referral 4. ASCVD (arteriosclerotic cardiovascular disease) (I25.10: Atherosclerotic heart disease of enterprise coronary artery without angina pectoris) - NO CP - Doing well. Ordered: [facility] External Ambulatory Referral 5. Back pain (M54.9: Dorsalgia, unspecified) - Will work on the leg weakness and falling - Then possible pain management Ordered: [facility] External Ambulatory Referral 6. Leg weakness (R29.898: [...] Once, # 1 tab(s), Refills(s) 0, [facility] Antibody RFX to Quant PCR [...] of Uterine cancer HTN (hypertension) Hx of Guillain-Nashua syndrome Hypercholesterolem ia Insulin long-term use Leg [...] Instructions handi (more content not included)... Normal [facility] Comment on above: Result Comment: Elec tronically Signed By: Kaushal JUDGE, Jose Lau\.br\Date and Time Signed: 04/28/24 14:53 EDT Patient Educationon 04-28-20 Patient Education Nutrition BMI for Adults What [...] numbers. This can be done either in Georgian ([place] or metric measurements. Note that charts and online BMI calculators are available to help you find your BMI quickly and easily without having to do these calculations yourself. To calculate your BMI in Georgian ([place] measurements: 1. Measure your weight in [...] for Disease Control and Prevention: www.cdc.gov ? [place] Heart Association: www.heart.org ? National Heart, Lung, and Blood [place]: www.nhlbi.nih.gov Summary ? Body mass index (BMI) is a number that is calculated from a person's weight and height. ? BMI may help estimate how much of a person's weight is composed of fat. BMI can help identify those who may be at higher risk for certain medical problems. ? BMI can be measured using Georgian measurements or metric measurements. ? BMI charts are used to identify whether you are underweight, normal weight, overweight, or obese. This information is not intended to replace advice given to you by your health care provider. Make sure you discuss any questions you have with your health care provider. Document Revised: 08/10/2020 Document Reviewed: 06/17/2020 [employer] Patient Education ? 2022 [employer] [facility] Patient Education Mental and Behavioral Health Supporting [...] the National Suicide Prevention Lifeline at or 110 in the [place]. Find support and resources A health care provider may be able to recommend mental health resources that are available online or over the phone. You could start with: ? Government sites such as the Substance Abuse and Mental Health Services Administration (SAMHSA): www.samhsa.gov ? SAMA'S Helpline: 4-902-820-HELP (9911). ? National mental health organizations such as the National [place] on Mental Illness (CHAR): www.char.org You may [...] Joining the pers (more content not included)... Normal [facility] Custodial Recordson 04-17 Custodial Records [id number]#1.00TIFF [facility] Custodial Recordson 04-07 Custodial Records [id number] 204#1.00TIFF [facility] Custodial Recordson 04-06 Custodial Records [id number]#1.00TIFF [facility] Consent for Procedure/Surger yon 04-02-2024 Consent for Procedure/Surgery [id number]#1.00TIFF [facility] Custodial Recordson 03-31 Custodial Records [id number] [id number]#1.00TIFF [facility] Consent for Procedure/Surger yon 03-30-2024 Consent for Procedure/Surgery [id number]#1.00TIFF [facility] Consent for Treatmenton 03-03 Consent for Treatment [id number]#1.00TIFF Normal [facility] ED Note-Physicianon 03-30-20 ED Note-Physician [id number]#1.00TIFF Normal [facility] Inpatient Patient Summaryon 03-30-2024 Inpatient Patient Summary [place] [id number] Clinical Summary Person Information Name: MALCOM KNOWLES Age: 68 Years : 1955 Sex: Female PCP: Jose Snow MD Marital Status: Race: White Ethnicity: Non- or Language: Georgian Visit Id: Visit Reason: URINARY INCONTINENCE Speciality: Acuity: Enc Type: Outpatient Med Service: Surgery Arrival: 03/30/2024 14:05:10 Discharge: Dispo Type: Address: [address] [place] [id number] Provider Notes: Diagnosis: Problems Active Urge incontinence (Idiopathic) normal pressure hydrocephalus Frequent falls Confusion Urethral stricture Gross hematuria Mixed incontinence Major depressive disorder with single episode, in full remission Stage 3b chronic kidney disease (CKD) Hx of Guillain-Nashua syndrome Morbid obesity Benign hypertension with chronic [...] memantine (mem (more content not included)... Normal [facility] IntraOperative Documentson 0 03-30-2024 IntraOperative Documents [id number]#1.00TIFF [facility] Main OR Intraoperative Recor don 03-30-2024 Main OR Intraoperative Record IntraOp Document Type FTURO Summary Primary Physician: Joe BOOTH MD Finalized Date/Time: 03/30/24 15:05:26 Pt. Name: MALCOM KNOWLES/Sex: 1955 Female Med Rec #: [id number] Physician: Joe BOOTH MD Financial #: [id number] Pt. Type: O Room/Bed: / Admit/Disch: 03/30/24 14:05:10 - Institution: Case Times FTURO Entry 1 Patient Times In Room 03/30/24 14:43:00 Out Room 03/30/24 14:59:00 Procedure Times Start 03/30/24 14:46:00 Stop 03/30/24 14:54:00 Anesthesia Times Last Modified By: Juan Manuel DE LOS SANTOS, RAJESH, Samaria 03/30/24 14:52:55 Case Attendance FTURO Entry 1 Entry 2 Entry 3 Case Attendee EMMY JUDGE, Joe Zambrano RN, JOSE LUISOR, Frank Quarles Role Performed Surgeon - Primary Manager Travel - Primary Scrub - Primary Time In [...] UNITS BOTOX Primary Procedure Yes Primary Surgeon EMMY JUDGE, Joe Guerra Start 03/30/24 14:46:00 Stop 03/30/24 14:54:00 Anesthesia Type Local Surgical Service Urology Wound Class 2 - Clean-Contaminated Last Modified By: RAJESH Zambrano RN, Samaria 03/30/24 14:53:18 General Comments: botox 100 outdate 04/26 lot [id number] General Case Data FTURO Pre-Care Text: Classifies surgical wound, implements aseptic technique, initiates traffic control Entry 1 Case Information OR URO 1 FT Case Level None Wound Class 2 - Clean-Contaminated Specialty Urology Preop Diagnosis URINARY INCONTINENCE Postop Same As Preop Yes Postop Diagnosis URINARY INCONTINENCE Outcomes Met? Yes Last Modified By: RAJESH Zambrano RN, Samaria 03/30/24 14:13:46 Post-Care Text: The patient is [...] Juan Manuel DE LOS SANTOS, RAJESH, Applicable) Robina Mera Kendall R Time Out [...] RAJESH Zambrano RN, Ruthann 03/30/24 15:05 Normal [facility] Main OR Preoperative Recordo n 03-30-2024 Main OR Preoperative Record Holding Area Document Type FTURO Summary Primary Physician: Joe BOOTH MD Finalized Date/Time: 03/30/24 14:44:32 Pt. Name: MALCOM KNOWLES /Sex: 1955 Female Med Rec #: [id number] Physician: Joe BOOTH MD Financial #: [id number] Pt. Type: O Room/Bed: / Admit/Disch: 03/30/24 [...] 14:38 Michelle Bedolla RN 03/30/24 14:44 Normal [facility] Operative Reporton Operative Report Patient: MALCOM KNOWLES Age: 68 years Sex: Female : 1955 Associated Diagnoses: None Author: Joe BOOTH MD Procedure Operative Information Details: Date/ Time: 03/30/2024 14:55:00. Pre-Op Dx: Overactive bladder ([id number]-CS N32.81, Working, Medical), Urgency incontinence ([id number] N39.41, Working, Medical). Post-Op Dx: Same. Anesthesia [...] six weeks with bladder scan PVR.. Normal [facility] Comment on above: Result Comment: Elec tronically Signed By: EMMY JUDGE, Joe Guerra\.fani\Date and Time Signed: 03/30/24 14:56 EDT Outpatient Surgery Discharge Instructionon 03-30-2024 Outpatient Surgery Discharge Instruction [place] [id number] Patient Discharge Instructions PERSON INFORMATION Name: MALCOM [...] 911 Follow up: With: Address: When: BRIGIDA [address] [place] [id number] [facility] ([employer] In 6 weeks 05/11/2024 Comments: Call for followup appointment, with a bladder scan to check on bladder emptying. Type Location Start [facility] Medicare Wellness Subsequent [facility] 04/28/2024 1:00 PM 04/28/2024 2:00 PM Confirmed FM Open [facility] 04/28/2024 2:00 PM 04/28/2024 2:15 PM Confirmed [...] you have a fever over 100 degrees. I, MALCOM KNOWLES, have received the attached [...] to serve you. Thank you for choosing [facility] Normal [facility] Outpatient Surgery Discharge Instruction [id number] 34521#1.00TIFF Normal [facility] RAD - CT Reporton 03-30-2024 RAD - CT Report [id number] 60A3#1.00TIFF Normal [facility] Custodial Recordson 03-23 Custodial Records [id number] 2225#1.00TIFF Normal [facility] Custodial Records [id number] 2621#1.00TIFF Normal [facility] Custodial Records [id number] 7C34#1.00TIFF Normal [facility] Lab Reportson 03-20-2024 Lab Reports [id number] 2B09#1.00TIFF Normal [facility] Lab Reports [id number] 32AB#1.00TIFF Normal [facility] ED Note-Physicianon 03-19-20 ED Note-Physician [id number] 0A31#1.00TIFF Normal [facility] RAD - CT Reporton 03-19-2024 RAD - CT Report [id number] 3C87#1.00TIFF Normal [facility] RAD - MISCon 03-19-2024 RAD - MISC [id number] 56A6#1.00TIFF Normal [facility] RAD - MISC [id number] 5CB5#1.00TIFF Normal [facility] Lab Reportson 03-18-2024 Lab Reports [id number] 75DA#1.00TIFF Normal [facility] Lab Reports [id number] 0B8C#1.00TIFF Normal [facility] Custodial Recordson 03-18 Custodial Records [id number] 0CE3#1.00TIFF Normal [facility] Custodial Records [id number] 4C7D#1.00TIFF Normal [facility] Custodial Recordson 03-16 Custodial Records [id number] 1CD6#1.00TIFF Normal [facility] Retail - Clinical Noteon Retail - Clinical Note [id number] 5E6C#1.00TIFF Normal [facility] C-Peptideon 02-26-2024 C peptide [Mass/Vol] 2.3 ng/mL Invalid Interpretation Code 1.1-4.4 [facility] Comment on above: Result Comment: C-Pe ptide reference interval is for fasting patients. Performed at: [address] [id number] PhD Lisa Avery Performed By: #### 1 [id number], [id number] #### [facility] [address] [place] [address] Consultation Noteon 02-26-20 24 Consultation Note [id number] 066D#1.00TIFF Normal [facility] Consultation Note [id number] 5FAD#1.00TIFF Normal [facility] PTH Intacton 02-26-2024 Parathyrin.intact [Mass/Vol] 33 pg/mL Invalid Interpretation Code [facility] Comment on above: Result Comment: Perf ormed at: [facility] [address] [place], [place] [id number] PhD Lisa Avery Performed By: #### 1 [id number] #### [facility] [address] [place] [address] CBC w/ Auto DiffOrdered By: SYSTEM SYSTEM on 02-25-2024 Basophils/100 WBC (Bld) 0.5 % Normal 0.0-2.0 [facility] Comment on above: Performed By: #### 2 730382, 8071121, 6906121, 0544837, 54364479, 4225915, 3243770, 1738987, 2991947, 511012548, 35296537, 681117755, 2467482, 0207980 ####[facility] [address] [place] [address] Basophils/Leukocyt es Auto (Bld) [Pure # fraction] 0.0 E9/L Normal 0.0-0.2 [facility] Comment on above: Performed By: #### 2 516426, 9179530, 2416548, 7016241, 32470407, 2142724, 3974371, 3172558, 8870178, 799633972, 45929660, 226017373, 6574948, 7333624 ####[facility] [address] [place] [address] Eosinophils (Bld) [#/Vol] 0.4 E9/L Normal 0.0-0.5 [facility] Comment on above: Performed By: #### 2 648357, 1229250, 7914455, 5851391, 33390750, 6472597, 6115443, 9104980, 8383878, 397089981, 17213950, 385317712, 4133211, 8693346 ####[facility] [address] [address] Eosinophils/100 WBC (Bld) 6.1 % Normal 0.0-8.0 [facility] Comment on above: Performed By: #### 2 843746, 9106577, 3882749, 6038432, 75810591, 0744357, 1569964, 2245164, 2766132, 306704646, 90667033, 910661570, 2567053, 4767440 ####[facility] [address] [address] Erythrocyte distribution width (RBC) [Ratio] 13.9 % Normal 10.9-14.2 [facility] Comment on above: Performed By: #### 2 645982, 7480934, 9686242, 6354500, 14107399, 2158277, 9306421, 6156376, 6277554, 023142857, 72859515, 327681240, 2954515, 9694025 ####[facility] [address] [address] Hematocrit (Bld) [Volume fraction] 38.0 % Normal 34.0-46.0 [facility] Comment on above: Performed By: #### 2 099732, 2498432, 9122812, 6408367, 21026781, 5864700, 1141878, 2588930, 3985836, 602432594, 31760242, 561832721, 3506308, 0668463 ####[facility] [address] [place] [address] Hemoglobin (Bld) [Mass/Vol] 12.4 g/dL Normal 12.0-16.0 [facility] Comment on above: Performed By: #### 2 125454, 4838958, 3380546, 6805461, 29795457, 0617117, 2012911, 0530710, 9909495, 796736649, 76260883, 456422884, 5365636, 7053241 ####[facility] [address] [address] Lymphocytes (Bld) [#/Vol] 1.8 E9/L Normal 1.0-4.0 [facility] Comment on above: Performed By: #### 2 583912, 4675159, 7346442, 4497533, 92808854, 4493722, 9869423, 9823163, 9027075, 973357446, 91524849, 141419112, 9046061, 0575534 ####[facility] [address] [address] Lymphocytes/100 WBC (Bld) 29.8 % Normal 14.0-50.0 [facility] Comment on above: Performed By: #### 2 224078, 3128616, 7075770, 7161863, 73563594, 3282904, 4145742, 8998564, 0907147, 099336173, 74481848, 786179533, 6060544, 1646612 ####[facility] [address] [place] [address] MCH (RBC) [Entitic mass] 29.4 pg Normal 27.0-34.0 [facility] Comment on above: Performed By: #### 2 978334, 8253062, 4428290, 1949422, 05575464, 8786183, 9453049, 3506260, 4997994, 734924937, 22655386, 486576666, 4547451, 9558766 ####[facility] [address] [address] MCHC (RBC) [Mass/Vol] 32.6 g/dL Normal 31.4-36.0 [facility] Comment on above: Performed By: #### 2 133953, 3677848, 2213636, 5832395, 36544791, 1895215, 5917813, 1512034, 5633715, 824688467, 09955738, 980713571, 6325621, 4203451 ####[facility] [address] [address] MCV (RBC) [Entitic vol] 90.1 fL Normal 80.0-100.0 [facility] Comment on above: Performed By: #### 2 091358, 0842031, 8298698, 9711937, 06933504, 8130221, 9877370, 4142359, 1639098, 373889485, 81652358, 260432169, 0965340, 2240876 ####[facility] [address] [address] Monocytes (Bld) [#/Vol] 0.6 E9/L Normal 0.2-1.0 [facility] Comment on above: Performed By: #### 2 528874, 5728262, 3894636, 1355913, 31401439, 2281781, 2137226, 2591881, 1642157, 857518937, 02314418, 711586754, 3180018, 7662786 ####[address] [address] Neutrophils (Bld) [#/Vol] 3.3 E9/L Normal 2.0-7.5 [facility] Comment on above: Performed By: #### 2 100162, 2485702, 9527579, 6071196, 70045286, 1764430, 6820223, 5765635, 1496473, 192306218, 01969954, 450819498, 7024408, 2377623 ####[address] [place] [address] Neutrophils/100 WBC (Bld) 53.9 % Normal 36.0-75.0 [facility] Comment on above: Performed By: #### 2 432725, 4663952, 7902916, 8055754, 26058694, 3196986, 4069550, 3182584, 6657748, 784871316, 43171706, 874252208, 2738760, 7693509 ####[address] [address] Platelet 266.0 E9/L Normal 150.0-500.0 [facility] Comment on above: Performed By: #### 2 526533, 3698214, 6461703, 5423906, 36142898, 7132867, 6805700, 8749570, 3558291, 570047007, 18214711, 795570260, 6508749, 2830510 ####[facility] [address] [address] Platelet mean volume (Bld) [Entitic vol] 8.5 fL Normal 6.4-10.8 [facility] Comment on above: Performed By: #### 2 456637, 3177226, 0203689, 4648423, 17089518, 8330028, 9425629, 9993355, 8287085, 298316896, 49032533, 623915228, 5009420, 0763015 ####[address] [address] RBC (Bld) [#/Vol] 4.2 E12/L Low 4.3-5.9 [facility] Comment on above: Performed By: #### 2 454866, 4753453, 7717059, 8710086, 91671194, 1308066, 0055849, 5916712, 6295718, 000160071, 60048844, 741860268, 9079792, 9424398 ####[facility] [address] [place] [address] WBC corrected for nucl RBC Auto (Bld) [#/Vol] 6.1 E9/L Normal 4.0-11.0 [facility] Comment on above: Performed By: #### 2 536978, 6193148, 8194896, 0217234, 43270667, 8479648, 4845585, 5874064, 2101446, 576753779, 05188977, 884046829, 2172672, 7865145 ####[facility] [address] [place] [address] CHEMISTRYOrdered By: SYSTEM SYSTEM on 02-25-2024 25-hydroxyvitamin D3 [Mass/Vol] 44.1 ng/mL Normal 30.0 - 100.0 ng/mL [facility] Albumin [Mass/Vol] 3.9 g/dL Normal 3.3 - 5.0 gm/dL R emisol Chem Albumin DL <= 20 mg/L (U) [...] mg/g Cr is consistent with clinical nephropathy. Albumin/Globulin [Mass ratio] 1.1 {ratio} Normal 1.1 [...] Normal 1.3 - 2.4 mg/dL [facility] Potassium [Moles/Vol] 3.6 mmol/L Normal 3.5 - 5.3 mmol/L [facility] Protein [Mass/Vol] 7.3 g/dL Normal 6.0 - 7.8 gm/dL R emisol Chem Protein/Creatinine (U) [Ratio] 54.70 mg/gm Cr Normal 0.00 - 200.00 mg/gm Cr [facility] Sodium [Moles/Vol] 144 mmol/L Normal 135 - 145 mmol/L [facility] Transferrin [Mass/Vol] 218 mg/dL Normal 200 - 370 mg/dL [facility] Triglyceride [Mass/Vol] 114 mg/dL Normal <=149mg/dL [facility] U Creatinine 59.9 mg/dL Invalid Interpretation Code [facility] U Creatinine 60.2 mg/dL Invalid Interpretation Code [facility] Ur Total Protein 32.9 mg/dL Invalid Interpretation Code [facility] Urate (U) [Mass/Vol] 4.4 mg/dL Normal 2.2 - 7.4 mg/dL [facility] Urea nitrogen [Mass/Vol] 21 mg/dL Normal 5 - 21 mg/dL [facility] Urea nitrogen/Creatinin e [Mass ratio] 14 mg/mg Normal 10 - 20 [facility] CHEMISTRYOrdered By: Deana Patrick on 02-25-2024 HbA1c (Bld) [Mass fraction] 7.7 % High <=5.9% [facility] ChemAutoSS CMPon 02-25-2024 Albumin [Mass/Vol] 3.9 g/dL Normal 3.3-5.0 [facility] Comment on above: Performed By: #### 2 266247, 1548274, 8527924, 0386902, 21149799, 1939219, 0276510, 3580867, 4207486, 809024730, 41259796, 085577796, 3548078, 2753684 ####[facility] [address] [place] [address] Albumin/Globulin (S) [Mass conc ratio] 1.1 Normal 1.1-2.2 [facility] Comment on above: Performed By: #### 2 266518, 6514999, 3275084, 1023929, 53318043, 4172797, 9177228, 2820400, 6223888, 718563984, 40975460, 018047711, 6016757, 1067163 ####[facility] [address] [place] [address] ALP [Catalytic activity/Vol] 59 Int._Unit/L Normal 21-98 [facility] Comment on above: Performed By: #### 2 927359, 2571065, 7142683, 9412152, 74613882, 1710499, 4843988, 2599552, 6237802, 861240193, 03238472, 054073532, 5984600, 1272038 ####[facility] [address] [place] [address] ALT No additional P-5'-P [Catalytic activity/Vol] 20 Int._Unit/L Normal 6-46 [facility] Comment on above: Performed By: #### 2 041516, 2705732, 3473655, 6775706, 02744616, 5525630, 2662058, 8640981, 3098587, 037218680, 85966649, 791335586, 8099363, 6478166 ####[facility] [address] [place] [address] Anion gap [Moles/Vol] 12 mmol/L Normal 6-16 [facility] Comment on above: Performed By: #### 2 750290, 8952576, 1891346, 8079134, 94632279, 7986653, 8895170, 6634018, 0538312, 360106565, 71926598, 669674442, 1322767, 2582957 ####[facility] [address] [place] [address] AST [Catalytic activity/Vol] 20 Int._Unit/L Normal 5-43 [facility] Comment on above: Performed By: #### 2 726062, 6822443, 5227120, 7225656, 07268609, 7851984, 9286728, 1142316, 1647298, 746994993, 11404944, 147293942, 3513475, 6500430 ####[facility] [address] [place] [address] Bilirubin [Mass/Vol] 0.7 mg/dL Normal 0.0-1.1 [facility] Comment on above: Performed By: #### 2 759657, 7537232, 5292723, 8792115, 94384752, 1554028, 4470385, 9392433, 1597894, 191968380, 93377704, 101360334, 5863075, 8445351 ####[facility] [address] [place] [address] Calcium [Mass/Vol] 9.7 mg/dL Normal 8.9-11.1 [facility] Comment on above: Performed By: #### 2 783952, 3884849, 0342137, 7767364, 94070660, 7841919, 5521416, 8825562, 6677476, 054109256, 44956511, 139889738, 9079237, 2066856 ####[facility] [address] [place] [address] Chloride [Moles/Vol] 105 mmol/L Normal 101-111 [facility] Comment on above: Performed By: #### 2 886169, 0921319, 8138270, 4206292, 10016733, 3202655, 8400283, 5861952, 8806334, 574771472, 04798288, 936446739, 6643055, 8756088 ####[facility] [address] [place] [address] CO2 [Moles/Vol] 31 mmol/L Normal 21-31 [facility] Comment on above: Performed By: #### 2 075273, 6100746, 6063847, 3944158, 89013716, 3925914, 7234465, 9728096, 3832759, 879554321, 63723567, 270118057, 1520503, 6960034 ####[facility] [address] [place] [address] Creatinine [Mass/Vol] 1.5 mg/dL High 0.5-1.3 [facility] Comment on above: Performed By: #### 2 773946, 6530421, 9929321, 5626432, 19659708, 3240497, 1199012, 0325231, 7885284, 425967607, 81417377, 158078818, 1224216, 1209322 ####[facility] [address] [place] [address] Globulin (S) [Mass/Vol] 3.4 g/dL Normal 1.4-4.0 [facility] Comment on above: Performed By: #### 2 609059, 8835574, 1799153, 1348298, 22671870, 4758312, 8244976, 2053948, 8196697, 729461552, 68256197, 078129991, 8073926, 7388003 ####[facility] [address] [place] [address] Glucose [Mass/Vol] 93 mg/dL Normal 55-199 [facility] Comment on above: Performed By: #### 2 165335, 3638838, 6144615, 7055690, 27249030, 9987273, 3233505, 5569484, 8884827, 130351216, 14026544, 816547516, 7219220, 5579940 ####[facility] [address] [place] [address] Potassium [Moles/Vol] 3.6 mmol/L Normal 3.5-5.3 [facility] Comment on above: Performed By: #### 2 058788, 9110404, 3926709, 3567037, 62774562, 9215706, 6112173, 9000078, 5797071, 725661555, 12240822, 497574491, 3986741, 6069409 ####[facility] [address] [place] [address] Protein [Mass/Vol] 7.3 g/dL Normal 6.0-7.8 [facility] Comment on above: Performed By: #### 2 417863, 1317538, 0847594, 2291104, 36383362, 5395359, 9640186, 1685402, 6609486, 184136389, 37184263, 216719666, 9209791, 9667838 ####[facility] [address] [place] [address] Sodium [Moles/Vol] 144 mmol/L Normal 135-145 [facility] Comment on above: Performed By: #### 2 984600, 0775669, 3948772, 1922702, 78243160, 7277268, 9840918, 5329972, 5697019, 702230348, 56599019, 947381430, 2207002, 5136769 ####[facility] [address] [place] [address] Urea nitrogen [Mass/Vol] 21 mg/dL Normal 5-21 [facility] Comment on above: Performed By: #### 2 851634, 0352290, 3865147, 3520496, 73032891, 0973301, 3096592, 9678911, 3880370, 942448173, 98469623, 835176046, 0413211, 7569179 ####[address] [place] [address] Urea nitrogen/Creatinin e [Mass ratio] 14 No Units Normal 10-20 [facility] Comment on above: Performed By: #### 2 125638, 3502906, 6029114, 0644833, 13136823, 3297353, 6492313, 0672714, 6500710, 127844518, 45336828, 003664295, 6348235, 6169259 ####[address] [place] [address] Consent for Treatmenton 01-31 Consent for Treatment [id number] 1A56#1.00TIFF Normal [facility] Consent for Treatment [id number] 1C34#1.00TIFF Normal [facility] Ferritinon 02-25-2024 Ferritin [Mass/Vol] 69 ng/mL Normal 11-307 [facility] Comment on above: Performed By: #### 2 802871, 9513445, 8804858, 2221708, 84831420, 1872015, 4882124, 8248242, 9228291, 908314567, 34685614, 050775325, 3134853, 2741523 ####[facility] [address] [place] [address] Folateon 02-25-2024 Folate [Mass/Vol] ng/mL Normal >=6.7 [facility] Comment on above: Performed By: #### 2 969326, 3923354, 3633535, 1868853, 76261451, 0223623, 6920777, 6701128, 8624581, 585713087, 49299335, 358302000, 7686916, 4660906 ####[facility] [address] [place] [address] HEMATOLOGYOrdered By: SYSTEM SYSTEM on 02-25-2024 Monocytes/100 WBC (Bld) 9.7 % Normal 4.0 - 14.0 % [facility] LjmZ0yik 02-25-2024 HbA1c (Bld) [Mass fraction] 7.7 % High <=5.9 [facility] Comment on above: Performed By: #### 2 012788, 6390860, 1736895, 3570047, 20088991, 3381426, 2194250, 7718778, 3015665, 799035376, 85169728, 680416930, 7090146, 9910345 ####[facility] [address] [place] [address] Ironon 02-25-2024 Iron [Mass/Vol] 91 microgram/dL Normal 35-153 [facility] Comment on above: Performed By: #### 2 798223, 8475877, 7530169, 9903676, 42782169, 2517009, 7086325, 3115874, 2932584, 312071101, 36570985, 402169258, 5199703, 6286850 ####[facility] [address] [place] [address] Laboratory - Chemistry and C hemistry - challengeOrdered By: SYSTEM SYSTEM on 02-25-2024 Phosphate [Mass/Vol] 4.0 mg/dL Normal 1.9 - 4.6 mg/dL [facility] Lipid Panelon 02-25-2024 Cholesterol [Mass/Vol] 112 mg/dL Low 120-200 [facility] Comment on above: Performed By: #### 2 996246, 7509932, 9502472, 4065998, 49583839, 1063248, 4384565, 0564036, 0709169, 108328656, 63224480, 303946750, 4694332, 0542513 ####[facility] [address] [place] [address] Cholesterol in HDL [Mass/Vol] 41 mg/dL Invalid Interpretation Code [facility] Comment on above: Result Comment: '>= 60 LOW RISK' '<= 40 HIGH RISK' Performed By: #### 2 241165, 2885820, 6565953, 3994141, 83003380, 1974106, 3732801, 2211052, 9118224, 929296696, 03784823, 482622127, 7672752, 0878115 ####[facility] [address] [place] [address] Cholesterol in LDL [Mass/Vol] 53 mg/dL Normal <=129 [facility] Comment on above: Performed By: #### 2 422685, 3250352, 1648084, 7321109, 77209278, 9559956, 7670869, 6369033, 3473489, 623181266, 95133487, 078094205, 1252740, 9486831 ####[facility] [address] [place] [address] Cholesterol in VLDL [Mass/Vol] 23 mg/dL Normal 7-40 [facility] Comment on above: Performed By: #### 2 057950, 7108307, 9401032, 9103715, 74262921, 3408997, 8376705, 5420799, 7651539, 699039503, 05603357, 185015890, 8266627, 7227269 ####[facility] [address] [place] [address] Triglyceride [Mass/Vol] 114 mg/dL Normal <=149 [facility] Comment on above: Performed By: #### 2 466036, 7702196, 4846010, 2980489, 99959230, 2274736, 2425651, 3636714, 1313531, 480884243, 36627662, 544401059, 0073547, 8855450 ####[address] [place] [address] Magnesiumon 02-25-2024 Magnesium [Mass/Vol] 2.0 mg/dL Normal 1.3-2.4 [facility] Comment on above: Performed By: #### 2 214725, 3067722, 7466576, 6691252, 02968197, 9241162, 7863403, 7169368, 2312704, 089352224, 82615729, 205568800, 1407385, 8171739 ####[address] [place] [address] Phosphoruson 02-25-2024 Phosphate [Mass/Vol] 4.0 mg/dL Normal 1.9-4.6 [facility] Comment on above: Performed By: #### 1 6983414, 7554651 #### [facility] [address] [place] [address] [place] [address] Performed By: #### 2 750279, 7927221, 7231735, 2085965, 94680787, 2131360, 5087839, 8702250, 2188394, 959686008, 47898770, 278478232, 8316439, 0012630 ####[address] [place] [address] Physician Orderon 02-25-2024 Physician Order [id number] 8576#1.00TIFF Normal [facility] RAD - MISCon 02-25-2024 RAD - MISC [id number] 2E08#1.00TIFF Normal [facility] TIBC Calculatedon 02-25-2024 Iron binding capacity [Mass/Vol] 305 microgram/dL Normal 250-400 [facility] Comment on above: Performed By: #### 2 414215, 2292933, 9829581, 5669446, 13558562, 1258104, 7262182, 0234634, 7418571, 751374715, 89572199, 316778585, 3678469, 9349987 ####[facility] [address] [place] [address] Transferrin [Mass/Vol] 218 mg/dL Normal 200-370 [facility] Comment on above: Performed By: #### 2 856533, 9868443, 5085342, 4099179, 83695732, 3358501, 0430198, 5660111, 9104531, 847905678, 49574795, 771846331, 7196352, 7151706 ####[facility] [address] [place] [address] U MA/Cr Ratioon 02-25-2024 Albumin DL <= 20 mg/L (U) [Mass/Vol] 19.6 mg/dL High 0.0-1.9 [facility] Comment on above: Performed By: #### 1 [id number] #### [facility] [address] [place] [address] Albumin/Creatinine DL <= 20 mg/L (U) [Mass ratio] 327.2 mg/gm Cr High .0-30.0 [facility] Comment on above: Result Comment: 30-3 00 mg/g Cr indicates an increased risk for diabetic nephropathy. >300 mg/g Cr is consistent with clinical nephropathy. Performed By: #### 1 [id number] #### [facility] [address] [place] [address] U Creatinine 59.9 mg/dL Invalid Interpretation Code [facility] Comment on above: Performed By: #### 1 [id number] #### [facility] [address] [place] [address] U Microalbon 02-25-2024 Albumin DL <= 20 mg/L (U) [Mass/Vol] 20.2 mg/dL High 0.0-1.9 [facility] Comment on above: Performed By: #### 1 9690468, 2219425108, [id number] #### [facility] [address] [place] [address] U Protein/Creat Ratioon 01-31 Protein/Creatinine (U) [Ratio] 54.70 mg/gm Cr Normal .00-200.00 [facility] Comment on above: Performed By: #### 1 [id number], [id number], [id number] ####[facility] [address] [place] [address] U Creatinine 60.2 mg/dL Invalid Interpretation Code [facility] Comment on above: Performed By: #### 1 [id number], [id number], [id number] ####[facility] [address] [place] [address] Ur Total Protein 32.9 mg/dL Invalid Interpretation Code [facility] Comment on above: Performed By: #### 1 [id number], [id number], [id number] ####[facility] [address] [place] [address] URINALYSISOrdered By: SYSTEM SYSTEM on 02-25-2024 Color (U) Light-Yellow 1 (02/25/24 2:30 PM) Normal Yellow [facility] UA Auto SS Comment on above: Interpretive Data: M icroscopic readings are only performed on those samples that meet specific criteria set forth by [facility]. Glucose (U) [Mass/Vol] Negative Normal Negativemg/dL [facility] UA Auto SS Ketones Ql (U) Negative Normal Negativemg/dL [facility] UA Auto SS UA Blood Negative Normal Negativemg/dL [facility] UA Aut o SS UA Clarity Clear (02/25/24 2:30 PM) Normal Clear [facility] UA Auto SS UA Leuk Est Negative Normal NegativeLeu/uL FT UA A uto SS UA Nitrite Negative Normal Negativemg/dL FT UA Aut o SS UA pH 5.0 *NA* (02/25/24 2:30 PM) Invalid Interpretation Code 5.0 - 9.0 [facility] UA Auto SS UA Protein Trace mg/dL Invalid Interpretation Code Negativemg/dL FT UA Auto SS UA Spec Grav 1.014 *NA* (02/25/24 2:30 PM) Invalid Interpretation Code 1.005 - 1.030 [facility] UA Auto SS UA Urobilinogen Negative Normal Negativemg/dL [facility] U A Auto SS Urobilinogen (U) [Mass/Vol] Negative Normal Negativemg/dL [facility] UA Auto SS URINALYSISOrdered By: Mai Lui on 02-25-2024 UA Spec Desc Clean Catch (02/25/24 2:30 PM) Normal FT UA Auto SS Uric Acidon 02-25-2024 Urate (U) [Mass/Vol] 4.4 mg/dL Normal 2.2-7.4 [facility] Comment on above: Performed By: #### 2 [id number], [id number], [id number], [id number], [id number], [id number], [id number], [id number], [id number], [id number], [id number], [id number] ####[facility] [facility] [address] [place] [address] Urinalysis with Microon 01-31 Color (U) Light-Yellow Normal Yellow [facility] Comment on above: Result Comment: Micr oscopic readings are only performed on those samples that meet specific criteria set forth by [facility]. Performed By: #### 1 [id number], [id number], [id number] #### [facility] [address] [place] [address] Glucose (U) [Mass/Vol] Negative Normal Negative [facility] Comment on above: Performed By: #### 1 [id number], [id number], [id number] #### [facility] [address] [place] [address] Ketones Ql (U) Negative Normal Negative [facility] Comment on above: Performed By: #### 1 [id number], [id number], [id number] #### [facility] [address] [place] [address] UA Blood Negative Normal Negative [facility] Comment on above: Performed By: #### 1 [id number], [id number], [id number] #### [facility] [address] [place] [address] UA Clarity Clear Normal Clear [facility] Comment on above: Performed By: #### 1 [id number], [id number], [id number] #### [facility] [address] [place] [address] UA Leuk Est Negative Normal Negative [facility] Comment on above: Performed By: #### 1 [id number], [id number], [id number] #### [facility] [address] [place] [address] UA Nitrite Negative Normal Negative [facility] Comment on above: Performed By: #### 1 [id number], [id number], [id number] #### [facility] [address] [place] [address] UA pH 5.0 Invalid Interpretation Code 5.0-9.0 [facility] Comment on above: Performed By: #### 1 [id number], [id number], [id number] #### [facility] [address] [place] [address] UA Protein Trace Abnormal Negative [facility] Comment on above: Performed By: #### 1 [id number], [id number], [id number] #### [facility] [address] [place] [address] UA Spec Desc Clean Catch Normal [facility] Comment on above: Performed By: #### 1 [id number], [id number], [id number] #### [facility] [address] [place] [address] UA Spec Grav 1.014 Invalid Interpretation Code 1.005-1.030 [facility] Comment on above: Performed By: #### 1 [id number], [id number], [id number] #### [facility] [address] [place] [address] UA Urobilinogen Negative Normal Negative [facility] Comment on above: Performed By: #### 1 [id number], [id number], [id number] #### [facility] [address] [place] [address] Urobilinogen (U) [Mass/Vol] Negative Normal Negative [facility] Comment on above: Performed By: #### 1 [id number], [id number], [id number] #### [facility] [address] [place] [address] Vit B12on 02-25-2024 Cobalamin (Vitamin B12) [Mass/Vol] pg/mL Normal 50-1500 [facility] Comment on above: Performed By: #### 2 066779, 3236905, 3748541, 7071398, 01231791, 6897585, 9407075, 1668003, 5327773, [id number], 73912227, [id number], 2547247, 6521915 ####[facility] [address] [place] [address] Vitamin D 25 Hydroxyon 02-24 25-hydroxyvitamin D3 [Mass/Vol] 44.1 ng/mL Normal 30.0-100.0 [facility] Comment on above: Performed By: #### 2 910652, 9343919, 4783185, 6844275, 18003325, 8706598, 1850785, 0927175, 4791659, [id number], 27803107, [id number], 7269206, [id number] ####[facility] [address] [place] [address] eGFRon 02-25-2024 eGFR 37 mL/min/1.73 m2 Low >=59 [facility] Comment on above: Order Comment: Order added by Discern Expert. Performed By: #### 2 932191, 8105244, 4705092, 7768393, 01002765, 2670157, 0925011, 5229066, 4370583, 927229186, 25839734, [id number], 0797771, 8491645 ####[facility] [address] [place] [address] Ambulatory Visit Summaryon 0 02-24-2024 Ambulatory Visit [...] MD Primary Care Physician - Jose Snow MD. [...] Services Saturday 2:30 PM EDT With: Where: [facility] Saturday 1:00 PM EDT With: Where: [facility] [place] Normal [address] [place] [address]- \.br\ Medications\.br\ What How Much When Why [...] of Uterine cancer\.br\ HTN (hypertension)\.br\ Hx of Guillain-Nashua syndrome\.br\ Hypercholesterolemia\ .br\ Insulin long-term use\.br\ Major [...] for choosing us for your care.\.br\ \.br\ [facility] Automated urine specific gra vity by refractometryon 02-24-2024 Specific gravity Refractometry automated (U) [Rel density] 1.020 1.005-1.025 [facility] Bilirubin Auto test strip (U ) [Mass/Vol]on 02-24-2024 Bilirubin (U) [Mass/Vol] Negative NEGATIVE [facility] Color Auto (U)on 02-24-2024 Color (U) LT. YELLOW YELLOW [facility] Erythrocyte distribution wid th Auto (RBC) [Ratio]on 02-24-2024 Erythrocyte distribution width (RBC) [Ratio] 13.4 % 11.0-15.0 [facility] Estimated glomerular filtrat ion rate (GFR) non- Americanon 02-24-2024 GFR/1.73 sq M.predicted among non-blacks MDRD (S/P/Bld) [Vol rate/Area] 32 mL/min/{1.73_m2} >=60 [facility] Family Medicine Office/Clini c Noteon 02-24-2024 [...] Urine Most (more content not included)... Normal [facility] Comment on above: Result Comment: Elec tronically Signed By: Kaushal JUDGE, Jose Lau\.br\Date and Time Signed: 02/24/24 10:51 EDT Globulin Calc (S) [Mass/Vol] on 02-24-2024 Globulin (S) [Mass/Vol] 4.4 g/dL [facility] Hematocrit Auto (Bld) [Volum e fraction]on 02-24-2024 Hematocrit (Bld) [Volume fraction] 37.6 % 36.0-48.0 [facility] Hemoglobin [Mass/volume] in Bloodon 02-24-2024 Hemoglobin (Bld) [Mass/Vol] 12.0 g/dL 12.0-16.0 [facility] Iron binding capacity [Mass/ volume] in Serum or Plasmaon 02-24-2024 Iron binding capacity [Mass/Vol] 264.0 ug/dL 250.0-450.0 [facility] Iron saturation [Mass Fracti on] in Serum or Plasmaon 02-24-2024 Iron saturation [Mass fraction] 23.9 % [facility] Ketones Auto test strip (U) [Mass/Vol]on 02-24-2024 Ketones (U) [Mass/Vol] Negative NEGATIVE [facility] Laboratory - Chemistry and C hemistry - challengeon 02-24-2024 Albumin [Mass/Vol] 3.1 g/dL 3.4-5.0 [facility] ALP [Catalytic activity/Vol] 77 U/L 46-116 [facility] ALT [Catalytic activity/Vol] 35 U/L 14-59 [facility] AST [Catalytic activity/Vol] 23 U/L 15-37 [facility] Bilirubin [Mass/Vol] 0.5 mg/dL 0.2-1.0 [facility] Calcium [Mass/Vol] 9.3 mg/dL 8.5-10.1 [facility] Chloride [Moles/Vol] 105 mmol/L 98-107 [facility] CO2 [Moles/Vol] 31.9 mmol/L 21.0-32.0 [facility] Cobalamin (Vitamin B12) [Mass/Vol] 2977.0 pg/mL 193.0-986.0 [facility] Creatinine [Mass/Vol] 1.58 mg/dL 0.55-1.02 [facility] Ferritin [Mass/Vol] 117.0 ng/mL 8.0-252.0 [facility] GFR/1.73 sq M.predicted MDRD (S/P/Bld) [Vol rate/Area] 39 mL/min/{1.73_m2} >=60 [facility] Glucose [Mass/Vol] 101 mg/dL 74-106 [facility] Iron [Mass/Vol] 63.0 ug/dL 50.0-170.0 [facility] Magnesium [Mass/Vol] 1.9 mg/dL 1.8-2.4 [facility] Potassium [Moles/Vol] 3.9 mmol/L 3.5-5.1 [facility] Protein [Mass/Vol] 7.5 g/dL 6.4-8.2 [facility] Sodium [Moles/Vol] 145 mmol/L 136-145 [facility] Urate [Mass/Vol] 4.0 mg/dL 2.6-6.0 [facility] Urea nitrogen [Mass/Vol] 19.0 mg/dL 7.0-18.0 [facility] Urea nitrogen/Creatinin e [Mass ratio] 12.0 mg/mg [facility] Laboratory - Urinalysison Protein (U) [Mass/Vol] 25.8 mg/dL <=11.9 [facility] Leukocytes [#/volume] correc carmen for nucleated erythrocytes in Blood by Automated counon 02-24-2024 WBC corrected for nucl RBC Auto (Bld) [#/Vol] 7.5 10 3/uL 4.0-11.0 [facility] MCH Auto (RBC) [Entitic mass ]on 02-24-2024 MCH (RBC) [Entitic mass] 30.0 pg 26.7-34.0 [facility] MCHC Auto (RBC) [Mass/Vol]on 02-24-2024 MCHC (RBC) [Mass/Vol] 31.9 g/dL 29.9-35.2 [facility] MCV Auto (RBC) [Entitic vol] on 02-24-2024 MCV (RBC) [Entitic vol] 94.0 fL 81.0-99.0 [facility] No Panel Informationon 02-23 25-Hydroxy Vitamin D Total 50.0 ng/mL [facility] Comment on above: <20 ng/mL Vit D defi cient20-<30 ng/mL Vit D wwmimbbljcxi97-265 ng/mL Vit D sufficient>100 ng/mL Potential Toxicity Folate 25.10 ng/mL 8.60-58.90 [facility] Phosphorus Level 3.7 mg/dL 2.6-4.7 [facility] Urine Random Creatinine 42.67 mg/dL 20.00-300.00 [facility] Custodial Recordson 02-23 Custodial Records [id number]#1.00TIFF Normal [facility] Platelet mean volume Auto (B ld) [Entitic vol]on 02-24-2024 Platelet mean volume (Bld) [Entitic vol] 10.5 fL 9.5-13.5 [facility] Platelets Auto (Bld) [#/Vol] on 02-24-2024 Platelets (Bld) [#/Vol] 244 10 3/uL 150-450 [facility] Protein Auto test strip (U) [Mass/Vol]on 02-24-2024 Protein (U) [Mass/Vol] Negative NEG/TRACE [facility] RBC Auto (Bld) [#/Vol]on RBC (Bld) [#/Vol] 4.00 10 6/uL 4.20-5.40 [facility] Serum or plasma albumin/glob ulin mass ratioon 02-24-2024 Albumin/Globulin [Mass ratio] 0.7 {ratio} [facility] Serum or plasma anion gap de terminationon 02-24-2024 Anion gap [Moles/Vol] 12.0 mmol/L [facility] Specific gravity Auto test s trip (U) [Rel density]on 02-24-2024 Specific gravity (U) [Rel density] CLEAR CLEAR [facility] Urine glucose measurement by test strip (mass/volume)on 02-24-2024 Glucose Test strip (U) [Mass/Vol] Negative NEGATIVE [facility] Urine hemoglobin detection b y automated test stripon 02-24-2024 Hemoglobin Auto test strip Ql (U) SMALL NEGATIVE [facility] Urine nitrite detection by a utomated test stripon 02-24-2024 Nitrite Auto test strip Ql (U) Negative NEGATIVE [facility] Urine protein/creatinine rat ioon 02-24-2024 Protein/Creatinine (U) [Ratio] 0.60 [facility] Urobilinogen Auto test strip (U) [Mass/Vol]on 02-24-2024 Urobilinogen Qn (U) 0.2 {Torres'U}/dL 0.2-1.0 [facility] pH Auto test strip (U)on pH (U) 5.5 [pH] 5.0-9.0 [facility] ED Note-Physicianon 02-20-20 ED Note-Physician [id number]#1.00TIFF Normal [facility] Screenson 02-07-2024 Screens [id number]#1.00TIFF Normal [facility] Custodial Recordson 02-05 Custodial Records [id number]#1.00TIFF [facility] Living Will/POAon 02-05-2024 Living Will/POA [id number] 6860#1.00TIFF [facility] Custodial Recordson 02-04 Custodial Records [id number] 2E20#1.00TIFF [facility] Ambulatory Visit Summaryon 0 02-04-2024 Ambulatory Visit Summary MALCOM KNOWLES :1955 Visit Date:02/04/2024 Ambulatory Visit Instructions Your Care Team Attending Physician - BRIGIDA GRAHAM PA-C Primary Care Physician - Jose Snow MD Referring Physician - BRIGIDA GRAHAM PA-C This [...] AM EDT With: Jose Snow MD Where: [facility] Invalid Interpretation Code [address] [place] [address]- \.br\ Saturday 2:00 PM EDT \.br\ With: BRIGIDA GRAHAM PA-C\.br\ Where: [facility] Patient Educationon 02-04-20 Patient Education Obstetrics [...] health care provider. General instructions ? Take btwp-zwy-smetudq and prescription medicines only as told by [...] monitor yo (more content not included)... Normal [facility] Urology Office/Clinic Noteon 02-04-2024 Urology Office/Clinic [...] With When Contact Information [facility] [place] [address] Business (1) Additional Instructions: our cardiology consultants will be contacting you for follow-up Patient Education Overactive Bladder, Adult Problem List/Past Medical History Ongoing (Idiopathic) normal pressure hydrocephalus ASCVD (arteriosclerotic cardiovascular disease) Benign hypertension with chronic kidney disease BMI 50.0-59.9, adult CKD (chronic kidney disease) stage 3, GFR 30-59 ml/min Confusion Diabetic retinopathy Essential tremor Frequent falls Frequent UTI Gait disorder Gross hematuria History of Uterine cancer HTN (hypertension) Hx of Guillain-Nashua syndrome Hypercholesterolem ia Insulin long-term use Major [...] History of l (more content not included)... [facility] Comment on above: Result Comment: Elec tronically Signed By: FARTUN MCCOLLUM, BRIGIDA Seals\.br\Date and Time Signed: 02/04/24 12:37 EST Consultation Noteon 01-23-20 Consultation Note [id number]#1.00TIFF [facility] Custodial Recordson 01-17 Custodial Records [id number]#1.00TIFF [facility] Consultation Noteon 01-13-20 Consultation Note [id number]#1.00TIFF [facility] Consultation Note [id number]#1.00TIFF [facility] Custodial Recordson 01-01 Custodial Records [id number] [id number]#1.00TIFF [facility] Custodial Recordson 12-30 Custodial Records [id number]#1.00TIFF [facility] Custodial Recordson 12-25 Custodial Records [id number]#1.00TIFF Normal [facility] Consent for Procedure/Surger yon 12-23-2023 Consent for Procedure/Surgery [id number]#1.00TIFF Normal [facility] Consent for Treatmenton 12-03 Consent for Treatment [id number] 5FAE#1.00TIFF Normal [facility] Inpatient Patient Summaryon 12-23-2023 Inpatient Patient Summary [address] [address] Clinical Summary Person Information Name: MALCOM KNOWLES Age: 68 Years : 1955 Sex: Female PCP: Jose Snow MD Marital Status: Race: White Ethnicity: Non- or Language: Georgian Visit Id: Visit Reason: URINARY INCONTINENCE URETERAL STRICTURE RECURRENT UTI Speciality: Acuity: Enc Type: Outpatient Med Service: Surgery Arrival: 12/23/2023 14:07:21 Discharge: Dispo Type: Address: [address] [place] [id number] Provider Notes: Diagnosis: Problems Active (Idiopathic) normal pressure hydrocephalus Frequent falls Confusion Polyuria Urethral stricture UTI (urinary tract infection) UTI symptoms Gross hematuria Mixed incontinence Major depressive disorder with single episode, in full remission Stage 3b chronic kidney disease (CKD) Hx of Guillain-Nashua syndrome Morbid obesity Benign hypertension with chronic [...] 1 Table (more content not included)... Normal [facility] IntraOperative Documentson 0 12-23-2023 IntraOperative Documents [id number]#1.00TIFF Normal [facility] Main OR Intraoperative Recor don 12-23-2023 Main OR Intraoperative Record IntraOp Document Type FTURO Summary Primary Physician: Joe BOOTH MD Finalized Date/Time: 12/23/23 15:44:42 Pt. Name: MALCOM KNOWLES/Sex: 1955 Female Med Rec #: [id number] Physician: Joe BOOTH MD Financial #: [id number] Pt. Type: O Room/Bed: / Admit/Disch: 12/23/23 [...] Mini Braswell Role Performed Surgeon - Primary Manager Travel - Primary Scrub - Primary Time In 12/23/23 15:19:00 12/23/23 15:19:00 12/23/23 15:19:00 Time Out 12/23/23 15:39:00 12/23/23 15:39:00 12/23/23 15:39:00 Procedure CYSTOSCOPY LOCAL WITH CYSTOSCOPY LOCAL WITH CYSTOSCOPY LOCAL WITH URETHRAL DILATION(.) URETHRAL DILATION(.) URETHRAL DILATION(.) Comments Last Modified By: JOSE LUIS Zambrano RNOR, RAJESH Zambrano RN, Stocker RN, CNOR, Samaria 12/23/23 Samaria 12/23/23 Samaria 12/23/23 15:33:43 [...] RAJESH Zambrano RN, Ruthann 12/23/23 15:44 Normal [facility] Main OR Preoperative Recordo n 12-23-2023 Main OR Preoperative Record Holding Area Document Type FTURO Summary Primary Physician: Joe BOOTH MD Finalized Date/Time: 12/23/23 14:30:39 Pt. Name: MALCOM KNOWLES /Sex: 1955 Female Med Rec #: [id number] Physician: Joe BOOTH MD Financial #: [id number] Pt. Type: O Room/Bed: / Admit/Disch: 12/23/23 [...] By: Michelle Bedolla RN 12/23/23 14:30 Normal [facility] Operative Reporton Operative Report Patient: MALCOM KNOWLES [...] The Urethra is: Tight, Tight at 18 Cong[place]ese. The Bladder is: Normal, Trabeculated Moderate (2), No tumors, no stones. Moderate retained urine.. The ureteral orifices: Show efflux of clear urine. The Urethra was dilated to: 30 [place] w/ sounds. Devices Implanted: None. Removal: Cystoscope [...] available on her nursing facility formulary.. Normal [facility] Comment on above: Result Comment: Elec tronically Signed By: Joe BOOTH MD\.br\Date and Time Signed: 12/23/23 15:48 EST Outpatient Surgery Discharge Instructionon 12-23-2023 Outpatient Surgery Discharge Instruction [address] [address] Patient Discharge Instructions PERSON INFORMATION [...] Follow up: With: Address: When: BRIGIDA GRAHAM [address] [place] [phone] [facility] (1) Within 6 weeks Comments: Call for followup appointment, with a bladder scan for PVR at that visit. Monitor your urinary flow after the dilation of the channel today. Type Location Start Finish State URO Office Visit [facility] [place] 02/04/2024 11:20 AM 02/04/2024 11:35 AM Confirmed FM Open [facility] FM [place] 02/24/2024 10:15 AM 02/24/2024 10:25 AM Confirmed URO Office Visit [facility] [place] 03/03/2024 2:00 PM 03/03/2024 2:15 PM Confirmed [...] to serve you. Thank you for choosing [facility] Normal [facility] Custodial Recordson 12-17 Custodial Records [id number]#1.00TIFF Normal [facility] Ambulatory Visit Summaryon 0 12-16-2023 Ambulatory Visit Summary MALCOM KNOWLES :1955 Visit Date:12/16/2023 Ambulatory Visit Instructions Your Diagnosis UTI (urinary tract infection) Polyuria Confusion Frequent falls (Idiopathic) normal pressure hydrocephalus BMI 50.0-59.9, adult Tests Performed Urnls Dip Stick Non-Auto w/o Micrscpy POC 36579 Your Care Team Attending Physician - Mariangel [...] replacement, History of right total knee replacement, [facility] BSO - Total abdominal hysterectomy and bilateral salpingo-oophorect francisco. Discharge Vitals Heart Rate (Peripheral) 63 Blood Pressure 130/70 Height 160 cm Height 63 in Weight 130 kg Weight 286 lb BMI 50.78 What to do next Scheduled Follow-Up Appointments Saturday 11:00 AM EST With: Where: [facility] Saturday 3:00 PM EST With: Where: [facility] Saturday 10:15 AM EDT With: Kaushal JUDGE, Jose Lau Where: [facility] Normal [address] [place] [address] [place] [address]- \.br\ Medications\.br\ What How Much When Why Instructions\.br\ New hydrocortisone-pramox ine topical (Proctofoam HC rectal foam) 1 Application By rectum 3 times a day UTI (urinary tract infection) BMI 50.0-59.9, adult [facility]\.br\ Unchanged acetaminophen (acetaminophen 500 mg [...] a day Duration: 10 Days Pickup at [facility]\.br\ Unchanged nitroglycerin (nitroglycerin 0.4 mg sublingual Tab) [...] daily as needed \.br\ Pharmacy Information\.br\ [facility] [place]: [address] [place] [id number] [phone]\.br\ Test Results\.br\ Urnls Dip Stick Non-Auto w/o Micrscpy POC 71371 (12/16/2023)\.br\ Bilirubin Urine Dipstick - Negative\.br\ Blood Urine Dipstick - 3+ Large\.br\ Glucose Urine Dipstick - Negative\.br\ Ketones Urine Dipstick - Negative\.br\ Leukocytes Urine Dipstick - 2+ Moderate\.br\ Nitrite Urine Dipstick - Negative\.br\ Protein Urine Dipstick - 3+ (300 mg/dl)\.br\ Specific [place] Urine Dipstick - >=1.030\.br\ Urine Appearance Urine [...] of Uterine cancer\.br\ HTN (hypertension)\.br\ Hx of Guillain-Nashua syndrome\.br\ Hypercholesterolemia\ .br\ Insulin long-term use\.br\ Major depressive disorder with single episode, in full remission\.br\ Migraines\.br\ Mixed incontinence\.br\ Morbid obesity\.br\ Obesity\.br\ Polyuria\.br\ Stage 3b chronic kidney disease (CKD)\.br\ Type 2 diabetes mellitus with chronic kidney disease\.br\ Type 2 diabetes mellitus with hypercholesterolemia\ .br\ Urethral stricture\.br\ UTI (urinary tract infection)\.br\ UTI symptoms\.br\ Vitamin D deficiency\.br\ Donell Westfall [facility] Family Medicine Office/Clini c Noteon [...] let us know. [facility] for suspected hydrocephalus. Ordered: hydrocortisone-pra moxine topical, 1 teresa, Rectal, TID, 10 gram, Refill(s) 0, [facility] [place], 160, cm, 12/16/23 10:57:00 EST, Height/Length Dosing, 130, kg, 12/16/23 10:53:00 EST, Weight Dosing [facility] External Ambulatory Referral Urnls Dip Stick Non-Auto w/o Micrscpy POC 55334 2. Polyuria (R35.89: Other polyuria) pt has had worsening polyuria. was told by animal care supervisor and Dr. Snow to see neurology for suspected normotensive hydrocephalus due to all of her symptoms. will refer to [facility] Ordered: [facility] External Ambulatory Referral [facility] External Ambulatory Referral 3. Confusion (R41.0: Disorientation, unspecified) worsening confusion Ordered: [facility] External Ambulatory Referral [facility] External Ambulatory Referral 4. Frequent falls (R29.6: Repeated falls) pt has fallen 8 times in 3 weeks. daughter requesting referral to [facility] Ordered: [facility] External Ambulatory Referral [facility] External Ambulatory Referral 5. 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 will send referral to [facility]. was previously being see by Dr. Loredo in [place] Ordered: [facility] External Ambulatory Referral [facility] External Ambulatory Referral 6. BMI 50.0-59.9, adult (Z68.43: Body mass index [BMI] 50.0-59.9, adult) BMI education complete Ordered: hydrocortisone-pra moxine topical, 1 teresa, Rectal, TID, 10 gram, Refill(s) 0, [facility] [place], 160, cm, 12/16/23 10:57:00 EST, Height/Length Dosing, 130, kg, 12/16/23 10:53:00 EST, Weight Dosing Urnls Dip Stick Non-Auto w/o Micrscpy POC 34163 Orders: nitrofurantoin, 100 mg = 1 cap(s), Oral, BID, X 10 day(s), # 20 cap(s), Refills(s) 0, Pharmacy: [facility] [place], 160, cm, 12/16/23 10:57:00 EST, [...] of Uterine cancer HTN (hypertension) Hx of Guillain-Nashua syndrome Hypercholesterolem ia Insulin long-term use Major [...] mg= 1 tab (more content not included)... [facility] Comment on above: Result Comment: Elec tronically Signed By: Mariangel Peña\.br\Date and Time Signed: 12/16/23 12:09 EST Lab Reportson 12-16-2023 Lab Reports [id number]#1.00TIFF [facility] Lab Reports [id number]#1.00TIFF [facility] Physician Referralon 024 Physician Referral [id number]. [id number]#1.00TIFF [facility] Physician Referral [id number]. [id number]#1.00TIFF [facility] Custodial Recordson 12-09 Custodial Records [id number] [id number]#1.00TIFF [facility] Custodial Recordson 12-05 Custodial Records [id number] 1374#1.00TIFF [facility] Transfer Inon 12-04-2023 Transfer In [id number] 626D#1.00TIFF Normal [facility] Outside Mammographyon 2023 Outside Mammography [id number]#1.00TIFF [facility] RAD - Ultrasound Reporton RAD - Ultrasound Report [id number]#1.00TIFF [facility] Formson 11-22-2023 Forms [id number] 288E#1.00TIFF [facility] Custodial Recordson 11-22 Custodial Records [id number] 1988#1.00TIFF [facility] Physician Referralon 023 Physician Referral [id number]..[id number]#1.00TIFF [facility] Ambulatory Visit Summaryon 1 01-22-2023 Ambulatory Visit Summary MALCOM KNOWLES :1955 Visit Date:11/21/2023 Ambulatory Visit Instructions Your Diagnosis Mixed incontinence Gross hematuria UTI (urinary tract infection) Type 2 diabetes mellitus with chronic kidney disease Tests Performed Urnls Dip Stick Auto w/o Microscopy POC 30030 Your Care Team Attending Physician - FARTUN [...] EDT With: Kaushal JUDGE, Jose Lau Where: [facility] Guero Normal [address] [place] [place] [address]- \.br\ You Need to Schedule the Following Appointments\.br\ Follow Up with BRIGIDA GRAHAM PA-C, URL When: \.br\ Where:\.br\ [address]\.[place]\ [place] [address]\.br\ [id number]\.br\ Medications\.br\ What How Much When Why Instructions\.br\ [...] if questions or concerns \.br\ Unchanged zinc [facility] Custodial Recordson 11-213 Custodial Records [id number] 1ABA#1.00TIFF Normal [facility] Home Records [id number]#1.00TIFF Normal [facility] Patient Educationon 11-21-20 Patient Education Urology Urinary [...] nerve stimulation). ? For women, using a certified medical coding specialist to prevent urine leaks. This is [...] urine. ? (more content not included)... 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 Referral per Chip Mcmullen due to urinary incontinence. BUN 24, Creatinine 1.5 done 10/01/23 -[facility]. 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 Pt is here with her daughter (PORajni) today. Currently resides at [facility]. Ambulates via wheelchair. Renal fxn: 10/01/23 [...] and control BMs. Educational pamphlets provided. Ordered: 19742 Measure Post Void residual urine and/or bladder capacity by US- non-imaging Urnls Dip Stick Auto w/o Microscopy POC 73451 2. Urethral stricture (N35.919: Unspecified urethral stricture, [...] se OTC if available. -see #2 Ordered: 85327 Measure Post Void residual urine and/or bladder capacity by US- non-imaging Urnls Dip Stick Auto w/o Microscopy POC 03333 4. 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 Normal [facility] Comment on above: Result Comment: Elec [...] The patient received communication from the social and human services assistant, however, the social and human services assistant was uncertain about her responsibilities. The patient's [...] patient is under the care of an maintenance porter. Her glycemic levels have decreased. The next appointment with the maintenance porter is scheduled after a consultation with Dr. Zhu on 12/16/2023 for a 3-month follow-up. She is also under the care of an tender labor, an proof machine operator, and a retina specialist due to [...] She has previously expressed satisfaction with the penitentiary environment. She only receives Tylenol with her [...] No other con (more content not included)... [facility] Comment on above: Result Comment: Elec tronically Signed By: Jose Snow MD\.br\Date and Time Signed: 11/20/23 17:33 EST\.br\Electronically Co-Signed By: Rebekah Ferraro\.br\Date and Time Co-Signed: 11/20/23 17:13 EST Custodial Recordson 11-07 Custodial Records [id number]#1.00TIFF [facility] Home Health Recordson 2022 Home Health Records [id number]#1.00TIFF [facility] Home Health Recordson 2022 Home Health Records [id number]#1.00TIFF [facility] Outside Mammographyon 2022 Outside Mammography [id number] 004E#1.00TIFF [facility] Custodial Recordson 10-28 Custodial Records [id number] 114#1.00TIFF [facility] Interdisciplinary Note - Soc ial Workeron 10-16-2023 Interdisciplinary Note - Detective Sergeant This SW received a message regarding placement for patient at [facility] and daughter having questions. This SW made [...] that fantasma can stay in her current [place] apartment and that she does not have to move her to . SW's direct line was provided and SW encouraged her to reach out should she have needs or questions. SW will remain available. Normal [facility] Home Health Recordson 2022 Home Health Records [id number]#1.00TIFF Normal [facility] Auto DiffOrdered By: SYSTEM SYSTEM on 10-01-2023 Basophils/100 WBC (Bld) 1.0 % Normal 0.0-2.0 [facility] Comment on above: Order Comment: Order Added by Discern Expert. Performed By: #### 7 [id number], 72523587, 6302093, 2373160, 8600813, 6059495 ####[facility] [address] [place] [address] Basophils/Leukocyt es Auto (Bld) [Pure # fraction] 0.1 E9/L Normal 0.0-0.2 [facility] Comment on above: Order Comment: Order Added by Discern Expert. Performed By: #### 7 [id number], 03307171, 1671098, 3948088, 8259073, 9057786 ####[facility] [address] [place] [address] Eosinophils/100 WBC (Bld) 5.3 % Normal 0.0-8.0 [facility] Comment on above: Order Comment: Order Added by Discern Expert. Performed By: #### 7 03487664, 79167580, 7749660, 0780787, 9707299, 4267975 ####[facility] [address] [place] [address] Eosinophils/Leukoc ytes Auto (Bld) [Pure # fraction] 0.3 E9/L Normal 0.0-0.5 [facility] Comment on above: Order Comment: Order Added by José Luis Expert. Performed By: #### 7 [id number], 75355065, 5953889, 0838482, 8070423, 9748703 ####[address] [address] Lymphocytes/100 WBC (Bld) 37.2 % Normal 14.0-50.0 [facility] Comment on above: Order Comment: Order Added by Discern Expert. Performed By: #### 7 89453241, 95225055, 9241861, 3724206, 3557254, 4035766 ####[address] [address] Lymphocytes/Leukoc ytes Auto (Bld) [Pure # fraction] 2.0 E9/L Normal 1.0-4.0 [facility] Comment on above: Order Comment: Order Added by José Luis Expert. Performed By: #### 7 03862235, 57045727, 7911805, 8136374, 5952197, 4320406 ####[address] [address] Monocytes/100 WBC (Bld) 10.7 % Normal 4.0-14.0 [facility] Comment on above: Order Comment: Order Added by José Luis Expert. Performed By: #### 7 02982247, 94889196, 7983644, 1525181, 3749082, 8684461 ####[address] [address] Monocytes/Leukocyt es Auto (Bld) [Pure # fraction] 0.6 E9/L Normal 0.2-1.0 [facility] Comment on above: Order Comment: Order Added by José Luis Expert. Performed By: #### 7 78617208, 47980379, 8039229, 7637179, 2380146, 4557977 ####[address] [address] Neutrophils/100 WBC (Bld) 45.8 % Normal 36.0-75.0 [facility] Comment on above: Order Comment: Order Added by Discern Expert. Performed By: #### 7 73075829, 29592715, 3298252, 9795587, 4396260, 7196279 ####[address] [place] [address] Neutrophils/Leukoc ytes Auto (Bld) [Pure # fraction] 2.5 E9/L Normal 2.0-7.5 [facility] Comment on above: Order Comment: Order Added by Discern Expert. Performed By: #### 7 55477818, 23853091, 7618096, 9500763, 0581736, 8349831 ####[address] [address] CBC w/ Auto DiffOrdered By: Yamilet Peralta on 10-01-2023 Erythrocyte distribution width (RBC) [Ratio] 15.1 % High 10.9-14.[address] [facility] Comment on above: Performed By: #### 7 85477386, 89665142, 1587397, 5398683, 6441105, 7429067 ####[address] [address] Hematocrit (Bld) [Volume fraction] 39.1 % Normal 34.0-46.[address] [facility] Comment on above: Performed By: #### 7 79840567, 64184742, 4581368, 0159701, 5357890, 6528291 ####[address] [address] Hemoglobin (Bld) [Mass/Vol] 13.1 g/dL Normal 12.0-16.[address] [facility] Comment on above: Performed By: #### 7 37011390, 03441533, 5053059, 2779481, 8040168, 7359366 ####[address] [place] [address] MCH (RBC) [Entitic mass] 30.8 pg Normal 27.0-34.[address] [facility] Comment on above: Performed By: #### 7 59086140, 29192190, 3921492, 2855034, 9241594, 5072218 ####[facility] [address] [place] [address] MCHC (RBC) [Mass/Vol] 33.5 g/dL Normal 31.4-36.[address] [facility] Comment on above: Performed By: #### 7 24237342, 90870778, 8804833, 0785294, 3296922, 0518096 ####[facility] [address] MCV (RBC) [Entitic vol] 92.0 fL Normal 80.0-100.[address] [facility] Comment on above: Performed By: #### 7 57546478, 83532607, 2299108, 1702807, 1732327, 6969352 ####[facility] [address] [address] Platelet mean volume (Bld) [Entitic vol] 9.2 fL Normal 6.4-10.[address] [facility] Comment on above: Performed By: #### 7 24826166, 75610266, 8640802, 8263523, 7224320, 0264289 ####[place] [address] Platelets (Bld) [#/Vol] 205.0 E9/L Normal 150.0-500.[address] [facility] Comment on above: Performed By: #### 7 44899999, 57981099, 0565058, 4432020, 8609877, 0417626 ####[facility] [address] [address] RBC (Bld) [#/Vol] 4.2 E12/L Low 4.3-5.9 [facility] Comment on above: Performed By: #### 7 69060016, 53503033, 6618442, 6171702, 2778160, 5265698 ####[facility] [address] [address] WBC corrected for nucl RBC Auto (Bld) [#/Vol] 5.4 E9/L Normal 4.0-11.0 [facility] Comment on above: Performed By: #### 7 59521807, 10745212, 8091558, 6617084, 8665241, 4889217 ####[facility] [address] [place] [address] CHEMISTRYOrdered By: Peace guillaume on 10-01-2023 Albumin DL <= 20 mg/L (U) [Mass/Vol] 9.9 microgram/mL Normal 0.0 - 19.0 mcg/mL [facility] Albumin Elph (U) [Mass fraction] mg/dL Invalid Interpretation Code [facility] Comment on above: Interpretive Data: T he reference range and other method performance specifications have not been established for this test; results should be integrated into the clinical context for interpretation. Creatinine (U) [Mass/Vol] 28.4 mg/dL Invalid Interpretation Code [facility] Remisol Comment on above: Interpretive Data: T he reference range and other method performance specifications have not been established for this test; results should be integrated into the clinical context for interpretation. U Prot/Creat Ratio [facility] Invalid Interpretation Code 0.00 - 200.[address] [facility] Remisol CHEMISTRYOrdered By: SYSTEM SYSTEM on 10-01-2023 Albumin/Globulin [Mass ratio] 1.1 {ratio} Normal 1.1 - 2.2 [facility] ALP [Catalytic activity/Vol] 61 [iU]/d Normal 21 - 98 Int._Unit/L [facility] ALT No additional P-5'-P [Catalytic activity/Vol] 26 [iU]/d Normal 6 - 46 Int._Unit/L [facility] AST [Catalytic activity/Vol] 31 [iU]/d Normal 5 - 43 Int._Unit/L [facility] Urea nitrogen/Creatinin e [Mass ratio] 16 mg/mg Normal 10 - 20 [facility] CHEMISTRYOrdered By: Denisha Carlin on 10-01-2023 HbA1c (Bld) [Mass fraction] 8.2 % High <=5.9% [facility] ChemAutoSS CMPOrdered By: SYSTEM SYSTEM on 10-01-2023 Albumin [Mass/Vol] 3.8 g/dL Normal 3.3-5.[address] [facility] R emisol Comment on above: Performed By: #### 7 71805946, 55779499, 8495224, 9193603, 8346786, 3020416 ####[facility] [address] [place] [address] Anion gap [Moles/Vol] 10 mmol/L Normal 6-16 [facility] Comment on above: Performed By: #### 7 44057536, 49157570, 2890257, 0732811, 3015893, 1785631 ####[facility] [address] [place] [address] Bilirubin [Mass/Vol] 1.1 mg/dL Normal 0.0-1.[address] [facility] Remisol Comment on above: Performed By: #### 7 53519686, 54173787, 8474687, 9808421, 5587828, 3148065 ####[facility] [address] [address] Calcium [Mass/Vol] 9.4 mg/dL Normal 8.9-11.[address] [facility] R emisol Comment on above: Performed By: #### 7 38172296, 77343398, 1254022, 4468502, 7205260, 4046496 ####[address] [place] [address] Chloride [Moles/Vol] 104 mmol/L Normal 101-111 [facility] Comment on above: Performed By: #### 7 99008997, 16015807, 3958599, 6130637, 1962971, 3925466 ####[facility] [address] [place] [address] CO2 [Moles/Vol] 30 mmol/L Normal 21-31 FT Fidel sherry Comment on above: Performed By: #### 7 68901760, 80250545, 6307134, 1201399, 6308167, 7107649 ####[facility] [address] [place] [address] Creatinine [Mass/Vol] 1.5 mg/dL High 0.5-1.3 [facility] Comment on above: Performed By: #### 7 69483880, 78744942, 9558178, 8538029, 7936885, 9806706 ####[facility] [address] [place] [address] Globulin (S) [Mass/Vol] 3.6 g/dL Normal 1.4-4.[address] [facility] Remisol Comment on above: Performed By: #### 7 21609331, 50795403, 3923312, 7345771, 1079760, 1142148 ####[facility] [address] [place] [address] Glucose [Mass/Vol] 176 mg/dL Normal 55-[address] [facility] R emisol Comment on above: Interpretive Data: I f this glucose result represents a fasting glucose, interpretation should refer to the following reference range: 55-99 mg/dL Result Comment: If t his glucose result represents a fasting glucose, interpretation should refer to the following reference range: 55-99 mg/dL Performed By: #### 7 12460027, 85365454, 6288903, 9356702, 6260606, 8131694 ####[facility] [address] [place] [address] Potassium [Moles/Vol] 3.7 mmol/L Normal 3.5-5.[address] [facility] Remisol Comment on above: Performed By: #### 7 60646919, 53132036, 2526486, 1969098, 0494138, 8494684 ####[facility] [address] [place] [address] Protein [Mass/Vol] 7.4 g/dL Normal 6.0-7.[address] [facility] R emisol Comment on above: Performed By: #### 7 49287543, 91753650, 1533272, 4265876, 8874657, 0157882 ####[facility] [address] [place] [address] Sodium [Moles/Vol] 140 mmol/L Normal 135-[address] [facility] R emisol Comment on above: Performed By: #### 7 87888067, 44262286, 8611782, 4486957, 8650730, 0688807 ####[facility] [address] [place] [address] Urea nitrogen [Mass/Vol] 24 mg/dL High 5-[address] [facility] Remisol Comment on above: Performed By: #### 7 56982454, 20854393, 6137430, 7405845, 6275079, 7906056 ####[facility] [address] [place] [address] CMPon 10-01-2023 Albumin/Globulin (S) [Mass conc ratio] 1.1 Normal 1.1-2.2 [facility] Comment on above: Performed By: #### 7 65293163, 59789954, 3268480, 9030021, 4795133, 2377260 ####[facility] [address] [place] [address] ALP [Catalytic activity/Vol] 61 Int._Unit/L Normal 21-98 [facility] Comment on above: Performed By: #### 7 90022912, 76557844, 5047955, 6412827, 5333304, 9879581 ####[facility] [address] [place] [address] ALT No additional P-5'-P [Catalytic activity/Vol] 26 Int._Unit/L Normal 6-46 [facility] Comment on above: Performed By: #### 7 94811332, 98473239, 9844292, 2900634, 4993481, 3090649 ####[facility] [address] [place] [address] AST [Catalytic activity/Vol] 31 Int._Unit/L Normal 5-43 [facility] Comment on above: Performed By: #### 7 42972718, 01327188, 1094944, 7286766, 8351881, 2733970 ####[facility] [address] [place] [address] Urea nitrogen/Creatinin e [Mass ratio] 16 No Units Normal 10-20 [facility] Comment on above: Performed By: #### 7 72696115, 78051818, 6200323, 7040102, 5116289, 3787277 ####[facility] [address] [place] [address] Consent for Treatmenton 09-03 Consent for Treatment [id number]#1.00TIFF Normal [facility] CdqJ1iid 10-01-2023 HbA1c (Bld) [Mass fraction] 8.2 % High <=5.9 [facility] Comment on above: Performed By: #### 7 19069112, 58295014, 0884939, 6578314, 3351523, 4319586 ####[facility] [address] [place] [address] Lipid PanelOrdered By: adicate timeads on 10-01-2023 Cholesterol [Mass/Vol] 127 mg/dL Normal 120-[address] [facility] Remisol Comment on above: Performed By: #### 7 07368405, 47680063, 3679131, 8349255, 8193677, 7567091 ####[facility] [address] [place] [address] Cholesterol in HDL [Mass/Vol] 58 mg/dL Invalid Interpretation Code [facility] Remisol Comment on above: Interpretive Data: H DL > or equal to 60 mg/dL: Low cardiovascular risk HDL < 40 mg/dL : High cardiovascular risk Result Comment: HDL > or equal to 60 mg/dL: Low cardiovascular risk HDL < 40 mg/dL : High cardiovascular risk Performed By: #### 7 85220388, 77695193, 7941481, 6061334, 7121994, 2133240 ####[facility] [address] [place] [address] Cholesterol in LDL [Mass/Vol] 58 mg/dL Normal <=[address] [facility] Remisol Comment on above: Performed By: #### 7 93388662, 26539920, 2244542, 5275258, 7875189, 3012174 ####[facility] [address] [place] [address] Cholesterol in VLDL [Mass/Vol] 15 mg/dL Normal 7-[address] [facility] Remisol Comment on above: Performed By: #### 7 41433960, 93785917, 3969280, 6086607, 6983593, 9635763 ####[facility] [address] [place] [address] Triglyceride [Mass/Vol] 77 mg/dL Normal <=[address] [facility] Remisol Comment on above: Performed By: #### 7 15662175, 78053182, 9880413, 2111705, 7953902, 8711344 ####[facility] [address] [place] [address] Retail - Clinical Noteon Retail - Clinical Note [id number] 4633#1.00TIFF Normal [facility] U Microalbon 10-01-2023 Albumin DL <= 20 mg/L (U) [Mass/Vol] 9.9 microgram/mL Normal 0.0-19.0 [facility] Comment on above: Performed By: #### 1 4974350, 7323490988 ####[facility] [address] [place] [address] U Protein/Creat Ratioon 09-03 Albumin Elph (U) [Mass fraction] <6.0 Invalid Interpretation Code [facility] Comment on above: Result Comment: The reference range and other method performance specifications have not been established for this test; results should be integrated into the clinical context for interpretation. Performed By: #### 1 8674693, [id number] ####[facility] [address] [place] [address] Creatinine (U) [Mass/Vol] 28.4 mg/dL Invalid Interpretation Code [facility] Comment on above: Result Comment: The reference range and other method performance specifications have not been established for this test; results should be integrated into the clinical context for interpretation. Performed By: #### 1 0270080, 1461935224 ####[facility] [address] [place] [address] U Prot/Creat Ratio [facility] Invalid Interpretation Code .00200.00 [facility] Comment on above: Performed By: #### 1 0299939, [id number] ####[facility] [address] [place] [address] eGFROrdered By: MICHELLE Dhillon on 10-01-2023 GFR/1.73 sq M.predicted among non-blacks MDRD (S/P/Bld) [Vol rate/Area] 37 mL/min/1.73 m2 Low >=[address] [facility] Chem S Comment on above: Interpretive Data: C hronic kidney disease could be indicated at eGFR's of less than 60 mL/min/1.73m2. Kidney failure is indicated at less than 15 mL/min/1.73m2. Order Comment: Order added by Discern Expert. Result Comment: Equipment Operation Instructor maco kidney disease could be indicated at eGFR's of less than 60 mL/min/1.73m2. Kidney failure is indicated at less than 15 mL/min/1.73m2. Performed By: #### 7 83410457, 88780810, 8704279, 4300343, 1119418, 6330355 ####[facility] [address] [place] [address] Interdisciplinary Note - Soc ial Workeron 09-23-2023 Interdisciplinary Note - Detective Sergeant Consult received d/t pt's dx of DM. Patient requires bariatric equipment. Upon review of chart notes, patient resides at [facility]. Patient has been evaluated by [facility] for an appropriate wheelchair. If further needs, or DME are required conversation with staff at [facility] should be had for appropriate planning and continuity of care. SW will remain available. Normal [facility] Retail - Clinical Noteon Retail - Clinical Note [id number] 3082#1.00TIFF Normal [facility] Consultation Noteon 09-18-20 Consultation Note [id number] [id number]#1.00TIFF Normal [facility] Family Medicine Office/Clini c Noteon 09-17-2023 Family Medicine Office/Clinic Note HPI Staff Malcom is a 67 year old female [facility] Needs a face to [...] was in an assisted living facility in [place] where she received intensive physical therapy. However, [...] to 6500 g a month and other dmee-xct-nrordoy medications. However, the daughter states that this is not sustainable and is considering finding a cheaper living arrangement or moving the patient to a penitentiary. She has expressed interest in losing weight. [...] as before. 4. Insulin long-term use (Z79.4: long term care pharmacist (current) use of insulin) Discussed the need of having the patient increase the medication, but we will have Dr. Zhu adjust the medication. 5. BMI 50.0-59.9, adult (Z68.43: Body mass index [BMI] 50.0-59.9, adult) 6. Morbid obesi (more content not included)... Normal [facility] Comment on above: Result Comment: Elec tronically Signed By: Jose Snow MD\.br\Date and Time Signed: 09/17/23 07:26 EDT\.br\Electronically Co-Signed By: Romana Crouch\.br\Date and Time Co-Signed: 09/09/23 18:25 EDT Custodial Recordson 09-11 Custodial Records [id number]#1.00TIFF [facility] Ambulatory Visit Summaryon 1 Ambulatory [...] stage 3, GFR 30-59 ml/min Hx of Guillain-Nashua syndrome Gait disorder History of Uterine cancer [...] Follow-Up Appointments 2022 10:30 AM EST With: FARTUN MCCOLLUM, BRIGIDA Seals Where: [facility] Caity Invalid Interpretation Code Type 2 diabetes mellitus with hypercholesterolemia [facility] Pre-Visit Planningon 023 Pre-Visit Planning --- From: [...] BMI of 52.32 on 07/15/2023. The [place] [employer] defines obesity as morbid if [...] feel free to contact me at extension [phone]. Thank you! Luann Lazo, SHAHANAN, RN, CCM, CCDS, CCDS-O Invalid Interpretation Code [address] [facility] Pre-Visit Planning --- From: [place] DE [place]OS Luann To: Kaushal JUDGE, Jose Lau; Sent: 09/06/2023 10:38:47 EDT Subject: Pre-Visit Planning Due Date/Time: 09/06/2023 10:38:00 EDT Caller Name: MALCOM KNOWLES; Caller Number: Shawn , Jacquie Hi Dr. Snow, *Based on your response [...] feel free to contact me at extension [phone]. Thank you! Luann Lazo, SHAHANAN, RN, CCM, CCDS, CCDS-O Invalid Interpretation Code [address] [facility] Custodial Recordson 09-04 Custodial Records [id number]#1.00CD:127 Normal [facility] Custodial Recordson 09-03 Custodial Records [id number]#1.00CD:127 Normal [facility] Custodial Recordson 09-02 Custodial Records [id number]#1.00CD:127 Normal [facility] Family Medicine Office/Clini c Noteon 08-23-2023 Family [...] basaglar to 12 untis. will refer to maintenance porter. daughter will call with where she wants [...] and treat better fitting wheel chair, Supply [facility] External Ambulatory Referral 2. BMI 50.0-59.9, adult (Z68.43: Body mass index [BMI] 50.0-59.9, adult) BMI education complete Ordered: [facility] External Ambulatory Referral 3. Non-smoker (Z78.9: Other specified health status) continue not smoking Ordered: [facility] External Ambulatory Referral long term care pharmacist (current) use of insulin (Z79.4: long term care pharmacist (current) use of insulin) referral to maintenance porter will be sent Ordered: [facility] External Ambulatory Referral Follow-up No qualifying data [...] Immunizations Vaccine Date Status Comments SARS-CoV-2 (COVID-19) mRNAMUL.[id number] 09/13/2022 R (more content not included)... [facility] Comment on above: Result Comment: Elec tronically Signed By: Mariangel Peña\.br\Date and Time Signed: 08/23/23 09:36 EDT Custodial Recordson 08-21 Custodial Records [id number] [id number]#1.00CD:127 [facility] Custodial Recordson 08-20 Custodial Records [id number]#1.00CD:127 [facility] Custodial Recordson 08-15 Custodial Records [id number]#1.00CD:127 [facility] Retail - Clinical Noteon Retail - Clinical Note [id number]#1.00CD:127 [facility] Urine Cultureon 07-28-2023 Bacteria identified Cx Nom (U) <9,000 colonies/ml mixed bacterial skin contaminants 2 Days PERFORMED BY: [place] [address] PATHOLOGIST OFFLINE EDITOR SUZY FLORES M.D. [facility] Comment on above: Performed By: #### C UU #### [address] Physician Referralon 023 Physician Referral [id number]#1.00CD:127 [facility] Custodial Recordson 07-23 Custodial Records [id number]#1.00CD:127 [facility] Custodial Recordson 07-18 Custodial Records [id number]#1.00CD:127 [facility] Custodial Records [id number]#1.00CD:127 [facility] Retail - Clinical Noteon Retail - Clinical Note [id number]#1.00CD:127 [facility] Custodial Recordson 07-16 Custodial Records [id number]#1.00CD:127 [facility] Physician Referralon 023 Physician Referral [id number]. [id number]#1.00CD:127 [facility] Retail - Clinical Noteon Retail - Clinical Note [id number]#1.00CD:127 [facility] Ambulatory Visit Summaryon 0 07-15-2023 Ambulatory Visit Summary MARJJUANPABLO CHESTERIA :1955 Visit Date:07/15/2023 Ambulatory Visit Instructions Your Diagnosis Insulin dependent type 2 diabetes mellitus BMI 50.0-59.9, adult Non-smoker assisted (current) use of insulin Your Care Team [...] EDT With: Kaushal JUDGE, Jose Lau Where: [facility] [address] [id number]- \.br\ Medications\.br\ What How Much When Why [...] Unchanged memantine (memantine 10 mg Tab)\.br\ [facility] Prescription) See instructions BD ultra fine [...] mellitus\.br\ Obesity\.br\ UTI (urinary tract infection)\.br\ \.br\ [facility] Patient Correspondenceon Patient Correspondence [id number]#1.00CD:127 Normal [facility] XR shoulder LT min 2V*on XR shoulder LT min 2V* [address] [address] XRay Report Signed Patient: Malcom Knowles MR#: [id number] : 1955 Acct:[id number] Age/Sex: 67 / F ADM Date: 07/01/23 Loc: [facility] Room: Type: [facility] Attending Dr: Lizandro Martins MD Copies to: [...] Aj Baker M.D.07/01/2023 2:36 PM Dictation Location: [place] [address] Transcribed By: [facility] 07/01/23 1436 Dictated By: Aj Baker II, MD 07/01/23 1434 Signed By: 07/01/[address] [facility] XR shoulder LT min 2V* [facility] [employer] for iPhone and Android Other XR shoulder LT min 2V* [facility] [employer] for iPhone and Android Other XR shoulder LT min 2V* [address] [place] [address] [employer] for iPhone and Android Other XR shoulder LT min 2V* [address] [employer] for iPhone and Android Other XR shoulder LT min 2V* XRay Report [facility] Other XR shoulder LT min 2V* Signed [facility] Other XR shoulder LT min 2V* Patient: Malcom Knowles MR#: [id number] [facility] Other XR shoulder LT min 2V* [id number] [facility] Other XR shoulder LT min 2V* : 1955 Acct:[id number] [facility] Other XR shoulder LT min 2V* Age/Sex: 67 / F ADM Date: 07/01/23 [facility] Other XR shoulder LT min 2V* Loc: [facility] Room: Type: [facility] Other XR shoulder LT min 2V* Attending Dr: Lizandro Martins MD [facility] Other XR shoulder LT min 2V* Copies to: Lizandro Martins MD [facility] Other XR shoulder LT min 2V* Ordering Provider: Lizandro Martins MD [facility] Other XR shoulder LT min 2V* Date of Service: 07/01/23 [facility] Other XR shoulder LT min 2V* XR/XR shoulder LT min 2V*: Acute pain of left shoulder [facility] Other XR shoulder LT min 2V* XR shoulder LT min 2V* 07/01/2023 11:10 AM [facility] Other XR shoulder LT min 2V* SIGNS AND SYMPTOMS: Left shoulder pain with decreased range of motion [facility] Other XR shoulder LT min 2V* PROTOCOL: Frontal, Grashey, scapular Y views of the left shoulder [facility] Other XR shoulder LT min 2V* COMPARISON: None [facility] Other XR shoulder LT min 2V* FINDINGS: [facility] Other XR shoulder LT min 2V* There is mild hypertrophy of the acromioclavicular joint. There is narrowing of the glenohumeral [facility] Other XR shoulder LT min 2V* joint. There is no fracture or dislocation. The visualized left hemithorax is grossly intact. [facility] Other XR shoulder LT min 2V* XR/XR shoulder LT min 2V* [facility] Other XR shoulder LT min 2V* IMPRESSION: [facility] Other XR shoulder LT min 2V* No fracture or dislocation. [facility] Other XR shoulder LT min 2V* Degenerative changes are noted in the left shoulder, as above. [facility] Other XR shoulder LT min 2V* Impression dictated by: Aj Baker M.D.07/01/2023 2:36 PM [facility] Other XR shoulder LT min 2V* Dictation Location: [place] [address] [facility] Other XR shoulder LT min 2V* Transcribed By: FLORES 07/01/23 [facility] Other XR shoulder LT min 2V* Dictated By: Aj Baker II, MD 07/01/23 [facility] Other XR shoulder LT min 2V* Signed By: [facility] Other XR shoulder LT min 2V* 07/01/23 [facility] Other ECHOCARDIO M/2D COMPLETEon 0 05-01-2023 ECHOCARDIO M/2D COMPLETE Patient: MALCOM KNOWLES Exam Date: 05/01/2023 : 1955 Gender:F Ordering : DR. AJ YOUNG M.D. Admission #: [id number] Family : Order #: [id number] CLICK HERE TO VIEW EXAM ECHOCARDIOGRAM REPORT [...] Franco M.D. on 05/01/2023 at 18:18 Normal [facility] Office Visit (Cardiology)on 04-04-2023 Follow-up visit Diagnoses/Problems [...] Weight Tips; Status:Complete - Retrospective Authorization; Done: [id number] Some eating tips that can help you lose weight.; Status:Complete - Retrospective Authorization; Done: [id number] SocHx: Never a smoker Tobacco Use Screening; Status:Complete; Done: [id number] Patient Instructions Please bring all medicines, vitamins, [...] 12:01:30 PM (more content not included)... Normal [facility] Tobacco Screening.on 023 Adult depression screening assessment No [facility] DO Work Phone: Fall risk assessment b) One or more falls in the last year [facility] Work Phone: Tobacco use status CPHS b) No [facility] DO Work Phone: CT CSPINE WO CONon [...] THONY JOHNSTON Date: 2023-01-24 19:08 Normal [facility] CT HEAD WO CONon 01-24-2023 CT HEAD [...] FLORIN ZHONG Date: 2023-01-24 18:51 Normal [facility] XR SHOULDER LT 2V or >on XR SHOULDER LT 2V or > EXAM: XR SHOULDER LT 2V or > HISTORY: Unspecified fall COMPARISON: Shoulder x-rays 08/27/2022 TECHNIQUE: 3 views FINDINGS: IMPRESSION: No visualized fracture, dislocation, subluxation or osseous lesion. Moderate degenerative changes of the acromial clinically joint. Electronically authenticated by: NIALL CELIS Date: 2023-01-24 18:58 Normal [facility] MRI BRAIN WO CONon 3 MRI BRAIN [...] by: ADAMS RAGSDALE Date: 2023-01-18 15:07 Normal [facility] US CAROTID ART BILon 023 [...] ADAMS RAGSDALE Date: 2023-01-18 14:45 Normal [facility] CBC AUTO DIFFon 12-26-2022 BASO # 0.1 103/ul Normal 0.0-0.1 [facility] Comment on above: Performed By: #### A CET, CMP #### [facility] Laboratory [address] [address] [address] Gilberto Ocampo Basophils/100 WBC (Bld) 0.8 % Normal 0.2-2.0 [facility] Comment on above: Performed By: #### A CET, CMP #### [facility] Laboratory [address] [place] [address] Dr. Gilberto Ocampo EO # 0.6 103/ul Normal 0.0-0.7 [facility] Comment on above: Performed By: #### A CET, CMP #### [facility] Laboratory [address] [place] [address] Dr. Gilberto Ocampo Eosinophils/100 WBC (Bld) 7.7 % Critically high 0.9-7.0 [facility] Comment on above: Performed By: #### A CET, CMP #### [facility] [address] [place] [address] Dr. Gilberto Ocampo Erythrocyte distribution width (RBC) [Ratio] 14.0 % Normal 11.0-15.0 [facility] Comment on above: Performed By: #### A CET, CMP #### [facility] [address] [place] [address] Dr. Gilberto Ocampo Hematocrit (Bld) [Volume fraction] 39.0 % Normal 36.0-48.0 [facility] Comment on above: Performed By: #### A CET, CMP #### [facility] [address] [place] [address] Dr. Gilberto Ocampo Hemoglobin (Bld) [Mass/Vol] 11.8 g/dL Critically low 12.0-16.0 [facility] Comment on above: Performed By: #### A CET, CMP #### [facility] [address] [place] [address] Dr. Gilberto Ocampo IG # 0.02 10e3/ul Normal 0.00-0.03 [facility] Comment on above: Performed By: #### A CET, CMP #### [facility] [address] [place] [address] Dr. Gilberto Ocampo IG % 0.3 % Normal 0.0-0.5 [facility] Comment on above: Performed By: #### A CET, CMP #### [facility] [address] [place] [address] Dr. Gilberto Ocampo LYMPH # 2.1 103/ul Normal 1.2-3.8 [facility] Comment on above: Performed By: #### A CET, CMP #### [facility] [address] [place] [address] Dr. Gilberto Ocampo Lymphocytes/100 WBC (Bld) 29.2 % Normal 20.5-60.0 [facility] Comment on above: Performed By: #### A CET, CMP #### [facility] [address] [place] [address] Dr. Gilberto Ocampo MANUAL DIFF REQ NO Normal [facility] Comment on above: Performed By: #### A CET, CMP #### [facility] [address] [place] [address] Dr. Gilberto Ocampo MCH (RBC) [Entitic mass] 29.2 pg Normal 26.7-34.0 [facility] Comment on above: Performed By: #### A CET, CMP #### [facility] [address] [place] [address] Dr. Gilberto Ocampo MCHC (RBC) [Mass/Vol] 30.3 g/dL Normal 29.9-35.2 [facility] Comment on above: Performed By: #### A CET, CMP #### [facility] [address] [place] [address] Dr. Gilberto Ocampo MCV (RBC) [Entitic vol] 96.5 fL Normal 81.0-99.0 [facility] Comment on above: Performed By: #### A CET, CMP #### [facility] [address] [place] [address] Dr. Gilberto Ocampo MONO # 0.6 103/ul Normal 0.3-0.8 [facility] Comment on above: Performed By: #### A CET, CMP #### [facility] [address] [place] [address] Dr. Gilberto Ocampo Monocytes/100 WBC (Bld) 9.0 % Normal 1.7-12.0 [facility] Comment on above: Performed By: #### A CET, CMP #### [facility] [address] [place] [address] Dr. Gilberto Ocampo NEUT # 3.8 103/ul Normal 1.4-6.5 [facility] Comment on above: Performed By: #### A CET, CMP #### [facility] [address] [address] [address] Gilberto Ocampo Neutrophils/100 WBC (Bld) 53.0 % Normal 43.0-75.0 [facility] Comment on above: Performed By: #### A CET, CMP #### [facility] [address] [address] [address] Gilberto Ocampo Platelet mean volume (Bld) [Entitic vol] 11.9 fL Normal 9.5-13.5 [facility] Comment on above: Performed By: #### A CET, CMP #### [facility] [address] [address] [address] Gilberto Ocampo PLT 209 103/ul Normal 150-450 [facility] Comment on above: Performed By: #### A CET, CMP #### [facility] [address] [place] [address] Dr. Gilberto Ocampo RBC 4.04 106/ul Critically low 4.20-5.40 [facility] Comment on above: Performed By: #### A CET, CMP #### [facility] [address] [address] [address] Gilberto Ocampo WBC 7.1 103/ul Normal 4.0-11.0 [facility] Comment on above: Performed By: #### A CET, CMP #### [facility] [address] [place] [address] Dr. Gilberto Ocampo GLYCOHEMOGLOBIN A1Con 2022 ADA RECOMMENDATION SEE BELOW Normal [facility] Comment on above: Result Comment: ADA RECOMMENDED LIMIT 4.0 - 6.0 ADA THERAPEUTIC TARGET < 7.0 ACTION SUGGESTED > 7.0 Performed By: #### A 1C #### [facility] [address] [address] [address] Gilberto Ocampo Glucose [Mass/Vol] 189 mg/dL Normal [facility] Comment on above: Performed By: #### A 1C #### [facility] [address] [address] [address] Gilberto Ocampo HbA1c (Bld) [Mass fraction] 8.2 % Critically high 4.5-6.2 [facility] Comment on above: Performed By: #### A 1C #### [facility] [address] [place] [address] Dr. Gilberto Ocampo PROF 14(COMP METB)on 023 Albumin [Mass/Vol] 3.0 g/dL Critically low 3.4-5.0 Th e [facility] Comment on above: Performed By: #### C MP #### [facility] Laboratory [address] [place] [address] Dr. Gilberto Ocampo Albumin/Globulin [Mass ratio] 0.8 {ratio} Normal [facility] Comment on above: Performed By: #### C MP #### [facility] [address] [place] [address] Dr. Gilberto Ocampo ALP [Catalytic activity/Vol] 89 U/L Normal 46-116 [facility] Comment on above: Performed By: #### C MP #### [facility] [address] [place] [address] Dr. Gilberto Ocampo ALT [Catalytic activity/Vol] 22 U/L Normal 14-59 [facility] Comment on above: Performed By: #### C MP #### [facility] [address] [place] [address] Dr. Gilberto Ocampo Anion gap [Moles/Vol] 12.4 mmol/L Normal [facility] Comment on above: Performed By: #### C MP #### [facility] [address] [place] [address] Dr. Gilberto Ocampo AST [Catalytic activity/Vol] 19 U/L Normal 15-37 [facility] Comment on above: Performed By: #### C MP #### [facility] [address] [place] [address] Dr. Gilberto Ocampo Bilirubin [Mass/Vol] 0.6 mg/dL Normal 0.2-1.0 [facility] Comment on above: Performed By: #### C MP #### [facility] [address] [place] [address] Dr. Gilberto Ocampo Calcium [Mass/Vol] 8.9 mg/dL Normal 8.5-10.1 [facility] Comment on above: Performed By: #### C MP #### [facility] [address] [address] [address] Gilberto Ocampo Chloride [Moles/Vol] 103 mmol/L Normal 98-107 [facility] Comment on above: Performed By: #### C MP #### [facility] [address] [address] [address] Gilberto Ocampo CO2 [Moles/Vol] 28.5 mmol/L Normal 21.0-32.0 [facility] Comment on above: Performed By: #### C MP #### [facility] [address] [address] [address] Gilberto Ocampo Creatinine [Mass/Vol] 1.52 mg/dL Critically high 0.55-1.02 [facility] Comment on above: Performed By: #### C MP #### [facility] [address] [address] [address] Gilberto Ocampo EGFR-AF [place] 41 mL/min/1.73m2 Critically low >=60 [facility] Comment on above: Performed By: #### C MP #### [facility] [address] [address] [address] Gilberto Ocampo EGFR-NON AF [place] 34 mL/min/1.73m2 Critically low >=60 [facility] Comment on above: Performed By: #### C MP #### [facility] [address] [address] [address] Gilberto Ocampo Globulin (S) [Mass/Vol] 3.8 g/dL Normal [facility] Comment on above: Performed By: #### C MP #### [facility] [address] [address] [address] Gilberto Ocampo Glucose [Mass/Vol] 206 mg/dL Critically high 74-106 [facility] Comment on above: Performed By: #### C MP #### [facility] [address] [address] [address] Gilberto Ocampo Potassium [Moles/Vol] 3.9 mmol/L Normal 3.5-5.1 [facility] Comment on above: Performed By: #### C MP #### [facility] [address] [address] [address] Gilberto Ocampo Protein [Mass/Vol] 6.8 g/dL Normal 6.4-8.2 [facility] Comment on above: Performed By: #### C MP #### [facility] [address] [address] [address] Gilberto Ocampo Sodium [Moles/Vol] 140 mmol/L Normal 136-145 [facility] Comment on above: Performed By: #### C MP #### [facility] [address] [address] [address] Gilberto Ocampo Urea nitrogen [Mass/Vol] 16.0 mg/dL Normal 7.0-18.0 [facility] Comment on above: Performed By: #### C MP #### [facility] [address] [address] [address] Gilberto Ocampo Urea nitrogen/Creatinin e [Mass ratio] 10.5 mg/mg Normal [facility] Comment on above: Performed By: #### C MP #### [facility] [address] [address] [address] Gilberto Ocampo CULTURE URINEon 12-17-2022 CULTURE URINE Culture Observations: NO GROWTH. Normal [facility] Comment on above: Performed By: #### A CET, CMP #### [facility] Laboratory [address] [address] [address] Gilberto Ocampo UA RANDOMon 12-17-2022 Bilirubin Ql (U) Negative Normal NEGATIVE [facility] Comment on above: Performed By: #### A CET, CMP #### [facility] [address] [address] [address] Gilberto Ocampo Clarity (U) CLEAR Normal CLEAR [facility] Comment on above: Performed By: #### A CET, CMP #### [facility] [address] [place] [address] Dr. Gilberto Ocampo Color (U) YELLOW Normal YELLOW [facility] Comment on above: Performed By: #### A CET, CMP #### [facility] [address] [place] [address] Dr. Gilberto Ocampo Glucose Ql (U) 250 mg/dl Abnormal NEGATIVE [facility] Comment on above: Performed By: #### A CET, CMP #### [facility] [address] [place] [address] Dr. Gilberto Ocampo Hemoglobin Ql (U) TRACE-INTACT Abnormal NEGATIVE [facility] Comment on above: Performed By: #### A CET, CMP #### [facility] [address] [place] [address] Dr. Gilberto Ocampo Ketones Ql (U) TRACE Abnormal NEGATIVE [facility] Comment on above: Performed By: #### A CET, CMP #### [facility] [address] [place] [address] Dr. Gilberto Ocampo LEUKOCYTES Negative Normal NEGATIVE [facility] Comment on above: Performed By: #### A CET, CMP #### [facility] [address] [place] [address] Dr. Gilberto Ocampo Nitrite Ql (U) Negative Normal NEGATIVE [facility] Comment on above: Performed By: #### A CET, CMP #### [facility] [address] [place] [address] Dr. Gilberto Ocampo pH (U) 5.0 [pH] Normal 5-9 [facility] Comment on above: Performed By: #### A CET, CMP #### [facility] [address] [place] [address] Dr. Gilberto Ocampo SPEC GRAVITY >=1.030 Abnormal 1.005-<=1.025 [facility] Comment on above: Performed By: #### A CET, CMP #### [facility] [address] [place] [address] Dr. Gilberto Ocampo UA PROTEIN TRACE Normal NEGATIVE/ TRACE [facility] Comment on above: Performed By: #### A CET, CMP #### [facility] [address] [place] [address] Dr. Gilberto Ocampo Urobilinogen Qn (U) 0.2 {Torres'U}/dL Normal 0.2 - 1.0 [facility] Comment on above: Performed By: #### A CET, CMP #### [facility] [address] [address] [address] Gilberto Ocampo XR HUMERUS RT MIN [...] THONY CLARK Date: 2022-11-17 02:30 Normal [facility] XR SHOULDER RT 2V or >on XR [...] THONY CLARK Date: 2022-11-17 03:30 Normal [facility] CULTURE URINEon 11-12-2022 CULTURE URINE Isolate 1 [...] Trimethoprim/Sulfa methoxazole <=20 S F Normal [facility] Comment on above: Performed By: #### A CET, CMP #### [facility] [address] [address] [address] Gilberto Ocampo CULTURE URINEon 11-11-2022 CULTURE [...] F Trimethoprim/Sulfa methoxazole <=20 S F Normal [facility] Comment on above: Performed By: #### A CET, CMP #### [facility] [address] [place] [address] Dr. Gilberto Ocampo ACETAMINOPHENon 11-09-2022 Acetaminophen [Mass/Vol] ug/mL Critically low 10.0-30.0 [facility] Comment on above: Performed By: #### A CET, CMP #### [facility] [address] [place] [address] Dr. Gilberto Ocampo CBC AUTO DIFFon 11-09-2022 BASO # 0.0 103/ul Normal 0.0-0.1 [facility] Comment on above: Performed By: #### C BC #### [facility] [address] [place] [address] Dr. Gilberto Ocampo Basophils/100 WBC (Bld) 0.5 % Normal 0.2-2.0 [facility] Comment on above: Performed By: #### C BC #### [facility] [address] [place] [address] Dr. Gilberto Ocampo EO # 0.4 103/ul Normal 0.0-0.7 [facility] Comment on above: Performed By: #### C BC #### [facility] [address] [place] [address] Dr. Gilberto Ocampo Eosinophils/100 WBC (Bld) 6.4 % Normal 0.9-7.0 [facility] Comment on above: Performed By: #### C BC #### [facility] [address] [place] [address] Dr. Gilberto Ocampo Erythrocyte distribution width (RBC) [Ratio] 13.7 % Normal 11.0-15.0 [facility] Comment on above: Performed By: #### C BC #### [facility] [address] [place] [address] Dr. Gilberto Ocampo Hematocrit (Bld) [Volume fraction] 38.1 % Normal 36.0-48.0 [facility] Comment on above: Performed By: #### C BC #### [facility] [address] [place] [address] Dr. Gilberto Ocampo Hemoglobin (Bld) [Mass/Vol] 12.2 g/dL Normal 12.0-16.0 [facility] Comment on above: Performed By: #### C BC #### [facility] [address] [place] [address] Dr. Gilberto Ocampo IG # 0.02 10e3/ul Normal 0.00-0.03 [facility] Comment on above: Performed By: #### C BC #### [facility] [address] [place] [address] Dr. Gilberto Ocampo IG % 0.3 % Normal 0.0-0.5 [facility] Comment on above: Performed By: #### C BC #### [facility] [address] [place] [address] Dr. Gilberto Ocampo LYMPH # 2.1 103/ul Normal 1.2-3.8 [facility] Comment on above: Performed By: #### C BC #### [facility] [address] [place] [address] Dr. Gilberto Ocampo Lymphocytes/100 WBC (Bld) 33.1 % Normal 20.5-60.0 [facility] Comment on above: Performed By: #### C BC #### [facility] [address] [place] [address] Dr. Gilberto Ocampo MANUAL DIFF REQ NO Normal [facility] Comment on above: Performed By: #### C BC #### [facility] [address] [place] [address] Dr. Gilberto Ocampo MCH (RBC) [Entitic mass] 29.6 pg Normal 26.7-34.0 [facility] Comment on above: Performed By: #### C BC #### [facility] [address] [place] [address] Dr. Gilberto Ocampo MCHC (RBC) [Mass/Vol] 32.0 g/dL Normal 29.9-35.2 [facility] Comment on above: Performed By: #### C BC #### [facility] [address] [place] [address] Dr. Gilberto Ocampo MCV (RBC) [Entitic vol] 92.5 fL Normal 81.0-99.0 [facility] Comment on above: Performed By: #### C BC #### [facility] [address] [place] [address] Dr. Gilberto Ocampo MONO # 0.7 103/ul Normal 0.3-0.8 [facility] Comment on above: Performed By: #### C BC #### [facility] [address] [place] [address] Dr. Gilberto Ocampo Monocytes/100 WBC (Bld) 11.6 % Normal 1.7-12.0 [facility] Comment on above: Performed By: #### C BC #### [facility] [address] [place] [address] Dr. Gilberto Ocampo NEUT # 3.0 103/ul Normal 1.4-6.5 [facility] Comment on above: Performed By: #### C BC #### [facility] [address] [place] [address] Dr. Gilberto Ocampo Neutrophils/100 WBC (Bld) 48.1 % Normal 43.0-75.0 [facility] Comment on above: Performed By: #### C BC #### [facility] [address] [place] [address] Dr. Gilberto Ocampo Platelet mean volume (Bld) [Entitic vol] 10.8 fL Normal 9.5-13.5 [facility] Comment on above: Performed By: #### C BC #### [facility] [address] [address] [address] Gilberto Ocampo PLT 212 103/ul Normal 150-450 [facility] Comment on above: Performed By: #### C BC #### [facility] [address] [address] [address] Gilberto Ocampo RBC 4.12 106/ul Critically low 4.20-5.40 [facility] Comment on above: Performed By: #### C BC #### [facility] [address] [address] [address] Gilberto Ocampo WBC 6.3 103/ul Normal 4.0-11.0 [facility] Comment on above: Performed By: #### C BC #### [facility] [address] [place] [address] Dr. Gilberto Ocampo DRUG SCREEN RAPID (URINE)on 11-09-2022 AMP Negative Normal NEGATIVE [facility] Comment on above: Performed By: #### U ACSWALI UMICRO #### [facility] [address] [place] [address] Dr. Gilberto Ocampo BAR Negative Normal NEGATIVE [facility] Comment on above: Performed By: #### U ACSWALI, UMICRO #### [facility] [address] [place] [address] Dr. Gilberto Ocampo BUP Negative Normal NEGATIVE [facility] Comment on above: Performed By: #### U ACSWALI, UMICRO #### [facility] [address] [place] [address] Dr. Gilberto Ocampo BZO Negative Normal NEGATIVE [facility] Comment on above: Performed By: #### U ACSWALI, UMICRO #### [facility] [address] [address] [address] Gilberto Ocampo CARLIE Negative Normal NEGATIVE [facility] Comment on above: Performed By: #### U ACSWALI, UMICRO #### [facility] [address] [place] [address] Dr. Gilberto Ocampo CUT-OFFS SEE BELOW Normal [facility] Comment on above: Result Comment: AMP (Amphetamine): [...] Performed By: #### U ACSIND, UMICRO #### [facility] [address] [place] [address] Dr. Gilberto Ocampo DRUG CUT HEADER DRUG CLASS TEST SYSTEM CUT-OFF CONCENTRATIONS ARE FOLLOWS: Normal [facility] Comment on above: Performed By: #### U ACSIND, UMICRO #### [facility] [address] [place] [address] Dr. Gilberto Ocampo mAMP Negative Normal NEGATIVE [facility] Comment on above: Performed By: #### U ACSIND, UMICRO #### [facility] [address] [place] [address] Dr. Gilberto Ocampo MTD Negative Normal NEGATIVE [facility] Comment on above: Performed By: #### U ACSIND, UMICRO #### [facility] [address] [place] [address] Dr. Gilberto Ocampo OPI Negative Normal NEGATIVE [facility] Comment on above: Performed By: #### U ACSIND, UMICRO #### [facility] [address] [place] [address] Dr. Gilberto Ocampo OXY Negative Normal NEGATIVE [facility] Comment on above: Performed By: #### U ACSIND, UMICRO #### [facility] [address] [place] [address] Dr. Gilberto Ocampo PCP Negative Normal NEGATIVE [facility] Comment on above: Performed By: #### U ACSIND, UMICRO #### [facility] [address] [place] [address] Dr. Gilberto Ocampo PPX Negative Normal NEGATIVE [facility] Comment on above: Performed By: #### U ACSIND, UMICRO #### [facility] [address] [address] [address] Gilberto Ocampo TCA Negative Normal NEGATIVE [facility] Comment on above: Performed By: #### U ACSIND, UMICRO #### [facility] [address] [address] [address] Gilberto Ocampo THC Negative Normal NEGATIVE [facility] Comment on above: Performed By: #### U ACSIND, UMICRO #### [facility] [address] [address] [address] Gilberto Ocampo ER URINE PROFILEon 2 Clarity (U) CLOUDY Abnormal CLEAR [facility] Comment on above: Performed By: #### U ACSIND, UMICRO #### [facility] [address] [place] [address] Dr. Gilberto Ocampo ERUAHD A micrscopic examination will be performed if indicated. Normal [facility] Comment on above: Performed By: #### U ACSIND, UMICRO #### [facility] [address] [place] [address] Dr. Gilberto Ocapmo pH (U) 6.0 [pH] Normal 5-9 [facility] Comment on above: Performed By: #### U ACSIND, UMICRO #### [facility] [address] [place] [address] Dr. Gilberto Ocampo Protein (U) [Mass/Vol] 30 mg/dL Abnormal NEGATIVE/ TRACE [facility] Comment on above: Performed By: #### U ACSIND, UMICRO #### [facility] [address] [place] [address] Dr. Gilberto Ocampo ETHANOL (BLD ALC)on 11-09-20 22 ALC NOTE NOTE: 80 mg/dl is the legal limit for a blood alcohol level Normal [facility] Comment on above: Performed By: #### E TH #### [facility] [address] [place] [address] Dr. Gilberto Ocampo Ethanol [Mass/Vol] mg/dL Normal [facility] Comment on above: Performed By: #### E TH #### [facility] [address] [address] [address] Gilberto Ocampo GLYCOHEMOGLOBIN A1Con 2021 ADA RECOMMENDATION SEE BELOW Normal [facility] Comment on above: Result Comment: ADA RECOMMENDED LIMIT 4.0 - 6.0 ADA THERAPEUTIC TARGET < 7.0 ACTION SUGGESTED > 7.0 Performed By: #### U ACSWALI, UMICRO #### [facility] [address] [place] [address] Dr. Gilberto Ocampo Glucose [Mass/Vol] 177 mg/dL Normal [facility] Comment on above: Performed By: #### U ACSWALI, TARAICRO #### [facility] [address] [place] [address] Dr. Gilberto Ocampo HbA1c (Bld) [Mass fraction] 7.8 % Critically high 4.5-6.2 [facility] Comment on above: Performed By: #### U ACSWALI, TARAICRO #### [facility] [address] [place] [address] Dr. Gilberto Ocampo LIPID PROFILEon 11-09-2022 CHOL-HDL RATIO NORM SEE BELOW Normal [facility] Comment on above: Result Comment: 3.3 - 4.4 LOW RISK 4.4 - 7.1 AVERAGE RISK 7.1 - 11.0 MODERATE RISK >11.0 HIGH RISK Performed By: #### L IPID #### [facility] [address] [place] [address] Dr. Gilberto Ocampo Cholesterol [Mass/Vol] 111 mg/dL Normal <=200 [facility] Comment on above: Performed By: #### L IPID #### [facility] [address] [address] [address] Gilberto Ocampo Cholesterol in HDL [Mass/Vol] 64 mg/dL Critically high 40-60 [facility] Comment on above: Performed By: #### L IPID #### [facility] [address] [address] [address] Gilberto Ocampo Cholesterol in LDL [Mass/Vol] 28.6 mg/dL Normal [facility] Comment on above: Performed By: #### L IPID #### [facility] [address] [address] [address] Gilberto Ocampo Cholesterol.total/ Cholesterol in HDL [Mass ratio] 1.7 {ratio} Normal [facility] Comment on above: Performed By: #### L IPID #### [facility] [address] [address] [address] Gilberto Ocampo HDL NORMAL > or = 60 mg/dl - LOW CARDIOVASCULAR RISK <40 mg/dl - HIGH CARDIOVASCULAR RISK Normal [facility] Comment on above: Performed By: #### L IPID #### [facility] [address] [place] [address] Dr. Gilberto Ocampo LDL CALC NORMAL SEE BELOW Normal [facility] Comment on above: Result Comment: <100 mg/dl OPTIMAL 100 - 129 mg/dl NEAR OR ABOVE OPTIMAL 130 - 159 mg/dl BORDERLINE HIGH 160 - 189 mg/dl HIGH >190 mg/dl VERY HIGH Performed By: #### L IPID #### [facility] [address] [place] [address] Dr. Gilberto Ocampo Triglyceride [Mass/Vol] 92 mg/dL Normal <=150 [facility] Comment on above: Performed By: #### L IPID #### [facility] [address] [place] [address] Dr. Gilberto Ocampo VLDL CALC 18.4 mg/dL Normal [facility] Comment on above: Performed By: #### L IPID #### [facility] [address] [place] [address] Dr. Gilberto Ocampo PROF 14(COMP METB)on 022 Albumin [Mass/Vol] 3.5 g/dL Normal 3.4-5.0 [facility] Comment on above: Performed By: #### A CET, CMP #### [facility] [address] [place] [address] Dr. Gilberto Ocampo Albumin/Globulin [Mass ratio] 0.9 {ratio} Normal [facility] Comment on above: Performed By: #### A CET, CMP #### [facility] [address] [address] [address] Gilberto Ocampo ALP [Catalytic activity/Vol] 87 U/L Normal 46-116 [facility] Comment on above: Performed By: #### A CET, CMP #### [facility] [address] [place] [address] Dr. Gilberto Ocampo ALT [Catalytic activity/Vol] 23 U/L Normal 14-59 [facility] Comment on above: Performed By: #### A CET, CMP #### [facility] [address] [address] [address] Gilberto Ocampo Anion gap [Moles/Vol] 9.3 mmol/L Normal [facility] Comment on above: Performed By: #### A CET, CMP #### [facility] [address] [place] [address] Dr. Gilberto Ocampo AST [Catalytic activity/Vol] 24 U/L Normal 15-37 [facility] Comment on above: Performed By: #### A CET, CMP #### [facility] [address] [place] [address] Dr. Gilberto Ocampo Bilirubin [Mass/Vol] 1.0 mg/dL Normal 0.2-1.0 [facility] Comment on above: Performed By: #### A CET, CMP #### [facility] [address] [place] [address] Dr. Gilberto Ocampo Calcium [Mass/Vol] 8.7 mg/dL Normal 8.5-10.1 [facility] Comment on above: Performed By: #### A CET, CMP #### [facility] [address] [place] [address] Dr. Gilberto Ocampo Chloride [Moles/Vol] 102 mmol/L Normal 98-107 [facility] Comment on above: Performed By: #### A CET, CMP #### [facility] [address] [place] [address] Dr. Gilberto Ocampo CO2 [Moles/Vol] 32.4 mmol/L Critically high 21.0-32.0 [facility] Comment on above: Performed By: #### A CET, CMP #### [facility] [address] [address] [address] Gilberto Ocampo Creatinine [Mass/Vol] 1.58 mg/dL Critically high 0.55-1.02 [facility] Comment on above: Performed By: #### A CET, CMP #### [facility] [address] [address] [address] Gilberto Ocampo EGFR-AF [place] 39 mL/min/1.73m2 Critically low >=60 [facility] Comment on above: Performed By: #### A CET, CMP #### [facility] [address] [address] [address] Gilberto Ocampo EGFR-NON AF [place] 32 mL/min/1.73m2 Critically low >=60 [facility] Comment on above: Performed By: #### A CET, CMP #### [facility] [address] [address] [address] Gilberto Ocampo Globulin (S) [Mass/Vol] 3.7 g/dL Normal [facility] Comment on above: Performed By: #### A CET, CMP #### [facility] [address] [address] [address] Gilberto Ocampo Glucose [Mass/Vol] 272 mg/dL Critically high 74-106 [facility] Comment on above: Performed By: #### A CET, CMP #### [facility] [address] [address] [address] Gilberto Ocampo Potassium [Moles/Vol] 3.7 mmol/L Normal 3.5-5.1 [facility] Comment on above: Performed By: #### A CET, CMP #### [facility] [address] [address] [address] Gilberto Ocampo Protein [Mass/Vol] 7.2 g/dL Normal 6.4-8.2 [facility] Comment on above: Performed By: #### A CET, CMP #### [facility] [address] [address] [address] Gilberto Ocampo Sodium [Moles/Vol] 140 mmol/L Normal 136-145 [facility] Comment on above: Performed By: #### A CET, CMP #### [facility] [address] [address] [address] Gilberto Ocampo Urea nitrogen [Mass/Vol] 20.0 mg/dL Critically high 7.0-18.0 The [facility] Comment on above: Performed By: #### A CET, CMP #### [facility] [address] [place] [address] Dr. Gilberto Ocampo Urea nitrogen/Creatinin e [Mass ratio] 12.7 mg/mg Normal [facility] Comment on above: Performed By: #### A CET, CMP #### [facility] [address] [place] [address] Dr. Gilberto Ocampo UA (CLEAN/CATCH) CUTTING TABLE OPERATOR FIRST/MICRO I F IND.on 11-09-2022 Bilirubin Ql (U) Negative Normal NEGATIVE [facility] Comment on above: Performed By: #### U ACSIND, UMICRO #### [facility] [address] [place] [address] Dr. Gilberto Ocampo Clarity (U) CLEAR Normal CLEAR [facility] Comment on above: Performed By: #### U ACSIND, ICRO #### [facility] [address] [place] [address] Dr. Gilberto Ocampo Color (U) LT. YELLOW Normal YELLOW [facility] Comment on above: Performed By: #### U ACSIND, UMICRO #### [facility] [address] [place] [address] Dr. Gilberto Ocampo Glucose Ql (U) Negative Normal NEGATIVE [facility] Comment on above: Performed By: #### U ACSIND, UMICRO #### [facility] [address] [place] [address] Dr. Gilberto Ocampo Hemoglobin Ql (U) LARGE Abnormal NEGATIVE [facility] Comment on above: Performed By: #### U ACSIND, UMICRO #### [facility] [address] [place] [address] Dr. Gilberto Ocampo Ketones Ql (U) TRACE Abnormal NEGATIVE [facility] Comment on above: Performed By: #### U ACSIND, UMICRO #### [facility] [address] [place] [address] Dr. Gilberto Ocampo LEUKOCYTES MODERATE Abnormal NEGATIVE The [facility] Comment on above: Performed By: #### U ACSIND, UMICRO #### [facility] [address] [place] [address] Dr. Gilberto Ocampo Nitrite Ql (U) Positive Abnormal NEGATIVE [facility] Comment on above: Performed By: #### U ACSIND, UMICRO #### [facility] [address] [place] [address] Dr. Gilberto Ocampo pH (U) 5.5 [pH] Normal 5-9 The [facility] Comment on above: Performed By: #### U ACSWALI, UMICRO #### [facility] [address] [place] [address] Dr. Gilberto Ocampo SPEC GRAVITY 1.025 Normal 1.005-<=1.025 [facility] Comment on above: Performed By: #### U ACSIND, UMICRO #### [facility] [address] [place] [address] Dr. Gilberto Ocampo UA PROTEIN 30 mg/dl Abnormal NEGATIVE/ TRACE [facility] Comment on above: Performed By: #### U ACSWALI, UMICRO #### [facility] [address] [place] [address] Dr. Gilberto Ocampo UR MICRO IND INDICATED Normal The [facility] Comment on above: Performed By: #### U ACSIND, UMICRO #### [facility] [address] [place] [address] Dr. Gilberto Ocampo Urobilinogen Qn (U) 0.2 {Torres'U}/dL Normal 0.2 - 1.0 The [facility] Comment on above: Performed By: #### U ACSIND, UMICRO #### [facility] [address] [place] [address] Dr. Gilberto Ocampo URINE MICROSCOPIC ONLYon BACTERIA SMALL Abnormal NONE SEEN The [facility] Comment on above: Performed By: #### U ACSIND, UMICRO #### [facility] [address] [place] [address] Dr. Gilberto Ocampo BACTERIA MODERATE Abnormal NONE SEEN The [facility] Comment on above: Performed By: #### U ACSIND, UMICRO #### [facility] [address] [address] [address] Gilberto Ocampo Bacteria identified Cx Nom (U) INDICATED Normal The [facility] Comment on above: Performed By: #### U ACSIND, UMICRO #### [facility] [address] [address] [address] Gilberto Ocampo CAST NONE SEEN Normal NONE SEEN The [facility] Comment on above: Performed By: #### U ACSIND, UMICRO #### [facility] [address] [address] [address] Gilberto Ocampo Crystals LM Nom (Urine sed) NONE SEEN Normal NONE SEEN The [facility] Comment on above: Performed By: #### U ACSIND, UMICRO #### [facility] [address] [place] [address] Dr. Gilberto Ocampo Epithelial cells LM Ql (Urine sed) MODERATE Abnormal NONE SEEN /RARE The [facility] Comment on above: Performed By: #### U ACSIND, UMICRO #### [facility] [address] [address] [address] Gilberto Ocampo MUCOUS TRACE Abnormal NONE SEEN The [facility] Comment on above: Performed By: #### U ACSIND, UMICRO #### [facility] [address] [place] [address] Dr. Gilberto Ocampo MUCOUS SMALL Abnormal NONE SEEN The [facility] Comment on above: Performed By: #### U ACSIND, UMICRO #### [facility] [address] [place] [address] Dr. Gilberto Ocampo RBC 2-5 Abnormal 0-2 The [facility] Comment on above: Performed By: #### U ACSIND, UMICRO #### [facility] [address] [place] [address] Dr. Gilberto Ocampo RBC 5-10 Abnormal 0-2 The [facility] Comment on above: Performed By: #### U ACSIND, UMICRO #### [facility] [address] [place] [address] Dr. Gilberto Ocampo WBC 20-50 Abnormal NONE SEEN The [facility] Comment on above: Performed By: #### U ACSWALI UMICRO #### [facility] [address] [address] [address] Gilberto Ocampo WBC 10-20 Abnormal NONE SEEN The [facility] Comment on above: Performed By: #### U ACSIND, UMICRO #### [facility] [address] [address] [address] Gilberto Ocampo MG MAMM SCREEN 3D DORIE CADon 10-11-2022 MG MAMM SCREEN 3D DORIE CAD Patient: MALCOM KNOWLES Exam Date: 10/11/2022 : 1955 Gender:F Ordering : DR DUSTY WALTERS . Admission #: [id number] Family : Order #: [id number] CLICK HERE TO VIEW EXAM RADIOLOGY REPORT [...] prostate cancer at age 64. LOCATION: The [facility] BREAST COMPOSITION: Scattered areas fibroglandular density. FINDINGS: [...] MD on 10/11/2022 at 14:47 Normal The [facility] PTH INTACTon 09-18-2022 PTH, Intact 46 pg/mL Normal 15-65 The [facility] Comment on above: Performed By: #### U ACSIND, UMICRO #### [facility] [address] [address] [address] Gilberto Ocampo HEMOGRAM AND PLATELon 2021 Hematocrit (Bld) [Volume fraction] 37.2 % Normal 36.0-48.0 [facility] Comment on above: Performed By: #### H H #### [facility] [address] [place] [address] Dr. Gilberto Ocampo Hemoglobin (Bld) [Mass/Vol] 12.2 g/dL Normal 12.0-16.0 The [facility] Comment on above: Performed By: #### H H #### [facility] [address] [place] [address] Dr. Gilberto Ocampo MCH (RBC) [Entitic mass] 30.3 pg Normal 26.7-34.0 The [facility] Comment on above: Performed By: #### H H #### [facility] [address] [place] [address] Dr. Gilberto Ocampo MCHC (RBC) [Mass/Vol] 32.8 g/dL Normal 29.9-35.2 The [facility] Comment on above: Performed By: #### H H #### [facility] [address] [place] [address] Dr. Gilberto Ocampo MCV (RBC) [Entitic vol] 92.5 fL Normal 81.0-99.0 The [facility] Comment on above: Performed By: #### H H #### [facility] [address] [place] [address] Dr. Gilberto Ocampo PLT 194 103/ul Normal 150-450 The [facility] Comment on above: Performed By: #### H H #### [facility] [address] [place] [address] Dr. Gilberto Ocampo RBC 4.02 106/ul Critically low 4.20-5.40 [facility] Comment on above: Performed By: #### H H #### [facility] [address] [place] [address] Dr. Gilberto Ocampo WBC 5.4 103/ul Normal 4.0-11.0 The [facility] Comment on above: Performed By: #### H H #### [facility] [address] [place] [address] Dr. Gilberto Ocampo MAGNESIUMon 09-15-2022 Magnesium [Mass/Vol] 1.9 mg/dL Normal 1.8-2.4 [facility] Comment on above: Performed By: #### A CET, CMP #### [facility] [address] [place] [address] Dr. Gilberto Ocampo PROF 14(COMP METB)on 022 Albumin [Mass/Vol] 3.3 g/dL Critically low 3.4-5.0 Th [facility] Comment on above: Performed By: #### A CET, CMP #### [facility] [address] [place] [address] Dr. Gilberto Ocampo Albumin/Globulin [Mass ratio] 0.9 {ratio} Normal [facility] Comment on above: Performed By: #### A CET, CMP #### [facility] [address] [place] [address] Dr. Gilberto Ocampo ALP [Catalytic activity/Vol] 85 U/L Normal 46-116 [facility] Comment on above: Performed By: #### A CET, CMP #### [facility] [address] [place] [address] Dr. Gilberto Ocampo ALT [Catalytic activity/Vol] 32 U/L Normal 14-59 [facility] Comment on above: Performed By: #### A CET, CMP #### [facility] [address] [place] [address] Dr. Gilberto Ocampo Anion gap [Moles/Vol] 12.3 mmol/L Normal [facility] Comment on above: Performed By: #### A CET, CMP #### [facility] [address] [place] [address] Dr. Gilberto Ocampo AST [Catalytic activity/Vol] 20 U/L Normal 15-37 [facility] Comment on above: Performed By: #### A CET, CMP #### [facility] [address] [place] [address] Dr. Gilberto Ocampo Bilirubin [Mass/Vol] 1.1 mg/dL Critically high 0.2-1.0 [facility] Comment on above: Performed By: #### A CET, CMP #### [facility] [address] [address] [address] Gilberto Ocampo Calcium [Mass/Vol] 8.5 mg/dL Normal 8.5-10.1 [facility] Comment on above: Performed By: #### A CET, CMP #### [facility] [address] [address] [address] Gilberto Ocampo Chloride [Moles/Vol] 103 mmol/L Normal 98-107 [facility] Comment on above: Performed By: #### A CET, CMP #### [facility] [address] [address] [address] Gilberto Ocampo CO2 [Moles/Vol] 29.5 mmol/L Normal 21.0-32.0 [facility] Comment on above: Performed By: #### A CET, CMP #### [facility] [address] [place] [address] Dr. Gilberto Ocampo Creatinine [Mass/Vol] 1.52 mg/dL Critically high 0.55-1.02 [facility] Comment on above: Performed By: #### A CET, CMP #### [facility] [address] [place] [address] Dr. Gilberto Ocampo EGFR-AF [place] 41 mL/min/1.73m2 Critically low >=60 [facility] Comment on above: Performed By: #### A CET, CMP #### [facility] [address] [place] [address] Dr. Gilberto Ocampo EGFR-NON AF [place] 34 mL/min/1.73m2 Critically low >=60 [facility] Comment on above: Performed By: #### A CET, CMP #### [facility] [address] [place] [address] Dr. Gilberto Ocampo Globulin (S) [Mass/Vol] 3.6 g/dL Normal [facility] Comment on above: Performed By: #### A CET, CMP #### [facility] [address] [place] [address] Dr. Gilberto Ocampo Glucose [Mass/Vol] 323 mg/dL Critically high 74-106 [facility] Comment on above: Performed By: #### A CET, CMP #### [facility] [address] [place] [address] Dr. Gilberto Ocampo Potassium [Moles/Vol] 3.8 mmol/L Normal 3.5-5.1 [facility] Comment on above: Performed By: #### A CET, CMP #### [facility] [address] [place] [address] Dr. Gilberto Ocampo Protein [Mass/Vol] 6.9 g/dL Normal 6.4-8.2 [facility] Comment on above: Performed By: #### A CET, CMP #### [facility] [address] [place] [address] Dr. Gilberto Ocampo Sodium [Moles/Vol] 141 mmol/L Normal 136-145 [facility] Comment on above: Performed By: #### A CET, CMP #### [facility] [address] [place] [address] Dr. Gilberto Ocampo Urea nitrogen [Mass/Vol] 16.0 mg/dL Normal 7.0-18.0 [facility] Comment on above: Performed By: #### A CET, CMP #### [facility] [address] [place] [address] Dr. Gilberto Ocampo Urea nitrogen/Creatinin e [Mass ratio] 10.5 mg/mg Normal [facility] Comment on above: Performed By: #### A CET, CMP #### [facility] [address] [place] [address] Dr. Gilberto Ocampo URIC ACID SERUMon 09-15-2022 Urate [Mass/Vol] 3.3 mg/dL Normal 2.6-6.0 [facility] Comment on above: Performed By: #### A CET, CMP #### [facility] [address] [place] [address] Dr. Gilberto Ocampo VITAMIN D 25 OHon 09-15-2022 VIT D 25-OH 57.1 ng/mL Normal [facility] Comment on above: Performed By: #### U ACSIND, UMICRO #### [facility] [address] [place] [address] Dr. Gilberto Ocampo VIT D RANGES SEE BELOW Normal [facility] Comment on above: Result Comment: <20 ng/mL Vit D deficient 20 - <30 ng/mL Vit D insufficient 30 - 100 ng/mL Vit D sufficient >100 ng/mL Potential Toxicity Performed By: #### U ACSZAID KEYES #### [facility] [address] [address] [address] Gilberto Ocampo US KIDNEYSon 08-30-2022 US [...] ADAMS RAGSDALE Date: 2022-08-30 11:46 Normal The [facility] XR CHEST 2 Von 08-27-2022 XR CHEST [...] by: ADAMS RAGSDALE Date: 2022-08-27 21:54 Normal [facility] XR NECK SOFT TISSUEon 2021 [...] ADAMS RAGSDALE Date: 2022-08-27 21:58 Normal The [facility] Tobacco Screening.on 022 Adult depression screening assessment No [facility] [employer] [address] DO Work Phone: Fall risk assessment b) One or more falls in the last year [facility] [employer] y [address] DO Work Phone: Tobacco use status CPHS b) No -[facility] [employer] y [address] DO Work Phone: CNPSoumya 01-18-2021 CNPN Telephone (GYNML) -------- MALCOM KNOWLES ([id number]) 1955 F Date Time Provider Department 01/18/21 [facility] During your visit today, we recorded the following information about you: Anabela Claudiarajni Pss 01/18/2021 10:00 AM Signed Called patient and told her left and needs to make a follow up at . Patient said she will call back in April. She has to figure out transportation. Allergies As of Date: 01/18/2021 Noted Allergy Reaction INFLUENZA VIRUS VACCINES 03/01/2016 14 - Other: See Comments Comments: History of Guillain -Nashua Syndrome FLU VACCINE 2010-12(3 YR+)(PF) 01/18/2016 16 [...] Encounter Status:Closed by ANABELA BUSTAMANTE on 01/18/21 [facility] Social History Date Type Detail Facility Start: 05-11-2024 Alcohol intake Ex-drinker (finding) [facility] Start: 05-08-2024 Tobacco use and exposure Smokeless tobacco non-user [facility] Work Phone: Start: 05-07-2024 Tobacco smoking status NHIS Tobacco smoking consumption unknown [facility] Start: 01-09-2024 End: 05-08-2024 Alcohol intake Lifetime non-drinker (finding) [facility] Work Phone: Start: 12-30-2023 End: 05-08-2024 Exposure to SARS-CoV-2 (event) Not sure [facility] Start: 12-16-2023 End: 05-07-2024 No alcohol use No alcohol use [facility] [address] DO Work Phone: Comment on above: 2 CUPS OF ICED TEA D AILY; Start: 12-16-2023 End: 05-07-2024 Sex Assigned At [facility] Start: 05-16-2023 End: 05-15-2024 Tobacco smoking status Never smoked tobacco (finding) [facility] Start: 1955 Sex Assigned At Female F [facility] Start: 1955 Sex Assigned At Not on file [facility] Work Phone: Tobacco smoking status Never [facility] Vital Signs Date Time Vital Sign Value Performing Clinician Facility 05-15-2024 11:11-0400 Blood Pressure Location BRIGIDA GRAHAM [facility] 05-15-2024 11:11-0400 Diastolic blood pressure 67 mm[Hg] BRIGIDA GAMINGRY [facility] 05-15-2024 11:11-0400 Heart rate 69 /min BRIGIDA GRAHAM [facility] 05-15-2024 11:11-0400 Respiratory rate 19 /min BRIGIDA GRAHAM [facility] 05-15-2024 11:11-0400 Systolic blood pressure 126 mm[Hg] BRIGIDA FARTUN [facility] 05-11-2024 16:06-0400 Body temperature 97.59 [degF] Micheal Peters MD Work Phone: [employer] 05-11-2024 16:06-0400 Diastolic blood pressure 77 mm[Hg] Micheal Peters MD Work Phone: [employer] 05-11-2024 16:06-0400 Heart rate 91 /min Micheal Peters MD Work Phone: [employer] 05-11-2024 16:06-0400 Respiratory rate 16 /min Micheal Peters MD Work Phone: [employer] 05-11-2024 16:06-0400 SaO2% (BldA) [Mass fraction] 97 % Micheal Peters MD Work Phone: [employer] 05-11-2024 16:06-0400 Systolic blood pressure 151 mm[Hg] Micheal Petesr MD Work Phone: [employer] 05-08-2024 10:35-0400 Diastolic blood pressure 84 mm[Hg] Cinthia Vazquez MD Work Phone: [facility] 05-08-2024 10:35-0400 Systolic blood pressure 136 mm[Hg] Cinthia Vazquez MD Work Phone: [facility] 05-08-2024 10:190400 Body height 157.5 cm Cinthia Vazquez MD Work Phone: [facility] 05-08-2024 10:19-0400 Body mass index (BMI) [Ratio] 54.5 kg/m2 Cinthia Vazquez MD Work Phone: [facility] 05-08-2024 10:190400 Body weight 135.17 kg Cinthia Vazquez MD Work Phone: [facility] 05-08-2024 10:190400 Heart rate 65 /min Cinthia Vazquez MD Work Phone: [facility] 05-07-2024 09:01-0400 Body height 162.6 cm Micheal Peters MD Work Phone: [facility] 05-07-2024 09:01-0400 Body mass index (BMI) [Ratio] 48.06 kg/m2 Micheal Peters MD Work Phone: [facility] 05-07-2024 09:01-0400 Body weight 127.01 kg Micheal Peters MD Work Phone: [facility] 02-25-2024 11:15-0400 Body height 162.56 cm [facility] 02-25-2024 11:15-0400 Body temperature 96.9 [degF] [facility] 02-25-2024 11:15-0400 Diastolic blood pressure 79 mm[Hg] [facility] 02-25-2024 11:15-0400 Heart rate 61 /min [facility] 02-25-2024 11:15-0400 Respiratory rate 16 /min [facility] [facility] 02-25-2024 11:15-0400 SaO2% (BldA) [Mass fraction] 99 % [facility] 02-25-2024 11:15-0400 Systolic blood pressure 141 mm[Hg] [facility] 01-09-2024 11:49-0500 Body height 157.5 cm Cinthia Vazquez MD Work Phone: [facility] 01-09-2024 11:49-0500 Body mass index (BMI) [Ratio] 53.04 kg/m2 Cinthia Vazquez MD Work Phone: [facility] 01-09-2024 11:49-0500 Body weight 131.54 kg Cinthia Vazquez MD Work Phone: [facility] 01-09-2024 11:49-0500 Diastolic blood pressure 80 mm[Hg] Cinthia Vazquez MD Work Phone: [facility] 01-09-2024 11:49-0500 Heart rate 64 /min Cinthia Vazquez MD Work Phone: [facility] 01-09-2024 11:49-0500 Systolic blood pressure 136 mm[Hg] Cinthia Vazquez MD Work Phone: [facility] 11-21-2023 10:16-0500 Blood Pressure Location BRIGIDA GRAHAM [facility] 11-21-2023 10:16-0500 Diastolic blood pressure 84 mm[Hg] BRIGIDA GRAHAM [facility] 11-21-2023 10:16-0500 Systolic blood pressure 138 mm[Hg] BRIGIDA GRAHAM [facility] 07-02-2023 14:20-0400 Body height 162.56 cm Chip Craft Other [facility] Other 07-02-2023 14:20-0400 Body temperature 96.7 [degF] Chip Craft Other [facility] Other 07-02-2023 14:20-0400 Diastolic blood pressure 79 mm[Hg] Chip Craft Other [facility] Other 07-02-2023 14:20-0400 Respiratory rate 18 /min Chip Craft Other [facility] Other 07-02-2023 14:20-0400 SaO2% (BldA) [Mass fraction] 98 % Chip Craft Other [facility] Other 07-02-2023 14:20-0400 Systolic blood pressure 155 mm[Hg] Chip Craft Other [facility] Other 04-04-2023 11:33-0400 Body height 160.02 cm Dusty Walters Work Phone: [facility] [employer] 600 DO Work Phone: 04-04-2023 11:33-0400 Body mass index (BMI) [Ratio] 52.97 kg/m2 Dusty Seals Selena Work Phone: [facility] [employer] 600 DO Work Phone: 04-04-2023 11:33-0400 Body surface area Derived from formula 2.29 m2 Dusty Seals Walters Work Phone: [facility] [employer] 600 DO Work Phone: 04-04-2023 11:33-0400 Body weight 135.63 kg Dusty Quintanillaight Work Phone: [facility] [employer] 600 DO Work Phone: 04-04-2023 11:33-0400 Diastolic blood pressure 70 mm[Hg] Dusty Walters Work Phone: [facility] [employer] 600 DO Work Phone: 04-04-2023 11:33-0400 Heart rate 72 /min Dusty Walters Work Phone: [facility] [employer] 600 DO Work Phone: 04-04-2023 11:33-0400 Systolic blood pressure 110 mm[Hg] Dusty Walters Work Phone: [facility] [employer] 600 DO Work Phone: 11-20-2022 10:30-0500 Body height 162.56 cm Lizandro Martins Other [facility] Other 10-30-2022 16:20-0500 Body height 162.56 cm Azamos Tictails Other [facility] Other 10-30-2022 16:20-0500 Diastolic blood pressure 84 mm[Hg] Aziz Bakhous Other [facility] Other 10-30-2022 16:20-0500 SaO2% (BldA) [Mass fraction] 98 % Aziz Bakhous Other [facility] Other 10-30-2022 16:20-0500 Systolic blood pressure 128 mm[Hg] Aziz Bakhous Other [facility] Other 05-15-2022 14:20-0400 Body height 162.56 cm Aziz Bakhous Other [facility] Other 05-15-2022 14:20-0400 Body temperature 97 [degF] Aziz Bakhous Other [facility] Other 05-15-2022 14:20-0400 Diastolic blood pressure 70 mm[Hg] Chip Craft Other [facility] Other 05-15-2022 14:20-0400 Respiratory rate 18 /min Chip Craft Other [facility] Other 05-15-2022 14:20-0400 SaO2% (BldA) [Mass fraction] 97 % Chip Craft Other [facility] Other 05-15-2022 14:20-0400 Systolic blood pressure 120 mm[Hg] Chip Craft Other [facility] Other 03-12-2022 13:25-0400 Body height 160.02 cm Dusty Quintanillaight Work Phone: [facility] [employer] 250 DO Work Phone: 03-12-2022 13:25-0400 Body mass index (BMI) [Ratio] 51.02 kg/m2 Dusty Quintanillaight Work Phone: [facility] [employer] 250 DO Work Phone: 03-12-2022 13:25-0400 Body surface area Derived from formula 2.26 m2 Dusty Walters Work Phone: [facility] [employer] 250 DO Work Phone: 03-12-2022 13:25-0400 Body weight 130.64 kg Dusty Walters Work Phone: [facility] Dr. TATTOFFRabun 250 DO Work Phone: 03-12-2022 13:25-0400 Diastolic blood pressure 78 mm[Hg] Dusty Walters Work Phone: [facility] [employer] 250 DO Work Phone: 03-12-2022 13:25-0400 Heart rate 70 /min Dusty Walters Work Phone: [facility] 250 DO Work Phone: 03-12-2022 13:25-0400 Systolic blood pressure 102 mm[Hg] Dusty Walters Work Phone: [facility] Work Phone: Functional Status Date Assessment Result Facility 05-15-2024 Functional Status N/A [facility] 03-30-2024 Functional Status N/A [facility] 12-23-2023 Functional Status N/A [facility] 11-21-2023 Functional Status N/A [facility] Clinical Notes 06-01-2018 to 05-15-2024 Katja Rodriguez RN - 05/08/2024 10:23 AM Jacquelyn Gibson [...] your health care provider. General instructions Take kymk-rof-nxrcrmx and prescription medicines only as told by [...] provider. Document Revised: 08/07/2021 Document Reviewed: 08/07/2021 [employer] Patient Education 2022 [employer]. Follow Up Care 03/30/2024 15:10:22 With:EMMY JUDGE, Joe Guerra, URL Address: [address] [place] [id number]- When:Within 3 Month(s) [facility] 05-08-2024 History of Present illness Narrative Spoke with Domonique at [facility] to notify need of H/P for OR scheduled 05/11/24. Spoke with patients daughterAmena, patient has appointment with animal care supervisor on 05/08/24. Requested office notes to be faxed to [facility]. Patient is a resident at [facility] telephone assessment completed with Tawanna Bowling LPN. A&O: YES Code Status: DNR-CC Ambulatory: YES Oxygen: NO Hard of Hearing: NO Call light: YES Signs Documents? NO POA: AMENA SR - DAUGHTER - WILL ACCOMPANY DOS [facility] Wounds: NONE Isolation: N/A Lines/Drains/Implanted devices: NONE Verified arrival time of 1030 with facility. General instructions and medication instructions faxed to facility. [facility] PRE-ADMISSION TESTING INSTRUCTIONS The Preadmission Testing patient is instructed accordingly using the following criteria (check applicable): ARRIVAL INSTRUCTIONS: [x] Parking the day of Surgery is located in the Main Entrance lot. Upon entering the door, make an immediate right to the surgery spa receptionist desk [x] Bring photo ID and insurance card [x] Bring in a copy of Living will or Durable Power of Pharmacy Informaticist papers. [x] Please be sure to arrange for a responsible adult to provide transportation to and from the hospital [x] Please arrange for a responsible adult to be with you for the 24 hour period post procedure due to having anesthesia [x] If you awake am of surgery not feeling well or have temperature >100 please call [phone] GENERAL INSTRUCTIONS: [x] No solid foods after [...] [x] Please do not wear any nail irish, make up or hair products on the [...] ARRIVAL TIME 1030 documented in this encounter [facility] 05-08-2024 History of Present illness Narrative Subjective [...] Scribe Attestation By signing my name below, I, Deena Cee LPN , Scribbozena attest that this documentation has been prepared [...] discussion and plan. documented in this encounter [facility] Work Phone: 05-08-2024 Instructions Deena Ramon LPN [...] a cardiac standpoint documented in this encounter [facility] Work Phone: 03-30-2024 Hospital Discharge instructions Patient [...] degrees. Follow Up Care 02/05/2024 12:31:18 With:BRIGIDA GRAHAM Address: [address] [place] [phone] Business (1) When:05/11/2024 14:10:19 Comments:Call for followup appointment, with a bladder scan to check on bladder emptying. [facility] 03-30-2024 Note [id number] [facility] 03-30-2024 Note Cystoscopy with Boto x injection [...] you have a fever over 100 degrees. [facility] 01-09-2024 History of Present illness Narrative Subjective [...] Weight Tips; Status:Complete - Retrospective Authorization; Done: [id number] Some eating tips that can help you lose weight.; Status:Complete - Retrospective Authorization; Done: [id number] SocHx: Never a smoker Tobacco Use Screening; Status:Complete; Done: [id number] Patient Instructions Please bring all medicines, vitamins, [...] Scribe Attestation By signing my name below, I, irishrleticlpn , Scribe attest that this documentation has been prepared under the direction and in the presence of Cinthia Vazquez MD. documented in this encounter [facility] Work Phone: 01-09-2024 Instructions Nathaly [...] up one year documented in this encounter [facility] Work Phone: 12-31-2023 Note Clinician was able t o reach out to daughter. 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 Was able to share the need for a SLUMS test from Neurology and to test for Alzheimer's and or Dementia due to grandmother having Alzheimer's. Gave information to reach out to Detective Sergeant if anything else is needed. [facility] 12-23-2023 Hospital Discharge instructions Patient Education 12/23/2023 [...] Up Care 11/26/2023 13:33:03 With:BRIGIDA GRAHAM Address: [address] [place] [phone] [facility] (1) When:6 weeks Comments:Call for followup appointment, with a bladder scan for PVR at that visit. Monitor your urinary flow after the dilation of the channel today. [facility] 12-23-2023 Note [id number] [facility] 12-23-2023 Note Cystoscopy with Uret hral Dilation [...] you have a fever over 100 degrees [facility] 11-21-2023 Hospital Discharge [...] (electrical nerve stimulation). ?For women, using a certified medical coding specialist to prevent urine leaks. This is [...] right after experiencing incontinence. General instructions Take ciwb-kih-mqdusyg and prescription medicines only as told by [...] important. Where to find more information [employer] [place] of Diabetes and Digestive and Kidney Diseases: www.niddk.nih.gov [employer]: www.urologyhealth.org Contact a health care [...] provider. Document Revised: 06/23/2021 Document Reviewed: 06/23/2021 myAchy Patient Education 2022 [employer]. Follow Up Care 09/03/2023 10:14:29 With:FARTUN MCCOLLUM, BRIGIDA Seals, URL Address: [facility] [address] [facility] [place] [address] [phone] When: Unknown [facility] 07-02-2023 Evaluation note Encounter Date [...] obesity (ICD-10 - E66.01) advised weight loss [facility] Other 07-31-2023 Evaluation note* Encounter Date Diagnosis [...] pain of left shoulder (ICD-10 - M25.512) [facility] Other 06-15-2023 Evaluation + Plan note Diagnostic Tests Pending * Urine Culture 05/16/23 [facility]01-17-2023 Evaluation note* Encounter Date Diagnosis Assessment Notes Treatment Notes Treatment Clinical Notes Dec, Dislocation of right shoulder joint, subsequent encounter (ICD-10 - S43.004D) Patient instructed on gentle motion and strength exercise. We will consider an MRI of the shoulder to rule out a rotator cuff tear, if patient has increased pain. We will f/u in 6-8 weeks, or sooner if patient needs [facility] Other 12-20-2022 Evaluation note* Encounter Date Diagnosis [...] age range than in a younger person. [facility] Other 11-29-2022 Evaluation note* Encounter Date Diagnosis [...] follows with her PCP for hyperlipidemia management [facility] Other 09-26-2022 NotePROCEDURE: XR SHOULDER LT 2V or > HISTORY: Pain of left shoulder joint COMPARISON: None. FINDINGS: BONES:No fracture, dislocation, bone lesion. Narrowing and mild degenerative changes of the acromioclavicular joint. SOFT TISSUES:No visible soft tissue swelling. EFFUSION:None visible. OTHER: Negative. IMPRESSION: 1. No acute bone abnormality. Electronically authenticated by: ADAMS RAGSDALE Date: 2022-08-27 21:59[facility]09-26-2022 NotePROCEDURE: XR FEMUR RT HISTORY: Pain in right leg after falling COMPARISON: None. FINDINGS: BONES:Mild degenerative changes of hip joint. Right knee replacement. No fracture or dislocation. SOFT TISSUES:No visible soft tissue swelling. EFFUSION:None visible. OTHER: Negative. IMPRESSION: 1. No acute bone abnormality. Electronically authenticated by: ADAMS RAGSDALE Date: 2022-08-27 21:56[facility]09-26-2022 NotePROCEDURE: XR ELBOW RT MIN [...] Electronically authenticated by: ADAMS RAGSDALE Date: 2022-08-27 21:53[facility]09-26-2022 NotePROCEDURE: XR ELBOW RT MIN [...] Electronically authenticated by: ADAMS RAGSDALE Date: 2022-08-27 21:53[facility]06-14-2022 Evaluation note* Encounter Date Diagnosis [...] Hyperlipidemia, unspecified hyperlipidemia type (ICD-10 - E78.5) [facility] Other [id number] History general Narrative - Reported* Type Description Date Medical History guillan-barre 2003 Medical History DM Medical History shingles Medical History DE 06/2018 Medical History heart attack Medical History PARESTHESIA Medical History [place] Medical History MACROGLOSSIA Surgical History back surgery 2011 Surgical History meniscus repair left knee Surgical History hysterectomy 2016 Surgical History 2 heart stents 06/2018 Surgical History right TKA 03/04/18 Hospitalization History see above [facility] Other Evaluation + Plan note Future Appointments Appointment Date:11/21/2023 10:30:00 AM Scheduled Provider:BRIGIDA GRAHAM PA-C Location:Critical access hospital [facility] Future Appointments Appointment Date:02/24/2024 10:15:00 AM Scheduled Provider:Jose Snow MD Location:[facility] Appointment Type: Open Appointment Date:02/27/2024 11:15:00 AM Scheduled Provider:BRIGIDA GRAHAM PA-C Location:Critical access hospital Appointment Type:URO Office Visit [facility] Evaluation + Plan note Future Appointments Appointment Date:02/04/2024 11:20:00 AM Scheduled Provider:BRIGIDA GRAHAM PA-C Location:[facility] Appointment Type:URO Office Visit Appointment Date:02/24/2024 10:15:00 AM Scheduled Provider:Jose Snow MD [facility] App[facility] Type:FM Open Appointment Date:03/03/2024 02:00:00 PM Scheduled Provider:BRIGIDA GRAHAM PA-C Location:[facility] App[facility]ment Type:[facility]O [facility] Future Appointments Appointment Date:03/23/2024 09:30:00 AM Scheduled Provider: Location:[facility] Appointment Type:Urology CALL PAT FT Appointment Date:03/30/2024 02:30:00 PM Scheduled Provider: Location:[facility] Appointment Type:Urology FT Appointment Date:04/28/2024 01:00:00 PM Scheduled Provider: Location:[facility] Appointment Type: Medicare Wellness Subsequent Appointment Date:04/28/2024 02:00:00 PM Scheduled Provider:[facility]:FM Open Diagnostic Tests Pending * C-Peptide 02[facility]25/24 [facility] Future Appointments Appointment Date:03/23/2024 09:30:00 AM Scheduled Provider: Location:[facility] Appointment Type:Urology CALL PAT FT Appointment Date:03/30/2024 02:30:00 PM Scheduled Provider: Location:[facility] Appointment Type:Urology FT Appointment Date:04/28/2024 01:00:00 PM Scheduled Provider: [facility] Type: Medicare Wellness Subsequent Appointment Date:04/28/2024 02:00:00 PM Scheduled Provider:Jose Snow MD [facility] Type: Open Diagnostic Tests Pending * PTH Intact 02/25/24 [facility] Future Appointments Appointment Date:03/23/2024 09:30:00 AM Scheduled Provider: Location:[facility] Appointment Type:Urology CALL PAT FT Appointment Date:03/30/2024 02:30:00 PM Scheduled Provider: Location:[facility] Appointment Type:Urology FT Appointment Date:04/28/2024 01:00:00 PM Scheduled Provider: [facility] App[facility] Type: Medicare Wellness Subsequent Appointment Date:04/28/2024 02:00:00 PM Scheduled Provider:Jose Snow MD [facility] App[facility] Type: Open [facility] evaluation + Plan note Future Appointments Appointment Date:04/28/2024 01:00:00 PM Scheduled Provider: [facility] App[facility] Type: Medicare Wellness Subsequent Appointment Date:04/28/2024 02:00:00 PM Scheduled Provider:Jose Snow MD Location:[facility] Appointment Type:FM Open Appointment Date:05/15/2024 11:00:00 AM Scheduled Provider:BRIGIDA GRAHAM PA-C Location:[facility] Appointment Type:URO [facility] Future Appointments Appointment Date:07/15/2024 02:45:00 PM Scheduled Provider:Joe BOOTH MD Location:[facility] Appointment Type:URO Office Visit Appointment Date:12/03/2024 09:15:00 AM Scheduled Provider:Jose Snow MD [facility] App[facility] Type:FM Open Appointment Date:05/03/2025 09:30:00 AM Scheduled Provider: Location:[facility] Appointment Type: Medicare Wellness Subsequent [facility] Evaluation noteNo InformationNort [employer] Other Evalutxbbl noteNo assessment information available [facility] Work Phone: Evaluation note* Diagnosis 2-vessel coronary artery disease- Primary Essential hypertension Unspecified essential hypertension Mixed hyperlipidemia H/O non-ST elevation myocardial infarction (NSTEMI) Post PTCA Postsurgical percutaneous transluminal coronary angioplasty status Morbid obesity (CMS/HCC) Morbid obesity documented in this encounter [facility] Work Phone: Evaluation note* Diagnosis Onset Date Resolution Status Anemia acute Chronic kidney disease, stage 3b acute Hypertensive nephropathy acu te Hypokalemia acute Localized edema acute Neuropathy acute Type 2 diabetes mellitus with diabetic nephropathy acute Urinary incontinence acute HLD (hyperlipidemia) chronic Morbid obesity chronic [facility] Work Phone: Evaluation note* Diagnosis 2-vessel coronary [...] (Multi) Morbid obesity documented in this encounter [facility] Work Phone: Evaluation note* Diagnosis 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 * Nausea and Vomiting: After Surgery (Georgian) * Surgery: Post-op Bleeding (Georgian) documented in this encounterBON [facility] note No data available for this section [facility] Consultation (Routine) - Authorized Specialty Diagnoses / Procedures Referred By Radha lopez Referred To Contact Cardiology Diagnoses 2-vessel coronary artery disease Essential hypertension Mixed hyperlipidemia Procedures Follow Up In Cardiology Cinthia Vazquez MD [address] [facility] 2, [address] [address] Cinthia Vazquez MD [address] [facility] 2, [address] [address] Referral ID Status Reason Start Date Expiration Date V isits Requested Visits Authorized [id number] Authorized 01/09/2024 01/08/2025 1 1 [facility] Work Phone: Summary Purpose Family History [...] ECG 12 Lead Cinthia Vazquez MD [address] [place] [address], [address] [address] Referral ID Status Reason Start Date Expiration Date V isits Requested Visits Authorized [id number] Authorized 05/08/2024 05/08/2025 1 1 Additional Source Comments INFORMATION SOURCE (unrecogn ized section and content) DATE CREATED AUTHOR [facility]/19/2021 [facility] DATE CREATED AUTHOR AUTHOR'S ORGANIZ ATION 04/07/2023 [facility] DATE CREATED AUTHOR AUTHOR'S ORGANIZ ATION 04/07/2023 [facility] DATE CREATED AUTHOR AUTHOR'S ORGANIZ ATION 05/11/2023 [facility] DATE CREATED AUTHOR AUTHOR'S ORGANIZ ATION 08/08/2023 [facility] DATE CREATED AUTHOR AUTHOR'S ORGANIZ ATION 05/08/2024 [facility] DATE CREATED AUTHOR AUTHOR'S ORGANIZ ATION 05/17/2024 [facility] DATE CREATED AUTHOR AUTHOR'S ORGANIZ ATION 05/28/2024 [facility] REASON FOR VISIT (unrecogniz ed section and content) Reason Comments Follow-up 9 months Reason Comments Follow-up Poc surgery 05-11-24 dr peters Specialty Diagnoses / Procedures Referred By Radha lopez Referred To Contact Diagnoses Preop cardiovascular exam Procedures ECG 12 Lead Cinthia Vazquez MD [address] [facility], [address] [address] Referral ID Status Reason Start Date Expiration Date V isits Requested Visits Authorized [id number] Authorized 05/08/2024 05/08/2025 1 1 Specialty Diagnoses / Procedures Referred By Radha lopez Referred To Contact Diagnoses Macular puckering, left eye Macular puckering, left eye [H35.372] Procedures ID VITRECTOMY PARS PLANA REMOVE PRERETINAL MEMBRANE LEFT EYE PARS PLANA VITRECTOMY 25 GAUGE MACULAR PUCKER REPAIR POSSIBLE LASER POSSIBLE GAS FLUID EXCHANGE Micheal Peters MD [address] [place] [address] [facility] [address] [place] [address] Referral ID Status Reason Start Date Expiration Date Visits Re quested Visits Authorized [id number] 1 1 Patient Care team informatio n [...] Active Anjana Pal APRN Attending Provider Active Farm Operator Relationship Specialty Start Date End Date Jose Snow MD [address] [facility] [place] [address] PCP - General Family Medicine 01/09/24 Farm Operator Relationship Specialty Start Date End Date Jose Snow MD [address] [facility] [place] [address] PCP - General Family Medicine 01/09/24 Farm Operator Relationship Specialty Start Date End Date Cinthia Vazquez MD [address] [place] [id number] PCP - General Internal Medicine 12/26/23 Goals [...] surgery) 1443 (New Bag - Prov ider: Jorge Benavidez, STOCK BROKER SUPERVISOR - FOOD BEVERAGE SUPERVISOR)1528 (Stopped - Provider: Jorge Benavidez APRN - FOOD BEVERAGE SUPERVISOR) atropine 1 % ophthalmic solution (CANCELED) PRN, Starting on Sat05/11/24 at 1515, Until Sat05/11/24 at 1537, Intra-op 1515 (Given - Provid er: Micheal Peters MD) balanced salts plus (BSS) ophthalmic solution (CANCELED) PRN, Starting on Sat05/11/24 at 1500, Intra-op 1500 (Given - Provid er: Micheal Peetrs MD) BUPivacaine (PF) (MARCAINE) 0.75 % 7.5 mL, lidocaine 2 % 7.5 mL, hyaluronidase human (HYLENEX) 1 mL (CANCELED) PRN, Starting on Sat05/11/24 at 1451, Intra-op 1451 (Given - Provid er: Micheal Peters MD) ceFAZolin (ANCEF) injection (CANCELED) PRN, Starting on Sat05/11/24 at 1505, Until Sat05/11/24 at 1537, Intra-op 1505 (Given - Provid er: Micheal Peters MD) cyclopentolate (CYCLOGYL) 1 % ophthalmic solution 1 drop (COMPLETED) 1 drop, Left Eye, EVERY 10 MIN PRN, 3 doses, Starting on Sat05/11/24 at 1319, Until Sat05/11/24 at 1352, preop, To left eye for 3 doses every 10 minutes, starting 1 hour prior to surgery , RP - enter number of doses based on parameters defined by the physician in the admin. comments., Pre-op (day of surgery) 1335 (Given - Provid er: Radha Flores RN)1343 (Given - Provider: Radha Flores RN)1352 (Given - Provider: Radha Flores RN) dexAMETHasone (PF) (DECADRON) injection (CANCELED) PRN, Starting on Sat05/11/24 at 1507, Until Sat05/11/24 at 1537, Intra-op 1507 (Given - Provid er: Micheal Peters MD) phenylephrine (MYDFRIN) 2.5 % ophthalmic solution 1 drop (COMPLETED) 1 drop, Left Eye, EVERY 10 MIN PRN, 3 doses, Starting on 05/11/24 at 1318, Until 05/11/24 at 1433, preop, To left eye for [...] PRN, Starting on Sat05/11/24 at 1510, Until 05/11/24 at 1537, Intra-op 1510 (Given - Provid er: Micheal Peters MD - Comment: diluted in 2ml bss per dr's request) tropicamide (MYDRIACYL) 1 % ophthalmic solution 1 drop (COMPLETED) 1 drop, Left Eye, EVERY 10 MIN PRN, 3 doses, Starting on Sat05/11/24 at 1318, Until 05/11/24 at 1350, preop, To left eye for [...] BE BASED ON THE PRIMARY CLINICAL RECORDS. [facility] provides no warranty or guarantee of the accuracy or completeness of information in this document.
[2024-06-08 10:43] LABS: Hematocrit 37.5 % (36.0-48.0); Hemoglobin 11.9 g/dL (12.0-16.0); Mean Corpuscular HGB Conc 31.7 g/dL (29.9-35.2); Mean Corpuscular Hemoglobin 29.9 pg (26.7-34.0); Mean Corpuscular Volume 94.2 fL (81.0-99.0); Mean Platelet Volume 10.8 fL (9.5-13.5); Platelet Count 225 10^3/uL (150-450); Red Blood Count 3.98 10^6/uL (4.20-5.40); Red Cell Distribution Width 14.1 % (11.0-15.0); White Blood Count 6.6 10^3/uL (4.0-11.0)
[2024-06-08 10:59] LABS: Albumin Level 3.5 g/dL (3.4-5.0); Anion Gap 11.8; BUN Creatinine Ratio 15.7; Calcium 9.2 mg/dL (8.5-10.1); Carbon Dioxide 29.9 mmol/L (21.0-32.0); Chloride 105 mmol/L (98-107); Estimated GFR (African America 39 (>=60); Estimated GFR (Non-African Ame 32 (>=60); Glucose 117 mg/dL (74-106); Magnesium 2.1 mg/dL (1.8-2.4); Phosphorus 4.3 mg/dL (2.6-4.7); Potassium 3.7 mmol/L (3.5-5.1); Sodium 143 mmol/L (136-145); Uric Acid 4.6 mg/dL (2.6-6.0)
[2024-06-08 11:05] LABS: Microalbum Creatinine Ratio Ur 24.1 mg/g (0.0-29.9); Microalbumin Urine Random 5.1 mg/dL (<=30.0); Protein Creatinine Ratio Urine 0.14; Total Protein Urine Random 30.3 mg/dL (<=11.9)
[2024-06-08 11:48] LABS: Bilirubin Urine NEGATIVE (NEGATIVE); Blood Urine LARGE (NEGATIVE); Clarity Urine CLEAR (CLEAR); Color Urine YELLOW (YELLOW); Glucose Urine UA NEGATIVE (NEGATIVE); Ketones Urine NEGATIVE (NEGATIVE); Leukocyte Esterase Urine TRACE (NEGATIVE); Nitrite Urine NEGATIVE (NEGATIVE); Protein Urine NEGATIVE (NEG/TRACE); Specific Gravity Urine 1.025 (1.005-1.025); Urobilinogen Urine 0.2 EU/dL (0.2-1.0); pH Urine 5.5 (5.0-9.0)
[2024-06-09 14:13] LABS: PTH, Intact 13 pg/mL (15-65)
== END 2024-06-08 09:36 | disposition home or self-care (01) ==
LOC: LAB 09:37
PROVIDERS: PCP Family Medicine; Visit Provider Internal Medicine Nephrology
DX: E78.5 Hyperlipidemia, unspecified (principal); Z11.59 Encounter for screening for other viral diseases; E87.6 Hypokalemia; R32 Unspecified urinary incontinence; D64.9 Anemia, unspecified; R60.0 Localized edema; G62.9 Polyneuropathy, unspecified; I12.9 Hypertensive chronic kidney disease with stage 1 through stage 4 chronic kidney disease, or unspecified chronic kidney disease; N18.32 Chronic kidney disease, stage 3b
CPT/HCPCS: 36415; 80069; 81003; 82043; 82306; 82570; 82607; 82746; 83735; 83970; 84156; 84550; 85027; 86803